=== PATIENT | female | born 1965 | race Caucasian/White ===

== ENCOUNTER 2022-05-16 11:20 | Inpatient (IN) ==
--- NOTE | 2022-05-16 11:52 | Emergency Department Note ---
Impression & Plan Acute hypoxemic respiratory failure, Elevated troponin, KARLA (acute kidney injury), Anemia, Elevated lactic acid level, Thrombocytopenia, Acute exacerbation of chronic obstructive pulmonary disease ED Provider Note NAME: CYNTHIA SIMON AGE: 56 SEX: F : 1965 ARRIVES VIA: Ambulance INFORMANT: Patient, ED PROVIDER(S): Alf Reagan MD Chief Complaint: Lethargy, possible withdrawal HPI: Patient presents via EMS on 4 L nasal cannula due to concern for some lethargy and associated possible withdrawal as the patient did not dosed her methadone. Patient denies any chest pains or shortness of breath. Patient does admit to drinking alcohol last evening as well as taking extra Xanax. Patient states that she was taking it because she felt depressed. The patient did not take it with the intent to try to harm her self. Patient denies any leg swelling or calf pain. Patient does have a history of COPD. The patient is a smoker. Patient denies any falls or trauma. Patient does admit some vomiting last evening. ROS: See HPI for pertinent positives and negatives. A total of 10 systems were reviewed and otherwise negative. Past medical history: See below Surgical history: See below Social history: See below Physical Exam: GENERAL: Fatigued in appearance, EYE EXAM: Normal conjunctiva. PERRL, no anisocoria and EOM's grossly intact w/o pain. Oropharynx: Poor dentition. NECK: Supple, no nuchal rigidity, no adenopathy, non-tender. No signs of meningismus. FROM of the neck with good chin to chest and neck extension. No stridor. LUNGS: Coarse sounds and wheezes noted normal chest wall mechanics. HEART: NSR, no MRG. ABDOMEN: Abdomen soft, non-tender, normo-active bowel sounds, no masses, no r ebound or guarding. BACK: No CVA TTP. SKIN: No rashes and no bruising. UPPER EXTREMITIES: Upper extremities are grossly normal. LOWER EXTREMITIES: Grossly normal, no edema. NEURO EXAM: Easily arousable, follows commands, cranial nerves II-XII grossly intact, normal speech, moves all 4 extremities. Differential diagnoses: Reactive airway disease, pneumonia, pneumothorax, COPD, CHF, infections, cardiac ischemia, pulmonary embolism, musculoskeletal, gastrointestinal, as well as other pathologies. Course: Patient was seen and evaluated the bedside. Full history physical exam was performed. EKG interpreted by me Normal sinus rhythm, rate of 83, normal intervals, normal axis, no obvious ST elevations. Nonspecific ST abnormality noted. No prior EKGs for comparison Imaging Studies: See Below Cardiac monitoring: An order was placed for continuous cardiac monitoring. The monitor shows a rate of 85 with sinus rhythm. MDM: Patient presents due to concern for possible withdrawal and lethargy. Patient on room air was 75%. Patient also had vomited last evening in the setting of alcohol and benzodiazepine use. Possibility of aspiration. Patient does have a history of COPD and is a smoker with some wheezes. The patient was ordered blood work VBG troponin empiric antibiotics blood cultures and a lactate. The patient did have difficulty with IV stick. Patient was placed on BiPAP. She was also given a dose of Narcan. Narcan did make the patient more restless and caused an episode of vomiting. No aspiration as patient was able to take the mask off. Patient was given several rounds of Ativan for her restlessness. Patient further tolerated the BiPAP thereafter. Patient easily arousable. Patient did become more restless with the Narcan. Patient was given additional Ativan. Patient blood work was difficult to obtain but another IV was established. The patient has a white count of 6 with a hemoglobin of 7.9. Platelet count is low. Patient's ABG shows a pH of 7 3 with a PCO2 of 64. The patient does have mild kidney dysfunction with a creat of 1.8. Patient's initial lactate E. Patient was ordered additional IV fluids. The patient's calcium and magnesium were low and were ordered for replacement. Patient's initial troponin of 611. The patient has no abdominal pain and denies any shortness of breath or chest pains. Patient did have a rectal exam with roving weight gauger nurse Nereida which was negative. Patient has shown clinical improvement on the BiPAP. Patient did receive the empiric antibiotics. I did speak with the on-call hospitalist PAYAL Fitzgerald and the patient was admitted by Dr. Mercado. Critical Care: I have personally spent 122 minutes of critical care time in direct management of this patient. This includes bedside care, interpretation of diagnostic studies, and testing, discussion with consultants, patient, and family members, and other require inpatient management activities. This 122 minutes is in excess of all separately billable procedures. Past Med/Surg History Medical History COPD (chronic obstructive pulmonary disease) GERD (gastroesophageal reflux disease) Hepatitis C test positive HTN (hypertension) Lactic acidosis Methadone maintenance therapy patient Recurrent major depressive disorder Tobacco abuse Surgical History Status post total hip replacement, right Family History Other Family history non-contributory Social History Smoking Status: Current some day smoker Tobacco Type: Cigarettes Hx Alcohol Use: Yes Hx Substance Use: Yes Feels Safe at Home: Yes Allergies Allergies Allergy/AdvReac Type Severity Reaction Status Date / Time No Known Allergies Allergy Verified 05/16/22 16:53 Home Meds Home Medications Medication Instructions Recorded Confirmed amlodipine 10 mg tablet 10 mg PO DAILY 05/16/22 05/16/22 duloxetine 30 mg capsule,delayed 30 mg PO DAILY 05/16/22 05/16/22 release hydroxyzine HCl 25 mg tablet 25 - 50 mg PO HS PRN Insomnia 05/16/22 05/16/22 methadone 40 mg soluble tablet 106 mg PO DAILY 05/16/22 05/16/22 metoprolol succinate 25 mg 25 mg PO BID 05/16/22 05/16/22 tablet,extended release 24 hr omeprazole 20 mg capsule,delayed 20 mg PO DAILY 05/16/22 05/16/22 release Results & Data (ED) Vital Signs Vital Signs - 24 hr 05/16/22 11:30 05/16/22 11:30 05/16/22 12:22 Temperature 36.7 C Temperature Source Oral Pulse Rate 82 79 Pulse Rate [Right Finger] Pulse Rate from SpO2 Sensor Pulse Rhythm Regular Pulse Rhythm [Right Finger] Pulse Strength Normal Pulse Strength [Right Finger] Respiratory Rate 20 22 Respiratory Effort / Characteristics Non-Labored Spontaneous Respiratory Depth Normal Normal Respiratory Pattern Regular Regular Blood Pressure 95/61 L Blood Pressure [Right Arm] Blood Pressure Mean 72 Blood Pressure Mean [Right Arm] Blood Pressure Position Lying Blood Pressure Position [Right Arm] Pulse Oximetry 98 75 L 98 Oxygen Delivery Method Nasal Cannula Nasal Cannula Oxygen Flow Rate 5 0 Fraction of Inspired Oxygen 35 SaO2/FiO2 Ratio Sepsis Recent Fever Within 48 Hours No Sepsis New/Unexplained Change in Mental Status No Sepsis Action Taken by Nursing No Action Required Oxygen Flow Rate - Titration 5 Pulse Oximetry Post Tiitration 98 05/16/22 12:25 05/16/22 14:00 05/16/22 14:56 Temperature Temperature Source Pulse Rate 86 Pulse Rate [Right Finger] 80 82 Pulse Rate from SpO2 Sensor Pulse Rhythm Pulse Rhythm [Right Finger] Regular Pulse Strength Pulse Strength [Right Finger] Normal Respiratory Rate 22 18 Respiratory Effort / Characteristics Non-Labored Spontaneous Non-Labored Respiratory Depth Normal Respiratory Pattern Regular Blood Pressure Blood Pressure [Right Arm] 115/58 L Blood Pressure Mean Blood Pressure Mean [Right Arm] 77 Blood Pressure Position Blood Pressure Position [Right Arm] Lying Pulse Oximetry 98 95 96 Oxygen Delivery Method BiPAP BiPAP BiPAP Oxygen Flow Rate Fraction of Inspired Oxygen 35 37 37 SaO2/FiO2 Ratio 256 259 Sepsis Recent Fever Within 48 Hours Sepsis New/Unexplained Change in Mental Status Sepsis Action Taken by Nursing Oxygen Flow Rate - Titration Pulse Oximetry Post Tiitration 05/16/22 12:30 05/16/22 12:40 05/16/22 12:50 Temperature Temperature Source Pulse Rate 76 85 87 Pulse Rate [Right Finger] Pulse Rate from SpO2 Sensor 84 Pulse Rhythm Pulse Rhythm [Right Finger] Pulse Strength Pulse Strength [Right Finger] Respiratory Rate 21 35 H 16 Respiratory Effort / Characteristics Respiratory Depth Respiratory Pattern Blood Pressure Blood Pressure [Right Arm] Blood Pressure Mean Blood Pressure Mean [Right Arm] Blood Pressure Position Blood Pressure Position [Right Arm] Pulse Oximetry 95 Oxygen Delivery Method Oxygen Flow Rate Fraction of Inspired Oxygen SaO2/FiO2 Ratio Sepsis Recent Fever Within 48 Hours Sepsis New/Unexplained Change in Mental Status Sepsis Action Taken by Nursing Oxygen Flow Rate - Titration Pulse Oximetry Post Tiitration 05/16/22 13:00 05/16/22 13:10 05/16/22 14:00 Temperature Temperature Source Pulse Rate 87 89 89 Pulse Rate [Right Finger] Pulse Rate from SpO2 Sensor Pulse Rhythm Pulse Rhythm [Right Finger] Pulse Strength Pulse Strength [Right Finger] Respiratory Rate 21 27 H 27 H Respiratory Effort / Characteristics Respiratory Depth Respiratory Pattern Blood Pressure 115/58 L Blood Pressure [Right Arm] Blood Pressure Mean 77 Blood Pressure Mean [Right Arm] Blood Pressure Position Blood Pressure Position [Right Arm] Pulse Oximetry 100 Oxygen Delivery Method Oxygen Flow Rate Fraction of Inspired Oxygen SaO2/FiO2 Ratio Sepsis Recent Fever Within 48 Hours Sepsis New/Unexplained Change in Mental Status Sepsis Action Taken by Nursing Oxygen Flow Rate - Titration Pulse Oximetry Post Tiitration 05/16/22 15:00 Temperature Temperature Source Pulse Rate 81 Pulse Rate [Right Finger] Pulse Rate from SpO2 Sensor Pulse Rhythm Pulse Rhythm [Right Finger] Pulse Strength Pulse Strength [Right Finger] Respiratory Rate 23 Respiratory Effort / Characteristics Respiratory Depth Respiratory Pattern Blood Pressure 107/62 Blood Pressure [Right Arm] Blood Pressure Mean 77 Blood Pressure Mean [Right Arm] Blood Pressure Position Blood Pressure Position [Right Arm] Pulse Oximetry 93 Oxygen Delivery Method Oxygen Flow Rate Fraction of Inspired Oxygen SaO2/FiO2 Ratio Sepsis Recent Fever Within 48 Hours Sepsis New/Unexplained Change in Mental Status Sepsis Action Taken by Nursing Oxygen Flow Rate - Titration Pulse Oximetry Post Tiitration Home Medications Current Medication List: was personally reviewed by me Laboratory Data Attestation: I reviewed the patient's lab results. Result diagrams: 05/16/22 13:09 05/16/22 13:09 Lab Results 05/16/22 05/16/22 05/16/22 Range/Units 12:26 12:36 13:09 WBC 6.88 (4.8-10.8) K/ul RBC 2.66 L (3.93-5.22) M/uL Hgb 7.9 L (12.0-16.0) g/dl Hct 27.6 L (34.1-44.9) % MCV 103.8 H (80.0-100.0) fL MCH 29.7 (25.0-34.0) pg MCHC 28.6 L (32.0-36.0) g/dL RDW Std Deviation 70.0 H (36.4-46.3) fL RDW Coeff of Cee 18.5 H (11.5-14.5) % Plt Count 45 L (130-400) K/uL MPV 10.1 (9.4-12.3) fL Immature Gran % (Auto) 1.5 % Neut % (Auto) 80.1 % Lymph % (Auto) 9.9 % [place] % (Auto) 8.4 % Eos % (Auto) 0.0 % Baso % (Auto) 0.1 % Neut # (Auto) 5.51 (1.4-6.5) K/uL Lymph # (Auto) 0.68 L (1.2-3.4) K/uL [place] # (Auto) 0.58 (0.24-0.82) K/uL Eos # (Auto) 0.00 (0-0.50) K/uL Baso # (Auto) 0.01 (0-0.2) K/uL Immature Gran # (Auto) 0.10 H (0.00-0.02) K/uL Absolute Nucleated RBC 0.06 H (0-0) K/uL Nucleated RBC % (auto) 0.9 % Echinocytes 1+ Peripher Smr Path Cons ABG pH ABG pCO2 ABG pO2 ABG HCO3 ABG O2 Saturation ABG Base Excess Shawn Test Barometric Pressure Oxygen Given Sodium (136-145) mmol/L Potassium (3.5-5.1) mmol/L Chloride (98-107) mmol/L Carbon Dioxide (21-32) mmol/L Anion Gap (3-11) BUN (6-23) mg/dl Creatinine (0.6-1.2) mg/dl Est Cr Clr Drug Dosing ml/min Est GFR ( Amer) ml/min Est GFR (Non-Af Amer) ml/min BUN/Creatinine Ratio (10-20) Glucose (70-99(Fasting)) mg/dl Lactate (0.4-2.0) mmol/L Calcium (8.5-10.1) mg/dl Magnesium (1.7-2.4) mg/dl Iron 23 L (35-150) mcg/dl Transferrin 365 H (200-360) mg/dl Ferritin 55.5 (8-388) ng/ml Total Bilirubin (0.2-1.0) mg/dl AST (13-39) U/L ALT (7-52) U/L Alkaline Phosphatase (34-104) U/L Troponin I High Sens (0-14) pg/ml Total Protein (6.0-8.3) gm/dl Albumin (3.4-5.0) gm/dl Globulin (2.5-4.0) gm/dl Albumin/Globulin Ratio (0.9-2) Procalcitonin (0-0.5) ng/ml Salicylates (3.0-30) mg/dl Acetaminophen (10-30) ug/ml Ethyl Alcohol mg/dL (<10.0) mg/dl Anaplasma Smear See Comment SARS-CoV-2 (PCR) NEGATIVE (Negative) Influenza Type A (PCR) Negative (Neg) Influenza Type B (PCR) Negative (Neg) RSV (RT-PCR) Negative (Neg) 05/16/22 05/16/22 05/16/22 Range/Units 13:09 13:09 13:43 WBC (4.8-10.8) K/ul RBC (3.93-5.22) M/uL Hgb (12.0-16.0) g/dl Hct (34.1-44.9) % MCV (80.0-100.0) fL MCH (25.0-34.0) pg MCHC (32.0-36.0) g/dL RDW Std Deviation (36.4-46.3) fL RDW Coeff of Cee (11.5-14.5) % Plt Count (130-400) K/uL MPV (9.4-12.3) fL Immature Gran % (Auto) % Neut % (Auto) % Lymph % (Auto) % [place] % (Auto) % Eos % (Auto) % Baso % (Auto) % Neut # (Auto) (1.4-6.5) K/uL Lymph # (Auto) (1.2-3.4) K/uL [place] # (Auto) (0.24-0.82) K/uL Eos # (Auto) (0-0.50) K/uL Baso # (Auto) (0-0.2) K/uL Immature Gran # (Auto) (0.00-0.02) K/uL Absolute Nucleated RBC (0-0) K/uL Nucleated RBC % (auto) % Echinocytes Peripher Smr Path Cons ABG pH ABG pCO2 ABG pO2 ABG HCO3 ABG O2 Saturation ABG Base Excess Shawn Test Barometric Pressure Oxygen Given Sodium 142 (136-145) mmol/L Potassium 3.9 (3.5-5.1) mmol/L Chloride 96 L (98-107) mmol/L Carbon Dioxide 23 (21-32) mmol/L Anion Gap 23 H (3-11) BUN 21 (6-23) mg/dl Creatinine 1.80 H (0.6-1.2) mg/dl Est Cr Clr Drug Dosing 44.8 ml/min Est GFR ( Amer) 36.3 ml/min Est GFR (Non-Af Amer) 31.4 ml/min BUN/Creatinine Ratio 11.7 (10-20) Glucose 123 H (70-99(Fasting)) mg/dl Lactate 5.3 H* (0.4-2.0) mmol/L Calcium 8.2 L (8.5-10.1) mg/dl Magnesium 1.5 L (1.7-2.4) mg/dl Iron (35-150) mcg/dl Transferrin (200-360) mg/dl Ferritin (8-388) ng/ml Total Bilirubin 0.9 (0.2-1.0) mg/dl AST 62 H (13-39) U/L ALT 27 (7-52) U/L Alkaline Phosphatase 120 H (34-104) U/L Troponin I High Sens 611.5 H* (0-14) pg/ml Total Protein 6.4 (6.0-8.3) gm/dl Albumin 3.1 L (3.4-5.0) gm/dl Globulin 3.3 (2.5-4.0) gm/dl Albumin/Globulin Ratio 0.9 (0.9-2) Procalcitonin (0-0.5) ng/ml Salicylates (3.0-30) mg/dl Acetaminophen (10-30) ug/ml Ethyl Alcohol mg/dL (<10.0) mg/dl Anaplasma Smear Cancelled SARS-CoV-2 (PCR) (Negative) Influenza Type A (PCR) (Neg) Influenza Type B (PCR) (Neg) RSV (RT-PCR) (Neg) 05/16/22 05/16/22 05/16/22 Range/Units 13:43 14:32 14:32 WBC (4.8-10.8) K/ul RBC (3.93-5.22) M/uL Hgb (12.0-16.0) g/dl Hct (34.1-44.9) % MCV (80.0-100.0) fL MCH (25.0-34.0) pg MCHC (32.0-36.0) g/dL RDW Std Deviation (36.4-46.3) fL RDW Coeff of Cee (11.5-14.5) % Plt Count (130-400) K/uL MPV (9.4-12.3) fL Immature Gran % (Auto) % Neut % (Auto) % Lymph % (Auto) % [place] % (Auto) % Eos % (Auto) % Baso % (Auto) % Neut # (Auto) (1.4-6.5) K/uL Lymph # (Auto) (1.2-3.4) K/uL [place] # (Auto) (0.24-0.82) K/uL Eos # (Auto) (0-0.50) K/uL Baso # (Auto) (0-0.2) K/uL Immature Gran # (Auto) (0.00-0.02) K/uL Absolute Nucleated RBC (0-0) K/uL Nucleated RBC % (auto) % Echinocytes Peripher Smr Path Cons Cancelled ABG pH ABG pCO2 ABG pO2 ABG HCO3 ABG O2 Saturation ABG Base Excess Shawn Test Barometric Pressure Oxygen Given Sodium (136-145) mmol/L Potassium (3.5-5.1) mmol/L Chloride (98-107) mmol/L Carbon Dioxide (21-32) mmol/L Anion Gap (3-11) BUN (6-23) mg/dl Creatinine (0.6-1.2) mg/dl Est Cr Clr Drug Dosing ml/min Est GFR ( Amer) ml/min Est GFR (Non-Af Amer) ml/min BUN/Creatinine Ratio (10-20) Glucose (70-99(Fasting)) mg/dl Lactate (0.4-2.0) mmol/L Calcium (8.5-10.1) mg/dl Magnesium (1.7-2.4) mg/dl Iron (35-150) mcg/dl Transferrin (200-360) mg/dl Ferritin (8-388) ng/ml Total Bilirubin (0.2-1.0) mg/dl AST (13-39) U/L ALT (7-52) U/L Alkaline Phosphatase (34-104) U/L Troponin I High Sens (0-14) pg/ml Total Protein (6.0-8.3) gm/dl Albumin (3.4-5.0) gm/dl Globulin (2.5-4.0) gm/dl Albumin/Globulin Ratio (0.9-2) Procalcitonin (0-0.5) ng/ml Salicylates < 3.0 L (3.0-30) mg/dl Acetaminophen < 3 L (10-30) ug/ml Ethyl Alcohol mg/dL < 10.0 (<10.0) mg/dl Anaplasma Smear SARS-CoV-2 (PCR) (Negative) Influenza Type A (PCR) (Neg) Influenza Type B (PCR) (Neg) RSV (RT-PCR) (Neg) 05/16/22 05/16/22 05/16/22 Range/Units 14:32 14:33 15:15 WBC (4.8-10.8) K/ul RBC (3.93-5.22) M/uL Hgb (12.0-16.0) g/dl Hct (34.1-44.9) % MCV (80.0-100.0) fL MCH (25.0-34.0) pg MCHC (32.0-36.0) g/dL RDW Std Deviation (36.4-46.3) fL RDW Coeff of Cee (11.5-14.5) % Plt Count (130-400) K/uL MPV (9.4-12.3) fL Immature Gran % (Auto) % Neut % (Auto) % Lymph % (Auto) % [place] % (Auto) % Eos % (Auto) % Baso % (Auto) % Neut # (Auto) (1.4-6.5) K/uL Lymph # (Auto) (1.2-3.4) K/uL [place] # (Auto) (0.24-0.82) K/uL Eos # (Auto) (0-0.50) K/uL Baso # (Auto) (0-0.2) K/uL Immature Gran # (Auto) (0.00-0.02) K/uL Absolute Nucleated RBC (0-0) K/uL Nucleated RBC % (auto) % Echinocytes Peripher Smr Path Cons ABG pH Cancelled ABG pCO2 Cancelled ABG pO2 Cancelled ABG HCO3 Cancelled ABG O2 Saturation Cancelled ABG Base Excess Cancelled Shawn Test Cancelled Barometric Pressure Cancelled Oxygen Given Cancelled Sodium (136-145) mmol/L Potassium (3.5-5.1) mmol/L Chloride (98-107) mmol/L Carbon Dioxide (21-32) mmol/L Anion Gap (3-11) BUN (6-23) mg/dl Creatinine (0.6-1.2) mg/dl Est Cr Clr Drug Dosing ml/min Est GFR ( Amer) ml/min Est GFR (Non-Af Amer) ml/min BUN/Creatinine Ratio (10-20) Glucose (70-99(Fasting)) mg/dl Lactate 7.7 H* (0.4-2.0) mmol/L Calcium (8.5-10.1) mg/dl Magnesium (1.7-2.4) mg/dl Iron (35-150) mcg/dl Transferrin (200-360) mg/dl Ferritin (8-388) ng/ml Total Bilirubin (0.2-1.0) mg/dl AST (13-39) U/L ALT (7-52) U/L Alkaline Phosphatase (34-104) U/L Troponin I High Sens (0-14) pg/ml Total Protein (6.0-8.3) gm/dl Albumin (3.4-5.0) gm/dl Globulin (2.5-4.0) gm/dl Albumin/Globulin Ratio (0.9-2) Procalcitonin 0.29 (0-0.5) ng/ml Salicylates (3.0-30) mg/dl Acetaminophen (10-30) ug/ml Ethyl Alcohol mg/dL (<10.0) mg/dl Anaplasma Smear SARS-CoV-2 (PCR) (Negative) Influenza Type A (PCR) (Neg) Influenza Type B (PCR) (Neg) RSV (RT-PCR) (Neg) 05/16/22 Range/Units 15:15 WBC (4.8-10.8) K/ul RBC (3.93-5.22) M/uL Hgb (12.0-16.0) g/dl Hct (34.1-44.9) % MCV (80.0-100.0) fL MCH (25.0-34.0) pg MCHC (32.0-36.0) g/dL RDW Std Deviation (36.4-46.3) fL RDW Coeff of Cee (11.5-14.5) % Plt Count (130-400) K/uL MPV (9.4-12.3) fL Immature Gran % (Auto) % Neut % (Auto) % Lymph % (Auto) % [place] % (Auto) % Eos % (Auto) % Baso % (Auto) % Neut # (Auto) (1.4-6.5) K/uL Lymph # (Auto) (1.2-3.4) K/uL [place] # (Auto) (0.24-0.82) K/uL Eos # (Auto) (0-0.50) K/uL Baso # (Auto) (0-0.2) K/uL Immature Gran # (Auto) (0.00-0.02) K/uL Absolute Nucleated RBC (0-0) K/uL Nucleated RBC % (auto) % Echinocytes Peripher Smr Path Cons ABG pH Cancelled ABG pCO2 Cancelled ABG pO2 Cancelled ABG HCO3 Cancelled ABG O2 Saturation Cancelled ABG Base Excess Cancelled Shawn Test Cancelled Barometric Pressure Cancelled Oxygen Given Cancelled Sodium (136-145) mmol/L Potassium (3.5-5.1) mmol/L Chloride (98-107) mmol/L Carbon Dioxide (21-32) mmol/L Anion Gap (3-11) BUN (6-23) mg/dl Creatinine (0.6-1.2) mg/dl Est Cr Clr Drug Dosing ml/min Est GFR ( Amer) ml/min Est GFR (Non-Af Amer) ml/min BUN/Creatinine Ratio (10-20) Glucose (70-99(Fasting)) mg/dl Lactate (0.4-2.0) mmol/L Calcium (8.5-10.1) mg/dl Magnesium (1.7-2.4) mg/dl Iron (35-150) mcg/dl Transferrin (200-360) mg/dl Ferritin (8-388) ng/ml Total Bilirubin (0.2-1.0) mg/dl AST (13-39) U/L ALT (7-52) U/L Alkaline Phosphatase (34-104) U/L Troponin I High Sens (0-14) pg/ml Total Protein (6.0-8.3) gm/dl Albumin (3.4-5.0) gm/dl Globulin (2.5-4.0) gm/dl Albumin/Globulin Ratio (0.9-2) Procalcitonin (0-0.5) ng/ml Salicylates (3.0-30) mg/dl Acetaminophen (10-30) ug/ml Ethyl Alcohol mg/dL (<10.0) mg/dl Anaplasma Smear SARS-CoV-2 (PCR) (Negative) Influenza Type A (PCR) (Neg) Influenza Type B (PCR) (Neg) RSV (RT-PCR) (Neg) Administered Medications Doxycycline Hyclate 100 mg/ (Dextrose) 110 mls @ 50 mls/hr IV Q12H DAVID Stop: 05/30/22 16:59 Last Admin: 05/16/22 17:48 Dose: 50 mls/hr Documented By: HENRI Lactated Ringer's (Lr) 1,000 mls @ 125 mls/hr IV .Q8H DAVID Stop: 06/15/22 16:59 Last Admin: 05/16/22 17:47 Dose: 125 mls/hr Documented By: HENRI Discontinued Medications Albuterol (Albut/Ipratrop 3mg/0.5mg Neb 3 Ml Vial) 12 ml INH ONE STA Stop: 05/16/22 12:00 Last Admin: 05/16/22 12:29 Dose: 12 ml Documented By: KYLAH Sodium Chloride (Nss 1000ml) 1,000 mls @ 999 mls/hr IV .Q1H1M DAVID Stop: 05/16/22 13:00 Last Infusion: 05/16/22 14:53 Dose: 0 mls/hr Documented By: Admin: 05/16/22 12:34 Dose: 999 mls/hr Documented By: JOHNY Magnesium Sulfate/Dextrose (Magnesium Sulfate / D5w) 1 gm in 100 mls @ 100 mls/ hr IV NOW STA Stop: 05/16/22 12:59 Last Infusion: 05/16/22 14:52 Dose: 0 mls/hr Documented By: Admin: 05/16/22 12:33 Dose: 100 mls/hr Documented By: JOHNY Piperacillin Sod/Tazobactam Sod (Zosyn) 4.5 gm in 120 mls @ 240 mls/hr IV NOW ONE Stop: 05/16/22 12:32 Last Infusion: 05/16/22 16:28 Dose: 0 mls/hr Documented By: Admin: 05/16/22 14:00 Dose: 240 mls/hr Documented By: SAL Sodium Chloride (Nss 1000ml) 500 mls @ 999 mls/hr IV .Q31M ONE Stop: 05/16/22 14:46 Last Infusion: 05/16/22 16:00 Dose: 0 mls/hr Documented By: Admin: 05/16/22 15:29 Dose: 999 mls/hr Documented By: HENRI Calcium Gluconate () 1,000 mg in 60 mls @ 240 mls/hr IV NOW STA Stop: 05/16/22 14:31 Last Infusion: 05/16/22 15:44 Dose: 0 mls/hr Documented By: Admin: 05/16/22 15:29 Dose: 240 mls/hr Documented By: HENRI Sodium Chloride (Nss 1000ml) 1,000 mls @ 999 mls/hr IV .Q1H1M ONE Stop: 05/16/22 15:38 Last Infusion: 05/16/22 16:30 Dose: 0 mls/hr Documented By: Admin: 05/16/22 15:29 Dose: 999 mls/hr Documented By: HENRI Magnesium Sulfate/Dextrose (Magnesium Sulfate / D5w) 1 gm in 100 mls @ 100 mls/hr IV NOW STA Stop: 05/16/22 16:28 Last Infusion: 05/16/22 17:12 Dose: 0 mls/hr Documented By: Admin: 05/16/22 16:12 Dose: 100 mls/hr Documented By: HENRI Lactated Ringer's (Lr) 500 mls @ 999 mls/hr IV .Q31M ONE Stop: 05/16/22 17:09 Last Infusion: 05/16/22 18:52 Dose: 0 mls/hr Documented By: Admin: 05/16/22 17:47 Dose: 999 mls/hr Documented By: HENRI Lorazepam (Lorazepam 2 Mg/2 Ml Syr) 1 mg IV NOW STA; Protocol Stop: 05/16/22 12:52 Last Admin: 05/16/22 12:55 Dose: 1 mg Documented By: SAL Lorazepam (Lorazepam 2 Mg/2 Ml Syr) Confirm Administered Dose 2 mg .ROUTE .STK- MED ONE Stop: 05/16/22 12:53 Last Admin: 05/16/22 13:19 Dose: Not Given Documented By: AP Lorazepam (Lorazepam 2 Mg/2 Ml Syr) 1 mg IV NOW STA; Protocol Stop: 05/16/22 13:04 Last Admin: 05/16/22 13:10 Dose: 1 mg Documented By: AP Methylprednisolone (Methylprednisolone 125 Mg/2 Ml Vial) 125 mg IV NOW STA Stop: 05/16/22 12:00 Last Admin: 05/16/22 12:33 Dose: 125 mg Documented By: TW Naloxone HCl (Naloxone Hcl 0.4 Mg/1 Ml Vial/Carp) 0.4 mg IV NOW STA Stop: 05/16/22 12:06 Last Admin: 05/16/22 12:32 Dose: 0.4 mg Documented By: TW Naloxone HCl (Naloxone Hcl 0.4 Mg/1 Ml Vial/Carp) 0.4 mg IM NOW STA Stop: 05/16/22 12:20 Last Admin: 05/16/22 12:34 Dose: Not Given Documented By: TW Ondansetron HCl (Ondansetron Inj 2 Mg/Ml 2 Ml Vial) 4 mg IV NOW STA Stop: 05/16/22 12:48 Last Admin: 05/16/22 13:00 Dose: 4 mg Documented By: AP Imaging Data Radiologist's Impression: Chest X-Ray 05/16/22 00:00 XR chest 1V portable HISTORY: 56 years-old Female Dyspnea acute shortness of breath COMPARISON: None TECHNIQUE: Portable AP view of the chest FINDINGS: Cardiac silhouette is mildly enlarged. Pulmonary vascular congestion. Atherosclerosis of the thoracic aorta. There is no pneumothorax or large pleural effusion. Mild blunting of the lateral left costophrenic angle. Degenerative changes of the shoulders and spine. IMPRESSION: 1. Cardiomegaly with pulmonary vascular congestion. 2. Blunting of the lateral left costophrenic angle, likely secondary to atelectasis versus scarring. ACT 112: Negative or not required by law. The above report was generated using voice recognition software. It may contain grammatical, syntax or spelling errors. Electronically signed by: Raman Le M.D. 05/16/2022 1:55 PM Abdomen/Pelvis CT 05/16/22 15:[address] WITHOUT CONTRAST CT DOSE: 2334.85 mGy.cm HISTORY: sepsis, right upper quadrant abdominal pain TECHNIQUE: Multiaxial CT images of the abdomen and pelvis were performed without contrast. A dose lowering technique was utilized adhering to the principles of ALARA. COMPARISON STUDY: None. FINDINGS: Patchy bibasilar densities are better appreciated on the same day bee st CT. There is a right total hip arthroplasty. No fractures within the visualized osseous structures. Focal area of intraluminal gas within the left common femoral vein. This is indeterminate but could be due to prior intravenous line insertion. Mild body wall edema is noted. Small amount of sludge/stones noted within the gallbladder. No gallbladder wall thickening. Hepatic steatosis. The unenhanced pancreas and adrenal glands are unremarkable. There are few splenic calcified granulomas. Mild calcified plaque within the normal caliber abdominal aorta. No retroperitoneal or pelvic lymphadenopathy. A 2.2 cm hypodense lesion within the left kidney. This is incompletely characterized on this noncontrast study. No renal or ureteral stones. No hydronephrosis. The bladder is decompressed by a Ernandez catheter. The uterus and bilateral adnexa are within normal limits. Suboptimal evaluation for bowel pathology due to the lack of intravenous and oral contrast. However, there is no definite bowel wall thickening or obstruction. Normal appendix. There is a 2.1 cm hypodense lesion within the right lower quadrant adjacent to the iliac vessels on image 339. This is indeterminate but favors a benign lesion. IMPRESSION: 1. Patchy bibasilar densities are better appreciated on the same day chest CT. 2. No definite bowel wall thickening or obstruction. 3. Normal appendix. 4. No hydronephrosis. 5. Hepatic steatosis. 6. Small amount of sludge/stones within the gallbladder. No definite gallbladder wall thickening. 7. A 2.2 cm hypodense lesion within the right kidney. This is incompletely characterized on this noncontrast study but statistically represents a cyst. Follow-up nonemergent renal ultrasound recommended for confirmation. 8. An indeterminate 2.1 cm hypodense lesion within the right lower quadrant adjacent to the leg vessels. This is likely benign. 6 month abdomen and pelvis CT follow-up recommended to ensure stability. 9. Intraluminal gas within the left common femoral vein. This may be related to prior intravenous line insertion. ACT 112: Positive. There are findings on this exam that require communication between the performing entity and the patient following Patient Test Result Inf ormation Act ([place] Act 112) guidelines. Electronically signed by: John Bowers M.D. 05/16/2022 5:[address] 05/16/22 15:15 CT chest diagnostic wo con CT DOSE: HISTORY: sepsis, resp failure TECHNIQUE: Multiaxial CT images of the chest were performed without contrast. A dose lowering technique was utilized adhering to the principles of ALARA. COMPARISON: None. FINDINGS: Partial opacification of the bilateral lower lobe distal bronchi with patchy bibasilar densities within the base of the lower lobes. This is concerning for a pneumonia and could be due to aspiration. No pneumothorax. No pleural effusions. There is a calcified granuloma within the right lower lobe. There is a 5 mm nodular density within the right lung apex on image 65. There are few focal nodular airspace opacities within the right middle lobe. There are patchy groundglass densities within the upper lobes posteriorly. This could represent a combination of dependent change and pneumonia. No suspicious lytic or blastic osseous lesions. There is normal, healed left anterior second rib fracture. Hepatic steatosis. Small amount of fluid within the nondistended esoph lin. No mediastinal or hilar lymphadenopathy. The heart is mildly enlarged. Mild calcified plaque within the normal caliber thoracic aorta. No pericardial effusion. The main pulmonary measures up to 3.6 and recent diameter consistent with pulmonary arterial hypertension. There is mild interlobular septal thickening seen within the lungs. This could represent mild congestive change. IMPRESSION: 1. Partial opacification of the distal bilateral lobe bronchi with patchy bibasilar densities. This favors a pneumonitis and could be due to aspiration. 2. Mild cardiomegaly with mild interlobular septal thickening suggestive of mild congestive change. 3. Mild pulmonary arterial hypertension. 4. A 5 mm nodule within the right lung apex which could be due to the inflammatory/infectious change. [address] follow-up recommended to ensure resolution. 5. Additional patchy densities within the upper lobes posteriorly which may represent a combination of the pneumonitis and dependent change. 6. Hepatic steatosis. ACT 112: Negative or not required by law. Electronically signed by: John Bowers M.D. 05/16/2022 5:28 PM Discharge Plan Visit Data Chief Complaint: Lethargic Stated Complaint: LETHARGIC, POSSIBLE WITHDRAWL ED Provider: Alf Reagan Discharge Problem: Acute hypoxemic respiratory failure, Elevated troponin, KARLA (acute kidney injury), Anemia, Elevated lactic acid level, Thrombocytopenia, Acute exacerbation of chronic obstructive pulmonary disease Patient Disposition: Admitted As Inpatient Discharge Instructions Interventions: ED Discharge Assessment Last Done: 05/16/22 18:20 : Anemia Qualifiers: Anemia type: unspecified type Qualified Code(s): D64.9 - Anemia, unspecified
[2022-05-16] MEDS ORDERED: methylPREDNISolone 125 MG/2 ML VIAL IV STA (11:59)
[2022-05-16] MEDS ORDERED: ALBUT/IPRATROP 3MG/0.5MG NEB 3 ML VIAL INH STA (11:59)
[2022-05-16] MEDS ORDERED: SODIUM CHLORIDE 0.9% 1000ML 1,000 ML IV SCH (12:00)
[2022-05-16] MEDS ORDERED: MAGNESIUM SULFATE / D5W 1 GM/100 ML BAG IV STA ×2 (12:00→15:29)
[2022-05-16] MEDS ORDERED: PIPERACILLIN/TAZOBACTAM 4.5 GM/120 ML BAG IV ONE (12:03)
[2022-05-16] MEDS ORDERED: NALOXONE HCL 0.4 MG/1 ML VIAL/CARP IV STA (12:05)
[2022-05-16] MEDS ORDERED: NALOXONE HCL 0.4 MG/1 ML VIAL/CARP IM STA (12:19)
[2022-05-16] MEDS ORDERED: ONDANSETRON INJ 2 MG/ML 2 ML VIAL IV STA (12:47)
[2022-05-16] MEDS ORDERED: LORazepam 2 MG/2 ML SYR IV STA ×2 (12:51→13:03)
[2022-05-16] MEDS ORDERED: LORazepam 2 MG/2 ML SYR ONE (12:52)
--- NOTE | 2022-05-16 13:45 | Electrocardiogram Report ---
Test Reason : Blood Pressure : / mmHG Vent. Rate : 083 BPM Atrial Rate : 083 BPM P-R Int : 130 ms QRS Dur : 078 ms QT Int : 388 ms P-R-T Axes : 072 077 088 degrees QTc Int : 455 ms Poor data quality, interpretation may be adversely affected Normal sinus rhythm Diffuse Minor Nonspecific ST abnormality Abnormal ECG No previous ECGs available Confirmed by James Monroe ([id number]) on 05/16/2022 1:44:53 PM Referred By: Confirmed By:James Monroe
[2022-05-16 13:52] LABS: Albumin Globulin Ratio 0.9 (0.9-2); Albumin Level 3.1 gm/dl (3.4-5.0); BUN Creatinine Ratio 11.7 (10-20); Bilirubin,Total 0.9 mg/dl (0.2-1.0); Calcium 8.2 mg/dl (8.5-10.1); Creatinine Clr Calc Pharmacy 44.8 ml/min; Est GFR (African American) 36.3 ml/min; Est GFR (Non-African American) 31.4 ml/min; Globulin 3.3 gm/dl (2.5-4.0); Magnesium 1.5 mg/dl (1.7-2.4); Potassium 3.9 mmol/L (3.5-5.1); Total Protein 6.4 gm/dl (6.0-8.3)
--- NOTE | 2022-05-16 13:56 | XRay Report ---
XR chest 1V portable HISTORY: 56 years-old Female Dyspnea acute shortness of breath COMPARISON: None TECHNIQUE: Portable AP view of the chest FINDINGS: Cardiac silhouette is mildly enlarged. Pulmonary vascular congestion. Atherosclerosis of the thoracic aorta. There is no pneumothorax or large pleural effusion. Mild blunting of the lateral left costoph renic angle. Degenerative changes of the shoulders and spine. IMPRESSION: 1. Cardiomegaly with pulmonary vascular congestion. 2. Blunting of the lateral left costophrenic angle, likely secondary to atelectasis versus scarring. ACT 112: Negative or not required by law. The above report was generated using voice recognition software. It may contain grammatical, syntax o r spelling errors. Electronically signed by: Raman Le M.D. 05/16/2022 1:55 PM
[2022-05-16 14:03] LABS: Troponin I High Sensitivity 611.5 pg/ml (0-14)
[2022-05-16 14:04] LABS: Influenza A virus by PCR Negative (Neg); Influenza B virus by PCR Negative (Neg); RSV by PCR Negative (Neg); SARS CoV2 RNA(COVID-19) InHosp NEGATIVE (Negative)
[2022-05-16] MEDS ORDERED: SODIUM CHLORIDE 0.9% 1000ML 500 ML IV ONE (14:16)
[2022-05-16] MEDS ORDERED: CALCIUM GLUCONATE 1,000 MG/60 ML BAG IV STA (14:17)
[2022-05-16] MEDS ORDERED: SODIUM CHLORIDE 0.9% 1000ML 1,000 ML IV ONE (14:38)
[2022-05-16 15:02] LABS: Acetaminophen < 3 ug/ml (10-30); Salicylate < 3.0 mg/dl (3.0-30)
[2022-05-16 16:08] LABS: Pregnancy Test, Urine Negative (Negative)
[2022-05-16 16:09] LABS: Appearance Urine Cloudy (Clear); Bacteria Urine Automated Negative (Negative); Blood Urine Negative (Negative); Color Urine Dark Yellow; Epithelial Cell Urine Auto >30 /lpf (0-5); Glucose Urine UA Negative (Negative); Ketones Urine Trace (Negative); Leukocyte Esterase Urine Negative (Negative); Nitrite Urine Negative (Negative); Protein Urine 1+ (Negative); Specific Gravity Urine 1.018 (1.000-1.030); Urobilinogen Urine Negative (Negative)
[2022-05-16 16:10] LABS: Bilirubin Urine 1+ (Negative)
--- NOTE | 2022-05-16 16:11 | History & Physical Report ---
Date of Service May 16, 2022 Assessment & Plan (1) Acute respiratory failure with hypoxia: (2) Elevated lactic acid level: Plan: Admit to ICU Patient presenting from home with reported lethargy by friend. Patient reports feeling nauseous and having 1 episode of vomiting this morning. In the ED, patient was hypoxic on room air at 75%, currently requiring BiPAP therapy. ABG pH 7.34, PCO2 64, PO2 81, HCO3 35; anion gap 23 Lactic acidosis likely contributing to elevated anion gap. Hx of COPD with wheezing on exam. Noted elevated CO2 on ABG with near normal pH, likely has chronic CO2 retention. S/p [id number] mg IV in ED, continue with Solu-Medrol 40 mg IV q8h. CXR without clear sign of infiltrate Initial lactate 5.3 --> 7.7 CT chest/ABD/pelvis No clear source for sepsis at this time, patient is afebrile without leukocytosis, normal procalcitonin. However given respiratory failure and significantly elevated lactate, will cover empirically with IV Zosyn. Check MRSA nasal swab. Due to new onset anemia and thrombocytopenia, will cover empirically for Lyme and Anaplasma. Lyme and Anaplasma testing pending. Continue IVF resuscitation and trend lactate (3) Elevated troponin: Plan: HS trop [address] changes, no reports of chest pain Likely due to demand ischemic Trend trop, resting echo (4) KARLA (acute kidney injury): Plan: Creat 1.8, baseline ~ 0.9 Ernandez in with adequate urine output IVF, follow renal functions (5) Thrombocytopenia: (6) Anemia: Plan: Hgb 7.9, previously 12.5 11/2020 Platelets 45K, previously 152K 11/2020 Stool Heme-negative in ED Iron deficiency noted Consider GI consult (7) Hepatitis C test positive: Plan: Hepatitis C antibody + 01/2021, has not been evaluated by GI (8) HTN (hypertension): Plan: Hold home amlodipine and metoprolol (9) GERD (gastroesophageal reflux disease): Plan: IV PPI (10) Methadone maintenance therapy patient: Plan: On methadone 106 mg daily, confirmed with [facility], last dose 05/15 (11) Recurrent major depressive disorder: Plan: Hold home duloxetine (12) DVT prophylaxis: Plan: SCDs due to anemia/thrombocytopenia History of Present Illness Chief Complaint: Altered mental status Primary Care Provider: Dr. Lockwood 56-year-old female with PMH COPD, HTN, GERD, methadone maintenance, osteoarthritis, depression, and other problems listed below who presents to the ED for evaluation of altered mental status. History is somewhat limited from the patient. She reports that she went to bed feeling well last evening. States that her friend was concerned about her this morning because she could not open her eyes. EMS was called and patient was brought to the ED for further evaluation. Patient admits to taking 1 Xanax tablet (dose unknown) last evening however she is not prescribed Xanax. This morning, patient reports she had nausea and 1 episode of vomiting. Denies hematemesis and coffee-ground emesis. Denies any recent bright red bleeding per rectum or dark tarry stools. No abdominal pain. In the ED, patient was hypoxic on room air at 75%. She is currently requiring BiPAP. Labs show Hgb 7.9, platelets 45K, lactate 5.3. Patient was given IVF, IV Zosyn, Narcan, IV Solu-Medrol, magnesium replacement, IV lorazepam, calcium replacement, nebulizer treatment. Allergies Allergy/AdvReac Type Severity Reaction Status Date / Time No Known Allergies Allergy Verified 05/16/22 16:53 Home Medications Medication Instructions Recorded Confirmed Type amlodipine 10 mg tablet 10 mg PO DAILY 05/16/22 05/16/22 History duloxetine 30 mg capsule,delayed 30 mg PO DAILY 05/16/22 05/16/22 History release hydroxyzine HCl 25 mg tablet 25 - 50 mg PO HS PRN Insomnia 05/16/22 05/16/22 History methadone 40 mg soluble tablet 106 mg PO DAILY 05/16/22 05/16/22 History metoprolol succinate 25 mg 25 mg PO BID 05/16/22 05/16/22 History tablet,extended release 24 hr omeprazole 20 mg capsule,delayed 20 mg PO DAILY 05/16/22 05/16/22 History release Past Med/Surg History Medical History COPD (chronic obstructive pulmonary disease) GERD (gastroesophageal reflux disease) Hepatitis C test positive HTN (hypertension) Lactic acidosis Methadone maintenance therapy patient Recurrent major depressive disorder Tobacco abuse Surgical History Status post total hip replacement, right Family History Other Family history non-contributory Social History Smoking Status: Current some day smoker Tobacco Type: Cigarettes Hx Alcohol Use: Yes Hx Substance Use: Yes Feels Safe at Home: Yes Review of Systems Review of Systems: ROS completed with patient however limited due to AMS Physical Exam Constitutional: WD/WN, vitals as above + ill appearing; no acute distress Eyes: PERRL, conjunctivae normal, anicteric sclerae ENMT: external ear and nose normal, oropharynx normal Mouth: + poor dentition Respiratory: normal respiratory effort; no respiratory distress Auscultation: + diminished lung sounds and + wheezes (Bilateral, expiratory) On BiPAP Cardiovascular: Rate/Rhythm: regular rate and regular rhythm Vessels: normal peripheral pulses Extremities: no edema Gastrointestinal (Abdomen): Inspection/Auscultation: normal bowel sounds Percussion/Palpation: + abdomen tender (Mild epigastric and RUQ) and abdomen soft; no hepatosplenomegaly Musculoskeletal: no cyanosis or clubbing, extremities motor strength 5/5 Skin: no rashes, warm and dry Neurologic: PERRL, EOMI, accommodation nl, no face palsy, no dysarthria Psychiatric: Orientation: alert, oriented to person and oriented to place; + not oriented to time Results & Data Results & Data ([facility]) Vital Signs (Past 12 Hours) Vital Signs Temp Pulse Pulse Resp BP BP Pulse Ox 05/16/22 14:56 86 96 05/16/22 14:00 82 18 115/58 L 95 05/16/22 12:25 80 22 98 05/16/22 12:22 79 22 98 05/16/22 11:30 75 L 05/16/22 11:30 36.7 C 82 20 95/61 L 98 O2 Del Method O2 Flow Rate FiO2 05/16/22 14:56 BiPAP 37 05/16/22 14:00 BiPAP 37 05/16/22 12:25 BiPAP 35 05/16/22 12:22 35 05/16/22 11:30 Nasal Cannula 0 05/16/22 11:30 Nasal Cannula 5 Laboratory Results Short CBC 05/16/22 Range/Units 13:09 WBC 6.88 (4.8-10.8) K/ul Hgb 7.9 L (12.0-16.0) g/dl Hct 27.6 L (34.1-44.9) % Plt Count 45 L (130-400) K/uL BMP 05/16/22 13:09 Sodium 142 Potassium 3.9 Chloride 96 L Carbon Dioxide 23 BUN 21 Creatinine 1.80 H Glucose 123 H Calcium 8.2 L Liver Function 05/16/22 Range/Units 13:09 Total Bilirubin 0.9 (0.2-1.0) mg/dl AST 62 H (13-39) U/L ALT 27 (7-52) U/L Alkaline Phosphatase 120 H (34-104) U/L Albumin 3.1 L (3.4-5.0) gm/dl Urine 05/16/22 Range/Units 15:45 Urine Color Dark Yellow Urine Appearance Cloudy A (Clear) Urine pH 5.0 (4.5-7.5) Ur Specific Neville 1.018 (1.000-1.030) Urine Protein 1+ H (Negative) Urine Glucose (UA) Negative (Negative) Diagnostic Findings Chest X-Ray 05/16/22 00:00 XR chest 1V portable HISTORY: 56 years-old Female Dyspnea acute shortness of breath COMPARISON: None TECHNIQUE: Portable AP view of the chest FINDINGS: Cardiac silhouette is mildly enlarged. Pulmonary vascular congestion. Atherosclerosis of the thoracic aorta. There is no pneumothorax or large pleural effusion. Mild blunting of the lateral left costophrenic angle. Degenerative changes of the shoulders and spine. IMPRESSION: 1. Cardiomegaly with pulmonary vascular congestion. 2. Blunting of the lateral left costophrenic angle, likely secondary to atelectasis versus scarring. ACT 112: Negative or not required by law. The above report was generated using voice recognition software. It may contain grammatical, syntax or spelling errors. Electronically signed by: Raman Le M.D. 05/16/2022 1:55 PM Code Status & VTE Plan Code Status Patient is a full code as per my discussion with her. VTE Prophylaxis Plan VTE Prophylaxis will be ordered: Yes Supervising Physician Co-Signing Physician Notes I have seen and examined the patient and have discussed the case with the provider above. I agree with the assessment and plan as stated. 56-year-old female who is a chronic methadone user, presents with acute respiratory failure with hypoxia and an elevated lactic acid level with a high anion gap metabolic acidosis. She also has acute kidney injury, hypertroponemia without chest pain, and acute thrombocytopenia and anemia. She denies fever. She is a chronic methadone user and the history is that she took a Xanax last night woke up this morning groggy and having to vomit. She reported vomiting that eased some periumbilical abdominal pain. She denies any fevers or chills and does not appear acutely infected. She has diffuse wheezing throughout all her lung phillips. She has facial swelling that is diffuse and has been present for at least one month. ABG is concerning for additional respiratory acidosis with a CO2 higher than expected. She does not appear to be tiring out and is able to give a good history however, she is not oriented to the date. After fluid resuscitation lactate is rising to 7 but later trended down to 2.5. White blood cell count is 6.9, anemia now present with a hemoglobin 7.9, hematocrit 28 and a MCV of 104. Platelets are now 40 5K with all cell lines normal in November 2020. INR is normal with a fibrinogen of 375. Iron deficiency is present. Troponin is 719. CK is 126. AST mildly elevated at 62. Urine test is negative. Chemistry panel reveals elevated creatinine to 1.9. FeNa is 0.4% suggesting prerenal etiology to acute kidney injury. ABG reveals presence of respiratory and metabolic acidosis with metabolic alkalosis. Calculated osmolarity is 291 and measured serum osmolarity is 301. This gives an osmolar gap of 10, likely explained by lactic acidosis. If this increases consider ingested alcohol. Chest CT was performed without contrast in the setting of acute renal failure and this revealed patchy bibasilar densities favoring a pneumonitis which could be due to aspiration. A diagnosis of pneumonitis fits her history of vomiting although she does not remember many details from last night and does not remember choking. This doesn't explain the new anemia and thrombocytopenia. There is a 5 mm nodule in the right lung apex which could be due to inflammatory/infectious change but a 6-month CT chest was recommended to ensure resolution. A CT of her abdomen and pelvis revealed some sludge and stones w ithin the gallbladder with no definite gallbladder wall thickening. She was empirically started on antibiotics and rickettsial panel was also ordered. She was admitted to the ICU with multiple systems affected and a very broad differential diagnosis which includes aspiration pneumonia, sepsis, TTP or ITP given acute thrombocytopenia and anemia. Cont solumedrol, Zosyn and doxy pending clinical improvement. Cont IVF and BIPAP. DO Rogelio
[2022-05-16 16:17] LABS: Base Excess ABG 6.5 mEq/L (-9-1.8); HCO3 ABG 35 mmol/L (19-24); Oxygen Saturation ABG 93.2 % (90-95); PCO2 ABG 64 mmHg (35-46); PO2 ABG 81 mmHg (80-95); pH ABG 7.34 (7.35-7.45)
[2022-05-16 16:19] LABS: Allen Test POS (Pos)
[2022-05-16 16:33] LABS: Creatinine Urine Random 156.6 mg/dl; Protein Creatinine Ratio Urine 0.6 (0-0.2); Total Protein Urine Random 94.7 mg/dl (0-11.9)
[2022-05-16] MEDS ORDERED: LACTATED RINGER'S 500 ML IV ONE (16:39)
[2022-05-16 16:43] LABS: Amphetamines+Metham, Urine Neg (Neg); Barbiturates, Urine Neg (Neg); Benzodiazepine, Urine Pos (Neg); Cocaine, Urine Neg (Neg); MDMA (Ecstacy), Urine Neg (Neg); Methadone, Urine Pos (Neg); Opiate, Urine Neg (Neg); Phencyclidine, Urine Neg (Neg)
[2022-05-16 16:58] LABS: Ferritin 55.5 ng/ml (8-388)
--- NOTE | 2022-05-16 17:21 | Critical Care Consultation ---
Date of Consultation May 16, 2022 Assessment & Plan (1) Acute respiratory failure with hypoxia: (2) Elevated lactic acid level: (3) KARLA (acute kidney injury): (4) Lactic acidosis: (5) Thrombocytopenia: (6) Anemia: Plan 56-year-old female with a history of opiate dependence, methadone use, obesity, tobacco abuse, GERD, hypertension and likely COPD presenting to the hospital due to altered mental status. She is found to be in KARLA with a lactic acidosis. Neurologic: Mental status is improving. CT head without contrast ordered. Likely component of hypercapnic respiratory failure from oversedation given that the patient was taking benzodiazepines and methadone at home. She also received Ativan in the emergency department. She is status post Narcan x1. Monitor closely in the ICU and avoid over sedating medications. Monitor for signs of withdrawal. Consider the use of Precedex if withdrawal symptoms worsen. We will initiate high-dose thiamine. Pulmonary: Acute hypercapnic respiratory failure likely secondary to sedation and component of obstructive lung disease. We will start the patient on Solu-Medrol 40 mg three times daily. Likely component of aspiration pneumonitis. Wean off BiPAP when able. CT chest personally reviewed with signs of aspiration. Cardiovascular: Hemodynamically stable at the present time. Maintain maps above 65 mmHg. Troponin mildly elevated likely related to demand ischemia. Continue to trend. Gastrointestinal: NPO. AST mildly elevated. Alkaline phosphatase also mildly elevated. CT abdomen without acute pathology. Renal: KARLA likely secondary to hypovolemia. Continue with crystalloid infusion. Lactic acidosis without clear etiology, but likely component of respiratory failure and dehydration. Continue to trend. Ingestion may also be playing a role. CK unremarkable. Infectious disease: Continue empiric antibiotics. Follow blood cultures. Procalcitonin 0.29. Hematologic: Anemia with thrombocytopenia. Anaplasmosis and babesiosis labs pending. Continue with doxycycline. Peripheral smear pending. We will check fibrinogen level. Check INR. Differential broad including sepsis induced coagulopathy, TTP, ITP, atypical HUS and other. Transfuse if hemoglobin less than 7. Endocrine: TSH unremarkable VTE prophylaxis: Holding due to anemia and thrombocytopenia. CODE STATUS: Full code Family at bedside: Friend updated at bedside Disposition: ICU I have personally spent 39 minutes of critical care time in the direct management of this patient. This is a life/limb threatening event. This includes time spent evaluating patient, direct bedside care, chart review, placing orders, interpretation of diagnostic studies, discussion with consultants, patient, and family members, as well as other required patient management activities. This time is exclusive of all separately billable procedures, and teaching time and separate from and in addition to any other critical care service time. Thank you for allowing us to participate in the care of this patient. History of Present Illness Reason for Consultation: Lactic acidosis and hypoxemic respiratory failure History of Present Illness 56-year-old female with a history of methadone use, COPD, hypertension and GERD who presented to the hospital due to altered mental status. History is obtained from discussion with hospitalist, patient and reviewing chart. Patient apparently had nausea and vomiting this morning. She also admitted to taking 1 tablet of Xanax from her friend. Labs reviewed which indicate acute anemia, thrombocytopenia and acute hypercapnic respiratory failure. Patient also with increasing lactic acidosis despite 2 L of crystalloid. I discussed the situation with the patient's friend at bedside extensively. He notes that there are many different [id number] supplements and multivitamins in the home including ashwaghanda, FRANCHESCA nucleic acid and several other multivitamins. Patient is arousable to voice. She denies any complaint presently. She is a bit lethargic. She is on BiPAP and tolerating this well. Hemodynamically stable. CT chest personally reviewed which revealed bibasilar nodular opacities consistent with aspiration. CT abdomen pelvis without evidence of hydronephrosis. 2.2 cm hypodense lesion in the right kidney. Intraluminal gas of the left common femoral vein. Salicylate level, Tylenol level and ethylene alcohol level is negative. Patient is currently on doxycycline and received Zosyn in the ER. Allergies Allergy/AdvReac Type Severity Reaction Status Date / Time No Known Allergies Allergy Verified 05/16/22 16:53 Home Medications Medication Instructions Recorded Confirmed Type amlodipine 10 mg tablet 10 mg PO DAILY 05/16/22 05/16/22 History duloxetine 30 mg capsule,delayed 30 mg PO DAILY 05/16/22 05/16/22 History release hydroxyzine HCl 25 mg tablet 25 - 50 mg PO HS PRN Insomnia 05/16/22 05/16/22 History methadone 40 mg soluble tablet 106 mg PO DAILY 05/16/22 05/16/22 History metoprolol succinate 25 mg 25 mg PO BID 05/16/22 05/16/22 History tablet,extended release 24 hr omeprazole 20 mg capsule,delayed 20 mg PO DAILY 05/16/22 05/16/22 History release Patient History Medical History (Updated 05/16/22 @ 17:42 by Daron Saldivar MD) COPD (chronic obstructive pulmonary disease) GERD (gastroesophageal reflux disease) Hepatitis C test positive HTN (hypertension) Lactic acidosis Methadone maintenance therapy patient Recurrent major depressive disorder Tobacco abuse Surgical History Status post total hip replacement, right Family History Other Family history non-contributory Social History Smoking Status: Current some day smoker Tobacco Type: Cigarettes Hx Alcohol Use: Yes Hx Substance Use: Yes Feels Safe at Home: Yes Review of Systems Review of Systems: All systems reviewed & are unremarkable except as noted in HPI & below Physical Exam Physical Exam: Constitutional: Lethargic appearing, but in no apparent distress. Eyes: Pupils are equal round and reactive to light. Conjunctivae are normal. Anicteric sclera. Ears nose, mouth and throat: BiPAP mask in place. Neck: Trachea is midline. Visual inspection is normal. Respiratory: Prolonged phase of exhalation. Wheezes. Mild tachypnea. Cardiovascular: Regular rate and rhythm. No murmurs. No edema. Gastrointestinal: Normal bowel sounds, soft, nontender and nondistended. No hepatosplenomegaly noted. Musculoskeletal: No cyanosis. Patient is able to move all extremities. Skin: No rashes, warm dry and intact. Neurologic: No obvious focal neurological deficits seen. Psychiatric: Alert and oriented x3 with a euthymic affect. Results & Data Results & Data ([facility]) Vital Signs (Past 12 Hours) Vital Signs Temp Pulse Pulse Resp BP BP Pulse Ox 05/16/22 14:56 86 96 05/16/22 14:00 82 18 115/58 L 95 05/16/22 12:25 80 22 98 05/16/22 12:22 79 22 98 05/16/22 11:30 75 L 05/16/22 11:30 36.7 C 82 20 95/61 L 98 O2 Del Method O2 Flow Rate FiO2 05/16/22 14:56 BiPAP 37 05/16/22 14:00 BiPAP 37 05/16/22 12:25 BiPAP 35 05/16/22 12:22 35 05/16/22 11:30 Nasal Cannula 0 05/16/22 11:30 Nasal Cannula 5 Coding Level of Care Code Critical Care 1st 30-74 mins Diagnoses Acute respiratory failure with hypoxia J96.01 Elevated lactic acid level R79.89 KARLA (acute kidney injury) N17.9 Lactic acidosis E87.20 Thrombocytopenia D69.6 Anemia D64.9
--- NOTE | 2022-05-16 17:23 | CT Scan Report ---
ABDOMEN AND PELVIS CT WITHOUT CONTRAST CT DOSE: 2334.85 mGy.cm HISTORY: sepsis, right upper quadrant abdominal pain TECHNIQUE: Multiaxial CT images of the abdomen and pelvis were performed without contrast. A dose lo wering technique was utilized adhering to the principles of ALARA. COMPARISON STUDY: None. FINDINGS: Patchy bibasilar densities are better appreciated on the same day chest CT. There is a righ t total hip arthroplasty. No fractures within the visualized osseous structures. Focal area of intral uminal gas within the left common femoral vein. This is indeterminate but could be due to prior intra venous line insertion. Mild body wall edema is noted. Small amount of sludge/stones noted within the gallbladder. No gallbladder wall thickening. Hepatic steatosis. The unenhanced pancreas and adrenal g lands are unremarkable. There are few splenic calcified granulomas. Mild calcified plaque within the normal caliber abdominal aorta. No retroperitoneal or pelvic lymphadenopathy. A 2.2 cm hypodense lesi on within the left kidney. This is incompletely characterized on this noncontrast study. No renal or ureteral stones. No hydronephrosis. The bladder is decompressed by a Ernandez catheter. The uterus and b ilateral adnexa are within normal limits. Suboptimal evaluation for bowel pathology due to the lack o f intravenous and oral contrast. However, there is no definite bowel wall thickening or obstruction. Normal appendix. There is a 2.1 cm hypodense lesion within the right lower quadrant adjacent to the i liac vessels on image 339. This is indeterminate but favors a benign lesion. IMPRESSION: 1. Patchy bibasilar densities are better appreciated on the same day chest CT. 2. No definite bowel wall thickening or obstruction. 3. Normal appendix. 4. No hydronephrosis. 5. Hepatic steatosis. 6. Small amount of sludge/stones within the gallbladder. No definite gallbladder wall thickening. 7. A 2.2 cm hypodense lesion within the right kidney. This is incompletely characterized on this nonc ontrast study but statistically represents a cyst. Follow-up nonemergent renal ultrasound recommended for confirmation. 8. An indeterminate 2.1 cm hypodense lesion within the right lower quadrant adjacent to the leg vesse ls. This is likely benign. 6 month abdomen and pelvis CT follow-up recommended to ensure stability. 9. Intraluminal gas within the left common femoral vein. This may be related to prior intravenous britt e insertion. ACT 112: Positive. There are findings on this exam that require communication between the performing entity and the patient following Patient Test Result Information Act ([place] Act 112) guidelines. Electronically signed by: John Bowers M.D. 05/16/2022 5:20 PM
--- NOTE | 2022-05-16 17:30 | CT Scan Report ---
CT chest diagnostic wo con CT DOSE: HISTORY: sepsis, resp failure TECHNIQUE: Multiaxial CT images of the chest were performed without contrast. A dose lowering techni que was utilized adhering to the principles of ALARA. COMPARISON: None. FINDINGS: Partial opacification of the bilateral lower lobe distal bronchi with patchy bibasilar dens ities within the base of the lower lobes. This is concerning for a pneumonia and could be due to aspi ration. No pneumothorax. No pleural effusions. There is a calcified granuloma within the right lower lobe. There is a 5 mm nodular density within the right lung apex on image 65. There are few focal nod ular airspace opacities within the right middle lobe. There are patchy groundglass densities within t he upper lobes posteriorly. This could represent a combination of dependent change and pneumonia. No suspicious lytic or blastic osseous lesions. There is normal, healed left anterior second rib fractur e. Hepatic steatosis. Small amount of fluid within the nondistended esophagus. No mediastinal or triny r lymphadenopathy. The heart is mildly enlarged. Mild calcified plaque within the normal caliber thor acic aorta. No pericardial effusion. The main pulmonary measures up to 3.6 and recent diameter consis tent with pulmonary arterial hypertension. There is mild interlobular septal thickening seen within t he lungs. This could represent mild congestive change. IMPRESSION: 1. Partial opacification of the distal bilateral lobe bronchi with patchy bibasilar densities. This f avors a pneumonitis and could be due to aspiration. 2. Mild cardiomegaly with mild interlobular septal thickening suggestive of mild congestive change. 3. Mild pulmonary arterial hypertension. 4. A 5 mm nodule within the right lung apex which could be due to the inflammatory/infectious change. [address] follow-up recommended to ensure resolution. 5. Additional patchy densities within the upper lobes posteriorly which may represent a combination o f the pneumonitis and dependent change. 6. Hepatic steatosis. ACT 112: Negative or not required by law. Electronically signed by: John Bowers M.D. 05/16/2022 5:28 PM
[2022-05-16] MEDS: LACTATED RINGER'S 1,000 ML IV SCH ×2 (17:47→23:32)
[2022-05-16] MEDS: DOXYCYCLINE HYCLATE 100 MG in DEXTROSE 5% 100 ML IV SCH (17:48)
[2022-05-16] MEDS ORDERED: ACETAMINOPHEN 325 MG TAB PO PRN (18:54)
[2022-05-16] MEDS ORDERED: PIPERACILLIN/TAZOBACTAM 3.375 GM in DEXTROSE 5% 100 ML IV SCH (18:54)
[2022-05-16 18:59] LABS: Lyme Ab IgG w/WB Rflx Negative (Negative); Lyme Ab IgM w/WB Rflx Negative (Negative)
[2022-05-16 19:01] LABS: Creatinine Urine Random 154.6 mg/dl
[2022-05-16] MEDS ORDERED: THIAMINE HCL 300 MG in SODIUM CHLORIDE 0.9% 50 ML IV STA (19:30)
[2022-05-16] MEDS: PANTOprazole 40 MG in SYRINGE 0 ML IV SCH (20:24)
[2022-05-16] MEDS: cefTRIAXone SODIUM 2,000 MG in DEXTROSE 5% 50 ML IV SCH (20:27)
[2022-05-16] MEDS: THIAMINE HCL 500 MG in SODIUM CHLORIDE 0.9% 50 ML IV SCH (20:27)
[2022-05-16] MEDS: ALBUTEROL 0.5% NEB SOLN 2.5 MG/0.5 ML VIAL NEB SCH (20:35)
[2022-05-16 20:49] LABS: Base Excess ABG 8.4 mEq/L (-9-1.8); HCO3 ABG 36 mmol/L (19-24); Oxygen Saturation ABG 95.7 % (90-95); PCO2 ABG 64 mmHg (35-46); PO2 ABG 78 mmHg (80-95); pH ABG 7.36 (7.35-7.45)
[2022-05-16 20:50] LABS: Allen Test POS (Pos)
[2022-05-16 21:06] LABS: Fibrinogen 375 mg/dl (184-400); INR 1.2 (0.9-1.1); Prothrombin Time 12.8 Seconds (9.0-12.0)
[2022-05-16 21:20] LABS: Magnesium 2.1 mg/dl (1.7-2.4)
[2022-05-16 21:24] LABS: Troponin I High Sensitivity 718.8 pg/ml (0-14)
[2022-05-16 21:40] LABS: Folate (Folic Acid) 5.54 ng/ml (>5.38)
[2022-05-17] MEDS: ALBUTEROL 0.5% NEB SOLN 2.5 MG/0.5 ML VIAL NEB SCH ×4 (01:30→19:59)
[2022-05-17] MEDS: DOXYCYCLINE HYCLATE 100 MG in DEXTROSE 5% 100 ML IV SCH ×2 (04:01→17:03)
[2022-05-17] MEDS: THIAMINE HCL 500 MG in SODIUM CHLORIDE 0.9% 50 ML IV SCH ×3 (04:01→20:27)
[2022-05-17 06:28] LABS: BUN Creatinine Ratio 18.6 (10-20); Calcium 8.7 mg/dl (8.5-10.1); Creatinine Clr Calc Pharmacy 46.6 ml/min; Est GFR (African American) 38.4 ml/min; Est GFR (Non-African American) 33.1 ml/min; Magnesium 2.1 mg/dl (1.7-2.4); Potassium 3.6 mmol/L (3.5-5.1)
--- NOTE | 2022-05-17 07:12 | CT Scan Report ---
HEAD CT NONCONTRAST CT DOSE: 3070.74 mGy.cm HISTORY: encephalopathy with thrombocytopenia TECHNIQUE: Multiaxial CT images of the head were performed without the use of intravenous contrast. A utomated exposure control was utilized for this study. A dose lowering technique was utilized adheri ng to the principles of ALARA. Comparison: None. Findings: The paranasal sinuses and mastoid air cells are clear. The calvarium and skull base are int act. There is no mass, hematoma, midline shift, acute infarct. White matter hypodensity is nonspecifi c but suggestive of microvascular ischemic change. The ventricles and sulci demonstrate mild age-rela bennett involutional changes. Impression: No acute intracranial abnormality. ACT 112: Negative or not required by law. Electronically signed by: John Bowers M.D. 05/17/2022 7:10 AM
[2022-05-17] MEDS: LACTATED RINGER'S 1,000 ML IV SCH ×3 (07:41→23:38)
[2022-05-17 08:13] LABS: Hematocrit (blood only) 44.9 % (34.1-44.9); Hemoglobin 13.8 g/dl (12.0-16.0); Mean Corpuscular Hemoglobin 29.3 pg (25.0-34.0); Mean Corpuscular Hgb Conc 30.7 g/dL (32.0-36.0); Mean Corpuscular Volume 95.3 fL (80.0-100.0); Nucleated RBC # (auto) 0.09 K/uL (0-0); Nucleated RBC % (auto) 0.6 %; Platelet Count 90 K/uL (130-400); RDW Coefficient of Variation 18.5 % (11.5-14.5); RDW Standard Deviation 62.7 fL (36.4-46.3); Red Blood Count 4.71 M/uL (3.93-5.22); White Blood Count 15.88 K/ul (4.8-10.8)
[2022-05-17 08:15] LABS: Hematocrit (blood only) 42.7 % (34.1-44.9); Hemoglobin 13.2 g/dl (12.0-16.0); Mean Corpuscular Hemoglobin 29.8 pg (25.0-34.0); Mean Corpuscular Hgb Conc 30.9 g/dL (32.0-36.0); Mean Corpuscular Volume 96.4 fL (80.0-100.0); Mean Platelet Volume 11.8 fL (9.4-12.3); Nucleated RBC # (auto) 0.05 K/uL (0-0); Nucleated RBC % (auto) 0.4 %; Platelet Count 80 K/uL (130-400); RDW Coefficient of Variation 18.2 % (11.5-14.5); RDW Standard Deviation 63.7 fL (36.4-46.3); Red Blood Count 4.43 M/uL (3.93-5.22); White Blood Count 11.15 K/ul (4.8-10.8)
[2022-05-17 08:34] LABS: Basophils # (auto) 0.02 K/uL (0-0.2); Basophils % (auto) 0.2 %; Immature Granulocytes # (auto) 0.13 K/uL (0.00-0.02); Immature Granulocytes % (auto) 1.2 %; Lymphocytes # (auto) 0.54 K/uL (1.2-3.4); Lymphocytes % (auto) 4.8 %; Monocytes # (auto) 0.67 K/uL (0.24-0.82); Neutrophils # (auto) 9.79 K/uL (1.4-6.5); Neutrophils % (auto) 87.8 %
[2022-05-17] MEDS ORDERED: THIAMINE HCL 300 MG in SODIUM CHLORIDE 0.9% 50 ML IV SCH (09:00)
[2022-05-17] MEDS ORDERED: METHADONE HCL 10 MG TAB PO ONE (11:00)
--- NOTE | 2022-05-17 11:04 | Critical Care Progress Note ---
Date of Service May 17, 2022 Assessment & Plan (1) Acute respiratory failure with hypoxia: (2) Elevated lactic acid level: (3) KARLA (acute kidney injury): (4) Lactic acidosis: (5) Thrombocytopenia: (6) Anemia: Plan 56-year-old female with a history of opiate dependence, methadone use, obesity, tobacco abuse, GERD, hypertension and likely COPD presenting to the hospital due to altered mental status. She is found to be in KARLA with a lactic acidosis. Neurologic: Mental status is improving. CT head without contrast ordered. Likely component of hypercapnic respiratory failure from oversedation given that the patient was taking benzodiazepines and methadone at home. She also received Ativan in the emergency department. She is status post Narcan x1. Monitor for signs of withdrawal. Consider the use of Precedex if withdrawal symptoms worsen. Continue thiamine. We will give a dose of methadone today to prevent withdrawals. Pulmonary: Acute hypercapnic respiratory failure likely secondary to sedation and component of obstructive lung disease. Continue systemic corticosteroids and as needed BiPAP. Continue nebs. Cardiovascular: Hemodynamically stable at the present time. Maintain maps above 65 mmHg. Troponin mildly elevated likely related to demand ischemia. Continue to trend. Gastrointestinal: NPO. AST mildly elevated. Alkaline phosphatase also mildly elevated. CT abdomen without acute pathology. Renal: KARLA likely secondary to hypovolemia. Continue with crystalloid infusion. Lactic acidosis without clear etiology, but likely component of respiratory failure and dehydration. Lactic acidosis resolved. Creatinine stable. Infectious disease: Continue empiric antibiotics. Follow blood cultures. Procalcitonin 0.29. Hematologic: There was a problem with the lab and the hemoglobin is now normal. She does have mild thrombocytopenia which is improving. Endocrine: TSH unremarkable VTE prophylaxis: Subcu Lovenox CODE STATUS: Full code Family at bedside: Friend updated at bedside Disposition: Downgrade to PCU status. Admission and Anticipated Discharge Date Admission Date: May 16, 2022 Subjective No acute events overnight. Patient lethargic at times. Review of Systems Review of Systems: All systems reviewed & are unremarkable except as noted in HPI & below Physical Exam Physical Exam: Constitutional: Lethargic appearing, but in no apparent distress. Eyes: Pupils are equal round and reactive to light. Conjunctivae are normal. Anicteric sclera. Ears nose, mouth and throat: BiPAP mask in place. Neck: Trachea is midline. Visual inspection is normal. Respiratory: Prolonged phase of exhalation. Wheezes. Mild tachypnea. Cardiovascular: Regular rate and rhythm. No murmurs. No edema. Gastrointestinal: Normal bowel sounds, soft, nontender and nondistended. No hepatosplenomegaly noted. Musculoskeletal: No cyanosis. Patient is able to move all extremities. Skin: No rashes, warm dry and intact. Neurologic: No obvious focal neurological deficits seen. Psychiatric: Alert and oriented x3 with a euthymic affect. Results & Data Results & Data ([facility]) Vital Signs (Past 12 Hours) Vital Signs Temp Pulse Pulse Resp BP BP Pulse Ox 05/17/22 09:00 81 16 92 05/17/22 08:00 83 16 90 05/17/22 08:00 138/86 05/17/22 08:00 05/17/22 08:00 76 05/17/22 07:30 84 17 95 05/17/22 07:15 85 16 95 05/17/22 07:00 76 14 93 05/17/22 07:00 134/87 05/17/22 06:45 78 15 94 05/17/22 06:30 77 15 95 05/17/22 06:15 79 16 94 05/17/22 06:00 133/82 05/17/22 07:00 36.6 C 05/17/22 07:12 85 18 95 05/17/22 06:00 78 16 133/82 95 05/17/22 05:00 80 14 140/90 93 05/17/22 04:00 82 15 146/92 H 93 05/16/22 23:30 37.1 C 83 21 118/69 94 05/17/22 03:00 82 16 137/80 89 L 05/17/22 03:32 87 15 93 05/17/22 02:00 80 16 131/78 92 05/17/22 01:00 76 16 132/86 91 05/17/22 01:34 79 18 98 05/17/22 00:00 74 15 122/72 90 O2 Del Method O2 Flow Rate FiO2 05/17/22 09:00 05/17/22 08:00 05/17/22 08:00 05/17/22 08:00 Oxymask 5 05/17/22 08:00 05/17/22 07:30 05/17/22 07:15 05/17/22 07:00 05/17/22 07:00 05/17/22 06:45 05/17/22 06:30 05/17/22 06:15 05/17/22 06:00 05/17/22 07:00 05/17/22 07:12 Nebulizer 7 05/17/22 06:00 05/17/22 05:00 05/17/22 04:00 05/16/22 23:30 BiPAP 05/17/22 03:00 05/17/22 03:32 40 05/17/22 02:00 05/17/22 01:00 05/17/22 01:34 BiPAP 40 05/17/22 00:00 Coding Level of Care Code 78204 Subseq Hosp Care Lvl 3 Diagnoses Acute respiratory failure with hypoxia J96.01 Elevated lactic acid level R79.89 KARLA (acute kidney injury) N17.9 Lactic acidosis E87.20 Thrombocytopenia D69.6 Anemia D64.9 Anemia type: unspecified type (1) Anemia Anemia type: unspecified type Qualified Code(s): D64.9 - Anemia, unspecified
[2022-05-17] MEDS: ENOXAPARIN INJ 40 MG/0.4 ML SYR SQ SCH (11:12)
[2022-05-17] MEDS: FOLIC ACID 1 MG in SYRINGE 9.8 ML IV SCH (11:13)
[2022-05-17] MEDS: PANTOprazole 40 MG in SYRINGE 0 ML IV SCH (11:14)
[2022-05-17] MEDS: methylPREDNISolone 40 MG in SYRINGE 0 ML IV SCH ×2 (11:24→20:26)
--- NOTE | 2022-05-17 16:57 | Hospitalist Progress Note ---
Date of Service May 17, 2022 Assessment & Plan (1) Acute respiratory failure with hypoxia: (2) Elevated lactic acid level: Plan: Present on admission with worsening sob and lethargy In the ED, patient was hypoxic on room air at 75%, currently requiring BiPAP th erapy. CT head showed partial opacification of the distal bilateral lobe bronchi with patchy bibasilar densities. Additional patchy densities within the upper lobes posteriorly which may represent a combination of the pneumonitis and dependent change. ABG pH 7.34, PCO2 64, PO2 81, HCO3 35; anion gap 23 on admission Continue Ceftriaxone and doxycycline Continue systemic corticosteroids Continue neb treatment continue monitor closely (3) Elevated troponin: Plan: Likely due to demand ischemic from hypoxia troponin on admission 611 then peak to 718, now trending down EKG without acute ST changes Echo showed no wall motion abnormality with EF 55-60% denies any chest pain (4) KARLA (acute kidney injury): Plan: Creat 1.8, baseline ~ 0.9 Ernandez in with adequate urine output Continue IVF Creatinine 1.7 today Continue avoid nephrotoxic agents (5) Thrombocytopenia: Plan: Platelet level 90 today Continue monitor CBC (6) Anemia: Plan: Hgb 7.9 on admission seem to be lab error No blood tranfusion given Hgb 13.8 today Continue monitor CBC (7) Hepatitis C test positive: Plan: Hepatitis C antibody + 01/2021 Will need outpatient management (8) HTN (hypertension): Plan: Will resume amlodipine and metoprolol in am (9) GERD (gastroesophageal reflux disease): Plan: Continue PPI, will transition to PO am (10) Methadone maintenance therapy patient: Plan: On methadone 106 mg daily, confirmed with [facility], last dose 05/15 Dur to Lethargy Methadone 50mg was given today (11) Recurrent major depressive disorder: Plan: Hold home duloxetine Lung Nodule CT showed 5 mm nodule within the right lung apex which could be due to the inflammatory/infectious change. Follow up with CT in 6 months (12) DVT prophylaxis: Plan: SCDs due to anemia/thrombocytopenia Admission and Anticipated Discharge Date Admission Date: May 16, 2022 Subjective Pt was seen and examined for follow up of SOB Lying in bed with no acute distress Pt continues to be drowsy and requiring oxygen supplement Denies any chest pain, palpitation, dizziness and SOB Review of Systems Review of Systems: All systems reviewed & are unremarkable except as noted in Subjective Physical Exam Physical Exam: General- No acute distress Head- atraumatic Eyes- PERRL, EOMI, ENT- oropharynx clear Neck- supple, no JVD Lungs- diminished breath sound Heart- regular rhythm; no murmur Abdomen- normal bowel sounds, soft, nontender Extremities- no calf tenderness Neuro- alert, oriented x 3; PERRL, EOMI; no facial palsy; no dysarthria Skin- warm & dry Results & Data Results & Data ([facility]) Vital Signs (Past 12 Hours) Vital Signs Temp Pulse Pulse Resp BP Pulse Ox O2 Del Method 05/17/22 16:00 68 05/17/22 16:26 36.6 C 05/17/22 15:00 62 12 91 05/17/22 15:00 104/66 05/17/22 14:00 66 14 91 05/17/22 14:00 112/75 05/17/22 13:00 71 14 93 05/17/22 13:00 107/72 05/17/22 12:00 69 21 93 05/17/22 12:00 109/65 05/17/22 11:00 74 18 90 05/17/22 11:00 117/72 05/17/22 10:02 125/76 05/17/22 10:02 76 20 90 05/17/22 10:00 77 16 90 05/17/22 13:12 78 16 93 Oxymask 05/17/22 09:00 81 16 92 05/17/22 08:00 83 16 90 05/17/22 08:00 138/86 05/17/22 08:00 Oxymask 05/17/22 08:00 76 05/17/22 07:30 84 17 95 05/17/22 07:15 85 16 95 05/17/22 07:00 76 14 93 05/17/22 07:00 134/87 05/17/22 06:45 78 15 94 05/17/22 06:30 77 15 95 05/17/22 06:15 79 16 94 05/17/22 06:00 133/82 05/17/22 07:00 36.6 C 05/17/22 07:12 85 18 95 Nebulizer 05/17/22 06:00 78 16 133/82 95 05/17/22 05:00 80 14 140/90 93 O2 Flow Rate 05/17/22 16:00 05/17/22 16:26 05/17/22 15:00 05/17/22 15:00 05/17/22 14:00 05/17/22 14:00 05/17/22 13:00 05/17/22 13:00 05/17/22 12:00 05/17/22 12:00 05/17/22 11:00 05/17/22 11:00 05/17/22 10:02 05/17/22 10:02 05/17/22 10:00 05/17/22 13:12 7 05/17/22 09:00 05/17/22 08:00 05/17/22 08:00 05/17/22 08:00 5 05/17/22 08:00 05/17/22 07:30 05/17/22 07:15 05/17/22 07:00 05/17/22 07:00 05/17/22 06:45 05/17/22 06:30 05/17/22 06:15 05/17/22 06:00 05/17/22 07:00 05/17/22 07:12 7 05/17/22 06:00 05/17/22 05:00 (1) Anemia Anemia type: unspecified type Qualified Code(s): D64.9 - Anemia, unspecified
[2022-05-17] MEDS: cefTRIAXone SODIUM 2,000 MG in DEXTROSE 5% 50 ML IV SCH (20:26)
[2022-05-18] MEDS: methylPREDNISolone 40 MG in SYRINGE 0 ML IV SCH ×3 (04:04→20:21)
[2022-05-18] MEDS: THIAMINE HCL 500 MG in SODIUM CHLORIDE 0.9% 50 ML IV SCH ×3 (04:04→20:21)
[2022-05-18] MEDS: DOXYCYCLINE HYCLATE 100 MG in DEXTROSE 5% 100 ML IV SCH ×2 (04:52→16:27)
[2022-05-18 06:51] LABS: Hematocrit (blood only) 41.7 % (34.1-44.9); Hemoglobin 13.2 g/dl (12.0-16.0); Mean Corpuscular Hemoglobin 29.5 pg (25.0-34.0); Mean Corpuscular Hgb Conc 31.7 g/dL (32.0-36.0); Mean Corpuscular Volume 93.3 fL (80.0-100.0); Mean Platelet Volume 12.1 fL (9.4-12.3); Nucleated RBC # (auto) 0.03 K/uL (0-0); Nucleated RBC % (auto) 0.3 %; Platelet Count 89 K/uL (130-400); RDW Coefficient of Variation 18.5 % (11.5-14.5); RDW Standard Deviation 61.8 fL (36.4-46.3); Red Blood Count 4.47 M/uL (3.93-5.22); White Blood Count 11.69 K/ul (4.8-10.8)
[2022-05-18 06:54] LABS: INR 1.1 (0.9-1.1); Prothrombin Time 11.4 Seconds (9.0-12.0)
[2022-05-18 07:06] LABS: BUN Creatinine Ratio 23.9 (10-20); Calcium 8.7 mg/dl (8.5-10.1); Creatinine Clr Calc Pharmacy 49.8 ml/min; Est GFR (Non-African American) 35.4 ml/min; Potassium 4.1 mmol/L (3.5-5.1)
[2022-05-18] MEDS: ALBUTEROL 0.5% NEB SOLN 2.5 MG/0.5 ML VIAL NEB SCH ×4 (07:15→20:32)
[2022-05-18] MEDS: ENOXAPARIN INJ 40 MG/0.4 ML SYR SQ SCH (09:26)
[2022-05-18] MEDS: FOLIC ACID 1 MG in SYRINGE 9.8 ML IV SCH (09:27)
[2022-05-18] MEDS: LACTATED RINGER'S 1,000 ML IV SCH (09:28)
[2022-05-18] MEDS: PANTOprazole 40 MG in SYRINGE 0 ML IV SCH (12:25)
[2022-05-18] MEDS ORDERED: METHADONE HCL 10 MG TAB PO ONE (15:15)
--- NOTE | 2022-05-18 20:18 | Hospitalist Progress Note ---
Date of Service May 18, 2022 Assessment & Plan (1) Acute respiratory failure with hypoxia: (2) Elevated lactic acid level: Plan: Present on admission with worsening sob and lethargy In the ED, patient was hypoxic on room air at 75%, currently requiring BiPAP th erapy. CT head showed partial opacification of the distal bilateral lobe bronchi with patchy bibasilar densities. Additional patchy densities within the upper lobes posteriorly which may represent a combination of the pneumonitis and dependent change. ABG pH 7.34, PCO2 64, PO2 81, HCO3 35; anion gap 23 on admission Continue Ceftriaxone and doxycycline Blood cx no growth Currently on systemic corticosteroids, will transition to PO in am Continue neb treatment continue monitor closely (3) Elevated troponin: Plan: Likely due to demand ischemic from hypoxia troponin on admission 611 then peak to 718, now trending down EKG without acute ST changes Echo showed no wall motion abnormality with EF 55-60% denies any chest pain (4) KARLA (acute kidney injury): Plan: Creat 1.8, baseline ~ 0.9 Ernandez in with adequate urine output Continue IVF Creatinine 1.6 today Continue avoid nephrotoxic agents (5) Thrombocytopenia: Plan: Platelet level 89 today Continue monitor CBC (6) Anemia: Plan: Hgb 7.9 on admission seem to be lab error No blood tranfusion given Hgb 13.2 today Continue monitor CBC (7) Hepatitis C test positive: Plan: Hepatitis C antibody + 01/2021 Will need outpatient management (8) HTN (hypertension): Plan: Will resume amlodipine and metoprolol in am (9) GERD (gastroesophageal reflux disease): Plan: Continue PPI, will transition to PO am (10) Methadone maintenance therapy patient: Plan: On methadone 106 mg daily, confirmed with [facility], last dose 05/15 I tried to call the Methadone clinic but it was closed Methadone 50mg was given yesterday, will give methadone 80mg today Will resume her home dose Methadone if fully awake (11) Recurrent major depressive disorder: Plan: Hold home duloxetine Lung Nodule CT chest showed 5 mm nodule within the right lung apex which could be due to the inflammatory/infectious change. Follow up with CT in 6 months (12) DVT prophylaxis: Plan: SCDs due to anemia/thrombocytopenia Admission and Anticipated Discharge Date Admission Date: May 16, 2022 Subjective Pt was seen and examined for follow up SOB Lying in bed with no acute distress Pt said that she feels much better She is more awake today denies any chest pain, palpitation, dizziness and sob Review of Systems Review of Systems: All systems reviewed & are unremarkable except as noted in Subjective Physical Exam Physical Exam: General- No acute distress Head- atraumatic Eyes- PERRL, EOMI, ENT- oropharynx clear Neck- supple, no JVD Lungs- diminished breath sound Heart- regular rhythm; no murmur Abdomen- normal bowel sounds, soft, nontender Extremities- no calf tenderness Neuro- alert, oriented x 3; PERRL, EOMI; no facial palsy; no dysarthria Skin- warm & dry Results & Data Results & Data ([facility]) Vital Signs (Past 12 Hours) Vital Signs Temp Pulse Pulse Resp BP BP Pulse Ox 05/18/22 19:30 84 17 90 05/18/22 19:30 160/85 H 05/18/22 19:00 68 92 05/18/22 20:00 05/18/22 19:59 36.7 C 05/18/22 19:00 05/18/22 17:15 72 05/18/22 16:00 05/18/22 16:31 36.6 C 71 20 140/94 93 05/18/22 15:00 70 90 05/18/22 14:00 73 19 05/18/22 13:04 153/96 H 05/18/22 13:04 75 18 92 05/18/22 13:00 64 19 90 05/18/22 12:00 65 17 153/96 H 93 05/18/22 11:00 64 18 92 05/18/22 10:00 61 16 90 05/18/22 09:00 59 L 14 92 05/18/22 13:00 36.6 C 05/18/22 09:00 Pulse Ox O2 Del Method O2 Del Method O2 Flow Rate O2 Flow Rate 05/18/22 19:30 Nasal Cannula 2 05/18/22 19:30 05/18/22 19:00 05/18/22 20:00 Nasal Cannula 2 05/18/22 19:59 05/18/22 19:00 93 Nasal Cannula 3 05/18/22 17:15 05/18/22 16:00 Nasal Cannula 2 05/18/22 16:31 Nasal Cannula 2 05/18/22 15:00 05/18/22 14:00 10/21/22 13:04 05/18/22 13:04 05/18/22 13:00 05/18/22 12:00 05/18/22 11:00 05/18/22 10:00 05/18/22 09:00 05/18/22 13:00 05/18/22 09:00 Nasal Cannula 3 (1) Anemia Anemia type: unspecified type Qualified Code(s): D64.9 - Anemia, unspecified
[2022-05-18] MEDS: cefTRIAXone SODIUM 2,000 MG in DEXTROSE 5% 50 ML IV SCH (20:20)
[2022-05-19] MEDS: DOXYCYCLINE HYCLATE 100 MG in DEXTROSE 5% 100 ML IV SCH ×2 (05:19→17:10)
[2022-05-19 06:36] LABS: 7-Aminoclonaz, Confirm NEGATIVE ng/mL (<25); Hydro-Alp Ur, GC/MS NEGATIVE ng/mL (<25); Hydroxyethylflurazepam, Conf NEGATIVE ng/mL (<50); Hydroxymidazolam Ur, GC/MS NEGATIVE ng/mL (<50); Hydroxytriazolam NEGATIVE ng/mL (<50); Lorazepam, Ur GC/MS NEGATIVE ng/mL (<50); Methadone, Ur Metabolite >10000 ng/mL (<100); Nordiazepam, Confirm NEGATIVE ng/mL (<50); Oxazepam Ur, GC/MS NEGATIVE ng/mL (<50); Temazepam, Confirm NEGATIVE ng/mL (<50)
[2022-05-19] MEDS: ALBUTEROL 0.5% NEB SOLN 2.5 MG/0.5 ML VIAL NEB SCH ×2 (07:06→10:30)
[2022-05-19] MEDS: THIAMINE HCL 100 MG TAB PO SCH (08:37)
[2022-05-19] MEDS: PANTOprazole 40 MG TAB PO SCH (08:37)
[2022-05-19] MEDS: predniSONE 20 MG TAB PO SCH (08:37)
[2022-05-19 08:39] LABS: Anion Gap 6 (3-11); BUN Creatinine Ratio 24.1 (10-20); Blood Urea Nitrogen 42 mg/dl (6-23); Calcium 9.1 mg/dl (8.5-10.1); Carbon Dioxide 32 mmol/L (21-32); Chloride 98 mmol/L (98-107); Creatinine Clr Calc Pharmacy 47.2 ml/min; Est GFR (African American) 37.9 ml/min; Est GFR (Non-African American) 32.7 ml/min; Glucose 111 mg/dl (70-99(Fasting)); Sodium 136 mmol/L (136-145)
[2022-05-19] MEDS ORDERED: FOLIC ACID 1 MG in SYRINGE 9.8 ML IV SCH (09:00)
[2022-05-19] MEDS: ENOXAPARIN INJ 40 MG/0.4 ML SYR SQ SCH (09:28)
[2022-05-19] MEDS: METHADONE HCL 10 MG TAB PO SCH (09:29)
[2022-05-19] MEDS ORDERED: ALBUTEROL 0.5% NEB SOLN 2.5 MG/0.5 ML VIAL NEB PRN (10:35)
[2022-05-19] MEDS: METOPROLOL SUCC 25MG EXT REL TAB PO SCH (11:24)
[2022-05-19] MEDS: amLODIPine BESYLATE 5 MG TAB PO SCH (11:24)
--- NOTE | 2022-05-19 15:59 | Hospitalist Progress Note ---
Date of Service May 19, 2022 Assessment & Plan (1) Acute respiratory failure with hypoxia: (2) Elevated lactic acid level: Plan: Present on admission with worsening sob and lethargy In the ED, patient was hypoxic on room air at 75%, currently requiring BiPAP th erapy. CT head showed partial opacification of the distal bilateral lobe bronchi with patchy bibasilar densities. Additional patchy densities within the upper lobes posteriorly which may represent a combination of the pneumonitis and dependent change. ABG pH 7.34, PCO2 64, PO2 81, HCO3 35; anion gap 23 on admission On Ceftriaxone and doxycycline Blood cx no growth Systemic corticosteroids discontinued Continue PO steroid Continue neb treatment Will transition to PO abx on discharge Currently saturated well on RA (3) Elevated troponin: Plan: Likely due to demand ischemic from hypoxia troponin on admission 611 then peak to 718, now trending down EKG without acute ST changes Echo showed no wall motion abnormality with EF 55-60% denies any chest pain (4) KARLA (acute kidney injury): Plan: Creat 1.8, Creatinine 0.7 back in 11/2020 Ernandez in with adequate urine output Continue IVF Creatinine 1.7 today Continue avoid nephrotoxic agents (5) Thrombocytopenia: Plan: Platelet level 89 today Continue monitor CBC (6) Anemia: Plan: Hgb 7.9 on admission seem to be lab error No blood tranfusion given Hgb 13.2 today Continue monitor CBC (7) Hepatitis C test positive: Plan: Hepatitis C antibody + 01/2021 Will need outpatient management (8) HTN (hypertension): Plan: Will resume amlodipine and metoprolol in am (9) GERD (gastroesophageal reflux disease): Plan: Continue PPI, will transition to PO am (10) Methadone maintenance therapy patient: Plan: On methadone 106 mg daily, confirmed with [facility], last dose 05/15 I tried to call the Methadone clinic but it was closed Methadone 50mg was given yesterday, will give methadone 80mg today I called the methadone facility about today dose for the methadone since pt was drowsy in the last 2 days and now mental status improves They will schedule pt on Saturday to see a physician. No guidance was given for today dose or tomorrow Spoke to our pharmacy that agreed to give 80mg methadone today (11) Recurrent major depressive disorder: Plan: Hold home duloxetine Lung Nodule CT chest showed 5 mm nodule within the right lung apex which could be due to the inflammatory/infectious change. Follow up with CT in 6 months (12) DVT prophylaxis: Plan: SCDs due to anemia/thrombocytopenia Admission and Anticipated Discharge Date Admission Date: May 16, 2022 Subjective Pt was seen and examined for follow up SOB Lying in bed with no acute distress Pt said that she feels much better she is saturated well on RA I called the methadone facility about today dose for the methadone since pt was drowsy in the last 2 days and now mental status improves They will schedule pt on Saturday to see the physician. No guidance was given for today dose Spoke to our pharmacy that agreed to give 80mg methadone today Denies any chest pain, palpitation, dizziness and sob Review of Systems Review of Systems: All systems reviewed & are unremarkable except as noted in Subjective Physical Exam Physical Exam: General- No acute distress Head- atraumatic Eyes- PERRL, EOMI, ENT- oropharynx clear Neck- supple, no JVD Lungs- diminished breath sound Heart- regular rhythm; no murmur Abdomen- normal bowel sounds, soft, nontender Extremities- no calf tenderness Neuro- alert, oriented x 3; PERRL, EOMI; no facial palsy; no dysarthria Skin- warm & dry Results & Data Results & Data ([facility]) Vital Signs (Past 12 Hours) Vital Signs Temp Pulse Pulse Resp BP Pulse Ox O2 Del Method 05/19/22 11:23 36.9 C 81 18 118/66 90 Room Air 05/19/22 08:00 Room Air 05/19/22 10:33 78 18 87 L Room Air 05/19/22 07:00 75 05/19/22 07:38 74 18 95 Nasal Cannula 05/19/22 07:28 36.7 C 84 16 151/77 H 92 Room Air 05/19/22 04:59 74 05/19/22 04:55 36.9 C 77 18 148/76 H 94 Nasal Cannula 05/19/22 04:49 Nasal Cannula O2 Flow Rate 05/19/22 11:23 05/19/22 08:00 05/19/22 10:33 05/19/22 07:00 05/19/22 07:38 1 05/19/22 07:28 05/19/22 04:59 05/19/22 04:55 1 05/19/22 04:49 1 (1) Anemia Anemia type: unspecified type Qualified Code(s): D64.9 - Anemia, unspecified
[2022-05-19] MEDS ORDERED: CALCIUM CARBONATE 500 MG CHEWABLE TAB PO PRN (17:31)
[2022-05-19] MEDS: bisacodyL 5 MG TABEC PO PRN (18:04)
[2022-05-19] MEDS: cefTRIAXone SODIUM 2,000 MG in DEXTROSE 5% 50 ML IV SCH (20:03)
[2022-05-20] MEDS: DOXYCYCLINE HYCLATE 100 MG in DEXTROSE 5% 100 ML IV SCH ×2 (05:34→17:48)
[2022-05-20 07:48] LABS: Calcium 9.6 mg/dl (8.5-10.1); Creatinine Clr Calc Pharmacy 51.7 ml/min; Est GFR (African American) 42.2 ml/min; Est GFR (Non-African American) 36.4 ml/min; Potassium 3.5 mmol/L (3.5-5.1)
[2022-05-20] MEDS: bisacodyL 5 MG TABEC PO PRN (08:02)
[2022-05-20] MEDS: amLODIPine BESYLATE 5 MG TAB PO SCH (08:02)
[2022-05-20] MEDS: THIAMINE HCL 100 MG TAB PO SCH (08:02)
[2022-05-20] MEDS: METHADONE HCL 10 MG TAB PO SCH (08:02)
[2022-05-20] MEDS: PANTOprazole 40 MG TAB PO SCH (08:02)
[2022-05-20] MEDS: METOPROLOL SUCC 25MG EXT REL TAB PO SCH (08:02)
[2022-05-20] MEDS: predniSONE 20 MG TAB PO SCH (08:02)
[2022-05-20] MEDS: FOLIC ACID 1 MG TAB PO SCH (10:15)
[2022-05-20] MEDS: ENOXAPARIN INJ 40 MG/0.4 ML SYR SQ SCH (10:16)
[2022-05-20] MEDS ORDERED: METHADONE HCL 10 MG TAB PO STA (10:24)
[2022-05-20] MEDS: NICOTINE 14 MG/24 HR PATCH TD SCH (13:11)
[2022-05-20] MEDS: cefTRIAXone SODIUM 2,000 MG in DEXTROSE 5% 50 ML IV SCH (21:10)
--- NOTE | 2022-05-20 23:04 | Hospitalist Progress Note ---
Date of Service May 20, 2022 Assessment & Plan (1) Acute respiratory failure with hypoxia: (2) Elevated lactic acid level: Plan: Present on admission with worsening sob and lethargy In the ED, patient was hypoxic on room air at 75%, currently requiring BiPAP th erapy. CT head showed partial opacification of the distal bilateral lobe bronchi with patchy bibasilar densities. Additional patchy densities within the upper lobes posteriorly which may represent a combination of the pneumonitis and dependent change. ABG pH 7.34, PCO2 64, PO2 81, HCO3 35; anion gap 23 on admission On Ceftriaxone and doxycycline Blood cx no growth Systemic corticosteroids discontinued Continue PO steroid Continue neb treatment Currently on IV ceftriaxone and doxycycline, will transition to oral on discharge 2 step exercise done today and pt require 2 L NC oxygen with ambulation (3) Elevated troponin: Plan: Likely due to demand ischemic from hypoxia troponin on admission 611 then peak to 718, now trending down EKG without acute ST changes Echo showed no wall motion abnormality with EF 55-60% denies any chest pain (4) KARLA (acute kidney injury): Plan: Creat 1.8, Creatinine 0.7 back in 11/2020 Ernandez in with adequate urine output Continue IVF Creatinine 1.5 today Continue avoid nephrotoxic agents (5) Thrombocytopenia: Plan: Platelet level 89 today Continue monitor CBC (6) Anemia: Plan: Hgb 7.9 on admission seem to be lab error No blood tranfusion given Hgb 13.2 Continue monitor CBC (7) Hepatitis C test positive: Plan: Hepatitis C antibody + 01/2021 Will need outpatient management (8) HTN (hypertension): Plan: Continue amlodipine and metoprolol Continue monitor BP (9) GERD (gastroesophageal reflux disease): Plan: Continue PPI, will transition to PO am (10) Methadone maintenance therapy patient: Plan: On methadone 106 mg daily, confirmed with [facility], last dose 05/15 I tried to call the Methadone clinic but it was closed Methadone 50mg was given yesterday, will give methadone 80mg today I called the methadone facility about today dose for the methadone since pt was drowsy in the last 2 days and now mental status improves They will schedule pt on Saturday to see a physician. No guidance was given for today dose or tomorrow Methadone 100mg given today (11) Recurrent major depressive disorder: Plan: Hold home duloxetine Lung Nodule CT chest showed 5 mm nodule within the right lung apex which could be due to the inflammatory/infectious change. Follow up with CT in 6 months (12) DVT prophylaxis: Plan: SCDs due to anemia/thrombocytopenia Admission and Anticipated Discharge Date Admission Date: May 16, 2022 Subjective Pt was seen and examined for follow up SOB Lying in bed with no acute distress. She felt anxious and weird that she could describe the feeling She had 2 step done today that required 2L nasal canula with ambulation Denies any chest pain, palpitation, dizziness and sob Review of Systems Review of Systems: All systems reviewed & are unremarkable except as noted in Subjective Physical Exam Physical Exam: General- No acute distress Head- atraumatic Eyes- PERRL, EOMI, ENT- oropharynx clear Neck- supple, no JVD Lungs- diminished breath sound Heart- regular rhythm; no murmur Abdomen- normal bowel sounds, soft, nontender Extremities- no calf tenderness Neuro- alert, oriented x 3; PERRL, EOMI; no facial palsy; no dysarthria Skin- warm & dry Results & Data Results & [facility] ([facility]) Vital Signs (Past 12 Hours) Vital Signs Temp Pulse Pulse Pulse Pulse Pulse Pulse 05/20/22 19:00 05/20/22 19:16 37.0 C 66 05/20/22 16:00 64 05/20/22 15:59 87 78 93 H 73 05/20/22 15:38 36.9 C 65 05/20/22 11:31 36.8 C 67 Resp Resp Resp Resp Resp BP Pulse Ox 05/20/22 19:00 05/20/22 19:16 18 172/89 H 92 05/20/22 16:00 05/20/22 15:59 20 20 20 18 05/20/22 15:38 19 165/87 H 90 05/20/22 11:31 19 158/85 H 90 Pulse Ox Pulse Ox Pulse Ox Pulse Ox Pulse Ox O2 Del Method O2 Del Method 05/20/22 19:00 92 Room Air 05/20/22 19:16 Room Air 05/20/22 16:00 05/20/22 15:59 90 81 L 92 92 05/20/22 15:38 Room Air 05/20/22 11:31 Room Air O2 Flow Rate 05/20/22 19:00 05/20/22 19:16 05/20/22 16:00 05/20/22 15:59 2 05/20/22 15:38 05/20/22 11:31 (1) Anemia Anemia type: unspecified type Qualified Code(s): D64.9 - Anemia, unspecified
[2022-05-21] MEDS: DOXYCYCLINE HYCLATE 100 MG in DEXTROSE 5% 100 ML IV SCH (05:54)
[2022-05-21 07:39] LABS: BUN Creatinine Ratio 20.9 (10-20); Calcium 9.8 mg/dl (8.5-10.1); Creatinine Clr Calc Pharmacy 58.9 ml/min; Est GFR (African American) 49.7 ml/min; Est GFR (Non-African American) 42.9 ml/min; Potassium 3.7 mmol/L (3.5-5.1)
[2022-05-21] MEDS: FOLIC ACID 1 MG TAB PO SCH (08:13)
[2022-05-21] MEDS: NICOTINE 14 MG/24 HR PATCH TD SCH (08:13)
[2022-05-21] MEDS: amLODIPine BESYLATE 5 MG TAB PO SCH (08:14)
[2022-05-21] MEDS: THIAMINE HCL 100 MG TAB PO SCH (08:14)
[2022-05-21] MEDS: predniSONE 20 MG TAB PO SCH (08:14)
[2022-05-21] MEDS: METOPROLOL SUCC 25MG EXT REL TAB PO SCH (08:14)
[2022-05-21] MEDS: PANTOprazole 40 MG TAB PO SCH (08:14)
[2022-05-21] MEDS: ENOXAPARIN INJ 40 MG/0.4 ML SYR SQ SCH (08:15)
[2022-05-21] MEDS ORDERED: METHADONE HCL 10 MG TAB PO SCH (09:00)
[2022-05-21] MEDS: bisacodyL 5 MG TABEC PO PRN (11:19)
--- NOTE | 2022-05-21 12:40 | Discharge Summary ---
Date of Service May 21, 2022 Admission HPI Per Admitting Provider 56-year-old female with PMH COPD, HTN, GERD, methadone maintenance, osteoarthritis, depression, and other problems listed below who presents to the ED for evaluation of altered mental status. History is somewhat limited from the patient. She reports that she went to bed feeling well last evening. States that her friend was concerned about her this morning because she could not open her eyes. EMS was called and patient was brought to the ED for further evaluation. Patient admits to taking 1 Xanax tablet (dose unknown) last evening however she is not prescribed Xanax. This morning, patient reports she had nausea and 1 episode of vomiting. Denies hematemesis and coffee-ground emesis. Denies any recent bright red bleeding per rectum or dark tarry stools. No abdominal pain. In the ED, patient was hypoxic on room air at 75%. She is currently requiring BiPAP. Labs show Hgb 7.9, platelets 45K, lactate 5.3. Patient was given IVF, IV Zosyn, Narcan, IV Solu-Medrol, magnesium replacement, IV lorazepam, calcium replacement, nebulizer treatment. Admission Exam Per Admitting Provider Constitutional: WD/WN, vitals as above + ill appearing; no acute distress Eyes: PERRL, conjunctivae normal, anicteric sclerae ENMT: external ear and nose normal, oropharynx normal Mouth: + poor dentition Respiratory: normal respiratory effort; no respiratory distress Auscultation: + diminished lung sounds and + wheezes (Bilateral, expiratory) On BiPAP Cardiovascular: Rate/Rhythm: regular rate and regular rhythm Vessels: normal peripheral pulses Extremities: no edema Gastrointestinal (Abdomen): Inspection/Auscultation: normal bowel sounds Percussion/Palpation: + abdomen tender (Mild epigastric and RUQ) and abdomen soft; no hepatosplenomegaly Musculoskeletal: no cyanosis or clubbing, extremities motor strength 5/5 Skin: no rashes, warm and dry Neurologic: PERRL, EOMI, accommodation nl, no face palsy, no dysarthria Psychiatric: Orientation: alert, oriented to person and oriented to place; + not oriented to time Principal Diagnosis Acute respiratory failure with hypoxia: Elevated lactic acid level: Elevated troponin: KARLA (acute kidney injury): Thrombocytopenia: Anemia: Hepatitis C test positive: HTN (hypertension): GERD (gastroesophageal reflux disease): Methadone maintenance therapy patient: Discharge Exam General- No acute distress Head- atraumatic Eyes- PERRL, EOMI, ENT- oropharynx clear Neck- supple, no JVD Lungs- diminished breath sound Heart- regular rhythm; no murmur Abdomen- normal bowel sounds, soft, nontender Extremities- no calf tenderness Neuro- alert, oriented x 3; PERRL, EOMI; no facial palsy; no dysarthria Skin- warm & dry Discharge Data Allergies Allergy/AdvReac Type Severity Reaction Status Date / Time No Known Allergies Allergy Verified 05/16/22 16:53 Consultations 05/16/22 14:39 ED Decision to Admit Stat 05/16/22 17:08 Consult Skiver Sock Linings Routine Ordered Studies 05/16/22 15:15 CT abd pelvis wo con Urgent CT chest diagnostic wo con Urgent 05/16/22 18:47 CT head/brain wo con Urgent Laboratory Results WBC 11.69 K/ul (4.8-10.8) H 05/18/22 06:03 RBC 4.47 M/uL (3.93-5.22) 05/18/22 06:03 Hgb 13.2 g/dl (12.0-16.0) 05/18/22 06:03 Hct 41.7 % (34.1-44.9) 05/18/22 06:03 MCV 93.3 fL (80.0-100.0) 05/18/22 06:03 MCH 29.5 pg (25.0-34.0) 05/18/22 06:03 MCHC 31.7 g/dL (32.0-36.0) L 05/18/22 06:03 RDW Std Deviation 61.8 fL (36.4-46.3) H 05/18/22 06:03 RDW Coeff of Cee 18.5 % (11.5-14.5) H 05/18/22 06:03 Plt Count 89 K/uL (130-400) L 05/18/22 06:03 MPV 12.1 fL (9.4-12.3) 05/18/22 06:03 Immature Gran % (Auto) 1.2 % 05/16/22 20:43 Neut % (Auto) 87.8 % 05/16/22 20:43 Lymph % (Auto) 4.8 % 05/16/22 20:43 Anderson % (Auto) 6.0 % 05/16/22 20:43 Eos % (Auto) 0.0 % 05/16/22 20:43 Baso % (Auto) 0.2 % 05/16/22 20:43 Neut # (Auto) 9.79 K/uL (1.4-6.5) H 05/16/22 20:43 Lymph # (Auto) 0.54 K/uL (1.2-3.4) L 05/16/22 20:43 Anderson # (Auto) 0.67 K/uL (0.24-0.82) 05/16/22 20:43 Eos # (Auto) 0.00 K/uL (0-0.50) 05/16/22 20:43 Baso # (Auto) 0.02 K/uL (0-0.2) 05/16/22 20:43 Immature Gran # (Auto) 0.13 K/uL (0.00-0.02) H 05/16/22 20:43 Absolute Nucleated RBC 0.03 K/uL (0-0) H 05/18/22 06:03 Nucleated RBC % (auto) 0.3 % 05/18/22 06:03 Echinocytes 05/16/22 13:09 Peripher Smr Path Cons 05/16/22 20:43 PT 11.4 Seconds (9.0-12.0) 05/18/22 06:03 INR 1.1 (0.9-1.1) 05/18/22 06:03 Fibrinogen 375 mg/dl (184-400) 05/16/22 20:41 ABG pH 7.36 (7.35-7.45) 05/16/22 20:42 ABG pCO2 64 mmHg (35-46) H 05/16/22 20:42 ABG pO2 78 mmHg (80-95) L 05/16/22 20:42 ABG HCO3 36 mmol/L (19-24) H 05/16/22 20:42 ABG O2 Saturation 95.7 % (90-95) H 05/16/22 20:42 ABG Base Excess 8.4 mEq/L (-9-1.8) H 05/16/22 20:42 Shawn Test POS (Pos) 05/16/22 20:42 Barometric Pressure Cancelled 05/16/22 15:15 Oxygen Given 40% FiO2 05/16/22 20:42 Sodium 140 mmol/L (136-145) 05/21/22 05:37 Potassium 3.7 mmol/L (3.5-5.1) 05/21/22 05:37 Chloride 99 mmol/L (98-107) 05/21/22 05:37 Carbon Dioxide 33 mmol/L (21-32) H 05/21/22 05:37 Anion Gap 8 (3-11) 05/21/22 05:37 BUN 29 mg/dl (6-23) H 05/21/22 05:37 Creatinine 1.39 mg/dl (0.6-1.2) H 05/21/22 05:37 Est Cr Clr Drug Dosing 58.9 ml/min 05/21/22 05:37 Est GFR ( Amer) 49.7 ml/min 05/21/22 05:37 Est GFR (Non-Af Amer) 42.9 ml/min 05/21/22 05:37 BUN/Creatinine Ratio 20.9 (10-20) H 05/21/22 05:37 Glucose 59 mg/dl (70-99(Fasting)) L 05/21/22 05:37 POC Glucose 102 mg/dl (70-99) H 05/17/22 23:40 Osmolality 301 mOsm/kg (280-300) H 05/16/22 14:32 Lactate 1.0 mmol/L (0.4-2.0) 05/17/22 01:31 Calcium 9.8 mg/dl (8.5-10.1) 05/21/22 05:37 Magnesium 2.1 mg/dl (1.7-2.4) 05/17/22 05:29 Iron 23 mcg/dl (35-150) L 05/16/22 12:26 Transferrin 365 mg/dl (200-360) H 05/16/22 12:26 Ferritin 55.5 ng/ml (8-388) 05/16/22 12:26 Total Bilirubin 0.9 mg/dl (0.2-1.0) 05/16/22 13:09 AST 62 U/L (13-39) H 05/16/22 13:09 ALT 27 U/L (7-52) 05/16/22 13:09 Alkaline Phosphatase 120 U/L (34-104) H 05/16/22 13:09 Total Creatine Kinase 126 U/L (26-192) 05/16/22 16:08 Troponin I High Sens 627.7 pg/ml (0-14) H* 05/17/22 01:30 Total Protein 6.4 gm/dl (6.0-8.3) 05/16/22 13:09 Albumin 3.1 gm/dl (3.4-5.0) L 05/16/22 13:09 Globulin 3.3 gm/dl (2.5-4.0) 05/16/22 13:09 Albumin/Globulin Ratio 0.9 (0.9-2) 05/16/22 13:09 Vitamin B12 559 pg/ml (180-914) 05/16/22 20:41 Folate 5.54 ng/ml (>5.38) 05/16/22 20:41 Procalcitonin 0.29 ng/ml (0-0.5) 05/16/22 14:32 TSH 0.380 uIu/ml (0.300-4.500) 05/16/22 16:08 Urine Color Dark Yellow 05/16/22 15:45 Urine Appearance Cloudy (Clear) A 05/16/22 15:45 Urine pH 5.0 (4.5-7.5) 05/16/22 15:45 Ur Specific [place] 1.018 (1.000-1.030) 05/16/22 15:45 Urine Protein 1+ (Negative) H 05/16/22 15:45 Urine Glucose (UA) Negative (Negative) 05/16/22 15:45 Urine Ketones Trace (Negative) H 05/16/22 15:45 Urine Blood Negative (Negative) 05/16/22 15:45 Urine Nitrite Negative (Negative) 05/16/22 15:45 Urine Bilirubin 1+ (Negative) H 05/16/22 15:45 Urine Urobilinogen Negative (Negative) 05/16/22 15:45 Ur Leukocyte Esterase Negative (Negative) 05/16/22 15:45 Urine WBC (Auto) 1-5 /hpf (0-5) 05/16/22 15:45 Urine RBC (Auto) 5-10 /hpf (0-4) H 05/16/22 15:45 U Hyaline Cast (Auto) 5-10 /lpf (0-5) H 05/16/22 15:45 U Epithel Cells (Auto) >30 /lpf (0-5) H 05/16/22 15:45 Urine Bacteria (Auto) Negative (Negative) 05/16/22 15:45 Urine Osmolality 428 mOsm/kg (500-800) L 05/16/22 15:45 Ur Random Creatinine 154.6 mg/dl 05/16/22 15:45 Ur Random Creatinine 156.6 mg/dl 05/16/22 15:45 U Random Total Protein 94.7 mg/dl (0-11.9) H 05/16/22 15:45 Ur Random Sodium 46 mmol/L 05/16/22 15:45 Protein/Creatinin Ratio 0.6 (0-0.2) H 05/16/22 15:45 Urine Test Negative (Negative) 05/16/22 15:40 Nasal Screen MRSA (PCR) Negative (Negative) 05/16/22 16:06 POC Stool Occult Blood Negative (Negative) 05/16/22 17:00 Salicylates < 3.0 mg/dl (3.0-30) L 05/16/22 14:32 Urine Opiates Screen Neg (Neg) 05/16/22 15:45 Ur Methadone, Qual Pos (Neg) H 05/16/22 15:45 U Methadone Metabolites >17697 ng/mL (<100) H 05/16/22 15:45 Ur Methadone Confirm >69022 ng/mL (<100) H 05/16/22 15:45 Acetaminophen < 3 ug/ml (10-30) L 05/16/22 14:32 Urine Barbiturates Neg (Neg) 05/16/22 15:45 Ur Phencyclidine (PCP) Neg (Neg) 05/16/22 15:45 U Amphetamin/Meth Scrn Neg (Neg) 05/16/22 15:45 MDMA (Ecstasy) Screen Neg (Neg) 05/16/22 15:45 U OH-Alprazolam Confrm NEGATIVE ng/mL (<25) 05/16/22 15:45 U Benzodiazepines Scrn Pos (Neg) H 05/16/22 15:45 7-Amino Clonazepam NEGATIVE ng/mL (<25) 05/16/22 15:45 Ur Nordiazepam Confirm NEGATIVE ng/mL (<50) 05/16/22 15:45 U OH-ethylflurazepam NEGATIVE ng/mL (<50) 05/16/22 15:45 U Lorazepam Cnf GC/MS NEGATIVE ng/mL (<50) 05/16/22 15:45 U Oxazepam Confm GC/MS NEGATIVE ng/mL (<50) 05/16/22 15:45 Ur Temazepam Confirm NEGATIVE ng/mL (<50) 05/16/22 15:45 U OH-Triazolam Confirm NEGATIVE ng/mL (<50) 05/16/22 15:45 U OH-Midazolam Confirm NEGATIVE ng/mL (<50) 05/16/22 15:45 Ur Cocaine Metabolite Neg (Neg) 05/16/22 15:45 U Marijuana (THC) Screen Neg (Neg) 05/16/22 15:45 Drug Screen Comment SEE NOTE 05/16/22 15:45 Ethyl Alcohol mg/dL < 10.0 mg/dl (<10.0) 05/16/22 14:32 Complement C3 119 mg/dL (83-193) 05/17/22 05:29 Complement C4 33 mg/dL (15-57) 05/17/22 05:29 Tot Complement (CH50) >60 U/mL (31-60) H 05/17/22 05:29 Anaplasma Smear See Comment 05/16/22 20:43 Babesia Smear See Comment 05/16/22 20:43 Lyme Disease IgG Ab Negative (Negative) 05/16/22 16:53 Lyme Disease IgM Ab Negative (Negative) 05/16/22 16:53 SARS-CoV-2 (PCR) NEGATIVE (Negative) 05/16/22 12:36 Influenza Type A (PCR) Negative (Neg) 05/16/22 12:36 Influenza Type B (PCR) Negative (Neg) 05/16/22 12:36 RSV (RT-PCR) Negative (Neg) 05/16/22 12:36 Impressions Chest X-Ray 05/16/22 00:00 XR chest 1V portable HISTORY: 56 years-old Female Dyspnea acute shortness of breath COMPARISON: None TECHNIQUE: Portable AP view of the chest FINDINGS: Cardiac silhouette is mildly enlarged. Pulmonary vascular congestion. Atherosclerosis of the thoracic aorta. There is no pneumothorax or large pleural effusion. Mild blunting of the lateral left costophrenic angle. Degenerative changes of the shoulders and spine. IMPRESSION: 1. Cardiomegaly with pulmonary vascular congestion. 2. Blunting of the lateral left costophrenic angle, likely secondary to atelectasis versus scarring. ACT 112: Negative or not required by law. The above report was generated using voice recognition software. It may contain grammatical, syntax or spelling errors. Electronically signed by: Raman Le M.D. 05/16/2022 1:55 PM Abdomen/Pelvis CT 05/16/22 15:[address] WITHOUT CONTRAST CT DOSE: 2334.85 mGy.cm HISTORY: sepsis, right upper quadrant abdominal pain TECHNIQUE: Multiaxial CT images of the abdomen and pelvis were performed without contrast. A dose lowering technique was utilized adhering to the principles of ALARA. COMPARISON STUDY: None. FINDINGS: Patchy bibasilar densities are better appreciated on the same day chest CT. There is a right total hip arthroplasty. No fractures within the visualized osseous structures. Focal area of intraluminal gas within the left common femoral vein. This is indeterminate but could be due to prior intravenous line insertion. Mild body wall edema is noted. Small amount of sludge/stones noted within the gallbladder. No gallbladder wall thickening. Hepatic steatosis. The unenhanced pancreas and adrenal glands are unremarkable. There are few splenic calcified granulomas. Mild calcified plaque within the normal caliber abdominal aorta. No retroperitoneal or pelvic lymphadenopathy. A 2.2 cm hypodense lesion within the left kidney. This is incompletely characterized on this noncontrast study. No renal or ureteral stones. No hydronephrosis. The bladder is decompressed by a Ernandez catheter. The uterus and bilateral adnexa are within normal limits. Suboptimal evaluation for bowel pathology due to the lack of intravenous and oral contrast. However, there is no definite bowel wall thickening or obstruction. Normal appendix. There is a 2.1 cm hypodense lesion within the right lower quadrant adjacent to the iliac vessels on image 339. This is indeterminate but favors a benign lesion. IMPRESSION: 1. Patchy bibasilar densities are better appreciated on the same day chest CT. 2. No definite bowel wall thickening or obstruction. 3. Normal appendix. 4. No hydronephrosis. 5. Hepatic steatosis. 6. Small amount of sludge/stones within the gallbladder. No definite gallbladder wall thickening. 7. A 2.2 cm hypodense lesion within the right kidney. This is incompletely characterized on this noncontrast study but statistically represents a cyst. Follow-up nonemergent renal ultrasound recommended for confirmation. 8. An indeterminate 2.1 cm hypodense lesion within the right lower quadrant adjacent to the leg vessels. This is likely benign. 6 month abdomen and pelvis CT follow-up recommended to ensure stability. 9. Intraluminal gas within the left common femoral vein. This may be related to prior intravenous line insertion. ACT 112: Positive. There are findings on this exam that require communication between the performing entity and the patient following Patient Test Result Information Act ([place] Act 112) guidelines. Electronically signed by: John Bowers M.D. 05/16/2022 5:[address] 05/16/22 15:15 CT chest diagnostic wo con CT DOSE: HISTORY: sepsis, resp failure TECHNIQUE: Multiaxial CT images of the chest were performed without contrast. A dose lowering technique was utilized adhering to the principles of ALARA. COMPARISON: None. FINDINGS: Partial opacification of the bilateral lower lobe distal bronchi with patchy bibasilar densities within the base of the lower lobes. This is concerning for a pneumonia and could be due to aspiration. No pneumothorax. No pleural effusions. There is a calcified granuloma within the right lower lobe. There is a 5 mm nodular density within the right lung apex on image 65. There are few focal nodular airspace opacities within the right middle lobe. There are patchy groundglass densities within the upper lobes posteriorly. This could represent a combination of dependent change and pneumonia. No suspicious lytic or blastic osseous lesions. There is normal, healed left anterior second rib fracture. Hepatic steatosis. Small amount of fluid within the nondistended esophagus. No mediastinal or hilar lymphadenopathy. The heart is mildly enlarged. Mild calcified plaque within the normal caliber thoracic aorta. No pericardial effusion. The main pulmonary measures up to 3.6 and recent diameter consistent with pulmonary arterial hypertension. There is mild interlobular sep cecelia thickening seen within the lungs. This could represent mild congestive change. IMPRESSION: 1. Partial opacification of the distal bilateral lobe bronchi with patchy bibasilar densities. This favors a pneumonitis and could be due to aspiration. 2. Mild cardiomegaly with mild interlobular septal thickening suggestive of mild congestive change. 3. Mild pulmonary arterial hypertension. 4. A 5 mm nodule within the right lung apex which could be due to the inflammatory/infectious change. [address] follow-up recommended to ensure resolution. 5. Additional patchy densities within the upper lobes posteriorly which may represent a combination of the pneumonitis and dependent change. 6. Hepatic steatosis. ACT 112: Negative or not required by law. Electronically signed by: John Bowers M.D. 05/16/2022 5:[address] 05/16/22 18:[address] DOSE: 3070.74 mGy.cm HISTORY: encephalopathy with thrombocytopenia TECHNIQUE: Multiaxial CT images of the head were performed without the use of intravenous contrast. Automated exposure control was utilized for this study. A dose lowering technique was utilized adhering to the principles of ALARA. Comparison: None. Findings: The paranasal sinuses and mastoid air cells are clear. The calvarium and skull base are intact. There is no mass, hematoma, midline shift, acute infarct. White matter hypodensity is nonspecific but suggestive of microvascular ischemic change. The ventricles and sulci demonstrate mild age-related involutional changes. Impression: No acute intracranial abnormality. ACT 112: Negative or not required by law. Electronically signed by: John Bowers M.D. 05/17/2022 7:10 AM Hospital Course (1) Acute respiratory failure with hypoxia: (2) Elevated lactic acid level: Present on admission with worsening sob and lethargy In the ED, patient was hypoxic on room air at 75%, currently requiring BiPAP therapy. CT head showed partial opacification of the distal bilateral lobe bronchi with patchy bibasilar densities. Additional patchy densities within the upper lobes posteriorly which may represent a combination of the pneumonitis and dependent change. ABG pH 7.34, PCO2 64, PO2 81, HCO3 35; anion gap 23 on admission On Ceftriaxone and doxycycline Blood cx no growth Systemic corticosteroids discontinued Continue PO steroid Continue neb treatment Currently on IV ceftriaxone and doxycycline, will transition to oral on discharge 2 step exercise done today and pt require 2 L NC oxygen with ambulation (3) Elevated troponin: Likely due to demand ischemic from hypoxia troponin on admission 611 then peak to 718, now trending down EKG without acute ST changes Echo showed no wall motion abnormality with EF 55-60% denies any chest pain (4) KARLA (acute kidney injury): Creat 1.8, Creatinine 0.7 back in 11/2020 Ernandez in with adequate urine output Continue IVF Creatinine 1.5 today Continue avoid nephrotoxic agents (5) Thrombocytopenia: Platelet level 89 today Continue monitor CBC (6) Anemia: Hgb 7.9 on admission seem to be lab error No blood tranfusion given Hgb 13.2 Continue monitor CBC (7) Hepatitis C test positive: Hepatitis C antibody + 01/2021 Will need outpatient management (8) HTN (hypertension): Continue amlodipine and metoprolol Continue monitor BP (9) GERD (gastroesophageal reflux disease): Continue PPI, will transition to PO am (10) Methadone maintenance therapy patient: On methadone 106 mg daily, confirmed with [facility], last dose 05/15 I tried to call the Methadone clinic but it was closed Methadone 50mg was given yesterday, will give methadone 80mg today I called the methadone facility about today dose for the methadone since pt was drowsy in the last 2 days and now mental status improves They will schedule pt on Saturday to see a physician. No guidance was given for today dose or tomorrow Methadone 100mg given today (11) Recurrent major depressive disorder: Hold home duloxetine Lung Nodule CT chest showed 5 mm nodule within the right lung apex which could be due to the inflammatory/infectious change. Follow up with CT in 6 months (12) DVT prophylaxis: SCDs due to anemia/thrombocytopenia Total Time Total Time Spent Total Time Spent (In Minutes): 35 minutes Discharge Plan Discharge Items Patient Disposition: Home - Self-Care Reason For Visit: RESP FAILURE Discharge Diagnosis: Acute respiratory failure with hypoxia: Elevated lactic acid level: Elevated troponin: KARLA (acute kidney injury): Thrombocytopenia: Anemia: Hepatitis C test positive: HTN (hypertension): GERD (gastroesophageal reflux disease): Methadone maintenance therapy patient: Activity: Resume your previous activity Non-emergency contact: Primary Care Provider Call non-emergency contact if: you have any medication questions and your symptoms worsen Follow-up/Referrals: Joe Lockwood DO [Primary Care Provider] - 05/25/22 11:20 am (Date & Time 05/25/2022 11:20 AM Provider Joe Lockwood DO Department Family [facility] ) Diet: Heart Healthy Addtl Attending Provider Instructions: Follow up with your primary care provider on 05/25/2022 @ 11:20 AGUSTINA Lockwood DO Department [facility] Follow up with your Methadone clinic tomorrow Continue oxygen supplement with 2 Liter Nasal [place] with ambulation You will need a repeat CT chest in 6 months for the right lung nodule seen ( Your provider will arrange it) Counseling on tobacco cessation Do not take any Benzodiazepine such as Xanax, Ativan, Diazepam while on Methadone due to risk of drowsiness and respiratory distress Check BMP in 1 week to monitor renal function Check CBC in 1 week to monitor your platelet count Avoid any NSAID such as Motrin, Aleve, Naproxen, Ibuprofen, Advil,... due to risk of bleeding Pending Studies at Discharge: Yes Studies:: Follow up complement factor Stand-Alone Forms: My [facility] [employer], Smoking Cessation Medications and DC Order Prescriptions: New bisacodyl [Gentle Laxative (bisacodyl)] 5 mg Tablet,Delayed Release (Dr/Ec) 5 mg PO DAILY PRN (Reason: constipation) Qty: 30 0RF folic acid 1 mg Tablet 1 mg PO QAM Qty: 30 0RF thiamine HCl (vitamin B1) 100 mg Tablet 100 mg PO QAM Qty: 30 0RF prednisone 20 mg Tablet 20 mg PO DAILY Qty: 3 0RF doxycycline hyclate 100 mg tablet 100 mg PO BID 3 Days Qty: 6 0RF Continued amlodipine 10 mg tablet 10 mg PO DAILY omeprazole 20 mg capsule,delayed release(DR/EC) 20 mg PO DAILY hydroxyzine HCl 25 mg tablet 25 - 50 mg PO HS PRN (Reason: Insomnia) metoprolol succinate 25 mg tablet extended release 24 hr 25 mg PO BID duloxetine 30 mg capsule,delayed release(DR/EC) 30 mg PO DAILY methadone 40 mg Tablet,Soluble 106 mg PO DAILY Discharge Orders: Discharge Order (Routine); Ordered 05/21/22 Ordered By: Mikey Camacho Admission Data Admit Date/Time: 05/16/22 15:19 Attending Provider: Mikey Camacho Admit Provider: Luz Marina Mercado Primary Care Provider: Joe Lockwood Other Providers: Luz Marina Mercado ; Daron Saldivar Other Interventions: Discharge Summary Assessment (RN) Last Done: 05/21/22 13:07
[2022-05-21 15:36] LABS: Complement C3 119 mg/dL (83-193); Complement Total(CH50) >60 U/mL (31-60)
== END 2022-05-21 14:13 | disposition home or self-care (01) | DRG 189 ==
LOC: EDSEX → ED 11:20 → 1E 15:19 → SUATTDRO 15:19 → 1E 18:20 → 2S 05-19 03:55

== ENCOUNTER 2022-09-12 23:30 | Inpatient (IN) ==
[2022-09-12] MEDS ORDERED: SODIUM CHLORIDE 0.9% 1000ML 1,000 ML IV SCH (23:45)
[2022-09-13] MEDS ORDERED: CALCIUM GLUCONATE 1,000 MG/60 ML BAG IV STA (00:01)
[2022-09-13] MEDS ORDERED: CALCIUM CHLORIDE 10% 10 ML SYR IV ONE (00:02)
[2022-09-13] MEDS ORDERED: MAGNESIUM SULFATE 1GM / D5W BAG IV ONE (00:02)
[2022-09-13] MEDS: MAGNESIUM SULFATE / D5W 1 GM/100 ML BAG IV SCH ×2 (00:08→00:48)
[2022-09-13] MEDS ORDERED: POTASSIUM CHLORIDE CRTAB 20 MEQ TABCR PO STA ×2 (00:09→14:18)
[2022-09-13 00:15] LABS: Basophils # (auto) 0.03 K/uL (0-0.2); Basophils % (auto) 0.3 %; Eosinophils # (auto) 0.02 K/uL (0-0.50); Eosinophils % (auto) 0.2 %; Hematocrit (blood only) 36.8 % (37.0-47.0); Hemoglobin 12.7 g/dl (12.0-16.0); Immature Granulocytes # (auto) 0.06 K/uL (0.01-0.20); Immature Granulocytes % (auto) 0.7 %; Lymphocytes # (auto) 0.93 K/uL (1.2-3.4); Lymphocytes % (auto) 10.3 %; Mean Corpuscular Hemoglobin 32.6 pg (25.0-34.0); Mean Corpuscular Hgb Conc 34.5 g/dL (32.0-36.0); Mean Corpuscular Volume 94.6 fL (80.0-100.0); Mean Platelet Volume 10.2 fL (9.4-12.4); Monocytes # (auto) 0.62 K/uL (0.11-0.59); Monocytes % (auto) 6.9 %; Neutrophils # (auto) 7.36 K/uL (1.40-6.50); Neutrophils % (auto) 81.6 %; Nucleated RBC # (auto) 0.02 K/uL (0-0.12); Nucleated RBC % (auto) 0.2 %; Platelet Count 109 K/uL (130-400); RDW Coefficient of Variation 13.8 % (11.5-14.5); RDW Standard Deviation 47.6 fL (36.4-46.3); Red Blood Count 3.89 M/uL (4.20-5.40); White Blood Count 9.02 K/ul (4.8-10.8)
[2022-09-13] MEDS: POTASSIUM CHLORIDE / WTR 10 MEQ/100 ML PLCT IV SCH ×4 (00:17→09:48)
[2022-09-13 00:31] LABS: INR 1.1 (0.9-1.1); Partial Thromboplastin Time 27.1 Seconds (21.0-31.0); Prothrombin Time 11.4 Seconds (9.0-12.0)
[2022-09-13 00:34] LABS: Alanine Aminotransferase 33 U/L (7-52); Albumin Globulin Ratio 1.3 (0.9-2); Alkaline Phosphatase 234 U/L (34-104); Anion Gap 11 (3-11); Aspartate Aminotransferase 62 U/L (13-39); BUN Creatinine Ratio 9.3 (10-20); Bilirubin,Total 0.7 mg/dl (0.2-1.0); Blood Urea Nitrogen 9 mg/dl (6-23); Calcium 9.4 mg/dl (8.5-10.1); Carbon Dioxide 36 mmol/L (21-32); Chloride 90 mmol/L (98-107); Est GFR (African American) 76.2 ml/min; Est GFR (Non-African American) 65.8 ml/min; Globulin 3.2 gm/dl (2.5-4.0); Glucose 105 mg/dl (70-99(Fasting)); Magnesium 1.5 mg/dl (1.7-2.4); Phosphorus 2.2 mg/dl (2.5-4.9); Potassium 2.7 mmol/L (3.5-5.1); Sodium 137 mmol/L (136-145); Total Protein 7.2 gm/dl (6.0-8.3)
[2022-09-13] MEDS ORDERED: ONDANSETRON INJ 2 MG/ML 2 ML VIAL ONE (00:38)
[2022-09-13] MEDS ORDERED: LORazepam 2 MG/1 ML VIAL ONE (00:40)
[2022-09-13] MEDS ORDERED: FAMOTIDINE 20MG/5ML IV PUSH IV ONE (00:48)
[2022-09-13 01:05] LABS: Influenza A virus by PCR Negative (Neg); Influenza B virus by PCR Negative (Neg); RSV by PCR Negative (Neg); SARS CoV2 RNA(COVID-19) Ceph NEGATIVE (Negative)
[2022-09-13 01:17] LABS: Appearance Urine Clear (Clear); Bilirubin Urine Negative (Negative); Blood Urine Negative (Negative); Color Urine Yellow; Glucose Urine UA Negative (Negative); Ketones Urine Negative (Negative); Leukocyte Esterase Urine Negative (Negative); Nitrite Urine Negative (Negative); Protein Urine Negative (Negative); Specific Gravity Urine 1.003 (1.000-1.030); Urobilinogen Urine Negative (Negative); pH Urine 8.5 (4.5-7.5)
[2022-09-13 01:17] LABS: iSTAT Creatinine 0.8 mg/dl (0.6-1.3); iSTAT Hemoglobin 13.6 g/dl (12.0-16.0); iSTAT Ionized Calcium 0.98 mmol/l (1.12-1.32); iSTAT Potassium 2.5 mmol/L (3.3-5.0)
[2022-09-13] MEDS ORDERED: POTASSIUM PHOS 3 MMOL/1 ML INFUSION IV STA (01:18)
[2022-09-13] MEDS ORDERED: POTASSIUM PHOSPHATE 18 MMOL in SODIUM CHLORIDE 0.9% 500 ML IV ONE (01:30)
[2022-09-13] MEDS ORDERED: ALUMINUM/MAGNESIUM SUSP 30 ML UDC PO STA (02:04)
[2022-09-13 02:11] LABS: Amphetamines+Metham, Urine Neg (Neg); Barbiturates, Urine Neg (Neg); Benzodiazepine, Urine Neg (Neg); Cocaine, Urine Neg (Neg); MDMA (Ecstacy), Urine Neg (Neg); Methadone, Urine Pos (Neg); Opiate, Urine Neg (Neg); Phencyclidine, Urine Neg (Neg)
--- NOTE | 2022-09-13 04:52 | Emergency Department Note ---
Impression & Plan Frequent PVCs, PAC (premature atrial contraction), Muscle cramp ED Provider Note CHIEF COMPLAINT: Dizziness, syncopal episodes HISTORY OF PRESENT ILLNESS: This 57-year-old female with a history of alcohol abuse, hepatitis C, endocarditis, on chronic methadone therapy patient presents to the emergency department with complaints of dizziness, arm cramping and syncope. The patient states she is an alcoholic and is trying to stop drinking. She also began vaping recently in an effort to stop smoking cigarettes. Patient has been wearing a nicotine patch. She states she took it off of it earlier. Patient states her abdomen has been bloated and she feels like she has to urinate but cannot. Read at the bedside states that he has been trying to help her wean from alcohol. He felt her symptoms today could be related to alcohol withdrawal so he gave her a shot of vodka and 2 of her premixed drinks, when she would normally have 5 or more daily. Patient denies any recent illnesses, cough, vomiting, diarrhea. REVIEW OF SYSTEMS: A review of systems was performed with positives and pertinent negatives listed in the history of present illness. 10 systems were reviewed and are otherwise negative. ALLERGIES: see below MEDICATIONS: see below PMH: see below SOCIAL HISTORY: see below DDx: Vasovagal event, dehydration, infection, hypoglycemia, electrolyte abnormalities, cardiac sources, intracerebral event, pulmonary embolism, seizure, toxicologic, neurologic, as well as other pathologies. PHYSICAL EXAM: Vital signs reviewed. General: Chronically ill appearing 57-year-old female, in some discomfort. HEENT: No scleral icterus, PERRLA, neck supple. Atraumatic. Cardiovascular: Irregular but rate controlled. No extra sounds Pulmonary: Clear to auscultation bilaterally, normal work of breathing. Abdomen: Soft, obese, nontender, distended, positive bowel sounds. Musculoskeletal: Atraumatic, no peripheral edema. Neurologic: Patient awake alert and oriented x 3 Skin: Warm, dry, no rash EMERGENCY DEPARTMENT COURSE/MDM: This patient was evaluated and appeared to be in some discomfort. IV access was obtained and laboratory work was drawn. External medical records were reviewed. The patient was placed on the hand mold maker was noted to be in a likely sinus bradycardia with frequent ectopy. The patient's laboratory work reveals a potassium of 2.5 on i-STAT. She was given 40 mill equivalents of p.o. potassium and 210 mill equivalent K riders were ordered. Patient was also given 2 g of IV magnesium and 1 amp of calcium gluconate. Patient's phosphorus is noted to be 2.2 on laboratory work. After consultation with clinical pharmacist, K-Phos 18 mmol was ordered. Patient's rhythm strip seem to stabilize quite a bit after several hours in the emergency department. She did receive 1 mg of IV Ativan for her anxiety. It is difficult to know how much of the patient's presentation is substance related versus electrolyte depletion however she will be evaluated by the hospitalist service for admission and further management. MONITORING: An order for cardiac monitoring was placed and the patient is noted to be in a sinus rhythm with frequent PVC, PAC at 67 beats per minute. RADIOLOGY: Chest x-ray to my interpretation reveals no evidence of focal infiltrate or failure. Otherwise defer to radiology's overread. EKG: To my interpretation reveals likely an accelerated junctional rhythm at 108 bpm. There are frequent and consecutive PVCs, PACs. Marked ST segment changes. DISPOSITION: Admission I have personally spent greater than 60 minutes of critical care time in the direct management of this patient. This includes bedside care, interpretation of diagnostic studies, and testing, discussion with consultants, patient, and family members, and other required patient management activities. This 60 minutes is in excess of all separately billable procedures. Past Med/Surg History Medical History Acute exacerbation of chronic obstructive pulmonary disease Acute hypoxemic respiratory failure Acute respiratory failure with hypoxia KARLA (acute kidney injury) Anemia COPD (chronic obstructive pulmonary disease) Elevated lactic acid level Elevated troponin GERD (gastroesophageal reflux disease) Hepatitis C test positive HTN (hypertension) Lactic acidosis Methadone maintenance therapy patient Recurrent major depressive disorder Thrombocytopenia Tobacco abuse Surgical History Status post total hip replacement, right Family History Other Family history non-contributory Social History Smoking Status: Current every day smoker Tobacco Type: Cigarettes Hx Alcohol Use: Yes Alcohol type: beer Hx Substance Use: Yes Preferred Language: German Communication Ability: Unable 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 Required: No Beliefs That Will Affect Care: None Current Living Situation: Alone Feels Safe at Home: Yes Assistive Devices: Cane, Stair Lift and Walker Allergies Allergies Allergy/AdvReac Type Severity Reaction Status Date / Time No Known Allergies Allergy Verified 09/12/22 23:56 Home Meds Home Medications Medication Instructions Recorded Confirmed amlodipine 10 mg tablet 10 mg PO DAILY 05/16/22 09/13/22 duloxetine 30 mg capsule,delayed 30 mg PO DAILY 05/16/22 09/13/22 release hydroxyzine HCl 25 mg tablet 25 - 50 mg PO HS PRN Insomnia 05/16/22 09/13/22 methadone 40 mg soluble tablet 100 mg PO DAILY 05/16/22 09/13/22 omeprazole 20 mg capsule,delayed 20 mg PO DAILY 05/16/22 09/13/22 release albuterol sulfate 90 mcg/actuation 2 puff inhalation Q6H PRN Cough 09/12/22 09/13/22 aerosol inhaler nicotine 14 mg/24 hr daily 14 mg transdermal DAILY 09/12/22 09/13/22 transdermal patch bisacodyl 5 mg tablet 5 mg PO HS PRN Constipation 09/13/22 09/13/22 diphenhydramine HCl 25 mg capsule 50 mg PO HS PRN SLEEP/ITCHING 09/13/22 09/13/22 (Benadryl) metoprolol succinate 25 mg 25 mg PO BID 09/13/22 09/13/22 tablet,extended release 24 hr turmeric root extract 500 mg 500 mg PO DAILY 09/13/22 09/13/22 capsule Results & Data (ED) Vital Signs Vital Signs - 24 hr 09/12/22 23:35 09/13/22 00:21 09/13/22 00:20 Temperature 36.4 C L Temperature Source Temporal Artery Scan Pulse Rate 50 L 87 83 Respiratory Rate 30 H 22 Blood Pressure 141/101 H 156/109 H Blood Pressure Mean 114 124 Pulse Oximetry 92 93 Oxygen Delivery Method Nasal Cannula Nasal Cannula Oxygen Flow Rate 2 2 Sepsis Recent Fever Within 48 Hours No Sepsis New/Unexplained Change in Mental Status No Sepsis Action Taken by Nursing No Action Required 09/13/22 00:25 09/13/22 00:30 09/13/22 00:35 Temperature Temperature Source Pulse Rate 91 H 85 94 H Respiratory Rate 24 30 H 26 H Blood Pressure Blood Pressure Mean Pulse Oximetry 92 92 93 Oxygen Delivery Method Nasal Cannula Nasal Cannula Oxygen Flow Rate 4 4 Sepsis Recent Fever Within 48 Hours Sepsis New/Unexplained Change in Mental Status Sepsis Action Taken by Nursing 09/13/22 00:40 09/13/22 00:45 09/13/22 00:50 Temperature Temperature Source Pulse Rate 96 H 86 95 H Respiratory Rate 25 H 15 29 H Blood Pressure Blood Pressure Mean Pulse Oximetry 93 94 92 Oxygen Delivery Method Oxygen Flow Rate Sepsis Recent Fever Within 48 Hours Sepsis New/Unexplained Change in Mental Status Sepsis Action Taken by Nursing 09/13/22 00:55 09/13/22 01:15 09/13/22 01:00 Temperature Temperature Source Pulse Rate 61 82 Respiratory Rate 27 H 24 Blood Pressure 147/96 H Blood Pressure Mean 113 Pulse Oximetry 92 93 91 Oxygen Delivery Method Nasal Cannula Nasal Cannula Oxygen Flow Rate 4 Sepsis Recent Fever Within 48 Hours Sepsis New/Unexplained Change in Mental Status Sepsis Action Taken by Nursing 09/13/22 01:05 09/13/22 01:10 09/13/22 01:11 Temperature Temperature Source Pulse Rate 66 73 65 Respiratory Rate 22 29 H 23 Blood Pressure 142/82 H Blood Pressure Mean 102 Pulse Oximetry 93 90 94 Oxygen Delivery Method Nasal Cannula Nasal Cannula Nasal Cannula Oxygen Flow Rate 4 4 4 Sepsis Recent Fever Within 48 Hours Sepsis New/Unexplained Change in Mental Status Sepsis Action Taken by Nursing 09/13/22 01:15 09/13/22 01:16 09/13/22 01:20 Temperature Temperature Source Pulse Rate 65 65 64 Respiratory Rate 25 H 21 29 H Blood Pressure 139/84 Blood Pressure Mean 102 Pulse Oximetry 93 92 94 Oxygen Delivery Method Nasal Cannula Nasal Cannula Nasal Cannula Oxygen Flow Rate 4 4 4 Sepsis Recent Fever Within 48 Hours Sepsis New/Unexplained Change in Mental Status Sepsis Action Taken by Nursing 09/13/22 01:21 09/13/22 01:25 09/13/22 01:26 Temperature Temperature Source Pulse Rate 64 65 69 Respiratory Rate 21 17 20 Blood Pressure 143/95 H 107/70 Blood Pressure Mean 111 82 Pulse Oximetry 93 92 93 Oxygen Delivery Method Nasal Cannula Nasal Cannula Nasal Cannula Oxygen Flow Rate 4 4 4 Sepsis Recent Fever Within 48 Hours Sepsis New/Unexplained Change in Mental Status Sepsis Action Taken by Nursing 09/13/22 01:30 09/13/22 01:35 09/13/22 01:36 Temperature Temperature Source Pulse Rate 64 79 65 Respiratory Rate 19 17 20 Blood Pressure 127/71 Blood Pressure Mean 89 Pulse Oximetry 94 94 92 Oxygen Delivery Method Nasal Cannula Nasal Cannula Nasal Cannula Oxygen Flow Rate 4 4 4 Sepsis Recent Fever Within 48 Hours Sepsis New/Unexplained Change in Mental Status Sepsis Action Taken by Nursing 09/13/22 01:40 09/13/22 01:45 09/13/22 01:46 Temperature Temperature Source Pulse Rate 64 64 66 Respiratory Rate 21 23 27 H Blood Pressure 169/102 H Blood Pressure Mean 124 Pulse Oximetry 90 91 92 Oxygen Delivery Method Nasal Cannula Nasal Cannula Nasal Cannula Oxygen Flow Rate 4 4 4 Sepsis Recent Fever Within 48 Hours Sepsis New/Unexplained Change in Mental Status Sepsis Action Taken by Nursing 09/13/22 01:50 09/13/22 01:55 09/13/22 02:00 Temperature Temperature Source Pulse Rate 65 68 66 Respiratory Rate 23 19 26 H Blood Pressure 159/88 H Blood Pressure Mean 111 Pulse Oximetry 90 91 96 Oxygen Delivery Method Nasal Cannula Nasal Cannula Nasal Cannula Oxygen Flow Rate 4 4 4 Sepsis Recent Fever Within 48 Hours Sepsis New/Unexplained Change in Mental Status Sepsis Action Taken by Nursing 09/13/22 02:05 09/13/22 02:06 09/13/22 02:10 Temperature Temperature Source Pulse Rate 65 65 64 Respiratory Rate 23 18 19 Blood Pressure 153/103 H Blood Pressure Mean 119 Pulse Oximetry 93 91 94 Oxygen Delivery Method Nasal Cannula Nasal Cannula Nasal Cannula Oxygen Flow Rate 4 4 4 Sepsis Recent Fever Within 48 Hours Sepsis New/Unexplained Change in Mental Status Sepsis Action Taken by Nursing 09/13/22 02:11 09/13/22 02:15 09/13/22 02:20 Temperature Temperature Source Pulse Rate 66 67 66 Respiratory Rate 19 18 19 Blood Pressure 128/83 Blood Pressure Mean 98 Pulse Oximetry 92 91 96 Oxygen Delivery Method Nasal Cannula Nasal Cannula Nasal Cannula Oxygen Flow Rate 4 4 4 Sepsis Recent Fever Within 48 Hours Sepsis New/Unexplained Change in Mental Status Sepsis Action Taken by Nursing 09/13/22 02:21 09/13/22 02:25 09/13/22 02:30 Temperature Temperature Source Pulse Rate 65 64 63 Respiratory Rate 22 17 18 Blood Pressure 123/79 Blood Pressure Mean 93 Pulse Oximetry 95 93 96 Oxygen Delivery Method Nasal Cannula Nasal Cannula Nasal Cannula Oxygen Flow Rate 4 4 4 Sepsis Recent Fever Within 48 Hours Sepsis New/Unexplained Change in Mental Status Sepsis Action Taken by Nursing 09/13/22 02:31 09/13/22 02:41 09/13/22 02:45 Temperature Temperature Source Pulse Rate 63 62 63 Respiratory Rate 22 20 19 Blood Pressure 138/108 H 132/75 Blood Pressure Mean 118 94 Pulse Oximetry 96 95 96 Oxygen Delivery Method Nasal Cannula Nasal Cannula Nasal Cannula Oxygen Flow Rate 4 4 4 Sepsis Recent Fever Within 48 Hours Sepsis New/Unexplained Change in Mental Status Sepsis Action Taken by Nursing 09/13/22 02:46 09/13/22 02:50 09/13/22 02:56 Temperature Temperature Source Pulse Rate 65 65 65 Respiratory Rate 21 21 19 Blood Pressure 141/77 H 131/83 109/81 Blood Pressure Mean 98 99 90 Pulse Oximetry 96 94 93 Oxygen Delivery Method Nasal Cannula Nasal Cannula Nasal Cannula Oxygen Flow Rate 4 4 4 Sepsis Recent Fever Within 48 Hours Sepsis New/Unexplained Change in Mental Status Sepsis Action Taken by Nursing 09/13/22 03:00 09/13/22 03:01 09/13/22 03:05 Temperature Temperature Source Pulse Rate 66 66 64 Respiratory Rate 19 22 17 Blood Pressure 121/81 109/78 Blood Pressure Mean 94 88 Pulse Oximetry 95 94 94 Oxygen Delivery Method Nasal Cannula Nasal Cannula Nasal Cannula Oxygen Flow Rate 4 4 4 Sepsis Recent Fever Within 48 Hours Sepsis New/Unexplained Change in Mental Status Sepsis Action Taken by Nursing 09/13/22 03:10 09/13/22 03:15 09/13/22 04:01 Temperature Temperature Source Pulse Rate 59 L 58 L 57 L Respiratory Rate 17 19 Blood Pressure 114/66 110/67 Blood Pressure Mean 82 81 Pulse Oximetry 95 96 Oxygen Delivery Method Nasal Cannula Nasal Cannula Oxygen Flow Rate 4 4 Sepsis Recent Fever Within 48 Hours Sepsis New/Unexplained Change in Mental Status Sepsis Action Taken by Nursing Laboratory Data 09/12/22 23:55 09/12/22 23:55 Lab Results 09/12/22 09/12/22 09/12/22 Range/Units 23:55 23:55 23:55 WBC 9.02 (4.8-10.8) K/ul RBC 3.89 L (4.20-5.40) M/uL Hgb 12.7 (12.0-16.0) g/dl POC Hgb (12.0-16.0) g/dl Hct 36.8 L (37.0-47.0) % POC Hct (37-47) % MCV 94.6 (80.0-100.0) fL MCH 32.6 (25.0-34.0) pg MCHC 34.5 (32.0-36.0) g/dL RDW Std Deviation 47.6 H (36.4-46.3) fL RDW Coeff of Cee 13.8 (11.5-14.5) % Plt Count 109 L (130-400) K/uL MPV 10.2 (9.4-12.4) fL Immature Gran % (Auto) 0.7 % Neut % (Auto) 81.6 % Lymph % (Auto) 10.3 % Winn % (Auto) 6.9 % Eos % (Auto) 0.2 % Baso % (Auto) 0.3 % Neut # (Auto) 7.36 H (1.40-6.50) K/uL Lymph # (Auto) 0.93 L (1.2-3.4) K/uL Winn # (Auto) 0.62 H (0.11-0.59) K/uL Eos # (Auto) 0.02 (0-0.50) K/uL Baso # (Auto) 0.03 (0-0.2) K/uL Immature Gran # (Auto) 0.06 (0.01-0.20) K/uL Absolute Nucleated RBC 0.02 (0-0.12) K/uL Nucleated RBC % (auto) 0.2 % PT 11.4 (9.0-12.0) Seconds INR 1.1 (0.9-1.1) APTT 27.1 (21.0-31.0) Seconds PTT Ratio 1.0 POC Sodium (135-144) mmol/L Sodium 137 (136-145) mmol/L POC Potassium (3.3-5.0) mmol/L Potassium 2.7 L (3.5-5.1) mmol/L POC Chloride (101-112) mmol/L Chloride 90 L (98-107) mmol/L Carbon Dioxide 36 H (21-32) mmol/L POC Total CO2 (24-31) mmol/L Anion Gap 11 (3-11) POC Anion Gap (16-25) mmol/L POC BUN (7-18) mg/dl BUN 9 (6-23) mg/dl Creatinine 0.97 (0.6-1.2) mg/dl POC Creatinine (0.6-1.3) mg/dl Est Cr Clr Drug Dosing Not Reportable Est GFR ( Amer) 76.2 ml/min Est GFR (Non-Af Amer) 65.8 ml/min BUN/Creatinine Ratio 9.3 L (10-20) Glucose 105 H (70-99(Fasting)) mg/dl POC Glucose (other) (70-99) mg/dl Calcium 9.4 (8.5-10.1) mg/dl POC Ioniz Calcium Chelle (1.12-1.32) mmol/l Phosphorus 2.2 L (2.5-4.9) mg/dl Magnesium 1.5 L (1.7-2.4) mg/dl Total Bilirubin 0.7 (0.2-1.0) mg/dl AST 62 H (13-39) U/L ALT 33 (7-52) U/L Alkaline Phosphatase 234 H (34-104) U/L Total Protein 7.2 (6.0-8.3) gm/dl Albumin 4.0 (3.4-5.0) gm/dl Globulin 3.2 (2.5-4.0) gm/dl Albumin/Globulin Ratio 1.3 (0.9-2) Urine Color Urine Appearance (Clear) Urine pH (4.5-7.5) Ur Specific [place] (1.000-1.030) Urine Protein (Negative) Urine Glucose (UA) (Negative) Urine Ketones (Negative) Urine Blood (Negative) Urine Nitrite (Negative) Urine Bilirubin (Negative) Urine Urobilinogen (Negative) Ur Leukocyte Esterase (Negative) Urine Opiates Screen (Neg) Ur Methadone, Qual (Neg) Urine Barbiturates (Neg) Ur Phencyclidine (PCP) (Neg) U Amphetamin/Meth Scrn (Neg) MDMA (Ecstasy) Screen (Neg) U Benzodiazepines Scrn (Neg) Ur Cocaine Metabolite (Neg) U Marijuana (THC) Screen (Neg) Ethyl Alcohol mg/dL (<10.0) mg/dl SARS-CoV-2 (PCR) (Negative) Influenza Type A (PCR) (Neg) Influenza Type B (PCR) (Neg) RSV (RT-PCR) (Neg) 09/12/22 09/13/22 09/13/22 Range/Units 23:59 00:07 00:15 WBC (4.8-10.8) K/ul RBC (4.20-5.40) M/uL Hgb (12.0-16.0) g/dl POC Hgb 13.6 (12.0-16.0) g/dl Hct (37.0-47.0) % POC Hct 40 (37-47) % MCV (80.0-100.0) fL MCH (25.0-34.0) pg MCHC (32.0-36.0) g/dL RDW Std Deviation (36.4-46.3) fL RDW Coeff of Cee (11.5-14.5) % Plt Count (130-400) K/uL MPV (9.4-12.4) fL Immature Gran % (Auto) % Neut % (Auto) % Lymph % (Auto) % Winn % (Auto) % Eos % (Auto) % Baso % (Auto) % Neut # (Auto) (1.40-6.50) K/uL Lymph # (Auto) (1.2-3.4) K/uL Winn # (Auto) (0.11-0.59) K/uL Eos # (Auto) (0-0.50) K/uL Baso # (Auto) (0-0.2) K/uL Immature Gran # (Auto) (0.01-0.20) K/uL Absolute Nucleated RBC (0-0.12) K/uL Nucleated RBC % (auto) % PT (9.0-12.0) Seconds INR (0.9-1.1) APTT (21.0-31.0) Seconds PTT Ratio POC Sodium 137 (135-144) mmol/L Sodium (136-145) mmol/L POC Potassium 2.5 L* (3.3-5.0) mmol/L Potassium (3.5-5.1) mmol/L POC Chloride 88 L (101-112) mmol/L Chloride (98-107) mmol/L Carbon Dioxide (21-32) mmol/L POC Total CO2 37 H (24-31) mmol/L Anion Gap (3-11) POC Anion Gap 15.0 L (16-25) mmol/L POC BUN 7 (7-18) mg/dl BUN (6-23) mg/dl Creatinine (0.6-1.2) mg/dl POC Creatinine 0.8 (0.6-1.3) mg/dl Est Cr Clr Drug Dosing Est GFR ( Amer) ml/min Est GFR (Non-Af Amer) ml/min BUN/Creatinine Ratio (10-20) Glucose (70-99(Fasting)) mg/dl POC Glucose (other) 110 H (70-99) mg/dl Calcium (8.5-10.1) mg/dl POC Ioniz Calcium Chelle 0.98 L (1.12-1.32) mmol/l Phosphorus (2.5-4.9) mg/dl Magnesium (1.7-2.4) mg/dl Total Bilirubin (0.2-1.0) mg/dl AST (13-39) U/L ALT (7-52) U/L Alkaline Phosphatase (34-104) U/L Total Protein (6.0-8.3) gm/dl Albumin (3.4-5.0) gm/dl Globulin (2.5-4.0) gm/dl Albumin/Globulin Ratio (0.9-2) Urine Color Urine Appearance (Clear) Urine pH (4.5-7.5) Ur Specific [place] (1.000-1.030) Urine Protein (Negative) Urine Glucose (UA) (Negative) Urine Ketones (Negative) Urine Blood (Negative) Urine Nitrite (Negative) Urine Bilirubin (Negative) Urine Urobilinogen (Negative) Ur Leukocyte Esterase (Negative) Urine Opiates Screen (Neg) Ur Methadone, Qual (Neg) Urine Barbiturates (Neg) Ur Phencyclidine (PCP) (Neg) U Amphetamin/Meth Scrn (Neg) MDMA (Ecstasy) Screen (Neg) U Benzodiazepines Scrn (Neg) Ur Cocaine Metabolite (Neg) U Marijuana (THC) Screen (Neg) Ethyl Alcohol mg/dL < 10.0 (<10.0) mg/dl SARS-CoV-2 (PCR) NEGATIVE (Negative) Influenza Type A (PCR) Negative (Neg) Influenza Type B (PCR) Negative (Neg) RSV (RT-PCR) Negative (Neg) 09/13/22 09/13/22 Range/Units 01:05 01:05 WBC (4.8-10.8) K/ul RBC (4.20-5.40) M/uL Hgb (12.0-16.0) g/dl POC Hgb (12.0-16.0) g/dl Hct (37.0-47.0) % POC Hct (37-47) % MCV (80.0-100.0) fL MCH (25.0-34.0) pg MCHC (32.0-36.0) g/dL RDW Std Deviation (36.4-46.3) fL RDW Coeff of Cee (11.5-14.5) % Plt Count (130-400) K/uL MPV (9.4-12.4) fL Immature Gran % (Auto) % Neut % (Auto) % Lymph % (Auto) % Winn % (Auto) % Eos % (Auto) % Baso % (Auto) % Neut # (Auto) (1.40-6.50) K/uL Lymph # (Auto) (1.2-3.4) K/uL Winn # (Auto) (0.11-0.59) K/uL Eos # (Auto) (0-0.50) K/uL Baso # (Auto) (0-0.2) K/uL Immature Gran # (Auto) (0.01-0.20) K/uL Absolute Nucleated RBC (0-0.12) K/uL Nucleated RBC % (auto) % PT (9.0-12.0) Seconds INR (0.9-1.1) APTT (21.0-31.0) Seconds PTT Ratio POC Sodium (135-144) mmol/L Sodium (136-145) mmol/L POC Potassium (3.3-5.0) mmol/L Potassium (3.5-5.1) mmol/L POC Chloride (101-112) mmol/L Chloride (98-107) mmol/L Carbon Dioxide (21-32) mmol/L POC Total CO2 (24-31) mmol/L Anion Gap (3-11) POC Anion Gap (16-25) mmol/L POC BUN (7-18) mg/dl BUN (6-23) mg/dl Creatinine (0.6-1.2) mg/dl POC Creatinine (0.6-1.3) mg/dl Est Cr Clr Drug Dosing Est GFR ( Amer) ml/min Est GFR (Non-Af Amer) ml/min BUN/Creatinine Ratio (10-20) Glucose (70-99(Fasting)) mg/dl POC Glucose (other) (70-99) mg/dl Calcium (8.5-10.1) mg/dl POC Ioniz Calcium Chelle (1.12-1.32) mmol/l Phosphorus (2.5-4.9) mg/dl Magnesium (1.7-2.4) mg/dl Total Bilirubin (0.2-1.0) mg/dl AST (13-39) U/L ALT (7-52) U/L Alkaline Phosphatase (34-104) U/L Total Protein (6.0-8.3) gm/dl Albumin (3.4-5.0) gm/dl Globulin (2.5-4.0) gm/dl Albumin/Globulin Ratio (0.9-2) Urine Color Yellow Urine Appearance Clear (Clear) Urine pH 8.5 H (4.5-7.5) Ur Specific [place] 1.003 (1.000-1.030) Urine Protein Negative (Negative) Urine Glucose (UA) Negative (Negative) Urine Ketones Negative (Negative) Urine Blood Negative (Negative) Urine Nitrite Negative (Negative) Urine Bilirubin Negative (Negative) Urine Urobilinogen Negative (Negative) Ur Leukocyte Esterase Negative (Negative) Urine Opiates Screen Neg (Neg) Ur Methadone, Qual Pos H (Neg) Urine Barbiturates Neg (Neg) Ur Phencyclidine (PCP) Neg (Neg) U Amphetamin/Meth Scrn Neg (Neg) MDMA (Ecstasy) Screen Neg (Neg) U Benzodiazepines Scrn Neg (Neg) Ur Cocaine Metabolite Neg (Neg) U Marijuana (THC) Screen Neg (Neg) Ethyl Alcohol mg/dL (<10.0) mg/dl SARS-CoV-2 (PCR) (Negative) Influenza Type A (PCR) (Neg) Influenza Type B (PCR) (Neg) RSV (RT-PCR) (Neg) Administered Medications Discontinued Medications Al Hydrox/Mg Hydrox/Simethicone (Aluminum/Magnesium Susp 30 Ml Udc) 30 ml PO NOW STA Stop: 09/13/22 02:05 Last Admin: 09/13/22 02:12 Dose: 30 ml Documented By: GITA Calcium Chloride (Calcium Chloride 10% 10 Ml Syr) Confirm Administered Dose 1,000 mg IV .STK-MED ONE Stop: 09/13/22 00:03 Last Admin: 09/13/22 00:16 Dose: Not Given Documented By: HEATHER Famotidine (Famotidine 20mg/5ml Iv Push) Confirm Administered Dose 20 mg IV .STK-MED ONE Stop: 09/13/22 00:49 Last Admin: 09/13/22 01:00 Dose: 20 mg Documented By: QUINN Sodium Chloride (Nss 1000ml) 1,000 mls @ 999 mls/hr IV .Q1H1M DAVID Stop: 09/13/22 00:45 Last Infusion: 09/13/22 03:21 Dose: 0 mls/hr Documented By: Infusion: 09/13/22 00:18 Dose: 999 mls/hr Documented By: Infusion: 09/13/22 00:13 Dose: 0 mls/hr Documented By: Admin: 09/13/22 00:08 Dose: 999 mls/hr Documented By: HEATHER Magnesium Sulfate/Dextrose (Magnesium Sulfate / D5w) 1 gm in 100 mls @ 200 mls/hr IV Q30M DAVID Stop: 09/13/22 01:01 Last Infusion: 09/13/22 01:30 Dose: 0 mls/hr Documented By: Admin: 09/13/22 00:48 Dose: 200 mls/hr Documented By: Infusion: 09/13/22 00:38 Dose: 200 mls/hr Documented By: Admin: 09/13/22 00:08 Dose: 200 mls/hr Documented By: HEATHER Calcium Gluconate () 1,000 mg in 60 mls @ 240 mls/hr IV NOW STA Stop: 09/13/22 00:15 Last Infusion: 09/13/22 00:30 Dose: 0 mls/hr Documented By: Admin: 09/13/22 00:08 Dose: 240 mls/hr Documented By: HEATHER Potassium Chloride (K Stewart / Wtr) 10 meq in 100 mls @ 100 mls/hr IV Q1H DAVID; Protocol Stop: 09/13/22 02:14 Last Infusion: 09/13/22 03:21 Dose: 0 mls/hr Documented By: Admin: 09/13/22 01:33 Dose: 100 mls/hr Documented By: Infusion: 09/13/22 01:32 Dose: 0 mls/hr Documented By: Admin: 09/13/22 00:17 Dose: 100 mls/hr Documented By: HEATHER Potassium Phosphate 18 mmol/ (Sodium Chloride) 506 mls @ 165 mls/hr IV ONE ONE Stop: 09/13/22 04:33 Last Admin: 09/13/22 01:34 Dose: 165 mls/hr Documented By: GITA Lorazepam (Lorazepam 2 Mg/1 Ml Vial) Confirm Administered Dose 2 mg .ROUTE .STK- MED ONE Stop: 09/13/22 00:41 Last Admin: 09/13/22 01:00 Dose: 1 mg Documented By: QUINN Magnesium Sulfate/Dextrose (Magnesium Sulfate 1gm / D5w Bag) Confirm Administered Dose 1 gm IV .STK-MED ONE Stop: 09/13/22 00:03 Last Admin: 09/13/22 00:16 Dose: Not Given Documented By: HEATHER Ondansetron HCl (Ondansetron Inj 2 Mg/Ml 2 Ml Vial) Confirm Administered Dose 4 mg .ROUTE .STEmbedStore-MED ONE Stop: 09/13/22 00:39 Last Admin: 09/13/22 01:00 Dose: 4 mg Documented By: QUINN Potassium Chloride (Potassium Chloride Crtab 20 Meq Tabcr) 40 meq PO NOW STA Stop: 09/13/22 00:10 Last Admin: 09/13/22 00:17 Dose: 40 meq Documented By: HEATHER Potassium Phosphate (Potassium Phos 3 Mmol/1 Ml Infusion) 18 mmol IV NOW STA Stop: 09/13/22 01:19 Last Admin: 09/13/22 02:13 Dose: Not Given Documented By: GITA Discharge Plan Visit Data Chief Complaint: Syncope (Near Syncope) Stated Complaint: UNCONSIOUSNESS,HEART ISSUES,PULSE ED Provider: Carlita Santos Discharge Problem: Frequent PVCs, PAC (premature atrial contraction), Muscle cramp Patient Disposition: Admitted As Inpatient Forms Stand Alone Forms: [facility] Prescriptions Prescriptions: No Action amlodipine 10 mg tablet 10 mg PO DAILY omeprazole 20 mg capsule,delayed release(DR/EC) 20 mg PO DAILY hydroxyzine HCl 25 mg tablet 25 - 50 mg PO HS PRN (Reason: Insomnia) duloxetine 30 mg capsule,delayed release(DR/EC) 30 mg PO DAILY methadone 40 mg Tablet,Soluble 100 mg PO DAILY nicotine 14 mg/24 hr patch 24 hour 14 mg transdermal DAILY albuterol sulfate 90 mcg/actuation HFA aerosol inhaler 2 puff INHALATION Q6H PRN (Reason: Cough) diphenhydramine HCl [Benadryl] 25 mg Capsule 50 mg PO HS PRN (Reason: SLEEP/ITCHING) metoprolol succinate 25 mg tablet extended release 24 hr 25 mg PO BID Rx Instructions: LAST FILLED 03/21/22 FOR 90 DAYS/180 TABS. bisacodyl 5 mg Tablet 5 mg PO HS PRN (Reason: Constipation) turmeric root extract 500 mg Capsule 500 mg PO DAILY Referrals Referrals: Joe Lockwood DO [Primary Care Provider] -
[2022-09-13] MEDS ORDERED: SODIUM CHLORIDE 0.9% 1000ML 1,000 ML IV SCH (05:09)
[2022-09-13] MEDS ORDERED: LORazepam 2 MG/1 ML VIAL IV PRN (05:09)
[2022-09-13] MEDS ORDERED: GABAPENTIN 1200MG ALCOHOL WITHDRAWAL LOAD PO STA (05:09)
[2022-09-13] MEDS ORDERED: POLYETHYLENE (MIRALAX) 17 GM PACK PO PRN (05:09)
[2022-09-13] MEDS ORDERED: hydrOXYzine HCl 25 MG TAB PO PRN (05:09)
[2022-09-13] MEDS ORDERED: ACETAMINOPHEN 325 MG TAB PO PRN (05:09)
[2022-09-13] MEDS ORDERED: ALBUTEROL HFA 8 GM INHALER INH PRN (05:09)
[2022-09-13] MEDS ORDERED: GABAPENTIN 600 MG TAB PO ONE (05:09)
[2022-09-13] MEDS ORDERED: NITROGLYCERIN SL 0.4 MG/TAB TAB SL PRN (05:09)
[2022-09-13] MEDS ORDERED: Ativan IV Alcohol Withdrawal--Active Protocol IV PRN (05:09)
[2022-09-13] MEDS ORDERED: bisacodyL 5 MG TABEC PO PRN (05:09)
--- NOTE | 2022-09-13 05:27 | History and Physical Report ---
DATE OF ADMISSION: 09/13/2022. CHIEF COMPLAINT: Syncope. HISTORY OF PRESENT ILLNESS: A 57-year-old female with past medical history significant for COPD; history of right lung nodule; hypertension; GERD; history of KARLA; osteoarthritis; history of methadone maintenance therapy the patient says since last 17 years; history of substance abuse, in remission; ongoing tobacco abuse, on nicotine patch; depression, presents with syncope. The patient says she was sitting on a chair when she suddenly lost consciousness for about a second and her friend was there and she woke her up and she came back and was confused for a short period of time, then back to normal. Because of that, she came to the hospital. She was found to have electrolyte abnormalities with a potassium of 2.7, magnesium of 1.5, phosphorus 2.2, got it replaced in the ER. She says she drinks alcohol, four bottles of Smirnoff, 8% alcohol, large bottles, daily. She smokes a few cigarettes, currently on nicotine patch. Denies any headache. She is having on and off blurred visions for the last 2 weeks. No earache, no runny nose, no sore throat. No cough. She says she is getting on and off chest pains for the last 2 months, sometimes walking makes it worse. No shortness of breath, no nausea, eating and drinking okay. No abdominal pain. Normal bowel and bladder movements. She is somewhat constipated with methadone. She moves her bowels every 3-4 days. No swelling in the legs. ALLERGIES: No known drug allergies. PAST MEDICAL HISTORY: As mentioned above. PAST SURGICAL HISTORY: Right total hip replacement. MEDICATIONS: The patient is on albuterol 2 puffs inhalation q. 6 hours p.r.n., amlodipine 10 mg p.o. daily, bisacodyl 5 mg p.o. at bedtime p.r.n., Benadryl 50 mg p.o. at bedtime p.r.n., duloxetine 30 mg p.o. daily, hydroxyzine 25-50 mg p.o. at bedtime p.r.n., methadone 100 mg p.o. daily, metoprolol succinate 25 mg p.o. b.i.d., nicotine 14 mg transdermal daily, omeprazole 20 mg p.o. daily. FAMILY HISTORY: Significant for no family history on file. SOCIAL HISTORY: . Currently smoking few cigarettes daily, trying to quit with a nicotine patch. She is drinking four big bottles of Smirnoffs daily. Used to do heroin in the past, currently on methadone. REVIEW OF SYSTEMS: As per HPI. Rest of the review of systems is negative. PHYSICAL EXAMINATION: GENERAL: The patient is of moderate built, not in acute distress. VITAL SIGNS: Temperature 36.4, pulse 63, respiratory rate 18, blood pressure 123/79, oxygen 96% on 4 liters. HEENT: Pupils equal, round and reactive to light. Oral mucosa moist. NECK: No JVD. No neck masses. CARDIOVASCULAR: S1 and S2 heard. Regular rate and rhythm. No murmur, no gallop. RESPIRATORY SYSTEM: Normal AP diameter. No accessory muscle use. No wheezing, no crackles. ABDOMEN: Soft, bowel sounds present, nontender, no distention. CENTRAL NERVOUS SYSTEM: Cranial nerves II through XII are grossly intact, nonfocal. EXTREMITIES: No edema, no erythema. LABORATORY DATA: WBC 9.09, hemoglobin 12.7, hematocrit 36.8, platelets 109. PT 11.4, INR 1.1, APTT 27.1. Sodium 137, potassium 2.7, chloride 90, CO2 of 36, BUN 9, creatinine 0.9, serum glucose 105, calcium 9.4,ionized calcium 0.98, phosphorus 2.2, magnesium 1.5, total bilirubin 0.7, AST 62, ALT 33, alkaline phosphatase 234. Urinalysis negative. Drug screen positive for methadone. Ethyl alcohol less than 10. SARS-CoV-2 PCR negative. Influenza A and B PCR negative. RSV PCR negative. IMAGING DATA: Chest x-ray, no acute findings. EKG: Accelerated junctional rhythm with frequent PVCs and fusion complex at the rate of 108. ASSESSMENT AND PLAN: This is a 57-year-old female who presents with syncope. 1. Syncope: On and off chest pains, abnormal EKG, electrolyte abnormalities, ongoing alcoholism. Will monitor in the tele floor, keep her n.p.o. Follow serial cardiac enzymes, echocardiogram. Consult cardiology in the a.m. for further recommendation. 2. Alcoholism: She states she drinks four big bottles of Smirnoff daily. Will place on gabapentin and Ativan p.r.n. protocol, banana bag, IV thiamine, IV folic acid. Monitor closely for withdrawals. 3. Hypokalemia, hypomagnesemia, hypophosphatemia: Will replace. Will follow the repeat labs. 4. History of hepatitis C: Ongoing alcoholism. Mild elevation in liver function tests. Counselling about alcohol cessation. Follow up with GI for hepatitis C 5. History of chronic obstructive pulmonary disease: Continue home inhalers, currently stable. 6. Hypertension: Continue amlodipine and metoprolol. Will monitor the blood pressure. 7. Gastroesophageal reflux disease: Continue PPI. 8. Thrombocytopenia Platelets 109. will monitor. 9. Deep venous thrombosis prophylaxis: Placed on Lovenox. Monitor the platelets. DISPOSITION: Closely monitor in the tele floor. Level 1 full code. Job ID: [id number] MTDD
[2022-09-13] MEDS ORDERED: MULTI-VITAMIN INFUSION 10 ML, THIAMINE HCL 100 MG, FOLIC ACID 1 MG in SODIUM CHLORIDE 0... IV ONE (05:30)
[2022-09-13] MEDS ORDERED: Patient's HEIGHT &/or WEIGHT Needed SCH (05:30)
[2022-09-13 06:12] LABS: Basophils # (auto) 0.02 K/uL (0-0.2); Basophils % (auto) 0.2 %; Eosinophils # (auto) 0.01 K/uL (0-0.50); Eosinophils % (auto) 0.1 %; Hemoglobin 11.9 g/dl (12.0-16.0); Immature Granulocytes # (auto) 0.06 K/uL (0.01-0.20); Immature Granulocytes % (auto) 0.7 %; Lymphocytes # (auto) 0.89 K/uL (1.2-3.4); Lymphocytes % (auto) 10.8 %; Mean Corpuscular Hemoglobin 32.9 pg (25.0-34.0); Mean Corpuscular Volume 96.7 fL (80.0-100.0); Mean Platelet Volume 10.4 fL (9.4-12.4); Monocytes # (auto) 0.53 K/uL (0.11-0.59); Monocytes % (auto) 6.4 %; Neutrophils # (auto) 6.76 K/uL (1.40-6.50); Neutrophils % (auto) 81.8 %; Nucleated RBC # (auto) 0.02 K/uL (0-0.12); Nucleated RBC % (auto) 0.2 %; Platelet Count 100 K/uL (130-400); RDW Coefficient of Variation 13.8 % (11.5-14.5); RDW Standard Deviation 49.1 fL (36.4-46.3); Red Blood Count 3.62 M/uL (4.20-5.40); White Blood Count 8.27 K/ul (4.8-10.8)
--- NOTE | 2022-09-13 06:29 | XRay Report ---
XR chest 1V portable CLINICAL HISTORY: Shortness of breath. COMPARISON STUDY: Chest radiograph and chest CT May 16, 2022. FINDINGS: Lung volumes are normal. Lungs are clear. Minimal left basilar opacity favors atelectasis. There is no pneumothorax or pleural effusion. Cardiomegaly is unchanged. Mediastinal contours are nor mal. There is no evidence for pulmonary edema. Old, healed anterior left second rib fracture. IMPRESSION: No acute cardiopulmonary findings. ACT 112: Negative or not required by law. Electronically signed by: Geoff Cote M.D. 09/13/2022 6:28 AM
[2022-09-13 06:43] LABS: Anion Gap 6 (3-11); BUN Creatinine Ratio 8.4 (10-20); Blood Urea Nitrogen 8 mg/dl (6-23); Calcium 8.6 mg/dl (8.5-10.1); Carbon Dioxide 38 mmol/L (21-32); Chloride 97 mmol/L (98-107); Est GFR (African American) 78.2 ml/min; Est GFR (Non-African American) 67.4 ml/min; Glucose 107 mg/dl (70-99(Fasting)); Potassium 3.6 mmol/L (3.5-5.1); Sodium 141 mmol/L (136-145); Troponin I High Sensitivity 15.3 pg/ml (0-14)
[2022-09-13] MEDS ORDERED: PANTOprazole 40 MG TAB PO SCH (09:00)
[2022-09-13] MEDS ORDERED: ENOXAPARIN INJ 40 MG/0.4 ML SYR SQ SCH (09:00)
[2022-09-13] MEDS: METOPROLOL SUCC 25MG EXT REL TAB PO SCH ×2 (09:48→20:35)
[2022-09-13] MEDS: amLODIPine BESYLATE 5 MG TAB PO SCH (09:48)
[2022-09-13] MEDS: DULoxetine HCL 30 MG CAP PO SCH (09:48)
[2022-09-13] MEDS: NICOTINE 14 MG/24 HR PATCH TD SCH (09:49)
--- NOTE | 2022-09-13 10:05 | Electrocardiogram Report ---
Test Reason : Blood Pressure : / mmHG Vent. Rate : 108 BPM Atrial Rate : 055 BPM P-R Int : 000 ms QRS Dur : 106 ms QT Int : 372 ms P-R-T Axes : 000 091 179 degrees QTc Int : 498 ms Poor data quality, interpretation may be adversely affected Accelerated Junctional rhythm with frequent , and consecutive Premature ventricular complexes and Fus ion complexes and non-sustained VT Rightward axis Marked ST abnormality, possible inferior subendocardial injury Abnormal ECG When compared with ECG of 16-MAY-2022 11:35, Junctional rhythm has replaced Sinus rhythm Confirmed by Fabian Wayne ([id number]) on 09/13/2022 10:05:34 AM Referred By: REFERRED SELF Confirmed By:Sawyer Wayne
[2022-09-13] MEDS: METHADONE HCL 10 MG TAB PO SCH (10:17)
--- NOTE | 2022-09-13 11:45 | Cardiology Consultation ---
Date of Consultation September 13, 2022 Assessment & Plan (1) Acute hypoxemic respiratory failure: (2) Frequent PVCs: Plan Patient is an acutely ill 57-year-old female who suffered a transient syncopal event then presented to the emergency room Significant EKG findings present with aberrant conduction frequent ventricular ectopy and accelerated junctional rhythm. Patient with hypoxia and hypokalemia Persistent hypoxia with O2 demands Echocardiogram demonstrates preserved LV systolic function, indirect evidence of pulmonary hypertension Chest x-ray with minimal increase in interstitial markings without pulmonary edema Impression and plan: 57-year-old female with acute hemodynamic decline, syncope uncertain etiology with associated hypoxia EKG demonstrated on presentation marked aberrancy possibly associated with electrolyte abnormalities. Initial findings without acute ischemia on repeat EKG and by echocardiogram. Laboratory studies pending Chest x-ray with mild vascular congestion but no pulmonary edema Prior hospitalization in April 2022 with hypoxic respiratory failure, acidosis with elevated troponin without evolution or acute ischemia We will follow along with patient as respiratory issues are better sorted Agree with chest CTA Ischemic heart disease not completely excluded History of Present Illness Reason for Consultation: Abnormal EKG, arrhythmia, hypoxia Requesting Physician: Dr. Meraz Attending Physician: Vivian Meraz MD History of Present Illness Patient is a 57-year-old female without prior history of cardiac disease per p atient though with past echocardiograms demonstrating elevated pulmonary pressures by indirect measurement Underlying issues include 1. Chronic obstructive lung disease with chronic tobacco use 2. Hypertension 3. 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 Chronic alcohol use 5. Prior hospitalization April 2022 with hypoxic respiratory failure, acidosis Patient now hospitalized with witnessed syncopal event. Noted friend observed transient loss of consciousness was able to be aroused though with mild confusion after. Presented to the emergency room where marked metabolic derangements noted as well as significant EKG findings with frequent ventricular ectopy with accelerated junctional rhythm, aberrant conduction Rhythm issues improved with potassium replaced Still requiring significant amount of oxygen supplementation Initial chest x-ray without pulmonary edema Currently denies chest pains dizziness or lightheadedness does feel breathless and tight in the chest with ambulation at times She recently began vaping and attempts to wean from tobacco smoking Notes no worsening edema weight gain orthopnea No long travel or trips No bleeding issues Allergies Allergy/AdvReac Type Severity Reaction Status Date / Time No Known Allergies Allergy Verified 09/12/22 23:56 Home Medications Medication Instructions Recorded Confirmed Type amlodipine 10 mg tablet 10 mg PO DAILY 05/16/22 09/13/22 History duloxetine 30 mg capsule,delayed 30 mg PO DAILY 05/16/22 09/13/22 History release hydroxyzine HCl 25 mg tablet 25 - 50 mg PO HS PRN Insomnia 05/16/22 09/13/22 History methadone 40 mg soluble tablet 100 mg PO DAILY 05/16/22 09/13/22 History omeprazole 20 mg capsule,delayed 20 mg PO DAILY 05/16/22 09/13/22 History release albuterol sulfate 90 mcg/actuation 2 puff inhalation Q6H PRN Cough 09/12/22 09/13/22 History aerosol inhaler nicotine 14 mg/24 hr daily 14 mg transdermal DAILY 09/12/22 09/13/22 History transdermal patch bisacodyl 5 mg tablet 5 mg PO HS PRN Constipation 09/13/22 09/13/22 History diphenhydramine HCl 25 mg capsule 50 mg PO HS PRN SLEEP/ITCHING 09/13/22 09/13/22 History (Benadryl) metoprolol succinate 25 mg 25 mg PO BID 09/13/22 09/13/22 History tablet,extended release 24 hr turmeric root extract 500 mg 500 mg PO DAILY 09/13/22 09/13/22 History capsule Patient History Medical History Acute exacerbation of chronic obstructive pulmonary disease Acute hypoxemic respiratory failure Acute respiratory failure with hypoxia KARLA (acute kidney injury) Anemia COPD (chronic obstructive pulmonary disease) Elevated lactic acid level Elevated troponin GERD (gastroesophageal reflux disease) Hepatitis C test positive HTN (hypertension) Lactic acidosis Methadone maintenance therapy patient Recurrent major depressive disorder Thrombocytopenia Tobacco abuse Surgical History Status post total hip replacement, right Family History Other Family history non-contributory Social History Smoking Status: Current every day smoker Tobacco Type: Cigarettes Cigarettes Per Day: 1 pack every 2-3 days; Second Hand Exposure: Yes; Do You Dip or Chew Tobacco: No; Tobacco Cessation Education Requested by Patient: No Hx Alcohol Use: Yes Alcohol type: other Hx Substance Use: No (denied) Preferred Language: Uzbek Communication Ability: Effective Oxygen Equipment Aide Required: No Beliefs That Will Affect Care: Spiritual Current Living Situation: Alone Feels Safe at Home: Yes Assistive Devices: Cane and Oxygen - Continuous Review of Systems Review of Systems: All systems reviewed & are unremarkable except as noted in HPI & below Physical Exam Constitutional: + obese Mild breathlessness. Answering questions appropriate Eyes: PERRL, conjunctivae normal, anicteric sclerae ENMT: external ear and nose normal, oropharynx normal Neck: trachea midline, no thyromegaly Respiratory: + audible wheezes (With forced cough) Auscultation: + crackles Cardiovascular: Rate/Rhythm: regular rate and regular rhythm Heart Sounds: no murmur Vessels: no JVD Extremities: + edema (Trace) Occasional ventricular ectopic beats audible Musculoskeletal: no cyanosis or clubbing, extremities motor strength 5/5 Skin: no rashes, warm and dry Neurologic: PERRL, EOMI, accommodation nl, no face palsy, no dysarthria Results & Data ([facility]) Vital Signs (Past 12 Hours) Vital Signs Temp Pulse Pulse Resp BP BP Pulse Ox 09/13/22 11:37 89 L 09/13/22 09:35 58 L 16 125/82 93 09/13/22 10:45 53 L 09/13/22 09:30 09/13/22 09:30 36.4 C L 09/13/22 08:03 52 L 09/13/22 07:40 09/13/22 07:40 36.5 C 56 L 24 132/78 92 09/13/22 07:43 88 L 09/13/22 07:29 09/13/22 07:29 36.5 C 56 L 24 132/78 92 09/13/22 07:29 09/13/22 06:45 61 21 93 09/13/22 06:30 55 L 18 117/68 91 09/13/22 06:15 54 L 19 107/74 90 09/13/22 06:00 58 L 17 137/87 87 L 09/13/22 05:45 63 17 91 09/13/22 05:30 59 L 19 140/82 90 09/13/22 05:16 60 18 134/69 93 09/13/22 05:15 60 17 93 09/13/22 05:05 54 L 16 129/92 93 09/13/22 05:00 59 L 15 143/76 H 92 09/13/22 04:55 57 L 17 111/79 92 09/13/22 04:50 57 L 17 119/64 92 09/13/22 04:45 54 L 15 122/77 92 09/13/22 04:40 58 L 20 117/78 93 09/13/22 04:35 57 L 18 125/73 93 09/13/22 04:30 57 L 20 129/77 93 09/13/22 04:26 61 20 156/88 H 90 09/13/22 04:20 59 L 16 128/84 93 09/13/22 04:15 52 L 16 108/71 93 09/13/22 04:10 55 L 16 108/74 93 09/13/22 04:05 56 L 17 119/66 92 09/13/22 04:00 57 L 18 123/71 94 09/13/22 03:55 58 L 18 116/77 94 09/13/22 03:50 58 L 20 122/66 95 09/13/22 03:45 60 17 120/76 95 09/13/22 03:40 66 22 125/80 93 09/13/22 03:35 62 20 136/79 90 09/13/22 03:30 62 18 115/71 94 09/13/22 03:25 57 L 15 105/72 95 09/13/22 03:20 60 18 117/65 95 09/13/22 04:01 57 L 09/13/22 03:15 58 L 19 110/67 96 09/13/22 03:10 59 L 17 114/66 95 09/13/22 03:05 64 17 109/78 94 09/13/22 03:01 66 22 121/81 94 09/13/22 03:00 66 19 95 09/13/22 02:56 65 19 109/81 93 09/13/22 02:50 65 21 131/83 94 09/13/22 02:46 65 21 141/77 H 96 09/13/22 02:45 63 19 96 09/13/22 02:41 62 20 132/75 95 09/13/22 02:31 63 22 138/108 H 96 09/13/22 02:30 63 18 96 09/13/22 02:25 64 17 93 09/13/22 02:21 65 22 123/79 95 09/13/22 02:20 66 19 96 09/13/22 02:15 67 18 91 09/13/22 02:11 66 19 128/83 92 09/13/22 02:10 64 19 94 09/13/22 02:06 65 18 153/103 H 91 09/13/22 02:05 65 23 93 09/13/22 02:00 66 26 H 96 09/13/22 01:55 68 19 159/88 H 91 09/13/22 01:50 65 23 90 09/13/22 01:46 66 27 H 169/102 H 92 09/13/22 01:45 64 23 91 09/13/22 01:40 64 21 90 09/13/22 01:36 65 20 127/71 92 09/13/22 01:35 79 17 94 09/13/22 01:30 64 19 94 09/13/22 01:26 69 20 107/70 93 09/13/22 01:25 65 17 92 09/13/22 01:21 64 21 143/95 H 93 09/13/22 01:20 64 29 H 94 09/13/22 01:16 65 21 139/84 92 09/13/22 01:15 65 25 H 93 09/13/22 01:11 65 23 142/82 H 94 09/13/22 01:10 73 29 H 90 09/13/22 01:05 66 22 93 09/13/22 01:00 82 24 147/96 H 91 09/13/22 01:15 93 09/13/22 00:55 61 27 H 92 09/13/22 00:50 95 H 29 H 92 09/13/22 00:45 86 15 94 09/13/22 00:40 96 H 25 H 93 09/13/22 00:35 94 H 26 H 93 09/13/22 00:30 85 30 H 92 09/13/22 00:25 91 H 24 92 09/13/22 00:20 83 22 156/109 H 93 09/13/22 00:21 87 Pulse Ox O2 Del Method O2 Del Method O2 Flow Rate O2 Flow Rate 09/13/22 11:37 Oxymask 8 09/13/22 09:35 Oxymask 11 09/13/22 10:45 09/13/22 09:30 Oxymask 11 09/13/22 09:30 09/13/22 08:03 09/13/22 07:40 Oxymask 10 09/13/22 07:40 Oxymask 10 09/13/22 07:43 Oxymask 10 09/13/22 07:29 Oxymask 10 09/13/22 07:29 Oxymask 10 09/13/22 07:29 92 Oxymask 10 09/13/22 06:45 Oxymask 10 09/13/22 06:30 Oxymask 10 09/13/22 06:15 Nasal Cannula 6 09/13/22 06:00 Nasal Cannula 4 09/13/22 05:45 Nasal Cannula 4 09/13/22 05:30 Nasal Cannula 4 09/13/22 05:16 Nasal Cannula 4 09/13/22 05:15 Nasal Cannula 4 09/13/22 05:05 Nasal Cannula 4 09/13/22 05:00 Nasal Cannula 4 09/13/22 04:55 Nasal Cannula 4 09/13/22 04:50 Nasal Cannula 4 09/13/22 04:45 Nasal Cannula 4 09/13/22 04:40 Nasal Cannula 4 09/13/22 04:35 Nasal Cannula 4 09/13/22 04:30 Nasal Cannula 4 09/13/22 04:26 Nasal Cannula 4 09/13/22 04:20 Nasal Cannula 4 09/13/22 04:15 Nasal Cannula 4 09/13/22 04:10 Nasal Cannula 4 09/13/22 04:05 Nasal Cannula 4 09/13/22 04:00 Nasal Cannula 4 09/13/22 03:55 Nasal Cannula 4 09/13/22 03:50 Nasal Cannula 4 09/13/22 03:45 Nasal Cannula 4 09/13/22 03:40 Nasal Cannula 4 09/13/22 03:35 Nasal Cannula 4 09/13/22 03:30 Nasal Cannula 4 09/13/22 03:25 Nasal Cannula 4 09/13/22 03:20 Nasal Cannula 4 09/13/22 04:01 09/13/22 03:15 Nasal Cannula 4 09/13/22 03:10 Nasal Cannula 4 09/13/22 03:05 Nasal Cannula 4 09/13/22 03:01 Nasal Cannula 4 09/13/22 03:00 Nasal Cannula 4 09/13/22 02:56 Nasal Cannula 4 09/13/22 02:50 Nasal Cannula 4 09/13/22 02:46 Nasal Cannula 4 09/13/22 02:45 Nasal Cannula 4 09/13/22 02:41 Nasal Cannula 4 09/13/22 02:31 Nasal Cannula 4 09/13/22 02:30 Nasal Cannula 4 09/13/22 02:25 Nasal Cannula 4 09/13/22 02:21 Nasal Cannula 4 09/13/22 02:20 Nasal Cannula 4 09/13/22 02:15 Nasal Cannula 4 09/13/22 02:11 Nasal Cannula 4 09/13/22 02:10 Nasal Cannula 4 09/13/22 02:06 Nasal Cannula 4 09/13/22 02:05 Nasal Cannula 4 09/13/22 02:00 Nasal Cannula 4 09/13/22 01:55 Nasal Cannula 4 09/13/22 01:50 Nasal Cannula 4 09/13/22 01:46 Nasal Cannula 4 09/13/22 01:45 Nasal Cannula 4 09/13/22 01:40 Nasal Cannula 4 09/13/22 01:36 Nasal Cannula 4 09/13/22 01:35 Nasal Cannula 4 09/13/22 01:30 Nasal Cannula 4 09/13/22 01:26 Nasal Cannula 4 09/13/22 01:25 Nasal Cannula 4 09/13/22 01:21 Nasal Cannula 4 09/13/22 01:20 Nasal Cannula 4 09/13/22 01:16 Nasal Cannula 4 09/13/22 01:15 Nasal Cannula 4 09/13/22 01:11 Nasal Cannula 4 09/13/22 01:10 Nasal Cannula 4 09/13/22 01:05 Nasal Cannula 4 09/13/22 01:00 Nasal Cannula 4 09/13/22 01:15 Nasal Cannula 09/13/22 00:55 09/13/22 00:50 09/13/22 00:45 09/13/22 00:40 09/13/22 00:35 09/13/22 00:30 Nasal Cannula 4 09/13/22 00:25 Nasal Cannula 4 09/13/22 00:20 Nasal Cannula 2 09/13/22 00:21 Laboratory Results Laboratory Results - last 24 hr 09/12/22 09/12/22 09/12/22 23:55 23:55 23:55 WBC 9.02 RBC 3.89 L Hgb 12.7 POC Hgb Hct 36.8 L POC Hct MCV 94.6 MCH 32.6 MCHC 34.5 RDW Std Deviation 47.6 H RDW Coeff of Cee 13.8 Plt Count 109 L MPV 10.2 Immature Gran % (Auto) 0.7 Neut % (Auto) 81.6 Lymph % (Auto) 10.3 [place] % (Auto) 6.9 Eos % (Auto) 0.2 Baso % (Auto) 0.3 Neut # (Auto) 7.36 H Lymph # (Auto) 0.93 L [place] # (Auto) 0.62 H Eos # (Auto) 0.02 Baso # (Auto) 0.03 Immature Gran # (Auto) 0.06 Absolute Nucleated RBC 0.02 Nucleated RBC % (auto) 0.2 PT 11.4 INR 1.1 APTT 27.1 PTT Ratio 1.0 Sample Site POC pH POC pCO2 POC pO2 POC HCO3 POC Base Excess ABG pH (Temp Correct) ABG pCO2 (Temp Corrct POC ABG pO2 at Pt Temp POC ABG O2 Sat Shawn Test O2 Delivery Device POC Sodium Sodium 137 POC Potassium Potassium 2.7 L POC Chloride Chloride 90 L Carbon Dioxide 36 H POC Total CO2 Anion Gap 11 POC Anion Gap POC BUN BUN 9 Creatinine 0.97 POC Creatinine Est Cr Clr Drug Dosing Not Reportable Est GFR ( Amer) 76.2 Est GFR (Non-Af Amer) 65.8 BUN/Creatinine Ratio 9.3 L Glucose 105 H POC Glucose (other) Lactate Calcium 9.4 POC Ioniz Calcium Chelle Phosphorus 2.2 L Magnesium 1.5 L Total Bilirubin 0.7 AST 62 H ALT 33 Alkaline Phosphatase 234 H Troponin I High Sens B-Natriuretic Peptide Total Protein 7.2 Albumin 4.0 Globulin 3.2 Albumin/Globulin Ratio 1.3 Procalcitonin Urine Color Urine Appearance Urine pH Ur Specific [place] Urine Protein Urine Glucose (UA) Urine Ketones Urine Blood Urine Nitrite Urine Bilirubin Urine Urobilinogen Ur Leukocyte Esterase Urine Opiates Screen Ur Methadone, Qual U Methadone Metabolites Ur Methadone Confirm Urine Barbiturates Ur Phencyclidine (PCP) U Amphetamin/Meth Scrn MDMA (Ecstasy) Screen U Benzodiazepines Scrn Ur Cocaine Metabolite U Marijuana (THC) Screen Drug Screen Comment Ethyl Alcohol mg/dL Adenovirus (PCR) B. pertussis DNA (PCR) B.parapertussis DNA PCR C. pneumoniae DNA (PCR) Coronavirus OC43 (PCR) Coronavirus HKU1 (PCR) Coronavirus 229E (PCR) SARS-CoV-2 (PCR) Coronavirus NL63 (PCR) Human Metapneumovir PCR Influenza Type A (PCR) Influenza Type B (PCR) M. pneumoniae (PCR) Parainfluenza 1 (PCR) Parainfluenza 2 (PCR) Parainfluenza 3 (PCR) Parainfluenza 4 (PCR) RSV (RT-PCR) RSV (PCR) Entero/Rhino (PCR) 09/12/22 09/13/22 09/13/22 23:59 00:07 00:15 WBC RBC Hgb POC Hgb 13.6 Hct POC Hct 40 MCV MCH MCHC RDW Std Deviation RDW Coeff of Cee Plt Count MPV Immature Gran % (Auto) Neut % (Auto) Lymph % (Auto) [place] % (Auto) Eos % (Auto) Baso % (Auto) Neut # (Auto) Lymph # (Auto) [place] # (Auto) Eos # (Auto) Baso # (Auto) Immature Gran # (Auto) Absolute Nucleated RBC Nucleated RBC % (auto) PT INR APTT PTT Ratio Sample Site POC pH POC pCO2 POC pO2 POC HCO3 POC Base Excess ABG pH (Temp Correct) ABG pCO2 (Temp Corrct POC ABG pO2 at Pt Temp POC ABG O2 Sat Shawn Test O2 Delivery Device POC Sodium 137 Sodium POC Potassium 2.5 L* Potassium POC Chloride 88 L Chloride Carbon Dioxide POC Total CO2 37 H Anion Gap POC Anion Gap 15.0 L POC BUN 7 BUN Creatinine POC Creatinine 0.8 Est Cr Clr Drug Dosing Est GFR ( Amer) Est GFR (Non-Af Amer) BUN/Creatinine Ratio Glucose POC Glucose (other) 110 H Lactate Calcium POC Ioniz Calcium [place] 0.98 L Phosphorus Magnesium Total Bilirubin AST ALT Alkaline Phosphatase Troponin I High Sens B-Natriuretic Peptide Total Protein Albumin Globulin Albumin/Globulin Ratio Procalcitonin Urine Color Urine Appearance Urine pH Ur Specific [place] Urine Protein Urine Glucose (UA) Urine Ketones Urine Blood Urine Nitrite Urine Bilirubin Urine Urobilinogen Ur Leukocyte Esterase Urine Opiates Screen Ur Methadone, Qual U Methadone Metabolites Ur Methadone Confirm Urine Barbiturates Ur Phencyclidine (PCP) U Amphetamin/Meth Scrn MDMA (Ecstasy) Screen U Benzodiazepines Scrn Ur Cocaine Metabolite U Marijuana (THC) Screen Drug Screen Comment Ethyl Alcohol mg/dL < 10.0 Adenovirus (PCR) B. pertussis DNA (PCR) B.parapertussis DNA PCR C. pneumoniae DNA (PCR) Coronavirus OC43 (PCR) Coronavirus HKU1 (PCR) Coronavirus 229E (PCR) SARS-CoV-2 (PCR) NEGATIVE Coronavirus NL63 (PCR) Human Metapneumovir PCR Influenza Type A (PCR) Negative Influenza Type B (PCR) Negative M. pneumoniae (PCR) Parainfluenza 1 (PCR) Parainfluenza 2 (PCR) Parainfluenza 3 (PCR) Parainfluenza 4 (PCR) RSV (RT-PCR) Negative RSV (PCR) Entero/Rhino (PCR) 09/13/22 09/13/22 09/13/22 01:05 01:05 01:05 WBC RBC Hgb POC Hgb Hct POC Hct MCV MCH MCHC RDW Std Deviation RDW Coeff of Cee Plt Count MPV Immature Gran % (Auto) Neut % (Auto) Lymph % (Auto) [place] % (Auto) Eos % (Auto) Baso % (Auto) Neut # (Auto) Lymph # (Auto) [place] # (Auto) Eos # (Auto) Baso # (Auto) Immature Gran # (Auto) Absolute Nucleated RBC Nucleated RBC % (auto) PT INR APTT PTT Ratio Sample Site POC pH POC pCO2 POC pO2 POC HCO3 POC Base Excess ABG pH (Temp Correct) ABG pCO2 (Temp Corrct POC ABG pO2 at Pt Temp POC ABG O2 Sat Shawn Test O2 Delivery Device POC Sodium Sodium POC Potassium Potassium POC Chloride Chloride Carbon Dioxide POC Total CO2 Anion Gap POC Anion Gap POC BUN BUN Creatinine POC Creatinine Est Cr Clr Drug Dosing Est GFR ( Amer) Est GFR (Non-Af Amer) BUN/Creatinine Ratio Glucose POC Glucose (other) Lactate Calcium POC Ioniz Calcium [place] Phosphorus Magnesium Total Bilirubin AST ALT Alkaline Phosphatase Troponin I High Sens B-Natriuretic Peptide Total Protein Albumin Globulin Albumin/Globulin Ratio Procalcitonin Urine Color Yellow Urine Appearance Clear Urine pH 8.5 H Ur Specific [place] 1.003 Urine Protein Negative Urine Glucose (UA) Negative Urine Ketones Negative Urine Blood Negative Urine Nitrite Negative Urine Bilirubin Negative Urine Urobilinogen Negative Ur Leukocyte Esterase Negative Urine Opiates Screen Neg Ur Methadone, Qual Pos H U Methadone Metabolites Pending Ur Methadone Confirm Pending Urine Barbiturates Neg Ur Phencyclidine (PCP) Neg U Amphetamin/Meth Scrn Neg MDMA (Ecstasy) Screen Neg U Benzodiazepines Scrn Neg Ur Cocaine Metabolite Neg U Marijuana (THC) Screen Neg Drug Screen Comment Pending Ethyl Alcohol mg/dL Adenovirus (PCR) B. pertussis DNA (PCR) B.parapertussis DNA PCR C. pneumoniae DNA (PCR) Coronavirus OC43 (PCR) Coronavirus HKU1 (PCR) Coronavirus 229E (PCR) SARS-CoV-2 (PCR) Coronavirus NL63 (PCR) Human Metapneumovir PCR Influenza Type A (PCR) Influenza Type B (PCR) M. pneumoniae (PCR) Parainfluenza 1 (PCR) Parainfluenza 2 (PCR) Parainfluenza 3 (PCR) Parainfluenza 4 (PCR) RSV (RT-PCR) RSV (PCR) Entero/Rhino (PCR) 09/13/22 09/13/22 09/13/22 05:27 05:27 11:52 WBC 8.27 RBC 3.62 L Hgb 11.9 L POC Hgb Hct 35.0 L POC Hct MCV 96.7 MCH 32.9 MCHC 34.0 RDW Std Deviation 49.1 H RDW Coeff of Cee 13.8 Plt Count 100 L MPV 10.4 Immature Gran % (Auto) 0.7 Neut % (Auto) 81.8 Lymph % (Auto) 10.8 [place] % (Auto) 6.4 Eos % (Auto) 0.1 Baso % (Auto) 0.2 Neut # (Auto) 6.76 H Lymph # (Auto) 0.89 L [place] # (Auto) 0.53 Eos # (Auto) 0.01 Baso # (Auto) 0.02 Immature Gran # (Auto) 0.06 Absolute Nucleated RBC 0.02 Nucleated RBC % (auto) 0.2 PT INR APTT PTT Ratio Sample Site POC pH POC pCO2 POC pO2 POC HCO3 POC Base Excess ABG pH (Temp Correct) ABG pCO2 (Temp Corrct POC ABG pO2 at Pt Temp POC ABG O2 Sat Shawn Test O2 Delivery Device POC Sodium Sodium 141 POC Potassium Potassium 3.6 D POC Chloride Chloride 97 L Carbon Dioxide 38 H POC Total CO2 Anion Gap 6 POC Anion Gap POC BUN BUN 8 Creatinine 0.95 POC Creatinine Est Cr Clr Drug Dosing Not Reportable Est GFR ( Amer) 78.2 Est GFR (Non-Af Amer) 67.4 BUN/Creatinine Ratio 8.4 L Glucose 107 H POC Glucose (other) Lactate Calcium 8.6 POC Ioniz Calcium [place] Phosphorus Magnesium 2.0 Total Bilirubin AST ALT Alkaline Phosphatase Troponin I High Sens 15.3 H 13.3 B-Natriuretic Peptide Total Protein Albumin Globulin Albumin/Globulin Ratio Procalcitonin Urine Color Urine Appearance Urine pH Ur Specific [place] Urine Protein Urine Glucose (UA) Urine Ketones Urine Blood Urine Nitrite Urine Bilirubin Urine Urobilinogen Ur Leukocyte Esterase Urine Opiates Screen Ur Methadone, Qual U Methadone Metabolites Ur Methadone Confirm Urine Barbiturates Ur Phencyclidine (PCP) U Amphetamin/Meth Scrn MDMA (Ecstasy) Screen U Benzodiazepines Scrn Ur Cocaine Metabolite U Marijuana (THC) Screen Drug Screen Comment Ethyl Alcohol mg/dL Adenovirus (PCR) B. pertussis DNA (PCR) B.parapertussis DNA PCR C. pneumoniae DNA (PCR) Coronavirus OC43 (PCR) Coronavirus HKU1 (PCR) Coronavirus 229E (PCR) SARS-CoV-2 (PCR) Coronavirus NL63 (PCR) Human Metapneumovir PCR Influenza Type A (PCR) Influenza Type B (PCR) M. pneumoniae (PCR) Parainfluenza 1 (PCR) Parainfluenza 2 (PCR) Parainfluenza 3 (PCR) Parainfluenza 4 (PCR) RSV (RT-PCR) RSV (PCR) Entero/Rhino (PCR) 09/13/22 09/13/22 09/13/22 11:52 11:52 11:52 WBC RBC Hgb POC Hgb Hct POC Hct MCV MCH MCHC RDW Std Deviation RDW Coeff of Cee Plt Count MPV Immature Gran % (Auto) Neut % (Auto) Lymph % (Auto) [place] % (Auto) Eos % (Auto) Baso % (Auto) Neut # (Auto) Lymph # (Auto) [place] # (Auto) Eos # (Auto) Baso # (Auto) Immature Gran # (Auto) Absolute Nucleated RBC Nucleated RBC % (auto) PT INR APTT PTT Ratio Sample Site POC pH POC pCO2 POC pO2 POC HCO3 POC Base Excess ABG pH (Temp Correct) ABG pCO2 (Temp Corrct POC ABG pO2 at Pt Temp POC ABG O2 Sat Shawn Test O2 Delivery Device POC Sodium Sodium POC Potassium Potassium POC Chloride Chloride Carbon Dioxide POC Total CO2 Anion Gap POC Anion Gap POC BUN BUN Creatinine POC Creatinine Est Cr Clr Drug Dosing Est GFR ( Amer) Est GFR (Non-Af Amer) BUN/Creatinine Ratio Glucose POC Glucose (other) Lactate 1.1 Calcium POC Ioniz Calcium [place] Phosphorus Magnesium Total Bilirubin AST ALT Alkaline Phosphatase Troponin I High Sens B-Natriuretic Peptide 1200 H Total Protein Albumin Globulin Albumin/Globulin Ratio Procalcitonin 0.07 Urine Color Urine Appearance Urine pH Ur Specific [place] Urine Protein Urine Glucose (UA) Urine Ketones Urine Blood Urine Nitrite Urine Bilirubin Urine Urobilinogen Ur Leukocyte Esterase Urine Opiates Screen Ur Methadone, Qual U Methadone Metabolites Ur Methadone Confirm Urine Barbiturates Ur Phencyclidine (PCP) U Amphetamin/Meth Scrn MDMA (Ecstasy) Screen U Benzodiazepines Scrn Ur Cocaine Metabolite U Marijuana (THC) Screen Drug Screen Comment Ethyl Alcohol mg/dL Adenovirus (PCR) B. pertussis DNA (PCR) B.parapertussis DNA PCR C. pneumoniae DNA (PCR) Coronavirus OC43 (PCR) Coronavirus HKU1 (PCR) Coronavirus 229E (PCR) SARS-CoV-2 (PCR) Coronavirus NL63 (PCR) Human Metapneumovir PCR Influenza Type A (PCR) Influenza Type B (PCR) M. pneumoniae (PCR) Parainfluenza 1 (PCR) Parainfluenza 2 (PCR) Parainfluenza 3 (PCR) Parainfluenza 4 (PCR) RSV (RT-PCR) RSV (PCR) Entero/Rhino (PCR) 09/13/22 09/13/22 11:55 12:21 WBC RBC Hgb POC Hgb 11.9 L Hct POC Hct 35 L MCV MCH MCHC RDW Std Deviation RDW Coeff of Cee Plt Count MPV Immature Gran % (Auto) Neut % (Auto) Lymph % (Auto) [place] % (Auto) Eos % (Auto) Baso % (Auto) Neut # (Auto) Lymph # (Auto) [place] # (Auto) Eos # (Auto) Baso # (Auto) Immature Gran # (Auto) Absolute Nucleated RBC Nucleated RBC % (auto) PT INR APTT PTT Ratio Sample Site R Radial POC pH 7.38 POC pCO2 63 H POC pO2 64 L POC HCO3 38 H POC Base Excess 12.0 H ABG pH (Temp Correct) 7.391 ABG pCO2 (Temp Corrct 61 H POC ABG pO2 at Pt Temp 61 POC ABG O2 Sat 91.0 Shawn Test Pass O2 Delivery Device SimpleMask POC Sodium 140 Sodium POC Potassium 3.2 L Potassium POC Chloride Chloride Carbon Dioxide POC Total CO2 39 H Anion Gap POC Anion Gap POC BUN BUN Creatinine POC Creatinine Est Cr Clr Drug Dosing Est GFR ( Amer) Est GFR (Non-Af Amer) BUN/Creatinine Ratio Glucose POC Glucose (other) Lactate Calcium POC Ioniz Calcium [place] Phosphorus Magnesium Total Bilirubin AST ALT Alkaline Phosphatase Troponin I High Sens B-Natriuretic Peptide Total Protein Albumin Globulin Albumin/Globulin Ratio Procalcitonin Urine Color Urine Appearance Urine pH Ur Specific [place] Urine Protein Urine Glucose (UA) Urine Ketones Urine Blood Urine Nitrite Urine Bilirubin Urine Urobilinogen Ur Leukocyte Esterase Urine Opiates Screen Ur Methadone, Qual U Methadone Metabolites Ur Methadone Confirm Urine Barbiturates Ur Phencyclidine (PCP) U Amphetamin/Meth Scrn MDMA (Ecstasy) Screen U Benzodiazepines Scrn Ur Cocaine Metabolite U Marijuana (THC) Screen Drug Screen Comment Ethyl Alcohol mg/dL Adenovirus (PCR) Pending B. pertussis DNA (PCR) Pending B.parapertussis DNA PCR Pending C. pneumoniae DNA (PCR) Pending Coronavirus OC43 (PCR) Pending Coronavirus HKU1 (PCR) Pending Coronavirus 229E (PCR) Pending SARS-CoV-2 (PCR) Pending Coronavirus NL63 (PCR) Pending Human Metapneumovir PCR Pending Influenza Type A (PCR) Influenza Type B (PCR) Pending M. pneumoniae (PCR) Pending Parainfluenza 1 (PCR) Pending Parainfluenza 2 (PCR) Pending Parainfluenza 3 (PCR) Pending Parainfluenza 4 (PCR) Pending RSV (RT-PCR) RSV (PCR) Pending Entero/Rhino (PCR) Pending
[2022-09-13] MEDS: POLYETHYLENE (MIRALAX) 17 GM PACK PO SCH (12:08)
[2022-09-13 12:35] LABS: iSTAT Allen Test Pass; iSTAT Art Bld Gas pCO2 Correct 61 mmHg (35-46); iSTAT Art Bld Gas pH Corrected 7.391 (7.35-7.45); iSTAT Arterial Blood Gas HCO3 38 meg/L (19-24); iSTAT Arterial Blood Gas pCO2 63 mmHg (35-46); iSTAT Arterial Blood Gas pH 7.38 (7.35-7.45); iSTAT Arterial Blood Gas pO2 64 mmHg (80-95); iSTAT Arterial Blood Gas pO2 C 61; iSTAT Carbon Dioxide 39 mmol/L (24-31); iSTAT Hematocrit 35 % (37-47); iSTAT Hemoglobin 11.9 g/dl (12.0-16.0); iSTAT Potassium 3.2 mmol/L (3.3-5.0); iSTAT Site R Radial; iSTAT Sodium 140 mmol/L (135-144)
[2022-09-13] MEDS: GABAPENTIN 600 MG TAB PO SCH ×2 (12:52→17:56)
--- NOTE | 2022-09-13 13:08 | Pulmonary Consultation ---
Date of Consultation September 13, 2022 Assessment & Plan (1) Hypercapnic respiratory failure: (2) Acute hypoxemic respiratory failure: (3) Pulmonary hypertension: (4) COPD (chronic obstructive pulmonary disease): Plan Impression: 57-year-old female presenting to the hospital with syncopal episode found to have elevated pulmonary arterial pressures on echocardiogram and hypoxemic respiratory failure. Her blood gas demonstrates chronic hypercarbic respiratory failure of unclear etiology. Recommendations: 1. Hypoxemic respiratory failure: Suspect multifactorial etiologies. Her elevated CO2 is contributing. She may also have shunt physiology and an echocardiogram with bubble study has been ordered to evaluate for intracardiac or intrapulmonary shunts. She is at risk for hepatopulmonary syndrome given her chronic alcohol abuse. She also may have some degree of underlying obstructive lung disease although PFTs are not available. Continue oxygen titrated to keep saturations at or around 85-90% given her hypercarbia. 2. Hypercarbic respiratory failure: Unclear etiology. May have a component of overlap syndrome/sleep disordered breathing. Obesity hypoventilation would also be in the differential. She does not appear to manifest any neuromuscular weakness. As she is well compensated, do not think we need to institute noninvasive positive pressure ventilation currently. Outpatient polysomnography is recommended. 3. Pulmonary hypertension: The patient could have several potential contributing processes. With prior history of substance abuse, Group 1 pulmonary hypertension is possible. Given her alcohol use, portal pulmonary hypertension would be in the differential if she has underlying cirrhosis. Her last echocardiogram demonstrated diastolic dysfunction so there may be a component of group 2 pulmonary hypertension. With COPD and hypercarbia, group 3 pulmonary hypertension would also be possible. She is undergoing evaluation for pulmonary embolism with a CT angiogram. She may require a VQ scan in the outpatient setting for evaluation of potential contributions from type IV. Ultimately, the patient will require referral to a tertiary pulmonary hypertension center of excellence for consideration of right and left heart catheterization. They will need to assess her left ventricular end-diastolic pressure as well as evaluate PA pressures and response to vasodilators. Would not institute pulmonary vasodilator medications at this point in time without that additional data. Diuretics are recommended to optimize volume status. Hold IV fluids and actually will pursue trials of diuresis. Recommend HIV testing 4. With the patient's extensive history of alcohol abuse, she may have a component of cirrhosis although that was not evident on the CT scan performed back in April. Her synthetic function is preserved. May consider additional GI evaluation and did make recommendation for abstinence of alcohol. 5. Smoking cessation recommended to the patient. Outpatient pulmonary function test recommended. We will place the patient on Anoro and DuoNebs as needed. Patient reports a history of vaping. We will await the CT angiogram to better assess the pulmonary parenchyma. If she has evidence of vaping induced lung injury, supportive care is recommended. 6. The patient should have outpatient overnight attended polysomnography performed. She is not appropriate for home sleep testing. Above recommendations and plan were discussed with the patient as well as with the bedside nurse. Questions were answered to the best my ability. She expressed understanding and is in agreement with plan as outlined History of Present Illness Attending Physician: Vivian Meraz MD History of Present Illness Asked by hospitalist to assist in evaluation and management of hypoxemia in this patient. History is obtained from discussion with the patient and reviewed electronic medical record. The patient is a 57-year-old female who currently smokes 5 to 6 cigarettes a day but has an over [id number] history is admitted to the hospital after syncopal event. Patient had an abnormal EKG which led to an echocardiogram. She was found to have pulmonary hypertension and was found to be hypoxemic which prompted pulmonary consultation. Patient reports that about 2 weeks ago she started using an e-cigarette. She is on oxygen chronically at 2 L/min at home but after that noticed that her oxygen requirement increased. She has a known history of obstructive lung disease and states that she has had PFTs performed through the [employer] system although those results were not available to review and have not been entered into her medical record. She has an albuterol inhaler that she uses at home. She is unclear if she is ever been offered other inhalers. She does report some lower extremity edema. The patient does have a history of substance abuse. She used cocaine and heroin about 15 years ago. More recently, about 6 months ago the patient was using black market Xanax. This resulted in altered mental status resulting in hospitalization back in April. She has an extensive alcohol history and continues to drink alcohol on a daily basis. She does not report snoring or witnessed apnea but has never had polysomnography performed. She does endorse daytime sleepiness. She does not report a family history of structural lung disease. She has never been assessed for HIV. No prior history of DVT or PE. Allergies Allergy/AdvReac Type Severity Reaction Status Date / Time No Known Allergies Allergy Verified 09/12/22 23:56 Home Medications Medication Instructions Recorded Confirmed Type amlodipine 10 mg tablet 10 mg PO DAILY 05/16/22 09/13/22 History duloxetine 30 mg capsule,delayed 30 mg PO DAILY 05/16/22 09/13/22 History release hydroxyzine HCl 25 mg tablet 25 - 50 mg PO HS PRN Insomnia 05/16/22 09/13/22 History methadone 40 mg soluble tablet 100 mg PO DAILY 05/16/22 09/13/22 History omeprazole 20 mg capsule,delayed 20 mg PO DAILY 05/16/22 09/13/22 History release albuterol sulfate 90 mcg/actuation 2 puff inhalation Q6H PRN Cough 09/12/22 09/13/22 History aerosol inhaler nicotine 14 mg/24 hr daily 14 mg transdermal DAILY 09/12/22 09/13/22 History transdermal patch bisacodyl 5 mg tablet 5 mg PO HS PRN Constipation 09/13/22 09/13/22 History diphenhydramine HCl 25 mg capsule 50 mg PO HS PRN SLEEP/ITCHING 09/13/22 09/13/22 History (Benadryl) metoprolol succinate 25 mg 25 mg PO BID 09/13/22 09/13/22 History tablet,extended release 24 hr turmeric root extract 500 mg 500 mg PO DAILY 09/13/22 09/13/22 History capsule Patient History Medical History (Updated 09/13/22 @ 13:01 by Ulisses Carrasquillo MD) Acute exacerbation of chronic obstructive pulmonary disease Acute hypoxemic respiratory failure Acute respiratory failure with hypoxia KARLA (acute kidney injury) Anemia COPD (chronic obstructive pulmonary disease) Elevated lactic acid level Elevated troponin GERD (gastroesophageal reflux disease) Hepatitis C test positive HTN (hypertension) Lactic acidosis Methadone maintenance therapy patient Recurrent major depressive disorder Thrombocytopenia Tobacco abuse Surgical History Status post total hip replacement, right Family History Other Family history non-contributory Social History Smoking Status: Current every day smoker Tobacco Type: Cigarettes Cigarettes Per Day: 1 pack every 2-3 days; Second Hand Exposure: Yes; Do You Dip or Chew Tobacco: No; Tobacco Cessation Education Requested by Patient: No Hx Alcohol Use: Yes Alcohol type: other Hx Substance Use: No (denied) Preferred Language: [place]ambian Communication Ability: Effective Pick [employer] Required: No Beliefs That Will Affect Care: Spiritual Current Living Situation: Alone Feels Safe at Home: Yes Assistive Devices: Cane and Oxygen - Continuous Review of Systems Review of Systems: Complete review of systems completed with the patient and negative except as noted in HPI. Physical Exam Constitutional: WD/WN, vitals as above Neck: trachea midline, no thyromegaly Respiratory: normal respiratory effort, lungs clear to auscultation Cardiovascular: RRR, no murmur, no edema Gastrointestinal (Abdomen): normal bowel sounds, soft, nontender, no hepatosplenomegaly Musculoskeletal: Extremities: extremities normal to inspection Skin: no rashes, warm and dry Neurologic: Nonfocal exam Lymphatic: no cervical lymphadenopathy Results & Data Results & Data ([facility]) Vital Signs (Past 12 Hours) Vital Signs Temp Pulse Pulse Resp BP BP Pulse Ox 09/13/22 11:37 89 L 09/13/22 09:35 58 L 16 125/82 93 09/13/22 10:45 53 L 09/13/22 09:30 09/13/22 09:30 36.4 C L 09/13/22 08:03 52 L 09/13/22 07:40 09/13/22 07:40 36.5 C 56 L 24 132/78 92 09/13/22 07:43 88 L 09/13/22 07:29 09/13/22 07:29 36.5 C 56 L 24 132/78 92 09/13/22 07:29 09/13/22 06:45 61 21 93 09/13/22 06:30 55 L 18 117/68 91 09/13/22 06:15 54 L 19 107/74 90 09/13/22 06:00 58 L 17 137/87 87 L 09/13/22 05:45 63 17 91 09/13/22 05:30 59 L 19 140/82 90 09/13/22 05:16 60 18 134/69 93 09/13/22 05:15 60 17 93 09/13/22 05:05 54 L 16 129/92 93 09/13/22 05:00 59 L 15 143/76 H 92 09/13/22 04:55 57 L 17 111/79 92 09/13/22 04:50 57 L 17 119/64 92 09/13/22 04:45 54 L 15 122/77 92 09/13/22 04:40 58 L 20 117/78 93 09/13/22 04:35 57 L 18 125/73 93 09/13/22 04:30 57 L 20 129/77 93 09/13/22 04:26 61 20 156/88 H 90 09/13/22 04:20 59 L 16 128/84 93 09/13/22 04:15 52 L 16 108/71 93 09/13/22 04:10 55 L 16 108/74 93 09/13/22 04:05 56 L 17 119/66 92 09/13/22 04:00 57 L 18 123/71 94 09/13/22 03:55 58 L 18 116/77 94 09/13/22 03:50 58 L 20 122/66 95 09/13/22 03:45 60 17 120/76 95 09/13/22 03:40 66 22 125/80 93 09/13/22 03:35 62 20 136/79 90 09/13/22 03:30 62 18 115/71 94 09/13/22 03:25 57 L 15 105/72 95 09/13/22 03:20 60 18 117/65 95 09/13/22 04:01 57 L 09/13/22 03:15 58 L 19 110/67 96 09/13/22 03:10 59 L 17 114/66 95 09/13/22 03:05 64 17 109/78 94 09/13/22 03:01 66 22 121/81 94 09/13/22 03:00 66 19 95 09/13/22 02:56 65 19 109/81 93 09/13/22 02:50 65 21 131/83 94 09/13/22 02:46 65 21 141/77 H 96 09/13/22 02:45 63 19 96 09/13/22 02:41 62 20 132/75 95 09/13/22 02:31 63 22 138/108 H 96 09/13/22 02:30 63 18 96 09/13/22 02:25 64 17 93 09/13/22 02:21 65 22 123/79 95 09/13/22 02:20 66 19 96 02/16/23 02:15 67 18 91 09/13/22 02:11 66 19 128/83 92 09/13/22 02:10 64 19 94 09/13/22 02:06 65 18 153/103 H 91 09/13/22 02:05 65 23 93 09/13/22 02:00 66 26 H 96 09/13/22 01:55 68 19 159/88 H 91 09/13/22 01:50 65 23 90 09/13/22 01:46 66 27 H 169/102 H 92 09/13/22 01:45 64 23 91 09/13/22 01:40 64 21 90 09/13/22 01:36 65 20 127/71 92 09/13/22 01:35 79 17 94 09/13/22 01:30 64 19 94 09/13/22 01:26 69 20 107/70 93 09/13/22 01:25 65 17 92 09/13/22 01:21 64 21 143/95 H 93 09/13/22 01:20 64 29 H 94 09/13/22 01:16 65 21 139/84 92 09/13/22 01:15 65 25 H 93 09/13/22 01:11 65 23 142/82 H 94 09/13/22 01:10 73 29 H 90 09/13/22 01:05 66 22 93 09/13/22 01:00 82 24 147/96 H 91 09/13/22 01:15 93 Pulse Ox O2 Del Method O2 Del Method O2 Flow Rate O2 Flow Rate 09/13/22 11:37 Oxymask 8 09/13/22 09:35 Oxymask 11 09/13/22 10:45 09/13/22 09:30 Oxymask 11 09/13/22 09:30 09/13/22 08:03 09/13/22 07:40 Oxymask 10 09/13/22 07:40 Oxymask 10 09/13/22 07:43 Oxymask 10 09/13/22 07:29 Oxymask 10 09/13/22 07:29 Oxymask 10 09/13/22 07:29 92 Oxymask 10 09/13/22 06:45 Oxymask 10 09/13/22 06:30 Oxymask 10 09/13/22 06:15 Nasal Cannula 6 09/13/22 06:00 Nasal Cannula 4 09/13/22 05:45 Nasal Cannula 4 09/13/22 05:30 Nasal Cannula 4 09/13/22 05:16 Nasal Cannula 4 09/13/22 05:15 Nasal Cannula 4 09/13/22 05:05 Nasal Cannula 4 09/13/22 05:00 Nasal Cannula 4 09/13/22 04:55 Nasal Cannula 4 09/13/22 04:50 Nasal Cannula 4 09/13/22 04:45 Nasal Cannula 4 09/13/22 04:40 Nasal Cannula 4 09/13/22 04:35 Nasal Cannula 4 09/13/22 04:30 Nasal Cannula 4 09/13/22 04:26 Nasal Cannula 4 09/13/22 04:20 Nasal Cannula 4 09/13/22 04:15 Nasal Cannula 4 09/13/22 04:10 Nasal Cannula 4 09/13/22 04:05 Nasal Cannula 4 09/13/22 04:00 Nasal Cannula 4 09/13/22 03:55 Nasal Cannula 4 09/13/22 03:50 Nasal Cannula 4 09/13/22 03:45 Nasal Cannula 4 09/13/22 03:40 Nasal Cannula 4 09/13/22 03:35 Nasal Cannula 4 09/13/22 03:30 Nasal Cannula 4 09/13/22 03:25 Nasal Cannula 4 09/13/22 03:20 Nasal Cannula 4 09/13/22 04:01 09/13/22 03:15 Nasal Cannula 4 09/13/22 03:10 Nasal Cannula 4 09/13/22 03:05 Nasal Cannula 4 09/13/22 03:01 Nasal Cannula 4 09/13/22 03:00 Nasal Cannula 4 09/13/22 02:56 Nasal Cannula 4 09/13/22 02:50 Nasal Cannula 4 09/13/22 02:46 Nasal Cannula 4 09/13/22 02:45 Nasal Cannula 4 09/13/22 02:41 Nasal Cannula 4 09/13/22 02:31 Nasal Cannula 4 09/13/22 02:30 Nasal Cannula 4 09/13/22 02:25 Nasal Cannula 4 09/13/22 02:21 Nasal Cannula 4 09/13/22 02:20 Nasal Cannula 4 09/13/22 02:15 Nasal Cannula 4 09/13/22 02:11 Nasal Cannula 4 09/13/22 02:10 Nasal Cannula 4 09/13/22 02:06 Nasal Cannula 4 09/13/22 02:05 Nasal Cannula 4 09/13/22 02:00 Nasal Cannula 4 09/13/22 01:55 Nasal Cannula 4 09/13/22 01:50 Nasal Cannula 4 09/13/22 01:46 Nasal Cannula 4 09/13/22 01:45 Nasal Cannula 4 09/13/22 01:40 Nasal Cannula 4 09/13/22 01:36 Nasal Cannula 4 09/13/22 01:35 Nasal Cannula 4 09/13/22 01:30 Nasal Cannula 4 09/13/22 01:26 Nasal Cannula 4 09/13/22 01:25 Nasal Cannula 4 09/13/22 01:21 Nasal Cannula 4 09/13/22 01:20 Nasal Cannula 4 09/13/22 01:16 Nasal Cannula 4 09/13/22 01:15 Nasal Cannula 4 09/13/22 01:11 Nasal Cannula 4 09/13/22 01:10 Nasal Cannula 4 09/13/22 01:05 Nasal Cannula 4 09/13/22 01:00 Nasal Cannula 4 09/13/22 01:15 Nasal Cannula Critical Care Results & Data Vital Signs (Past 12 Hours) Vital Signs Temp Pulse Pulse Resp BP BP Pulse Ox 09/13/22 11:37 89 L 09/13/22 09:35 58 L 16 125/82 93 09/13/22 10:45 53 L 09/13/22 09:30 09/13/22 09:30 36.4 C L 09/13/22 08:03 52 L 09/13/22 07:40 09/13/22 07:40 36.5 C 56 L 24 132/78 92 09/13/22 07:43 88 L 09/13/22 07:29 09/13/22 07:29 36.5 C 56 L 24 132/78 92 09/13/22 07:29 09/13/22 06:45 61 21 93 09/13/22 06:30 55 L 18 117/68 91 09/13/22 06:15 54 L 19 107/74 90 09/13/22 06:00 58 L 17 137/87 87 L 09/13/22 05:45 63 17 91 09/13/22 05:30 59 L 19 140/82 90 09/13/22 05:16 60 18 134/69 93 09/13/22 05:15 60 17 93 09/13/22 05:05 54 L 16 129/92 93 09/13/22 05:00 59 L 15 143/76 H 92 09/13/22 04:55 57 L 17 111/79 92 09/13/22 04:50 57 L 17 119/64 92 09/13/22 04:45 54 L 15 122/77 92 09/13/22 04:40 58 L 20 117/78 93 09/13/22 04:35 57 L 18 125/73 93 09/13/22 04:30 57 L 20 129/77 93 09/13/22 04:26 61 20 156/88 H 90 09/13/22 04:20 59 L 16 128/84 93 09/13/22 04:15 52 L 16 108/71 93 09/13/22 04:10 55 L 16 108/74 93 09/13/22 04:05 56 L 17 119/66 92 09/13/22 04:00 57 L 18 123/71 94 09/13/22 03:55 58 L 18 116/77 94 09/13/22 03:50 58 L 20 122/66 95 09/13/22 03:45 60 17 120/76 95 09/13/22 03:40 66 22 125/80 93 09/13/22 03:35 62 20 136/79 90 09/13/22 03:30 62 18 115/71 94 09/13/22 03:25 57 L 15 105/72 95 09/13/22 03:20 60 18 117/65 95 09/13/22 04:01 57 L 09/13/22 03:15 58 L 19 110/67 96 09/13/22 03:10 59 L 17 114/66 95 09/13/22 03:05 64 17 109/78 94 09/13/22 03:01 66 22 121/81 94 09/13/22 03:00 66 19 95 09/13/22 02:56 65 19 109/81 93 09/13/22 02:50 65 21 131/83 94 09/13/22 02:46 65 21 141/77 H 96 09/13/22 02:45 63 19 96 09/13/22 02:41 62 20 132/75 95 09/13/22 02:31 63 22 138/108 H 96 09/13/22 02:30 63 18 96 09/13/22 02:25 64 17 93 09/13/22 02:21 65 22 123/79 95 09/13/22 02:20 66 19 96 09/13/22 02:15 67 18 91 09/13/22 02:11 66 19 128/83 92 09/13/22 02:10 64 19 94 09/13/22 02:06 65 18 153/103 H 91 09/13/22 02:05 65 23 93 09/13/22 02:00 66 26 H 96 09/13/22 01:55 68 19 159/88 H 91 09/13/22 01:50 65 23 90 09/13/22 01:46 66 27 H 169/102 H 92 09/13/22 01:45 64 23 91 09/13/22 01:40 64 21 90 09/13/22 01:36 65 20 127/71 92 09/13/22 01:35 79 17 94 09/13/22 01:30 64 19 94 09/13/22 01:26 69 20 107/70 93 09/13/22 01:25 65 17 92 09/13/22 01:21 64 21 143/95 H 93 09/13/22 01:20 64 29 H 94 09/13/22 01:16 65 21 139/84 92 09/13/22 01:15 65 25 H 93 09/13/22 01:11 65 23 142/82 H 94 09/13/22 01:10 73 29 H 90 09/13/22 01:05 66 22 93 09/13/22 01:00 82 24 147/96 H 91 09/13/22 01:15 93 Pulse Ox O2 Del Method O2 Del Method O2 Flow Rate O2 Flow Rate 09/13/22 11:37 Oxymask 8 09/13/22 09:35 Oxymask 11 09/13/22 10:45 09/13/22 09:30 Oxymask 11 09/13/22 09:30 09/13/22 08:03 09/13/22 07:40 Oxymask 10 09/13/22 07:40 Oxymask 10 09/13/22 07:43 Oxymask 10 09/13/22 07:29 Oxymask 10 09/13/22 07:29 Oxymask 10 09/13/22 07:29 92 Oxymask 10 09/13/22 06:45 Oxymask 10 09/13/22 06:30 Oxymask 10 09/13/22 06:15 Nasal Cannula 6 09/13/22 06:00 Nasal Cannula 4 09/13/22 05:45 Nasal Cannula 4 09/13/22 05:30 Nasal Cannula 4 09/13/22 05:16 Nasal Cannula 4 09/13/22 05:15 Nasal Cannula 4 09/13/22 05:05 Nasal Cannula 4 09/13/22 05:00 Nasal Cannula 4 09/13/22 04:55 Nasal Cannula 4 09/13/22 04:50 Nasal Cannula 4 09/13/22 04:45 Nasal Cannula 4 09/13/22 04:40 Nasal Cannula 4 09/13/22 04:35 Nasal Cannula 4 09/13/22 04:30 Nasal Cannula 4 09/13/22 04:26 Nasal Cannula 4 09/13/22 04:20 Nasal Cannula 4 09/13/22 04:15 Nasal Cannula 4 09/13/22 04:10 Nasal Cannula 4 09/13/22 04:05 Nasal Cannula 4 09/13/22 04:00 Nasal Cannula 4 09/13/22 03:55 Nasal Cannula 4 09/13/22 03:50 Nasal Cannula 4 09/13/22 03:45 Nasal Cannula 4 09/13/22 03:40 Nasal Cannula 4 09/13/22 03:35 Nasal Cannula 4 09/13/22 03:30 Nasal Cannula 4 09/13/22 03:25 Nasal Cannula 4 09/13/22 03:20 Nasal Cannula 4 09/13/22 04:01 09/13/22 03:15 Nasal Cannula 4 09/13/22 03:10 Nasal Cannula 4 09/13/22 03:05 Nasal Cannula 4 09/13/22 03:01 Nasal Cannula 4 09/13/22 03:00 Nasal Cannula 4 09/13/22 02:56 Nasal Cannula 4 09/13/22 02:50 Nasal Cannula 4 09/13/22 02:46 Nasal Cannula 4 09/13/22 02:45 Nasal Cannula 4 09/13/22 02:41 Nasal Cannula 4 09/13/22 02:31 Nasal Cannula 4 09/13/22 02:30 Nasal Cannula 4 09/13/22 02:25 Nasal Cannula 4 09/13/22 02:21 Nasal Cannula 4 09/13/22 02:20 Nasal Cannula 4 09/13/22 02:15 Nasal Cannula 4 09/13/22 02:11 Nasal Cannula 4 09/13/22 02:10 Nasal Cannula 4 09/13/22 02:06 Nasal Cannula 4 09/13/22 02:05 Nasal Cannula 4 09/13/22 02:00 Nasal Cannula 4 09/13/22 01:55 Nasal Cannula 4 09/13/22 01:50 Nasal Cannula 4 09/13/22 01:46 Nasal Cannula 4 09/13/22 01:45 Nasal Cannula 4 09/13/22 01:40 Nasal Cannula 4 09/13/22 01:36 Nasal Cannula 4 09/13/22 01:35 Nasal Cannula 4 09/13/22 01:30 Nasal Cannula 4 09/13/22 01:26 Nasal Cannula 4 09/13/22 01:25 Nasal Cannula 4 09/13/22 01:21 Nasal Cannula 4 09/13/22 01:20 Nasal Cannula 4 09/13/22 01:16 Nasal Cannula 4 09/13/22 01:15 Nasal Cannula 4 09/13/22 01:11 Nasal Cannula 4 09/13/22 01:10 Nasal Cannula 4 09/13/22 01:05 Nasal Cannula 4 09/13/22 01:00 Nasal Cannula 4 09/13/22 01:15 Nasal Cannula Lab & Micro Results (Past 24 Hours) RBC 3.62 M/uL (4.20-5.40) L 09/13/22 WBC 8.27 K/ul (4.8-10.8) 09/13/22 Hgb 11.9 g/dl (12.0-16.0) L 09/13/22 Hct 35.0 % (37.0-47.0) L 09/13/22 MCV 96.7 fL (80.0-100.0) 09/13/22 MCH 32.9 pg (25.0-34.0) 09/13/22 MCHC 34.0 g/dL (32.0-36.0) 09/13/22 RDW Standard Deviation 49.1 fL (36.4-46.3) H 09/13/22 RDW Coefficient of Variation 13.8 % (11.5-14.5) 09/13/22 Plt Count 100 K/uL (130-400) L 09/13/22 MPV 10.4 fL (9.4-12.4) 09/13/22 Nucleated Red Blood Cells % (auto) 0.2 % 09/13 Nucleated RBC Absolute Count (auto) 0.02 K/uL (0-0.12) 08/29 01/18 Neutrophils (%) (Auto) 81.8 % 09/13/22 Lymphocytes (%) (Auto) 10.8 % 09/13/22 Monocytes # (Auto) 0.53 K/uL (0.11-0.59) 09/13/22 Eosinophils # (Auto) 0.01 K/uL (0-0.50) 09/13/22 Immature Granulocyte % (Auto) 0.7 % 09/13/22 Neutrophils # (Auto) 6.76 K/uL (1.40-6.50) H 09/13/22 Lymphocytes # (Auto) 0.89 K/uL (1.2-3.4) L 09/13/22 Monocytes # (Auto) 0.53 K/uL (0.11-0.59) 09/13/22 Eosinophils # (Auto) 0.01 K/uL (0-0.50) 09/13/22 Basophils # (Auto) 0.02 K/uL (0-0.2) 09/13/22 Immature Granulocyte # (Auto) 0.06 K/uL (0.01-0.20) 3 Na 141 mmol/L (136-145) 09/13/22 K 3.6 mmol/L (3.5-5.1) 09/13/22 Cl 97 mmol/L (98-107) L 09/13/22 CO2 38 mmol/L (21-32) H 09/13/22 Anion Gap 6 (3-11) 09/13/22 BUN 8 mg/dl (6-23) 09/13/22 Creatinine 0.95 mg/dl (0.6-1.2) 09/13/22 Estimated GFR ( Amer) 78.2 ml/min 09/13/22 Estimated GFR (Non-Af Amer) 67.4 ml/min 09/13/22 BUN/Creatinine Ratio 8.4 (10-20) L 09/13/22 Glu 107 mg/dl (70-99(Fasting)) H 09/13/22 Ca 8.6 mg/dl (8.5-10.1) 09/13/22 Phosphorus Level 2.2 mg/dl (2.5-4.9) L 09/12/22 Total Bilirubin 0.7 mg/dl (0.2-1.0) 09/12/22 AST 62 U/L (13-39) H 09/12/22 ALT 33 U/L (7-52) 09/12/22 Alkaline Phosphatase 234 U/L (34-104) H 09/12/22 TP 7.2 gm/dl (6.0-8.3) 09/12/22 Albumin 4.0 gm/dl (3.4-5.0) 09/12/22 Globulin 3.2 gm/dl (2.5-4.0) 09/12/22 Albumin/Globulin Ratio 1.3 (0.9-2) 09/12/22 Mg 2.0 mg/dl (1.7-2.4) 09/13/22 05:27 Calcium Level 8.6 mg/dl (8.5-10.1) 09/13/22 05:27 Prothromb Time International Ratio 1.1 (0.9-1.1) 09/12/22 23:5 5 Shawn Test Pass 09/13/22 12:21 Diagnostic Findings (Past 24 Hours) Chest X-Ray 09/13/22 00:06 XR chest 1V portable CLINICAL HISTORY: Shortness of breath. COMPARISON STUDY: Chest radiograph and chest CT May 16, 2022. FINDINGS: Lung volumes are normal. Lungs are clear. Minimal left basilar opacity favors atelectasis. There is no pneumothorax or pleural effusion. Cardiomegaly is unchanged. Mediastinal contours are normal. There is no evidence for pulmonary edema. Old, healed anterior left second rib fracture. IMPRESSION: No acute cardiopulmonary findings. ACT 112: Negative or not required by law. Electronically signed by: Geoff Cote M.D. 09/13/2022 6:28 AM Patient had undergone CT of the chest back in April. This demonstrated some patchy basilar opacities with dilatation of the pulmonary arterial tree. CT of the abdomen performed at that time also revealed hepatic steatosis without evidence for overt cirrhosis at that time. No PFTs available. No polysomnography available. I & O Totals 24 Hours 09/12/22 09/13/22 09/14/22 06:59 06:59 06:59 Intake Total 1966.00 / 1966.00 1211.2 / 1211.2 Output Total 850 / 850 350 / 350 Balance 1116.00 / 1116.00 861.2 / 861.2 Cumulative 09/12/22 23:30 thru 09/13/22 10:48 Intake Total 3177.20 Output Total 1200 Balance 1977.20 RT Ventilator Mngmt (Last Documented) Ventilator Ordered Settings Respiratory Rate 16 09/13/22 09:35 Ventilator - PT Measurements Respiratory Rate 16 PG Care Time/CCT Total # of Minutes Spent Total Time Spent with Patient: Total time spent is greater than 50% in coordination of care (as documented) at patient's floor/unit and/or counseling patient: Coding Level of Care Code INP/OBS CONSULT LVL 5, 80 MIN Diagnoses Hypercapnic respiratory failure J96.92 Acute hypoxemic respiratory failure J96.01 Pulmonary hypertension I27.20 COPD (chronic obstructive pulmonary disease) J44.9
[2022-09-13 13:16] LABS: Adenovirus PCR Not Detected (NotDetected); Bordetella parapertussis PCR Not Detected (NotDetected); Bordetella pertussis PCR Not Detected (NotDetected); Chlamydia pneumoniae PCR Not Detected (NotDetected); Coronavirus 229E PCR Not Detected (NotDetected); Coronavirus CoV-2 (COVID19)PCR Not Detected (NotDetected); Coronavirus HKU1 PCR Not Detected (NotDetected); Coronavirus NL63 PCR Not Detected (NotDetected); Coronavirus OC43PCR Not Detected (NotDetected); Human Metapneumovirus PCR Not Detected (NotDetected); Influenza A PCR Not Detected (NotDetected); Influenza B PCR Not Detected (NotDetected); Mycoplasma pneumoniae PCR Not Detected (NotDetected); Parainfluenza Virus 1 PCR Not Detected (NotDetected); Parainfluenza Virus 2 PCR Not Detected (NotDetected); Parainfluenza Virus 3 PCR Not Detected (NotDetected); Parainfluenza Virus 4 PCR Not Detected (NotDetected); Respiratory Syncytial VirusPCR Not Detected (NotDetected); Rhinovirus/Enterovirus PCR Not Detected (NotDetected)
[2022-09-13] MEDS ORDERED: FUROSEMIDE INJ 20 MG/2 ML VIAL IV ONE (13:18)
[2022-09-13 14:03] LABS: BUN Creatinine Ratio 8.8 (10-20); Calcium 8.2 mg/dl (8.5-10.1); Creatinine Clr Calc Pharmacy 88.4 ml/min; Est GFR (African American) 82.3 ml/min; Potassium 3.4 mmol/L (3.5-5.1)
--- NOTE | 2022-09-13 14:38 | Electrocardiogram Report ---
Test Reason : Blood Pressure : / mmHG Vent. Rate : 059 BPM Atrial Rate : 059 BPM P-R Int : 122 ms QRS Dur : 078 ms QT Int : 596 ms P-R-T Axes : 060 080 117 degrees QTc Int : 590 ms Sinus bradycardia with frequent Premature ventricular complexes Abnormal ECG When compared with ECG of 12-SEP-2022 23:52, Vent. rate has decreased BY 49 BPM Criteria for Anteroseptal infarct are no longer Present Confirmed by Fabian Wayne ([id number]) on 09/13/2022 2:38:19 PM Referred By: REFERRED SELF Confirmed By:Sawyer Wayne
[2022-09-13] MEDS: UMECLIDINIUM/VILANTEROL 62.5/25MCG 7 PUFFS/INHALER INH SCH (14:51)
[2022-09-13] MEDS: LORazepam 2 MG/1 ML VIAL IV PRN ×2 (15:21→20:34)
[2022-09-13] MEDS ORDERED: OPTIRAY 320 500ml IV ONE (16:24)
--- NOTE | 2022-09-13 16:49 | CT Scan Report ---
CT angio chest PE protocol CT DOSE: 776.83 mGy.cm HISTORY: 57 years-old Female with PE. Acute shortness of breath TECHNIQUE: Multiple CTA images of the chest were obtained after the intravenous administration of 109 ml Optiray. Coronal and sagittal MIPS were obtained from the axial data set and were submitted for review. All measurements were obtained according to NASCET criteria. A dose lowering technique was u tilized adhering to the principles of ALARA. COMPARISON: Chest CT 05/16/2022 FINDINGS: CTA: Mild cardiomegaly with mild to moderate coronary artery calcifications. Atherosclerosis of the thorac ic aorta without aneurysm or dissection. Segmental and subsegmental pulmonary emboli within the right lower lobe and lingula. Possible additional subsegmental pulmonary bullae within the left lower lobe . No central pulmonary emboli or evidence of right heart strain. CT CHEST: Unremarkable thyroid. 10 mm subcarinal lymph node on image 197 is stable and favored to be benign. Tr karen pleural effusions. No pneumothorax. Stable 5 mm solid nodule of the right lung apex on image 293. Mild bronchial wall thickening with atelectasis and air trapping. Mild intralobular septal thickenin g with mild subsegmental dependent bibasilar consolidation. 5 mm subpleural nodule within the left up per lobe on image 224 stable from prior. No acute process of the imaged upper abdomen. Hepatic steatosis. Mild generalized body wall edema. No acute fracture. IMPRESSION: 1. There are a few segmental and subsegmental bilateral pulmonary emboli noted. No central pulmonary emboli or evidence of right heart strain. 2. Trace pleural effusions with questioned mild pulmonary edema. 3. Mild bibasilar densities favoring atelectasis. Pneumonitis considered less likely. ACT 112: Negative or not required by law. The above report was generated using voice recognition software. It may contain grammatical, syntax o r spelling errors. Electronically signed by: Raman Le M.D. 09/13/2022 4:47 PM
[2022-09-13] MEDS ORDERED: Heparin IV Adult Wt-Based Standard *NO* Bolus Protocol IV SCH (17:07)
--- NOTE | 2022-09-13 17:20 | Hospitalist Progress Note ---
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 Per patient, she was sitting on a chair when she suddenly lost consciousness for about a second [witnessed, patient's friend was there] and her friend woke her up; and reports being aware of the surrounding and her friend immediately after waking up from LOC. Denies any fall or abnormal body movements. She is being managed for the following: Syncope: Electrolyte abnormality: Admitting potassium 2.7, magnesium 1.5, phosphorus 2.2. Alcohol abuse: Drinks 4 bottle of Smirnoff (8% alc) every day, reports drinking heavily since last 3 months. Patient came in with brief loss of consciousness, no fall or trauma, no abnormal limb activity, no confusion after recovery per patient. Syncope multifactorial, PE vs electrolytes abn vs cardiac arrhythmia vs hypoxia vs others Abnormal EKG at presentation, troponin minimally elevated at presentation is already downtrending and WNL. Echo with EF of 60 to 65%, borderline concentric LVH, flattened septum consistent with RV pressure overload, RVSP moderate to severe elevation at 50 to 60 mmHg, small patent reina ovale noted. Monitor replete electrolytes. AWSS protocol. Pt counselled against alcohol use. Cardiology on board, appreciate recommendation. C/w tele. Acute on chronic hypoxemic respiratory failure: likely 2/2 PE vs Pul HTN vs both vs other etiologies. Hypercarbic resp failure: Admitting ABG w/ elevated CO2. Pulm evaled, OP PSG indicated. Pulmonary embolism: per CTA chest Pul HTN: per echo. Patient was discharged in April last year on 2 L nasal cannula oxygen which patient reports has been using it and needed to crank up to 4 L in the last 2 days [employer]. Admitting CXR with no acute finding, admitting CTA chest with few segmental and subsegmental bilateral PE. No evidence of right heart strain. Trace pleural effusion and mild pulmonary edema. ECHO as above. Admitting ABG with PaO2 of 64. Admitting procal negative. WBC wnl. Currently on 8 to 10 L by oxygen mask. Pulmonology consulted, appreciate recommendation, OP PFT. PE detected in CTA chest, will initiate heparin drip. Chest pain: Patient reports getting on and off chest pain for the last 2 months, occasionally worsened by activity but no actual correlation with rest or activity per patient. Denies any abdominal pain. Could be cardiac origin vs GERD. Tele monitoring. Cardio on board. Will use PPI BID given her alcohol abuse history. Tobacco abuse: Patient stated smoking since age 15, currently smokes 4 cigarettes a day, has been cutting down since 3 months and has been on nicotine patch. Counselled on smoking cessation. Vaping: Patient reports that she has been vaping since last month. Counselled regarding vaping cessation. Constipation: Patient reports moving bowels every 3 to 4 days, likely secondary to methadone. Bowel regimen scheduled and as needed. Other chronic medical conditions: Hepatitis C, ongoing alcoholism: Mild elevation in liver function test. Counseled about alcohol cessation. Follow-up with GI for hepatitis C. COPD: Continue with home inhalers, no wheezing on exam. HTN, GERD, thrombocytopenia--- resume home meds as able DVT prophylaxis: Patient on heparin drip due to PE. Follow platelets closely. Full code Admission and Anticipated Discharge Date Admission Date: September 13, 2022 Subjective Patient seen and examined at bedside as a follow-up of syncope and hypoxemic respiratory failure. Patient was lying in bed, on 10 L oxygen via mask, NAD, reports no new acute event overnight. Patient reports occasional cough with clear to campos-colored sputum, reports occasional chest pain and heartburn, denies any fever, reports moving bowels every 3 to 4 days and reports being constipated, denies any pain or burning while passing urine, denies any pain anywhere in the body at bedside exam. Physical Exam Physical Exam: GENERAL: Alert and oriented x3. NAD, on 10 L via OM. HEENT: No pallor, no icterus. Pupils equal, round and reactive to light. Oral mucosa moist. NECK: No JVD, no neck masses. HEART: S1 and S2 heard. Regular rate and rhythm. No murmur, no gallop. RESPIRATORY SYSTEM: Normal AP diameter. No accessory muscle use. No wheezing, b/l crackles. ABDOMEN: Soft, bowel sounds present, epigastrium - mild tenderness, no distention. CENTRAL NERVOUS SYSTEM: No facial droop. Speech is clear. Obeys simple commands. Moves extremities. EXTREMITIES: No edema, no erythema seen. Results & Data Results & Data ([facility]) Vital Signs (Past 12 Hours) Vital Signs Temp Pulse Pulse Resp BP BP Pulse Ox 09/13/22 16:10 59 L 09/13/22 15:40 36.8 C 09/13/22 11:37 89 L 09/13/22 09:35 58 L 16 125/82 93 09/13/22 10:45 53 L 09/13/22 09:30 09/13/22 09:30 36.4 C L 09/13/22 08:03 52 L 09/13/22 07:40 09/13/22 07:40 36.5 C 56 L 24 132/78 92 09/13/22 07:43 88 L 09/13/22 07:29 09/13/22 07:29 36.5 C 56 L 24 132/78 92 09/13/22 07:29 09/13/22 06:45 61 21 93 09/13/22 06:30 55 L 18 117/68 91 09/13/22 06:15 54 L 19 107/74 90 09/13/22 06:00 58 L 17 137/87 87 L 09/13/22 05:45 63 17 91 09/13/22 05:30 59 L 19 140/82 90 09/13/22 05:16 60 18 134/69 93 09/13/22 05:15 60 17 93 09/13/22 05:05 54 L 16 129/92 93 09/13/22 05:00 59 L 15 143/76 H 92 09/13/22 04:55 57 L 17 111/79 92 09/13/22 04:50 57 L 17 119/64 92 09/13/22 04:45 54 L 15 122/77 92 09/13/22 04:40 58 L 20 117/78 93 Pulse Ox O2 Del Method O2 Del Method O2 Flow Rate O2 Flow Rate 09/13/22 16:10 09/13/22 15:40 09/13/22 11:37 Oxymask 8 09/13/22 09:35 Oxymask 11 09/13/22 10:45 09/13/22 09:30 Oxymask 11 09/13/22 09:30 09/13/22 08:03 09/13/22 07:40 Oxymask 10 09/13/22 07:40 Oxymask 10 09/13/22 07:43 Oxymask 10 09/13/22 07:29 Oxymask 10 09/13/22 07:29 Oxymask 10 09/13/22 07:29 92 Oxymask 10 09/13/22 06:45 Oxymask 10 09/13/22 06:30 Oxymask 10 09/13/22 06:15 Nasal Cannula 6 09/13/22 06:00 Nasal Cannula 4 09/13/22 05:45 Nasal Cannula 4 09/13/22 05:30 Nasal Cannula 4 09/13/22 05:16 Nasal Cannula 4 09/13/22 05:15 Nasal Cannula 4 09/13/22 05:05 Nasal Cannula 4 09/13/22 05:00 Nasal Cannula 4 09/13/22 04:55 Nasal Cannula 4 09/13/22 04:50 Nasal Cannula 4 09/13/22 04:45 Nasal Cannula 4 09/13/22 04:40 Nasal Cannula 4
[2022-09-13] MEDS: HEPARIN SODIUM/DEXTROSE 25,000 UNITS/500 ML BAG IV SCH (17:55)
[2022-09-13] MEDS: MAGNESIUM OXIDE 400 MG TAB PO SCH (20:34)
[2022-09-13] MEDS: DOCUSATE SODIUM 100 MG CAP PO SCH (20:35)
[2022-09-13] MEDS: PANTOprazole 40 MG TAB PO SCH (20:35)
[2022-09-14] MEDS: LORazepam 2 MG/1 ML VIAL IV PRN ×4 (00:31→18:15)
[2022-09-14 01:25] LABS: Hematocrit (blood only) 31.4 % (37.0-47.0); Hemoglobin 10.4 g/dl (12.0-16.0); Mean Corpuscular Hemoglobin 32.9 pg (25.0-34.0); Mean Corpuscular Hgb Conc 33.1 g/dL (32.0-36.0); Mean Corpuscular Volume 99.4 fL (80.0-100.0); Mean Platelet Volume 10.4 fL (9.4-12.4); Nucleated RBC # (auto) 0.03 K/uL (0-0.12); Nucleated RBC % (auto) 0.5 %; Platelet Count 98 K/uL (130-400); RDW Coefficient of Variation 14.6 % (11.5-14.5); RDW Standard Deviation 53.1 fL (36.4-46.3); Red Blood Count 3.16 M/uL (4.20-5.40); White Blood Count 6.19 K/ul (4.8-10.8)
[2022-09-14 01:41] LABS: Partial Thromboplastin Ratio 1.6; Partial Thromboplastin Time 44.6 Seconds (21.0-31.0)
[2022-09-14] MEDS: GABAPENTIN 600 MG TAB PO SCH ×3 (06:13→20:14)
--- NOTE | 2022-09-14 06:23 | Ultrasound Report ---
BILATERAL LOWER EXTREMITY VENOUS DOPPLER CLINICAL HISTORY: Lower extremity pain. Evaluate for deep venous thrombus. COMPARISON STUDY: No previous studies for comparison. TECHNIQUE: Sonography of the deep venous system of the bilateral lower extremities was performed. Co mpression and augmentation were evaluated. FINDINGS: The bilateral common femoral, superficial femoral and popliteal veins were compressible. A ugmentation was normal. Flow was shown within the deep calf vessels. IMPRESSION: No evidence of deep venous thrombus within the bilateral lower extremities. ACT 112: Negative or not required by law. Electronically signed by: Geoff Cote M.D. 09/14/2022 6:20 AM
[2022-09-14] MEDS: DOCUSATE SODIUM 100 MG CAP PO SCH ×2 (07:45→20:10)
[2022-09-14] MEDS: DULoxetine HCL 30 MG CAP PO SCH (07:46)
[2022-09-14] MEDS: PANTOprazole 40 MG TAB PO SCH ×2 (07:46→20:11)
[2022-09-14] MEDS: NICOTINE 14 MG/24 HR PATCH TD SCH (07:47)
[2022-09-14] MEDS: METOPROLOL SUCC 25MG EXT REL TAB PO SCH ×2 (07:47→20:10)
[2022-09-14] MEDS: amLODIPine BESYLATE 5 MG TAB PO SCH (07:47)
[2022-09-14] MEDS: POLYETHYLENE (MIRALAX) 17 GM PACK PO SCH (07:47)
[2022-09-14] MEDS: MAGNESIUM OXIDE 400 MG TAB PO SCH ×3 (07:47→18:16)
[2022-09-14] MEDS: UMECLIDINIUM/VILANTEROL 62.5/25MCG 7 PUFFS/INHALER INH SCH (07:48)
--- NOTE | 2022-09-14 07:50 | Pulmonology Progress Note ---
Date of Service September 14, 2022 Assessment & Plan (1) Hypercapnic respiratory failure: (2) Acute hypoxemic respiratory failure: (3) Pulmonary hypertension: (4) COPD (chronic obstructive pulmonary disease): (5) Pulmonary embolism: Plan Impression: 57-year-old female presenting to the hospital with syncopal episode found to have elevated pulmonary arterial pressures on echocardiogram and hypoxemic respiratory failure. Her blood gas demonstrates chronic hypercarbic respiratory failure of unclear etiology. CT angiogram yesterday demonstrated small filling defects consistent with thromboembolic disease. The patient's been initiated on a heparin infusion Recommendations: 1. 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 Continue attempts to wean oxygen to maintain saturations at or around of 88%. Given her shunt physiology, it may be difficult to achieve oxygen saturations higher than this. 2. Hypercarbic respiratory failure: Unclear etiology. May have a component of overlap syndrome/sleep disordered breathing. Obesity hypoventilation would also be in the differential. She does not appear to manifest any neuromuscular we akness. As she is well compensated, do not think we need to institute noninvasive positive pressure ventilation currently. Outpatient polysomnography is recommended. 3. Pulmonary hypertension: The patient could have several potential contributing processes. With prior history of substance abuse, Group 1 pulmonary hypertension is possible. Given her alcohol use, portal pulmonary hypertension would be in the differential if she has underlying cirrhosis. Her last echocardiogram demonstrated diastolic dysfunction so there may be a component of group 2 pulmonary hypertension. With COPD and hypercarbia, group 3 pulmonary hypertension would also be possible. She has evidence of acute PE. She is at risk for development of group 4 pulmonary hypertension and she may require a VQ scan in the outpatient setting for evaluation of chronic thromboembolic pulmonary hypertension. Ultimately, the patient will require referral to a tertiary pulmonary hypertension center of excellence for consi deration of right and left heart catheterization. They will need to assess her left ventricular end-diastolic pressure as well as evaluate PA pressures and response to vasodilators. Would not institute pulmonary vasodilator medications at this point in time without that additional data. Diuretics are recommended to optimize volume status. Continue diuretics until BUN/creatinine bump 4. With the patient's extensive history of alcohol abuse, she may have a component of cirrhosis although that was not evident on the CT scan performed back in April. Her synthetic function is preserved. May consider additional GI evaluation and did make recommendation for abstinence of alcohol. She appears to be withdrawing. She is been initiated on Ativan and gabapentin. Per primary service 5. Smoking cessation recommended to the patient. Outpatient pulmonary function test recommended. He appears to have more wheezing and shortness of breath today consistent with acute exacerbation of chronic obstructive pulmonary disease. Continue Anoro and as needed DuoNebs. Will place on doxycycline and prednisone 40 mg a day for acute exacerbation of COPD 6. The patient should have outpatient overnight attended polysomnography performed. She is not appropriate for home sleep testing. 7. Acute PE: Continue anticoagulation. Can likely transition to oral DOAC. Given her PFO and shunt physiology, can make a case for lifelong anticoagulation. No indication for thrombophilia work-up We will continue to follow with you. Above recommendations and plan were discussed with the patient as well as with the bedside nurse. Questions were answered to the best my ability. She expressed understanding and is in agreement with plan as outlined Admission and Anticipated Discharge Date Admission Date: September 13, 2022 Subjective Patient seen and examined. MAR reviewed. Discussed with the bedside nursing. The patient is experiencing increasing tremors. She was started on gabapentin and Ativan last night. She feels she may be withdrawing from alcohol. She denies any auditory visual or tactile hallucinations. She is not demonstrated any hemodynamic instability. The patient reports her breathing is better. She is wheezing more. She is coughing but not expectorating any phlegm. No chest pain. She denies fevers chills night sweats. She is tolerating diet. She denies any chest pain. Review of Systems Review of Systems: All systems reviewed & are unremarkable except as noted in Subjective Physical Exam Constitutional: WD/WN, vitals as above Neck: trachea midline, no thyromegaly Respiratory: no respiratory distress, no labored breathing, no cough and not tachypneic Auscultation: + wheezes; no crackles Cardiovascular: Rate/Rhythm: not tachycardic Heart Sounds: normal S1 and normal S2; no murmur Palpation: no heave Extremities: no edema No S3 or RV tap Gastrointestinal (Abdomen): normal bowel sounds, soft, nontender, no hepatosplenomegaly Musculoskeletal: Extremities: extremities normal to inspection Skin: no rashes, warm and dry Lymphatic: no cervical lymphadenopathy Results & Data Results & Data ([facility]) Vital Signs (Past 12 Hours) Vital Signs Temp Pulse Pulse Resp BP BP Pulse Ox 09/14/22 07:20 37.2 C 70 24 146/65 H 94 09/14/22 00:00 56 L 15 95 09/14/22 00:00 117/68 09/13/22 23:30 56 L 14 98 09/13/22 23:43 54 L 09/14/22 00:00 37.1 C 09/13/22 22:35 37.1 C 56 L 14 103/59 L 90 09/13/22 20:00 09/13/22 20:24 37.1 C 09/13/22 20:17 73 18 93 09/13/22 20:17 111/72 09/13/22 20:15 73 14 93 09/13/22 20:00 78 24 94 O2 Del Method O2 Flow Rate 09/14/22 07:20 Oxymask 8 09/14/22 00:00 Oxymask 7 09/14/22 00:00 09/13/22 23:30 09/13/22 23:43 09/14/22 00:00 09/13/22 22:35 Oxymask 7 09/13/22 20:00 Oxymask 7 09/13/22 20:24 09/13/22 20:17 09/13/22 20:17 09/13/22 20:15 Oxymask 7 09/13/22 20:00 Critical Care Results & Data Vital Signs (Past 12 Hours) Vital Signs Temp Pulse Pulse Resp BP BP Pulse Ox 09/14/22 07:20 37.2 C 70 24 146/65 H 94 09/14/22 00:00 56 L 15 95 09/14/22 00:00 117/68 09/13/22 23:30 56 L 14 98 09/13/22 23:43 54 L 09/14/22 00:00 37.1 C 09/13/22 22:35 37.1 C 56 L 14 103/59 L 90 09/13/22 20:00 09/13/22 20:24 37.1 C 09/13/22 20:17 73 18 93 09/13/22 20:17 111/72 09/13/22 20:15 73 14 93 09/13/22 20:00 78 24 94 O2 Del Method O2 Flow Rate 09/14/22 07:20 Oxymask 8 09/14/22 00:00 Oxymask 7 09/14/22 00:00 09/13/22 23:30 09/13/22 23:43 09/14/22 00:00 09/13/22 22:35 Oxymask 7 09/13/22 20:00 Oxymask 7 09/13/22 20:24 09/13/22 20:17 09/13/22 20:17 09/13/22 20:15 Oxymask 7 09/13/22 20:00 Lab & Micro Results (Past 24 Hours) RBC 3.16 M/uL (4.20-5.40) L 09/14/22 WBC 6.19 K/ul (4.8-10.8) 09/14/22 Hgb 10.4 g/dl (12.0-16.0) L 09/14/22 Hct 31.4 % (37.0-47.0) L 09/14/22 MCV 99.4 fL (80.0-100.0) 09/14/22 MCH 32.9 pg (25.0-34.0) 09/14/22 MCHC 33.1 g/dL (32.0-36.0) 09/14/22 RDW Standard Deviation 53.1 fL (36.4-46.3) H 09/14/22 RDW Coefficient of Variation 14.6 % (11.5-14.5) H 09/14/22 Plt Count 98 K/uL (130-400) L 09/14/22 MPV 10.4 fL (9.4-12.4) 09/14/22 Nucleated Red Blood Cells % (auto) 0.5 % 09/14 Nucleated RBC Absolute Count (auto) 0.03 K/uL (0-0.12) 08/29 02/17 Na 141 mmol/L (136-145) 09/13/22 K 3.4 mmol/L (3.5-5.1) L 09/13/22 Cl 99 mmol/L (98-107) 09/13/22 CO2 35 mmol/L (21-32) H 09/13/22 Anion Gap 7 (3-11) 09/13/22 BUN 8 mg/dl (6-23) 09/13/22 Creatinine 0.91 mg/dl (0.6-1.2) 09/13/22 Estimated GFR ( Amer) 82.3 ml/min 09/13/22 Estimated GFR (Non-Af Amer) 71.0 ml/min 09/13/22 BUN/Creatinine Ratio 8.8 (10-20) L 09/13/22 Glu 93 mg/dl (70-99(Fasting)) 09/13/22 Ca 8.2 mg/dl (8.5-10.1) L 09/13/22 Mg 2.0 mg/dl (1.7-2.4) 09/13/22 13:00 Calcium Level 8.2 mg/dl (8.5-10.1) L 09/13/22 13:00 Shawn Test Pass 09/13/22 12:21 Diagnostic Findings (Past 24 Hours) Chest CTA 09/13/22 16:16 CT angio chest PE protocol CT DOSE: 776.83 mGy.cm HISTORY: 57 years-old Female with PE. Acute shortness of breath TECHNIQUE: Multiple CTA images of the chest were obtained after the intravenous administration of 109 ml Optiray. Coronal and sagittal MIPS were obtained from the axial data set and were submitted for review. All measurements were obtained according to NASCET criteria. A dose lowering technique was utilized adhering to the principles of ALARA. COMPARISON: Chest CT 05/16/2022 FINDINGS: CTA: Mild cardiomegaly with mild to moderate coronary artery calcifications. Atherosclerosis of the thoracic aorta without aneurysm or dissection. Segmental and subsegmental pulmonary emboli within the right lower lobe and lingula. Possible additional subsegmental pulmonary bullae within the left lower lobe. No central pulmonary emboli or evidence of right heart strain. CT CHEST: Unremarkable thyroid. 10 mm subcarinal lymph node on image 197 is stable and favored to be benign. Trace pleural effusions. No pneumothorax. Stable 5 mm solid nodule of the right lung apex on image 293. Mild bronchial wall thickening with atelectasis and air trapping. Mild intralobular septal thickening with mild subsegmental dependent bibasilar consolidation. 5 mm subpleural nodule within the left upper lobe on image 224 stable from prior. No acute process of the imaged upper abdomen. Hepatic steatosis. Mild generalized body wall edema. No acute fracture. IMPRESSION: 1. There are a few segmental and subsegmental bilateral pulmonary emboli noted. No central pulmonary emboli or evidence of right heart strain. 2. Trace pleural effusions with questioned mild pulmonary edema. 3. Mild bibasilar densities favoring atelectasis. Pneumonitis considered less likely. ACT 112: Negative or not required by law. The above report was generated using voice recognition software. It may contain grammatical, syntax or spelling errors. Electronically signed by: Raman Le M.D. 09/13/2022 4:47 PM Venous Doppler Study 09/13/22 18:44 BILATERAL LOWER EXTREMITY VENOUS DOPPLER CLINICAL HISTORY: Lower extremity pain. Evaluate for deep venous thrombus. COMPARISON STUDY: No previous studies for comparison. TECHNIQUE: Sonography of the deep venous system of the bilateral lower extremities was performed. Compression and augmentation were evaluated. FINDINGS: The bilateral common femoral, superficial femoral and popliteal veins were compressible. Augmentation was normal. Flow was shown within the deep calf vessels. IMPRESSION: No evidence of deep venous thrombus within the bilateral lower extremities. ACT 112: Negative or not required by law. Electronically signed by: Geoff Cote M.D. 09/14/2022 6:20 AM I & O Totals 24 Hours 09/13/22 09/14/22 09/15/22 06:59 06:59 06:59 Intake Total 1966.00 / 1966.00 2046.467 / 2046.467 163.783 / 163.783 Output Total 850 / 850 1725 / 1725 Balance 1116.00 / 1116.00 321.467 / 321.467 163.783 / 163.783 Cumulative 09/12/22 23:30 thru 09/14/22 07:11 Intake Total 4176.250 Output Total 2575 Balance 1601.250 RT Ventilator Mngmt (Last Documented) Ventilator Ordered Settings Respiratory Rate 24 09/14/22 07:20 Ventilator - PT Measurements Respiratory Rate 24 PG Care Time/CCT Total # of Minutes Spent Total Time Spent with Patient: Total time spent is greater than 50% in coordination of care (as documented) at patient's floor/unit and/or counseling patient: Coding Level of Care Code 08810 SUB INP/OBS CARE 3/50MIN Diagnoses Hypercapnic respiratory failure J96.92 Acute hypoxemic respiratory failure J96.01 Pulmonary hypertension I27.20 COPD (chronic obstructive pulmonary disease) J44.9 Pulmonary embolism I26.99
[2022-09-14] MEDS: THIAMINE HCL 100 MG in SYRINGE 9 ML IV SCH (07:51)
[2022-09-14] MEDS: FOLIC ACID 1 MG in SYRINGE 9.8 ML IV SCH (07:51)
[2022-09-14] MEDS: DOXYCYCLINE HYCLATE 100 MG CAP PO SCH ×2 (08:14→20:09)
[2022-09-14] MEDS: FUROSEMIDE 20 MG TAB PO SCH (08:15)
[2022-09-14] MEDS: predniSONE 20 MG TAB PO SCH ×2 (08:15→20:12)
[2022-09-14] MEDS: POTASSIUM CHLORIDE CRTAB 20 MEQ TABCR PO SCH ×3 (08:15→20:11)
[2022-09-14] MEDS: METHADONE HCL 10 MG TAB PO SCH (08:15)
[2022-09-14] MEDS: clonazePAM 0.5 MG TAB PO SCH ×2 (08:16→20:13)
[2022-09-14 08:51] LABS: Albumin Level 3.6 gm/dl (3.4-5.0); BUN Creatinine Ratio 8.5 (10-20); Bilirubin Direct 0.1 mg/dl (0-0.2); Bilirubin,Total 0.4 mg/dl (0.2-1.0); Calcium 8.7 mg/dl (8.5-10.1); Creatinine Clr Calc Pharmacy 75.9 ml/min; Est GFR (African American) 68.5 ml/min; Est GFR (Non-African American) 59.1 ml/min; Magnesium 1.9 mg/dl (1.7-2.4); Phosphorus 4.4 mg/dl (2.5-4.9); Potassium 3.7 mmol/L (3.5-5.1); Total Protein 6.5 gm/dl (6.0-8.3)
[2022-09-14 09:05] LABS: Partial Thromboplastin Ratio 1.8
[2022-09-14 09:27] LABS: Partial Thromboplastin Time 48.2 Seconds (21.0-31.0)
[2022-09-14] MEDS ORDERED: POTASSIUM CHLORIDE CRTAB 20 MEQ TABCR PO STA (09:34)
[2022-09-14 09:44] LABS: Vitamin B12 322 pg/ml (180-914)
[2022-09-14] MEDS: HEPARIN SODIUM/DEXTROSE 25,000 UNITS/500 ML BAG IV SCH (09:54)
[2022-09-14 12:32] LABS: Ferritin 67.7 ng/ml (8-388)
--- NOTE | 2022-09-14 13:23 | Cardiology Progress Note ---
Date of Service September 14, 2022 Assessment & Plan (1) Acute hypoxemic respiratory failure: (2) Frequent PVCs: Plan Patient is an acutely ill 57-year-old female who suffered a transient syncopal event then presented to the emergency room Significant EKG findings present with aberrant conduction frequent ventricular ectopy and accelerated junctional rhythm. Patient with hypoxia and hypokalemia Persistent hypoxia with O2 demands Echocardiogram demonstrates preserved LV systolic function, indirect evidence of pulmonary hypertension Chest x-ray with minimal increase in interstitial markings without pulmonary edema Impression and plan: 57-year-old female with acute hemodynamic decline, syncope uncertain etiology with associated hypoxia EKG demonstrated on presentation marked aberrancy possibly associated with electrolyte abnormalities. Initial findings without acute ischemia on repeat EKG and by echocardiogram. Laboratory studies pending Chest x-ray with mild vascular congestion but no pulmonary edema Prior hospitalization in April 2022 with hypoxic respiratory failure, acidosis with elevated troponin without evolution or acute ischemia We will follow along with patient as respiratory issues are better sorted Agree with chest CTA Ischemic heart disease not completely excluded 09/14/2022 Appreciate pulmonology input Multifactorial respiratory hypoxic failure including pulmonary embolus EKG and telemetry abnormalities appear to improve since oxygenation and hypokalemia improving Plan continue as already ordered Metoprolol succinate 25 mg twice per day. May ultimately need to reduce p.m. dosing slightly given nocturnal bradycardia Blood pressure appears controlled on dosing of amlodipine 10 mg/day Agree with furosemide and potassium Follow I's and O's closely Patient appropriately anticoagulated with heparin with long-term indications for anticoagulant therapy Admission and Anticipated Discharge Date Admission Date: September 13, 2022 Subjective Patient was seen and examined, chart, medications telemetry reviewed Patient drowsy but arousable. Still requiring significant oxygen supplementation. Feels restless and achy all over no specific cardiac complaints Telemetry reviewed with occasional ventricular ectopy no pauses or tacky or bradycardia arrhythmias of significance CTA chest consistent with bilateral subsegmental pulmonary emboli yesterday currently on anticoagulation. Review of Systems Review of Systems: All systems reviewed & are unremarkable except as noted in Subjective Physical Exam Constitutional: + obese Eyes: PERRL, conjunctivae normal, anicteric sclerae ENMT: external ear and nose normal, oropharynx normal Neck: trachea midline, no thyromegaly Respiratory: + audible wheezes (With forced cough) Auscultation: + crackles Cardiovascular: Rate/Rhythm: regular rate and regular rhythm Heart Sounds: no murmur Vessels: no JVD Extremities: + edema (Trace) Musculoskeletal: no cyanosis or clubbing, extremities motor strength 5/5 Skin: no rashes, warm and dry Neurologic: PERRL, EOMI, accommodation nl, no face palsy, no dysarthria Results & Data ([facility]) Vital Signs (Past 12 Hours) Vital Signs Temp Pulse Pulse Resp BP BP Pulse Ox 09/14/22 12:00 78 18 86 L 09/14/22 12:00 127/78 09/14/22 11:14 62 16 92 09/14/22 11:14 127/71 09/14/22 11:00 56 L 16 91 09/14/22 11:00 110/68 09/14/22 10:02 128/67 09/14/22 10:02 59 L 15 91 09/14/22 10:00 62 21 91 09/14/22 09:00 57 L 16 93 09/14/22 09:00 105/72 09/14/22 08:01 118/66 09/14/22 08:01 83 25 H 85 L 09/14/22 08:00 74 25 H 90 09/14/22 07:04 146/65 H 09/14/22 07:04 70 20 94 09/14/22 07:00 75 25 H 90 09/14/22 06:00 62 13 91 09/14/22 06:00 104/46 L 09/14/22 05:00 59 L 15 90 09/14/22 05:00 125/69 09/14/22 04:00 59 L 17 92 09/14/22 04:00 125/70 09/14/22 03:00 60 16 90 09/14/22 03:00 111/68 09/14/22 02:00 64 22 95 09/14/22 02:00 128/68 09/14/22 11:58 37.2 C 82 23 121/77 88 L 09/14/22 11:27 36.7 C 75 18 127/71 92 09/14/22 11:12 90 09/14/22 11:11 36.8 C 61 16 110/68 90 09/14/22 08:00 56 L 09/14/22 08:00 09/14/22 09:00 36.9 C 55 L 16 105/72 92 09/14/22 09:07 94 09/14/22 07:00 94 09/14/22 07:00 09/14/22 08:22 37.0 C 82 22 118/66 86 L 09/14/22 07:20 37.2 C 70 24 146/65 H 94 Pulse Ox O2 Del Method O2 Del Method O2 Flow Rate O2 Flow Rate 09/14/22 12:00 09/14/22 12:00 09/14/22 11:14 09/14/22 11:14 09/14/22 11:00 09/14/22 11:00 09/14/22 10:02 09/14/22 10:02 09/14/22 10:00 09/14/22 09:00 09/14/22 09:00 09/14/22 08:01 09/14/22 08:01 09/14/22 08:00 09/14/22 07:04 09/14/22 07:04 09/14/22 07:00 09/14/22 06:00 09/14/22 06:00 09/14/22 05:00 09/14/22 05:00 09/14/22 04:00 09/14/22 04:00 09/14/22 03:00 09/14/22 03:00 09/14/22 02:00 09/14/22 02:00 09/14/22 11:58 Nasal Cannula 4 09/14/22 11:27 Nasal Cannula 4 09/14/22 11:12 Oxymask 5 09/14/22 11:11 Oxymask 4 09/14/22 08:00 09/14/22 08:00 Oxymask 6 09/14/22 09:00 Oxymask 5 09/14/22 09:07 Oxymask 6 09/14/22 07:00 Oxymask 8 09/14/22 07:00 92 Oxymask 10 09/14/22 08:22 Oxymask 09/14/22 07:20 Oxymask 8 Laboratory Results Laboratory Results - last 24 hr 09/13/22 09/14/22 09/14/22 13:00 01:05 01:05 WBC 6.19 RBC 3.16 L Hgb 10.4 L Hct 31.4 L MCV 99.4 MCH 32.9 MCHC 33.1 RDW Std Deviation 53.1 H RDW Coeff of Cee 14.6 H Plt Count 98 L MPV 10.4 Absolute Nucleated RBC 0.03 Nucleated RBC % (auto) 0.5 APTT 44.6 H PTT Ratio 1.6 Sodium 141 Potassium 3.4 L Chloride 99 Carbon Dioxide 35 H Anion Gap 7 BUN 8 Creatinine 0.91 Est Cr Clr Drug Dosing 88.4 Est GFR ( Amer) 82.3 Est GFR (Non-Af Amer) 71.0 BUN/Creatinine Ratio 8.8 L Glucose 93 Calcium 8.2 L Phosphorus Magnesium 2.0 Iron TIBC Unsaturated IBC Transferrin % Sat Ferritin Total Bilirubin Direct Bilirubin AST ALT Alkaline Phosphatase Total Protein Albumin Vitamin B12 Folate 09/14/22 09/14/22 09/14/22 07:50 07:50 07:50 WBC RBC Hgb Hct MCV MCH MCHC RDW Std Deviation RDW Coeff of Cee Plt Count MPV Absolute Nucleated RBC Nucleated RBC % (auto) APTT 48.2 H* PTT Ratio 1.8 Sodium 140 Potassium 3.7 Chloride 99 Carbon Dioxide 37 H Anion Gap 4 BUN 9 Creatinine 1.06 Est Cr Clr Drug Dosing 75.9 Est GFR ( Amer) 68.5 Est GFR (Non-Af Amer) 59.1 BUN/Creatinine Ratio 8.5 L Glucose 113 H Calcium 8.7 Phosphorus 4.4 D Magnesium 1.9 Iron 47 TIBC 357 Unsaturated IBC 310 Transferrin % Sat 13 L Ferritin 67.7 Total Bilirubin 0.4 Direct Bilirubin 0.1 AST 27 ALT 25 Alkaline Phosphatase 208 H Total Protein 6.5 Albumin 3.6 Vitamin B12 322 Folate > 22.30 09/14/22 08:58 WBC RBC Hgb Hct MCV MCH MCHC RDW Std Deviation RDW Coeff of Cee Plt Count MPV Absolute Nucleated RBC Nucleated RBC % (auto) APTT PTT Ratio Sodium Potassium Chloride Carbon Dioxide Anion Gap BUN Creatinine Est Cr Clr Drug Dosing Est GFR ( Amer) Est GFR (Non-Af Amer) BUN/Creatinine Ratio Glucose Calcium Phosphorus Magnesium Iron Cancelled TIBC Cancelled Unsaturated IBC Cancelled Transferrin % Sat Cancelled Ferritin Cancelled Total Bilirubin Direct Bilirubin AST ALT Alkaline Phosphatase Total Protein Albumin Vitamin B12 Folate ECG Additional Comments: EKG 09/14/2022 normal sinus rhythm with nonspecific ST ST flattening V3 through V6
--- NOTE | 2022-09-14 15:53 | Hospitalist Progress Note ---
Date of Service September 14, 2022 Assessment & Plan (1) Hypercapnic respiratory failure: (2) Acute hypoxemic respiratory failure: Plan 57-year-old lady with PMH of substance abuse, COPD, history of right lung nodule, HTN, GERD, methadone maintenance (x 17 years per pt), osteoarthritis, depression presented to the ED 09/13 with complaint of syncope. Per patient, she was sitting on a chair when she suddenly lost consciousness for about a second [witnessed, patient's friend was there] and her friend woke her up; and reports being aware of the surrounding and her friend immediately after waking up from LOC. Denies any fall or abnormal body movements. She is being managed for the following: Syncope: Electrolyte abnormality: Admitting potassium 2.7, magnesium 1.5, phosphorus 2.2. Alcohol abuse: Drinks 4 bottle of Smirnoff (8% alc) every day, reports drinking heavily since last 3 months. Patient came in with brief loss of consciousness, no fall or trauma, no abnormal limb activity, no confusion after recovery per patient. Syncope multifactorial, PE vs electrolytes abn vs cardiac arrhythmia vs hypoxia vs others Abnormal EKG at presentation, troponin minimally elevated at presentation is already downtrending and WNL. Echo with EF of 60 to 65%, borderline concentric LVH, flattened septum consistent with RV pressure overload, RVSP moderate to severe elevation at 50 to 60 mmHg, small patent reina ovale noted. Monitor replete electrolytes. AWSS protocol. Pt counselled against alcohol use. Cardiology on board, appreciate recommendation. C/w tele. Acute on chronic hypoxemic respiratory failure: likely 2/2 PE vs Pul HTN vs both vs other etiologies. Hypercarbic resp failure: Admitting ABG w/ elevated CO2. Pulm evaled, OP PSG indicated. Pulmonary embolism: per CTA chest Pul HTN: per echo. Patient was discharged in April last year on 2 L nasal cannula oxygen which patient reports has been using it and needed to crank up to 4 L in the last 2 days [employer]. Admitting CXR with no acute finding, admitting CTA chest with few segmental and subsegmental bilateral PE. No evidence of right heart strain. Trace pleural effusion and mild pulmonary edema. ECHO as above. Admitting ABG with PaO2 of 64. Admitting procal negative. WBC wnl. Currently on 5 L by oxygen mask. Pulmonology consulted, appreciate recommendation, OP PFT. PE detected in CTA chest, c/w heparin drip, eliquis cost will be 3 dollars per month. Chest pain: Patient reports getting on and off chest pain for the last 2 months, occasionally worsened by activity but no actual correlation with rest or activ ity per patient. Denies any abdominal pain. Could be cardiac origin vs GERD. Tele monitoring. Cardio on board. c/w PPI BID given her alcohol abuse history. Tobacco abuse: Patient stated smoking since age 15, currently smokes 4 cigarettes a day, has been cutting down since 3 months and has been on nicotine patch. Counselled on smoking cessation. Vaping: Patient reports that she has been vaping since last month. Counselled regarding vaping cessation. Constipation: Patient reports moving bowels every 3 to 4 days, likely secondary to methadone. Bowel regimen scheduled and as needed. Iron profile w/ low transferrin saturation and low normal b12 level, initiate iron and b12 supplement . Other chronic medical conditions: Hepatitis C, ongoing alcoholism: Mild elevation in liver function test. Counseled about alcohol cessation. Follow-up with GI for hepatitis C. COPD: Continue with home inhalers, no wheezing on exam. HTN, GERD, thrombocytopenia--- resume home meds as able DVT prophylaxis: Patient on heparin drip due to PE. Follow platelets closely. Full code Admission and Anticipated Discharge Date Admission Date: September 13, 2022 Subjective Patient seen and examined at bedside as a follow-up of syncope and hypoxemic respiratory failure. Patient was lying in bed, on 5 L oxygen via mask, NAD, needed ativan dose overnight for high CIWA score. Pt eating ok and had BM yesterday per RN. Patient reports occasional cough with clear to campos-colored sputum, reports improving chest pain and heartburn, denies any fever, denies any pain or burning while passing urine, reports chronic low back pain. Physical Exam Physical Exam: GENERAL: drowsy and oriented x3. NAD, on 5 L via OM. HEENT: No pallor, no icterus. Pupils equal, round and reactive to light. Oral mucosa moist. NECK: No JVD, no neck masses. HEART: S1 and S2 heard. Regular rate and rhythm. No murmur, no gallop. RESPIRATORY SYSTEM: Normal AP diameter. No accessory muscle use. No wheezing, b/b crackles. ABDOMEN: Soft, bowel sounds present, epigastrium - mild tenderness, no distention. CENTRAL NERVOUS SYSTEM: No facial droop. Speech is clear. Obeys simple commands. Moves extremities. EXTREMITIES: No edema, no erythema seen. Results & Data Results & Data ([facility]) Vital Signs (Past 12 Hours) Vital Signs Temp Pulse Pulse Resp BP BP Pulse Ox 09/14/22 15:32 36.7 C 58 L 13 118/74 92 09/14/22 15:02 65 19 93 09/14/22 15:02 133/53 L 09/14/22 15:00 73 16 87 L 09/14/22 14:00 54 L 13 94 09/14/22 14:00 120/68 09/14/22 13:00 56 L 13 92 09/14/22 13:00 106/66 09/14/22 12:26 106/60 09/14/22 12:26 60 14 91 09/14/22 13:00 36.9 C 55 L 14 120/68 94 09/14/22 12:00 78 18 86 L 09/14/22 12:00 127/78 09/14/22 11:14 62 16 92 09/14/22 11:14 127/71 09/14/22 11:00 56 L 16 91 09/14/22 11:00 110/68 09/14/22 10:02 128/67 09/14/22 10:02 59 L 15 91 09/14/22 10:00 62 21 91 09/14/22 09:00 57 L 16 93 09/14/22 09:00 105/72 09/14/22 08:01 118/66 09/14/22 08:01 83 25 H 85 L 09/14/22 08:00 74 25 H 90 09/14/22 07:04 146/65 H 09/14/22 07:04 70 20 94 09/14/22 07:00 75 25 H 90 09/14/22 06:00 62 13 91 09/14/22 06:00 104/46 L 09/14/22 05:00 59 L 15 90 09/14/22 05:00 125/69 09/14/22 04:00 59 L 17 92 09/14/22 04:00 125/70 09/14/22 11:58 37.2 C 82 23 121/77 88 L 09/14/22 11:27 36.7 C 75 18 127/71 92 09/14/22 11:12 90 09/14/22 11:11 36.8 C 61 16 110/68 90 09/14/22 08:00 56 L 09/14/22 08:00 09/14/22 09:00 36.9 C 55 L 16 105/72 92 09/14/22 09:07 94 09/14/22 07:00 94 09/14/22 07:00 09/14/22 08:22 37.0 C 82 22 118/66 86 L 09/14/22 07:20 37.2 C 70 24 146/65 H 94 Pulse Ox O2 Del Method O2 Del Method O2 Flow Rate O2 Flow Rate 09/14/22 15:32 Oxymask 4 09/14/22 15:02 09/14/22 15:02 09/14/22 15:00 09/14/22 14:00 09/14/22 14:00 09/14/22 13:00 09/14/22 13:00 09/14/22 12:26 09/14/22 12:26 09/14/22 13:00 Oxymask 4 09/14/22 12:00 09/14/22 12:00 09/14/22 11:14 09/14/22 11:14 09/14/22 11:00 09/14/22 11:00 09/14/22 10:02 09/14/22 10:02 09/14/22 10:00 09/14/22 09:00 09/14/22 09:00 09/14/22 08:01 09/14/22 08:01 09/14/22 08:00 09/14/22 07:04 09/14/22 07:04 09/14/22 07:00 09/14/22 06:00 09/14/22 06:00 09/14/22 05:00 09/14/22 05:00 09/14/22 04:00 09/14/22 04:00 09/14/22 11:58 Nasal Cannula 4 09/14/22 11:27 Nasal Cannula 4 09/14/22 11:12 Oxymask 5 09/14/22 11:11 Oxymask 4 09/14/22 08:00 09/14/22 08:00 Oxymask 6 09/14/22 09:00 Oxymask 5 09/14/22 09:07 Oxymask 6 09/14/22 07:00 Oxymask 8 09/14/22 07:00 92 Oxymask 10 09/14/22 08:22 Oxymask 09/14/22 07:20 Oxymask 8
--- NOTE | 2022-09-14 22:52 | Electrocardiogram Report ---
Test Reason : Blood Pressure : / mmHG Vent. Rate : 067 BPM Atrial Rate : 067 BPM P-R Int : 120 ms QRS Dur : 086 ms QT Int : 396 ms P-R-T Axes : 054 080 110 degrees QTc Int : 418 ms Normal sinus rhythm Nonspecific ST and T wave abnormality Abnormal ECG When compared with ECG of 13-SEP-2022 09:24, Premature ventricular complexes are no longer Present Confirmed by Fabian Meng ([id number]) on 09/14/2022 10:51:35 PM Referred By: REFERRED SELF Confirmed By:Sawyer Meng
[2022-09-15] MEDS: LORazepam 2 MG/1 ML VIAL IV PRN ×3 (01:40→12:42)
[2022-09-15] MEDS: ALBUT/IPRATROP 3MG/0.5MG NEB 3 ML VIAL NEB PRN ×2 (01:46→22:27)
[2022-09-15] MEDS: HEPARIN SODIUM/DEXTROSE 25,000 UNITS/500 ML BAG IV SCH ×2 (02:24→16:31)
[2022-09-15 05:45] LABS: Hematocrit (blood only) 34.4 % (37.0-47.0); Hemoglobin 11.3 g/dl (12.0-16.0); Mean Corpuscular Hemoglobin 32.9 pg (25.0-34.0); Mean Corpuscular Hgb Conc 32.8 g/dL (32.0-36.0); Mean Corpuscular Volume 100.3 fL (80.0-100.0); Mean Platelet Volume 10.3 fL (9.4-12.4); Platelet Count 118 K/uL (130-400); RDW Standard Deviation 51.8 fL (36.4-46.3); Red Blood Count 3.43 M/uL (4.20-5.40)
[2022-09-15 05:56] LABS: Calcium 8.9 mg/dl (8.5-10.1); Potassium 4.3 mmol/L (3.5-5.1)
[2022-09-15 06:02] LABS: BUN Creatinine Ratio 9.2 (10-20); Est GFR (African American) 58.9 ml/min; Est GFR (Non-African American) 50.8 ml/min
[2022-09-15 06:11] LABS: Partial Thromboplastin Ratio 1.8
[2022-09-15 07:08] LABS: Partial Thromboplastin Time 49.3 Seconds (21.0-31.0)
[2022-09-15] MEDS: UMECLIDINIUM/VILANTEROL 62.5/25MCG 7 PUFFS/INHALER INH SCH (08:24)
[2022-09-15] MEDS: POTASSIUM CHLORIDE CRTAB 20 MEQ TABCR PO SCH ×3 (08:25→20:33)
[2022-09-15] MEDS: PANTOprazole 40 MG TAB PO SCH ×2 (08:25→20:32)
[2022-09-15] MEDS: NICOTINE 14 MG/24 HR PATCH TD SCH (08:25)
[2022-09-15] MEDS: METOPROLOL SUCC 25MG EXT REL TAB PO SCH ×3 (08:25→20:41)
[2022-09-15] MEDS: DOCUSATE SODIUM 100 MG CAP PO SCH ×2 (08:25→20:31)
[2022-09-15] MEDS: CYANOCOBALAMIN (B-12) 100 MCG TABLET PO SCH (08:25)
[2022-09-15] MEDS: DOXYCYCLINE HYCLATE 100 MG CAP PO SCH ×2 (08:25→20:31)
[2022-09-15] MEDS: amLODIPine BESYLATE 5 MG TAB PO SCH (08:26)
[2022-09-15] MEDS: FERROUS GLUCONATE 324 MG TAB PO SCH (08:26)
[2022-09-15] MEDS: MAGNESIUM OXIDE 400 MG TAB PO SCH ×2 (08:26→20:30)
[2022-09-15] MEDS: DULoxetine HCL 30 MG CAP PO SCH (08:26)
[2022-09-15] MEDS: predniSONE 20 MG TAB PO SCH ×2 (08:27→20:33)
[2022-09-15] MEDS: FUROSEMIDE 20 MG TAB PO SCH (08:27)
--- NOTE | 2022-09-15 08:28 | XRay Report ---
XR chest 1V portable HISTORY: 57 years-old Female increasing O2 req acute hypoxia COMPARISON: Chest radiograph and CTA chest studies 09/13/2022 TECHNIQUE: AP view of the chest FINDINGS: Cardiomediastinal and hilar silhouettes are within normal limits. No pneumothorax, large pleural effu christin or overt pulmonary edema. Probable trace pleural effusions. Mild ill-defined left basilar airspa ce opacities. IMPRESSION: Asymmetric mild ill-defined left lung base opacities are suspicious for pneumonia. ACT 112: Negative or not required by law. The above report was generated using voice recognition software. It may contain grammatical, syntax o r spelling errors. Electronically signed by: Raman Le M.D. 09/15/2022 8:27 AM
[2022-09-15] MEDS: clonazePAM 0.5 MG TAB PO SCH ×2 (08:30→20:30)
[2022-09-15] MEDS: POLYETHYLENE (MIRALAX) 17 GM PACK PO SCH (08:30)
[2022-09-15] MEDS: METHADONE HCL 10 MG TAB PO SCH (08:31)
[2022-09-15] MEDS: FOLIC ACID 1 MG in SYRINGE 9.8 ML IV SCH (08:31)
[2022-09-15] MEDS: THIAMINE HCL 100 MG in SYRINGE 9 ML IV SCH (08:31)
--- NOTE | 2022-09-15 08:40 | Pulmonology Progress Note ---
Date of Service September 15, 2022 Assessment & Plan (1) Hypercapnic respiratory failure: (2) Acute hypoxemic respiratory failure: (3) Pulmonary hypertension: (4) COPD (chronic obstructive pulmonary disease): (5) Pulmonary embolism: Plan Impression: 57-year-old female presenting to the hospital with syncopal episode found to have elevated pulmonary arterial pressures on echocardiogram and hypoxemic respiratory failure. Her blood gas demonstrates chronic hypercarbic respiratory failure of unclear etiology. CT angiogram yesterday demonstrated small filling defects consistent with thromboembolic disease. The patient's been initiated on a heparin infusion Recommendations: 1. 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 Continue attempts to wean oxygen to maintain saturations at or around of 88%. Given her shunt physiology, it may be difficult to achieve oxygen saturations higher than this. 2. Hypercarbic respiratory failure: Unclear etiology. May have a component of overlap syndrome/sleep disordered breathing. Obesity hypoventilation would also be in the differential. She does not appear to manifest any neuromuscular we akness. As she is well compensated, do not think we need to institute noninvasive positive pressure ventilation currently during the day however will pursue trial of CPAP at night to see if we can improve her oxygenation. 3. Pulmonary hypertension: The patient could have several potential contrib uting processes. With prior history of substance abuse, Group 1 pulmonary hypertension is possible. Given her alcohol use, portal pulmonary hypertension would be in the differential if she has underlying cirrhosis. Her last echocardiogram demonstrated diastolic dysfunction so there may be a component of group 2 pulmonary hypertension. With COPD and hypercarbia, group 3 pulmonary hypertension would also be possible. She has evidence of acute PE. She is at risk for development of group 4 pulmonary hypertension and she may require a VQ scan in the outpatient setting for evaluation of chronic thromboembolic pulmonary hypertension. Ultimately, the patient will require referral to a tertiary pulmonary hypertension center of excellence for consideration of right and left heart catheterization. They will need to assess her left ventricular end-diastolic pressure as well as evaluate PA pressures and response to vasodilators. Would not institute pulmonary vasodilator medications at this point in time without that additional data. Diuretics are recommended to optimize volume status. Continue diuretics until BUN/creatinine bump 4. With the patient's extensive history of alcohol abuse, she may have a component of cirrhosis although that was not evident on the CT scan performed ba in April. Her synthetic function is preserved. May consider additional GI evaluation and did make recommendation for abstinence of alcohol. She appears to be withdrawing. She is been initiated on Ativan and gabapentin. Per primary service 5. Acute exacerbation of COPD: Smoking cessation recommended to the patient. Outpatient pulmonary function test recommended. Continue Anoro, DuoNebs, and doxycycline and prednisone 40 mg a day for acute exacerbation of COPD 6. The patient should have outpatient overnight attended polysomnography performed. She is not appropriate for home sleep testing. 7. Acute PE: Continue anticoagulation. Can likely transition to oral DOAC. Given her PFO and shunt physiology, can make a case for lifelong anticoagulation. No indication for thrombophilia work-up We will continue to follow with you. Above recommendations and plan were discussed with the patient as well as with the bedside nurse. Questions were answered to the best my ability. She expressed understanding and is in agreement with plan as outlined Admission and Anticipated Discharge Date Admission Date: September 13, 2022 Subjective Patient seen and examined. EMR reviewed. Discussed with nurse at bedside. The patient is stable to slightly improved from a respiratory standpoint. She did require escalation of oxygen overnight. This morning she thinks her breathing is about the same. She is coughing but not really expectorating any phlegm. She denies chest pain or palpitations. She continues to have tremors associated with alcohol withdrawal but these appear better compared to yesterday. Review of Systems Review of Systems: All systems reviewed & are unremarkable except as noted in Subjective Physical Exam Constitutional: WD/WN, vitals as above Neck: trachea midline, no thyromegaly Respiratory: normal respiratory effort, lungs clear to auscultation no respiratory distress, no labored breathing, no cough and not tachypneic Auscultation: + wheezes; no crackles Cardiovascular: RRR, no murmur, no edema Rate/Rhythm: not tachycardic Heart Sounds: normal S1 and normal S2; no murmur Palpation: no heave Extremities: no edema Gastrointestinal (Abdomen): normal bowel sounds, soft, nontender, no hepatosplenomegaly Musculoskeletal: Extremities: extremities normal to inspection Skin: no rashes, warm and dry Lymphatic: no cervical lymphadenopathy Results & Data Results & Data ([facility]) Vital Signs (Past 12 Hours) Vital Signs Temp Pulse Pulse Resp BP BP Pulse Ox 09/15/22 07:39 116/62 09/15/22 07:30 55 L 17 90 09/15/22 07:46 09/15/22 07:46 36.6 C 09/15/22 03:32 36.6 C 54 L 14 114/66 92 09/15/22 01:46 68 26 H 87 L 09/15/22 00:15 90 09/15/22 00:00 56 L 19 85 L 09/15/22 00:00 120/73 09/14/22 22:01 116/64 09/14/22 22:00 60 14 88 L 09/14/22 21:00 124/65 09/14/22 21:00 58 L 16 88 L 09/15/22 00:00 36.9 C 09/14/22 22:53 52 L O2 Del Method O2 Flow Rate 09/15/22 07:39 09/15/22 07:30 Oxymask 10 09/15/22 07:46 Oxymask 10 09/15/22 07:46 09/15/22 03:32 Oxymask 10 09/15/22 01:46 Oxymask 12 09/15/22 00:15 Oxymask 12 09/15/22 00:00 Oxymask 8 09/15/22 00:00 09/14/22 22:01 09/14/22 22:00 09/14/22 21:00 09/14/22 21:00 09/15/22 00:00 09/14/22 22:53 Laboratory Results 09/15/22 05:36 09/15/22 05:36 Diagnostic Findings No new imaging PG Care Time/CCT Total # of Minutes Spent Total Time Spent with Patient: Total time spent is greater than 50% in coordination of care (as documented) at patient's floor/unit and/or counseling patient: Coding Level of Care Code 79737 SUB INP/OBS CARE 2/35MIN Diagnoses Hypercapnic respiratory failure J96.92 Acute hypoxemic respiratory failure J96.01 Pulmonary hypertension I27.20 COPD (chronic obstructive pulmonary disease) J44.9 Pulmonary embolism I26.99
[2022-09-15] MEDS ORDERED: cefTRIAXone SODIUM 2,000 MG in DEXTROSE 5% 50 ML IV SCH (09:30)
[2022-09-15] MEDS: FUROSEMIDE 40 MG TAB PO SCH (10:00)
[2022-09-15] MEDS: AMPICILLIN/SULBACTAM SOD 3,000 MG in 0.9 % SODIUM CHLORIDE 100 ML IV SCH ×3 (10:01→20:31)
[2022-09-15] MEDS: GABAPENTIN 600 MG TAB PO SCH ×2 (10:01→20:35)
--- NOTE | 2022-09-15 11:28 | Electrocardiogram Report ---
Test Reason : Blood Pressure : / mmHG Vent. Rate : 076 BPM Atrial Rate : 075 BPM P-R Int : 120 ms QRS Dur : 080 ms QT Int : 440 ms P-R-T Axes : 074 085 114 degrees QTc Int : 495 ms Poor data quality, interpretation may be adversely affected Normal sinus rhythm Nonspecific ST and T wave abnormality Abnormal ECG When compared with ECG of 14-SEP-2022 06:25, No significant change was found Confirmed by Kieran Altman ([id number]) on 09/15/2022 11:28:15 AM Referred By: REFERRED SELF Confirmed By:Kieran Altman
[2022-09-15 12:38] LABS: Methadone, Ur Metabolite 3250 ng/mL (<100)
--- NOTE | 2022-09-15 16:01 | Hospitalist Progress Note ---
Date of Service September 15, 2022 Assessment & Plan (1) Hypercapnic respiratory failure: (2) Acute hypoxemic respiratory failure: Plan 57-year-old lady with PMH of substance abuse, COPD, history of right lung nodule, HTN, GERD, methadone maintenance (x 17 years per pt), osteoarthritis, depression presented to the ED 09/13 with complaint of syncope. Per patient, she was sitting on a chair when she suddenly lost consciousness for about a second [witnessed, patient's friend was there] and her friend woke her up; and reports being aware of the surrounding and her friend immediately after waking up from LOC. Denies any fall or abnormal body movements. She is being managed for the following: Syncope: Electrolyte abnormality: Admitting potassium 2.7, magnesium 1.5, phosphorus 2.2. Alcohol abuse: Drinks 4 bottle of Smirnoff (8% alc) every day, reports drinking heavily since last 3 months. Patient came in with brief loss of consciousness, no fall or trauma, no abnormal limb activity, no confusion after recovery per patient. Syncope multifactorial, PE vs electrolytes abn vs cardiac arrhythmia vs hypoxia vs others Abnormal EKG at presentation, troponin minimally elevated at presentation is already downtrending and WNL. Echo with EF of 60 to 65%, borderline concentric LVH, flattened septum consistent with RV pressure overload, RVSP moderate to severe elevation at 50 to 60 mmHg, small patent reina ovale noted. Monitor replete electrolytes. AWSS protocol. Pt counselled against alcohol use. Cardiology on board, appreciate recommendation. C/w tele. Acute on chronic hypoxemic respiratory failure: likely 2/2 PE vs Pul HTN vs both vs other etiologies. Hypercarbic resp failure: Admitting ABG w/ elevated CO2. Pulm evaled, OP PSG indicated. Pulmonary embolism: per CTA chest Pul HTN: per echo. Possible Pneumonia: on unasyn 09/15 and on doxy. 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 Admitting CXR with no acute finding, admitting CTA chest with few segmental and subsegmental bilateral PE. No evidence of right heart strain. Trace pleural effusion and mild pulmonary edema. ECHO as above. Admitting ABG with PaO2 of 64. Admitting procal negative. WBC wnl. Currently on 7 L by oxygen mask. Pulmonology consulted, appreciate recommendation, OP PFT. PE detected in CTA chest, c/w heparin drip, eliquis cost will be 3 dollars per month. Pt agreeable. Chest pain: Patient reports getting on and off chest pain for the last 2 months, occasionally worsened by activity but no actual correlation with rest or activity per patient. Denies any abdominal pain. Could be cardiac origin vs GERD. Tele monitoring. Cardio on board. c/w PPI BID given her alcohol abuse history. Tobacco abuse: Patient stated smoking since age 15, currently smokes 4 cigarettes a day, has been cutting down since 3 months and has been on nicotine patch. Counselled on smoking cessation. Vaping: Patient reports that she has been vaping since last month. Counselled regarding vaping cessation. Constipation: Patient reports moving bowels every 3 to 4 days, likely secondary to methadone. Bowel regimen scheduled and as needed. Iron profile w/ low transferrin saturation and low normal b12 level, initiate iron and b12 supplement . Other chronic medical conditions: Hepatitis C, ongoing alcoholism: Mild elevation in liver function test. Counseled about alcohol cessation. Follow-up with GI for hepatitis C. COPD: Continue with home inhalers, no wheezing on exam. HTN, GERD, thrombocytopenia--- resume home meds as able DVT prophylaxis: Patient on heparin drip due to PE. Follow platelets closely. Full code Admission and Anticipated Discharge Date Admission Date: September 13, 2022 Subjective Patient seen and examined at bedside as a follow-up of syncope and hypoxemic respiratory failure. Patient was lying in bed, on 7 L oxygen via mask, NAD, needed ativan dose overnight for high CIWA score. Pt eating ok and had BM 2 d ago. Patient reports occasional cough with clear to campos-colored sputum, denies chest pain and heartburn, denies any fever, denies any pain or burning while passing urine, reports chronic low back pain. Overnight, patient desaturated while asleep, need 10L O2 which could be weaned down to 6-7L in AM when awake, bnp downtrending, procal negative. likely could be sleep apnea component, will need CPAP and OP sleed study. Physical Exam Physical Exam: GENERAL: drowsy and oriented x3. NAD, on 7 L via OM. HEENT: No pallor, no icterus. Pupils equal, round and reactive to light. Oral mucosa moist. NECK: No JVD, no neck masses. HEART: S1 and S2 heard. Regular rate and rhythm. No murmur, no gallop. RESPIRATORY SYSTEM: Normal AP diameter. No accessory muscle use. No wheezing, b/b crackles L>R. ABDOMEN: Soft, bowel sounds present, epigastrium - mild tenderness, no distention. CENTRAL NERVOUS SYSTEM: No facial droop. Speech is clear. Obeys simple commands. Moves extremities. EXTREMITIES: No edema, no erythema seen. Results & Data Results & Data ([facility]) Vital Signs (Past 12 Hours) Vital Signs Temp Pulse Resp BP Pulse Ox Pulse Ox O2 Del Method 09/15/22 10:01 55 L 15 91 Oxymask 09/15/22 10:01 137/64 09/15/22 10:00 56 L 15 90 09/15/22 09:02 78 21 88 L 09/15/22 09:02 119/82 09/15/22 09:00 73 19 09/15/22 08:34 110/71 09/15/22 08:34 60 13 91 09/15/22 08:00 22 92 09/15/22 08:00 97/61 L 09/15/22 07:00 62 09/15/22 07:00 92 09/15/22 07:39 116/62 09/15/22 07:30 55 L 17 90 Oxymask 09/15/22 07:46 Oxymask 09/15/22 07:46 36.6 C O2 Del Method O2 Flow Rate O2 Flow Rate 09/15/22 10:01 7 09/15/22 10:01 09/15/22 10:00 09/15/22 09:02 09/15/22 09:02 09/15/22 09:00 09/15/22 08:34 09/15/22 08:34 09/15/22 08:00 09/15/22 08:00 09/15/22 07:00 09/15/22 07:00 Oxymask 10 09/15/22 07:39 09/15/22 07:30 10 09/15/22 07:46 10 09/15/22 07:46
[2022-09-16] MEDS: LORazepam 2 MG/1 ML VIAL IV PRN ×6 (00:53→21:50)
[2022-09-16] MEDS: AMPICILLIN/SULBACTAM SOD 3,000 MG in 0.9 % SODIUM CHLORIDE 100 ML IV SCH ×4 (03:43→21:40)
[2022-09-16 07:50] LABS: Hematocrit (blood only) 32.6 % (37.0-47.0); Hemoglobin 10.6 g/dl (12.0-16.0); Mean Corpuscular Hemoglobin 32.5 pg (25.0-34.0); Mean Corpuscular Hgb Conc 32.5 g/dL (32.0-36.0); Mean Platelet Volume 10.4 fL (9.4-12.4); Platelet Count 133 K/uL (130-400); RDW Coefficient of Variation 13.9 % (11.5-14.5); RDW Standard Deviation 51.7 fL (36.4-46.3); Red Blood Count 3.26 M/uL (4.20-5.40)
[2022-09-16 07:58] LABS: BUN Creatinine Ratio 12.3 (10-20); Calcium 8.9 mg/dl (8.5-10.1); Creatinine Clr Calc Pharmacy 77.3 ml/min; Est GFR (African American) 68.5 ml/min; Est GFR (Non-African American) 59.1 ml/min; Magnesium 2.1 mg/dl (1.7-2.4); Phosphorus 4.5 mg/dl (2.5-4.9); Potassium 4.7 mmol/L (3.5-5.1)
[2022-09-16] MEDS: THIAMINE HCL 100 MG in SYRINGE 9 ML IV SCH (08:04)
[2022-09-16] MEDS: FOLIC ACID 1 MG in SYRINGE 9.8 ML IV SCH (08:04)
[2022-09-16] MEDS: MAGNESIUM OXIDE 400 MG TAB PO SCH ×2 (08:06→19:16)
[2022-09-16] MEDS: METOPROLOL SUCC 25MG EXT REL TAB PO SCH ×2 (08:13→21:34)
[2022-09-16 08:21] LABS: Partial Thromboplastin Ratio 1.9
[2022-09-16 08:36] LABS: Partial Thromboplastin Time 51.8 Seconds (21.0-31.0)
[2022-09-16] MEDS: NICOTINE 14 MG/24 HR PATCH TD SCH (08:55)
[2022-09-16] MEDS: predniSONE 20 MG TAB PO SCH ×2 (08:57→21:33)
[2022-09-16] MEDS: PANTOprazole 40 MG TAB PO SCH ×2 (08:57→21:34)
[2022-09-16] MEDS: POTASSIUM CHLORIDE CRTAB 20 MEQ TABCR PO SCH ×3 (08:57→21:40)
[2022-09-16] MEDS: DULoxetine HCL 30 MG CAP PO SCH (08:57)
[2022-09-16] MEDS: FERROUS GLUCONATE 324 MG TAB PO SCH ×2 (08:58→10:42)
[2022-09-16] MEDS: DOCUSATE SODIUM 100 MG CAP PO SCH ×2 (08:58→21:40)
[2022-09-16] MEDS: FUROSEMIDE 40 MG TAB PO SCH (08:58)
[2022-09-16] MEDS: CYANOCOBALAMIN (B-12) 100 MCG TABLET PO SCH (08:58)
[2022-09-16] MEDS: UMECLIDINIUM/VILANTEROL 62.5/25MCG 7 PUFFS/INHALER INH SCH (08:59)
[2022-09-16] MEDS: clonazePAM 0.5 MG TAB PO SCH ×2 (09:17→21:33)
[2022-09-16] MEDS: METHADONE HCL 10 MG TAB PO SCH (09:25)
--- NOTE | 2022-09-16 09:30 | Pulmonology Progress Note ---
Date of Service September 16, 2022 Assessment & Plan (1) Hypercapnic respiratory failure: (2) Acute hypoxemic respiratory failure: (3) Pulmonary hypertension: (4) COPD (chronic obstructive pulmonary disease): (5) Pulmonary embolism: Plan Impression: 57-year-old female presenting to the hospital with syncopal episode found to have elevated pulmonary arterial pressures on echocardiogram and hypoxemic respiratory failure. Her blood gas demonstrates chronic hypercarbic respiratory failure of unclear etiology. CT angiogram demonstrated small filling defects consistent with thromboembolic disease. Patient is being treated for an acute exacerbation of COPD Recommendations: 1. 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 Continue attempts to wean oxygen to maintain saturations at or around of 88%. Given her shunt physiology, it may be difficult to achieve oxygen saturations higher than this. 2. Hypercarbic respiratory failure: Unclear etiology. May have a component of overlap syndrome/sleep disordered breathing. Obesity hypoventilation would also be in the differential. She does not appear to manifest any neuromuscular weak ness. As she is well compensated, do not think we need to institute noninvasive positive pressure ventilation currently during the day however will pursue trial of CPAP at night to see if we can improve her oxygenation. Outpatient polysomnography recommended 3. Pulmonary hypertension: The patient could have several potential contributing processes. With prior history of substance abuse, Group 1 pulmonary hypertension is possible. Given her alcohol use, portal pulmonary hypertension would be in the differential if she has underlying cirrhosis. Her last echocardiogram demonstrated diastolic dysfunction so there may be a component of group 2 pulmonary hypertension. With COPD and hypercarbia, group 3 pulmonary hypertension would also be possible. She has evidence of acute PE. She is at risk for development of group 4 pulmonary hypertension and she may require a VQ scan in the outpatient setting for evaluation of chronic thromboembolic pulmonary hypertension. Ultimately, the patient will require referral to a tertiary pulmonary hypertension center of excellence for consideration of right and left heart catheterization. They will need to assess her left ventricular end-diastolic pressure as well as evaluate PA pressures and response to vasodilators. Would not institute pulmonary vasodilator medications at this point in time without that additional data. Diuretics are recommended to optimize volume status. Continue diuretics until BUN/creatinine bump 4. With the patient's extensive history of alcohol abuse, she may have a component of cirrhosis although that was not evident on the CT scan performed back in April. Her synthetic function is preserved. May consider additional GI evaluation and did make recommendation for abstinence of alcohol. Acute alcohol withdrawal per primary service 5. Acute exacerbation of COPD: Smoking cessation recommended to the patient. Outpatient pulmonary function test recommended. Continue Anoro, DuoNebs, and doxycycline and prednisone 40 mg a day for acute exacerbation of COPD. She appears to be improving 6. The patient should have outpatient overnight attended polysomnography performed. She is not appropriate for home sleep testing. 7. Acute PE: Continue anticoagulation. Can likely transition to oral DOAC. Given her PFO and shunt physiology, can make a case for lifelong anticoagulation. No indication for thrombophilia work-up Patient appears to be making clinical progress. When she stable from her alcohol withdrawal she will require increased mobilization including out of bed to chair and ambulation. We will need to assess her oxygen requirements again prior to going home Above recommendations and plan were discussed with the patient as well as with the bedside nurse. Questions were answered to the best my ability. She expressed understanding and is in agreement with plan as outlined Admission and Anticipated Discharge Date Admission Date: September 13, 2022 Subjective Patient seen and examined. EMR reviewed. The patient reports that her breathing is stable. She continues to have some shakes but these are also improved. She is not coughing or expectorating phlegm. Her oxygen requirement has been weaned down. Review of Systems Review of Systems: All systems reviewed & are unremarkable except as noted in Subjective Physical Exam Constitutional: WD/WN, vitals as above Neck: trachea midline, no thyromegaly Respiratory: normal respiratory effort, lungs clear to auscultation no respiratory distress, no labored breathing, no cough and not tachypneic Auscultation: + wheezes; no crackles Cardiovascular: RRR, no murmur, no edema Rate/Rhythm: not tachycardic Heart Sounds: normal S1 and normal S2; no murmur Palpation: no heave Extremities: no edema Gastrointestinal (Abdomen): normal bowel sounds, soft, nontender, no hepatosplenomegaly Musculoskeletal: Extremities: extremities normal to inspection Skin: no rashes, warm and dry Lymphatic: no cervical lymphadenopathy Results & Data Results & Data ([facility]) Vital Signs (Past 12 Hours) Vital Signs Temp Pulse Pulse Resp BP Pulse Ox O2 Del Method 09/16/22 07:46 36.9 C 62 19 96/59 L 94 Nasal Cannula 09/16/22 04:19 36.7 C 64 18 131/71 90 Nasal Cannula 09/16/22 02:00 36.7 C 52 L 18 118/71 90 Nasal Cannula 09/15/22 22:01 53 L 09/15/22 22:53 36.8 C 54 L 18 109/70 95 Nasal Cannula 09/15/22 21:24 55 L 09/15/22 22:28 22 89 L Nasal Cannula 09/15/22 22:10 O2 Flow Rate 09/16/22 07:46 6.0 09/16/22 04:19 6 09/16/22 02:00 6 09/15/22 22:01 09/15/22 22:53 6 09/15/22 21:24 09/15/22 22:28 6 09/15/22 22:10 6 Laboratory Results 09/16/22 07:14 09/16/22 07:14 Diagnostic Findings No new imaging PG Care Time/CCT Total # of Minutes Spent Total Time Spent with Patient: Total time spent is greater than 50% in coordination of care (as documented) at patient's floor/unit and/or counseling patient: Coding Level of Care Code 60701 SUB INP/OBS CARE 2/35MIN Diagnoses Hypercapnic respiratory failure J96.92 Acute hypoxemic respiratory failure J96.01 Pulmonary hypertension I27.20 COPD (chronic obstructive pulmonary disease) J44.9 Pulmonary embolism I26.99
[2022-09-16] MEDS: amLODIPine BESYLATE 5 MG TAB PO SCH (09:32)
[2022-09-16] MEDS: POLYETHYLENE (MIRALAX) 17 GM PACK PO SCH (09:37)
[2022-09-16] MEDS: APIXABAN 5 MG TABLET PO SCH ×2 (10:42→21:37)
[2022-09-16] MEDS: DOXYCYCLINE HYCLATE 100 MG CAP PO SCH ×2 (10:42→21:34)
--- NOTE | 2022-09-16 16:39 | Hospitalist Progress Note ---
Date of Service September 16, 2022 Assessment & Plan (1) Hypercapnic respiratory failure: (2) Acute hypoxemic respiratory failure: Plan 57-year-old lady with PMH of substance abuse, COPD, history of right lung nodule, HTN, GERD, methadone maintenance (x 17 years per pt), osteoarthritis, depression presented to the ED 09/13 with complaint of syncope. Per patient, she was sitting on a chair when she suddenly lost consciousness for about a second [witnessed, patient's friend was there] and her friend woke her up; and reports being aware of the surrounding and her friend immediately after waking up from LOC. Denies any fall or abnormal body movements. She is being managed for the following: Syncope: Electrolyte abnormality: Admitting potassium 2.7, magnesium 1.5, phosphorus 2.2. Alcohol abuse: Drinks 4 bottle of Smirnoff (8% alc) every day, reports drinking heavily since last 3 months. Patient came in with brief loss of consciousness, no fall or trauma, no abnormal limb activity, no confusion after recovery per patient. Syncope multifactorial, PE vs electrolytes abn vs cardiac arrhythmia vs hypoxia vs others Abnormal EKG at presentation, troponin minimally elevated at presentation is already downtrending and WNL. Echo with EF of 60 to 65%, borderline concentric LVH, flattened septum consistent with RV pressure overload, RVSP moderate to severe elevation at 50 to 60 mmHg, small patent reina ovale noted. Monitor replete electrolytes. AWSS protocol. Pt counselled against alcohol use. Cardiology on board, appreciate recommendation. C/w tele. Acute on chronic hypoxemic respiratory failure: likely 2/2 PE vs Pul HTN vs both vs other etiologies. Hypercarbic resp failure: Admitting ABG w/ elevated CO2. Pulm evaled, OP PSG indicated. Pulmonary embolism: per CTA chest Pul HTN: per echo. V/Q scan as OP for CTEPH eval. F/u Pul HTN center for Rt & Lt heart cath for Pul HTN eval. c/w diuresis. related KCL supplement. Possible Pneumonia: on unasyn 09/15 and on doxy. AE COPD: doxy, nebs, prednisone. 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 Admitting CXR with no acute finding, admitting CTA chest with few segmental and subsegmental bilateral PE. No evidence of right heart strain. Trace pleural effusion and mild pulmonary edema. ECHO as above. Admitting ABG with PaO2 of 64. Admitting procal negative. WBC wnl. Currently on 5L by HI Pulmonology consulted, appreciate recommendation, OP PFT. 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 Denies any abdominal pain. Could be cardiac origin vs GERD. Tele monitoring. Cardio on board. c/w PPI BID given her alcohol abuse history. Tobacco abuse: Patient stated smoking since age 15, currently smokes 4 cigarettes a day, has been cutting down since 3 months and has been on nicotine patch. Counselled on smoking cessation. Vaping: Patient reports that she has been vaping since last month. Counselled regarding vaping cessation. Constipation: Patient reports moving bowels every 3 to 4 days, likely secondary to methadone. Bowel regimen scheduled and as needed. Iron profile w/ low transferrin saturation and low normal b12 level, initiated iron and b12 supplement . Other chronic medical conditions: Hepatitis C, ongoing alcoholism: Mild elevation in liver function test. Counseled about alcohol cessation. Follow-up with GI for hepatitis C. COPD: Continue with home inhalers, no wheezing on exam. HTN, GERD, thrombocytopenia--- resume home meds as able DVT prophylaxis: eliquis Full code Admission and Anticipated Discharge Date Admission Date: September 13, 2022 Subjective Patient seen and examined at bedside as a follow-up of syncope and hypoxemic respiratory failure. Patient was lying in bed, on 5 L oxygen via mask, NAD, needed ativan doses overnight for high CIWA score. Pt eating ok per RN. Pt drowsy, answered orientation questions but couldn't get further ROS, does not appear to be in pain or distress. Physical Exam Physical Exam: GENERAL: drowsy and oriented x3. NAD, on 5 L via NC HEENT: No pallor, no icterus. Pupils equal, round and reactive to light. Oral mucosa moist. NECK: No JVD, no neck masses. HEART: S1 and S2 heard. Regular rate and rhythm. No murmur, no gallop. RESPIRATORY SYSTEM: Normal AP diameter. No accessory muscle use. occ wheezing, b/b crackles L>R. ABDOMEN: Soft, bowel sounds present, epigastrium - mild tenderness, no distention. CENTRAL NERVOUS SYSTEM: No facial droop. Speech is clear. Obeys simple commands. Moves extremities. EXTREMITIES: No edema, no erythema seen. Results & Data Results & Data ([facility]) Vital Signs (Past 12 Hours) Vital Signs Temp Pulse Resp BP Pulse Ox O2 Del Method O2 Flow Rate 09/16/22 15:00 56 L 19 128/68 93 Nasal Cannula 6.0 09/16/22 13:00 36.4 C L 52 L 16 130/73 93 Nasal Cannula 6 09/16/22 08:00 Nasal Cannula 6 09/16/22 10:51 36.7 C 53 L 16 143/75 H 92 Nasal Cannula 6 09/16/22 09:00 36.9 C 55 L 18 110/68 91 Nasal Cannula 6 09/16/22 07:46 36.9 C 62 19 96/59 L 94 Nasal Cannula 6.0
[2022-09-16] MEDS ORDERED: GABAPENTIN 600 MG TAB PO SCH (22:00)
[2022-09-17] MEDS: LORazepam 2 MG/1 ML VIAL IV PRN (02:10)
[2022-09-17] MEDS: AMPICILLIN/SULBACTAM SOD 3,000 MG in 0.9 % SODIUM CHLORIDE 100 ML IV SCH ×4 (04:20→21:01)
[2022-09-17] MEDS: MAGNESIUM OXIDE 400 MG TAB PO SCH (08:25)
[2022-09-17] MEDS: CYANOCOBALAMIN (B-12) 100 MCG TABLET PO SCH (08:25)
[2022-09-17] MEDS: DULoxetine HCL 30 MG CAP PO SCH (08:25)
[2022-09-17] MEDS: FERROUS GLUCONATE 324 MG TAB PO SCH (08:26)
[2022-09-17] MEDS: METOPROLOL SUCC 25MG EXT REL TAB PO SCH ×2 (08:26→20:58)
[2022-09-17] MEDS: UMECLIDINIUM/VILANTEROL 62.5/25MCG 7 PUFFS/INHALER INH SCH (08:27)
[2022-09-17] MEDS: FUROSEMIDE 40 MG TAB PO SCH (08:27)
[2022-09-17] MEDS: amLODIPine BESYLATE 5 MG TAB PO SCH (08:27)
[2022-09-17] MEDS: APIXABAN 5 MG TABLET PO SCH ×2 (08:27→20:58)
[2022-09-17] MEDS: NICOTINE 14 MG/24 HR PATCH TD SCH (08:28)
[2022-09-17] MEDS: PANTOprazole 40 MG TAB PO SCH ×2 (08:28→20:58)
[2022-09-17] MEDS: predniSONE 20 MG TAB PO SCH ×2 (08:28→20:58)
[2022-09-17] MEDS: FOLIC ACID 1 MG in SYRINGE 9.8 ML IV SCH (08:29)
[2022-09-17] MEDS: THIAMINE HCL 100 MG in SYRINGE 9 ML IV SCH (08:29)
[2022-09-17 08:38] LABS: Hematocrit (blood only) 34.4 % (37.0-47.0); Hemoglobin 11.1 g/dl (12.0-16.0); Mean Corpuscular Hemoglobin 32.7 pg (25.0-34.0); Mean Corpuscular Hgb Conc 32.3 g/dL (32.0-36.0); Mean Corpuscular Volume 101.5 fL (80.0-100.0); Mean Platelet Volume 10.1 fL (9.4-12.4); Platelet Count 179 K/uL (130-400); RDW Coefficient of Variation 14.5 % (11.5-14.5); RDW Standard Deviation 54.4 fL (36.4-46.3); Red Blood Count 3.39 M/uL (4.20-5.40); White Blood Count 8.62 K/ul (4.8-10.8)
[2022-09-17] MEDS: DOCUSATE SODIUM 100 MG CAP PO SCH ×2 (08:40→20:57)
[2022-09-17] MEDS: POLYETHYLENE (MIRALAX) 17 GM PACK PO SCH (08:40)
[2022-09-17] MEDS: POTASSIUM CHLORIDE CRTAB 20 MEQ TABCR PO SCH (08:40)
[2022-09-17] MEDS: clonazePAM 0.5 MG TAB PO SCH ×2 (08:40→20:57)
[2022-09-17] MEDS: METHADONE HCL 10 MG TAB PO SCH (08:41)
[2022-09-17 08:54] LABS: BUN Creatinine Ratio 15.4 (10-20); Calcium 9.2 mg/dl (8.5-10.1); Creatinine Clr Calc Pharmacy 70.1 ml/min; Est GFR (African American) 60.8 ml/min; Est GFR (Non-African American) 52.4 ml/min; Magnesium 2.1 mg/dl (1.7-2.4); Potassium 5.3 mmol/L (3.5-5.1)
[2022-09-17] MEDS: ALBUT/IPRATROP 3MG/0.5MG NEB 3 ML VIAL NEB PRN (08:58)
[2022-09-17] MEDS: DOXYCYCLINE HYCLATE 100 MG CAP PO SCH ×2 (10:39→20:57)
--- NOTE | 2022-09-17 10:39 | Pulmonology Progress Note ---
Date of Service September 17, 2022 Assessment & Plan (1) Hypercapnic respiratory failure: (2) Acute hypoxemic respiratory failure: (3) Pulmonary hypertension: (4) COPD (chronic obstructive pulmonary disease): (5) Pulmonary embolism: Plan Impression: 57-year-old female presenting to the hospital with syncopal episode found to have elevated pulmonary arterial pressures on echocardiogram and hypoxemic respiratory failure. Her blood gas demonstrates chronic hypercarbic respiratory failure of unclear etiology. CT angiogram demonstrated small filling defects consistent with thromboembolic disease. Patient is being treated for an acute exacerbation of COPD Recommendations: 1. Hypoxemic respiratory failure: Multifactorial due to PE, hypercarbia, shunt physiology due to PFO as well as components of intrapulmonary shunt. Continue attempts to wean oxygen to maintain saturations at or around of 88%. Given her shunt physiology, it may be difficult to achieve oxygen saturations higher than this. * Currently saturating 95% on 4 L NC. Discussed goal with RN at bedside. 2. Hypercarbic respiratory failure: Unclear etiology. May have a component of overlap syndrome/sleep disordered breathing. Obesity hypoventilation would also be in the differential. She does not appear to manifest any neuromuscular weakness. As she is well compensated. Outpatient polysomnography recommended 3. Pulmonary hypertension: The patient could have several potential contributing processes. With prior history of substance abuse, Group 1 pulmonary hypertension is possible. Given her alcohol use, portal pulmonary hypertension would be in the differential if she has underlying cirrhosis. Her last echocardiogram demonstrated diastolic dysfunction so there may be a component of group 2 pulmonary hypertension. With COPD and hypercarbia, group 3 pulmonary hypertension would also be possible. She has evidence of acute PE. She is at risk for development of group 4 pulmonary hypertension and she may require a VQ scan in the outpatient setting for evaluation of chronic thromboem bolic pulmonary hypertension. Ultimately, the patient will require referral to a tertiary pulmonary hypertension center of excellence for consideration of right and left heart catheterization. They will need to assess her left ventricular end-diastolic pressure as well as evaluate PA pressures and response to vasodilators. Would not institute pulmonary vasodilator medications at this point in time without that additional data. * Continue Lasix dosing. 4. With the patient's extensive history of alcohol abuse, she may have a component of cirrhosis although that was not evident on the CT scan performed back in April. Her synthetic function is preserved. Acute alcohol withdrawal per primary service 5. Acute exacerbation of COPD: Smoking cessation recommended to the patient. Outpatient pulmonary function test recommended. Continue Anoro, DuoNebs, and doxycycline and prednisone 40 mg a day for acute exacerbation of COPD. She appears to be improving. * Continues with wheezing, but reported to be improved. 6. The patient should have outpatient overnight attended polysomnography performed. She is not appropriate for home sleep testing. 7. Acute PE: Started on Eliquis. Given her PFO and shunt physiology, can make a case for lifelong anticoagulation. 8. Bilateral Upper Extremity Edema: This is reported to be new per RN. ??IV infiltration on the RIGHT, but there is edema of the LUE as well from the elbow to the hand. * Patient w/ known pulmonary HTN and volume issues already. * Will obtain US of the bilateral upper extremities for the sake of completion. She is already anticoagulated on Eliquis. Thank you for allowing us to participate in the care of this patient. Admission and Anticipated Discharge Date Admission Date: September 13, 2022 Subjective Patient was seen and evaluated at bedside this morning. She is drowsy, but awake, alert, and oriented. She reports ongoing difficulty in her breathing, however she has been titrated down to 4 L nasal cannula and saturating at 95%. Her complaint is her shakiness. She reports feeling better after receiving Ativan. Review of Systems Review of Systems: A complete 6 point review of systems was reviewed with the patient with pertinent positives and negatives as per history of present illness. All else were negative. Physical Exam Physical Exam: VITAL SIGNS - Vital signs and nursing notes were reviewed. GENERAL - 57-year-old female appearing her stated age who is in no acute distress. Drowsy, but answers questions appropriately. NECK - Neck with FROM. LUNGS - No tachypnea. Wheezes noted throughout. No rales or rhonchi noted. CARDIAC - RRR with S1/S2. No murmur, rubs, or gallops appreciated. No reproducible tenderness to palpation appreciated over the anterior chest wall. ABDOMEN - Abdominal contour obese without pulsations or visible masses. BS normoactive all four quadrants. No tenderness, palpable masses, hepatosplenomegaly, or ascites noted. EXTREMITIES - No clubbing or peripheral cyanosis. No pretibial edema present. Moderate edema noted to the bilateral upper extremities. +3/5 radial and dorsalis pedis pulses palpated throughout. +5/5 strength noted in UE/LE bilaterally. NEUROLOGIC - Cranial nerves II through XII grossly intact. Sensory intact to light touch throughout. PSYCH - A&Ox3 and cooperates fully with examiner. Pt is very pleasant and interacts well with examiner. Results & Data Results & Data ([facility]) Vital Signs (Past 12 Hours) Vital Signs Temp Pulse Resp BP Pulse Ox O2 Del Method O2 Flow Rate 09/17/22 08:59 54 L 20 98 Nasal Cannula 6 09/17/22 07:23 36.9 C 51 L 20 154/68 H 95 Nasal Cannula 6.0 09/17/22 02:00 36.8 C 54 L 18 120/70 95 Nasal Cannula 09/16/22 22:41 37 C 55 L 18 119/76 94 Nasal Cannula PG Care Time/CCT Total # of Minutes Spent Total Time Spent with Patient: Total time spent is greater than 50% in coordination of care (as documented) at patient's floor/unit and/or counseling patient: Coding Level of Care Code 08540 SUB INP/OBS CARE 3/50MIN Diagnoses Hypercapnic respiratory failure J96.92 Acute hypoxemic respiratory failure J96.01 Pulmonary hypertension I27.20 COPD (chronic obstructive pulmonary disease) J44.9 Pulmonary embolism I26.99
[2022-09-17 12:34] LABS: Calcium 9.2 mg/dl (8.5-10.1); Carbon Dioxide 28 mmol/L (21-32); Chloride 103 mmol/L (98-107)
[2022-09-17 12:38] LABS: BUN Creatinine Ratio 17.9 (10-20); Blood Urea Nitrogen 20 mg/dl (6-23); Creatinine Clr Calc Pharmacy 73.2 ml/min; Est GFR (Non-African American) 55.3 ml/min; Glucose 141 mg/dl (70-99(Fasting))
[2022-09-17 13:45] LABS: Potassium 5.7 mmol/L (3.5-5.1)
[2022-09-17] MEDS ORDERED: FUROSEMIDE INJ 20 MG/2 ML VIAL IV ONE (14:20)
--- NOTE | 2022-09-17 14:53 | Hospitalist Progress Note ---
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 Per patient, she was sitting on a chair when she suddenly lost consciousness for about a second [witnessed, patient's friend was there] and her friend woke her up; and reports being aware of the surrounding and her friend immediately after waking up from LOC. Denies any fall or abnormal body movements. She is being managed for the following: Syncope: Electrolyte abnormality: Admitting potassium 2.7, magnesium 1.5, phosphorus 2.2. Alcohol abuse: Drinks 4 bottle of Smirnoff (8% alc) every day, reports drinking heavily since last 3 months. Patient came in with brief loss of consciousness, no fall or trauma, no abnormal limb activity, no confusion after recovery per patient. Syncope multifactorial, PE vs electrolytes abn vs cardiac arrhythmia vs hypoxia vs others Abnormal EKG at presentation, troponin minimally elevated at presentation is already downtrending and WNL. Echo with EF of 60 to 65%, borderline concentric LVH, flattened septum consistent with RV pressure overload, RVSP moderate to severe elevation at 50 to 60 mmHg, small patent reina ovale noted. Monitor replete electrolytes. AWSS protocol. Pt counselled against alcohol use. Cardiology on board, appreciate recommendation. C/w tele. Acute on chronic hypoxemic respiratory failure: likely 2/2 PE vs Pul HTN vs both vs other etiologies. Hypercarbic resp failure: Admitting ABG w/ elevated CO2. Pulm evaled, OP PSG indicated. Pulmonary embolism: per CTA chest Pul HTN: per echo. V/Q scan as OP for CTEPH eval. F/u Pul HTN center for Rt & Lt heart cath for Pul HTN eval. c/w diuresis. related KCL supplement. Possible Pneumonia: on unasyn 09/15 and on doxy. AE COPD: doxy, nebs, prednisone. OP PFT Patient was discharged in April last year on 2 L nasal cannula oxygen which patient reports has been using it and needed to crank up to 4 L in the last 2 days [employer]. Admitting CXR with no acute finding, admitting CTA chest with few segmental and subsegmental bilateral PE. No evidence of right heart strain. Trace pleural effusion and mild pulmonary edema. ECHO as above. Admitting ABG with PaO2 of 64. Admitting procal negative. WBC wnl. Currently on 2L by [place] Pulmonology consulted, appreciate recommendation, OP PFT. PE detected in CTA chest, on eliquis (pt's cost would be 3 dollars/month) Chest pain: Patient reports getting on and off chest pain for the last 2 months [employer], occasionally worsened by activity but no actual correlation with rest or activity per patient. Could be cardiac origin vs GERD. Tele monitoring. Cardio on board. c/w PPI BID given her alcohol abuse history. Tobacco abuse: Patient stated smoking since age 15, currently smokes 4 cigarettes a day, has been cutting down since 3 months and has been on nicotine patch. Counselled on smoking cessation. Vaping: Patient reports that she has been vaping since last month. Counselled regarding vaping cessation. Constipation: Patient reports moving bowels every 3 to 4 days, likely secondary to methadone. Bowel regimen scheduled and as needed. Iron profile w/ low transferrin saturation and low normal b12 level, initiated iron and b12 supplement . Other chronic medical conditions: Hepatitis C, ongoing alcoholism: Mild elevation in liver function test. Counseled about alcohol cessation. Follow-up with GI for hepatitis C. COPD: Continue with home inhalers. HTN, GERD, thrombocytopenia--- resume home meds as able DVT prophylaxis: eliquis Full code Admission and Anticipated Discharge Date Admission Date: September 13, 2022 Subjective Patient seen and examined at bedside as a follow-up of syncope and hypoxemic respiratory failure. Patient was lying in bed, on 2 L oxygen via [place], NAD, needed ativan doses overnight for high CIWA score. Pt eating ok per RN/double breakfast today. Pt drowsy, reports minimal belly pain (did eat 2 breakfast prior to my exam), answered orientation questions but couldn't get further ROS, does not appear to be in pain or distress. Since RN not aware of last BM, will get KUB XR. Had elevated K in am, low k diet ordered, but seen eating banana/also got AM KCL tab as labs was out after the dose was given,repeat K 5.7, will give additional dose of lasix in iv form, repeat labs at 430pm, ekg w/ no hyperkalemic changes, pt w/ no chest s/s. Physical Exam Physical Exam: GENERAL: drowsy and oriented x3. NAD, on 2 L via NC HEENT: No pallor, no icterus. Pupils equal, round and reactive to light. Oral mucosa moist. NECK: No JVD, no neck masses. HEART: S1 and S2 heard. Regular rate and rhythm. No murmur, no gallop. RESPIRATORY SYSTEM: Normal AP diameter. No accessory muscle use. + wheezing, b/b crackles L>R. ABDOMEN: Soft, bowel sounds present, epigastrium - mild tenderness, no distention. CENTRAL NERVOUS SYSTEM: No facial droop. Speech is clear. Obeys simple commands. Moves extremities. L. EXTREMITIES: No edema, no erythema seen. Results & Data Results & Data ([facility]) Vital Signs (Past 12 Hours) Vital Signs Temp Pulse Pulse Resp BP Pulse Ox Pulse Ox 09/17/22 12:39 53 L 09/17/22 12:10 54 L 19 126/63 98 09/17/22 07:00 92 09/17/22 10:44 09/17/22 08:59 54 L 20 98 09/17/22 07:23 36.9 C 51 L 20 154/68 H 95 O2 Del Method O2 Del Method O2 Flow Rate O2 Flow Rate 09/17/22 12:39 09/17/22 12:10 Nasal Cannula 3.0 09/17/22 07:00 Nasal Cannula 1 09/17/22 10:44 Nasal Cannula 2 09/17/22 08:59 Nasal Cannula 6 09/17/22 07:23 Nasal Cannula 6.0
[2022-09-17 16:52] LABS: Creatinine Clr Calc Pharmacy 73.9 ml/min; Est GFR (African American) 64.7 ml/min; Est GFR (Non-African American) 55.9 ml/min; Potassium 5.6 mmol/L (3.5-5.1)
--- NOTE | 2022-09-17 17:18 | Electrocardiogram Report ---
Test Reason : Blood Pressure : / mmHG Vent. Rate : 057 BPM Atrial Rate : 057 BPM P-R Int : 138 ms QRS Dur : 076 ms QT Int : 450 ms P-R-T Axes : 041 070 074 degrees QTc Int : 438 ms Sinus bradycardia with Premature atrial complexes Otherwise normal ECG When compared with ECG of 15-SEP-2022 05:45, Premature atrial complexes are now Present Non-specific change in ST segment in Inferior leads Nonspecific T wave abnormality no longer evident in Inferior leads Nonspecific T wave abnormality no longer evident in Lateral leads QT has shortened Confirmed by Fabian Wayne ([id number]) on 09/17/2022 5:18:22 PM Referred By: REFERRED SELF Confirmed By:Sawyer Wayne
--- NOTE | 2022-09-17 20:53 | Ultrasound Report ---
Bilateral UPPER EXTREMITY VENOUS DOPPLER HISTORY: Bilateral upper extremity swelling COMPARISON STUDY: None. FINDINGS: The bilateral internal jugular veins are patent. There is normal flow within the bilateral subclavian veins. There is normal flow and compressibility within the bilateral axillary, basilic, br achial, radial, ulnar, and visualized cephalic veins. Of note, the distal bilateral upper arm cephali c veins are not visualized. Incidental note is made of a catheter within the right basilic vein. IMPRESSION: No DVT within the bilateral upper extremities. ACT 112: Negative or not required by law. Electronically signed by: John Bowers M.D. 09/17/2022 8:51 PM
--- NOTE | 2022-09-17 20:56 | XRay Report ---
KUB HISTORY: no bowel movement/good diet/pt drowsy/some belly pain COMPARISON: Abdomen and pelvis CT 05/16/2022. FINDINGS: The bowel gas pattern is unremarkable. There are no dilated loops of small bowel to suggest an obstruction. No renal calculi. No ureteral calculi. Calcifications in the deep pelvis likely rep resent phleboliths. Moderate to large amount of well-formed stool seen throughout the majority of the colon. No pneumoperitoneum or pneumatosis. There is a right hip arthroplasty. Body wall edema is not ed. IMPRESSION: 1. No evidence for a bowel obstruction. 2. Moderate to large amount of well-formed stool seen throughout the majority of the colon. ACT 112: Negative or not required by law. Electronically signed by: John Bowers M.D. 09/17/2022 8:54 PM
[2022-09-18] MEDS: AMPICILLIN/SULBACTAM SOD 3,000 MG in 0.9 % SODIUM CHLORIDE 100 ML IV SCH ×4 (03:08→22:34)
--- NOTE | 2022-09-18 07:34 | Pulmonology Progress Note ---
Date of Service September 18, 2022 Assessment & Plan (1) Hypercapnic respiratory failure: (2) Acute hypoxemic respiratory failure: (3) Pulmonary hypertension: (4) COPD (chronic obstructive pulmonary disease): (5) Pulmonary embolism: Plan Impression: 57-year-old female presenting to the hospital with syncopal episode found to have elevated pulmonary arterial pressures on echocardiogram and hypoxemic respiratory failure. Her blood gas demonstrates chronic hypercarbic respiratory failure of unclear etiology. CT angiogram demonstrated small filling defects consistent with thromboembolic disease. Patient is being treated for an acute exacerbation of COPD Recommendations: 1. Hypoxemic respiratory failure: Multifactorial due to PE, hypercarbia, shunt physiology due to PFO as well as components of intrapulmonary shunt. Continue attempts to wean oxygen to maintain saturations at or around of 88%. Given her shunt physiology, it may be difficult to achieve oxygen saturations higher than this. * Saturating in the mid 90s on 2 L nasal cannula which is her baseline oxygen requirement at home. This could even be attempted to be weaned further as she is continue to be maximized from a pulmonary/cardiac/volume status. 2. Hypercarbic respiratory failure: Unclear etiology. May have a component of overlap syndrome/sleep disordered breathing. Obesity hypoventilation would also be in the differential. She does not appear to manifest any neuromuscular weakness. As she is well compensated. Outpatient polysomnography recommended. * Patient will need an outpatient sleep study performed which can be coordinated with her primary care service. 3. Pulmonary hypertension: The patient could have several potential contributing processes. With prior history of substance abuse, Group 1 pulmonary hypertension is possible. Given her alcohol use, portal pulmonary hypertension would be in the differential if she has underlying cirrhosis. Her last echocardiogram demonstrated diastolic dysfunction so there may be a component of group 2 pulmonary hypertension. With COPD and hypercarbia, group 3 pulmonary hypertension would also be possible. She has evidence of acute PE. She is at risk for development of group 4 pulmonary hypertension and she may require a VQ scan in the outpatient setting for evaluation of chronic thromboembolic pulmonary hypertension. Ultimately, the patient will require referral to a tertiary pulmonary hypertension center of excellence for consideration of right and left heart catheterization. They will need to assess her left ventricular end-diastolic pressure as well as evaluate PA pressures and response to vasodilators. Would not institute pulmonary vasodilator medications at this point in time without that additional data. * Continue Lasix dosing. 4. With the patient's extensive history of alcohol abuse, she may have a com ponent of cirrhosis although that was not evident on the CT scan performed back in April. Her synthetic function is preserved. Acute alcohol withdrawal per primary service. 5. Acute exacerbation of COPD: Smoking cessation recommended to the patient. Outpatient pulmonary function test recommended. Continue Anoro, DuoNebs, and doxycycline and prednisone 40 mg a day for acute exacerbation of COPD. She appears to be improving. * Wheezing continues to improve. Continue with current inhalers moving forward. 6. The patient should have outpatient overnight attended polysomnography performed. She is not appropriate for home sleep testing. 7. Acute PE: Started on Eliquis. Given her PFO and shunt physiology, can make a case for lifelong anticoagulation. 8. Bilateral Upper Extremity Edema: This is reported to be new per RN. ??IV infiltration on the RIGHT, but there is edema of the LUE as well from the elbow to the hand. * Patient w/ known pulmonary HTN and volume issues already. * Ultrasound of the bilateral upper extremities without findings of DVT. Thank you for allowing us to participate in the care of this patient. Moving forward, the patient will need the above-mentioned outpatient evaluations including sleep study and RIGHT-sided heart cath which can be performed a pulmonary hypertension center for excellence. This can be coordinated by her primary care service in the outpatient setting. At this point, the patient has continued to show great improvement and is back to her baseline. Pulmonary services will sign off at this time. Please feel free to reach out to us with any questions or concerns. Admission and Anticipated Discharge Date Admission Date: September 13, 2022 Subjective Patient was seen and evaluated by myself at bedside. She has been on 2 L for approximately 24 hours at this point. This is her baseline oxygen requirement at home. She reports feeling better today. She states that her symptoms have improved since her initial presentation date. She has some mild persistent wheezing, but states that overall, this is improved as well. She did try using the nasal pillows for CPAP which she reports did not work as well as the mask. Otherwise, she offers no other complaints at this time Review of Systems Review of Systems: A complete 6 point review of systems was reviewed with the patient with pertinent positives and negatives as per history of present illness. All else were negative. Physical Exam Physical Exam: VITAL SIGNS - Vital signs and nursing notes were reviewed. GENERAL - 57-year-old female appearing her stated age who is in no acute distress. Drowsy, but answers questions appropriately. NECK - Neck with FROM. LUNGS - No tachypnea. Scant wheezes, greatly improved. No rales or rhonchi noted. CARDIAC - RRR with S1/S2. No murmur, rubs, or gallops appreciated. No reproducible tenderness to palpation appreciated over the anterior chest wall. ABDOMEN - Abdominal contour obese without pulsations or visible masses. BS normoactive all four quadrants. No tenderness, palpable masses, hepatosplenomegaly, or ascites noted. EXTREMITIES - No clubbing or peripheral cyanosis. No pretibial edema present. Moderate edema noted to the bilateral upper extremities. +3/5 radial and dorsalis pedis pulses palpated throughout. +5/5 strength noted in UE/LE bilaterally. PSYCH - A&Ox3 and cooperates fully with examiner. Pt is very pleasant and interacts well with examiner. Results & Data Results & Data ([facility]) Vital Signs (Past 12 Hours) Vital Signs Temp Pulse Pulse Resp BP Pulse Ox O2 Del Method 09/18/22 03:05 36.7 C 60 18 146/75 H 92 Nasal Cannula 09/17/22 21:57 64 09/17/22 23:00 36.5 C 56 L 18 139/78 91 Nasal Cannula 09/17/22 19:42 36.6 C 53 L 18 138/75 97 Room Air O2 Flow Rate 09/18/22 03:05 2 09/17/22 21:57 09/17/22 23:00 2 09/17/22 19:42 PG Care Time/CCT Total # of Minutes Spent Total Time Spent with Patient: Total time spent is greater than 50% in coordination of care (as documented) at patient's floor/unit and/or counseling patient: Coding Level of Care Code 93099 SUB INP/OBS CARE 2/35MIN Diagnoses Hypercapnic respiratory failure J96.92 Acute hypoxemic respiratory failure J96.01 Pulmonary hypertension I27.20 COPD (chronic obstructive pulmonary disease) J44.9 Pulmonary embolism I26.99
[2022-09-18 07:52] LABS: Hemoglobin 11.6 g/dl (12.0-16.0); Mean Corpuscular Hemoglobin 32.4 pg (25.0-34.0); Mean Corpuscular Hgb Conc 32.2 g/dL (32.0-36.0); Mean Corpuscular Volume 100.6 fL (80.0-100.0); Mean Platelet Volume 9.8 fL (9.4-12.4); Platelet Count 230 K/uL (130-400); RDW Standard Deviation 51.9 fL (36.4-46.3); Red Blood Count 3.58 M/uL (4.20-5.40); White Blood Count 10.07 K/ul (4.8-10.8)
[2022-09-18] MEDS: FOLIC ACID 1 MG in SYRINGE 9.8 ML IV SCH (07:58)
[2022-09-18] MEDS: METOPROLOL SUCC 25MG EXT REL TAB PO SCH ×2 (07:58→19:45)
[2022-09-18] MEDS: METHADONE HCL 10 MG TAB PO SCH (07:58)
[2022-09-18] MEDS: predniSONE 20 MG TAB PO SCH ×2 (07:58→19:46)
[2022-09-18] MEDS: THIAMINE HCL 100 MG in SYRINGE 9 ML IV SCH (07:58)
[2022-09-18] MEDS: PANTOprazole 40 MG TAB PO SCH ×2 (07:58→19:44)
[2022-09-18] MEDS: amLODIPine BESYLATE 5 MG TAB PO SCH (07:59)
[2022-09-18] MEDS: FERROUS GLUCONATE 324 MG TAB PO SCH (07:59)
[2022-09-18] MEDS: FUROSEMIDE 40 MG TAB PO SCH (07:59)
[2022-09-18] MEDS: CYANOCOBALAMIN (B-12) 100 MCG TABLET PO SCH (08:00)
[2022-09-18] MEDS: DULoxetine HCL 30 MG CAP PO SCH (08:00)
[2022-09-18] MEDS: NICOTINE 14 MG/24 HR PATCH TD SCH (08:00)
[2022-09-18] MEDS: UMECLIDINIUM/VILANTEROL 62.5/25MCG 7 PUFFS/INHALER INH SCH (08:01)
[2022-09-18] MEDS: DOXYCYCLINE HYCLATE 100 MG CAP PO SCH ×2 (08:01→19:44)
[2022-09-18 08:09] LABS: BUN Creatinine Ratio 20.2 (10-20); Calcium 9.4 mg/dl (8.5-10.1); Est GFR (African American) 66.2 ml/min; Est GFR (Non-African American) 57.1 ml/min; Magnesium 1.9 mg/dl (1.7-2.4); Phosphorus 4.6 mg/dl (2.5-4.9)
[2022-09-18] MEDS: POLYETHYLENE (MIRALAX) 17 GM PACK PO SCH (08:09)
[2022-09-18] MEDS: clonazePAM 0.5 MG TAB PO SCH ×2 (08:09→19:49)
[2022-09-18] MEDS: DOCUSATE SODIUM 100 MG CAP PO SCH ×2 (08:09→19:51)
[2022-09-18] MEDS: APIXABAN 5 MG TABLET PO SCH ×2 (09:13→19:45)
[2022-09-18] MEDS ORDERED: LACTULOSE SYRUP 20 GM/30 ML UDC PO ONE (11:25)
--- NOTE | 2022-09-18 18:10 | Hospitalist Progress Note ---
Date of Service September 18, 2022 Assessment & Plan (1) Hypercapnic respiratory failure: (2) Acute hypoxemic respiratory failure: Plan 57-year-old lady with PMH of substance abuse, COPD, history of right lung nodule, HTN, GERD, methadone maintenance (x 17 years per pt), osteoarthritis, depression presented to the ED 09/13 with complaint of syncope. Per patient, she was sitting on a chair when she suddenly lost consciousness for about a second [witnessed, patient's friend was there] and her friend woke her up; and reports being aware of the surrounding and her friend immediately after waking up from LOC. Denies any fall or abnormal body movements. She is being managed for the following: Syncope: Electrolyte abnormality: Admitting potassium 2.7, magnesium 1.5, phosphorus 2.2. Alcohol abuse: Drinks 4 bottle of Smirnoff (8% alc) every day, reports drinking heavily since last 3 months. Patient came in with brief loss of consciousness, no fall or trauma, no abnormal limb activity, no confusion after recovery per patient. Syncope multifactorial, PE vs electrolytes abn vs cardiac arrhythmia vs hypoxia vs others Abnormal EKG at presentation, troponin minimally elevated at presentation is already downtrending and WNL. Echo with EF of 60 to 65%, borderline concentric LVH, flattened septum consistent with RV pressure overload, RVSP moderate to severe elevation at 50 to 60 mmHg, small patent reina ovale noted. Monitor replete electrolytes. AWSS protocol. Pt counselled against alcohol use. Cardiology on board, appreciate recommendation. C/w tele. Becoming more alert. Will get PT/OT eval. Report feeling weak and tired. Acute on chronic hypoxemic respiratory failure: likely 2/2 PE vs Pul HTN vs both vs other etiologies. Hypercarbic resp failure: Admitting ABG w/ elevated CO2. Pulm evaled, OP PSG indicated. Pulmonary embolism: per CTA chest Pul HTN: per echo. V/Q scan as OP for CTEPH eval. F/u Pul HTN center for Rt & Lt heart cath for Pul HTN eval. c/w diuresis. related KCL supplement. Possible Pneumonia: on unasyn 09/15 and on doxy. AE COPD: doxy, nebs, prednisone. OP PFT. taper steroid in AM. 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 Admitting CXR with no acute finding, admitting CTA chest with few segmental and subsegmental bilateral PE. No evidence of right heart strain. Trace pleural effusion and mild pulmonary edema. ECHO as above. Admitting ABG with PaO2 of 64. Admitting procal negative. WBC wnl. Currently on 2L by [place] Pulmonology consulted, appreciate recommendation, OP PFT. PE detected in CTA chest, on eliquis (pt's cost would be 3 dollars/month) Wheezing and crackles improving on exam. 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 Could be cardiac origin vs GERD. Tele monitoring. Cardio on board. c/w PPI BID given her alcohol abuse history. Tobacco abuse: Patient stated smoking since age 15, currently smokes 4 cigarettes a day, has been cutting down since 3 months and has been on nicotine patch. Counselled on smoking cessation. Vaping: Patient reports that she has been vaping since last month. Counselled regarding vaping cessation. Constipation: Patient reports moving bowels every 3 to 4 days, likely secondary to methadone. Bowel regimen scheduled and as needed. We will use a dose of lactulose today. Iron profile w/ low transferrin saturation and low normal b12 level, initiated iron and b12 supplement . Other chronic medical conditions: Hepatitis C, ongoing alcoholism: Mild elevation in liver function test. Counseled about alcohol cessation. Follow-up with GI for hepatitis C. COPD: Continue with home inhalers. HTN, GERD, thrombocytopenia--- resume home meds as able DVT prophylaxis: eliquis Full code Admission and Anticipated Discharge Date Admission Date: September 13, 2022 Subjective Patient seen and examined at bedside as a follow-up of syncope and hypoxemic respiratory failure. Patient was lying in bed, on 2 L oxygen via [place], NAD, decreasing need for prn ativan doses overnight for high CIWA score. Pt eating ok per RN. Pt more alert/feels better today, denies chest pain/trouble breathing/belly pain/review of symptoms. Patient reports not being able to move bowel, but is moving gas and no belly pain. Patient also reports being weak and tired. X-ray KUB with large amount of stool in the colon, no evidence of obstruction. Will use laxatives and stool softener liberally. Physical Exam Physical Exam: GENERAL: Alert and oriented x3. NAD, on 2 L via [place] HEENT: No pallor, no icterus. Pupils equal, round and reactive to light. Oral mucosa moist. NECK: No JVD, no neck masses. HEART: S1 and S2 heard. Regular rate and rhythm. No murmur, no gallop. RESPIRATORY SYSTEM: Normal AP diameter. No accessory muscle use. + wheezing, b/b crackles L>R. Improving wheezing and crackles. ABDOMEN: Soft, bowel sounds present, nontender, no distention. CENTRAL NERVOUS SYSTEM: No facial droop. Speech is clear. Obeys simple commands. Moves extremities. L. EXTREMITIES: No edema, no erythema seen. Results & Data Results & Data ([facility]) Vital Signs (Past 12 Hours) Vital Signs Temp Pulse Pulse Resp BP Pulse Ox O2 Del Method 09/18/22 15:49 36.7 C 54 L 19 147/87 H 94 Nasal Cannula 09/18/22 15:44 50 L 09/18/22 12:05 37.0 C 54 L 19 148/80 H 91 Nasal Cannula 09/18/22 09:00 53 L 09/18/22 09:00 Nasal Cannula 09/18/22 07:46 37.0 C 60 18 150/87 H 94 Room Air O2 Flow Rate 09/18/22 15:49 3.0 09/18/22 15:44 09/18/22 12:05 2.0 09/18/22 09:00 09/18/22 09:00 2 09/18/22 07:46
[2022-09-18] MEDS: diphenhydrAMINE Capsule 25 MG CAP PO PRN (22:39)
[2022-09-18] MEDS ORDERED: LORazepam 2 MG/1 ML VIAL IV STA (23:34)
[2022-09-19] MEDS: LORazepam 2 MG/1 ML VIAL IV PRN (01:54)
[2022-09-19] MEDS: AMPICILLIN/SULBACTAM SOD 3,000 MG in 0.9 % SODIUM CHLORIDE 100 ML IV SCH (03:51)
[2022-09-19 07:58] LABS: Hematocrit (blood only) 36.5 % (37.0-47.0); Hemoglobin 11.9 g/dl (12.0-16.0); Mean Corpuscular Hemoglobin 32.3 pg (25.0-34.0); Mean Corpuscular Hgb Conc 32.6 g/dL (32.0-36.0); Mean Corpuscular Volume 99.2 fL (80.0-100.0); Mean Platelet Volume 9.6 fL (9.4-12.4); Platelet Count 274 K/uL (130-400); RDW Coefficient of Variation 13.6 % (11.5-14.5); RDW Standard Deviation 49.8 fL (36.4-46.3); Red Blood Count 3.68 M/uL (4.20-5.40); White Blood Count 10.22 K/ul (4.8-10.8)
[2022-09-19 08:11] LABS: BUN Creatinine Ratio 26.2 (10-20); Calcium 9.7 mg/dl (8.5-10.1); Creatinine Clr Calc Pharmacy 80.5 ml/min; Est GFR (African American) 70.9 ml/min; Est GFR (Non-African American) 61.1 ml/min; Magnesium 2.1 mg/dl (1.7-2.4); Phosphorus 5.7 mg/dl (2.5-4.9); Potassium 4.9 mmol/L (3.5-5.1)
[2022-09-19 08:38] LABS: Troponin I High Sensitivity 8.1 pg/ml (0-14)
[2022-09-19] MEDS: FOLIC ACID 1 MG in SYRINGE 9.8 ML IV SCH (08:41)
[2022-09-19] MEDS: POLYETHYLENE (MIRALAX) 17 GM PACK PO SCH (08:41)
[2022-09-19] MEDS: DOCUSATE SODIUM 100 MG CAP PO SCH ×2 (08:41→19:34)
[2022-09-19] MEDS: THIAMINE HCL 100 MG in SYRINGE 9 ML IV SCH (08:41)
[2022-09-19] MEDS: clonazePAM 0.5 MG TAB PO SCH (08:41)
[2022-09-19] MEDS: APIXABAN 5 MG TABLET PO SCH ×2 (08:42→19:28)
[2022-09-19] MEDS: amLODIPine BESYLATE 5 MG TAB PO SCH (08:42)
[2022-09-19] MEDS: METOPROLOL SUCC 25MG EXT REL TAB PO SCH ×2 (08:42→19:29)
[2022-09-19] MEDS: predniSONE 20 MG TAB PO SCH (08:42)
[2022-09-19] MEDS: DULoxetine HCL 30 MG CAP PO SCH (08:42)
[2022-09-19] MEDS: FUROSEMIDE 40 MG TAB PO SCH (08:42)
[2022-09-19] MEDS: DOXYCYCLINE HYCLATE 100 MG CAP PO SCH ×2 (08:42→19:27)
[2022-09-19] MEDS: FERROUS GLUCONATE 324 MG TAB PO SCH (08:43)
[2022-09-19] MEDS: UMECLIDINIUM/VILANTEROL 62.5/25MCG 7 PUFFS/INHALER INH SCH (08:43)
[2022-09-19] MEDS: PANTOprazole 40 MG TAB PO SCH ×2 (08:43→19:31)
[2022-09-19] MEDS: CYANOCOBALAMIN (B-12) 100 MCG TABLET PO SCH (08:43)
[2022-09-19] MEDS: METHADONE HCL 10 MG TAB PO SCH (09:04)
[2022-09-19] MEDS: NICOTINE 14 MG/24 HR PATCH TD SCH (09:11)
--- NOTE | 2022-09-19 10:19 | Electrocardiogram Report ---
Test Reason : Blood Pressure : / mmHG Vent. Rate : 051 BPM Atrial Rate : 051 BPM P-R Int : 130 ms QRS Dur : 090 ms QT Int : 496 ms P-R-T Axes : 049 071 075 degrees QTc Int : 457 ms Sinus bradycardia Otherwise normal ECG When compared with ECG of 17-SEP-2022 14:29, Premature atrial complexes are no longer Present Confirmed by Fabian Wayne ([id number]) on 09/19/2022 10:18:51 AM Referred By: REFERRED SELF Confirmed By:Sawyer Wayne
[2022-09-19] MEDS: AMOXICILLIN/CLAVULANATE 875 MG TAB PO SCH ×2 (10:36→19:27)
--- NOTE | 2022-09-19 11:52 | XRay Report ---
XR chest 1V portable HISTORY: Atypical chest pain COMPARISON: Chest 09/15/2022. FINDINGS: No pneumothorax. No pleural effusions. Overlying cardiac monitoring leads are noted. The ca rdiac silhouette remains mildly enlarged. Mild interstitial thickening persists. Patchy left base air space opacities are again noted. No new focal lung consolidations. IMPRESSION: No change in the patchy left base airspace opacities. This may represent atelectasis or a pneumonia. ACT 112: Negative or not required by law. Electronically signed by: John Bowers M.D. 09/19/2022 11:51 AM
[2022-09-19] MEDS ORDERED: CALCIUM CARBONATE 500 MG CHEWABLE TAB PO PRN (15:01)
--- NOTE | 2022-09-19 15:08 | Hospitalist Progress Note ---
Date of Service September 19, 2022 Assessment & Plan (1) Hypercapnic respiratory failure: (2) Acute hypoxemic respiratory failure: Plan 57-year-old lady with PMH of substance abuse, COPD, history of right lung nodule, HTN, GERD, methadone maintenance (x 17 years per pt), osteoarthritis, depression presented to the ED 09/13 with complaint of syncope. Per patient, she was sitting on a chair when she suddenly lost consciousness for about a second [witnessed, patient's friend was there] and her friend woke her up; and reports being aware of the surrounding and her friend immediately after waking up from LOC. Denies any fall or abnormal body movements. She is being managed for the following: Syncope: Electrolyte abnormality: Admitting potassium 2.7, magnesium 1.5, phosphorus 2.2. Alcohol abuse: Drinks 4 bottle of Smirnoff (8% alc) every day, reports drinking heavily since last 3 months. Patient came in with brief loss of consciousness, no fall or trauma, no abnormal limb activity, no confusion after recovery per patient. Syncope multifactorial, PE vs electrolytes abn vs cardiac arrhythmia vs hypoxia vs others Abnormal EKG at presentation, troponin minimally elevated at presentation is already downtrending and WNL. Echo with EF of 60 to 65%, borderline concentric LVH, flattened septum consistent with RV pressure overload, RVSP moderate to severe elevation at 50 to 60 mmHg, small patent reina ovale noted. Monitor replete electrolytes. AWSS protocol. Pt counselled against alcohol use. Decreasing as needed from CIWA protocol. Ativan use Cardiology evaluated, appreciate recommendation. C/w tele. Becoming more alert. Will get PT/OT eval. We will decrease metoprolol dose. Encourage PT/OT. Report feeling weak and tired. Encourage out of bed. Acute on chronic hypoxemic respiratory failure: likely 2/2 PE vs Pul HTN vs both vs other etiologies. Hypercarbic resp failure: Admitting ABG w/ elevated CO2. Pulm evaled, OP PSG indicated. Pulmonary embolism: per CTA chest Pul HTN: per echo. V/Q scan as OP for CTEPH eval. F/u Pul HTN center for Rt & Lt heart cath for Pul HTN eval. c/w diuresis. related KCL supplement. Possible Pneumonia: on unasyn 09/15 --> Feb 27 and doxy 09/14. Will need f/u CXR to document resolution. AE COPD: doxy, nebs, prednisone. OP PFT. 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 Admitting CXR with no acute finding, admitting CTA chest with few segmental and subsegmental bilateral PE. No evidence of right heart strain. Trace pleural effusion and mild pulmonary edema. ECHO as above. Admitting ABG with PaO2 of 64. Admitting procal negative. WBC wnl. Currently on 2L by [place] Pulmonology evaluated, appreciate recommendation, OP PFT. PE detected in CTA chest, on eliquis (pt's cost would be 3 dollars/month) Wheezing and crackles improving on exam. 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 Could be cardiac origin vs GERD. c/w PPI BID given her alcohol abuse history. Tobacco abuse: Patient stated smoking since age 15, currently smokes 4 cigarettes a day, has been cutting down since 3 months and has been on nicotine patch. Counselled on smoking cessation. Vaping: Patient reports that she has been vaping since last month. Counselled regarding vaping cessation. Constipation: Patient reports moving bowels every 3 to 4 days, likely secondary to methadone. Bowel regimen scheduled and as needed. Iron profile w/ low transferrin saturation and low normal b12 level, initiated iron and b12 supplement . Other chronic medical conditions: Hepatitis C, ongoing alcoholism: Mild elevation in liver function test. Counseled about alcohol cessation. Follow-up with GI for hepatitis C. COPD: Continue with home inhalers. HTN, GERD, thrombocytopenia--- resume home meds as able DVT prophylaxis: eliquis Full code Disposition: PT/OT, CM to assist with DC planning. Patient will likely need SNF pending PT/OT evaluation/patient consult/patient seems agreeable. Admission and Anticipated Discharge Date Admission Date: September 13, 2022 Subjective Patient seen and examined at bedside as a follow-up of syncope and hypoxemic respiratory failure. Patient was lying in bed, sleeping/awoken easily on calling name, on 2 L oxygen via [place], NAD, decreasing need for prn ativan doses. Pt eating ok and moving bowels ok per RN. Pt complains of being weak and tired; also complains of heartburn. Pt denies chest pain/trouble breathing/belly pain/other review of symptoms. Continue to use laxatives as pt on maintenance methadone. Will decrease bid klonipin to prn bid; metoprolol to 12.5 bid from 25 mg bid. Unasyn to Augmentin. Prednisone 20 mg bid to 20 mg daily. C/t use protonix bid, if heartburn doesn't improve w/ decreasing steroid dose, will add famotidine. Will add tums for now. Physical Exam Physical Exam: GENERAL: Alert and oriented x3. NAD, on 2 L via [place] HEENT: No pallor, no icterus. Pupils equal, round and reactive to light. Oral mucosa moist. NECK: No JVD, no neck masses. HEART: S1 and S2 heard. Regular rate and rhythm. No murmur, no gallop. RESPIRATORY SYSTEM: Normal AP diameter. No accessory muscle use. + wheezing, b/b crackles L>R. Improving wheezing and crackles. ABDOMEN: Soft, bowel sounds present, nontender, no distention. CENTRAL NERVOUS SYSTEM: No facial droop. Speech is clear. Obeys simple commands. Moves extremities. L. EXTREMITIES: No edema, no erythema seen. Results & Data Results & Data ([facility]) Vital Signs (Past 12 Hours) Vital Signs Temp Pulse Pulse Resp BP Pulse Ox O2 Del Method 09/19/22 13:37 154/79 H 09/19/22 12:16 36.6 C 55 L 20 172/87 H 92 Nasal Cannula 09/19/22 09:12 49 L 09/19/22 09:12 Room Air 09/19/22 08:45 62 09/19/22 07:46 36.6 C 52 L 20 155/87 H 94 Nasal Cannula O2 Flow Rate 09/19/22 13:37 09/19/22 12:16 2.0 09/19/22 09:12 09/19/22 09:12 09/19/22 08:45 09/19/22 07:46 2.0
[2022-09-19] MEDS: clonazePAM 0.5 MG TAB PO PRN (19:34)
[2022-09-19] MEDS: diphenhydrAMINE Capsule 25 MG CAP PO PRN (20:33)
[2022-09-19] MEDS ORDERED: LORazepam 2 MG/1 ML VIAL IV STA (21:02)
[2022-09-20 06:11] LABS: Hematocrit (blood only) 39.5 % (37.0-47.0); Hemoglobin 12.9 g/dl (12.0-16.0); Mean Corpuscular Hemoglobin 32.3 pg (25.0-34.0); Mean Corpuscular Hgb Conc 32.7 g/dL (32.0-36.0); Mean Corpuscular Volume 98.8 fL (80.0-100.0); Mean Platelet Volume 9.4 fL (9.4-12.4); Platelet Count 307 K/uL (130-400); RDW Coefficient of Variation 13.6 % (11.5-14.5); RDW Standard Deviation 49.3 fL (36.4-46.3); White Blood Count 11.79 K/ul (4.8-10.8)
[2022-09-20 06:28] LABS: Creatinine Clr Calc Pharmacy 69.9 ml/min; Est GFR (African American) 61.4 ml/min
[2022-09-20] MEDS: METHADONE HCL 10 MG TAB PO SCH (08:22)
[2022-09-20] MEDS: clonazePAM 0.5 MG TAB PO PRN ×2 (08:22→13:09)
[2022-09-20] MEDS: PANTOprazole 40 MG TAB PO SCH ×2 (08:24→20:20)
[2022-09-20] MEDS: DULoxetine HCL 30 MG CAP PO SCH (08:24)
[2022-09-20] MEDS: FOLIC ACID 1 MG in SYRINGE 9.8 ML IV SCH (08:24)
[2022-09-20] MEDS: predniSONE 20 MG TAB PO SCH (08:25)
[2022-09-20] MEDS: CYANOCOBALAMIN (B-12) 100 MCG TABLET PO SCH (08:25)
[2022-09-20] MEDS: POLYETHYLENE (MIRALAX) 17 GM PACK PO SCH (08:25)
[2022-09-20] MEDS: APIXABAN 5 MG TABLET PO SCH ×2 (08:25→20:20)
[2022-09-20] MEDS: amLODIPine BESYLATE 5 MG TAB PO SCH (08:26)
[2022-09-20] MEDS: FERROUS GLUCONATE 324 MG TAB PO SCH (08:26)
[2022-09-20] MEDS: METOPROLOL SUCC 25MG EXT REL TAB PO SCH ×2 (08:26→20:22)
[2022-09-20] MEDS: DOXYCYCLINE HYCLATE 100 MG CAP PO SCH ×2 (08:26→20:20)
[2022-09-20] MEDS: NICOTINE 14 MG/24 HR PATCH TD SCH (08:27)
[2022-09-20] MEDS: AMOXICILLIN/CLAVULANATE 875 MG TAB PO SCH ×2 (08:27→20:20)
[2022-09-20] MEDS: UMECLIDINIUM/VILANTEROL 62.5/25MCG 7 PUFFS/INHALER INH SCH (08:27)
[2022-09-20] MEDS: FUROSEMIDE 40 MG TAB PO SCH (08:27)
[2022-09-20] MEDS: DOCUSATE SODIUM 100 MG CAP PO SCH ×2 (08:35→20:23)
[2022-09-20] MEDS: THIAMINE HCL 100 MG in SYRINGE 9 ML IV SCH (08:39)
--- NOTE | 2022-09-20 15:36 | Hospitalist Progress Note ---
Date of Service September 20, 2022 Assessment & Plan (1) Hypercapnic respiratory failure: (2) Acute hypoxemic respiratory failure: Plan 57-year-old lady with PMH of substance abuse, COPD, history of right lung nodule, HTN, GERD, methadone maintenance (x 17 years per pt), osteoarthritis, depression presented to the ED 09/13 with complaint of syncope. Per patient, she was sitting on a chair when she suddenly lost consciousness for about a second [witnessed, patient's friend was there] and her friend woke her up; and reports being aware of the surrounding and her friend immediately after waking up from LOC. Denies any fall or abnormal body movements. She is being managed for the following: Syncope: Electrolyte abnormality: Admitting potassium 2.7, magnesium 1.5, phosphorus 2.2. Alcohol abuse: Drinks 4 bottle of Smirnoff (8% alc) every day, reports drinking heavily since last 3 months. Patient came in with brief loss of consciousness, no fall or trauma, no abnormal limb activity, no confusion after recovery per patient. Syncope multifactorial, PE vs electrolytes abn vs cardiac arrhythmia vs hypoxia vs others Abnormal EKG at presentation, troponin minimally elevated at presentation is already downtrending and WNL. Echo with EF of 60 to 65%, borderline concentric LVH, flattened septum consistent with RV pressure overload, RVSP moderate to severe elevation at 50 to 60 mmHg, small patent reina ovale noted. Monitor replete electrolytes. AWSS protocol. Pt counselled against alcohol use. Decreasing as needed ativan use from CIWA protocol. Cardiology evaluated, appreciate recommendation. C/w tele. Becoming more alert. closer to baseline, pt/ot re-eval -- home w/ HH c/w decreased metoprolol dose. Encourage PT/OT. Acute on chronic hypoxemic respiratory failure: likely 2/2 PE vs Pul HTN vs both vs other etiologies. Hypercarbic resp failure: Admitting ABG w/ elevated CO2. Pulm evaled, OP PSG indicated. Pulmonary embolism: per CTA chest Pul HTN: per echo. V/Q scan as OP for CTEPH eval. F/u Pul HTN center for Rt & L t heart cath for Pul HTN eval. c/w diuresis. related KCL supplement. Possible Pneumonia: on unasyn 09/15 --> Feb 27 and doxy 09/14. Will need f/u CXR to document resolution. AE COPD: doxy, nebs, prednisone. OP PFT. 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 No evidence of right heart strain. Trace pleural effusion and mild pulmonary edema. ECHO as above. Admitting ABG with PaO2 of 64. Admitting procal negative. WBC wnl. Currently on 2L by [place] Pulmonology evaluated, appreciate recommendation, OP PFT. PE detected in CTA chest, on eliquis (pt's cost would be 3 dollars/month) Wheezing and crackles improving on exam. 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 Could be cardiac origin vs GERD. c/w PPI BID given her alcohol abuse history. Pt reports improvement in her heartburn. Tobacco abuse: Patient stated smoking since age 15, currently smokes 4 cigarettes a day, has been cutting down since 3 months and has been on nicotine patch. Counselled on smoking cessation. Vaping: Patient reports that she has been vaping since last month. Counselled regarding vaping cessation. Constipation: Patient reports moving bowels every 3 to 4 days, likely secondary to methadone. Bowel regimen scheduled and as needed. Iron profile w/ low transferrin saturation and low normal b12 level, initiated iron and b12 supplement . Other chronic medical conditions: Hepatitis C, ongoing alcoholism: Mild elevation in liver function test. Counseled about alcohol cessation. Follow-up with GI for hepatitis C. COPD: Continue with home inhalers. HTN, GERD, thrombocytopenia--- resume home meds as able DVT prophylaxis: eliquis Full code Disposition: PT/OT, CM to assist with DC planning. Likely dc to home w/ hh likely [facility]. Admission and Anticipated Discharge Date Admission Date: September 13, 2022 Subjective Patient seen and examined at bedside as a follow-up of syncope and hypoxemic respiratory failure. Patient was lying in bed, sleeping/awoken easily on calling name, on 2 L oxygen via [place], NAD, decreasing need for prn ativan doses. Pt eating ok and moving bowels ok. Pt feels a lot better and closer to baseline, but not yet ready to go home, wants to go home tomorrow. Asked pt/ot to re-eval as they recommended snf initially, but now she has improved and likely will go home w/ HH PT. Pt complains of being weak and tired; reports improving heartburn. Pt denies chest pain/trouble breathing/belly pain/other review of symptoms. Continue to use laxatives as pt on maintenance methadone. Physical Exam Physical Exam: GENERAL: Alert and oriented x3. NAD, on 2 L via [place] HEENT: No pallor, no icterus. Pupils equal, round and reactive to light. Oral mucosa moist. NECK: No JVD, no neck masses. HEART: S1 and S2 heard. Regular rate and rhythm. No murmur, no gallop. RESPIRATORY SYSTEM: Normal AP diameter. No accessory muscle use. no wheezing, b/b crackles L>R -- improving. ABDOMEN: Soft, bowel sounds present, nontender, no distention. CENTRAL NERVOUS SYSTEM: No facial droop. Speech is clear. Obeys simple commands. Moves extremities. L. EXTREMITIES: No edema, no erythema seen. Results & Data Results & Data ([facility]) Vital Signs (Past 12 Hours) Vital Signs Temp Pulse Pulse Resp BP Pulse Ox O2 Del Method 09/20/22 15:19 36.6 C 54 L 18 142/77 H 96 Oxymask 09/20/22 10:55 36.8 C 52 L 18 143/75 H 91 Oxymask 09/20/22 07:40 Nasal Cannula 09/20/22 07:20 36.7 C 55 L 20 153/89 H 94 Nasal Cannula O2 Flow Rate 09/20/22 15:19 3 09/20/22 10:55 3 09/20/22 07:40 2 09/20/22 07:20 2
[2022-09-20] MEDS: diphenhydrAMINE Capsule 25 MG CAP PO PRN (17:54)
[2022-09-20] MEDS ORDERED: MELATONIN 3 MG TAB PO PRN (21:58)
[2022-09-21] MEDS: LORazepam 2 MG/1 ML VIAL IV PRN (01:06)
[2022-09-21 08:02] LABS: Hematocrit (blood only) 40.4 % (37.0-47.0); Hemoglobin 13.2 g/dl (12.0-16.0); Mean Corpuscular Hemoglobin 32.2 pg (25.0-34.0); Mean Corpuscular Hgb Conc 32.7 g/dL (32.0-36.0); Mean Corpuscular Volume 98.5 fL (80.0-100.0); Mean Platelet Volume 9.5 fL (9.4-12.4); Platelet Count 311 K/uL (130-400); RDW Coefficient of Variation 13.7 % (11.5-14.5); RDW Standard Deviation 50.4 fL (36.4-46.3); White Blood Count 11.83 K/ul (4.8-10.8)
[2022-09-21 08:12] LABS: BUN Creatinine Ratio 26.4 (10-20); Calcium 9.4 mg/dl (8.5-10.1); Creatinine Clr Calc Pharmacy 66.1 ml/min; Est GFR (African American) 58.3 ml/min; Est GFR (Non-African American) 50.3 ml/min
[2022-09-21] MEDS: amLODIPine BESYLATE 5 MG TAB PO SCH (08:15)
[2022-09-21] MEDS: FOLIC ACID 1 MG in SYRINGE 9.8 ML IV SCH (08:15)
[2022-09-21] MEDS: THIAMINE HCL 100 MG in SYRINGE 9 ML IV SCH (08:15)
[2022-09-21] MEDS: METHADONE HCL 10 MG TAB PO SCH (08:15)
[2022-09-21] MEDS: FERROUS GLUCONATE 324 MG TAB PO SCH (08:16)
[2022-09-21] MEDS: DULoxetine HCL 30 MG CAP PO SCH (08:16)
[2022-09-21] MEDS: METOPROLOL SUCC 25MG EXT REL TAB PO SCH (08:16)
[2022-09-21] MEDS: CYANOCOBALAMIN (B-12) 100 MCG TABLET PO SCH (08:17)
[2022-09-21] MEDS: FUROSEMIDE 40 MG TAB PO SCH (08:17)
[2022-09-21] MEDS: predniSONE 20 MG TAB PO SCH (08:17)
[2022-09-21] MEDS: NICOTINE 14 MG/24 HR PATCH TD SCH (08:18)
[2022-09-21] MEDS: APIXABAN 5 MG TABLET PO SCH (08:19)
[2022-09-21] MEDS: PANTOprazole 40 MG TAB PO SCH (08:19)
[2022-09-21] MEDS: AMOXICILLIN/CLAVULANATE 875 MG TAB PO SCH (08:19)
[2022-09-21] MEDS: UMECLIDINIUM/VILANTEROL 62.5/25MCG 7 PUFFS/INHALER INH SCH (08:20)
[2022-09-21] MEDS: POLYETHYLENE (MIRALAX) 17 GM PACK PO SCH (08:20)
[2022-09-21] MEDS: DOCUSATE SODIUM 100 MG CAP PO SCH (08:21)
[2022-09-21] MEDS: clonazePAM 0.5 MG TAB PO PRN (08:23)
--- NOTE | 2022-09-21 12:00 | Discharge Summary ---
Date of Service September 21, 2022 Admission HPI Per Admitting Provider DATE OF ADMISSION: 09/13/2022. CHIEF COMPLAINT: Syncope. HISTORY OF PRESENT ILLNESS: A 57-year-old female with past medical history significant for COPD; history of right lung nodule; hypertension; GERD; history of KARLA; osteoarthritis; history of methadone maintenance therapy the patient says since last 17 years; history of substance abuse, in remission; ongoing tobacco abuse, on nicotine patch; depression, presents with syncope. The patient says she was sitting on a chair when she suddenly lost consciousness for about a second and her friend was there and she woke her up and she came back and was confused for a short period of time, then back to normal. Because of that, she came to the hospital. She was found to have electrolyte abnormalities with a potassium of 2.7, magnesium of 1.5, phosphorus 2.2, got it replaced in the ER. She says she drinks alcohol, four bottles of Smirnoff, 8% alcohol, large bottles, daily. She smokes a few cigarettes, currently on nicotine patch. Denies any headache. She is having on and off blurred visions for the last 2 weeks. No earache, no runny nose, no sore throat. No cough. She says she is getting on and off chest pains for the last 2 months, sometimes walking makes it worse. No shortness of breath, no nausea, eating and drinking okay. No abdominal pain. Normal bowel and bladder movements. She is somewhat constipated with methadone. She moves her bowels every 3-4 days. No swelling in the legs. ALLERGIES: No known drug allergies. PAST MEDICAL HISTORY: As mentioned above. PAST SURGICAL HISTORY: Right total hip replacement. MEDICATIONS: The patient is on albuterol 2 puffs inhalation q. 6 hours p.r.n., amlodipine 10 mg p.o. daily, bisacodyl 5 mg p.o. at bedtime p.r.n., Benadryl 50 mg p.o. at bedtime p.r.n., duloxetine 30 mg p.o. daily, hydroxyzine 25-50 mg p.o. at bedtime p.r.n., methadone 100 mg p.o. daily, metoprolol succinate 25 mg p.o. b.i.d., nicotine 14 mg transdermal daily, omeprazole 20 mg p.o. daily. FAMILY HISTORY: Significant for no family history on file. SOCIAL HISTORY: . Currently smoking few cigarettes daily, trying to quit with a nicotine patch. She is drinking four big bottles of Smirnoffs daily. Used to do heroin in the past, currently on methadone. REVIEW OF SYSTEMS: As per HPI. Rest of the review of systems is negative. Admission Exam Per Admitting Provider GENERAL: The patient is of moderate built, not in acute distress. VITAL SIGNS: Temperature 36.4, pulse 63, respiratory rate 18, blood pressure 123/79, oxygen 96% on 4 liters. HEENT: Pupils equal, round and reactive to light. Oral mucosa moist. NECK: No JVD. No neck masses. CARDIOVASCULAR: S1 and S2 heard. Regular rate and rhythm. No murmur, no gallop. RESPIRATORY SYSTEM: Normal AP diameter. No accessory muscle use. No wheezing, no crackles. ABDOMEN: Soft, bowel sounds present, nontender, no distention. CENTRAL NERVOUS SYSTEM: Cranial nerves II through XII are grossly intact, nonfocal. EXTREMITIES: No edema, no erythema. Principal Diagnosis Syncope likely secondary to PE Electrolyte abnormality Alcohol abuse Acute on chronic hypoxemic respiratory failure Hypercapnic respiratory failure Pulmonary hypertension Pneumonia Acute exacerbation of COPD Tobacco abuse Vaping Constipation secondary to being on methadone Discharge Exam GENERAL: Alert and oriented x3. NAD, on 2 L via NC HEENT: No pallor, no icterus. Pupils equal, round and reactive to light. Oral mucosa moist. NECK: No JVD, no neck masses. HEART: S1 and S2 heard. Regular rate and rhythm. No murmur, no gallop. RESPIRATORY SYSTEM: Normal AP diameter. No accessory muscle use. no wheezing, b/b crackles L>R -- improving. ABDOMEN: Soft, bowel sounds present, nontender, no distention. CENTRAL NERVOUS SYSTEM: No facial droop. Speech is clear. Obeys simple commands. Moves extremities. L. EXTREMITIES: No edema, no erythema seen. Discharge Data Allergies Allergy/AdvReac Type Severity Reaction Status Date / Time No Known Allergies Allergy Verified 09/12/22 23:56 Consultations 09/13/22 02:12 ED Decision to Admit Stat 09/13/22 08:00 Consult Cardiology Routine 09/13/22 10:55 Consult Pulmonology Routine Ordered Studies 02/16/23 16:16 CT angio chest PE protocol Stat 09/13/22 18:44 US venous doppler LE BI Routine 09/17/22 11:00 US venous doppler UE BI Urgent Hospital Course (1) Hypercapnic respiratory failure: (2) Acute hypoxemic respiratory failure: Plan 57-year-old lady with PMH of substance abuse, COPD, history of right lung nodule, HTN, GERD, methadone maintenance (x 17 years per pt), osteoarthritis, depression presented to the ED 09/13 with complaint of syncope. Per patient, she was sitting on a chair when she suddenly lost consciousness for about a second [witnessed, patient's friend was there] and her friend woke her up; and reports being aware of the surrounding and her friend immediately after waking up from LOC. Denies any fall or abnormal body movements. She was managed for the following: Syncope: Electrolyte abnormality: Admitting potassium 2.7, magnesium 1.5, phosphorus 2.2. Alcohol abuse: Drinks 4 bottle of Smirnoff (8% alc) every day, reports drinking heavily since last 3 months. Patient came in with brief loss of consciousness, no fall or trauma, no abnormal limb activity, no confusion after recovery per patient. Syncope multifactorial, PE vs electrolytes abn vs cardiac arrhythmia vs hypoxia vs others Abnormal EKG at presentation, troponin minimally elevated at presentation is already downtrending and WNL. Echo with EF of 60 to 65%, borderline concentric LVH, flattened septum consistent with RV pressure overload, RVSP moderate to severe elevation at 50 to 60 mmHg, small patent reina ovale noted. Tapered off of IWONA S protocol. Patient counseled against alcohol use/tobacco use/vaping. Patient back to baseline and out of withdrawal window. PT/OT evaluated. Recommend discharge home with home health. Cardiology evaluated, appreciate recommendation. Due to bradycardia while in hospital, metoprolol dose reduced to 12.5 Mg twice a day. Acute on chronic hypoxemic respiratory failure: likely 2/2 PE vs Pul HTN vs both vs other etiologies. Hypercarbic resp failure: Admitting ABG w/ elevated CO2. Pulm evaled, OP PSG indicated. Pulmonary embolism: per CTA chest Pul HTN: per echo. V/Q scan as OP for CTEPH eval. F/u Pul HTN center for Rt & Lt heart cath for Pul HTN eval. c/w diuresis. related KCL supplement. Possible Pneumonia: on unasyn 09/15 --> Feb 27 and doxy 09/14. Will need f/u CXR to document resolution. AE COPD: doxy, nebs, prednisone. OP PFT. taper steroid to 20 mg daily for 3 days starting 09/19 Patient was discharged in April last year on 2 L nasal cannula oxygen which patient reports has been using it and needed to crank up to 4 L in the last 2 days [employer] SUR[employer]YING [employer] WORK[employer]. Admitting CXR with no acute finding, admitting CTA chest with few segmental and subsegmental bilateral PE. No evidence of right heart strain. Trace pleural effusion and mild pulmonary edema. ECHO as above. Admitting ABG with PaO2 of 64. Admitting procal negative. WBC wnl. Currently on 2L by NC which is around her baseline Pulmonology evaluated, appreciate recommendation, OP PFT. PE detected in CTA chest, on eliquis (pt's cost would be 3 dollars/month). Patient to take 10 Mg twice a day for 3 more doses after discharge and then 5 Mg twice a day thereafter. Wheezing and crackles improving on exam. Patient to follow-up with PCP/pulmonology/get referral for pulmonary hypertension clinic from them and various other tests to be followed as outlined above and in the instruction section. 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 Could be cardiac origin vs GERD. c/w PPI BID given her a lcohol abuse history. Pt reports improvement in her heartburn. Patient to follow-up with PCP for ongoing management. Will need GI evaluation if worsening/no improvement. Tobacco abuse: Patient stated smoking since age 15, currently smokes 4 cigarettes a day, has been cutting down since 3 months and has been on nicotine patch. Counselled on smoking cessation. Vaping: Patient reports that she has been vaping since last month. Counselled regarding vaping cessation. Constipation: Patient reports moving bowels every 3 to 4 days, likely secondary to methadone. Bowel regimen scheduled and as needed. Iron profile w/ low transferrin saturation and low normal b12 level, initiated iron and b12 supplement . Other chronic medical conditions: Hepatitis C, ongoing alcoholism: Mild elevation in liver function test. Counseled about alcohol cessation. Follow-up with GI for hepatitis C. COPD: Continue with home inhalers. HTN, GERD, thrombocytopenia--- resume home meds as able DVT prophylaxis: eliquis Full code Patient being discharged to home with home health with following instruction at the point of discharge: Follow-up with your primary care physician within a week time and likely you will need labs CBC/CMP/magnesium/phosphorus. For your heartburn/GERD, avoid alcohol and tobacco products. Take a smaller volume meals at the time. If it continues to worsen you may need evaluation by a GI doctor, coordinate with your primary care office for referral to GI doctor. You will be discharged on protonix twice a day, follow w/ PCP office for ongoing evaluation and in future they can make it once a day if you continue to have symptom improvement. Recommend quitting drinking and tobacco use. Closely follow-up with your methadone clinic for possible tapering down of your methadone need. Recommend strongly against any kind of vaping. For your blood clots in the lung, you are being discharged on Eliquis. Take Eliquis as follows: 10 mg tablet twice a day for 3 more doses starting today (09/21/22) evening. Then take 5 mg tablet twice a day thereafter. Follow-up with your lung doctor as an outpatient, likely you will need lung function test in 6-week upon discharge. For your pulmonary hypertension, you will need evaluation with your lung doctor and also referral for pulmonary hypertension center. You will likely need VQ scan for CTEPH evaluation, and also need right and left heart cath for pulmonary hypertension evaluation. Continue with your diuretic dose that has been prescribed for Pulmonary hypertension. Also coordinate with your PCP office for outpatient sleep study as you will benefit from sleep evaluation due to hypercarbic respiratory failure noted in hospital/obesity/Pulmonary hypertension. Follow-up with GI doctor for your history of hepatitis C if not done prior. Medication changes while in hospital: You have been started on blood thinner named Eliquis due to diagnosis of blood clot in your lungs. Your metoprolol dose has been reduced to 12.5 Mg twice a day as your heart rate were on the lower side throughout the hospital stay. For your pneumonia, complete the course of antibiotic that is being prescribed. You will need repeat CXR in 6 weeks to document resolution, coordinate w/ either PCP or Lung doctor's office. For your pulmonary hypertension, you have been started on diuretics. Continue to follow-up with your lung doctor for ongoing management. Take small dose potassium supplement when taking lasix. Your iron level and Vitamin B12 level were low, you have been started on iron and Vitamin B12 supplement. For you anxiety, you have been started on buspar twice daily, follow up with PCP office for ongoing management. Take your medications as prescribed. Please make sure that you are able to get your medications today by calling your pharmacy before you leave the hospital so that your treatment continuity is not broken. Home Health Attestation I certify that this patient is under my care and that I, or a physicians assistant refinery operator working with me, had a face to-face encounter that meets the home health [id number] encounter requirements with this patient. The encounter with the patient was in whole, or in part, for the following medical condition, which is the primary reason for home health care (list medical condition): I certify that, based on my findings, the following services are medically necessary home health services: My clinical findings support the need for the above services because: Further, I certify that my clinical findings support that this patient is homebound (i.e. absences from home require considerable and taxing effort and are for medical reasons or advent services or infrequently or of short duration when for other reasons) because: Certification for Home Health Services: Based on the above findings, I certify that this patient is confined to the home and needs intermittent senior care care, physical therapy and/or speech therapy or continues to need occupational therapy. The patient is under my care, and I have initiated the establishment of the plan of care. This patient will be followed by a physician who will periodically review the plan of care. Total Time Total Time Spent Total Time Spent (In Minutes): 92 Discharge Plan Discharge Items Patient Disposition: Home - Home Health Services Reason For Visit: SYNCOPE Discharge Diagnosis: Syncope likely secondary to PE Electrolyte abnormality Alcohol abuse Acute on chronic hypoxemic respiratory failure Hypercapnic respiratory failure Pulmonary hypertension Pneumonia Acute exacerbation of COPD Tobacco abuse Vaping Constipation secondary to being on methadone Activity: Resume your previous activity Non-emergency contact: Primary Care Provider Call non-emergency contact if: you have any medication questions, your symptoms worsen and your temperature is above 101 Follow-up/Referrals: Joe Lockwood DO [Primary Care Provider] - Diet: Heart Healthy and Low Sodium (2gm) Addtl Attending Provider Instructions: Follow-up with your primary care physician within a week time and likely you will need labs CBC/CMP/magnesium/phosphorus. For your heartburn/GERD, avoid alcohol and tobacco products. Take a smaller volume meals at the time. If it continues to worsen you may need evaluation by a GI doctor, coordinate with your primary care office for referral to GI doctor. You will be discharged on protonix twice a day, follow w/ PCP office for ongoing evaluation and in future they can make it once a day if you continue to have symptom improvement. Recommend quitting drinking and tobacco use. Closely follow-up with your methadone clinic for possible tapering down of your methadone need. Recommend strongly against any kind of vaping. For your blood clots in the lung, you are being discharged on Eliquis. Take Eliquis as follows: 10 mg tablet twice a day for 3 more doses starting today (09/21/22) evening. Then take 5 mg tablet twice a day thereafter. Follow-up with your lung doctor as an outpatient, likely you will need lung function test in 6-week upon discharge. For your pulmonary hypertension, you will need evaluation with your lung doctor and also referral for pulmonary hypertension center. You will likely need VQ scan for CTEPH evaluation, and also need right and left heart cath for pulmonary hypertension evaluation. Continue with your diuretic dose that has been prescribed for Pulmonary hypertension. Also coordinate with your PCP office for outpatient sleep study as you will benefit from sleep evaluation due to hypercarbic respiratory failure noted in hospital/obesity/Pulmonary hypertension. Follow-up with GI doctor for your history of hepatitis C if not done prior. Medication changes while in hospital: You have been started on blood thinner named Eliquis due to diagnosis of blood clot in your lungs. Your metoprolol dose has been reduced to 12.5 Mg twice a day as your heart rate were on the lower side throughout the hospital stay. For your pneumonia, complete the course of antibiotic that is being prescribed. You will need repeat CXR in 6 weeks to document resolution, coordinate w/ either PCP or Lung doctor's office. For your pulmonary hypertension, you have been started on diuretics. Continue to follow-up with your lung doctor for ongoing management. Take small dose potassium supplement when taking lasix. Your iron level and Vitamin B12 level were low, you have been started on iron and Vitamin B12 supplement. For you anxiety, you have been started on buspar twice daily, follow up with PCP office for ongoing management. Take your medications as prescribed. Please make sure that you are able to get your medications today by calling your pharmacy before you leave the hospital so that your treatment continuity is not broken. Pending Studies at Discharge: No Stand-Alone Forms: My [facility], Smoking Cessation Medications and DC Order Prescriptions: New amoxicillin-pot clavulanate 875-125 mg Tablet 1 tab PO BID 3 Days Qty: 6 0RF ferrous gluconate 324 mg (38 mg iron) Tablet 324 mg PO QAM Qty: 30 0RF furosemide 40 mg Tablet 40 mg PO QAM Qty: 30 0RF potassium chloride [K-Tab] 10 mEq tablet extended release 10 meq PO DAILY Qty: 30 0RF Rx Instructions: take one tablet daily with lasix. pantoprazole 40 mg Tablet,Delayed Release (Dr/Ec) 40 mg PO BID Qty: 60 0RF polyethylene glycol 3350 [Miralax] 17 gram Powder In Packet 17 g PO DAILY PRN (Reason: laxative effect) Qty: 30 0RF melatonin 3 mg Tablet 3 mg PO HS PRN (Reason: sleep) Qty: 30 0RF cyanocobalamin (vitamin B-12) [Vitamin B-12] 100 mcg Tablet 100 mcg PO QAM Qty: 30 0RF clonazepam 0.5 mg tablet 0.5 mg PO BID PRN (Reason: anxiety) 3 Days Qty: 6 0RF Eliquis 5 mg tablet 5 mg PO BID Qty: 63 0RF Rx Instructions: take 2 tabs twice a day for 3 more doses starting evening of 09/21/22. then take 1 tab twice a day. buspirone 7.5 mg tablet 7.5 mg PO BID Qty: 60 0RF Continued amlodipine 10 mg tablet 10 mg PO DAILY hydroxyzine HCl 25 mg tablet 25 - 50 mg PO HS PRN (Reason: Insomnia) duloxetine 30 mg capsule,delayed release(DR/EC) 30 mg PO DAILY methadone 40 mg Tablet,Soluble 100 mg PO DAILY albuterol sulfate 90 mcg/actuation HFA aerosol inhaler 2 puff INHALATION Q6H PRN (Reason: Cough) diphenhydramine HCl [Benadryl] 25 mg Capsule 50 mg PO HS PRN (Reason: SLEEP/ITCHING) nicotine 14 mg/24 hr patch 24 hour 14 mg transdermal DAILY Qty: 14 0RF bisacodyl 5 mg Tablet 5 mg PO HS PRN (Reason: Constipation) Qty: 30 0RF Changed metoprolol succinate 25 mg tablet extended release 24 hr 12.5 mg PO BID Qty: 15 0RF Rx Instructions: LAST FILLED 03/21/22 FOR 90 DAYS/180 TABS. Discontinued omeprazole 20 mg capsule,delayed release(DR/EC) 20 mg PO DAILY turmeric root extract 500 mg Capsule 500 mg PO DAILY Discharge Orders: Discharge Order (Routine); Ordered 09/21/22 Ordered By: Vivian Meraz Admission Data Admit Date/Time: 09/13/22 02:51 Attending Provider: Vivian Meraz Admit Provider: Alo Jason Primary Care Provider: Joe Lockwood Other Providers: Alo Jason ; Pravin Mcgill ; Oleg Mark ; Italo Díaz ; Julio Jimenez ; Rodolfo Hou ; Rodriguez Willingham ; Quita iKng ; Crystal Graham ; Urvashi Godwin ; Anil Alfonso ; Ulisses Carrasquillo
[2022-09-23] MEDS ORDERED: APIXABAN 5 MG TABLET PO SCH (09:00)
== END 2022-09-21 14:29 | disposition home health service (06) | DRG 175 ==
LOC: ED 23:30 → EDINP 09-13 02:51 → 1E 09-13 05:10 → 2S 09-15 20:47

== ENCOUNTER 2023-08-23 08:31 | Inpatient (IN) ==
[2023-08-23] MEDS ORDERED: ALBUT/IPRATROP 3MG/0.5MG NEB 3 ML VIAL NEB ONE (09:05)
[2023-08-23] MEDS ORDERED: dexAMETHasone**PF** 10 MG/ML VIAL PO ONE (09:05)
--- OUTSIDE RECORDS SUMMARY | 2023-08-23 09:07 | External Medical Summary | Summary of Care ---
Author Name Unknown Organization [facility] Address [address] [place] [address] Phone [phone] Care Team Providers Care Toll Relief Operator Name Role Phone Moi Plummer MD Primary Care Provider Reason for Visit * Reason Onset Date Comments Medication Refill 07/31/2023 Encounter Details Date Type Department Care Team ([facility] st Contact Info) Description 07/31/2023 Refill Family Practice [facility] [address] [employer] [address] [place] [address] Moi Plummer MD [address] [place] [address] Allergies Active Allergy Reactions Criticality Noted Date Comments Buspirone Rash 11/01/2022 documented as of this encounter (statuses as of 07/31/2023) Medications Medication Sig Dispensed Refills Start Date End Date Status methADONE 10 MG Tablet Take 1 Tablet by mouth once. 100mg daily 0 Active Umeclidinium-Lauren nterol 62.5-25 MCG/ACT Inhalation Aerosol Powder Breath Activated (ANORO ellipta)Indicatio ns:COPD, mild (HCC) Inhale 1 Puff by mouth in the morning. 60 Blister Dosing Unit 11 10/11/2022 Active Albuterol Sulfate HFA 108 (90 Base) MCG/ACT Inhalation Aerosol SolutionIndicatio ns:Cough INHALE 2 PUFFS BY MOUTH EVERY 6 HOURS NEEDED FOR COUGH 18 g 5 11/18/2022 Active DULoxetine HCl 30 MG Oral Capsule Delayed Release Particles (Cymbalta)Indicat ions:Mood disorder (HCC) take 1 capsule by mouth every morning 90 Capsule 3 01/01/2023 Active Tolnaftate 1 % External CreamIndications: Rash and nonspecific skin eruption Apply topically to affected area 2 times a day. Apply to thighs and lower back/gluteal cleft. 113 g 1 03/07/2023 Active Bisacodyl 5 MG Oral Tablet Delayed Release (Dulcolax) Take 1 Tablet by mouth daily as needed for Constipation. 30 Tablet 0 03/08/2023 Active Clobetasol Propionate 0.05 % External Cream (Temovate)Indicat ions:Psoriasis vulgaris Apply to rash on buttocks and thighs twice daily for 2 weeks 60 g 5 05/02/2023 Active amLODIPine Besylate 10 MG Oral Tablet (Norvasc)Indicati ons:HTN, goal below 130/80 take 1 tablet by mouth every morning 90 Tablet 1 05/03/2023 Active Potassium Chloride Mayda ER 10 MEQ Oral Tablet Extended Release Take 1 Tablet by mouth in the morning. 30 Tablet 5 05/15/2023 Active Furosemide 40 MG Oral Tablet (Lasix) Take 1 Tablet by mouth in the morning. 30 Tablet 5 05/15/2023 Active Apixaban 5 MG Oral Tablet (Eliquis) Take 1 Tablet by mouth in the morning and 1 Tablet before bedtime. 60 Tablet 5 05/15/2023 Active Pantoprazole Sodium 40 MG Oral Tablet Delayed Release (Protonix) Take 1 Tablet by mouth in the morning. 30 Tablet 5 05/15/2023 Active Naftifine HCl 2 % External CreamIndications: Rash and nonspecific skin eruption Apply topically to affected area daily. Apply to rash on thighs, buttocks, hands. 45 g 1 05/15/2023 Active Metoprolol Succinate ER 25 MG Oral Tablet Extended Release 24 Hour (toPROL XL)Indications:HT N, goal below 130/80 take 1 tablet by mouth twice a day 180 Tablet 2 06/10/2023 Active diazePAM 5 MG Oral Tablet (Valium)Indicatio ns:Situational anxiety Take 1 tab by mouth 45-[address] scan. Do not mix with alcohol. Do not drive. 4 Tablet 0 06/10/2023 Active Nicotine 7 MG/24HR Transdermal Patch 24 Hour (Nicoderm CQ)Indications:To bacco use disorder APPLY 1 PATCH TOPICALLY DAILY 14 Patch 0 07/16/2023 Active Ferrous Gluconate 324 (38 Fe) MG Oral Tablet Take 1 Tablet by mouth daily with breakfast. 30 Tablet 2 07/31/2023 Active Ferrous Gluconate 324 (38 Fe) MG Oral Tablet Take 1 Tablet by mouth daily with breakfast. 30 Tablet 5 05/15/2023 4 Discontinue d(Refill) Hospital, Clinic, or Other Facility Administered Medication Ordered Dose Route Frequency Start Date End Date Status Albuterol Sulfate (Proventil) (2.5 MG/3ML) 0.083% inhalation solution 2.5 mgIndications:COPD, mild (HCC) 2.5 mg NEBULIZER PRN 10/11/2022 Active documented as of this encounter (statuses as of 07/31/2023) Active Problems Problem Noted Date Diagnosed Date Dependence on supplemental oxygen 03/01/2023 Pulmonary emboli 02/09/2023 KARLA (acute kidney injury) 05/25/2022 Anemia 05/25/2022 Thrombocytopenia 05/25/2022 Nodule of right lung 05/25/2022 Overview: Multiple small lung nodules. 05/2023, stable. Recommend repeat 6-12 months. Referred to [facility] program. Medical home patient encounter 05/23/2022 Food insecurity 05/07/2022 Overview: Per [facility] Protocol COPD, group C, by GOLD 2017 classification 10/09 Overview: Per COPD GOLD Classification Methadone maintenance therapy patient 09/20/2021 Recurrent major depressive disorder 09/20/2021 Chronic obstructive pulmonar y disease with (acute) exacerbation 09/20/2021 Status post right hip replacement 12/05/2020 Primary osteoarthritis of right hip 11/22/2020 Obesity, Class I, BMI 30.0-34.9 (see actual BMI) 11/22/2020 Gastroesophageal reflux disease without esophagi tis 11/22/2020 Tobacco use disorder 11/22/2020 HTN, goal below 130/80 05/04/2020 Lumbar degenerative disc disease 05/04/2020 Primary osteoarthritis of both hips 05/04/2020 Substance abuse in remission 05/04/2020 documented as of this encounter (statuses as of 07/31/2023) Resolved Problems Problem Noted Date Diagnosed Date Resolved Date Chronic kidney disease, stage 3a 10/08/2022 03/01/2023 Overview: Per CKD protocol Substance abuse 05/25/2022 03/01/2023 Food insecurity 03/06/2021 01/11/2022 Overview: Per [facility] Protocol documented as of this encounter (statuses as of 07/31/2023) Immunizations Name Administration Dates Next Due Pneumococcal Polysaccharide PPV23 (Pneumovax) Seasonal Influenza Virus Vac cine, Unspecified Formulation 04/28/2020 Seasonal Influenza, PF, 6 M & above, IM , (FluLaval or Fluzone) 04/28/2020 TDAP (age 10 and older)(Boostrix) 04/28/2020 documented as of this encounter Social History Tobacco Use Types Packs/Day Years Used Date Smoking Tobacco: Every Day Cigarettes 2 41 Started: 1981 Vaporizer Started: 07/17 22 Smokeless Tobacco: Never Comments:10/11/22 2 cig/day K [facility] Alcohol Use Standard Drinks/Week Comments Not Currently 0 (1 standard drink = 0.6 oz pur e alcohol) PHQ-2 Answer Date Recorded PHQ Adult Total Score 8 05/25/2022 Hunger Vital Sign Answer Date Recorded Within the past 12 months, y ou worried that your food would run out before you got the money to buy more. Sometimes true Within the past 12 months, t he food you bought just didn't last and you didn't have money to get more. Sometimes true 08/2022 Sex and Gender Information Value Date Recorded Sex Assigned at Female 10/25/2022 12:12 AM EDT Gender Identity Female 10/25/2022 12:12 AM EDT Sexual Orientation Choose not to disclose 2022 12:12 AM EDT Job Start Date Occupation Industry Not on file Not on file Not on file documented as of this encounter Functional Status Functional Status Response Date of Assess ment Are you deaf or do you have serious difficulty h earing? No 12/05/2020 Are you blind or do you have serious difficulty seeing, even when wearing glasses? No 12/05/2020 Do you have serious difficul ty walking or climbing stairs? (5 years old or older) No 12/06/2020 Do you have difficulty dress ing or bathing? (5 years old or older) No 12/05/2020 Because of a physical, menta l, or emotional condition, do you have difficulty doing errands alone such as visiting a doctor s office or shopping? (15 years old or older) No 12/06/19 21 Cognitive Status Response Date of Assessm ent Because of a physical, menta l, or emotional condition, do you have serious difficulty concentrating, remembering, or making decisions? (5 years old or older) No 12/05/2020 documented as of this encounter Miscellaneous Notes * Telephone Encounter - Susan Hernandez RP - 07/31/2023 2:46 PM ESTSigned Prescriptions: Disp Refills Ferrous Gluconate 324 (38 Fe) MG Oral Tabl*30 Tab*2 Sig: Take 1 Tablet by mouth daily with breakfast.Authorizing Provider: MOI PLUMMER User: SUSAN HERNANDEZ * Telephone Encounter - Susan Hernandez RP - 07/31/2023 2:46 PM EST Resent to pharmacy as requested with remaining refills. Thank you, Susan Hernandez, Joselo Clinical Pharmacist [facility] [phone] 07/31/2023, 2:46 PM * Telephone Encounter - Richie Evans PHARM Tech - 07/31/2023 2:16 PM EST Pharmacy needs new script. Did you pend patient's preferred pharmacy and medication before forwarding?yes Pharmacy: [id number] [facility] Pending Prescriptions: Disp Refills Ferrous Gluconate 324 (38 Fe) MG Oral Tab*30 Tab*5 Sig: Take 1 Tablet by mouth daily with breakfast. Last Visit: 03/01/2023 (in office), Visit date not found (telemedicine) Next Visit: Visit date not found If no future appointments scheduled, and last appointment is greater than a year ago, please schedule patient for a follow-up appointment Last date the medication was ordered: 05/15/2023 Is this request for a controlled substance?No Urine Drug Screen:No results found for this or any previous visit. Patient Phone Numbers Labs: Lab Results Component Value Date/Time CREAT 0.9 11/14/2022 11:34 AM CREAT 0.92 10/09/2022 12:00 AM CREAT 0.8 02/29/2020 12:27 PM POTASSIUM 3.3 (A) 10/09/2022 12:00 AM POTASSIUM 3.9 02/29/2020 12:27 PM TSH 2.82 05/25/2022 12:46 PM TSH 2.11 02/29/2020 12:27 PM LDLCALC 196 (H) 11/25/2020 12:32 PM LDLCALC 205 (H) 02/29/2020 12:27 PM LDLDIRECT NOT APPLICABLE 02/29/2020 12:27 PM ALT 28 05/25/2022 12:46 PM ALT 21 02/29/2020 12:27 PM HGBA1C 5.6 11/25/2020 12:32 PM documented in this encounter Plan of Treatment Upcoming Encounters Date Type Department Care Team (Late st Contact Info) Description 08/20/2023 1:00 PM EST Office Visit Pulmonary Medicine, [facility] [address] [facility] [place] [address] Huan Branham MD [address] [place] [phone] Health Maintenance Due Date Last Done Comments DISCUSS TOBACCO CESSATION (REFER TO SMARTSET #6200) 1965 Hepatitis B (1 of 3 - 3-dose series) 1965 COVID-19 Vaccine (#1) 02/09/1968 Alpha-1 Antitrypsin 1985 Pap Smear 1988 Cervical Cancer Screening 1997 HPV/Co-Test 1997 Cologuard 2012 Colonoscopy 2012 Sigmoidoscopy 2012 Zoster Vaccines (1 of 2) 2017 Mammogram 02/28/2021 02/29/2020 Pneumococcal Vaccine: Pediatrics (0 to 5 Years) and At-Risk Patients (6 to 64 Years) (2 - PCV) 04/28/2021 04/28/2020 *ADVANCE DIRECTIVE NOT ON FILE 10/14/2021 Influenza Vaccine (FLU shot) (#1) 2023 04/28/2020, 04/28/2020 Depression Screening 05/25/2023 05/25/2022 GFR 11/15/2023 11/14/2022, 09/26, 09/28/2022, Additional history exists O2 ASSESSMENT COMPLETED IN PAST YEAR FOR COPD 03/01/2024 03/01/2023 Colorectal Cancer Screening 04/25/2024 Fecal Occult Blood Test 04/25/2024 04/25/2023 Albumin/Creatinine Ratio 04/26/2025 04/26/2022 Diabetes Screening 10/09/2025 10/09/2022, 0 09/28/2022, 05/25/2022, Additional history exists Lipid Panel 11/25/2025 11/25/2020, 02/29/2020 DTaP,Tdap,and Td Vaccines (2 - Td or Tdap) 04/28/2030 04/28/2020 GARDASIL-HPV IMMUNIZATION SERIES Aged Out No longer eligible based on patient's age to complete this topic MENINGOCOCCAL (MENACTRA/MENVEO) Aged Out No longer eligible based on patient's age to complete this topic documented as of this encounter Medical Devices Implanted Type Area Coach Device Identifier Shelf Expiration Date Model / Serial / Lot Accolade Ii 127 Deg Sz 4 - [id number] Implanted:Qty: 1 on 12/05/2020 by Rodolfo Park, at OR [facility] Right: Hip KANDICE : ORTHOPAEDICS 11/07/2025 [id number] / / [id number] documented as of this encounter Advance Directives Latest Code Status on File Code Status Date Activated Date Inactivated Comments Full Code 12/05/2020 1:45 PM 12/06/2020 4:22 PM This order reflects the patients wishes and were consensually agreed upon. Question Answer Comments Discussion of Advance Directives occurred with: Patient Does the patient have a Living Will? Yes, not currently available Does the patient have Health Care Power of Associate Medical Director? Yes, not currently available Care Teams Toll Relief Operator Relationship Specialty Start Date End Date Moi Plummer MD [address] [place] [phone] PCP - General Internal Medicine 11/05/22 documented as of this encounter
--- OUTSIDE RECORDS SUMMARY | 2023-08-23 09:07 | External Medical Summary | Summary of Care ---
Author Name Unknown Organization [facility] Address [address] [place] [address] Phone [phone] Care Team Providers Care Electronic Equipment Repairer Name Role Phone Roseann Plummer MD Primary Care Provider Reason for Visit * Reason Onset Date Comments Medication Refill 07/29/2023 Encounter Details Date Type Department Care Team ([facility] st Contact Info) Description 07/29/2023 Refill Family Practice [facility] [address] [employer] [address] [place] [address] Roseann Pulmmer MD [address] [place] [phone] Allergies Active Allergy Reactions Criticality Noted Date Comments Buspirone Rash 11/01/2022 documented as of this encounter (statuses as of 07/30/2023) Medications Medication Sig Dispensed Refills Start Date End Date Status methADONE 10 MG Tablet Take 1 Tablet by mouth once. 100mg daily 0 Active Umeclidinium-Vilan terol 62.5-25 MCG/ACT Inhalation Aerosol Powder Breath Activated (ANORO ellipta)Indication s:COPD, mild (HCC) Inhale 1 Puff by mouth in the morning. 60 Blister Dosing Unit 11 10/11/2022 Active Albuterol Sulfate HFA 108 (90 Base) MCG/ACT Inhalation Aerosol SolutionIndication s:Cough INHALE 2 PUFFS BY MOUTH EVERY 6 HOURS NEEDED FOR COUGH 18 g 5 11/18/2022 Active DULoxetine HCl 30 MG Oral Capsule Delayed Release Particles (Cymbalta)Indicati ons:Mood disorder (HCC) take 1 capsule by mouth every morning 90 Capsule 3 01/01/2023 Active Tolnaftate 1 % External CreamIndications:R ayaz and nonspecific skin eruption Apply topically to affected area 2 times a day. Apply to thighs and lower back/gluteal cleft. 113 g 1 03/07/2023 Active Bisacodyl 5 MG Oral Tablet Delayed Release (Dulcolax) Take 1 Tablet by mouth daily as needed for Constipation. 30 Tablet 0 03/08/2023 Active Clobetasol Propionate 0.05 % External Cream (Temovate)Indicati ons:Psoriasis vulgaris Apply to rash on buttocks and thighs twice daily for 2 weeks 60 g 5 05/02/2023 Active amLODIPine Besylate 10 MG Oral Tablet (Norvasc)Indicatio ns:HTN, goal below 130/80 take 1 tablet by mouth every morning 90 Tablet 1 05/03/2023 Active Potassium Chloride Mayad ER 10 MEQ Oral Tablet Extended Release Take 1 Tablet by mouth in the morning. 30 Tablet 5 05/15/2023 Active Furosemide 40 MG Oral Tablet (Lasix) Take 1 Tablet by mouth in the morning. 30 Tablet 5 05/15/2023 Active Apixaban 5 MG Oral Tablet (Eliquis) Take 1 Tablet by mouth in the morning and 1 Tablet before bedtime. 60 Tablet 5 05/15/2023 Active Ferrous Gluconate 324 (38 Fe) MG Oral Tablet Take 1 Tablet by mouth daily with breakfast. 30 Tablet 5 05/15/2023 Active Pantoprazole Sodium 40 MG Oral Tablet Delayed Release (Protonix) Take 1 Tablet by mouth in the morning. 30 Tablet 5 05/15/2023 Active Naftifine HCl 2 % External CreamIndications:R ayaz and nonspecific skin eruption Apply topically to affected area daily. Apply to rash on thighs, buttocks, hands. 45 g 1 05/15/2023 Active Metoprolol Succinate ER 25 MG Oral Tablet Extended Release 24 Hour (toPROL XL)Indications:HTN , goal below 130/80 take 1 tablet by mouth twice a day 180 Tablet 2 06/10/2023 Active diazePAM 5 MG Oral Tablet (Valium)Indication s:Situational anxiety Take 1 tab by mouth 45-[address] scan. Do not mix with alcohol. Do not drive. 4 Tablet 0 06/10/2023 Active Nicotine 7 MG/24HR Transdermal Patch 24 Hour (Nicoderm CQ)Indications:Tob acco use disorder APPLY 1 PATCH TOPICALLY DAILY 14 Patch 0 07/16/2023 Active Hospital, Clinic, or Other Facility Administered Medication Ordered Dose Route Frequency Start Date End Date Status Albuterol Sulfate (Proventil) (2.5 MG/3ML) 0.083% inhalation solution 2.5 mgIndications:COPD, mild (HCC) 2.5 mg NEBULIZER PRN 10/11/2022 Active documented as of this encounter (statuses as of 07/30/2023) Active Problems Problem Noted Date Diagnosed Date [...] as of this encounter (statuses as of 07/30/2023) Resolved Problems Problem Noted Date Diagnosed Date Resolved Date Chronic kidney disease, stage 3a 10/08/2022 03/01/2023 Overview: Per CKD protocol Substance abuse 05/25/2022 03/01/2023 Food insecurity 03/06/2021 01/11/2022 Overview: Per [facility] Protocol documented as of this encounter (statuses as of 07/30/2023) Immunizations Name Administration Dates Next Due Pneumococcal [...] encounter Miscellaneous Notes * Telephone Encounter - Rajesh Viramontes [facility] - 07/30/2023 4:19 PM EST Refused Prescriptions: Disp Refills Ferrous Gluconate 324 (38 Fe) MG Oral Tabl*30 Tab*5 Sig: Take 1Tablet by mouth daily with breakfast.Refused By: RAJESH VIRAMONTESReason for Refusal: Other (comment below)Reason for Refusal Comment: Sent MyG documented in this encounter Plan of Treatment Upcoming Encounters Date Type Department Care Team (Late st Contact Info) Description 07/31/2023 7:15 AM EST Imaging Radiology [address] [facility] [place] [phone] 08/20/2023 1:00 PM EST Office Visit Pulmonary Medicine, [facility] [address] [facility] [place] [address] Huan Branham MD [address] [place] [phone] Health Maintenance Due Date Last Done Comments DISCUSS TOBACCO CESSATION (REFER TO SMARTSET #9500) 1965 Hepatitis B (1 of 3 - [...] this encounter Medical Devices Implanted Type Area Helicopter Engineer Device Identifier Shelf Expiration Date Model / Serial / Lot Accolade Ii 127 Deg Sz 4 - [id number] Implanted:Qty: 1 on 12/05/2020 by Rodolfo Park DO at OR [facility] Right: Hip KANDICE : ORTHOPAEDICS 11/07/2025 [id number] / / [id number] documented as of this encounter Advance Directives [...] the patient have Health Care Power of Rug Designer? Yes, not currently available Care Teams Electronic Equipment Repairer Relationship Specialty Start Date End Date Roseann Plummer MD [address] [place] [phone] PCP - General Internal Medicine 11/05/22 documented as of this encounter
--- OUTSIDE RECORDS SUMMARY | 2023-08-23 09:07 | External Medical Summary | Summary of Care ---
Author Name Unknown Organization [facility] Address [address] [place] [address] Phone [phone] Care Team Providers Care Hearing Officer Name Role Phone Moi Plummer MD Primary Care Provider Reason for Visit * Reason Onset Date Comments Medication Refill 07/14/2023 Encounter Details Date Type Department Care Team (Late st Contact Info) Description 07/14/2023 Refill Family Practice [facility] [address] [place] [address] Moi Plummer MD [address] [place] [address] Tobacco use disorder Allergies Active Allergy Reactions Criticality Noted Date Comments Buspirone Rash 11/01/2022 documented as of this encounter (statuses as of 07/16/2023) Medications Medication Sig Dispensed Refills Start Date [...] TOPICALLY DAILY 14 Patch 0 07/16/2023 Active Nicotine 7 MG/24HR Transdermal Patch 24 Hour (Nicoderm CQ)Indications:To bacco use disorder APPLY 1 PATCH TOPICALLY DAILY 14 Patch 0 06/26/2023 Discontinue d(Refill) Hospital, Clinic, or Other Facility Administered Medication Ordered Dose Route Frequency Start Date End Date Status Albuterol Sulfate (Proventil) (2.5 MG/3ML) 0.083% inhalation solution 2.5 mgIndications:COPD, mild (HCC) 2.5 mg NEBULIZER PRN 10/11/2022 Active documented as of this encounter (statuses as of 07/16/2023) Active Problems Problem Noted Date Diagnosed Date [...] as of this encounter (statuses as of 07/16/2023) Resolved Problems Problem Noted Date Diagnosed Date Resolved Date Chronic kidney disease, stage 3a 10/08/2022 03/01/2023 Overview: Per CKD protocol Substance abuse 05/25/2022 03/01/2023 Food insecurity 03/06/2021 01/11/2022 Overview: Per [facility] Protocol documented as of this encounter (statuses as of 07/16/2023) Immunizations Name Administration Dates Next Due Pneumococcal [...] encounter Miscellaneous Notes * Telephone Encounter - Haley Payton [facility] - 07/16/2023 9:09 AM EST Signed Prescriptions: Disp Refills Nicotine 7 MG/24HR Transdermal Patch 24 Ho*14 Pat*0 Sig: APPLY 1PATCH TOPICALLY DAILYAuthorizing Provider: MOI PLUMMER User: HALEY PAYTON Prescriptions: Disp Refills Potassium Chloride Mayda ER 10 MEQ Oral Tab*30 Tab*5 Sig: Take 1 Tablet by mouth in the morning.Refused By: HALEY PAYTON for Refusal: Duplicate Request Furosemide 40 MG Oral Tablet (Lasix) 30 Tab*5 Sig: Take 1 Tablet by mouth in the morning.Refused By: HALEY PAYTON for Refusal: Duplicate Request Apixaban 5 MG Oral Tablet (Eliquis) 60 Tab*5 Sig: Take 1 Tablet by mouth in the morning and 1 Tablet before bedtime.Refused By: HALEY PAYTON for Refusal: Duplicate Request Ferrous Gluconate 324 (38 Fe)MG Oral Tabl*30 Tab*5 Sig: Take 1 Tablet by mouth daily with breakfast.Refused By: HALEY PAYTON for Refusal: Duplicate Request Pantoprazole Sodium 40 MG Oral Tablet Gaby*30 Tab*5 Sig:Take 1 Tablet by mouth in the morning.Refused By: HALEY PAYTON for Refusal: Duplicate Request documented in this encounter Plan of Treatment Upcoming Encounters Date Type Department Care Team (Late st Contact Info) Description 07/18/2023 11:45 AM EST Imaging Radiology [facility] [address] [place] [address] 07/26/2023 9:00 AM EST Procedure Only Endoscopy, [place] [address] [place] [address] Urvashi Wilson DO [address] [place] [address] 08/20/2023 9:00 AM EST Office Visit Pulmonary Medicine, [facility] [address] [place] [address] Huan Branham MD [address] [place] [address] Health Maintenance Due Date Last Done Comments DISCUSS TOBACCO CESSATION (REFER TO SMARTSET #7076) 1965 Hepatitis B (1 of 3 - [...] this encounter Medical Devices Implanted Type Area Motor Vehicle License Clerk Device Identifier Shelf Expiration Date Model / Serial / Lot Accolade Ii 127 Deg Sz 4 - [id number] Implanted:Qty: 1 on 12/05/2020 by Rodolfo Park DO at OR [facility] Right: Hip KANDICE : ORTHOPAEDICS 11/07/2025 [id number] / / [id number] documented as of this encounter Visit Diagnoses Diagnosis Tobacco use disorder documented in this encounter Advance Directives Latest Code Status [...] the patient have Health Care Power of Squad Sergeant? Yes, not currently available Care Teams Hearing Officer Relationship Specialty Start Date End Date Moi Plummer MD [address] [place] [address] PCP - General Internal Medicine 11/05/22 documented as of this encounter
--- OUTSIDE RECORDS SUMMARY | 2023-08-23 09:07 | External Medical Summary | Summary of Care ---
Author Name Unknown Organization [facility] Address [address] [place] [address] Phone [phone] Care Team Providers Care Nail Kegger Name Role Phone Roseann Plummer MD Primary Care Provider Reason for Visit * Reason Onset Date Comments Medication Refill 08/05/2023 Encounter Details Date Type Department Care Team (Late st Contact Info) Description 08/05/2023 Refill Family Practice [facility] [address] [employer] [address] [place] [address] Roseann Plummer MD [address] [place] [address] Tobacco use disorder Allergies Active Allergy Reactions Criticality Noted Date Comments Buspirone Rash 11/01/2022 documented as of this encounter (statuses as of 08/06/2023) Medications Medication Sig Dispensed Refills Start Date [...] not drive. 4 Tablet 0 06/10/2023 Active Ferrous Gluconate 324 (38 Fe) MG Oral Tablet Take 1 Tablet by mouth daily with breakfast. 30 Tablet 2 07/31/2023 Active Nicotine 7 MG/24HR Transdermal Patch 24 Hour (Nicoderm CQ)Indications:Tob acco use disorder apply 1 patch topically daily 14 Patch 0 08/02/2023 Active Hospital, Clinic, or Other Facility Administered Medication Ordered Dose Route Frequency Start Date End Date Status Albuterol Sulfate (Proventil) (2.5 MG/3ML) 0.083% inhalation solution 2.5 mgIndications:COPD, mild (HCC) 2.5 mg NEBULIZER PRN 10/11/2022 Active documented as of this encounter (statuses as of 08/06/2023) Active Problems Problem Noted Date Diagnosed Date [...] as of this encounter (statuses as of 08/06/2023) Resolved Problems Problem Noted Date Diagnosed Date Resolved Date Chronic kidney disease, stage 3a 10/08/2022 03/01/2023 Overview: Per CKD protocol Substance abuse 05/25/2022 03/01/2023 Food insecurity 03/06/2021 01/11/2022 Overview: Per [facility] Protocol documented as of this encounter (statuses as of 08/06/2023) Immunizations Name Administration Dates Next Due Pneumococcal [...] Notes * Telephone Encounter - Susan Hernandez [facility] - 08/06/2023 11:24 AM ESTRefused Prescriptions: Disp Refills Nicotine 7 MG/24HR Transdermal Patch 24 Ho*14 Pat*0 Sig: APPLY 1 PATCH TOPICALLY DAILYRefused By: SUSAN HERNANDEZ for Refusal: Too soon documented in this encounter Plan of Treatment Upcoming Encounters Date Type Department Care Team (Late st Contact Info) Description 08/08/2023 11:45 AM EST Imaging Radiology [facility] 1st [facility] 132 [facility] [place] [address] 08/20/2023 1:00 PM EST Office Visit Pulmonary Medicine, [address] [place] [address] Huan Branham MD [address] [facility] [address] Health Maintenance Due Date Last Done Comments DISCUSS TOBACCO CESSATION (REFER TO SMARTSET #2194) 1965 Hepatitis B (1 of 3 - [...] this encounter Medical Devices Implanted Type Area Stamp Mounter Device Identifier Shelf Expiration Date Model / Serial / Lot Accolade Ii 127 Deg Sz 4 - [id number] Implanted:Qty: 1 on 12/05/2020 by Rodolfo Park[facility]: Hip KANDICE : ORTHOPAEDICS 11/07/2025 [id number] / / [id number] documented as of this encounter Visit Diagnoses [...] the patient have Health Care Power of Box Brander? Yes, not currently available Care Teams Nail Kegger Relationship Specialty Start Date End Date Roseann Plummer MD [address] [place] [address] PCP - General Internal Medicine 11/05/22 documented as of this encounter
--- OUTSIDE RECORDS SUMMARY | 2023-08-23 09:07 | External Medical Summary | Summary of Care ---
Author Name Unknown Organization [facility] Address [address] [place] [address] Phone [phone] Care Team Providers Care Proposal Consultant Name Role Phone Roseann Plummer MD Primary Care Provider Reason for Visit * Reason Comments eRx-Medication Refill Encounter Details Date Type Department Care Team (Late st Contact Info) Description 08/01/2023 Refill Family Practice [facility] [address] [facility] [place] [address] Roseann Plummer MD [address] [facility] [place] [address] Tobacco use disorder Allergies Active Allergy Reactions Criticality Noted Date Comments Buspirone Rash 11/01/2022 documented as of this encounter (statuses as of 08/02/2023) Medications Medication Sig Dispensed Refills Start Date [...] 24 Hour (Nicoderm CQ)Indications:To bacco use disorder apply 1 patch topically daily 14 Patch 0 08/02/2023 Active Nicotine 7 MG/24HR Transdermal Patch 24 Hour (Nicoderm CQ)Indications:To bacco use disorder APPLY 1 PATCH TOPICALLY DAILY 14 Patch 0 07/16/2023 4 Discontinued Hospital, Clinic, or Other Facility Administered Medication Ordered Dose Route Frequency Start Date End Date Status Albuterol Sulfate (Proventil) (2.5 MG/3ML) 0.083% inhalation solution 2.5 mgIndications:COPD, mild (HCC) 2.5 mg NEBULIZER PRN 10/11/2022 Active documented as of this encounter (statuses as of 08/02/2023) Active Problems Problem Noted Date Diagnosed Date [...] as of this encounter (statuses as of 08/02/2023) Resolved Problems Problem Noted Date Diagnosed Date Resolved Date Chronic kidney disease, stage 3a 10/08/2022 03/01/2023 Overview: Per CKD protocol Substance abuse 05/25/2022 03/01/2023 Food insecurity 03/06/2021 01/11/2022 Overview: Per [facility] Protocol documented as of this encounter (statuses as of 08/02/2023) Immunizations Name Administration Dates Next Due Pneumococcal [...] Notes * Telephone Encounter - Rajesh Viramontes [facility] - 08/02/2023 3:36 PM ESTSigned Prescriptions: Disp Refills Nicotine 7 MG/24HR Transdermal Patch 24 Ho*14 Pat*0 Sig: apply 1patch topically dailyAuthorizing Provider: ROSEANN PLUMMER User: RAJESH VIRAMONTES documented in this encounter Plan of Treatment Upcoming Encounters Date Type Department Care Team (Late st Contact Info) Description 08/20/2023 1:00 PM EST Office Visit Pulmonary Medicine, [facility] 132 [facility] [place] [address] Huan Branham MD [address] [place] [address] Health Maintenance Due Date Last Done Comments DISCUSS TOBACCO CESSATION (REFER TO SMARTSET #2408) 1965 Hepatitis B (1 of 3 - [...] this encounter Medical Devices Implanted Type Area Document Improvement Specialist Device Identifier Shelf Expiration Date Model / Serial / Lot Accolade Ii 127 Deg Sz 4 - [id number] Implanted:Qty: 1 on 12/05/2020 by Rodolfo Park DO at OR [facility] Right: Hip KANDICE : ORTHOPAEDICS 11/07/2025 [id number] / / [id number] documented as of this encounter Visit Diagnoses [...] the patient have Health Care Power of Fitness Instructor? Yes, not currently available Care Teams Proposal Consultant Relationship Specialty Start Date End Date Roseann Plummer MD [address] [place] [address] PCP - General Internal Medicine 11/05/22 documented as of this encounter
--- OUTSIDE RECORDS SUMMARY | 2023-08-23 09:07 | External Medical Summary | Summary of Care ---
Author Name Unknown Organization [facility] Address [address] [place] [address] Phone [phone] Care Team Providers Care Bottle Feeder Name Role Phone Moi Plummer MD Primary Care Provider Reason for Visit * Reason Onset Date Comments Medication Refill 07/14/2023 Encounter Details Date Type Department Care Team (Late st Contact Info) Description 07/14/2023 Refill Family Practice [facility] [address] [place] [address] Moi Plummer MD [address] [place] [address] Tobacco use disorder Allergies Active Allergy Reactions [...] Notes * Telephone Encounter - Haley Pay[facility] - 07/16/2023 9:09 AM EST Signed Prescriptions: [...] Description 07/18/2023 11:45 AM EST Imaging Radiology [facility] 1st [facility] [address] [place] [address] 07/26/2023 9:00 AM EST Procedure Only Endoscopy, [facility] [address] [place] [address] Urvashi Wilson DO [address] [place] [address] 08/20/2023 9:00 AM EST Office Visit Pulmonary Medicine, [facility] [address] [place] [address] Huan Branham MD [address] [place] [address] Health Maintenance Due Date Last Done Comments DISCUSS TOBACCO CESSATION (REFER TO SMARTSET #2945) 1965 Hepatitis B (1 of 3 - [...] this encounter Medical Devices Implanted Type Area Veneer Drier Device Identifier Shelf Expiration Date Model / Serial / Lot Accolade Ii 127 Deg Sz 4 - [id number] Implanted:Qty: 1 on 12/05/2020 by Rodolfo Park DO at OR [facility] Right: Hip KANDICE : ORTHOPAEDICS 11/07/2025 [id number] / / [id number] documented as of this encounter Visit Diagnoses [...] the patient have Health Care Power of Impregnator Carbon Products? Yes, not currently available Care Teams Bottle Feeder Relationship Specialty Start Date End Date Moi Plummer MD [address] [place] [address] PCP - General Internal Medicine 11/05/22 documented as of this encounter
--- OUTSIDE RECORDS SUMMARY | 2023-08-23 09:07 | External Medical Summary | Summary of Care ---
Author Name Unknown Organization [facility] Address [address] [place] [address] Phone [phone] Care Team Providers Care Hospice Director Name Role Phone Roseann Plummer MD Primary Care Provider Reason for Visit * Reason Onset Date Comments Health Maintenance 08/13/2023 Encounter Details Date Type Department Care Team ([facility] st Contact Info) Description 08/13/2023 Telephone Family Practice [facility] [address] [facility] [place] [address] Roseann Plummer MD [address] [facility] [place], [place] [id number] Health Maintenance Allergies Active Allergy Reactions Criticality Noted Date Comments Buspirone Rash 11/01/2022 documented as of this encounter (statuses as of 08/13/2023) Medications Medication Sig Dispensed Refills Start Date [...] as of this encounter (statuses as of 08/13/2023) Active Problems Problem Noted Date Diagnosed Date [...] as of this encounter (statuses as of 08/13/2023) Resolved Problems Problem Noted Date Diagnosed Date Resolved Date Chronic kidney disease, stage 3a 10/08/2022 03/01/2023 Overview: Per CKD protocol Substance abuse 05/25/2022 03/01/2023 Food insecurity 03/06/2021 01/11/2022 Overview: Per [facility] Protocol documented as of this encounter (statuses as of 08/13/2023) Immunizations Name Administration Dates Next Due Pneumococcal [...] encounter Miscellaneous Notes * Telephone Encounter - Mechelle Garcia LPN - 08/13/2023 1:11 PM EST Care Gaps Comprehensive Care Outreach Last Office/Telemedicine Visit: 03/01/2023 (in office), Visit date not found (telemedicine) Next Office Visit: Visit date not found Hemoglobin AIC Results: Lab Results Component Value Date/Time HEMOGLOBIN A1C - VARSHAER 5.6 11/25/2020 12:32 PM Reviewed Health Maintenance below: Health Maintenance Topic Date Due Hepatitis B (1 of 3 - 3-dose series) Never done DISCUSS TOBACCO CESSATION (REFER TO SMARTSET #3291) Never done COVID-19 Vaccine (1) Never done Alpha-1 Antitrypsin Never done Cervical Cancer Screening Never done Zoster Vaccines (1 of 2) Never done Mammogram 02/28/2021 Ov Pap Mamm already scheduled Care Gap Outreach Action Taken: Left message documented in this encounter Plan of Treatment Upcoming Encounters Date Type Department Care Team (Late st Contact Info) Description 08/16/2023 9:45 AM EST Imaging Radiology [facility] 132 [facility] [place] [address] 08/20/2023 1:00 PM EST Office Visit Pulmonary Medicine, [address] [place] [address] Huan Branham MD [address] [place] [address] Health Maintenance Due Date Last Done Comments DISCUSS TOBACCO CESSATION (REFER TO SMARTSET #3291) 1965 Hepatitis B (1 of 3 - [...] this encounter Medical Devices Implanted Type Area Aquatic Habitat Biologist Device Identifier Shelf Expiration Date Model / Serial / Lot Accolade Ii 127 Deg Sz 4 - [id number] Implanted:Qty: 1 on 12/05/2020 by Rodolfo Park, at OR [facility] Right: Hip KANDICE : ORTHOPAEDICS 11/07/2025 [id number] / / [id number] documented as of this encounter Advance Directives [...] the patient have Health Care Power of Corporate Legal Secretary? Yes, not currently available Care Teams Hospice Director Relationship Specialty Start Date End Date Roseann Plummer MD [address] [place] [address] PCP - General Internal Medicine 11/05/22 documented as of this encounter
--- OUTSIDE RECORDS SUMMARY | 2023-08-23 09:08 | External Medical Summary | Summary of Care ---
Author Name Unknown Organization [facility] Address [address] [place] [address] Phone [phone] Care Team Providers Care Lactation Consultant Name Role Phone Joe Lockwood DO Primary Care Provider [phone] Encounter Details Date Type Department Care Team (Latest Contact Info) Description 09/13/2022 12:30 AM EST - 09/13/2022 4:19 PM EST Hospital Encounter Radiology Film File [address] [place] [address] Discharge Disposition: Home - Self Care Allergies Active Allergy Reactions Criticality Noted Date Comments Buspirone Rash 11/01/2022 documented as of this encounter (statuses as of 06/19/2023) Medications Medication Sig Dispensed Refills Start Date End Date Status methADONE 10 MG Tablet Take 1 Tablet by mouth once. 100mg daily 0 Active documented as of this encounter (statuses as of 06/19/2023) Active Problems Problem Noted Date Diagnosed Date [...] as of this encounter (statuses as of 06/19/2023) Resolved Problems Problem Noted Date Diagnosed Date Resolved Date Chronic kidney disease, stage 3a 10/08/2022 03/01/2023 Overview: Per CKD protocol Substance abuse 05/25/2022 03/01/2023 Food insecurity 03/06/2021 01/11/2022 Overview: Per [facility] Protocol documented as of this encounter (statuses as of 06/19/2023) Immunizations Name Administration Dates Next Due Pneumococcal Polysaccharide PPV23 (Pneumovax) SEASONAL INFLUENZA, PF, 6 M & Above, IM , (FLULAVAL or FLUZONE) 04/28/2020 Seasonal Influenza Virus Vac cine, Unspecified Formulation 04/28/2020 TDAP (age 10 and older)(Boostrix) 04/28/2020 documented as of this encounter Social History Tobacco Use Types Packs/Day Years Used Date Smoking Tobacco: Former Cigarettes 1 40 Q uit: 05/16/2022 Smokeless Tobacco: Never Alcohol Use Standard Drinks/Week Comments Not Currently [...] (15 years old or older) No 12/06/19 Cognitive Status Response Date of Assessm ent Because of a physical, menta l, or emotional condition, do you have serious difficulty concentrating, remembering, or making decisions? (5 years old or older) No 12/05/2020 documented as of this encounter Plan of Treatment Upcoming Encounters Date Type Department Care Team (Late st Contact Info) Description 06/27/2023 9:30 AM EST Procedure Only Endoscopy, [facility] [address] [place] [address] Tobin Silva MD [address] [place] [address] 07/18/2023 11:45 AM EST Imaging Radiology [facility] 1st [facility] [address] [place] [address] Health Maintenance Due Date Last Done Comments DISCUSS TOBACCO CESSATION (REFER TO SMARTSET #3351) 1965 Hepatitis B (1 of 3 - [...] this encounter Medical Devices Implanted Type Area Resin Painter Device Identifier Shelf Expiration Date Model / Serial / Lot Accolade Ii 127 Deg Sz 4 - [id number] Implanted:Qty: 1 on 12/05/2020 by Rodolfo Park, at OR [facility] Right: Hip KANDICE : ORTHOPAEDICS 11/07/2025 [id number] / / [id number] documented as of this encounter Procedures Procedure Name Priority Date/Time Associated Diagnosis Comments RADIOLOGY EXAM - GENERAL RAD (IMAGES ONLY,NO REPORT) Routine 09/13/2022 12:30 AM EST documented in this encounter Results * RADIOLOGY EXAM - GENERAL RAD (IMAGES ONLY,NO REPORT) (09/13/2022 12:30 AM EST) 09/13/2022 12:2 9 AM EST Narrative Scheduling, Silent - 06/18/2023 1:35 PM EST This is an imaging study not interpreted or resulted by a [facility] or [facility] contracted radiologist. Roseann Plummer MD RADIOLOGY (RAD GENERAL) documented in this encounter Advance Directives Latest [...] the patient have Health Care Power of Cost Reduction Engineer? Yes, not currently available Care Teams Lactation Consultant Relationship Specialty Start Date End Date Joe Lockwood DO PCP - General Family Medicine 02/25/20 11/04/22 documented as of this encounter
--- OUTSIDE RECORDS SUMMARY | 2023-08-23 09:08 | External Medical Summary | Summary of Care ---
Author Name Unknown Organization [facility] Address [address] [place] [address] Phone [phone] Care Team Providers Care Ui Architect Name Role Phone Joe Lockwood DO Primary Care Provider [phone] Encounter Details Date Type Department Care Team (Latest Contact Info) Description 05/16/2022 5:05 PM EDT - 05/16/2022 5:09 PM EDT Hospital Encounter Radiology Film File [address] [place] [address] Discharge Disposition: Home - Self [...] Used Date Smoking Tobacco: Every Day Cigarettes 1 40 Smokeless Tobacco: Never Comments:currently 6 -7 a da y Alcohol Use Standard Drinks/Week Comments Not Currently [...] 06/27/2023 9:30 AM EST Procedure Only Endoscopy, [facility] [address] [place] [address] Tobin Silva MD [address] [place] [address] 07/18/2023 11:45 AM EST Imaging Radiology [facility] 1st [facility] [address] [place] [address] Health Maintenance Due Date Last Done Comments DISCUSS TOBACCO CESSATION (REFER TO SMARTSET #4013) 1965 Hepatitis B (1 of 3 - [...] this encounter Medical Devices Implanted Type Area Media Relations Director Device Identifier Shelf Expiration Date Model / Serial / Lot Accolade Ii 127 Deg Sz 4 - [id number] Implanted:Qty: 1 on 12/05/2020 by Rodolfo Park, DO at OR [facility] Right: Hip KANDICE : ORTHOPAEDICS 11/07/2025 [id number] / / [id number] documented as of this encounter Procedures Procedure Name Priority Date/Time Associated Diagnosis Comments RADIOLOGY EXAM - CT (IMAGES ONLY, NO REPORT) Routine 05/16/2022 5:05 PM EDT documented in this encounter Results * RADIOLOGY EXAM - CT (IMAGES ONLY, NO REPORT) (05/16/2022 5:05 PM EDT) 05/16/2022 5:01 PM EDT Narrative Scheduling, Silent - 06/18/2023 11:43 AM EST This is an imaging study not interpreted or resulted by a [facility] or [employer] contracted radiologist. Roseann Plummer MD RAD CT documented in this encounter Advance Directives Latest [...] the patient have Health Care Power of Mosaic Tiler? Yes, not currently available Care Teams Ui Architect Relationship Specialty Start Date End Date Joe Lockwood DO PCP - General Family Medicine 02/25/20 11/04/22 documented as of this encounter
--- OUTSIDE RECORDS SUMMARY | 2023-08-23 09:08 | External Medical Summary | Summary of Care ---
Author Name Unknown Organization [facility] Address [address] [place] [address] Phone [phone] Care Team Providers Care Clerk General Name Role Phone Joe Lockwood DO Primary Care Provider [phone] Encounter Details Date Type Department Care Team (Latest Contact Info) Description 09/19/2022 8:50 AM EST - 09/19/2022 11:59 PM EST Hospital Encounter Radiology Film File [address] [place] [address] Discharge Disposition: Home - Self [...] 06/27/2023 9:30 AM EST Procedure Only Endoscopy, [facility] [address] [place] [address] Tobin Silva MD [address] [place] [address] 07/18/2023 11:45 AM EST Imaging Radiology [facility] 1st [facility] [address] [place] [address] Health Maintenance Due Date Last Done Comments DISCUSS TOBACCO CESSATION (REFER TO SMARTSET #3341) 1965 Hepatitis B (1 of 3 - [...] this encounter Medical Devices Implanted Type Area Parts Clerk Plant Maintenance Device Identifier Shelf Expiration Date Model / Serial / Lot Accolade Ii 127 Deg Sz 4 - [id number] Implanted:Qty: 1 on 12/05/2020 by Rodolfo Park, at OR [facility] Right: Hip KANDICE : ORTHOPAEDICS 11/07/2025 [id number] / / [id number] documented as of this encounter Procedures Procedure Name Priority Date/Time Associated Diagnosis Comments RADIOLOGY EXAM - GENERAL RAD (IMAGES ONLY,NO REPORT) Routine 09/19/2022 8:50 AM EST documented in this encounter Results * RADIOLOGY EXAM - GENERAL RAD (IMAGES ONLY,NO REPORT) (09/19/2022 8:50 AM EST) 09/19/2022 8:48 AM EST Narrative Scheduling, Silent - 06/18/2023 1:43 PM EST This is an imaging study not interpreted or resulted by a [facility] or [employer] contracted radiologist. Roseann Plummer MD RADIOLOGY (RAD [...] the patient have Health Care Power of Foreign Service Teacher? Yes, not currently available Care Teams Clerk General Relationship Specialty Start Date End Date Joe Lockwood DO PCP - General Family Medicine 02/25/20 11/04/22 documented as of this encounter
--- OUTSIDE RECORDS SUMMARY | 2023-08-23 09:08 | External Medical Summary | Summary of Care ---
Author Name Unknown Organization [facility] Address [address] [place] [address] Phone [phone] Care Team Providers Care Cardiologist Name Role Phone Joe Lockwood DO Primary Care Provider [phone] Encounter Details Date Type Department Care Team (Latest Contact Info) Description 05/16/2022 5:10 PM EDT - 05/16/2022 11:59 PM EDT Hospital Encounter Radiology Film File [address] [place] [address] Discharge Disposition: Home - Self [...] 06/27/2023 9:30 AM EST Procedure Only Endoscopy, [facility] [address] [place] [address] Tobin Silva MD [address] [address] 07/18/2023 11:45 AM EST Imaging Radiology [facility] 1st [facility] [address] [place] [address] Health Maintenance Due Date Last Done Comments DISCUSS TOBACCO CESSATION (REFER TO SMARTSET #7662) 1965 Hepatitis B (1 of 3 - [...] this encounter Medical Devices Implanted Type Area Marble Worker Device Identifier Shelf Expiration Date Model / Serial / Lot Accolade Ii 127 Deg Sz 4 - [id number] Implanted:Qty: 1 on 12/05/2020 by Rodolfo Park, DO at OR [facility] Right: Hip KANDICE : ORTHOPAEDICS 11/07/2025 [id number] / / [id number] documented as of this encounter Procedures Procedure Name Priority Date/Time Associated Diagnosis Comments RADIOLOGY EXAM - CT (IMAGES ONLY, NO REPORT) Routine 05/16/2022 5:10 PM EDT documented in this encounter Results * RADIOLOGY EXAM - CT (IMAGES ONLY, NO REPORT) (05/16/2022 5:10 PM EDT) 05/16/2022 5:01 PM EDT Narrative Scheduling, Silent - 06/18/2023 1:33 PM EST This is an imaging study not interpreted or resulted by a [facility] or [facility] contracted radiologist. Roseann Plummer MD RAD CT [...] the patient have Health Care Power of Echo Technician? Yes, not currently available Care Teams Cardiologist Relationship Specialty Start Date End Date Joe Lockwood DO PCP - General Family Medicine 02/25/20 11/04/22 documented as of this encounter
--- OUTSIDE RECORDS SUMMARY | 2023-08-23 09:08 | External Medical Summary | Summary of Care ---
Author Name Unknown Organization [facility] Address [address] [place] [address] Phone [phone] Care Team Providers Care Solicitor Patent Name Role Phone Joe Lockwood DO Primary Care Provider [phone] Encounter Details Date Type Department Care Team (Latest Contact Info) Description 09/17/2022 8:05 PM EST - 09/17/2022 11:59 PM EST Hospital Encounter Radiology Film File [address] [place] [address] Discharge Disposition: Home - Self [...] 06/27/2023 9:30 AM EST Procedure Only Endoscopy, [facility] [address] [address] Tobin Silva MD [address] [address] 07/18/2023 11:45 AM EST Imaging Radiology [facility] 1st [facility] [address] [address] Health Maintenance Due Date Last Done Comments DISCUSS TOBACCO CESSATION (REFER TO SMARTSET #4960) 1965 Hepatitis B (1 of 3 - [...] this encounter Medical Devices Implanted Type Area Material Expeditor Device Identifier Shelf Expiration Date Model / Serial / Lot Accolade Ii 127 Deg Sz 4 - [id number] Implanted:Qty: 1 on 12/05/2020 by Rodolfo Park, at OR [facility] Right: Hip KANDICE : ORTHOPAEDICS 11/07/2025 [id number] / / [id number] documented as of this encounter Procedures Procedure Name Priority Date/Time Associated Diagnosis Comments RADIOLOGY EXAM - US (IMAGES ONLY, NO REPORT) Routine 09/17/2022 8:05 PM EST documented in this encounter Results * RADIOLOGY EXAM - US (IMAGES ONLY, NO REPORT) (09/17/2022 8:05 PM EST) 09/17/2022 8:05 PM EST Narrative Scheduling, Silent - 06/18/2023 11:49 AM EST This is an imaging study not interpreted or resulted by a [facility] or [facility] contracted radiologist. Roseann Plummer MD RAD ULTRASOUND documented in this encounter Advance Directives Latest [...] the patient have Health Care Power of Application Support Consultant? Yes, not currently available Care Teams Solicitor Patent Relationship Specialty Start Date End Date Joe Lockwood DO PCP - General Family Medicine 02/25/20 11/04/22 documented as of this encounter
--- OUTSIDE RECORDS SUMMARY | 2023-08-23 09:08 | External Medical Summary | Summary of Care ---
Author Name Unknown Organization [facility] Address [address] [facility] [place] [address] Phone [phone] Care Team Providers Care Hand Silvering Supervisor Name Role Phone Roseann Plummer MD Primary Care Provider Encounter Details Date Type Department Care Team ([facility] st Contact Info) Description 07/08/2023 Orders Only STAIR LUNG NODULE [address], [place] [id number] Lanny Barnes CRNP [address] [place] [address] Lung nodules*; Tobacco use Allergies Active Allergy Reactions Criticality Noted Date Comments Buspirone Rash 11/01/2022 documented as of this encounter (statuses as of 07/08/2023) Medications Medication Sig Dispensed Refills Start Date [...] PATCH TOPICALLY DAILY 14 Patch 0 06/26/2023 Active Hospital, Clinic, or Other Facility Administered Medication Ordered Dose Route Frequency Start Date End Date Status Albuterol Sulfate (Proventil) (2.5 MG/3ML) 0.083% inhalation solution 2.5 mgIndications:COPD, mild (HCC) 2.5 mg NEBULIZER PRN 10/11/2022 Active documented as of this encounter (statuses as of 07/08/2023) Active Problems Problem Noted Date Diagnosed Date [...] as of this encounter (statuses as of 07/08/2023) Resolved Problems Problem Noted Date Diagnosed Date Resolved Date Chronic kidney disease, stage 3a 10/08/2022 03/01/2023 Overview: Per CKD protocol Substance abuse 05/25/2022 03/01/2023 Food insecurity 03/06/2021 01/11/2022 Overview: Per [facility] Protocol documented as of this encounter (statuses as of 07/08/2023) Immunizations Name Administration Dates Next Due Pneumococcal [...] Description 07/18/2023 11:45 AM EST Imaging Radiology [facility] 1st [facility] [address] [place] [address] 08/20/2023 9:00 AM EST Office Visit Pulmonary Medicine, [facility] [address] [address] Huan Branham MD [address] [place] [address] 10/30/2023 9:00 AM EDT Procedure Only Endoscopy, [facility] [address] [place] [address] [address] Louis Tuttle MD [address] [place] [address] Health Maintenance Due Date Last Done Comments DISCUSS TOBACCO CESSATION (REFER TO SMARTSET #4831) 1965 Hepatitis B (1 of 3 - [...] this encounter Medical Devices Implanted Type Area Bell Hole Digger Device Identifier Shelf Expiration Date Model / Serial / Lot Accolade Ii 127 Deg Sz 4 - [id number] Implanted:Qty: 1 on 12/05/2020 by Rodolfo Park, at OR [facility] Right: Hip KANDICE : ORTHOPAEDICS 11/07/2025 [id number] / / [id number] documented as of this encounter Visit Diagnoses Diagnosis Lung nodules- Primary Other nonspecific abnormal finding of lung field Tobacco use Tobacco use disorder documented in this encounter [...] the patient have Health Care Power of Log Chain Worker? Yes, not currently available Care Teams Hand Silvering Supervisor Relationship Specialty Start Date End Date Roseann Plummer MD [address] [facility] [place] [address] PCP - General Internal Medicine 11/05/22 documented as of this encounter
--- OUTSIDE RECORDS SUMMARY | 2023-08-23 09:08 | External Medical Summary | Summary of Care ---
Author Name Unknown Organization [facility] Address [address] [place] [address] Phone [phone] Care Team Providers Care Sales Superintendent Name Role Phone Joe Lockwood DO Primary Care Provider [phone] Encounter Details Date Type Department Care Team (Latest Contact Info) Description 09/13/2022 4:20 PM EST - 09/13/2022 11:59 PM EST Hospital Encounter Radiology Film File [address] [place] [address] Discharge Disposition: Home - Self [...] 9:30 AM EST Procedure Only Endoscopy, [facility] [address] [address] Tobin Silva MD [address] [address] 07/18/2023 11:45 AM EST Imaging Radiology [facility] 1st [facility] [address] [address] Health Maintenance Due Date Last Done Comments DISCUSS TOBACCO CESSATION (REFER TO SMARTSET #9597) 1965 Hepatitis B (1 of 3 - [...] this encounter Medical Devices Implanted Type Area Roll Bucker Device Identifier Shelf Expiration Date Model / Serial / Lot Accolade Ii 127 Deg Sz 4 - [id number] Implanted:Qty: 1 on 12/05/2020 by Rodolfo Park, at OR [facility] Right: Hip KANDICE : ORTHOPAEDICS 11/07/2025 [id number] / / [id number] documented as of this encounter Procedures Procedure Name Priority Date/Time Associated Diagnosis Comments RADIOLOGY EXAM - CT (IMAGES ONLY, NO REPORT) Routine 09/13/2022 4:20 PM EST documented in this encounter Results * RADIOLOGY EXAM - CT (IMAGES ONLY, NO REPORT) (09/13/2022 4:20 PM EST) 09/13/2022 4:20 PM EST Narrative Scheduling, Silent - 06/18/2023 1:39 PM EST This is an imaging study not interpreted or resulted by a [facility] or [facility] contracted radiologist. Roseann Plummer MD RAD CT [...] the patient have Health Care Power of Scrap Handler? Yes, not currently available Care Teams Sales Superintendent Relationship Specialty Start Date End Date Joe Lockwood DO PCP - General Family Medicine 02/25/20 11/04/22 documented as of this encounter
--- OUTSIDE RECORDS SUMMARY | 2023-08-23 09:08 | External Medical Summary | Summary of Care ---
Author Name Unknown Organization [facility] Address [address] [place] [address] Phone [phone] Care Team Providers Care Back Shoe Cutter Name Role Phone Roseann Plummer MD Primary Care Provider Reason for Visit * Reason Comments eRx-Medication Refill Encounter Details Date Type Department Care Team (Late st Contact Info) Description 06/25/2023 Refill Family Practice [facility] [address] [facility] [place] [address] Roseann Plummer MD [address] [facility] [place] [place] [place] [address] Tobacco use disorder Allergies Active Allergy Reactions Criticality Noted Date Comments Buspirone Rash 11/01/2022 documented as of this encounter (statuses as of 06/26/2023) Medications Medication Sig Dispensed Refills Start Date [...] TOPICALLY DAILY 14 Patch 0 06/26/2023 Active Nicotine 7 MG/24HR Transdermal Patch 24 Hour (Nicoderm CQ)Indications:To bacco use disorder Place 1 Patch topically on the skin daily. 14 Patch 0 06/14/2023 Discontinued Hospital, Clinic, or Other Facility Administered Medication Ordered Dose Route Frequency Start Date End Date Status Albuterol Sulfate (Proventil) (2.5 MG/3ML) 0.083% inhalation solution 2.5 mgIndications:COPD, mild (HCC) 2.5 mg NEBULIZER PRN 10/11/2022 Active documented as of this encounter (statuses as of 06/26/2023) Active Problems Problem Noted Date Diagnosed Date [...] as of this encounter (statuses as of 06/26/2023) Resolved Problems Problem Noted Date Diagnosed Date Resolved Date Chronic kidney disease, stage 3a 10/08/2022 03/01/2023 Overview: Per CKD protocol Substance abuse 05/25/2022 03/01/2023 Food insecurity 03/06/2021 01/11/2022 Overview: Per [facility] Protocol documented as of this encounter (statuses as of 06/26/2023) Immunizations Name Administration Dates Next Due Pneumococcal [...] encounter Miscellaneous Notes * Telephone Encounter - Alejandra Garibay RP - 06/26/2023 5:37 AM ESTSigned Prescriptions: Disp Refills Nicotine 7 MG/24HR Transdermal Patch 24 Ho*14 Pat*0 Sig: APPLY 1PATCH TOPICALLY DAILYAuthorizing Provider: ROSEANN PLUMMER User: ALEJANDRA GARIBAY---- documented in this encounter Plan of Treatment Upcoming Encounters Date Type Department Care Team (Late st Contact Info) Description 06/27/2023 9:30 AM EST Procedure Only Endoscopy, [facility] [address] [address] Tobin Silva MD [address] [place] [address] 07/18/2023 11:45 AM EST Imaging Radiology [address] [place] [address] [address] Health Maintenance Due Date Last Done Comments DISCUSS TOBACCO CESSATION (REFER TO SMARTSET #2750) 1965 Hepatitis B (1 of 3 - [...] this encounter Medical Devices Implanted Type Area Psych Assistant Device Identifier Shelf Expiration Date Model / Serial / Lot Accolade Ii 127 Deg Sz 4 - [id number] Implanted:Qty: 1 on 12/05/2020 by Rodolfo Park, at OR [facility] Right: Hip KANDICE : ORTHOPAEDICS 11/07/2025 [id number] / / [id number] documented as of this encounter Visit Diagnoses [...] the patient have Health Care Power of Panel Machine Setter? Yes, not currently available Care Teams Back Shoe Cutter Relationship Specialty Start Date End Date Roseann Plummer MD [address] [place] [address] PCP - General Internal Medicine 11/05/22 documented as of this encounter
--- OUTSIDE RECORDS SUMMARY | 2023-08-23 09:08 | External Medical Summary | Summary of Care ---
Author Name Unknown Organization [facility] Address [address] [place] [address] Phone [phone] Care Team Providers Care Sales Effectiveness Manager Name Role Phone Roseann Plummer MD Primary Care Provider Reason for Visit * Reason Onset Date Comments Medication Refill 07/11/2023 Encounter Details Date Type Department Care Team (Late st Contact Info) Description 07/11/2023 Refill Family Practice [facility] [address] [facility] [place] [address] Joe Lockwood, DO [address] [place] [address] Mood disorder (HCC) Allergies Active Allergy Reactions Criticality Noted Date Comments Buspirone Rash 11/01/2022 documented as of this encounter (statuses as of 07/11/2023) Medications Medication Sig Dispensed Refills Start Date [...] as of this encounter (statuses as of 07/11/2023) Active Problems Problem Noted Date Diagnosed Date [...] as of this encounter (statuses as of 07/11/2023) Resolved Problems Problem Noted Date Diagnosed Date Resolved Date Chronic kidney disease, stage 3a 10/08/2022 03/01/2023 Overview: Per CKD protocol Substance abuse 05/25/2022 03/01/2023 Food insecurity 03/06/2021 01/11/2022 Overview: Per [facility] Protocol documented as of this encounter (statuses as of 07/11/2023) Immunizations Name Administration Dates Next Due Pneumococcal [...] Description 07/18/2023 11:45 AM EST Imaging Radiology [facility] 1st [facility] [address] [place] [address] 07/26/2023 9:00 AM EST Procedure Only Endoscopy, [facility] [address] [place] [address] Urvashi Wilson DO [address] [place] [address] 08/20/2023 9:00 AM EST Office Visit Pulmonary Medicine, [facility] [address] [place] [address] Huan Branham MD [address] [place] [address] Health Maintenance Due Date Last Done Comments DISCUSS TOBACCO CESSATION (REFER TO SMARTSET #6256) 1965 Hepatitis B (1 of 3 - [...] this encounter Medical Devices Implanted Type Area Social Work Nurse Device Identifier Shelf Expiration Date Model / Serial / Lot Accolade Ii 127 Deg Sz 4 - [id number] Implanted:Qty: 1 on 12/05/2020 by Rodolfo Park, at OR [facility] Right: Hip KANDICE : ORTHOPAEDICS 11/07/2025 [id number] / / [id number] documented as of this encounter Visit Diagnoses Diagnosis Mood disorder (HCC) Unspecified episodic mood disorder documented in this encounter Advance Directives [...] the patient have Health Care Power of Planishing Hammer Operator? Yes, not currently available Care Teams Sales Effectiveness Manager Relationship Specialty Start Date End Date Roseann Plummer MD [address] [address] PCP - General Internal Medicine 11/05/22 documented as of this encounter
--- OUTSIDE RECORDS SUMMARY | 2023-08-23 09:08 | External Medical Summary | Summary of Care ---
Author Name Unknown Organization [facility] Address [address] [place] [address] Phone [phone] Care Team Providers Care Junior Account Manager Name Role Phone Joe Lockwood DO Primary Care Provider [phone] Encounter Details Date Type Department Care Team (Latest Contact Info) Description 09/15/2022 7:45 AM EST - 09/15/2022 11:59 PM EST Hospital Encounter Radiology Film File [address] [place] [address] Discharge Disposition: Home - Self [...] 06/27/2023 9:30 AM EST Procedure Only Endoscopy, [facility] [address] [address] Tobin Silva MD [address] [address] 07/18/2023 11:45 AM EST Imaging Radiology [facility] 1st [facility] [address] [address] Health Maintenance Due Date Last Done Comments DISCUSS TOBACCO CESSATION (REFER TO SMARTSET #5202) 1965 Hepatitis B (1 of 3 - [...] this encounter Medical Devices Implanted Type Area Java Analyst Device Identifier Shelf Expiration Date Model / Serial / Lot Accolade Ii 127 Deg Sz 4 - [id number] Implanted:Qty: 1 on 12/05/2020 by Rodolfo Park, at OR [facility] Right: Hip KANDICE : ORTHOPAEDICS 11/07/2025 [id number] / / [id number] documented as of this encounter Procedures Procedure Name Priority Date/Time Associated Diagnosis Comments RADIOLOGY EXAM - GENERAL RAD (IMAGES ONLY,NO REPORT) Routine 09/15/2022 7:45 AM EST documented in this encounter Results * RADIOLOGY EXAM - GENERAL RAD (IMAGES ONLY,NO REPORT) (09/15/2022 7:45 AM EST) 09/15/2022 7:45 AM EST Narrative Scheduling, Silent - 06/18/2023 1:28 PM EST This is an imaging study not interpreted or resulted by a [facility] or [facility] contracted radiologist. Roseann Plummer MD RADIOLOGY (RAD [...] the patient have Health Care Power of Onyx Chip Terrazzo Worker? Yes, not currently available Care Teams Junior Account Manager Relationship Specialty Start Date End Date Joe Lockwood DO PCP - General Family Medicine 02/25/20 11/04/22 documented as of this encounter
--- OUTSIDE RECORDS SUMMARY | 2023-08-23 09:08 | External Medical Summary | Summary of Care ---
Author Name Unknown Organization [facility] Address [address] [place] [address] Phone [phone] Care Team Providers Care Salvage Engineering Technician Name Role Phone Joe Lockwood DO Primary Care Provider [phone] Encounter Details Date Type Department Care Team (Latest Contact Info) Description 10/09/2022 4:20 PM EDT - 10/09/2022 11:59 PM EDT Hospital Encounter Radiology Film File [address] [place] [address] Discharge Disposition: Home - Self [...] Used Date Smoking Tobacco: Every Day Cigarettes 0.3 40 Last attempted to quit: 05/16/2022 Smokeless Tobacco: Never Comments:2 a day Alcohol Use Standard Drinks/Week Comments Not Currently [...] 06/27/2023 9:30 AM EST Procedure Only Endoscopy, [facility] [address] [address] Tobin Silva MD [address] [address] 07/18/2023 11:45 AM EST Imaging Radiology [address] [address] Health Maintenance Due Date Last Done Comments DISCUSS TOBACCO CESSATION (REFER TO SMARTSET #2559) 1965 Hepatitis B (1 of 3 - [...] this encounter Medical Devices Implanted Type Area Clinical Administrative Coordinator Device Identifier Shelf Expiration Date Model / Serial / Lot Accolade Ii 127 Deg Sz 4 - [id number] Implanted:Qty: 1 on 12/05/2020 by Rodolfo Park, DO at OR [facility] Right: Hip KANDICE : ORTHOPAEDICS 11/07/2025 [id number] / / [id number] documented as of this encounter Procedures Procedure Name Priority Date/Time Associated Diagnosis Comments RADIOLOGY EXAM - GENERAL RAD (IMAGES ONLY,NO REPORT) Routine 10/09/2022 4:20 PM EDT documented in this encounter Results * RADIOLOGY EXAM - GENERAL RAD (IMAGES ONLY,NO REPORT) (10/09/2022 4:20 PM EDT) 10/09/2022 4:16 PM EDT Narrative Scheduling, Silent - 06/18/2023 1:47 PM EST This is an imaging study not interpreted or resulted by a [facility] or [employer] contracted radiologist. Roseann Plummer MD RADIOLOGY (RAD [...] the patient have Health Care Power of Job Foreman? Yes, not currently available Care Teams Salvage Engineering Technician Relationship Specialty Start Date End Date Joe Lockwood DO PCP - General Family Medicine 02/25/20 11/04/22 documented as of this encounter
--- NOTE | 2023-08-23 09:09 | Emergency Department Note ---
Impression & Plan Pneumonia, COPD (chronic obstructive pulmonary disease), Acute hypoxemic respiratory failure, Parainfluenza infection ED Provider Note NAME: CYNTHIA SIMON AGE: 58 SEX: F : 1965 ARRIVES VIA: Walk-In INFORMANT: Patient, ED PROVIDER(S): Jamar Sutherland DO CHIEF COMPLAINT: Shortness of breath HPI: The patient is a 58-year-old female who presented to the emergency department for an evaluation of difficulty breathing. The patient states that she has had fever and difficulty breathing over the course the last few days. She has noticed a cough. The patient has a history of COPD. She also has chronic pain and she went for her methadone today. When she went for the methadone they were noticed that her vital signs were abnormal and she had low oxygen saturation. She was sent to the emergency department for further evaluation. The patient also has a history of pulmonary hypertension as well as pulmonary embolism. She does take Eliquis. She states that she has been compliant with her outpatient medications. She is also been using her albuterol with only minimal relief of her symptoms. ROS: See above HPI for pertinent positives & negatives. A total of 10 systems reviewed and were otherwise negative. PAST MEDICAL HISTORY: See Below PAST SURGICAL HISTORY: See Below FAMILY HISTORY: See Below SOCIAL HISTORY: See Below HOME MEDICATIONS: See Below ALLERGIES: See Below VITALS: See Below PHYSICAL EXAMINATION: GENERAL: The patient is awake and alert. She is somewhat anxious. She was evaluated in the triage area. EYES: The conjunctivae are clear. The pupils are round and reactive. EARS, NOSE, MOUTH AND THROAT: The nose is without any evidence of any deformity. NECK: The neck is nontender and supple. RESPIRATORY: Diminished breath sounds are noted throughout. There is expiratory wheezing both upper lung phillips. There was conversational dyspnea noted. CARDIOVASCULAR: Regular rate and rhythm noted there no murmurs rubs or gallops normal S1 normal S2. GASTROINTESTINAL: The abdomen is soft. Abdomen is nontender. MUSCULOSKELETAL/EXTREMITIES: There is no evidence of gross deformity full range of motion is noted in the hips and shoulders. SKIN: There is no obvious evidence of any rash. There are no petechiae, pallor or cyanosis noted. NEUROLOGIC: Patient is awake alert and oriented x3 MEDICAL DECISION MAKING: The patient is a 58-year-old female who presented to the emergency department for an evaluation of difficulty breathing. The patient does have a history of chronic pain and went to her methadone visit this morning and was found to have oxygen saturation in the 70s. She was sent to the emergency department for further evaluation. The patient was treated with IV fluids and IV antibiotics in the emergency department. She did complain of a fever as well as cough. I do feel chest x-ray was consistent more with pneumonia. The patient was found to have an elevation in white blood cell count. She also found to have elevation in her inflammatory markers. She was treated with bronchodilator therapy as well as IV steroids. I discussed patient's laboratory and radiographic studies with her. She was given her morning dose of Eliquis as she missed that dose this morning. She was still hypoxic and requiring significant oxygen supplementation. This reason I [facility] have agreed to evaluate the patient in the emergency department for further management and disposition. The patient was given a small fluid bolus rather than a sepsis fluid bolus because of the questionable pulmonary edema and noted by the radiologist as well as the patient's history of pulmonary hypertension. Triage Nursing notes reviewed. Prior medical records reviewed Vital Signs: reviewed and remarkable for hypoxia and tachycardia. Differential diagnosis: Reactive airway disease, pneumonia, pneumothorax, COPD, CHF, infections, cardiac ischemia, pulmonary embolism, musculoskeletal, gastrointestinal, as well as other pathologies. ER treatment provided: See below Diagnostics interpreted by me: ECG: EKG was obtained in the emergency department. My interpretation is normal sinus rhythm at [address] segment depressions were noted in the inferior and low lateral leads. This was compared to a tracing from October 09, 2022. The ST depressions in the inferior leads appears increased compared to previous otherwise no changes were noted. Cardiac Monitoring: An order was placed for continuous cardiac monitoring. The monitor shows a rate of 110 bpm with sinus tachycardia. Laboratory studies: As stated above and show below. Imaging studies: See below. Radiographic imaging was reviewed by myself Consultation(s): I discussed this case with the ED who [facility] ED COURSE: Procedures: none Critical Care: I have personally spent greater than 45 minutes of critical care time in the direct management of this patient. This includes bedside care, interpretation of diagnostic studies, and testing, discussion with consultants, patient, and family members, and other required patient management activities. This 45 minutes is in excess of all separately billable procedures. Past Med/Surg History Medical History (Updated 08/23/23 @ 11:52 by Jamar Sutherland DO) Methadone maintenance therapy patient GERD (gastroesophageal reflux disease) HTN (hypertension) History of endocarditis --- r/t IV drug use. S/P transesophageal echocardiogram ([facility]) Lung nodule Constipation Anxiety Aspiration pneumonia 08/2022 from vomitting -- reports she "passed out and vomitted while she was incoherent" On home oxygen therapy 2 - 2.5 lpm via n/c daily Pulmonary embolism dx 08/2022 - unknown the cause. treated with anticoagulants. Thrombocytopenia Hepatitis C test positive pt denies. Anemia Recurrent major depressive disorder COPD (chronic obstructive pulmonary disease) Surgical History Status post total hip replacement, right Family History Other Family history non-contributory No family history of adverse response to anesthesia Social History Smoking Status: Never smoker Tobacco Type: Cigarettes Cigarettes Per Day: 6 cigs daily; Second Hand Exposure: Yes; Do You Dip or Chew Tobacco: No; Hx Alcohol Use: Yes Alcohol type: beer Hx Substance Use: Yes Last Used Substance Other:: IV drug use - currently on methadone Preferred Language: Samoan Communication Ability: Effective Warehouse Assistant Required: No Beliefs That Will Affect Care: None Current Living Situation: Alone Feels Safe at Home: Yes Assistive Devices: Denture - Upper, Denture - Lower, Glasses and Oxygen - Continuous Allergies Allergies Allergy/AdvReac Type Severity Reaction Status Date / Time olive oil AdvReac Unknown reacts Verified 06/25/23 12:11 with methadone Home Meds Home Medications Medication Instructions Recorded Confirmed amlodipine 10 mg tablet 10 mg PO QAM 05/16/22 08/23/23 duloxetine 30 mg capsule,delayed 30 mg PO QAM 05/16/22 08/23/23 release albuterol sulfate 90 mcg/actuation 2 puff inhalation Q6H PRN Cough 09/12/22 08/23/23 aerosol inhaler diphenhydramine HCl 25 mg capsule 0 mg PO HS PRN SLEEP/ITCHING 09/13/22 08/23/23 (Benadryl) Beet Root 0 tab PO TID 06/25/23 08/23/23 Om Mushroom 0 cap PO BID 06/25/23 08/23/23 cyanocobalamin (vitamin B-12) 100 0 mcg PO 3XWK 06/25/23 08/23/23 mcg tablet (Vitamin B-12) methadone 10 mg/5 mL oral solution 100 mg PO QAM 06/25/23 08/23/23 nicotine 7 mg/24 hr daily 0 patch transdermal DAILY 06/25/23 08/23/23 transdermal patch pantoprazole 40 mg tablet,delayed 40 mg PO QAM 06/25/23 08/23/23 release potassium chloride 10 mEq 10 meq PO QAM 06/25/23 08/23/23 tablet,extended release (K-Tab) bisacodyl 5 mg tablet 0 mg PO HS PRN Constipation 08/23/23 08/23/23 melatonin 3 mg tablet 0 mg PO HS PRN sleep 08/23/23 08/23/23 metoprolol succinate 25 mg 25 mg PO BID 08/23/23 08/23/23 tablet,extended release 24 hr polyethylene glycol 3350 17 gram 0 g PO DAILY PRN laxative effect 08/23/23 08/23/23 oral powder packet (Miralax) Previous Rx's Medication Instructions Recorded apixaban 5 mg tablet (Eliquis) 5 mg PO BID #63 tabs 09/21/22 ferrous gluconate 324 mg (38 mg 324 mg PO QAM #30 tabs 09/21/22 iron) tablet furosemide 40 mg tablet 40 mg PO QAM #30 tabs 09/21/22 Results & Data (ED) Vital Signs Vital Signs - 24 hr 08/23/23 08:53 08/23/23 09:05 08/23/23 09:13 Temperature 37.0 C Temperature Source Oral Pulse Rate 90 90 Pulse Rate [Apical] Pulse Rate from SpO2 Sensor 90 Respiratory Rate 26 H 23 Blood Pressure 121/73 Blood Pressure [Right Arm] Blood Pressure Mean 89 Blood Pressure Mean [Right Arm] Blood Pressure Position Sitting Pulse Oximetry 70 L 80 L 88 L Oxygen Delivery Method Nasal Cannula Nasal Cannula Oxymask Oxygen Flow Rate 2 6 Sepsis Recent Fever Within 48 Hours No Sepsis New/Unexplained Change in Mental Status No Sepsis Action Taken by Nursing No Action Required Oxygen Flow Rate - Titration 10 Pulse Oximetry Post Tiitration 88 L 08/23/23 09:14 08/23/23 09:14 08/23/23 09:14 Temperature Temperature Source Pulse Rate 90 88 Pulse Rate [Apical] Pulse Rate from SpO2 Sensor 88 Respiratory Rate 25 H Blood Pressure 137/80 Blood Pressure [Right Arm] Blood Pressure Mean 108 Blood Pressure Mean [Right Arm] Blood Pressure Position Pulse Oximetry 88 L Oxygen Delivery Method Oxygen Flow Rate Sepsis Recent Fever Within 48 Hours Sepsis New/Unexplained Change in Mental Status Sepsis Action Taken by Nursing Oxygen Flow Rate - Titration Pulse Oximetry Post Tiitration 08/23/23 09:30 08/23/23 09:30 08/23/23 09:35 Temperature Temperature Source Pulse Rate 97 H Pulse Rate [Apical] 97 H Pulse Rate from SpO2 Sensor 98 H Respiratory Rate 19 26 H Blood Pressure 108/84 Blood Pressure [Right Arm] 108/84 Blood Pressure Mean 98 Blood Pressure Mean [Right Arm] 92 Blood Pressure Position Pulse Oximetry 88 L 88 L Oxygen Delivery Method Nebulizer Oxygen Flow Rate 10 Sepsis Recent Fever Within 48 Hours Sepsis New/Unexplained Change in Mental Status Sepsis Action Taken by Nursing Oxygen Flow Rate - Titration Pulse Oximetry Post Tiitration 08/23/23 09:36 08/23/23 10:08 08/23/23 10:09 Temperature Temperature Source Pulse Rate Pulse Rate [Apical] Pulse Rate from SpO2 Sensor Respiratory Rate Blood Pressure Blood Pressure [Right Arm] Blood Pressure Mean Blood Pressure Mean [Right Arm] Blood Pressure Position Pulse Oximetry 88 L 87 L 84 L Oxygen Delivery Method Nebulizer Oxymask Nebulizer Oxymask Oxygen Flow Rate 10 10 10 Sepsis Recent Fever Within 48 Hours Sepsis New/Unexplained Change in Mental Status Sepsis Action Taken by Nursing Oxygen Flow Rate - Titration 10 13 Pulse Oximetry Post Tiitration 85 L 87 L 08/23/23 10:12 08/23/23 10:35 08/23/23 10:45 Temperature Temperature Source Pulse Rate 119 H 105 H Pulse Rate [Apical] 113 H Pulse Rate from SpO2 Sensor 118 H 105 H Respiratory Rate 23 28 H 26 H Blood Pressure Blood Pressure [Right Arm] 119/85 Blood Pressure Mean Blood Pressure Mean [Right Arm] 96 Blood Pressure Position Pulse Oximetry 91 89 L 90 Oxygen Delivery Method Oxymask Oxygen Flow Rate 13 Sepsis Recent Fever Within 48 Hours Sepsis New/Unexplained Change in Mental Status Sepsis Action Taken by Nursing Oxygen Flow Rate - Titration Pulse Oximetry Post Tiitration 08/23/23 11:00 08/23/23 11:00 08/23/23 11:26 Temperature Temperature Source Pulse Rate 93 H Pulse Rate [Apical] Pulse Rate from SpO2 Sensor 93 H Respiratory Rate 23 Blood Pressure 116/60 Blood Pressure [Right Arm] Blood Pressure Mean 73 Blood Pressure Mean [Right Arm] Blood Pressure Position Pulse Oximetry 89 L 91 Oxygen Delivery Method Oxymask Oxymask Oxygen Flow Rate 13 13 Sepsis Recent Fever Within 48 Hours Sepsis New/Unexplained Change in Mental Status Sepsis Action Taken by Nursing Oxygen Flow Rate - Titration Pulse Oximetry Post Tiitration Home Medications Current Medication List: was personally reviewed by me Laboratory Data Attestation: I reviewed the patient's lab results. 08/23/23 09:30 08/23/23 09:30 Lab Results 08/23/23 08/23/23 08/23/23 Range/Units 09:30 10:20 Unknown WBC 14.82 H (4.8-10.8) K/ul RBC 4.03 L (4.20-5.40) M/uL Hgb 13.3 (12.0-16.0) g/dl Hct 40.0 (37.0-47.0) % MCV 99.3 (80.0-100.0) fL MCH 33.0 (25.0-34.0) pg MCHC 33.3 (32.0-36.0) g/dL RDW Std Deviation 46.3 (36.4-46.3) fL RDW Coeff of Cee 12.8 (11.5-14.5) % Plt Count 84 L (130-400) K/uL MPV 11.0 (9.4-12.4) fL Immature Gran % (Auto) 0.7 % Neut % (Auto) 89.4 % Lymph % (Auto) 3.2 % [place] % (Auto) 6.4 % Eos % (Auto) 0.1 % Baso % (Auto) 0.2 % Neut # (Auto) 13.26 H (1.40-6.50) K/uL Lymph # (Auto) 0.47 L (1.20-3.40) K/uL [place] # (Auto) 0.95 H (0.11-0.59) K/uL Eos # (Auto) 0.01 (0.00-0.50) K/uL Baso # (Auto) 0.03 (0.00-0.20) K/uL Immature Gran # (Auto) 0.10 (0.01-0.20) K/uL Platelet Estimate Decreased L (Normal) PT 11.5 (9.0-12.0) Seconds INR 1.1 (0.9-1.1) APTT 38 H (21-31) Seconds PTT Ratio 1.3 VBG pH 7.37 (7.36-7.41) VBG pCO2 60 H (38-50) mmHg VBG pO2 57 mmHg VBG HCO3 35 mmol/L VBG O2 Saturation 88.3 % VBG Base Excess 7.8 mEq/L Sodium 130 L (136-145) mmol/L Potassium 3.4 L (3.5-5.1) mmol/L Chloride 91 L (98-107) mmol/L Carbon Dioxide 31 (21-32) mmol/L Anion Gap 8 (3-11) BUN 10 (6-23) mg/dl Creatinine 0.68 (0.6-1.2) mg/dl Est Cr Clr Drug Dosing 108.8 ml/min Est GFR ( Amer) 113.3 ml/min Est GFR (Non-Af Amer) 97.8 ml/min BUN/Creatinine Ratio 14.7 (10-20) Glucose 120 H (70-99(Fasting)) mg/dl Lactate 1.2 (0.4-2.0) mmol/L Calcium 9.4 (8.6-10.3) mg/dl Phosphorus 2.2 L (2.5-4.9) mg/dl Magnesium 1.8 (1.7-2.4) mg/dl Total Bilirubin 0.4 (0.2-1.0) mg/dl AST 25 (13-39) U/L ALT 21 (7-52) U/L Alkaline Phosphatase 156 H (34-104) U/L Troponin I High Sens 15.9 H (0-14) pg/ml C-Reactive Protein 32.98 H (0-0.5) mg/dl B-Natriuretic Peptide 133 H (0-100) pg/ml Total Protein 7.9 (6.0-8.3) gm/dl Albumin 3.7 (3.4-5.0) gm/dl Globulin 4.2 H (2.5-4.0) gm/dl Albumin/Globulin Ratio 0.9 (0.9-2) Procalcitonin 0.33 (0-0.5) ng/ml Adenovirus (PCR) Not Detected (NotDetected) B. pertussis DNA (PCR) Not Detected (NotDetected) B.parapertussis DNA PCR Not Detected (NotDetected) C. pneumoniae DNA (PCR) Not Detected (NotDetected) Coronavirus OC43 (PCR) Not Detected (NotDetected) Coronavirus HKU1 (PCR) Not Detected (NotDetected) Coronavirus 229E (PCR) Not Detected (NotDetected) SARS-CoV-2 (PCR) NEGATIVE (Negative) Coronavirus NL63 (PCR) (NotDetected) Human Metapneumovir PCR (NotDetected) Influenza Type A (PCR) (Neg) Influenza Type B (PCR) (Neg) M. pneumoniae (PCR) (NotDetected) Parainfluenza 1 (PCR) (NotDetected) Parainfluenza 2 (PCR) (NotDetected) Parainfluenza 3 (PCR) (NotDetected) Parainfluenza 4 (PCR) (NotDetected) RSV (RT-PCR) (Neg) RSV (PCR) (NotDetected) Entero/Rhino (PCR) (NotDetected) 08/23/23 08/23/23 08/23/23 Range/Units Unknown Unknown Unknown WBC (4.8-10.8) K/ul RBC (4.20-5.40) M/uL Hgb (12.0-16.0) g/dl Hct (37.0-47.0) % MCV (80.0-100.0) fL MCH (25.0-34.0) pg MCHC (32.0-36.0) g/dL RDW Std Deviation (36.4-46.3) fL RDW Coeff of Cee (11.5-14.5) % Plt Count (130-400) K/uL MPV (9.4-12.4) fL Immature Gran % (Auto) % Neut % (Auto) % Lymph % (Auto) % [place] % (Auto) % Eos % (Auto) % Baso % (Auto) % Neut # (Auto) (1.40-6.50) K/uL Lymph # (Auto) (1.20-3.40) K/uL [place] # (Auto) (0.11-0.59) K/uL Eos # (Auto) (0.00-0.50) K/uL Baso # (Auto) (0.00-0.20) K/uL Immature Gran # (Auto) (0.01-0.20) K/uL Platelet Estimate (Normal) PT (9.0-12.0) Seconds INR (0.9-1.1) APTT (21-31) Seconds PTT Ratio VBG pH (7.36-7.41) VBG pCO2 (38-50) mmHg VBG pO2 mmHg VBG HCO3 mmol/L VBG O2 Saturation % VBG Base Excess mEq/L Sodium (136-145) mmol/L Potassium (3.5-5.1) mmol/L Chloride (98-107) mmol/L Carbon Dioxide (21-32) mmol/L Anion Gap (3-11) BUN (6-23) mg/dl Creatinine (0.6-1.2) mg/dl Est Cr Clr Drug Dosing ml/min Est GFR ( Amer) ml/min Est GFR (Non-Af Amer) ml/min BUN/Creatinine Ratio (10-20) Glucose (70-99(Fasting)) mg/dl Lactate (0.4-2.0) mmol/L Calcium (8.6-10.3) mg/dl Phosphorus (2.5-4.9) mg/dl Magnesium (1.7-2.4) mg/dl Total Bilirubin (0.2-1.0) mg/dl AST (13-39) U/L ALT (7-52) U/L Alkaline Phosphatase (34-104) U/L Troponin I High Sens (0-14) pg/ml C-Reactive Protein (0-0.5) mg/dl B-Natriuretic Peptide (0-100) pg/ml Total Protein (6.0-8.3) gm/dl Albumin (3.4-5.0) gm/dl Globulin (2.5-4.0) gm/dl Albumin/Globulin Ratio (0.9-2) Procalcitonin (0-0.5) ng/ml Adenovirus (PCR) (NotDetected) B. pertussis DNA (PCR) (NotDetected) B.parapertussis DNA PCR (NotDetected) C. pneumoniae DNA (PCR) (NotDetected) Coronavirus OC43 (PCR) (NotDetected) Coronavirus HKU1 (PCR) (NotDetected) Coronavirus 229E (PCR) (NotDetected) SARS-CoV-2 (PCR) Not Detected (Negative) Coronavirus NL63 (PCR) Not Detected (NotDetected) Human Metapneumovir PCR Not Detected (NotDetected) Influenza Type A (PCR) Negative Not Detected (Neg) Influenza Type B (PCR) Negative Not Detected (Neg) M. pneumoniae (PCR) Not Detected (NotDetected) Parainfluenza 1 (PCR) Not Detected (NotDetected) Parainfluenza 2 (PCR) Not Detected (NotDetected) Parainfluenza 3 (PCR) Not Detected (NotDetected) Parainfluenza 4 (PCR) DETECTED A* (NotDetected) RSV (RT-PCR) Negative (Neg) RSV (PCR) Not Detected (NotDetected) Entero/Rhino (PCR) Not Detected (NotDetected) Administered Medications Discontinued Medications Albuterol (Albut/Ipratrop 3mg/0.5mg Neb 3 Ml Vial) 12 ml NEB ONE ONE; Protocol Stop: 08/23/23 09:06 Last Admin: 08/23/23 09:15 Dose: 12 ml Documented By: NRB Apixaban (Apixaban 5 Mg Tablet) 5 mg PO NOW STA Stop: 08/23/23 10:32 Last Admin: 08/23/23 11:06 Dose: 5 mg Documented By: HS Dexamethasone Sodium Phosphate (DexamethasonePf 10 Mg/Ml Vial) 10 mg PO NOW ONE Stop: 08/23/23 09:06 Last Admin: 08/23/23 09:27 Dose: 10 mg Documented By: NRB Cefepime HCl (Maxipime) 2,000 mg in 20 mls @ 5 mls/min IV NOW STA; Protocol Stop: 08/23/23 09:37 Last Admin: 08/23/23 09:59 Dose: 5 mls/min Documented By: NRB Sodium Chloride (Nss) 1,000 mls @ 999 mls/hr IV .Q1H1M ONE Stop: 08/23/23 10:34 Last Admin: 08/23/23 11:07 Dose: 999 mls/hr Documented By: HS Nicotine (Nicotine 14 Mg/24 Hr Patch) 14 mg TD QAM STA Stop: 08/23/23 10:06 Last Admin: 08/23/23 10:35 Dose: 14 mg Documented By: NRB Potassium Chloride (Potassium Chloride Crtab 20 Meq Tabcr) 40 meq PO NOW ONE Stop: 08/23/23 10:55 Last Admin: 08/23/23 11:06 Dose: 40 meq Documented By: HS Imaging Data Attestation: I personally reviewed and interpreted this imaging study as follows: My Impression: 1 view chest x-ray was obtained in the emergency department. My interpretation is bilateral lower infiltrates noted, there is no free air, small effusion was noted in the left base. Final report below. Radiologist's Impression: Chest X-Ray 08/23/23 08:55 XR chest 1V portable CLINICAL HISTORY: Chest pain, nonspecific COMPARISON STUDY: Chest CT September 13, 2022. Chest radiograph October 12, 2022. FINDINGS: There is no pneumothorax. Small left pleural effusion. Cardiomediastinal silhouette is stable. Bilateral lower lung airspace opacities are present. In addition, there is interstitial thickening. IMPRESSION: 1. Interstitial thickening suggestive of mild pulmonary edema. 2. Bilateral lower lung opacities which favor superimposed pneumonia. Alveolar pulmonary edema could appear similar. Radiographic follow-up to ensure resolution is recommended. 3. Small left pleural effusion. ACT 112: Negative or not required by law. Electronically signed by: Geoff Cote M.D. 08/23/2023 9:42 AM Discharge Plan Visit Data Chief Complaint: Referred by Doctor Stated Complaint: LOW OXYGEN, MUCUS IN LUNGS ED Provider: Jamar Sutherland Discharge Problem: Pneumonia, COPD (chronic obstructive pulmonary disease), Acute hypoxemic respiratory failure, Parainfluenza infection Patient Disposition: Being Evaluated by Hospitalist Discharge Instructions Interventions: ED Discharge Assessment Last Done: 08/23/23 11:45 Forms Stand Alone Forms: My [facility] [employer] Prescriptions Prescriptions: No Action amlodipine 10 mg tablet 10 mg PO QAM duloxetine 30 mg capsule,delayed release(DR/EC) 30 mg PO QAM albuterol sulfate 90 mcg/actuation HFA aerosol inhaler 2 puff INHALATION Q6H PRN (Reason: Cough) diphenhydramine HCl [Benadryl] 25 mg Capsule 0 mg PO HS PRN (Reason: SLEEP/ITCHING) Rx Instructions: Unable to verify OTC medications with patient/family at this date/time. ferrous gluconate 324 mg (38 mg iron) Tablet 324 mg PO QAM Qty: 30 0RF furosemide 40 mg Tablet 40 mg PO QAM Qty: 30 0RF Eliquis 5 mg tablet 5 mg PO BID Qty: 63 0RF methadone 10 mg/5 mL Solution 100 mg PO QAM Rx Instructions: Verified lis/ Marc @ [facility] @ [phone]. Pt was in clinic on 08/23/23 but clinic did NOT give pt their morning dose. nicotine 7 mg/24 hr Patch 24 Hour 0 patch TRANSDERMAL DAILY Rx Instructions: Unable to verify OTC medications with patient/family at this date/time. cyanocobalamin (vitamin B-12) [Vitamin B-12] 100 mcg tablet 0 mcg PO 3XWK Rx Instructions: Unable to verify OTC medications with patient/family at this date/time. potassium chloride [K-Tab] 10 mEq tablet extended release 10 meq PO QAM Rx Instructions: take one tablet daily with lasix. pantoprazole 40 mg tablet,delayed release (DR/EC) 40 mg PO QAM Beet Root 0 tab PO TID Rx Instructions: Unable to verify OTC medications with patient/family at this date/time. Om Mushroom 0 cap PO BID Rx Instructions: Unable to verify OTC medications with patient/family at this date/time. polyethylene glycol 3350 [Miralax] 17 gram powder in packet 0 g PO DAILY PRN (Reason: laxative effect) Rx Instructions: Unable to verify OTC medications with patient/family at this date/time. melatonin 3 mg tablet 0 mg PO HS PRN (Reason: sleep) Rx Instructions: Unable to verify OTC medications with patient/family at this date/time. metoprolol succinate 25 mg tablet extended release 24 hr 25 mg PO BID bisacodyl 5 mg tablet 0 mg PO HS PRN (Reason: Constipation) Rx Instructions: Unable to verify OTC medications with patient/family at this date/time. Referrals Referrals: Joe Lockwood DO [Primary Care Provider] - Discharge Problem: Pneumonia Qualifiers: Pneumonia type: due to unspecified organism Laterality: bilateral Lung location: lower lobe of lung Qualified Code(s): J18.9 - Pneumonia, unspecified organism COPD (chronic obstructive pulmonary disease) Qualifiers: COPD type: unspecified COPD Qualified Code(s): J44.9 - Chronic obstructive pulmonary disease, unspecified
--- OUTSIDE RECORDS SUMMARY | 2023-08-23 09:09 | External Medical Summary | Summary of Care ---
Author Name Unknown Organization [facility] Address [address] [place] [address] Phone [phone] Care Team Providers Care Emergency Department Technician Name Role Phone Roseann Plummer MD Primary Care Provider Reason for Visit * Reason Onset Date Comments case management 05/13/2023 Encounter Details Date Type Department Care Team Description 05/13/2023 Prototype Technician Telephone Care Coordination [address] [place] [address] Urvashi Tuttle LSW [address] [place], [place] [id number] case management Allergies Active Allergy Reactions Severity Noted Date Comments Buspirone Rash 11/01/2022 documented as of this encounter (statuses as of 05/13/2023) Medications Medication Sig Dispensed Refills Start Date End Date Status methADONE 10 MG Tablet Take 1 Tablet by mouth once. 100mg daily 0 Active Metoprolol Succinate ER 25 MG Oral Tablet Extended Release 24 Hour (toPROL XL)Indications:HTN , goal below 130/80 take 1 tablet by mouth twice a day 180 Tablet 3 03/21/2022 Active Additional Information Patient taking differently: 12.5 mg BID (.AM/PM), take 1 tablet by mouth twice a day, Reported on 09/28/2022 Umeclidinium-Vilan terol 62.5-25 MCG/ACT Inhalation Aerosol Powder Breath Activated (ANORO ellipta)Indication s:COPD, mild (HCC) Inhale 1 Puff by mouth in the morning. 60 Blister Dosing Unit 11 10/11/2022 Active Albuterol Sulfate HFA 108 (90 Base) MCG/ACT Inhalation Aerosol SolutionIndication s:Cough INHALE 2 PUFFS BY MOUTH EVERY 6 HOURS NEEDED FOR COUGH 18 g 5 11/18/2022 Active clonazePAM 0.5 MG Oral Tablet (KlonoPIN)Indicati ons:Situational anxiety Take 1 tablet by mouth 45-60 minutes before medical procedure or test. Do not drive or mix with alcohol. 2 Tablet 0 12/04/2022 Active DULoxetine HCl 30 MG Oral Capsule Delayed Release Particles (Cymbalta)Indicati ons:Mood disorder (HCC) take 1 capsule by mouth every morning 90 Capsule 3 01/01/2023 Active Potassium Chloride Mayda ER 10 MEQ Oral Tablet Extended Release Take 1 Tablet by mouth in the morning. 30 Tablet 5 01/20/2023 Active Furosemide 40 MG Oral Tablet (Lasix) Take 1 Tablet by mouth in the morning. 30 Tablet 5 01/20/2023 Active Apixaban 5 MG Oral Tablet (Eliquis) Take 1 Tablet by mouth in the morning and 1 Tablet before bedtime. 60 Tablet 5 01/20/2023 Active Ferrous Gluconate 324 (38 Fe) MG Oral Tablet Take 1 Tablet by mouth daily with breakfast. 30 Tablet 5 01/20/2023 Active Pantoprazole Sodium 40 MG Oral Tablet Delayed Release (Protonix) Take 1 Tablet by mouth in the morning. 30 Tablet 5 01/20/2023 Active Naftifine HCl 2 % External CreamIndications:R ayaz and nonspecific skin eruption Apply topically to affected area daily. Apply to rash on thighs, buttocks, hands. 45 g 1 03/01/2023 Active Tolnaftate 1 % External CreamIndications:R ayaz and nonspecific skin eruption Apply topically to affected area 2 times a day. Apply to thighs and lower back/gluteal cleft. 113 g 1 03/07/2023 Active Bisacodyl 5 MG Oral Tablet Delayed Release (Dulcolax) Take 1 Tablet by mouth daily as needed for Constipation. 30 Tablet 0 03/08/2023 Active Nicotine 7 MG/24HR Transdermal Patch 24 Hour (Nicoderm CQ)Indications:Tob acco use disorder Place 1 Patch topically on the skin daily. 14 Patch 0 05/02/2023 Active Clobetasol Propionate 0.05 % External Cream (Temovate)Indicati ons:Psoriasis vulgaris Apply to rash on buttocks and thighs twice daily for 2 weeks 60 g 5 05/02/2023 Active amLODIPine Besylate 10 MG Oral Tablet (Norvasc)Indicatio ns:HTN, goal below 130/80 take 1 tablet by mouth every morning 90 Tablet 1 05/03/2023 Active Hospital, Clinic, or Other Facility Administered Medication Ordered Dose Route Frequency Start Date End Date Status Albuterol Sulfate (Proventil) (2.5 MG/3ML) 0.083% inhalation solution 2.5 mgIndications:COPD, mild (HCC) 2.5 mg NEBULIZER PRN 10/11/2022 Active documented as of this encounter (statuses as of 05/13/2023) Active Problems Problem Noted Date Dependence on supplemental oxygen 2022 Pulmonary emboli 02/09/2023 KARLA (acute kidney injury) 05/25/2022 Anemia 05/25/2022 Thrombocytopenia 05/25/2022 Nodule of right lung 05/25/2022 Medical home patient encounter Food insecurity 05/07/2022 Overview: Per [facility] Protocol COPD, group C, by GOLD 2017 classificati on 10/09/2021 Overview: Per COPD GOLD Classification Methadone maintenance therapy patient Recurrent major depressive disorder 08/30 Chronic obstructive pulmonary disease wi th (acute) exacerbation 09/20/2021 Status post right hip replacement 2020 Primary osteoarthritis of right hip 10/28 Obesity, Class I, BMI 30.0-34.9 (see act ual BMI) 11/22/2020 Gastroesophageal reflux disease without esophagitis 11/22/2020 Tobacco use disorder 11/22/2020 HTN, goal below 130/80 05/04/2020 Lumbar degenerative disc disease 020 Primary osteoarthritis of both hips 01/2020 Substance abuse in remission 05/04/2020 documented as of this encounter (statuses as of 05/13/2023) Resolved Problems Problem Noted Date Resolved Date Chronic kidney disease, stage 3a 10/08/2022 03/01/2023 Overview: Per CKD protocol Substance abuse 05/25/2022 03/01/2023 Food insecurity 03/06/2021 01/11/2022 Overview: Per [facility] Protocol documented as of this encounter (statuses as of 05/13/2023) Immunizations Name Administration Dates Next Due Pneumococcal Polysaccharide PPV23 (Pneumovax) SEASONAL INFLUENZA, PF, 6 M & Above, IM , (FLULAVAL or FLUZONE) 04/28/2020 Seasonal Influenza Virus Vac cine, Unspecified Formulation 04/28/2020 TDAP (age 10 and older)(Boostrix) 04/28/2020 documented as of this encounter Social History Tobacco Use Types Packs/Day Years Used Date Smoking Tobacco: Every Day Cigarettes 0.3 40 Started: 1981 Vaporizer Started: 07/17 22 Smokeless Tobacco: Never Comments:10/11/22 2 cig/day [facility] Alcohol Use Standard Drinks/Week Comments Not Currently 0 (1 standard drink = 0.6 oz pur e alcohol) Food Insecurity Answer Date Recorded Within the past 12 months, y ou worried that your food would run out before you got money to buy more. Sometimes true 2022 Within the past 12 months, t he food you bought just didn't last and you didn't have money to get more. Sometimes true 08/2022 Sex Assigned at Date Recorded Female 10/25/2022 12:12 AM EDT Job Start Date Occupation [...] or making decisions? (5 years old or older No 12/05/2020 documented as of this encounter Miscellaneous Notes * Telephone Encounter - ASTRID Perez - 05/13/2023 2:44 PM EDT [facility] Follow-up Routine Attempted Phone Call Third Attempt Call Outcome Left Voicemail/Message Plan To attempt another outreach Urvashi Tuttle KENNEL AIDE, PRODUCTION QUALITY MANAGER Behavioral Health Prototype Technician (Pronouns: she, her, hers) Care Coordination Integration home furnishings sales representative documented in this encounter Plan of Treatment Upcoming Encounters Date Type Specialty Care Team Description 05/24/2023 Imaging Radiology 06/11/2023 Imaging Radiology 06/17/2023 Office Visit Dermatology Tristin Alexander MD [address] [place] [facility] [place] [address] 06/27/2023 Procedure Only Endoscopy Tobin Silva [place] [address] [place] [id number] 07/03/2023 Office Visit Pulmonary Huan Branham MD [address] [id number] Health Maintenance Due Date Last Done [...] this encounter Medical Devices Implanted Type Area Cnc Applications Engineer Device Identifier Shelf Expiration Date Model / Serial / Lot Accolade Ii 127 Deg Sz 4 - [id number] Implanted:Qty: 1 on 12/05/2020 by Rodolfo Park, at OR [facility] Right: Hip KANDICE : ORTHOPAEDICS 11/07/2025 [id number] / / [id number] documented as of this encounter Advance Directives [...] the patient have Health Care Power of Process Stripper? Yes, not currently available Care Teams Emergency Department Technician Relationship Specialty Start Date End Date Roesann Plummer MD [address] [facility] [place] [id number] PCP - General Internal Medicine 11/05/22 documented as of this encounter
--- OUTSIDE RECORDS SUMMARY | 2023-08-23 09:09 | External Medical Summary | Summary of Care ---
Author Name Unknown Organization [facility] Address [address] [place] [address] Phone [phone] Care Team Providers Care Web Assistant Name Role Phone Moi Plummer MD Primary Care Provider Reason for Visit * Reason Comments eRx-Medication Refill Encounter Details Date Type Department Care Team (Late st Contact Info) Description 06/09/2023 Refill Family Practice [facility] [address] [place] [address] Joe Lockwood, DO [address] [place] [address] HTN, goal below 130/80 Allergies Active Allergy Reactions Criticality Noted Date Comments Buspirone Rash 11/01/2022 documented as of this encounter (statuses as of 06/10/2023) Medications Medication Sig Dispensed Refills Start Date [...] 11/18/2022 Active clonazePAM 0.5 MG Oral Tablet (KlonoPIN)Indicat ions:Situational anxiety Take 1 tablet by mouth 45-60 [...] buttocks, hands. 45 g 1 05/15/2023 Active Nicotine 7 MG/24HR Transdermal Patch 24 Hour (Nicoderm CQ)Indications:To bacco use disorder Place 1 Patch topically on the skin daily. 14 Patch 0 05/15/2023 Active Metoprolol Succinate ER 25 MG Oral Tablet Extended Release 24 Hour (toPROL XL)Indications:HT N, goal below 130/80 take 1 tablet by mouth twice a day 180 Tablet 2 06/10/2023 Active Metoprolol Succinate ER 25 MG Oral Tablet Extended Release 24 Hour (toPROL XL)Indications:HT N, goal below 130/80 take 1 tablet by mouth twice a day 180 Tablet 3 03/21/2022 Discontinued Hospital, Clinic, or Other Facility Administered Medication Ordered Dose Route Frequency Start Date End Date Status Albuterol Sulfate (Proventil) (2.5 MG/3ML) 0.083% inhalation solution 2.5 mgIndications:COPD, mild (HCC) 2.5 mg NEBULIZER PRN 10/11/2022 Active documented as of this encounter (statuses as of 06/10/2023) Active Problems Problem Noted Date Diagnosed Date Dependence on supplemental oxygen 03/01/2023 Pulmonary emboli 02/09/2023 KARLA (acute kidney injury) 05/25/2022 Anemia 05/25/2022 Thrombocytopenia 05/25/2022 Nodule of right lung 05/25/2022 Medical home patient encounter 05/23/2022 Food insecurity [...] as of this encounter (statuses as of 06/10/2023) Resolved Problems Problem Noted Date Diagnosed Date Resolved Date Chronic kidney disease, stage 3a 10/08/2022 03/01/2023 Overview: Per CKD protocol Substance abuse 05/25/2022 03/01/2023 Food insecurity 03/06/2021 01/11/2022 Overview: Per [facility] Protocol documented as of this encounter (statuses as of 06/10/2023) Immunizations Name Administration Dates Next Due Pneumococcal [...] encounter Miscellaneous Notes * Telephone Encounter - Kalpesh Nava RP - 06/10/2023 12:16 PM EST Signed Prescriptions: Disp Refills Metoprolol Succinate ER 25 MG Oral Tablet *180 Ta*2 Sig: take 1 tablet by mouth twice a dayAuthorizing Provider: MOI PLUMMER User: KALPESH NAVA documented in this encounter Plan of Treatment Upcoming Encounters Date Type Department Care Team (Late st Contact Info) Description 06/11/2023 10:15 AM EST Imaging Radiology [address] 132 [facility] [place] [address] 06/17/2023 1:30 PM EST Office Visit Dermatology [facility] [address] [place] [address] Tristin Alexander MD [address] [place] [address] 06/18/2023 9:15 AM EST Imaging Radiology [address] 132 [place] [address] 06/27/2023 9:30 AM EST Procedure Only Endoscopy, [facility] [address] [place] [address] Tobin Silva MD [address] [address] [address] Health Maintenance Due Date Last Done Comments DISCUSS TOBACCO CESSATION (REFER TO SMARTSET #2060) 1965 Hepatitis B (1 of 3 - [...] this encounter Medical Devices Implanted Type Area Government Sales Manager Device Identifier Shelf Expiration Date Model / Serial / Lot Accolade Ii 127 Deg Sz 4 - [id number] Implanted:Qty: 1 on 12/05/2020 by Rodolfo Park, at OR [facility] Right: Hip KANDICE : ORTHOPAEDICS 11/07/2025 [id number] / / [id number] documented as of this encounter Visit Diagnoses Diagnosis HTN, goal below 130/80 Unspecified essential hypertension documented in this encounter Advance Directives Latest [...] the patient have Health Care Power of Physicist Acoustics? Yes, not currently available Care Teams Web Assistant Relationship Specialty Start Date End Date Moi Plummer MD 132 [facility] [place] [address] PCP - General Internal Medicine 11/05/22 documented as of this encounter
--- OUTSIDE RECORDS SUMMARY | 2023-08-23 09:09 | External Medical Summary | Summary of Care ---
Author Name Unknown Organization [facility] Address [address] [place] [address] Phone [phone] Care Team Providers Care Apron Trimmer Name Role Phone Roseann Plummer MD Primary Care Provider Reason for Visit * Reason Onset Date Comments Medication Refill 05/26/2023 Encounter Details Date Type Department Care Team (Late st Contact Info) Description 05/26/2023 Refill Family Practice [facility] [address] [place] [address] Roseann Plummer MD [address] [place] [address] Allergies Active Allergy Reactions Criticality Noted Date Comments Buspirone Rash 11/01/2022 documented as of this encounter (statuses as of 05/27/2023) Medications Medication Sig Dispensed Refills Start Date [...] skin daily. 14 Patch 0 05/15/2023 Active Hospital, Clinic, or Other Facility Administered Medication Ordered Dose Route Frequency Start Date End Date Status Albuterol Sulfate (Proventil) (2.5 MG/3ML) 0.083% inhalation solution 2.5 mgIndications:COPD, mild (HCC) 2.5 mg NEBULIZER PRN 10/11/2022 Active documented as of this encounter (statuses as of 05/27/2023) Active Problems Problem Noted Date Diagnosed Date [...] as of this encounter (statuses as of 05/27/2023) Resolved Problems Problem Noted Date Diagnosed Date Resolved Date Chronic kidney disease, stage 3a 10/08/2022 03/01/2023 Overview: Per CKD protocol Substance abuse 05/25/2022 03/01/2023 Food insecurity 03/06/2021 01/11/2022 Overview: Per [facility] Protocol documented as of this encounter (statuses as of 05/27/2023) Immunizations Name Administration Dates Next Due Pneumococcal [...] encounter Miscellaneous Notes * Telephone Encounter - Thierry Wilson [facility] - 05/27/2023 11:58 AM EDTRefused Prescriptions: Disp Refills Ferrous Gluconate 324 (38 Fe) MG Oral Tabl*30 Tab*5 Sig: Take 1Tablet by mouth daily with breakfast.Refused By: THIERRY WILSON for Refusal: Duplicate Req uest documented in this encounter Plan of Treatment Upcoming Encounters Date Type Department Care Team (Late st Contact Info) Description 06/11/2023 10:30 AM EST Imaging Radiology [address] [place] [address] 06/17/2023 1:30 PM EST Office Visit Dermatology [facility] [address] [place] [address] Tristin Alexander MD [address] [place] [address] 06/18/2023 9:15 AM EST Imaging Radiology [address] 132 [facility] [place] [address] 06/27/2023 9:30 AM EST Procedure Only Endoscopy, [facility] 132 [facility] [place] [address] Tobin Silva MD [address] [place] [address] 07/03/2023 1:00 PM EST Office Visit Pulmonary Medicine, [facility] [address] [place] [address] Huan Branham MD [address] [facility] [place] [address] Health Maintenance Due Date Last Done Comments DISCUSS TOBACCO CESSATION (REFER TO SMARTSET #3294) 1965 Hepatitis B (1 of 3 - [...] this encounter Medical Devices Implanted Type Area Recycling Center Operator Device Identifier Shelf Expiration Date Model / Serial / Lot Accolade Ii 127 Deg 4 - [id number] Implanted:Qty: 1 on 12/05/2020 by Rodolfo Park, DO at OR [facility] Right: Hip KANDICE : ORTHOPAEDICS 11/07/2025 [id number] / / [id number] documented as of this encounter Advance Directives [...] the patient have Health Care Power of Mmd Unit Teacher? Yes, not currently available Care Teams Apron Trimmer Relationship Specialty Start Date End Date Roseann Plummer MD [address] [place] [address] PCP - General Internal Medicine 11/05/22 documented as of this encounter
--- OUTSIDE RECORDS SUMMARY | 2023-08-23 09:09 | External Medical Summary | Summary of Care ---
Author Name Unknown Organization [facility] Address [address] [place] [address] Phone [phone] Care Team Providers Care Ecotherapist Name Role Phone Roseann Plummer MD Primary Care Provider Encounter Details Date Type Department Care Team (Late st Contact Info) Description 06/12/2023 Orders Only Gastroenterology, [facility] [address] [place] [address] Tobin Silva MD [address] [place] [address] Special screening for malignant neoplasms, colon* Allergies Active Allergy Reactions Criticality Noted Date Comments Buspirone Rash 11/01/2022 documented as of this encounter (statuses as of 06/12/2023) Medications Medication Sig Dispensed Refills Start Date [...] not drive. 4 Tablet 0 06/10/2023 Active Hospital, Clinic, or Other Facility Administered Medication Ordered Dose Route Frequency Start Date End Date Status Albuterol Sulfate (Proventil) (2.5 MG/3ML) 0.083% inhalation solution 2.5 mgIndications:COPD, mild (HCC) 2.5 mg NEBULIZER PRN 10/11/2022 Active documented as of this encounter (statuses as of 06/12/2023) Active Problems Problem Noted Date Diagnosed Date [...] as of this encounter (statuses as of 06/12/2023) Resolved Problems Problem Noted Date Diagnosed Date Resolved Date Chronic kidney disease, stage 3a 10/08/2022 03/01/2023 Overview: Per CKD protocol Substance abuse 05/25/2022 03/01/2023 Food insecurity 03/06/2021 01/11/2022 Overview: Per [facility] Protocol documented as of this encounter (statuses as of 06/12/2023) Immunizations Name Administration Dates Next Due Pneumococcal [...] Care Team (Late st Contact Info) Description 06/17/2023 1:30 PM EST Office [facility] [address] [facility] [place] [address] Tristin Alexander MD 200 [facility] [place] [address] 06/18/2023 9:15 AM EST Imaging Radiology [address], [place] [address] [place] [address] 06/27/2023 9:30 AM EST Procedure Only Endoscopy, [facility] [address] [place] [address] Tobin Silva MD [address] [place] [address] Scheduled Orders Name Type Priority Associated Diagnoses Orde r Schedule COLONOSCOPY, DIAGNOSTIC (RECTUM) Procedures Routine Special screening for malignant neoplasms, colon Ordered: 06/12/2023 Health Maintenance Due Date Last Done Comments DISCUSS TOBACCO CESSATION (REFER TO SMARTSET #6831) 1965 Hepatitis B (1 of 3 - [...] encounter Medical Devices Implanted Type Area Clinical Unit Coordinator Device Identifier Shelf Expiration Date Model / Serial / Lot Accolade Ii 127 Deg Sz 4 - [id number] Implanted:Qty: 1 on 12/05/2020 by Rodolfo Park DO at OR [facility] Right: Hip KANDICE : ORTHOPAEDICS 11/07/2025 [id number] / / [id number] documented as of this encounter Visit Diagnoses Diagnosis Special screening for malignant neoplasms, colon- Primary documented in this encounter Advance Directives Latest [...] the patient have Health Care Power of Insurance Billing Specialist? Yes, not currently available Care Teams Ecotherapist Relationship Specialty Start Date End Date Roseann Plummer MD [address] [place] [address] PCP - General Internal Medicine 11/05/22 documented as of this encounter
--- OUTSIDE RECORDS SUMMARY | 2023-08-23 09:09 | External Medical Summary | Summary of Care ---
Author Name Unknown Organization [facility] Address [address] [place] [address] Phone [phone] Care Team Providers Care Screwhead Polisher Name Role Phone Roseann Plummer MD Primary Care Provider Reason for Visit * Reason Onset Date Comments Medication Refill 06/14/2023 Encounter Details Date Type Department Care Team (Late st Contact Info) Description 06/14/2023 Refill Family Practice [facility] [address] [place] [address] Roseann Plummer MD [address] [place] [address] Tobacco use disorder Allergies Active Allergy Reactions Criticality Noted Date Comments Buspirone Rash 11/01/2022 documented as of this encounter (statuses as of 06/14/2023) Medications Medication Sig Dispensed Refills Start Date [...] the skin daily. 14 Patch 0 06/14/2023 Active Nicotine 7 MG/24HR Transdermal Patch 24 Hour (Nicoderm CQ)Indications:To bacco use disorder Place 1 Patch topically on the skin daily. 14 Patch 0 05/15/2023 Discontinue d(Refill) Hospital, Clinic, or Other Facility Administered Medication Ordered Dose Route Frequency Start Date End Date Status Albuterol Sulfate (Proventil) (2.5 MG/3ML) 0.083% inhalation solution 2.5 mgIndications:COPD, mild (HCC) 2.5 mg NEBULIZER PRN 10/11/2022 Active documented as of this encounter (statuses as of 06/14/2023) Active Problems Problem Noted Date Diagnosed Date [...] as of this encounter (statuses as of 06/14/2023) Resolved Problems Problem Noted Date Diagnosed Date Resolved Date Chronic kidney disease, stage 3a 10/08/2022 03/01/2023 Overview: Per CKD protocol Substance abuse 05/25/2022 03/01/2023 Food insecurity 03/06/2021 01/11/2022 Overview: Per [facility] Protocol documented as of this encounter (statuses as of 06/14/2023) Immunizations Name Administration Dates Next Due Pneumococcal [...] Notes * Telephone Encounter - Rajesh Viramontes [facility] - 06/14/2023 4:57 PM ESTSigned Prescriptions: Disp Refills Nicotine 7 MG/24HR Transdermal Patch 24 Ho*14 Pat*0 Sig: Place 1Patch topically on the skin daily.Authorizing Provider: ROSEANN PLUMMER User: RAJESH VIRAMONTES * Telephone Encounter - Rajesh Viramontes [facility] - 06/14/2023 4:51 PM EST Called and spoke to patient about her smoking cessation progress. She has decreased use to a couplecigarettes a day and has plans to quit by giving. Refill approved at this time. Thank you, Rajesh Viramontes, PharmD Clinical Pharmacist [facility] (Former[facility]) [phone] 06/14/2023, 4:57 PM documented in this encounter Plan of Treatment Upcoming Encounters Date Type Department Care Team (Late st Contact Info) Description 06/17/2023 1:30 PM EST Office [facility] [address] [place] [address] Tristin Alexander MD 200 [facility] [place], [place] [address] 06/18/2023 9:15 AM EST Imaging Radiology [facility] [address] [facility] [place] [address] [place] [address] 06/27/2023 9:30 AM EST Procedure Only Endoscopy, [facility] [address] [place] [address] Tobin Silva MD [address] [place] [address] Health Maintenance Due Date Last Done Comments DISCUSS TOBACCO CESSATION (REFER TO SMARTSET #3202) 1965 Hepatitis B (1 of 3 - [...] this encounter Medical Devices Implanted Type Area Blood Coordinator Device Identifier Shelf Expiration Date Model / Serial / Lot Accolade Ii 127 Deg Sz 4 - [id number] Implanted:Qty: 1 on 12/05/2020 by Rodolfo Park, DO at OR [facility] Right: Hip KANDICE : ORTHOPAEDICS 11/07/2025 [id number] / / [id number] documented as of this encounter Visit Diagnoses [...] the patient have Health Care Power of Flipping Machine Operator? Yes, not currently available Care Teams Screwhead Polisher Relationship Specialty Start Date End Date Roseann Plummer MD 132 [facility] [place] [address] PCP - General Internal Medicine 11/05/22 documented as of this encounter
--- OUTSIDE RECORDS SUMMARY | 2023-08-23 09:09 | External Medical Summary | Summary of Care ---
Author Name Unknown Organization [facility] Address [address] [place] [address] Phone [phone] Care Team Providers Care Machine Bender Name Role Phone Roseann Plummer MD Primary Care Provider Reason for Visit * Reason Onset Date Comments STAIR Lung Nodule 06/14/2023 Encounter Details Date Type Department Care Team (Late st Contact Info) Description 06/14/2023 Telephone STAIR LUNG NODULE [address], [place] [id number] Program, Stair [address] [place] [address] STAIR Lung Nodule Allergies Active Allergy Reactions Criticality Noted Date [...] encounter Miscellaneous Notes * Telephone Encounter - Alaina Riley LPN - 06/14/2023 12:09 PM EST Patient managed in STAIR Program for Pulmonary Nodule - added Requested imaging from [facility] documented in this encounter Plan of Treatment Upcoming Encounters Date Type Department Care Team (Late st Contact Info) Description 06/17/2023 1:30 PM EST Office Visit Dermatology [facility] 200 [facility] [place] [address] Tristin Alexander MD 200 [facility] [place] [address] 06/18/2023 9:15 AM EST Imaging Radiology [address] [place] [address] 06/27/2023 9:30 AM EST Procedure Only Endoscopy, [facility] [address] [place] [address] Tobin Silva MD [address] [place] [address] Health Maintenance Due Date Last Done Comments DISCUSS TOBACCO CESSATION (REFER TO SMARTSET #6529) 1965 Hepatitis B (1 of 3 - [...] this encounter Medical Devices Implanted Type Area [place]ombstone Polisher Device Identifier Shelf Expiration Date Model / Serial / Lot Accolade Ii 127 Deg Sz 4 - [id number] Implanted:Qty: 1 on 12/05/2020 by Rodolfo Park, DO at OR [facility] Right: Hip KANDICE : ORTHOPAEDICS 11/07/2025 [id number] / / [id number] documented as of this encounter Advance Directives [...] the patient have Health Care Power of News Production Assistant? Yes, not currently available Care Teams Machine Bender Relationship Specialty Start Date End Date Roseann Plummer MD [address] [place] [address] PCP - General Internal Medicine 11/05/22 documented as of this encounter
--- OUTSIDE RECORDS SUMMARY | 2023-08-23 09:09 | External Medical Summary | Summary of Care ---
Author Name Unknown Organization [facility] Address [address] [place] [address] Phone [phone] Care Team Providers Care Line Operator Name Role Phone Moi Plummer MD Primary Care Provider Reason for Visit * Reason Onset Date Comments Medication Refill 05/14/2023 Encounter Details Date Type Department Care Team Description 05/14/2023 Refill Family Practice [facility] [address] [place] [address] Moi Plummer MD [address] [place] [address] Rash and nonspecific skin eruption Allergies Active Allergy Reactions Severity Noted Date Comments Buspirone Rash 11/01/2022 documented as of this encounter (statuses as of 05/15/2023) Medications Medication Sig Dispensed Refills Start Date [...] mouth twice a day, Reported on 09/28/2022 Umeclidinium-Lauren nterol 62.5-25 MCG/ACT Inhalation Aerosol Powder [...] skin daily. 14 Patch 0 05/15/2023 Active Potassium Chloride Mayda ER 10 MEQ Oral Tablet Extended Release Take 1 Tablet by mouth in the morning. 30 Tablet 5 01/20/2023 3 Discontinue d(Refill) Furosemide 40 MG Oral Tablet (Lasix) Take 1 Tablet by mouth in the morning. 30 Tablet 5 01/20/2023 3 Discontinue d(Refill) Apixaban 5 MG Oral Tablet (Eliquis) Take 1 Tablet by mouth in the morning and 1 Tablet before bedtime. 60 Tablet 5 01/20/2023 3 Discontinue d(Refill) Ferrous Gluconate 324 (38 Fe) MG Oral Tablet Take 1 Tablet by mouth daily with breakfast. 30 Tablet 5 01/20/2023 3 Discontinue d(Refill) Pantoprazole Sodium 40 MG Oral Tablet Delayed Release (Protonix) Take 1 Tablet by mouth in the morning. 30 Tablet 5 01/20/2023 3 Discontinue d(Refill) Naftifine HCl 2 % External CreamIndications: Rash and nonspecific skin eruption Apply topically to affected area daily. Apply to rash on thighs, buttocks, hands. 45 g 1 03/01/2023 3 Discontinue d(Refill) Hospital, Clinic, or Other Facility Administered Medication Ordered Dose Route Frequency Start Date End Date Status Albuterol Sulfate (Proventil) (2.5 MG/3ML) 0.083% inhalation solution 2.5 mgIndications:COPD, mild (HCC) 2.5 mg NEBULIZER PRN 10/11/2022 Active documented as of this encounter (statuses as of 05/15/2023) Active Problems Problem Noted Date Dependence on [...] as of this encounter (statuses as of 05/15/2023) Resolved Problems Problem Noted Date Resolved Date Chronic kidney disease, stage 3a 10/08/2022 03/01/2023 Overview: Per CKD protocol Substance abuse 05/25/2022 03/01/2023 Food insecurity 03/06/2021 01/11/2022 Overview: Per [facility] Protocol documented as of this encounter (statuses as of 05/15/2023) Immunizations Name Administration Dates Next Due Pneumococcal [...] encounter Miscellaneous Notes * Telephone Encounter - Moi Plummer MD - 05/15/2023 4:23 PM EDT Signed Prescriptions: Disp Refills Potassium Chloride Mayda ER 10 MEQ Oral Tab*30 Tab*5 Sig: Take 1 Tablet by mouth in the morning. Authorizing Provider: MOI PLUMMER Ordering User: SHAHID THOMAS Furosemide 40 MG Oral Tablet (Lasix) 30 Tab*5 Sig: Take 1 Tablet by mouth in the morning. Authorizing Provider: MOI PLUMMER Ordering User: SHAHID DENT Apixaban 5 MG Oral Tablet (Eliquis) 60 Tab*5 Sig: Take 1 Tablet by mouth in the morning and 1 Tablet before bedtime. Authorizing Provider: MOI PLUMMER Ordering User: SHAHID THOMAS Ferrous Gluconate 324 (38 Fe) MG Oral Tabl*30 Tab*5 Sig: Take 1 Tablet by mouth daily with breakfast. Authorizing Provider: MOI PLUMMER Ordering User: SHAHID CROW Pantoprazole Sodium 40 MG Oral Tablet Gaby*30 Tab*5 Sig: Take 1 Tablet by mouth in the morning. Authorizing Provider: MOI PLUMMER Ordering User: SHAHID THOMAS Naftifine HCl 2 % External Cream 45 g 1 Sig: Apply topically to affected area daily. Apply to rash on thighs, buttocks, hands. Authorizing Provider: MOI PLUMMER --- * Telephone Encounter - Shahid Parekh William, [facility] - 05/15/2023 11:39 AM EDT Pending Prescriptions: Disp Refills Naftifine HCl 2 % External Cream 45 g 1 Sig: Apply topically to affected area daily. Apply to rash on thighs, buttocks, hands. Signed Prescriptions: Disp Refills Potassium Chloride Mayda ER 10 MEQ Oral Tab*30 Tab*5 Sig: Take 1 Tablet by mouth in the morning. Authorizing Provider: JAME PLUMMER Ordering User: SHAHID THOMAS Furosemide 40 MG Oral Tablet (Lasix) 30 Tab*5 Sig: Take 1 Tablet by mouth in the morning. Authorizing Provider: MOI PLUMMER Ordering User: SHAHID THOMAS Apixaban 5 MG Oral Tablet (Eliquis) 60 Tab*5 Sig: Take 1 Tablet by mouth in the morning and 1 Tablet before bedtime. Authorizing Provider: MOI PLUMMER CH Ordering User: WILLIAMTURNER RAMIREZDenise PAREKH Ferrous Gluconate 324 (38 Fe) MG Oral Tabl*30 Tab*5 Sig: Take 1 Tablet by mouth daily with breakfast. Authorizing Provider: MOI PLUMMER Ordering User: SHAHID THOMAS Pantoprazole Sodium 40 MG Oral Tablet Gaby*30 Tab*5 Sig: Take 1 Tablet by mouth in the morning. Authorizing Provider: MOI PLUMMER User: KARINE THOMAS EA * Telephone Encounter - Shahid Thomas RPh - 05/15/2023 11:36 AM EDT [facility] is currently not authorized to approve refills for the pended medication(s) per refill protocol. Please approve if appropriate. Thank You, Shahid Thomas, Pharm-D Clinical Pharmacist [facility] [phone] 05/15/2023, 11:38 AM Did you pend patient's preferred pharmacy and medication before forwarding?yes Pharmacy: [id number] Pending Prescriptions: Disp Refills Naftifine HCl 2 % External Cream 45 g 1 Sig: Apply topically to affected area daily. Apply to rash on thighs, buttocks, hands. Signed Prescriptions: Disp Refills Potassium Chloride Mayda ER 10 MEQ Oral Tab*30 Tab*5 Sig: Take 1 Tablet by mouth in the morning. Authorizing Provider: MOI PLUMMER User: SHAHID THOMAS Furosemide 40 MG Oral Tablet (Lasix) 30 Tab*5 Sig: Take 1 Tablet by mouth in the morning. Authorizing Provider: MOI PLUMMER Ordering User: SHAHID THOMAS Apixaban 5 MG Oral Tablet (Eliquis) 60 Tab*5 Sig: Take 1 Tablet by mouth in the morning and 1 Tablet before bedtime. Authorizing Provider: MOI PLUMMER User: SHAHID THOMAS Ferrous Gluconate 324 (38 Fe) MG Oral Tabl*30 Tab*5 Sig: Take 1 Tablet by mouth daily with breakfast. Authorizing Provider: MOI PLUMMER Ordering User: SHAHID THOMAS Pantoprazole Sodium 40 MG Oral Tablet Gaby*30 Tab*5 Sig: Take 1 Tablet by mouth in the morning. Authorizing Provider: MOI PLUMMER Ordering User: SHAHID THOMAS Last Visit: 03/01/2023 (in office), Visit date not found (telemedicine) Next Visit: Visit date not found If no future appointments scheduled, and last appointment is greater than a year ago, please schedule patient for a follow-up appointment Last date the medication was ordered: 03/01/2023 Is this request for a controlled substance?No [...] 06/17/2023 Office Visit Dermatology Tristin Alexander MD [address] [place] [address], [place] [address] 06/27/2023 Procedure Only Endoscopy Tobin Silva MD [address] [place] [address] 07/03/2023 Office Visit Pulmonary Huan Branham MD [address] [place] [phone] Health Maintenance Due Date Last Done Comments [...] this encounter Medical Devices Implanted Type Area Area Plant Manager Device Identifier Shelf Expiration Date Model / Serial / Lot Accolade Ii 127 Deg Sz 4 - [id number] Implanted:Qty: 1 on 12/05/2020 by Rodolfo Park, DO at OR [facility] Right: Hip KANDICE : ORTHOPAEDICS 11/07/2025 [id number] / / [id number] documented as of this encounter Visit Diagnoses Diagnosis Rash and nonspecific skin eruption Rash and other nonspecific skin eruption documented in this encounter Advance Directives Latest [...] the patient have Health Care Power of Arcade Games Mechanic? Yes, not currently available Care Teams Line Operator Relationship Specialty Start Date End Date Moi Plummer MD [address] [place] [address] PCP - General Internal Medicine 11/05/22 documented as of this encounter
--- OUTSIDE RECORDS SUMMARY | 2023-08-23 09:09 | External Medical Summary | Summary of Care ---
Author Name Unknown Organization [facility] Address [address] [place] [address] Phone [phone] Care Team Providers Care Automatic Riveting Machine Operator Name Role Phone Roseann Plummer MD Primary Care Provider Reason for Visit * Reason Onset Date Comments Advice 05/17/2023 Encounter Details Date Type Department Care Team Description 05/17/2023 Telephone Orthopaedics [facility] [address] [facility] [place] [address] Rodolfo Park, [address] [facility] [place] [address] Advice Allergies Active Allergy Reactions Severity Noted Date Comments Buspirone Rash 11/01/2022 documented as of this encounter (statuses as of 05/17/2023) Medications Medication Sig Dispensed Refills Start Date [...] as of this encounter (statuses as of 05/17/2023) Active Problems Problem Noted Date Dependence on [...] as of this encounter (statuses as of 05/17/2023) Resolved Problems Problem Noted Date Resolved Date Chronic kidney disease, stage 3a 10/08/2022 03/01/2023 Overview: Per CKD protocol Substance abuse 05/25/2022 03/01/2023 Food insecurity 03/06/2021 01/11/2022 Overview: Per [facility] Protocol documented as of this encounter (statuses as of 05/17/2023) Immunizations Name Administration Dates Next Due Pneumococcal [...] encounter Miscellaneous Notes * Telephone Encounter - Rodolfo Park DO - 05/17/2023 3:11 PM EDT Contacted patient as we received a message that she stepped awkwardly and was having some degree ofright hip pain. This happened about a week ago. She reports focusing on rest and ice and states herpain is markedly improved. She does not report any further issues today. She will contact the office in the future should she require our services. All questions answered. documented in this encounter Plan of Treatment Upcoming Encounters Date Type Specialty Care Team Description 05/24/2023 Imaging Radiology 06/11/2023 Imaging Radiology 06/17/2023 Office Visit Dermatology Tristin Alexander MD [address] [facility] [place] [address] 06/27/2023 Procedure Only Endoscopy Tobin Silva MD [address] [place] [address] 07/03/2023 Office Visit [facility]monary [facility] [address] [facility] [phone] Health Maintenance Due Date Last Done Comments [...] this encounter Medical Devices Implanted Type Area Physical Geographer Device Identifier Shelf Expiration Date Model / Serial / Lot Accolade Ii 127 Deg Sz 4 - [id number] Implanted:Qty: 1 on 12/05/2020 by Rodolfo Park, at OR [facility] Right: Hip KANDICE : ORTHOPAEDICS 11/07/2025 [id number] / / [id number] documented as of this encounter Advance Directives [...] the patient have Health Care Power of Civil Celebrant? Yes, not currently available Care Teams Automatic Riveting Machine Operator Relationship Specialty Start Date End Date Roseann Plummer MD [address] [place] [address] PCP - General Internal Medicine 11/05/22 documented as of this encounter
--- OUTSIDE RECORDS SUMMARY | 2023-08-23 09:09 | External Medical Summary | Summary of Care ---
Author Name Unknown Organization [facility] Address [address] [place] [address] Phone [phone] Care Team Providers Care Printed Circuit Boards Solder Leveler Name Role Phone Moi Plummer MD Primary Care Provider Reason for Visit * Reason Onset Date Comments Medication Refill 05/14/2023 Encounter Details Date Type Department Care Team Description 05/14/2023 Refill Family Practice [facility] [address] [place] [address] Moi Plummer MD [address] [facility] [place] [address] Tobacco use disorder Allergies Active Allergy Reactions Severity Noted Date [...] by mouth in the morning. 30 Tablet 01/20/2023 Active Furosemide 40 MG Oral Tablet [...] 01/20/2023 Active Naftifine HCl 2 % External CreamIndications: Rash and nonspecific skin eruption Apply topically to affected area daily. Apply to rash on thighs, buttocks, hands. 45 g 03/01/2023 Active Tolnaftate 1 % External CreamIndications: Rash and nonspecific skin eruption Apply topically to affected area 2 times a day. Apply to thighs and lower back/gluteal cleft. 113 g 03/07/2023 Active Bisacodyl 5 MG Oral Tablet [...] every morning 90 Tablet 1 05/03/2023 Active Nicotine 7 MG/24HR Transdermal Patch 24 Hour (Nicoderm CQ)Indications:To bacco use disorder Place 1 Patch topically on the skin daily. 14 Patch 0 05/15/2023 Active Nicotine 7 MG/24HR Transdermal Patch 24 Hour (Nicoderm CQ)Indications:To bacco use disorder Place 1 Patch topically on the skin daily. 14 Patch 0 05/02/2023 3 Discontinue d(Refill) Hospital, Clinic, or Other [...] right lung 05/25/2022 Medical home patient encounter 2 Food insecurity 05/07/2022 Overview: [facility] [...] encounter Miscellaneous Notes * Telephone Encounter - Lali Sanchez vera - 05/15/2023 8:57 AM EDTSigned Prescriptions: Disp Refills Nicotine 7 MG/24HR Transdermal Patch 24 Ho*14 Pat*0 Sig: Place 1Patch topically on the skin daily.Authorizing Provider: MOI PLUMMER User: LALI SANCHEZ documented in this encounter Plan of Treatment Upcoming Encounters Date Type Specialty Care Team Description 05/24/2023 Imaging Radiology 06/11/2023 Imaging Radiology 06/17/2023 Office Visit Dermatology Tristin Alexander MD [address] [facility], [place] [phone] 06/27/2023 Procedure Only Endoscopy Tobin Silva MD [address] [place] [address] 07/03/2023 Office Visit Pulmonary Huan Branham MD [address] [place] [phone] Health Maintenance Due Date Last Done Comments DISCUSS TOBACCO CESSATION (REFER TO SMARTSET #3290) 1965 Hepatitis B (1 of 3 - [...] this encounter Medical Devices Implanted Type Area Latin Teacher Device Identifier Shelf Expiration Date Model / Serial / Lot Accolade Ii 127 Deg Sz 4 - [id number] Implanted:Qty: 1 on 12/05/2020 by Rodolfo Park, DO at OR [facility] Right: Hip KANDICE : ORTHOPAEDICS 11/07/2025 [id number] / / [id number] documented as of this encounter Visit Diagnoses [...] the patient have Health Care Power of Successfactors Consultant? Yes, not currently available Care Teams Printed Circuit Boards Solder Leveler Relationship Specialty Start Date End Date Moi Plummer MD [address] [place] [address] PCP - General Internal Medicine 11/05/22 documented as of this encounter
--- OUTSIDE RECORDS SUMMARY | 2023-08-23 09:09 | External Medical Summary | Summary of Care ---
Author Name Unknown Organization [facility] Address [address] [place] [address] Phone [phone] Care Team Providers Care Egg Trayer Name Role Phone Joe Lockwood DO Primary Care Provider [phone] Encounter Details Date Type Department Care Team (Latest Contact Info) Description 05/16/2022 1:45 PM EDT - 05/16/2022 5:04 PM EDT Hospital Encounter Radiology Film File [address] [place] [address] Discharge Disposition: Home - Self [...] 9:30 AM EST Procedure Only Endoscopy, [facility] [address] [place] [address] Tobin Silva MD [address] [place] [address] 07/18/2023 11:45 AM EST Imaging Radiology [facility] [address] [place] [address] Health Maintenance Due Date Last Done Comments DISCUSS TOBACCO CESSATION (REFER TO SMARTSET #4171) 1965 Hepatitis B (1 of 3 - [...] this encounter Medical Devices Implanted Type Area Dumpcart Driver Device Identifier Shelf Expiration Date Model / Serial / Lot Accolade Ii 127 Deg Sz 4 - [id number] Implanted:Qty: 1 on 12/05/2020 by Rodolfo Park, DO at OR [facility] Right: Hip KANDICE : ORTHOPAEDICS 11/07/2025 [id number] / / [id number] documented as of this encounter Procedures Procedure Name Priority Date/Time Associated Diagnosis Comments RADIOLOGY EXAM - GENERAL RAD (IMAGES ONLY,NO REPORT) Routine 05/16/2022 1:45 PM EDT documented in this encounter Results * RADIOLOGY EXAM - GENERAL RAD (IMAGES ONLY,NO REPORT) (05/16/2022 1:45 PM EDT) 05/16/2022 1:45 PM EDT Narrative Scheduling, Silent - 06/18/2023 11:47 AM EST This is an imaging study not interpreted or resulted by a [facility] or prollie contracted radiologist. Roseann Plummer MD RADIOLOGY (RAD [...] the patient have Health Care Power of Major Account Representative? Yes, not currently available Care Teams Egg Trayer Relationship Specialty Start Date End Date Joe Lockwood DO PCP - General Family Medicine 02/25/20 11/04/22 documented as of this encounter
--- OUTSIDE RECORDS SUMMARY | 2023-08-23 09:09 | External Medical Summary | Summary of Care ---
Author Name Unknown Organization [facility] Address [address] [place] [address] Phone [phone] Care Team Providers Care Reel Man Name Role Phone Roseann Plummer MD Primary Care Provider Reason for Referral * Evaluate & Treat - Unlimited Visits (Within 10 days (routine)) - Authorized Specialty Diagnoses / Procedures Referred By Contmaribell t Referred To Contact Pulmonary Diseases / Pulmonary Diagnoses Multiple lung nodules Joe Lockwood DO [address] [place] [address] Referral ID Status Reason Start Date Expiration Date Visits Requested Visits Authorized [id number] Authorized Specialty Services Required 3 [phone] Question Answer Referral Priority Within 10 Days (Routine) Primary Reason for Referral? Lung Nodule/Mass Reason for Visit * Reason Onset Date Comments Test Results 06/12/2023 Encounter Details Date Type Department Care Team ([facility] st Contact Info) Description 06/12/2023 Telephone Family Practice [address] [facility] [place] [address] [place] [address] Joe Lockwood DO [address] [place] [address] Test Results Allergies Active Allergy Reactions Criticality Noted Date [...] encounter Miscellaneous Notes * Telephone Encounter - Joe Lockwood DO - 06/12/2023 4:45 PM EST Patient referred to [facility] lung nodule program for follow-up of multiple lung nodules. documented in this encounter Plan of Treatment Upcoming Encounters Date Type Department Care Team (Late st Contact Info) Description 06/17/2023 1:30 PM EST Office Visit Dermatology [facility] [address] [facility] [place] [address] Tristin Alexander MD [address] [facility] [place] [address] 06/18/2023 9:15 AM EST Imaging Radiology [address] [place] [address] 06/27/2023 9:30 AM EST Procedure Only Endoscopy, [facility] [address] [place] [address] Tobin Silva MD [address] [place] [address] Scheduled Referrals Name Type Priority Associated Diagnoses Order Schedule STAIR LUNG NODULE REFERRAL OP (SYSTEM FOR TRACKING ABNORMALITIES OF IMPORTANCE RELIABLY) Referral Within 10 days (routine) Multiple lung nodules Ordered: 06/12/2023 Health Maintenance Due Date Last Done Comments DISCUSS TOBACCO CESSATION (REFER TO SMARTSET #0350) 1965 Hepatitis B (1 of 3 - [...] this encounter Medical Devices Implanted Type Area Print Shop Stenographer Device Identifier Shelf Expiration Date Model / Serial / Lot Accolade Ii 127 Deg 4 - [id number] Implanted:Qty: 1 on 12/05/2020 by Rodolfo Park, at OR [facility] Right: Hip KANDICE : ORTHOPAEDICS 11/07/2025 [id number] / / [id number] documented as of this encounter Visit Diagnoses Diagnosis Multiple lung nodules- Primary Other nonspecific abnormal finding of lung field documented in this encounter Advance Directives Latest [...] the patient have Health Care Power of Outside Sales Account Manager? Yes, not currently available Care Teams Reel Man Relationship Specialty Start Date End Date Roseann Plummer MD [address] [place] [address] PCP - General Internal Medicine 11/05/22 documented as of this encounter
--- OUTSIDE RECORDS SUMMARY | 2023-08-23 09:10 | External Medical Summary | Summary of Care ---
Author Name Unknown Organization [facility] Address [address] [place] [address] Phone [phone] Care Team Providers Care Baker Paint Name Role Phone Roseann Plummer MD Primary Care Provider Reason for Visit * Reason Onset Date Comments Medication Refill 05/10/2023 Encounter Created in Error 05/10/2023 Encounter Details Date Type Department Care Team Description 05/10/2023 Refill Family [facility] [address] [place] [address] Roseann Plummer MD [address] [place] [address] Allergies Active Allergy Reactions Severity Noted Date Comments Buspirone Rash 11/01/2022 documented as of this encounter (statuses as of 05/10/2023) Medications Medication Sig Dispensed Refills Start Date [...] g 03/01/2023 Active Tolnaftate 1 % External CreamIndications:R [...] as of this encounter (statuses as of 05/10/2023) Active Problems Problem Noted Date Dependence on [...] as of this encounter (statuses as of 05/10/2023) Resolved Problems Problem Noted Date Resolved Date Chronic kidney disease, stage 3a 10/08/2022 03/01/2023 Overview: Per CKD protocol Substance abuse 05/25/2022 03/01/2023 Food insecurity 03/06/2021 01/11/2022 Overview: Per [facility] Protocol documented as of this encounter (statuses as of 05/10/2023) Immunizations Name Administration Dates Next Due Pneumococcal [...] encounter Miscellaneous Notes * Telephone Encounter - JAMAL Hairston - 05/10/2023 12:25 PM EDT error documented in this encounter Plan of Treatment Upcoming Encounters Date Type Specialty Care Team Description 05/14/2023 Imaging Radiology 06/11/2023 Imaging Radiology 06/17/2023 Office Visit Dermatology Tristin Alexander MD [address] [facility] [place] [address] 06/27/2023 Procedure Only Endoscopy Tobin Silva MD [address] [place], [place] [phone] 07/03/2023 Office Visit Pulmonary Huan Branham MD [address] [facility] [place] [address] Health Maintenance Due Date Last Done Comments DISCUSS TOBACCO CESSATION (REFER TO SMARTSET #9381) 1965 Hepatitis B (1 of 3 - [...] this encounter Medical Devices Implanted Type Area Automatic Lathe Operator Device Identifier Shelf Expiration Date Model / Serial / Lot Accolade Ii 127 Deg Sz 4 - [id number] Implanted:Qty: 1 on 12/05/2020 by Rodolfo Park, at OR [facility] Right: Hip KANDICE : ORTHOPAEDICS 11/07/2025 [id number] / / [id number] documented as of this encounter Advance Directives [...] the patient have Health Care Power of Claim Clinician? Yes, not currently available Care Teams Baker Paint Relationship Specialty Start Date End Date Roseann Plummer MD [address] [place] [address] PCP - General Internal Medicine 11/05/22 documented as of this encounter
--- OUTSIDE RECORDS SUMMARY | 2023-08-23 09:10 | External Medical Summary | Summary of Care ---
Author Name Unknown Organization [facility] Address [address] [place] [address] Phone [phone] Care Team Providers Care Landing Worker Name Role Phone Roseann Plummer MD Primary Care Provider Encounter Details Date Type Department Care Team Description 03/01/2023 Telephone Family Practice [facility] [address] [facility] [address] Roseann Plummer MD [address] [address] Allergies Active Allergy Reactions Severity Noted Date Comments Buspirone Rash 11/01/2022 documented as of this encounter (statuses as of 05/09/2023) Medications Medication Sig Dispensed Refills Start Date End Date Status methADONE 10 MG Tablet Take 1 Tablet by mouth once. 100mg daily 0 Active Metoprolol Succinate ER 25 MG Oral Tablet Extended Release 24 Hour (toPROL XL)Indications:H TN, goal below 130/80 take 1 tablet by mouth twice a day 180 Tablet 3 2 Active Additional Information Patient taking differently: 12.5 mg BID (.AM/PM), take 1 tablet by mouth twice a day, Reported on 09/28/2022 Umeclidinium-Colette anterol 62.5-25 MCG/ACT Inhalation Aerosol Powder Breath Activated (ANORO ellipta)Indicati ons:COPD, mild (HCC) Inhale 1 Puff by mouth in the morning. 60 Blister Dosing Unit 11 3 Active Albuterol Sulfate HFA 108 (90 Base) MCG/ACT Inhalation Aerosol SolutionIndicati ons:Cough INHALE 2 PUFFS BY MOUTH EVERY 6 HOURS NEEDED FOR COUGH 18 g 5 3 Active clonazePAM 0.5 MG Oral Tablet (KlonoPIN)Indica tions:Situationa l anxiety Take 1 tablet by mouth 45-60 minutes before medical procedure or test. Do not drive or mix with alcohol. 2 Tablet 0 3 Active DULoxetine HCl 30 MG Oral Capsule Delayed Release Particles (Cymbalta)Indica tions:Mood disorder (HCC) take 1 capsule by mouth every morning 90 Capsule 3 3 Active Potassium Chloride Mayda ER 10 MEQ Oral Tablet Extended Release Take 1 Tablet by mouth in the morning. 30 Tablet 5 3 Active Furosemide 40 MG Oral Tablet (Lasix) Take 1 Tablet by mouth in the morning. 30 Tablet 5 3 Active Apixaban 5 MG Oral Tablet (Eliquis) Take 1 Tablet by mouth in the morning and 1 Tablet before bedtime. 60 Tablet 5 3 Active Ferrous Gluconate 324 (38 Fe) MG Oral Tablet Take 1 Tablet by mouth daily with breakfast. 30 Tablet 5 3 Active Pantoprazole Sodium 40 MG Oral Tablet Delayed Release (Protonix) Take 1 Tablet by mouth in the morning. 30 Tablet 5 3 Active Naftifine HCl 2 % External CreamIndications :Rash and nonspecific skin eruption Apply topically to affected area daily. Apply to rash on thighs, buttocks, hands. 45 g 1 3 Active amLODIPine Besylate 10 MG Oral Tablet (Norvasc)Indicat ions:HTN, goal below 130/80 Take by mouth 1 Tablet in the morning. 90 Tablet 3 2 05/03/20 23 Discontinued Bisacodyl 5 MG Oral Tablet Delayed Release (Dulcolax) Take 1 Tablet by mouth daily as needed for Constipation. 0 03/07/20 23 Discontinued(Ref ill) Nicotine 21 MG/24HR Transdermal Patch 24 Hour (Nicotine Step 1)Indications:To bacco use disorder Place 1 Patch topically on the skin daily. On upper body/upper arm, change once a day for 6 weeks. 42 Patch 0 3 04/15/20 23 Discontinued(Med ication List Clean Up) Nicotine 14 MG/24HR Transdermal Patch 24 Hour (Nicoderm CQ)Indications:T obacco use disorder Place 1 Patch topically on the skin daily. 28 Patch 0 3 05/02/20 23 Discontinued(Med ication/Dose Changed) Nicotine 7 MG/24HR Transdermal Patch 24 Hour (Nicoderm CQ)Indications:T obacco use disorder Place 1 Patch topically on the skin daily. 28 Patch 3 3 03/18/20 23 Discontinued(Ref ill) Clotrimazole 10 MG Mouth/Throat Bernardino (Mycelex Bernardino)Indicatio ns:Thrush Take 1 Lozenge by mouth 5 times a day for 14 days. Allow tablet to slowly dissolve in your mouth 70 Bernardino 0 3 03/15/20 23 Hospital, Clinic, or Other Facility Administered Medication Ordered Dose Route Frequency Start Date End Date Status Albuterol Sulfate (Proventil) (2.5 MG/3ML) 0.083% inhalation solution 2.5 mgIndications:COPD, mild (HCC) 2.5 mg NEBULIZER PRN 10/11/2022 Active documented as of this encounter (statuses as of 05/09/2023) Active Problems Problem Noted Date Dependence on [...] as of this encounter (statuses as of 05/09/2023) Resolved Problems Problem Noted Date Resolved Date Chronic kidney disease, stage 3a 10/08/2022 03/01/2023 Overview: Per CKD protocol Substance abuse 05/25/2022 03/01/2023 Food insecurity 03/06/2021 01/11/2022 Overview: Per [facility] Protocol documented as of this encounter (statuses as of 05/09/2023) Immunizations Name Administration Dates Next Due Pneumococcal [...] encounter Miscellaneous Notes * Telephone Encounter - Angela Gardner RRT-NPS - 03/04/2023 3:31 PM EDT [facility] reports they have tried to contact pt concerning the portable oxygen concentrator ordered. Left pt a voice message and my chart message, to call [facility] and speak to the POC department. * Telephone Encounter - Angela Gardner RRT-NPS - 03/04/2023 7:33 AM EDT Order for a portable oxygen concentrator was submitted to [facility] on 12/04/22. The order was then forwarded by [facility] to current DME Co [facility]. I have sent a message to [facility]/ [facility] to check on the status of the POC. * Telephone Encounter - Roseann Plummer MD - 03/01/2023 1:40 PM ED[address] Patient of Dr Vasques. Would like an [employer] oxygen machine sent to [facility] Needs follow-up visit scheduled, has transportation challenges documented in this encounter Plan of Treatment Upcoming Encounters Date Type Specialty Care Team Description 05/14/2023 Imaging Radiology 06/11/2023 Imaging Radiology 06/17/2023 Office Visit Dermatology Tristin Alexander MD [address] [place] [address] 06/27/2023 Procedure Only Endoscopy Tobin Silva MD [address] [place] [address] 07/03/2023 Office Visit Pulmonary [facility] [address] [facility] [address] Health Maintenance Due Date Last Done [...] this encounter Medical Devices Implanted Type Area Laboratory Animal Caretaker Device Identifier Shelf Expiration Date Model / Serial / Lot Accolade Ii 127 Deg Sz 4 - [id number] Implanted:Qty: 1 on 12/05/2020 by Rodolfo Park, DO at OR [facility] Right: Hip KANDICE : ORTHOPAEDICS 11/07/2025 [id number] / / [id number] documented as of this encounter Advance Directives [...] the patient have Health Care Power of Certified Medical Assistant? Yes, not currently available Care Teams Landing Worker Relationship Specialty Start Date End Date Roseann Plummer MD [address] [place] [address] PCP - General Internal Medicine 11/05/22 documented as of this encounter
--- OUTSIDE RECORDS SUMMARY | 2023-08-23 09:10 | External Medical Summary | Summary of Care ---
Author Name Unknown Organization [facility] Address [address] [place] [address] Phone [phone] Care Team Providers Care Potato Peeling Machine Operator Name Role Phone Roseann Plummer MD Primary Care Provider Reason for Visit * Reason Onset Date Comments Appointment 04/23/2023 Encounter Details Date Type Department Care Team Description 04/23/2023 Telephone [facility] [address] [facility] [address] [facility] C Middleton D[facility] [address] [facility] [address] Appointment Allergies Active Allergy Reactions Severity Noted Date Comments Buspirone Rash 11/01/2022 documented as of this encounter (statuses as of 05/08/2023) Medications Medication Sig Dispensed Refills Start Date [...] 6 HOURS NEEDED FOR COUGH 18 g 3 Active clonazePAM 0.5 MG Oral Tablet [...] rash on thighs, buttocks, hands. 45 g 3 Active Tolnaftate 1 % External CreamIndications :Rash and nonspecific skin eruption Apply topically to affected area 2 times a day. Apply to thighs and lower back/gluteal cleft. 113 g 3 Active Bisacodyl 5 MG Oral Tablet Delayed Release (Dulcolax) Take 1 Tablet by mouth daily as needed for Constipation. 30 Tablet 0 3 Active amLODIPine Besylate 10 MG Oral Tablet (Norvasc)Indicat ions:HTN, goal below 130/80 Take by mouth 1 Tablet in the morning. 90 Tablet 3 2 05/03/20 23 Discontinued Nicotine 14 MG/24HR Transdermal Patch 24 Hour (Nicoderm CQ)Indications:T obacco use disorder Place 1 Patch topically on the skin daily. 28 Patch 0 3 05/02/20 23 Discontinued(Med ication/Dose Changed) Clobetasol Propionate 0.05 % External Cream (Temovate)Indica tions:Psoriasis vulgaris Apply to rash on buttocks and thighs twice daily for 2 weeks 60 g 5 3 05/01/20 23 Discontinued(Ref ill) Nicotine 7 MG/24HR Transdermal Patch 24 Hour (Nicoderm CQ)Indications:T obacco use disorder Place 1 Patch topically on the skin daily. 14 Patch 0 3 05/01/20 23 Discontinued(Ref ill) Hospital, Clinic, or Other Facility Administered Medication Ordered Dose Route Frequency Start Date End Date Status Albuterol Sulfate (Proventil) (2.5 MG/3ML) 0.083% inhalation solution 2.5 mgIndications:COPD, mild (HCC) 2.5 mg NEBULIZER PRN 10/11/2022 Active documented as of this encounter (statuses as of 05/08/2023) Active Problems Problem Noted Date Dependence on [...] as of this encounter (statuses as of 05/08/2023) Resolved Problems Problem Noted Date Resolved Date Chronic kidney disease, stage 3a 10/08/2022 03/01/2023 Overview: Per CKD protocol Substance abuse 05/25/2022 03/01/2023 Food insecurity 03/06/2021 01/11/2022 Overview: Per [facility] Protocol documented as of this encounter (statuses as of 05/08/2023) Immunizations Name Administration Dates Next Due Pneumococcal [...] encounter Miscellaneous Notes * Telephone Encounter - Lisa Cee - 05/08/2023 8:26 AM EDT LM for pt to call back to let us know which local panel machine tender outside the system she'd like us to fax the order to. Our panel machine tender do not see pts for routine foot care Locally there is [facility] and [facility] podiatry * Telephone Encounter - Bashir Funez - 05/06/2023 8:49 AM EDT LM for pt to call back to let us know which local panel machine tender outside the system she'd like us to fax the order to. * Telephone Encounter - Misty Kaplan - 04/24/2023 3:03 PM EDT Appt was cx * Telephone Encounter - Maria C Middleton DPM - 04/23/2023 7:55 AM EDT Can you please call pt to cancel appointment. Referral for routine foot care. Please give list of local providers. documented in this encounter Plan of Treatment Upcoming Encounters Date Type Specialty Care Team Description 05/09/2023 Office Visit Dermatology Dinah Walker MD [address] [place] [address] 05/14/2023 Imaging Radiology 06/11/2023 Imaging Radiology 06/17/2023 Office Visit Dermatology Tristin Alexander MD [address] [place] [address] 06/27/2023 Procedure Only Endoscopy Tobin Silva MD [address] [place] [address] 07/03/2023 Office Visit Pulmonary Huan Branham MD [address] [facility] [place] [address] Health Maintenance Due Date Last Done Comments [...] this encounter Medical Devices Implanted Type Area Emergency Room Orderly Device Identifier Shelf Expiration Date Model / Serial / Lot Accolade Ii 127 Deg Sz 4 - [id number] Implanted:Qty: 1 on 12/05/2020 by Rodolfo Park, DO at OR [facility] Right: Hip KANDICE : ORTHOPAEDICS 11/07/2025 [id number] / / [id number] documented as of this encounter Advance Directives [...] the patient have Health Care Power of Teacher Public Health? Yes, not currently available Care Teams Potato Peeling Machine Operator Relationship Specialty Start Date End Date Roseann Plummer MD [address] [place] [address] PCP - General Internal Medicine 11/05/22 documented as of this encounter
--- OUTSIDE RECORDS SUMMARY | 2023-08-23 09:10 | External Medical Summary | Summary of Care ---
Author Name Unknown Organization [facility] Address [address] [place] [address] Phone [phone] Care Team Providers Care Tube Laser Operator Name Role Phone Roseann Plummer MD Primary Care Provider Reason for Visit * Reason Onset Date Comments Appointment 04/23/2023 Encounter Details Date Type Department Care Team Description 04/23/2023 Telephone Podiatry [facility] [address] [facility] [address] Maria C Middleton DPM [address] [facility] [place] [address] Appointment Allergies Active Allergy Reactions Severity Noted [...] * Telephone Encounter - Lisa Cee - 05/10/2023 6:59 AM EDT Letter sent * Telephone Encounter - Lisa Cee - 05/08/2023 8:26 AM EDT LM for pt to call back to let us know which local retail banking manager outside the system she'd like us to fax the order to. Our retail banking manager do not see pts for routine foot care Locally there is [facility] foot[facility]ankle and [facility] podiatry * Telephone Encounter - Bashir Funez - 05/06/2023 8:49 AM EDT LM for pt to call back to let us know which local retail banking manager outside the system she'd like us to [...] Visit Dermatology Tristin Alexander MD [address] [place] [facility] [address] 06/27/2023 Procedure Only Endoscopy Tobin Silva MD [address] [place] [address] 07/03/2023 Office Visit Pulmonary Huan Branham MD [address] [place] [phone] Health Maintenance Due Date Last Done Comments [...] this encounter Medical Devices Implanted Type Area Batch Mixing Truck Driver Device Identifier Shelf Expiration Date Model / Serial / Lot Accolade Ii 127 Deg Sz 4 - [id number] Implanted:Qty: 1 on 12/05/2020 by Rodolfo Park, DO at OR [facility] Right: Hip KANDICE : ORTHOPAEDICS 11/07/2025 [id number] / / [id number] documented as of this encounter Advance Directives [...] the patient have Health Care Power of Bobbin Cleaner Hand? Yes, not currently available Care Teams Tube Laser Operator Relationship Specialty Start Date End Date Roseann Plummer MD [address] [place] [address] PCP - General Internal Medicine 11/05/22 documented as of this encounter
--- OUTSIDE RECORDS SUMMARY | 2023-08-23 09:10 | External Medical Summary | Summary of Care ---
Author Name Unknown Organization [facility] Address [address] [place] [address] Phone [phone] Care Team Providers Care Frame Sample And Pattern Supervisor Name Role Phone Roseann Plummer MD Primary Care Provider Reason for Visit * Reason Onset Date Comments Medication Refill 05/10/2023 Encounter Details Date Type Department Care Team Description 05/10/2023 Telephone Family Practice [facility] [address] [facility] [address] [facility]ann [facility] MD [address] [facility] [address] Medication Refill Allergies Active Allergy Reactions Severity Noted Date [...] and 1 Tablet before bedtime. 60 Tablet 01/20/2023 Active Ferrous Gluconate 324 (38 Fe) [...] Telephone Encounter - JAMAL Hairston - 05/10/2023 12:22 PM EDT [facility] [employer] called stating they faxed a form for a re-evaluation for oxygen. Please fill out form for continuing oxygen for the Pt. Thank you, Soledad Sainz, [facility] Dispatcher Automobile Rental II [facility])(Formerly Telepharmacy) 05/10/2023,12:23 PM documented in this encounter Plan of Treatment Upcoming Encounters Date Type Specialty Care Team Description 05/14/2023 Imaging Radiology 06/11/2023 Imaging Radiology 06/17/2023 Office Visit Dermatology Tristin Alexander MD [address] [place] [address] 06/27/2023 Procedure Only Endoscopy Tobin Silva MD [address] [place] [address] 07/03/2023 Office Visit Pulmonary [facility] Branham [facility] [address] [facility] [phone] Health Maintenance Due Date Last Done Comments [...] Accolade Ii 127 Deg Sz 4 - [id number] Implanted:Qty: 1 on 12/05/2020 by Rodolfo Park, at OR [facility] Right: Hip KANDICE : ORTHOPAEDICS 11/07/2025 [id number] / / [id number] documented as of this encounter Advance Directives [...] the patient have Health Care Power of Manager Behavior? Yes, not currently available Care Teams Frame Sample And Pattern Supervisor Relationship Specialty Start Date End Date Roseann Plummer MD [address] [place] [address] PCP - General Internal Medicine 11/05/22 documented as of this encounter
--- OUTSIDE RECORDS SUMMARY | 2023-08-23 09:10 | External Medical Summary | Summary of Care ---
Author Name Unknown Organization [facility] Address [address] [place] [address] Phone [phone] Care Team Providers Care Foreign Food Specialty Cook Name Role Phone Roseann Plummer MD Primary Care Provider Reason for Visit * Reason Onset Date Comments Medication Refill 05/10/2023 Encounter Details Date Type Department Care Team Description 05/10/2023 Telephone Family Practice [facility] [address] [facility] [address] Roseann Plummer MD [address] [facility] [address] Medication Refill Allergies Active Allergy Reactions Severity [...] encounter Miscellaneous Notes * Telephone Encounter - Manjula Harper LPN - 05/10/2023 3:46 PM EDT Did you get any form from [employer]? Maybe this goes to Pulm? Has seen them in September and appt inDec. * Telephone Encounter - JAMAL Hairston - 05/10/2023 12:22 PM EDT [employer] called stating they faxed a form for a re-evaluation for oxygen. Please fill out form for continuing oxygen for the Pt. Thank you, Soledad Sainz [facility] Station Repairer II [facility])(Formerly Telepharmacy) 05/10/2023,12:23 PM documented in this encounter Plan of Treatment Upcoming Encounters Date Type Specialty Care Team Description 05/14/2023 Imaging Radiology 06/11/2023 Imaging Radiology 06/17/2023 Office Visit Dermatology Tristin Alexander MD [address] [facility] [address] 06/27/2023 Procedure Only Endoscopy Tobin Silva MD [address] [place] [address] 07/03/2023 Office Visit Pulmonary Huan Branham MD [address] [place] [phone] Health Maintenance Due Date Last Done Comments DISCUSS TOBACCO CESSATION (REFER TO SMARTSET #7691) 1965 Hepatitis B (1 of 3 - [...] this encounter Medical Devices Implanted Type Area Onsite Case Manager Device Identifier Shelf Expiration Date Model / Serial / Lot Accolade Ii 127 Deg Sz 4 - [id number] Implanted:Qty: 1 on 12/05/2020 by Rodolfo Park, DO at OR [facility] Right: Hip KANDICE : ORTHOPAEDICS 11/07/2025 [id number] / / [id number] documented as of this encounter Advance Directives [...] the patient have Health Care Power of Engine Oiler? Yes, not currently available Care Teams Foreign Food Specialty Cook Relationship Specialty Start Date End Date Roseann Plummer MD [address] [place] [address] PCP - General Internal Medicine 11/05/22 documented as of this encounter
--- OUTSIDE RECORDS SUMMARY | 2023-08-23 09:10 | External Medical Summary | Summary of Care ---
Author Name Unknown Organization [facility] Address [address] [place] [address] Phone [phone] Care Team Providers Care Urban Renewal Manager Name Role Phone Roseann Plummer MD Primary Care Provider Reason for Visit * Reason Onset Date Comments Medication Refill 05/10/2023 Encounter Details Date Type Department Care Team Description 05/10/2023 Telephone Family Practice [facility] [address] [facility] [address] Roseann [facility]ummer MD [address] [facility] [address] Medication Refill Allergies Active Allergy Reactions Severity [...] JAMAL Hairston - 05/10/2023 12:22 PM EDT [facility] called stating they faxed a form for a re-evaluation for oxygen. Please fill out form for continuing oxygen for the Pt. Thank you, Soledad Sainz, [facility] Tree Trimming Supervisor II [facility])(Formerly Telepharmacy) 05/10/2023,12:23 PM documented in this encounter Plan of Treatment Upcoming Encounters Date Type Specialty Care Team Description 05/14/2023 Imaging Radiology 06/11/2023 Imaging Radiology 06/17/2023 Office Visit Dermatology Trisitn Alexander MD [address] [place] [address] 06/27/2023 Procedure Only Endoscopy Tobin Silva MD [address] [place] [address] 07/03/2023 Office Visit Pulmonary Huan Branham MD [address] [facility] [phone] Health Maintenance Due Date Last Done Comments [...] this encounter Medical Devices Implanted Type Area Lathe Sander Device Identifier Shelf Expiration Date Model / Serial / Lot Accolade Ii 127 Deg Sz 4 - [id number] Implanted:Qty: 1 on 12/05/2020 by Rodolfo Park, at OR [facility] Right: Hip KANDICE : ORTHOPAEDICS 11/07/2025 [id number] / / [id number] documented as of this encounter Advance Directives [...] the patient have Health Care Power of Burr Machine Operator? Yes, not currently available Care Teams Urban Renewal Manager Relationship Specialty Start Date End Date Roseann Plmumer MD [address] [place] [address] PCP - General Internal Medicine 11/05/22 documented as of this encounter
--- OUTSIDE RECORDS SUMMARY | 2023-08-23 09:10 | External Medical Summary | Summary of Care ---
Author Name Unknown Organization [facility] Address [address] [place] [address] Phone [phone] Care Team Providers Care Ornamental Plasterer Helper Name Role Phone Roseann Plummer MD Primary Care Provider Reason for Visit * Reason Onset Date Comments Medication Refill 05/10/2023 Encounter Details Date Type Department Care Team Description 05/10/2023 Telephone Family Practice [facility] [address] [facility] [address] Roseann Plummer MD [address] [facility] [address] Medication Refill Allergies Active Allergy Reactions Severity [...] encounter Miscellaneous Notes * Telephone Encounter - Roseann Plummer MD - 05/10/2023 5:39 PM EDT Form competed and given to [employer] to fax. * Telephone Encounter - Manjula Harper LPN - 05/10/2023 3:46 PM EDT Did you get any form from [employer]? Maybe this goes to Pulm? Has seen them in September and appt inDec. * Telephone Encounter - JAMAL Hairston - 05/10/2023 12:22 PM EDT [employer] called stating they faxed a form for a re-evaluation for oxygen. Please fill out form for continuing oxygen for the Pt. Thank you, Soledad Sainz, [facility] Stitch Bonding Machine Tender II [facility])(Formerly Telepharmacy) 05/10/2023,12:23 PM documented in this encounter Plan of Treatment Upcoming Encounters Date Type Specialty Care Team Description 05/14/2023 Imaging Radiology 06/11/2023 Imaging Radiology 06/17/2023 Office Visit Dermatology Tristin Alexander MD [address] [place] [facility] [place] [address] 06/27/2023 Procedure Only Endoscopy Tobin Silva MD [address] [place] [address] 07/03/2023 Office Visit Pulmonary Huan Branham MD [address] [place] [address] Health Maintenance Due Date Last Done Comments DISCUSS TOBACCO CESSATION (REFER TO SMARTSET #2709) 1965 Hepatitis B (1 of 3 - [...] this encounter Medical Devices Implanted Type Area High School Band Director Device Identifier Shelf Expiration Date Model / Serial / Lot Accolade Ii 127 Deg Sz 4 - [id number] Implanted:Qty: 1 on 12/05/2020 by Rodolfo Park, at OR [facility] Right: Hip KANDICE : ORTHOPAEDICS 11/07/2025 [id number] / / [id number] documented as of this encounter Advance Directives [...] the patient have Health Care Power of Casino Host? Yes, not currently available Care Teams Ornamental Plasterer Helper Relationship Specialty Start Date End Date Roseann Plummer MD [address] [place] [address] PCP - General Internal Medicine 11/05/22 documented as of this encounter
--- OUTSIDE RECORDS SUMMARY | 2023-08-23 09:10 | External Medical Summary | Summary of Care ---
Author Name Unknown Organization [facility] Address [address] [place] [address] Phone [phone] Care Team Providers Care Pressurised Container Filler Name Role Phone Roseann Plummer MD Primary Care Provider Reason for Visit * Reason Onset Date Comments Advice 05/10/2023 Encounter Details Date Type Department Care Team Description 05/10/2023 Telephone Orthopaedics [facility] [address] [facility] [place] [address] [place], [address] [facility] [place] [address] Advice Allergies Active Allergy Reactions Severity Noted [...] 03/01/2023 Food insecurity 03/06/2021 01/11/2022 Overview: Per [email or web address] Protocol documented as of this [...] encounter Miscellaneous Notes * Telephone Encounter - CHARLENE Robledo - 05/10/2023 12:58 PM EDT Patient called in and stated she stepped down weird today and is now having a lot of right hip pain. Patient is concerned and would like a return call. Thank you. documented in this encounter Plan of Treatment Upcoming Encounters Date Type Specialty Care Team Description 05/14/2023 Imaging Radiology 06/11/2023 Imaging Radiology 06/17/2023 Office Visit [facility]ermatology [facility]in [place] [facility] [address] [facility] [address] 06/27/2023 Procedure Only Endoscopy Tobin Silva MD [address] [place] [phone] 07/03/2023 Office Visit Pulmonary Huan Branham MD [address] [place] [address] Health Maintenance Due Date Last Done Comments DISCUSS TOBACCO CESSATION (REFER TO SMARTSET #0284) 1965 Hepatitis B (1 of 3 - [...] this encounter Medical Devices Implanted Type Area Well Service Pump Equipment Operator Device Identifier Shelf Expiration Date Model / Serial / Lot Accolade Ii 127 Deg Sz 4 - [id number] Implanted:Qty: 1 on 12/05/2020 by Rodolfo Park, DO at OR [facility] Right: Hip KANDICE : ORTHOPAEDICS 11/07/2025 [id number] / / [id number] documented as of this encounter Advance Directives [...] the patient have Health Care Power of Procedure Analyst? Yes, not currently available Care Teams Pressurised Container Filler Relationship Specialty Start Date End Date Roseann Plummer MD [address] [place] [address] PCP - General Internal Medicine 11/05/22 documented as of this encounter
--- OUTSIDE RECORDS SUMMARY | 2023-08-23 09:10 | External Medical Summary | Summary of Care ---
Author Name Unknown Organization [facility] Address [address] [place] [address] Phone [phone] Care Team Providers Care Bike Designer Name Role Phone Roseann Plummer MD Primary Care Provider Reason for Visit * Reason Onset Date Comments Advice 05/10/2023 Encounter Details Date Type Department Care Team Description 05/10/2023 Telephone Orthopaedics [facility] [address] [facility] [place] [address] [place], [address] [facility] [place] [address] Advice Allergies Active Allergy Reactions Severity Noted [...] 03/01/2023 Food insecurity 03/06/2021 01/11/2022 Overview: Per [facility] Protocol documented as of this [...] Visit Dermatology Tristin [place] MD [address] [facility] [address] 06/27/2023 Procedure Only Endoscopy Tobin Silva MD [address] [place] [phone] 07/03/2023 Office Visit Pulmonary Huan Branham MD [address] [place] [address] Health Maintenance Due Date Last Done Comments DISCUSS TOBACCO CESSATION (REFER TO SMARTSET #1780) 1965 Hepatitis B (1 of 3 - [...] this encounter Medical Devices Implanted Type Area Mining Technician Device Identifier Shelf Expiration Date Model / Serial / Lot Accolade Ii 127 Deg Sz 4 - [id number] Implanted:Qty: 1 on 12/05/2020 by Rodolfo Park, DO at OR [facility] Right: Hip KANDICE : ORTHOPAEDICS 11/07/2025 [id number] / / [id number] documented as of this encounter Advance Directives [...] the patient have Health Care Power of Inside Sales Territory Manager? Yes, not currently available Care Teams Bike Designer Relationship Specialty Start Date End Date Roseann Plummer MD [address] [place] [address] PCP - General Internal Medicine 11/05/22 documented as of this encounter
--- OUTSIDE RECORDS SUMMARY | 2023-08-23 09:11 | External Medical Summary | Summary of Care ---
Author Name Unknown Organization [facility] Address [address] [place] [address] Phone [phone] Care Team Providers Care Section Crews Activities Clerk Name Role Phone Roseann Plummer MD Primary Care Provider Reason for Visit * Reason Onset Date Comments Appointment 04/23/2023 Encounter Details Date Type Department Care Team Description 04/23/2023 Telephone Podiatry [facility] [address] [facility] [address] Maria C Middleton DPM [address] [facility] [address] Appointment Allergies Active Allergy Reactions Severity Noted Date Comments Buspirone Rash 11/01/2022 documented as of this encounter (statuses as of 05/06/2023) Medications Medication Sig Dispensed Refills Start Date [...] as of this encounter (statuses as of 05/06/2023) Active Problems Problem Noted Date Dependence on [...] as of this encounter (statuses as of 05/06/2023) Resolved Problems Problem Noted Date Resolved Date Chronic kidney disease, stage 3a 10/08/2022 03/01/2023 Overview: Per CKD protocol Substance abuse 05/25/2022 03/01/2023 Food insecurity 03/06/2021 01/11/2022 Overview: Per [facility] Protocol documented as of this encounter (statuses as of 05/06/2023) Immunizations Name Administration Dates Next Due Pneumococcal [...] encounter Miscellaneous Notes * Telephone Encounter - Bashir Funez - 05/06/2023 8:49 AM EDT LM for pt to call back to let us know which local natural resource economist outside the system she'd like us to [...] Office Visit Dermatology Dinah Walker MD [address] [place], [place] [address] 05/14/2023 Imaging Radiology 06/11/2023 Imaging Radiology 06/17/2023 Office Visit Dermatology Tristin [place] MD [address] [place] [address] 06/27/2023 Procedure Only Endoscopy Tobin Silva MD [address] [place] [address] 07/03/2023 Office Visit Pulmonary Huan Branham MD [address] [place] [phone] Health Maintenance Due Date Last Done Comments [...] encounter Medical Devices Implanted Type Area Roll Filler Device Identifier Shelf Expiration Date Model / Serial / Lot Accolade Ii 127 Deg Sz 4 - [id number] Implanted:Qty: 1 on 12/05/2020 by Rodolfo Park, DO at OR [facility] Right: Hip KANDICE : ORTHOPAEDICS 11/07/2025 [id number] / / [id number] documented as of this encounter Advance Directives [...] the patient have Health Care Power of Help Desk Operator? Yes, not currently available Care Teams Section Crews Activities Clerk Relationship Specialty Start Date End Date Roseann Plummer MD [address] [place] [address] PCP - General Internal Medicine 11/05/22 documented as of this encounter
--- OUTSIDE RECORDS SUMMARY | 2023-08-23 09:11 | External Medical Summary | Summary of Care ---
Author Name Unknown Organization [facility] Address [address] [place] [address] Phone [phone] Care Team Providers Care Air Brush Artist Name Role Phone Moi Plummer MD Primary Care Provider Reason for Visit * Reason Comments eRx-Medication Refill Encounter Details Date Type Department Care Team Description 05/02/2023 Refill Family Practice [facility] [address] [facility] [place] [address] Joe Lockwood, DO [address] [place] [phone] HTN, goal below 130/80 Allergies Active Allergy Reactions Severity Noted Date Comments Buspirone Rash 11/01/2022 documented as of this encounter (statuses as of 05/03/2023) Medications Medication Sig Dispensed Refills Start Date [...] 11/18/2022 Active clonazePAM 0.5 MG Oral Tablet (KlonoPIN)Indica [...] 01/20/2023 Active Naftifine HCl 2 % External CreamIndications :Rash and nonspecific skin eruption Apply topically to affected area daily. Apply to rash on thighs, buttocks, hands. 45 g 1 03/01/2023 Active Tolnaftate 1 % External CreamIndications :Rash [...] Active Clobetasol Propionate 0.05 % External Cream (Temovate)Indica tions:Psoriasis vulgaris Apply to rash on buttocks and thighs twice daily for 2 weeks 60 g 5 05/02/2023 Active amLODIPine Besylate 10 MG Oral Tablet (Norvasc)Indicat ions:HTN, goal below 130/80 take 1 tablet by mouth every morning 90 Tablet 1 05/03/2023 Active amLODIPine Besylate 10 MG Oral Tablet (Norvasc)Indicat ions:HTN, goal below 130/80 Take by mouth 1 Tablet in the morning. 90 Tablet 3 03/21/2022 05/03/20 23 Discontinued Hospital, Clinic, or Other Facility Administered Medication Ordered Dose Route Frequency Start Date End Date Status Albuterol Sulfate (Proventil) (2.5 MG/3ML) 0.083% inhalation solution 2.5 mgIndications:COPD, mild (HCC) 2.5 mg NEBULIZER PRN 10/11/2022 Active documented as of this encounter (statuses as of 05/03/2023) Active Problems Problem Noted Date Dependence on [...] as of this encounter (statuses as of 05/03/2023) Resolved Problems Problem Noted Date Resolved Date Chronic kidney disease, stage 3a 10/08/2022 03/01/2023 Overview: Per CKD protocol Substance abuse 05/25/2022 03/01/2023 Food insecurity 03/06/2021 01/11/2022 Overview: Per [facility] Protocol documented as of this encounter (statuses as of 05/03/2023) Immunizations Name Administration Dates Next Due Pneumococcal [...] Notes * Telephone Encounter - Kalpesh Nava RPh - 05/03/2023 8:12 AM EDT Signed Prescriptions: Disp Refills amLODIPine Besylate 10 MG Oral Tablet (Nor*90 Tab*1 Sig: take 1 tablet by mouth every morningAuthorizing Provider: MOI PLUMMER User: KALPESH NAVA documented in this encounter Plan of Treatment Upcoming Encounters Date Type Specialty Care Team Description 05/09/2023 Office Visit Dermatology Dinah Walker MD [address] [place] [address] 05/14/2023 Imaging Radiology 06/11/2023 Imaging Radiology 06/17/2023 Office Visit Dermatology Tristin [place] MD [address] [place] [address] 06/27/2023 Procedure Only Endoscopy Tobin Silva MD [address] [place] [address] 07/03/2023 Office Visit Pulmonary [facility]uan Branham [facility] [address] [facility] [place] [phone] Health Maintenance Due Date Last Done Comments DISCUSS TOBACCO CESSATION (REFER TO SMARTSET #1408) 1965 Hepatitis B (1 of 3 - [...] this encounter Medical Devices Implanted Type Area Manager Group Home Device Identifier Shelf Expiration Date Model / Serial / Lot Accolade Ii 127 Deg Sz 4 - [id number] Implanted:Qty: 1 on 12/05/2020 by Rodolfo Park, DO at OR [facility] Right: Hip KANDICE : ORTHOPAEDICS 11/07/2025 [id number] / / [id number] documented as of this encounter Visit Diagnoses [...] the patient have Health Care Power of Watch Assembly Inspector? Yes, not currently available Care Teams Air Brush Artist Relationship Specialty Start Date End Date Moi Plummer MD [address] [place] [address] PCP - General Internal Medicine 11/05/22 documented as of this encounter
--- OUTSIDE RECORDS SUMMARY | 2023-08-23 09:11 | External Medical Summary | Summary of Care ---
Author Name Unknown Organization [facility] Address [address] [place] [address] Phone [phone] Care Team Providers Care Commissioner Of Internal Revenue Name Role Phone Roseann Plummer MD Primary Care Provider Reason for Visit * Reason Onset Date Comments Appointment 04/23/2023 Encounter Details Date Type Department Care Team Description 04/23/2023 Telephone Podiatry [facility] [address] [facility] [place] [address] Maria C Middleton DPM [address] [facility] [place] [address] Appointment Allergies Active Allergy Reactions Severity Noted Date Comments Buspirone Rash 11/01/2022 documented as of this encounter (statuses as of 04/24/2023) Medications Medication Sig Dispensed Refills Start Date End Date Status methADONE 10 MG Tablet Take 1 Tablet by mouth once. 100mg daily 0 Active amLODIPine Besylate 10 MG Oral Tablet (Norvasc)Indicatio ns:HTN, goal below 130/80 Take by mouth 1 Tablet in the morning. 90 Tablet 3 03/21/2022 Active Metoprolol Succinate ER 25 MG Oral [...] with alcohol. 2 Tablet 0 12/04/2022 Active Nicotine 14 MG/24HR Transdermal Patch 24 Hour (Nicoderm CQ)Indications:Tob acco use disorder Place 1 Patch topically on the skin daily. 28 Patch 0 12/05/2022 Active DULoxetine HCl 30 MG Oral Capsule [...] in the morning. 30 Tablet 01/20/2023 Active Apixaban 5 MG Oral Tablet (Eliquis) Take 1 Tablet by mouth in the morning and 1 Tablet before bedtime. 60 Tablet 01/20/2023 Active Ferrous Gluconate 324 (38 Fe) MG Oral Tablet Take 1 Tablet by mouth daily with breakfast. 30 Tablet 01/20/2023 Active Pantoprazole Sodium 40 MG Oral Tablet Delayed Release (Protonix) Take 1 Tablet by mouth in the morning. 30 Tablet 01/20/2023 Active Naftifine HCl 2 % External [...] daily for 2 weeks 60 g 5 03/18/2023 Active Nicotine 7 MG/24HR Transdermal Patch 24 Hour (Nicoderm CQ)Indications:Tob acco use disorder Place 1 Patch topically on the skin daily. 14 Patch 0 04/15/2023 Active Hospital, Clinic, or Other Facility Administered Medication Ordered Dose Route Frequency Start Date End Date Status Albuterol Sulfate (Proventil) (2.5 MG/3ML) 0.083% inhalation solution 2.5 mgIndications:COPD, mild (HCC) 2.5 mg NEBULIZER PRN 10/11/2022 Active documented as of this encounter (statuses as of 04/24/2023) Active Problems Problem Noted Date Dependence on [...] as of this encounter (statuses as of 04/24/2023) Resolved Problems Problem Noted Date Resolved Date Chronic kidney disease, stage 3a 10/08/2022 03/01/2023 Overview: Per CKD protocol Substance abuse 05/25/2022 03/01/2023 Food insecurity 03/06/2021 01/11/2022 Overview: Per [facility] Protocol documented as of this encounter (statuses as of 04/24/2023) Immunizations Name Administration Dates Next Due Pneumococcal Polysaccharide PPV23 (Pneumovax) Seasonal Influenza Virus Vac cine, Unspecified Formulation 04/28/2020 Seasonal Influenza, PF, 6 mons & Above, IM , (Fl ulaval) 04/28/2020 TDAP (age 10 and older)(Boostrix) 04/28/2020 [...] encounter Miscellaneous Notes * Telephone Encounter - Misty Kaplan - 04/24/2023 3:03 PM EDT Appt was cx * Telephone Encounter - Maria C Middleton DPM - 04/23/2023 7:55 AM EDT Can you please call pt to cancel appointment. Referral for routine foot care. Please give list of local providers. documented in this encounter Plan of Treatment Upcoming Encounters Date Type Specialty Care Team Description 04/29/2023 Imaging Radiology 06/11/2023 Imaging Radiology 06/17/2023 Office Visit Dermatology Tristin [place] MD [address] [place] [facility] [place] [address] 06/27/2023 Procedure Only Endoscopy Tobin [place] MD [address] [place] [phone] 07/03/2023 Office Visit Pulmonary Huan Branham MD [address] [place] [phone] Health Maintenance Due Date Last Done Comments DISCUSS TOBACCO CESSATION (REFER TO SMARTSET #6112) 1965 Hepatitis B (1 of 3 - 3-dose series) 1965 COVID-19 Vaccine (#1) 02/09/1968 Alpha-1 Antitrypsin 1985 Pap Smear 1988 Cervical Cancer Screening 1997 HPV/Co-Test 1997 Cologuard 2012 Colonoscopy 2012 Colorectal Cancer Screening 2012 Fecal Occult Blood Test 2012 Sigmoidoscopy 2012 Zoster Vaccines (1 of [...] IN PAST YEAR FOR COPD 03/01/2024 03/01/2023 Albumin/Creatinine Ratio 04/26/2025 04/26/2022 Diabetes Screening 10/09/2025 [...] this encounter Medical Devices Implanted Type Area Head Waiter/Waitress Device Identifier Shelf Expiration Date Model / Serial / Lot Accolade Ii 127 Deg Sz 4 - [id number] Implanted:Qty: 1 on 12/05/2020 by Rodolfo Park, at OR [facility] Right: Hip KANDICE : ORTHOPAEDICS 11/07/2025 [id number] / / [id number] documented as of this encounter Advance Directives [...] the patient have Health Care Power of Hardware Designer? Yes, not currently available Care Teams Commissioner Of Internal Revenue Relationship Specialty Start Date End Date Roseann Plummer MD [address] [place] [address] PCP - General Internal Medicine 11/05/22 documented as of this encounter
--- OUTSIDE RECORDS SUMMARY | 2023-08-23 09:11 | External Medical Summary | Summary of Care ---
Author Name Unknown Organization [facility] Address [address] [place] [address] Phone [phone] Care Team Providers Care Family Practice Medical Doctor Name Role Phone Roseann Plummer MD Primary Care Provider Reason for Visit * Reason Onset Date Comments Appointment 04/23/2023 Encounter Details Date Type Department Care Team Description 04/23/2023 Telephone Podiatry [facility] [address] [facility] [place] [address] Maria C Middleton DPM [address] [facility] [address] Appointment Allergies Active Allergy Reactions Severity Noted Date Comments Buspirone Rash 11/01/2022 documented as of this encounter (statuses as of 04/23/2023) Medications Medication Sig Dispensed Refills Start Date [...] as of this encounter (statuses as of 04/23/2023) Active Problems Problem Noted Date Dependence on [...] as of this encounter (statuses as of 04/23/2023) Resolved Problems Problem Noted Date Resolved Date Chronic kidney disease, stage 3a 10/08/2022 03/01/2023 Overview: Per CKD protocol Substance abuse 05/25/2022 03/01/2023 Food insecurity 03/06/2021 01/11/2022 Overview: Per [facility] Protocol documented as of this encounter (statuses as of 04/23/2023) Immunizations Name Administration Dates Next Due Pneumococcal [...] encounter Miscellaneous Notes * Telephone Encounter - Maria C Middleton DPM - 04/23/2023 7:55 AM EDT Can you please call pt to cancel appointment. Referral for routine foot care. Please give list of local providers. documented in this encounter Plan of Treatment Upcoming Encounters Date Type Specialty Care Team Description 04/23/2023 Office Visit Podiatry Maria C Middleton DPM [address] [place] [address] 04/23/2023 Imaging Radiology 06/11/2023 Imaging Radiology 06/17/2023 Office Visit Dermatology Tristin [place] MD [address] [facility] [place] [address] 06/27/2023 Procedure Only Endoscopy Tobin Silva MD [address] [place] [address] 07/03/2023 Office Visit Pulmonary Huan Branham MD [address] [place] [address] Health Maintenance Due Date Last Done Comments DISCUSS TOBACCO CESSATION (REFER TO SMARTSET #2370) 1965 Hepatitis B (1 of 3 - [...] (2 - Td or Tdap) 04/28/2030 04/28/2020 Hepatitis C Screening Completed 02/23/2021 , 02/23/2021, 02/23/2021, Additional history exists GARDASIL-HPV IMMUNIZATION SERIES Aged Out No longer eligible based on patient's age to complete this topic MENINGOCOCCAL (MENACTRA/MENVEO) Aged Out No longer eligible based on patient's age to complete this topic documented as of this encounter Medical Devices Implanted Type Area Kiln Pusher Device Identifier Shelf Expiration Date Model / Serial / Lot Accolade Ii 127 Deg Sz 4 - [id number] Implanted:Qty: 1 on 12/05/2020 by Rodolfo Park, at OR [facility] Right: Hip KANDICE : ORTHOPAEDICS 11/07/2025 [id number] / / [id number] documented as of this encounter Advance Directives [...] patient have Health Care Power of Log Haul Operator? Yes, not currently available Care Teams Family Practice Medical Doctor Relationship Specialty Start Date End Date Roseann Plummer MD [address] [place] [address] PCP - General Internal Medicine 11/05/22 documented as of this encounter
--- OUTSIDE RECORDS SUMMARY | 2023-08-23 09:11 | External Medical Summary | Summary of Care ---
Author Name Unknown Organization [facility] Address [address] [place] [address] Phone [phone] Care Team Providers Care Correctional Officer Chief Name Role Phone Moi Plummer MD Primary Care Provider Reason for Visit * Reason Onset Date Comments Medication Refill 05/01/2023 Encounter Details Date Type Department Care Team Description 05/01/2023 Refill Family [facility] [address] [facility] [address] Moi [facility] [address] [facility] [address] Tobacco use disorder Allergies Active Allergy Reactions Severity Noted Date Comments Buspirone Rash 11/01/2022 documented as of this encounter (statuses as of 05/02/2023) Medications Medication Sig Dispensed Refills Start Date End Date Status methADONE 10 MG Tablet Take 1 Tablet by mouth once. 100mg daily 0 Active amLODIPine Besylate 10 MG Oral Tablet (Norvasc)Indicati ons:HTN, goal below 130/80 Take by mouth 1 [...] 1 03/01/2023 Active Tolnaftate 1 % External CreamIndications: [...] 2 weeks 60 g 5 05/02/2023 Active Nicotine 14 MG/24HR Transdermal Patch 24 Hour (Nicoderm CQ)Indications:To bacco use disorder Place 1 Patch topically on the skin daily. 28 Patch 0 12/05/2022 3 Discontinue d(Medicatio n/Dose Changed) Nicotine 7 MG/24HR Transdermal Patch 24 Hour (Nicoderm CQ)Indications:To bacco use disorder Place 1 Patch topically on the skin daily. 14 Patch 0 04/15/2023 3 Discontinue d(Refill) Hospital, Clinic, or Other Facility Administered Medication Ordered Dose Route Frequency Start Date End Date Status Albuterol Sulfate (Proventil) (2.5 MG/3ML) 0.083% inhalation solution 2.5 mgIndications:COPD, mild (HCC) 2.5 mg NEBULIZER PRN 10/11/2022 Active documented as of this encounter (statuses as of 05/02/2023) Active Problems Problem Noted Date Dependence on [...] as of this encounter (statuses as of 05/02/2023) Resolved Problems Problem Noted Date Resolved Date Chronic kidney disease, stage 3a 10/08/2022 03/01/2023 Overview: Per CKD protocol Substance abuse 05/25/2022 03/01/2023 Food insecurity 03/06/2021 01/11/2022 Overview: Per [facility] Protocol documented as of this encounter (statuses as of 05/02/2023) Immunizations Name Administration Dates Next Due Pneumococcal [...] Notes * Telephone Encounter - Susan Hernandez RPh - 05/02/2023 2:49 PM EDTSigned Prescriptions: Disp Refills Nicotine 7 MG/24HR Transdermal Patch 24 Ho*14 Pat*0 Sig: Place 1Patch topically on the skin daily.Authorizing Provider: MOI PLUMMER User: SUSAN HERNANDEZ * Telephone Encounter - Susan Hernandez RPh - 05/02/2023 2:40 PM EDT PC to patient to assess how she is doing with smoking cessation. Patient would like to try two moreweeks of the 7mg nicotine patch and she will call back if still needed. Thank you, Susan Hernandez, PharmD Clinical Pharmacist [facility] (formerly [employer]) [phone] 05/02/2023, 2:47 PM documented in this encounter Plan of Treatment Upcoming Encounters Date Type Specialty Care Team Description 05/09/2023 Office Visit Dermatology Dinah Walker MD [address] [place] [address] 05/14/2023 Imaging Radiology 06/11/2023 Imaging Radiology 06/17/2023 Office Visit Dermatology Tristin [place] MD [address] [place] [address] 06/27/2023 Procedure Only Endoscopy Tobin Silva MD [address] [place] [address] 07/03/2023 Office Visit Pulmonary Huan Branham MD [address] [place] [phone] Health Maintenance Due Date Last Done Comments DISCUSS TOBACCO CESSATION (REFER TO SMARTSET #3299) 1965 Hepatitis B (1 of 3 - [...] this encounter Medical Devices Implanted Type Area Clay Processing Factory Worker Device Identifier Shelf Expiration Date Model / Serial / Lot Accolade Ii 127 Deg Sz 4 - [id number] Implanted:Qty: 1 on 12/05/2020 by Rodolfo Park, at OR [facility] Right: Hip KANDICE : ORTHOPAEDICS 11/07/2025 [id number] / / [id number] documented as of this encounter Visit Diagnoses [...] the patient have Health Care Power of Over Short And Damage Clerk? Yes, not currently available Care Teams Correctional Officer Chief Relationship Specialty Start Date End Date Moi Plummer MD [address] [place] [address] PCP - General Internal Medicine 11/05/22 documented as of this encounter
--- OUTSIDE RECORDS SUMMARY | 2023-08-23 09:11 | External Medical Summary | Summary of Care ---
Author Name Unknown Organization [facility] Address [address] [place] [address] Phone [phone] Care Team Providers Care Office Automation Technician Name Role Phone Roseann Plummer MD Primary Care Provider Reason for Visit * Reason Onset Date Comments Medication Refill 05/01/2023 Encounter Details Date Type Department Care Team Description 05/01/2023 Refill Dermatology [facility] [place] [address] [facility] [place] [address] Tristin Alexander MD [address] [facility] [address] Psoriasis vulgaris* Allergies Active Allergy Reactions Severity Noted Date [...] skin daily. 14 Patch 0 04/15/2023 Active Clobetasol Propionate 0.05 % External Cream (Temovate)Indicat ions:Psoriasis vulgaris Apply to rash on buttocks and thighs twice daily for 2 weeks 60 g 5 05/02/2023 Active Clobetasol Propionate 0.05 % External Cream (Temovate)Indicat ions:Psoriasis vulgaris Apply to rash on buttocks and thighs twice daily for 2 weeks 60 g 5 03/18/2023 3 Discontinue d(Refill) Hospital, Clinic, or Other [...] encounter Miscellaneous Notes * Telephone Encounter - Tristin Alexander MD - 05/02/2023 8:37 AM EDT Signed Prescriptions: Disp Refills Clobetasol Propionate 0.05 % External Crea*60 g 5 Sig: Apply to rash on buttocks and thighs twice daily for 2 weeks Authorizing Provider: TRISTIN ALEXANDER * Telephone Encounter - Lisa aL LPN - 05/02/2023 7:57 AM EDTPending Prescriptions: Disp Refills Clobetasol Propionate 0.05 % External Crea*60 g 5 Sig: Apply torash on buttocks and thighs twice daily for 2 weeks documented in this encounter Plan of Treatment Upcoming Encounters Date Type Specialty Care Team Description 05/09/2023 Office Visit Dermatology Dinah [place] MD [address] [place] [address], [place] [address] 05/14/2023 Imaging Radiology 06/11/2023 Imaging Radiology 06/17/2023 Office Visit Dermatology Tristin Alexander MD [address] [facility], [place] [address] 06/27/2023 Procedure Only Endoscopy Tobin Silva MD [address] [place] [address] 07/03/2023 Office Visit [facility] [address] [phone] Health Maintenance Due Date Last Done Comments DISCUSS TOBACCO CESSATION (REFER TO SMARTSET #329) 1965 Hepatitis B (1 of 3 - [...] this encounter Medical Devices Implanted Type Area Warehouse Receiving Clerk Device Identifier Shelf Expiration Date Model / Serial / Lot Accolade Ii 127 Deg Sz 4 - [id number] Implanted:Qty: 1 on 12/05/2020 by Rodolfo Park, DO at OR [facility] Right: Hip KANDICE : ORTHOPAEDICS 11/07/2025 [id number] / / [id number] documented as of this encounter Visit Diagnoses Diagnosis Psoriasis vulgaris- Primary Other psoriasis documented in this encounter Advance Directives Latest [...] the patient have Health Care Power of Motor Vehicle Assembly Supervisor? Yes, not currently available Care Teams Office Automation Technician Relationship Specialty Start Date End Date Roseann Plummer MD [address] [place] [address] PCP - General Internal Medicine 11/05/22 documented as of this encounter
--- OUTSIDE RECORDS SUMMARY | 2023-08-23 09:11 | External Medical Summary | Summary of Care ---
Author Name Unknown Organization [facility] Address [address] [place] [address] Phone [phone] Care Team Providers Care Clerk Travel Reservations Name Role Phone Roseann Plummer MD Primary Care Provider Encounter Details Date Type Department Care Team Description 04/20/2023 Patient Reported Data Patient Survey Ortho OBERD Allergies Active Allergy Reactions Severity Noted Date Comments Buspirone Rash 11/01/2022 documented as of this encounter (statuses as of 04/20/2023) Medications Medication Sig Dispensed Refills Start Date [...] twice daily for 2 weeks 60 g 03/18/2023 Active Nicotine 7 MG/24HR Transdermal Patch [...] as of this encounter (statuses as of 04/20/2023) Active Problems Problem Noted Date Dependence on [...] as of this encounter (statuses as of 04/20/2023) Resolved Problems Problem Noted Date Resolved Date Chronic kidney disease, stage 3a 10/08/2022 03/01/2023 Overview: Per CKD protocol Substance abuse 05/25/2022 03/01/2023 Food insecurity 03/06/2021 01/11/2022 Overview: Per [facility] Protocol documented as of this encounter (statuses as of 04/20/2023) Immunizations Name Administration Dates Next Due Pneumococcal [...] Maria C Middleton DPM [address] [place] [address] 04/23/2023 Imaging Radiology 06/11/2023 Imaging Radiology 06/17/2023 Office Visit Dermatology Tristin Alexander MD [address] [place] [address] 06/27/2023 Procedure Only Endoscopy Tobin Silva MD [address] [place] [address] 07/03/2023 Office Visit Pulmonary Huan Branham MD [address] [place] [facility] [place] [place] [address] Health Maintenance Due Date Last Done Comments [...] this encounter Medical Devices Implanted Type Area Restaurant Management Internship Device Identifier Shelf Expiration Date Model / Serial / Lot Accolade Ii 127 Deg 4 - [id number] Implanted:Qty: 1 on 12/05/2020 by Rodolfo Park, DO at OR [facility] Right: Hip KANDICE : ORTHOPAEDICS 11/07/2025 [id number] / / [id number] documented as of this encounter Advance Directives [...] the patient have Health Care Power of Optics Test Technician? Yes, not currently available Care Teams Clerk Travel Reservations Relationship Specialty Start Date End Date Roseann Plummer MD [address] [place] [address] PCP - General Internal Medicine 11/05/22 documented as of this encounter
--- OUTSIDE RECORDS SUMMARY | 2023-08-23 09:11 | External Medical Summary | Summary of Care ---
Author Name Unknown Organization [facility] Address [address] [place] [address] Phone [phone] Care Team Providers Care Wine Merchant Name Role Phone Roseann Plummer MD Primary Care Provider Reason for Visit * Reason Onset Date Comments case management 05/03/2023 Encounter Details Date Type Department Care Team Description 05/03/2023 Tree Chipper Telephone Care Coordination [address] [place] [address] Agata Peck LCSW case management Allergies Active Allergy Reactions Severity [...] encounter Miscellaneous Notes * Telephone Encounter - Agata Peck LCSW - 05/03/2023 1:41 PM EDT Goal Review UTx2 Called [phone] Follow-up Routine Attempted Phone Call Second Attempt Call Outcome Left Voicemail/Message Plan To attempt another outreach Agata Peck LCSW Behavioral Health Tree Chipper - [facility] [phone] [email or web address] documented in this encounter Plan of Treatment Upcoming Encounters Date Type Specialty Care Team Description 05/09/2023 Office Visit Dermatology Dinah [place] MD [address] [facility] [place] [address] 05/14/2023 Imaging Radiology 06/11/2023 Imaging Radiology 06/17/2023 Office Visit Dermatology Tristin Alexander MD [address] [facility] [place] [address] 06/27/2023 Procedure Only Endoscopy Tobin Silva MD [address] [place] [address] 07/03/2023 Office Visit Pulmonary [facility] [address] [phone] Health Maintenance Due Date Last Done Comments DISCUSS TOBACCO CESSATION (REFER TO SMARTSET #5189) 1965 Hepatitis B (1 of 3 - [...] this encounter Medical Devices Implanted Type Area Underwriting Operations Manager Device Identifier Shelf Expiration Date Model / Serial / Lot Accolade Ii 127 Deg Sz 4 - [id number] Implanted:Qty: 1 on 12/05/2020 by Rodolof Park, at OR [facility] Right: Hip KANDICE : ORTHOPAEDICS 11/07/2025 [id number] / / [id number] documented as of this encounter Advance Directives [...] the patient have Health Care Power of Ore Miner? Yes, not currently available Care Teams Wine Merchant Relationship Specialty Start Date End Date Roseann Plummer MD [address] [place] [address] PCP - General Internal Medicine 11/05/22 documented as of this encounter
--- OUTSIDE RECORDS SUMMARY | 2023-08-23 09:11 | External Medical Summary | Summary of Care ---
Author Name Unknown Organization [facility] Address [address] [place] [address] Phone [phone] Care Team Providers Care Heel Cover Splitter Name Role Phone Roseann Plummer MD Primary Care Provider Encounter Details Date Type Department Care Team Description 04/22/2023 Patient Reported Data Patient Survey Ortho OBERD Allergies Active Allergy Reactions Severity Noted Date Comments Buspirone Rash 11/01/2022 documented as of this encounter (statuses as of 04/22/2023) Medications Medication Sig Dispensed Refills Start Date [...] as of this encounter (statuses as of 04/22/2023) Active Problems Problem Noted Date Dependence on [...] as of this encounter (statuses as of 04/22/2023) Resolved Problems Problem Noted Date Resolved Date Chronic kidney disease, stage 3a 10/08/2022 03/01/2023 Overview: Per CKD protocol Substance abuse 05/25/2022 03/01/2023 Food insecurity 03/06/2021 01/11/2022 Overview: Per [facility] Protocol documented as of this encounter (statuses as of 04/22/2023) Immunizations Name Administration Dates Next Due Pneumococcal [...] DPM [address] [place] [address] 04/23/2023 Imaging Radiology 06/11/2023 Imaging Radiology 06/17/2023 Office Visit Dermatology Tristin Alexander MD [address] [place] [address] 06/27/2023 Procedure Only Endoscopy Tobin Silva MD [address] [place] [address] 07/03/2023 Office Visit Pulmonary Huan Branham MD [address] [place] [facility] [place] [address] Health Maintenance Due Date Last Done Comments [...] this encounter Medical Devices Implanted Type Area Cash Management Associate Device Identifier Shelf Expiration Date Model / Serial / Lot Accolade Ii 127 Deg 4 - [id number] Implanted:Qty: 1 on 12/05/2020 by Rodolfo Park, DO at OR [facility] Right: Hip KANDICE : ORTHOPAEDICS 11/07/2025 [id number] / / [id number] documented as of this encounter Advance Directives [...] the patient have Health Care Power of Doctor Of Podiatry? Yes, not currently available Care Teams Heel Cover Splitter Relationship Specialty Start Date End Date Roseann Plummer MD [address] [place] [address] PCP - General Internal Medicine 11/05/22 documented as of this encounter
--- OUTSIDE RECORDS SUMMARY | 2023-08-23 09:11 | External Medical Summary | Summary of Care ---
Author Name Unknown Organization [facility] Address [address] [place] [address] Phone [phone] Care Team Providers Care Scale Assembly Set Up Worker Name Role Phone Roseann Plummer MD Primary Care Provider Reason for Visit * Reason Onset Date Comments Medication Refill 04/24/2023 Encounter Details Date Type Department Care Team Description 04/24/2023 Refill Family [facility] [address] [facility] [address] Roseann Plummer MD [address] [place] [address] Allergies Active Allergy Reactions Severity Noted Date [...] encounter Miscellaneous Notes * Telephone Encounter - Mandy Minor [facility] - 04/24/2023 3:05 PM EDTRefused Prescriptions: Disp Refills Ferrous Gluconate 324 (38 Fe) MG Oral Tabl*30 Tab*5 Sig: Take 1Tablet by mouth daily with breakfast.Refused By: MANDY MINOR for Refusal: Too soon------ documented in this encounter Plan of Treatment Upcoming Encounters Date Type Specialty Care Team Description 04/29/2023 Imaging Radiology 06/11/2023 Imaging Radiology 06/17/2023 Office Visit Dermatology Tristin Alexander MD [address] [facility] [place] [address] 06/27/2023 Procedure Only Endoscopy Tobin Silva MD [address] [place] [address] 07/03/2023 Office Visit Pulmonary Huan Branham MD [address] [place] [address] Health Maintenance Due Date Last Done Comments DISCUSS TOBACCO CESSATION (REFER TO SMARTSET #3350) 1965 Hepatitis B (1 of 3 - [...] this encounter Medical Devices Implanted Type Area Commercial Loan Assistant Device Identifier Shelf Expiration Date Model / Serial / Lot Accolade Ii 127 Deg Sz 4 - [id number] Implanted:Qty: 1 on 12/05/2020 by Rodolfo Park, at OR [facility] Right: Hip KANDICE : ORTHOPAEDICS 11/07/2025 [id number] / / [id number] documented as of this encounter Advance Directives [...] the patient have Health Care Power of Chef Instructor? Yes, not currently available Care Teams Scale Assembly Set Up Worker Relationship Specialty Start Date End Date Roseann Plummer MD [address] [place] [address] PCP - General Internal Medicine 11/05/22 documented as of this encounter
--- OUTSIDE RECORDS SUMMARY | 2023-08-23 09:11 | External Medical Summary ---
Author Name Unknown Address Unknown Organization [facility] - [address] [facility] [address] Laboratory Report Ordering Provider Test Date Status TIFFANI DAVIS 04/25/2023 14:25:00 Final Observation Date Value Abnormality Reference (Units ) Status Occult Blood (EIA) 04/25/2023 14:25:00 Negative N egative Final This testing was performed a s part of a [facility] Care[employer] fulfillment initiative Performing Location [facility] - [address] [facility] [address]
--- OUTSIDE RECORDS SUMMARY | 2023-08-23 09:12 | External Medical Summary | Summary of Care ---
Author Name Unknown Organization [facility] Address [address] [place] [address] Phone [phone] Care Team Providers Care Glass Worker Name Role Phone Roseann Plummer MD Primary Care Provider Reason for Visit * Reason Onset Date Comments Appointment 04/16/2023 Encounter Details Date Type Department Care Team Description 04/16/2023 Telephone Pulmonary Medicine, [place] [address] [place] [address] Caitlin Vasques, [address] [place] [address] Appointment Allergies Active Allergy Reactions Severity Noted Date Comments Buspirone Rash 11/01/2022 documented as of this encounter (statuses as of 04/16/2023) Medications Medication Sig Dispensed Refills Start Date [...] as of this encounter (statuses as of 04/16/2023) Active Problems Problem Noted Date Dependence on [...] as of this encounter (statuses as of 04/16/2023) Resolved Problems Problem Noted Date Resolved Date Chronic kidney disease, stage 3a 10/08/2022 03/01/2023 Overview: Per CKD protocol Substance abuse 05/25/2022 03/01/2023 Food insecurity 03/06/2021 01/11/2022 Overview: Per [facility] Protocol documented as of this encounter (statuses as of 04/16/2023) Immunizations Name Administration Dates Next Due Pneumococcal [...] Miscellaneous Notes * Telephone Encounter - CHARLENE uV - 04/16/2023 1:38 PM EDT Spoke to pt, she is being see in [facility] and would like to be removed from Dr. Vasques's call list. Will call or message if she needs us documented in this encounter Plan of Treatment Upcoming Encounters Date Type Specialty Care Team Description 04/23/2023 Office Visit Podiatry Maria C Middleton DPM [address] [place] [address] 04/23/2023 Imaging Radiology 06/11/2023 Imaging Radiology 06/17/2023 Office Visit Dermatology Tristin Alexander MD [address] [place] [address] 06/27/2023 Procedure Only Endoscopy Tobin Silva MD [address] [place] [address] 07/03/2023 Office Visit Pulmonary [facility]uan [facility] [address] [phone] Health Maintenance Due Date Last Done Comments DISCUSS TOBACCO CESSATION (REFER TO SMARTSET #2921) 1965 Hepatitis B (1 of 3 - [...] this encounter Medical Devices Implanted Type Area Perfusionist Device Identifier Shelf Expiration Date Model / Serial / Lot Accolade Ii 127 Deg Sz 4 - [id number] Implanted:Qty: 1 on 12/05/2020 by Rodolfo Park DO at OR [facility] Right: Hip KANDICE : ORTHOPAEDICS 11/07/2025 [id number] / / [id number] documented as of this encounter Advance Directives [...] the patient have Health Care Power of Superintendent Drilling? Yes, not currently available Care Teams Glass Worker Relationship Specialty Start Date End Date Roseann Plummer MD [address] [place] [address] PCP - General Internal Medicine 11/05/22 documented as of this encounter
--- OUTSIDE RECORDS SUMMARY | 2023-08-23 09:12 | External Medical Summary | Summary of Care ---
Author Name Unknown Organization [facility] Address [address] [place] [address] Phone [phone] Care Team Providers Care Transplant Registered Nurse Name Role Phone Roseann Plummer MD Primary Care Provider Encounter Details Date Type Department Care Team Description 04/19/2023 Patient Reported Data Patient Survey Ortho OBERD Allergies Active Allergy Reactions Severity Noted Date Comments Buspirone Rash 11/01/2022 documented as of this encounter (statuses as of 04/19/2023) Medications Medication Sig Dispensed Refills Start Date [...] as of this encounter (statuses as of 04/19/2023) Active Problems Problem Noted Date Dependence on [...] as of this encounter (statuses as of 04/19/2023) Resolved Problems Problem Noted Date Resolved Date Chronic kidney disease, stage 3a 10/08/2022 03/01/2023 Overview: Per CKD protocol Substance abuse 05/25/2022 03/01/2023 Food insecurity 03/06/2021 01/11/2022 Overview: Per [facility] Protocol documented as of this encounter (statuses as of 04/19/2023) Immunizations Name Administration Dates Next Due Pneumococcal [...] DPM [address] [place] [address] 04/23/2023 Imaging Radiology 06/11/2023 Imaging Radiology 06/17/2023 Office Visit Dermatology Tristin Alexander MD [address] [place] [address] 06/27/2023 Procedure Only Endoscopy Tobin Silva MD [address] [place] [address] 07/03/2023 Office Visit Pulmonary Huan Branham MD [address] [place] [facility] [place] [address] Health Maintenance Due Date Last Done Comments [...] this encounter Medical Devices Implanted Type Area Waiter/Waitress First Class Device Identifier Shelf Expiration Date Model / Serial / Lot Accolade Ii 127 Deg 4 - [id number] Implanted:Qty: 1 on 12/05/2020 by Rodolfo Park, DO at OR [facility] Right: Hip KANDICE : ORTHOPAEDICS 11/07/2025 [id number] / / [id number] documented as of this encounter Advance Directives [...] the patient have Health Care Power of Nut Roaster Helper? Yes, not currently available Care Teams Transplant Registered Nurse Relationship Specialty Start Date End Date Roseann Plummer MD [address] [place] [address] PCP - General Internal Medicine 11/05/22 documented as of this encounter
--- OUTSIDE RECORDS SUMMARY | 2023-08-23 09:12 | External Medical Summary | Summary of Care ---
Author Name Unknown Organization [facility] Address [address] [place] [address] Phone [phone] Care Team Providers Care Leather Shaver Name Role Phone Roseann Plummer MD Primary [...] DPM [address] [place] [address] 04/23/2023 Imaging Radiology 06/11/2023 Imaging Radiology 06/17/2023 Office Visit Dermatology Tristin Alexander MD [address] [place] [address] 06/27/2023 Procedure Only Endoscopy Tobin Silva MD [address] [place] [address] 07/03/2023 Office Visit Pulmonary Huan Branham MD [address] [place] [facility] [place] [address] Health Maintenance Due Date Last Done Comments [...] this encounter Medical Devices Implanted Type Area Clearance Center Manager Device Identifier Shelf Expiration Date Model / Serial / Lot Accolade Ii 127 Deg 4 - [id number] Implanted:Qty: 1 on 12/05/2020 by Rodolfo Park, DO at OR [facility] Right: Hip KANDICE : ORTHOPAEDICS 11/07/2025 [id number] / / [id number] documented as of this encounter Advance Directives [...] the patient have Health Care Power of Veterinary Surgeon? Yes, not currently available Care Teams Leather Shaver Relationship Specialty Start Date End Date Roseann Plummer MD [address] [place] [address] PCP - General Internal Medicine 11/05/22 documented as of this encounter
--- OUTSIDE RECORDS SUMMARY | 2023-08-23 09:12 | External Medical Summary | Summary of Care ---
Author Name Unknown Organization [facility] Address [address] [place] [address] Phone [phone] Care Team Providers Care Utility System Repairer Name Role Phone Roseann Plummer MD Primary Care Provider Reason for Visit * Reason Onset Date Comments Follow Up 04/15/2023 Encounter Details Date Type Department Care Team Description 04/15/2023 Telephone Pulmonary Medicine, [place] [address] [place] [address] Caitlin Vasques, [address] [place] [address] Follow Up Allergies Active Allergy Reactions Severity Noted Date Comments Buspirone Rash 11/01/2022 documented as of this encounter (statuses as of 04/15/2023) Medications Medication Sig Dispensed Refills Start Date [...] as of this encounter (statuses as of 04/15/2023) Active Problems Problem Noted Date Dependence on [...] as of this encounter (statuses as of 04/15/2023) Resolved Problems Problem Noted Date Resolved Date Chronic kidney disease, stage 3a 10/08/2022 03/01/2023 Overview: Per CKD protocol Substance abuse 05/25/2022 03/01/2023 Food insecurity 03/06/2021 01/11/2022 Overview: Per [facility] Protocol documented as of this encounter (statuses as of 04/15/2023) Immunizations Name Administration Dates Next Due Pneumococcal [...] encounter Miscellaneous Notes * Telephone Encounter - Katelyn Molina MED ASSIST - 04/15/2023 3:16 PM EDT Pt replied to Pogoplug message: "I'm feeling better." * Telephone Encounter - Larissa Adames RN - 04/15/2023 12:36 PM EDT My G Message sent to Bhumika requesting her to contact the Pulmonary clinic for follow up regardingrespiratory status. documented in this encounter Plan of Treatment Upcoming Encounters Date Type Specialty Care Team Description 04/23/2023 Office Visit Podiatry Maria C Middleton DPM [address] [place] [address] 04/23/2023 Imaging Radiology 06/11/2023 Imaging Radiology 06/17/2023 Office Visit Dermatology Tristin Alexander MD [address] [place] [address] 06/27/2023 Procedure Only Endoscopy Tobin Silva MD [address] [place] [address] 07/03/2023 Office Visit Pulmonary Huan Branham MD [address] [place] [address] Health Maintenance Due Date Last Done Comments [...] this encounter Medical Devices Implanted Type Area Landscape And Yardwork Laborer Device Identifier Shelf Expiration Date Model / Serial / Lot Accolade Ii 127 Deg Sz 4 - [id number] Implanted:Qty: 1 on 12/05/2020 by Rodolfo Park, DO at OR [facility] Right: Hip KANDICE : ORTHOPAEDICS 11/07/2025 [id number] / / [id number] documented as of this encounter Advance Directives [...] the patient have Health Care Power of Freight Broker? Yes, not currently available Care Teams Utility System Repairer Relationship Specialty Start Date End Date Roseann Plummer MD [address] [place] [address] PCP - General Internal Medicine 11/05/22 documented as of this encounter
--- OUTSIDE RECORDS SUMMARY | 2023-08-23 09:12 | External Medical Summary | Summary of Care ---
Author Name Unknown Organization [facility] Address [address] [place] [address] Phone [phone] Care Team Providers Care Dental Ceramist Helper Name Role Phone Roseann Plummer MD Primary Care Provider Reason for Visit * Reason Onset Date Comments Medication Refill 04/08/2023 Encounter Details Date Type Department Care Team Description 04/08/2023 Refill [facility] [address] [facility] [address] [facility]ummer MD [address] [facility] [address] Tobacco use disorder Allergies Active Allergy Reactions [...] skin daily. 14 Patch 0 04/15/2023 Active Nicotine 21 MG/24HR Transdermal Patch 24 Hour (Nicotine Step 1)Indications:Tob acco use disorder Place 1 Patch topically on the skin daily. On upper body/upper arm, change once a day for 6 weeks. 42 Patch 0 12/05/2022 3 Discontinue d(Medicatio n List Clean Up) Nicotine 7 MG/24HR Transdermal Patch 24 Hour (Nicoderm CQ)Indications:To bacco use disorder Place 1 Patch topically on the skin daily. 28 Patch 3 03/19/2023 3 Discontinue d(Refill) Hospital, Clinic, or Other [...] encounter Miscellaneous Notes * Telephone Encounter - Raman Camejo [facility] - 04/15/2023 9:34 AM EDT MyG read, but no response as of yet. Unable to reach patient at this time. Left message on the answering machine requesting callback regarding which strength nicotine patches she currently needs and to f/u on current status of cessationin general. Advised patient to please call [phone]. Please transfer her back to myself. If I'mnot available, transfer to next available [facility]. To avoid pt going without NRT 1 refill authorized for now of the 7 mg patches given her most recentfill hx. Thanks, Raman Camejo Pharm.D. Clinical Pharmacist [facility] ([facility]) [phone] 04/15/2023, 9:35 AM * Telephone Encounter - Raman Camejo [facility] - 04/11/2023 8:48 AM EDT Incoming request for both 14 and 7 mg patches (separate encounter from 14 mg patches). Per adherence review it looks as though the pt has been on the 7 mg patches for several months now. MyG msg sentto pt to confirm which patch is current, as well as to gauge current cessation status to determine if dosing and continued use is still necessary. Postponed until response comes back from pt. Thanks, Raman Camejo Pharm.D. Clinical Pharmacist [facility] ([facility]) [phone] 04/11/2023, 8:53 AM documented in this encounter Plan of Treatment Upcoming Encounters Date Type Specialty Care Team Description 04/23/2023 Office Visit Podiatry Maria C Middleton DPM [address] [place] [address] 04/23/2023 Imaging Radiology 06/11/2023 Imaging Radiology 06/17/2023 Office Visit Dermatology Tristin Alexander MD [address] [place] [address] 06/27/2023 Procedure Only Endoscopy Tobin Silva MD [address] [place] [address] 07/03/2023 Office Visit Pulmonary Huan Branham MD [address] [facility] [place] [address] Health Maintenance Due Date Last Done [...] this encounter Medical Devices Implanted Type Area Hot Metal Crane Operator Device Identifier Shelf Expiration Date Model / Serial / Lot Accolade Ii 127 Deg 4 - [id number] Implanted:Qty: 1 on 12/05/2020 by Rodolfo Park, DO at OR [facility] Right: Hip KANDICE : ORTHOPAEDICS 11/07/2025 [id number] / / [id number] documented as of this encounter Visit Diagnoses [...] the patient have Health Care Power of Weapons Specialist? Yes, not currently available Care Teams Dental Ceramist Helper Relationship Specialty Start Date End Date Roseann Plummer MD [address] [place] [address] PCP - General Internal Medicine 11/05/22 documented as of this encounter
--- OUTSIDE RECORDS SUMMARY | 2023-08-23 09:12 | External Medical Summary | Summary of Care ---
Author Name Unknown Organization [facility] Address [address] [place] [address] Phone [phone] Care Team Providers Care Plastics Engineer Name Role Phone Roseann Plummer MD Primary [...] DPM [address] [place] [address] 04/23/2023 Imaging Radiology 06/11/2023 Imaging Radiology 06/17/2023 Office Visit Dermatology Tristin Alexander MD [address] [place] [address] 06/27/2023 Procedure Only Endoscopy Tobin Silva MD [address] [place] [address] 07/03/2023 Office Visit Pulmonary Huan Branham MD [address] [place] [facility] [place] [address] Health Maintenance Due Date Last Done Comments [...] this encounter Medical Devices Implanted Type Area Flight Operations Coordinator Device Identifier Shelf Expiration Date Model / Serial / Lot Accolade Ii 127 Deg 4 - [id number] Implanted:Qty: 1 on 12/05/2020 by Rodolfo Park, DO at OR [facility] Right: Hip KANDICE : ORTHOPAEDICS 11/07/2025 [id number] / / [id number] documented as of this encounter Advance Directives [...] patient have Health Care Power of Insurance Sales Manager? Yes, not currently available Care Teams Plastics Engineer Relationship Specialty Start Date End Date Roseann Plummer MD [address] [place] [address] PCP - General Internal Medicine 11/05/22 documented as of this encounter
--- OUTSIDE RECORDS SUMMARY | 2023-08-23 09:12 | External Medical Summary | Summary of Care ---
Author Name Unknown Organization [facility] Address [address] [place] [address] Phone [phone] Care Team Providers Care Tutoring Clinician Name Role Phone Roseann Plummer MD Primary Care Provider Reason for Visit * Reason Onset Date Comments case management 04/08/2023 Encounter Details Date Type Department Care Team Description 04/08/2023 Student Assistant Telephone Care Coordination [address] [place] [address] Urvashi Tuttle LSW [address] [place], [place] [id number] case management Allergies Active Allergy Reactions Severity Noted Date Comments Buspirone Rash 11/01/2022 documented as of this encounter (statuses as of 04/08/2023) Medications Medication Sig Dispensed Refills Start Date [...] alcohol. 2 Tablet 0 12/04/2022 Active Nicotine 21 MG/24HR Transdermal Patch 24 Hour (Nicotine Step 1)Indications:Toba payroll accounting specialist use disorder Place 1 Patch topically on the skin daily. On upper body/upper arm, change once a day for 6 weeks. 42 Patch 0 12/05/2022 Active Nicotine 14 MG/24HR Transdermal Patch 24 [...] the skin daily. 28 Patch 3 03/19/2023 Active Clobetasol Propionate 0.05 % External Cream (Temovate)Indicati ons:Psoriasis vulgaris Apply to rash on buttocks and thighs twice daily for 2 weeks 60 g 5 03/18/2023 Active Hospital, Clinic, or Other Facility Administered Medication Ordered Dose Route Frequency Start Date End Date Status Albuterol Sulfate (Proventil) (2.5 MG/3ML) 0.083% inhalation solution 2.5 mgIndications:COPD, mild (HCC) 2.5 mg NEBULIZER PRN 10/11/2022 Active documented as of this encounter (statuses as of 04/08/2023) Active Problems Problem Noted Date Dependence on [...] as of this encounter (statuses as of 04/08/2023) Resolved Problems Problem Noted Date Resolved Date Chronic kidney disease, stage 3a 10/08/2022 03/01/2023 Overview: Per CKD protocol Substance abuse 05/25/2022 03/01/2023 Food insecurity 03/06/2021 01/11/2022 Overview: Per [facility] Protocol documented as of this encounter (statuses as of 04/08/2023) Immunizations Name Administration Dates Next Due Pneumococcal [...] * Telephone Encounter - ASTRID Perez - 04/08/2023 1:13 PM EDT Images from the original note were not included. [facility] received VM from pt asking her pulmonary appointment. [facility] attempted to call back. No answer; [facility] left VM with pulmonary appointment details Follow-up Routine Attempted Phone Call Fourth attempt Call Outcome Left Voicemail/Message Plan Pt to call [facility] back with any further questions Urvashi Tuttle SEMICONDUCTOR PACKAGES LEAK TESTER, SOCIAL ORGANIZATION PROFESSOR Behavioral Health Student Assistant (Pronouns: she, her, hers) Care Coordination Integration director of operations home health documented in this encounter Plan of Treatment Upcoming Encounters Date Type Specialty Care Team Description 04/09/2023 Imaging Radiology 06/11/2023 Imaging Radiology 06/17/2023 Office Visit Dermatology Tristin Alexander MD [address] [place] [facility] [place] [address] 06/27/2023 Procedure Only Endoscopy Tobin Silva MD [address] [place] [address] 07/03/2023 Office Visit Pulmonary Huan Branham MD [address] [place] [phone] Health Maintenance Due Date Last Done Comments DISCUSS TOBACCO CESSATION (REFER TO SMARTSET #4209) 1965 Hepatitis B (1 of 3 - [...] this encounter Medical Devices Implanted Type Area Director Of Food And Nutrition Device Identifier Shelf Expiration Date Model / Serial / Lot Accolade Ii 127 Deg Sz 4 - [id number] Implanted:Qty: 1 on 12/05/2020 by Rodolfo Park, at OR [facility] Right: Hip KANDICE : ORTHOPAEDICS 11/07/2025 [id number] / / [id number] documented as of this encounter Advance Directives [...] the patient have Health Care Power of Director Of Financial Planning? Yes, not currently available Care Teams Tutoring Clinician Relationship Specialty Start Date End Date Roseann Plummer MD [address] [place] [address] PCP - General Internal Medicine 11/05/22 documented as of this encounter
--- OUTSIDE RECORDS SUMMARY | 2023-08-23 09:12 | External Medical Summary | Summary of Care ---
Author Name Unknown Organization [facility] Address [address] [place] [address] Phone [phone] Care Team Providers Care Water Registrar Name Role Phone Roseann Plummer MD Primary Care Provider Reason for Visit * Reason Onset Date Comments Follow Up 04/15/2023 Encounter Details Date Type Department Care Team Description 04/15/2023 Telephone Pulmonary Medicine, [place] [address] [place] [address] Caitlin Vasques, [address] [place] [address] Follow Up Allergies Active Allergy Reactions Severity [...] encounter Miscellaneous Notes * Telephone Encounter - Larissa Adames RN - 04/15/2023 12:36 PM EDT My G Message sent to Bhumika requesting her to contact the Pulmonary clinic for follow up regardingrespiratory status. documented in this encounter Plan of Treatment Upcoming Encounters Date Type Specialty Care Team Description 04/23/2023 Office Visit Podiatry Maria C Middleton DPM [address] [place] [address] 04/23/2023 Imaging Radiology 06/11/2023 Imaging Radiology 06/17/2023 Office Visit Dermatology Tristin Alexander MD [address] [place] [facility] [place] [address] 06/27/2023 Procedure Only Endoscopy Tobin Silva MD [address] [place] [address] 07/03/2023 Office Visit Pulmonary Huan Branham MD [address] [place] [address] Health Maintenance Due Date Last Done Comments DISCUSS TOBACCO CESSATION (REFER TO SMARTSET #3297) 1965 Hepatitis B (1 of 3 - [...] this encounter Medical Devices Implanted Type Area Automotive Technician Device Identifier Shelf Expiration Date Model / Serial / Lot Accolade Ii 127 Deg Sz 4 - [id number] Implanted:Qty: 1 on 12/05/2020 by Rodolfo Park, at OR [facility] Right: Hip KANDICE : ORTHOPAEDICS 11/07/2025 [id number] / / [id number] documented as of this encounter Advance Directives [...] the patient have Health Care Power of Ladle Cleaner? Yes, not currently available Care Teams Water Registrar Relationship Specialty Start Date End Date Roseann Plummer MD [address] [place] [address] PCP - General Internal Medicine 11/05/22 documented as of this encounter
--- OUTSIDE RECORDS SUMMARY | 2023-08-23 09:12 | External Medical Summary | Summary of Care ---
Author Name Unknown Organization [facility] Address [address] [place] [address] Phone [phone] Care Team Providers Care Parcel Post Carrier Name Role Phone Moi Plummer MD Primary Care Provider Reason for Visit * Reason Onset Date Comments Medication Refill 03/18/2023 Encounter Details Date Type Department Care Team Description 03/18/2023 Refill Family Practice [facility] [address] [facility] [place] [address] Moi Plummer MD [address] [facility] [place] [place] [address] Tobacco use disorder; Rash and nonspecific skin eruption Allergies Active Allergy Reactions Severity Noted Date Comments Buspirone Rash 11/01/2022 documented as of this encounter (statuses as of 03/19/2023) Medications Medication Sig Dispensed Refills Start Date [...] Additional Information Patient taking differently: 12.5 mg BID(AM/PM), take 1 tablet by mouth twice a [...] on the skin daily. 28 Patch 3 12/05/2022 3 Discontinue d(Refill) Hospital, Clinic, or Other Facility Administered Medication Ordered Dose Route Frequency Start Date End Date Status Albuterol Sulfate (Proventil) (2.5 MG/3ML) 0.083% inhalation solution 2.5 mgIndications:COPD, mild (HCC) 2.5 mg NEBULIZER PRN 10/11/2022 Active documented as of this encounter (statuses as of 03/19/2023) Active Problems Problem Noted Date Dependence on [...] as of this encounter (statuses as of 03/19/2023) Resolved Problems Problem Noted Date Resolved Date Chronic kidney disease, stage 3a 10/08/2022 03/01/2023 Overview: Per CKD protocol Substance abuse 05/25/2022 03/01/2023 Food insecurity 03/06/2021 01/11/2022 Overview: Per [facility] Protocol documented as of this encounter (statuses as of 03/19/2023) Immunizations Name Administration Dates Next Due Pneumococcal [...] encounter Miscellaneous Notes * Telephone Encounter - Randi Tori [facility] - 03/19/2023 8:37 AM EDTSigned Prescriptions: Disp Refills Nicotine 7 MG/24HR Transdermal Patch 24 Ho*28 Pat*3 Sig: Place 1Patch topically on the skin daily.Authorizing Provider: MOI PLUMMER User: JS DOMINGUEZefused Prescriptions: Disp Refills Potassium Chloride Mayda ER 10 MEQ Oral Tab*30 Tab*5 Sig: Take 1 Tablet by mouth in the morning.Refused By: JS DOMINGUEZeason for Refusal: Too soon Furosemide 40 MG Oral Tablet (Lasix) 30 Tab*5 Sig: Take 1 Tablet by mouth in the morning.Refused By: JS DOMINGUEZeason for Refusal: Too soon Apixaban 5 MG Oral Tablet (Eliquis) 60 Tab*5 Sig: Take 1 Tablet by mouth in the morning and 1 Tablet before bedtime.Refused By: HAL DOMINGUEZHAReason for Refusal: Too soon Ferrous Gluconate 324 (38 Fe) MG Oral Tabl*30 Tab*5 Sig: Take 1 Tablet by scar jaramillo with breakfast.Refused By: HAL DOMINGUEZHAReason for Refusal: Too soon Pantoprazole Sodium 40 MGOral Tablet Gaby*30 Tab*5 Sig: Take 1 Tablet by mouth in the morning.Refused By: JS DOMINGUEZeasonfor Refusal: Too soon Tolnaftate 1 % External Cream 113 g 1 Sig: Apply topically to affected area 2times a day. Apply to thighs and lower back/gluteal cleft.Refused By: Gustabo DOMINGUEZ for Refusal: Too soon documented in this encounter Plan of Treatment Upcoming Encounters Date Type Specialty Care Team Description 04/09/2023 Imaging Radiology 06/11/2023 Imaging Radiology 06/17/2023 Office Visit Dermatology Tristin Alexander MD [address] [facility], [place] [phone] 06/27/2023 Procedure Only Endoscopy Tobin Silva MD [address] [place] [address] 07/03/2023 Office Visit Pulmonary Huan Branham MD [address] [place] [address] Health Maintenance Due Date Last Done Comments DISCUSS TOBACCO CESSATION (REFER TO SMARTSET #1307) 1965 Hepatitis B (1 of 3 - [...] (FLU shot) (#1) 2023 04/28/2020, 04/28/2020 Depression Screening, Annual for Pts 12 and Over 05/25/2023 05/25/2022 GFR 11/15/2023 11/14/2022, 09/26, 09/28/2022, [...] this encounter Medical Devices Implanted Type Area Flash Drier Operator Device Identifier Shelf Expiration Date Model / Serial / Lot Accolade Ii 127 Deg Sz 4 - [id number] Implanted:Qty: 1 on 12/05/2020 by Rodolfo Park, at OR [facility] Right: Hip KANDICE : ORTHOPAEDICS 11/07/2025 [id number] / / [id number] documented as of this encounter Visit Diagnoses Diagnosis Tobacco use disorder Rash and nonspecific skin eruption Rash and [...] the patient have Health Care Power of Fluorescent Solution Mixer? Yes, not currently available Care Teams Parcel Post Carrier Relationship Specialty Start Date End Date Moi Plummer MD [address] [place] [address] PCP - General Internal Medicine 11/05/22 documented as of this encounter
--- OUTSIDE RECORDS SUMMARY | 2023-08-23 09:12 | External Medical Summary | Summary of Care ---
Author Name Unknown Organization [facility] Address [address] [place] [address] Phone [phone] Care Team Providers Care Loader Helper Sorting Yard Name Role Phone Roseann Plummer MD Primary [...] DPM [address] [place] [address] 04/23/2023 Imaging Radiology 06/11/2023 Imaging Radiology 06/17/2023 Office Visit Dermatology Tristin Alexander MD [address] [place] [address] 06/27/2023 Procedure Only Endoscopy Tobin Silva MD [address] [place] [address] 07/03/2023 Office Visit Pulmonary Huan Branham MD [address] [place] [facility] [place] [address] Health Maintenance Due Date Last Done Comments [...] this encounter Medical Devices Implanted Type Area Engineering Team Supervisor Device Identifier Shelf Expiration Date Model / Serial / Lot Accolade Ii 127 Deg 4 - [id number] Implanted:Qty: 1 on 12/05/2020 by Rodolfo Park, DO at OR [facility] Right: Hip KANDICE : ORTHOPAEDICS 11/07/2025 [id number] / / [id number] documented as of this encounter Advance Directives [...] the patient have Health Care Power of Barrel Lathe Operator Outside? Yes, not currently available Care Teams Loader Helper Sorting Yard Relationship Specialty Start Date End Date Roseann Plummer MD [address] [place] [address] PCP - General Internal Medicine 11/05/22 documented as of this encounter
--- OUTSIDE RECORDS SUMMARY | 2023-08-23 09:12 | External Medical Summary | Summary of Care ---
Author Name Unknown Organization [facility] Address [address] [place] [address] Phone [phone] Care Team Providers Care Instrumentation Specialist Name Role Phone Roseann Plummer MD Primary Care Provider Reason for Visit * Reason Onset Date Comments Medication Refill 03/21/2023 Encounter Details Date Type Department Care Team Description 03/21/2023 Refill [facility] [address] [facility] [address] Roseann Plum[facility] MD [address] [facility] [place] [address] Allergies Active Allergy Reactions Severity Noted Date Comments Buspirone Rash 11/01/2022 documented as of this encounter (statuses as of 03/24/2023) Medications Medication Sig Dispensed Refills Start Date [...] Transdermal Patch 24 Hour (Nicotine Step 1)Indications:Toba accounting auditor use disorder Place 1 Patch topically on [...] as of this encounter (statuses as of 03/24/2023) Active Problems Problem Noted Date Dependence on [...] as of this encounter (statuses as of 03/24/2023) Resolved Problems Problem Noted Date Resolved Date Chronic kidney disease, stage 3a 10/08/2022 03/01/2023 Overview: Per CKD protocol Substance abuse 05/25/2022 03/01/2023 Food insecurity 03/06/2021 01/11/2022 Overview: Per [facility] Protocol documented as of this encounter (statuses as of 03/24/2023) Immunizations Name Administration Dates Next Due Pneumococcal [...] Notes * Telephone Encounter - Alejandra Garibay [facility] - 03/24/2023 7:34 AM EDTRefused Prescriptions: Disp Refills Ferrous Gluconate 324 (38 Fe) MG Oral Tabl*30 Tab*5 Sig: Take 1Tablet by mouth daily with breakfast.Refused By: ALEJANDRA GARIBAY LReason for Refusal: Too soon-------- documented in this encounter Plan of Treatment Upcoming Encounters Date Type Specialty Care Team Description 04/09/2023 Imaging Radiology 06/11/2023 Imaging Radiology 06/17/2023 Office Visit Dermatology Tristin Alexander MD [address] [facility], [place] [address] 06/27/2023 Procedure Only Endoscopy Tobin Silva MD [address] [place] [address] 07/03/2023 Office Visit Pulmonary Huan Branham MD [address] [place] [address] Health Maintenance Due Date Last Done Comments DISCUSS TOBACCO CESSATION (REFER TO SMARTSET #9991) 1965 Hepatitis B (1 of 3 - [...] this encounter Medical Devices Implanted Type Area Stage Builder Device Identifier Shelf Expiration Date Model / Serial / Lot Accolade Ii 127 Deg Sz 4 - [id number] Implanted:Qty: 1 on 12/05/2020 by Rodolfo Park, at OR [facility] Right: Hip KANDICE : ORTHOPAEDICS 11/07/2025 [id number] / / [id number] documented as of this encounter Advance Directives [...] the patient have Health Care Power of Machine Packer? Yes, not currently available Care Teams Instrumentation Specialist Relationship Specialty Start Date End Date Roseann Plummer MD [address] [place] [address] PCP - General Internal Medicine 11/05/22 documented as of this encounter
--- OUTSIDE RECORDS SUMMARY | 2023-08-23 09:12 | External Medical Summary | Summary of Care ---
Author Name Unknown Organization [facility] Address [address] [place] [address] Phone [phone] Care Team Providers Care Arts And Sciences Dean Name Role Phone Roseann Plummer MD Primary Care Provider Reason for Visit * Reason Onset Date Comments Medication Refill 04/11/2023 Encounter Details Date Type Department Care Team Description 04/11/2023 Refill Family Practice [facility] [address] [facility] [address] Roseann Plummer MD [address] [place] [address] Tobacco use disorder Allergies Active Allergy Reactions Severity Noted Date Comments Buspirone Rash 11/01/2022 documented as of this encounter (statuses as of 04/11/2023) Medications Medication Sig Dispensed Refills Start Date [...] Transdermal Patch 24 Hour (Nicotine Step 1)Indications:Toba sec accountant use disorder Place 1 Patch topically on [...] as of this encounter (statuses as of 04/11/2023) Active Problems Problem Noted Date Dependence on [...] as of this encounter (statuses as of 04/11/2023) Resolved Problems Problem Noted Date Resolved Date Chronic kidney disease, stage 3a 10/08/2022 03/01/2023 Overview: Per CKD protocol Substance abuse 05/25/2022 03/01/2023 Food insecurity 03/06/2021 01/11/2022 Overview: Per [facility] Protocol documented as of this encounter (statuses as of 04/11/2023) Immunizations Name Administration Dates Next Due Pneumococcal [...] Date Type Specialty Care Team Description 04/23/2023 Imaging Radiology 06/11/2023 Imaging Radiology 06/17/2023 Office Visit Dermatology Tristin Alexander MD [address] [place] [facility] [place] [address] 06/27/2023 Procedure Only Endoscopy Tobin Silva MD [address] [place] [address] 07/03/2023 Office Visit Pulmonary Huan Branham MD [address] [place] [address] Health Maintenance Due Date Last Done Comments DISCUSS TOBACCO CESSATION (REFER TO SMARTSET #4973) 1965 Hepatitis B (1 of 3 - [...] this encounter Medical Devices Implanted Type Area Account Receivable Associate Device Identifier Shelf Expiration Date Model / Serial / Lot Accolade Ii 127 Deg Sz 4 - [id number] Implanted:Qty: 1 on 12/05/2020 by Rodolfo Park, at OR [facility] Right: Hip KANDICE : ORTHOPAEDICS 11/07/2025 [id number] / / [id number] documented as of this encounter Visit Diagnoses [...] the patient have Health Care Power of Ap Processor? Yes, not currently available Care Teams Arts And Sciences Dean Relationship Specialty Start Date End Date Roseann Plummer MD [address] [place] [address] PCP - General Internal Medicine 11/05/22 documented as of this encounter
--- OUTSIDE RECORDS SUMMARY | 2023-08-23 09:13 | External Medical Summary | Summary of Care ---
Author Name Unknown Organization [facility] Address [address] [place] [address] Phone [phone] Care Team Providers Care Landing Gear Mechanic Name Role Phone Roseann Plummer MD Primary Care Provider Reason for Visit * Reason Onset Date Comments Medication Pre-auth 03/06/2023 Encounter Details Date Type Department Care Team Description 03/06/2023 Telephone Family Practice [facility] [address] [id number] [address] [facility] [address] Medication Pre-auth Allergies Active Allergy Reactions Severity Noted Date Comments Buspirone Rash 11/01/2022 documented as of this encounter (statuses as of 03/07/2023) Medications Medication Sig Dispensed Refills Start Date [...] mouth twice a day, Reported on 09/28/2022 Bisacodyl 5 MG Oral Tablet Delayed Release (Dulcolax) Take 1 Tablet by mouth daily as needed for Constipation. 0 Active Umeclidinium-Lauren nterol 62.5-25 MCG/ACT Inhalation [...] skin daily. 28 Patch 0 12/05/2022 Active Nicotine 7 MG/24HR Transdermal Patch 24 Hour (Nicoderm CQ)Indications:To bacco use disorder Place 1 Patch topically on the skin daily. 28 Patch 3 12/05/2022 Active DULoxetine HCl 30 MG Oral [...] the morning. 30 Tablet 5 01/20/2023 Active Clotrimazole 10 MG Mouth/Throat Bernardino (Mycelex Bernardino)Indication s:Thrush Take 1 Lozenge by mouth 5 times a day for 14 days. Allow tablet to slowly dissolve in your mouth 70 Bernardino 0 03/01/2023 03/15/2023 Active Naftifine HCl 2 % External CreamIndications: Rash and nonspecific skin eruption Apply topically to affected area daily. Apply to rash on thighs, buttocks, hands. 45 g 1 03/01/2023 Active Tolnaftate 1 % External CreamIndications: Rash and nonspecific skin eruption Apply topically to affected area 2 times a day. Apply to thighs and lower back/gluteal cleft. 113 g 1 03/07/2023 Active Hospital, Clinic, or Other Facility Administered Medication Ordered Dose Route Frequency Start Date End Date Status Albuterol Sulfate (Proventil) (2.5 MG/3ML) 0.083% inhalation solution 2.5 mgIndications:COPD, mild (HCC) 2.5 mg NEBULIZER PRN 10/11/2022 Active documented as of this encounter (statuses as of 03/07/2023) Active Problems Problem Noted Date Dependence on [...] as of this encounter (statuses as of 03/07/2023) Resolved Problems Problem Noted Date Resolved Date Chronic kidney disease, stage 3a 10/08/2022 03/01/2023 Overview: Per CKD protocol Substance abuse 05/25/2022 03/01/2023 Food insecurity 03/06/2021 01/11/2022 Overview: Per [facility] Protocol documented as of this encounter (statuses as of 03/07/2023) Immunizations Name Administration Dates Next Due Pneumococcal Polysaccharide PPV23 (Pneumovax) Seasonal Influenza Virus Vac cine, Unspecified Formulation 04/28/2020 Seasonal Influenza, Quadriva lent, No Preserve, 6 Mons & Above, IM 04/28/2020 TDAP (age 10 and older)(Boostrix) 04/28/2020 [...] Telephone Encounter - Roseann Plummer MD - 03/07/2023 8:14 AM EDT Fine to try one of those options. Rx for tolnaftate cream sent. * Telephone Encounter - Demetria Robertson CPhT - 03/06/2023 11:53 AM EDT Patients insurance would like to inform the office that PA for Naftifine Cream is denied because pthas not tried 3 other formulary alternatives: Alevazol (clotrimazole) Ointment (OTC), Butenafine Cream, Ciclopirox Cream, Ciclopirox 8% Solution, Clotrimazole Cream (OTC or RX), Clotrimazole-Betamethasone Cream, Econazole Cream, Ketoconazole Cream, Ketoconazole Shampoo, Miconazole Aerosol Powder, Miconazole Cream, Miconazole Powder, Nyamyc Powder, Nystatin Cream, Nystatin Ointment, Nystatin Powder, Nystatin-Triamcinolone Cream, Nystatin- Triamcinolone Ointment, Nystop Powder, Remedy Phytoplex Antifungal External Ointment 2 %, Terbinafine Cream, TM-Tolnaftate External Solution 1 %, Tolnaftate Aerosol Powder, Tolnaftate Cream, Tolnaftate Powder, Tolnaftate [place], Triple Paste AF External Ointment 2 %. They will fax this info to the office, please review and resubmit if appropriate. Thank you, Demetria Robertson, Tech 1 Clinical Research Technician [facility] ([facility]) (formerly Telepharmacy) 03/06/2023, 11:53 AM * Telephone Encounter - TOÑO Bello - 03/06/2023 8:38 AM EDT Prior auth for Naftifine cream submitted on Pooja GARCIA. Prior Auth (EOC) ID: [id number]. Will await response. documented in this encounter Plan of Treatment Upcoming Encounters Date Type Specialty Care Team Description 04/09/2023 Imaging Radiology 06/11/2023 Imaging Radiology 06/27/2023 Procedure Only Endoscopy Tobin Silva MD [address] [place] [address] 08/29/2023 Office Visit Dermatology Tristin Alexander MD [address] [place] [address] Health Maintenance Due Date Last Done Comments DISCUSS TOBACCO CESSATION (REFER TO SMARTSET #3174) 1965 Hepatitis B (1 of 3 - [...] this encounter Medical Devices Implanted Type Area Supervisor Acoustical Tile Carpenters Device Identifier Shelf Expiration Date Model / Serial / Lot Accolade Ii 127 Deg Sz 4 - [id number] Implanted:Qty: 1 on 12/05/2020 by Rodolfo Park, at OR [facility] Right: Hip KANDICE : ORTHOPAEDICS 11/07/2025 [id number] / / [id number] documented as of this encounter Visit Diagnoses Diagnosis Rash and nonspecific skin eruption- Primary Rash and other nonspecific skin eruption documented [...] the patient have Health Care Power of Automotive Parts Manager? Yes, not currently available Care Teams Landing Gear Mechanic Relationship Specialty Start Date End Date Roseann Plummer MD [address] [place] [address] PCP - General Internal Medicine 11/05/22 documented as of this encounter
--- OUTSIDE RECORDS SUMMARY | 2023-08-23 09:13 | External Medical Summary | Summary of Care ---
Author Name Unknown Organization [facility] Address [address] [place] [address] Phone [phone] Care Team Providers Care Pit Shoveler Name Role Phone Roseann Plummer MD Primary Care Provider Reason for Visit * Reason Onset Date Comments Medication Refill 03/08/2023 Encounter Details Date Type Department Care Team Description 03/08/2023 Refill Family Practice [facility] [address] [facility] [place] [address] Roseann Plummer MD [address] [place] [address] Tobacco use disorder Allergies Active Allergy Reactions Severity Noted Date Comments Buspirone Rash 11/01/2022 documented as of this encounter (statuses as of 03/08/2023) Medications Medication Sig Dispensed Refills Start Date [...] as of this encounter (statuses as of 03/08/2023) Active Problems Problem Noted Date Dependence on [...] as of this encounter (statuses as of 03/08/2023) Resolved Problems Problem Noted Date Resolved Date Chronic kidney disease, stage 3a 10/08/2022 03/01/2023 Overview: Per CKD protocol Substance abuse 05/25/2022 03/01/2023 Food insecurity 03/06/2021 01/11/2022 Overview: Per [facility] Protocol documented as of this encounter (statuses as of 03/08/2023) Immunizations Name Administration Dates Next Due Pneumococcal [...] Endoscopy Tobin Silva MD [address] [place] [address] 08/29/2023 Office Visit Dermatology Tristin Alexander MD [address] [place] [address] Health Maintenance Due Date Last Done Comments [...] this encounter Medical Devices Implanted Type Area Leader Writer Device Identifier Shelf Expiration Date Model / Serial / Lot Accolade Ii 127 Deg Sz 4 - [id number] Implanted:Qty: 1 on 12/05/2020 by Rodolfo Park, at OR [facility] Right: Hip KANDICE : ORTHOPAEDICS 11/07/2025 [id number] / / [id number] documented as of this encounter Visit Diagnoses [...] the patient have Health Care Power of Site Manager? Yes, not currently available Care Teams Pit Shoveler Relationship Specialty Start Date End Date Roseann Plummer MD [address] [place] [address] PCP - General Internal Medicine 4/10/23 documented as of this encounter
--- OUTSIDE RECORDS SUMMARY | 2023-08-23 09:13 | External Medical Summary | Summary of Care ---
Author Name Unknown Organization [facility] Address [address] [place] [address] Phone [phone] Care Team Providers Care Neurodiagnostic Tech Name Role Phone Roseann Plummer MD Primary Care Provider Reason for Visit * Reason Comments Follow Up Rash x 1-2 months on lower arms, backs of hands, lower back and buttocks and starting towards genitalia that perry. She states she has a fungal infection on her toe nails and suspects it is a fungal rash. Would like an Inogen oxygen machine sent to [facility] Encounter Details Date Type Department Care Team Description 03/01/2023 [address] [facility] [address] [facility] [place] [address] Roseann Plummer MD [address] [facility] [place] [address] Rash and nonspecific skin eruption*; Thrush; Dependence on supplemental oxygen; Recurrent major depressive disorder, remission status unspecified (HCC); Lumbar degenerative disc disease; Encounter for screening mammogram for breast cancer Allergies Active Allergy Reactions Severity Noted Date Comments Buspirone Rash 11/01/2022 documented as of this encounter (statuses as of 03/01/2023) Medications Medication Sig Dispensed Refills Start Date [...] in your mouth 70 Bernardino 0 03/01/2023 3 Active Naftifine HCl 2 % External CreamIndications: Rash and nonspecific skin eruption Apply topically to affected area daily. Apply to rash on thighs, buttocks, hands. 45 g 1 03/01/2023 Active Cyanocobalamin 100 MCG Oral Tablet (RA Vitamin B-12) Take 1 Tablet by mouth in the morning. In the morning.. 30 Tablet 5 01/18/2023 3 Discontinue d(Medicatio n List Clean Up) Hospital, Clinic, or Other Facility Administered Medication Ordered Dose Route Frequency Start Date End Date Status Albuterol Sulfate (Proventil) (2.5 MG/3ML) 0.083% inhalation solution 2.5 mgIndications:COPD, mild (HCC) 2.5 mg NEBULIZER PRN 10/11/2022 Active documented as of this encounter (statuses as of 03/01/2023) Active Problems Problem Noted Date Dependence on supplemental oxygen 2022 Pulmonary emboli 02/09/2023 KARLA (acute kidney injury) 05/25/2022 Anemia 05/25/2022 Thrombocytopenia 05/25/2022 Nodule of right lung 05/25/2022 Medical home patient encounter 2 Food insecurity 05/07/2022 Overview: Per [facility] Protocol COPD, group C, by GOLD 2017 classificati on 10/09/2021 Overview: Per COPD GOLD Classification Methadone maintenance therapy patient 02 / Recurrent major depressive disorder 08/30 Chronic obstructive [...] as of this encounter (statuses as of 03/01/2023) Resolved Problems Problem Noted Date Resolved Date Chronic kidney disease, stage 3a 10/08/2022 03/01/2023 Overview: Per CKD protocol Substance abuse 05/25/2022 03/01/2023 Food insecurity 03/06/2021 01/11/2022 Overview: Per [facility] Protocol documented as of this encounter (statuses as of 03/01/2023) Immunizations Name Administration Dates Next Due Pneumococcal [...] on file documented as of this encounter Last Filed Vital Signs Vital Sign Reading Time Taken Comments Blood Pressure 128/80 03/01/2023 9:26 AM EDT Pulse 79 03/01/2023 9:26 AM EDT Temperature 36.7 C (98.1 F) 03/01/2023 9:26 AM ED T Respiratory Rate 22 03/01/2023 9:26 AM EDT Oxygen Saturation 97% 03/01/2023 9:26 AM EDT on 2L oxygen Inhaled Oxygen Concentration - - Weight 99.3 kg (219 lb) 03/01/2023 9:26 AM EDT Height - - Body Mass Index 33.07 11/01/2022 1:24 PM EDT documented in this encounter Functional Status Functional Status Response [...] No 12/05/2020 documented as of this encounter Patient Instructions * Patient Instructions* Roseann Plummer MD - 03/01/2023 10:02 AM EDT Rash: -- we are going to [facility] for [facility] -- in the meantime, you can take Zyrtec/Claritin during day for itch, and benadryl at night. -- we may need to do a punch biopsy Constipation: -- dulcolax (bisacodyl) is a stimulant. If needing more than once/wk let me know -- Miralax and colace are not stimulants, fine to use chronically Thrush: -- clotrimazole troches. -- extra care with washing dentures and mouth -- restart inhaler after a week Make f/u appt with Pulmonary. We will send them note about annmarie oxygen. Call to reschedule sleep study. documented in this encounter Progress Notes * Roseann Plummer MD - 03/01/2023 9:43 AM EDT rash * Roseann Plummer MD - 03/01/2023 9:36 AM EDT Images from the original note were not included. History of Present Illness Bhumika Flores is a 57 year old female that presents for Follow Up (Rash x 1-2 months on lower arms, backs of hands, lower back and buttocks and starting towards genitalia that perry. She states she has a fungal infection on her toe nails and suspects it is a fungal rash. Would like an Inogen oxygen machine sent to [employer]) I saw her for rash in September, ?d/t buspar. That resolved. But now has rash for past 1-2 months. Extremely itchy. Not sure how quickly it evolved. Never had anything like this before. Starting to spread down gluteal cleft. Getting new lesions on back of hands in past few days. Pulm HTN, pulmonary emboli. Oxygen needs managed by Pulmonary. Needs f/u scheduled. In-lab sleep study due to oxygen dependence - cancelled due to illness, never rescheduled. Thinks has thrush from inhaler, so stopped inhaler. Has to wear dentures in sleep so oxygen cannulafits properly. Medical marijuana: edibles only. Nicotine: cigarettes down to 1-2/day. Alcohol: 1 mixed drink can/night. Smash. Methadone: 100mg currently medication and allergy list reviewed Past medical history and problem list reviewed Physical Exam Vitals: 03/01/23 0926 Temp: 36.7 C (98.1 F) Pulse: 79 Resp: 22 SpO2: 97% BP: 128/80 Physical Exam Vitals and nursing note reviewed. Constitutional: Appearance: Normal appearance. She is not ill-appearing. HENT: Mouth/Throat: Comments: General erythema with scattered petechiae on soft palate Skin: Comments: See photographs Neurological: Mental Status: She is alert. I have reviewed the following results: CMP, Hemoglobin A1C, TSH and CBC Assessment and Plan Rash and nonspecific skin eruption If not improving will send Derm ask a doc - Naftifine HCl 2 % External Cream; Apply topically to affected area daily. Apply to rash on thighs, buttocks, hands. Thrush - Clotrimazole 10 MG Mouth/Throat Bernardino (Mycelex Bernardino); Take 1 Lozenge by mouth 5 times a day for 14 days. Allow tablet to slowly dissolve in your mouth Dependence on supplemental oxygen Will send note to pulmonary about oxygen request Recurrent major depressive disorder, remission status unspecified (HCC) Continue Cymbalta Lumbar degenerative disc disease Encounter for screening mammogram for breast cancer - MAMMOGRAM SCREENING FRANCIS BILATERAL; Future Encouraged scheduling overnight sleep study. Wrap-Up Time: I spent a total of 40-54 minutes (exact time 44 mins) on the date of service in preparation, delivery, and documentation of the care provided to Bhumika Flores excluding any time spent in the performance of separately billed services. documented in this encounter Plan of Treatment Upcoming Encounters Date Type Specialty Care Team Description 04/09/2023 Imaging Radiology 06/11/2023 Imaging Radiology 06/27/2023 Procedure Only Endoscopy Tobin Silva MD [address] [place] [address] 08/29/2023 Office Visit [facility]at[facility] [address] [facility] [address] Scheduled Orders Name Type Priority Associated Diagnoses Orde r Schedule MAMMOGRAM SCREENING FRANCIS BILATERAL Medical Imaging Routine Encounter for screening mammogram for breast cancer Expected: 04/01/2023 (Approximate), Expires: 04/01/2024 Health Maintenance Due Date Last Done Comments [...] this encounter Medical Devices Implanted Type Area Audio Engineer Device Identifier Shelf Expiration Date Model / Serial / Lot Accolade Ii 127 Deg 4 - [id number] Implanted:Qty: 1 on 12/05/2020 by Rodolfo Park DO at OR [facility] Right: Hip KANDICE : ORTHOPAEDICS 11/07/2025 [id number] / / [id number] documented as of this encounter Visit Diagnoses Diagnosis Rash and nonspecific skin eruption- Primary Rash and other nonspecific skin eruption Thrush Candidiasis of mouth Dependence on supplemental oxygen Recurrent major depressive disorder, remission status unspecified (HCC) Lumbar degenerative disc disease Degeneration of lumbar or lumbosacral intervertebral disc Encounter for screening mammogram for breast cancer documented in this encounter Advance Directives Latest [...] the patient have Health Care Power of Binder Coverstitch? Yes, not currently available Care Teams Neurodiagnostic Tech Relationship Specialty Start Date End Date Roseann Plummer MD [address] [place] [address] PCP - General Internal Medicine 11/05/22 documented as of this encounter
--- OUTSIDE RECORDS SUMMARY | 2023-08-23 09:13 | External Medical Summary | Summary of Care ---
Author Name Unknown Organization [facility] Address [address] [place] [address] Phone [phone] Care Team Providers Care Housekeeper/Laundry Assistant Name Role Phone Roseann Plummer MD Primary Care Provider Reason for Visit * Reason Onset Date Comments Medication Refill 03/12/2023 Encounter Details Date Type Department Care Team Description 03/12/2023 Refill Family Practice [facility] [address] [facility] [place] [address] Roseann Plummer MD [address] [facility] [place] [place] [address] Tobacco use disorder Allergies Active Allergy Reactions Severity Noted Date Comments Buspirone Rash 11/01/2022 documented as of this encounter (statuses as of 03/12/2023) Medications Medication Sig Dispensed Refills Start Date [...] in the morning. 30 Tablet 01/20/2023 Active Clotrimazole 10 MG Mouth/Throat Bernardino [...] for Constipation. 30 Tablet 0 03/08/2023 Active Hospital, Clinic, or Other Facility Administered Medication Ordered Dose Route Frequency Start Date End Date Status Albuterol Sulfate (Proventil) (2.5 MG/3ML) 0.083% inhalation solution 2.5 mgIndications:COPD, mild (HCC) 2.5 mg NEBULIZER PRN 10/11/2022 Active documented as of this encounter (statuses as of 03/12/2023) Active Problems Problem Noted Date Dependence on [...] as of this encounter (statuses as of 03/12/2023) Resolved Problems Problem Noted Date Resolved Date Chronic kidney disease, stage 3a 10/08/2022 03/01/2023 Overview: Per CKD protocol Substance abuse 05/25/2022 03/01/2023 Food insecurity 03/06/2021 01/11/2022 Overview: Per [facility] Protocol documented as of this encounter (statuses as of 03/12/2023) Immunizations Name Administration Dates Next Due Pneumococcal [...] Notes * Telephone Encounter - Mandy Minor RPh - 03/12/2023 11:24 AM EDTRefused Prescriptions: Disp Refills Nicotine 7 MG/24HR Transdermal Patch 24 Ho*28 Pat*3 Sig: Place 1 Patch topically on the skin daily.Refused By: MANDY MINOR for Refusal: Too soon-------- documented in this encounter Plan of Treatment Upcoming Encounters Date Type Specialty Care Team Description 03/18/2023 Office Visit Dermatology Tristin Alexander MD [address] [facility] [place] [address] 04/09/2023 Imaging Radiology 06/11/2023 Imaging Radiology 06/27/2023 Procedure Only Endoscopy Tobin Silva MD [address] [place] [address] Health Maintenance Due Date Last Done Comments DISCUSS TOBACCO CESSATION (REFER TO SMARTSET #4736) 1965 Hepatitis B (1 of 3 - [...] this encounter Medical Devices Implanted Type Area Greenskeeper Device Identifier Shelf Expiration Date Model / Serial / Lot Accolade Ii 127 Deg Sz 4 - [id number] Implanted:Qty: 1 on 12/05/2020 by Rodolfo Park, at OR [facility] Right: Hip KANDICE : ORTHOPAEDICS 11/07/2025 [id number] / / [id number] documented as of this encounter Visit Diagnoses [...] patient have Health Care Power of Binder Operator? Yes, not currently available Care Teams Housekeeper/Laundry Assistant Relationship Specialty Start Date End Date Roseann Plummer MD [address] [place] [address] PCP - General Internal Medicine 11/05/22 documented as of this encounter
--- OUTSIDE RECORDS SUMMARY | 2023-08-23 09:13 | External Medical Summary | Summary of Care ---
Author Name Unknown Organization [facility] Address [address] [place] [address] Phone [phone] Care Team Providers Care Manager Mba Name Role Phone Moi Plummer MD Primary Care Provider Reason for Visit * Reason Comments Rash Patient is here for rash all over her buttocks spreading into her groin area and backs of legs bilateral arms, torso and tops of feet. She has bad athletes foot and it's under her toe nails. Patient stated when she puts anything on it that it perry and it is very itchy. Her dr prescribed naftifine cream and she's been using that. * Evaluate & Treat - Unlimited Visits (Within 30 days (routine)) - Authorized Specialty Diagnoses / Procedures Referred By Nasir serrano Referred To Contact Dermatology Diagnoses Moi Cunningham MD [address] [place] [address] Referral ID Status Reason Start Date Expiration Date Visits Requested Visits Authorized [id number] Authorized Specialty Services Required 01/09/2023 999 [id number] Encounter Details Date Type Department Care Team Description 03/18/2023 Office Visit Dermatology State Aishwarya Hernandez [address] [place] [address] Tristin Alexander MD [address] [place] [address] Psoriasis vulgaris*; Dermatitis; Nail dystrophy Allergies Active Allergy Reactions Severity Noted Date Comments Buspirone Rash 11/01/2022 documented as of this encounter (statuses as of 03/18/2023) Medications Medication Sig Dispensed Refills Start Date [...] Transdermal Patch 24 Hour (Nicotine Step 1)Indications: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 Place 1 Patch topically on [...] as of this encounter (statuses as of 03/18/2023) Active Problems Problem Noted Date Dependence on [...] as of this encounter (statuses as of 03/18/2023) Resolved Problems Problem Noted Date Resolved Date Chronic kidney disease, stage 3a 10/08/2022 03/01/2023 Overview: Per CKD protocol Substance abuse 05/25/2022 03/01/2023 Food insecurity 03/06/2021 01/11/2022 Overview: Per [facility] Protocol documented as of this encounter (statuses as of 03/18/2023) Immunizations Name Administration Dates Next Due Pneumococcal [...] No 12/05/2020 documented as of this encounter Progress Notes * Tristin Alexander MD - 03/18/2023 1:49 PM EDT SUBJECTIVE: Chief Complaint: Chief Complaint Patient presents with Rash Patient is here for rash all over her buttocks spreading into her groin area and backs of legs bilateral arms, torso and tops of feet. She has bad athletes foot and it's under her toe nails. Patient stated when she puts anything on it that it perry and it is very itchy. Her dr prescribed naftifine cream and she's been using that. HPI: Bhumika Flores is a 57 year old female seen for rash. All over buttocks and groin. Was told itwas ringworm. Present 2 months. Perry. Given naftifine but didn't help No recent colds No history of psoriasis, no family history of psoriasis either History of arthritis in her back DERMATOLOGIC HISTORY: No prior history of any skin issues OBJECTIVE: GEN: Patient on supplemental oxygen, but alert, no distress, appears oriented, pleasant, and cooperative SKIN: Detailed exam of hair, face, trunk, arms, and legs Back, gluteal cleft onto buttocks, thighs with several large annular thick plaques with micaceous scale. Feet with thickened yellow toenails with subungual debris ASSESSMENT/PLAN: Psoriasiform rash and nail dystrophy - Favor psoriasis vulgaris - History obtained as above - Recommend biopsy to confirm diagnosis - Unclear if nail dystrophy is due to psoriasis of onychomycosis, will clip nail today - Will wait on further treatment until pathology report is reviewed - D/c topical antifungals - while awaiting pathology will start topical clobetasol. Discussed SE including atrophy, striae, telangiectasias - if biopsy confirms psoriasis, then consider systemic treatment considering involvement of buttocks/gluteal cleft but options may be limited due to her comorbidities. Kiarala? Indication:Back, gluteal cleft onto buttocks, thighs with several large annular thick plaques with micaceous scale. Several plaques oriented along prior scars Feet with thickened yellow toenails with subungual debris Favor psoriasis, doubt EAC Nail appears more likely onychomycosis Location: A: right thigh B. Left great toenail Procedure - Tangential biopsy of skin Biopsy by shave was recommended for the rash noted above to establish and confirm diagnosis. The procedure, risks, benefits, alternatives and expected outcomes were discussed with the patient and consent was obtained. Time out called. Patient identified, procedure verified, site(s) identified and verified. Patient and staff present in agreement. Area prepped with alcohol and anesthetized using 0.5% lidocaine with epinephrine at 1:200,000 concentration. Biopsy of lesion(s) performed. 20% AlCl and bandaging applied. Specimen(s) sent to pathology. Patient instructed in routine post-op care. Tristin Alexander MD Ref: MOI PLUMMER[[id number]] [address] [place] [address] (office) [phone] (fax) PCP: MOI PLUMMER [address] [place] [address] [phone] documented in this encounter Nursing Notes * Lisa La LPN - 03/18/2023 1:40 PM EDT Patient identified by name and date of . Do you have any concerns about pain management for today's visit? No Living Will or Advance Directive for Health Care as noted on problem list. [employer] is a way you can talk to your provider online through e-mail. Would you like to sign up? I can activate it for you? ALREADY ACTIVE Chief Complaint Patient presents with Rash Patient is here for rash all over her buttocks spreading into her groin area and backs of legs bilateral arms, torso and tops of feet. She has bad athletes foot and it's under her toe nails. Patient stated when she puts anything on it that it perry and it is very itchy. Her dr prescribed naftifine cream and she's been using that. documented in this encounter Plan of Treatment Upcoming Encounters Date Type Specialty Care Team Description 04/09/2023 Imaging Radiology 06/11/2023 Imaging Radiology 06/17/2023 Office Visit Dermatology Tristin Alexander MD [address] [facility] [place] [address] 06/27/2023 Procedure Only Endoscopy Tobin Silva MD [address] [place] [address] 07/03/2023 Office Visit Pulmonary Huan Branham MD [address] [phone] Pending Results Name Type Priority Associated Diagnoses Date /Time SURGICAL PATHOLOGY Pathology Routine Dermatitis Nail dystrophy 03/18/2023 2:00 PM EDT Health Maintenance Due Date Last Done Comments [...] encounter Medical Devices Implanted Type Area Head Waiter Device Identifier Shelf Expiration Date Model / Serial / Lot Accolade Ii 127 Deg Sz 4 - [id number] Implanted:Qty: 1 on 12/05/2020 by Rodolfo Park, DO at OR [facility] Right: Hip KANDICE : ORTHOPAEDICS 11/07/2025 [id number] / / [id number] documented as of this encounter Visit Diagnoses Diagnosis Psoriasis vulgaris- Primary Other psoriasis Dermatitis Contact dermatitis and other eczema, due to unspecified cause Nail dystrophy Other specified disease of nail documented in this encounter Advance Directives Latest [...] the patient have Health Care Power of Tool Die Maker? Yes, not currently available Care Teams Manager Mba Relationship Specialty Start Date End Date Moi lPummer MD [address] [place] [address] PCP - General Internal Medicine 11/05/22 documented as of this encounter
--- OUTSIDE RECORDS SUMMARY | 2023-08-23 09:13 | External Medical Summary | Summary of Care ---
Author Name Unknown Organization [facility] Address [address] [place] [address] Phone [phone] Care Team Providers Care Shop Worker Name Role Phone Roseann Plummer MD Primary Care Provider Reason for Visit * Reason Onset Date Comments Medication Refill 03/12/2023 Encounter Details Date Type Department Care Team Description 03/12/2023 Refill Family Practice [facility] [address] [facility] [place] [address] Roseann Plummer MD [address] [facility] [place] [address] Tobacco use disorder Allergies Active Allergy Reactions [...] on supplemental oxygen 2022 Pulmonary emboli 02/09/2023 KRALA (acute kidney injury) 05/25/2022 Anemia 05/25/2022 Thrombocytopenia [...] Office Visit Dermatology Tristin Alexander MD [address] [facility] [place] [address] 04/09/2023 Imaging Radiology 06/11/2023 Imaging Radiology 06/27/2023 Procedure Only Endoscopy Tobin Silva MD [address] [place] [address] Health Maintenance Due Date Last Done Comments DISCUSS TOBACCO CESSATION (REFER TO SMARTSET #2113) 1965 Hepatitis B (1 of 3 - [...] this encounter Medical Devices Implanted Type Area Tube Sorter Device Identifier Shelf Expiration Date Model / Serial / Lot Accolade Ii 127 Deg Sz 4 - [id number] Implanted:Qty: 1 on 12/05/2020 by Rodolfo Park, at OR [facility] Right: Hip K[employer]ICE : ORTHOPAEDICS 11/07/2025 [id number] / / [id number] documented as of this encounter Visit Diagnoses [...] the patient have Health Care Power of Finished Goods Inspector? Yes, not currently available Care Teams Shop Worker Relationship Specialty Start Date End Date Roseann Plummer MD [address] [place] [address] PCP - General Internal Medicine 11/05/22 documented as of this encounter
[2023-08-23] MEDS ORDERED: CEFEPIME 2,000 MG/20 ML VIAL IV STA (09:34)
[2023-08-23] MEDS ORDERED: SODIUM CHLORIDE 0.9% 1,000 ML IV ONE (09:34)
--- NOTE | 2023-08-23 09:43 | XRay Report ---
XR chest 1V portable CLINICAL HISTORY: Chest pain, nonspecific COMPARISON STUDY: Chest CT September 13, 2022. Chest radiograph October 12, 2022. FINDINGS: There is no pneumothorax. Small left pleural effusion. Cardiomediastinal silhouette is stab le. Bilateral lower lung airspace opacities are present. In addition, there is interstitial thickenin g. IMPRESSION: 1. Interstitial thickening suggestive of mild pulmonary edema. 2. Bilateral lower lung opacities which favor superimposed pneumonia. Alveolar pulmonary edema could appear similar. Radiographic follow-up to ensure resolution is recommended. 3. Small left pleural effusion. ACT 112: Negative or not required by law. Electronically signed by: Geoff Cote M.D. 08/23/2023 9:42 AM
[2023-08-23 09:45] LABS: Base Excess VBG 7.8 mEq/L; HCO3 VBG 35 mmol/L; Oxygen Saturation VBG 88.3 %; PCO2 VBG 60 mmHg (38-50); PO2 VBG 57 mmHg; pH VBG 7.37 (7.36-7.41)
[2023-08-23] MEDS ORDERED: NICOTINE 14 MG/24 HR PATCH TD STA (10:05)
[2023-08-23 10:16] LABS: Albumin Globulin Ratio 0.9 (0.9-2); Albumin Level 3.7 gm/dl (3.4-5.0); BUN Creatinine Ratio 14.7 (10-20); Bilirubin,Total 0.4 mg/dl (0.2-1.0); Calcium 9.4 mg/dl (8.6-10.3); Creatinine Clr Calc Pharmacy 108.8 ml/min; Est GFR (African American) 113.3 ml/min; Est GFR (Non-African American) 97.8 ml/min; Globulin 4.2 gm/dl (2.5-4.0); Potassium 3.4 mmol/L (3.5-5.1); Total Protein 7.9 gm/dl (6.0-8.3)
[2023-08-23 10:20] LABS: INR 1.1 (0.9-1.1); Partial Thromboplastin Ratio 1.3; Partial Thromboplastin Time 38 Seconds (21-31); Prothrombin Time 11.5 Seconds (9.0-12.0)
[2023-08-23 10:23] LABS: Troponin I High Sensitivity 15.9 pg/ml (0-14)
[2023-08-23] MEDS ORDERED: APIXABAN 5 MG TABLET PO STA (10:31)
[2023-08-23 10:33] LABS: C Reactive Protein 32.98 mg/dl (0-0.5)
[2023-08-23 10:37] LABS: Basophils # (auto) 0.03 K/uL (0.00-0.20); Basophils % (auto) 0.2 %; Eosinophils # (auto) 0.01 K/uL (0.00-0.50); Eosinophils % (auto) 0.1 %; Hemoglobin 13.3 g/dl (12.0-16.0); Immature Granulocytes % (auto) 0.7 %; Lymphocytes # (auto) 0.47 K/uL (1.20-3.40); Lymphocytes % (auto) 3.2 %; Mean Corpuscular Hgb Conc 33.3 g/dL (32.0-36.0); Mean Corpuscular Volume 99.3 fL (80.0-100.0); Monocytes # (auto) 0.95 K/uL (0.11-0.59); Monocytes % (auto) 6.4 %; Neutrophils # (auto) 13.26 K/uL (1.40-6.50); Neutrophils % (auto) 89.4 %; Platelet Count 84 K/uL (130-400); Platelet Estimate Decreased (Normal); RDW Coefficient of Variation 12.8 % (11.5-14.5); RDW Standard Deviation 46.3 fL (36.4-46.3); Red Blood Count 4.03 M/uL (4.20-5.40); White Blood Count 14.82 K/ul (4.8-10.8)
[2023-08-23] MEDS ORDERED: POLYETHYLENE (MIRALAX) 17 GM PACK PO PRN (10:39)
[2023-08-23] MEDS ORDERED: MAGNESIUM HYDROXIDE SUSP 30 ML UDC PO PRN (10:39)
[2023-08-23] MEDS ORDERED: ALUMINUM/MAGNESIUM SUSP 30 ML UDC PO PRN (10:39)
[2023-08-23 10:41] LABS: Influenza A virus by PCR Negative (Neg); Influenza B virus by PCR Negative (Neg); RSV by PCR Negative (Neg); SARS CoV2 RNA(COVID-19) Ceph NEGATIVE (Negative)
--- NOTE | 2023-08-23 10:52 | History & Physical Report ---
Date of Service August 23, 2023 Assessment & Plan (1) Acute hypoxemic respiratory failure: (2) COPD (chronic obstructive pulmonary disease): (3) Pulmonary embolism: (4) On home oxygen therapy: (5) HTN (hypertension): (6) Methadone maintenance therapy patient: (7) GERD (gastroesophageal reflux disease): (8) Sepsis due to pneumonia: (9) Parainfluenza infection: (10) Tobacco use: (11) History of alcohol abuse: Plan Ms. Flores is a 58-year-old female that presented to the ED from the methadone clinic where she was found to be hypoxic in the low 80s. Patient reports having a fever that started 2 days ago 100.3, reports productive cough with green/yellow sputum, decreased appetite and shortness of breath with exercise and going up stairs. No orthopnea reported but does indicate that she sleeps with numerous pillows elevating her back. Chest x-ray reveals mild pulmonary edema with lower lung opacities favoring a superimposed pneumonia with small left pleural effusion. Past medical history includes COPD, HTN, substance abuse on methadone maintenance, pulmonary hypertension, PFO status post shunt, depression, generalized OA pain, and GERD also do note patient has a history of PE (diagnosed August 2022; appears to be spontaneous and unprovoked; takes Eliquis chronically.). Patient does historically follow with pulmonary team for management of hypoxemic respiratory failure and pulmonary hypertension. There was consideration of her requiring a VQ scan in the outpatient setting for evaluation of chronic thromboembolic PE pulmonary hypertension. She is currently taking Lasix as in a patient and reports being compliant with such. VBG indicates a compensated mixed respiratory acidosis. Lactate 1.2, troponin 15.9, BNP 133, procalcitonin 0.33, CRP 32.98, hyponatremia 130, mild hypokalemia 3.4. Biofire was sent and returned positive for Parainfluenza Type4. Patient hypoxic in the low 80s upon arrival and placed on 13 L oximask; with improvement to the mid 90s. She is able to communicate in full complete sentences. Lungs sounded coarse with expiratory wheezes both anterior and posteriorly. Abdomen soft nontender nondistended. Euvolemic to dry on exam. No lower extremity swelling or calf tenderness. Due to patient being on Eliquis clot burden risk low. Patient recent PFTs 09/2022 FEV1 actually 1.92 in review of outpatient notes patient is on 2 L oxygen at home which is managed by pulmonary. She was to have a sleep study done as an outpatient but did not follow through with this. Patient denies dizziness, visual or auditory changes, chest pain, palpitations, abdominal pain or tenderness, urinary changes, bowel changes, recent falls or trauma. Suspect patient has signs of early sepsis with acute hypoxemia respiratory failure in the setting of a suspected pneumonia. Given the history of this individual being multifactorial from a pulmonary perspective with a history of PE, shunt physiology due to PFO and COPD; will re-involve pulmonary for their expertise and guidance with regards to further maintenance steroids and treatment plan. 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 Patient positive for para flu type IV and will continue supportive treatment. Will continue cefepime for now pending sputum and blood cultures; with suspicion of pneumonia. Replace potassium p.o. patient receptive to HFNC or BiPAP if necessary. Confirmed patient is full code. Early Sepsis in the setting on PNA: Acute hypoxemic respiratory failure: Parainfluenza Type4: Acute Bed request in PCU Meeting sepsis criteria with leukocytosis 14.82, hypoxia 82% on arrival and low grade fever 100.5 Lactate 1.2, BNP 133 Procalcitonin 0.33 Blood and sputum cultures ordered and pending Given 1 LNSB in ED; due to early sepsis and no elevated lactate and + Flu; 30 cc/kg fluid resuscitation not completed Will continue NS @ 100ml/hour x2 bags; reassess progress and supportive Flu treatment Cefepime ordered in ED; will continue for now and adjust based on blood and sputum cultures. Consider adding Vanco based on MRSA screen result May benefit from high flow nasal cannula; will await pulmonary recommendations Aspiration precautions Incentive spirometry and flutter valve ordered Mucinex ordered Received 1 hour neb in the ER with relief; continue DuoNebs QID and Q2h PRN Given the history of this individual being multifactorial from a pulmonary perspective with a history of PE, shunt physiology due to PFO and COPD; will re- involve pulmonary for their expertise and guidance with regards to further maintenance steroids and treatment plan. Hypokalemia: Acute Mild; K+ 3.4; replaced with 40 p.o. Recheck with BMP in a.m. Pulmonary hypertension: History of PFO: Chronic Possibly numerous contributing factors History of substance abuse placing at higher risk Takes Lasix; continue Given the history of this individual being multifactorial from a pulmonary perspective with a history of PE, shunt physiology due to PFO and COPD; will re- involve pulmonary for their expertise and guidance with regards to further maintenance steroids and treatment plan. ECHO ordered COPD: Tobacco use: Supplemental O2 at home: Chronic Wears 2 L nasal cannula supplemental oxygen at home 18/02 Has seen Pulmonary as inpatient Prescribed AnoraEllipta; Pt reports she is not taking this Takes albuterol for breakthrough; Has used approximately three times per day over past 48 hours Was to have outpatient sleep study performed which has not occurred yet Given the history of this individual being multifactorial from a pulmonary perspective with a history of PE, shunt physiology due to PFO and COPD; will re- involve pulmonary for their expertise and guidance with regards to further maintenance steroids and treatment plan. History of pulmonary embolism: Chronic diagnosed August 2022; appears to be spontaneous and unprovoked; takes Eliquis Patient did not take Eliquis this morning; was administered in ED Continue Eliquis BID Due to patient being on Eliquis clot burden risk low HTN: Chronic Takes metoprolol 12.5 mg p.o. 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 Unable to find ECHO in outpatient records; due to history and presenting symptoms will order an ECHO UDS ordered Reports using edible Gummies with THC nightly for insomnia; discussed medical marijuana policy for hospital History of alcohol abuse: Chronic Reports drinking 2 beers every few days Will place on a scale for Ativan 1 mg as needed use once Depression: Chronic Takes duloxetine; continue GERD: Chronic Takes Protonix; continue Disposition: PCP: Dr. Plummer CODE STATUS: Full code VTE prophylaxis: On Eliquis I spent a total of 87 minutes coordinating, documenting, and providing care for this patient excluding time spent in the performance of separately billed services. All of the aforementioned completed while collaborating with the assigned attending physician for a full treatment plan. Please see their addendum for further details. History of Present Illness Chief Complaint: shortness of breath Primary Care Provider: Joe Lockwood DO Ms. Flores is a 58-year-old female that presented to the ED from the methadone clinic where she was found to be hypoxic in the low 80s. Patient reports having a fever that started 2 days ago 100.3, reports productive cough with green/yellow sputum, decreased appetite and shortness of breath with ambulation. Reports shortness of breath with exercise including stairs. No orthopnea. Chest x-ray reveals mild pulmonary edema with lower lung opacities favoring a superimposed pneumonia with small left pleural effusion. Past medical history includes COPD, HTN, substance abuse on methadone maintenance, pulmonary hypertension, PFO status post shunt, depression, generalized OA pain, and GERD also do note patient has a history of PE (diagnosed August 2022; appears to be spontaneous and unprovoked; takes Eliquis). Patient does historically follow with pulmonary team for management of hypoxemic respiratory failure and pulmonary hypertension. There was consideration of her requiring a VQ scan in the outpatient setting for evaluation of chronic thromboembolic PE pulmonary hypertension. She is currently taking Lasix as in a patient and reports being compliant with such. VBG indicates a compensated mixed respiratory acidosis. Lactate 1.2, troponin 1 5.9, BNP 133, procalcitonin 0.33, CRP 32.98, hyponatremia 130, mild hypokalemia 3.4. Biofire was sent and returned positive for Parainfluenza Type4. Patient hypoxic in the low 80s upon arrival and placed on oximask Patient recent PFTs 09/2022 FEV1 actually 1.92 in review of outpatient notes patient is on 2 L oxygen at home which is managed by pulmonary. She was to have a sleep study done as an outpatient but did not follow through with this. Patient denies dizziness, visual or auditory changes, chest pain, palpitations, abdominal pain or tenderness, urinary changes, bowel changes, recent falls or trauma. Suspect patient has signs of early sepsis with acute hypoxemia respiratory failure in the setting of a suspected pneumonia. Given the history of this individual being multifactorial from a pulmonary perspective with a history of PE, shunt physiology due to PFO and COPD; will re-involve pulmonary for their expertise and guidance with regards to further maintenance steroids and rey atment plan. 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 Patient positive for para flu type IV and will continue supportive treatment. Will continue cefepime for now pending sputum and blood cultures; with suspicion of pneumonia. Replace potassium p.o. patient receptive to BiPAP if necessary. Confirmed patient is full code. Patient will be admitted for further evaluation and management. Please see A/P for further details. Allergies Allergy/AdvReac Type Severity Reaction Status Date / Time olive oil AdvReac Unknown reacts Verified 06/25/23 12:11 with methadone Home Medications Medication Instructions Recorded Confirmed Type amlodipine 10 mg tablet 10 mg PO QAM 05/16/22 08/23/23 History duloxetine 30 mg capsule,delayed 30 mg PO QAM 05/16/22 08/23/23 History release albuterol sulfate 90 mcg/actuation 2 puff inhalation Q6H PRN Cough 09/12/22 08/23/23 History aerosol inhaler apixaban 5 mg tablet (Eliquis) 5 mg PO BID #63 tabs 09/21/22 08/23/23 Rx ferrous gluconate 324 mg (38 mg 324 mg PO QAM #30 tabs 09/21/22 08/23/23 Rx iron) tablet furosemide 40 mg tablet 40 mg PO QAM #30 tabs 09/21/22 08/23/23 Rx cyanocobalamin (vitamin B-12) 100 0 mcg PO 3XWK 06/25/23 08/23/23 History mcg tablet (Vitamin B-12) methadone 10 mg/5 mL oral solution 100 mg PO QAM 06/25/23 08/23/23 History nicotine 7 mg/24 hr daily 0 patch transdermal DAILY 06/25/23 08/23/23 History transdermal patch pantoprazole 40 mg tablet,delayed 40 mg PO QAM 06/25/23 08/23/23 History release potassium chloride 10 mEq 10 meq PO QAM 06/25/23 08/23/23 History tablet,extended release (K-Tab) bisacodyl 5 mg tablet 0 mg PO HS PRN Constipation 08/23/23 08/23/23 History melatonin 3 mg tablet 0 mg PO HS PRN sleep 08/23/23 08/23/23 History metoprolol succinate 25 mg 12.5 mg PO BID 08/23/23 08/23/23 History tablet,extended release 24 hr polyethylene glycol 3350 17 gram 0 g PO DAILY PRN laxative effect 08/23/23 08/23/23 History oral powder packet (Miralax) Past Med/Surg History Medical History (Updated 08/23/23 @ 12:45 by PAYAL Welch) History of alcohol abuse Tobacco use Sepsis due to pneumonia Methadone maintenance therapy patient GERD (gastroesophageal reflux disease) HTN (hypertension) History of endocarditis --- r/t IV drug use. S/P transesophageal echocardiogram (RENATA) Lung nodule Constipation Anxiety Aspiration pneumonia 08/2022 from vomitting -- reports she "passed out and vomitted while she was incoherent" On home oxygen therapy 2 - 2.5 lpm via n/c daily Pulmonary embolism dx 08/2022 - unknown the cause. treated with anticoagulants. Thrombocytopenia Hepatitis C test positive pt denies. Anemia Recurrent major depressive disorder COPD (chronic obstructive pulmonary disease) Surgical History Status post total hip replacement, right Family History Other Family history non-contributory No family history of adverse response to anesthesia Social History Smoking Status: Current every day smoker Tobacco Type: Cigarettes Cigarettes Per Day: 6 cigs daily; Second Hand Exposure: Yes; Do You Dip or Chew Tobacco: No; Hx Alcohol Use: Yes Alcohol type: beer Preferred Language: Romansh Communication Ability: Effective Receiving Supervisor Required: No Beliefs That Will Affect Care: None Current Living Situation: Alone Feels Safe at Home: Yes Assistive Devices: Denture - Upper, Denture - Lower, Glasses and Oxygen - Continuous Review of Systems Review of Systems: Neuro: (-) Falls, trauma, slurred speech HEENT: (-) OWENS, dizziness, dysphagia, visual or auditory changes CV: (-) CP, palpitations, swelling Resp: (-) SOB GI: (-) appetite changes, N/V/D, bowel changes : (-) urinary changes Skin: (-) rashes Psych: (-) anxiety, depression Physical Exam Physical Exam: Neuro: AAOx4, PERRLA, no aphagia, memory changes, CNII-XII grossly intact HEENT: head normocephalic, moist mucus membranes CV: S1/S2, (-) M/G/R, (-) edema, cap refill < 3 seconds Resp: Lungs CTA in all phillips. On RA GI: Abdomen S/NT/ND, Ax4 bowel sounds, (-) CVA tenderness Musculoskeletal: 5/5 B/L UE strength, 5/5 B/L LE strength. No gait disturbance Skin: (-) rashes , (-) erythema. Psych: euthymic mood Results & Data Results & Data Vital Signs (Past 12 Hours) Vital Signs Temp Pulse Pulse Resp BP BP Pulse Ox 08/23/23 10:09 84 L 08/23/23 10:08 87 L 08/23/23 09:36 88 L 08/23/23 09:35 97 H 26 H 108/84 88 L 08/23/23 09:14 90 08/23/23 09:05 80 L 08/23/23 08:53 37.0 C 90 26 H 121/73 70 L O2 Del Method O2 Flow Rate 08/23/23 10:09 Oxymask 08/23/23 10:08 Oxymask, Nebulizer 10 08/23/23 09:36 Nebulizer 10 08/23/23 09:35 Nebulizer 10 08/23/23 09:14 08/23/23 09:05 Nasal Cannula, Oxymask 6 08/23/23 08:53 Nasal Cannula 2 Laboratory Results Short CBC 08/23/23 Range/Units 09:30 WBC 14.82 H (4.8-10.8) K/ul Hgb 13.3 (12.0-16.0) g/dl Hct 40.0 (37.0-47.0) % Plt Count 84 L (130-400) K/uL BMP 08/23/23 09:30 Sodium 130 L Potassium 3.4 L Chloride 91 L Carbon Dioxide 31 BUN 10 Creatinine 0.68 Glucose 120 H Calcium 9.4 Liver Function 08/23/23 Range/Units 09:30 Total Bilirubin 0.4 (0.2-1.0) mg/dl AST 25 (13-39) U/L ALT 21 (7-52) U/L Alkaline Phosphatase 156 H (34-104) U/L Albumin 3.7 (3.4-5.0) gm/dl Diagnostic Findings Short CBC 08/23/23 Range/Units 09:30 WBC 14.82 H (4.8-10.8) K/ul Hgb 13.3 (12.0-16.0) g/dl Hct 40.0 (37.0-47.0) % Plt Count 84 L (130-400) K/uL BMP 08/23/23 09:30 Sodium 130 L Potassium 3.4 L Chloride 91 L Carbon Dioxide 31 BUN 10 Creatinine 0.68 Glucose 120 H Calcium 9.4 Liver Function 08/23/23 Range/Units 09:30 Total Bilirubin 0.4 (0.2-1.0) mg/dl AST 25 (13-39) U/L ALT 21 (7-52) U/L Alkaline Phosphatase 156 H (34-104) U/L Albumin 3.7 (3.4-5.0) gm/dl Chest X-Ray 08/23/23 08:55 XR chest 1V portable CLINICAL HISTORY: Chest pain, nonspecific COMPARISON STUDY: Chest CT September 13, 2022. Chest radiograph October 12, 2022. FINDINGS: There is no pneumothorax. Small left pleural effusion. Cardiomediastinal silhouette is stable. Bilateral lower lung airspace opacities are present. In addition, there is interstitial thickening. IMPRESSION: 1. Interstitial thickening suggestive of mild pulmonary edema. 2. Bilateral lower lung opacities which favor superimposed pneumonia. Alveolar pulmonary edema could appear similar. Radiographic follow-up to ensure resolution is recommended. 3. Small left pleural effusion. ACT 112: Negative or not required by law. Electronically signed by: Geoff Cote M.D. 08/23/2023 9:42 AM Code Status & VTE Plan Code Status Full code in the event of cardiac respiratory arrest VTE Prophylaxis Plan VTE Prophylaxis will be ordered: Yes Supervising Physician Co-Signing Physician Notes I have seen and examined the patient and have discussed the case with the provider above. I agree with the assessment and plan as stated. 58-year-old female smoker presents with acute respiratory failure secondary to parainfluenza pneumonia. She reports worsening of her shortness of breath since last evening. She reports feeling better with initial treatment in the ER including IV fluids, broad-spectrum antibiotics, dexamethasone 10 mg p.o. She is oxygenating 91% on 13 L/min via oxime mask. Clinical picture is consistent with a possible evolving sepsis case. On exam she is well-nourished well-developed and in no acute distress on oxygen supplementation. She is mentating clearly. Poor dentition. Skin is warm and dry with evidence of recent diaphoresis on her back. She has rales bilaterally at the lung bases heard best at expiration and is not exhibiting increased work of breathing. Cardiac exam reveals S1-S2 heard with no evidence of murmurs gallops or rubs and she has a regular rate and rhythm. No peripheral edema is present and she appears euvolemic to dry. Workup including CBC with leukocytosis of 14.8 with a left shift and thrombocytopenia likely secondary to consumption from worsening acute illness. She is on apixaban and has been compliant with therapy. Will trend CBC in a.m. and if platelets drop any lower may consider holding Eliquis. She has a chronic hypercarbia secondary to history of COPD. She also has a history of pulmonary hypertension and shunt physiology from a known PFO and continues to smoke cigarettes. She has a history of pulmonary embolism. CHEM panel reveals sodium of 130, potassium 3.4, chloride 91, BUN 10, creatinine 0.68. She reports a poor appetite over the last couple of days. At bedtime troponin is 15.9 followed by 16.8 a couple hours later indicating this is likely demand ischemia from sepsis as opposed to ACS especially because she is lacking chest pain or EKG changes that would be consistent with ACS. Chest x-ray with bilateral lower lung opacities consistent with pneumonia. Agree with plan above to continue with supplemental oxygen and will see if Vapotherm may be more effective. Appreciate pulmonary recommendations on how best to support her needs. Continue broad-spectrum antibiotics for the time being with her sepsis picture, however, if she is clinically improved with negative cultures would consider rapid de-escalation as this is likely all from a viral pneumonia. Continue to promote smoking cessation efforts. Monitor for any withdrawal from alcohol or marijuana. Continue chronic methadone for maintenance while admitted. DO Rogelio
[2023-08-23] MEDS ORDERED: POTASSIUM CHLORIDE CRTAB 20 MEQ TABCR PO ONE (10:54)
[2023-08-23 11:25] LABS: Adenovirus PCR Not Detected (NotDetected); Bordetella parapertussis PCR Not Detected (NotDetected); Bordetella pertussis PCR Not Detected (NotDetected); Chlamydia pneumoniae PCR Not Detected (NotDetected); Coronavirus 229E PCR Not Detected (NotDetected); Coronavirus CoV-2 (COVID19)PCR Not Detected (NotDetected); Coronavirus HKU1 PCR Not Detected (NotDetected); Coronavirus NL63 PCR Not Detected (NotDetected); Coronavirus OC43PCR Not Detected (NotDetected); Human Metapneumovirus PCR Not Detected (NotDetected); Influenza A PCR Not Detected (NotDetected); Influenza B PCR Not Detected (NotDetected); Mycoplasma pneumoniae PCR Not Detected (NotDetected); Parainfluenza Virus 1 PCR Not Detected (NotDetected); Parainfluenza Virus 2 PCR Not Detected (NotDetected); Parainfluenza Virus 3 PCR Not Detected (NotDetected); Respiratory Syncytial VirusPCR Not Detected (NotDetected); Rhinovirus/Enterovirus PCR Not Detected (NotDetected)
[2023-08-23 11:41] LABS: Magnesium 1.8 mg/dl (1.7-2.4); Phosphorus 2.2 mg/dl (2.5-4.9)
[2023-08-23 11:48] LABS: Parainfluenza Virus 4 PCR DETECTED (NotDetected)
[2023-08-23] MEDS ORDERED: bisacodyL 5 MG TABEC PO PRN (12:10)
[2023-08-23 12:28] LABS: Amphetamines+Metham, Urine Neg (Neg); Barbiturates, Urine Neg (Neg); Benzodiazepine, Urine Neg (Neg); Cocaine, Urine Neg (Neg); MDMA (Ecstacy), Urine Neg (Neg); Marijuana, Urine Pos (Neg); Methadone, Urine Pos (Neg); Opiate, Urine Neg (Neg); Phencyclidine, Urine Neg (Neg)
[2023-08-23] MEDS ORDERED: LORazepam 1 MG in SYRINGE 0.5 ML IV PRN (12:50)
--- NOTE | 2023-08-23 14:11 | Pulmonary Consultation ---
Date of Consultation August 23, 2023 Assessment & Plan (1) Tobacco use: (2) Parainfluenza infection: (3) Pulmonary hypertension: (4) COPD (chronic obstructive pulmonary disease): COPD type: unspecified COPD Qualified Code(s): J44.9 - Chronic obstructive pulmonary disease, unspecified (5) Pulmonary embolism: (6) Acute on chronic respiratory failure with hypoxia and hypercapnia: Plan Chest x-ray 08/23/2023 personally reviewed: Portable film, good respiratory effort, hyperinflated with flattened diaphragm, left costophrenic angle is blunted, patchy opacities bilateral lower lobes 2D echo 09/13/2022: Small patent foramen ovale, EF 60-65%, flattened septum, RV normal in size and function, RVSP 50-[address] chest 09/13/2022 personally reviewed: Centrilobular emphysema appreciated bilaterally Small less than 4 mm pulmonary nodules appreciated bilaterally Small subsegmental pulmonary emboli bilaterally Cardiomegaly Dependent atelectasis bilateral lower lobes with interlobular thickening No significant mediastinal lymphadenopathy -- Acute on chronic hypoxic hypercapnic respiratory failure On 2 L oxygen at home Likely secondary to parainfluenza Procalcitonin 0.33, nasal MRSA negative Respiratory bio fire negative for parainfluenza BNP 173 Follow sputum culture --COPD > [id number] smoking history Would recommend discharging the patient on Stiolto on discharge --Pulmonary hypertension Likely a combination of type II and type III Patient also has a small PFO --Probable CHARLENE Continue with BiPAP nightly and as needed shortness of breath --History of pulmonary emboli On apixaban -- Methadone dependence Has been free of any IV drugs for 17 years Plan: Add doxycycline for atypical coverage Continue with diuretics to keep the patient euvolemic to negative balance Keep O2 saturation between 90-92% given the pulmonary hypertension Will give budesonide nebulized BiPAP nightly and as needed shortness of breath Please note the above document was generated using voice recognition software. It may contain grammatical, syntax or spelling errors.Any formal questions or concerns about the content, text or information contained within the body of this dictation should be directly addressed to the provider for clarification. History of Present Illness Attending Physician: Luz Marina Mercado DO History of Present Illness 57-year-old female presents to the hospital for shortness of breath Past medical history: Pulmonary hypertension, hypertension, anxiety/depression Pulmonary positive for hypoxia and COPD At the time of examination patient was sleeping. She was saturating 96% on 15 L oxygen RASS When I woke her up her saturation went up to 99%. While interrogating and examining the patient I was able to go down on the saturation to 5 L and she was still saturating 93-94% She was not in respiratory distress. Patient says she has been having issues with breathing for going on for approximately 4-5 days progressively getting worse Subjective fever and chills. Has been complaining of cough bringing up phlegm which is copious amount. No hemoptysis Did complain of some chest pain on taking deep breaths which has since resolved. No night sweats, no unintentional weight loss No headache or blurry vision. No nausea vomiting No dysuria, no diarrhea Social history: 60-pqag-dumb smoking history, currently smoking 3-4 cigarettes on a daily basis. Currently drinking 4 beers on a weekly basis. Used to be heavy drinker before Used to do heroin as well as cocaine IV. Quit 17 years ago, at the age of 41. Has a dog at home No personal or family history of asthma No history of lung cancer in the family Allergies Allergy/AdvReac Type Severity Reaction Status Date / Time olive oil AdvReac Unknown reacts Verified 06/25/23 12:11 with methadone Home Medications Medication Instructions Recorded Confirmed Type amlodipine 10 mg tablet 10 mg PO QAM 05/16/22 08/23/23 History duloxetine 30 mg capsule,delayed 30 mg PO QAM 05/16/22 08/23/23 History release albuterol sulfate 90 mcg/actuation 2 puff inhalation Q6H PRN Cough 09/12/22 08/23/23 History aerosol inhaler apixaban 5 mg tablet (Eliquis) 5 mg PO BID #63 tabs 09/21/22 08/23/23 Rx ferrous gluconate 324 mg (38 mg 324 mg PO QAM #30 tabs 09/21/22 08/23/23 Rx iron) tablet furosemide 40 mg tablet 40 mg PO QAM #30 tabs 09/21/22 08/23/23 Rx cyanocobalamin (vitamin B-12) 100 0 mcg PO 3XWK 06/25/23 08/23/23 History mcg tablet (Vitamin B-12) methadone 10 mg/5 mL oral solution 100 mg PO QAM 06/25/23 08/23/23 History nicotine 7 mg/24 hr daily 0 patch transdermal DAILY 06/25/23 08/23/23 History transdermal patch pantoprazole 40 mg tablet,delayed 40 mg PO QAM 06/25/23 08/23/23 History release potassium chloride 10 mEq 10 meq PO QAM 06/25/23 08/23/23 History tablet,extended release (K-Tab) bisacodyl 5 mg tablet 0 mg PO HS PRN Constipation 08/23/23 08/23/23 History melatonin 3 mg tablet 0 mg PO HS PRN sleep 08/23/23 08/23/23 History metoprolol succinate 25 mg 12.5 mg PO BID 08/23/23 08/23/23 History tablet,extended release 24 hr polyethylene glycol 3350 17 gram 0 g PO DAILY PRN laxative effect 08/23/23 08/23/23 History oral powder packet (Miralax) Patient History Medical History (Updated 08/23/23 @ 17:29 by Xena Carey MD, [facility]) History of alcohol abuse Tobacco use Sepsis due to pneumonia Methadone maintenance therapy patient GERD (gastroesophageal reflux disease) HTN (hypertension) History of endocarditis --- r/t IV drug use. S/P transesophageal echocardiogram (RENATA) Lung nodule Constipation Anxiety Aspiration pneumonia 08/2022 from vomitting -- reports she "passed out and vomitted while she was incoherent" On home oxygen therapy 2 - 2.5 lpm via n/c daily Pulmonary embolism dx 08/2022 - unknown the cause. treated with anticoagulants. Thrombocytopenia Hepatitis C test positive pt denies. Anemia Recurrent major depressive disorder COPD (chronic obstructive pulmonary disease) Surgical History Status post total hip replacement, right Family History Other Family history non-contributory No family history of adverse response to anesthesia Social History Smoking Status: Current every day smoker Tobacco Type: Cigarettes Cigarettes Per Day: 6 cigs daily; Second Hand Exposure: Yes; Do You Dip or Chew Tobacco: No; Hx Alcohol Use: Yes Alcohol type: beer Preferred Language: Albanian Communication Ability: Effective School Bus Technician Required: No Beliefs That Will Affect Care: None Current Living Situation: Alone Feels Safe at Home: Yes Assistive Devices: Denture - Upper, Denture - Lower, Glasses and Oxygen - Continuous Review of Systems 2 Review of Systems: All systems reviewed & are unremarkable except as noted in HPI & below Physical Exam 2 Physical Exam: Constitutional: No acute distress HEENT: EOMI, PERRLA Respiratory system: Decreased air entry bilaterally, diffuse expiratory wheeze, no rhonchi, positive crackles bilaterally CVS: S1-S2 positive, no murmurs or gallops Abdomen: Soft, nontender, nondistended, positive bowel sounds x4, obese Extremities: +2 pulses bilaterally radialis/ dorsalis pedis, no cyanosis, no edema Neuro: Awake alert oriented x3 Psych: Normal mood and affect G/U: No Ernandez Skin: no rashes, warm and dry Lymphatic: no cervical or axillary lymphadenopathy Results & Data Results & Data Vital Signs (Past 12 Hours) Vital Signs Temp Pulse Pulse Resp BP BP Pulse Ox 08/23/23 12:38 08/23/23 12:30 103 H 26 H 130/67 89 L 08/23/23 11:26 91 08/23/23 11:00 93 H 23 89 L 08/23/23 11:00 116/60 08/23/23 10:45 113 H 26 H 119/85 90 08/23/23 10:35 105 H 28 H 89 L 08/23/23 10:12 119 H 23 91 08/23/23 10:09 84 L 08/23/23 10:08 87 L 08/23/23 09:36 88 L 08/23/23 09:35 97 H 26 H 108/84 88 L 08/23/23 09:30 97 H 19 88 L 08/23/23 09:30 108/84 08/23/23 09:14 88 25 H 88 L 08/23/23 09:14 137/80 08/23/23 09:14 90 08/23/23 09:13 90 23 88 L 08/23/23 09:05 80 L 08/23/23 08:53 37.0 C 90 26 H 121/73 70 L O2 Del Method O2 Flow Rate 08/23/23 12:38 Oxymask 13 08/23/23 12:30 Oxymask 13 08/23/23 11:26 Oxymask 13 08/23/23 11:00 Oxymask 13 08/23/23 11:00 08/23/23 10:45 Oxymask 13 08/23/23 10:35 08/23/23 10:12 08/23/23 10:09 Oxymask 10 08/23/23 10:08 Oxymask, Nebulizer 10 08/23/23 09:36 Nebulizer 10 08/23/23 09:35 Nebulizer 10 08/23/23 09:30 08/23/23 09:30 08/23/23 09:14 08/23/23 09:14 08/23/23 09:14 08/23/23 09:13 08/23/23 09:05 Nasal Cannula, Oxymask 6 08/23/23 08:53 Nasal Cannula 2 Laboratory Results 08/23/23 09:30 08/23/23 09:30 PG Care Time/CCT Total # of Minutes Spent Total Time Spent with Patient: Total time spent is greater than 50% in coordination of care (as documented) at patient's floor/unit and/or counseling patient: Coding Level of Care Code 53611 INT INP/OBS CARE 3/75MIN Diagnoses Tobacco use Z72.0 Parainfluenza infection B34.8 Pulmonary hypertension I27.20 COPD (chronic obstructive pulmonary disease) J44.9 COPD type: unspecified COPD Pulmonary embolism I26.99 Acute on chronic respiratory failure with hypoxia and hypercapnia J96.21; J96.22
[2023-08-23] MEDS: SODIUM CHLORIDE 0.9% 1,000 ML IV SCH (15:18)
[2023-08-23] MEDS: guaiFENesin 600 MG TABCR PO SCH ×2 (15:18→20:27)
--- NOTE | 2023-08-23 17:32 | Electrocardiogram Report ---
Test Reason : Blood Pressure : / mmHG Vent. Rate : 092 BPM Atrial Rate : 092 BPM P-R Int : 126 ms QRS Dur : 070 ms QT Int : 344 ms P-R-T Axes : 074 063 052 degrees QTc Int : 425 ms Normal sinus rhythm Nonspecific ST and T wave abnormality Abnormal ECG When compared with ECG of 09-OCT-2022 16:31, ST now depressed in Inferior leads ST no longer depressed in Lateral leads Nonspecific T wave abnormality, worse in Anterior leads T wave inversion no longer evident in Lateral leads Confirmed by Fabian Wayne ([id number]) on 08/23/2023 5:32:24 PM Referred By: REFERRED SELF Confirmed By:Sawyer Wayne
[2023-08-23] MEDS: CEFEPIME 2,000 MG in SYRINGE 0 ML IV SCH (18:03)
[2023-08-23] MEDS: ALBUT/IPRATROP 3MG/0.5MG NEB 3 ML VIAL NEB SCH (18:19)
[2023-08-23] MEDS: BUDESONIDE 0.5 MG/2 ML VIAL (PULMICORT) NEB SCH (19:41)
[2023-08-23] MEDS: FORMOTEROL 20 MCG/2 ML VIAL NEB SCH (19:41)
[2023-08-23] MEDS: MELATONIN 3 MG TAB PO PRN (20:23)
[2023-08-23] MEDS: METOPROLOL SUCC 25MG EXT REL TAB PO SCH (20:23)
[2023-08-23] MEDS: DOXYCYCLINE HYCLATE 100 MG CAP PO SCH (20:26)
[2023-08-23] MEDS: APIXABAN 5 MG TABLET PO SCH (20:26)
[2023-08-24] MEDS: SODIUM CHLORIDE 0.9% 1,000 ML IV SCH (01:10)
[2023-08-24] MEDS: CEFEPIME 2,000 MG in SYRINGE 0 ML IV SCH ×3 (01:12→17:54)
[2023-08-24 05:46] LABS: Hematocrit (blood only) 36.2 % (37.0-47.0); Hemoglobin 11.6 g/dl (12.0-16.0); Mean Corpuscular Hemoglobin 32.2 pg (25.0-34.0); Mean Corpuscular Volume 100.6 fL (80.0-100.0); Mean Platelet Volume 11.2 fL (9.4-12.4); Platelet Count 92 K/uL (130-400); RDW Coefficient of Variation 12.8 % (11.5-14.5); RDW Standard Deviation 47.5 fL (36.4-46.3); White Blood Count 8.88 K/ul (4.8-10.8)
[2023-08-24 05:59] LABS: Albumin Globulin Ratio 0.9 (0.9-2); Albumin Level 3.2 gm/dl (3.4-5.0); BUN Creatinine Ratio 21.4 (10-20); Bilirubin,Total 0.3 mg/dl (0.2-1.0); Calcium 9.1 mg/dl (8.6-10.3); Chol HDL Ratio 9.2 (0-5); Creatinine Clr Calc Pharmacy 105.7 ml/min; Est GFR (African American) 112.3 ml/min; Est GFR (Non-African American) 96.9 ml/min; Globulin 3.7 gm/dl (2.5-4.0); Potassium 3.7 mmol/L (3.5-5.1); Total Protein 6.9 gm/dl (6.0-8.3)
[2023-08-24] MEDS: FORMOTEROL 20 MCG/2 ML VIAL NEB SCH ×2 (07:11→20:08)
[2023-08-24] MEDS: BUDESONIDE 0.5 MG/2 ML VIAL (PULMICORT) NEB SCH ×2 (07:11→20:08)
[2023-08-24] MEDS: ALBUT/IPRATROP 3MG/0.5MG NEB 3 ML VIAL NEB SCH ×4 (07:11→20:08)
[2023-08-24] MEDS: DOXYCYCLINE HYCLATE 100 MG CAP PO SCH ×2 (08:09→20:25)
[2023-08-24] MEDS: DULoxetine HCL 30 MG CAP PO SCH (08:09)
[2023-08-24] MEDS: METOPROLOL SUCC 25MG EXT REL TAB PO SCH ×2 (08:09→20:25)
[2023-08-24] MEDS: METHADONE ORAL SOLN 2 MG/ML PO SCH (08:12)
[2023-08-24] MEDS ORDERED: UMECLIDINIUM/VILANTEROL 62.5/25MCG 7 PUFFS/INHALER INH SCH (09:00)
[2023-08-24] MEDS: guaiFENesin 600 MG TABCR PO SCH ×2 (09:46→20:25)
[2023-08-24] MEDS: PANTOprazole 40 MG TAB PO SCH (09:46)
[2023-08-24] MEDS: amLODIPine BESYLATE 5 MG TAB PO SCH (09:46)
[2023-08-24] MEDS: APIXABAN 5 MG TABLET PO SCH ×2 (09:46→20:24)
[2023-08-24] MEDS: FUROSEMIDE 40 MG TAB PO SCH (09:46)
[2023-08-24] MEDS: NICOTINE 14 MG/24 HR PATCH TD SCH (09:47)
[2023-08-24] MEDS: PATIENT'S OWN CONTROLLED MED 1: Methadone PO SCH (10:25)
--- NOTE | 2023-08-24 11:28 | Pulmonology Progress Note ---
Date of Service August 24, 2023 Assessment & Plan (1) Tobacco use: (2) Parainfluenza infection: (3) Pulmonary hypertension: (4) COPD (chronic obstructive pulmonary disease): COPD type: unspecified COPD Qualified Code(s): J44.9 - Chronic obstructive pulmonary disease, unspecified (5) Pulmonary embolism: (6) Acute on chronic respiratory failure with hypoxia and hypercapnia: Plan Chest x-ray 08/23/2023 personally reviewed: Portable film, good respiratory effort, hyperinflated with flattened diaphragm, left costophrenic angle is blunted, patchy opacities bilateral lower lobes 2D echo 09/13/2022: Small patent foramen ovale, EF 60-65%, flattened septum, RV normal in size and function, RVSP 50-[address] chest 09/13/2022 personally reviewed: Centrilobular emphysema appreciated bilaterally Small less than 4 mm pulmonary nodules appreciated bilaterally Small subsegmental pulmonary emboli bilaterally Cardiomegaly Dependent atelectasis bilateral lower lobes with interlobular thickening No significant mediastinal lymphadenopathy -- Acute on chronic hypoxic hypercapnic respiratory failure On 2 L oxygen at home Likely secondary to parainfluenza Procalcitonin 0.33, nasal MRSA negative Respiratory bio fire negative for parainfluenza BNP 173 Follow sputum culture --COPD > [id number] smoking history Would recommend discharging the patient on Stiolto on discharge --Pulmonary hypertension Likely a combination of type II and type III Patient also has a small PFO --Probable CHARLENE Continue with BiPAP nightly and as needed shortness of breath --History of pulmonary emboli On apixaban -- Methadone dependence Has been free of any IV drugs for 17 years Plan: Complete the course of doxycycline doxycycline for atypical coverage Continue with diuretics to keep the patient euvolemic to negative balance Keep O2 saturation between 90-92% given the pulmonary hypertension Continue with nebulized bronchodilators Given the persistent wheezing, will add Solu-Medrol 40 mg on a daily basis BiPAP nightly and as needed shortness of breath Please note the above document was generated using voice recognition software. It may contain grammatical, syntax or spelling errors.Any formal questions or concerns about the content, text or information contained within the body of this dictation should be directly addressed to the provider for clarification. Admission and Anticipated Discharge Date Admission Date: August 23, 2023 Subjective Patient seen and examined at bedside. No acute distress, notable since overnight She tried to use the BiPAP overnight. She did state that it was too much pressure for her, But still she used it Has been bringing up phlegm. Denies any hemoptysis Breathing is better compared to when she came to the hospital She was saturating 90-91% on 6 L nasal cannula at rest. No nausea vomiting, fair appetite Review of Systems 2 Review of Systems: All systems reviewed & are unremarkable except as noted in Subjective Physical Exam 2 Physical Exam: Constitutional: No acute distress HEENT: EOMI, PERRLA Respiratory system: Decreased air entry bilaterally, diffuse expiratory wheeze, no rhonchi, positive crackles bilaterally CVS: S1-S2 positive, no murmurs or gallops Abdomen: Soft, nontender, nondistended, positive bowel sounds x4, obese Extremities: +2 pulses bilaterally radialis/ dorsalis pedis, no cyanosis, no edema Neuro: Awake alert oriented x3 Psych: Normal mood and affect G/U: No Ernandez Skin: no rashes, warm and dry Lymphatic: no cervical or axillary lymphadenopathy Results & Data Results & Data Vital Signs (Past 12 Hours) Vital Signs Temp Pulse Resp BP Pulse Ox O2 Del Method O2 Flow Rate 08/24/23 11:21 88 22 91 Oxymask 6 08/24/23 07:32 55 L 20 97 Oxymask 5 08/24/23 07:31 36.4 C L 68 20 152/74 H 92 Oxymask 4 08/24/23 04:00 36.5 C 59 L 18 130/71 95 Oxymask 7 Laboratory Results 08/24/23 04:43 08/24/23 04:43 PG Care Time/CCT Total # of Minutes Spent Total Time Spent with Patient: Total time spent is greater than 50% in coordination of care (as documented) at patient's floor/unit and/or counseling patient: Coding Level of Care Code 86946 SUB INP/OBS CARE 3/50MIN Diagnoses Tobacco use Z72.0 Parainfluenza infection B34.8 Pulmonary hypertension I27.20 COPD (chronic obstructive pulmonary disease) J44.9 COPD type: unspecified COPD Pulmonary embolism I26.99 Acute on chronic respiratory failure with hypoxia and hypercapnia J96.21; J96.22
--- NOTE | 2023-08-24 12:17 | Hospitalist Progress Note ---
Date of Service August 24, 2023 Assessment & Plan (1) Acute hypoxemic respiratory failure: (2) COPD (chronic obstructive pulmonary disease): (3) Pulmonary embolism: (4) On home oxygen therapy: (5) HTN (hypertension): (6) Methadone maintenance therapy patient: (7) GERD (gastroesophageal reflux disease): (8) Sepsis due to pneumonia: (9) Parainfluenza infection: (10) Tobacco use: (11) History of alcohol abuse: Plan 58-year-old female that presented to the ED from the methadone clinic where she was found to be hypoxic in the low 80s. Patient reports having a fever that started 2 days ago 100.3, reports productive cough with green/yellow sputum, decreased appetite and shortness of breath with exercise and going up stairs. Past medical history includes COPD, HTN, substance abuse on methadone maintenance, pulmonary hypertension, PFO status post shunt, depression, generalized OA pain, and GERD also do note patient has a history of PE (diagnosed August 2022; appears to be spontaneous and unprovoked; takes Eliquis chronically.). Patient does historically follow with pulmonary team for management of hypoxemic respiratory failure and pulmonary hypertension. There was consideration of her requiring a VQ scan in the outpatient setting for evaluation of chronic thromboembolic PE pulmonary hypertension. She is being managed for the following: Parainfluenza type IV Superimposed bacterial pneumonia Sepsis POA: Likely secondary to above, heart rate/respiratory rate/WBC elevated at presentation. Lactate WNL. Acute hypoxemic respiratory failure Patient presents with febrile illness/cough/greenish sputum. Admitting CXR with bilateral lower lung opacities suggestive of pneumonia. Patient started on cefepime and doxycycline 08/23, continue. Follow admitting blood and sputum culture. Currently requiring 6 L oxygen via oxygen mask. Wean down as tolerated. Continue with incentive swimmers and flutter valve. Other supportive treatment. Continue nebs. Pulmonology on board, appreciate recommendation. WBC trending down. Patient afebrile. Hyponatremia: Likely secondary to poor appetite, improving. Hypokalemia: Likely secondary to poor appetite, improving. Pulmonary hypertension and history of PFO: Chronic, takes Lasix at home. Continue. Continue to follow-up with pulmonology as outpatient. Echo reviewed. COPD and tobacco use history: Chronic, uses 2 L nasal cannula oxygen. Continue nebs.DuoNebs, Pulmicort, Perforomist. History of PE: Chronic, stable. Continue home Eliquis. 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 On methadone 100 mg daily. Patient denies any drug use. Urinary tox screen positive for marijuana, follow final. History of alcohol abuse: Chronic, reports drinking 2 beers every few days. IWONA S protocol. Depression: Chronic, continue home duloxetine. GERD: Chronic, continue home Protonix CODE STATUS: Full code VTE prophylaxis: Patient on Eliquis Admission and Anticipated Discharge Date Admission Date: August 23, 2023 Subjective Patient was seen and examined at bedside. Patient was lying in bed, on 6 L oxygen via oxygen mask. Resting comfortably. Patient reports cough getting slightly better, sputum is now light green compared to dark green at the time of her arrival. Patient reports feeling better. Reports lack of hunger. Reports chronic constipation. Denies chest pain. Physical Exam Physical Exam: GENERAL: Alert and oriented x3. NAD, on 6L O2 via NC. HEENT: No pallor, no icterus. Pupils equal, round and reactive to light. Oral mucosa moist. NECK: No JVD, no neck masses. HEART: S1 and S2 heard. Regular rate and rhythm. No murmur, no gallop. RESPIRATORY SYSTEM: Normal AP diameter. No accessory muscle use. b/l crackles and wheeze ABDOMEN: Soft, bowel sounds present, nontender, no distention. CENTRAL NERVOUS SYSTEM: No facial droop. Speech is clear. Obeys simple commands. Moves extremities. EXTREMITIES: No edema, no erythema seen. Results & Data Results & Data Vital Signs (Past 12 Hours) Vital Signs Temp Pulse Pulse Resp BP Pulse Ox O2 Del Method 08/24/23 11:21 88 22 91 Oxymask 08/24/23 08:09 92 Oxymask 08/24/23 08:00 83 L Oxymask 08/24/23 08:00 52 L 08/24/23 07:32 55 L 20 97 Oxymask 08/24/23 07:31 36.4 C L 68 20 152/74 H 92 Oxymask 08/24/23 04:00 36.5 C 59 L 18 130/71 95 Oxymask O2 Flow Rate 08/24/23 11:21 6 08/24/23 08:09 6 08/24/23 08:00 4 08/24/23 08:00 08/24/23 07:32 5 08/24/23 07:31 4 08/24/23 04:00 7 (2) COPD (chronic obstructive pulmonary disease) COPD type: unspecified COPD Qualified Code(s): J44.9 - Chronic obstructive pulmonary disease, unspecified
[2023-08-24] MEDS: methylPREDNISolone 40 MG in SYRINGE 0 ML IV SCH (15:36)
[2023-08-24] MEDS: MELATONIN 3 MG TAB PO PRN (20:24)
[2023-08-24] MEDS ORDERED: BENZONATATE 100 MG CAPSULE PO PRN (23:15)
[2023-08-25] MEDS: CEFEPIME 2,000 MG in SYRINGE 0 ML IV SCH ×2 (01:31→08:47)
[2023-08-25 05:56] LABS: Hematocrit (blood only) 37.5 % (37.0-47.0); Hemoglobin 11.9 g/dl (12.0-16.0); Mean Corpuscular Hemoglobin 32.3 pg (25.0-34.0); Mean Corpuscular Hgb Conc 31.7 g/dL (32.0-36.0); Mean Corpuscular Volume 101.9 fL (80.0-100.0); Mean Platelet Volume 10.7 fL (9.4-12.4); Platelet Count 148 K/uL (130-400); RDW Coefficient of Variation 13.2 % (11.5-14.5); RDW Standard Deviation 50.1 fL (36.4-46.3); Red Blood Count 3.68 M/uL (4.20-5.40); White Blood Count 8.55 K/ul (4.8-10.8)
[2023-08-25 06:11] LABS: BUN Creatinine Ratio 23.3 (10-20); Calcium 9.5 mg/dl (8.6-10.3); Creatinine Clr Calc Pharmacy 101.7 ml/min; Est GFR (African American) 106.7 ml/min; Est GFR (Non-African American) 92.1 ml/min; Magnesium 1.9 mg/dl (1.7-2.4); Potassium 3.5 mmol/L (3.5-5.1)
[2023-08-25] MEDS: FORMOTEROL 20 MCG/2 ML VIAL NEB SCH ×2 (06:54→20:09)
[2023-08-25] MEDS: ALBUT/IPRATROP 3MG/0.5MG NEB 3 ML VIAL NEB SCH ×4 (06:54→19:29)
[2023-08-25] MEDS: BUDESONIDE 0.5 MG/2 ML VIAL (PULMICORT) NEB SCH ×2 (06:54→19:28)
[2023-08-25] MEDS: methylPREDNISolone 40 MG in SYRINGE 0 ML IV SCH (07:33)
[2023-08-25] MEDS: guaiFENesin 600 MG TABCR PO SCH ×2 (07:37→20:46)
[2023-08-25] MEDS: FUROSEMIDE 40 MG TAB PO SCH (07:38)
[2023-08-25] MEDS: APIXABAN 5 MG TABLET PO SCH ×2 (07:38→20:46)
[2023-08-25] MEDS: DULoxetine HCL 30 MG CAP PO SCH (07:38)
[2023-08-25] MEDS: METOPROLOL SUCC 25MG EXT REL TAB PO SCH ×2 (07:39→20:45)
[2023-08-25] MEDS: DOXYCYCLINE HYCLATE 100 MG CAP PO SCH (07:40)
[2023-08-25] MEDS: PANTOprazole 40 MG TAB PO SCH (07:41)
[2023-08-25] MEDS: amLODIPine BESYLATE 5 MG TAB PO SCH (07:41)
[2023-08-25] MEDS: NICOTINE 14 MG/24 HR PATCH TD SCH (07:41)
[2023-08-25] MEDS: METHADONE ORAL SOLN 2 MG/ML PO SCH (07:42)
[2023-08-25] MEDS: PATIENT'S OWN CONTROLLED MED 1: Methadone PO SCH (07:47)
[2023-08-25] MEDS: ONDANSETRON INJ 2 MG/ML 2 ML VIAL IV PRN (08:46)
--- NOTE | 2023-08-25 16:46 | Pulmonology Progress Note ---
Date of Service August 25, 2023 Assessment & Plan (1) Tobacco use: (2) Parainfluenza infection: (3) Pulmonary hypertension: (4) COPD (chronic obstructive pulmonary disease): COPD type: unspecified COPD Qualified Code(s): J44.9 - Chronic obstructive pulmonary disease, unspecified (5) Pulmonary embolism: (6) Acute on chronic respiratory failure with hypoxia and hypercapnia: Plan Chest x-ray 08/23/2023 personally reviewed: Portable film, good respiratory effort, hyperinflated with flattened diaphragm, left costophrenic angle is blunted, patchy opacities bilateral lower lobes 2D echo 09/13/2022: Small patent foramen ovale, EF 60-65%, flattened septum, RV normal in size and function, RVSP 50-[address] chest 09/13/2022 personally reviewed: Centrilobular emphysema appreciated bilaterally Small less than 4 mm pulmonary nodules appreciated bilaterally Small subsegmental pulmonary emboli bilaterally Cardiomegaly Dependent atelectasis bilateral lower lobes with interlobular thickening No significant mediastinal lymphadenopathy -- Acute on chronic hypoxic hypercapnic respiratory failure On 2 L oxygen at home Likely secondary to parainfluenza Procalcitonin 0.33, nasal MRSA negative Respiratory bio fire negative for parainfluenza BNP 173 Follow sputum culture --COPD > [id number] smoking history Would recommend discharging the patient on Stiolto on discharge --Pulmonary hypertension Likely a combination of type II and type III Patient also has a small PFO --Probable CHARLENE Continue with BiPAP nightly and as needed for shortness of breath --History of pulmonary emboli On apixaban -- Methadone dependence Has been free of any IV drugs for 17 years Plan: Patient with viral respiratory bronchiolitis and superimposed bacterial infection with Haemophilus influenzae. De-escalate from cefepime to Augmentin. Treat for a total of 7 days with antibiotics. Transition to p.o. prednisone starting tomorrow. Recommend an additional 5-day course of prednisone. Continue Perforomist and budesonide while inpatient. Discharge patient home on high-dose ICS/LABA/LAMA inhaler such as Trelegy or similar combination inhaler. Can lik teresa be discharged in the next 1 to 2 days. Patient would benefit from outpatient low-dose CT chest lung cancer screening and PFTs. No further recommendations at this time. Thank you for the consult. Please note the above document was generated using voice recognition software. It may contain grammatical, syntax or spelling errors.Any formal questions or concerns about the content, text or information contained within the body of this dictation should be directly addressed to the provider for clarification. Admission and Anticipated Discharge Date Admission Date: August 23, 2023 Subjective Patient continues with cough and shortness of breath. Notes significant wheezing. Feels little better compared to yesterday. Review of Systems Review of Systems: All systems reviewed & are unremarkable except as noted in Subjective Physical Exam Physical Exam: Constitutional: No acute distress HEENT: EOMI, PERRLA Respiratory system: Decreased air entry bilaterally, diffuse expiratory wheeze, no rhonchi, positive crackles bilaterally CVS: S1-S2 positive, no murmurs or gallops Abdomen: Soft, nontender, nondistended, positive bowel sounds x4, obese Extremities: +2 pulses bilaterally radialis/ dorsalis pedis, no cyanosis, no edema Neuro: Awake alert oriented x3 Psych: Normal mood and affect G/U: No Ernandez Skin: no rashes, warm and dry Lymphatic: no cervical or axillary lymphadenopathy Results & Data Results & Data Vital Signs (Past 12 Hours) Vital Signs Temp Pulse Pulse Resp BP Pulse Ox O2 Del Method 08/25/23 16:22 62 08/25/23 16:07 36.3 C L 98 H 20 144/77 H 92 Oxymask 08/25/23 12:01 36.4 C L 57 L 19 114/71 92 Oxymask 08/25/23 08:45 52 L 08/25/23 08:45 Oxymask 08/25/23 07:50 82 20 124/67 90 Oxymask 08/25/23 07:21 78 20 90 Oxymask O2 Flow Rate 08/25/23 16:22 08/25/23 16:07 5 08/25/23 12:01 9 08/25/23 08:45 08/25/23 08:45 9 08/25/23 07:50 08/25/23 07:21 7 PG Care Time/CCT Total # of Minutes Spent Total Time Spent with Patient: Total time spent is greater than 50% in coordination of care (as documented) at patient's floor/unit and/or counseling patient: Coding Level of Care Code 88660 SUB INP/OBS CARE 2/35MIN Diagnoses Tobacco use Z72.0 Parainfluenza infection B34.8 Pulmonary hypertension I27.20 COPD (chronic obstructive pulmonary disease) J44.9 COPD type: unspecified COPD Pulmonary embolism I26.99 Acute on chronic respiratory failure with hypoxia and hypercapnia J96.21; J96.22
[2023-08-25] MEDS: AMOXICILLIN/CLAVULANATE 875 MG TAB PO SCH (17:41)
--- NOTE | 2023-08-25 18:16 | Hospitalist Progress Note ---
Date of Service August 25, 2023 Assessment & Plan (1) Acute hypoxemic respiratory failure: (2) COPD (chronic obstructive pulmonary disease): (3) Pulmonary embolism: (4) On home oxygen therapy: (5) HTN (hypertension): (6) Methadone maintenance therapy patient: (7) GERD (gastroesophageal reflux disease): (8) Sepsis due to pneumonia: (9) Parainfluenza infection: (10) Tobacco use: (11) History of alcohol abuse: Plan 58-year-old female that presented to the ED from the methadone clinic where she was found to be hypoxic in the low 80s. Patient reports having a fever that started 2 days ago 100.3, reports productive cough with green/yellow sputum, decreased appetite and shortness of breath with exercise and going up stairs. Past medical history includes COPD, HTN, substance abuse on methadone maintenance, pulmonary hypertension, PFO status post shunt, depression, generalized OA pain, and GERD also do note patient has a history of PE (diagnosed August 2022; appears to be spontaneous and unprovoked; takes Eliquis chronically.). Patient does historically follow with pulmonary team for management of hypoxemic respiratory failure and pulmonary hypertension. There was consideration of her requiring a VQ scan in the outpatient setting for evaluation of chronic thromboembolic PE pulmonary hypertension. She is being managed for the following: Parainfluenza type IV Superimposed bacterial pneumonia Sepsis POA: Likely secondary to above, heart rate/respiratory rate/WBC elevated at presentation. Lactate WNL. Acute hypoxemic respiratory failure Patient presents with febrile illness/cough/greenish sputum. Admitting CXR with bilateral lower lung opacities suggestive of pneumonia. Patient started on cefepime and doxycycline 08/23, continue. Follow admitting blood and sputum culture. Currently requiring 6 L oxygen via oxygen mask. Wean down as tolerated. Continue with incentive swimmers and flutter valve. Other supportive treatment. Continue nebs. Pulmonology on board, appreciate recommendation. On Augmentin and prednisone now. DC on Trelegy. WBC trending down. Patient afebrile. Hyponatremia: Likely secondary to poor appetite, improving. Hypokalemia: Likely secondary to poor appetite, improving. Pulmonary hypertension and history of PFO: Chronic, takes Lasix at home. Continue. Continue to follow-up with pulmonology as outpatient. Echo reviewed. COPD and tobacco use history: Chronic, uses 2 L nasal cannula oxygen. Continue nebs.DuoNedinesh, Pulmicort, Perforomist. History of PE: Chronic, stable. Continue home Eliquis. 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 On methadone 100 mg daily. Patient denies any drug use. Urinary tox screen positive for marijuana, follow final. History of alcohol abuse: Chronic, reports drinking 2 beers every few days. IWONA S protocol. Depression: Chronic, continue home duloxetine. GERD: Chronic, continue home Protonix CODE STATUS: Full code VTE prophylaxis: Patient on Eliquis Admission and Anticipated Discharge Date Admission Date: August 23, 2023 Subjective Patient was seen and examined at bedside. Patient was lying in bed, on 9 L oxygen via oxygen mask. Resting comfortably. Had an episode of vomiting after coughing fits in the morning. Patient reports sputum color getting parachute folder now. Patient reports feeling better overall. Reports chronic constipation. Denies chest pain. Physical Exam Physical Exam: GENERAL: Alert and oriented x3. NAD, on 9L O2 via NC. HEENT: No pallor, no icterus. Pupils equal, round and reactive to light. Oral mucosa moist. NECK: No JVD, no neck masses. HEART: S1 and S2 heard. Regular rate and rhythm. No murmur, no gallop. RESPIRATORY SYSTEM: Normal AP diameter. No accessory muscle use. b/l crackles and wheeze ABDOMEN: Soft, bowel sounds present, nontender, no distention. CENTRAL NERVOUS SYSTEM: No facial droop. Speech is clear. Obeys simple commands. Moves extremities. EXTREMITIES: No edema, no erythema seen. Results & Data Results & Data Vital Signs (Past 12 Hours) Vital Signs Temp Pulse Pulse Resp BP Pulse Ox O2 Del Method 08/25/23 16:22 62 08/25/23 16:07 36.3 C L 98 H 20 144/77 H 92 Oxymask 08/25/23 12:01 36.4 C L 57 L 19 114/71 92 Oxymask 08/25/23 08:45 52 L 08/25/23 08:45 Oxymask 08/25/23 07:50 82 20 124/67 90 Oxymask 08/25/23 07:21 78 20 90 Oxymask O2 Flow Rate 08/25/23 16:22 08/25/23 16:07 5 08/25/23 12:01 9 08/25/23 08:45 08/25/23 08:45 9 08/25/23 07:50 08/25/23 07:21 7 (2) COPD (chronic obstructive pulmonary disease) COPD type: unspecified COPD Qualified Code(s): J44.9 - Chronic obstructive pulmonary disease, unspecified
[2023-08-25] MEDS ORDERED: FORMOTEROL 20 MCG/2 ML VIAL ONE (19:18)
[2023-08-25] MEDS ORDERED: SODIUM CHLOR 7% 4 ML NEB ONE (19:20)
[2023-08-25] MEDS: MELATONIN 3 MG TAB PO PRN (20:46)
[2023-08-26 06:01] LABS: Hematocrit (blood only) 36.9 % (37.0-47.0); Hemoglobin 12.2 g/dl (12.0-16.0); Mean Corpuscular Hemoglobin 32.5 pg (25.0-34.0); Mean Corpuscular Hgb Conc 33.1 g/dL (32.0-36.0); Mean Corpuscular Volume 98.4 fL (80.0-100.0); Mean Platelet Volume 10.5 fL (9.4-12.4); Platelet Count 175 K/uL (130-400); RDW Standard Deviation 46.6 fL (36.4-46.3); Red Blood Count 3.75 M/uL (4.20-5.40); White Blood Count 7.41 K/ul (4.8-10.8)
[2023-08-26 06:20] LABS: Calcium 9.5 mg/dl (8.6-10.3); Est GFR (African American) 121.5 ml/min; Est GFR (Non-African American) 104.9 ml/min; Magnesium 1.7 mg/dl (1.7-2.4); Phosphorus 3.6 mg/dl (2.5-4.9); Potassium 3.4 mmol/L (3.5-5.1)
[2023-08-26] MEDS ORDERED: FORMOTEROL 20 MCG/2 ML VIAL ONE (07:04)
[2023-08-26] MEDS ORDERED: SODIUM CHLOR 7% 4 ML NEB ONE (07:04)
[2023-08-26] MEDS: ALBUT/IPRATROP 3MG/0.5MG NEB 3 ML VIAL NEB SCH ×3 (07:32→15:45)
[2023-08-26] MEDS: BUDESONIDE 0.5 MG/2 ML VIAL (PULMICORT) NEB SCH ×2 (07:33→19:58)
[2023-08-26] MEDS: FORMOTEROL 20 MCG/2 ML VIAL NEB SCH ×2 (07:33→19:58)
[2023-08-26] MEDS: APIXABAN 5 MG TABLET PO SCH ×2 (08:21→20:08)
[2023-08-26] MEDS: amLODIPine BESYLATE 5 MG TAB PO SCH (08:21)
[2023-08-26] MEDS: METOPROLOL SUCC 25MG EXT REL TAB PO SCH ×2 (08:21→20:08)
[2023-08-26] MEDS: DULoxetine HCL 30 MG CAP PO SCH (08:22)
[2023-08-26] MEDS: FUROSEMIDE 40 MG TAB PO SCH (08:22)
[2023-08-26] MEDS: NICOTINE 14 MG/24 HR PATCH TD SCH (08:22)
[2023-08-26] MEDS: PANTOprazole 40 MG TAB PO SCH (08:23)
[2023-08-26] MEDS: predniSONE 20 MG TAB PO SCH ×2 (08:24→12:22)
[2023-08-26] MEDS: AMOXICILLIN/CLAVULANATE 875 MG TAB PO SCH ×2 (08:24→17:04)
[2023-08-26] MEDS: guaiFENesin 600 MG TABCR PO SCH ×3 (08:25→20:08)
[2023-08-26] MEDS: METHADONE ORAL SOLN 2 MG/ML PO SCH (08:36)
[2023-08-26] MEDS: PATIENT'S OWN CONTROLLED MED 1: Methadone PO SCH (09:12)
[2023-08-26] MEDS ORDERED: POTASSIUM CHLORIDE CRTAB 20 MEQ TABCR PO STA (09:22)
[2023-08-26] MEDS: ACETAMINOPHEN 325 MG TAB PO PRN ×2 (14:47→23:30)
[2023-08-26] MEDS ORDERED: ALBUT/IPRATROP 3MG/0.5MG NEB 3 ML VIAL NEB PRN (15:48)
--- NOTE | 2023-08-26 16:06 | Hospitalist Progress Note ---
Date of Service August 26, 2023 Assessment & Plan (1) Acute hypoxemic respiratory failure: (2) COPD (chronic obstructive pulmonary disease): (3) Pulmonary embolism: (4) On home oxygen therapy: (5) HTN (hypertension): (6) Methadone maintenance therapy patient: (7) GERD (gastroesophageal reflux disease): (8) Sepsis due to pneumonia: (9) Parainfluenza infection: (10) Tobacco use: (11) History of alcohol abuse: Plan 58-year-old female that presented to the ED from the methadone clinic where she was found to be hypoxic in the low 80s. Patient reports having a fever that started 2 days ago 100.3, reports productive cough with green/yellow sputum, decreased appetite and shortness of breath with exercise and going up stairs. Past medical history includes COPD, HTN, substance abuse on methadone maintenance, pulmonary hypertension, PFO status post shunt, depression, generalized OA pain, and GERD also do note patient has a history of PE (diagnosed August 2022; appears to be spontaneous and unprovoked; takes Eliquis chronically.). Patient does historically follow with pulmonary team for management of hypoxemic respiratory failure and pulmonary hypertension. There was consideration of her requiring a VQ scan in the outpatient setting for evaluation of chronic thromboembolic PE pulmonary hypertension. She is being managed for the following: Parainfluenza type IV Superimposed bacterial pneumonia Sepsis POA: Likely secondary to above, heart rate/respiratory rate/WBC elevated at presentation. Lactate WNL. Acute hypoxemic respiratory failure Patient presents with febrile illness/cough/greenish sputum. Admitting CXR with bilateral lower lung opacities suggestive of pneumonia. Patient started on cefepime and doxycycline 08/23, continue. Follow admitting blood and sputum culture. Currently requiring 5 L oxygen via oxygen mask. Wean down as tolerated. Continue with incentive spirometry and flutter valve. Other supportive treatment. Continue nebs. Pulmonology evaluated, appreciate recommendation. On Augmentin and prednisone now. DC on Trelegy. WBC trending down. Patient afebrile. Patient counseled to utilize respiratory nebulizer meds. Patient has been declining her meds. Hyponatremia: Likely secondary to poor appetite, improving. Hypokalemia: Likely secondary to poor appetite, improving. Pulmonary hypertension and history of PFO: Chronic, takes Lasix at home. Continue. Continue to follow-up with pulmonology as outpatient. Echo reviewed. COPD and tobacco use history: Chronic, uses 2 L nasal cannula oxygen. Continue nebs.Esha Alaniz, Perforomist. History of PE: Chronic, stable. Continue home Eliquis. 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 On methadone 100 mg daily. Patient denies any drug use. Urinary tox screen positive for marijuana, follow final. History of alcohol abuse: Chronic, reports drinking 2 beers every few days. IWONA S protocol. Depression: Chronic, continue home duloxetine. GERD: Chronic, continue home Protonix CODE STATUS: Full code VTE prophylaxis: Patient on Eliquis Admission and Anticipated Discharge Date Admission Date: August 23, 2023 Subjective Patient was seen and examined at bedside. Patient was lying in bed, on 5 L oxygen via oxygen mask. Resting comfortably. Reports feeling better today. Patient reports sputum color getting enrollment representative now. Reports chronic constipation. Denies chest pain. Patient has been declining respiratory medication, patient is still requiring 5 L oxygen, will try to wean down today and see if we can stabilize her on room air or possibly get two-step test tomorrow for discharge planning. Patient does not feel comfortable going home today due to her needing 5 L oxygen. Patient explained and educated in detail the need for respiratory medication, she has declined prednisone/Mucinex/nebulization/inhalations. Patient agreed to take all those medications at bedside discussion. Same has been communicated to RN. Physical Exam Physical Exam: GENERAL: Alert and oriented x3. NAD, on 5L O2 via NC. HEENT: No pallor, no icterus. Pupils equal, round and reactive to light. Oral mucosa moist. NECK: No JVD, no neck masses. HEART: S1 and S2 heard. Regular rate and rhythm. No murmur, no gallop. RESPIRATORY SYSTEM: Normal AP diameter. No accessory muscle use. b/l crackles and wheeze - improving ABDOMEN: Soft, bowel sounds present, nontender, no distention. CENTRAL NERVOUS SYSTEM: No facial droop. Speech is clear. Obeys simple commands. Moves extremities. EXTREMITIES: No edema, no erythema seen. Results & Data Results & Data Vital Signs (Past 12 Hours) Vital Signs Temp Pulse Pulse Resp BP BP Pulse Ox 08/26/23 15:44 36.6 C 70 18 128/78 90 08/26/23 15:36 64 08/26/23 11:35 36.5 C 66 18 131/74 91 08/26/23 10:00 08/26/23 08:25 08/26/23 07:55 36.7 C 71 18 138/79 95 08/26/23 07:20 64 08/26/23 04:55 94 08/26/23 04:06 36.8 C 68 18 124/72 95 Pulse Ox O2 Del Method O2 Del Method O2 Flow Rate O2 Flow Rate 08/26/23 15:44 Oxymask 5 08/26/23 15:36 08/26/23 11:35 Oxymask 5 08/26/23 10:00 95 Oxymask 5 08/26/23 08:25 Oxymask 5 08/26/23 07:55 Oxymask 5 08/26/23 07:20 08/26/23 04:55 Oxymask 5 08/26/23 04:06 Oxymask 6 (2) COPD (chronic obstructive pulmonary disease) COPD type: unspecified COPD Qualified Code(s): J44.9 - Chronic obstructive pulmonary disease, unspecified
[2023-08-26] MEDS: MELATONIN 3 MG TAB PO PRN (20:43)
[2023-08-26] MEDS ORDERED: MELATONIN 3 MG TAB PO PRN (23:13)
[2023-08-26] MEDS ORDERED: MELATONIN 3 MG TAB PO STA (23:14)
[2023-08-27 06:30] LABS: BUN Creatinine Ratio 22.6 (10-20); Calcium 9.7 mg/dl (8.6-10.3); Est GFR (Non-African American) 106.1 ml/min; Magnesium 1.7 mg/dl (1.7-2.4); Potassium 3.5 mmol/L (3.5-5.1)
[2023-08-27] MEDS: BUDESONIDE 0.5 MG/2 ML VIAL (PULMICORT) NEB SCH (08:00)
[2023-08-27] MEDS: FORMOTEROL 20 MCG/2 ML VIAL NEB SCH (08:00)
[2023-08-27] MEDS: METHADONE ORAL SOLN 2 MG/ML PO SCH (08:05)
[2023-08-27] MEDS: guaiFENesin 600 MG TABCR PO SCH (08:06)
[2023-08-27] MEDS: METOPROLOL SUCC 25MG EXT REL TAB PO SCH (08:06)
[2023-08-27] MEDS: APIXABAN 5 MG TABLET PO SCH (08:07)
[2023-08-27] MEDS: amLODIPine BESYLATE 5 MG TAB PO SCH (08:07)
[2023-08-27] MEDS: DULoxetine HCL 30 MG CAP PO SCH (08:07)
[2023-08-27] MEDS: predniSONE 20 MG TAB PO SCH (08:07)
[2023-08-27] MEDS: FUROSEMIDE 40 MG TAB PO SCH (08:08)
[2023-08-27] MEDS: PANTOprazole 40 MG TAB PO SCH (08:09)
[2023-08-27] MEDS: NICOTINE 14 MG/24 HR PATCH TD SCH (08:10)
[2023-08-27] MEDS: AMOXICILLIN/CLAVULANATE 875 MG TAB PO SCH (08:10)
[2023-08-27] MEDS: ONDANSETRON INJ 2 MG/ML 2 ML VIAL IV PRN (08:55)
[2023-08-27] MEDS: PATIENT'S OWN CONTROLLED MED 1: Methadone PO SCH (08:56)
--- NOTE | 2023-08-27 11:50 | Discharge Summary ---
Date of Service August 27, 2023 Admission HPI Per Admitting Provider Ms. Flores is a 58-year-old female that presented to the ED from the methadone clinic where she was found to be hypoxic in the low 80s. Patient reports having a fever that started 2 days ago 100.3, reports productive cough with green/yellow sputum, decreased appetite and shortness of breath with ambulation. Reports shortness of breath with exercise including stairs. No orthopnea. Chest x-ray reveals mild pulmonary edema with lower lung opacities favoring a superimposed pneumonia with small left pleural effusion. Past medical history includes COPD, HTN, substance abuse on methadone maintenance, pulmonary hypertension, PFO status post shunt, depression, generalized OA pain, and GERD also do note patient has a history of PE (diagnosed August 2022; appears to be spontaneous and unprovoked; takes Eliquis). Patient does historically follow with pulmonary team for management of hypoxemic respiratory failure and pulmonary hypertension. There was consideration of her requiring a VQ scan in the outpatient setting for evaluation of chronic thromboembolic PE pulmonary hypertension. She is currently taking Lasix as in a patient and reports being compliant with such. VBG indicates a compensated mixed respiratory acidosis. Lactate 1.2, troponin 15.9, BNP 133, procalcitonin 0.33, CRP 32.98, hyponatremia 130, mild hypokalemia 3.4. Biofire was sent and returned positive for Parainfluenza Type4. Patient hypoxic in the low 80s upon arrival and placed on oximask Patient recent PFTs 09/2022 FEV1 actually 1.92 in review of outpatient notes patient is on 2 L oxygen at home which is managed by pulmonary. She was to have a sleep study done as an outpatient but did not follow through with this. Patient denies dizziness, visual or auditory changes, chest pain, palpitations, abdominal pain or tenderness, urinary changes, bowel changes, recent falls or trauma. Suspect patient has signs of early sepsis with acute hypoxemia respiratory failure in the setting of a suspected pneumonia. Given the history of this individual being multifactorial from a pulmonary perspective with a history of PE, shunt physiology due to PFO and COPD; will re-involve pulmonary for their expertise and guidance with regards to further maintenance steroids and treatment plan. 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 Patient positive for para flu type IV and will continue supportive treatment. Will continue cefepime for now pending sputum and blood cultures; with suspicion of pneumonia. Replace potassium p.o. patient receptive to BiPAP if necessary. Confirmed patient is full code. Patient will be admitted for further evaluation and management. Please see A/P for further details. Admission Exam Per Admitting Provider Neuro: AAOx4, PERRLA, no aphagia, memory changes, CNII-XII grossly intact HEENT: head normocephalic, moist mucus membranes CV: S1/S2, (-) M/G/R, (-) edema, cap refill < 3 seconds Resp: Lungs CTA in all phillips. On RA GI: Abdomen S/NT/ND, Ax4 bowel sounds, (-) CVA tenderness Musculoskeletal: 5/5 B/L UE strength, 5/5 B/L LE strength. No gait disturbance Skin: (-) rashes , (-) erythema. Psych: euthymic mood Principal Diagnosis Parainfluenza type IV Likely superimposed bacterial pneumonia Acute hypoxemic respiratory failure Sepsis POA Discharge Exam GENERAL: Alert and oriented x3. NAD, on 3.5L O2 via NC. HEENT: No pallor, no icterus. Pupils equal, round and reactive to light. Oral mucosa moist. NECK: No JVD, no neck masses. HEART: S1 and S2 heard. Regular rate and rhythm. No murmur, no gallop. RESPIRATORY SYSTEM: Normal AP diameter. No accessory muscle use. b/l crackles - improving, wheeze very occasional ABDOMEN: Soft, bowel sounds present, nontender, no distention. CENTRAL NERVOUS SYSTEM: No facial droop. Speech is clear. Obeys simple commands. Moves extremities. EXTREMITIES: No edema, no erythema seen. Discharge Data Allergies Allergy/AdvReac Type Severity Reaction Status Date / Time olive oil AdvReac Unknown reacts Verified 06/25/23 12:11 with methadone Consultations 08/23/23 10:27 ED Decision to Admit Stat 08/23/23 11:42 Consult Pulmonology Routine Hospital Course (1) Acute hypoxemic respiratory failure: (2) COPD (chronic obstructive pulmonary disease): (3) Pulmonary embolism: (4) On home oxygen therapy: (5) HTN (hypertension): (6) Methadone maintenance therapy patient: (7) GERD (gastroesophageal reflux disease): (8) Sepsis due to pneumonia: (9) Parainfluenza infection: (10) Tobacco use: (11) History of alcohol abuse: Plan 58-year-old female that presented to the ED from the methadone clinic where she was found to be hypoxic in the low 80s. Patient reports having a fever that started 2 days ago 100.3, reports productive cough with green/yellow sputum, decreased appetite and shortness of breath with exercise and going up stairs. Past medical history includes COPD, HTN, substance abuse on methadone maintenance, pulmonary hypertension, PFO status post shunt, depression, gen eralized OA pain, and GERD also do note patient has a history of PE (diagnosed August 2022; appears to be spontaneous and unprovoked; takes Eliquis chronically.). Patient does historically follow with pulmonary team for management of hypoxemic respiratory failure and pulmonary hypertension. There was consideration of her requiring a VQ scan in the outpatient setting for evaluation of chronic thromboembolic PE pulmonary hypertension. She was managed for the following: Parainfluenza type IV Superimposed bacterial pneumonia Sepsis POA: Likely secondary to above, heart rate/respiratory rate/WBC elevated at presentation. Lactate WNL. Acute hypoxemic respiratory failure Patient presents with febrile illness/cough/greenish sputum. Admitting CXR with bilateral lower lung opacities suggestive of pneumonia. Patient started on cefepime and doxycycline 08/23, continue. Follow admitting blood and sputum culture. No pathologic growth so far. Patient has been maintained on budesonide and Perforomist nebs. Patient has initially declined but then agreed to take her respiratory med ication. Patient reports improvement in her cough significantly, reports feeling better. Patient is hemodynamically stable and would like to go home. Patient will continue on the steroid and antibiotic to complete the course. Patient has been made aware that she will be discharged on Trelegy inhaler which she is encouraged to maintain compliance with. Patient is made aware that she will benefit from low-dose CT chest cancer screening and pulmonary function test as an outpatient, patient to coordinate with her PCP office upon discharge. Hyponatremia: Likely secondary to poor appetite, improving. Hypokalemia: Likely secondary to poor appetite, improving. Pulmonary hypertension and history of PFO: Chronic, takes Lasix at home. Continue. Continue to follow-up with pulmonology as outpatient. Echo reviewed. COPD and tobacco use history: Chronic, uses 2 L nasal cannula oxygen. Continue nebs.DuoNedinesh, Pulmicort, Perforomist. History of PE: Chronic, stable. Continue home Eliquis. 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 On methadone 100 mg daily. Patient denies any drug use. Urinary tox screen positive for marijuana, follow final. History of alcohol abuse: Chronic, reports drinking 2 beers every few days. IWONA S protocol. Depression: Chronic, continue home duloxetine. GERD: Chronic, continue home Protonix CODE STATUS: Full code VTE prophylaxis: Patient on Eliquis Patient is being discharged home with following instruction at the point of discharge: Follow-up with your primary care physician within a week time and likely you will need labs CBC/CMP/magnesium/phosphorus. You will be discharged on antibiotics and prednisone to complete the course of treatment for your respiratory illness. Please complete the course as prescribed. You will be started on a new inhaler Trelegy, maintain compliance with the medication. You will benefit from getting low-dose CT chest lung cancer screening and pulmonary function test. Coordinate with your PCP office to set up the test. You will benefit by establishing with pulmonology as an outpatient, coordinate with your PCP to set up the referral. Take your medications as prescribed. Please make sure that you are able to get your medications today by calling your pharmacy before you leave the hospital so that your treatment continuity is not broken. Home Health Attestation I certify that this patient is under my care and that I, or a physicians entry level administrative assistant working with me, had a face to-face encounter that meets the home health [id number] encounter requirements with this patient. The encounter with the patient was in whole, or in part, for the following medical condition, which is the primary reason for home health care (list medical condition): I certify that, based on my findings, the following services are medically necessary home health services: My clinical findings support the need for the above services because: Further, I certify that my clinical findings support that this patient is homebound (i.e. absences from home require considerable and taxing effort and are for medical reasons or rastafarian services or infrequently or of short duration when for other reasons) because: Certification for Home Health Services: Based on the above findings, I certify that this patient is confined to the home and needs intermittent mcc care, physical therapy and/or speech therapy or continues to need occupational therapy. The patient is under my care, and I have initiated the establishment of the plan of care. This patient will be followed by a physician who will periodically review the plan of care. Total Time Total Time Spent Total Time Spent (In Minutes): 45 Discharge Plan Discharge Items Patient Disposition: Home - Self-Care Reason For Visit: SOB/HYPOXIA Discharge Diagnosis: Parainfluenza type IV Likely superimposed bacterial pneumonia Acute hypoxemic respiratory failure Sepsis POA Activity: Resume your previous activity Non-emergency contact: Primary Care Provider Call non-emergency contact if: you have any medication questions, your symptoms worsen and your temperature is above 101.5 Follow-up/Referrals: Joe Lockwood DO [Primary Care Provider] - Diet: Regular Addtl Attending Provider Instructions: Follow-up with your primary care physician within a week time and likely you will need labs CBC/CMP/magnesium/phosphorus. You will be discharged on antibiotics and prednisone to complete the course of t reatment for your respiratory illness. Please complete the course as prescribed. You will be started on a new inhaler Trelegy, maintain compliance with the medication. You will benefit from getting low-dose CT chest lung cancer screening and pulmonary function test. Coordinate with your PCP office to set up the test. You will benefit by establishing with pulmonology as an outpatient, coordinate with your PCP to set up the referral. Take your medications as prescribed. Please make sure that you are able to get your medications today by calling your pharmacy before you leave the hospital so that your treatment continuity is not broken. Pending Studies at Discharge: Yes Stand-Alone Forms: My [facility] [employer], Smoking Cessation Medications and DC Order Prescriptions: New amoxicillin-pot clavulanate 875-125 mg Tablet 1 tab PO BIDM 5 Days Qty: 10 0RF Probiotic 3 billion cell capsule 3,000 mmu cells PO DAILY 14 Days Qty: 14 0RF Rx Instructions: administer with a meal prednisone 20 mg Tablet 40 mg PO UD Qty: 9 0RF Rx Instructions: 2 tabs daily for 3 days, then 1 tab daily for 3 days, then stop. benzonatate 100 mg Capsule 100 mg PO TID PRN (Reason: cough) 5 Days Qty: 15 0RF guaifenesin [Mucinex] 600 mg Tablet Extended Release 12hr 1,200 mg PO Q12 5 Days Qty: 20 0RF Trelegy Ellipta 100-62.5-25 mcg blister with device 1 inh inhalation DAILY Qty: 28 0RF Continued amlodipine 10 mg tablet 10 mg PO QAM duloxetine 30 mg capsule,delayed release(DR/EC) 30 mg PO QAM albuterol sulfate 90 mcg/actuation HFA aerosol inhaler 2 puff INHALATION Q6H PRN (Reason: Cough) ferrous gluconate 324 mg (38 mg iron) Tablet 324 mg PO QAM Qty: 30 0RF furosemide 40 mg Tablet 40 mg PO QAM Qty: 30 0RF Eliquis 5 mg tablet 5 mg PO BID Qty: 63 0RF methadone 10 mg/5 mL Solution 100 mg PO QAM Rx Instructions: Verified lis/ Marc @ [facility] @ [phone]. Pt was in clinic on 08/23/23 but clinic did NOT give pt their morning dose. nicotine 7 mg/24 hr Patch 24 Hour 0 patch TRANSDERMAL DAILY Rx Instructions: Unable to verify OTC medications with patient/family at this date/time. cyanocobalamin (vitamin B-12) [Vitamin B-12] 100 mcg tablet 0 mcg PO 3XWK Rx Instructions: Unable to verify OTC medications with patient/family at this date/time. potassium chloride [K-Tab] 10 mEq tablet extended release 10 meq PO QAM Rx Instructions: take one tablet daily with lasix. pantoprazole 40 mg tablet,delayed release (DR/EC) 40 mg PO QAM polyethylene glycol 3350 [Miralax] 17 gram powder in packet 0 g PO DAILY PRN (Reason: laxative effect) Rx Instructions: Unable to verify OTC medications with patient/family at this date/time. melatonin 3 mg tablet 0 mg PO HS PRN (Reason: sleep) Rx Instructions: Unable to verify OTC medications with patient/family at this date/time. metoprolol succinate 25 mg tablet extended release 24 hr 12.5 mg PO BID Rx Instructions: She takes 12.5 tablet PO BID bisacodyl 5 mg tablet 0 mg PO HS PRN (Reason: Constipation) Rx Instructions: Unable to verify OTC medications with patient/family at this date/time. Discharge Orders: Discharge Order (Routine); Ordered 08/27/23 Ordered By: Vivian Meraz Admission Data Admit Date/Time: 08/23/23 10:39 Attending Provider: Vivian Meraz Admit Provider: Luz Marina Mercado Primary Care Provider: Joe Lockwood Other Providers: Luz Marina Mercado; Xena Carey
[2023-08-28 00:18] LABS: Marijuana Quant, GCMS Urine 446 ng/mL (<5); Methadone, Ur Metabolite >10000 ng/mL (<100); Methadone, Ur Verification >10000 ng/mL (<100)
== END 2023-08-27 14:56 | disposition home or self-care (01) | DRG 871 ==
LOC: ED 08:31 → EDINP 10:39 → SUATTDRO 10:39 → 2W 11:45
DX: Z99.81 Dependence on supplemental oxygen; I27.82 Chronic pulmonary embolism; J96.21 Acute and chronic respiratory failure with hypoxia; Z79.01 Long term (current) use of anticoagulants; E87.29 Other acidosis; E87.6 Hypokalemia; F32.A Depression, unspecified; I10 Essential (primary) hypertension; G89.29 Other chronic pain; J21.8 Acute bronchiolitis due to other specified organisms; G47.33 Obstructive sleep apnea (adult) (pediatric); K21.9 Gastro-esophageal reflux disease without esophagitis; J15.9 Unspecified bacterial pneumonia; F11.20 Opioid dependence, uncomplicated; J96.22 Acute and chronic respiratory failure with hypercapnia; J98.11 Atelectasis; I24.89 Other forms of acute ischemic heart disease; A41.89 Other specified sepsis; E87.1 Hypo-osmolality and hyponatremia; F19.10 Other psychoactive substance abuse, uncomplicated; I27.20 Pulmonary hypertension, unspecified; F10.20 Alcohol dependence, uncomplicated; Z96.641 Presence of right artificial hip joint; J44.0 Chronic obstructive pulmonary disease with (acute) lower respiratory infection

== ENCOUNTER 2023-11-20 10:15 | Inpatient (IN) ==
[2023-11-20 11:18] LABS: Appearance Urine Clear (Clear); Bilirubin Urine Negative (Negative); Blood Urine Negative (Negative); Color Urine Yellow; Glucose Urine UA Negative (Negative); Ketones Urine Negative (Negative); Leukocyte Esterase Urine Negative (Negative); Nitrite Urine Negative (Negative); Protein Urine Negative (Negative); Specific Gravity Urine 1.004 (1.000-1.030); Urobilinogen Urine Negative (Negative); pH Urine 7.5 (4.5-7.5)
--- NOTE | 2023-11-20 11:48 | Emergency Department Note ---
Impression & Plan Bradycardia, Frequent PVCs, Hypokalemia, Hypomagnesemia, Edema, peripheral ED Provider Note NAME: CYNTHIA SIMON AGE: 58 SEX: F : 1965 ARRIVES VIA: Walk-In INFORMANT: Patient, ED PROVIDER(S): Jamar Sutherland DO CHIEF COMPLAINT: Chest pain HPI: The patient is a 58-year-old female who presented to the emergency department with multiple complaints. The patient started noticing chest discomfort and chest heaviness yesterday. She also started noticing some shortness of breath. She denies having any productive cough or hemoptysis. She has noticed some swelling in her lower extremities. The patient has a history of venous thromboembolic disease and was unsure if she had a clot in her legs. The patient was not seen by her family doctor for the symptoms. The patient denies having any recent trauma. She did drink some alcohol last evening. ROS: See above HPI for pertinent positives & negatives. A total of 10 systems reviewed and were otherwise negative. PAST MEDICAL HISTORY: See Below PAST SURGICAL HISTORY: See Below FAMILY HISTORY: See Below SOCIAL HISTORY: See Below HOME MEDICATIONS: See Below ALLERGIES: See Below VITALS: See Below PHYSICAL EXAMINATION: GENERAL: Patient is awake alert in no acute distress patient is resting comfortably and showing no signs of anxiety EYES: The conjunctivae are clear. The pupils are round and reactive. EARS, NOSE, MOUTH AND THROAT: The nose is without any evidence of any deformity. NECK: The neck is nontender and supple. RESPIRATORY: Diminished breath sounds with scattered rhonchi were noted throughout. CARDIOVASCULAR: Regular rate and rhythm noted there no murmurs rubs or gallops normal S1 normal S2. GASTROINTESTINAL: The abdomen is soft. Abdomen is nontender. MUSCULOSKELETAL/EXTREMITIES: There is no evidence of gross deformity full range of motion is noted in the hips and shoulders. SKIN: There is no obvious evidence of any rash. There are no petechiae, pallor or cyanosis noted. NEUROLOGIC: Patient is awake alert and oriented x3 MEDICAL DECISION MAKING: The patient is a 58-year-old female who presented to the emergency department for weakness chest pain and lower extremity edema. The patient does have a history of alcohol use. I discussed patient's laboratory and radiographic studies with her. She was treated with IV fluids in the emergency department. She was also treated with IV magnesium and potassium replacement as well as oral potassium replacement. The patient appeared to have episodes of bradycardia with frequent PVCs. I do feel this may explain the patient's current symptoms. I discussed her condition with the on-call [facility] hospitalist. They have agreed to evaluate the patient in the emergency department for further management and disposition. Triage Nursing notes reviewed. Prior medical records reviewed Vital Signs: reviewed and remarkable for bradycardia Differential diagnosis: Reactive airway disease, pneumonia, pneumothorax, COPD, CHF, infections, cardiac ischemia, pulmonary embolism, musculoskeletal, gastrointestinal, as well as other pathologies. ER treatment provided: See below Diagnostics interpreted by me: ECG: EKG was obtained in the emergency department. My interpretation is sinus rhythm at 74 bpm. There was a short OK noted. There was nonspecific ST segment depressions noted. Frequent PVCs were also noted. This was compared to a tracing from August 23, 2023. Bradycardic underlying rhythm was new otherwise no specific changes were noted. Cardiac Monitoring: An order was placed for continuous cardiac monitoring. The monitor shows a rate of 58 bpm with sinus bradycardia and frequent PVCs. Laboratory studies: As stated above and show below. Imaging studies: See below. Radiographic imaging was reviewed by myself Consultation(s): I discussed this case with Dr. Vargas who is on-call for the [facility]. Past Med/Surg History Medical History History of alcohol abuse Tobacco use Sepsis due to pneumonia Methadone maintenance therapy patient GERD (gastroesophageal reflux disease) HTN (hypertension) History of endocarditis --- r/t IV drug use. S/P transesophageal echocardiogram ([facility]) Lung nodule Constipation Anxiety Aspiration pneumonia 08/2022 from vomitting -- reports she "passed out and vomitted while she was incoherent" On home oxygen therapy 2 - 2.5 lpm via n/c daily Pulmonary embolism dx 08/2022 - unknown the cause. treated with anticoagulants. Thrombocytopenia Hepatitis C test positive pt denies. 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 Beliefs That Will Affect Care: None Current Living Situation: Alone Feels Safe at Home: Yes Assistive Devices: Oxygen - Continuous and Stair Lift Allergies Allergies Allergy/AdvReac Type Severity Reaction Status Date / Time fluticasone furoate AdvReac Intermediate INTENSE Verified 11/20/23 16:22 [From Trelegy Ellipta] HEADACHES umeclidinium AdvReac Intermediate INTENSE Verified 11/20/23 16:22 [From Trelegy Ellipta] HEADACHES vilanterol AdvReac Intermediate INTENSE Verified 11/20/23 16:22 [From Trelegy Ellipta] HEADACHES olive oil AdvReac Unknown reacts Verified 11/20/23 16:22 with methadone Home Meds Home Medications Medication Instructions Recorded Confirmed amlodipine 10 mg tablet 10 mg PO QAM 05/16/22 11/20/23 duloxetine 30 mg capsule,delayed 30 mg PO QAM 05/16/22 11/20/23 release albuterol sulfate 90 mcg/actuation 2 puff inhalation Q6H PRN Cough 09/12/22 11/20/23 aerosol inhaler methadone 10 mg/5 mL oral solution 100 mg PO QAM 06/25/23 11/20/23 nicotine 7 mg/24 hr daily 1 patch transdermal DAILY 06/25/23 11/20/23 transdermal patch pantoprazole 40 mg tablet,delayed 40 mg PO QAM 06/25/23 11/20/23 release bisacodyl 5 mg tablet 5 - 10 mg PO HS PRN Constipation 08/23/23 11/20/23 melatonin 3 mg tablet 3 - 6 mg PO HS PRN sleep 08/23/23 11/20/23 metoprolol succinate 25 mg 12.5 mg PO BID 08/23/23 11/20/23 tablet,extended release 24 hr polyethylene glycol 3350 17 gram 17 g PO DAILY PRN Constipation 08/23/23 11/20/23 oral powder packet (Miralax) cyanocobalamin (vitamin B-12) 1,000 mcg PO 3XWK 11/20/23 11/20/23 1,000 mcg tablet (Vitamin B-12) Previous Rx's Medication Instructions Recorded apixaban 5 mg tablet (Eliquis) 5 mg PO BID #63 tabs 09/21/22 ferrous gluconate 324 mg (38 mg 324 mg PO QAM #30 tabs 09/21/22 iron) tablet furosemide 40 mg tablet 40 mg PO QAM #30 tabs 09/21/22 Results & Data (ED) Vital Signs Vital Signs - 24 hr 11/20/23 10:41 11/20/23 11:28 11/20/23 11:30 Temperature 36.3 C L Temperature Source Temporal Artery Scan Pulse Rate 66 62 Pulse Rate from SpO2 Sensor Respiratory Rate 19 20 Blood Pressure 159/71 H Blood Pressure Mean 100 Pulse Oximetry 91 85 L Oxygen Delivery Method Nasal Cannula Room Air Oxygen Flow Rate 3 Sepsis Recent Fever Within 48 Hours No Sepsis New/Unexplained Change in Mental Status N/A Sepsis Action Taken by Nursing No Action Required Oxygen Flow Rate - Titration 4 Pulse Oximetry Post Tiitration 95 11/20/23 11:30 11/20/23 11:36 11/20/23 11:44 Temperature Temperature Source Pulse Rate 64 62 63 Pulse Rate from SpO2 Sensor 64 Respiratory Rate 15 16 Blood Pressure Blood Pressure Mean Pulse Oximetry 94 Oxygen Delivery Method Oxygen Flow Rate Sepsis Recent Fever Within 48 Hours Sepsis New/Unexplained Change in Mental Status Sepsis Action Taken by Nursing Oxygen Flow Rate - Titration Pulse Oximetry Post Tiitration 11/20/23 11:44 11/20/23 12:00 11/20/23 12:30 Temperature Temperature Source Pulse Rate 65 60 Pulse Rate from SpO2 Sensor Respiratory Rate 18 16 Blood Pressure 135/81 Blood Pressure Mean 111 Pulse Oximetry Oxygen Delivery Method Oxygen Flow Rate Sepsis Recent Fever Within 48 Hours Sepsis New/Unexplained Change in Mental Status Sepsis Action Taken by Nursing Oxygen Flow Rate - Titration Pulse Oximetry Post Tiitration 11/20/23 12:43 11/20/23 12:43 11/20/23 12:56 Temperature Temperature Source Pulse Rate 61 Pulse Rate from SpO2 Sensor 66 Respiratory Rate 15 Blood Pressure 140/74 133/70 Blood Pressure Mean 88 101 Pulse Oximetry 95 Oxygen Delivery Method Oxygen Flow Rate Sepsis Recent Fever Within 48 Hours Sepsis New/Unexplained Change in Mental Status Sepsis Action Taken by Nursing Oxygen Flow Rate - Titration Pulse Oximetry Post Tiitration 11/20/23 12:56 11/20/23 13:00 11/20/23 13:00 Temperature Temperature Source Pulse Rate 68 58 L Pulse Rate from SpO2 Sensor 43 L 58 L Respiratory Rate 22 18 Blood Pressure 122/57 L Blood Pressure Mean 74 Pulse Oximetry 95 95 Oxygen Delivery Method Oxygen Flow Rate Sepsis Recent Fever Within 48 Hours Sepsis New/Unexplained Change in Mental Status Sepsis Action Taken by Nursing Oxygen Flow Rate - Titration Pulse Oximetry Post Tiitration 11/20/23 13:10 11/20/23 13:10 11/20/23 13:20 Temperature Temperature Source Pulse Rate 60 58 L Pulse Rate from SpO2 Sensor 61 58 L Respiratory Rate 16 22 Blood Pressure 140/68 Blood Pressure Mean 97 Pulse Oximetry 96 95 Oxygen Delivery Method Oxygen Flow Rate Sepsis Recent Fever Within 48 Hours Sepsis New/Unexplained Change in Mental Status Sepsis Action Taken by Nursing Oxygen Flow Rate - Titration Pulse Oximetry Post Tiitration 11/20/23 13:20 11/20/23 15:45 11/20/23 16:00 Temperature Temperature Source Pulse Rate 62 59 L Pulse Rate from SpO2 Sensor 59 L Respiratory Rate 14 20 Blood Pressure 116/72 109/75 113/77 Blood Pressure Mean 96 86 89 Pulse Oximetry 93 92 Oxygen Delivery Method Room Air Oxygen Flow Rate Sepsis Recent Fever Within 48 Hours Sepsis New/Unexplained Change in Mental Status Sepsis Action Taken by Nursing Oxygen Flow Rate - Titration Pulse Oximetry Post Tiitration 11/20/23 16:30 Temperature Temperature Source Pulse Rate 58 L Pulse Rate from SpO2 Sensor 57 L Respiratory Rate 15 Blood Pressure 117/73 Blood Pressure Mean 87 Pulse Oximetry 94 Oxygen Delivery Method Oxygen Flow Rate Sepsis Recent Fever Within 48 Hours Sepsis New/Unexplained Change in Mental Status Sepsis Action Taken by Nursing Oxygen Flow Rate - Titration Pulse Oximetry Post Tiitration Home Medications Current Medication List: was personally reviewed by az Laboratory Data Attestation: I reviewed the patient's lab results. 11/20/23 12:30 11/20/23 12:30 Lab Results 11/20/23 11/20/23 11/20/23 Range/Units 11:42 12:30 Unknown WBC 11.38 H (4.8-10.8) K/ul RBC 4.25 (4.20-5.40) M/uL Hgb 13.3 (12.0-16.0) g/dl Hct 40.2 (37.0-47.0) % MCV 94.6 (80.0-100.0) fL MCH 31.3 (25.0-34.0) pg MCHC 33.1 (32.0-36.0) g/dL RDW Std Deviation 42.7 (36.4-46.3) fL RDW Coeff of Cee 12.4 (11.5-14.5) % Plt Count 131 (130-400) K/uL MPV 10.5 (9.4-12.4) fL Immature Gran % (Auto) 0.8 % Neut % (Auto) 82.5 % Lymph % (Auto) 11.3 % [place] % (Auto) 4.7 % Eos % (Auto) 0.4 % Baso % (Auto) 0.3 % Neut # (Auto) 9.38 H (1.40-6.50) K/uL Lymph # (Auto) 1.29 (1.20-3.40) K/uL [place] # (Auto) 0.54 (0.11-0.59) K/uL Eos # (Auto) 0.05 (0.00-0.50) K/uL Baso # (Auto) 0.03 (0.00-0.20) K/uL Immature Gran # (Auto) 0.09 (0.01-0.20) K/uL PT 11.2 (9.0-12.0) Seconds INR 1.0 (0.9-1.1) APTT 31 (21-31) Seconds PTT Ratio 1.1 Sodium 139 (136-145) mmol/L Potassium 2.9 L (3.5-5.1) mmol/L Chloride 95 L (98-107) mmol/L Carbon Dioxide 36 H (21-32) mmol/L Anion Gap 8 (3-11) BUN 8 (6-23) mg/dl Creatinine 0.88 (0.6-1.2) mg/dl Est Cr Clr Drug Dosing 89.0 ml/min Est GFR ( Amer) 85.1 ml/min Est GFR (Non-Af Amer) 73.4 ml/min BUN/Creatinine Ratio 9.1 L (10-20) Glucose 110 H (70-99(Fasting)) mg/dl Calcium 9.2 (8.6-10.3) mg/dl Magnesium 1.5 L (1.7-2.4) mg/dl Total Bilirubin 0.4 (0.2-1.0) mg/dl AST 43 H (13-39) U/L ALT 58 H (7-52) U/L Alkaline Phosphatase 127 H (34-104) U/L Troponin I High Sens 6.8 (0-14) pg/ml Total Protein 7.5 (6.0-8.3) gm/dl Albumin 4.0 (3.4-5.0) gm/dl Globulin 3.5 (2.5-4.0) gm/dl Albumin/Globulin Ratio 1.1 (0.9-2) Urine Color Yellow Urine Appearance Clear (Clear) Urine pH 7.5 (4.5-7.5) Ur Specific [place] 1.004 (1.000-1.030) Urine Protein Negative (Negative) Urine Glucose (UA) Negative (Negative) Urine Ketones Negative (Negative) Urine Blood Negative (Negative) Urine Nitrite Negative (Negative) Urine Bilirubin Negative (Negative) Urine Urobilinogen Negative (Negative) Ur Leukocyte Esterase Negative (Negative) Ethyl Alcohol mg/dL < 10.0 (<10.0) mg/dl Adenovirus (PCR) Not Detected (NotDetected) B. pertussis DNA (PCR) Not Detected (NotDetected) B.parapertussis DNA PCR Not Detected (NotDetected) C. pneumoniae DNA (PCR) Not Detected (NotDetected) Coronavirus OC43 (PCR) Not Detected (NotDetected) Coronavirus HKU1 (PCR) Not Detected (NotDetected) Coronavirus 229E (PCR) Not Detected (NotDetected) SARS-CoV-2 (PCR) Not Detected (NotDetected) Coronavirus NL63 (PCR) Not Detected (NotDetected) Human Metapneumovir PCR Not Detected (NotDetected) Influenza Type A (PCR) Not Detected (NotDetected) Influenza Type B (PCR) Not Detected (NotDetected) M. pneumoniae (PCR) Not Detected (NotDetected) Parainfluenza 1 (PCR) Not Detected (NotDetected) Parainfluenza 2 (PCR) Not Detected (NotDetected) Parainfluenza 3 (PCR) Not Detected (NotDetected) Parainfluenza 4 (PCR) Not Detected (NotDetected) RSV (PCR) Not Detected (NotDetected) Entero/Rhino (PCR) Not Detected (NotDetected) Administered Medications Magnesium Sulfate/Dextrose (Magnesium Sulfate / D5w) 1 gm in 100 mls @ 100 mls/hr IV Q1H DAVID Stop: 11/20/23 19:28 Last Admin: 11/20/23 17:33 Dose: 100 mls/hr Documented By: MAG Discontinued Medications Aspirin (Aspirin Chew 324 Mg) 324 mg PO NOW STA Stop: 11/20/23 11:47 Last Admin: 11/20/23 11:49 Dose: 324 mg Documented By: HS Potassium Chloride (K Stewart / Wtr) 10 meq in 100 mls @ 100 mls/hr IV Q1H DAVID Stop: 11/20/23 16:44 Last Admin: 11/20/23 16:52 Dose: 100 mls/hr Documented By: Infusion: 11/20/23 15:51 Dose: Infused Documented By: [facility] Admin: 11/20/23 14:51 Dose: 100 mls/hr Documented By: HS Lorazepam (Lorazepam 1 Mg/1 Ml Syr Ed Inj Use) 1 mg IV ONE STA Stop: 11/20/23 14:44 Last Admin: 11/20/23 14:52 Dose: 1 mg Documented By: HS Potassium Chloride (Potassium Chloride 20 Meq/15 Ml Udc) 20 meq PO NOW STA Stop: 11/20/23 14:37 Last Admin: 11/20/23 14:51 Dose: 20 meq Documented By: HS Imaging Data Attestation: I personally reviewed and interpreted this imaging study as follows: My Impression: 1 view chest x-ray was obtained in the emergency department. My interpretation is no free air or definite infiltrate, final report below. Radiologist's Impression: Chest X-Ray 11/20/23 10:46 XR chest 1V portable HISTORY: Chest pain, nonspecific COMPARISON: Chest 08/23/2023. FINDINGS: No pneumothorax. No pleural effusions. The cardiac silhouette is normal in size. There are calcifications within the aortic knob. Diffuse interstitial thickening has improved/resolved compared to the prior study. Left basilar linear scarlike densities and left basilar pleural thickening/scarring remains unchanged. No new focal lung consolidations to suggest a pneumonia. No evidence for pulmonary edema. No acute fractures. IMPRESSION: 1. No acute process within the chest. 2. Stable left basilar scarring. ACT 112: Negative or not required by law. Electronically signed by: John Bowers M.D. 11/20/2023 1:47 PM Venous Doppler Study 11/20/23 11:45 BILATERAL LOWER EXTREMITY VENOUS DOPPLER HISTORY: Acute pain and swelling of the lower legs swelling COMPARISON STUDY: 09/13/2022 FINDINGS: There is normal compressibility, flow, and augmentation within the bilateral lower extremity deep venous systems. IMPRESSION: No DVT within the right or left lower extremity. ACT 112: Negative or not required by law. Electronically signed by: Raman Le M.D. 11/20/2023 3:48 PM Discharge Plan Visit Data Chief Complaint: Respiratory Problems Stated Complaint: LOW PULSE,LEG PAIN,CHEST PAIN,TROUBLE BREATHING ED Provider: Jamar Sutherland Discharge Problem: Bradycardia, Frequent PVCs, Hypokalemia, Hypomagnesemia, Edema, peripheral Patient Disposition: Being Evaluated by Hospitalist Forms Stand Alone Forms: [facility] Prescriptions Prescriptions: No Action amlodipine 10 mg tablet 10 mg PO QAM duloxetine 30 mg capsule,delayed release(DR/EC) 30 mg PO QAM albuterol sulfate 90 mcg/actuation HFA aerosol inhaler 2 puff INHALATION Q6H PRN (Reason: Cough) ferrous gluconate 324 mg (38 mg iron) Tablet 324 mg PO QAM Qty: 30 0RF furosemide 40 mg Tablet 40 mg PO QAM Qty: 30 0RF Eliquis 5 mg tablet 5 mg PO BID Qty: 63 0RF methadone 10 mg/5 mL Solution 100 mg PO QAM Rx Instructions: IF NEED TO VERIFY--Marc @ [facility] @ [phone]. nicotine 7 mg/24 hr Patch 24 Hour 1 patch TRANSDERMAL DAILY pantoprazole 40 mg tablet,delayed release (DR/EC) 40 mg PO QAM polyethylene glycol 3350 [Miralax] 17 gram powder in packet 17 g PO DAILY PRN (Reason: Constipation) melatonin 3 mg tablet 3 - 6 mg PO HS PRN (Reason: sleep) metoprolol succinate 25 mg tablet extended release 24 hr 12.5 mg PO BID bisacodyl 5 mg tablet 5 - 10 mg PO HS PRN (Reason: Constipation) cyanocobalamin (vitamin B-12) [Vitamin B-12] 1,000 mcg Tablet 1,000 mcg PO 3XWK Rx Instructions: MON, WED, FRI Referrals Referrals: Joe Lockwood DO [Outside Practitioners] -
[2023-11-20] MEDS: ASPIRIN CHEW 324 MG PO STA (11:49)
[2023-11-20 12:48] LABS: Basophils # (auto) 0.03 K/uL (0.00-0.20); Basophils % (auto) 0.3 %; Eosinophils # (auto) 0.05 K/uL (0.00-0.50); Eosinophils % (auto) 0.4 %; Hematocrit (blood only) 40.2 % (37.0-47.0); Hemoglobin 13.3 g/dl (12.0-16.0); Immature Granulocytes # (auto) 0.09 K/uL (0.01-0.20); Immature Granulocytes % (auto) 0.8 %; Lymphocytes # (auto) 1.29 K/uL (1.20-3.40); Lymphocytes % (auto) 11.3 %; Mean Corpuscular Hemoglobin 31.3 pg (25.0-34.0); Mean Corpuscular Hgb Conc 33.1 g/dL (32.0-36.0); Mean Corpuscular Volume 94.6 fL (80.0-100.0); Mean Platelet Volume 10.5 fL (9.4-12.4); Monocytes # (auto) 0.54 K/uL (0.11-0.59); Monocytes % (auto) 4.7 %; Neutrophils # (auto) 9.38 K/uL (1.40-6.50); Neutrophils % (auto) 82.5 %; Platelet Count 131 K/uL (130-400); RDW Coefficient of Variation 12.4 % (11.5-14.5); RDW Standard Deviation 42.7 fL (36.4-46.3); Red Blood Count 4.25 M/uL (4.20-5.40); White Blood Count 11.38 K/ul (4.8-10.8)
[2023-11-20 12:51] LABS: Adenovirus PCR Not Detected (NotDetected); Bordetella parapertussis PCR Not Detected (NotDetected); Bordetella pertussis PCR Not Detected (NotDetected); Chlamydia pneumoniae PCR Not Detected (NotDetected); Coronavirus 229E PCR Not Detected (NotDetected); Coronavirus CoV-2 (COVID19)PCR Not Detected (NotDetected); Coronavirus HKU1 PCR Not Detected (NotDetected); Coronavirus NL63 PCR Not Detected (NotDetected); Coronavirus OC43PCR Not Detected (NotDetected); Human Metapneumovirus PCR Not Detected (NotDetected); Influenza A PCR Not Detected (NotDetected); Influenza B PCR Not Detected (NotDetected); Mycoplasma pneumoniae PCR Not Detected (NotDetected); Parainfluenza Virus 1 PCR Not Detected (NotDetected); Parainfluenza Virus 2 PCR Not Detected (NotDetected); Parainfluenza Virus 3 PCR Not Detected (NotDetected); Parainfluenza Virus 4 PCR Not Detected (NotDetected); Respiratory Syncytial VirusPCR Not Detected (NotDetected); Rhinovirus/Enterovirus PCR Not Detected (NotDetected)
[2023-11-20 13:11] LABS: Partial Thromboplastin Ratio 1.1; Partial Thromboplastin Time 31 Seconds (21-31); Prothrombin Time 11.2 Seconds (9.0-12.0)
[2023-11-20 13:30] LABS: Bilirubin,Total 0.4 mg/dl (0.2-1.0); Calcium 9.2 mg/dl (8.6-10.3); Potassium 2.9 mmol/L (3.5-5.1)
[2023-11-20 13:36] LABS: Albumin Globulin Ratio 1.1 (0.9-2); BUN Creatinine Ratio 9.1 (10-20); Est GFR (African American) 85.1 ml/min; Est GFR (Non-African American) 73.4 ml/min; Globulin 3.5 gm/dl (2.5-4.0); Total Protein 7.5 gm/dl (6.0-8.3)
[2023-11-20 13:38] LABS: Troponin I High Sensitivity 6.8 pg/ml (0-14)
--- NOTE | 2023-11-20 13:48 | XRay Report ---
XR chest 1V portable HISTORY: Chest pain, nonspecific COMPARISON: Chest 08/23/2023. FINDINGS: No pneumothorax. No pleural effusions. The cardiac silhouette is normal in size. There are calcifications within the aortic knob. Diffuse interstitial thickening has improved/resolved compared to the prior study. Left basilar linear scarlike densities and left basilar pleural thickening/scarr ing remains unchanged. No new focal lung consolidations to suggest a pneumonia. No evidence for pulmo nary edema. No acute fractures. IMPRESSION: 1. No acute process within the chest. 2. Stable left basilar scarring. ACT 112: Negative or not required by law. Electronically signed by: John Bowers M.D. 11/20/2023 1:47 PM
[2023-11-20] MEDS: POTASSIUM CHLORIDE / WTR 10 MEQ/100 ML PLCT IV SCH (14:51)
[2023-11-20] MEDS: POTASSIUM CHLORIDE 20 MEQ/15 ML UDC PO STA (14:51)
[2023-11-20] MEDS: LORazepam 1 MG/1 ML SYR ED Inj Use IV STA (14:52)
[2023-11-20 14:54] LABS: Magnesium 1.5 mg/dl (1.7-2.4)
--- NOTE | 2023-11-20 15:49 | Ultrasound Report ---
BILATERAL LOWER EXTREMITY VENOUS DOPPLER HISTORY: Acute pain and swelling of the lower legs swelling COMPARISON STUDY: 09/13/2022 FINDINGS: There is normal compressibility, flow, and augmentation within the bilateral lower extremit y deep venous systems. IMPRESSION: No DVT within the right or left lower extremity. ACT 112: Negative or not required by law. Electronically signed by: Raman Le M.D. 11/20/2023 3:48 PM
--- NOTE | 2023-11-20 16:29 | Electrocardiogram Report ---
Test Reason : Blood Pressure : / mmHG Vent. Rate : 074 BPM Atrial Rate : 060 BPM P-R Int : 124 ms QRS Dur : 078 ms QT Int : 320 ms P-R-T Axes : 081 071 044 degrees QTc Int : 355 ms Sinus rhythm with frequent Premature ventricular complexes Nonspecific ST and T wave abnormality Abnormal ECG When compared with ECG of 23-AUG-2023 09:02, Premature ventricular complexes are now Present ST no longer depressed in Inferior leads Nonspecific T wave abnormality now evident in Inferior leads T wave inversion now evident in Lateral leads QT has shortened Confirmed by Jamar Dumont ([id number]) on 11/20/2023 4:28:28 PM Referred By: REFERRED SELF Confirmed By:Jamar Dumont
[2023-11-20] MEDS: MAGNESIUM SULFATE / D5W 1 GM/100 ML BAG IV SCH (17:33)
--- NOTE | 2023-11-20 18:26 | History & Physical Report ---
Date of Service November 20, 2023 Assessment & Plan (1) Hypomagnesemia: (2) Hypokalemia: (3) Bradycardia: Plan Pt is a 58yoF with past medical history significant for pulmonary hypertension, history of PFO, history of IVDA in remission, Hx of endocarditis, history of methadone maintenance therapy, COPD; history of right lung nodule; hypertension; GERD; history of KARLA; osteoarthritis, ongoing tobacco abuse, on nicotine patch; depression, Hx of PE on Eliquis admitted with electrolyte abnormalities and persistent bradycardia on telemetry. Bradycardia HR noted to be from 30s-50s on telemetry in the ED EKG on arrival sinus with PVCs Echo Jul 2023 noting EF 60-65%, LVH, elevated RA pressures. Consider repeat In the ED potassium noted to be 2.9, mag of 1.5 Pt also on methadone EPIC chart review notes on Toprol 25mg BID for HTN, will hold at this time. Adjust dose as needed Cardiology consulted- appreciate recs Continue to monitor on telemetry Atropine prn for symptomatic bradycardia Hypokalemia Potassium of 2.9 on arrival Replete as needed Hypomagnesemia Magnesium of 1.5 on arrival Replete as needed Elevated Liver enzymes Liver enzymes elevated Trend with AM labs hx of chronic alcohol use Liver US ordered Chronic alcohol use AWSS protocol Continue other home meds as ordered Diet: HH DVT prophylaxis: On eliquis Dispo: PCU/tele History of Present Illness Primary Care Provider: Roseann Plummer MD Pt is a 58yoF with past medical history significant for pulmonary hypertension, history of PFO, history of IVDA in remission, Hx of endocarditis, history of methadone maintenance therapy, COPD; history of right lung nodule; hypertension; GERD; history of KARLA; osteoarthritis, ongoing tobacco abuse, on nicotine patch; depression, Hx of PE on Eliquis admitted with electrolyte abnormalities and persistent bradycardia on telemetry. Pt stated that she was here due to a low heart rate that she noticed on her pulse ox at home. Does take metoprolol at home. Was also concerned about her lower extremities and that she might have a blood clot. Pt is on chronic Eliquis at home. States this has been happening for the past few days. Also associated with g eneralized malaise and N/V. States she feels tired. In the ED was noted to be hypokalemic and hypomagnesemic. HR was noted to be in the 30s to 50s. Pt was admitted for further telemetry monitoring in this setting. Allergies Allergy/AdvReac Type Severity Reaction Status Date / Time fluticasone furoate AdvReac Intermediate INTENSE Verified 11/20/23 16:22 [From Trelegy Ellipta] HEADACHES umeclidinium AdvReac Intermediate INTENSE Verified 11/20/23 16:22 [From Trelegy Ellipta] HEADACHES vilanterol AdvReac Intermediate INTENSE Verified 11/20/23 16:22 [From Trelegy Ellipta] HEADACHES olive oil AdvReac Unknown reacts Verified 11/20/23 16:22 with methadone Home Medications Medication Instructions Recorded Confirmed Type amlodipine 10 mg tablet 10 mg PO QAM 05/16/22 11/20/23 History duloxetine 30 mg capsule,delayed 30 mg PO QAM 05/16/22 11/20/23 History release albuterol sulfate 90 mcg/actuation 2 puff inhalation Q6H PRN Cough 09/12/22 11/20/23 History aerosol inhaler apixaban 5 mg tablet (Eliquis) 5 mg PO BID #63 tabs 09/21/22 11/20/23 Rx ferrous gluconate 324 mg (38 mg 324 mg PO QAM #30 tabs 09/21/22 11/20/23 Rx iron) tablet furosemide 40 mg tablet 40 mg PO QAM #30 tabs 09/21/22 11/20/23 Rx methadone 10 mg/5 mL oral solution 100 mg PO QAM 06/25/23 11/20/23 History nicotine 7 mg/24 hr daily 1 patch transdermal DAILY 06/25/23 11/20/23 History transdermal patch pantoprazole 40 mg tablet,delayed 40 mg PO QAM 06/25/23 11/20/23 History release bisacodyl 5 mg tablet 5 - 10 mg PO HS PRN Constipation 08/23/23 11/20/23 History melatonin 3 mg tablet 3 - 6 mg PO HS PRN sleep 08/23/23 11/20/23 History metoprolol succinate 25 mg 25 mg PO BID 08/23/23 11/20/23 History tablet,extended release 24 hr polyethylene glycol 3350 17 gram 17 g PO DAILY PRN Constipation 08/23/23 11/20/23 History oral powder packet (Miralax) cyanocobalamin (vitamin B-12) 1,000 mcg PO 3XWK 11/20/23 11/20/23 History 1,000 mcg tablet (Vitamin B-12) potassium chloride 10 mEq 10 meq PO QAM 11/20/23 11/20/23 History tablet,extended release(part/cryst) Past Med/Surg History Medical History History of alcohol abuse Tobacco use Sepsis due to pneumonia Methadone maintenance therapy patient GERD (gastroesophageal reflux disease) HTN (hypertension) History of endocarditis --- r/t IV drug use. S/P transesophageal echocardiogram (RENATA) Lung nodule Constipation Anxiety Aspiration pneumonia 08/2022 from vomitting -- reports she "passed out and vomitted while she was incoherent" On home oxygen therapy 2 - 2.5 lpm via n/c daily Pulmonary embolism dx 08/2022 - unknown the cause. treated with anticoagulants. Thrombocytopenia Hepatitis C test positive pt denies. Anemia Recurrent major depressive disorder COPD (chronic obstructive pulmonary disease) Surgical History Status post total hip replacement, right Family History Other Family history non-contributory No family history of adverse response to anesthesia Social History Smoking Status: Current every day smoker Tobacco Type: Cigarettes Cigarettes Per Day: 6 cigs daily; Second Hand Exposure: Yes; Do You Dip or Chew Tobacco: No; Hx Alcohol Use: Yes Alcohol type: beer Preferred Language: Comoran Communication Ability: Effective Stubber Required: No Beliefs That Will Affect Care: None Current Living Situation: Alone Feels Safe at Home: Yes Assistive Devices: Oxygen - Continuous and Stair Lift Review of Systems Review of Systems: All systems reviewed & are unremarkable except as noted in Subjective Physical Exam Physical Exam: General: Alert, oriented. No acute distress Psych: Appropriate mood and affect Neuro: No gross deficits HEENT: NC/AT CV: RRR Resp: Breath sounds clear bilaterally, no increased effort of breathing. Abdomen: Soft, nontender, nondistended Extremities: No edema in lower extremities bilaterally. Results & Data Results & Data Vital Signs (Past 12 Hours) Vital Signs Temp Pulse Resp BP Pulse Ox O2 Del Method O2 Flow Rate 11/20/23 17:30 55 L 17 112/72 95 Nasal Cannula 11/20/23 17:01 66 18 130/71 95 Nasal Cannula 11/20/23 16:30 58 L 15 117/73 94 11/20/23 16:00 59 L 20 113/77 92 11/20/23 15:45 62 14 109/75 93 Room Air 11/20/23 13:20 116/72 11/20/23 13:20 58 L 22 95 11/20/23 13:10 60 16 96 11/20/23 13:10 140/68 11/20/23 13:00 122/57 L 11/20/23 13:00 58 L 18 95 11/20/23 12:56 68 22 95 11/20/23 12:56 133/70 11/20/23 12:43 140/74 11/20/23 12:43 61 15 95 11/20/23 12:30 60 16 11/20/23 12:00 65 18 11/20/23 11:44 135/81 11/20/23 11:44 63 16 94 11/20/23 11:36 62 11/20/23 11:30 64 15 11/20/23 11:30 85 L Room Air 11/20/23 11:28 62 20 11/20/23 10:41 36.3 C L 66 19 159/71 H 91 Nasal Cannula 3 Diagnostic Findings Chest X-Ray 11/20/23 10:46 XR chest 1V portable HISTORY: Chest pain, nonspecific COMPARISON: Chest 08/23/2023. FINDINGS: No pneumothorax. No pleural effusions. The cardiac silhouette is normal in size. There are calcifications within the aortic knob. Diffuse interstitial thickening has improved/resolved compared to the prior study. Left basilar linear scarlike densities and left basilar pleural thickening/scarring remains unchanged. No new focal lung consolidations to suggest a pneumonia. No evidence for pulmonary edema. No acute fractures. IMPRESSION: 1. No acute process within the chest. 2. Stable left basilar scarring. ACT 112: Negative or not required by law. Electronically signed by: John Bowers M.D. 11/20/2023 1:47 PM Venous Doppler Study 11/20/23 11:45 BILATERAL LOWER EXTREMITY VENOUS DOPPLER HISTORY: Acute pain and swelling of the lower legs swelling COMPARISON STUDY: 09/13/2022 FINDINGS: There is normal compressibility, flow, and augmentation within the bilateral lower extremity deep venous systems. IMPRESSION: No DVT within the right or left lower extremity. ACT 112: Negative or not required by law. Electronically signed by: Raman Le M.D. 11/20/2023 3:48 PM Code Status & VTE Plan VTE Prophylaxis Plan VTE Prophylaxis will be ordered: Yes
[2023-11-20] MEDS: LORazepam 1 MG in SYRINGE 0.5 ML IV PRN (21:33)
[2023-11-20] MEDS ORDERED: LORazepam 3 MG in SYRINGE 1.5 ML IV PRN (21:46)
[2023-11-20] MEDS ORDERED: Ativan IV Alcohol Withdrawal--Active Protocol IV PRN (21:46)
[2023-11-20] MEDS: APIXABAN 5 MG TABLET PO SCH (23:13)
[2023-11-20 23:42] LABS: Magnesium 2.2 mg/dl (1.7-2.4)
--- OUTSIDE RECORDS SUMMARY | 2023-11-20 23:44 | External Medical Summary | Summary of Care ---
Author Name Unknown Organization [facility] Address [address] [place] [address] Phone [phone] Care Team Providers Care Staff Development Coordinator Rn Name Role Phone Roseann Plummer MD Primary Care Provider Reason for Visit * Reason Comments eRx-Medication Refill Encounter Details Date Type Department Care Team (Late st Contact Info) Description 10/19/2023 Refill Family Practice [facility] [address] [place] [id number] Roseann Plummer MD [address] [place] [id number] HTN, goal below 130/80 Allergies Active Allergy Reactions Criticality Noted Date Comments Buspirone Rash 11/01/2022 documented as of this encounter (statuses as of 10/20/2023) Medications Medication Sig Dispensed Refills Start Date End Date Status methADONE 10 MG Tablet Take 1 Tablet by mouth once. 100mg daily 0 Active Albuterol Sulfate HFA 108 (90 Base) MCG/ACT Inhalation Aerosol SolutionIndicatio ns:Cough INHALE 2 PUFFS BY MOUTH EVERY 6 HOURS NEEDED FOR COUGH 18 g 5 11/18/2022 Active DULoxetine HCl 30 MG Oral Capsule Delayed Release Particles (Cymbalta)Indicat ions:Mood disorder (HCC) take 1 capsule by mouth every morning 90 Capsule 3 01/01/2023 Active Bisacodyl 5 MG Oral Tablet Delayed Release (Dulcolax) Take 1 Tablet by mouth daily as needed for Constipation. 30 Tablet 0 03/08/2023 Active Clobetasol Propionate 0.05 % External Cream (Temovate)Indicat ions:Psoriasis vulgaris Apply to rash on buttocks and thighs twice daily for 2 weeks 60 g 5 05/02/2023 Active Potassium Chloride Mayda ER 10 MEQ [...] the morning. 30 Tablet 5 05/15/2023 Active Metoprolol Succinate ER 25 MG Oral Tablet Extended Release 24 Hour (toPROL XL)Indications:HT N, goal below 130/80 take 1 tablet by mouth twice a day 180 Tablet 2 06/10/2023 Active Ferrous Gluconate 324 (38 Fe) MG Oral Tablet Take 1 Tablet by mouth daily with breakfast. 30 Tablet 2 07/31/2023 Active Nicotine 7 MG/24HR Transdermal Patch 24 Hour (Nicoderm CQ)Indications:To bacco use disorder APPLY 1 PATCH TOPICALLY DAILY 28 Patch 5 08/30/2023 Active diazePAM 5 MG Oral Tablet (Valium)Indicatio ns:Situational anxiety Take 1 tab by mouth 45-[address] scan. Do not mix with alcohol. Do not drive. 2 Tablet 0 09/04/2023 Active oxygen IN GAS Use 3 L/min(Oxygen) as directed continuous. 0 Active Full Kit Nebulizer Set Use with Nebulizer Medication three times daily as directed 1 Each 3 09/03/2023 Active Trelegy Ellipta 100-62.5-25 MCG/ACT Aerosol Powder Breath Activated Inhale 1 Puff by mouth in the morning. 0 08/29/2023 Active Benzonatate 100 MG Oral Capsule (Tessalon Perles) Take 1 Capsule by mouth 3 times a day as needed for Cough. 0 08/27/2023 Active Nicotine 14 MG/24HR Transdermal Patch 24 Hour (Nicoderm CQ)Indications:To bacco use disorder Place 1 Patch over 24 hours topically on the skin daily. 28 Patch 5 09/06/2023 Active Nicotine Polacrilex 2 MG Mouth/Throat Lozenge (Nicorette)Indica tions:Tobacco use disorder Administer 1 Lozenge to inside of cheek every 2 hours as needed for Other (nicotine craving). 24 Lozenge 11 09/06/2023 Active Albuterol Sulfate 0.63 MG/3ML Inhalation Nebulization Solution (Accuneb) Inhale 1 Vial via nebulizer every 6 hours as needed for Wheezing or Shortness of Breath. 360 mL 0 10/07/2023 Active amLODIPine Besylate 10 MG Oral Tablet (Norvasc)Indicati ons:HTN, goal below 130/80 take 1 tablet by mouth every morning 90 Tablet 3 10/20/2023 Active amLODIPine Besylate 10 MG Oral Tablet (Norvasc)Indicati ons:HTN, goal below 130/80 take 1 tablet by mouth every morning 90 Tablet 1 05/03/2023 4 Discontinued Hospital, Clinic, or Other Facility Administered Medication Ordered Dose Route Frequency Start Date End Date Status Albuterol Sulfate (Proventil) (2.5 MG/3ML) 0.083% inhalation solution 2.5 mgIndications:COPD, mild (HCC) 2.5 mg NEBULIZER PRN 10/11/2022 Active documented as of this encounter (statuses as of 10/20/2023) Active Problems Problem Noted Date Diagnosed Date Opioid dependence, uncomplicated 09/06/2023 Alcohol dependence, uncomplicated 09/06/2023 Dependence on supplemental oxygen 03/01/2023 Pulmonary emboli 02/09/2023 KARLA (acute kidney injury) 05/25/2022 Anemia 05/25/2022 Nodule of right lung 05/25/2022 Overview: [...] as of this encounter (statuses as of 10/20/2023) Resolved Problems Problem Noted Date Diagnosed Date Resolved Date Chronic kidney disease, stage 3a 10/08/2022 03/01/2023 Overview: Per CKD protocol Substance abuse 05/25/2022 03/01/2023 Thrombocytopenia 05/25/2022 09/06/2023 Food insecurity 03/06/2021 01/11/2022 Overview: Per [facility] Protocol documented as of this encounter (statuses as of 10/20/2023) Immunizations Name Administration Dates Next Due Pneumococcal Polysaccharide PPV23 (Pneumovax) Seasonal Influenza Virus Vac cine, Unspecified Formulation 04/28/2020 Seasonal Influenza, PF, 6 M & above, IM , (FluLaval or Fluzone) 04/28/2020 TDAP (age 10 and older)(Boostrix) 04/28/2020 documented as of this encounter Social History Tobacco Use Types Packs/Day Years Used Date Smoking Tobacco: Former Cigarettes 2 42.1 1 982 - 08/23/2023 Vaporizer Smokeless Tobacco: Never Alcohol Use Standard Drinks/Week Comments Not Currently 0 (1 standard drink = 0.6 oz pur e alcohol) PHQ-2 Answer Date Recorded PHQ Adult Total Score 8 05/25/2022 Hunger Vital Sign Answer Date Recorded Within the past 12 months, y ou worried that your food would run out before you got the money to buy more. Never true Within the past 12 months, t he food you bought just didn't last and you didn't have money to get more. Sometimes true 08/2023 Sex and Gender Information Value Date Recorded [...] encounter Miscellaneous Notes * Telephone Encounter - Soledad Hanson RPh - 10/20/2023 2:16 PM EDTSigned Prescriptions: Disp Refills amLODIPine Besylate 10 MG Oral Tablet (Nor*90 Tab*3 Sig: take 1 tablet by mouth every morningAuthorizing Provider: ROSEANN PLUMMER User: SOLEDAD HANSON documented in this encounter Plan of Treatment Upcoming Encounters Date Type Department Care Team (Late st Contact Info) Description 11/04/2023 9:00 AM EDT Imaging Radiology [place] [id number] Health Maintenance Due Date Last Done Comments Alpha-1 Antitrypsin 1985 Hepatitis B (1 of 3 - 19+ 3-dose series) 1986 Pap Smear 1988 Cervical Cancer Screening 1997 HPV/Co-Test 1997 Cologuard 2012 Colonoscopy 2012 Sigmoidoscopy 2012 Zoster Vaccines (1 of 2) 2017 Mammogram 02/28/2021 02/29/2020 Pneumococcal Vaccine: Pediatrics (0 to 5 Years) and At-Risk Patients (6 to 64 Years) (2 of 2 - PCV) 04/28/2021 04/28/2020 *ADVANCE DIRECTIVE NOT ON FILE 10/14/2021 COVID-19 Vaccine ( - 2022- season) 2023 Influenza Vaccine (FLU shot) (#1) 2023 04/28/2020, 04/28/2020 Depression Screening 05/25/2023 05/25/2022 Colorectal Cancer Screening 04/25/2024 Fecal Occult Blood Test 04/25/2024 04/25/2023, 04/25 GFR 09/06/2024 09/06/2023, 04/03/2023, 10/09/2022, Additional history exists O2 ASSESSMENT COMPLETED IN PAST YEAR FOR COPD 09/06/2024 09/06/2023 Albumin/Creatinine Ratio 04/26/2025 04/26/2022 Lipid Panel 11/25/2025 11/25/2020, 02/29/2020 Diabetes Screening 09/06/2026 09/06/2023, 0 10/09/2022, 09/28/2022, Additional history exists DTaP,Tdap,and Td Vaccines (2 - Td or Tdap) 04/28/2030 04/28/2020 GARDASIL-HPV IMMUNIZATION SERIES Aged Out No longer eligible based on patient's age to complete this topic MENINGOCOCCAL (MENACTRA/MENVEO) Aged Out No longer eligible based on patient's age to complete this topic documented as of this encounter Medical Devices Implanted Type Area Patient Services Clerk Device Identifier Shelf Expiration Date Model / Serial / Lot Shell Acet Trident Ii 50mm - [id number] Implanted:Qty: 1 on 12/05/2020 by Rodolfo Park, DO at OR [facility] Right: Hip K[employer]ICE : [employer] 09/04/2024 702-04-50D / / [id number] Trident Acetabular X3 0 36 D - [id number] Implanted:Qty: 1 on 12/05/2020 by Rodolfo Park DO at OR [facility] Right: Hip [employer]ICE : ORTH[employer] 09/14/2025 723-00-36D / / [id number] Hip Hd Nk Alumina D 36/ 25 - [id number] Implanted:Qty: 1 on 12/05/2020 by Rodolfo Park DO at OR [facility] Right: Hip K[employer]ICE : ORTH[employer] 10/03/2025 6570-0-436 / / [id number] Accolade Ii 127 Deg Sz 4 - [id number] Implanted:Qty: 1 on 12/05/2020 by Rodolfo Park DO at OR [facility] Right: Hip K[employer]ICE : ORTH[employer] 11/07/2025 [id number] / / [id number] documented as of this encounter Visit Diagnoses [...] the patient have Health Care Power of Commercial Kitchen Service Technician? Yes, not currently available Care Teams Staff Development Coordinator Rn Relationship Specialty Start Date End Date Roseann Plummer MD [address] [place] [id number] PCP - General Internal Medicine 11/05/22 documented as of this encounter
--- OUTSIDE RECORDS SUMMARY | 2023-11-20 23:44 | External Medical Summary | Summary of Care ---
Author Name Unknown Organization [facility] Address [address] [place] [address] Phone [phone] Care Team Providers Care University Manager Name Role Phone Roseann Plummer MD Primary Care Provider Reason for Visit * Reason Comments eRx-Medication Refill Encounter Details Date Type Department Care Team (Late st Contact Info) Description 11/18/2023 Refill Family Practice [facility] [address] [facility] [place] [address] Roseann Plummer MD [address] [place] [address] Allergies Active Allergy Reactions Criticality Noted Date Comments Buspirone Rash 11/01/2022 documented as of this encounter (statuses as of 11/19/2023) Medications Medication Sig Dispensed Refills Start Date [...] 2 weeks 60 g 5 05/02/2023 Active Metoprolol Succinate ER 25 MG Oral Tablet Extended Release 24 Hour (toPROL XL)Indications:HT N, goal below 130/80 take 1 tablet by mouth twice a day 180 Tablet 2 06/10/2023 Active Nicotine 7 MG/24HR Transdermal Patch 24 Hour (Nicoderm CQ)Indications:To bacco use disorder APPLY 1 PATCH TOPICALLY DAILY 28 Patch 5 08/30/2023 Active oxygen IN GAS Use 3 L/min(Oxygen) [...] every morning 90 Tablet 3 10/20/2023 Active Potassium Chloride Mayda ER 10 MEQ Oral Tablet Extended Release take 1 tablet by mouth every morning 90 Tablet 1 11/04/2023 Active Furosemide 40 MG Oral Tablet (Lasix) take 1 tablet by mouth every morning 90 Tablet 1 11/04/2023 Active Pantoprazole Sodium 40 MG Oral Tablet Delayed Release (Protonix) take 1 tablet by mouth every morning 90 Tablet 1 11/04/2023 Active Ferrous Gluconate 324 (38 Fe) MG Oral Tablet Take 1 Tablet by mouth daily with breakfast. 30 Tablet 2 11/13/2023 Active diazePAM 5 MG Oral Tablet (Valium)Indicatio ns:Situational anxiety Take 1 tab by mouth 45-[address] scan. Do not mix with alcohol. Do not drive. 2 Tablet 0 11/13/2023 Active Eliquis 5 MG Oral Tablet (Apixaban) take 1 tablet by mouth every morning and BEFORE BEDTIME 180 Tablet 1 11/19/2023 Active Apixaban 5 MG Oral Tablet (Eliquis) Take 1 Tablet by mouth in the morning and 1 Tablet before bedtime. 60 Tablet 5 05/15/2023 Discontinued Hospital, Clinic, or Other Facility Administered Medication Ordered Dose Route Frequency Start Date End Date Status Albuterol Sulfate (Proventil) (2.5 MG/3ML) 0.083% inhalation solution 2.5 mgIndications:COPD, mild (HCC) 2.5 mg NEBULIZER PRN 10/11/2022 Active documented as of this encounter (statuses as of 11/19/2023) Active Problems Problem Noted Date Diagnosed Date [...] as of this encounter (statuses as of 11/19/2023) Resolved Problems Problem Noted Date Diagnosed Date Resolved Date Chronic kidney disease, stage 3a 10/08/2022 03/01/2023 Overview: Per CKD protocol Substance abuse 05/25/2022 03/01/2023 Thrombocytopenia 05/25/2022 09/06/2023 Food insecurity 03/06/2021 01/11/2022 Overview: Per [facility] Protocol documented as of this encounter (statuses as of 11/19/2023) Immunizations Name Administration Dates Next Due Pneumococcal [...] encounter Miscellaneous Notes * Telephone Encounter - Zo Jaime RPh - 11/19/2023 12:57 PM EDTSigned Prescriptions: Disp Refills Eliquis 5 MG Oral Tablet (Apixaban) 180 Ta*1 Sig: take 1 tablet by mouth every morning and BEFORE BEDTIMEAuthorizing Provider: ROSEANN PLUMMER User:ZO JAIME documented in this encounter Plan of Treatment Upcoming Encounters Date Type Department Care Team (Late st Contact Info) Description 11/21/2023 11:00 AM EDT Imaging Radiology [address] [place] [address] Health Maintenance Due Date Last Done Comments [...] NOT ON FILE 10/14/2021 COVID-19 Vaccine ( season) 2023 Influenza Vaccine (FLU shot) (Season Ended) 2024 04/28/2020, 04/28/2020 Colorectal Cancer Screening 04/25/2024 Fecal Occult Blood Test 04/25/2024 04/25/2023, 04/25 GFR 09/06/2024 09/06/2023, 10/27, 10/09/2022, Additional history exists O2 ASSESSMENT COMPLETED [...] this encounter Medical Devices Implanted Type Area Lacrosse Coach Device Identifier Shelf Expiration Date Model / Serial / Lot Shell Acet Trident Ii 50mm - [id number] Implanted:Qty: 1 on 12/05/2020 by Rodolfo Park, at OR [facility] Right: Hip K[employer]ICE : ORTHOPA[employer] 09/04/2024 702-04-50D / / [id number] Trident Acetabular X3 0 36 D - [id number] Implanted:Qty: 1 on 12/05/2020 by Rodolfo Park, DO at OR [facility] Right: Hip K[employer]ICE : ORTHOPAED[employer] 09/14/2025 723-00-36D / / [id number] Hip Hd Perry Hummel 36/ - [id number] Implanted:Qty: 1 on 12/05/2020 by Rodolfo Park, DO at [facility] Right: Hip KANDICE : ORTHOPAEDICS 10/03/2025 [id number] / / [id number] Accolade Ii 127 Deg Sz 4 - [id number] Implanted:Qty: 1 on 12/05/2020 by Rodolfo Park, DO at [facility] Right: Hip K[employer]ICE : ORTHOPAEDICS 11/07/2025 [id number] / / [id number] documented as of this encounter Advance Directives [...] the patient have Health Care Power of Financial Wellness Coach? Yes, not currently available Care Teams University Manager Relationship Specialty Start Date End Date Roseann Plummer MD [address] [place] [address] [place] [id number] PCP - General Internal Medicine 11/05/22 documented as of this encounter
--- OUTSIDE RECORDS SUMMARY | 2023-11-20 23:44 | External Medical Summary | Summary of Care ---
Author Name Unknown Organization [facility] Address [address] [place] [address] Phone [phone] Care Team Providers Care Braille Operator Name Role Phone Roseann Plummer MD Primary Care Provider Encounter Details Date Type Department Care Team (Late st Contact Info) Description 11/11/2023 Orders Only Outcomes Research Department [address] [place] [address] Jeanna Holliday CHRA [employer] Research Other*[id number] Allergies Active Allergy Reactions Criticality Noted Date Comments Buspirone Rash 11/01/2022 documented as of this encounter (statuses as of 11/11/2023) Medications Medication Sig Dispensed Refills Start Date End Date Status methADONE 10 MG Tablet Take 1 Tablet by mouth once. 100mg daily 0 Active Albuterol Sulfate HFA 108 (90 Base) MCG/ACT Inhalation Aerosol SolutionIndications: Cough INHALE 2 PUFFS BY MOUTH EVERY 6 HOURS NEEDED FOR COUGH 18 g 5 11/18/2022 Active DULoxetine HCl 30 MG Oral Capsule Delayed Release Particles (Cymbalta)Indication s:Mood disorder (HCC) take 1 capsule by mouth every morning 90 Capsule 3 01/01/2023 Active Bisacodyl 5 MG Oral Tablet Delayed Release (Dulcolax) Take 1 Tablet by mouth daily as needed for Constipation. 30 Tablet 0 03/08/2023 Active Clobetasol Propionate 0.05 % External Cream (Temovate)Indication s:Psoriasis vulgaris Apply to rash on buttocks and thighs twice daily for 2 weeks 60 g 5 05/02/2023 Active Apixaban 5 MG Oral Tablet (Eliquis) Take 1 Tablet by mouth in the morning and 1 Tablet before bedtime. 60 Tablet 5 05/15/2023 Active Metoprolol Succinate ER 25 MG Oral Tablet Extended Release 24 Hour (toPROL XL)Indications:HTN, goal below 130/80 take 1 tablet by mouth twice a day 180 Tablet 2 06/10/2023 Active Ferrous Gluconate 324 (38 Fe) MG Oral Tablet Take 1 Tablet by mouth daily with breakfast. 30 Tablet 2 07/31/2023 Active Nicotine 7 MG/24HR Transdermal Patch 24 Hour (Nicoderm CQ)Indications:Tobac co use disorder APPLY 1 PATCH TOPICALLY DAILY 28 Patch 5 08/30/2023 Active diazePAM 5 MG Oral Tablet (Valium)Indications: Situational anxiety Take 1 tab by mouth 45-60 [...] 14 MG/24HR Transdermal Patch 24 Hour (Nicoderm CQ)Indications:Tobac co use disorder Place 1 Patch over 24 hours topically on the skin daily. 28 Patch 5 09/06/2023 Active Nicotine Polacrilex 2 MG Mouth/Throat Lozenge (Nicorette)Indicatio ns:Tobacco use disorder Administer 1 Lozenge to inside of cheek every 2 hours as needed for Other (nicotine craving). 24 Lozenge 11 09/06/2023 Active Albuterol Sulfate 0.63 MG/3ML Inhalation Nebulization Solution (Accuneb) Inhale 1 Vial via nebulizer every 6 hours as needed for Wheezing or Shortness of Breath. 360 mL 0 10/07/2023 Active amLODIPine Besylate 10 MG Oral Tablet (Norvasc)Indications :HTN, goal below 130/80 take 1 tablet by [...] every morning 90 Tablet 1 11/04/2023 Active Hospital, Clinic, or Other Facility Administered Medication Ordered Dose Route Frequency Start Date End Date Status Albuterol Sulfate (Proventil) (2.5 MG/3ML) 0.083% inhalation solution 2.5 mgIndications:COPD, mild (HCC) 2.5 mg NEBULIZER PRN 10/11/2022 Active documented as of this encounter (statuses as of 11/11/2023) Active Problems Problem Noted Date Diagnosed Date [...] as of this encounter (statuses as of 11/11/2023) Resolved Problems Problem Noted Date Diagnosed Date Resolved Date Chronic kidney disease, stage 3a 10/08/2022 03/01/2023 Overview: Per CKD protocol Substance abuse 05/25/2022 03/01/2023 Thrombocytopenia 05/25/2022 09/06/2023 Food insecurity 03/06/2021 01/11/2022 Overview: Per [facility] Protocol documented as of this encounter (statuses as of 11/11/2023) Immunizations Name Administration Dates Next Due Pneumococcal [...] Care Team (Late st Contact Info) Description 11/12/2023 9:45 AM EDT Imaging Radiology [address] [address] Scheduled Orders Name Type Priority Associated Diagnoses Orde r Schedule MYCODE INITIAL ADULT Lab Routine MyCode Research Other*[id number] Expected: 11/11/2023 (Approximate), Expires: 11/30/2024 Health Maintenance Due Date Last Done Comments [...] ON FILE 10/14/2021 COVID-19 Vaccine ( - season) 2023 Influenza Vaccine (FLU shot) (Season Ended) 2024 04/28/2020, 04/28/2020 Colorectal Cancer Screening 04/25/2024 Fecal Occult Blood Test 04/25/2024 04/25/2023, 04/25 GFR 09/06/2024 09/06/2023, 0403/2023, 10/09/2022, Additional history exists O2 ASSESSMENT COMPLETED [...] this encounter Medical Devices Implanted Type Area Saxophone Player Device Identifier Shelf Expiration Date Model / Serial / Lot Shell Acet Trident Ii 50mm - [id number] Implanted:Qty: 1 on 12/05/2020 by Rodolfo Park DO at OR [facility] Right: Hip KANDICE : ORTHOPAEDICS 09/04/2024 702-04-50D / / [id number] Trident Acetabular X3 0 36 D - [id number] Implanted:Qty: 1 on 12/05/2020 by Rodolfo Park DO at OR [facility] Right: Hip KANDICE : ORTHOPAEDICS 09/14/2025 723-00-36D / / [id number] Hip Hd Nk Alumina Md Hummel 36/ 25 - [id number] Implanted:Qty: 1 on 12/05/2020 by Rodolfo Park DO at OR [facility] Right: Hip KANDICE : ORTHOPAEDICS 10/03/2025 6570-0-436 / / [id number] Accolade Ii 127 Deg Sz 4 - [id number] Implanted:Qty: 1 on 12/05/2020 by Rodolfo Park DO at OR [facility] Right: Hip KANDICE : ORTHOPAEDICS 11/07/2025 [id number] / / [id number] documented as of this encounter Visit Diagnoses Diagnosis MyCode Research Other*[id number] documented in this encounter Advance Directives Latest [...] the patient have Health Care Power of Assistant Store Director? Yes, not currently available Care Teams Braille Operator Relationship Specialty Start Date End Date Roseann Plummer MD [address] [place] [address] PCP - General Internal Medicine 11/05/22 documented as of this encounter
--- OUTSIDE RECORDS SUMMARY | 2023-11-20 23:44 | External Medical Summary | Summary of Care ---
Author Name Unknown Organization [facility] Address [address] [place] [address] Phone [phone] Care Team Providers Care Zinc Etcher Name Role Phone Roseann Plummer MD Primary Care Provider Reason for Visit * Reason Onset Date Comments Medication Refill 11/12/2023 Encounter Details Date Type Department Care Team (Late st Contact Info) Description 11/12/2023 Refill Family Practice [facility] [address] [place] [address] Roseann Plummer MD [address] [place] [address] Situational anxiety Allergies Active Allergy Reactions Criticality Noted Date Comments Buspirone Rash 11/01/2022 documented as of this encounter (statuses as of 11/13/2023) Medications Medication Sig Dispensed Refills Start Date [...] as of this encounter (statuses as of 11/13/2023) Active Problems Problem Noted Date Diagnosed Date [...] as of this encounter (statuses as of 11/13/2023) Resolved Problems Problem Noted Date Diagnosed Date Resolved Date Chronic kidney disease, stage 3a 10/08/2022 03/01/2023 Overview: Per CKD protocol Substance abuse 05/25/2022 03/01/2023 Thrombocytopenia 05/25/2022 09/06/2023 Food insecurity 03/06/2021 01/11/2022 Overview: Per [facility] Protocol documented as of this encounter (statuses as of 11/13/2023) Immunizations Name Administration Dates Next Due Pneumococcal [...] encounter Miscellaneous Notes * Telephone Encounter - Alicja Agudelo RPh - 11/13/2023 4:51 PM EDT Refused Prescriptions: Disp Refills Ferrous Gluconate 324 (38 Fe) MG Oral Tabl*30 Tab*2 Sig: Take 1 Tablet by mouth daily with breakfast.Refused By: ALICJA AGUDELO for Refusal: Duplicate Request diazePAM 5 MG Oral Tablet (Valium) 2 Tabl*0 Sig: Take 1 tab by mouth 45-[address] scan. Do not mix with alcohol. Do not drive.Refused By: ALICJA AGUDELO for Refusal: Duplicate Request documented in this encounter Plan of Treatment Upcoming Encounters Date Type Department Care Team (Late st Contact Info) Description 11/15/2023 7:15 AM EDT Imaging Radiology [address] [place] [address] Health Maintenance Due [...] encounter Medical Devices Implanted Type Area Automotive Instructor Device Identifier Shelf Expiration Date Model / Serial / Lot Shell Acet Trident Ii 50mm - [id number] Implanted:Qty: 1 on 12/05/2020 by Rodolfo Park, DO at OR [facility] Right: Hip KANDICE : ORTHOPAEDICS 09/04/2024 702-04-50D / / [id number] Trident Acetabular X3 0 36 D - [id number] Implanted:Qty: 1 on 12/05/2020 by Rodolfo Park DO at OR [facility] Right: Hip KANDICE : ORTHOPAEDICS 09/14/2025 723-00-36D / / [id number] Hip Hd Perry Hummel 36/ 25 - [id number] Implanted:Qty: 1 on 12/05/2020 by Rodolfo Park DO at OR [facility] Right: Hip KANDICE : ORTHOPAEDICS 10/03/2025 6570-0-436 / / [id number] Accolade Ii 127 Deg Sz 4 - [id number] Implanted:Qty: 1 on 12/05/2020 by Rodolfo Park DO at OR [facility] Right: Hip KANDICE : ORTHOPAEDICS 11/07/2025 0565-1086 / / [id number] documented as of this encounter Visit Diagnoses Diagnosis Situational anxiety Other anxiety states documented in this encounter Advance Directives Latest [...] the patient have Health Care Power of Supervisor Extrusion? Yes, not currently available Care Teams Zinc Etcher Relationship Specialty Start Date End Date Roseann Plummer MD [address] [facility] [place] [address] PCP - General Internal Medicine 11/05/22 documented as of this encounter
--- OUTSIDE RECORDS SUMMARY | 2023-11-20 23:44 | External Medical Summary | Summary of Care ---
Author Name Unknown Organization [facility] Address [address] [place] [address] Phone [phone] Care Team Providers Care Gospel Singer Name Role Phone Roseann Plummer MD Primary Care Provider Reason for Visit * Reason Comments eRx-Medication Refill Encounter Details Date Type Department Care Team (Late st Contact Info) Description 11/10/2023 Refill Family Practice [facility] [address] [facility] [place] [address] Roseann Plummer MD [address] [facility] [place] [address] Allergies Active Allergy Reactions Criticality Noted Date Comments Buspirone Rash 11/01/2022 documented as of this encounter (statuses as of 11/12/2023) Medications Medication Sig Dispensed Refills Start Date [...] as of this encounter (statuses as of 11/12/2023) Active Problems Problem Noted Date Diagnosed Date [...] as of this encounter (statuses as of 11/12/2023) Resolved Problems Problem Noted Date Diagnosed Date Resolved Date Chronic kidney disease, stage 3a 10/08/2022 03/01/2023 Overview: Per CKD protocol Substance abuse 05/25/2022 03/01/2023 Thrombocytopenia 05/25/2022 09/06/2023 Food insecurity 03/06/2021 01/11/2022 Overview: Per [facility] Protocol documented as of this encounter (statuses as of 11/12/2023) Immunizations Name Administration Dates Next Due Pneumococcal [...] Description 11/15/2023 7:15 AM EDT Imaging Radiology [address] [address] Health Maintenance Due Date Last Done Comments [...] this encounter Medical Devices Implanted Type Area Bridge Contractor Device Identifier Shelf Expiration Date Model / Serial / Lot Shell Acet Trident Ii 50mm - [id number] Implanted:Qty: 1 on 12/05/2020 by Rodolfo Park DO at OR [facility] Right: Hip KANDICE : ORTHOPAEDICS 09/04/2024 702-04-50D / / [id number] Trident Acetabular X3 0 36 D - [id number] Implanted:Qty: 1 on 12/05/2020 by Rodolfo Park DO at OR [facility] Right: Hip KANDICE : ORTHOPAEDICS 09/14/2025 723-00-36D / / [id number] Hip Hd Nk Gavin Hummel 36/ 25 - [id number] Implanted:Qty: 1 on 12/05/2020 by Rodolfo Park DO at OR [facility] Right: Hip KANDICE : ORTHOPAEDICS 10/03/2025 6570-0-436 / / [id number] Accolade Ii 127 Deg Sz 4 - [id number] Implanted:Qty: 1 on 12/05/2020 by Rodolfo Park DO at OR [facility] Right: Hip KANDICE : ORTHOPAEDICS 11/07/2025 [id number] / / [id number] documented as of this encounter Advance Directives [...] the patient have Health Care Power of Special Agent In Charge? Yes, not currently available Care Teams Gospel Singer Relationship Specialty Start Date End Date Roseann Plummer MD [address] [place] [address] PCP - General Internal Medicine 11/05/22 documented as of this encounter
--- OUTSIDE RECORDS SUMMARY | 2023-11-20 23:44 | External Medical Summary | Summary of Care ---
Author Name Unknown Organization [facility] Address [address] [place] [address] Phone [phone] Care Team Providers Care Cancer Researcher Name Role Phone Roseann Plummer MD Primary Care Provider Reason for Visit * Reason Comments eRx-Medication Refill Encounter Details Date Type Department Care Team (Late st Contact Info) Description 11/03/2023 Refill Family Practice [facility] [address] [facility] [place] [address] Roseann Plummer MD [address] [place] [address] Allergies Active Allergy Reactions Criticality Noted Date Comments Buspirone Rash 11/01/2022 documented as of this encounter (statuses as of 11/04/2023) Medications Medication Sig Dispensed Refills Start Date [...] every morning 90 Tablet 1 11/04/2023 Active Potassium Chloride Mayda ER 10 MEQ Oral Tablet Extended Release Take 1 Tablet by mouth in the morning. 30 Tablet 5 05/15/2023 4 Discontinued Furosemide 40 MG Oral Tablet (Lasix) Take 1 Tablet by mouth in the morning. 30 Tablet 5 05/15/2023 4 Discontinued Pantoprazole Sodium 40 MG Oral Tablet Delayed Release (Protonix) Take 1 Tablet by mouth in the morning. 30 Tablet 5 05/15/2023 4 Discontinued Hospital, Clinic, or Other Facility Administered Medication Ordered Dose Route Frequency Start Date End Date Status Albuterol Sulfate (Proventil) (2.5 MG/3ML) 0.083% inhalation solution 2.5 mgIndications:COPD, mild (HCC) 2.5 mg NEBULIZER PRN 10/11/2022 Active documented as of this encounter (statuses as of 11/04/2023) Active Problems Problem Noted Date Diagnosed Date [...] as of this encounter (statuses as of 11/04/2023) Resolved Problems Problem Noted Date Diagnosed Date Resolved Date Chronic kidney disease, stage 3a 10/08/2022 03/01/2023 Overview: Per CKD protocol Substance abuse 05/25/2022 03/01/2023 Thrombocytopenia 05/25/2022 09/06/2023 Food insecurity 03/06/2021 01/11/2022 Overview: Per [facility] Protocol documented as of this encounter (statuses as of 11/04/2023) Immunizations Name Administration Dates Next Due Pneumococcal [...] Miscellaneous Notes * Telephone Encounter - Randi Dominguez [facility] - 11/04/2023 3:11 PM EDTSigned Prescriptions: Disp Refills Potassium Chloride Mayda ER 10 MEQ Oral Tab*90 Tab*1 Sig: take 1 tablet by mouth every morningAuthorizing Provider: ROSEANN PLUMMER User: RANDI DOMINGUEZ Furosemide 40 MG Oral Tablet (Lasix) 90 Tab*1 Sig: take 1 tablet by mouth every morningAuthorizingProvider: ROSEANN PLUMMER User: RANDI DOMINGUEZ Pantoprazole Sodium 40 MG Oral Tablet Gaby*90 Tab*1 Sig: take 1 tablet by mouth every morningAuthorizing Provider: ROSEANN PLUMMER User: RANDI DOMINGUEZ documented in this encounter Plan of Treatment Upcoming Encounters Date Type Department Care Team (Late st Contact Info) Description 11/12/2023 9:45 AM EDT Imaging Radiology [address], [address] [place] [address] Health Maintenance Due Date Last Done [...] this encounter Medical Devices Implanted Type Area Medical Staff Manager Device Identifier Shelf Expiration Date Model / Serial / Lot Shell Acet Trident Ii 50mm - [id number] Implanted:Qty: 1 on 12/05/2020 by Rodolfo Park DO at OR [facility] Right: Hip KANDICE : ORTHOPAEDICS 09/04/2024 702-04-50D / / [id number] Trident Acetabular X3 0 36 D - [id number] Implanted:Qty: 1 on 12/05/2020 by Rodolfo Park DO at OR [facility] Right: Hip KANDICE : ORTHOPAEDICS 09/14/2025 723-00-36D / / [id number] Hip Hd Perry Hummel 36/ 25 - [id number] Implanted:Qty: 1 on 12/05/2020 by Rodolfo Park DO at OR [facility] Right: Hip KANDICE : ORTHOPAEDICS 10/03/2025 6570-0-436 / / [id number] Accolade Ii 127 Deg Sz 4 - [id number] Implanted:Qty: 1 on 12/05/2020 by Rodolfo Park DO at OR [facility] Right: Hip KANDICE : ORTHOPAEDICS 11/07/2025 7992-1331 / / [id number] documented as of this encounter Advance Directives [...] the patient have Health Care Power of Public Opinion Survey Taker? Yes, not currently available Care Teams Cancer Researcher Relationship Specialty Start Date End Date Roseann Plummer MD [address] [place] [address] PCP - General Internal Medicine 11/05/22 documented as of this encounter
--- OUTSIDE RECORDS SUMMARY | 2023-11-20 23:44 | External Medical Summary | Summary of Care ---
Author Name Unknown Organization [facility] Address [address] [place] [address] Phone [phone] Care Team Providers Care Lithograph Press Operator Name Role Phone Roseann Plummer MD Primary Care Provider Encounter Details Date Type Department Care Team ([facility] st Contact Info) Description 09/06/2023 Patient Reported Data Patient Survey Ortho [facility]CE Allergies Active Allergy Reactions Criticality Noted Date Comments Buspirone Rash 11/01/2022 documented as of this encounter (statuses as of 10/10/2023) Medications Medication Sig Dispensed Refills Start Date End Date Status methADONE 10 MG Tablet Take 1 Tablet by mouth once. 100mg daily 0 Active Albuterol Sulfate HFA 108 (90 Base) MCG/ACT Inhalation Aerosol SolutionIndications :Cough INHALE 2 PUFFS BY MOUTH EVERY 6 HOURS NEEDED FOR COUGH 18 g 5 11/18/2022 Active DULoxetine HCl 30 MG Oral Capsule Delayed Release Particles (Cymbalta)Indicatio ns:Mood disorder (HCC) take 1 capsule by mouth every morning 90 Capsule 3 01/01/2023 Active Bisacodyl 5 MG Oral Tablet Delayed Release (Dulcolax) Take 1 Tablet by mouth daily as needed for Constipation. 30 Tablet 0 03/08/2023 Active Clobetasol Propionate 0.05 % External Cream (Temovate)Indicatio ns:Psoriasis vulgaris Apply to rash on buttocks and thighs twice daily for 2 weeks 60 g 5 05/02/2023 Active amLODIPine Besylate 10 MG Oral Tablet (Norvasc)Indication s:HTN, goal below 130/80 take 1 tablet by [...] 7 MG/24HR Transdermal Patch 24 Hour (Nicoderm CQ)Indications:Toba new accounts clerk use disorder APPLY 1 PATCH TOPICALLY DAILY 28 Patch 5 08/30/2023 Active diazePAM 5 MG Oral Tablet (Valium)Indications :Situational anxiety Take 1 tab by mouth 45-60 [...] 14 MG/24HR Transdermal Patch 24 Hour (Nicoderm CQ)Indications:Toba new accounts clerk use disorder Place 1 Patch over 24 hours topically on the skin daily. 28 Patch 5 09/06/2023 Active Nicotine Polacrilex 2 MG Mouth/Throat Lozenge (Nicorette)Indicati ons:Tobacco use disorder Administer 1 Lozenge to inside of cheek every 2 hours as needed for Other (nicotine craving). 24 Lozenge 11 09/06/2023 Active Hospital, Clinic, or Other Facility Administered Medication Ordered Dose Route Frequency Start Date End Date Status Albuterol Sulfate (Proventil) (2.5 MG/3ML) 0.083% inhalation solution 2.5 mgIndications:COPD, mild (HCC) 2.5 mg NEBULIZER PRN 10/11/2022 Active documented as of this encounter (statuses as of 10/10/2023) Active Problems Problem Noted Date Diagnosed Date [...] as of this encounter (statuses as of 10/10/2023) Resolved Problems Problem Noted Date Diagnosed Date Resolved Date Chronic kidney disease, stage 3a 10/08/2022 03/01/2023 Overview: Per CKD protocol Substance abuse 05/25/2022 03/01/2023 Thrombocytopenia 05/25/2022 09/06/2023 Food insecurity 03/06/2021 01/11/2022 Overview: Per [facility] Protocol documented as of this encounter (statuses as of 10/10/2023) Immunizations Name Administration Dates Next Due Pneumococcal [...] Care Team (Late st Contact Info) Description 10/14/2023 9:30 AM EDT Imaging Radiology [address] [facility] [place] [address] 11/04/2023 9:00 AM EDT Imaging Radiology [address] 132 [facility] [place] [address] Health Maintenance Due Date Last Done Comments [...] ( season) 2023 Influenza Vaccine (FLU shot) (#1) [...] this encounter Medical Devices Implanted Type Area Fire Truck Driver Device Identifier Shelf Expiration Date Model / Serial / Lot Shell Acet Trident Ii 50mm - [id number] Implanted:Qty: 1 on 12/05/2020 by Rodolfo Park DO at OR [facility] Right: Hip KANDICE : ORTHOPAEDICS 09/04/2024 702-04-50D / / [id number] Trident Acetabular X3 0 36 D - [id number] Implanted:Qty: 1 on 12/05/2020 by Rodolfo Park DO at OR [facility] Right: Hip KANDICE : ORTHOPAEDICS 09/14/2025 723-00-36D / / [id number] Hip Hd Nk Alumina Md Hummel 36/ 25 - [id number] Implanted:Qty: 1 on 12/05/2020 by Rodolfo Park DO at OR [facility] Right: Hip KANDICE : ORTHOPAEDICS 10/03/2025 6570-0-436 / / [id number] Accolade Ii 127 Deg Sz 4 - [id number] Implanted:Qty: 1 on 12/05/2020 by Rodolfo Park DO at OR [facility] Right: Hip KANDICE : ORTHOPAEDICS 11/07/2025 5638-1335 / / [id number] documented as of this encounter Advance Directives [...] the patient have Health Care Power of T Rail Turner? Yes, not currently available Care Teams Lithograph Press Operator Relationship Specialty Start Date End Date Roseann Plummer MD [address] [place] [address] PCP - General Internal Medicine 11/05/22 documented as of this encounter
--- OUTSIDE RECORDS SUMMARY | 2023-11-20 23:44 | External Medical Summary | Summary of Care ---
Author Name Unknown Organization [facility] Address [address] [place] [address] Phone [phone] Care Team Providers Care Show Jumping Instructor Name Role Phone Roseann Plummer MD Primary Care Provider Reason for Visit * Reason Onset Date Comments Medication Refill 11/10/2023 Encounter Details Date Type Department Care Team (Late st Contact Info) Description 11/10/2023 Refill Family Practice [facility] [address] [place] [address] Roseann Plummer MD [address] [place] [address] Situational anxiety Allergies Active Allergy Reactions Criticality [...] CQ)Indications:Tob acco use disorder Place 1 Patch over 24 hours topically on the skin daily. 28 Patch 5 09/06/2023 Active Nicotine Polacrilex 2 MG Mouth/Throat Lozenge (Nicorette)Indicat ions:Tobacco use disorder Administer 1 Lozenge to inside [...] 11/13/2023 Active diazePAM 5 MG Oral Tablet (Valium)Indication s:Situational anxiety Take 1 tab by mouth 45-[address] scan. Do not mix with alcohol. Do not drive. 2 Tablet 0 11/13/2023 Active Ferrous Gluconate 324 (38 Fe) MG Oral Tablet Take 1 Tablet by mouth daily with breakfast. 30 Tablet 2 07/31/2023 4 Discontinue d(Refill) diazePAM 5 MG Oral Tablet (Valium)Indication s:Situational anxiety Take 1 tab by mouth 45-[address] scan. Do not mix with alcohol. Do not drive. 2 Tablet 0 09/04/2023 4 Discontinue d(Refill) Hospital, Clinic, or Other [...] Telephone Encounter - Roseann Plummer MD - 11/13/2023 9:02 PM EDT Signed Prescriptions: Disp Refills Ferrous Gluconate 324 (38 Fe) MG Oral Tabl*30 Tab*2 Sig: Take 1 Tablet by mouth daily with breakfast.Authorizing Provider: ROSEANN PLUMMER diazePAM 5 MG Oral Tablet (Valium) 2 Tabl*0 Sig: Take 1 tab by mouth 45-[address] scan[address] Do not mix with a lcohol. Do not drive.Authorizing Provider: ROSEANN PLUMMER * Telephone Encounter - Vicky Zamora [facility] - 11/12/2023 9:45 AM EDTPending Prescriptions: Disp Refills Ferrous Gluconate 324 (38 Fe) MG Oral Tabl*30 Tab*2 Sig: Take 1 Tablet by mouth daily with breakfast. diazePAM 5 MG Oral Tablet (Valium) 2 Tabl*0 Sig: Take 1 tab by mouth 45-[address] scan[address] Do not mix with alcohol. Do not drive. * Telephone Encounter - Vicky Zamora [facility] - 11/12/2023 9:44 AM EDT FERRITIN Date Value Ref Range Status 09/06/2023 344 (H) 13 - 150 ng/mL Final Comment: Postmenopausal women have higher ferritin levels than pre-menopausal women. The above reference interval is based on pre-menopausal women. Last ferritin was elevated and all other labs were within normal limits. Please approve if appropriate Thank You, Vicky Zamora [facility] Clinical Pharmacist Centralized Clinical Pharmacy Services (CCPS) (formerly Telepharmacy) [phone] 11/12/2023, 9:45 AM * Telephone Encounter - Vicky Zamora [facility] - 11/12/2023 9:44 AM EDT I have reviewed the patients controlled substance dispensing history in the Prescription Drug Monitoring Program in compliance with the [facility] regulations before prescribing a controlled substance. PDMP checked on 11/12/2023. Pending Prescriptions: Disp Refills Ferrous Gluconate 324 (38 Fe) MG Oral Tab*30 Tab*2 Sig: Take 1 Tablet by mouth daily with breakfast. diazePAM 5 MG Oral Tablet (Valium) 2 Tabl*0 Sig: Take 1 tab by mouth 45-[address] scan[address] Do not mix with alcohol. Do not drive. Last Visit: 09/06/2023 (in office), Visit date not found (telemedicine) Next Visit: Visit date not found Date medication was last filled: 09/04/23 Date medication is due for refill: 09/06/23 [facility]acy: [id number] Is this request for a controlled substance? Yes and Urine Drug Screen Not completed Toxicology results: No results found for this or any previous visit. Please approve if appropriate. Thank You, Vicky Zamora [facility] Clinical Pharmacist Centralized Clinical Pharmacy Services (CCPS) (formerly Telepharmacy) [phone] 11/12/2023, 9:44 AM documented in this encounter Plan of Treatment Upcoming Encounters Date Type Department Care Team (Late st Contact Info) Description 11/15/2023 7:15 AM EDT Imaging Radiology [address] [place] [address] Health Maintenance Due Date Last Done [...] this encounter Medical Devices Implanted Type Area Consulting It Architect Device Identifier Shelf Expiration Date Model / Serial / Lot Shell Acet Trident Ii 50mm - [id number] Implanted:Qty: 1 on 12/05/2020 by Rodolfo Park DO at OR [facility] Right: Hip KANDICE : ORTHOPAEDICS 09/04/2024 702-04-50D / / [id number] Trident Acetabular X3 0 36 D - [id number] Implanted:Qty: 1 on 12/05/2020 by Rodolfo Park DO at OR [facility] Right: Hip KANDICE : ORTHOPAEDICS 09/14/2025 723-00-36D / / [id number] Hip Hd Nk Alumina Md D 36/ 25 - [id number] Implanted:Qty: 1 on 12/05/2020 by Rodolfo Park DO at OR [facility] Right: Hip KANDICE : ORTHOPAEDICS 10/03/2025 6570-0-436 / / [id number] Accolade Ii 127 Deg Sz 4 - [id number] Implanted:Qty: 1 on 12/05/2020 by Rodolfo Park DO at OR [facility] Right: Hip KANDICE : ORTHOPAEDICS 11/07/2025 [id number] / / [id number] documented as of this encounter Visit Diagnoses [...] patient have Health Care Power of Corporate Security Officer? Yes, not currently available Care Teams Show Jumping Instructor Relationship Specialty Start Date End Date Roseann Plummer MD [address] [place] [address] PCP - General Internal Medicine 11/05/22 documented as of this encounter
--- OUTSIDE RECORDS SUMMARY | 2023-11-20 23:44 | External Medical Summary | Summary of Care ---
Author Name Unknown Organization [facility] Address [address] [place] [address] Phone [phone] Care Team Providers Care Continuous Pillowcase Cutter Name Role Phone Roseann Plummer MD Primary Care Provider Reason for Visit * Reason Onset Date Comments Medication Refill 10/09/2023 Encounter Details Date Type Department Care Team (Late st Contact Info) Description 10/09/2023 Refill Family Practice [facility] [address] [place] [address] Roseann Plummer MD [address] [place] [address] Tobacco use disorder Allergies Active Allergy Reactions [...] of Breath. 360 mL 0 10/07/2023 Active Hospital, Clinic, or Other Facility Administered [...] encounter Miscellaneous Notes * Telephone Encounter - Magda Yañez RPh - 10/10/2023 10:53 AM EDT Refused Prescriptions: Disp Refills Nicotine 7 MG/24HR Transdermal Patch 24 Ho*28 Pat*5 Sig: APPLY 1 PATCH TOPICALLY DAILYRefused By: MAGDA YAÑEZ for Refusal: Too soon documented in this encounter Plan of Treatment Upcoming Encounters Date Type Department Care Team (Late st Contact Info) Description 10/14/2023 9:30 AM EDT [address]iology [address] [address] 11/04/2023 9:00 AM EDT Imaging Radiology [place] [address] [address] [place] [address] Health Maintenance Due Date Last Done Comments [...] this encounter Medical Devices Implanted Type Area Keeper Head Device Identifier Shelf Expiration Date Model / Serial / Lot Shell Acet Trident Ii 50mm - [id number] Implanted:Qty: 1 on 12/05/2020 by Rodolfo Park DO at OR [facility] Right: Hip KANDICE : ORTHOPAEDICS 09/04/2024 702-04-50D / / [id number] Trident Acetabular X3 0 36 D - [id number] Implanted:Qty: 1 on 12/05/2020 by Rodolfo Park DO at OR [facility] Right: Hip KANDICE : ORTHOPAEDICS 09/14/2025 723-00-36D / / [id number] Hip Hd Perry Hummel 36/ 25 - [id number] Implanted:Qty: 1 on 12/05/2020 by Rodolfo Park DO at OR [facility] Right: Hip KANDICE : ORTHOPAEDICS 10/03/2025 6570-0-436 / / [id number] Accolade Ii 127 Deg Sz 4 - [id number] Implanted:Qty: 1 on 12/05/2020 by Rodolfo Park DO at OR [facility] Right: Hip KANDICE : ORTHOPAEDICS 11/07/2025 [id number] / / [id number] documented as of this encounter Visit Diagnoses [...] patient have Health Care Power of Manager Loss Prevention? Yes, not currently available Care Teams Continuous Pillowcase Cutter Relationship Specialty Start Date End Date Roseann Plummer MD [address] [place] [address] PCP - General Internal Medicine 11/05/22 documented as of this encounter
--- OUTSIDE RECORDS SUMMARY | 2023-11-20 23:45 | External Medical Summary | Summary of Care ---
Author Name Unknown Organization [facility] Address [address] [place] [address] Phone [phone] Care Team Providers Care Light Truck Driver Name Role Phone Roseann Plummer MD Primary Care Provider Reason for Visit * Reason Onset Date Comments Medication Refill 09/18/2023 Encounter Details Date Type Department Care Team (Late st Contact Info) Description 09/18/2023 Refill Family Practice [facility] [address] [place] [address] Roseann Plummer MD [address] [place] [address] Rash and nonspecific skin eruption Allergies Active Allergy Reactions Criticality Noted Date Comments Buspirone Rash 11/01/2022 documented as of this encounter (statuses as of 09/18/2023) Medications Medication Sig Dispensed Refills Start Date [...] 3 L/min(Oxygen) as directed continuous. 0 Active Albuterol Sulfate 0.63 MG/3ML Inhalation Nebulization Solution (Accuneb) Inhale 1 Vial via nebulizer every 6 hours as needed for Wheezing or Shortness of Breath. 360 mL 0 09/03/2023 Active Full Kit Nebulizer Set Use with [...] (nicotine craving). 24 Lozenge 11 09/06/2023 Active Tolnaftate 1 % External CreamIndications: Rash and nonspecific skin eruption Apply topically to affected area 2 times a day. Apply to thighs and lower back/gluteal cleft. 113 g 1 03/07/2023 Discontinued Hospital, Clinic, or Other Facility Administered Medication Ordered Dose Route Frequency Start Date End Date Status Albuterol Sulfate (Proventil) (2.5 MG/3ML) 0.083% inhalation solution 2.5 mgIndications:COPD, mild (HCC) 2.5 mg NEBULIZER PRN 10/11/2022 Active documented as of this encounter (statuses as of 09/18/2023) Active Problems Problem Noted Date Diagnosed Date [...] as of this encounter (statuses as of 09/18/2023) Resolved Problems Problem Noted Date Diagnosed Date Resolved Date Chronic kidney disease, stage 3a 10/08/2022 03/01/2023 Overview: Per CKD protocol Substance abuse 05/25/2022 03/01/2023 Thrombocytopenia 05/25/2022 09/06/2023 Food insecurity 03/06/2021 01/11/2022 Overview: Per [facility] Protocol documented as of this encounter (statuses as of 09/18/2023) Immunizations Name Administration Dates Next Due Pneumococcal [...] Telephone Encounter - Roseann Plummer MD - 09/18/2023 10:02 PM EST Derm says antifungal is not needed. See other encounter. Med removed from list. * Telephone Encounter - Vernon Mily - 09/18/2023 4:53 PM ESTPending Prescriptions: Disp Refills Tolnaftate 1 % External Cream 113 g 1 Sig: Apply topically to affected area 2 times a day. Apply to thighs and lower back/gluteal cleft. documented in this encounter Plan of Treatment Upcoming Encounters Date Type Department Care Team (Late st Contact Info) Description 09/19/2023 10:15 AM EST Imaging Radiology [address] [place] [address] 11/04/2023 9:00 AM EDT Imaging Radiology [address] [place] [address] Health Maintenance Due Date Last Done Comments [...] - season) 2023 Influenza Vaccine (FLU shot) (#1) [...] this encounter Medical Devices Implanted Type Area Floral Specialist Device Identifier Shelf Expiration Date Model / Serial / Lot Shell Acet Trident Ii 50mm - [id number] Implanted:Qty: 1 on 12/05/2020 by Rodolfo Park DO at OR [facility] Right: Hip KANDICE : ORTHOPAEDICS 09/04/2024 702-04-50D / / [id number] Trident Acetabular X3 0 36 D - [id number] Implanted:Qty: 1 on 12/05/2020 by Rodolfo Park DO at OR [facility] Right: Hip KANDICE : ORTHOPAEDICS 09/14/2025 723-00-36D / / [id number] Hip Hd Nk Alumina Md D 36/ 25 - [id number] Implanted:Qty: 1 on 12/05/2020 by Rodolfo Park DO at OR [facility] Right: Hip KANDICE : ORTHOPAEDICS 10/03/2025 6570-0-436 / / [id number] Accolade Ii 127 Deg Sz 4 - [id number] Implanted:Qty: 1 on 12/05/2020 by Rodolfo Park DO at OR [facility] Right: Hip KANDICE : ORTHOPAEDICS 11/07/2025 [id number] / / [id number] documented as of this encounter Visit Diagnoses [...] patient have Health Care Power of Special Technical Operations Officer? Yes, not currently available Care Teams Light Truck Driver Relationship Specialty Start Date End Date Roseann Plummer MD [address] [place] [address] PCP - General Internal Medicine 11/05/22 documented as of this encounter
--- OUTSIDE RECORDS SUMMARY | 2023-11-20 23:45 | External Medical Summary | Summary of Care ---
Author Name Unknown Organization [facility] Address [address] [place] [address] Phone [phone] Care Team Providers Care Supervisor Heading Name Role Phone Roseann Plummer MD Primary Care Provider Reason for Visit * Reason Onset Date Comments Medication Refill 09/11/2023 Encounter Details Date Type Department Care Team (Late st Contact Info) Description 09/11/2023 Refill Family Practice [facility] [address] [place] [address] Roseann Plummer MD [address] [place] [address] Rash and nonspecific skin eruption Allergies Active Allergy Reactions Criticality Noted Date Comments Buspirone Rash 11/01/2022 documented as of this encounter (statuses as of 09/12/2023) Medications Medication Sig Dispensed Refills Start Date [...] 08/30/2023 Active diazePAM 5 MG Oral Tablet (Valium)Indication [...] Shortness of Breath. 360 mL 0 09/03/2023 03/07/202 4 Active Full Kit Nebulizer Set Use with [...] (nicotine craving). 24 Lozenge 11 09/06/2023 Active Naftifine HCl 2 % External CreamIndications:R ayaz and nonspecific skin eruption Apply topically to affected area daily. Apply to rash on thighs, buttocks, hands. 45 g 1 09/12/2023 Active Naftifine HCl 2 % External CreamIndications:R ayaz and nonspecific skin eruption Apply topically to affected area daily. Apply to rash on thighs, buttocks, hands. 45 g 1 05/15/2023 4 Discontinue d(Refill) Hospital, Clinic, or Other Facility Administered Medication Ordered Dose Route Frequency Start Date End Date Status Albuterol Sulfate (Proventil) (2.5 MG/3ML) 0.083% inhalation solution 2.5 mgIndications:COPD, mild (HCC) 2.5 mg NEBULIZER PRN 10/11/2022 Active documented as of this encounter (statuses as of 09/12/2023) Active Problems Problem Noted Date Diagnosed Date [...] as of this encounter (statuses as of 09/12/2023) Resolved Problems Problem Noted Date Diagnosed Date Resolved Date Chronic kidney disease, stage 3a 10/08/2022 03/01/2023 Overview: Per CKD protocol Substance abuse 05/25/2022 03/01/2023 Thrombocytopenia 05/25/2022 09/06/2023 Food insecurity 03/06/2021 01/11/2022 Overview: Per [facility] Protocol documented as of this encounter (statuses as of 09/12/2023) Immunizations Name Administration Dates Next Due Pneumococcal Polysaccharide PPV23 (Pneumovax) Seasonal Influenza Virus Vac cine, Unspecified Formulation 04/28/2020 Seasonal Influenza, PF, 6 M & above, IM , (FluLaval or Fluzone) 04/28/2020 TDAP (age 10 and older)(Boostrix) 04/28/2020 documented as of this encounter Social History Tobacco Use Types Packs/Day Years Used Date Smoking Tobacco: Former Cigarettes 2 41 1 982 - 08/23/2023 Vaporizer Started: 07/17 22 Smokeless Tobacco: Never Alcohol Use Standard Drinks/Week [...] Telephone Encounter - Roseann Plummer MD - 09/12/2023 12:41 PM EST Signed Prescriptions: Disp Refills Naftifine HCl 2 % External Cream 45 g 1 Sig: Apply topically to affected area daily. Apply to rash on thighs, buttocks, hands. Authorizing Provider: ROSEANN PLUMMER * Telephone Encounter - Randi Valle RPh - 09/12/2023 12:13 PM ESTPending Prescriptions: Disp Refills Naftifine HCl 2 % External Cream 45 g 1 Sig: Apply topically to affected area daily. Apply to rash on thighs, buttocks, hands. * Telephone Encounter - Randi Valle RPh - 09/12/2023 12:13 PM EST [facility] is currently not authorized to approve refills for the pended medication(s) per refill protocol. Please approve if appropriate. Thanks, Randi Valle PharmD Clinical Pharmacist Centralized Clinical Pharmacy Services ([facility]) [phone] 09/12/2023, 12:13 PM * Telephone Encounter - Randi Valle RPh - 09/12/2023 12:13 PM EST Pending Prescriptions: Disp Refills Naftifine HCl 2 % External Cream 45 g 1 Sig: Apply topically to affected area daily. Apply to rash on thighs, buttocks, hands. Last Visit: 09/06/2023 (in office), Visit date not found (telemedicine) Next Visit: Visit date not found If no future appointments scheduled, and last appointment is greater than a year ago, please schedule patient for a follow-up appointment Last date the medication was ordered: 05/15/23 [facility]acy: [facility] #[id number] Is this request for a controlled substance? No Urine Drug Screen:No results found for this or any previous visit. Patient Phone Numbers Labs: Lab Results Component Value Date/Time CREAT 0.7 09/06/2023 12:10 PM CREAT 0.92 10/09/2022 12:00 AM CREAT 0.8 02/29/2020 12:27 PM POTASSIUM 4.4 09/06/2023 12:10 PM POTASSIUM 3.3 (A) 10/09/2022 12:00 AM POTASSIUM 3.9 02/29/2020 12:27 PM TSH 2.82 05/25/2022 12:46 PM TSH 2.11 02/29/2020 12:27 PM LDLCALC 196 (H) 11/25/2020 12:32 PM LDLCALC 205 (H) 02/29/2020 12:27 PM LDLDIRECT NOT APPLICABLE 02/29/2020 12:27 PM ALT 25 09/06/2023 12:10 PM ALT 21 02/29/2020 12:27 PM HGBA1C 5.6 11/25/2020 12:32 PM documented in this encounter Plan of Treatment Upcoming Encounters Date Type Department Care Team (Late st Contact Info) Description 09/19/2023 10:15 AM EST Imaging Radiology [address] [place] [address] 11/04/2023 9:00 AM EDT Imaging Radiology [address] [place] [address] Health Maintenance Due Date Last Done Comments Hepatitis B (1 of 3 - 3-dose [...] this encounter Medical Devices Implanted Type Area Sprinkler Fitter Apprentice Device Identifier Shelf Expiration Date Model / Serial / Lot Accolade Ii 127 Deg Sz 4 - [id number] Implanted:Qty: 1 on 12/05/2020 by Rodolfo Park, at OR [facility] Right: Hip KANDICE : ORTHOPAEDICS 11/07/2025 [id number] / / [id number] documented as of this encounter Visit Diagnoses [...] the patient have Health Care Power of Oncology Nurse Navigator? Yes, not currently available Care Teams Supervisor Heading Relationship Specialty Start Date End Date Roseann Plummer MD [address] [place] [address] PCP - General Internal Medicine 11/05/22 documented as of this encounter
--- OUTSIDE RECORDS SUMMARY | 2023-11-20 23:45 | External Medical Summary | Summary of Care ---
Author Name Unknown Organization [facility] Address [address] [place] [address] Phone [phone] Care Team Providers Care Spanish Interpreter/Translator Name Role Phone Roseann Plummer MD Primary Care Provider Reason for Visit * Reason Onset Date Comments Test Results 09/09/2023 Encounter Details Date Type Department Care Team ([facility] st Contact Info) Description 09/09/2023 Telephone Family Practice [facility] [address] [facility] [address] Roseann Plum[facility] MD [address] [facility] [place] [id number] Test Results Allergies Active Allergy Reactions Criticality Noted Date Comments Buspirone Rash 11/01/2022 documented as of this encounter (statuses as of 09/09/2023) Medications Medication Sig Dispensed Refills Start Date [...] 3 01/01/2023 Active Tolnaftate 1 % External CreamIndications:Ra sh and nonspecific skin eruption Apply topically to [...] 05/15/2023 Active Naftifine HCl 2 % External CreamIndications:Ra sh and nonspecific skin eruption Apply topically to [...] MG/24HR Transdermal Patch 24 Hour (Nicoderm CQ)Indications:Toba operations accountant use disorder APPLY 1 PATCH TOPICALLY DAILY [...] Shortness of Breath. 360 mL 0 09/03/2023 10/03/2023 Active Full Kit Nebulizer Set Use with [...] MG/24HR Transdermal Patch 24 Hour (Nicoderm CQ)Indications:Toba operations accountant use disorder Place 1 Patch over 24 [...] as of this encounter (statuses as of 09/09/2023) Active Problems Problem Noted Date Diagnosed Date [...] as of this encounter (statuses as of 09/09/2023) Resolved Problems Problem Noted Date Diagnosed Date Resolved Date Chronic kidney disease, stage 3a 10/08/2022 03/01/2023 Overview: Per CKD protocol Substance abuse 05/25/2022 03/01/2023 Thrombocytopenia 05/25/2022 09/06/2023 Food insecurity 03/06/2021 01/11/2022 Overview: Per [facility] Protocol documented as of this encounter (statuses as of 09/09/2023) Immunizations Name Administration Dates Next Due Pneumococcal [...] Miscellaneous Notes * Telephone Encounter - Lisa Seymour, [facility] - 09/09/2023 6:31 AM EST Results for orders placed or performed in visit on 09/06/23 IRON SCREEN, INCLUDING TIBC Result Value Ref Range Iron 54 33 - 151 ug/dL Iron Binding Capacity 291 250 - 425 ug/dL Transferrin Saturation Percent 19 15 - 55 % Results for orders placed or performed in visit on 09/06/23 FERRITIN Result Value Ref Range Ferritin 344 (H) 13 - 150 ng/mL Iron screening and HGB and HCT are WNR and ferritin is elevated. Forwarding to provider to review and advise if pt should continue on Ferrous Sulfate daily or discontinue and reassess labs in 6 months. Thank you, Lisa Seymour, PharmD Clinical Pharmacist Centralized Clinical Pharmacy Services ([facility]) (formerly Telepharmacy) [phone] 09/09/2023, 6:32 AM documented in this encounter Plan of Treatment Upcoming Encounters Date Type Department Care Team (Late st Contact Info) Description 11/04/2023 9:00 AM EDT Imaging Radiology [address] [place] [address] Health Maintenance Due Date Last Done Comments [...] this encounter Medical Devices Implanted Type Area Gas Dispenser Device Identifier Shelf Expiration Date Model / Serial / Lot Accolade Ii 127 Deg Sz 4 - [id number] Implanted:Qty: 1 on 12/05/2020 by Rodolfo Park, DO at OR [facility] Right: Hip KANDICE : ORTHOPAEDICS 11/07/2025 [id number] / / [id number] documented as of this encounter Advance Directives [...] the patient have Health Care Power of Transportation Clerk? Yes, not currently available Care Teams Spanish Interpreter/Translator Relationship Specialty Start Date End Date Roseann Plummer MD [address] [place] [address] PCP - General Internal Medicine 11/05/22 documented as of this encounter
--- OUTSIDE RECORDS SUMMARY | 2023-11-20 23:45 | External Medical Summary | Summary of Care ---
Author Name Unknown Organization [facility] Address [address] [place] [address] Phone [phone] Care Team Providers Care Body And Fender Mechanic Name Role Phone Roseann Plummer MD Primary Care Provider Reason for Visit * Reason Onset Date Comments Medication Pre-auth 09/16/2023 Naftifine cr eam Encounter Details Date Type Department Care Team ([facility] st Contact Info) Description 09/16/2023 Telephone Family Practice [facility] [address] [place] [address] Roseann Plummer MD [address] [place] [address] Medication Pre-auth (Naftifine cream/) Allergies Active Allergy Reactions Criticality Noted Date [...] lower back/gluteal cleft. 113 g 1 03/07/2023 4 Discontinued Naftifine HCl 2 % External CreamIndications: Rash and nonspecific skin eruption Apply topically to affected area daily. Apply to rash on thighs, buttocks, hands. 45 g 1 09/12/2023 4 Discontinued Hospital, Clinic, or Other Facility [...] encounter Miscellaneous Notes * Telephone Encounter - Claudia Siu MED ASSIST - 09/18/2023 9:56 AM EST message left for patient to call back. MyG also sent. * Telephone Encounter - Roseann Plummer MD - 09/17/2023 9:38 AM EST Please let patient know that Dr Alexander says she does not need the naftitine cream as her biopsy did not show yeast. Med list updated. * Telephone Encounter - Roseann Plummer MD - 09/16/2023 9:[address] Alexander - patient saw you for this rash in February. Does she need to continue the naftitine cream? * Telephone Encounter - Leilani Helms CPhT - 09/16/2023 10:38 AM EST Patients insurance would like to inform the office that Naftifine HCl 2 % External Cream is denied because 3 other preferred that need to be tried first, nystatin, miconazole . They will fax this info to the office, please review and resubmit if appropriate. Thank you, Sharon Helms Retail Service Lead Merchandiser [facility]) 09/16/2023,10:38 AM * Telephone Encounter - Claudia Siu MED ASSIST - 09/16/2023 8:01 AM EST Prior auth for Naftifine submitted on Pooja GARCIA. Will await response. Prior Auth (EOC) ID: [id number] documented in this encounter Plan of Treatment Upcoming Encounters Date Type Department Care Team (Late st Contact Info) Description 09/19/2023 10:15 AM EST Imaging Radiology [address] 132 [facility] [place] [address] 11/04/2023 9:00 AM EDT Imaging Radiology [address] 132 [facility] [place] [address] Health Maintenance Due Date Last Done Comments [...] ON FILE 10/14/2021 COVID-19 Vaccine ( - 2022-24 season) 2023 Influenza Vaccine (FLU shot) (#1) [...] this encounter Medical Devices Implanted Type Area Time Study Observer Device Identifier Shelf Expiration Date Model / Serial / Lot Shell Acet Trident Ii 50mm - [id number] Implanted:Qty: 1 on 12/05/2020 by Rodolfo Park, DO at OR [facility] Right: Hip KANDICE : ORTHOPAEDICS 09/04/2024 [id number] / / [id number] Trident Acetabular X3 0 36 D - [id number] Implanted:Qty: 1 on 12/05/2020 by Rodolfo Park DO at OR [facility] Right: Hip KANDICE : ORTHOPAEDICS 09/14/2025 [id number] / / [id number] Hip Hd Perry Hummel / - [id number] Implanted:Qty: 1 on 12/05/2020 by Rodolfo Park DO at OR [facility] Right: Hip KANDICE : ORTHOPAEDICS 10/03/2025 [id number] / / [id number] Accolade Ii 127 Deg Sz 4 - [id number] Implanted:Qty: 1 on 12/05/2020 by Rodolfo Park DO at OR [facility] Right: Hip KANDICE : ORTHOPAEDICS 11/07/2025 [id number] / / [id number] documented as of this encounter Advance Directives [...] the patient have Health Care Power of Full Decator Operator? Yes, not currently available Care Teams Body And Fender Mechanic Relationship Specialty Start Date End Date Roseann Plummer MD 132 [facility] [place] [address] PCP - General Internal Medicine 11/05/22 documented as of this encounter
--- OUTSIDE RECORDS SUMMARY | 2023-11-20 23:45 | External Medical Summary | Summary of Care ---
Author Name Unknown Organization [facility] Address [address] [place] [address] Phone [phone] Care Team Providers Care Washer Hand Name Role Phone Roseann Plummer MD Primary Care Provider Reason for Visit * Reason Onset Date Comments Hospital Follow-Up Pt here for a hospital f/u from 08/27 for Acute hypoxemic respiratory failure Hospital Follow-Up 09/06/2023 Encounter Details Date Type Department Care Team (Latest Contact Info) Description 09/06/2023 11:00 AM EST [facility] [address] [facility] [address] [facility] discharge follow-up*; Hyponatremia; Hypokalemia; Elevated hemoglobin (HCC); KARLA (acute kidney injury) (HCC); Tobacco use disorder; Vaginal candidiasis; Opioid dependence, uncomplicated (HCC); Alcohol dependence, uncomplicated (HCC); Dependence on supplemental oxygen Allergies Active Allergy Reactions Criticality Noted Date Comments Buspirone Rash 11/01/2022 documented as of this encounter (statuses as of 09/06/2023) Medications Medication Sig Dispensed Refills Start Date [...] Shortness of Breath. 360 mL 0 09/03/2023 10/03/19 24 Active Full Kit Nebulizer Set Use with [...] (nicotine craving). 24 Lozenge 11 09/06/2023 Active Fluconazole 150 MG Oral Tablet (Diflucan)Indicat ions:Vaginal candidiasis Take 1 Tablet by mouth once for 1 dose. Repeat in 3-4 days if still having symptoms. 2 Tablet 0 09/06/2023 09/06/19 24 Active Umeclidinium-Lauren nterol 62.5-25 MCG/ACT Inhalation Aerosol Powder Breath Activated (ANORO ellipta)Indicatio ns:COPD, mild (HCC) Inhale 1 Puff by mouth in the morning. 60 Blister Dosing Unit 11 10/11/2022 09/06/19 24 Discontinued Hospital, Clinic, or Other Facility Administered Medication Ordered Dose Route Frequency Start Date End Date Status Albuterol Sulfate (Proventil) (2.5 MG/3ML) 0.083% inhalation solution 2.5 mgIndications:COPD, mild (HCC) 2.5 mg NEBULIZER PRN 10/11/2022 Active documented as of this encounter (statuses as of 09/06/2023) Active Problems Problem Noted Date Diagnosed Date [...] as of this encounter (statuses as of 09/06/2023) Resolved Problems Problem Noted Date Diagnosed Date Resolved Date Chronic kidney disease, stage 3a 10/08/2022 03/01/2023 Overview: Per CKD protocol Substance abuse 05/25/2022 03/01/2023 Thrombocytopenia 05/25/2022 09/06/2023 Food insecurity 03/06/2021 01/11/2022 Overview: Per [facility] Protocol documented as of this encounter (statuses as of 09/06/2023) Immunizations Name Administration Dates Next Due Pneumococcal [...] Vaporizer Started: 07/17 22 Smokeless Tobacco: Never Tobacco Cessation:Counseling Given: Not Answered Alcohol Use Standard Drinks/Week Comments Not Currently [...] Sign Reading Time Taken Comments Blood Pressure 122/68 09/06/2023 11:22 AM EST Pulse 76 09/06/2023 11:22 AM EST Temperature 36.4 C (97.5 F) 09/06/2023 11:[address] Respiratory Rate 16 09/06/2023 11:22 AM EST Oxygen Saturation 92% 09/06/2023 11:22 AM EST Inhaled Oxygen Concentration - - Weight 89.6 kg (197 lb 9.6 oz) 09/06/2023 11:22 AM EST Height 172.7 cm (5' 8") 09/06/2023 11:22 AM EST Body Mass Index 30.04 09/06/2023 11:22 AM EST documented in this encounter Functional Status Functional [...] as of this encounter Progress Notes * Roseann Plummer MD - 09/06/2023 11:37 AM EST SUBJECTIVE: Bhumika Flores is a 58 year old female. Chief Complaint Patient presents with Hospital Follow-Up Pt here for a hospital f/u from 08/27 for Acute hypoxemic respiratory failure Hospital Follow-Up Recent Admission: Patient was recently admitted to [facility] 08/23/13. The date of discharge was 08/27/23. Discharge report received and reviewed. HPI: Found to be hypoxic at methadone clinic in the low 80s. Sick with febrile illness for a few days. Chest x-ray showed pulmonary edema with superimposed pneumonia. Admitted with early signs of sepsis. Pulmonary consulted. Treated with cefepime and doxycycline. Discharged with Trelegy inhaler. Recommended low-dose CT chest cancer screening in outpatient pulmonary function test. Hyponatremia and hypokalemia secondary to poor appetite. Saw Pulmonary 3 days ago. Quit smoking. Follow-up CT in 2 months ordered. Added albuterol therapy. 12 days without cigarette! Boyfriend still smoking. Had big craving this AM, took a drag off his cigarette. Immediately started coughing and hated the taste. Wearing 7mg patch, things needs higher dose. Can't use nicotine gum - sticks to her dentures. Open to trying lozenge. Quit drinking EtOH two weeks ago. Has fine rest tremor in both hands. Yeast infections from abx. Also in mouth from ill fitting dentures. 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 Recurrent major depressive disorder ([facility]) F33.9 Chronic obstructive pulmonary disease with (acute) exacerbation ([facility]) J44.1 COPD, group C, by GOLD 2017 classification ([facility]) J44.9 Food insecurity Z59.41 Medical home patient encounter Z00.8 KARLA (acute kidney injury) ([facility]) N17.9 Anemia D64.9 Nodule of right lung R91.1 Pulmonary emboli ([facility]) I26.99 Dependence on supplemental oxygen Z99.81 Opioid dependence, uncomplicated ([facility]) F11.20 Alcohol dependence, uncomplicated ([facility]) F10.20 Current Outpatient Medications Medication Sig Dispense Refill methADONE 10 MG Tablet Take 1 Tablet by mouth once. 100mg daily Albuterol Sulfate HFA 108 (90 Base) MCG/ACT Inhalation Aerosol Solution INHALE 2 PUFFS BY MOUTH EVERY 6 HOURS NEEDED FOR COUGH 18 g 5 DULoxetine HCl 30 MG Oral Capsule Delayed Release Particles (Cymbalta) take 1 capsule by mouth every morning 90 Capsule 3 Bisacodyl 5 MG Oral Tablet Delayed Release (Dulcolax) Take 1 Tablet by mouth daily as needed for Constipation. 30 Tablet 0 Clobetasol Propionate 0.05 % External Cream (Temovate) Apply to rash on buttocks and thighs twice daily for 2 weeks 60 g 5 amLODIPine Besylate 10 MG Oral Tablet (Norvasc) take 1 tablet by mouth every morning 90 Tablet 1 Potassium Chloride Mayda ER 10 MEQ Oral Tablet Extended Release Take 1 Tablet by mouth in the morning. 30 Tablet 5 Furosemide 40 MG Oral Tablet (Lasix) Take 1 Tablet by mouth in the morning. 30 Tablet 5 Apixaban 5 MG Oral Tablet (Eliquis) Take 1 Tablet by mouth in the morning and 1 Tablet before bedtime. 60 Tablet 5 Pantoprazole Sodium 40 MG Oral Tablet Delayed Release (Protonix) Take 1 Tablet by mouth in the morning. 30 Tablet 5 Metoprolol Succinate ER 25 MG Oral Tablet Extended Release 24 Hour (toPROL XL) take 1 tablet by mouth twice a day 180 Tablet 2 Ferrous Gluconate 324 (38 Fe) MG Oral Tablet Take 1 Tablet by mouth daily with breakfast. 30 Tablet2 Nicotine 7 MG/24HR Transdermal Patch 24 Hour (Nicoderm CQ) APPLY 1 PATCH TOPICALLY DAILY 28 Patch 5 diazePAM 5 MG Oral Tablet (Valium) Take 1 tab by mouth 45-[address] scan. Do not mix with alcohol. Do not drive. 2 Tablet 0 oxygen IN GAS Use 3 L/min(Oxygen) as directed continuous. Albuterol Sulfate 0.63 MG/3ML Inhalation Nebulization Solution (Accuneb) Inhale 1 Vial via nebulizer every 6 hours as needed for Wheezing or Shortness of Breath. 360 mL 0 Full Kit Nebulizer Set Use with Nebulizer Medication three times daily as directed 1 Each 3 Trelegy Ellipta 100-62.5-25 MCG/ACT Aerosol Powder Breath Activated Inhale 1 Puff by mouth in the morning. Benzonatate 100 MG Oral Capsule (Tessalon Perles) Take 1 Capsule by mouth 3 times a day as needed for Cough. Nicotine 14 MG/24HR Transdermal Patch 24 Hour (Nicoderm CQ) Place 1 Patch over 24 hours topically on the skin daily. 28 Patch 5 Nicotine Polacrilex 2 MG Mouth/Throat Lozenge (Nicorette) Administer 1 Lozenge to inside of cheek every 2 hours as needed for Other (nicotine craving). 24 Lozenge 11 Fluconazole 150 MG Oral Tablet (Diflucan) Take 1 Tablet by mouth once for 1 dose. Repeat in 3-4 days if still having symptoms. 2 Tablet 0 Tolnaftate 1 % External Cream Apply topically to affected area 2 times a day. Apply to thighs and lower back/gluteal cleft. 113 g 1 Naftifine HCl 2 % External Cream Apply topically to affected area daily. Apply to rash on thighs, buttocks, hands. 45 g 1 Current Facility-Administered Medications Medication Dose Route Frequency Provider Last Rate Last Admin Albuterol Sulfate (Proventil) (2.5 MG/3ML) 0.083% inhalation solution 2.5 mg 2.5 mg Nebulizer PRN Caitlin Vasques, DO 2.5 mg at 10/18/22 1450 Current and discharge medications have been reconciled. Review of patient's allergies indicates: Allergen Reactions Buspar [Buspirone] Rash OBJECTIVE: BP 122/68 (BP Site: Left Arm, BP Position: Sitting, BP Cuff Size: Regular) | Pulse 76 | Temp 36.4 C (97.5 F) (Tympanic) | Resp 16 | Ht 1.727 m (5' 8") | Wt 89.6 kg (197 lb 9.6 oz) | SpO2 92% | BMI 30.04 kg/m | BSA 2.07 m REVIEW OF SYSTEMS: Review of Systems Constitutional: Negative for fever and unexpected weight change. HENT: Positive for dental problem. Negative for sore throat and trouble swallowing. Eyes: Negative for visual disturbance. Respiratory: Positive for cough and shortness of breath. Negative for chest tightness. Portable O2 working well Cardiovascular: Negative for chest pain and leg swelling. Gastrointestinal: Negative for constipation and diarrhea. Genitourinary: Negative for dysuria and hematuria. Musculoskeletal: Negative for joint swelling. Skin: Negative for rash and wound. Neurological: Negative for light-headedness. Psychiatric/Behavioral: Positive for sleep disturbance. PHYSICAL EXAM: BP 122/68 (BP Site: Left Arm, BP Position: Sitting, BP Cuff Size: Regular) | Pulse 76 | Temp 36.4 C (97.5 F) (Tympanic) | Resp 16 | Ht 1.727 m (5' 8") | Wt 89.6 kg (197 lb 9.6 oz) | SpO2 92% | BMI 30.04 kg/m | BSA 2.07 m Physical Exam Vitals and nursing note reviewed. Constitutional: General: She is not in acute distress. Appearance: Normal appearance. She is not ill-appearing. HENT: Head: Normocephalic and atraumatic. Mouth/Throat: Mouth: Mucous membranes are moist. Pharynx: Oropharynx is clear. Comments: Tongue is red Eyes: Pupils: Pupils are equal, round, and reactive to light. Neck: Thyroid: No thyroid mass, thyromegaly or thyroid tenderness. Cardiovascular: Rate and Rhythm: Normal rate and regular rhythm. Heart sounds: No murmur heard. Pulmonary: Effort: Pulmonary effort is normal. Breath sounds: Normal breath sounds. Abdominal: General: There is no distension. Palpations: Abdomen is soft. Tenderness: There is no abdominal tenderness. There is no guarding. Musculoskeletal: Right lower leg: No edema. Left lower leg: No edema. Lymphadenopathy: Cervical: No cervical adenopathy. Skin: General: Skin is warm and dry. Neurological: Mental Status: She is alert. Psychiatric: Mood and Affect: Mood normal. Behavior: Behavior normal. ASSESSMENT: Hospital discharge follow-up (Primary) - DISCH MED RECON CUR MED LIS Hyponatremia - MAGNESIUM; Future; Expected date: 09/06/2023 - PHOSPHORUS; Future; Expected date: 09/06/2023 Hypokalemia - MAGNESIUM; Future; Expected date: 09/06/2023 - PHOSPHORUS; Future; Expected date: 09/06/2023 Elevated hemoglobin (HCC) - CBC; Future; Expected date: 09/06/2023 KARLA (acute kidney injury) (HCC) - COMPREHENSIVE METABOLIC PANEL; Future; Expected date: 09/06/2023 Tobacco use disorder - Nicotine 14 MG/24HR Transdermal Patch 24 Hour (Nicoderm CQ); Place 1 Patch over 24 hours topically on the skin daily. - Nicotine Polacrilex 2 MG Mouth/Throat Lozenge (Nicorette); Administer 1 Lozenge to inside of cheek every 2 hours as needed for Other (nicotine craving). Vaginal candidiasis - Fluconazole 150 MG Oral Tablet (Diflucan); Take 1 Tablet by mouth once for 1 dose. Repeat in 3-4 days if still having symptoms. Opioid dependence, uncomplicated (HCC) Alcohol dependence, uncomplicated (HCC) Dependence on supplemental oxygen Follow Up: Return in about 6 months (around 03/06/2024) for Return with Luis Plummer Today. | For: Return with [facility] Today I have advised the patient to call our office in case of any worsening or new symptoms. The above was discussed and understanding was expressed. I spent a total of 27 minutes on the date of service in preparation, delivery and documentation of the care provided to Bhumika Flores excluding any time spent in the performance of any procedure or separately billable services. Roseann Plummer MD [facility] documented in this encounter Plan of Treatment Upcoming Encounters Date Type Department Care Team (Late st Contact Info) Description 11/04/2023 9:00 AM EDT Imaging Radiology [address], [address] [place] [address] Pending Results Name Type Priority Associated Diagnoses Date /Time MAGNESIUM Lab Routine Hyponatremia Hypokalemia 09/06/2023 12:10 PM EST Scheduled Orders Name Type Priority Associated Diagnoses Orde r Schedule MAGNESIUM Lab Routine Hyponatremia Hypokalemia Expected: 09/06/2023, Expires: 09/06/2024 Health Maintenance Due Date Last Done Comments [...] this encounter Medical Devices Implanted Type Area Education Director Device Identifier Shelf Expiration Date Model / Serial / Lot Accolade Ii 127 Deg Sz 4 - [id number] Implanted:Qty: 1 on 12/05/2020 by Rodolfo Park, DO at OR [facility] Right: Hip KANDICE : ORTHOPAEDICS 11/07/2025 [id number] / / [id number] documented as of this encounter Results * (ABNORMAL) COMPREHENSIVE METABOLIC PANEL (09/06/2023 12:10 PM EST) BUN 13 6 - 20 mg/dL 09/06/2023 1:21 PM EST [facility] Creatinine 0.7 0.5 - 1.0 mg/dL 09/06/2023 1:21 PM EST [facility] Estimated Glomerular Filtration Rate >90 >=60 mL/min 09/06/2023 1:21 PM EST [facility] Comment:eGFR is calculated b ased on the CKD-EPI 2020 equation Sodium 136 135 - 146 mmol/L 09/06/2023 1:21 PM EST [facility] Potassium 4.4 3.5 - 5.1 mmol/L 09/06/2023 1:21 PM EST [facility] Chloride 95(L) 98 - 107 mmol/L 09/06/2023 1:21 PM EST [facility] CO2 28 22 - 32 mmol/L 09/06/2023 1:21 PM EST [facility] Anion Gap 13 7 - 15 mmol/L 09/06/2023 1:21 PM EST [facility] Glucose 109 70 - 120 mg/dL 09/06/2023 1:21 PM EST [facility] Albumin 3.9 3.8 - 5.0 g/dL 09/06/2023 1:21 PM EST [facility] AST 23 10 - 35 U/L 09/06/2023 1:21 PM EST [facility] Comment:Result may be falsel y elevated due to hemolysis. Alkaline Phosphatase 127 35 - 130 U/L 09/06/2023 1:21 PM EST [facility] Bilirubin, Total 0.6 <=1.2 mg/dL 09/06/2023 1:21 PM EST [facility] Calcium 9.3 8.4 - 10.2 mg/dL 09/06/2023 1:21 PM EST [facility] Protein 6.8 6.0 - 8.3 g/dL 09/06/2023 1:21 PM EST [facility] ALT 25 10 - 35 U/L 09/06/2023 1:21 PM EST [facility] Blood Venous blood specimen / Unknown Venipuncture / Unknown 09/06/2023 12:10 PM EST 09/06/2023 12:11 PM EST Roseann Plummer MD LAB BLOOD [facility] Organization Address City/State/ZIP Co de Phone Number [facility] [address] [place] [address] * (ABNORMAL) CBC (09/06/2023 12:10 PM EST) WBC 15.66(H) 4.00 - 10.80 K/uL 09/06/2023 12:18 PM EST [facility] RBC 3.70 3.85 - 5.15 M/uL 09/06/2023 12:18 PM EST [facility] HGB 12.3 12.0 - 15.3 g/dL 09/06/2023 12:18 PM EST [facility] HCT 38.1 36.0 - 45.2 % 09/06/2023 12:18 PM EST [facility] MCV 103.0 81.5 - 97.5 fL 09/06/2023 12:18 PM EST [facility] MCH 33.2 27.0 - 34.0 pg 09/06/2023 12:18 PM EST [facility] MCHC 32.3 32.0 - 36.0 g/dL 09/06/2023 12:18 PM EST [facility] RDW 12.5 11.5 - 15.5 % 09/06/2023 12:18 PM EST [facility] PLT 197 140 - 400 K/uL 09/06/2023 12:18 PM EST [facility] MPV 10.2 6.6 - 11.1 fL 09/06/2023 12:18 PM EST [facility] Blood Venous blood specimen / Unknown Venipuncture / Unknown 09/06/2023 12:10 PM EST 09/06/2023 12:11 PM EST Roseann Plummer MD LAB BLOOD [facility] Organization Address City/State/ZIP Co de Phone Number [facility] [phone] [place] [address] documented in this encounter Visit Diagnoses Diagnosis Hospital discharge follow-up- Primary Other follow-up examination Hyponatremia Hyposmolality and/or hyponatremia Hypokalemia Hypopotassemia Elevated hemoglobin (HCC) Other hemoglobinopathies KARLA (acute kidney injury) (HCC) Acute kidney failure, unspecified Tobacco use disorder Vaginal candidiasis Candidiasis of vulva and vagina Opioid dependence, uncomplicated (HCC) Alcohol dependence, uncomplicated (HCC) Dependence on supplemental oxygen documented in this encounter Advance Directives Latest [...] the patient have Health Care Power of Digital Account Director? Yes, not currently available Care Teams Washer Hand Relationship Specialty Start Date End Date Roseann Plummer MD [address] [place] [address] PCP - General Internal Medicine 11/05/22 documented as of this encounter
--- OUTSIDE RECORDS SUMMARY | 2023-11-20 23:45 | External Medical Summary | Summary of Care ---
Author Name Unknown Organization [facility] Address [address] [place] [address] Phone [phone] Care Team Providers Care Transformation Manager Name Role Phone Roseann Plummer MD Primary Care Provider Encounter Details Date Type Department Care Team (Late st Contact Info) Description 08/23/2023 Orders Only Family Practice [facility] [address] [facility] [address] Roseann Plummer MD [address] [place] [address] Allergies Active Allergy Reactions Criticality Noted Date Comments Buspirone Rash 11/01/2022 documented as of this encounter (statuses as of 09/11/2023) Medications Medication Sig Dispensed Refills Start Date [...] 3 01/01/2023 Active Tolnaftate 1 % External CreamIndications:Rm h and nonspecific skin eruption Apply topically to [...] 05/15/2023 Active Naftifine HCl 2 % External CreamIndications:Rm h and nonspecific skin eruption Apply topically to [...] with breakfast. 30 Tablet 2 07/31/2023 Active Hospital, Clinic, or Other Facility Administered Medication Ordered Dose Route Frequency Start Date End Date Status Albuterol Sulfate (Proventil) (2.5 MG/3ML) 0.083% inhalation solution 2.5 mgIndications:COPD, mild (HCC) 2.5 mg NEBULIZER PRN 10/11/2022 Active documented as of this encounter (statuses as of 09/11/2023) Active Problems Problem Noted Date Diagnosed Date [...] as of this encounter (statuses as of 09/11/2023) Resolved Problems Problem Noted Date Diagnosed Date Resolved Date Chronic kidney disease, stage 3a 10/08/2022 03/01/2023 Overview: Per CKD protocol Substance abuse 05/25/2022 03/01/2023 Thrombocytopenia 05/25/2022 09/06/2023 Food insecurity 03/06/2021 01/11/2022 Overview: Per [facility] Protocol documented as of this encounter (statuses as of 09/11/2023) Immunizations Name Administration Dates Next Due Pneumococcal [...] Description 09/19/2023 10:15 AM EST Imaging Radiology [facility] [address] [place] [address] 11/04/2023 9:00 AM EDT Imaging Radiology [address], [place] 132 [facility] [place] [address] Health Maintenance Due Date Last Done Comments [...] this encounter Medical Devices Implanted Type Area Table Games Dealer Device Identifier Shelf Expiration Date Model / Serial / Lot Accolade Ii 127 Deg 4 - [id number] Implanted:Qty: 1 on 12/05/2020 by Rodolfo Park DO at OR [facility] Right: Hip KANDICE : ORTHOPAEDICS 11/07/2025 [id number] / / [id number] documented as of this encounter Procedures Procedure Name Priority Date/Time Associated Diagnosis Comments RADIOLOGY EXAM - GENERAL RAD (IMAGES ONLY,NO REPORT) Routine 08/23/2023 9:30 AM EST documented in this encounter Results * RADIOLOGY EXAM - GENERAL RAD (IMAGES ONLY,NO REPORT) (08/23/2023 9:30 AM EST) 08/23/2023 9:26 AM EST Narrative Scheduling, Silent - 09/11/2023 5:47 PM EST This is an imaging study not interpreted or resulted by a [employer] Experienceer or [employer] contracted radiologist. Roseann Plummer MD RADIOLOGY (RAD [...] the patient have Health Care Power of Pilates Coordinator? Yes, not currently available Care Teams Transformation Manager Relationship Specialty Start Date End Date Roseann Plummer MD [address] [facility] [place] [address] PCP - General Internal Medicine 11/05/22 documented as of this encounter
--- OUTSIDE RECORDS SUMMARY | 2023-11-20 23:45 | External Medical Summary | Summary of Care ---
Author Name Unknown Organization [facility] Address [address] [place] [address] Phone [phone] Care Team Providers Care Leather Coater Name Role Phone Roseann Plummer MD Primary Care Provider Reason for Visit * Reason Onset Date Comments Test Results 09/09/2023 Encounter Details Date Type Department Care Team ([facility] st Contact Info) Description 09/09/2023 Telephone Family Practice [facility] [address] [facility] [address] Roseann Plummer MD [address] [facility], [place] [id number] Test Results Allergies Active Allergy Reactions Criticality [...] MG/24HR Transdermal Patch 24 Hour (Nicoderm CQ)Indications:Toba global account director use disorder APPLY 1 PATCH TOPICALLY DAILY [...] MG/24HR Transdermal Patch 24 Hour (Nicoderm CQ)Indications:Toba global account director use disorder Place 1 Patch over 24 [...] Telephone Encounter - Roseann Plummer MD - 09/09/2023 9:12 AM EST Ferritin elevation likely due to recent infection. Serum iron and transferrin satuation still on low side, and lower than one year ago. Would not discontinue iron at this point. * Telephone Encounter - Lisa Seymour [facility] - 09/09/2023 6:31 AM EST Results for [...] [facility]acy Services ([facility]) (formerly Telepharmacy) [phone] 09/09/2023, 6:32 AM documented in this encounter Plan of Treatment Upcoming Encounters Date Type Department Care Team (Late st Contact Info) Description 11/04/2023 9:00 AM EDT Imaging Radiology [address] [place] [address] Health Maintenance Due [...] Test 04/25/2024 04/25/2023, 04/25 GFR 09/06/2024 09/06/2023, 04/1 03/2023, 10/09/2022, Additional history exists O2 ASSESSMENT COMPLETED [...] this encounter Medical Devices Implanted Type Area Premix Concrete Batcher Device Identifier Shelf Expiration Date Model / Serial / Lot Accolade Ii 127 Deg Sz 4 - [id number] Implanted:Qty: 1 on 12/05/2020 by Rodolfo Park, at OR [facility] Right: Hip KANDICE : ORTHOPAEDICS 11/07/2025 [id number] / / [id number] documented as of this encounter Advance Directives [...] the patient have Health Care Power of Electrostatic Painter? Yes, not currently available Care Teams Leather Coater Relationship Specialty Start Date End Date Roseann Plummer MD [address] [place] [address] PCP - General Internal Medicine 11/05/22 documented as of this encounter
--- OUTSIDE RECORDS SUMMARY | 2023-11-20 23:45 | External Medical Summary | Summary of Care ---
Author Name Unknown Organization [facility] Address [address] [place] [address] Phone [phone] Care Team Providers Care Supervisor Beehive Kiln Name Role Phone Roseann Plummer MD Primary Care Provider Reason for Visit * Reason Onset Date Comments Medication Pre-auth 09/11/2023 Nicorette lo zenge Encounter Details Date Type Department Care Team ([facility] st Contact Info) Description 09/11/2023 Telephone Family Practice [facility] [address] [place] [address] Roseann Plummer MD [address] [place] [address] Medication Pre-auth (Nicorette lozenge/) Allergies Active Allergy Reactions Criticality Noted Date [...] MG/24HR Transdermal Patch 24 Hour (Nicoderm CQ)Indications:Toba group account director use disorder APPLY 1 PATCH [...] MG/24HR Transdermal Patch 24 Hour (Nicoderm CQ)Indications:Toba group account director use disorder Place 1 Patch [...] encounter Miscellaneous Notes * Telephone Encounter - Leilani Helms CPhT - 09/11/2023 8:27 AM EST Patients insurance would like to inform the office that Nicotine Polacrilex 2 MG Mouth/Throat Lozenge (Nicorette) is not requiring review because they have an NDC that is covered by insurance. Thank you, Sharon Helms Electric Locomotive Firer/Fireman I Centralized Clinical Pharmacy Services (Formerly Telepharmacy) 09/11/2023,8:28 AM * Telephone Encounter - Claudia Siu MED ASSIST - 09/11/2023 8:15 AM EST Prior auth for rosangela bell submitted on [employer]. Will await response. Prior Auth (EOC) ID: [id number] documented in this encounter Plan of Treatment Upcoming Encounters Date Type Department Care Team (Late st Contact Info) Description 11/04/2023 9:00 AM EDT Imaging Radiology [address], [address] [place] [address] Health Maintenance Due Date Last Done Comments [...] this encounter Medical Devices Implanted Type Area Center Receptionist Device Identifier Shelf Expiration Date Model / Serial / Lot Accolade Ii 127 Deg Sz 4 - [id number] Implanted:Qty: 1 on 12/05/2020 by Rodolfo Park, DO at OR [facility] Right: Hip KANDICE : ORTHOPAEDICS 11/07/2025 [id number] / / [id number] documented as of this encounter Advance Directives [...] have Health Care Power of Director Of Extension Work? Yes, not currently available Care Teams Supervisor Beehive Kiln Relationship Specialty Start Date End Date Roseann Plummer MD 132 [facility] [place] [address] PCP - General Internal Medicine 11/05/22 documented as of this encounter
--- OUTSIDE RECORDS SUMMARY | 2023-11-20 23:45 | External Medical Summary | Summary of Care ---
Author Name Unknown Organization [facility] Address [address] [place] [address] Phone [phone] Care Team Providers Care Gardening Manager Name Role Phone Roseann Plummer MD Primary Care Provider Reason for Visit * Reason Onset Date Comments Medication Refill 10/07/2023 Albuterol sul 0.63 mg/3ml tamiko Encounter Details Date Type Department Care Team (Late st Contact Info) Description 10/07/2023 Refill Pulmonary Medicine Brunilda Gutiérrez [address] [place] [phone] Huan Sanz MD [address] [place] [phone] Allergies Active Allergy Reactions Criticality Noted Date Comments Buspirone Rash 11/01/2022 documented as of this encounter (statuses as of 10/07/2023) Medications Medication Sig Dispensed Refills Start Date [...] of Breath. 360 mL 0 10/07/2023 Active Albuterol Sulfate 0.63 MG/3ML Inhalation Nebulization Solution (Accuneb) Inhale 1 Vial via nebulizer every 6 hours as needed for Wheezing or Shortness of Breath. 360 mL 0 09/03/2023 Discontinue d(Refill) Hospital, Clinic, or Other Facility Administered Medication Ordered Dose Route Frequency Start Date End Date Status Albuterol Sulfate (Proventil) (2.5 MG/3ML) 0.083% inhalation solution 2.5 mgIndications:COPD, mild (HCC) 2.5 mg NEBULIZER PRN 10/11/2022 Active documented as of this encounter (statuses as of 10/07/2023) Active Problems Problem Noted Date Diagnosed Date [...] as of this encounter (statuses as of 10/07/2023) Resolved Problems Problem Noted Date Diagnosed Date Resolved Date Chronic kidney disease, stage 3a 10/08/2022 03/01/2023 Overview: Per CKD protocol Substance abuse 05/25/2022 03/01/2023 Thrombocytopenia 05/25/2022 09/06/2023 Food insecurity 03/06/2021 01/11/2022 Overview: Per [facility] Protocol documented as of this encounter (statuses as of 10/07/2023) Immunizations Name Administration Dates Next Due Pneumococcal [...] encounter Miscellaneous Notes * Telephone Encounter - Huan Sanz MD - 10/07/2023 4:22 PM EDT Signed Prescriptions: Disp Refills Albuterol Sulfate 0.63 MG/3ML Inhalation N*360 mL 0 Sig: Inhale 1 Vial via nebulizer every 6 hours as needed for Wheezing or Shortness of Breath.Authorizing Provider: HUAN SANZ documented in this encounter Plan of Treatment Upcoming Encounters Date Type Department Care Team (Late st Contact Info) Description 11/04/2023 9:00 AM EDT Imaging Radiology [address], [place] [address] [place] [address] Health Maintenance Due Date Last Done Comments [...] encounter Medical Devices Implanted Type Area Physical Trainer Device Identifier Shelf Expiration Date Model / Serial / Lot Shell Acet Trident Ii 50mm - [id number] Implanted:Qty: 1 on 12/05/2020 by Rodolfo Park DO at OR [facility] Right: Hip KANDICE : ORTHOPAEDICS 09/04/2024 702-04-50D / / [id number] Trident Acetabular X3 0 36 D - [id number] Implanted:Qty: 1 on 12/05/2020 by Rodolfo Park DO at OR [facility] Right: Hip KANDICE : ORTHOPAEDICS 09/14/2025 723-00-36D / / [id number] Hip Hd Perry Hummel 36/ 25 - [id number] Implanted:Qty: 1 on 12/05/2020 by Rodolfo Park DO at OR [facility] Right: Hip KANDICE : ORTHOPAEDICS 10/03/2025 [id number] / / [id number] Accolade Ii 127 Deg Sz 4 - [id number] Implanted:Qty: 1 on 12/05/2020 by Rodolfo Park DO at OR [facility] Right: Hip KANDICE : ORTHOPAEDICS 11/07/2025 [id number] / / [id number] documented as of this encounter Advance Directives [...] the patient have Health Care Power of Active Directory Specialist? Yes, not currently available Care Teams Gardening Manager Relationship Specialty Start Date End Date Roseann Plummer MD [address] [place] [address] PCP - General Internal Medicine 11/05/22 documented as of this encounter
--- OUTSIDE RECORDS SUMMARY | 2023-11-20 23:45 | External Medical Summary | Summary of Care ---
Author Name Unknown Organization [facility] Address [address] [place] [address] Phone [phone] Care Team Providers Care Marketing Area Manager Name Role Phone Moi Plummer MD Primary Care Provider Reason for Visit * Reason Onset Date Comments Medication Refill 12/20/2022 Encounter Details Date Type Department Care Team (Late st Contact Info) Description 12/20/[address] [facility] [address] [place] [address] Bessy Culp DO [address] [place] [address] Iron deficiency anemia, unspecified iron deficiency anemia type* Allergies Active Allergy Reactions Criticality Noted Date Comments Buspirone Rash 11/01/2022 documented as of this encounter (statuses as of 09/07/2023) Medications Medication Sig Dispensed Refills Start Date End Date Status methADONE 10 MG Tablet Take 1 Tablet by mouth once. 100mg daily 0 Active Albuterol Sulfate HFA 108 (90 Base) MCG/ACT Inhalation Aerosol SolutionIndicati ons:Cough INHALE 2 PUFFS BY MOUTH EVERY 6 HOURS NEEDED FOR COUGH 18 g 5 3 Active amLODIPine Besylate 10 MG Oral Tablet (Norvasc)Indicat ions:HTN, goal below 130/80 Take by mouth 1 Tablet in the morning. 90 Tablet 3 2 05/03/20 23 Discontinued Metoprolol Succinate ER 25 MG Oral Tablet Extended Release 24 Hour (toPROL XL)Indications:H TN, goal below 130/80 take 1 tablet by mouth twice a day 180 Tablet 3 2 06/10/20 23 Discontinued Bisacodyl 5 MG Oral Tablet Delayed Release (Dulcolax) Take 1 Tablet by mouth daily as needed for Constipation. 0 03/07/20 23 Discontinued(Ref ill) DULoxetine HCl 30 MG Oral Capsule Delayed Release Particles (Cymbalta)Indica tions:Mood disorder (HCC) take 1 capsule by mouth every morning 30 Capsule 5 2 01/02/20 23 Discontinued Umeclidinium-Colette anterol 62.5-25 MCG/ACT Inhalation Aerosol Powder Breath Activated (ANORO ellipta)Indicati ons:COPD, mild (HCC) Inhale 1 Puff by mouth in the morning. 60 Blister Dosing Unit 11 3 09/06/19 24 Discontinued Furosemide 40 MG Oral Tablet (Lasix) Take 1 Tablet by mouth in the morning. 30 Tablet 0 3 12/21/19 23 Discontinued(Ref ill) Ferrous Gluconate 324 (38 Fe) MG Oral Tablet Take 1 Tablet by mouth daily with breakfast. 30 Tablet 0 3 12/21/19 23 Discontinued(Ref ill) Pantoprazole Sodium 40 MG Oral Tablet Delayed Release (Protonix) Take 1 Tablet by mouth in the morning. 30 Tablet 0 3 12/21/19 23 Discontinued(Ref ill) Potassium Chloride Mayda ER 10 MEQ Oral Tablet Extended Release Take 1 Tablet by mouth in the morning. 30 Tablet 0 3 12/21/19 23 Discontinued(Ref ill) Apixaban 5 MG Oral Tablet (Eliquis) Take 1 Tablet by mouth in the morning and 1 Tablet before bedtime. 60 Tablet 0 3 12/21/19 23 Discontinued(Ref ill) RA Vitamin B-12 100 MCG Oral Tablet (Cyanocobalamin) TAKE 1 TABLET BY MOUTH EVERY MORNING 30 Tablet 5 3 01/19/20 23 Discontinued(Ref ill) clonazePAM 0.5 MG Oral Tablet (KlonoPIN)Indica tions:Situationa l anxiety Take 1 tablet by mouth 45-60 minutes before medical procedure or test. Do not drive or mix with alcohol. 2 Tablet 0 3 06/10/20 23 Discontinued Nicotine 21 MG/24HR Transdermal Patch 24 Hour [...] Patch 3 3 03/18/20 23 Discontinued(Ref ill) Furosemide 40 MG Oral Tablet (Lasix) Take 1 Tablet by mouth in the morning. 30 Tablet 0 3 01/19/20 23 Discontinued(Ref ill) Ferrous Gluconate 324 (38 Fe) MG Oral Tablet Take 1 Tablet by mouth daily with breakfast. 30 Tablet 0 3 01/19/20 23 Discontinued(Ref ill) Pantoprazole Sodium 40 MG Oral Tablet Delayed Release (Protonix) Take 1 Tablet by mouth in the morning. 30 Tablet 0 3 01/19/20 23 Discontinued(Ref ill) Potassium Chloride Mayda ER 10 MEQ Oral Tablet Extended Release Take 1 Tablet by mouth in the morning. 30 Tablet 0 3 01/19/20 23 Discontinued(Ref ill) Apixaban 5 MG Oral Tablet (Eliquis) Take 1 Tablet by mouth in the morning and 1 Tablet before bedtime. 60 Tablet 0 3 01/19/20 Discontinued(Ref ill) Hospital, Clinic, or Other Facility Administered Medication Ordered Dose Route Frequency Start Date End Date Status Albuterol Sulfate (Proventil) (2.5 MG/3ML) 0.083% inhalation solution 2.5 mgIndications:COPD, mild (HCC) 2.5 mg NEBULIZER PRN 10/11/2022 Active documented as of this encounter (statuses as of 09/07/2023) Active Problems Problem Noted Date Diagnosed Date [...] as of this encounter (statuses as of 09/07/2023) Resolved Problems Problem Noted Date Diagnosed Date Resolved Date Chronic kidney disease, stage 3a 10/08/2022 03/01/2023 Overview: Per CKD protocol Substance abuse 05/25/2022 03/01/2023 Thrombocytopenia 05/25/2022 09/06/2023 Food insecurity 03/06/2021 01/11/2022 Overview: Per [facility] Protocol documented as of this encounter (statuses as of 09/07/2023) Immunizations Name Administration Dates Next Due Pneumococcal [...] as of this encounter Miscellaneous Notes * Addendum Note - Susan Hernandez, [facility] - 09/07/2023 8:20 PM ESTAddended by: SUSAN HERNANDEZ on: 09/07/2023 08:20 PM Modules accepted: Orders * Telephone Encounter - Moi Plummer MD - 12/21/2022 9:54 AM EDT Signed Prescriptions: Disp Refills Furosemide 40 MG Oral Tablet (Lasix) 30 Tab*0 Sig: Take 1 Tablet by mouth in the morning. Authorizing Provider: MOI PLUMMER Ferrous Gluconate 324 (38 Fe) MG Oral Tabl*30 Tab*0 Sig: Take 1 Tablet by mouth daily with breakfast. Authorizing Provider: MOI PLUMMER Pantoprazole Sodium 40 MG Oral Tablet Gaby*30 Tab*0 Sig: Take 1 Tablet by mouth in the morning. Authorizing Provider: MOI PLUMMER Ordering User: SUSAN HERNANDEZ Potassium Chloride Mayda ER 10 MEQ Oral Tab*30 Tab*0 Sig: Take 1 Tablet by mouth in the morning. Authorizing Provider: MOI PLUMMER Ordering User: SUSAN HERNANDEZ Apixaban 5 MG Oral Tablet (Eliquis) 60 Tab*0 Sig: Take 1 Tablet by mouth in the mor melecio and 1 Tablet before bedtime. Authorizing Provider: MOI PLUMMER Ordering User: SUSAN HERNANDEZ * Telephone Encounter - Susan Hernandez [facility] - 12/21/2022 7:24 AM EDTPending Prescriptions: Disp Refills Furosemide 40 MG Oral Tablet (Lasix) 30 Tab*0 Sig: Take 1 Tablet by mouth in the morning. Ferrous Gluconate 324 (38 Fe) MG Oral Tabl*30 Tab*0 Sig: Take 1 Tablet by mouth daily with breakfast. Signed Prescriptions: Disp Refills Pantoprazole Sodium 40 MG Oral Tablet Gaby*30 Tab*0 Sig: Take 1 Tablet by mouth in the morning. Authorizing Provider: MOI PLUMMER Ordering User: SUSAN HERNANDEZ Potassium Chloride Mayda ER 10 MEQ Oral Tab*30 Tab*0 Sig: Take 1 Tablet by mouth in the morning. Authorizing Provider: MOI PLUMMER Ordering User: SUSAN HERNANDEZ Apixaban 5 MG Oral Tablet (Eliquis) 60 Tab*0 Sig: Take 1 Tablet by mouth in the morning and 1 Tablet b efore bedtime. Authorizing Provider: MOI PLUMMER Ordering User: SUSAN HERNANDEZ * Telephone Encounter - Susan Hernandez RPh - 12/21/2022 7:17 AM EDT Potassium Results: Lab Results Component Value Date/Time POTASSIUM-OUTSIDE LAB 3.3 (A) 10/09/2022 12:00 AM Unable to authorize medication refills for pended medication(s) at this time. Part of the protocol criteria used for refill authorization was not satisfied. Furosemide: Patient's potassium is below protocol parameters. Please approve if appropriate. Ferrous Gluconate: Patient's HGB and HCT are elevated, iron studies are WNR and Ferritin is not on file. Ferritin ordered. Please approve if continuation of supplement is appropriate. Providing 30 day supply with 0 refills on Potassium, Eliquis and Pantoprazole until upcoming OV on 01/01/2023. Thank you, Susan Hernandez, PharmD Clinical Pharmacist [facility] [phone] 12/21/2022, 7:19 AM documented in this encounter Plan of Treatment Upcoming Encounters Date Type Department Care Team (Late st Contact Info) Description 11/04/2023 9:00 AM EDT Imaging Radiology [address] [place] [address] Scheduled Orders Name Type Priority Associated Diagnoses Orde r Schedule IRON SCREEN, INCLUDING TIBC Lab Routine Iron deficiency anemia, unspecified iron deficiency anemia type Expected: 09/07/2023 (Approximate), Expires: 09/07/2024 Health Maintenance Due Date Last Done Comments [...] this encounter Medical Devices Implanted Type Area Storage Battery Inspector And Tester Device Identifier Shelf Expiration Date Model / Serial / Lot Accolade Ii 127 Deg 4 - [id number] Implanted:Qty: 1 on 12/05/2020 by Rodolfo Park, DO at OR [facility] Right: Hip KANDICE : ORTHOPAEDICS 11/07/2025 [id number] / / [id number] documented as of this encounter Results * (ABNORMAL) FERRITIN (09/06/2023 12:10 PM EST) Ferritin 344(H) 13 - 150 ng/mL 09/06/2023 7:23 PM EST LAB[facility]ATORY [facility] Comment:Postmenopausal women have higher ferritin levels than pre-menopausal women. The above reference interval is based on pre-menopausal women. Blood Venous blood specimen / Unknown Venipuncture / Unknown 09/06/2023 12:10 PM EST 09/06/2023 12:11 PM EST Susan Hernandez [facility] LAB BLOOD ORDERABL ES LABORATORY [facility] [address] [facility] [place] [address] documented in this encounter Visit Diagnoses Diagnosis Iron deficiency anemia, unspecified iron deficiency anemia type- Primary documented in this encounter Advance Directives [...] the patient have Health Care Power of Microsoft Office Instructor? Yes, not currently available Care Teams Marketing Area Manager Relationship Specialty Start Date End Date Moi Plummer MD [address] [place] [address] PCP - General Internal Medicine 11/05/22 documented as of this encounter
--- OUTSIDE RECORDS SUMMARY | 2023-11-20 23:45 | External Medical Summary | Summary of Care ---
Author Name Unknown Organization [facility] Address [address] [place] [address] Phone [phone] Care Team Providers Care Supervisor Maple Products Name Role Phone Roseann Plummer MD Primary Care Provider Reason for Visit * Reason Onset Date Comments Medication Refill 09/18/2023 Encounter Details Date Type Department Care Team (Late st Contact Info) Description 09/18/2023 Refill Family Practice [facility] [address] [place] [address] Roseann Plummer MD [address] [place] [address] Rash and nonspecific skin eruption Allergies Active [...] Description 09/19/2023 10:15 AM EST Imaging Radiology [address] [place] [address] 11/04/2023 9:00 AM EDT Imaging Radiology [address] [place] [address] Health Maintenance Due Date Last Done Comments [...] encounter Medical Devices Implanted Type Area Supervisor Advice Device Identifier Shelf Expiration Date Model / Serial / Lot Shell Acet Trident Ii 50mm - [id number] Implanted:Qty: 1 on 12/05/2020 by Rodolfo Park DO at OR [facility] Right: Hip KANDICE : ORTHOPAEDICS 09/04/2024 702-04-50D / / [id number] Trident Acetabular X3 0 36 D - [id number] Implanted:Qty: 1 on 12/05/2020 by Rodolfo Park DO at OR [facility] Right: Hip KANDICE : ORTHOPAEDICS 09/14/2025 723-00-36D / / [id number] Hip Hd Nk Alumina Md D 36/ 25 - [id number] Implanted:Qty: 1 on 12/05/2020 by Rodolfo Park DO at OR [facility] Right: Hip KANDICE : ORTHOPAEDICS 10/03/2025 6570-0-436 / / [id number] Accolade Ii 127 Deg Sz 4 - [id number] Implanted:Qty: 1 on 12/05/2020 by Rodolfo Park DO at OR [facility] Right: Hip KANDICE : ORTHOPAEDICS 11/07/2025 [id number] / / [id number] documented as of this encounter Visit Diagnoses [...] the patient have Health Care Power of Pouncer? Yes, not currently available Care Teams Supervisor [employer] Products Relationship Specialty Start Date End Date Roseann Plummer MD [address] [place] [address] PCP - General Internal Medicine 11/05/22 documented as of this encounter
--- OUTSIDE RECORDS SUMMARY | 2023-11-20 23:45 | External Medical Summary | Summary of Care ---
Author Name Unknown Organization [facility] Address [address] [place] [address] Phone [phone] Care Team Providers Care General Superintendent Name Role Phone Roseann Plummer MD Primary Care Provider Encounter Details Date Type Department Care Team (Latest Contact Info) Description 08/23/2023 9:30 AM EST - 08/23/2023 11:59 PM EST Hospital Encounter Radiology Film File [address] [place] [address] Discharge Disposition: Home - Self [...] with breakfast. 30 Tablet 2 07/31/2023 Active Naftifine HCl 2 % External CreamIndications: Rash and nonspecific skin eruption Apply topically to affected area daily. Apply to rash on thighs, buttocks, hands. 45 g 1 05/15/2023 09/11/2023 Discontinue d(Refill) Hospital, Clinic, or Other Facility [...] Description 09/19/2023 10:15 AM EST Imaging Radiology [address] [place] [address] 11/04/2023 9:00 AM EDT Imaging Radiology [facility] [address] [place] [address] Health Maintenance Due [...] this encounter Medical Devices Implanted Type Area Telecommunications Clerk Device Identifier Shelf Expiration Date Model / Serial / Lot Accolade Ii 127 Deg Sz 4 - [id number] Implanted:Qty: 1 on 12/05/2020 by Rodolfo Park, at OR [facility] Right: Hip KANDICE : ORTHOPAEDICS 11/07/2025 [id number] / / [id number] documented as of this encounter Procedures Procedure [...] interpreted or resulted by a [facility] or [facility] contracted radiologist. Roseann Plummer MD RADIOLOGY (RAD [...] the patient have Health Care Power of Hospice Admitting Clerk? Yes, not currently available Care Teams General Superintendent Relationship Specialty Start Date End Date Roseann Plummer MD [address] [place] [address] [place] [id number] PCP - General Internal Medicine 11/05/22 documented as of this encounter
--- OUTSIDE RECORDS SUMMARY | 2023-11-20 23:46 | External Medical Summary | Summary of Care ---
Author Name Unknown Organization [facility] Address [address] [place] [address] Phone [phone] Care Team Providers Care Us Administrative Law Judge Name Role Phone Roseann Plummer MD Primary Care Provider Reason for Visit * Reason Comments Outpatient Testing Encounter Details Date Type Department Care Team (Late st Contact Info) Description 09/06/2023 12:20 PM EST Laboratory Laboratory, [facility] [address] [place] [address] [facility] [address] [place] [address] Iron deficiency anemia, unspecified iron deficiency anemia type; Chronic kidney disease, stage 3a ([facility]); Elevated hemoglobin ([facility]); KARLA (acute kidney injury) ([facility]); Hyponatremia; Hypokalemia Allergies Active Allergy Reactions Criticality Noted Date [...] MG/24HR Transdermal Patch 24 Hour (Nicoderm CQ)Indications:Toba digital account supervisor use disorder APPLY 1 PATCH TOPICALLY DAILY [...] MG/24HR Transdermal Patch 24 Hour (Nicoderm CQ)Indications:Toba digital account supervisor use disorder Place 1 Patch over 24 hours topically on the skin daily. 28 Patch 5 09/06/2023 Active Nicotine Polacrilex 2 MG Mouth/Throat Lozenge (Nicorette)Indicati ons:Tobacco use disorder Administer 1 Lozenge to inside of cheek every 2 hours as needed for Other (nicotine craving). 24 Lozenge 11 09/06/2023 Active Fluconazole 150 MG Oral Tablet (Diflucan)Indicatio ns:Vaginal candidiasis Take 1 Tablet by mouth once for 1 dose. Repeat in 3-4 days if still having symptoms. 2 Tablet 0 09/06/2023 09/06/2023 Active Hospital, Clinic, or Other Facility [...] Description 11/04/2023 9:00 AM EDT Imaging Radiology [address] [place] [address] Pending Results Name Type Priority Associated Diagnoses Date /Time FERRITIN Lab Routine Iron deficiency anemia, unspecified iron deficiency anemia type 09/06/2023 12:10 PM EST PHOSPHORUS Lab Routine Chronic kidney disease, stage 3a (HCC) 09/06/2023 12:10 PM EST COMPREHENSIVE METABOLIC PANEL Lab Routine KARLA (acute kidney injury) (HCC) 09/06/2023 12:10 PM EST MAGNESIUM Lab Routine Hyponatremia Hypokalemia 09/06/2023 12:10 PM EST Health Maintenance Due Date Last Done Comments [...] 11/15/2023 11/14/2022, 09/26, 09/28/2022, Additional history exists Colorectal Cancer Screening 04/25/2024 Fecal Occult Blood Test 04/25/2024 04/25/2023, 04/25 O2 ASSESSMENT COMPLETED IN PAST YEAR FOR COPD 09/06/2024 09/06/2023 Albumin/Creatinine Ratio 04/26/2025 04/26/2022 Diabetes Screening 10/09/2025 [...] this encounter Medical Devices Implanted Type Area Investigator Operator Device Identifier Shelf Expiration Date Model / Serial / Lot Feliberto Day 127 Deg 4 - [id number] Implanted:Qty: 1 on 12/05/2020 by Rodolfo Park DO at OR [facility] Right: Hip KANDICE : ORTHOPAEDICS 11/07/2025 [id number] / / [id number] documented as of this encounter Procedures Procedure Name Priority Date/Time Associated Diagnosis Comments CBC Routine 09/06/2023 12:10 PM EST Elevated hemoglobin (HCC) documented in this encounter Results * (ABNORMAL) CBC (09/06/2023 12:10 PM EST) WBC 15.66(H) 4.00 - 10.80 K/uL 09/06/2023 12:18 PM EST [facility] RBC 3.70 3.85 - 5.15 M/uL 09/06/2023 12:18 PM EST [facility] HGB 12.3 12.0 - 15.3 g/dL 09/06/2023 12:18 PM EST [facility] HCT 38.1 36.0 - 45.2 % 09/06/2023 12:18 PM EST [facility] MCV 103.0 81.5 - 97.5 fL [...] PM EST Roseann Plummer MD LAB BLOOD [facility] Organization Address City/State/ZIP Co de Phone Number [facility] [place] [phone] [place] [address] documented in this encounter Visit Diagnoses Diagnosis Iron deficiency anemia, unspecified iron deficiency anemia type Chronic kidney disease, stage 3a (HCC) Elevated hemoglobin (HCC) Other hemoglobinopathies KARLA (acute kidney injury) (HCC) Acute kidney failure, unspecified Hyponatremia Hyposmolality and/or hyponatremia Hypokalemia Hypopotassemia documented in this encounter Advance Directives Latest [...] the patient have Health Care Power of Administrative Project Coordinator? Yes, not currently available Care Teams Us Administrative Law Judge Relationship Specialty Start Date End Date Roseann Plummer MD [address] [place] [address] PCP - General Internal Medicine 11/05/22 documented as of this encounter
--- OUTSIDE RECORDS SUMMARY | 2023-11-20 23:46 | External Medical Summary | Summary of Care ---
Author Name Unknown Organization [facility] Address [address] [place] [address] Phone [phone] Care Team Providers Care Marking Clerk Name Role Phone Roseann Plummer MD Primary Care Provider Reason for Visit * Reason Onset Date Comments Order Request 09/05/2023 Encounter Details Date Type Department Care Team ([facility] st Contact Info) Description 09/05/2023 Telephone Access Center, [place] [address] [facility] *DO NOT REMOVE THIS DEPARTMENT* [place] [address] Services, Scheduling [address] [place] [address] Order Request Allergies Active Allergy Reactions Criticality Noted Date Comments Buspirone Rash 11/01/2022 documented as of this encounter (statuses as of 09/05/2023) Medications Medication Sig Dispensed Refills Start Date [...] as directed 1 Each 3 09/03/2023 Active Hospital, Clinic, or Other Facility Administered Medication Ordered Dose Route Frequency Start Date End Date Status Albuterol Sulfate (Proventil) (2.5 MG/3ML) 0.083% inhalation solution 2.5 mgIndications:COPD, mild (HCC) 2.5 mg NEBULIZER PRN 10/11/2022 Active documented as of this encounter (statuses as of 09/05/2023) Active Problems Problem Noted Date Diagnosed Date [...] as of this encounter (statuses as of 09/05/2023) Resolved Problems Problem Noted Date Diagnosed Date Resolved Date Chronic kidney disease, stage 3a 10/08/2022 03/01/2023 Overview: Per CKD protocol Substance abuse 05/25/2022 03/01/2023 Food insecurity 03/06/2021 01/11/2022 Overview: Per [facility] Protocol documented as of this encounter (statuses as of 09/05/2023) Immunizations Name Administration Dates Next Due Pneumococcal [...] encounter Miscellaneous Notes * Telephone Encounter - Rowan Randall OSA - 09/05/2023 8:50 AM EST Pt called in stating that during previous appt with Dr. Branham a nebulizer was prescribed. Pt states that she was provided with a copy of the script to take to [facility] to merchandise pickup/receiving associate a starter kit. Perpt [facility] only has the solution for the nebulizer available not the entire starter kit. Pt states she would like the order for the Nebulizer to be sent to [facility]. If office has any questions please reach out to patient directly. She is requesting a call once theorders have been sent. Thank you! documented in this encounter Plan of Treatment Upcoming Encounters Date Type Department Care Team (Late st Contact Info) Description 09/06/2023 11:00 AM EST Office Visit Family Practice [facility] [address] [place] [address] Roseann Plummer MD [address] [place] [address] 09/06/2023 1:45 PM EST Imaging Radiology [address], [place] [address] [place] [address] 11/04/2023 9:00 AM EDT Imaging Radiology [address] [place] [address] Health Maintenance Due [...] ASSESSMENT COMPLETED IN PAST YEAR FOR COPD 09/03/2024 09/03/2023 Albumin/Creatinine Ratio 04/26/2025 04/26/2022 Diabetes Screening 10/09/2025 [...] this encounter Medical Devices Implanted Type Area Incubator Operator Device Identifier Shelf Expiration Date Model / Serial / Lot Accolade Ii 127 Deg Sz 4 - [id number] Implanted:Qty: 1 on 12/05/2020 by Rodolfo Park, at OR [facility] Right: Hip KANDICE : ORTHOPAEDICS 11/07/2025 [id number] / / [id number] documented as of this encounter Advance Directives [...] the patient have Health Care Power of Drift Miner? Yes, not currently available Care Teams Marking Clerk Relationship Specialty Start Date End Date Roseann Plummer MD [address] [place] [address] PCP - General Internal Medicine 11/05/22 documented as of this encounter
--- OUTSIDE RECORDS SUMMARY | 2023-11-20 23:46 | External Medical Summary | Summary of Care ---
Author Name Unknown Organization [facility] Address [address] [place] [address] Phone [phone] Care Team Providers Care Poiser Balance Name Role Phone Roseann Plummer MD Primary Care Provider Reason for Visit * Reason Onset Date Comments Medication Refill 09/03/2023 Encounter Details Date Type Department Care Team (Late st Contact Info) Description 09/03/2023 Refill Family Practice [facility] [address] [employer] [place] [address] Roseann Plummer MD [address] [place] [address] Situational anxiety Allergies Active Allergy Reactions Criticality Noted Date Comments Buspirone Rash 11/01/2022 documented as of this encounter (statuses as of 09/04/2023) Medications Medication Sig Dispensed Refills Start Date [...] Shortness of Breath. 360 mL 0 09/03/2023 4 Active Full Kit Nebulizer Set Use with Nebulizer Medication three times daily as directed 1 Each 3 09/03/2023 Active diazePAM 5 MG Oral Tablet (Valium)Indication s:Situational anxiety Take 1 tab by mouth 45-[address] scan. Do not mix with alcohol. Do not drive. 4 Tablet 0 06/10/2023 Discontinue d(Refill) Hospital, Clinic, or Other Facility Administered Medication Ordered Dose Route Frequency Start Date End Date Status Albuterol Sulfate (Proventil) (2.5 MG/3ML) 0.083% inhalation solution 2.5 mgIndications:COPD, mild (HCC) 2.5 mg NEBULIZER PRN 10/11/2022 Active documented as of this encounter (statuses as of 09/04/2023) Active Problems Problem Noted Date Diagnosed Date [...] as of this encounter (statuses as of 09/04/2023) Resolved Problems Problem Noted Date Diagnosed Date Resolved Date Chronic kidney disease, stage 3a 10/08/2022 03/01/2023 Overview: Per CKD protocol Substance abuse 05/25/2022 03/01/2023 Food insecurity 03/06/2021 01/11/2022 Overview: Per [facility] Protocol documented as of this encounter (statuses as of 09/04/2023) Immunizations Name Administration Dates Next Due Pneumococcal [...] Telephone Encounter - Roseann Plummer MD - 09/04/2023 6:06 PM EST Signed Prescriptions: Disp Refills diazePAM 5 MG Oral Tablet (Valium) 2 Tabl*0 Sig: Take 1 tab by mouth 45-[address] scan. Do not mix with alcohol. Do not drive.Authorizing Provider: ROSEANN PLUMMER * Telephone Encounter - Roseann Plummer MD - 09/04/2023 6:06 PM EST Update noted, Rx sent, will discuss on Saturday. * Telephone Encounter - Claudia Siu MED ASSIST - 09/04/2023 1:00 PM EST Pending Prescriptions: Disp Refills diazePAM 5 MG Oral Tablet (Valium) 4 Tabl*0 Sig: Take 1 tab by mouth 45-[address] scan. Do not mix with alcohol. Do not drive. * Telephone Encounter - Claudia Siu MED ASSIST - 09/04/2023 12:54 PM EST Pt stopped heavy drinking 2 months ago. She was drinking 3-4 cans of mixed drinks per day. She is drinking 1-2 per week now. No chest pain., no hallucinations. Intermittent racing of her heart but she just got off Prednisone. She states she was requesting the Diazepam to take before upcoming CT scan. She is on her day without a cigarette. Also states she can discuss all of this with you on Saturday. * Telephone Encounter - Roseann Plummer MD - 09/04/2023 12:41 PM EST Pending Prescriptions: Disp Refills diazePAM 5 MG Oral Tablet (Valium) 4 Tabl*0 Sig: Take 1 tab by mouth 45-[address]. Do not mix with alcohol. Do not drive. * Telephone Encounter - Roseann Plummer MD - 09/04/2023 12:40 PM EST Please get more information from patient. When did she stopped drinking alcohol? How much was she drinking previously? Any hallucinations? Chest pain? Racing heart? * Telephone Encounter - Magda Yañez [facility] - 09/04/2023 5:57 AM EST Pending Prescriptions: Disp Refills diazePAM 5 MG Oral Tablet (Valium) 4 Tabl*0 Sig: Take 1 tab by mouth 45-[address] Do not mix with alcohol. Do not drive. * Telephone Encounter - Magda Yañze [facility] - 09/04/2023 5:56 AM EST I have reviewed the patients controlled substance dispensing history in the Prescription Drug Monitoring Program in compliance with the [facility] regulations before prescribing a controlled substance. PDMP checked on 09/04/2023. Pending Prescriptions: Disp Refills diazePAM 5 MG Oral Tablet (Valium) 4 Tabl*0 Sig: Take 1 tab by mouth 45-[address] Do not mix with alcohol. Do not drive. Last Visit: 03/01/2023 (in office), Visit date not found (telemedicine) Next Visit: 09/06/2023 Date medication was last filled: 06/10 Date medication is due for refill: 06/14 Pharmacy: [facility] #[id number] Is this request for a controlled substance? Yes and Urine Drug Screen Not completed Toxicology results: No results found for this or any previous visit. Please approve if appropriate. Thank you, Magda Yañez, PharmD. Clinical Pharmacist [facility] ([facility]) (formerly Telepharmacy) 09/04/2023, 5:56 AM documented in this encounter Plan of Treatment Upcoming Encounters Date Type Department Care Team (Late st Contact Info) Description 09/06/2023 11:00 AM EST Office Visit Family Practice [facility] [address] [facility] [place] [address] Roseann Plummer MD [address] [facility] [place] [address] 09/06/2023 1:45 PM EST Imaging Radiology [address] [place] [address] 11/04/2023 9:00 AM EDT Imaging Radiology [address] [place] [address] Health Maintenance Due Date Last Done Comments [...] this encounter Medical Devices Implanted Type Area Fiberglass Roller Device Identifier Shelf Expiration Date Model / Serial / Lot Accolade Ii 127 Deg Sz 4 - [id number] Implanted:Qty: 1 on 12/05/2020 by Rodolfo Park, DO at OR [facility] Right: Hip KANDICE : ORTHOPAEDICS 11/07/2025 [id number] / / [id number] documented as of this encounter Visit Diagnoses [...] the patient have Health Care Power of Animal Breeder? Yes, not currently available Care Teams Poiser Balance Relationship Specialty Start Date End Date Roseann Plummer MD [address] [place] [address] PCP - General Internal Medicine 11/05/22 documented as of this encounter
--- OUTSIDE RECORDS SUMMARY | 2023-11-20 23:46 | External Medical Summary ---
Author Name Unknown Address Unknown Organization [id number]:[facility] [place] [address] Laboratory Report Ordering Provider Test Date Status TOMMY RPATER 09/06/2023 12:10:35 Final Observation Date Value Abnormality Reference (Units ) Status WBC, Total 09/06/2023 12:10:35 15.66 Above high normal 4 .00-10.80 (K/uL) Final RBC 09/06/2023 12:10:35 3.70 3.85-5.15 (M/uL) Final Hemoglobin 09/06/2023 12:10:35 12.3 12.0-15.3 (g/dL) Final HCT 09/06/2023 12:10:35 38.1 36.0-45.2 (%) Final MCV 09/06/2023 12:10:35 103.0 81.5-97.5 (fL) Final MCH 09/06/2023 12:10:35 33.2 27.0-34.0 (pg) Final MCHC 09/06/2023 12:10:35 32.3 32.0-36.0 (g/dL) Final RDW 09/06/2023 12:10:35 12.5 11.5-15.5 (%) Final Platelets 09/06/2023 12:10:35 197 140-400 (K /uL) Final MPV 09/06/2023 12:10:35 10.2 6.6-11.1 ( fL) Final Performing Location [facility] [place] [address]
--- OUTSIDE RECORDS SUMMARY | 2023-11-20 23:46 | External Medical Summary ---
Author Name Unknown Address Unknown Organization K01:[facility] [address] [place] [address] Laboratory Report Ordering Provider Test Date Status TOMMY PRATER 09/06/2023 12:10:35 Final Observation Date Value Abnormality Reference (Units ) Status Magnesium 09/06/2023 12:10:35 2.3 1.5-2.6 (m g/dL) Final Performing Location [facility] - [address] [place] [address]
--- OUTSIDE RECORDS SUMMARY | 2023-11-20 23:46 | External Medical Summary | Summary of Care ---
Author Name Unknown Organization [facility] Address [address] [place] [address] Phone [phone] Care Team Providers Care Pan Pusher Name Role Phone Roseann Plummer MD Primary Care Provider Reason for Referral * Precert (Within 10 days (routine)) - Pending Review Specialty Diagnoses / Procedures Referred By Nasir serrano Referred To Contact Radiology Diagnoses Pulmonary nodules Procedures CT CHEST WO CONTRAST Huan Branham MD [address] [address] Referral ID Status Reason Start Date Expiration Date V isits Requested Visits Authorized [id number] Pending Review 10/02/2023 999 999 Reason for Visit * Reason Comments NEW PATIENT Encounter Details Date Type Department Care Team (Late st Contact Info) Description 09/03/2023 1:00 PM EST Office Visit Pulmonary Medicine, [address] [place] [address] Huan Branham MD [address] [address] Pulmonary nodules* Allergies Active Allergy Reactions Criticality Noted Date Comments Buspirone Rash 11/01/2022 documented as of this encounter (statuses as of 09/03/2023) Medications Medication Sig Dispensed Refills Start Date [...] as directed 1 Each 3 09/03/2023 Active Full Kit Nebulizer Set Use with Nebulizer Medication three times daily as directed 1 Each 3 09/03/2023 4 Discontinue d(Refill) Hospital, Clinic, or Other Facility Administered Medication Ordered Dose Route Frequency Start Date End Date Status Albuterol Sulfate (Proventil) (2.5 MG/3ML) 0.083% inhalation solution 2.5 mgIndications:COPD, mild (HCC) 2.5 mg NEBULIZER PRN 10/11/2022 Active documented as of this encounter (statuses as of 09/03/2023) Active Problems Problem Noted Date Diagnosed Date [...] as of this encounter (statuses as of 09/03/2023) Resolved Problems Problem Noted Date Diagnosed Date Resolved Date Chronic kidney disease, stage 3a 10/08/2022 03/01/2023 Overview: Per CKD protocol Substance abuse 05/25/2022 03/01/2023 Food insecurity 03/06/2021 01/11/2022 Overview: Per [facility] Protocol documented as of this encounter (statuses as of 09/03/2023) Immunizations Name Administration Dates Next Due Pneumococcal [...] Sign Reading Time Taken Comments Blood Pressure 120/72 09/03/2023 12:44 PM EST Pulse 80 09/03/2023 12:44 PM EST Temperature 36.2 C (97.1 F) 09/03/2023 1 2:44 PM EST Respiratory Rate 22 09/03/2023 12:4 4 PM EST Oxygen Saturation 91% 09/03/2023 12: 45 PM EST O2 3LPM on demand, amb Inhaled Oxygen Concentration - - Weight 91.5 kg (201 lb 12.8 oz) 09/03/2023 12:44 PM EST Height 172.7 cm (5' 8") 09/03/2023 12:4 4 PM EST Body Mass Index 30.68 09/03/2023 12:44 PM EST documented in this encounter Functional Status [...] as of this encounter Progress Notes * Huan Branham MD - 09/03/2023 12:32 PM EST 09/03/2023 Pulmonary Medicine, [facility] [address] 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 Patient used to follow[facility]up at [facility]Dr Rubi in the past. Recently quit smoking, compliant with continuous 3 L nasal cannula oxygen. Completed prednisone taper and antibiotic therapy on discharge. Describes improving respiratory symptoms, compliant with home oxygen therapy and current bronchodilator regimen including Trelegy and rescue albuterol. Denies lower extremity edema. Physical examination significant for class 3 throat, scattered expiratory wheezing, minimal rhonchi, no dullness, regular cardiac rhythm and no evidence of volume overload along with nonlateralizing Neuro examination. Importance of maintaining nonsmoking status was discussed. Importance of avoiding secondhand smoke exposure was also discussed. We will proceed with follow-up CT scan chest within next 2 months to reassess post pneumonic resolution/improvement of lung parenchyma. Low-dose CT scan chest protocol will be continued. Albuterol nebulizer therapy was added for periodic use while at home. Importance of maintaining physical activity status was discussed. Pulmonary clinic follow-up in 8 weeks with follow-up CT scan chest. Patient was advised to contact the office with any change in respiratory symptoms status. CT Chest Without Contrast; 06/11/2023 Clinical indication: Solitary pulmonary nodule; COMPARISON: CT CAP WITH(Adult) 12/05/2022 4:27 PM FINDINGS: Lungs: Mild stable changes of emphysema. Again seen are scattered micro nodules less than6 mm in size, grossly stable. 6 mm nodule left upper lobe stable, series 10, image 50.Previously visualized pinpoint pulmonary micro nodules are stable compared to previous. Mild scarring and atelectasis at the lung bases. Evidence of previous granulomatous disease. Pleural spaces: Unremarkable. No pneumothorax. No pleural effusion. IMPRESSION: Stable small subcentimeter micro nodules. No active disease identified. Consider routine surveillance in 6-12 months to establish long-term stability. PFT 09/2022: Interpretation:Spirometry revealed moderate obstruction by ATS criteria. The moderate airflow obstruction would confirm a clinical impression of COPD. There was no significant bronchodilator response in FVC or FEV1. The TLC (total lung capacity) was normal. The RV and RV/TLC ratio were increased, which may reflect air trapping versus neuromuscular weakness versus suboptimal effort. Clinical correlation is recommended.The single breath carbon monoxide diffusion capacity corrected for hemoglobin was normal. Compared to the prior study on 04/27/2021, the FEV1 and FVC have not changed significantly.This interpretation has been electronically signed: RONDA BATES DO. 10/22/2022 01:33:00 PM Assessment Recent influenza viral illness COPD exacerbation Chronic hypoxic respiratory status Eighty-two pack-year smoker quit 2 weeks ago Hypertension GERD DJD Follow Up: Return in about 2 months (around 11/02/2023) for Clinic Visit. | For: Clinic Visit | Check-out note: COPD Recent Flu, [facility] admit 07/2023 x 5 days 3 L NC Oxygen [facility] Pulmonary f/u last year Hx of Pulmonary Nodules HTN GERD Current Rx: Trelegy + Rescue Albuterol LDCT protocol Plan: Repeat CT Chest 2 months Add Albuterol neb Q 4 PRN C/w Trelegy C/w LDCT Pulm clinic f/u 2 months Huan Branham MD Subjective CC: Chief Complaint Patient presents with NEW PATIENT HPI: Nursing Notes: Jesenia October Jerome, SWEETIE 09/03/23 1252 Addendum New pt referred for evaluation of recent hospitalization--parainfluenza, bacterial pneumonia, and sepsis. Interm History/Respiratory Symptoms Cough: occasional, cream-colored phlegm Hemoptysis: no Sinus Symptoms: congestion Hospitalizations: [facility] 08/23-08/27/23 ED Trips: 08/23/23 Triggers: exertion, dust, hot/humid weather, bitter cold weather Nocturnal: occasional cough, sleeps with head elevated CPAP/BiPAP/O2: O2 3LPM continuous Flu Vaccine: no Pneumovax: 2020 Prevnar: no COVID 19: no Mmrc Cat Question 08/30/2023 11:02 AM EST - Filed by Patient When do you become breathless? (1) I get short of breath when hurrying on level ground How frequently do you cough? (3) Do you have phlegm in your chest? (2) Is your chest tight? (3) How breathless do you become when walking up a hill or steps? (3) How limited are you doing activities at home? (3) How confident are you leaving home with your lung condition? (4) How soundly do you sleep? (4) How much energy do you have? (3) Total MMRC Score (range: 0 - 4) 1 Total CAT Score (range: 0 - 40) 25 Objective Filed Vitals: 09/03/23 1244 09/03/23 1245 BP: 120/72 Pulse: 80 Resp: 22 Temp: 36.2 C (97.1 F) TempSrc: Tympanic SpO2: 92% 91% Weight: 91.5 kg (201 lb 12.8 oz) Height: 1.727 m (5' 8") Exam: Const: No signs of acute distress present. Head/Face: Normal on inspection. Eyes: Conjunctivae clear. Pupils equal round and reactive to light. ENMT: Oropharynx: No erythema, exudate or masses. Posterior pharynx is normal. Neck: Supple and symmetric. Resp: Respiratory examination as outlined above CV: Rate is regular. Rhythm is regular. No heart murmur appreciated. Extremities: No edema of the lower limbs bilaterally. Abdomen: Positive bowel sounds. Palpation of the abdomen reveals softness, but no distension or tenderness. No palpable hepatosplenomegaly. Musculo: Walks with a normal gait. Skin: Skin is warm and dry. Neuro: Coordination normal. No involuntary movement. Psych: Patient's attitude is cooperative. Mood is normal. Affect is normal. Tests reviewed with the patient: CT CHEST WO CONTRAST Result Date: 06/12/2023 IMPRESSION: Stable small subcentimeter micro nodules. No active disease identified. Consider routine surveillance in 6-12 months to establish long-term stability. COMMENTS: In the absence of a history or active diagnosis of lung cancer, it is recommended that this patient with emphysema be evaluated for enrollment in a low dose CT lung cancer screening program. THIS DOCUMENT HAS BEEN ELECTRONICALLY SIGNED BY GENO GREGORY MD Available Radiologic data was reviewed by me in PACS. The images were shown to the patient and findings were discussed with the patient. HOME MEDICATIONS: Albuterol Sulfate 0.63 MG/3ML Inhalation Nebulization Solution (Accuneb) Full Kit Nebulizer Set oxygen IN GAS Nicotine 7 MG/24HR Transdermal Patch 24 Hour (Nicoderm CQ) Ferrous Gluconate 324 (38 Fe) MG Oral Tablet Metoprolol Succinate ER 25 MG Oral Tablet Extended Release 24 Hour (toPROL XL) Apixaban 5 MG Oral Tablet (Eliquis) Furosemide 40 MG Oral Tablet (Lasix) Naftifine HCl 2 % External Cream Pantoprazole Sodium 40 MG Oral Tablet Delayed Release (Protonix) Potassium Chloride Mayda ER 10 MEQ Oral Tablet Extended Release amLODIPine Besylate 10 MG Oral Tablet (Norvasc) Clobetasol Propionate 0.05 % External Cream (Temovate) Bisacodyl 5 MG Oral Tablet Delayed Release (Dulcolax) Tolnaftate 1 % External Cream DULoxetine HCl 30 MG Oral Capsule Delayed Release Particles (Cymbalta) Albuterol Sulfate HFA 108 (90 Base) MCG/ACT Inhalation Aerosol Solution Umeclidinium-Vilanterol 62.5-25 MCG/ACT Inhalation Aerosol Powder Breath Activated (ANORO ellipta) methADONE 10 MG Tablet diazePAM 5 MG Oral Tablet (Valium) Albuterol Sulfate (Proventil) (2.5 MG/3ML) 0.083% inhalation solution 2.5 mg ROS: No reported history of Hemoptysis, Hematemesis, Melena No reported history of Dysuria, Hematuria, Flank Pain No reported history of chronic headache, seizures No reported history of Fall or trauma . No reported history of recent change in weight or appetite. Past Medical History: Diagnosis Date CKD (chronic kidney disease) COPD (chronic obstructive pulmonary disease) (HCC) COPD, group C, by GOLD 2017 classification ([facility]) 10/09/2021 Per COPD GOLD Classification HTN, goal below 130/80 05/04/2020 Methadone use Nodule of right lung 05/25/2022 Obesity Pneumonia Pulmonary emboli (HCC) Recurrent major depressive disorder (HCC) 09/20/2021 Substance abuse (HCC) Thrombocytopenia (HCC) 05/25/2022 Tobacco use disorder 11/22/2020 Past Surgical History: Procedure Laterality Date TOTAL HIP REPLACEMENT & PROSTHESIS Right 12/05/2020 ROBOTIC ARTHROPLASTY TOTAL HIP performed by Rodolfo Park DO at OR [facility] Social History Socioeconomic History Marital status: Tobacco Use Smoking status: Former Packs/day: 2.00 Years: 41.00 Additional pack years: 0.00 Total pack years: 82.00 Types: Cigarettes, Vaporizer Start date: 1981 Quit date: 08/23/2023 Years since quittin.0 Smokeless tobacco: Never Vaping Use Vaping Use: Former Substance and Sexual Activity Alcohol use: Not Currently Drug use: Not Currently Types: Heroin Comment: currently on methadone Social History Narrative 1 dog in her home. No mold. Social Determinants of Health Food Insecurity: Food Insecurity Present (08/30/2023) Hunger Vital Sign Worried About Running Out of Food in the Last Year: Never true Ran Out of Food in the Last Year: Sometimes true Family History Problem Relation Age of Onset Other (Adenocarcinoma) Mother Unknown origin, in her 70s Brain tumor Mother Benign Other (Unknown to pt) Father Hypertension Sister Hypertension Sister (Half) Heart disease Sister (Half) Hypertension Brother (Half) Review of patient's allergies indicates: Allergen Reactions Buspar [Buspirone] Rash documented in this encounter Nursing Notes * Brandy Ba LPN - 09/03/2023 12:39 PM EST New pt referred for evaluation of recent hospitalization--parainfluenza, bacterial pneumonia, and sepsis. Interm History/Respiratory Symptoms Cough: occasional, cream-colored phlegm Hemoptysis: no Sinus Symptoms: congestion Hospitalizations: [facility] 08/23-08/27/23 ED Trips: 08/23/23 Triggers: exertion, dust, hot/humid weather, bitter cold weather Nocturnal: occasional cough, sleeps with head elevated CPAP/BiPAP/O2: O2 3LPM continuous Flu Vaccine: no Pneumovax: 2019 Prevnar: no COVID 19: no Mmrc Cat Question 08/30/2023 11:02 AM EST - Filed by Patient When do you become breathless? (1) I get short of breath when hurrying on level ground How frequently do you cough? (3) Do you have phlegm in your chest? (2) Is your chest tight? (3) How breathless do you become when walking up a hill or steps? (3) How limited are you doing activities at home? (3) How confident are you leaving home with your lung condition? (4) How soundly do you sleep? (4) How much energy do you have? (3) Total MMRC Score (range: 0 - 4) 1 Total CAT Score (range: 0 - 40) 25 documented in this encounter Plan of Treatment Upcoming Encounters Date Type Department Care Team (Late st Contact Info) Description 09/04/2023 11:45 AM EST Imaging Radiology [address] [facility] [place] [address] 09/06/2023 11:00 AM EST Office Visit Family Practice [facility] [address] [facility] [place] [address] Roseann Plummer MD 132 [facility] [place] [address] 11/04/2023 9:00 AM EDT Imaging Radiology [address] [place] [address] Scheduled Orders Name Type Priority Associated Diagnoses Orde r Schedule CT CHEST WO CONTRAST Medical Imaging Routine Pulmonary nodules Expected: 10/02/2023, Expires: 10/01/2024 Health Maintenance Due Date Last Done Comments [...] Fecal Occult Blood Test 04/25/2024 04/25/2023, 04/25 Albumin/Creatinine Ratio 04/26/2025 04/26/2022 Diabetes Screening 10/09/2025 [...] this encounter Medical Devices Implanted Type Area Cutter Operator Tile Device Identifier Shelf Expiration Date Model / Serial / Lot Accolade Ii 127 Deg Sz 4 - [id number] Implanted:Qty: 1 on 12/05/2020 by Rodolfo Park, DO at OR [facility] Right: Hip KANDICE : ORTHOPAEDICS 11/07/2025 [id number] / / [id number] documented as of this encounter Visit Diagnoses Diagnosis Pulmonary nodules- Primary Other nonspecific abnormal finding of [...] the patient have Health Care Power of Nursing Associate? Yes, not currently available Care Teams Pan Pusher Relationship Specialty Start Date End Date Roseann Plummer MD [address] [place] [address] PCP - General Internal Medicine 11/05/22 documented as of this encounter
--- OUTSIDE RECORDS SUMMARY | 2023-11-20 23:46 | External Medical Summary | Summary of Care ---
Author Name Unknown Organization [facility] Address [address] [place] [address] Phone [phone] Care Team Providers Care Scudding Inspector Name Role Phone Roseann Plummer MD Primary Care Provider Reason for Visit * Reason Onset Date Comments Order Request 09/05/2023 Encounter Details Date Type Department Care Team ([facility] st Contact Info) Description 09/05/2023 Telephone Access Center, [place] [address] [facility] *DO NOT REMOVE THIS DEPARTMENT* [place] [address] Services, Scheduling [address] [place] [address] Order Request Allergies Active Allergy Reactions Criticality [...] encounter Miscellaneous Notes * Telephone Encounter - Raven Koenig LPN - 09/05/2023 9:40 AM EST Order has been sent to . Pt aware * Telephone Encounter - Rowan Randall OSA - 09/05/2023 8:50 AM EST Pt called in stating that during previous appt with Dr. Branham a nebulizer was prescribed. Pt states that she was provided with a copy of the script to take to [facility] to black pickler a starter kit. Perpt [facility] only has the solution for the nebulizer available not the entire starter kit. Pt states she would like the order for the Nebulizer to be sent to [facility]. If office has any questions please reach out to patient directly. She is requesting a call once theorders have been sent. Thank you! documented in this encounter Plan of Treatment Upcoming Encounters Date Type Department Care Team (Late st Contact Info) Description 09/06/2023 11:00 AM EST Office Visit Family [facility] [address] [place] [address] Roseann Plummer MD [address] [place] [address] 09/06/2023 1:45 PM EST Imaging Radiology [address] [facility] [place] [address] 11/04/2023 9:00 AM EDT Imaging Radiology [address] [facility] [place] [address] Health Maintenance Due Date Last Done Comments [...] this encounter Medical Devices Implanted Type Area Poultry Farmer Device Identifier Shelf Expiration Date Model / Serial / Lot Accolade Ii 127 Deg Sz 4 - [id number] Implanted:Qty: 1 on 12/05/2020 by Rodolfo Park, DO at OR [facility] Right: Hip KANDICE : ORTHOPAEDICS 11/07/2025 [id number] / / [id number] documented as of this encounter Advance Directives [...] the patient have Health Care Power of Route Relief Driver? Yes, not currently available Care Teams Scudding Inspector Relationship Specialty Start Date End Date Roseann Plummer MD [address] [facility] [place] [address] PCP - General Internal Medicine 11/05/22 documented as of this encounter
--- OUTSIDE RECORDS SUMMARY | 2023-11-20 23:46 | External Medical Summary ---
Author Name Unknown Address Unknown Organization [id number]:[facility] [place] [address] [place] [address] Laboratory Report Ordering Provider Test Date Status MARY DAVIS 09/06/2023 12:10:35 Final Observation Date Value Abnormality Reference (Units ) Status Ferritin 09/06/2023 12:10:35 344 Above high normal 13 -150 (ng/mL) Final Postmenopausal women have hi gher ferritin levels than pre-menopausal women. The above reference interval is based on pre-menopausal women. Performing Location [facility] [place] - [address] [place] [address]
--- OUTSIDE RECORDS SUMMARY | 2023-11-20 23:46 | External Medical Summary ---
Author Name Unknown Address Unknown Organization [id number]:[facility] [place] [facility] - [address] [place] [address] Laboratory Report Ordering Provider Test Date Status TOMMY PRATER 09/06/2023 12:10:35 Final Observation Date Value Abnormality Reference (Units ) Status BUN 09/06/2023 12:10:35 13 6-20 (mg/dL) Final Creatinine 09/06/2023 12:10:35 0.7 0.5-1.0 (mg/dL) Final Glomerular filtration rate/1.73 sq M.predicted [Volume Rate/Area] in Serum, Plasma or Blood by Creatinine-based formula (CKD-EPI) 09/06/2023 12:10:35 >90 >=60 (mL/min) Final eGFR is calculated based on the CKD-EPI 2020 equation SODIUM 09/06/2023 12:10:35 136 135-146 (m mol/L) Final Potassium 09/06/2023 12:10:35 4.4 3.5-5.1 (m mol/L) Final Cl 09/06/2023 12:10:35 95 Below low normal 98- 107 (mmol/L) Final CO2 09/06/2023 12:10:35 28 22-32 (mmo l/L) Final Anion gap 09/06/2023 12:10:35 13 7-15 (mmol /L) Final Glucose 09/06/2023 12:10:35 109 70-120 (mg /dL) Final Albumin 09/06/2023 12:10:35 3.9 3.8-5.0 (g /dL) Final AST (Aspartate aminotransferase) 09/06/2023 12:10:35 23 10-35 (U/L) Fin al Result may be falsely elevat ed due to hemolysis. Alk Phos 09/06/2023 12:10:35 127 35-130 (U/ L) Final Bilirubin, Total 09/06/2023 12:10:35 0.6 <=1 .2 (mg/dL) Final Calcium 09/06/2023 12:10:35 9.3 8.4-10.2 ( mg/dL) Final Protein 09/06/2023 12:10:35 6.8 6.0-8.3 (g /dL) Final ALT (Alanine aminotransferase) 09/06/2023 12:10:35 25 10-35 (U/L) Final Performing Location LAB[facility]AT[facility] [place] [facility] - [address] [facility] [address]
--- OUTSIDE RECORDS SUMMARY | 2023-11-20 23:46 | External Medical Summary | Summary of Care ---
Author Name Unknown Organization [facility] Address [address] [place] [address] Phone [phone] Care Team Providers Care Cloth Examiner Machine Name Role Phone Roseann Plummer MD Primary Care Provider Reason for Visit * Reason Onset Date Comments Medication Refill 08/29/2023 Encounter Details Date Type Department Care Team (Late st Contact Info) Description 08/29/2023 Refill Family Practice [facility] [address] [facility] [place] [address] Roseann Plummer MD [address] [place] [address] Tobacco use disorder Allergies Active Allergy Reactions Criticality Noted Date Comments Buspirone Rash 11/01/2022 documented as of this encounter (statuses as of 08/30/2023) Medications Medication Sig Dispensed Refills Start Date [...] TOPICALLY DAILY 28 Patch 5 08/30/2023 Active Nicotine 7 MG/24HR Transdermal Patch 24 Hour (Nicoderm CQ)Indications:To bacco use disorder APPLY 1 PATCH TOPICALLY DAILY 28 Patch 0 08/29/2023 Discontinue d(Refill) Hospital, Clinic, or Other Facility Administered Medication Ordered Dose Route Frequency Start Date End Date Status Albuterol Sulfate (Proventil) (2.5 MG/3ML) 0.083% inhalation solution 2.5 mgIndications:COPD, mild (HCC) 2.5 mg NEBULIZER PRN 10/11/2022 Active documented as of this encounter (statuses as of 08/30/2023) Active Problems Problem Noted Date Diagnosed Date [...] as of this encounter (statuses as of 08/30/2023) Resolved Problems Problem Noted Date Diagnosed Date Resolved Date Chronic kidney disease, stage 3a 10/08/2022 03/01/2023 Overview: Per CKD protocol Substance abuse 05/25/2022 03/01/2023 Food insecurity 03/06/2021 01/11/2022 Overview: Per [facility] Protocol documented as of this encounter (statuses as of 08/30/2023) Immunizations Name Administration Dates Next Due Pneumococcal [...] Care Team (Late st Contact Info) Description 09/02/2023 2:40 PM EST Office Visit Family Practice [facility] [address] [place] [address] Roseann Plummer MD 132 [facility] [place] [address] 09/03/2023 1:00 PM EST Office Visit Pulmonary Medicine, [facility] [address] [place] [address] Huan Branham MD [address] [facility] [place] [address] 09/04/2023 11:45 AM EST Imaging Radiology [facility] [address] [place] [address] Health Maintenance Due Date Last Done Comments DISCUSS TOBACCO CESSATION (REFER TO [employer]ART[employer] #[id number]) 1965 Hepatitis B (1 of 3 - [...] this encounter Medical Devices Implanted Type Area Insurance Sales Producer Device Identifier Shelf Expiration Date Model / Serial / Lot Accolade Ii 127 Deg Sz 4 - [id number] Implanted:Qty: 1 on 12/05/2020 by Rodolfo Park, at OR [facility] Right: Hip KANDICE : ORTHOPAEDICS 11/07/2025 [id number] / / [id number] documented as of this encounter Visit Diagnoses [...] the patient have Health Care Power of Business Analysis Consultant? Yes, not currently available Care Teams Cloth Examiner Machine Relationship Specialty Start Date End Date Roseann Plummer MD [address] [place] [address] PCP - General Internal Medicine 11/05/22 documented as of this encounter
--- OUTSIDE RECORDS SUMMARY | 2023-11-20 23:46 | External Medical Summary ---
Author Name Unknown Address Unknown Organization [id number]:[facility] [place] [address] [place] [address] Laboratory Report Ordering Provider Test Date Status GRICEL DAVISSai 09/06/2023 12:10:35 Final Observation Date Value Abnormality Reference (Units ) Status Iron 09/06/2023 12:10:35 54 33-151 (ug /dL) Final Iron-binding capacity 09/06/2023 12:10:35 291 250-425 (ug/dL) Final Transferrin Sat % 09/06/2023 12:10:35 19 15 -55 (%) Final Performing Location [facility] [place] [facility] [address] [facility] [address]
[2023-11-21 06:51] LABS: Basophils # (auto) 0.03 K/uL (0.00-0.20); Basophils % (auto) 0.3 %; Eosinophils % (auto) 1.1 %; Hemoglobin 13.2 g/dl (12.0-16.0); Immature Granulocytes # (auto) 0.08 K/uL (0.01-0.20); Immature Granulocytes % (auto) 0.9 %; Lymphocytes # (auto) 1.19 K/uL (1.20-3.40); Lymphocytes % (auto) 12.8 %; Mean Corpuscular Hemoglobin 32.5 pg (25.0-34.0); Mean Corpuscular Hgb Conc 33.8 g/dL (32.0-36.0); Mean Corpuscular Volume 96.1 fL (80.0-100.0); Mean Platelet Volume 10.5 fL (9.4-12.4); Monocytes # (auto) 0.62 K/uL (0.11-0.59); Monocytes % (auto) 6.6 %; Neutrophils # (auto) 7.31 K/uL (1.40-6.50); Neutrophils % (auto) 78.3 %; Platelet Count 119 K/uL (130-400); RDW Coefficient of Variation 12.5 % (11.5-14.5); RDW Standard Deviation 44.2 fL (36.4-46.3); Red Blood Count 4.06 M/uL (4.20-5.40); White Blood Count 9.33 K/ul (4.8-10.8)
[2023-11-21 07:16] LABS: Albumin Globulin Ratio 1.2 (0.9-2); Albumin Level 3.6 gm/dl (3.4-5.0); BUN Creatinine Ratio 10.7 (10-20); Bilirubin,Total 0.3 mg/dl (0.2-1.0); Calcium 9.1 mg/dl (8.6-10.3); Creatinine Clr Calc Pharmacy 93.2 ml/min; Est GFR (Non-African American) 77.7 ml/min; Globulin 3.1 gm/dl (2.5-4.0); Magnesium 2.2 mg/dl (1.7-2.4); Phosphorus 4.1 mg/dl (2.5-4.9); Potassium 3.5 mmol/L (3.5-5.1); Total Protein 6.7 gm/dl (6.0-8.3)
[2023-11-21 07:25] LABS: Estimated Average Glucose 114 mg/dl; Hemoglobin A1C 5.6 % (4.5-5.6)
[2023-11-21] MEDS: LORazepam 1 MG in SYRINGE 0.5 ML IV PRN (07:33)
--- NOTE | 2023-11-21 08:34 | Hospitalist Progress Note ---
Date of Service November 21, 2023 Assessment & Plan (1) Hypomagnesemia: (2) Hypokalemia: (3) Bradycardia: Plan Pt is a 58yoF with past medical history significant for pulmonary hypertension, history of PFO, history of IVDA in remission, Hx of endocarditis, history of methadone maintenance therapy, COPD; history of right lung nodule; hypertension; GERD; history of KARLA; osteoarthritis, ongoing tobacco abuse, on nicotine patch; depression, Hx of PE on Eliquis admitted with electrolyte abnormalities and persistent bradycardia on telemetry. Bradycardia HR noted to be from 30s-50s on telemetry in the ED EKG on arrival sinus with PVCs Echo Jul 2023 noting EF 60-65%, LVH, elevated RA pressures. Consider repeat In the ED potassium noted to be 2.9, mag of 1.5 Pt also on methadone EPIC chart review notes on Toprol 25mg BID for HTN, will hold at this time. Adjust dose as needed Cardiology consulted- appreciate recs Continue to monitor on telemetry Atropine prn for symptomatic bradycardia HR now improved, and electrolytes were replaced and now level normal Will discuss w/ cardiology any poss. medication changes Hypokalemia Potassium of 2.9 on arrival Replete as needed Hypomagnesemia Magnesium of 1.5 on arrival Replete as needed Elevated Liver enzymes Liver enzymes elevated Currently no abd. pain Trending down hx of chronic alcohol use Liver US ordered - 1. The gallbladder is completely filled with stones and sludge. No gallbladder wall thickening. 2. Hepatic steatosis. 3. A 2.7 x 2.0 x 2.4 cm exophytic lesion within the right kidney. This favors a cyst. Recommend follow up Chronic alcohol use AWSS protocol Continue other home meds as ordered Diet: HH DVT prophylaxis: On eliquis Dispo: PCU/tele Admission and Anticipated Discharge Date Admission Date: November 20, 2023 Subjective Pt seen in follow up of bradycardia, electrolyte abnormalities, LE edema (hx of methadone use) Cardiology consulted on admission Currently pt is sitting up in bed, eating, in NAD She is on 3L of suppl. O2 - says this is her baseline O2 that she uses at home as well Denies any shortness of breath or cough, says her breathing is quite good right now No chest pain or palpitations. Also says her LE edema has resolved Overall she currently feels well. Also denies any abd. pain, or nausea Review of Systems Review of Systems: All systems reviewed & are unremarkable except as noted in Subjective Physical Exam Physical Exam: General: Alert, oriented. No acute distress Psych: Appropriate mood and affect Neuro: No gross deficits HEENT: NC/AT CV: RRR Resp: Breath sounds clear bilaterally, no increased effort of breathing. Abdomen: Soft, nontender, nondistended Extremities: No edema in lower extremities bilaterally. Results & Data Results & Data Vital Signs (Past 12 Hours) Vital Signs Temp Pulse Pulse Resp BP BP Pulse Ox 11/21/23 07:38 66 11/21/23 07:21 66 20 127/71 93 11/21/23 06:47 37.0 C 70 20 145/67 H 94 11/21/23 06:04 118/66 11/21/23 06:04 65 15 93 11/21/23 06:00 62 13 89 L 11/21/23 05:30 64 23 91 11/21/23 05:00 60 15 90 11/21/23 04:30 62 17 91 11/21/23 04:00 65 17 91 11/21/23 03:30 65 16 92 11/21/23 03:00 66 16 91 11/21/23 01:00 67 18 156/94 H 92 11/20/23 23:03 61 11/20/23 21:56 O2 Del Method O2 Flow Rate 11/21/23 07:38 11/21/23 07:21 Nasal Cannula 4 11/21/23 06:47 Nasal Cannula 11/21/23 06:04 11/21/23 06:04 11/21/23 06:00 11/21/23 05:30 11/21/23 05:00 11/21/23 04:30 11/21/23 04:00 11/21/23 03:30 11/21/23 03:00 11/21/23 01:00 Nasal Cannula 3 11/20/23 23:03 11/20/23 21:56 Nasal Cannula 3 Laboratory Results 11/21/23 11/20/23 11/20/23 Range/Units 06:14 Unknown 23:58 WBC 9.33 (4.8-10.8) K/ul RBC 4.06 L (4.20-5.40) M/uL Hgb 13.2 (12.0-16.0) g/dl Hct 39.0 (37.0-47.0) % MCV 96.1 (80.0-100.0) fL MCH 32.5 (25.0-34.0) pg MCHC 33.8 (32.0-36.0) g/dL RDW Std Deviation 44.2 (36.4-46.3) fL RDW Coeff of Cee 12.5 (11.5-14.5) % Plt Count 119 L (130-400) K/uL MPV 10.5 (9.4-12.4) fL Immature Gran % (Auto) 0.9 % Neut % (Auto) 78.3 % Lymph % (Auto) 12.8 % Barton % (Auto) 6.6 % Eos % (Auto) 1.1 % Baso % (Auto) 0.3 % Neut # (Auto) 7.31 H (1.40-6.50) K/uL Lymph # (Auto) 1.19 L (1.20-3.40) K/uL Barton # (Auto) 0.62 H (0.11-0.59) K/uL Eos # (Auto) 0.10 (0.00-0.50) K/uL Baso # (Auto) 0.03 (0.00-0.20) K/uL Immature Gran # (Auto) 0.08 (0.01-0.20) K/uL PT (9.0-12.0) Seconds INR (0.9-1.1) APTT (21-31) Seconds PTT Ratio Sodium 140 (136-145) mmol/L Potassium 3.5 3.0 L (3.5-5.1) mmol/L Chloride 99 (98-107) mmol/L Carbon Dioxide 36 H (21-32) mmol/L Anion Gap 5 (3-11) BUN 9 (6-23) mg/dl Creatinine 0.84 (0.6-1.2) mg/dl Est Cr Clr Drug Dosing 93.2 ml/min Est GFR ( Amer) 90.0 ml/min Est GFR (Non-Af Amer) 77.7 ml/min BUN/Creatinine Ratio 10.7 (10-20) Glucose 103 H (70-99(Fasting)) mg/dl Estimat Average Glucose mg/dl Hemoglobin A1c (4.5-5.6) % Calcium 9.1 (8.6-10.3) mg/dl Phosphorus 4.1 (2.5-4.9) mg/dl Magnesium 2.2 (1.7-2.4) mg/dl Total Bilirubin 0.3 (0.2-1.0) mg/dl AST 38 (13-39) U/L ALT 50 (7-52) U/L Alkaline Phosphatase 112 H (34-104) U/L Troponin I High Sens (0-14) pg/ml Total Protein 6.7 (6.0-8.3) gm/dl Albumin 3.6 (3.4-5.0) gm/dl Globulin 3.1 (2.5-4.0) gm/dl Albumin/Globulin Ratio 1.2 (0.9-2) Urine Color Yellow Urine Appearance Clear (Clear) Urine pH 7.5 (4.5-7.5) Ur Specific [place] 1.004 (1.000-1.030) Urine Protein Negative (Negative) Urine Glucose (UA) Negative (Negative) Urine Ketones Negative (Negative) Urine Blood Negative (Negative) Urine Nitrite Negative (Negative) Urine Bilirubin Negative (Negative) Urine Urobilinogen Negative (Negative) Ur Leukocyte Esterase Negative (Negative) Ethyl Alcohol mg/dL (<10.0) mg/dl Adenovirus (PCR) (NotDetected) B. pertussis DNA (PCR) (NotDetected) B.parapertussis DNA PCR (NotDetected) C. pneumoniae DNA (PCR) (NotDetected) Coronavirus OC43 (PCR) (NotDetected) Coronavirus HKU1 (PCR) (NotDetected) Coronavirus 229E (PCR) (NotDetected) SARS-CoV-2 (PCR) (NotDetected) Coronavirus NL63 (PCR) (NotDetected) Human Metapneumovir PCR (NotDetected) Influenza Type A (PCR) (NotDetected) Influenza Type B (PCR) (NotDetected) M. pneumoniae (PCR) (NotDetected) Parainfluenza 1 (PCR) (NotDetected) Parainfluenza 2 (PCR) (NotDetected) Parainfluenza 3 (PCR) (NotDetected) Parainfluenza 4 (PCR) (NotDetected) RSV (PCR) (NotDetected) Entero/Rhino (PCR) (NotDetected) 11/20/23 11/20/23 11/20/23 Range/Units 23:03 12:30 11:42 WBC 11.38 H (4.8-10.8) K/ul RBC 4.25 (4.20-5.40) M/uL Hgb 13.3 (12.0-16.0) g/dl Hct 40.2 (37.0-47.0) % MCV 94.6 (80.0-100.0) fL MCH 31.3 (25.0-34.0) pg MCHC 33.1 (32.0-36.0) g/dL RDW Std Deviation 42.7 (36.4-46.3) fL RDW Coeff of Cee 12.4 (11.5-14.5) % Plt Count 131 (130-400) K/uL MPV 10.5 (9.4-12.4) fL Immature Gran % (Auto) 0.8 % Neut % (Auto) 82.5 % Lymph % (Auto) 11.3 % Barton % (Auto) 4.7 % Eos % (Auto) 0.4 % Baso % (Auto) 0.3 % Neut # (Auto) 9.38 H (1.40-6.50) K/uL Lymph # (Auto) 1.29 (1.20-3.40) K/uL Barton # (Auto) 0.54 (0.11-0.59) K/uL Eos # (Auto) 0.05 (0.00-0.50) K/uL Baso # (Auto) 0.03 (0.00-0.20) K/uL Immature Gran # (Auto) 0.09 (0.01-0.20) K/uL PT 11.2 (9.0-12.0) Seconds INR 1.0 (0.9-1.1) APTT 31 (21-31) Seconds PTT Ratio 1.1 Sodium 139 (136-145) mmol/L Potassium TNP 2.9 L (3.5-5.1) mmol/L Chloride 95 L (98-107) mmol/L Carbon Dioxide 36 H (21-32) mmol/L Anion Gap 8 (3-11) BUN 8 (6-23) mg/dl Creatinine 0.88 (0.6-1.2) mg/dl Est Cr Clr Drug Dosing 89.0 ml/min Est GFR ( Amer) 85.1 ml/min Est GFR (Non-Af Amer) 73.4 ml/min BUN/Creatinine Ratio 9.1 L (10-20) Glucose 110 H (70-99(Fasting)) mg/dl Estimat Average Glucose 114 mg/dl Hemoglobin A1c 5.6 (4.5-5.6) % Calcium 9.2 (8.6-10.3) mg/dl Phosphorus (2.5-4.9) mg/dl Magnesium 2.2 1.5 L (1.7-2.4) mg/dl Total Bilirubin 0.4 (0.2-1.0) mg/dl AST 43 H (13-39) U/L ALT 58 H (7-52) U/L Alkaline Phosphatase 127 H (34-104) U/L Troponin I High Sens 6.8 (0-14) pg/ml Total Protein 7.5 (6.0-8.3) gm/dl Albumin 4.0 (3.4-5.0) gm/dl Globulin 3.5 (2.5-4.0) gm/dl Albumin/Globulin Ratio 1.1 (0.9-2) Urine Color Urine Appearance (Clear) Urine pH (4.5-7.5) Ur Specific [place] (1.000-1.030) Urine Protein (Negative) Urine Glucose (UA) (Negative) Urine Ketones (Negative) Urine Blood (Negative) Urine Nitrite (Negative) Urine Bilirubin (Negative) Urine Urobilinogen (Negative) Ur Leukocyte Esterase (Negative) Ethyl Alcohol mg/dL < 10.0 (<10.0) mg/dl Adenovirus (PCR) Not Detected (NotDetected) B. pertussis DNA (PCR) Not Detected (NotDetected) B.parapertussis DNA PCR Not Detected (NotDetected) C. pneumoniae DNA (PCR) Not Detected (NotDetected) Coronavirus OC43 (PCR) Not Detected (NotDetected) Coronavirus HKU1 (PCR) Not Detected (NotDetected) Coronavirus 229E (PCR) Not Detected (NotDetected) SARS-CoV-2 (PCR) Not Detected (NotDetected) Coronavirus NL63 (PCR) Not Detected (NotDetected) Human Metapneumovir PCR Not Detected (NotDetected) Influenza Type A (PCR) Not Detected (NotDetected) Influenza Type B (PCR) Not Detected (NotDetected) M. pneumoniae (PCR) Not Detected (NotDetected) Parainfluenza 1 (PCR) Not Detected (NotDetected) Parainfluenza 2 (PCR) Not Detected (NotDetected) Parainfluenza 3 (PCR) Not Detected (NotDetected) Parainfluenza 4 (PCR) Not Detected (NotDetected) RSV (PCR) Not Detected (NotDetected) Entero/Rhino (PCR) Not Detected (NotDetected) Medications Administered Current Inpatient Medications Amlodipine Besylate (A[facility]ip[facility] Besylate 5 Mg Tab) [facility]: 12/21/23 08:59 Apixaban (Apixaban 5 Mg Tablet) 5 mg PO BID [facility] Stop: 12/20/23 21:44 Last Admin: 11/20/23 23:13 Dose: 5 mg Cyanocobalamin (Cyanocobalamin (B-12) 500 Mcg Tablet) 1,000 mcg PO MoWeFr@0900 [facility] Stop: 12/22/23 08:59 Duloxetine HCl (Duloxetine Hcl 30 Mg Cap) 30 mg PO QAM [facility] Stop: 12/21/23 08:59 Ferrous Gluconate (Ferrous Gluconate 324 Mg Tab) 324 [facility]: 12/21/23 08:59 Furosemide (Furosemide 40 Mg Tab) [facility] Stop: 12/21/23 08:59 Lorazepam 1 mg/ Syringe 1 mls @ 2 mls/min IV UD PRN; Protocol PRN Reason: EtOH Withdrawal AWSS Score 6,7 Stop: 12/20/23 21:45 Last Admin: 11/21/23 07:33 Dose: 2 mls/min Lorazepam 2 mg/ Syringe 2 mls @ 2 mls/min IV UD PRN; Protocol PRN Reason: EtOH Withdrawal AWSS Score 8,9 Stop: 12/20/23 21:45 Lorazepam 3 mg/ Syringe 3 mls @ 2 mls/min IV ONCE PRN; Protocol PRN Reason: EtOH Withdrawal AWSS Score 10+ Melatonin (Melatonin 3 Mg Tab) 6 mg PO HS PRN PRN Reason: sleep Stop: 12/20/23 21:39 Methadone HCl (Methadone Oral Soln 2 Mg/Ml) 100 mg PO QAM [facility] Stop: 12/05/23 08:59 Miscellaneous (Remove Nicoderm Patch) 1 each N/A DAILY@0859 [facility] Stop: 12/21/23 08:58 Nicotine (Nicotine 14 Mg/24 Hr Patch) 1 patch TD DAILY DAVID Stop: 12/21/23 08:59 Pantoprazole Sodium (Pantoprazole 40 Mg Tab) 40 mg PO QAM [facility] Stop: 12/21/23 08:59 Potassium Chloride (Potassium Chloride 10 Meq Tabcr) 10 meq PO QAM [facility] Stop: 12/21/23 08:59
--- NOTE | 2023-11-21 09:13 | Cardiology Consultation ---
Date of Consultation November 21, 2023 Assessment & Plan (1) Bradycardia: (2) Frequent PVCs: (3) Hypokalemia: (4) Hypomagnesemia: (5) HTN (hypertension): Plan Assessment: 58 year-old female with complex PMHx presents for concerns of bradycardia, malaise and paraesthesias. Plan: 1. Bradycardia 2. Frequent PVC's 3. Hypokalemia 4. Hypomagnesemia -Resolved at time of examination. -Admission EKG demonstrated SR with frequent PVC in the setting of profound hypokalemia and hypomagnesemia. Resolved with supplementation. -Review of telemetry overnight shows SR with rare short episode of bigeminy in which patient was asymptomatic. -While the PVC's were explained by the markedly abnormal serum electrolytes. the cause of the electrolyte imbalance remains unclear. -Continue to monitor closely on telemetry. -Monitor labs with goal serum K>4.0 and serum magnesium >2.0. -Continue oral potassium supplementation -Euvolemic on exam -Obtain echocardiogram to assess overall structure and function. 5. HTN: -At target. -Continue Furosemide 40mg PO QAM in conjunction with potassium supplementation -Should resume home dose of Amlodipine 10mg PO daily. -Metoprolol on hold s/t initial bradycardia. Previously on Toprol xl 25mg BID, would recommend restarting. Case has been discussed with Dr. Mark. Further recommendations regarding plan of care as per his assessment. I spent a total of 40 minutes on the date of service in preparation, delivery, documentation of the care provided to the patient excluding any time spent in the performance of separately billed services. PAYAL [facility] Cardiology [facility] Supervising Physician Co-Signing Physician Notes Attending attestation: Case reviewed with the advanced practitioner. I have personally performed a history and physical examination on the patient. I have reviewed the advanced practitioner's documentation on the date of service referenced in note, and I agree with, and take responsibility for the plan of care. Patient seen in the emergency department. Significant other, Kiko at the bedside. Patient describes a subjective sensation of feeling her heart rate going up and down. She had checked her heart rate with her home pulse oximeter and had received variable readings. I believe that the finding of bradycardia is likely a false reading due to the presence of sinus rhythm with frequent premature ventricular contractions. After correction of electrolytes, telemetry has revealed sinus rhythm in the 70s to 80s. She does have a history of past PVCs and noted that is the indication for which she is treated with metoprolol. Will resume prior to hospital treatment with metoprolol succinate 25 mg twice daily, first dose tonight at 2100. No clear indication why she suffered significant electrolyte abnormalities. It will be interesting to see the response of her lab work on her prescribed dose of furosemide while hospitalized. Most recent echocardiogram was performed 3 months ago with stable findings. Will repeat for the purpose of completeness. I spent a total of 20 minutes coordinating, documenting, and providing care for this patient excluding time spent in the performance of separately billed services or time spent by another provider. Oleg Mark DO History of Present Illness Reason for Consultation: Bradycardia Requesting Physician: Pooja ott Attending Physician: Shahid Aceves MD History of Present Illness HPI: patient is a 58 year-old female that presented to the ED with feelings of profound weakness, nausea, poor appetite, paraesthesias of all extremities and a low heart rate noted on her home SP02 monitor. Patient denies any recent changes to medications, no acute URI or acute GI illness. No fevers. She states that over the last 3-4 days she has just felt "off", poor appetite, drinking what she thought was a good amount of water, fatigue/malaise along with burning/tinging/cramping sensations in all of her extremities. She noted a low heart rate on her spo2 monitor prompting her to present to the ED. Denies any chest pain, pressure or palpitations at time of exam. Denies any shortness of breath, pre-syncope or syncope. She does endorse prior to coming in she would feel like she needed to take a deep breath or that something was "catching her breath". PMHx includes: History of PFO Hx of Endocarditis Pulmonary HTN History of IVDA in remission, on methadone maintenance therapy Hep C positive testing COPD Hx of PE on Eliquis Right lung nodule HTN GERD Tobacco use, on Nicotine patch Chronic ETOH use Depression EKG on admission SR with frequent PVC, non-specific ST-T wave abnormalities inferior and lateral leads. Rate 74 bpm Serum K 3.0, repeat post supplementation 3.5 today Serum Mag 1.5, repeat post supplementation 2.2 Serum Na 139/140 Review of telemetry demonstrates NSR over night, rate low 60's. 0330 brief run of bigeminy noted. patient denies any symptoms. Allergies Allergy/AdvReac Type Severity Reaction Status Date / Time fluticasone furoate AdvReac Intermediate INTENSE Verified 11/20/23 16:22 [From Trelegy Ellipta] HEADACHES umeclidinium AdvReac Intermediate INTENSE Verified 11/20/23 16:22 [From Trelegy Ellipta] HEADACHES vilanterol AdvReac Intermediate INTENSE Verified 11/20/23 16:22 [From Trelegy Ellipta] HEADACHES olive oil AdvReac Unknown reacts Verified 11/20/23 16:22 with methadone Home Medications Medication Instructions Recorded Confirmed Type amlodipine 10 mg tablet 10 mg PO QAM 05/16/22 11/20/23 History duloxetine 30 mg capsule,delayed 30 mg PO QAM 05/16/22 11/20/23 History release albuterol sulfate 90 mcg/actuation 2 puff inhalation Q6H PRN Cough 09/12/22 11/20/23 History aerosol inhaler apixaban 5 mg tablet (Eliquis) 5 mg PO BID #63 tabs 09/21/22 11/20/23 Rx ferrous gluconate 324 mg (38 mg 324 mg PO QAM #30 tabs 09/21/22 11/20/23 Rx iron) tablet furosemide 40 mg tablet 40 mg PO QAM #30 tabs 09/21/22 11/20/23 Rx methadone 10 mg/5 mL oral solution 100 mg PO QAM 06/25/23 11/20/23 History nicotine 7 mg/24 hr daily 1 patch transdermal DAILY 06/25/23 11/20/23 History transdermal patch pantoprazole 40 mg tablet,delayed 40 mg PO QAM 06/25/23 11/20/23 History release bisacodyl 5 mg tablet 5 - 10 mg PO HS PRN Constipation 08/23/23 11/20/23 History melatonin 3 mg tablet 3 - 6 mg PO HS PRN sleep 08/23/23 11/20/23 History metoprolol succinate 25 mg 25 mg PO BID 08/23/23 11/20/23 History tablet,extended release 24 hr polyethylene glycol 3350 17 gram 17 g PO DAILY PRN Constipation 08/23/23 11/20/23 History oral powder packet (Miralax) cyanocobalamin (vitamin B-12) 1,000 mcg PO 3XWK 11/20/23 11/20/23 History 1,000 mcg tablet (Vitamin B-12) potassium chloride 10 mEq 10 meq PO QAM 11/20/23 11/20/23 History tablet,extended release(part/cryst) Patient History Medical History History of alcohol abuse Tobacco use Sepsis due to pneumonia Methadone maintenance therapy patient GERD (gastroesophageal reflux disease) HTN (hypertension) History of endocarditis --- r/t IV drug use. S/P transesophageal echocardiogram (RENATA) Lung nodule Constipation Anxiety Aspiration pneumonia 08/2022 from vomitting -- reports she "passed out and vomitted while she was incoherent" On home oxygen therapy 2 - 2.5 lpm via n/c daily Pulmonary embolism dx 08/2022 - unknown the cause. treated with anticoagulants. Thrombocytopenia Hepatitis C test positive pt denies. Anemia Recurrent major depressive disorder COPD (chronic obstructive pulmonary disease) Surgical History Status post total hip replacement, right Family History Other Family history non-contributory No family history of adverse response to anesthesia Social History Smoking Status: Current every day smoker Tobacco Type: Cigarettes Cigarettes Per Day: 4; Second Hand Exposure: Yes; Do You Dip or Chew Tobacco: No; Hx Alcohol Use: Yes Alcohol type: beer Hx Substance Use: Yes Last Used Substance: Days (ago) Last Used Substance Other:: medical marijuana gummies Preferred Language: Yakut Communication Ability: Effective Horse Racer Required: No Beliefs That Will Affect Care: None Current Living Situation: Alone Feels Safe at Home: Yes Assistive Devices: Oxygen - Continuous Review of Systems Review of Systems: All systems reviewed & are unremarkable except as noted in HPI & below Physical Exam Constitutional: well developed and well nourished; no acute distress Neck: normal visual inspection and trachea midline Respiratory: normal respiratory effort, lungs clear to auscultation Cardiovascular: Rate/Rhythm: regular rate and regular rhythm Heart Sounds: normal S1 and normal S2; no murmur Vessels: dorsalis pedis pulses present; no JVD Extremities: no edema Skin: no rashes, warm and dry Psychiatric: A+Ox3, euthymic affect Results & Data Vital Signs (Past 12 Hours) Vital Signs Temp Pulse Pulse Resp BP BP Pulse Ox 11/21/23 07:38 66 11/21/23 07:21 66 20 127/71 93 11/21/23 06:47 37.0 C 70 20 145/67 H 94 11/21/23 06:04 118/66 11/21/23 06:04 65 15 93 11/21/23 06:00 62 13 89 L 11/21/23 05:30 64 23 91 11/21/23 05:00 60 15 90 11/21/23 04:30 62 17 91 11/21/23 04:00 65 17 91 11/21/23 03:30 65 16 92 11/21/23 03:00 66 16 91 11/21/23 01:00 67 18 156/94 H 92 11/20/23 23:03 61 11/20/23 21:56 O2 Del Method O2 Flow Rate 11/21/23 07:38 11/21/23 07:21 Nasal Cannula 4 11/21/23 06:47 Nasal Cannula 11/21/23 06:04 11/21/23 06:04 11/21/23 06:00 11/21/23 05:30 11/21/23 05:00 11/21/23 04:30 11/21/23 04:00 11/21/23 03:30 11/21/23 03:00 11/21/23 01:00 Nasal Cannula 3 11/20/23 23:03 11/20/23 21:56 Nasal Cannula 3 Laboratory Results Cardiac Enzymes 11/21/23 Range/Units 06:14 AST 38 (13-39) U/L CBC 11/21/23 Range/Units 06:14 WBC 9.33 (4.8-10.8) K/ul RBC 4.06 L (4.20-5.40) M/uL Hgb 13.2 (12.0-16.0) g/dl Hct 39.0 (37.0-47.0) % Plt Count 119 L (130-400) K/uL Neut # (Auto) 7.31 H (1.40-6.50) K/uL Lymph # (Auto) 1.19 L (1.20-3.40) K/uL [place] # (Auto) 0.62 H (0.11-0.59) K/uL Eos # (Auto) 0.10 (0.00-0.50) K/uL Baso # (Auto) 0.03 (0.00-0.20) K/uL Comprehensive Metabolic Panel 11/20/23 11/20/23 11/21/23 Range/Units 23:03 23:58 06:14 Sodium 140 (136-145) mmol/L Potassium TNP 3.0 L 3.5 Chloride 99 (98-107) mmol/L Carbon Dioxide 36 H (21-32) mmol/L BUN 9 (6-23) mg/dl Creatinine 0.84 (0.6-1.2) mg/dl Glucose 103 H (70-99(Fasting)) mg/dl Calcium 9.1 (8.6-10.3) mg/dl AST 38 (13-39) U/L ALT 50 (7-52) U/L Alkaline Phosphatase 112 H (34-104) U/L Total Protein 6.7 (6.0-8.3) gm/dl Albumin 3.6 (3.4-5.0) gm/dl
--- NOTE | 2023-11-21 09:20 | Ultrasound Report ---
ABDOMINAL ULTRASOUND, RIGHT UPPER QUADRANT HISTORY: elevated LFTs. COMPARISON: Abdomen and pelvis CT 05/16/2022. FINDINGS: Pancreas: The visualized pancreas demonstrates a normal echotexture. Liver: The liver is echogenic consistent with fatty change. The main portal vein is patent. The liver measures 18 cm in length. Gallbladder: The gallbladder appears to be completely filled with stones and sludge. No gallbladder w all thickening. Negative sonographic Spring sign. CBD: 5 mm. Right kidney: No hydronephrosis. There is a 2.7 x 2.0 2.4 cm hypoechoic/anechoic exophytic lesion wit hin the right kidney. This favors a cyst. IMPRESSION: 1. The gallbladder is completely filled with stones and sludge. No gallbladder wall thickening. 2. Hepatic steatosis. 3. A 2.7 x 2.0 x 2.4 cm exophytic lesion within the right kidney. This favors a cyst. ACT 112: Negative or not required by law. Electronically signed by: John Bowers M.D. 11/21/2023 9:18 AM
[2023-11-21] MEDS: NICOTINE 14 MG/24 HR PATCH TD SCH (09:22)
[2023-11-21] MEDS: amLODIPine BESYLATE 5 MG TAB PO SCH (09:23)
[2023-11-21] MEDS: FERROUS GLUCONATE 324 MG TAB PO SCH (09:23)
[2023-11-21] MEDS: POTASSIUM CHLORIDE 10 MEQ TABCR PO SCH (09:23)
[2023-11-21] MEDS: DULoxetine HCL 30 MG CAP PO SCH (09:23)
[2023-11-21] MEDS: PANTOprazole 40 MG TAB PO SCH (09:23)
[2023-11-21] MEDS: METHADONE ORAL SOLN 2 MG/ML PO SCH (09:23)
[2023-11-21] MEDS: FUROSEMIDE 40 MG TAB PO SCH (09:23)
[2023-11-21] MEDS: LORazepam 1 MG/1 ML SYR ED Inj Use ONE (12:26)
--- NOTE | 2023-11-21 15:56 | Electrocardiogram Report ---
Test Reason : Blood Pressure : / mmHG Vent. Rate : 063 BPM Atrial Rate : 063 BPM P-R Int : 122 ms QRS Dur : 080 ms QT Int : 418 ms P-R-T Axes : 047 059 061 degrees QTc Int : 427 ms Normal sinus rhythm Nonspecific T wave abnormality Abnormal ECG When compared with ECG of 20-NOV-2023 11:23, Premature ventricular complexes are no longer Present Nonspecific T wave abnormality no longer evident in Inferior leads QT has lengthened Confirmed by Jamar Dumont ([id number]) on 11/21/2023 3:55:40 PM Referred By: REFERRED SELF Confirmed By:Jamar Dumont
[2023-11-21] MEDS: POTASSIUM CHLORIDE CRTAB 20 MEQ TABCR PO STA (18:38)
--- OUTSIDE RECORDS SUMMARY | 2023-11-21 19:05 | External Medical Summary | Summary of Care ---
Author Name Unknown Organization [facility] Address [address] [place] [address] Phone [phone] Care Team Providers Care Plastic Printer Name Role Phone Roseann Plummer MD Primary Care Provider Encounter Details Date Type Department Care Team ([facility] st Contact Info) Description 11/15/2023 Telephone Family Practice [facility] [address] [facility] [place] [id number] Roseann Plummer MD [address] [place] [address] Allergies Active Allergy Reactions Criticality Noted Date Comments Buspirone Rash 11/01/2022 documented as of this encounter (statuses as of 11/20/2023) Medications Medication Sig Dispensed Refills Start Date [...] 11/13/2023 Active diazePAM 5 MG Oral Tablet (Valium)Indications: Situational anxiety Take 1 tab by mouth 45-[address] scan. Do not mix with alcohol. Do not drive. 2 Tablet 0 11/13/2023 Active Hospital, Clinic, or Other Facility Administered Medication Ordered Dose Route Frequency Start Date End Date Status Albuterol Sulfate (Proventil) (2.5 MG/3ML) 0.083% inhalation solution 2.5 mgIndications:COPD, mild (HCC) 2.5 mg NEBULIZER PRN 10/11/2022 Active documented as of this encounter (statuses as of 11/20/2023) Active Problems Problem Noted Date Diagnosed Date [...] as of this encounter (statuses as of 11/20/2023) Resolved Problems Problem Noted Date Diagnosed Date Resolved Date Chronic kidney disease, stage 3a 10/08/2022 03/01/2023 Overview: Per CKD protocol Substance abuse 05/25/2022 03/01/2023 Thrombocytopenia 05/25/2022 09/06/2023 Food insecurity 03/06/2021 01/11/2022 Overview: Per [facility] Protocol documented as of this encounter (statuses as of 11/20/2023) Immunizations Name Administration Dates Next Due Pneumococcal [...] encounter Miscellaneous Notes * Telephone Encounter - Junie Santoro OSA - 11/15/2023 1:38 PM EDT [facility] is requesting the records of [facility] for the purpose of coordination of care. Forwarded to [facility]. documented in this encounter Plan of Treatment Upcoming Encounters Date Type Department Care Team (Late st Contact Info) Description 11/21/2023 11:00 AM EDT Imaging Radiology [address] [place] [id number] Health Maintenance Due [...] DIRECTIVE NOT ON FILE 10/14/2021 COVID-19 Vaccine (2022-24 season) 2023 Influenza Vaccine (FLU shot) (Season [...] encounter Medical Devices Implanted Type Area Roll Table Operator Device Identifier Shelf Expiration Date Model / Serial / Lot Shell Acet Trident Ii 50mm - [id number] Implanted:Qty: 1 on 12/05/2020 by Rodolfo Park DO at OR [facility] Right: Hip KANDICE : [employer] 09/04/2024 702-04-50D / / [id number] Trident Acetabular X3 0 36 D - [id number] Implanted:Qty: 1 on 12/05/2020 by Rodolfo Park DO at OR [facility] Right: Hip KANDICE : [employer] 09/14/2025 [id number] / / [id number] Hip Hd Perry Hummel 36/ 25 - [id number] Implanted:Qty: 1 on 12/05/2020 by Rodolfo Park DO at OR [facility] Right: Hip KANDICE : [employer] 10/03/2025 [id number] / / [id number] Accolade Ii 127 Deg Sz 4 - [id number] Implanted:Qty: 1 on 12/05/2020 by Rodolfo Park, DO at OR [facility] Right: Hip KANDICE : [employer] 11/07/2025 [id number] / / [id number] documented as of this encounter Advance Directives [...] the patient have Health Care Power of Payroll Coordinator? Yes, not currently available Care Teams Plastic Printer Relationship Specialty Start Date End Date Roseann Plummer MD [address] [place] [id number] PCP - General Internal Medicine 11/05/22 documented as of this encounter
[2023-11-21] MEDS: METOPROLOL SUCC 25MG EXT REL TAB PO SCH (20:24)
[2023-11-21] MEDS: ACETAMINOPHEN 500 MG TAB PO STA (23:30)
[2023-11-22 06:54] LABS: Hematocrit (blood only) 39.5 % (37.0-47.0); Hemoglobin 12.9 g/dl (12.0-16.0); Mean Corpuscular Hemoglobin 31.9 pg (25.0-34.0); Mean Corpuscular Hgb Conc 32.7 g/dL (32.0-36.0); Mean Corpuscular Volume 97.5 fL (80.0-100.0); Platelet Count 110 K/uL (130-400); RDW Coefficient of Variation 12.7 % (11.5-14.5); RDW Standard Deviation 45.3 fL (36.4-46.3); Red Blood Count 4.05 M/uL (4.20-5.40); White Blood Count 8.76 K/ul (4.8-10.8)
[2023-11-22 07:06] LABS: Albumin Level 3.6 gm/dl (3.4-5.0); Bilirubin,Total 0.3 mg/dl (0.2-1.0); Calcium 8.8 mg/dl (8.6-10.3); Potassium 3.7 mmol/L (3.5-5.1)
[2023-11-22 07:12] LABS: Albumin Globulin Ratio 1.1 (0.9-2); BUN Creatinine Ratio 14.6 (10-20); Creatinine Clr Calc Pharmacy 87.7 ml/min; Est GFR (Non-African American) 72.5 ml/min; Globulin 3.2 gm/dl (2.5-4.0); Phosphorus 4.2 mg/dl (2.5-4.9); Total Protein 6.8 gm/dl (6.0-8.3)
[2023-11-22] MEDS: LORazepam 2 MG in SYRINGE 1 ML IV PRN (08:22)
[2023-11-22] MEDS: CYANOCOBALAMIN (B-12) 500 MCG TABLET PO SCH (08:56)
[2023-11-22] MEDS: PATIENT'S OWN CONTROLLED MED 1 PO SCH (08:58)
--- NOTE | 2023-11-22 09:00 | Cardiology Progress Note ---
Date of Service November 22, 2023 Assessment & Plan (1) Frequent PVCs: (2) Hypokalemia: (3) Hypomagnesemia: (4) HTN (hypertension): Plan Assessment: 58 year-old female with complex PMHx presents for concerns of bradycardia, malaise and paraesthesias. Plan: 1. Falsely low heart rate measurement due to frequent PVCs. 2. Frequent PVC's 3. Hypokalemia 4. Hypomagnesemia -Resolved at time of examination. -Admission EKG demonstrated SR with frequent PVC in the setting of profound hypokalemia and hypomagnesemia. Resolved with supplementation. -Review of telemetry overnight shows SR with rare PVCs -While the PVC's were explained by the markedly abnormal serum electrolytes. the cause of the electrolyte imbalance remains unclear. -Continue to monitor closely on telemetry. -Monitor labs with goal serum K>4.0 and serum magnesium >2.0. Discussion with patient reveals that she is been consuming large quantities of ETOH, in particular the last few days which may explain more of her profound electrolyte imbalance. Continued management by Primary team with DT protocol. Spoke with nurse, who will be going to administer ativan -Continue oral potassium supplementation -Euvolemic on exam -Echocardiogram today. 5. HTN: -At target. -Continue Furosemide 40mg PO QAM in conjunction with potassium supplementation -Should resume home dose of Amlodipine 10mg PO daily. -Toprol xl was restarted. tolerating well. Case has been discussed with Dr. Mark. Further recommendations regarding plan of care as per his assessment. I spent a total of 30 minutes on the date of service in preparation, delivery, documentation of the care provided to the patient excluding any time spent in the performance of separately billed services. PAYAL [facility] Cardiology [facility] Admission and Anticipated Discharge Date Admission Date: November 20, 2023 Supervising Physician Co-Signing Physician Notes Attending attestation: Case reviewed with the advanced practitioner. I have personally performed a history and physical examination on the patient. I have reviewed the advanced practitioner's documentation on the date of service referenced in note, and I agree with, and take responsibility for the plan of care. Echo with stable findings , normal biventricular systolic function. Valve structures were not well visualized, however, no significant stenosis or regurgitation noted, unchanged compared to 07/2023. PVCs improved on telemetry. SR in the 60s noted. Continue CLOTH BOOKER metoprolol therapy. No additional cardiac testing or treatment felt to be indicated at this time. Differ management of other issues to the hospitalist service. I spent a total of 20 minutes coordinating, documenting, and providing care for this patient excluding time spent in the performance of separately billed services or time spent by another provider. Oleg Mark, Subjective 11/22/23: Patient seen and examined in follow up. She is not feeling well with notable tremors and reports a significant headache. Further discussion reveals that patient has been consuming a large volume of ETOH daily 6-7 (16 oz cans) daily, but 9-10 (16oz cans) daily over the past 3-4 days preceding admission. She admits to being in active DT's. Denies chest pain, pressure, palpitations, No shortness of breath, edema, no pre-syncopal symptoms. Review of telemetry demonstrates SR with occasional PVC's. No significant arrhythmia, no bigeminy or trigeminy as noted on the date of admission. Review of Systems Review of Systems: All systems reviewed & are unremarkable except as noted in HPI & below Physical Exam Constitutional: well developed, well nourished and + ill appearing; no acute distress Neck: normal visual inspection and trachea midline Respiratory: normal respiratory effort, lungs clear to auscultation Cardiovascular: Rate/Rhythm: regular rate and regular rhythm Heart Sounds: normal S1 and normal S2; no murmur Vessels: dorsalis pedis pulses present; no JVD Extremities: no edema Skin: no rashes, warm and dry Neurologic: Motor/Sensory: + tremor (notable hand tremors) Psychiatric: A+Ox3, euthymic affect Results & Data Vital Signs (Past 12 Hours) Vital Signs Temp Pulse Pulse Resp BP Pulse Ox O2 Del Method 11/22/23 08:11 36.5 C 62 20 119/73 92 Nasal Cannula 11/22/23 03:22 36.5 C 64 20 132/71 92 Room Air 11/21/23 23:06 36.5 C 91 H 20 113/76 92 Nasal Cannula 11/21/23 22:52 73 O2 Flow Rate 11/22/23 08:11 3 11/22/23 03:22 11/21/23 23:06 3 11/21/23 22:52 Laboratory Results Cardiac Enzymes 11/22/23 Range/Units 06:41 AST 32 (13-39) U/L CBC 11/22/23 Range/Units 06:41 WBC 8.76 (4.8-10.8) K/ul RBC 4.05 L (4.20-5.40) M/uL Hgb 12.9 (12.0-16.0) g/dl Hct 39.5 (37.0-47.0) % Plt Count 110 L (130-400) K/uL Comprehensive Metabolic Panel 11/22/23 Range/Units 06:41 Sodium 139 (136-145) mmol/L Potassium 3.7 (3.5-5.1) mmol/L Chloride 99 (98-107) mmol/L Carbon Dioxide 37 H (21-32) mmol/L BUN 13 (6-23) mg/dl Creatinine 0.89 (0.6-1.2) mg/dl Glucose 108 H (70-99(Fasting)) mg/dl Calcium 8.8 (8.6-10.3) mg/dl AST 32 (13-39) U/L ALT 47 (7-52) U/L Alkaline Phosphatase 106 H (34-104) U/L Total Protein 6.8 (6.0-8.3) gm/dl Albumin 3.6 (3.4-5.0) gm/dl Intake and Output 11/21/23 11/22/23 11/22/23 22:59 06:59 14:59 Intake Total 140 / 440 300 / 440 Balance 140 / 440 300 / 440 Intake: Oral 140 / 440 300 / 440 Other: # Unmeasured Voids 1 1 1 Weight 97.4 kg Weight Measurement Method Built in [facility]
[2023-11-22] MEDS ORDERED: GABAPENTIN 600MG ALCOHOL WITHDRAWAL LOAD PO SCH (15:00)
--- NOTE | 2023-11-22 15:20 | Hospitalist Progress Note ---
Date of Service November 22, 2023 Assessment & Plan (1) Hypomagnesemia: (2) Hypokalemia: (3) Bradycardia: Plan Pt is a 58yoF with past medical history significant for pulmonary hypertension, history of PFO, history of IVDA in remission, Hx of endocarditis, history of methadone maintenance therapy, COPD; history of right lung nodule; hypertension; GERD; history of KARLA; osteoarthritis, ongoing tobacco abuse, on nicotine patch; depression, Hx of PE on Eliquis admitted with electrolyte abnormalities and persistent bradycardia on telemetry. Bradycardia HR noted to be from 30s-50s on telemetry in the ED EKG on arrival sinus with PVCs Echo Jul 2023 noting EF 60-65%, LVH, elevated RA pressures. Consider repeat In the ED potassium noted to be 2.9, mag of 1.5 Pt also on methadone EPIC chart review notes on Toprol 25mg BID for HTN, will hold at this time. Adjust dose as needed Cardiology consulted- appreciate recs Continue to monitor on telemetry Atropine prn for symptomatic bradycardia HR now improved, and electrolytes were replaced and now level normal Discussed w/ cardiology - metoprolol resumed Hypokalemia Potassium of 2.9 on arrival Replete as needed Hypomagnesemia Magnesium of 1.5 on arrival Replete as needed Elevated Liver enzymes Liver enzymes elevated Currently no abd. pain Trending down hx of chronic alcohol use Liver US ordered - 1. The gallbladder is completely filled with stones and sludge. No gallbladder wall thickening. 2. Hepatic steatosis. 3. A 2.7 x 2.0 x 2.4 cm exophytic lesion within the right kidney. This favors a cyst. Recommend follow up Alcohol withdrawal/ hx of chronic etoh use Pt developed tremors overnight - required ativan Will start gabapentin withdrawal protocol AWSS protocol, ativan prn Continue other home meds as ordered Diet: HH DVT prophylaxis: On eliquis Dispo: PCU/tele Admission and Anticipated Discharge Date Admission Date: November 20, 2023 Subjective Pt seen in follow up of bradycardia, electrolyte abnormalities, LE edema (hx of methadone use) Cardiology consulted on admission Currently pt is sitting up in bed, in NAD She is on 3L of suppl. O2 - says this is her baseline O2 that she uses at home as well Denies any shortness of breath or cough No chest pain or palpitations. Also says her LE edema has resolved Requiring ativan overnight and today. Pt reports significant alcohol use, + tremors overnight but now calm and w/o any tremors. She is answering to me appropriately, and is very cooperative. Review of Systems Review of Systems: All systems reviewed & are unremarkable except as noted in Subjective Physical Exam Physical Exam: General: Alert, oriented. No acute distress Psych: Appropriate mood and affect Neuro: No gross deficits HEENT: NC/AT CV: RRR Resp: Breath sounds clear bilaterally, no increased effort of breathing. Abdomen: Soft, nontender, nondistended Extremities: No edema in lower extremities bilaterally. Results & Data Results & Data Vital Signs (Past 12 Hours) Vital Signs Temp Pulse Pulse Resp BP Pulse Ox O2 Del Method 11/22/23 10:29 58 L 11/22/23 10:29 Room Air 11/22/23 10:28 36.5 C 65 21 120/78 93 Nasal Cannula 11/22/23 08:11 36.5 C 62 20 119/73 92 Nasal Cannula 11/22/23 03:22 36.5 C 64 20 132/71 92 Room Air O2 Flow Rate 11/22/23 10:29 11/22/23 10:29 11/22/23 10:28 3 11/22/23 08:11 3 11/22/23 03:22 Laboratory Results 11/22/23 Range/Units 06:41 WBC 8.76 (4.8-10.8) K/ul RBC 4.05 L (4.20-5.40) M/uL Hgb 12.9 (12.0-16.0) g/dl Hct 39.5 (37.0-47.0) % MCV 97.5 (80.0-100.0) fL MCH 31.9 (25.0-34.0) pg MCHC 32.7 (32.0-36.0) g/dL RDW Std Deviation 45.3 (36.4-46.3) fL RDW Coeff of Cee 12.7 (11.5-14.5) % Plt Count 110 L (130-400) K/uL MPV 10.0 (9.4-12.4) fL Sodium 139 (136-145) mmol/L Potassium 3.7 (3.5-5.1) mmol/L Chloride 99 (98-107) mmol/L Carbon Dioxide 37 H (21-32) mmol/L Anion Gap 3 (3-11) BUN 13 (6-23) mg/dl Creatinine 0.89 (0.6-1.2) mg/dl Est Cr Clr Drug Dosing 87.7 ml/min Est GFR ( Amer) 84.0 ml/min Est GFR (Non-Af Amer) 72.5 ml/min BUN/Creatinine Ratio 14.6 (10-20) Glucose 108 H (70-99(Fasting)) mg/dl Calcium 8.8 (8.6-10.3) mg/dl Phosphorus 4.2 (2.5-4.9) mg/dl Magnesium 2.0 (1.7-2.4) mg/dl Total Bilirubin 0.3 (0.2-1.0) mg/dl AST 32 (13-39) U/L ALT 47 (7-52) U/L Alkaline Phosphatase 106 H (34-104) U/L Total Protein 6.8 (6.0-8.3) gm/dl Albumin 3.6 (3.4-5.0) gm/dl Globulin 3.2 (2.5-4.0) gm/dl Albumin/Globulin Ratio 1.1 (0.9-2) Medications Administered Current Inpatient Medications Amlodipine Besylate (Amlodipine Besylate 5 Mg Tab) 10 mg PO [facility] Stop: 12/21/23 08:59 Last Admin: 11/22/23 08:58 Dose: 10 mg Apixaban (Apixaban 5 Mg Tablet) 5 mg PO BID [facility] Stop: 12/20/23 21:44 Last Admin: 11/22/23 08:57 Dose: 5 mg Cyanocobalamin (Cyanocobalamin (B-12) 500 Mcg Tablet) 1,000 mcg PO [id number] [facility] Stop: 12/22/23 08:59 Last Admin: 11/22/23 08:56 Dose: 1,000 mcg Duloxetine HCl (Duloxetine Hcl 30 Mg Cap) 30 mg PO [facility] Stop: 12/21/23 08:59 Last Admin: 11/22/23 08:57 Dose: 30 mg Ferrous Gluconate (Ferrous Gluconate 324 Mg Tab) 324 mg PO [facility] Stop: 12/21/23 08:59 Last Admin: 11/22/23 08:57 Dose: 324 mg Furosemide (Furosemide 40 Mg Tab) 40 mg PO [facility] Stop: 12/21/23 08:59 Last Admin: 11/22/23 08:57 Dose: 40 mg Gabapentin (Gabapentin 100 Mg Cap) 100 mg PO Q6H [facility] Stop: 11/23/23 04:01 Gabapentin (Gabapentin 600 Mg Tab) 600 mg PO Q24H [facility] Stop: 11/24/23 06:01 Gabapentin (Gabapentin 400 Mg Cap) 400 mg PO Q24H [facility] Stop: 11/25/23 06:01 Gabapentin (Gabapentin 100 Mg Cap) 200 mg PO Q24H [facility] Stop: 11/26/23 06:01 Lorazepam 1 mg/ Syringe 1 mls @ 2 mls/min IV UD PRN; Protocol PRN Reason: EtOH Withdrawal AWSS Score 6,7 Stop: 12/20/23 21:45 Last Admin: 11/22/23 03:50 Dose: 2 mls/min Lorazepam 2 mg/ Syringe 2 mls @ 2 mls/min IV UD PRN; Protocol PRN Reason: EtOH Withdrawal AWSS Score 8,9 Stop: 12/20/23 21:45 Last Admin: 11/22/23 13:59 Dose: 2 mls/min Lorazepam 3 mg/ Syringe 3 mls @ 2 mls/min IV ONCE PRN; Protocol PRN Reason: EtOH Withdrawal AWSS Score 10+ Thiamine HCl 100 mg/ Syringe 10 mls @ 2 mls/min IV QAM [facility] Stop: 12/22/23 15:29 Folic Acid 1 mg/ Syringe 10 mls @ 5 mls/min IV QAM [facility] Stop: 12/22/23 15:29 Melatonin (Melatonin 3 Mg Tab) 6 mg PO HS PRN PRN Reason: sleep Stop: 12/20/23 21:39 Methadone HCl (Methadone Oral Soln 2 Mg/Ml) 100 mg PO QAM [facility] Stop: 12/05/23 08:59 Last Admin: 11/22/23 08:53 Dose: 100 mg Metoprolol Succinate (Metoprolol Succ 25mg Ext Rel Tab) 25 mg PO BID [facility] Stop: 12/21/23 20:59 Last Admin: 11/22/23 08:56 Dose: 25 mg Miscellaneous (Remove Nicoderm Patch) 1 each N/A DAILY@0859 [facility] Stop: 12/21/23 08:58 Last Admin: 11/22/23 08:58 Dose: 1 each Nicotine (Nicotine 14 Mg/24 Hr Patch) 1 patch TD DAILY [facility] Stop: 12/21/23 08:59 Last Admin: 11/22/23 08:56 Dose: 1 patch Non-Formulary Medication (Patient's Own Controlled Med 1) 1 each PO DAILY [facility] Stop: 12/06/23 08:59 Last Admin: 11/22/23 08:58 Dose: 50 mg Pantoprazole Sodium (Pantoprazole 40 Mg Tab) 40 mg PO QAM [facility] Stop: 12/21/23 08:59 Last Admin: 11/22/23 08:57 Dose: 40 mg Potassium Chloride (Potassium Chloride 10 Meq Tabcr) 10 meq PO QAM [facility] Stop: 12/21/23 08:59 Last Admin: 11/22/23 10:40 Dose: 10 meq
[2023-11-22] MEDS: GABAPENTIN 600 MG TAB PO ONE (16:17)
[2023-11-22] MEDS: FOLIC ACID 1 MG in SYRINGE 9.8 ML IV SCH (16:17)
[2023-11-22] MEDS: THIAMINE HCL 100 MG in SYRINGE 9 ML IV SCH (16:17)
[2023-11-22] MEDS: GABAPENTIN 100 MG CAP PO SCH (21:03)
[2023-11-22] MEDS: ACETAMINOPHEN 325 MG TAB PO STA (21:06)
[2023-11-23 07:22] LABS: Hematocrit (blood only) 40.7 % (37.0-47.0); Hemoglobin 12.7 g/dl (12.0-16.0); Mean Corpuscular Hemoglobin 31.4 pg (25.0-34.0); Mean Corpuscular Hgb Conc 31.2 g/dL (32.0-36.0); Mean Corpuscular Volume 100.7 fL (80.0-100.0); Mean Platelet Volume 10.3 fL (9.4-12.4); Platelet Count 116 K/uL (130-400); RDW Coefficient of Variation 12.5 % (11.5-14.5); RDW Standard Deviation 46.3 fL (36.4-46.3); Red Blood Count 4.04 M/uL (4.20-5.40); White Blood Count 9.19 K/ul (4.8-10.8)
[2023-11-23 07:24] LABS: BUN Creatinine Ratio 15.1 (10-20); Calcium 8.7 mg/dl (8.6-10.3); Est GFR (African American) 87.5 ml/min; Est GFR (Non-African American) 75.5 ml/min; Magnesium 1.8 mg/dl (1.7-2.4); Phosphorus 3.8 mg/dl (2.5-4.9); Potassium 3.8 mmol/L (3.5-5.1)
[2023-11-23] MEDS: MAGNESIUM SULFATE / D5W 1 GM/100 ML BAG IV ONE (08:26)
--- NOTE | 2023-11-23 09:40 | Hospitalist Progress Note ---
Date of Service November 23, 2023 Assessment & Plan (1) Hypomagnesemia: (2) Hypokalemia: (3) Bradycardia: Plan Pt is a 58yoF with past medical history significant for pulmonary hypertension, history of PFO, history of IVDA in remission, Hx of endocarditis, history of methadone maintenance therapy, COPD; history of right lung nodule; hypertension; GERD; history of KARLA; osteoarthritis, ongoing tobacco abuse, on nicotine patch; depression, Hx of PE on Eliquis admitted with electrolyte abnormalities and persistent bradycardia on telemetry. Bradycardia HR noted to be from 30s-50s on telemetry in the ED EKG on arrival sinus with PVCs Echo Jul 2023 noting EF 60-65%, LVH, elevated RA pressures. Consider repeat In the ED potassium noted to be 2.9, mag of 1.5 Pt also on methadone EPIC chart review notes on Toprol 25mg BID for HTN, will hold at this time. Adjust dose as needed Cardiology consulted- appreciate recs Continue to monitor on telemetry Atropine prn for symptomatic bradycardia HR now improved, and electrolytes were replaced and now level normal Discussed w/ cardiology - metoprolol resumed Hypokalemia Potassium of 2.9 on arrival Replete as needed Hypomagnesemia Magnesium of 1.5 on arrival Replete as needed Elevated Liver enzymes Liver enzymes elevated Currently no abd. pain Trending down hx of chronic alcohol use Liver US ordered - 1. The gallbladder is completely filled with stones and sludge. No gallbladder wall thickening. 2. Hepatic steatosis. 3. A 2.7 x 2.0 x 2.4 cm exophytic lesion within the right kidney. This favors a cyst. Recommend follow up Alcohol withdrawal/ hx of chronic etoh use Pt developed tremors overnight - required ativan Will start gabapentin withdrawal protocol AWSS protocol, ativan prn Continue other home meds as ordered Diet: HH DVT prophylaxis: On eliquis Dispo: PCU/tele Admission and Anticipated Discharge Date Admission Date: November 20, 2023 Subjective Pt seen in follow up of bradycardia, electrolyte abnormalities, LE edema (hx of methadone use). Also now in alcohol withdrawal. Currently laying in bed, in NAD. says she is not feeling well but reports feeling better after taking gabapentin Denies any shortness of breath or cough No chest pain or palpitations. Discussed w/ RN at the bedside Review of Systems Review of Systems: All systems reviewed & are unremarkable except as noted in Subjective Physical Exam Physical Exam: General: Alert, oriented. No acute distress Psych: Appropriate mood and affect Neuro: No gross deficits HEENT: NC/AT CV: RRR Resp: Breath sounds clear bilaterally, no increased effort of breathing. Abdomen: Soft, nontender, nondistended Extremities: No edema in lower extremities bilaterally. Results & Data Results & Data Vital Signs (Past 12 Hours) Vital Signs Temp Pulse Pulse Resp BP Pulse Ox O2 Del Method 11/23/23 07:50 36.5 C 64 18 124/83 93 Nasal Cannula 11/23/23 07:12 84 11/23/23 06:03 36.6 C 98 H 16 137/77 93 Nasal Cannula 11/23/23 02:37 36.7 C 67 20 172/79 H 90 Nasal Cannula 11/23/23 00:09 36.6 C 62 18 124/79 92 Nasal Cannula 11/22/23 23:45 64 O2 Flow Rate 11/23/23 07:50 3 11/23/23 07:12 11/23/23 06:03 3 11/23/23 02:37 3 11/23/23 00:09 3 11/22/23 23:45 Laboratory Results 11/23/23 Range/Units 06:27 WBC 9.19 (4.8-10.8) K/ul RBC 4.04 L (4.20-5.40) M/uL Hgb 12.7 (12.0-16.0) g/dl Hct 40.7 (37.0-47.0) % MCV 100.7 H (80.0-100.0) fL MCH 31.4 (25.0-34.0) pg MCHC 31.2 L (32.0-36.0) g/dL RDW Std Deviation 46.3 (36.4-46.3) fL RDW Coeff of Cee 12.5 (11.5-14.5) % Plt Count 116 L (130-400) K/uL MPV 10.3 (9.4-12.4) fL Sodium 141 (136-145) mmol/L Potassium 3.8 (3.5-5.1) mmol/L Chloride 100 (98-107) mmol/L Carbon Dioxide 39 H (21-32) mmol/L Anion Gap 2 L (3-11) BUN 13 (6-23) mg/dl Creatinine 0.86 (0.6-1.2) mg/dl Est Cr Clr Drug Dosing 90.0 ml/min Est GFR ( Amer) 87.5 ml/min Est GFR (Non-Af Amer) 75.5 ml/min BUN/Creatinine Ratio 15.1 (10-20) Glucose 103 H (70-99(Fasting)) mg/dl Calcium 8.7 (8.6-10.3) mg/dl Phosphorus 3.8 (2.5-4.9) mg/dl Magnesium 1.8 (1.7-2.4) mg/dl Medications Administered Current Inpatient Medications Amlodipine Besylate ([facility]ipine Besylate 5 Mg Tab) [facility] Stop: 12/21/23 08:59 Last Admin: 11/23/23 08:26 Dose: 10 mg Apixaban (Apixaban 5 Mg Tablet) 5 mg PO BID [facility] Stop: 12/20/23 21:44 Last Admin: 11/23/23 08:26 Dose: 5 mg Cyanocobalamin (Cyanocobalamin (B-12) 500 Mcg Tablet) 1,000 mcg PO MoWeFr@0900 [facility] Stop: 12/22/23 08:59 Last Admin: 11/22/23 08:56 Dose: 1,000 mcg Duloxetine HCl (Duloxetine Hcl 30 Mg Cap) 30 mg PO QAM [facility] Stop: 12/21/23 08:59 Last Admin: 11/23/23 08:27 Dose: 30 mg Ferrous Gluconate (Ferrous Gluconate 324 Mg Tab) 324 mg PO QAM [facility] Stop: 12/21/23 08:59 Last Admin: 11/23/23 08:26 Dose: 324 mg Furosemide (Furosemide 40 Mg Tab) 40 mg PO QAM [facility] Stop: 12/21/23 08:59 Last Admin: 11/23/23 08:27 Dose: 40 mg Gabapentin (Gabapentin 600 Mg Tab) 600 mg PO Q24H [facility] Stop: 11/24/23 06:01 Gabapentin (Gabapentin 400 Mg Cap) 400 mg PO Q24H [facility] Stop: 11/25/23 06:01 Gabapentin (Gabapentin 100 Mg Cap) 200 mg PO Q24H [facility] Stop: 11/26/23 06:01 Lorazepam 1 mg/ Syringe 1 mls @ 2 mls/min IV UD PRN; Protocol PRN Reason: EtOH Withdrawal AWSS Score 6,7 Stop: 12/20/23 21:45 Last Admin: 11/23/23 02:55 Dose: 2 mls/min Lorazepam 2 mg/ Syringe 2 mls @ 2 mls/min IV UD PRN; Protocol PRN Reason: EtOH Withdrawal AWSS Score 8,9 Stop: 12/20/23 21:45 Last Admin: 11/23/23 06:08 Dose: 2 mls/min Lorazepam 3 mg/ Syringe 3 mls @ 2 mls/min IV ONCE PRN; Protocol PRN Reason: EtOH Withdrawal AWSS Score 10+ Thiamine HCl 100 mg/ Syringe 10 mls @ 2 mls/min IV QAM [facility] Stop: 12/22/23 15:29 Last Admin: 11/23/23 08:28 Dose: 2 mls/min Folic Acid 1 mg/ Syringe 10 mls @ 5 mls/min IV QAM [facility] Stop: 12/22/23 15:29 Last Admin: 11/23/23 08:27 Dose: 5 mls/min Magnesium Sulfate/Dextrose (Magnesium Sulfate / D5w) 1 gm in 100 mls @ 50 mls/hr IV ONE ONE Stop: 11/23/23 09:55 Last Admin: 11/23/23 08:26 Dose: 50 mls/hr Melatonin (Melatonin 3 Mg Tab) 6 mg PO HS PRN PRN Reason: sleep Stop: 12/20/23 21:39 Methadone HCl (Methadone Oral Soln 2 Mg/Ml) [facility] Stop: 12/05/23 08:59 Last Admin: 11/23/23 08:26 Dose: 100 mg Metoprolol Succinate (Metoprolol Succ 25mg Ext Rel Tab) 25 mg PO BID [facility] Stop: 12/21/23 20:59 Last Admin: 11/23/23 08:26 Dose: 25 mg Miscellaneous (Remove Nicoderm Patch) 1 each N/A DAILY@0859 [facility] Stop: 12/21/23 08:58 Last Admin: 11/23/23 08:28 Dose: 1 each Nicotine (Nicotine 14 Mg/24 Hr Patch) 1 patch TD DAILY [facility] Stop: 12/21/23 08:59 Last Admin: 11/23/23 08:27 Dose: 1 patch Non-Formulary Medication (Patient's Own Controlled Med 1) 1 each PO DAILY [facility] Stop: 12/06/23 08:59 Last Admin: 11/23/23 08:28 Dose: 50 mg Pantoprazole Sodium (Pantoprazole 40 Mg Tab) 40 mg PO [facility] Stop: 12/21/23 08:59 Last Admin: 11/23/23 08:27 Dose: 40 mg Potassium Chloride (Potassium Chloride 10 Meq Tabcr) 10 meq PO [facility] Stop: 12/21/23 08:59 Last Admin: 11/23/23 08:45 Dose: 10 meq
[2023-11-23] MEDS: LORazepam 1 MG in SYRINGE 0.5 ML IV STA (11:25)
[2023-11-23] MEDS: GABAPENTIN 400 MG CAP PO ONE (11:28)
[2023-11-23] MEDS: LORazepam 1 MG TAB PO STA (19:32)
[2023-11-23] MEDS: LORazepam 0.5 MG in SYRINGE 0.25 ML IV STA (23:30)
[2023-11-24] MEDS: GABAPENTIN 600 MG TAB PO SCH (05:56)
[2023-11-24 07:12] LABS: Hematocrit (blood only) 38.9 % (37.0-47.0); Hemoglobin 12.3 g/dl (12.0-16.0); Mean Corpuscular Hemoglobin 31.6 pg (25.0-34.0); Mean Corpuscular Hgb Conc 31.6 g/dL (32.0-36.0); Mean Platelet Volume 10.5 fL (9.4-12.4); Platelet Count 112 K/uL (130-400); RDW Coefficient of Variation 12.4 % (11.5-14.5); RDW Standard Deviation 45.4 fL (36.4-46.3); Red Blood Count 3.89 M/uL (4.20-5.40); White Blood Count 9.49 K/ul (4.8-10.8)
[2023-11-24 07:20] LABS: BUN Creatinine Ratio 15.6 (10-20); Calcium 8.4 mg/dl (8.6-10.3); Creatinine Clr Calc Pharmacy 101.2 ml/min; Est GFR (Non-African American) 86.3 ml/min; Magnesium 1.9 mg/dl (1.7-2.4); Phosphorus 3.8 mg/dl (2.5-4.9); Potassium 3.9 mmol/L (3.5-5.1)
--- NOTE | 2023-11-24 07:46 | Hospitalist Progress Note ---
Date of Service November 24, 2023 Assessment & Plan (1) Hypomagnesemia: (2) Hypokalemia: (3) Bradycardia: Plan Pt is a 58yoF with past medical history significant for pulmonary hypertension, history of PFO, history of IVDA in remission, Hx of endocarditis, history of methadone maintenance therapy, COPD; history of right lung nodule; hypertension; GERD; history of KARLA; osteoarthritis, ongoing tobacco abuse, on nicotine patch; depression, Hx of PE on Eliquis admitted with electrolyte abnormalities and persistent bradycardia on telemetry. Bradycardia HR noted to be from 30s-50s on telemetry in the ED EKG on arrival sinus with PVCs Echo Jul 2023 noting EF 60-65%, LVH, elevated RA pressures. Consider repeat In the ED potassium noted to be 2.9, mag of 1.5 Pt also on methadone EPIC chart review notes on Toprol 25mg BID for HTN, will hold at this time. Adjust dose as needed Cardiology consulted- appreciate recs Continue to monitor on telemetry Atropine prn for symptomatic bradycardia HR now improved, and electrolytes were replaced and now level normal Discussed w/ cardiology - metoprolol resumed Hypokalemia Potassium of 2.9 on arrival Replete as needed Hypomagnesemia Magnesium of 1.5 on arrival Replete as needed Elevated Liver enzymes Liver enzymes elevated Currently no abd. pain Trending down hx of chronic alcohol use Liver US ordered - 1. The gallbladder is completely filled with stones and sludge. No gallbladder wall thickening. 2. Hepatic steatosis. 3. A 2.7 x 2.0 x 2.4 cm exophytic lesion within the right kidney. This favors a cyst. Recommend follow up Alcohol withdrawal/ hx of chronic etoh use Pt developed tremors overnight - required ativan Continue gabapentin withdrawal protocol AWSS protocol, ativan prn Continue other home meds as ordered Diet: HH DVT prophylaxis: On eliquis Dispo: PCU/tele Admission and Anticipated Discharge Date Admission Date: November 20, 2023 Subjective Pt seen in follow up of bradycardia, electrolyte abnormalities, LE edema (hx of methadone use). Also now in alcohol withdrawal. Currently laying in bed, in NAD. somewhat drowsy Denies any chest pain, shortness of breath or cough. No tremors. Discussed w/ RN at the bedside Review of Systems Review of Systems: All systems reviewed & are unremarkable except as noted in Subjective Physical Exam Physical Exam: General: WD/WN F in NAD HEENT: NC/AT, poor dentition CV: RRR Resp: Breath sounds clear bilaterally, no increased effort of breathing. Abdomen: Soft, nontender, nondistended Extremities: No edema in lower extremities bilaterally. Neuro: drowsy but arousable, no facial asymmetry, speech fluent, moves extremities Results & Data Results & Data Vital Signs (Past 12 Hours) Vital Signs Temp Pulse Pulse Resp BP Pulse Ox O2 Del Method 11/24/23 07:44 36.7 C 61 18 126/77 94 Nasal Cannula 11/24/23 03:19 36.7 C 64 18 131/77 91 Nasal Cannula 11/23/23 22:47 36.6 C 67 18 154/76 H 95 Nasal Cannula 11/23/23 22:13 73 11/23/23 21:55 68 111/71 O2 Flow Rate 11/24/23 07:44 3 11/24/23 03:19 3 11/23/23 22:47 3 11/23/23 22:13 11/23/23 21:55 Laboratory Results 11/24/23 Range/Units 06:12 WBC 9.49 (4.8-10.8) K/ul RBC 3.89 L (4.20-5.40) M/uL Hgb 12.3 (12.0-16.0) g/dl Hct 38.9 (37.0-47.0) % MCV 100.0 (80.0-100.0) fL MCH 31.6 (25.0-34.0) pg MCHC 31.6 L (32.0-36.0) g/dL RDW Std Deviation 45.4 (36.4-46.3) fL RDW Coeff of Cee 12.4 (11.5-14.5) % Plt Count 112 L (130-400) K/uL MPV 10.5 (9.4-12.4) fL Sodium 140 (136-145) mmol/L Potassium 3.9 (3.5-5.1) mmol/L Chloride 100 (98-107) mmol/L Carbon Dioxide 38 H (21-32) mmol/L Anion Gap 2 L (3-11) BUN 12 (6-23) mg/dl Creatinine 0.77 (0.6-1.2) mg/dl Est Cr Clr Drug Dosing 101.2 ml/min Est GFR ( Amer) 100.0 ml/min Est GFR (Non-Af Amer) 86.3 ml/min BUN/Creatinine Ratio 15.6 (10-20) Glucose 99 (70-99(Fasting)) mg/dl Calcium 8.4 L (8.6-10.3) mg/dl Phosphorus 3.8 (2.5-4.9) mg/dl Magnesium 1.9 (1.7-2.4) mg/dl Medications Administered Current Inpatient Medications Amlodipine Besylate (Amlodipine Besylate 5 Mg Tab) 10 mg PO QAM [facility] Stop: 12/21/23 08:59 Last Admin: 11/23/23 08:26 Dose: 10 mg Apixaban (Apixaban 5 Mg Tablet) 5 mg PO BID [facility] Stop: 12/20/23 21:44 Last Admin: 11/23/23 21:57 Dose: 5 mg Cyanocobalamin (Cyanocobalamin (B-12) 500 Mcg Tablet) 1,000 mcg PO MoWeFr@0900 [facility] Stop: 12/22/23 08:59 Last Admin: 11/22/23 08:56 Dose: 1,000 mcg Duloxetine HCl (Duloxetine Hcl 30 Mg Cap) [facility] [place]: 12/21/23 08:59 Last Admin: 11/23/23 08:27 Dose: 30 mg Ferrous Gluconate (Ferrous Gluconate 324 Mg Tab) 324 mg PO QAM [facility] Stop: 12/21/23 08:59 Last Admin: 11/23/23 08:26 Dose: 324 mg Furosemide (Furosemide 40 Mg Tab) 40 mg PO QAM [facility] Stop: 12/21/23 08:59 Last Admin: 11/23/23 08:27 Dose: 40 mg Gabapentin (Gabapentin 400 Mg Cap) 400 mg PO Q24H [facility] Stop: 11/25/23 06:01 Gabapentin (Gabapentin 100 Mg Cap) 200 mg PO Q24H [facility] Stop: 11/26/23 06:01 Lorazepam 1 mg/ Syringe 1 mls @ 2 mls/min IV UD PRN; Protocol PRN Reason: EtOH Withdrawal AWSS Score 6,7 Stop: 12/20/23 21:45 Last Admin: 11/24/23 04:07 Dose: 2 mls/min Lorazepam 2 mg/ Syringe 2 mls @ 2 mls/min IV UD PRN; Protocol PRN Reason: EtOH Withdrawal AWSS Score 8,9 Stop: 12/20/23 21:45 Last Admin: 11/23/23 17:23 Dose: 2 mls/min Lorazepam 3 mg/ Syringe 3 mls @ 2 mls/min IV ONCE PRN; Protocol PRN Reason: EtOH Withdrawal AWSS Score 10+ Thiamine HCl 100 mg/ Syringe 10 mls @ 2 mls/min IV QAM [facility] Stop: 12/22/23 15:29 Last Admin: 11/23/23 08:28 Dose: 2 mls/min Folic Acid 1 mg/ Syringe 10 mls @ 5 mls/min IV QAM [facility] Stop: 12/22/23 15:29 Last Admin: 11/23/23 08:27 Dose: 5 mls/min Melatonin (Melatonin 3 Mg Tab) 6 mg PO HS PRN PRN Reason: sleep Stop: 12/20/23 21:39 Methadone HCl (Methadone Oral Soln 2 Mg/Ml) 100 mg PO QAM [facility] Stop: 12/05/23 08:59 Last Admin: 11/23/23 08:26 Dose: 100 mg Metoprolol Succinate (Metoprolol Succ 25mg Ext Rel Tab) 25 mg PO BID [facility] Stop: 12/21/23 20:59 Last Admin: 11/23/23 21:57 Dose: 25 mg Miscellaneous (Remove Nicoderm Patch) 1 each N/A DAILY@0859 [facility] Stop: 12/21/23 08:58 Last Admin: 11/23/23 08:28 Dose: 1 each Nicotine (Nicotine 14 Mg/24 Hr Patch) 1 patch TD DAILY [facility] Stop: 12/21/23 08:59 Last Admin: 11/23/23 08:27 Dose: 1 patch Non-Formulary Medication (Patient's Own Controlled Med 1) 1 each PO DAILY [facility] Stop: 12/06/23 08:59 Last Admin: 11/23/23 08:28 Dose: 50 mg Pantoprazole Sodium (Pantoprazole 40 Mg Tab) 40 mg PO QAM [facility] Stop: 12/21/23 08:59 Last Admin: 11/23/23 08:27 Dose: 40 mg Potassium Chloride (Potassium Chloride 10 Meq Tabcr) 10 meq PO QAM [facility] Stop: 12/21/23 08:59 Last Admin: 11/23/23 08:45 Dose: 10 meq
[2023-11-24] MEDS: GABAPENTIN 400 MG CAP PO ONE (11:32)
[2023-11-24] MEDS: LORazepam 0.5 MG TAB PO STA (16:41)
[2023-11-25] MEDS: GABAPENTIN 400 MG CAP PO SCH (01:49)
[2023-11-25 07:23] LABS: Hematocrit (blood only) 39.5 % (37.0-47.0); Hemoglobin 12.6 g/dl (12.0-16.0); Mean Corpuscular Hgb Conc 31.9 g/dL (32.0-36.0); Mean Corpuscular Volume 100.3 fL (80.0-100.0); Mean Platelet Volume 10.3 fL (9.4-12.4); Platelet Count 112 K/uL (130-400); RDW Coefficient of Variation 12.1 % (11.5-14.5); RDW Standard Deviation 45.1 fL (36.4-46.3); Red Blood Count 3.94 M/uL (4.20-5.40); White Blood Count 9.68 K/ul (4.8-10.8)
[2023-11-25 08:13] LABS: Calcium 8.7 mg/dl (8.6-10.3); Magnesium 1.8 mg/dl (1.7-2.4)
[2023-11-25 08:19] LABS: BUN Creatinine Ratio 12.5 (10-20); Creatinine Clr Calc Pharmacy 109.2 ml/min; Est GFR (African American) 108.5 ml/min; Est GFR (Non-African American) 93.6 ml/min
--- NOTE | 2023-11-25 09:05 | Hospitalist Progress Note ---
Date of Service November 25, 2023 Assessment & Plan (1) Hypomagnesemia: (2) Hypokalemia: (3) Bradycardia: Plan Pt is a 58yoF with past medical history significant for pulmonary hypertension, history of PFO, history of IVDA in remission, Hx of endocarditis, history of methadone maintenance therapy, COPD; history of right lung nodule; hypertension; GERD; history of KARLA; osteoarthritis, ongoing tobacco abuse, on nicotine patch; depression, Hx of PE on Eliquis admitted with electrolyte abnormalities and persistent bradycardia on telemetry. Bradycardia HR noted to be from 30s-50s on telemetry in the ED EKG on arrival sinus with PVCs Echo Jul 2023 noting EF 60-65%, LVH, elevated RA pressures. Consider repeat In the ED potassium noted to be 2.9, mag of 1.5 Pt also on methadone EPIC chart review notes on Toprol 25mg BID for HTN, will hold at this time. Adjust dose as needed Cardiology consulted- appreciate recs Continue to monitor on telemetry Atropine prn for symptomatic bradycardia HR now improved, and electrolytes were replaced and now level normal Discussed w/ cardiology - metoprolol resumed Hypokalemia Potassium of 2.9 on arrival Replete as needed Hypomagnesemia Magnesium of 1.5 on arrival Replete as needed Elevated Liver enzymes Liver enzymes elevated Currently no abd. pain Trending down hx of chronic alcohol use Liver US ordered - 1. The gallbladder is completely filled with stones and sludge. No gallbladder wall thickening. 2. Hepatic steatosis. 3. A 2.7 x 2.0 x 2.4 cm exophytic lesion within the right kidney. This favors a cyst. Recommend follow up Alcohol withdrawal/ hx of chronic etoh use Pt developed tremors overnight - required ativan Continue gabapentin withdrawal protocol AWSS protocol, ativan prn Continue other home meds as ordered Diet: HH DVT prophylaxis: On eliquis Dispo: PCU/tele Admission and Anticipated Discharge Date Admission Date: November 20, 2023 Subjective Pt seen in follow up of bradycardia, electrolyte abnormalities, LE edema (hx of methadone use). Also now in alcohol withdrawal. Currently laying in bed, in NAD. Boyfriend present at the bedside. Denies any chest pain, shortness of breath or cough. Discussed w/ RN in person. Review of Systems Review of Systems: All systems reviewed & are unremarkable except as noted in Subjective Physical Exam Physical Exam: General: WD/WN F in NAD HEENT: NC/AT, poor dentition CV: RRR Resp: Breath sounds clear bilaterally, no increased effort of breathing. Abdomen: Soft, nontender, nondistended Extremities: No edema in lower extremities bilaterally. Neuro: awake, answers appropriately, no facial asymmetry, speech fluent, moves extremities Results & Data Results & Data Vital Signs (Past 12 Hours) Vital Signs Temp Pulse Resp BP Pulse Ox O2 Del Method O2 Flow Rate 11/25/23 08:16 36.7 C 69 18 132/76 95 Nasal Cannula 3.0 11/25/23 03:04 37.0 C 70 18 128/72 91 Nasal Cannula 3 11/24/23 22:32 36.5 C 64 18 127/74 90 Nasal Cannula 3 Laboratory Results 11/25/23 Range/Units 06:53 WBC 9.68 (4.8-10.8) K/ul RBC 3.94 L (4.20-5.40) M/uL Hgb 12.6 (12.0-16.0) g/dl Hct 39.5 (37.0-47.0) % MCV 100.3 H (80.0-100.0) fL MCH 32.0 (25.0-34.0) pg MCHC 31.9 L (32.0-36.0) g/dL RDW Std Deviation 45.1 (36.4-46.3) fL RDW Coeff of Cee 12.1 (11.5-14.5) % Plt Count 112 L (130-400) K/uL MPV 10.3 (9.4-12.4) fL Sodium 138 (136-145) mmol/L Potassium 4.0 (3.5-5.1) mmol/L Chloride 99 (98-107) mmol/L Carbon Dioxide 36 H (21-32) mmol/L Anion Gap 3 (3-11) BUN 9 (6-23) mg/dl Creatinine 0.72 (0.6-1.2) mg/dl Est Cr Clr Drug Dosing 109.2 ml/min Est GFR ( Amer) 108.5 ml/min Est GFR (Non-Af Amer) 93.6 ml/min BUN/Creatinine Ratio 12.5 (10-20) Glucose 107 H (70-99(Fasting)) mg/dl Calcium 8.7 (8.6-10.3) mg/dl Phosphorus 3.0 (2.5-4.9) mg/dl Magnesium 1.8 (1.7-2.4) mg/dl Medications Administered Current Inpatient Medications Amlodipine Besylate (Amlodipine Besylate 5 Mg Tab) 10 mg PO QAM [facility] Stop: 12/21/23 08:59 Last Admin: 11/25/23 08:19 Dose: 10 mg Apixaban (Apixaban 5 Mg Tablet) 5 mg PO BID [facility] Stop: 12/20/23 21:44 Last Admin: 11/25/23 08:19 Dose: 5 mg Cyanocobalamin (Cyanocobalamin (B-12) 500 Mcg Tablet) 1,000 mcg PO MoWeFr@0900 [facility] Stop: 12/22/23 08:59 Last Admin: 11/25/23 08:19 Dose: 1,000 mcg Duloxetine HCl (Duloxetine Hcl 30 Mg Cap) 30 mg PO [facility] Stop: 12/21/23 08:59 Last Admin: 11/25/23 08:19 Dose: 30 mg Ferrous Gluconate (Ferrous Gluconate 324 Mg Tab) [facility] Stop: 12/21/23 08:59 Last Admin: 11/25/23 08:18 Dose: 324 mg Furosemide (Furosemide 40 Mg Tab) 40 [facility] Stop: 12/21/23 08:59 Last Admin: 11/25/23 08:18 Dose: 40 mg Gabapentin (Gabapentin 100 Mg Cap) 200 mg PO Q24H [facility] Stop: 11/26/23 06:01 Lorazepam 1 mg/ Syringe 1 mls @ 2 mls/min IV UD PRN; Protocol PRN Reason: EtOH Withdrawal AWSS Score 6,7 Stop: 12/20/23 21:45 Last Admin: 11/25/23 01:50 Dose: 2 mls/min Lorazepam 2 mg/ Syringe 2 mls @ 2 mls/min IV UD PRN; Protocol PRN Reason: EtOH Withdrawal AWSS Score 8,9 Stop: 12/20/23 21:45 Last Admin: 11/24/23 08:07 Dose: 2 mls/min Lorazepam 3 mg/ Syringe 3 mls @ 2 mls/min IV ONCE PRN; Protocol PRN Reason: EtOH Withdrawal AWSS Score 10+ Thiamine HCl 100 mg/ Syringe 10 mls @ 2 mls/min IV QAM [facility] Stop: 12/22/23 15:29 Last Admin: 11/25/23 08:19 Dose: 2 mls/min Folic Acid 1 mg/ Syringe 10 mls @ 5 mls/min IV QAM [facility] Stop: 12/22/23 15:29 Last Admin: 11/25/23 08:19 Dose: 5 mls/min Melatonin (Melatonin 3 Mg Tab) 6 mg PO HS PRN PRN Reason: sleep Stop: 12/20/23 21:39 Methadone HCl (Methadone Oral Soln 2 Mg/Ml) 100 mg PO QAM [facility] Stop: 12/05/23 08:59 Last Admin: 11/25/23 08:20 Dose: 100 mg Metoprolol Succinate (Metoprolol Succ 25mg Ext Rel Tab) 25 mg PO BID [facility] Stop: 12/21/23 20:59 Last Admin: 11/25/23 08:20 Dose: 25 mg Miscellaneous (Remove Nicoderm Patch) 1 each N/A DAILY@0859 [facility] Stop: 12/21/23 08:58 Last Admin: 11/25/23 08:18 Dose: 1 each Nicotine (Nicotine 14 Mg/24 Hr Patch) 1 patch TD DAILY [facility] Stop: 12/21/23 08:59 Last Admin: 11/25/23 08:18 Dose: 1 patch Non-Formulary Medication (Patient's Own Controlled Med 1) 1 each PO DAILY [facility] Stop: 12/06/23 08:59 Last Admin: 11/24/23 11:33 Dose: 50 mg Pantoprazole Sodium (Pantoprazole 40 Mg Tab) 40 mg PO QAM [facility] Stop: 12/21/23 08:59 Last Admin: 11/25/23 08:18 Dose: 40 mg Potassium Chloride (Potassium Chloride 10 Meq Tabcr) 10 meq PO QAM [facility] Stop: 12/21/23 08:59 Last Admin: 11/25/23 08:18 Dose: 10 meq
[2023-11-25] MEDS: MAGNESIUM SULFATE / D5W 1 GM/100 ML BAG IV ONE (10:09)
[2023-11-25] MEDS: ALUMINUM/MAGNESIUM/SIMETH (MAALOX MAX) 30 ML UDC PO STA (23:00)
[2023-11-25] MEDS: LORazepam 0.5 MG TAB PO PRN (23:02)
[2023-11-25] MEDS: MELATONIN 3 MG TAB PO PRN (23:40)
[2023-11-26] MEDS: LORazepam 0.5 MG in SYRINGE 0.25 ML IV ONE (00:21)
[2023-11-26] MEDS: GABAPENTIN 100 MG CAP PO SCH (05:01)
[2023-11-26] MEDS: LORazepam 0.25 MG in SYRINGE 0.125 ML IV ONE (06:24)
[2023-11-26 07:32] LABS: Hematocrit (blood only) 37.1 % (37.0-47.0); Hemoglobin 11.8 g/dl (12.0-16.0); Mean Corpuscular Hgb Conc 31.8 g/dL (32.0-36.0); Mean Corpuscular Volume 100.5 fL (80.0-100.0); Platelet Count 98 K/uL (130-400); RDW Coefficient of Variation 12.3 % (11.5-14.5); RDW Standard Deviation 45.8 fL (36.4-46.3); Red Blood Count 3.69 M/uL (4.20-5.40); White Blood Count 8.33 K/ul (4.8-10.8)
[2023-11-26 07:54] LABS: BUN Creatinine Ratio 14.5 (10-20); Calcium 8.4 mg/dl (8.6-10.3); Creatinine Clr Calc Pharmacy 126.2 ml/min; Est GFR (African American) 116.8 ml/min; Est GFR (Non-African American) 100.8 ml/min; Magnesium 1.9 mg/dl (1.7-2.4); Phosphorus 3.2 mg/dl (2.5-4.9); Potassium 3.7 mmol/L (3.5-5.1)
--- NOTE | 2023-11-26 10:13 | Discharge Summary ---
Date of Service November 26, 2023 Admission HPI Per Admitting Provider Pt is a 58yoF with past medical history significant for pulmonary hypertension, history of PFO, history of IVDA in remission, Hx of endocarditis, history of methadone maintenance therapy, COPD; history of right lung nodule; hypertension; GERD; history of KARLA; osteoarthritis, ongoing tobacco abuse, on nicotine patch; depression, Hx of PE on Eliquis admitted with electrolyte abnormalities and persistent bradycardia on telemetry. Pt stated that she was here due to a low heart rate that she noticed on her pulse ox at home. Does take metoprolol at home. Was also concerned about her lower extremities and that she might have a blood clot. Pt is on chronic Eliquis at home. States this has been happening for the past few days. Also associated with generalized malaise and N/V. States she feels tired. In the ED was noted to be hypokalemic and hypomagnesemic. HR was noted to be in the 30s to 50s. Pt was admitted for further telemetry monitoring in this setting. Admission Exam Per Admitting Provider General: Alert, oriented. No acute distress Psych: Appropriate mood and affect Neuro: No gross deficits HEENT: NC/AT CV: RRR Resp: Breath sounds clear bilaterally, no increased effort of breathing. Abdomen: Soft, nontender, nondistended Extremities: No edema in lower extremities bilaterally. Principal Diagnosis Bradycardia Electrolyte abnormalities Alcohol withdrawal Discharge Exam General: WD/WN F in NAD HEENT: NC/AT, poor dentition CV: RRR Resp: Breath sounds clear bilaterally, no increased effort of breathing. Abdomen: Soft, nontender, nondistended Extremities: No edema in lower extremities bilaterally. Neuro: awake, alert, answers appropriately, no facial asymmetry, speech fluent, moves extremities Discharge Data Allergies Allergy/AdvReac Type Severity Reaction Status Date / Time fluticasone furoate AdvReac Intermediate INTENSE Verified 11/20/23 16:22 [From Trelegy Ellipta] HEADACHES umeclidinium AdvReac Intermediate INTENSE Verified 11/20/23 16:22 [From Trelegy Ellipta] HEADACHES vilanterol AdvReac Intermediate INTENSE Verified 11/20/23 16:22 [From Trelegy Ellipta] HEADACHES olive oil AdvReac Unknown reacts Verified 11/20/23 16:22 with methadone Consultations 11/20/23 18:03 ED Decision to Admit Stat 11/20/23 21:23 Consult Cardiology Routine Ordered Studies 11/20/23 11:45 US venous doppler LE BI Stat FINDINGS: There is normal compressibility, flow, and augmentation within the bilateral lower extremity deep venous systems. IMPRESSION: No DVT within the right or left lower extremity. 11/21/23 US liver Routine FINDINGS: Pancreas: The visualized pancreas demonstrates a normal echotexture. Liver: The liver is echogenic consistent with fatty change. The main portal vein is patent. The liver measures 18 cm in length. Gallbladder: The gallbladder appears to be completely filled with stones and sludge. No gallbladder wall thickening. Negative sonographic Spring sign. CBD: 5 mm. Right kidney: No hydronephrosis. There is a 2.7 x 2.0 2.4 cm hypoechoic/anechoic exophytic lesion within the right kidney. This favors a cyst. IMPRESSION: 1. The gallbladder is completely filled with stones and sludge. No gallbladder wall thickening. 2. Hepatic steatosis. 3. A 2.7 x 2.0 x 2.4 cm exophytic lesion within the right kidney. This favors a cyst. Hospital Course (1) Hypomagnesemia: (2) Hypokalemia: (3) Bradycardia: Plan Pt is a 58yoF with past medical history significant for pulmonary hypertension, history of PFO, history of IVDA in remission, Hx of endocarditis, history of methadone maintenance therapy, COPD; history of right lung nodule; hypertension; GERD; history of KARLA; osteoarthritis, ongoing tobacco abuse, on nicotine patch; depression, Hx of PE on Eliquis admitted with electrolyte abnormalities and persistent bradycardia on telemetry. Bradycardia HR noted to be from 30s-50s on telemetry in the ED EKG on arrival sinus with PVCs Echo Jul 2023 noting EF 60-65%, LVH, elevated RA pressures. Consider repeat In the ED potassium noted to be 2.9, mag of 1.5 Pt also on methadone EPIC chart review notes on Toprol 25mg BID for HTN, held initially on admission, now resumed Cardiology consulted- appreciate recs HR now improved, and electrolytes were replaced and now level normal Discussed w/ cardiology - metoprolol resumed Hypokalemia Potassium of 2.9 on arrival Replete and monitor Hypomagnesemia Magnesium of 1.5 on arrival Replete and monitor Elevated Liver enzymes Liver enzymes elevated Currently no abd. pain Trending down hx of chronic alcohol use Liver US ordered - 1. The gallbladder is completely filled with stones and sludge. No gallbladder wall thickening. 2. Hepatic steatosis. 3. A 2.7 x 2.0 x 2.4 cm exophytic lesion within the right kidney. This favors a cyst. Recommend follow up Alcohol withdrawal/ hx of chronic etoh use Pt developed tremors overnight - required ativan Continued gabapentin withdrawal protocol AWSS protocol, ativan prn Alcohol cessation recommended Continue other home meds as ordered Total Time Total Time Spent Total Time Spent (In Minutes): 40 Discharge Plan Discharge Items Patient Disposition: Home - Self-Care Reason For Visit: BRADYCARDIA, ELECTROLYTE ABN Discharge Diagnosis: Bradycardia Electrolyte abnormalities Alcohol withdrawal Activity: Per Instructions section Non-emergency contact: Primary Care Provider Call non-emergency contact if: you have any medication questions and your symptoms worsen Follow-up/Referrals: Roseann Plummer MD [Primary Care Provider] - (Date & Time 11/29/2023 3:00 PM Provider Roseann Plummer MD Department Family [facility] ) Diet: Heart Healthy Add Attending Provider Instructions: Follow up with your primary care doctor within 1 week. The appointment was scheduled for your for 11/29/2023. Take thiamine and folic acid. Take gabapentin 100 mg twice a day for next 3 days. It is crucial that you quit drinking alcohol. Pending Studies at Discharge: No Stand-Alone Forms: [facility], Smoking Cessation Medications and DC Order Prescriptions: New thiamine HCl (vitamin B1) 100 mg tablet 100 mg PO DAILY Qty: 30 0RF folic acid 1 mg tablet 1 mg PO DAILY Qty: 30 0RF gabapentin 100 mg capsule 100 mg PO BID Qty: 7 0RF Continued amlodipine 10 mg tablet 10 mg PO QAM duloxetine 30 mg capsule,delayed release(DR/EC) 30 mg PO QAM albuterol sulfate 90 mcg/actuation HFA aerosol inhaler 2 puff INHALATION Q6H PRN (Reason: Cough) ferrous gluconate 324 mg (38 mg iron) Tablet 324 mg PO QAM Qty: 30 0RF furosemide 40 mg Tablet 40 mg PO QAM Qty: 30 0RF Eliquis 5 mg tablet 5 mg PO BID Qty: 63 0RF methadone 10 mg/5 mL Solution 100 mg PO QAM Rx Instructions: IF NEED TO VERIFY--Annie and Marcela @ [facility] @ [phone]. nicotine 7 mg/24 hr Patch 24 Hour 1 patch TRANSDERMAL DAILY pantoprazole 40 mg tablet,delayed release (DR/EC) 40 mg PO QAM polyethylene glycol 3350 [Miralax] 17 gram powder in packet 17 g PO DAILY PRN (Reason: Constipation) melatonin 3 mg tablet 3 - 6 mg PO HS PRN (Reason: sleep) metoprolol succinate 25 mg tablet extended release 24 hr 25 mg PO BID bisacodyl 5 mg tablet 5 - 10 mg PO HS PRN (Reason: Constipation) cyanocobalamin (vitamin B-12) [Vitamin B-12] 1,000 mcg Tablet 1,000 mcg PO 3XWK Rx Instructions: MON, WED, FRI potassium chloride 10 mEq tablet,ER particles/crystals 10 meq PO QAM Discharge Orders: Discharge Order (Routine); Ordered 11/26/23 Ordered By: Shahid Aceves Admission Data Admit Date/Time: 11/20/23 18:24 Attending Provider: Shahid Aceves Admit Provider: Amy Vargas Primary Care Provider: Roseann Plummer Other Providers: Amy Vargas
== END 2023-11-26 13:05 | disposition home or self-care (01) | DRG 641 ==
LOC: ED 10:15 → SUATTDRO 18:24 → EDINP 18:24 → 2S 20:11

== ENCOUNTER 2024-05-09 10:11 | Inpatient (IN) ==
--- OUTSIDE RECORDS SUMMARY | 2024-05-09 10:23 | External Medical Summary | Summary of Care ---
Author Name Unknown Organization [facility] Address [address] [place] [address] Phone [phone] Care Team Providers Care Signing Agent Name Role Phone Roseann Plummer MD Primary Care Provider Reason for Visit * Reason Comments Outpatient Testing Encounter Details Date Type Department Care Team (Late st Contact Info) Description 04/10/2024 11:00 AM EDT Laboratory Laboratory [facility] [address] [place] [address] [facility] [address] [place] [address] [employer] Other*[id number]; Single subsegmental pulmonary embolism without acute cor pulmonale (HCC) Allergies Active Allergy Reactions Criticality Noted Date Comments Buspirone Rash 11/01/2022 documented as of this encounter (statuses as of 04/10/2024) Medications Medication Sig Dispensed Refills Start Date End Date Status methADONE 10 MG Tablet Take 1 Tablet by mouth once. 100mg daily Active Albuterol Sulfate HFA 108 (90 Base) MCG/ACT Inhalation Aerosol SolutionIndications: Cough INHALE 2 PUFFS BY MOUTH EVERY 6 HOURS NEEDED FOR COUGH 18 g 5 11/18/2022 Active Bisacodyl 5 MG Oral Tablet Delayed Release (Dulcolax) Take 1 Tablet by mouth daily as needed for Constipation. 30 Tablet 03/08/2023 Active oxygen IN GAS Use 3 L/min(Oxygen) as directed continuous. Active Albuterol Sulfate 0.63 MG/3ML Inhalation Nebulization Solution (Accuneb) Inhale 1 Vial via nebulizer every 6 hours as needed for Wheezing or Shortness of Breath. 360 mL 10/07/2023 Active Ferrous Gluconate 324 (38 Fe) MG Oral Tablet Take 1 Tablet by mouth daily with breakfast. 30 Tablet 2 11/13/2023 Active Eliquis 5 MG Oral Tablet (Apixaban) take 1 tablet by mouth every morning and BEFORE BEDTIME 180 Tablet 1 11/19/2023 Active Beet Root 500 MG Oral Capsule Take by mouth. Active Multivitamins Oral Capsule Take 1 Capsule by mouth in the morning. Active Nicotine 7 MG/24HR Transdermal Patch 24 Hour (Nicoderm CQ)Indications:Tobac co use disorder APPLY 1 PATCH TOPICALLY DAILY 28 Patch 5 12/16/2023 Active Nicotine 14 MG/24HR Transdermal Patch 24 Hour (Nicoderm CQ)Indications:Tobac co use disorder Place 1 Patch over 24 hours topically on the skin daily. 28 Patch 12/16/2023 Active Potassium Chloride ER 20 MEQ Oral Tablet Extended ReleaseIndications:H ypokalemia Take 1 Tablet by mouth 2 times a day. 60 Tablet 12/16/2023 Active DULoxetine HCl 30 MG Oral Capsule Delayed Release Particles (Cymbalta)Indication s:Mood disorder (HCC) Take 1 Capsule by mouth in the morning. Every morning.. 90 Capsule 3 01/01/2024 Active Metoprolol Succinate ER 25 MG Oral Tablet Extended Release 24 Hour (toPROL XL)Indications:HTN, goal below 130/80 take 1 tablet by mouth twice a day 180 Tablet 2 01/01/2024 Active amLODIPine Besylate 10 MG Oral Tablet (Norvasc)Indications :HTN, goal below 130/80 Take 1 Tablet by mouth in the morning. In the morning.. 90 Tablet 3 02/13/2024 Active Furosemide 40 MG Oral Tablet (Lasix) Take 1 Tablet by mouth in the morning. In the morning.. 90 Tablet 1 02/13/2024 Active Pantoprazole Sodium 40 MG Oral Tablet Delayed Release (Protonix) Take 1 Tablet by mouth in the morning. In the morning.. 90 Tablet 1 02/13/2024 Active Folic Acid 1 MG Oral Tablet Take 1 Tablet by mouth in the morning. 30 Tablet 11 02/19/2024 Active Clobetasol Propionate 0.05 % External Cream (Temovate)Indication s:Psoriasis vulgaris Apply to rash on buttocks and thighs twice daily for 2 weeks 60 g 5 02/26/2024 Active Magnesium Oxide 400 MG Oral TabletIndications:Hy pomagnesemia Take 2 Tablets by mouth at bedtime. 60 Tablet 11 02/28/2024 Active oxyCODONE-Acetaminop hen 5-325 MG Oral Tablet (Percocet) Take 1 Tablet by mouth every 4 hours as needed for Pain, Moderate. 15 Tablet 03/12/2024 Active oxyCODONE-Acetaminop hen 5-325 MG Oral Tablet (Percocet) Take 1 Tablet by mouth every 4 hours as needed for Pain, Moderate. 15 Tablet 03/16/2024 Active diazePAM 5 MG Oral Tablet (Valium)Indications: Situational anxiety Take 1 tab by mouth 45-[address] scan. Do not mix with alcohol. Do not drive. 2 Tablet 04/09/2024 Active Hospital, Clinic, or Other Facility Administered Medication Ordered Dose Route Frequency Start Date End Date Status Albuterol Sulfate (Proventil) (2.5 MG/3ML) 0.083% inhalation solution 2.5 mgIndications:COPD, mild (HCC) 2.5 mg NEBULIZER PRN 10/11/2022 Active documented as of this encounter (statuses as of 04/10/2024) Active Problems Problem Noted Date Diagnosed Date Cyst of kidney, acquired 12/16/2023 Restless legs syndrome (RLS) 12/16/2023 Opioid dependence, uncomplicated 09/06/2023 Alcohol dependence, uncomplicated [...] as of this encounter (statuses as of 04/10/2024) Resolved Problems Problem Noted Date Diagnosed Date Resolved Date Chronic kidney disease, stage 3a 10/08/2022 03/01/2023 Overview: Per CKD protocol Substance abuse 05/25/2022 03/01/2023 Thrombocytopenia 05/25/2022 09/06/2023 Food insecurity 03/06/2021 01/11/2022 Overview: Per [facility] Protocol documented as of this encounter (statuses as of 04/10/2024) Immunizations Name Administration Dates Next Due Pneumococcal Polysaccharide PPV23 (Pneumovax) Seasonal Influenza Virus Vac cine, Unspecified Formulation 04/28/2020 Seasonal Influenza, PF, 6 M & above, IM , (FluLaval or Fluzone) 04/28/2020 TDAP (age 10 and older)(Boostrix) 04/28/2020 documented as of this encounter Social History Tobacco Use Types Packs/Day Years Used Date Smoking Tobacco: Former Cigarettes 2 42.1 1 982 - 08/23/2023 Vaporizer Started: 07/17 [...] money to get more. Sometimes true 08/2023 Childcare Answer Date Recorded Do you feel overwhelmed with taking care of a child, family member or friend? No 08/30/2023 Does your family need help f inding childcare? (Household - for ages 0-17 years) Not on file 08/30/2023 Clothing Answer Date Recorded Have you been unable to get clothing when it was really needed? Yes 08/30/2023 Is your family able to get c lothes or diapers when needed? (Household - for ages 0-17 years) Not on file 08/30/2023 Personal Safety Answer Date Recorded Do you feel unsafe or have concerns for your saf ety? No 08/30/2023 Do you have concerns for you r family's safety? (Household - for ages 0-17 years) Not on file 08/30/2023 Utilities Answer Date Recorded Do you have trouble paying y our heating, water, or electric bill? No 08/30/2023 Is your family able to pay t he heat, water, or electric bill? (Household - for ages 0-17 years) Not on file 08/30/2023 Does your family have access to good internet? (Household - for ages 0-17 years) Not on file 08/30/2023 Employment Status Answer Date Recorded Are you unemployed or without regular income? No 08/30/2023 Does the household have a [facility] source of income? (Household - for ages 0-17 years) Not on file 08/30/2023 Social Connections Answer Date Recorded How often do you feel lonely or isolated from th ose around you? Never 08/30/2023 Financial Resource Strain Answer Date R ecorded Do you have any trouble payi ng for your medications, or do you think you might in the future? Yes 08/30/2023 Does your family have troubl e paying for medicine? (Household - for ages 0-17 years) Not on file 08/30/2023 Transportation Needs Answer Date Record ed READ ONLY Do you have troubl e getting a ride to medical visits or work? Sometimes True 08/30/2023 Does your family have a hard time getting a ride to doctors visits? (Household - for ages 0-17 years) Not on file 08/30/2023 Has lack of transportation k ept you from medical appointments, meetings, work, or from getting things needed for daily living? Check all that apply. (Adult - for ages 18 years and over) Not on file 08/30/2023 Do you (or your family) have trouble finding or paying for a ride (transportation)? (Household - for ages 0-17 years) Not on file 08/30/2023 Housing Stability Answer Date Recorded Do you currently live in a s helter or have no steady place to sleep at night? No 08/30/2023 READ ONLY Do you think you a re at risk of becoming homeless? No 08/30/2023 Does your family worry about paying for your home or becoming homeless? (Household - for ages 0-17 years) Not on file 0 08/30/2023 Are you homeless or worried that you might be in the future? (Adult - for ages 18 years and over) Not on file Are you (or your family) irina eless or worried that you might be in the future? (Household - for ages 0-17 years) Not on file Food Insecurity Answer Date Recorded Do you need food for this week? No 08/30/2023 Are you able to get enough f ood for your family? (Household - for ages 0-17 years) Not on file 08/30/2023 Does your family need food t his week? (Household - for ages 0-17 years) Not on file 08/30/2023 Do you always have enough fo od for your family? (Household - for ages 0-17 years) Not on file 08/30/2023 Sex and Gender Information Value Date Recorded [...] Care Team (Late st Contact Info) Description 04/14/2024 9:15 AM EDT Imaging Radiology [address] [facility] [place] [id number] 04/14/2024 10:15 AM EDT Imaging Radiology [facility] [address] [facility] [place] [address] 06/15/2024 11:00 AM EST Imaging Radiology [address] [facility] [place] [address] 07/08/2024 11:40 AM EST Office Visit Family Practice [facility] [address] [place] [address] Roseann Plummer MD [address] [place] [address] Pending Results Name Type Priority Associated Diagnoses Date /Time CREATININE Lab Routine Single subsegmental pulmonary embolism without acute cor pulmonale (HCC) 04/10/2024 11:05 AM EDT Scheduled Orders Name Type Priority Associated Diagnoses Orde r Schedule MYCODE INITIAL ADULT-PINK Lab Routine [employer] Other*[id number] Ordered: 04/10/2024 MYCODE SST1 Lab Routine [employer] Other*[id number] Ordered: 04/10/2024 MYCODE SST2 Lab Routine [employer] Other*[id number] Ordered: 04/10/2024 Health Maintenance Due Date Last Done Comments Alpha-1 Antitrypsin 1985 Pap Smear 1988 Cervical Cancer Screening 1997 HPV/Co-Test 1997 Cologuard 2012 Colonoscopy 2012 Sigmoidoscopy 2012 Mammogram 02/28/2021 02/29/2020 *ADVANCE DIRECTIVE NOT ON FILE 10/14/2021 Depression Monitoring 05/25/2023 05/25/2022 Influenza Vaccine (FLU shot) (#1) 2024 04/28/2020, 04/28/2020 Colorectal Cancer Screening 04/25/2024 Fecal Occult Blood Test 04/25/2024 04/25/2023, 04/25 O2 ASSESSMENT COMPLETED IN PAST YEAR FOR COPD 02/20/2025 02/21/2024 GFR 03/04/2025 03/04/2024, /02/2024, 12/16/2023, Additional history exists Albumin/Creatinine Ratio 04/26/2025 04/26/2022 Lipid Panel 11/25/2025 11/25/2020, 02/29/2020 Diabetes Screening 03/04/2027 03/04/2024, 0 12/24/2023, 12/16/2023, Additional history exists DTap/Tdap Vaccines (2 - Td or Tdap) 04/28/2030 04/28/2020 COVID-19 Vaccine Discontinued HPV (Gardasil) Vaccine Aged Out No lo nger eligible based on patient's age to complete this topic MENINGOCOCCAL (MENACTRA/MENVEO) Aged Out No longer eligible based on patient's age to complete this topic documented as of this encounter Medical Devices Implanted Type Area 911 Dispatcher Device Identifier Shelf Expiration Date Model / Serial / Lot Shell Acet Trident Ii 50mm - [id number] Implanted:Qty: 1 on 12/05/2020 by Rodolfo Park DO at [facility] Right: Hip [employer] : [employer] 09/04/2024 [id number] / / [id number] Trident Acetabular X3 0 36 D - [id number] Implanted:Qty: 1 on 12/05/2020 by Rodolfo Park DO at OR [facility] Right: Hip [employer] : [employer] 09/14/2025 [id number] / / [id number] Hip Hd Perry Hummel - [id number] Implanted:Qty: 1 on 12/05/2020 by Rodolfo Park, DO at OR [facility] Right: Hip [employer] : [employer] 10/03/2025 [id number] / / [id number] Accolade Ii 127 Deg Sz 4 - [id number] Implanted:Qty: 1 on 12/05/2020 by Rodolfo Park DO at OR [facility] Right: Hip [employer] : [employer] 11/07/2025 [id number] / / [id number] documented as of this encounter Visit Diagnoses Diagnosis [employer] Other*[id number] Single subsegmental pulmonary embolism without acute cor pulmonale (HCC) documented in this encounter Advance Directives * Full Code (Latest Code Status on File) Date Activated Date Inactivated Comments 12/05/2020 1:45 PM 12/06/2020 4:22 PM This order r eflects the patients wishes and were consensually agreed upon. Question Answer Comments Discussion of Advance Directives occurred with: Patient Does the patient have a Living Will? Yes, not cu rrently available Does the patient have Health Care Power of Long Winder Tender? Yes, not currently available Care Teams Signing Agent Relationship Specialty Start Date End Date Roseann Plummer MD [address] [facility] [place] [id number] PCP - General Internal Medicine 11/05/22 documented as of this encounter
--- OUTSIDE RECORDS SUMMARY | 2024-05-09 10:23 | External Medical Summary | Summary of Care ---
Author Name Unknown Organization [facility] Address [address] [place] [address] Phone [phone] Care Team Providers Care Senior Communications Engineer Name Role Phone Roseann Plummer MD Primary Care Provider Reason for Visit * Reason Onset Date Comments Order Request 04/06/2024 New labs needed - pt has moved appt and now old labs are out of date Encounter Details Date Type Department Care Team (Late st Contact Info) Description 04/06/2024 Telephone [address] [place] [address] Dionne Bardales, RT (R) Order Request (New labs needed - pt has mo... Allergies Active Allergy Reactions Criticality Noted Date Comments Buspirone Rash 11/01/2022 documented as of this encounter (statuses as of 04/06/2024) Medications Medication Sig Dispensed Refills Start Date [...] at bedtime. 60 Tablet 11 02/28/2024 Active diazePAM 5 MG Oral Tablet (Valium)Indications: Situational anxiety Take 1 tab by mouth 45-[address] scan. Do not mix with alcohol. Do not drive. 2 Tablet 03/13/2024 Active oxyCODONE-Acetaminop hen 5-325 MG Oral Tablet (Percocet) Take 1 Tablet by mouth every 4 hours as needed for Pain, Moderate. 15 Tablet 03/12/2024 Active oxyCODONE-Acetaminop hen 5-325 MG Oral Tablet (Percocet) Take 1 Tablet by mouth every 4 hours as needed for Pain, Moderate. 15 Tablet 03/16/2024 Active Hospital, Clinic, or Other Facility Administered Medication Ordered Dose Route Frequency Start Date End Date Status Albuterol Sulfate (Proventil) (2.5 MG/3ML) 0.083% inhalation solution 2.5 mgIndications:COPD, mild (HCC) 2.5 mg NEBULIZER PRN 10/11/2022 Active documented as of this encounter (statuses as of 04/06/2024) Active Problems Problem Noted Date Diagnosed Date [...] as of this encounter (statuses as of 04/06/2024) Resolved Problems Problem Noted Date Diagnosed Date Resolved Date Chronic kidney disease, stage 3a 10/08/2022 03/01/2023 Overview: Per CKD protocol Substance abuse 05/25/2022 03/01/2023 Thrombocytopenia 05/25/2022 09/06/2023 Food insecurity 03/06/2021 01/11/2022 Overview: Per [facility] Protocol documented as of this encounter (statuses as of 04/06/2024) Immunizations Name Administration Dates Next Due Pneumococcal [...] No 08/30/2023 Does the household have a [facility] source of income? (Household - for ages [...] encounter Miscellaneous Notes * Telephone Encounter - Dionne Bardales RT (R) - 04/06/2024 11:28 AM EDT Please order a Creat for pt to have drawn before 04/14. She moved CT appt and labs from 03/04 will be out of date. Your office will need to inform pt these labs must be drawn before 04/14. Dionne Grissom CT GW documented in this encounter Plan of Treatment Upcoming Encounters Date Type Department Care Team (Late st Contact Info) Description 04/14/2024 9:15 AM EDT Imaging Radiology [address] 132 [facility] [place] [address] 04/14/2024 10:15 AM EDT Imaging Radiology [facility] 132 [facility] [place] [address] 06/15/2024 11:00 AM EST Imaging Radiology [address] 132 [facility] [place] [address] 07/08/2024 11:40 AM EST Office Visit Family Practice [facility] 132 [facility] [place] [address] Roseann Plummer MD 132 [facility] [place] [address] Scheduled Orders Name Type Priority Associated Diagnoses Orde r Schedule CREATININE Lab Routine Single subsegmental pulmonary embolism without acute cor pulmonale (HCC) Expected: 04/06/2024, Expires: 04/06/2025 Health Maintenance Due Date Last Done Comments [...] FOR COPD 02/20/2025 02/21/2024 GFR 03/04/2025 03/04/2024, 11/27, 12/16/2023, Additional history exists Albumin/Creatinine Ratio 04/26/2025 [...] this encounter Medical Devices Implanted Type Area Pouncer Machine Device Identifier Shelf Expiration Date Model / Serial / Lot Shell Acet Trident Ii 50mm - [id number] Implanted:Qty: 1 on 12/05/2020 by Rodolfo Park DO at OR [facility] Right: Hip KANDICE : ORTHOPAEDICS 09/04/2024 702-04-50D / / [id number] Trident Acetabular X3 0 36 D - [id number] Implanted:Qty: 1 on 12/05/2020 by Rodolfo Park DO at OR [facility] Right: Hip KANDICE : ORTHOPAEDICS 09/14/2025 723-00-36D / / [id number] Hip Hd Perry Hummel [id number] Implanted:Qty: 1 on 12/05/2020 by Rodolfo Park DO at OR [facility] Right: Hip KANDICE : ORTHOPAEDICS 10/03/2025 6570-0-436 / / [id number] Accolade Ii 127 Deg Sz 4 - [id number] Implanted:Qty: 1 on 12/05/2020 by Rodolfo Park DO at OR [facility] Right: Hip KANDICE : ORTHOPAEDICS 11/07/2025 [id number] / / [id number] documented as of this encounter Visit Diagnoses Diagnosis Single subsegmental pulmonary embolism without acute cor pulmonale (HCC)- Primary documented in this encounter Advance Directives * [...] the patient have Health Care Power of Bottle House Quality Control Technician? Yes, not currently available Care Teams Senior Communications Engineer Relationship Specialty Start Date End Date Roseann Plummer MD [address] [place] [address] PCP - General Internal Medicine 11/05/22 documented as of this encounter
--- OUTSIDE RECORDS SUMMARY | 2024-05-09 10:23 | External Medical Summary | Summary of Care ---
Author Name Unknown Organization [facility] Address [address] [place] [address] Phone [phone] Care Team Providers Care Keying Machine Operator Name Role Phone Roseann Plummer MD Primary Care Provider Reason for Visit * Reason Onset Date Comments Advice 03/17/2024 Re: testing, f/u appt Encounter Details Date Type Department Care Team (Late st Contact Info) Description 03/17/2024 Telephone Pulmonary Medicine, [facility] [address] [place] [address] Services, Scheduling [address] [place] [address] Advice (Re: testing, f/u appt) Allergies Active Allergy Reactions Criticality Noted Date Comments Buspirone Rash 11/01/2022 documented as of this encounter (statuses as of 03/17/2024) Medications Medication Sig Dispensed Refills Start Date [...] as of this encounter (statuses as of 03/17/2024) Active Problems Problem Noted Date Diagnosed Date [...] as of this encounter (statuses as of 03/17/2024) Resolved Problems Problem Noted Date Diagnosed Date Resolved Date Chronic kidney disease, stage 3a 10/08/2022 03/01/2023 Overview: Per CKD protocol Substance abuse 05/25/2022 03/01/2023 Thrombocytopenia 05/25/2022 09/06/2023 Food insecurity 03/06/2021 01/11/2022 Overview: Per [facility] Protocol documented as of this encounter (statuses as of 03/17/2024) Immunizations Name Administration Dates Next Due Pneumococcal [...] No 08/30/2023 Does the household have a re lar source of income? (Household - for ages [...] encounter Miscellaneous Notes * Telephone Encounter - Brandy Ba LPN - 03/17/2024 10:25 AM EDT Pt was scheduled for LE venous u/s and CT PE-but both were cancelled because she had cholcystectomylast week. She is asking how soon she can have the test done? Dr Branham, please advise. When Dr Branham gives his recommendation, the testing will need to be scheduled, and if it's after 03/31, her f/u appt will also need to be r/s after the testing. * Telephone Encounter - Kell Sams OSA - 03/17/2024 9:58 AM EDT Pt called and she just had gallbladder surgery last week and is seeking advise on when she should do her CT scan with contrast. Please reach out to pt. documented in this encounter Plan of Treatment Upcoming Encounters Date Type Department Care Team (Late st Contact Info) Description 03/26/2024 2:15 PM EDT Office Visit General Surgery, [facility] [address] [place] [address] Rodolfo Fitzgerald MD [address] [place] [address] 03/31/2024 12:00 PM EDT Office Visit Pulmonary Medicine, [facility] [address] [place] [address] Huan Branham MD [address] [place] [address] 06/15/2024 11:00 AM EST Imaging Radiology [address] [place] [address] 07/08/2024 11:40 AM EST Office Visit Family Practice [facility] [address] [place] [address] Roseann Plummer MD [address] [place] [address] Health Maintenance Due Date Last Done Comments [...] FOR COPD 02/20/2025 02/21/2024 GFR 03/04/2025 03/04/2024, 05/2 02/2024, 12/16/2023, Additional history exists Albumin/Creatinine Ratio 04/26/2025 04/26/2022 Lipid Panel 11/25/2025 11/25/2020, 02/29/2020 Diabetes Screening 03/04/2027 03/04/2024, 0 12/24/2023, 12/16/2023, Additional history exists DTaP,Tdap,and Td Vaccines (2 - Td or Tdap) 04/28/2030 04/28/2020 COVID-19 Vaccine Discontinued HPV (Gardasil) Vaccine Aged Out No lo nger eligible based on patient's age to complete this topic MENINGOCOCCAL (MENACTRA/MENVEO) Aged Out No longer eligible based on patient's age to complete this topic documented as of this encounter Medical Devices Implanted Type Area Dtp Operator Device Identifier Shelf Expiration Date Model / Serial / Lot Shell Acet Trident Ii 50mm - [id number] Implanted:Qty: 1 on 12/05/2020 by Rodolfo Park DO at OR [facility] Right: Hip KANDICE : ORTHOPAEDICS 09/04/2024 702-04-50D / / [id number] Trident Acetabular X3 0 36 D - [id number] Implanted:Qty: 1 on 12/05/2020 by Rodolfo Park DO at OR [facility] Right: Hip KANDICE : ORTHOPAEDICS 09/14/2025 723-00-36D / / [id number] Hip Hd Perry Hummel 36/ 25 - [id number] Implanted:Qty: 1 on 12/05/2020 by Rodolfo Park DO at OR [facility] Right: Hip KANDICE : ORTHOPAEDICS 10/03/2025 6570-0-436 / / [id number] Accolade Ii 127 Deg Sz 4 - [id number] Implanted:Qty: 1 on 12/05/2020 by Rodolfo Park DO at OR [facility] Right: Hip KANDICE : ORTHOPAEDICS 11/07/2025 [id number] / / [id number] documented as of this encounter Advance Directives * Full Code [...] patient have Health Care Power of Inside Steward/Stewardess? Yes, not currently available Care Teams Keying Machine Operator Relationship Specialty Start Date End Date Roseann Plummer MD 132 [facility] [place] [address] PCP - General Internal Medicine 11/05/22 documented as of this encounter
--- OUTSIDE RECORDS SUMMARY | 2024-05-09 10:23 | External Medical Summary | Summary of Care ---
Author Name Unknown Organization [facility] Address [address] [place] [address] Phone [phone] Care Team Providers Care Nitro Man Name Role Phone Roseann Plummer MD Primary Care Provider Reason for Visit * Reason Onset Date Comments Advice 03/17/2024 Re: testing, f/u appt Encounter Details Date Type Department Care Team (Late st Contact Info) Description 03/17/2024 Telephone Pulmonary Medicine, [facility] [address] [place] [address] Services, Scheduling [address] [place] [address] Advice (Re: testing, f/u appt) Allergies Active [...] Miscellaneous Notes * Telephone Encounter - Huan Branham MD - 03/17/2024 1:[address] PE and lower extremity duplex study should be done 4 weeks after her surgical intervention. Pulmonary clinic follow-up 1 week after testing completed. * Telephone Encounter - Brandy Ba LPN [...] 2:15 PM EDT Office Visit General Surgery, [facility] 132 [facility] [place] [address] Rodolfo Fitzgerald MD [address] [place] [address] 03/31/2024 12:00 PM EDT Office Visit Pulmonary Medicine, [facility] 132 [facility] [place] [address] Huan Branham MD [address] [place] [address] 06/15/2024 11:00 AM EST Imaging Radiology [facility] 1st [facility] 132 [facility] [place] [address] 07/08/2024 11:40 AM EST Office Visit Family Practice [facility] 132 [facility] [place] [address] Roseann Plummer MD 132 [facility] [place] [address] Health Maintenance Due Date Last Done Comments [...] this encounter Medical Devices Implanted Type Area Trouble Clerk Device Identifier Shelf Expiration Date Model / Serial / Lot Shell Acet Trident Ii 50mm - [id number] Implanted:Qty: 1 on 12/05/2020 by Rodolfo Park DO at OR [facility] Right: Hip KANDICE : ORTHOPAEDICS 09/04/2024 702-04-50D / / [id number] Trident Acetabular X3 0 36 D - [id number] Implanted:Qty: 1 on 12/05/2020 by Rodolfo Park DO at OR [facility] Right: Hip KANDICE : ORTHOPAEDICS 09/14/2025 723-00-36D / / [id number] Hip Hd Nk Alumina Md D 36/ 25 - [id number] Implanted:Qty: 1 on 12/05/2020 by Rodolfo Park DO at OR [facility] Right: Hip KANDICE : ORTHOPAEDICS 10/03/2025 6570-0-436 / / [id number] Accolade Ii 127 Deg Sz 4 - [id number] Implanted:Qty: 1 on 12/05/2020 by Rodolfo Park DO at OR [facility] Right: Hip KANDICE : ORTHOPAEDICS 11/07/2025 [id number] / / [id number] documented as of this encounter Advance Directives [...] the patient have Health Care Power of Gum Rolling Machine Tender? Yes, not currently available Care Teams Nitro Man Relationship Specialty Start Date End Date Roseann Plummer MD [address] [place] [address] PCP - General Internal Medicine 11/05/22 documented as of this encounter
--- OUTSIDE RECORDS SUMMARY | 2024-05-09 10:23 | External Medical Summary ---
Author Name Unknown Address Unknown Organization K09:[facility] [place] [address] Laboratory Report Ordering Provider Test Date Status MARIE MENCHACAI 04/10/2024 11:05:29 Final Observation Date Value Abnormality Reference (Units ) Status Creatinine 04/10/2024 11:05:29 0.8 0.5-1.0 (mg/dL) Final Glomerular filtration rate/1.73 sq M.predicted [Volume Rate/Area] in Serum, Plasma or Blood by Creatinine-based formula (CKD-EPI) 04/10/2024 11:05:29 85 >=60 (mL/min) Final eGFR is calculated based on the CKD-EPI 2020 equation. Performing Location [facility] [place] [address]
--- OUTSIDE RECORDS SUMMARY | 2024-05-09 10:23 | External Medical Summary | Summary of Care ---
Author Name Unknown Organization [facility] Address [address] [place] [address] Phone [phone] Care Team Providers Care Analytical Lead Name Role Phone Roseann Plummer MD Primary Care Provider Reason for Visit * Reason Onset Date Comments Advice 03/17/2024 Re: testing, f/u appt Encounter Details Date Type Department Care Team (Late st Contact Info) Description 03/17/2024 Telephone Pulmonary Medicine, [facility] 132 [place] [address] Services, Scheduling [address] [place] [address] Advice (Re: testing, f/u appt) Allergies Active [...] 2:15 PM EDT Office Visit General Surgery, [facility] 132 [facility] [place] [address] Rodolfo Fitzgerald MD [address] [place] [address] 03/31/2024 12:00 PM EDT Office Visit Pulmonary Medicine, [facility] 132 [facility] [place] [address] Huan Branham MD [address] [place] [address] 06/15/2024 11:00 AM EST Imaging Radiology [facility] 132 [facility] [place] [address] 07/08/2024 11:40 AM EST Office Visit Family Practice [facility] 132 [facility] [place] [address] Roseann Plummer MD 132 [facility] [place] [address] Health Maintenance Due Date Last Done Comments [...] this encounter Medical Devices Implanted Type Area Income Tax Adjuster Device Identifier Shelf Expiration Date Model / Serial / Lot Shell Acet Trident Ii 50mm - [id number] Implanted:Qty: 1 on 12/05/2020 by Rodolfo Park DO at OR [facility] Right: Hip KANDICE : ORTHOPAEDICS 09/04/2024 702-04-50D / / [id number] Trident Acetabular X3 0 36 D - [id number] Implanted:Qty: 1 on 12/05/2020 by Rodolfo Park DO at OR [facility] Right: Hip KANDICE : ORTHOPAEDICS 09/14/2025 723-00-36D / / [id number] Hip Hd Nk Alumina Md D 36/ 25 - [id number] Implanted:Qty: 1 on 12/05/2020 by Rodolfo Park DO at OR [facility] Right: Hip KANDICE : ORTHOPAEDICS 10/03/2025 6570-0-436 / / [id number] Accolade Ii 127 Deg Sz 4 - [id number] Implanted:Qty: 1 on 12/05/2020 by Rodolfo Park DO at OR [facility] Right: Hip KANDICE : ORTHOPAEDICS 11/07/2025 [id number] / / [id number] documented as of this encounter Advance Directives [...] have Health Care Power of Director Of Entertainment? Yes, not currently available Care Teams Analytical Lead Relationship Specialty Start Date End Date Roseann Plummer MD [address] [place] [address] PCP - General Internal Medicine 11/05/22 documented as of this encounter
--- OUTSIDE RECORDS SUMMARY | 2024-05-09 10:23 | External Medical Summary | Summary of Care ---
Author Name Unknown Organization [facility] Address [address] [place] [address] Phone [phone] Care Team Providers Care Fish Hatchery Superintendent Name Role Phone Roseann Plummer MD Primary Care Provider Reason for Visit * Reason Onset Date Comments Advice 03/17/2024 Re: testing, f/u appt Encounter Details Date Type Department Care Team (Late st Contact Info) Description 03/17/2024 Telephone Pulmonary Medicine, [facility] 132 [place] [address] Services, Scheduling [address] [place] [address] Advice (Re: testing, f/u appt) Allergies Active [...] Miscellaneous Notes * Telephone Encounter - Brandy Sherwood OSA - 03/17/2024 5:10 PM EDT Spoke with pt. She accepted testing apt on 04/06/24 and a return with Dr Branham on 04/13/24 at 12:40 PM. * Telephone Encounter - Brandy Ba LPN - 03/17/2024 3:36 PM EDT Please reach out to pt to have CT PE and LE DVT r/s to 4 weeks after her surgery (done recently-shewill tell you the date). Her f/u with [facility] should be a week after the testing. Thanks. * Telephone Encounter - Huan Branham MD [...] 2:15 PM EDT Office Visit General Surgery, [facility] 132 [facility] [place] [address] Rodolfo Fitzgerald MD 132 [facility] [place] [address] 04/06/2024 12:00 PM EDT Imaging Radiology [address] 132 [facility] [place] [address] 04/06/2024 1:00 PM EDT Imaging Radiology [facility] 132 [facility] [place] [address] 04/13/2024 12:40 PM EDT Office Visit Pulmonary Medicine, [facility] 132 [facility] [place] [address] Huan Branham MD [address] [place] [address] 06/15/2024 11:00 AM EST Imaging Radiology [address] 132 [facility] [place] [address] 07/08/2024 11:40 AM EST Office Visit Family Practice [facility] [address] [place] [address] Roseann Plummer MD [address] [place] [address] Health Maintenance Due Date Last Done Comments [...] FOR COPD 02/20/2025 02/21/2024 GFR 03/04/2025 03/04/2024, 05/02/2024, 12/16/2023, Additional history exists Albumin/Creatinine Ratio 04/26/2025 [...] this encounter Medical Devices Implanted Type Area Sas Administrator Device Identifier Shelf Expiration Date Model / Serial / Lot Shell Acet Trident Ii 50mm - [id number] Implanted:Qty: 1 on 12/05/2020 by Rodolfo Park, DO at OR [facility] Right: Hip KANDICE : ORTHOPAEDICS 09/04/2024 702-04-50D / / [id number] Trident Acetabular X3 0 36 D - [id number] Implanted:Qty: 1 on 12/05/2020 by Rodolfo Park, DO at OR [facility] Right: Hip KANDICE : ORTHOPAEDICS 09/14/2025 723-00-36D / / [id number] Hip Hd Perry Hummel 36/ 25 - [id number] Implanted:Qty: 1 on 12/05/2020 by Rodolfo Park DO at OR [facility] Right: Hip KANDICE : ORTHOPAEDICS 10/03/2025 6570-0-436 / / [id number] Accolade Ii 127 Deg Sz 4 - [id number] Implanted:Qty: 1 on 12/05/2020 by Rodolfo Park, DO at OR [facility] Right: Hip KANDICE : ORTHOPAEDICS 11/07/2025 3985-8240 / / [id number] documented as of this encounter Advance Directives [...] the patient have Health Care Power of Legal Recovery Specialist? Yes, not currently available Care Teams Fish Hatchery Superintendent Relationship Specialty Start Date End Date Roseann Plummer MD 132 [facility] [place] [address] PCP - General Internal Medicine 11/05/22 documented as of this encounter
--- OUTSIDE RECORDS SUMMARY | 2024-05-09 10:23 | External Medical Summary | Summary of Care ---
Author Name Unknown Organization [facility] Address [address] [place] [address] Phone [phone] Care Team Providers Care Visiting Housekeeper Name Role Phone Roseann Plummer MD Primary Care Provider Reason for Visit * Reason Onset Date Comments Order Request 04/06/2024 New labs needed - pt has moved appt and now old labs are out of date Encounter Details Date Type Department Care Team (Late st Contact Info) Description 04/06/20[address]phone [address] [place] [address] Dionne Bardales, RT (R) Order Request (New labs needed - pt has mo... Allergies Active Allergy Reactions Criticality Noted Date Comments Buspirone Rash 11/01/2022 documented as of this encounter (statuses as of 04/08/2024) Medications Medication Sig Dispensed Refills Start Date [...] as of this encounter (statuses as of 04/08/2024) Active Problems Problem Noted Date Diagnosed Date [...] as of this encounter (statuses as of 04/08/2024) Resolved Problems Problem Noted Date Diagnosed Date Resolved Date Chronic kidney disease, stage 3a 10/08/2022 03/01/2023 Overview: Per CKD protocol Substance abuse 05/25/2022 03/01/2023 Thrombocytopenia 05/25/2022 09/06/2023 Food insecurity 03/06/2021 01/11/2022 Overview: Per [facility] Protocol documented as of this encounter (statuses as of 04/08/2024) Immunizations Name Administration Dates Next Due Pneumococcal [...] No 08/30/2023 Does the household have a [facility] source of income? (Household - for [...] Encounter - Dionne Bardales RT (R) - 04/08/2024 8:31 AM EDT Spoke with pt to get labs before 04/14 * Telephone Encounter - Dionne Bardales RT (R) - 04/06/2024 11:28 AM EDT Please order a Creat for pt to have drawn before 04/14. She moved CT appt and labs from 03/04 will be out of date. Your office will need to inform pt these labs must be drawn before 04/14. Dionne Grissom GW documented in this encounter Plan of Treatment Upcoming Encounters Date Type Department Care Team (Late st Contact Info) Description 04/14/2024 9:15 AM EDT Imaging Radiology [address] [place] [address] 04/14/2024 10:15 AM EDT Imaging Radiology [facility] [place] [address] 06/15/2024 11:00 AM EST Imaging Radiology [address] [place] [address] 07/08/2024 11:40 AM EST Office Visit Family Practice [address] [place] [address] Roseann Plummer MD [address] [place] [address] Scheduled Orders Name Type Priority Associated Diagnoses [...] this encounter Medical Devices Implanted Type Area Switch 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 Device Identifier Shelf Expiration Date Model / Serial / Lot Shell Acet Trident Ii 50mm - [id number] Implanted:Qty: 1 on 12/05/2020 by Rodolfo Park DO at OR [facility] Right: Hip KANDICE : ORTHOPAEDICS 09/04/2024 702-04-50D / / [id number] Trident Acetabular X3 0 36 D - [id number] Implanted:Qty: 1 on 12/05/2020 by Rodolfo Park DO at OR [facility] Right: Hip KANDICE : ORTHOPAEDICS 09/14/2025 723-00-36D / / [id number] Hip Hd Perry Alonso Md D 36/ 25 - [id number] Implanted:Qty: 1 on 12/05/2020 by Rodolfo Park DO at OR [facility] Right: Hip KANDICE : ORTHOPAEDICS 10/03/2025 6570-0-436 / / [id number] Accolade Ii 127 Deg Sz 4 - [id number] Implanted:Qty: 1 on 12/05/2020 by Rodolfo Park DO at OR [facility] Right: Hip KANDICE : ORTHOPAEDICS 11/07/2025 8236-0076 / / [id number] documented as of this encounter Visit Diagnoses [...] the patient have Health Care Power of Industrial Roof Plumber? Yes, not currently available Care Teams Visiting Housekeeper Relationship Specialty Start Date End Date Roseann Plummer MD [address] [place] [address] PCP - General Internal Medicine 11/05/22 documented as of this encounter
--- OUTSIDE RECORDS SUMMARY | 2024-05-09 10:23 | External Medical Summary | Summary of Care ---
Author Name Unknown Organization [facility] Address [address] [place] [address] Phone [phone] Care Team Providers Care Watch Supervisor Name Role Phone Roseann Plummer MD Primary Care Provider Reason for Visit * Reason Comments Post-Op 03/09/2024 anjana harry Encounter Details Date Type Department Care Team (Late st Contact Info) Description 04/01/2024 1:00 PM EDT Office Visit General Surgery, [facility] [address] [place] [address] Rodolfo Fitzgerald MD [address] [place] [address] S/P laparoscopic cholecystectomy* Allergies Active Allergy Reactions Criticality Noted Date Comments Buspirone Rash 11/01/2022 documented as of this encounter (statuses as of 04/01/2024) Medications Medication Sig Dispensed Refills Start Date [...] as of this encounter (statuses as of 04/01/2024) Active Problems Problem Noted Date Diagnosed Date [...] as of this encounter (statuses as of 04/01/2024) Resolved Problems Problem Noted Date Diagnosed Date Resolved Date Chronic kidney disease, stage 3a 10/08/2022 03/01/2023 Overview: Per CKD protocol Substance abuse 05/25/2022 03/01/2023 Thrombocytopenia 05/25/2022 09/06/2023 Food insecurity 03/06/2021 01/11/2022 Overview: Per [facility] Protocol documented as of this encounter (statuses as of 04/01/2024) Immunizations Name Administration Dates Next Due Pneumococcal [...] as of this encounter Progress Notes * Rodolfo Fitzgerald MD - 04/01/2024 1:00 PM EDT Bhumika Flores is s/p a laparascopic cholecystectomy on 03/09/2024. This female is doing well post-op. Pt. is tolerating a regular diet, having bowel movements, and has good pain control. No postoperative concerns. PE: There were no vitals taken for this visit. Gen: looks well, alert Abdomen: soft, nontender, non-distended, incisions clean, dry and intact Path: cholelithiasis Assessment: No issues following laparascopic cholecystectomy. Return to full activity in three weeks following surgery. If diarrhea occurs, discussed benefit of a low fat diet for six weeks. Plan: Followup in the office PRN or if questions arise. Rodolfo Fitzgerald MD 04/01/2024 1:00 PM documented in this encounter Nursing Notes * Margret Tang LPN - 04/01/2024 1:01 PM EDT Chief Complaint Patient presents with Post-Op 03/09/2024 lalp piero Patient does not have pain but does have some hardness at umbilical hernia, she also has a hard time going to the bathroom. documented in this encounter Plan of Treatment Upcoming Encounters Date Type Department Care Team (Late st Contact Info) Description 04/06/2024 12:00 PM EDT Imaging Radiology [address] [place] [address] 04/06/2024 1:00 PM EDT Imaging Radiology [facility] 132 [facility] [place] [address] 04/13/2024 12:40 PM EDT Office Visit Pulmonary Medicine, [facility] 132 [facility] [place] [address] Huan Branham MD [address] [place] [address] 06/15/2024 11:00 AM EST Imaging Radiology [address] 132 [facility] [place] [address] 07/08/2024 11:40 AM EST Office Visit Family Practice [address] [place] [address] Roseann Plummer MD 132 [facility] [place] [address] Health Maintenance Due Date Last Done Comments [...] this encounter Medical Devices Implanted Type Area Chemical Engineering Teacher Device Identifier Shelf Expiration Date Model / Serial / Lot Shell Acet Trident Ii 50mm - [id number] Implanted:Qty: 1 on 12/05/2020 by Rodolfo Park DO at OR [facility] Right: Hip KANDICE : ORTHOPAEDICS 09/04/2024 702-04-50D / / [id number] Trident Acetabular X3 0 36 D - [id number] Implanted:Qty: 1 on 12/05/2020 by Rodolfo Park DO at OR [facility] Right: Hip KANDICE : ORTHOPAEDICS 09/14/2025 723-00-36D / / [id number] Hip Hd Nk Alumina Md D 36/ 25 - [id number] Implanted:Qty: 1 on 12/05/2020 by Rodolfo Park DO at OR [facility] Right: Hip KANDICE : ORTHOPAEDICS 10/03/2025 6570-0-436 / / [id number] Accolade Ii 127 Deg Sz 4 - [id number] Implanted:Qty: 1 on 12/05/2020 by Rodolfo Park DO at OR [facility] Right: Hip KANDICE : ORTHOPAEDICS 11/07/2025 [id number] / / [id number] documented as of this encounter Visit Diagnoses Diagnosis S/P laparoscopic cholecystectomy- Primary Other postprocedural status documented in this encounter Advance Directives * [...] the patient have Health Care Power of Utility Clerk? Yes, not currently available Care Teams Watch Supervisor Relationship Specialty Start Date End Date Roseann Plummer MD [address] [place] [phone] PCP - General Internal Medicine 11/05/22 documented as of this encounter
--- OUTSIDE RECORDS SUMMARY | 2024-05-09 10:23 | External Medical Summary | Summary of Care ---
Author Name Unknown Organization [facility] Address [address] [place] [address] Phone [phone] Care Team Providers Care Dispatcher Service Chief Name Role Phone Roseann Plummer MD Primary Care Provider Reason for Visit * Reason Onset Date Comments Forms Request 04/27/2024 Coordination of Care- [facility] Encounter Details Date Type Department Care Team ([facility] st Contact Info) Description 04/27/2024 Telephone Family Practice [facility] [address] [place] [address] Roseann Plummer MD [address] [place] [address] Forms Request (Coordination [facility] Care- [facility]... Allergies Active Allergy Reactions Criticality Noted Date Comments Buspirone Rash 11/01/2022 documented as of this encounter (statuses as of 04/27/2024) Medications Medication Sig Dispensed Refills Start Date [...] as of this encounter (statuses as of 04/27/2024) Active Problems Problem Noted Date Diagnosed Date [...] as of this encounter (statuses as of 04/27/2024) Resolved Problems Problem Noted Date Diagnosed Date Resolved Date Chronic kidney disease, stage 3a 10/08/2022 03/01/2023 Overview: Per CKD protocol Substance abuse 05/25/2022 03/01/2023 Thrombocytopenia 05/25/2022 09/06/2023 Food insecurity 03/06/2021 01/11/2022 Overview: Per [facility] Protocol documented as of this encounter (statuses as of 04/27/2024) Immunizations Name Administration Dates Next Due Pneumococcal [...] encounter Miscellaneous Notes * Telephone Encounter - Jesse Blanco CMA - 04/27/2024 12:01 PM EDT Faxed to [facility] [phone], confirmation received. * Telephone Encounter - Roseann Plummer MD - 04/27/2024 10:30 AM EDT Request from [facility] to complete coordination form. Please print current medication list and fax along with signed form documented in this encounter Plan of Treatment Upcoming Encounters Date Type Department Care Team (Late st Contact Info) Description 05/01/2024 10:15 AM EDT Imaging Radiology [facility] [address] [place] [address] 05/01/2024 11:15 AM EDT Imaging Radiology [facility] [address] [place] [address] 06/15/2024 11:00 AM EST Imaging Radiology [facility] 1st [facility] [address] [place] [address] 07/08/2024 11:40 AM EST Office Visit Family Practice [facility] [address] [place] [address] Roseann Plummer MD [address] [place] [address] Health Maintenance Due Date Last Done Comments [...] PAST YEAR FOR COPD 02/20/2025 02/21/2024 GFR 04/10/2025 04/10/2024, 08/0 01/2024, 12/24/2023, Additional history exists Albumin/Creatinine Ratio 04/26/2025 04/26/2022 [...] this encounter Medical Devices Implanted Type Area Pipe Cutter Device Identifier Shelf Expiration Date Model / Serial / Lot Shell Acet Trident Ii 50mm - [id number] Implanted:Qty: 1 on 12/05/2020 by Rodolfo Park, DO at OR [facility] Right: Hip KANDICE : ORTHOPAEDICS 09/04/2024 702-04-50D / / [id number] Trident Acetabular X3 0 36 D - [id number] Implanted:Qty: 1 on 12/05/2020 by Rodolfo Park, DO at OR [facility] Right: Hip KANDICE : ORTHOPAEDICS 09/14/2025 723-00-36D / / [id number] Hip Hd Perry Hummel - [id number] Implanted:Qty: 1 on 12/05/2020 by Rodolfo Park DO at OR [facility] Right: Hip KANDICE : ORTHOPAEDICS 10/03/2025 6570-0-436 / / [id number] Accolade Ii 127 Deg Sz 4 - [id number] Implanted:Qty: 1 on 12/05/2020 by Rodolfo Park DO at OR [facility] Right: Hip KANDICE : ORTHOPAEDICS 11/07/2025 [id number] / / [id number] documented as of this encounter Advance Directives [...] have Health Care Power of Director Of Student Financial Aid? Yes, not currently available Care Teams Dispatcher Service Chief Relationship Specialty Start Date End Date Roseann Plummer MD [address] [place] [address] PCP - General Internal Medicine 11/05/22 documented as of this encounter
--- OUTSIDE RECORDS SUMMARY | 2024-05-09 10:23 | External Medical Summary | Summary of Care ---
Author Name Unknown Organization [facility] Address [address] [place] [address] Phone [phone] Care Team Providers Care Food Production Supervisor Name Role Phone Roseann Plummer MD Primary Care Provider Reason for Visit * Reason Onset Date Comments Advice 03/17/2024 Re: testing, f/u appt Encounter Details Date Type Department Care Team (Late st Contact Info) Description 03/17/2024 Telephone Pulmonary Medicine, [facility] [address] [place] [address] Services, Scheduling [address] [place] [address] Advice (Re: testing, f/u appt) Allergies Active [...] 2:15 PM EDT Office Visit General Surgery, [facility] [address] [place] [address] Rodolfo Fitzgerald MD [address] [place] [address] 03/31/2024 12:00 PM EDT Office Visit Pulmonary Medicine, [facility] 132 [facility] [place] [address] [facility] [address] [facility] [address] 06/15/2024 11:00 AM EST Imaging Radiology [facility] 1st [facility] [address] [place] [address] 07/08/2024 11:40 AM EST Office Visit Family Practice [facility] [address] [place] [address] Roseann Plummer MD [address] [place] [address] Health Maintenance Due Date Last Done Comments [...] this encounter Medical Devices Implanted Type Area Pot Tender Device Identifier Shelf Expiration Date Model / Serial / Lot Shell Acet Trident Ii 50mm - [id number] Implanted:Qty: 1 on 12/05/2020 by Rodolfo Park DO at OR [facility] Right: Hip KANDICE : ORTHOPAEDICS 09/04/2024 702-04-50D / / [id number] Trident Acetabular X3 0 36 D - [id number] Implanted:Qty: 1 on 12/05/2020 by Rodolfo Park DO at OR [facility] Right: Hip KANDICE : ORTHOPAEDICS 09/14/2025 723-00-36D / / [id number] Hip Hd Perry Hummel 36/ 25 - [id number] Implanted:Qty: 1 on 12/05/2020 by Rodolfo Park DO at OR [facility] Right: Hip KANDICE : ORTHOPAEDICS 10/03/2025 6570-0-436 / / [id number] Accolade Ii 127 Deg Sz 4 - [id number] Implanted:Qty: 1 on 12/05/2020 by Rodolfo Park, at OR [facility] Right: Hip KANDICE : ORTHOPAEDICS 11/07/2025 [id number] / / [id number] documented as of this encounter Advance Directives [...] the patient have Health Care Power of Proj Engineer? Yes, not currently available Care Teams Food Production Supervisor Relationship Specialty Start Date End Date Roseann Plummer MD [address] [place] [phone] PCP - General Internal Medicine 11/05/22 documented as of this encounter
--- OUTSIDE RECORDS SUMMARY | 2024-05-09 10:23 | External Medical Summary | Summary of Care ---
Author Name Unknown Organization [facility] Address [address] [place] [address] Phone [phone] Care Team Providers Care Inspector Circuitry Negative Name Role Phone Roseann Plummer MD Primary Care Provider Encounter Details Date Type Department Care Team ([facility] st Contact Info) Description 04/09/2024 Orders Only PATIENT PORTAL DO NOT DELETE THIS DEPT USED BY [place]GGY [place] [id number] Allergies Active Allergy Reactions Criticality Noted Date Comments Buspirone Rash 11/01/2022 documented as of this encounter (statuses as of 04/09/2024) Medications Medication Sig Dispensed Refills Start Date [...] APPLY 1 PATCH TOPICALLY DAILY 28 Patch 12/16/2023 Active Nicotine 14 MG/24HR Transdermal Patch [...] twice daily for 2 weeks 60 g 02/26/2024 Active Magnesium Oxide 400 MG Oral TabletIndications:Hy pomagnesemia Take 2 Tablets by mouth at bedtime. 60 Tablet 02/28/2024 Active diazePAM 5 MG Oral Tablet [...] as of this encounter (statuses as of 04/09/2024) Active Problems Problem Noted Date Diagnosed Date [...] as of this encounter (statuses as of 04/09/2024) Resolved Problems Problem Noted Date Diagnosed Date Resolved Date Chronic kidney disease, stage 3a 10/08/2022 03/01/2023 Overview: Per CKD protocol Substance abuse 05/25/2022 03/01/2023 Thrombocytopenia 05/25/2022 09/06/2023 Food insecurity 03/06/2021 01/11/2022 Overview: Per [facility] Protocol documented as of this encounter (statuses as of 04/09/2024) Immunizations Name Administration Dates Next Due Pneumococcal [...] No 08/30/2023 Does the household have a [facility] source of income? (Household - for ages [...] Description 04/14/2024 9:15 AM EDT Imaging Radiology [address] [facility] [place] [address] 04/14/2024 10:15 AM EDT [facility] [place] [address] 06/15/2024 11:00 AM EST Imaging Radiology [address] [place] [address] 07/08/2024 11:40 AM EST Office Visit Family Practice [facility] [address] [place] [address] Roseann Plummer MD [address] [place] [address] Health Maintenance Due Date Last Done Comments [...] this encounter Medical Devices Implanted Type Area Market Intelligence Consultant Device Identifier Shelf Expiration Date Model / Serial / Lot Shell Acet Trident Ii 50mm - [id number] Implanted:Qty: 1 on 12/05/2020 by Rodolfo Park DO at OR [facility] Right: Hip KANDICE : ORTHOPAEDICS 09/04/2024 702-04-50D / / [id number] Trident Acetabular X3 0 36 D - [id number] Implanted:Qty: 1 on 12/05/2020 by Rodolfo Park DO at OR [facility] Right: Hip KANDICE : ORTHOPAEDICS 09/14/2025 723-00-36D / / [id number] Hip Hd Nk Alumina D 36/ 25 - [id number] Implanted:Qty: 1 on 12/05/2020 by Rodolfo Park DO at OR [facility] Right: Hip KANDICE : ORTHOPAEDICS 10/03/2025 6570-0-436 / / [id number] Accolade Ii 127 Deg Sz 4 - [id number] Implanted:Qty: 1 on 12/05/2020 by Rodolfo Park DO at OR [facility] Right: Hip KANDICE : ORTHOPAEDICS 11/07/2025 [id number] / / [id number] documented as of this encounter Advance Directives [...] the patient have Health Care Power of Screen Printing Stencil Preparer? Yes, not currently available Care Teams Inspector Circuitry Negative Relationship Specialty Start Date End Date Roseann Plummer MD [address] [place] [phone] PCP - General Internal Medicine 11/05/22 documented as of this encounter
--- OUTSIDE RECORDS SUMMARY | 2024-05-09 10:23 | External Medical Summary | Summary of Care ---
Author Name Unknown Organization [facility] Address [address] [place] [address] Phone [phone] Care Team Providers Care Custom Tailor Name Role Phone Roseann Plummer MD Primary Care Provider Reason for Visit * Reason Onset Date Comments Medication Refill 05/07/2024 Encounter Details Date Type Department Care Team (Late st Contact Info) Description 05/07/2024 Refill Family Practice [facility] [place] [address] [place] [address] Joe [place], [address] [place] [address] Cough Allergies Active Allergy Reactions Criticality Noted Date Comments Buspirone Rash 11/01/2022 documented as of this encounter (statuses as of 05/08/2024) Medications Medication Sig Dispensed Refills Start Date End Date Status methADONE 10 MG Tablet Take 1 Tablet by mouth once. 100mg daily Active Bisacodyl 5 MG Oral Tablet Delayed [...] Chloride ER 20 MEQ Oral Tablet Extended ReleaseIndications :Hypokalemia Take 1 Tablet by mouth 2 times a day. 60 Tablet 12/16/2023 Active DULoxetine HCl 30 MG Oral Capsule Delayed Release Particles (Cymbalta)Indicati ons:Mood disorder (HCC) Take 1 Capsule by mouth in the morning. Every morning.. 90 Capsule 3 01/01/2024 Active Metoprolol Succinate ER 25 MG Oral Tablet Extended Release 24 Hour (toPROL XL)Indications:HTN , goal below 130/80 take 1 tablet by mouth twice a day 180 Tablet 2 01/01/2024 Active amLODIPine Besylate 10 MG Oral Tablet (Norvasc)Indicatio ns:HTN, goal below 130/80 Take 1 Tablet by [...] by mouth in the morning. 30 Tablet 02/19/2024 Active Clobetasol Propionate 0.05 % External Cream (Temovate)Indicati ons:Psoriasis vulgaris Apply to rash on buttocks and thighs twice daily for 2 weeks 60 g 5 02/26/2024 Active Magnesium Oxide 400 MG Oral TabletIndications: Hypomagnesemia Take 2 Tablets by mouth at bedtime. 60 Tablet 02/28/2024 Active oxyCODONE-Acetamin ophen 5-325 MG Oral Tablet (Percocet) Take 1 Tablet by mouth every 4 hours as needed for Pain, Moderate. 15 Tablet 03/12/2024 Active oxyCODONE-Acetamin ophen 5-325 MG Oral Tablet (Percocet) Take 1 Tablet by mouth every 4 hours as needed for Pain, Moderate. 15 Tablet 03/16/2024 Active diazePAM 5 MG Oral Tablet (Valium)Indication s:Situational anxiety Take 1 tab by mouth 45-[address] scan. Do not mix with alcohol. Do not drive. 2 Tablet 04/09/2024 Active Albuterol Sulfate HFA 108 (90 Base) MCG/ACT Inhalation Aerosol SolutionIndication s:Cough INHALE 2 PUFFS BY MOUTH EVERY 6 HOURS NEEDED FOR COUGH 18 g 5 05/08/2024 Active Albuterol Sulfate HFA 108 (90 Base) MCG/ACT Inhalation Aerosol SolutionIndication s:Cough INHALE 2 PUFFS BY MOUTH EVERY 6 HOURS NEEDED FOR COUGH 18 g 5 11/18/2022 Discontinue d(Refill) Hospital, Clinic, or Other Facility Administered Medication Ordered Dose Route Frequency Start Date End Date Status Albuterol Sulfate (Proventil) (2.5 MG/3ML) 0.083% inhalation solution 2.5 mgIndications:COPD, mild (HCC) 2.5 mg NEBULIZER PRN 10/11/2022 Active documented as of this encounter (statuses as of 05/08/2024) Active Problems Problem Noted Date Diagnosed Date [...] as of this encounter (statuses as of 05/08/2024) Resolved Problems Problem Noted Date Diagnosed Date Resolved Date Chronic kidney disease, stage 3a 10/08/2022 03/01/2023 Overview: Per CKD protocol Substance abuse 05/25/2022 03/01/2023 Thrombocytopenia 05/25/2022 09/06/2023 Food insecurity 03/06/2021 01/11/2022 Overview: Per [facility] Protocol documented as of this encounter (statuses as of 05/08/2024) Immunizations Name Administration Dates Next Due Pneumococcal [...] the money to buy more. Never true 05/07/20 24 Within the past 12 months, t he food you bought just didn't last and you didn't have money to get more. Never true 05/07/2024 Childcare Answer Date Recorded Do you feel overwhelmed with taking care of a child, family member or friend? No 05/07/2024 Does your family need help f inding childcare? (Household - for ages 0-17 years) Not on file 05/07/2024 Clothing Answer Date Recorded Have you been unable to get clothing when it was really needed? No 05/07/2024 Is your family able to get c lothes or diapers when needed? (Household - for ages 0-17 years) Not on file 05/07/2024 Personal Safety Answer Date Recorded Do you feel unsafe or have concerns for your saf ety? No 05/07/2024 Do you have concerns for you r family's safety? (Household - for ages 0-17 years) Not on file 05/07/2024 Utilities Answer Date Recorded Do you have trouble paying y our heating, water, or electric bill? No 05/07/2024 Is your family able to pay t he heat, water, or electric bill? (Household - for ages 0-17 years) Not on file 05/07/2024 Does your family have access to good internet? (Household - for ages 0-17 years) Not on file 05/07/2024 Employment Status Answer Date Recorded Are you unemployed or without regular income? No 05/07/2024 Does the household have a re gular source of income? (Household - for ages 0-17 years) Not on file 05/07/2024 Social Connections Answer Date Recorded How often do you feel lonely or isolated from those around you? Sometimes 05/07/2024 Financial Resource Strain Answer Date R ecorded Do you have any trouble payi ng for your medications, or do you think you might in the future? No 05/07/2024 Does your family have troubl e paying for medicine? (Household - for ages 0-17 years) Not on file 05/07/2024 Transportation Needs Answer Date Record ed READ ONLY Do you have troubl e getting a ride to medical visits or work? Sometimes True 05/07/2024 Does your family have a hard time getting a ride to doctors visits? (Household - for ages 0-17 years) Not on file 05/07/2024 Has lack of transportation k ept you from medical appointments, meetings, work, or from getting things needed for daily living? Check all that apply. Yes, it has kept me from medical appointments 05/07/2024 Do you (or your family) have trouble finding or paying for a ride (transportation)? (Household - for ages 0-17 years) Not on file 05/07/2024 Housing Stability Answer Date Recorded Do you currently live in a s helter or have no steady place to sleep at night? No 05/07/2024 READ ONLY Do you think you a re at risk of becoming homeless? No 05/07/2024 Does your family worry about paying for your home or becoming homeless? (Household - for ages 0-17 years) Not on file 1 Are you homeless or worried that you might be in the future? No 05/07/2024 Are you (or your family) irina eless or worried that you might be in the future? (Household - for ages 0-17 years) Not on file Food Insecurity Answer Date Recorded Do you need food for this week? No 05/07/2024 Are you able to get enough f ood for your family? (Household - for ages 0-17 years) Not on file 05/07/2024 Does your family need food t his week? (Household - for ages 0-17 years) Not on file 05/07/2024 Do you always have enough fo od for your family? (Household - for ages 0-17 years) Not on file 05/07/2024 Sex and Gender Information Value Date Recorded [...] Telephone Encounter - Roseann Plummer MD - 05/08/2024 5:39 PM EDT Signed Prescriptions: Disp Refills Albuterol Sulfate HFA 108 (90 Base) MCG/AC*18 g 5 Sig: INHALE 2 PUFFS BY MOUTH EVERY 6 HOURS NEEDED FOR COUGH Authorizing Provider: ROSEANN PLUMMER * Telephone Encounter - Myrna Salmeron LPN - 05/08/2024 8:29 AM EDTPending Prescriptions: Disp Refills Albuterol Sulfate HFA 108 (90 Base) MCG/AC*18 g 5 Sig: INHALE 2 PUFFS BY MOUTH EVERY 6 HOURS NEEDED FOR COUGH * Telephone Encounter - Myrna Salmeron LPN - 05/08/2024 8:29 AM EDT Did you pend patient's preferred pharmacy and medication before forwarding?yes Pharmacy: [facility] [id number] Pending Prescriptions: Disp Refills Albuterol Sulfate HFA 108 (90 Base) MCG/A*18 g 5 Sig: INHALE 2 PUFFS BY MOUTH EVERY 6 HOURS NEEDED FOR COUGH Last Visit: Visit date not found (in office), Visit date not found (telemedicine) Next Visit: Visit date not found If no future appointments scheduled, and last appointment is greater than a year ago, please schedule patient for a follow-up appointment Last date the medication was ordered: 11/18/22 Is this request for a controlled substance? Urine Drug Screen:No results found for this or any previous visit. Patient Phone Numbers Labs: Lab Results Component Value Date/Time CREAT 0.8 04/10/2024 11:05 AM CREAT 0.92 10/09/2022 12:00 AM CREAT 0.8 02/29/2020 12:27 PM POTASSIUM 4.7 03/04/2024 09:32 AM POTASSIUM 3.3 (A) 10/09/2022 12:00 AM POTASSIUM 3.9 02/29/2020 12:27 PM TSH 2.82 05/25/2022 12:46 PM TSH 2.11 02/29/2020 12:27 PM LDL 196 (H) 11/25/2020 12:32 PM LDL 205 (H) 02/29/2020 12:27 PM LDL NOT APPLICABLE 02/29/2020 12:27 PM ALT 122 (H) 03/04/2024 09:32 AM ALT 21 02/29/2020 12:27 PM HGBA1C 5.6 11/25/2020 12:32 PM * Telephone Encounter - Gris Cheema LPN - 05/07/2024 5:03 PM EDT Pending Prescriptions: Disp Refills Albuterol Sulfate HFA 108 (90 Base) MCG/AC*18 g 5 documented in this encounter Plan of Treatment Upcoming Encounters Date Type Department Care Team (Late st Contact Info) Description 07/08/2024 11:40 AM EST Office Visit [facility] [address] [place] [address] Roseann Plummer MD [address] [place] [address] Health Maintenance Due Date Last Done Comments [...] this encounter Medical Devices Implanted Type Area Oracle Applications Developer Device Identifier Shelf Expiration Date Model / Serial / Lot Shell Acet Trident Ii 50mm - [id number] Implanted:Qty: 1 on 12/05/2020 by Rodolfo Park DO at OR [facility] Right: Hip KANDICE : ORTHOPAED[employer] 09/04/2024 702-04-50D / / [id number] Trident Acetabular X3 0 36 D - [id number] Implanted:Qty: 1 on 12/05/2020 by Rodolfo Park DO at OR [facility] Right: Hip KANDICE : ORTHOPAEDICS 09/14/2025 723-00-36D / / [id number] Hip Hd Perry Hummel 36/ 25 - [id number] Implanted:Qty: 1 on 12/05/2020 by Rodolfo Park DO at OR [facility] Right: Hip KANDICE : ORTHOPAEDICS 10/03/2025 6570-0-436 / / [id number] Accolade Ii 127 Deg Sz 4 - [id number] Implanted:Qty: 1 on 12/05/2020 by Rodolfo Park DO at OR [facility] Right: Hip KANDICE : ORTHOPAEDICS 11/07/2025 9431-8720 / / [id number] documented as of this encounter Visit Diagnoses Diagnosis Cough documented in this encounter Advance Directives * [...] the patient have Health Care Power of Merchandising Intern? Yes, not currently available Care Teams Custom Tailor Relationship Specialty Start Date End Date Roseann Plummer MD [address] [facility] [place] [address] PCP - General Internal Medicine 11/05/22 documented as of this encounter
--- OUTSIDE RECORDS SUMMARY | 2024-05-09 10:23 | External Medical Summary | Summary of Care ---
Author Name Unknown Organization [facility] Address [address] [place] [address] Phone [phone] Care Team Providers Care Facility Worker Name Role Phone Roseann Plummer MD Primary Care Provider Reason for Visit * Reason Onset Date Comments Medication Refill 04/07/2024 Encounter Details Date Type Department Care Team (Late st Contact Info) Description 04/07/2024 Refill Family Practice [facility] [address] [facility] [place] [address] Rajesh Nicole MD [address] [facility] [address] Situational anxiety Allergies Active Allergy Reactions Criticality [...] at bedtime. 60 Tablet 11 02/28/2024 Active oxyCODONE-Acetamin ophen 5-325 MG Oral [...] Do not drive. 2 Tablet 04/09/2024 Active diazePAM 5 MG Oral Tablet (Valium)Indication s:Situational anxiety Take 1 tab by mouth 45-[address] scan. Do not mix with alcohol. Do not drive. 2 Tablet 03/13/2024 Discontinue d(Refill) Hospital, Clinic, or Other Facility [...] Telephone Encounter - Roseann Plummer MD - 04/09/2024 9:27 AM EDT Signed Prescriptions: Disp Refills diazePAM 5 MG Oral Tablet (Valium) 2 Tabl*0 Sig: Take 1 tab by mouth 45-[address] scan. Do not mix with alcohol. Do not drive.Authorizing Provider: ROSEANN PLUMMER * Telephone Encounter - Roseann Plummer MD - 04/09/2024 9:26 AM EDT I have reviewed the patient's controlled substance dispensing history in the Prescription Drug Monitoring Program in compliance with the [facility] regulations before prescribing a controlled substance. * Telephone Encounter - Nory Adams [facility] - 04/09/2024 9:06 AM EDTPending Prescriptions: Disp Refills diazePAM 5 MG Oral Tablet (Valium) 2 Tabl*0 Sig: Take 1 tab by mouth 45-[address] scan[address] Do not mix with alcohol. Do not drive. * Telephone Encounter - Nory Adams [facility] - 04/09/2024 9:06 AM EDT I have reviewed the patients controlled substance dispensing history in the Prescription Drug Monitoring Program in compliance with the [facility] regulations before prescribing a controlled substance. PDMP checked on 04/09/2024. Pending Prescriptions: Disp Refills diazePAM 5 MG Oral Tablet (Valium) 2 Tabl*0 Sig: Take 1 tab by mouth 45-[address] scan[address] Do not mix with alcohol. Do not drive. Last Visit: 02/21/2024 (in office), Visit date not found (telemedicine) Next Visit: 07/08/2024 Date medication was last filled: 03/13/24 Date medication is due for refill: 03/14/24 Pharmacy: [facility] [id number] Is this request for a controlled substance? Yes and Urine Drug Screen Not completed Toxicology results: No results found for this or any previous visit. Please approve if appropriate. Thanks, Nory Adams Clinical Pharmacist [facility] [phone] 04/09/2024, 9:06 AM documented in this encounter Plan of Treatment Upcoming Encounters Date Type Department Care Team (Late st Contact Info) Description 04/14/2024 9:15 AM EDT Imaging Radiology [facility] [address] [address] 04/14/2024 10:15 AM EDT Imaging Radiology [address] [place] [address] 06/15/2024 11:00 AM EST Imaging Radiology [facility] 1st [facility] [place] [address] [place] [address] 07/08/2024 11:40 AM EST Office Visit Family Practice [facility] [address] [place] [address] Roseann Plummer MD [address] [place] [address] Health Maintenance Due Date Last Done Comments [...] this encounter Medical Devices Implanted Type Area Station Captain Device Identifier Shelf Expiration Date Model / Serial / Lot Shell Acet Trident Ii 50mm - [id number] Implanted:Qty: 1 on 12/05/2020 by Rodolfo Park, DO at OR [facility] Right: Hip KANDICE : ORTHOPAEDICS 09/04/2024 702-04-50D / / [id number] Trident Acetabular X3 0 36 D - [id number] Implanted:Qty: 1 on 12/05/2020 by Rodolfo Park DO at OR [facility] Right: Hip KANDICE : ORTHOPAEDICS 09/14/2025 723-00-36D / / [id number] Hip Hd Perry Hummel 36/ 25 - [id number] Implanted:Qty: 1 on 12/05/2020 by Rodolfo Park DO at OR [facility] Right: Hip KANDICE : ORTHOPAEDICS 10/03/2025 6570-0-436 / / [id number] Accolade Ii 127 Deg Sz 4 - [id number] Implanted:Qty: 1 on 12/05/2020 by Rodolfo Park DO at OR [facility] Right: Hip KANDICE : ORTHOPAEDICS 11/07/2025 9972-3864 / / [id number] documented as of this encounter Visit Diagnoses Diagnosis Situational anxiety Other anxiety states documented in this encounter Advance Directives * [...] the patient have Health Care Power of End Lathe Operator? Yes, not currently available Care Teams Facility Worker Relationship Specialty Start Date End Date Roseann Plummer MD [address] [place] [address] PCP - General Internal Medicine 11/05/22 documented as of this encounter
--- OUTSIDE RECORDS SUMMARY | 2024-05-09 10:24 | External Medical Summary | Summary of Care ---
Author Name Unknown Organization [facility] Address [address] [place] [address] Phone [phone] Care Team Providers Care High Worker Name Role Phone Roseann Plummer MD Primary Care Provider Reason for Visit * Reason Onset Date Comments Medication Refill 03/12/2024 Encounter Details Date Type Department Care Team (Late st Contact Info) Description 03/12/2024 Refill Family Practice [facility] [address] [place] [address] Roseann Plummer MD [address] [place] [address] Hypokalemia Allergies Active Allergy Reactions Criticality Noted Date Comments Buspirone Rash 11/01/2022 documented as of this encounter (statuses as of 03/12/2024) Medications Medication Sig Dispensed Refills Start Date [...] a day 180 Tablet 2 01/01/2024 Active diazePAM 5 MG Oral Tablet (Valium)Indications: Situational anxiety Take 1 tab by mouth 45-[address] scan. Do not mix with alcohol. Do not drive. 2 Tablet 01/07/2024 Active amLODIPine Besylate 10 MG Oral Tablet [...] at bedtime. 60 Tablet 11 02/28/2024 Active Hospital, Clinic, or Other Facility Administered Medication Ordered Dose Route Frequency Start Date End Date Status Albuterol Sulfate (Proventil) (2.5 MG/3ML) 0.083% inhalation solution 2.5 mgIndications:COPD, mild (HCC) 2.5 mg NEBULIZER PRN 10/11/2022 Active documented as of this encounter (statuses as of 03/12/2024) Active Problems Problem Noted Date Diagnosed Date [...] as of this encounter (statuses as of 03/12/2024) Resolved Problems Problem Noted Date Diagnosed Date Resolved Date Chronic kidney disease, stage 3a 10/08/2022 03/01/2023 Overview: Per CKD protocol Substance abuse 05/25/2022 03/01/2023 Thrombocytopenia 05/25/2022 09/06/2023 Food insecurity 03/06/2021 01/11/2022 Overview: Per [facility] Protocol documented as of this encounter (statuses as of 03/12/2024) Immunizations Name Administration Dates Next Due Pneumococcal [...] encounter Miscellaneous Notes * Telephone Encounter - Celeste Vines formerly [facility] - 03/12/2024 7:47 AM EDTRefused Prescriptions: Disp Refills Potassium Chloride ER 20 MEQ Oral Tablet E*60 Tab*5 Sig: Take 1Tablet by mouth 2 times a day.Refused By: CELESTE VINES MReason for Refusal: Too soon documented in this encounter Plan of Treatment Upcoming Encounters Date Type Department Care Team (Late st Contact Info) Description 03/26/2024 2:15 PM EDT Office Visit General Surgery, [facility] [address] [address] Rodolfo Fitzgerald MD [address] [place] [address] 03/31/2024 12:00 PM EDT Office Visit Pulmonary Medicine, [facility] [address] [place] [address] Huan Branham MD [address] [place] [address] 06/15/2024 11:00 AM EST Imaging Radiology [facility] 1st [facility] [address] [place] [address] 07/08/2024 11:40 AM EST Office Visit Family Practice [facility] [address] [place] [address] Roseann Plummer MD [address] [place] [address] Health Maintenance Due Date Last Done Comments [...] this encounter Medical Devices Implanted Type Area Licensing Registration Examiner Device Identifier Shelf Expiration Date Model / Serial / Lot Shell Acet Trident Ii 50mm - [id number] Implanted:Qty: 1 on 12/05/2020 by Rodolfo Park, at OR [facility] Right: Hip KANDICE : ORTHOPAEDICS 09/04/2024 702-04-50D / / [id number] Trident Acetabular X3 0 36 D - [id number] Implanted:Qty: 1 on 12/05/2020 by Rodolfo Park, DO at OR [facility] Right: Hip KANDICE : ORTHOPAEDICS 09/14/2025 723-00-36D / / [id number] Hip Elpidio Hummel [id number] Implanted:Qty: 1 on 12/05/2020 by Rodolfo Park, DO at OR [facility] Right: Hip KANDICE : ORTHOPAEDICS 10/03/2025 6570-0-436 / / [id number] Accolade Ii 127 Deg Sz - [id number] Implanted:Qty: 1 on 12/05/2020 by Rodolfo Park, DO at OR [facility] Right: Hip KANDICE : ORTHOPAEDICS 11/07/2025 9945-5238 / / [id number] documented as of this encounter Visit Diagnoses Diagnosis Hypokalemia Hypopotassemia documented in this encounter Advance Directives * [...] the patient have Health Care Power of Classroom Technology Coach? Yes, not currently available Care Teams High Worker Relationship Specialty Start Date End Date Roseann Plummer MD [address] [place] [address] PCP - General Internal Medicine 11/05/22 documented as of this encounter
--- OUTSIDE RECORDS SUMMARY | 2024-05-09 10:24 | External Medical Summary | Summary of Care ---
Author Name Unknown Organization [facility] Address [address] [place] [address] Phone [phone] Care Team Providers Care Paranormal Investigator Name Role Phone Roseann Plummer MD Primary Care Provider Reason for Visit * Reason Onset Date Comments Medication Refill 03/12/2024 Encounter Details Date Type Department Care Team (Late st Contact Info) Description 03/12/[address] [facility] [address] [facility] [place] [address] [facility] Segovia [facility] [address] [facility] [address] Situational anxiety Allergies Active Allergy Reactions Criticality Noted Date Comments Buspirone Rash 11/01/2022 documented as of this encounter (statuses as of 03/13/2024) Medications Medication Sig Dispensed Refills Start Date [...] 02/28/2024 Active diazePAM 5 MG Oral Tablet (Valium)Indication s:Situational anxiety Take 1 tab by mouth 45-[address] scan. Do not mix with alcohol. Do not drive. 2 Tablet 03/13/2024 Active oxyCODONE-Acetamin ophen 5-325 MG Oral Tablet (Percocet) Take 1 Tablet by mouth every 4 hours as needed for Pain, Moderate. 15 Tablet 03/12/2024 Active diazePAM 5 MG Oral Tablet (Valium)Indication s:Situational anxiety Take 1 tab by mouth 45-[address] scan. Do not mix with alcohol. Do not drive. 2 Tablet 01/07/2024 Discontinue d(Refill) Hospital, Clinic, or Other Facility Administered Medication Ordered Dose Route Frequency Start Date End Date Status Albuterol Sulfate (Proventil) (2.5 MG/3ML) 0.083% inhalation solution 2.5 mgIndications:COPD, mild (HCC) 2.5 mg NEBULIZER PRN 10/11/2022 Active documented as of this encounter (statuses as of 03/13/2024) Active Problems Problem Noted Date Diagnosed Date [...] as of this encounter (statuses as of 03/13/2024) Resolved Problems Problem Noted Date Diagnosed Date Resolved Date Chronic kidney disease, stage 3a 10/08/2022 03/01/2023 Overview: Per CKD protocol Substance abuse 05/25/2022 03/01/2023 Thrombocytopenia 05/25/2022 09/06/2023 Food insecurity 03/06/2021 01/11/2022 Overview: Per [facility] Protocol documented as of this encounter (statuses as of 03/13/2024) Immunizations Name Administration Dates Next Due Pneumococcal [...] Miscellaneous Notes * Telephone Encounter - Rajesh Segovia MD - 03/13/2024 1:01 PM EDTSigned Prescriptions: Disp Refills diazePAM 5 MG Oral Tablet (Valium) 2 Tabl*0 Sig: Take 1 tab by mouth 45-[address] scan. Do not mix with alcohol. Do not drive. Authorizing Provider: RAJESH SEGOVIA * Telephone Encounter - Lisa Seymour [facility] - 03/13/2024 10:52 AM EDTPending Prescriptions: Disp Refills diazePAM 5 MG Oral Tablet (Valium) 2 Tabl*0 Sig: Take 1 tab by mouth 45-[address] scan. Do not mix with alcohol. Do not drive. * Telephone Encounter - Lisa Seymour [facility] - 03/13/2024 10:51 AM EDT I have reviewed the patients controlled substance dispensing history in the Prescription Drug Monitoring Program in compliance with the [facility] regulations before prescribing a controlled substance. PDMP checked on 03/13/2024. Pending Prescriptions: Disp Refills diazePAM 5 MG Oral Tablet (Valium) 2 Tabl*0 Sig: Take 1 tab by mouth 45-[address] scan. Do not mix with alcohol. Do not drive. Last Visit: 02/21/2024 (in office), Visit date not found (telemedicine) Next Visit: 07/08/2024 Date medication was last filled: 01/06 Date medication is due for refill: 01/07 Pharmacy: [facility] [id number] Is this request for a controlled substance? Yes and Urine Drug Screen Not completed Toxicology results: No results found for this or any previous visit. Please approve if appropriate. Thank you, Lisa Seymour, PharmD Clinical Pharmacist [facility] ([facility]) [phone] 03/13/2024, 10:52 AM documented in this encounter Plan of Treatment Upcoming Encounters Date Type Department Care Team (Late st Contact Info) Description 03/26/2024 2:15 PM EDT Office Visit General Surgery, [facility] 132 [facility] [place] [address] Rodolfo Fitzgerald MD 132 [facility] [place] [address] 03/31/2024 12:00 PM EDT Office Visit Pulmonary Medicine, [facility] [address] [place] [address] Huan Branham MD [address] [place] [address] 06/15/2024 11:00 AM EST Imaging Radiology [address] [place] [address] 07/08/2024 11:40 AM EST Office Visit Family [facility] [address] [place] [address] Roseann Plummer MD [address] [place] [address] Health Maintenance Due Date Last Done Comments [...] this encounter Medical Devices Implanted Type Area Branch Manager Trainee Device Identifier Shelf Expiration Date Model / Serial / Lot Shell Acet Trident Ii 50mm - [id number] Implanted:Qty: 1 on 12/05/2020 by Rodolfo Park, DO at OR [facility] Right: Hip KANDICE : ORTHOPAEDICS 09/04/2024 702-04-50D / / [id number] Trident Acetabular X3 0 36 D - [id number] Implanted:Qty: 1 on 12/05/2020 by Rodolfo Park DO at OR [facility] Right: Hip KANDICE : ORTHOPAEDICS 09/14/2025 723-00-36D / / [id number] Hip Hd Perry Hummel 36/ 25 - [id number] Implanted:Qty: 1 on 12/05/2020 by Rodolfo Park DO at OR [facility] Right: Hip KANDICE : ORTHOPAEDICS 10/03/2025 6570-0-436 / / [id number] Accolade Ii 127 Deg Sz 4 - [id number] Implanted:Qty: 1 on 12/05/2020 by Rodolfo Park DO at OR [facility] Right: Hip KANDICE : ORTHOPAEDICS 11/07/2025 [id number] / / [id number] documented as of this encounter Visit Diagnoses [...] the patient have Health Care Power of Shopfitter? Yes, not currently available Care Teams Paranormal Investigator Relationship Specialty Start Date End Date Roseann Plummer MD [address] [place] [address] PCP - General Internal Medicine 11/05/22 documented as of this encounter
--- OUTSIDE RECORDS SUMMARY | 2024-05-09 10:24 | External Medical Summary | Summary of Care ---
Author Name Unknown Organization [facility] Address [address] [place] [address] Phone [phone] Care Team Providers Care Field Reviewer Name Role Phone Roseann Plummer MD Primary Care Provider Reason for Visit * Reason Onset Date Comments Advice 03/17/2024 Encounter Details Date Type Department Care Team ([facility] st Contact Info) Description 03/17/2024 Telephone Pulmonary Medicine, [facility] [address] [place] [address] Services, Scheduling [address] [place] [address] Advice Allergies Active Allergy Reactions Criticality Noted Date [...] No 08/30/2023 Does the household have a [facility] source of income? (Household - for [...] encounter Miscellaneous Notes * Telephone Encounter - Kell Sams OSA [...] 2:15 PM EDT Office Visit General Surgery, [facility] [address] [place] [address] Rodolfo Fitzgerald MD [address] [place] [address] 03/31/2024 12:00 PM EDT Office Visit Pulmonary Medicine, [facility] [address] [place] [address] Huan Branham MD [address] [facility] [place] [address] 06/15/2024 11:00 AM EST Imaging Radiology [facility] [address] [place] [address] 07/08/2024 11:40 AM EST Office Visit Family Practice [facility] [address] [place] [address] Roseann Plummer MD 132 [place] [address] Health Maintenance Due Date Last Done Comments [...] this encounter Medical Devices Implanted Type Area Content Manager Device Identifier Shelf Expiration Date Model / Serial / Lot Shell Acet Trident Ii 50mm - [id number] Implanted:Qty: 1 on 12/05/2020 by Rodolfo Park DO at OR [facility] Right: Hip KANDICE : ORTHOPAEDICS 09/04/2024 702-04-50D / / [id number] Trident Acetabular X3 0 36 D - [id number] Implanted:Qty: 1 on 12/05/2020 by Rodolfo Park DO at OR [facility] Right: Hip KANDICE : ORTHOPAEDICS 09/14/2025 723-00-36D / / [id number] Hip Hd Perry Hummel [id number] Implanted:Qty: 1 on 12/05/2020 by Rodolfo Park DO at OR [facility] Right: Hip KANDICE : ORTHOPAEDICS 10/03/2025 6570-0-436 / / [id number] Accolade Ii 127 Deg Sz - [id number] Implanted:Qty: 1 on 12/05/2020 by Rodolfo Park DO at OR [facility] Right: Hip KANDICE : ORTHOPAEDICS 11/07/2025 2764-2052 / / [id number] documented as of this encounter Advance Directives [...] the patient have Health Care Power of Metallurgical Technician? Yes, not currently available Care Teams Field Reviewer Relationship Specialty Start Date End Date Roseann Plummer MD [address] [place] [address] PCP - General Internal Medicine 11/05/22 documented as of this encounter
--- OUTSIDE RECORDS SUMMARY | 2024-05-09 10:24 | External Medical Summary | Summary of Care ---
Author Name Unknown Organization [facility] Address [address] [place] [address] Phone [phone] Care Team Providers Care Nursing Department Chairperson Name Role Phone Roseann Plummer MD Primary Care Provider Reason for Visit * Reason Onset Date Comments Follow Up 03/11/2024 Encounter Details Date Type Department Care Team ([facility] st Contact Info) Description 03/11/2024 9:15 AM EDT Scheduled Telephone General Surgery, [facility] [address] [place] [address] [place], Nurse Gen Surg [facility] [address] [place] [address] Arrived Allergies Active Allergy Reactions Criticality Noted Date Comments Buspirone Rash 11/01/2022 documented as of this encounter (statuses as of 03/11/2024) Medications Medication Sig Dispensed Refills Start Date [...] as of this encounter (statuses as of 03/11/2024) Active Problems Problem Noted Date Diagnosed Date [...] as of this encounter (statuses as of 03/11/2024) Resolved Problems Problem Noted Date Diagnosed Date Resolved Date Chronic kidney disease, stage 3a 10/08/2022 03/01/2023 Overview: Per CKD protocol Substance abuse 05/25/2022 03/01/2023 Thrombocytopenia 05/25/2022 09/06/2023 Food insecurity 03/06/2021 01/11/2022 Overview: Per [facility] Protocol documented as of this encounter (statuses as of 03/11/2024) Immunizations Name Administration Dates Next Due Pneumococcal [...] encounter Miscellaneous Notes * Telephone Encounter - Margret Tang LPN - 03/11/2024 8:41 AM EDT PATIENT IS S/p lap piero on 03/09/[address] Rodolfo Fitzgerald Pain Level- 9 Meds being taken for pain- percocet Are pain meds effective- yes Incision sites- no redness or drainage Does the patient have a drain- no Does the patient have dressings? Are they aware of dressing instructions- yes Appetite- good Nausea/vomiting- no Bowel movement- this morning Activity- walking Complying with activity restrictions- yes Coughing and deep breathing- yes Questions or concerns- no Post operative follow up scheduled for 03/26/2024 documented in this encounter Plan of Treatment Upcoming Encounters Date Type Department Care Team (Late st Contact Info) Description 03/26/2024 2:15 PM EDT Office Visit General Surgery, [facility] 132 [facility] [place] [address] Rodolfo Fitzgerald MD [address] [place] [address] 03/31/2024 12:00 PM EDT Office Visit Pulmonary Medicine, [facility] 132 [facility] [place] [address] Huan Branham MD [address] [place] [address] 06/15/2024 11:00 AM EST [facility] [address] [place] [address] 07/08/2024 11:40 AM EST Office Visit Family Practice [facility] 132 [facility] [place] [address] Roseann Plummer MD [address] [place] [address] Health Maintenance Due Date Last Done Comments [...] FOR COPD 02/20/2025 02/21/2024 GFR 03/04/2025 03/04/2024, 0502/2024, 12/16/2023, Additional history exists Albumin/Creatinine Ratio 04/26/2025 [...] this encounter Medical Devices Implanted Type Area Non Destructive Testing Supervisor Device Identifier Shelf Expiration Date Model / Serial / Lot Shell Acet Trident Ii 50mm - [id number] Implanted:Qty: 1 on 12/05/2020 by Rodolfo Park, DO at OR [facility] Right: Hip KANDICE : ORTHOPAEDICS 09/04/2024 702-04-50D / / [id number] Trident Acetabular X3 0 36 D - [id number] Implanted:Qty: 1 on 12/05/2020 by Rodolfo Park DO at OR [facility] Right: Hip KANDICE : ORTHOPAEDICS 09/14/2025 723-00-36D / / [id number] Hip Hd Perry Hummel 36/ 25 - [id number] Implanted:Qty: 1 on 12/05/2020 by Rodolfo Park DO at OR [facility] Right: Hip KANDICE : ORTHOPAEDICS 10/03/2025 6570-0-436 / / [id number] Accolade Ii 127 Deg Sz 4 - [id number] Implanted:Qty: 1 on 12/05/2020 by Rodolfo Park DO at OR [facility] Right: Hip KANDICE : ORTHOPAEDICS 11/07/2025 [id number] / / [id number] documented as of this encounter Advance Directives [...] the patient have Health Care Power of Ux Developer? Yes, not currently available Care Teams Nursing Department Chairperson Relationship Specialty Start Date End Date Roseann Plummer MD 132 [facility] [place] [address] PCP - General Internal Medicine 11/05/22 documented as of this encounter
--- OUTSIDE RECORDS SUMMARY | 2024-05-09 10:24 | External Medical Summary | Summary of Care ---
Author Name Unknown Organization [facility] Address [address] [place] [address] Phone [phone] Care Team Providers Care Ware Tester Name Role Phone Roseann Plummer MD Primary Care Provider Reason for Visit * Reason Onset Date Comments Advice 03/17/2024 Encounter Details Date Type Department Care Team ([facility] st Contact Info) Description 03/17/2024 Telephone Pulmonary Medicine, [facility] [address] [place] [address] Services, Scheduling [address] [place] [address] Advice Allergies Active Allergy Reactions Criticality Noted [...] No 08/30/2023 Does the household have a [facility] source [facility]? (Household - for [...] 2:15 PM EDT Office Visit General Surgery, [facility] [address] [place] [address] Rodolfo Fitzgerald MD [address] [place] [address] 03/31/2024 12:00 PM EDT Office Visit Pulmonary Medicine, [facility] [address] [place] [address] Huan Branham MD [address] [place] [address] 06/15/2024 11:00 AM EST Imaging Radiology [address] [place] [address] 07/08/2024 11:40 AM EST Office Visit Family Practice [facility] [address] [place] [address] Roseann Plummer MD [address] [place] [address] Health Maintenance Due Date Last Done Comments [...] this encounter Medical Devices Implanted Type Area Feed House Supervisor Device Identifier Shelf Expiration Date Model / Serial / Lot Shell Acet Trident Ii 50mm - [id number] Implanted:Qty: 1 on 12/05/2020 by Rodolfo Park DO at OR [facility] Right: Hip KANDICE : ORTHOPAEDICS 09/04/2024 702-04-50D / / [id number] Trident Acetabular X3 0 36 D - [id number] Implanted:Qty: 1 on 12/05/2020 by Rodolfo Park DO at OR [facility] Right: Hip KANDICE : ORTHOPAEDICS 09/14/2025 723-00-36D / / [id number] Hip Hd Perry Alonso Md D 36/ 25 - [id number] Implanted:Qty: 1 on 12/05/2020 by Rodolfo Park DO at OR [facility] Right: Hip KANDICE : ORTHOPAEDICS 10/03/2025 6570-0-436 / / [id number] Accolade Ii 127 Deg Sz 4 - [id number] Implanted:Qty: 1 on 12/05/2020 by Rodolfo Park DO at OR [facility] Right: Hip KANDICE : ORTHOPAEDICS 11/07/2025 1214-6684 / / [id number] documented as of this encounter Advance Directives [...] the patient have Health Care Power of Lower School Music Teacher? Yes, not currently available Care Teams Ware Tester Relationship Specialty Start Date End Date Roseann Plummer MD [address] [place] [address] PCP - General Internal Medicine 11/05/22 documented as of this encounter
--- NOTE | 2024-05-09 10:37 | Emergency Department Note ---
Impression & Plan Acute exacerbation of chronic obstructive pulmonary disease, Acute hypoxemic respiratory failure, Acute bronchitis ED Provider Note NAME: CYNTHIA SIMON AGE: 58 SEX: F : 1965 ARRIVES VIA: Walk-In INFORMANT: Patient, ED PROVIDER(S): Jamar Sutherland DO CHIEF COMPLAINT: Shortness of breath HPI: The patient is a 58-year-old female who has a history of COPD as well as tobacco use who presented to the emergency department for an evaluation of cough and difficulty breathing. The patient has home oxygen. She has been using 4 L. She has had to increase her oxygen to help with her symptoms. The has had a productive cough for a green-yellow sputum. The patient denies having any fever or hemoptysis. She denies having any leg swelling. The patient has not been seen by her family doctor recently but came to the emergency department today because of ongoing worsening symptoms. She last used a nebulizer treatment yesterday. ROS: See above HPI for pertinent positives & negatives. A total of 10 systems reviewed and were otherwise negative. PAST MEDICAL HISTORY: See Below PAST SURGICAL HISTORY: See Below FAMILY HISTORY: See Below SOCIAL HISTORY: See Below HOME MEDICATIONS: See Below ALLERGIES: See Below VITALS: See Below PHYSICAL EXAMINATION: GENERAL: The patient is awake and alert. The patient is very anxious. EYES: The conjunctivae are clear. The pupils are round and reactive. EARS, NOSE, MOUTH AND THROAT: The nose is without any evidence of any deformity. NECK: The neck is nontender and supple. RESPIRATORY: Diminished breath sounds are noted throughout. Wheezing was noted in both lung phillips. There was conversational dyspnea. CARDIOVASCULAR: Regular rate and rhythm noted there no murmurs rubs or gallops normal S1 normal S2. GASTROINTESTINAL: The abdomen is soft. Abdomen is nontender. MUSCULOSKELETAL/EXTREMITIES: There is no evidence of gross deformity full range of motion is noted in the hips and shoulders. SKIN: Skin is warm and dry. There is no significant pedal edema. NEUROLOGIC: Patient is awake alert and oriented x3 MEDICAL DECISION MAKING: The patient is a 58-year-old female has a history of COPD and tobacco use who presented to the emergency department for shortness of breath. History and physical exam appear to be consistent with COPD exacerbation but she has been having productive sputum. Given her presentation I feel she may have some degree of acute bronchitis. She was treated with bronchodilator therapy. She was also treated with IV steroids and IV antibiotics for presumed infection. I discussed the patient's laboratory and radiographic studies with her. She stated initially that she was not drinking alcohol anymore but admitted to nursing that she did have some alcohol to try to keep from going into withdrawal. She was treated with Ativan. On reevaluation she was significantly improved. I discussed the patient's condition with the on-call [facility]. They will evaluate the patient in the emergency department. The patient does have a history of venous thromboembolic disease. She has been compliant with her outpatient medications including her Eliquis. Triage Nursing notes reviewed. Prior medical records reviewed Vital Signs: reviewed and remarkable for hypoxia. Differential diagnosis: Reactive airway disease, pneumonia, pneumothorax, COPD, CHF, infections, cardiac ischemia, pulmonary embolism, musculoskeletal, gastrointestinal, as well as other pathologies. ER treatment provided: See below Diagnostics interpreted by me: ECG: EKG was obtained in the emergency department. My interpretation is normal sinus rhythm at 82 bpm. There was no ectopy. There is no acute ST segment abnormalities noted. This was compared to a tracing from November 21, 2023. No changes were noted. Cardiac Monitoring: An order was placed for continuous cardiac monitoring. The monitor shows a rate of 94 bpm with sinus rhythm. Laboratory studies: As stated above and show below. Imaging studies: See below. Radiographic imaging was reviewed by myself Consultation(s): I discussed this case with Diana who is on-call for the [facility] group. They have agreed to evaluate the patient in the emergency department for further management and disposition. ED COURSE: Procedures: none Critical Care: I have personally spent greater than 55 minutes of critical care time in the direct management of this patient. This includes bedside care, interpretation of diagnostic studies, and testing, discussion with consultants, patient, and family members, and other required patient management activities. This 55 minutes is in excess of all separately billable procedures. Past Med/Surg History Problem List (Updated 05/09/24 @ 12:44 by Jamar Sutherland DO) Acute bronchitis (Acute) Acute exacerbation of chronic obstructive pulmonary disease (Acute) Symptomatic cholelithiasis Edema, peripheral (Acute) 11/20/23 Hypomagnesemia (Acute) 11/20/23 Hypokalemia (Acute) 11/20/23 Frequent PVCs (Acute) Bradycardia (Acute) Acute on chronic respiratory failure with hypoxia and hypercapnia 08/23/23 History of alcohol abuse Tobacco use Sepsis due to pneumonia 08/23/23 Parainfluenza infection (Acute) 08/23/23 Pneumonia (Acute) 08/23/23 Encounter for pre-operative examination Pulmonary embolism dx 08/2022 - unknown the cause. treated with anticoagulants. Pulmonary hypertension 09/13/22 Hypercapnic respiratory failure 09/13/22 Muscle cramp (Acute) 09/13/22 PAC (premature atrial contraction) (Acute) Frequent PVCs (Acute) Acute hypoxemic respiratory failure (Acute) 09/13/22 Methadone maintenance therapy patient GERD (gastroesophageal reflux disease) HTN (hypertension) COPD (chronic obstructive pulmonary disease) (Acute) Medical History Edema of both lower extremities Difficult intravenous access Pulmonary hypertension Follow with [facility] Hx of pulmonary embolus dx 08/2022 - unknown the cause. treated with anticoagulants. 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 Down to three drinks a week GERD (gastroesophageal reflux disease) History of aspiration pneumonia 08/2022 from vomiting -- reports she "passed out and vomited while she was incoherent" per KRISHNA ALEMAN COPD (chronic obstructive pulmonary disease) well controlled currently, uses 4lpm oxygen via n/c continuously Hx of sinus bradycardia episode when vitamin levels were low. no current issue History of endocarditis --- r/t IV drug use. S/P transesophageal echocardiogram ([facility]ATA) Lung nodule monitoring Constipation Anxiety On home oxygen therapy 4lpm via n/c daily Recurrent major depressive disorder Surgical History S/P right cataract extraction Status post total hip replacement, right Family History Other Family history non-contributory No family history of adverse response to anesthesia Social History Smoking Status: Current every day smoker Tobacco Type: Cigarettes Cigarettes Per Day: "a couple"; Second Hand Exposure: No; Do You Dip or Chew Tobacco: No; Hx Alcohol Use: Yes Alcohol type: beer, wine and hard liquor Hx Substance Use: Yes Last Used Substance: Days (ago) Last Used Substance Other:: remote hx of cocaine and heroin use (2008); med marijuana ~3-4x/week now Preferred Language: Norwegian Communication Ability: Effective Wheel Setter Required: No Beliefs That Will Affect Care: None Current Living Situation: Alone Feels Safe at Home: Yes Assistive Devices: Denture - Upper, Denture - Lower and Oxygen - Continuous Allergies Allergies Allergy/AdvReac Type Severity Reaction Status Date / Time fluticasone furoate AdvReac Intermediate INTENSE Verified 03/09/24 08:50 [From Trelegy Ellipta] HEADACHES umeclidinium AdvReac Intermediate INTENSE Verified 03/09/24 08:50 [From Trelegy Ellipta] HEADACHES vilanterol AdvReac Intermediate INTENSE Verified 03/09/24 08:50 [From Trelegy Ellipta] HEADACHES buspirone [From BuSpar] AdvReac Mild Rash Verified 03/09/24 08:50 olive oil AdvReac Unknown reacts Verified 03/09/24 08:50 with methadone Home Meds Home Medications Medication Instructions Recorded Confirmed amlodipine 10 mg tablet 10 mg PO QAM 05/16/22 03/09/24 duloxetine 30 mg capsule,delayed 30 mg PO QAM 05/16/22 03/09/24 release albuterol sulfate 90 mcg/actuation 2 puff inhalation Q6H PRN Cough 09/12/22 03/09/24 aerosol inhaler methadone 10 mg/5 mL oral solution 100 mg PO QAM 06/25/23 03/09/24 nicotine 7 mg/24 hr daily 1 patch transdermal DAILY 06/25/23 03/09/24 transdermal patch pantoprazole 40 mg tablet,delayed 40 mg PO QAM 06/25/23 03/09/24 release bisacodyl 5 mg tablet 5 - 10 mg PO HS PRN Constipation 08/23/23 03/09/24 melatonin 3 mg tablet 3 - 6 mg PO HS PRN sleep 08/23/23 03/09/24 metoprolol succinate 25 mg 12.5 mg PO BID 08/23/23 03/09/24 tablet,extended release 24 hr polyethylene glycol 3350 17 gram 17 g PO DAILY PRN Constipation 08/23/23 03/09/24 oral powder packet (Miralax) potassium chloride 10 mEq 10 meq PO QAM 11/20/23 03/09/24 tablet,extended release(part/cryst) folic acid 1 mg tablet 1 mg PO QAM 01/21/24 03/09/24 Previous Rx's Medication Instructions Recorded apixaban 5 mg tablet (Eliquis) 5 mg PO BID #63 tabs 09/21/22 furosemide 40 mg tablet 40 mg PO QAM #30 tabs 09/21/22 oxycodone-acetaminophen 5 mg-325 1 tab PO Q6H PRN pain #14 tabs 03/09/24 mg tablet (Percocet) Results & Data (ED) Vital Signs Vital Signs - 24 hr 05/09/24 10:18 05/09/24 10:28 05/09/24 10:28 Temperature 36.6 C Temperature Source Temporal Artery Scan Pulse Rate 90 Pulse Rate [Apical] Pulse Rate from SpO2 Sensor Pulse Rhythm Respiratory Rate 22 Respiratory Effort / Characteristics Non-Labored Spontaneous Labored Respiratory Depth Normal Shallow Respiratory Pattern Tachypnea Blood Pressure 136/71 Blood Pressure Mean 92 Blood Pressure Position Sitting Pulse Oximetry 79 L Oxygen Delivery Method Nasal Cannula Nasal Cannula Oxymask Oxygen Flow Rate 5 10 Fraction of Inspired Oxygen Sepsis Recent Fever Within 48 Hours No Sepsis New/Unexplained Change in Mental Status No Sepsis Action Taken by Nursing No Action Required 05/09/24 10:28 05/09/24 10:30 05/09/24 10:39 Temperature Temperature Source Pulse Rate 78 83 Pulse Rate [Apical] 78 Pulse Rate from SpO2 Sensor Pulse Rhythm Regular Respiratory Rate 28 H 20 Respiratory Effort / Characteristics Spontaneous Short of Breath Respiratory Depth Respiratory Pattern Blood Pressure Blood Pressure Mean Blood Pressure Position Pulse Oximetry 87 L 95 Oxygen Delivery Method Oxymask Oxymask Oxygen Flow Rate 10 10 Fraction of Inspired Oxygen Sepsis Recent Fever Within 48 Hours Sepsis New/Unexplained Change in Mental Status Sepsis Action Taken by Nursing 05/09/24 11:00 05/09/24 11:40 05/09/24 12:21 Temperature Temperature Source Pulse Rate 84 87 Pulse Rate [Apical] 94 H Pulse Rate from SpO2 Sensor 85 88 Pulse Rhythm Respiratory Rate 17 16 20 Respiratory Effort / Characteristics Spontaneous SOB on Exertion Respiratory Depth Respiratory Pattern Blood Pressure 176/106 H 123/62 Blood Pressure Mean 122 79 Blood Pressure Position Pulse Oximetry 94 91 92 Oxygen Delivery Method Aerosol Mask Oxymask High Flow Nasal Cannula Oxygen Flow Rate 8 10 30 Fraction of Inspired Oxygen 65 Sepsis Recent Fever Within 48 Hours Sepsis New/Unexplained Change in Mental Status Sepsis Action Taken by Residential Medications Current Medication List: was personally reviewed by me Laboratory Data Attestation: I reviewed the patient's lab results. 05/09/24 11:32 05/09/24 11:32 Lab Results 05/09/24 05/09/24 05/09/24 Range/Units 10:12 11:05 11:32 WBC 12.25 H (4.8-10.8) K/ul RBC 3.81 L (4.20-5.40) M/uL Hgb 12.4 (12.0-16.0) g/dl Hct 38.6 (37.0-47.0) % MCV 101.3 H (80.0-100.0) fL MCH 32.5 (25.0-34.0) pg MCHC 32.1 (32.0-36.0) g/dL RDW Std Deviation 48.4 H (36.4-46.3) fL RDW Coeff of Cee 13.1 (11.5-14.5) % Plt Count 87 L (130-400) K/uL MPV 10.7 (9.4-12.4) fL Immature Gran % (Auto) 1.4 % Neut % (Auto) 78.7 % Lymph % (Auto) 8.7 % [place] % (Auto) 6.9 % Eos % (Auto) 3.9 % Baso % (Auto) 0.4 % Neut # (Auto) 9.64 H (1.40-6.50) K/uL Lymph # (Auto) 1.07 L (1.20-3.40) K/uL [place] # (Auto) 0.84 H (0.11-0.59) K/uL Eos # (Auto) 0.48 (0.00-0.50) K/uL Baso # (Auto) 0.05 (0.00-0.20) K/uL Immature Gran # (Auto) 0.17 (0.01-0.20) K/uL Absolute Nucleated RBC 0.03 (0.00-0.12) K/uL Nucleated RBC % (auto) 0.2 % PT 11.4 (9.0-12.0) Seconds INR 1.1 (0.9-1.1) APTT 31 (21-31) Seconds PTT Ratio 1.2 VBG pH (7.36-7.41) VBG pCO2 (38-50) mmHg VBG pO2 mmHg VBG HCO3 mmol/L VBG O2 Saturation % VBG Base Excess mEq/L Sodium 135 L (136-145) mmol/L Potassium 4.0 (3.5-5.1) mmol/L Chloride 94 L (98-107) mmol/L Carbon Dioxide 35 H (21-32) mmol/L Anion Gap 6 (3-11) BUN 7 (6-23) mg/dl Creatinine 0.72 (0.6-1.2) mg/dl Est Cr Clr Drug Dosing 109.0 ml/min eGFR 98.07 BUN/Creatinine Ratio 9.7 L (10-20) Glucose 142 H (70-99(Fasting)) mg/dl Calcium 9.0 (8.6-10.3) mg/dl Magnesium 1.7 (1.7-2.4) mg/dl Total Bilirubin 0.6 (0.2-1.0) mg/dl AST 83 H (13-39) U/L ALT 118 H (7-52) U/L Alkaline Phosphatase 192 H (34-104) U/L Troponin I High Sens 5.9 (0-14) pg/ml Total Protein 7.5 (6.0-8.3) gm/dl Albumin 3.8 (3.4-5.0) gm/dl Globulin 3.7 (2.5-4.0) gm/dl Albumin/Globulin Ratio 1.0 (0.9-2) Urine Color Yellow Urine Appearance Clear (Clear) Urine pH 7.0 (4.5-7.5) Ur Specific [place] 1.007 (1.000-1.030) Urine Protein Negative (Negative) Urine Glucose (UA) Negative (Negative) Urine Ketones Negative (Negative) Urine Blood Negative (Negative) Urine Nitrite Negative (Negative) Urine Bilirubin Negative (Negative) Urine Urobilinogen Negative (Negative) Ur Leukocyte Esterase Negative (Negative) Ethyl Alcohol mg/dL < 10.0 (<10.0) mg/dl SARS-CoV-2 (PCR) NEGATIVE (Negative) Influenza Type A (PCR) Negative (Neg) Influenza Type B (PCR) Negative (Neg) RSV (RT-PCR) Negative (Neg) 10/12/24 Range/Units 12:05 WBC (4.8-10.8) K/ul RBC (4.20-5.40) M/uL Hgb (12.0-16.0) g/dl Hct (37.0-47.0) % MCV (80.0-100.0) fL MCH (25.0-34.0) pg MCHC (32.0-36.0) g/dL RDW Std Deviation (36.4-46.3) fL RDW Coeff of Cee (11.5-14.5) % Plt Count (130-400) K/uL MPV (9.4-12.4) fL Immature Gran % (Auto) % Neut % (Auto) % Lymph % (Auto) % [place] % (Auto) % Eos % (Auto) % Baso % (Auto) % Neut # (Auto) (1.40-6.50) K/uL Lymph # (Auto) (1.20-3.40) K/uL [place] # (Auto) (0.11-0.59) K/uL Eos # (Auto) (0.00-0.50) K/uL Baso # (Auto) (0.00-0.20) K/uL Immature Gran # (Auto) (0.01-0.20) K/uL Absolute Nucleated RBC (0.00-0.12) K/uL Nucleated RBC % (auto) % PT (9.0-12.0) Seconds INR (0.9-1.1) APTT (21-31) Seconds PTT Ratio VBG pH 7.39 (7.36-7.41) VBG pCO2 61 H (38-50) mmHg VBG pO2 52 mmHg VBG HCO3 37 mmol/L VBG O2 Saturation 85.6 % VBG Base Excess 9.8 mEq/L Sodium (136-145) mmol/L Potassium (3.5-5.1) mmol/L Chloride (98-107) mmol/L Carbon Dioxide (21-32) mmol/L Anion Gap (3-11) BUN (6-23) mg/dl Creatinine (0.6-1.2) mg/dl Est Cr Clr Drug Dosing ml/min eGFR BUN/Creatinine Ratio (10-20) Glucose (70-99(Fasting)) mg/dl Calcium (8.6-10.3) mg/dl Magnesium (1.7-2.4) mg/dl Total Bilirubin (0.2-1.0) mg/dl AST (13-39) U/L ALT (7-52) U/L Alkaline Phosphatase (34-104) U/L Troponin I High Sens (0-14) pg/ml Total Protein (6.0-8.3) gm/dl Albumin (3.4-5.0) gm/dl Globulin (2.5-4.0) gm/dl Albumin/Globulin Ratio (0.9-2) Urine Color Urine Appearance (Clear) Urine pH (4.5-7.5) Ur Specific [place] (1.000-1.030) Urine Protein (Negative) Urine Glucose (UA) (Negative) Urine Ketones (Negative) Urine Blood (Negative) Urine Nitrite (Negative) Urine Bilirubin (Negative) Urine Urobilinogen (Negative) Ur Leukocyte Esterase (Negative) Ethyl Alcohol mg/dL (<10.0) mg/dl SARS-CoV-2 (PCR) (Negative) Influenza Type A (PCR) (Neg) Influenza Type B (PCR) (Neg) RSV (RT-PCR) (Neg) Administered Medications Discontinued Medications Albuterol (Albut/Ipratrop 3mg/0.5mg Neb 3 Ml Vial) Confirm Administered Dose 3 ml .ROUTE .STK-MED ONE Stop: 05/09/24 10:29 Last Admin: 05/09/24 10:39 Dose: Not Given Documented By: ELAINE Albuterol (Albut/Ipratrop 3mg/0.5mg Neb 3 Ml Vial) 12 ml NEB ONE ONE; Protocol Stop: 05/09/24 10:29 Last Admin: 05/09/24 10:38 Dose: 12 ml Documented By: ELAINE Albuterol (Albut/Ipratrop 3mg/0.5mg Neb 3 Ml Vial) Confirm Administered Dose 6 ml .ROUTE .STK-MED ONE Stop: 05/09/24 10:31 Last Admin: 05/09/24 11:13 Dose: Not Given Documented By: CEF Dexamethasone Sodium Phosphate (DexamethasonePf 10 Mg/Ml Vial) 10 mg IV NOW ONE Stop: 05/09/24 10:29 Last Admin: 10/12/24 11:30 Dose: 10 mg Documented By: CEF Ceftriaxone Sodium (Rocephin) 2,000 mg in 50 mls @ 100 mls/hr IV NOW STA Stop: 05/09/24 12:24 Last Admin: 05/09/24 12:11 Dose: 100 mls/hr Documented By: CEF Lorazepam (Lorazepam 1 Mg/1 Ml Syr Ed Inj Use) 1 mg IV ONE STA Stop: 05/09/24 11:36 Last Admin: 05/09/24 11:46 Dose: 1 mg Documented By: CEF Nicotine (Nicotine 7 Mg/24 Hr Tdsy) 1 patch TD ONE ONE Stop: 05/09/24 10:31 Last Admin: 05/09/24 11:26 Dose: 1 patch Documented By: CEF Imaging Data Attestation: I personally reviewed and interpreted this imaging study as follows: My Impression: 1 view chest x-ray was obtained in the emergency department. My interpretation is no free air or definite infiltrate, final report below. Radiologist's Impression: Chest X-Ray 05/09/24 10:28 XR chest 1V portable HISTORY: 58 years-old Female Dyspnea acute shortness of breath COMPARISON: 11/20/2023 TECHNIQUE: AP view of the chest FINDINGS: Cardiac silhouette is mildly enlarged. Chronic interstitial coarsening with bibasilar atelectasis/scarring again noted. No pneumothorax, large pleural effusion or overt pulmonary edema. Chronic blunting of the left costophrenic angle. The bones appear intact. IMPRESSION: Chronic findings as above without acute process. ACT 112: Negative or not required by law. The above report was generated using voice recognition software. It may contain grammatical, syntax or spelling errors. Electronically signed by: Raman Le M.D. 05/09/2024 11:19 AM Discharge Plan Visit Data Chief Complaint: Shortness of Breath/Dyspnea Stated Complaint: SOB, COUGH ED Provider: Jamar Sutherland Discharge Problem: Acute exacerbation of chronic obstructive pulmonary disease, Acute hypoxemic respiratory failure, Acute bronchitis Patient Disposition: Being Evaluated by Hospitalist Forms Stand Alone Forms: [facility] Prescriptions Prescriptions: No Action amlodipine 10 mg tablet 10 mg PO QAM duloxetine 30 mg capsule,delayed release(DR/EC) 30 mg PO QAM albuterol sulfate 90 mcg/actuation HFA aerosol inhaler 2 puff INHALATION Q6H PRN (Reason: Cough) furosemide 40 mg Tablet 40 mg PO QAM Qty: 30 0RF Eliquis 5 mg tablet 5 mg PO BID Qty: 63 0RF methadone 10 mg/5 mL Solution 100 mg PO QAM Rx Instructions: IF NEED TO VERIFY--Annie remington Marcela @ [facility] @ [phone]. nicotine 7 mg/24 hr Patch 24 Hour 1 patch TRANSDERMAL DAILY pantoprazole 40 mg tablet,delayed release (DR/EC) 40 mg PO QAM polyethylene glycol 3350 [Miralax] 17 gram powder in packet 17 g PO DAILY PRN (Reason: Constipation) melatonin 3 mg tablet 3 - 6 mg PO HS PRN (Reason: sleep) metoprolol succinate 25 mg tablet extended release 24 hr 12.5 mg PO BID Rx Instructions: per pt takes half twice a day bisacodyl 5 mg tablet 5 - 10 mg PO HS PRN (Reason: Constipation) folic acid 1 mg tablet 1 mg PO QAM oxycodone-acetaminophen [Percocet] 5-325 mg tablet 1 tab PO Q6H PRN (Reason: pain) Qty: 14 0RF potassium chloride 10 mEq tablet,ER particles/crystals 10 meq PO QAM Referrals Referrals: Roseann Plummer MD [Primary Care Provider] - Discharge Problem: Acute bronchitis Qualifiers: Bronchitis organism: unspecified organism Qualified Code(s): J20.9 - Acute bronchitis, unspecified
[2024-05-09] MEDS: ALBUT/IPRATROP 3MG/0.5MG NEB 3 ML VIAL NEB ONE (10:38)
[2024-05-09] MEDS: ALBUT/IPRATROP 3MG/0.5MG NEB 3 ML VIAL ONE ×2 (10:39→11:13)
--- NOTE | 2024-05-09 11:21 | XRay Report ---
XR chest 1V portable HISTORY: 58 years-old Female Dyspnea acute shortness of breath COMPARISON: 11/20/2023 TECHNIQUE: AP view of the chest FINDINGS: Cardiac silhouette is mildly enlarged. Chronic interstitial coarsening with bibasilar atelectasis/sca rring again noted. No pneumothorax, large pleural effusion or overt pulmonary edema. Chronic blunting of the left costophrenic angle. The bones appear intact. IMPRESSION: Chronic findings as above without acute process. ACT 112: Negative or not required by law. The above report was generated using voice recognition software. It may contain grammatical, syntax o r spelling errors. Electronically signed by: Raman Le M.D. 05/09/2024 11:19 AM
[2024-05-09 11:26] LABS: Appearance Urine Clear (Clear); Bilirubin Urine Negative (Negative); Blood Urine Negative (Negative); Color Urine Yellow; Glucose Urine UA Negative (Negative); Ketones Urine Negative (Negative); Leukocyte Esterase Urine Negative (Negative); Nitrite Urine Negative (Negative); Protein Urine Negative (Negative); Specific Gravity Urine 1.007 (1.000-1.030); Urobilinogen Urine Negative (Negative)
[2024-05-09] MEDS: NICOTINE 7 MG/24 HR TDSY TD ONE (11:26)
--- NOTE | 2024-05-09 11:29 | Electrocardiogram Report ---
Test Reason : Blood Pressure : */* mmHG Vent. Rate : 82 BPM Atrial Rate : 82 BPM P-R Int : 118 ms QRS Dur : 78 ms QT Int : 382 ms P-R-T Axes : 55 75 76 degrees QTcB Int : 446 ms Normal sinus rhythm Normal ECG When compared with ECG of 21-Nov-2023 10:56, Nonspecific T wave abnormality no longer evident in Anterolateral leads Confirmed by Jamar Dumont ([id number]) on 05/09/2024 11:29:13 AM Referred By: Confirmed By: Jamar Dumont
[2024-05-09] MEDS: dexAMETHasone**PF** 10 MG/ML VIAL IV ONE (11:30)
[2024-05-09 11:36] LABS: Influenza A virus by PCR Negative (Neg); Influenza B virus by PCR Negative (Neg); RSV by PCR Negative (Neg); SARS CoV2 RNA(COVID-19) Ceph NEGATIVE (Negative)
[2024-05-09] MEDS: LORazepam 1 MG/1 ML SYR ED Inj Use IV STA (11:46)
[2024-05-09 11:51] LABS: Basophils # (auto) 0.05 K/uL (0.00-0.20); Basophils % (auto) 0.4 %; Eosinophils # (auto) 0.48 K/uL (0.00-0.50); Eosinophils % (auto) 3.9 %; Hematocrit (blood only) 38.6 % (37.0-47.0); Hemoglobin 12.4 g/dl (12.0-16.0); Immature Granulocytes # (auto) 0.17 K/uL (0.01-0.20); Immature Granulocytes % (auto) 1.4 %; Lymphocytes # (auto) 1.07 K/uL (1.20-3.40); Lymphocytes % (auto) 8.7 %; Mean Corpuscular Hemoglobin 32.5 pg (25.0-34.0); Mean Corpuscular Hgb Conc 32.1 g/dL (32.0-36.0); Mean Corpuscular Volume 101.3 fL (80.0-100.0); Mean Platelet Volume 10.7 fL (9.4-12.4); Monocytes # (auto) 0.84 K/uL (0.11-0.59); Monocytes % (auto) 6.9 %; Neutrophils # (auto) 9.64 K/uL (1.40-6.50); Neutrophils % (auto) 78.7 %; Nucleated RBC # (auto) 0.03 K/uL (0.00-0.12); Nucleated RBC % (auto) 0.2 %; Platelet Count 87 K/uL (130-400); RDW Coefficient of Variation 13.1 % (11.5-14.5); RDW Standard Deviation 48.4 fL (36.4-46.3); Red Blood Count 3.81 M/uL (4.20-5.40); White Blood Count 12.25 K/ul (4.8-10.8)
[2024-05-09 12:06] LABS: Albumin Level 3.8 gm/dl (3.4-5.0); BUN Creatinine Ratio 9.7 (10-20); Bilirubin,Total 0.6 mg/dl (0.2-1.0); Globulin 3.7 gm/dl (2.5-4.0); Magnesium 1.7 mg/dl (1.7-2.4); Total Protein 7.5 gm/dl (6.0-8.3)
[2024-05-09 12:11] LABS: Troponin I High Sensitivity 5.9 pg/ml (0-14)
[2024-05-09 12:11] LABS: Base Excess VBG 9.8 mEq/L; HCO3 VBG 37 mmol/L; Oxygen Saturation VBG 85.6 %; PCO2 VBG 61 mmHg (38-50); PO2 VBG 52 mmHg; pH VBG 7.39 (7.36-7.41)
[2024-05-09] MEDS: cefTRIAXone SODIUM 2,000 MG/50 ML BAG IV STA (12:11)
[2024-05-09 12:15] LABS: INR 1.1 (0.9-1.1); Partial Thromboplastin Ratio 1.2; Partial Thromboplastin Time 31 Seconds (21-31); Prothrombin Time 11.4 Seconds (9.0-12.0)
--- NOTE | 2024-05-09 15:05 | History & Physical Report ---
Date of Service May 09, 2024 Assessment & Plan (1) Acute on chronic respiratory failure with hypoxemia: (2) Acute exacerbation of chronic obstructive pulmonary disease: (3) Acute bronchitis: Plan: 58 year old female with history of COPD, Chronic Respiratory Failure on 4L O2 via nasal cannula, PE on Eliquis, Alcoholism, etc presenting with cough, shortness of breath x few days. ACUTE ON CHRONIC HYPOXIC RESPIRATORY FAILURE COPD EXACERBATION, SECONDARY TO ACUTE BRONCHITIS usually on 4 L NC, now on high flow O2 CXR no pneumonia Negative for Covid, RSV, Flu MRSA swab sputum culture Solumedrol 40mg IV q8h Cefepime + Doxycycline IV Xopenex/Atrovent q6h Pulm consulted ALCOHOLISM drink 2-3 shots of vodka daily last drink 2 days ago Librium protocol, Alcohol withdrawal protocol LFTs slight elevated, monitor daily BILATERAL LOWER EXTREMITY EDEMA mild on Lasix PO, no documented history of CHF per my review of records, taken for "leg swelling" Echo in November 19 showing mild LVH, preserved EF will avoid IV Lasix for now as BP on the lower side continue usual PO Lasix HYPERTENSION BP on the lower side hold Amlodipine continue Metoprolol IV fluids HISTORY OF PE on Eliquis, continue HISTORY OF OPIOID DEPENDENCE on Methadone 100mg po daily, confirmed with patient [facility] prescribes Methadone for the patient please verify Methadone dose with above center on Saturday [phone] other past medical history: history of pulmonary hypertension, PFO, history of IVDA in remission, Hx of endocarditis DVT PROPHYLAXIS on Eliquis Full Code Disposition lives at home anticipate d/c home when medically stable uses 4 L o2 via NC at home (4) Alcoholism /alcohol abuse: History of Present Illness Primary Care Provider: Roseann Plummer MD 58 year old female with history of COPD, Chronic Respiratory Failure on 4L O2 via nasal cannula, PE on Eliquis, Alcoholism, etc presenting with cough, shortness of breath x few days. Patient states that for the past few days, she has been having increased cough- productive of green sputum, shortness of breath. No fever/chills, chest pain. No other symptoms. At the ER, patient was noted wheezing, hypoxic in the 80s, had to be placed on high flow oxygen to maintain O2 sats > 90%. CXR no pneumonia. ABG showing compensated respiratory acidosis. She was given 1 hour long albuterol neb, Decadron 10mg IV, and Ceftriaxone. On exam, patient seen resting in bed, comfortable on high flow O2. States she feels better since arrival. Breathing significantly improved. No active chest pain, headache, dizziness, etc. Patient admits to drinking 2- 3 shots of vodka per day. Last drink was 2 days ago, Allergies Allergy/AdvReac Type Severity Reaction Status Date / Time fluticasone furoate AdvReac Intermediate INTENSE Verified 03/09/24 08:50 [From Trelegy Ellipta] HEADACHES umeclidinium AdvReac Intermediate INTENSE Verified 03/09/24 08:50 [From Trelegy Ellipta] HEADACHES vilanterol AdvReac Intermediate INTENSE Verified 03/09/24 08:50 [From Trelegy Ellipta] HEADACHES buspirone [From BuSpar] AdvReac Mild Rash Verified 03/09/24 08:50 olive oil AdvReac Unknown reacts Verified 03/09/24 08:50 with methadone Home Medications Medication Instructions Recorded Confirmed Type amlodipine 10 mg tablet 10 mg PO QAM 05/16/22 05/09/24 History duloxetine 30 mg capsule,delayed 30 mg PO QAM 05/16/22 05/09/24 History release albuterol sulfate 90 mcg/actuation 2 puff inhalation Q6H PRN Cough 09/12/22 05/09/24 History aerosol inhaler apixaban 5 mg tablet (Eliquis) 5 mg PO BID #63 tabs 09/21/22 05/09/24 Rx furosemide 40 mg tablet 40 mg PO QAM #30 tabs 09/21/22 05/09/24 Rx methadone 10 mg/5 mL oral solution 100 mg PO QAM 06/25/23 05/09/24 History nicotine 7 mg/24 hr daily 1 patch transdermal DAILY 06/25/23 05/09/24 History transdermal patch pantoprazole 40 mg tablet,delayed 40 mg PO QAM 06/25/23 05/09/24 History release metoprolol succinate 25 mg 12.5 mg PO BID 08/23/23 05/09/24 History tablet,extended release 24 hr potassium chloride 10 mEq 20 meq PO BID 11/20/23 05/09/24 History tablet,extended release(part/cryst) folic acid 1 mg tablet 1 mg PO QAM 01/21/24 05/09/24 History magnesium oxide 400 mg (241.3 mg 800 mg PO HS 05/09/24 05/09/24 History magnesium) tablet Past Med/Surg History Problem List (Updated 05/09/24 @ 19:28 by Keshav Millard MD) Alcoholism /alcohol abuse Acute on chronic respiratory failure with hypoxemia Acute bronchitis (Acute) Acute exacerbation of chronic obstructive pulmonary disease (Acute) Symptomatic cholelithiasis Edema, peripheral (Acute) 11/20/23 Hypomagnesemia (Acute) 11/20/23 Hypokalemia (Acute) 11/20/23 Frequent PVCs (Acute) Bradycardia (Acute) Acute on chronic respiratory failure with hypoxia and hypercapnia 08/23/23 History of alcohol abuse Tobacco use Sepsis due to pneumonia 08/23/23 Parainfluenza infection (Acute) 08/23/23 Pneumonia (Acute) 08/23/23 Encounter for pre-operative examination Pulmonary embolism dx 08/2022 - unknown the cause. treated with anticoagulants. Pulmonary hypertension 09/13/22 Hypercapnic respiratory failure 09/13/22 Muscle cramp (Acute) 09/13/22 PAC (premature atrial contraction) (Acute) Frequent PVCs (Acute) Acute hypoxemic respiratory failure (Acute) 09/13/22 Methadone maintenance therapy patient GERD (gastroesophageal reflux disease) HTN (hypertension) COPD (chronic obstructive pulmonary disease) (Acute) Medical History Edema of both lower extremities Difficult intravenous access Pulmonary hypertension Follow with [facility] Hx of pulmonary embolus dx 08/2022 - unknown the cause. treated with anticoagulants. 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 Down to three drinks a week GERD (gastroesophageal reflux disease) History of aspiration pneumonia 08/2022 from vomiting -- reports she "passed out and vomited while she was incoherent" per PAT RN COPD (chronic obstructive pulmonary disease) well controlled currently, uses 4lpm oxygen via n/c continuously Hx of sinus bradycardia episode when vitamin levels were low. no current issue History of endocarditis --- r/t IV drug use. S/P transesophageal echocardiogram (RENATA) Lung nodule monitoring Constipation Anxiety On home oxygen therapy 4lpm via n/c daily Recurrent major depressive disorder Surgical History S/P right cataract extraction Status post total hip replacement, right Family History Other Family history non-contributory No family history of adverse response to anesthesia Social History Smoking Status: Current every day smoker Tobacco Type: Cigarettes Cigarettes Per Day: 3; Second Hand Exposure: No; Do You Dip or Chew Tobacco: No; Hx Alcohol Use: Yes Alcohol type: hard liquor Hx Substance Use: Yes Last Used Substance: Days (ago) Last Used Substance Other:: remote hx of cocaine and heroin use (2008); med marijuana ~3-4x/week now Preferred Language: Liberian Communication Ability: Effective Machine Biller Required: No Beliefs That Will Affect Care: None Current Living Situation: Alone Other Information That Helps Us Care for You: No Feels Safe at Home: Yes Safety Concerns: Feels Safe At This Time Assistive Devices: Oxygen - Continuous Review of Systems Review of Systems: all noted and negative except for above Physical Exam Physical Exam: General- oriented x 3, not in distress, speaks in sentences with no effort or accessory muscle use somewhat weak Head- atraumatic Eyes- PERRL, EOMI, anicteric ENT- oropharynx clear Neck- supple, no JVD, no adenopathy, no thyromegaly; carotids +2/2, no bruits appreciated Lungs-(+) mild BL wheezing, and rhonchi Heart- normal rate, regular rhythm; no murmur, no gallop, no rub appreciated Abdomen- normal bowel sounds, nondistended, soft, nontender, no masses or hepatosplenomegaly Extremities-mild lower extremity edema, no calf tenderness; peripheral pulses intact Neuro- alert, oriented x 3; CN 2-12 grossly intact; motor 5/5 bilaterally;sensation 100% on all extremities; no other gross focal neurologic deficits Skin- warm & dry Results & Data Results & Data Vital Signs (Past 12 Hours) Vital Signs Temp Pulse Pulse Resp BP Pulse Ox O2 Del Method 05/09/24 14:29 79 05/09/24 14:00 83 15 138/75 95 High Flow Nasal Cannula 05/09/24 13:30 82 17 114/63 95 High Flow Nasal Cannula 05/09/24 12:30 93 H 18 133/69 93 High Flow Nasal Cannula 05/09/24 12:21 94 H 20 92 High Flow Nasal Cannula 05/09/24 12:00 94 H 19 123/67 93 High Flow Nasal Cannula 05/09/24 11:40 87 16 123/62 91 Oxymask 05/09/24 11:00 84 17 176/106 H 94 Aerosol Mask 05/09/24 10:39 78 20 95 Oxymask 05/09/24 10:30 83 05/09/24 10:28 78 28 H 87 L Oxymask 05/09/24 10:28 Oxymask 05/09/24 10:28 Nasal Cannula 05/09/24 10:18 36.6 C 90 22 136/71 79 L Nasal Cannula O2 Flow Rate FiO2 05/09/24 14:29 05/09/24 14:00 30 65 05/09/24 13:30 30 65 05/09/24 12:30 30 65 05/09/24 12:21 30 65 05/09/24 12:00 30 65 05/09/24 11:40 10 05/09/24 11:00 8 05/09/24 10:39 10 05/09/24 10:30 05/09/24 10:28 10 05/09/24 10:28 10 05/09/24 10:28 05/09/24 10:18 5 all noted and reviewed including below Code Status & VTE Plan VTE Prophylaxis Plan VTE Prophylaxis will be ordered: Yes (3) Acute bronchitis Bronchitis organism: unspecified organism Qualified Code(s): J20.9 - Acute bronchitis, unspecified
[2024-05-09] MEDS ORDERED: Ativan IV Alcohol Withdrawal--Active Protocol IV PRN (16:41)
[2024-05-09] MEDS ORDERED: methylPREDNISolone 125 MG/2 ML VIAL IV SCH (16:41)
[2024-05-09] MEDS ORDERED: chlordiazePOXIDE ALCOHOL WITHDRAWL 25MG PO SCH (16:41)
[2024-05-09] MEDS ORDERED: LORazepam 2 MG/1 ML VIAL IV PRN (16:41)
[2024-05-09] MEDS: LEVALBUTEROL 1.25 MG/3 ML NEB NEB SCH ×2 (16:58→20:39)
[2024-05-09] MEDS: IPRATROPIUM BROMIDE NEB SOLN 0.02% 0.5MG/2.5ML VIAL NEB SCH (16:58)
[2024-05-09] MEDS: DOXYCYCLINE HYCLATE 100 MG in DEXTROSE 5% MINI-B 100 ML IV SCH (17:20)
[2024-05-09] MEDS: THIAMINE HCL 100 MG in SYRINGE 9 ML IV SCH (17:21)
[2024-05-09] MEDS: chlordiazePOXIDE HCl 25 MG CAP PO SCH ×2 (17:31→22:28)
[2024-05-09] MEDS: FOLIC ACID 1 MG in SYRINGE 9.8 ML IV SCH (17:46)
[2024-05-09] MEDS: methylPREDNISolone 40 MG in SYRINGE 0 ML IV SCH (18:33)
[2024-05-09] MEDS: APIXABAN 5 MG TABLET PO SCH (20:20)
[2024-05-09] MEDS: METOPROLOL SUCC 25MG EXT REL TAB PO SCH (20:20)
[2024-05-09] MEDS: MAGNESIUM OXIDE 400 MG TAB PO SCH (20:21)
[2024-05-09] MEDS: POTASSIUM CHLORIDE CRTAB 20 MEQ TABCR PO SCH (20:33)
[2024-05-09] MEDS: CEFEPIME 2000MG 2,000 MG/20 ML SYR IV SCH (20:35)
[2024-05-09] MEDS: LORazepam 2 MG/1 ML VIAL IV PRN (22:28)
[2024-05-10 06:41] LABS: Hematocrit (blood only) 36.9 % (37.0-47.0); Hemoglobin 11.9 g/dl (12.0-16.0); Mean Corpuscular Hemoglobin 32.5 pg (25.0-34.0); Mean Corpuscular Hgb Conc 32.2 g/dL (32.0-36.0); Mean Corpuscular Volume 100.8 fL (80.0-100.0); Mean Platelet Volume 11.4 fL (9.4-12.4); Nucleated RBC # (auto) 0.02 K/uL (0.00-0.12); Nucleated RBC % (auto) 0.2 %; Platelet Count 101 K/uL (130-400); RDW Coefficient of Variation 12.8 % (11.5-14.5); RDW Standard Deviation 47.3 fL (36.4-46.3); Red Blood Count 3.66 M/uL (4.20-5.40); White Blood Count 12.08 K/ul (4.8-10.8)
[2024-05-10 06:57] LABS: Albumin Level 3.5 gm/dl (3.4-5.0); BUN Creatinine Ratio 17.6 (10-20); Bilirubin Direct 0.1 mg/dl (0-0.2); Bilirubin,Total 0.3 mg/dl (0.2-1.0); Creatinine Clr Calc Pharmacy 86.5 ml/min; Phosphorus 3.2 mg/dl (2.5-4.9); Potassium 4.7 mmol/L (3.5-5.1); Total Protein 7.4 gm/dl (6.0-8.3)
[2024-05-10 07:26] LABS: Basophils # (auto) 0.03 K/uL (0.00-0.20); Basophils % (auto) 0.2 %; Immature Granulocytes # (auto) 0.19 K/uL (0.01-0.20); Immature Granulocytes % (auto) 1.6 %; Lymphocytes # (auto) 0.47 K/uL (1.20-3.40); Lymphocytes % (auto) 3.9 %; Monocytes # (auto) 0.27 K/uL (0.11-0.59); Monocytes % (auto) 2.2 %; Neutrophils # (auto) 11.12 K/uL (1.40-6.50); Neutrophils % (auto) 92.1 %; RBC Morphology Unremarkable
--- NOTE | 2024-05-10 08:05 | Pulmonary Consultation ---
Date of Consultation May 10, 2024 Assessment & Plan (1) Acute on chronic respiratory failure with hypoxemia: (2) Acute exacerbation of chronic obstructive pulmonary disease: (3) Tobacco use: (4) COPD (chronic obstructive pulmonary disease): COPD type: unspecified COPD Qualified Code(s): J44.9 - Chronic obstructive pulmonary disease, unspecified Plan Chest x-ray 05/09/2024 personally reviewed: Portable film, good inspiratory effort, hyperinflated film, right costophrenic and cardiophrenic angles are clean, left costophrenic angle is mildly blunted, minimal increased vascular congestion in the hilar region, no clear lung infiltrate 2D echo 11/22/2023: Small patent foramen ovale, EF 55-60 % CT chest 09/13/2022 personally reviewed: Centrilobular emphysema appreciated bilaterally Small less than 4 mm pulmonary nodules appreciated bilaterally Small subsegmental pulmonary emboli bilaterally Cardiomegaly Dependent atelectasis bilateral lower lobes with interlobular thickening No significant mediastinal lymphadenopathy -- Acute on chronic hypoxic hypercapnic respiratory failure On 4 L oxygen at home Procalcitonin 0.14, nasal MRSA negative COVID-19, influenza A/B and RSV negative 05/09/2024 BNP 52 Follow sputum culture --COPD > [id number] smoking history Absolute eosinophil count 480 on 05/09/2024 Patient gets oral thrush with ICS Can consider budesonide nebulized along with Anoro/Stiolto on discharge --Pulmonary hypertension Likely a combination of type II and type III Patient also has a small PFO No significant pulmonary hypertension appreciated on the 2D echo done 11/22/2023 --Probable CHARLENE Continue with BiPAP nightly and as needed shortness of breath --History of pulmonary emboli On apixaban -- 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 It may contain grammatical, syntax or spelling errors.Any formal questions or concerns about the content, text or information contained within the body of this dictation should be directly addressed to the provider for clarification. History of Present Illness Attending Physician: Jose Luis Hill MD History of Present Illness 58-year-old female presents to the hospital for shortness of breath Past medical history: Pulmonary hypertension, hypertension, anxiety/depression, on 4 L oxygen [id number] Pulmonary consulted for for hypoxia and COPD Patient says that she has been having issues with her breathing for approximately a week or so, Progressively getting worse She was not in any respiratory distress. She was saturating 95 to 96% on 5 L nasal cannula, I went down to 3 L Does complain of chest congestion and difficulty bringing up the phlegm When she does bring up the phlegm denies any hemoptysis No fever or chills No dysuria, diarrhea No hematuria, no hematochezia, no epistaxis Denies any chest pain No headache, no blurry vision Social history: [id number] smoking history, currently smoking 3-4 cigarettes on a daily basis. Currently drinking 4 beers on a weekly basis. Used to be heavy drinker before Used to do heroin as well as cocaine IV. Quit 17 years ago, at the age of 41. Has a dog at home No personal or family history of asthma No history of lung cancer in the family Allergies Allergy/AdvReac Type Severity Reaction Status Date / Time fluticasone furoate AdvReac Intermediate INTENSE Verified 03/09/24 08:50 [From Trelegy Ellipta] HEADACHES umeclidinium AdvReac Intermediate INTENSE Verified 03/09/24 08:50 [From Trelegy Ellipta] HEADACHES vilanterol AdvReac Intermediate INTENSE Verified 03/09/24 08:50 [From Trelegy Ellipta] HEADACHES buspirone [From BuSpar] AdvReac Mild Rash Verified 03/09/24 08:50 olive oil AdvReac Unknown reacts Verified 03/09/24 08:50 with methadone Home Medications Medication Instructions Recorded Confirmed Type amlodipine 10 mg tablet 10 mg PO QAM 05/16/22 05/09/24 History duloxetine 30 mg capsule,delayed 30 mg PO QAM 05/16/22 05/09/24 History release albuterol sulfate 90 mcg/actuation 2 puff inhalation Q6H PRN Cough 09/12/22 05/09/24 History aerosol inhaler apixaban 5 mg tablet (Eliquis) 5 mg PO BID #63 tabs 09/21/22 05/09/24 Rx furosemide 40 mg tablet 40 mg PO QAM #30 tabs 09/21/22 05/09/24 Rx methadone 10 mg/5 mL oral solution 100 mg PO QAM 06/25/23 05/09/24 History nicotine 7 mg/24 hr daily 1 patch transdermal DAILY 06/25/23 05/09/24 History transdermal patch pantoprazole 40 mg tablet,delayed 40 mg PO QAM 06/25/23 05/09/24 History release metoprolol succinate 25 mg 12.5 mg PO BID 08/23/23 05/09/24 History tablet,extended release 24 hr potassium chloride 10 mEq 20 meq PO BID 11/20/23 05/09/24 History tablet,extended release(part/cryst) folic acid 1 mg tablet 1 mg PO QAM 01/21/24 05/09/24 History magnesium oxide 400 mg (241.3 mg 800 mg PO HS 05/09/24 05/09/24 History magnesium) tablet Patient History Medical History Edema of both lower extremities Difficult intravenous access Pulmonary hypertension Follow with S Hx of pulmonary embolus dx 08/2022 - unknown the cause. treated with anticoagulants. 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 Down to three drinks a week GERD (gastroesophageal reflux disease) History of aspiration pneumonia 08/2022 from vomiting -- reports she "passed out and vomited while she was incoherent" per PAT RN COPD (chronic obstructive pulmonary disease) well controlled currently, uses 4lpm oxygen via n/c continuously Hx of sinus bradycardia episode when vitamin levels were low. no current issue History of endocarditis --- r/t IV drug use. S/P transesophageal echocardiogram (RENATA) Lung nodule monitoring Constipation Anxiety On home oxygen therapy 4lpm via n/c daily Recurrent major depressive disorder Surgical History S/P right cataract extraction Status post total hip replacement, right Family History Other Family history non-contributory No family history of adverse response to anesthesia Social History Smoking Status: Current every day smoker Tobacco Type: Cigarettes Cigarettes Per Day: 3; Second Hand Exposure: No; Do You Dip or Chew Tobacco: No; Hx Alcohol Use: Yes Alcohol type: hard liquor Hx Substance Use: Yes Last Used Substance: Days (ago) Last Used Substance Other:: remote hx of cocaine and heroin use (2008); med marijuana ~3-4x/week now Preferred Language: Belarusian Communication Ability: Effective Digester Operator Helper Required: No Beliefs That Will Affect Care: None Current Living Situation: Alone Other Information That Helps Us Care for You: No Feels Safe at Home: Yes Safety Concerns: Feels Safe At This Time Assistive Devices: Oxygen - Continuous Review of Systems 2 Review of Systems: All systems reviewed & are unremarkable except as noted in HPI & below Physical Exam 2 Physical Exam: Constitutional: No acute distress HEENT: EOMI, PERRLA Respiratory system: Decreased air entry bilaterally, diffuse expiratory wheeze, no rhonchi, positive crackles bilaterally CVS: S1-S2 positive, no murmurs or gallops Abdomen: Soft, nontender, nondistended, positive bowel sounds x4, obese Extremities: +2 pulses bilaterally radialis/ dorsalis pedis, no cyanosis, minimal pitting edema bilateral lower extremity Neuro: Awake alert oriented x3 Psych: Normal mood and affect G/U: No Ernandez Skin: no rashes, warm and dry Lymphatic: no cervical or axillary lymphadenopathy Results & Data Results & Data Vital Signs (Past 12 Hours) Vital Signs Temp Pulse Pulse Pulse Resp BP Pulse Ox 05/10/24 07:51 36.5 C 72 18 119/65 95 05/10/24 07:18 71 18 95 05/10/24 03:32 36.5 C 87 18 148/77 H 95 05/09/24 22:37 36.7 C 73 18 129/71 95 05/09/24 21:00 72 05/09/24 21:00 05/09/24 21:00 05/09/24 20:40 87 20 97 Pulse Ox O2 Del Method O2 Del Method O2 Flow Rate O2 Flow Rate FiO2 05/10/24 07:51 Nebulizer 10/13/24 07:18 Nasal Cannula 6 05/10/24 03:32 High Flow Nasal Cannula 05/09/24 22:37 Room Air 05/09/24 21:00 05/09/24 21:00 High Flow Nasal Cannula 30 65 05/09/24 21:00 97 High Flow Nasal Cannula 30 05/09/24 20:40 High Flow Nasal Cannula 30 65 Laboratory Results 05/10/24 05:24 05/10/24 05:24 PG Care Time/CCT Total # of Minutes Spent Total Time Spent with Patient: Total time spent is greater than 50% in coordination of care (as documented) at patient's floor/unit and/or counseling patient: Coding Level of Care Code 93894 INT INP/OBS CARE 3/75MIN Diagnoses Acute on chronic respiratory failure with hypoxemia J96.21 Acute exacerbation of chronic obstructive pulmonary disease J44.1 Tobacco use Z72.0 COPD (chronic obstructive pulmonary disease) J44.9 COPD type: unspecified COPD
[2024-05-10] MEDS: NICOTINE 14 MG/24 HR PATCH TD SCH (08:27)
[2024-05-10] MEDS: FOLIC ACID 1 MG TAB PO SCH (08:28)
[2024-05-10] MEDS: DULoxetine HCL 30 MG CAP PO SCH (08:28)
[2024-05-10] MEDS: FUROSEMIDE 40 MG TAB PO SCH (08:28)
[2024-05-10] MEDS: PANTOprazole 40 MG TAB PO SCH (08:29)
[2024-05-10] MEDS: PATIENT'S OWN CONTROLLED MED 1 SCH (09:45)
[2024-05-10] MEDS: METHADONE ORAL SOLN 2 MG/ML PO SCH (09:45)
[2024-05-10] MEDS ORDERED: cefTRIAXone SODIUM 2,000 MG/50 ML BAG IV SCH (12:00)
--- NOTE | 2024-05-10 13:00 | Hospitalist Progress Note ---
Date of Service May 10, 2024 Assessment & Plan (1) Acute on chronic respiratory failure with hypoxemia: (2) Acute exacerbation of chronic obstructive pulmonary disease: (3) Acute bronchitis: Plan: 58 year old female with history of COPD, Chronic Respiratory Failure on 4L O2 via nasal cannula, PE on Eliquis, Alcoholism, etc presenting with cough, shortness of breath x few days. ACUTE ON CHRONIC HYPOXIC RESPIRATORY FAILURE COPD EXACERBATION, SECONDARY TO ACUTE BRONCHITIS usually on 4 L NC, presented to hospital; required HFNC CXR no pneumonia Negative for Covid, RSV, Flu MRSA swab -ve sputum culture- moderate normal james present Hypertonic saline, mucinex and flutter valve for airway clearence Solumedrol 40mg IV q8h Cefepime + Doxycycline IV Xopenex/Atrovent q6h Pulmonology on board Alcohol use disorder drink 2-3 shots of vodka daily last drink 2 days ago Alcohol withdrawal protocol LFTs slight elevated, monitor BILATERAL LOWER EXTREMITY EDEMA mild on Lasix PO, no documented history of CHF per my review of records, taken for "leg swelling" Echo in November 19 showing mild LVH, preserved EF will avoid IV Lasix for now as BP on the lower side continue usual PO Lasix HYPERTENSION BP on the lower side hold Amlodipine continue Metoprolol HISTORY OF PE on Eliquis, continue HISTORY OF OPIOID DEPENDENCE on Methadone 100mg po daily, confirmed with patient [facility] prescribes Methadone for the patient Plan to verify Methadone dose with above center on tomorrow [phone] other past medical history: history of pulmonary hypertension, PFO, history of IVDA in remission, Hx of endocarditis 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 It may contain grammatical, syntax or spelling errors. Any formal questions or concerns about the content, text or information contained within the body of this dictation should be directly addressed to the provider for clarification Admission and Anticipated Discharge Date Admission Date: May 09, 2024 Subjective Patient seen and examined at bedside She reports that her breathing is slightly better compared to previous day Still has significant wheeze Review of Systems Review of Systems: All systems reviewed & are unremarkable except as noted in Subjective Physical Exam Physical Exam: General- oriented x 3, not in distress, Head- atraumatic Eyes- PERRL, EOMI, anicteric ENT- oropharynx clear Neck- supple, no JVD, no adenopathy, no thyromegaly; carotids +2/2, no bruits appreciated Lungs-Bilateral wheeze present throughout the lungs Heart- normal rate, regular rhythm; no murmur, no gallop, no rub appreciated Abdomen- normal bowel sounds, nondistended, soft, nontender, no masses or hepatosplenomegaly Extremities-mild lower extremity edema, no calf tenderness; peripheral pulses intact Neuro- alert, oriented x 3; CN 2-12 grossly intact; motor 5/5 bilaterally;sensation 100% on all extremities; no other gross focal neurologic deficits Skin- warm & dry Results & Data Results & Data Vital Signs (Past 12 Hours) Vital Signs Temp Pulse Pulse Pulse Resp BP Pulse Ox 05/10/24 12:00 36.6 C 86 18 118/68 92 05/10/24 09:51 67 05/10/24 07:51 36.5 C 72 18 119/65 95 05/10/24 07:18 71 18 95 05/10/24 03:32 36.5 C 87 18 148/77 H 95 O2 Del Method O2 Flow Rate 05/10/24 12:00 Nasal Cannula 3 05/10/24 09:51 05/10/24 07:51 Nebulizer 05/10/24 07:18 Nasal Cannula 6 05/10/24 03:32 High Flow Nasal Cannula (3) Acute bronchitis Bronchitis organism: unspecified organism Qualified Code(s): J20.9 - Acute bronchitis, unspecified
[2024-05-10] MEDS: diazePAM 5 MG TABLET PO SCH (15:46)
[2024-05-10] MEDS: SODIUM CHLOR 7% 4 ML NEB NEB SCH (19:10)
[2024-05-10] MEDS: BUDESONIDE 0.5 MG/2 ML VIAL (PULMICORT) NEB SCH (19:12)
[2024-05-10] MEDS: FORMOTEROL 20 MCG/2 ML VIAL INH SCH (19:12)
[2024-05-10] MEDS: LORazepam 2 MG/1 ML VIAL IV PRN (20:33)
[2024-05-10] MEDS: guaiFENesin 600 MG TABCR PO SCH (20:38)
[2024-05-11] MEDS: diphenhydrAMINE 50 MG/ML VIAL IV STA (06:31)
--- NOTE | 2024-05-11 08:44 | Pulmonology Progress Note ---
Date of Service May 11, 2024 Assessment & Plan (1) Acute exacerbation of chronic obstructive pulmonary disease: (2) Acute on chronic respiratory failure with hypoxia and hypercapnia: Plan Impression: 58-year-old female with and COPD (PFTs not available but notes indicate moderate obstruction with normal diffusion capacity) and chronic hypoxemic respiratory failure on 3 to 4 L of oxygen at baseline admitted with exacerbation. She was hypercarbic initially and is on multiple respiratory suppressant medications in the outpatient setting including duloxetine, methadone. She is responding favorably to therapy currently. Recommendations: 1. Acute exacerbation of COPD: Will discontinue nebulized therapies and change DuoNebs to as needed. Will place her back on her home Incruse as she feels this is more beneficial than the nebulized therapies. Discontinue hypertonic saline. Transition steroids to oral. Transition antibiotics to oral 2. Hypercarbic respiratory failure: The patient has been placed on an alcohol withdrawal protocol. Would be extremely judicious in using respiratory suppressant medications including narcotics or benzodiazepines in the setting as the patient has a high likelihood of worsening hypercarbic respiratory failure. She would benefit from outpatient polysomnography which can be coordinated by her outpatient pulmonary providers. She initially expressed reluctance to consider use of noninvasive positive pressure ventilation on a regular basis however I advised her that this may significantly improve her longevity and she is willing to take it under consideration. Outpatient sleep evaluation with the [facility] sleep medicine may be appropriate. 3. Out of bed to chair and ambulate as tolerated. 4. Hypoxemia: Continue to wean oxygen as tolerated and titrate to defend oxygen saturations around 90%. Given concomitant hypercarbia, avoid hyperoxia Will continue to follow with you. Feel free to contact us with questions or concerns Admission and Anticipated Discharge Date Admission Date: May 09, 2024 Subjective Patient seen and examined. EMR reviewed. Discussed with off going aerospace technician. The patient's mental status has improved significantly. She is now awake and conversant and oriented to person place and time. She states her breathing is improving significantly since arrival to the hospital. She is not interested in pursuing hypertonic saline therapy anymore she does not believe its beneficial and actually makes things worse. She also expresses a desire to avoid noninvasive positive pressure ventilation and is unlikely to use it moving forward. Patient denies chest pain or palpitations. No significant sputum production. She has been tried on inhaled corticosteroids in the outpatient setting but these had to be discontinued due to adverse effects. Review of Systems 2 Review of Systems: All systems reviewed & are unremarkable except as noted in Subjective Physical Exam 2 Constitutional: WD/WN, vitals as above Neck: trachea midline, no thyromegaly Respiratory: no respiratory distress, no labored breathing, no cough and not tachypneic Auscultation: + diminished lung sounds; no crackles and no wheezes Cardiovascular: RRR, no murmur, no edema Gastrointestinal (Abdomen): normal bowel sounds, soft, nontender, no hepatosplenomegaly Musculoskeletal: Extremities: extremities normal to inspection Skin: no rashes, warm and dry Neurologic: Nonfocal exam Lymphatic: no cervical lymphadenopathy Results & Data Results & Data Vital Signs (Past 12 Hours) Vital Signs Temp Pulse Pulse Resp BP BP Pulse Ox 05/11/24 08:21 62 05/11/24 08:09 36.6 C 79 22 145/74 H 92 05/11/24 07:17 79 16 93 05/11/24 04:40 36.4 C L 66 18 121/79 94 05/10/24 22:33 36.8 C 78 18 109/69 92 05/10/24 21:55 75 05/10/24 21:00 Pulse Ox O2 Del Method O2 Del Method O2 Flow Rate O2 Flow Rate 05/11/24 08:21 05/11/24 08:09 Nasal Cannula 4 05/11/24 07:17 Nasal Cannula 4 05/11/24 04:40 Nasal Cannula 3 05/10/24 22:33 Nasal Cannula 3 05/10/24 21:55 05/10/24 21:00 91 Nasal Cannula 2 Laboratory Results 05/10/24 05:24 05/10/24 05:24 Diagnostic Findings No new imaging PG Care Time/CCT Total # of Minutes Spent Total Time Spent with Patient: Total time spent is greater than 50% in coordination of care (as documented) at patient's floor/unit and/or counseling patient: Coding Level of Care Code 45371 SUB INP/OBS CARE 3/50MIN Diagnoses Acute exacerbation of chronic obstructive pulmonary disease J44.1 Acute on chronic respiratory failure with hypoxia and hypercapnia J96.21; J96.22
[2024-05-11] MEDS: predniSONE 20 MG TAB PO SCH (09:37)
[2024-05-11] MEDS: UMECLIDINIUM/VILANTEROL 62.5/25MCG 7 PUFFS/INHALER INH SCH (09:39)
[2024-05-11] MEDS: DOXYCYCLINE HYCLATE 100 MG CAP PO SCH (10:55)
--- NOTE | 2024-05-11 13:15 | Hospitalist Progress Note ---
Date of Service May 11, 2024 Assessment & Plan (1) Acute on chronic respiratory failure with hypoxemia: (2) Acute exacerbation of chronic obstructive pulmonary disease: (3) Acute bronchitis: Plan: 58 year old female with history of COPD, Chronic Respiratory Failure on 4L O2 via nasal cannula, PE on Eliquis, Alcoholism, etc presenting with cough, shortness of breath x few days. ACUTE ON CHRONIC HYPOXIC RESPIRATORY FAILURE COPD EXACERBATION, SECONDARY TO ACUTE BRONCHITIS usually on 4 L NC, presented to hospital; required HFNC CXR no pneumonia Negative for Covid, RSV, Flu MRSA swab -ve sputum culture- Streptococcus pneumoniae Antibiotics changed to Augmentin based on sputum culture results. Continue DuoNeb as needed. Continue Mucinex and prednisolone Wean off oxygen as tolerated Alcohol use disorder Alcohol withdrawal drink 2-3 shots of vodka daily last drink 2 days ago Alcohol withdrawal protocol LFTs slight elevated, monitor BILATERAL LOWER EXTREMITY EDEMA mild on Lasix PO, no documented history of CHF per my review of records, taken for "leg swelling" Echo in November 19 showing mild LVH, preserved EF will avoid IV Lasix for now as BP on the lower side continue usual PO Lasix HYPERTENSION BP on the lower side hold Amlodipine continue Metoprolol HISTORY OF PE on Eliquis, continue HISTORY OF OPIOID DEPENDENCE on Methadone 100mg po daily, confirmed with patient [facility] prescribes Methadone for the patient Verified with Methadone center on 05/10/2024 other past medical history: history of pulmonary hypertension, PFO, history of IVDA in remission, Hx of endocarditis 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 It may contain grammatical, syntax or spelling errors. Any formal questions or concerns about the content, text or information contained within the body of this dictation should be directly addressed to the provider for clarification Admission and Anticipated Discharge Date Admission Date: May 09, 2024 Subjective Patient seen and examined at bedside. Overall, she feels improvement in her symptoms. Her oxygen requirement is around 4 L of oxygen by nasal cannula. Reports bilateral upper extremity tremors; reports that Valium has helped her No significant events overnight Review of Systems Review of Systems: All systems reviewed & are unremarkable except as noted in Subjective Physical Exam Physical Exam: General- oriented x 3, not in distress, Head- atraumatic Eyes- PERRL, EOMI, anicteric ENT- oropharynx clear Neck- supple, no JVD, no adenopathy, no thyromegaly; carotids +2/2, no bruits appreciated Lungs-Occasional wheeze present bilaterally Heart- normal rate, regular rhythm; no murmur, no gallop, no rub appreciated Abdomen- normal bowel sounds, nondistended, soft, nontender, no masses or hepatosplenomegaly Extremities-mild lower extremity edema, no calf tenderness; peripheral pulses intact Neuro- alert, oriented x 3; CN 2-12 grossly intact; motor 5/5 bilaterally;sensation 100% on all extremities; no other gross focal neurologic deficits Skin- warm & dry Results & Data Results & Data Vital Signs (Past 12 Hours) Vital Signs Temp Pulse Pulse Resp BP Pulse Ox O2 Del Method 05/11/24 11:41 36.4 C L 76 20 133/73 89 L Nasal Cannula 05/11/24 08:21 62 05/11/24 08:09 36.6 C 79 22 145/74 H 92 Nasal Cannula 05/11/24 07:17 79 16 93 Nasal Cannula 05/11/24 04:40 36.4 C L 66 18 121/79 94 Nasal Cannula O2 Flow Rate 05/11/24 11:41 4 05/11/24 08:21 05/11/24 08:09 4 05/11/24 07:17 4 05/11/24 04:40 3 (3) Acute bronchitis Bronchitis organism: unspecified organism Qualified Code(s): J20.9 - Acute bronchitis, unspecified
[2024-05-11] MEDS: AMOXICILLIN/CLAVULANATE 875 MG TAB PO SCH (16:08)
[2024-05-12 06:18] LABS: Basophils # (auto) 0.06 K/uL (0.00-0.20); Basophils % (auto) 0.5 %; Eosinophils # (auto) 0.19 K/uL (0.00-0.50); Eosinophils % (auto) 1.5 %; Hematocrit (blood only) 36.2 % (37.0-47.0); Hemoglobin 11.6 g/dl (12.0-16.0); Immature Granulocytes # (auto) 0.61 K/uL (0.01-0.20); Immature Granulocytes % (auto) 4.8 %; Lymphocytes # (auto) 1.33 K/uL (1.20-3.40); Lymphocytes % (auto) 10.5 %; Mean Corpuscular Hemoglobin 32.8 pg (25.0-34.0); Mean Corpuscular Volume 102.3 fL (80.0-100.0); Mean Platelet Volume 10.6 fL (9.4-12.4); Monocytes # (auto) 0.95 K/uL (0.11-0.59); Monocytes % (auto) 7.5 %; Neutrophils # (auto) 9.57 K/uL (1.40-6.50); Neutrophils % (auto) 75.2 %; Platelet Count 174 K/uL (130-400); RDW Coefficient of Variation 13.3 % (11.5-14.5); RDW Standard Deviation 50.8 fL (36.4-46.3); Red Blood Count 3.54 M/uL (4.20-5.40); White Blood Count 12.71 K/ul (4.8-10.8)
[2024-05-12 06:35] LABS: Calcium 8.7 mg/dl (8.6-10.3); Potassium 4.4 mmol/L (3.5-5.1)
[2024-05-12 06:41] LABS: Creatinine Clr Calc Pharmacy 78.2 ml/min
[2024-05-12] MEDS: ALBUT/IPRATROP 3MG/0.5MG NEB 3 ML VIAL NEB PRN (07:33)
--- NOTE | 2024-05-12 09:08 | Pulmonology Progress Note ---
Date of Service May 12, 2024 Assessment & Plan (1) Acute exacerbation of chronic obstructive pulmonary disease: (2) Acute on chronic respiratory failure with hypoxia and hypercapnia: Plan Impression: 58-year-old female with and COPD (PFTs not available but notes indicate moderate obstruction with normal diffusion capacity) and chronic hypoxemic respiratory failure on 3 to 4 L of oxygen at baseline admitted with exacerbation. She was hypercarbic initially and is on multiple respiratory suppressant medications in the outpatient setting including duloxetine, methadone. She is responding favorably to therapy currently. Recommendations: 1. Acute exacerbation of COPD: Continue DuoNebs to as needed. Continue Anoro. Complete 5 days of oral prednisone. Currently on Augmentin, sputum culture positive for pneumococcus pansensitive. Complete 5 days of antimicrobial therapy. 2. Acute on chronic hypercarbic respiratory failure: Multifactorial due to COPD, potentially obesity hypoventilation syndrome, and hypoventilatory issues associated with medications in the outpatient setting. The patient has been placed on an alcohol withdrawal protocol. Would be extremely judicious in using respiratory suppressant medications including narcotics or benzodiazepines in the setting as the patient has a high likelihood of worsening hypercarbic respiratory failure. She would benefit from outpatient polysomnography which can be coordinated by her outpatient pulmonary providers. She initially expressed reluctance to consider use of noninvasive positive pressure ventilation on a regular basis however I advised her that this may significantly improve her longevity and she is willing to take it under consideration. Outpatient sleep evaluation with the [facility] sleep medicine may be appropriate. 3. Out of bed to chair and ambulate as tolerated. 4. Hypoxemia: Continue to wean oxygen as tolerated and titrate to defend oxygen saturations around 90%. Given concomitant hypercarbia, avoid hyperoxia Will continue to follow with you. Feel free to contact us with questions or concerns Admission and Anticipated Discharge Date Admission Date: May 09, 2024 Subjective Patient seen and examined. EMR reviewed. The patient reports her breathing is better. She is concerned that she has not received her medications this morning. She reports that she slept well. She continues to decline any noninvasive positive pressure ventilation at night. She does report some wheezing. Her cough is nonproductive. No chest pain or palpitations. She denies fevers chills night sweats or other constitutional symptoms. Review of Systems 2 Review of Systems: All systems reviewed & are unremarkable except as noted in Subjective Physical Exam 2 Constitutional: WD/WN, vitals as above Neck: trachea midline, no thyromegaly Respiratory: no respiratory distress, no labored breathing, no cough and not tachypneic Auscultation: + diminished lung sounds; no crackles and no wheezes Cardiovascular: RRR, no murmur, no edema Gastrointestinal (Abdomen): normal bowel sounds, soft, nontender, no hepatosplenomegaly Musculoskeletal: Extremities: extremities normal to inspection Skin: no rashes, warm and dry Lymphatic: no cervical lymphadenopathy Results & Data Results & Data Vital Signs (Past 12 Hours) Vital Signs Temp Pulse Pulse Resp BP Pulse Ox O2 Del Method 05/12/24 08:10 36.6 C 74 18 150/74 H 91 Nasal Cannula 05/12/24 07:41 75 05/12/24 07:34 77 18 92 Nasal Cannula 05/12/24 04:57 36.6 C 80 20 160/78 H 91 Nasal Cannula 05/12/24 04:22 36.9 C 80 20 148/74 H 96 Room Air 05/11/24 22:42 77 05/11/24 22:17 36.6 C 76 18 151/76 H 94 Nasal Cannula 05/11/24 21:53 Nasal Cannula O2 Flow Rate 05/12/24 08:10 4 05/12/24 07:41 05/12/24 07:34 3 05/12/24 04:57 4 05/12/24 04:22 05/11/24 22:42 05/11/24 22:17 4 05/11/24 21:53 4 Laboratory Results 05/12/24 05:38 05/12/24 05:38 Sputum culture positive for Streptococcus pneumonia, pansensitive Diagnostic Findings No new imaging PG Care Time/CCT Total # of Minutes Spent Total Time Spent with Patient: Total time spent is greater than 50% in coordination of care (as documented) at patient's floor/unit and/or counseling patient: Coding Level of Care Code 07493 SUB INP/OBS CARE 2/35MIN Diagnoses Acute exacerbation of chronic obstructive pulmonary disease J44.1 Acute on chronic respiratory failure with hypoxia and hypercapnia J96.21; J96.22
--- NOTE | 2024-05-12 12:39 | Hospitalist Progress Note ---
Date of Service May 12, 2024 Assessment & Plan (1) Acute on chronic respiratory failure with hypoxemia: (2) Acute exacerbation of chronic obstructive pulmonary disease: (3) Acute bronchitis: Plan: 58 year old female with history of COPD, Chronic Respiratory Failure on 4L O2 via nasal cannula, PE on Eliquis, Alcoholism, etc presenting with cough, shortness of breath x few days. ACUTE ON CHRONIC HYPOXIC RESPIRATORY FAILURE COPD EXACERBATION, SECONDARY TO ACUTE BRONCHITIS usually on 4 L NC, presented to hospital; required HFNC CXR no pneumonia Negative for Covid, RSV, Flu MRSA swab -ve sputum culture- Streptococcus pneumoniae Antibiotics changed to Augmentin based on sputum culture results. Continue DuoNeb as needed. Continue Mucinex and prednisolone Wean off oxygen as tolerated Pulmonology on board appreciate recommendation Alcohol use disorder Alcohol withdrawal drink 2-3 shots of vodka daily last drink 2 days ago Alcohol withdrawal protocol LFTs slight elevated, monitor Will decrease the frequency of Valium to twice a day. BILATERAL LOWER EXTREMITY EDEMA mild on Lasix PO, no documented history of CHF per my review of records, taken for "leg swelling" Echo in November 19 showing mild LVH, preserved EF continue usual PO Lasix HYPERTENSION BP on the lower side on amlodpine, continue continue Metoprolol HISTORY OF PE on Eliquis, continue HISTORY OF OPIOID DEPENDENCE on Methadone 100mg po daily, confirmed with patient [facility] prescribes Methadone for the patient Verified with Methadone center on 05/10/2024 other past medical history: history of pulmonary hypertension, PFO, history of IVDA in remission, Hx of endocarditis DVT PROPHYLAXIS on Eliquis Full Code Disposition lives at home anticipate d/c home when medically stable uses 4 L o2 via NC at home PT/OT ordered Time spent evaluating patient, direct bedside care, chart review, placing orders, interpretation of diagnostic studies, discussion with consultants, patient, and family members, as well as other required patient management activities is 50 minutes Please note the above document was generated using voice recognition software. It may contain grammatical, syntax or spelling errors. Any formal questions or concerns about the content, text or information contained within the body of this dictation should be directly addressed to the provider for clarification Admission and Anticipated Discharge Date Admission Date: May 09, 2024 Subjective Seen and examined at bedside. She is comfortable; not in distress Reports that her breathing is slightly worse today Audible wheeze at bedside Review of Systems Review of Systems: All systems reviewed & are unremarkable except as noted in Subjective Physical Exam Physical Exam: General- oriented x 3, not in distress, Lungs-Bilateral wheeze present Heart- normal rate, regular rhythm; no murmur, no gallop, no rub appreciated Abdomen- normal bowel sounds, nondistended, soft, nontender, no masses or hepatosplenomegaly Extremities-mild lower extremity edema, no calf tenderness; peripheral pulses intact Neuro- alert, oriented x 3; CN 2-12 grossly intact; motor 5/5 bilaterally;sensation 100% on all extremities; no other gross focal neurologic deficits Skin- warm & dry Results & Data Results & Data Vital Signs (Past 12 Hours) Vital Signs Temp Pulse Pulse Resp BP Pulse Ox O2 Del Method 05/12/24 11:54 36.7 C 94 H 22 158/80 H 88 L Nasal Cannula 05/12/24 08:10 36.6 C 74 18 150/74 H 91 Nasal Cannula 05/12/24 08:00 Nasal Cannula 05/12/24 07:41 75 05/12/24 07:34 77 18 92 Nasal Cannula 05/12/24 04:57 36.6 C 80 20 160/78 H 91 Nasal Cannula 05/12/24 04:22 36.9 C 80 20 148/74 H 96 Room Air O2 Flow Rate 05/12/24 11:54 3 05/12/24 08:10 4 05/12/24 08:00 4 05/12/24 07:41 05/12/24 07:34 3 05/12/24 04:57 4 05/12/24 04:22 (3) Acute bronchitis Bronchitis organism: unspecified organism Qualified Code(s): J20.9 - Acute bronchitis, unspecified
[2024-05-12] MEDS: amLODIPine BESYLATE 5 MG TAB PO SCH (13:25)
[2024-05-12] MEDS: ALBUT/IPRATROP 3MG/0.5MG NEB 3 ML VIAL NEB SCH (13:30)
[2024-05-12] MEDS ORDERED: chlordiazePOXIDE HCl 5 MG CAP PO SCH (20:00)
[2024-05-12] MEDS: diazePAM 5 MG TABLET PO SCH (22:48)
[2024-05-13 07:13] LABS: Hematocrit (blood only) 35.8 % (37.0-47.0); Hemoglobin 11.7 g/dl (12.0-16.0); Mean Corpuscular Hemoglobin 33.2 pg (25.0-34.0); Mean Corpuscular Hgb Conc 32.7 g/dL (32.0-36.0); Mean Corpuscular Volume 101.7 fL (80.0-100.0); Mean Platelet Volume 10.1 fL (9.4-12.4); Platelet Count 183 K/uL (130-400); RDW Coefficient of Variation 13.2 % (11.5-14.5); RDW Standard Deviation 49.7 fL (36.4-46.3); Red Blood Count 3.52 M/uL (4.20-5.40); White Blood Count 10.51 K/ul (4.8-10.8)
[2024-05-13 07:21] LABS: Calcium 8.6 mg/dl (8.6-10.3); Potassium 4.9 mmol/L (3.5-5.1)
[2024-05-13 07:27] LABS: BUN Creatinine Ratio 27.7 (10-20); Creatinine Clr Calc Pharmacy 83.6 ml/min
[2024-05-13 08:03] LABS: Basophils # (auto) 0.08 K/uL (0.00-0.20); Basophils % (auto) 0.8 %; Eosinophils # (auto) 0.26 K/uL (0.00-0.50); Eosinophils % (auto) 2.5 %; Immature Granulocytes # (auto) 0.68 K/uL (0.01-0.20); Immature Granulocytes % (auto) 6.5 %; Lymphocytes # (auto) 1.47 K/uL (1.20-3.40); Monocytes # (auto) 0.83 K/uL (0.11-0.59); Monocytes % (auto) 7.9 %; Neutrophils # (auto) 7.19 K/uL (1.40-6.50); Neutrophils % (auto) 68.3 %; Polychromasia 1+; Toxic Vacuolation 1+
--- NOTE | 2024-05-13 10:25 | XRay Report ---
XR chest 1V portable CLINICAL HISTORY: wheezing, hypoxia TECHNIQUE: Single frontal radiograph of the chest was obtained. Comparison: Comparison is made to chest radiograph 05/09/2024 FINDINGS: No lines and tubes are seen. Calcified aortic knob is seen. The lungs are clear. No evidence of pleur al effusion or pneumothorax. IMPRESSION: No acute abnormalities and in particular no radiographic evidence of pneumonia. ACT 112: Negative or not required by law. Electronically signed by: Eric Ramires M.D. 05/13/2024 10:24 AM
[2024-05-13] MEDS ORDERED: methylPREDNISolone 125 MG/2 ML VIAL IV STA (10:56)
--- NOTE | 2024-05-13 11:01 | Pulmonology Progress Note ---
Date of Service May 13, 2024 Assessment & Plan (1) Acute exacerbation of chronic obstructive pulmonary disease: (2) Acute on chronic respiratory failure with hypoxia and hypercapnia: Plan Impression: 58-year-old female with and COPD (PFTs not available but notes indicate moderate obstruction with normal diffusion capacity) and chronic hypoxemic respiratory failure on 3 to 4 L of oxygen at baseline admitted with exacerbation. She was hypercarbic initially and is on multiple respiratory suppressant medications in the outpatient setting including duloxetine, methadone. She is responding favorably to therapy currently. She has declined noninvasive positive pressure ventilation Recommendations: 1. Acute exacerbation of COPD: Continue DuoNebs as needed. Continue Anoro. Complete 5 days of oral prednisone. Currently on Augmentin, sputum culture positive for pneumococcus pansensitive. Complete 5 days of antimicrobial therapy. 2. Acute on chronic hypercarbic respiratory failure: Multifactorial due to COPD, potentially obesity hypoventilation syndrome, and hypoventilatory issues associated with medications in the outpatient setting. She is currently somewhat somnolent likely secondary to medications. Recommend outpatient [facility] sleep evaluation for consideration of nocturnal noninvasive positive pressure ventilation 3. Out of bed to chair and ambulate as tolerated. 4. Hypoxemia: Continue to wean oxygen as tolerated and titrate to defend oxygen saturations around 90%. Given concomitant hypercarbia, avoid hyperoxia Her pulmonary issues at this point in time appear stable. Pulmonary will sign off. Feel free to contact us with questions or concerns Admission and Anticipated Discharge Date Admission Date: May 09, 2024 Subjective Patient seen and examined. EMR reviewed. The patient reports that she is breathing better. She is intermittently somnolent likely due to medications being administered. She reports minimal amount of cough with some scant sputum production. No hemoptysis. No fevers chills or night sweats. Review of Systems 2 Review of Systems: All systems reviewed & are unremarkable except as noted in Subjective Physical Exam 2 Constitutional: WD/WN, vitals as above Neck: trachea midline, no thyromegaly Respiratory: no respiratory distress, no labored breathing, no cough and not tachypneic Auscultation: + diminished lung sounds; no crackles and no wheezes Cardiovascular: RRR, no murmur, no edema Gastrointestinal (Abdomen): normal bowel sounds, soft, nontender, no hepatosplenomegaly Musculoskeletal: Extremities: extremities normal to inspection Skin: no rashes, warm and dry Lymphatic: no cervical lymphadenopathy Results & Data Results & Data Vital Signs (Past 12 Hours) Vital Signs Temp Pulse Pulse Resp BP BP Pulse Ox 05/13/24 10:24 36.5 C 77 18 127/70 94 05/13/24 08:39 36.6 C 19 121/74 93 05/13/24 07:57 73 05/13/24 07:13 74 17 91 05/13/24 02:57 36.5 C 83 20 160/84 H 92 05/13/24 01:08 76 18 94 O2 Del Method O2 Flow Rate 05/13/24 10:24 Nasal Cannula 05/13/24 08:39 Nasal Cannula 6 05/13/24 07:57 05/13/24 07:13 Nasal Cannula 4.5 05/13/24 02:57 Nasal Cannula 3 05/13/24 01:08 Nasal Cannula 5 Laboratory Results 05/13/24 06:54 05/13/24 06:54 Diagnostic Findings No new imaging PG Care Time/CCT Total # of Minutes Spent Total Time Spent with Patient: Total time spent is greater than 50% in coordination of care (as documented) at patient's floor/unit and/or counseling patient: Coding Level of Care Code 10218 SUB INP/OBS CARE 2/35MIN Diagnoses Acute exacerbation of chronic obstructive pulmonary disease J44.1 Acute on chronic respiratory failure with hypoxia and hypercapnia J96.21; J96.22
[2024-05-13] MEDS: FUROSEMIDE INJ 20 MG/2 ML VIAL IV ONE (11:42)
[2024-05-13] MEDS: methylPREDNISolone 40 MG in SYRINGE 0 ML IV ONE (12:43)
--- NOTE | 2024-05-13 18:11 | Hospitalist Progress Note ---
Date of Service May 13, 2024 delayed entry date of service noted above Assessment & Plan (1) Acute on chronic respiratory failure with hypoxemia: (2) Acute exacerbation of chronic obstructive pulmonary disease: (3) Acute bronchitis: Plan: per previous hospitalist notes with addendum: 58 year old female with history of COPD, Chronic Respiratory Failure on 4L O2 via nasal cannula, PE on Eliquis, Alcoholism, etc presenting with cough, shortness of breath x few days. ACUTE ON CHRONIC HYPOXIC RESPIRATORY FAILURE COPD EXACERBATION, SECONDARY TO ACUTE BRONCHITIS usually on 4 L NC, presented to hospital; required HFNC CXR no pneumonia Negative for Covid, RSV, Flu MRSA swab -ve sputum culture- Streptococcus pneumoniae Antibiotics changed to Augmentin based on sputum culture results. Continue DuoNeb as needed. Continue Mucinex and prednisolone Wean off oxygen as tolerated Pulmonology on board appreciate recommendation 05/13 still wheezing continue prednisone, nebs monitor Alcohol use disorder Alcohol withdrawal drink 2-3 shots of vodka daily last drink 2 days ago Alcohol withdrawal protocol LFTs slight elevated, monitor Will decrease the frequency of Valium to twice a day. 05/13 continue Valium BILATERAL LOWER EXTREMITY EDEMA mild on Lasix PO, no documented history of CHF per my review of records, taken for "leg swelling" Echo in November 19 showing mild LVH, preserved EF continue usual PO Lasix HYPERTENSION BP on the lower side on amlodpine, continue continue Metoprolol HISTORY OF PE on Eliquis, continue HISTORY OF OPIOID DEPENDENCE on Methadone 100mg po daily, confirmed with patient [facility] prescribes Methadone for the patient Verified with Methadone center on 05/10/2024 other past medical history: history of pulmonary hypertension, PFO, history of IVDA in remission, Hx of endocarditis DVT PROPHYLAXIS on Eliquis Full Code Disposition lives at home anticipate d/c home when medically stable uses 4 L o2 via NC at home PT/OT ordered Time spent evaluating patient, direct bedside care, chart review, placing orders, interpretation of diagnostic studies, discussion with consultants, patient, and family members, as well as other required patient management activities is 50 minutes Please note the above document was generated using voice recognition software. It may contain grammatical, syntax or spelling errors. Any formal questions or concerns about the content, text or information contained within the body of this dictation should be directly addressed to the provider for clarification Admission and Anticipated Discharge Date Admission Date: May 09, 2024 Subjective ff up for copd etc seen resting in bed, comfortable still having shortness of breath, cough no chest pain still has some tremors, anxiety no other symptoms Review of Systems Review of Systems: all noted and negative except for above Physical Exam Physical Exam: General- oriented x 3, not in distress, speaks in sentences with no effort or accessory muscle use Eyes- anicteric Neck- no JVD Lungs- (+) mild wheeze BL Heart- normal rate, regular rhythm; no murmurs Abdomen- normal bowel sounds, nondistended, soft, no tenderness Extremities- no pretibial edema, no calf tenderness Neuro- alert, oriented x 3; no gross focal neurologic deficits Skin- warm & dry Results & Data Results & Data Vital Signs (Past 12 Hours) Vital Signs Temp Pulse Pulse Resp BP BP Pulse Ox 05/13/24 15:55 36.7 C 77 21 149/77 H 92 05/13/24 14:39 82 05/13/24 13:15 74 22 94 05/13/24 11:33 36.8 C 78 18 134/74 93 05/13/24 10:24 36.5 C 77 18 127/70 94 05/13/24 08:39 36.6 C 19 121/74 93 05/13/24 08:00 05/13/24 07:57 73 05/13/24 07:13 74 17 91 O2 Del Method O2 Flow Rate 05/13/24 15:55 Nasal Cannula 5 05/13/24 14:39 05/13/24 13:15 Nasal Cannula 5 05/13/24 11:33 Nasal Cannula 5 05/13/24 10:24 Nasal Cannula 05/13/24 08:39 Nasal Cannula 6 05/13/24 08:00 Nasal Cannula 4 05/13/24 07:57 05/13/24 07:13 Nasal Cannula 4.5 all noted and reviewed including below (3) Acute bronchitis Bronchitis organism: unspecified organism Qualified Code(s): J20.9 - Acute bronchitis, unspecified
[2024-05-14] MEDS: ACETAMINOPHEN 325 MG TAB PO PRN (01:38)
[2024-05-14] MEDS: ADVANCED PROBIOTIC 625 MG CAPSULE PO SCH (10:53)
[2024-05-14] MEDS ORDERED: methylPREDNISolone 125 MG/2 ML VIAL IV STA (15:11)
[2024-05-14] MEDS: LORazepam 0.5 MG TAB PO PRN (16:29)
[2024-05-14] MEDS: FUROSEMIDE INJ 20 MG/2 ML VIAL IV ONE (16:30)
--- NOTE | 2024-05-14 16:31 | Hospitalist Progress Note ---
Date of Service May 14, 2024 Assessment & Plan (1) Acute on chronic respiratory failure with hypoxemia: (2) Acute exacerbation of chronic obstructive pulmonary disease: (3) Acute bronchitis: Plan: per previous hospitalist notes with addendum: 58 year old female with history of COPD, Chronic Respiratory Failure on 4L O2 via nasal cannula, PE on Eliquis, Alcoholism, etc presenting with cough, shortness of breath x few days. ACUTE ON CHRONIC HYPOXIC RESPIRATORY FAILURE COPD EXACERBATION, SECONDARY TO ACUTE BRONCHITIS, Strep pneumoniae usually on 4 L NC, presented to hospital; required HFNC CXR no pneumonia Negative for Covid, RSV, Flu MRSA swab -ve sputum culture- Streptococcus pneumoniae Antibiotics changed to Augmentin based on sputum culture results. Continue DuoNeb as needed. Continue Mucinex and prednisolone Wean off oxygen as tolerated Pulmonology on board appreciate recommendation 05/14 repeat CXR: No acute abnormalities and in particular no radiographic evidence of pneumonia. still (+) wheeze Solumedrol 20mg IV ordered in addition to Prednisone 20mg po daily continue Augmentin BID Day 11/02 continue Anoro Ellipta Alcohol use disorder Alcohol withdrawal drink 2-3 shots of vodka daily last drink 2 days ago Alcohol withdrawal protocol LFTs slight elevated, monitor Will decrease the frequency of Valium to twice a day. 05/14 improving decrease Valium to daily BILATERAL LOWER EXTREMITY EDEMA mild on Lasix PO, no documented history of CHF per my review of records, taken for "leg swelling" Echo in November 19 showing mild LVH, preserved EF continue usual PO Lasix 05/14 (+) BL arm edema, possible mild volume overload additional Lasix 20mg IV today HYPERTENSION on amlodpine, continue continue Metoprolol HISTORY OF PE on Eliquis, continue HISTORY OF OPIOID DEPENDENCE on Methadone 100mg po daily, confirmed with patient [facility] prescribes Methadone for the patient Verified with Methadone center on 05/10/2024 other past medical history: history of pulmonary hypertension, PFO, history of IVDA in remission, Hx of endocarditis DVT PROPHYLAXIS on Eliquis Full Code Disposition lives at home anticipate d/c home when medically stable uses 4 L o2 via NC at home PT/OT ordered Admission and Anticipated Discharge Date Admission Date: May 09, 2024 Subjective ff up for acute copd exacerbation, etc seen resting in bed, comfortable on 4 L NC states she is still having wheezing but improved compared to yesterday breathing is ok, but not yet baseline still has occasional dry cough no chest pain, palpitations, dizziness no other symptoms Review of Systems Review of Systems: all noted and negative except for above Physical Exam Physical Exam: General- oriented x 3, not in distress, speaks in sentences with no effort or accessory muscle use Eyes- anicteric Neck- no JVD Lungs-(+) mild scattered wheezing BL mild rales at the bases Heart- normal rate, regular rhythm; no murmurs Abdomen- normal bowel sounds, nondistended, soft, nontender Extremities- mild pretibial edema, no calf tenderness mild BL forearm edema Neuro- alert, oriented x 3; no gross focal neurologic deficits Skin- warm & dry Results & Data Results & Data Vital Signs (Past 12 Hours) Vital Signs Temp Pulse Resp BP BP Pulse Ox O2 Del Method 05/14/24 15:13 36.4 C L 75 22 167/79 H 90 Nasal Cannula 05/14/24 10:25 36.8 C 67 19 121/70 92 Nasal Cannula 05/14/24 08:30 Room Air 05/14/24 08:17 36.4 C L 66 19 133/81 93 Nasal Cannula 05/14/24 06:56 67 17 96 Nasal Cannula 05/14/24 06:14 36.4 C L 65 18 128/78 96 Nasal Cannula O2 Flow Rate 05/14/24 15:13 4 05/14/24 10:25 4 05/14/24 08:30 05/14/24 08:17 4 05/14/24 06:56 5 05/14/24 06:14 4 all noted and reviewed including below (3) Acute bronchitis Bronchitis organism: unspecified organism Qualified Code(s): J20.9 - Acute bronchitis, unspecified
[2024-05-14] MEDS: methylPREDNISolone 20 MG in SYRINGE 0 ML IV ONE (18:07)
[2024-05-15] MEDS: predniSONE 20 MG TAB PO STA (12:34)
[2024-05-15] MEDS: FUROSEMIDE 20 MG TAB PO ONE (12:35)
[2024-05-15] MEDS: ALBUT/IPRATROP 3MG/0.5MG NEB 3 ML VIAL NEB PRN (12:40)
[2024-05-15] MEDS: diazePAM 5 MG TABLET PO SCH (18:08)
--- NOTE | 2024-05-15 19:22 | Hospitalist Progress Note ---
Date of Service May 15, 2024 delayed entry date of service noted above Assessment & Plan (1) Acute on chronic respiratory failure with hypoxemia: (2) Acute exacerbation of chronic obstructive pulmonary disease: (3) Acute bronchitis: Plan: per previous hospitalist notes with addendum: 58 year old female with history of COPD, Chronic Respiratory Failure on 4L O2 via nasal cannula, PE on Eliquis, Alcoholism, etc presenting with cough, shortness of breath x few days. ACUTE ON CHRONIC HYPOXIC RESPIRATORY FAILURE COPD EXACERBATION, SECONDARY TO ACUTE BRONCHITIS, Strep pneumoniae usually on 4 L NC, presented to hospital; required HFNC CXR no pneumonia Negative for Covid, RSV, Flu MRSA swab -ve sputum culture- Streptococcus pneumoniae Antibiotics changed to Augmentin based on sputum culture results. Continue DuoNeb as needed. Continue Mucinex and prednisolone Wean off oxygen as tolerated Pulmonology on board appreciate recommendation 05/14 repeat CXR: No acute abnormalities and in particular no radiographic evidence of pneumonia. still (+) wheeze Solumedrol 20mg IV ordered in addition to Prednisone 20mg po daily continue Augmentin BID Day 11/02 continue Anoro Ellipta 05/15 still has mild wheeze additional Prednisone 20mg po daily Alcohol use disorder Alcohol withdrawal drink 2-3 shots of vodka daily last drink 2 days ago Alcohol withdrawal protocol LFTs slight elevated, monitor Will decrease the frequency of Valium to twice a day. 05/14 improving decrease Valium to daily 05/15 patient still having significant tremors resume Valium 5mg BID BILATERAL LOWER EXTREMITY EDEMA mild on Lasix PO, no documented history of CHF per my review of records, taken for "leg swelling" Echo in November 19 showing mild LVH, preserved EF continue usual PO Lasix 05/14 (+) BL arm edema, possible mild volume overload additional Lasix 20mg IV today 05/15 Lasix 20mg po added HYPERTENSION on amlodpine, continue continue Metoprolol HISTORY OF PE on Eliquis, continue HISTORY OF OPIOID DEPENDENCE on Methadone 100mg po daily, confirmed with patient [facility] prescribes Methadone for the patient Verified with Methadone center on 05/10/2024 other past medical history: history of pulmonary hypertension, PFO, history of IVDA in remission, Hx of endocarditis DVT PROPHYLAXIS on Eliquis Full Code Disposition lives at home anticipate d/c home when medically stable uses 4 L o2 via NC at home PT/OT ordered plan of care discussed with patient and her significant other in detail and at length all questions answered they are understanding, agreeable, comfortable with the plan of care Admission and Anticipated Discharge Date Admission Date: May 09, 2024 Subjective seen resting in bed, comfortable breathing is ok, less cough still having tremors, anxiety no other new symptoms re-evaluated late afternoon, significant other updated per his request lengthy discussion re: medical condition and plan of care they are understanding, agreeable, comfortable with plan of care Review of Systems Review of Systems: all noted and negative except for above Physical Exam 2 Physical Exam: General- oriented x 3, not in distress, speaks in sentences with no effort or accessory muscle use Eyes- anicteric Neck- no JVD Lungs- mild wheeze BL Heart- normal rate, regular rhythm; no murmurs Abdomen- normal bowel sounds, nondistended, soft, no tenderness Extremities- no pretibial edema, no calf tenderness Neuro- alert, oriented x 3; no gross focal neurologic deficits Skin- warm & dry Results & Data Results & Data Vital Signs (Past 12 Hours) Vital Signs Temp Pulse Pulse Resp BP BP Pulse Ox 05/15/24 18:15 36.7 C 72 17 131/77 92 05/15/24 15:54 65 05/15/24 14:38 36.5 C 71 19 136/72 93 05/15/24 12:40 69 18 93 05/15/24 10:50 67 20 119/69 91 05/15/24 08:00 79 05/15/24 08:00 05/15/24 07:53 36.5 C 71 20 166/70 H 92 O2 Del Method O2 Flow Rate 05/15/24 18:15 Nasal Cannula 4 05/15/24 15:54 05/15/24 14:38 Nasal Cannula 4 05/15/24 12:40 Nasal Cannula 4 05/15/24 10:50 Nasal Cannula 4 05/15/24 08:00 05/15/24 08:00 Nasal Cannula 4 05/15/24 07:53 Nasal Cannula 4 all noted and reviewed including below (3) Acute bronchitis Bronchitis organism: unspecified organism Qualified Code(s): J20.9 - Acute bronchitis, unspecified
[2024-05-16] MEDS: DULoxetine HCL 30 MG CAP PO ONE (12:12)
[2024-05-16] MEDS: LORazepam 0.5 MG TAB PO PRN (12:12)
[2024-05-16] MEDS: BUDESONIDE 0.25 MG/2 ML VIAL (PULMICORT) NEB SCH (13:32)
--- NOTE | 2024-05-16 13:54 | Ultrasound Report ---
US abdomen ltd ascites CLINICAL HISTORY: POSSIBLE ASCITES TECHNIQUE: Real-time grayscale sonographic images of the abdomen were obtained. Comparison: Comparison is made to liver ultrasound 11/21/2023 FINDINGS/IMPRESSION: No ascites is seen. ACT 112: Negative or not required by law. Electronically signed by: Eric Ramires M.D. 05/16/2024 1:52 PM
--- NOTE | 2024-05-16 15:33 | Psychiatric Consultation ---
Date of Consultation May 16, 2024 Impression / Recommendations Impression 58 y/o Female h/o COPD, alcohol use disorder who presents with acute on chronic resp failure, bronchitis, and alcohol withdrawal. Psychiatry consulted for depression medication recommendations. Concern for recent rash from Duloxetine formulation. Completing valium taper for alcohol withdrawal. Dx consistent with MDD, Cluster B PD, Alcohol use disorder/severe, Opiate use in remission. In addition to Duloxetine, has only tried one other antidepressant, Fluoxetine, many years ago and was in active drug use then. Presents depression with associated irritability and anxiety. Recommend to d/c Duloxetine and to start Escitalopram 5mg daily to target anxiety symptoms, if tolerated can increase to 10mg in 2-3 days. Rec outpatient psychiatrist f/u. Pt was educated about med timeline, and reassured about potential for improvement with treatments. Overall, I spent a total of 60 minutes with this case including review of chart records, nursing report, review of lab work, direct evaluation of the patient at bedside, counseling the patient, discussion of the patient with the hospitalist provider, discussion with the psychiatric liaison during clinical rounds, and documentation in the electronic health record. (1) MDD (major depressive disorder), recurrent episode, moderate: (2) Alcohol use disorder, moderate, dependence: (3) Cluster B personality disorder: (4) Methadone maintenance therapy patient: (5) Opioid use disorder, severe, in sustained remission: Plan d/c Duloxetine and to start Escitalopram 5mg daily to target anxiety symptoms, if tolerated can increase to 10mg in 2-3 days. Rec outpatient psychiatrist f/u. Psych History Identifying Data 58 y/o Female h/o COPD, alcohol use disorder who presents with acute on chronic resp failure, bronchitis, and alcohol withdrawal. Psychiatry consulted for depression medication recommendations. Concern for recent rash from Duloxetine formulation. Completing valium taper for alcohol withdrawal. Chief Complaint "anxiety, agitation" History of Present Illness Patient reports being on cymbalta 30mg, previously 60mg, for 3 years. Reports was changed to a diff brand recently and c/o rash. Does not want to restart cymbalta. C/o restlessness, difficulty with concentration. C/o high to low emotions since 20s. C/o fear of abandonment. Reports episode depression with worsenning mood, poor sleep, poor appetite, loss of concentration, anhedonia and occurs upto a 1 month at a time with partial improvement in between. Associated irritability and anxiety. Lives alone. Has partner of 18 years. Feels partner is struggling and is controlling of her. Reports parental neglect as a child and raised by absentee father. "Raised her two younger siblings" and never got to be a kid. Mother often wanted to "democrat" and "Was more like a friend than a parent." Reports recent escalating alcohol use to escape sadness. Mother 4 years ago and use escalated. Reports historical heroin use with boyfriend and spiraled into a bigger problem. Reports long-term abstinence from opiates and on methadone. Denies other drug use. Allergies Allergy/AdvReac Type Severity Reaction Status Date / Time fluticasone furoate AdvReac Intermediate INTENSE Verified 03/09/24 08:50 [From Trelegy Ellipta] HEADACHES umeclidinium AdvReac Intermediate INTENSE Verified 03/09/24 08:50 [From Trelegy Ellipta] HEADACHES vilanterol AdvReac Intermediate INTENSE Verified 03/09/24 08:50 [From Trelegy Ellipta] HEADACHES buspirone [From BuSpar] AdvReac Mild Rash Verified 03/09/24 08:50 olive oil AdvReac Unknown reacts Verified 03/09/24 08:50 with methadone Home Medications Medication Instructions Recorded Confirmed Type amlodipine 10 mg tablet 10 mg PO QAM 05/16/22 05/09/24 History duloxetine 30 mg capsule,delayed 30 mg PO QAM 05/16/22 05/09/24 History release albuterol sulfate 90 mcg/actuation 2 puff inhalation Q6H PRN Cough 09/12/22 05/09/24 History aerosol inhaler apixaban 5 mg tablet (Eliquis) 5 mg PO BID #63 tabs 09/21/22 05/09/24 Rx furosemide 40 mg tablet 40 mg PO QAM #30 tabs 09/21/22 05/09/24 Rx methadone 10 mg/5 mL oral solution 100 mg PO QAM 06/25/23 05/09/24 History nicotine 7 mg/24 hr daily 1 patch transdermal DAILY 06/25/23 05/09/24 History transdermal patch pantoprazole 40 mg tablet,delayed 40 mg PO QAM 06/25/23 05/09/24 History release metoprolol succinate 25 mg 12.5 mg PO BID 08/23/23 05/09/24 History tablet,extended release 24 hr potassium chloride 10 mEq 20 meq PO BID 11/20/23 05/09/24 History tablet,extended release(part/cryst) folic acid 1 mg tablet 1 mg PO QAM 01/21/24 05/09/24 History magnesium oxide 400 mg (241.3 mg 800 mg PO HS 05/09/24 05/09/24 History magnesium) tablet Patient History Medical History Edema of both lower extremities Difficult intravenous access Pulmonary hypertension Follow with S Hx of pulmonary embolus dx 08/2022 - unknown the cause. treated with anticoagulants. 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 Down to three drinks a week GERD (gastroesophageal reflux disease) History of aspiration pneumonia 08/2022 from vomiting -- reports she "passed out and vomited while she was incoherent" per KRISHNA RN COPD (chronic obstructive pulmonary disease) well controlled currently, uses 4lpm oxygen via n/c continuously Hx of sinus bradycardia episode when vitamin levels were low. no current issue History of endocarditis --- r/t IV drug use. S/P transesophageal echocardiogram (RENATA) Lung nodule monitoring Constipation Anxiety On home oxygen therapy 4lpm via n/c daily Recurrent major depressive disorder Surgical History S/P right cataract extraction Status post total hip replacement, right Family History Other Family history non-contributory No family history of adverse response to anesthesia Social History Smoking Status: Current every day smoker Tobacco Type: Cigarettes Cigarettes Per Day: 3; Second Hand Exposure: No; Do You Dip or Chew Tobacco: No; Hx Alcohol Use: Yes Alcohol type: hard liquor Hx Substance Use: Yes Last Used Substance: Days (ago) Last Used Substance Other:: remote hx of cocaine and heroin use (2008); med marijuana ~3-4x/week now Preferred Language: Japanese Communication Ability: Effective Head Animal Keeper Required: No Beliefs That Will Affect Care: None Current Living Situation: Alone Other Information That Helps Us Care for You: No Feels Safe at Home: Yes Safety Concerns: Feels Safe At This Time Assistive Devices: Oxygen - Continuous Physical Exam Mental Examination: Appearance: Disheveled (missing front teeth) Eye Contact: Maintains Eye Contact Motor Behavior: Unremarkable Speech: Normal Mood: Anxious, Happy and Sad Affect: Appropriate and Labile (at times) Thought Process: Intact and Linear Thought Content: Intact Hallucinations: None Insight: Fair (to limited) Judgement: Poor (to limited) Vital Signs (Past 24 Hours): Last Vital Signs Temp 36.7 C 05/16/24 14:53 Pulse 77 05/16/24 14:53 Resp 18 05/16/24 14:53 BP 151/79 H 05/16/24 14:53 Pulse Ox 90 05/16/24 14:53 O2 Del Method Nasal Cannula 05/16/24 14:53 O2 Flow Rate 4 05/16/24 13:33 FiO2 65 05/09/24 21:00 Results & Data (PSY) Diagnostic Findings VSS. CBC, BMP stable. Elevated aminotransferases. EKG within expected limits. Medications Administered Acetaminophen (Acetaminophen 325 Mg Tab) 650 mg PO Q4H PRN PRN Reason: Pain or Fever Stop: 06/08/24 16:40 Last Admin: 05/16/24 08:14 Dose: 650 mg Documented By: Admin: 05/14/24 01:38 Dose: 650 mg Documented By: ALICE Albuterol (Albut/Ipratrop 3mg/0.5mg Neb 3 Ml Vial) 3 ml NEB Q6R PRN; Protocol PRN Reason: Wheezing Stop: 06/11/24 12:59 Last Admin: 05/15/24 12:40 Dose: 3 ml Documented By: ТАТЬЯНА Amlodipine Besylate (Amlodipine Besylate 5 Mg Tab) 10 mg PO QAM [facility] Stop: 06/11/24 12:44 Last Admin: 05/16/24 08:12 Dose: 10 mg Documented By: GDDorothy Admin: 05/15/24 08:12 Dose: 10 mg Documented By: Admin: 05/14/24 10:40 Dose: 10 mg Documented By: Admin: 05/13/24 08:58 Dose: 10 mg Documented By: Admin: 05/12/24 13:25 Dose: 10 mg Documented By: JUAN MANUEL Amoxicillin/Clavulanate Potassium (Amoxicillin/Clavulanate 875 Mg Tab) 1 tab PO BIDM [facility] Stop: 05/16/24 16:59 Last Admin: 05/16/24 08:11 Dose: 1 tab Documented By: Admin: 05/15/24 18:09 Dose: 1 tab Documented By: Admin: 05/15/24 08:12 Dose: 1 tab Documented By: Admin: 05/14/24 16:30 Dose: 1 tab Documented By: Admin: 05/14/24 10:41 Dose: 1 tab Documented By: Admin: 05/13/24 16:13 Dose: 1 tab Documented By: Admin: 05/13/24 08:57 Dose: 1 tab Documented By: Admin: 05/12/24 16:42 Dose: 1 tab Documented By: JUAN MANUEL Admin: 05/12/24 09:15 Dose: 1 tab Documented By: JUAN MANUEL Admin: 05/11/24 16:08 Dose: 1 tab Documented By: STEPHANIE Apixaban (Apixaban 5 Mg Tablet) 5 mg PO BID [facility] Stop: 06/08/24 20:59 Last Admin: 05/16/24 08:13 Dose: 5 mg Documented By: Admin: 05/15/24 19:46 Dose: 5 mg Documented By: Admin: 05/15/24 08:14 Dose: 5 mg Documented By: Admin: 05/14/24 21:14 Dose: 5 mg Documented By: Admin: 05/14/24 10:40 Dose: 5 mg Documented By: Admin: 05/13/24 22:01 Dose: 5 mg Documented By: Admin: 05/13/24 08:58 Dose: 5 mg Documented By: Admin: 05/12/24 22:36 Dose: 5 mg Documented By: Admin: 05/12/24 09:13 Dose: 5 mg Documented By: JUAN MANUEL Admin: 05/11/24 20:11 Dose: 5 mg Documented By: Admin: 05/11/24 09:36 Dose: 5 mg Documented By: Admin: 05/10/24 20:37 Dose: 5 mg Documented By: CR(2) Admin: 05/10/24 08:28 Dose: 5 mg Documented By: Admin: 05/09/24 20:20 Dose: 5 mg Documented By: MES Budesonide (Budesonide 0.25 Mg/2 Ml Vial (Pulmicort)) 0.25 mg NEB BIDR [facility] Stop: 06/15/24 11:44 Last Admin: 05/16/24 13:32 Dose: 0.25 mg Documented By: SALLIE Diazepam (Diazepam 5 Mg Tablet) 5 mg PO BID [facility] Stop: 06/14/24 16:59 Last Admin: 05/16/24 08:14 Dose: 5 mg Documented By: Admin: 05/15/24 18:08 Dose: 5 mg Documented By: KARLOS Duloxetine HCl (Duloxetine Hcl 30 Mg Cap) [facility] Stop: 06/09/24 08:59 Last Admin: 05/10/24 08:28 Dose: 30 mg Documented By: BT Folic Acid (Folic Acid 1 Mg Tab) [facility] Stop: 06/09/24 08:59 Last Admin: 05/16/24 08:18 Dose: 1 mg Documented By: Admin: 05/15/24 08:14 Dose: 1 mg Documented By: Admin: 05/14/24 10:41 Dose: 1 mg Documented By: Admin: 05/13/24 08:58 Dose: 1 mg Documented By: Admin: 05/12/24 09:15 Dose: 1 mg Documented By: JUAN MANUEL Admin: 05/11/24 09:36 Dose: 1 mg Documented By: Admin: 05/10/24 08:28 Dose: 1 mg Documented By: STEPHANIE Furosemide (Furosemide 40 Mg Tab) 40 mg PO [facility] Stop: 06/09/24 08:59 Last Admin: 05/16/24 08:18 Dose: 40 mg Documented By: Admin: 05/15/24 08:12 Dose: 40 mg Documented By: Admin: 05/14/24 10:41 Dose: 40 mg Documented By: Admin: 05/13/24 08:58 Dose: 40 mg Documented By: Admin: 05/12/24 09:14 Dose: 40 mg Documented By: JUAN MANUEL Admin: 05/11/24 09:36 Dose: 40 mg Documented By: Admin: 05/10/24 08:28 Dose: 40 mg Documented By: BT Guaifenesin (Guaifenesin 600 Mg Tabcr) 1,200 mg PO Q12 [facility] Stop: 06/09/24 20:59 Last Admin: 05/16/24 08:18 Dose: 1,200 mg Documented By: Admin: 05/15/24 19:46 Dose: Not Given Documented By: Admin: 05/15/24 08:12 Dose: 1,200 mg Documented By: Admin: 05/14/24 21:14 Dose: 1,200 mg Documented By: Admin: 05/14/24 10:38 Dose: 1,200 mg Documented By: Admin: 05/13/24 22:01 Dose: 1,200 mg Documented By: Admin: 05/13/24 08:59 Dose: 1,200 mg Documented By: Admin: 05/12/24 22:34 Dose: 1,200 mg Documented By: Admin: 05/12/24 09:14 Dose: 1,200 mg Documented By: Admin: 05/11/24 20:11 Dose: 1,200 mg Documented By: Admin: 05/11/24 09:36 Dose: 1,200 mg Documented By: Admin: 05/10/24 20:38 Dose: 1,200 mg Documented By: CR(2) Thiamine HCl 100 mg/ Syringe 10 mls @ 2 mls/min IV QAM [facility] Stop: 06/08/24 16:40 Last Admin: 05/16/24 08:23 Dose: 2 mls/min Documented By: Admin: 05/15/24 08:15 Dose: 2 mls/min Documented By: Admin: 05/14/24 10:37 Dose: 2 mls/min Documented By: Admin: 05/13/24 09:00 Dose: 2 mls/min Documented By: Admin: 05/12/24 09:13 Dose: 2 mls/min Documented By: Admin: 05/11/24 09:37 Dose: 2 mls/min Documented By: Admin: 05/10/24 08:29 Dose: 2 mls/min Documented By: Admin: 05/09/24 17:21 Dose: 2 mls/min Documented By: BT Lactobacillus Acidophilus (Advanced Probiotic 625 Mg Capsule) 1,250 mg PO DAILY [facility] Stop: 06/13/24 08:59 Last Admin: 05/16/24 08:16 Dose: 1,250 mg Documented By: Admin: 05/15/24 08:10 Dose: 1,250 mg Documented By: Admin: 05/14/24 10:53 Dose: 1,250 mg Documented By: MTP Lorazepam (Lorazepam 2 Mg/1 Ml Vial) 1 mg IV UD PRN; Protocol PRN Reason: EtOH Withdrawal AWSS Score 6,7 Stop: 06/08/24 16:40 Last Admin: 05/14/24 21:15 Dose: 1 mg Documented By: Admin: 05/14/24 18:07 Dose: 1 mg Documented By: Admin: 05/14/24 13:47 Dose: 1 mg Documented By: Admin: 05/13/24 22:12 Dose: 1 mg Documented By: Admin: 05/13/24 18:36 Dose: 1 mg Documented By: Admin: 05/13/24 16:22 Dose: 1 mg Documented By: Admin: 05/13/24 11:42 Dose: 1 mg Documented By: Admin: 05/13/24 03:02 Dose: 1 mg Documented By: Admin: 05/11/24 22:29 Dose: 1 mg Documented By: Admin: 05/11/24 16:16 Dose: 1 mg Documented By: Admin: 05/11/24 12:13 Dose: 1 mg Documented By: Admin: 05/11/24 04:46 Dose: 1 mg Documented By: CR(2) Admin: 05/10/24 20:33 Dose: 1 mg Documented By: CR(2) Lorazepam (Lorazepam 2 Mg/1 Ml Vial) 2 mg IV UD PRN; Protocol PRN Reason: EtOH Withdrawal AWSS Score 8,9 Stop: 06/08/24 16:40 Last Admin: 05/16/24 03:39 Dose: 2 mg Documented By: Admin: 05/15/24 23:10 Dose: 2 mg Documented By: Admin: 05/15/24 19:43 Dose: 2 mg Documented By: Admin: 05/15/24 15:40 Dose: 2 mg Documented By: Admin: 05/15/24 08:07 Dose: 2 mg Documented By: Admin: 05/15/24 00:16 Dose: 2 mg Documented By: Admin: 05/14/24 01:31 Dose: 2 mg Documented By: Admin: 05/12/24 16:40 Dose: 2 mg Documented By: Admin: 05/12/24 01:21 Dose: 2 mg Documented By: Admin: 05/09/24 22:28 Dose: 2 mg Documented By: MES Lorazepam (Lorazepam 0.5 Mg Tab) 0.5 mg PO Q4H PRN PRN Reason: Anxiety Stop: 06/13/24 15:10 Last Admin: 05/16/24 12:12 Dose: 0.5 mg Documented By: MP Magnesium Oxide (Magnesium Oxide 400 Mg Tab) 800 mg PO HS [facility] Stop: 06/08/24 20:59 Last Admin: 05/15/24 19:47 Dose: 800 mg Documented By: Admin: 05/14/24 21:14 Dose: 800 mg Documented By: Admin: 05/13/24 22:02 Dose: 800 mg Documented By: Admin: 05/12/24 22:36 Dose: 800 mg Documented By: Admin: 05/11/24 20:11 Dose: 800 mg Documented By: Admin: 05/10/24 20:38 Dose: 800 mg Documented By: CR(2) Admin: 05/09/24 20:21 Dose: 800 mg Documented By: MES Methadone HCl (Methadone Oral Soln 2 Mg/Ml) 100 mg PO QAM [facility] Stop: 05/24/24 08:59 Last Admin: 05/16/24 08:15 Dose: 100 mg Documented By: Admin: 05/15/24 09:24 Dose: 100 mg Documented By: Admin: 05/14/24 10:34 Dose: 100 mg Documented By: Admin: 05/13/24 09:05 Dose: 100 mg Documented By: Admin: 05/12/24 09:13 Dose: 100 mg Documented By: JUAN MANUEL Admin: 05/11/24 09:41 Dose: 100 mg Documented By: Admin: 05/10/24 09:45 Dose: 100 mg Documented By: BT Metoprolol Succinate (Metoprolol Succ 25mg Ext Rel Tab) 12.5 mg PO BID [facility] Stop: 06/08/24 20:59 Last Admin: 05/16/24 08:16 Dose: 12.5 mg Documented By: Admin: 05/15/24 19:46 Dose: 12.5 mg Documented By: Admin: 05/15/24 08:13 Dose: 12.5 mg Documented By: Admin: 05/14/24 21:14 Dose: 12.5 mg Documented By: Admin: 05/14/24 10:42 Dose: 12.5 mg Documented By: Admin: 05/13/24 22:02 Dose: 12.5 mg Documented By: Admin: 05/13/24 08:59 Dose: 12.5 mg Documented By: Admin: 05/12/24 22:37 Dose: 12.5 mg Documented By: Admin: 05/12/24 09:14 Dose: 12.5 mg Documented By: JUAN MANUEL Admin: 05/11/24 20:11 Dose: 12.5 mg Documented By: Admin: 05/11/24 09:37 Dose: 12.5 mg Documented By: Admin: 05/10/24 20:37 Dose: 12.5 mg Documented By: ALICE(2) Admin: 05/10/24 08:29 Dose: 12.5 mg Documented By: Admin: 05/09/24 20:20 Dose: 12.5 mg Documented By: MES Miscellaneous (Remove Nicoderm Patch) 1 each N/A DAILY@0859 [facility] Stop: 06/09/24 08:58 Last Admin: 05/16/24 08:12 Dose: 1 each Documented By: Admin: 05/15/24 08:16 Dose: 1 each Documented By: Admin: 05/14/24 10:40 Dose: 1 each Documented By: Admin: 05/13/24 09:01 Dose: 1 each Documented By: Admin: 05/12/24 10:15 Dose: 1 each Documented By: JUAN MANUEL Admin: 05/11/24 09:38 Dose: 1 each Documented By: Admin: 05/10/24 08:29 Dose: Not Given Documented By: BT Nicotine (Nicotine 14 Mg/24 Hr Patch) 1 patch TD DAILY [facility] Stop: 06/09/24 08:59 Last Admin: 05/16/24 08:12 Dose: 1 patch Documented By: Admin: 05/15/24 08:11 Dose: 1 patch Documented By: Admin: 05/14/24 10:39 Dose: 1 patch Documented By: Admin: 05/13/24 08:59 Dose: 1 patch Documented By: Admin: 05/12/24 09:15 Dose: 1 patch Documented By: JUAN MANUEL Admin: 05/11/24 09:37 Dose: 1 patch Documented By: Admin: 05/10/24 08:27 Dose: 1 patch Documented By: STEPHANIE Non-Formulary Medication (Patient's Own Controlled Med 1) 1 each N/A Q24H [facility] Stop: 05/24/24 08:59 Last Admin: 05/16/24 08:20 Dose: 100 mg Documented By: Admin: 05/15/24 08:15 Dose: 1 mg Documented By: Admin: 05/14/24 10:47 Dose: Not Given Documented By: Admin: 05/13/24 09:06 Dose: 100 mg Documented By: Admin: 05/12/24 09:25 Dose: 50 mg Documented By: JUAN MANUEL Admin: 05/11/24 09:41 Dose: 100 mg Documented By: Admin: 05/10/24 09:45 Dose: 100 mg Documented By: STEPHANIE Pantoprazole Sodium (Pantoprazole 40 Mg Tab) 40 mg PO QAM [facility] Stop: 06/09/24 08:59 Last Admin: 05/16/24 08:18 Dose: 40 mg Documented By: Admin: 05/15/24 08:12 Dose: 40 mg Documented By: Admin: 05/14/24 10:38 Dose: 40 mg Documented By: Admin: 05/13/24 08:59 Dose: 40 mg Documented By: Admin: 05/12/24 09:14 Dose: 40 mg Documented By: JUAN MANUEL Admin: 05/11/24 09:37 Dose: 40 mg Documented By: Admin: 05/10/24 08:29 Dose: 40 mg Documented By: STEPHANIE Potassium Chloride (Potassium Chloride Crtab 20 Meq Tabcr) 20 meq PO BID [facility] Stop: 06/08/24 20:59 Last Admin: 05/16/24 08:14 Dose: 20 meq Documented By: Admin: 05/15/24 19:51 Dose: 20 meq Documented By: Admin: 05/15/24 09:24 Dose: 20 meq Documented By: Admin: 05/14/24 21:17 Dose: 20 meq Documented By: Admin: 05/14/24 10:54 Dose: 20 meq Documented By: Admin: 05/13/24 22:11 Dose: 20 meq Documented By: Admin: 05/13/24 09:05 Dose: 20 meq Documented By: Admin: 05/12/24 22:48 Dose: 20 meq Documented By: Admin: 05/12/24 09:25 Dose: 20 meq Documented By: JUAN MANUEL Admin: 05/11/24 20:11 Dose: 20 meq Documented By: Admin: 05/11/24 09:36 Dose: 20 meq Documented By: Admin: 05/10/24 21:02 Dose: 20 meq Documented By: ALICE(2) Admin: 05/10/24 08:34 Dose: 20 meq Documented By: Admin: 05/09/24 20:33 Dose: 20 meq Documented By: CAROLINE Prednisone (Prednisone 20 Mg Tab) 20 mg PO DAILY [facility] Stop: 06/10/24 08:59 Last Admin: 05/16/24 08:23 Dose: 20 mg Documented By: Admin: 05/15/24 08:15 Dose: 20 mg Documented By: Admin: 05/14/24 10:42 Dose: 20 mg Documented By: Admin: 05/13/24 09:00 Dose: 20 mg Documented By: Admin: 05/12/24 09:15 Dose: 20 mg Documented By: JUAN MANUEL Admin: 05/11/24 09:37 Dose: 20 mg Documented By: STEPHANIE Umeclidinium/Vilanterol (Umeclidinium/Vilanterol 62.5/25mcg 7 Puffs/Inhaler) 1 puffs INH DAILY [facility] Stop: 06/10/24 08:59 Last Admin: 05/16/24 08:23 Dose: 1 puffs Documented By: Admin: 05/15/24 08:03 Dose: 1 puffs Documented By: Admin: 05/14/24 10:36 Dose: 1 puffs Documented By: Admin: 05/13/24 09:00 Dose: 1 puffs Documented By: Admin: 05/12/24 09:16 Dose: 1 puffs Documented By: JUAN MANUEL Admin: 05/11/24 09:39 Dose: 1 puffs Documented By: STEPHANIE [place] [address] IN/OBS CONSULT LVL 5,80M Patient Type New History Detailed Exam Detailed Medical Decision Making High Complexity Diagnoses MDD (major depressive disorder), recurrent episode, moderate F33.1 Alcohol use disorder, moderate, dependence F10.20 Cluster B personality disorder F60.89 Methadone maintenance therapy patient F11.20 Opioid use disorder, severe, in sustained remission F11.21
[2024-05-16] MEDS: ESCITALOPRAM OXALATE 10 MG TAB PO SCH (15:48)
--- NOTE | 2024-05-16 16:21 | Hospitalist Progress Note ---
Date of Service May 16, 2024 Assessment & Plan (1) Acute on chronic respiratory failure with hypoxemia: (2) Acute exacerbation of chronic obstructive pulmonary disease: (3) Acute bronchitis: Plan: per previous hospitalist notes with addendum: 58 year old female with history of COPD, Chronic Respiratory Failure on 4L O2 via nasal cannula, PE on Eliquis, Alcoholism, etc presenting with cough, shortness of breath x few days. ACUTE ON CHRONIC HYPOXIC RESPIRATORY FAILURE COPD EXACERBATION, SECONDARY TO ACUTE BRONCHITIS, Strep pneumoniae usually on 4 L NC, presented to hospital; required HFNC CXR no pneumonia Negative for Covid, RSV, Flu MRSA swab -ve sputum culture- Streptococcus pneumoniae Antibiotics changed to Augmentin based on sputum culture results. Continue DuoNeb as needed. Continue Mucinex and prednisolone Wean off oxygen as tolerated Pulmonology on board appreciate recommendation 05/14 repeat CXR: No acute abnormalities and in particular no radiographic evidence of pneumonia. still (+) wheeze Solumedrol 20mg IV ordered in addition to Prednisone 20mg po daily continue Augmentin BID Day 11/02 continue Anoro Ellipta 05/16 wheezing improving trial of Pulmicort to further optimize Alcohol use disorder Alcohol withdrawal drink 2-3 shots of vodka daily last drink 2 days ago Alcohol withdrawal protocol LFTs slight elevated, monitor Will decrease the frequency of Valium to twice a day. 05/14 improving decrease Valium to daily 05/16 (+) anxiety, tremors from Cymbalta withdrawal? Psych consulted recommend Escitalopram 5mg at HS BILATERAL LOWER EXTREMITY EDEMA mild on Lasix PO, no documented history of CHF per my review of records, taken for "leg swelling" Echo in November 19 showing mild LVH, preserved EF continue usual PO Lasix 05/14 (+) BL arm edema, possible mild volume overload additional Lasix 20mg IV today 05/16 continue oral Lasix HYPERTENSION on amlodpine, continue continue Metoprolol HISTORY OF PE on Eliquis, continue HISTORY OF OPIOID DEPENDENCE on Methadone 100mg po daily, confirmed with patient [facility] prescribes Methadone for the patient Verified with Methadone center on 05/10/2024 other past medical history: history of pulmonary hypertension, PFO, history of IVDA in remission, Hx of endocarditis DVT PROPHYLAXIS on Eliquis Full Code Disposition lives at home anticipate d/c home when medically stable uses 4 L o2 via NC at home PT/OT ordered Admission and Anticipated Discharge Date Admission Date: May 09, 2024 Subjective ff up for acute copd exacerbation etc seen standing as drink spilled on her bed feels anxious today, with some tremors breathing improving, less cough no other symptoms Review of Systems Review of Systems: all noted and negative except for above Physical Exam Physical Exam: General- oriented x 3, not in distress, speaks in sentences with no effort or accessory muscle use Eyes- anicteric Neck- no JVD Lungs- faint wheeze BL Heart- normal rate, regular rhythm; no murmurs Abdomen- normal bowel sounds, nondistended, soft, nontender Extremities- mild upper extremity, no pretibial edema, no calf tenderness Neuro- alert, oriented x 3; no gross focal neurologic deficits Skin- warm & dry Results & Data Results & Data Vital Signs (Past 12 Hours) Vital Signs Temp Pulse Resp BP Pulse Ox O2 Del Method O2 Flow Rate 05/16/24 14:53 36.7 C 77 18 151/79 H 90 Nasal Cannula 05/16/24 13:33 20 92 Nasal Cannula 4 05/16/24 10:44 36.6 C 77 18 145/72 H 95 Room Air 05/16/24 08:00 Nasal Cannula 4 05/16/24 06:59 36.6 C 71 20 143/76 H 93 Nasal Cannula 4 all noted and reviewed including below (3) Acute bronchitis Bronchitis organism: unspecified organism Qualified Code(s): J20.9 - Acute bronchitis, unspecified
[2024-05-17] MEDS: LIDOCAINE 5% 1 PATCH TD SCH (12:08)
--- NOTE | 2024-05-17 13:57 | Hospitalist Progress Note ---
Date of Service May 17, 2024 Assessment & Plan (1) Acute on chronic respiratory failure with hypoxemia: (2) Acute exacerbation of chronic obstructive pulmonary disease: (3) Acute bronchitis: Plan: per previous hospitalist notes with addendum: 58 year old female with history of COPD, Chronic Respiratory Failure on 4L O2 via nasal cannula, PE on Eliquis, Alcoholism, etc presenting with cough, shortness of breath x few days. ACUTE ON CHRONIC HYPOXIC RESPIRATORY FAILURE COPD EXACERBATION, SECONDARY TO ACUTE BRONCHITIS, Strep pneumoniae usually on 4 L NC, presented to hospital; required HFNC CXR no pneumonia Negative for Covid, RSV, Flu MRSA swab -ve sputum culture- Streptococcus pneumoniae Antibiotics changed to Augmentin based on sputum culture results. Continue DuoNeb as needed. Continue Mucinex and prednisolone Wean off oxygen as tolerated Pulmonology on board appreciate recommendation 05/14 repeat CXR: No acute abnormalities and in particular no radiographic evidence of pneumonia. still (+) wheeze Solumedrol 20mg IV ordered in addition to Prednisone 20mg po daily continue Augmentin BID Day 11/02 continue Anoro Ellipta 05/15 still has mild wheeze additional Prednisone 20mg po daily 05/17 Wheezing further improved, mostly resolved Continue prednisone 20 mg Alcohol use disorder Alcohol withdrawal drink 2-3 shots of vodka daily last drink 2 days ago Alcohol withdrawal protocol LFTs slight elevated, monitor Will decrease the frequency of Valium to twice a day. 05/14 improving decrease Valium to daily 05/15 patient still having significant tremors resume Valium 5mg BID 05/17 Taper Valium 2.5 mg p.o. twice daily BILATERAL LOWER EXTREMITY EDEMA mild on Lasix PO, no documented history of CHF per my review of records, taken for "leg swelling" Echo in November 19 showing mild LVH, preserved EF continue usual PO Lasix 05/14 (+) BL arm edema, possible mild volume overload additional Lasix 20mg IV today 05/15 Lasix 20mg po added 05/17 Mostly resolved Continue usual Lasix p.o. History of depression Developed rash with Cymbalta, discontinued Psych consulted, replaced with escitalopram 5 mg daily, will increase to 10 mg daily in 2 to 3 days HYPERTENSION on amlodipine, continue continue Metoprolol HISTORY OF PE on Eliquis, continue HISTORY OF OPIOID DEPENDENCE on Methadone 100mg po daily, confirmed with patient [facility] prescribes Methadone for the patient Verified with Methadone center on 05/10/2024 other past medical history: history of pulmonary hypertension, PFO, history of IVDA in remission, Hx of endocarditis DVT PROPHYLAXIS on Eliquis Full Code Disposition lives at home anticipate d/c home tomorrow when medically stable uses 4 L o2 via NC at home PT/OT ordered plan of care discussed with patientin detail and at length all questions answered she is understanding, agreeable, comfortable with the plan of care Admission and Anticipated Discharge Date Admission Date: May 09, 2024 Subjective Following for COPD exacerbation, etc. Resting in bed, comfortable, in good spirits On 4 L of oxygen nasal cannula States she feels better today compared to yesterday Breathing is improving Anxiety, tremors also improving No other new symptom Review of Systems Review of Systems: all noted and negative except for above Physical Exam Physical Exam: General- oriented x 3, not in distress, speaks in sentences with no effort or accessory muscle use Eyes- anicteric Neck- no JVD Lungs- very faint intemittent wheeze BL Heart- normal rate, regular rhythm; no murmurs Abdomen- normal bowel sounds, nondistended, soft, nontender Extremities- no pretibial edema, no calf tenderness minimal arm edema Neuro- alert, oriented x 3; no gross focal neurologic deficits Skin- warm & dry Results & Data Results & Data Vital Signs (Past 12 Hours) Vital Signs Temp Pulse Resp BP BP Pulse Ox O2 Del Method 05/17/24 12:25 Nasal Cannula 05/17/24 11:52 37.3 C 73 18 125/75 93 Room Air 05/17/24 08:31 36.6 C 68 18 146/63 H 98 Room Air 05/17/24 08:14 36.9 C 70 18 147/73 H 91 Room Air 05/17/24 04:30 36.6 C 70 17 144/76 H 95 Nasal Cannula O2 Flow Rate 05/17/24 12:25 4 05/17/24 11:52 05/17/24 08:31 05/17/24 08:14 05/17/24 04:30 5 all noted and reviewed including below (3) Acute bronchitis Bronchitis organism: unspecified organism Qualified Code(s): J20.9 - Acute bronchitis, unspecified
[2024-05-17] MEDS: diazePAM 5 MG TABLET PO SCH (20:27)
[2024-05-17] MEDS: diphenhydrAMINE Capsule 25 MG CAP PO ONE (20:27)
[2024-05-17 22:32] LABS: Adenovirus PCR Not Detected (NotDetected); Bordetella parapertussis PCR Not Detected (NotDetected); Bordetella pertussis PCR Not Detected (NotDetected); Chlamydia pneumoniae PCR Not Detected (NotDetected); Coronavirus 229E PCR Not Detected (NotDetected); Coronavirus CoV-2 (COVID19)PCR Not Detected (NotDetected); Coronavirus HKU1 PCR Not Detected (NotDetected); Coronavirus NL63 PCR Not Detected (NotDetected); Coronavirus OC43PCR Not Detected (NotDetected); Human Metapneumovirus PCR Not Detected (NotDetected); Influenza A PCR Not Detected (NotDetected); Influenza B PCR Not Detected (NotDetected); Mycoplasma pneumoniae PCR Not Detected (NotDetected); Parainfluenza Virus 1 PCR Not Detected (NotDetected); Parainfluenza Virus 2 PCR Not Detected (NotDetected); Parainfluenza Virus 3 PCR Not Detected (NotDetected); Parainfluenza Virus 4 PCR Not Detected (NotDetected); Respiratory Syncytial VirusPCR Not Detected (NotDetected); Rhinovirus/Enterovirus PCR DETECTED (NotDetected)
[2024-05-18] MEDS: THIAMINE HCL 100 MG TAB PO SCH (09:14)
[2024-05-18 09:48] LABS: BUN Creatinine Ratio 22.6 (10-20); Calcium 9.3 mg/dl (8.6-10.3); Creatinine Clr Calc Pharmacy 84.1 ml/min; Magnesium 2.1 mg/dl (1.7-2.4); Potassium 4.4 mmol/L (3.5-5.1)
--- NOTE | 2024-05-18 13:04 | Hospitalist Progress Note ---
Date of Service May 18, 2024 Assessment & Plan (1) Acute on chronic respiratory failure with hypoxemia: (2) Acute exacerbation of chronic obstructive pulmonary disease: (3) Acute bronchitis: Plan: per previous hospitalist notes with addendum: 58 year old female with history of COPD, Chronic Respiratory Failure on 4L O2 via nasal cannula, PE on Eliquis, Alcoholism, etc presenting with cough, shortness of breath x few days. ACUTE ON CHRONIC HYPOXIC RESPIRATORY FAILURE COPD EXACERBATION, SECONDARY TO ACUTE BRONCHITIS, Strep pneumoniae usually on 4 L NC, presented to hospital; required HFNC CXR no pneumonia Negative for Covid, RSV, Flu MRSA swab -ve sputum culture- Streptococcus pneumoniae Antibiotics changed to Augmentin based on sputum culture results. Continue DuoNeb as needed. Continue Mucinex and prednisolone Wean off oxygen as tolerated Pulmonology on board appreciate recommendation 05/14 repeat CXR: No acute abnormalities and in particular no radiographic evidence of pneumonia. still (+) wheeze Solumedrol 20mg IV ordered in addition to Prednisone 20mg po daily continue Augmentin BID Day 11/02 continue Anoro Ellipta 05/15 still has mild wheeze additional Prednisone 20mg po daily 05/17 Wheezing further improved, mostly resolved Continue prednisone 20 mg 05/18 Respiratory status mostly back to baseline Alcohol use disorder Alcohol withdrawal drink 2-3 shots of vodka daily last drink 2 days ago Alcohol withdrawal protocol LFTs slight elevated, monitor Will decrease the frequency of Valium to twice a day. 05/14 improving decrease Valium to daily 05/15 patient still having significant tremors resume Valium 5mg BID 05/17 Taper Valium 2.5 mg p.o. twice daily 05/18 Change Valium to daily starting tomorrow BILATERAL LOWER EXTREMITY EDEMA mild on Lasix PO, no documented history of CHF per my review of records, taken for "leg swelling" Echo in November 19 showing mild LVH, preserved EF continue usual PO Lasix 05/14 (+) BL arm edema, possible mild volume overload additional Lasix 20mg IV today 05/15 Lasix 20mg po added 05/17 Mostly resolved Continue usual Lasix p.o. 05/18 Resolved Continue usual Lasix p.o. History of depression Developed rash with Cymbalta, discontinued Psych consulted, replaced with escitalopram 5 mg daily, will increase to 10 mg daily in 2 to 3 daysIf tolerated HYPERTENSION on amlodipine, continue continue Metoprolol HISTORY OF PE on Eliquis, continue HISTORY OF OPIOID DEPENDENCE on Methadone 100mg po daily, confirmed with patient [facility] prescribes Methadone for the patient Verified with Methadone center on 05/10/2024 other past medical history: history of pulmonary hypertension, PFO, history of IVDA in remission, Hx of endocarditis DVT PROPHYLAXIS on Eliquis Full Code Disposition lives at home anticipate d/c home tomorrow when medically stable uses 4 L o2 via NC at home PT/OT ordered plan of care discussed with patientin detail and at length all questions answered she is understanding, agreeable, comfortable with the plan of care Admission and Anticipated Discharge Date Admission Date: May 09, 2024 Subjective Will follow-up for COPD/the patient, pneumonia, etc. Seen resting in bed, sitting up, on 4 L of O2 Good spirits States she continues to feel improved overall Breathing is better, cough resolved Anxiety and tremors also improving No other new symptoms Review of Systems 2 Review of Systems: all noted and negative except for above Physical Exam Physical Exam: General- oriented x 3, not in distress, speaks in sentences with no effort or accessory muscle use Eyes- anicteric Neck- no JVD Lungs- very faint intermittent wheezing at the bases Heart- normal rate, regular rhythm; no murmurs Abdomen- normal bowel sounds, nondistended, soft, nontender Extremities- no pretibial edema, no calf tenderness No tremors Neuro- alert, oriented x 3; no gross focal neurologic deficits Skin- warm & dry Results & Data Results & Data Vital Signs (Past 12 Hours) Vital Signs Temp Pulse Pulse Resp BP BP Pulse Ox 05/18/24 11:57 05/18/24 11:55 36.7 C 71 18 162/80 H 90 05/18/24 08:00 37.1 C 69 20 135/73 93 05/18/24 04:25 36.8 C 68 18 136/78 95 O2 Del Method O2 Flow Rate 05/18/24 11:57 Nasal Cannula 4 05/18/24 11:55 Nasal Cannula 4 05/18/24 08:00 Nasal Cannula 5 05/18/24 04:25 Nasal Cannula 5.0 all noted and reviewed including below (3) Acute bronchitis Bronchitis organism: unspecified organism Qualified Code(s): J20.9 - Acute bronchitis, unspecified
[2024-05-19 07:12] VITALS: RESP 18
--- NOTE | 2024-05-19 11:37 | Hospitalist Progress Note ---
Date of Service May 19, 2024 Assessment & Plan (1) Acute on chronic respiratory failure with hypoxemia: (2) Acute exacerbation of chronic obstructive pulmonary disease: (3) Acute bronchitis: Plan: (1) Acute on chronic respiratory failure with hypoxemia: (2) Acute exacerbation of chronic obstructive pulmonary disease: (3) Acute bronchitis: Plan: per previous hospitalist notes with addendum: 58 year old female with history of COPD, Chronic Respiratory Failure on 4L O2 via nasal cannula, PE on Eliquis, Alcoholism, etc presenting with cough, shortness of breath x few days. ACUTE ON CHRONIC HYPOXIC RESPIRATORY FAILURE COPD EXACERBATION, SECONDARY TO ACUTE BRONCHITIS, Strep pneumoniae usually on 4 L NC, presented to hospital; required HFNC CXR no pneumonia Negative for Covid, RSV, Flu MRSA swab -ve sputum culture- Streptococcus pneumoniae Antibiotics changed to Augmentin based on sputum culture results. Continue DuoNeb as needed. Continue Mucinex and prednisolone Wean off oxygen as tolerated Pulmonology on board appreciate recommendation 05/14 repeat CXR: No acute abnormalities and in particular no radiographic evidence of pneumonia. still (+) wheeze Solumedrol 20mg IV ordered in addition to Prednisone 20mg po daily continue Augmentin BID Day 11/02 continue Anoro Ellipta 05/15 still has mild wheeze additional Prednisone 20mg po daily 05/17 Wheezing further improved, mostly resolved Continue prednisone 20 mg 05/18 Respiratory status mostly back to baseline 05/19 Back to baseline Strongly smoking cessation Patient verbalized understanding and agreement Alcohol use disorder Alcohol withdrawal drink 2-3 shots of vodka daily last drink 2 days ago Alcohol withdrawal protocol LFTs slight elevated, monitor Will decrease the frequency of Valium to twice a day. 05/14 improving decrease Valium to daily 05/15 patient still having significant tremors resume Valium 5mg BID 05/17 Taper Valium 2.5 mg p.o. twice daily 05/18 Change Valium to daily starting tomorrow 05/19 Resolved Strongly encouraged alcohol cessation Also advised to work with [facility] for alcohol and smoking cessation Patient verbalized understanding and agreement BILATERAL LOWER EXTREMITY EDEMA mild on Lasix PO, no documented history of CHF per my review of records, taken for "leg swelling" Echo in November 19 showing mild LVH, preserved EF continue usual PO Lasix 05/14 (+) BL arm edema, possible mild volume overload additional Lasix 20mg IV today 05/15 Lasix 20mg po added 05/17 Mostly resolved Continue usual Lasix p.o. 05/18 Resolved Continue usual Lasix p.o. 05/19 Continue usual Lasix History of depression Developed rash with Cymbalta, discontinued Psych consulted, replaced with escitalopram 5 mg daily Discharged with escitalopram 5 mg p.o. daily Consider increasing to 10 mg on follow-up with PCP if tolerating at home HYPERTENSION on amlodipine, continue continue Metoprolol HISTORY OF PE on Eliquis, continue HISTORY OF OPIOID DEPENDENCE on Methadone 100mg po daily, confirmed with patient [facility] prescribes Methadone for the patient Verified with Methadone center on 05/10/2024 other past medical history: history of pulmonary hypertension, PFO, history of IVDA in remission, Hx of endocarditis DVT PROPHYLAXIS on Eliquis Full Code Disposition Discharge to home PCP follow-up in 1 week Admission and Anticipated Discharge Date Admission Date: May 09, 2024 Subjective Follow-up for COPD exacerbation, pneumonia, alcohol withdrawal, etc. Seen sitting up in bed, on 4 L of oxygen which is her baseline Not in distress, in good spirits States she continues to improve overall, mostly back to baseline No shortness of breath, cough, fevers or chills, chest pain No other new symptoms She is scared to go home, anxious about the possibility of relapsing to alcohol and smoking, patient reassured Review of Systems Review of Systems: all noted and negative except for above Physical Exam Physical Exam: General- oriented x 3, not in distress, speaks in sentences with no effort or accessory muscle use Eyes- anicteric Neck- no JVD Lungs- clear breath sounds bilaterally, no rales/wheezes Heart- normal rate, regular rhythm; no murmurs Abdomen- normal bowel sounds, nondistended, soft, nontender Extremities- no pretibial edema, no calf tenderness Neuro- alert, oriented x 3; no gross focal neurologic deficits Skin- warm & dry Results & Data Results & Data Vital Signs (Past 12 Hours) Vital Signs Temp Pulse Resp BP Pulse Ox O2 Del Method O2 Flow Rate 05/19/24 09:39 Nasal Cannula 4 05/19/24 07:09 36.7 C 63 18 117/71 97 Room Air all noted and reviewed including below (3) Acute bronchitis Bronchitis organism: unspecified organism Qualified Code(s): J20.9 - Acute bronchitis, unspecified
[2024-05-19 15:55] VITALS: BP 138/82; PULSE 69; TEMP 97.7; O2SAT 92
--- NOTE | 2024-05-19 17:41 | Discharge Summary ---
Discharge Summary Date of Service May 19, 2024 Principal Dx & Hospital Course #1 = Principal Diagnosis (1) Acute on chronic respiratory failure with hypoxemia: (2) Acute exacerbation of chronic obstructive pulmonary disease: (3) Acute bronchitis: 58 year old female with history of COPD, Chronic Respiratory Failure on 4L O2 via nasal cannula, PE on Eliquis, Alcoholism, etc presenting with cough, shortness of breath x few days. ACUTE ON CHRONIC HYPOXIC RESPIRATORY FAILURE COPD EXACERBATION, SECONDARY TO ACUTE BRONCHITIS, Strep pneumoniae usually on 4 L NC, presented to hospital; required HFNC CXR no pneumonia Negative for Covid, RSV, Flu MRSA swab -ve sputum culture- Streptococcus pneumoniae Food Service Team Member consulted given Nebs, IV Solumedrol then Prednisone taper Antibiotics changed to Augmentin based on sputum culture results. continue Anoro Ellipta 05/19 patient improved rather slowly, but wheezing resolved and returned back to baseline Strongly encouraged smoking cessation Patient verbalized understanding and agreement Alcohol use disorder Alcohol withdrawal Prior to admission prior to admission drink 2-3 shots of vodka daily last drink 2 days prior to admission implemented Alcohol withdrawal protocol implemented given Valium taper LFTs slightly elevated, follow-up as an outpatient 05/19 Resolved Strongly encouraged alcohol cessation Also advised to work with [facility] for alcohol and smoking cessation Patient verbalized understanding and agreement BILATERAL LOWER EXTREMITY EDEMA mild on Lasix PO, no documented history of CHF per my review of records, taken for "leg swelling" Echo in November 19 showing mild LVH, preserved EF given IV Lasix as inpatient for increase upper and lower leg edema resolved continue usual PO Lasix History of depression Developed rash with Cymbalta, discontinued Psych consulted, replaced with escitalopram 5 mg daily Discharged with escitalopram 5 mg p.o. daily Consider increasing to 10 mg on follow-up with PCP if tolerating at home HYPERTENSION on amlodipine, continue continue Metoprolol HISTORY OF PE on Eliquis, continue HISTORY OF OPIOID DEPENDENCE on Methadone 100mg po daily, confirmed with patient [facility] prescribes Methadone for the patient Verified with Methadone center on 05/10/2024 other past medical history: history of pulmonary hypertension, PFO, history of IVDA in remission, Hx of endocarditis DVT PROPHYLAXIS on Eliquis Full Code Disposition Discharge to home PCP follow-up in 1 week Notes For Next Care Provider Medication Changes From Visit Escitalopram Admission HPI Per Admitting Provider 58 year old female with history of COPD, Chronic Respiratory Failure on 4L O2 via nasal cannula, PE on Eliquis, Alcoholism, etc presenting with cough, shortness of breath x few days. Patient states that for the past few days, she has been having increased cough- productive of green sputum, shortness of breath. No fever/chills, chest pain. No other symptoms. At the ER, patient was noted wheezing, hypoxic in the 80s, had to be placed on high flow oxygen to maintain O2 sats > 90%. CXR no pneumonia. ABG showing compensated respiratory acidosis. She was given 1 hour long albuterol neb, Decadron 10mg IV, and Ceftriaxone. On exam, patient seen resting in bed, comfortable on high flow O2. States she feels better since arrival. Breathing significantly improved. No active chest pain, headache, dizziness, etc. Patient admits to drinking 2- 3 shots of vodka per day. Last drink was 2 days ago, Admission Exam Per Admitting Provider General- oriented x 3, not in distress, speaks in sentences with no effort or accessory muscle use somewhat weak Head- atraumatic Eyes- PERRL, EOMI, anicteric ENT- oropharynx clear Neck- supple, no JVD, no adenopathy, no thyromegaly; carotids +2/2, no bruits appreciated Lungs-(+) mild BL wheezing, and rhonchi Heart- normal rate, regular rhythm; no murmur, no gallop, no rub appreciated Abdomen- normal bowel sounds, nondistended, soft, nontender, no masses or hepatosplenomegaly Extremities-mild lower extremity edema, no calf tenderness; peripheral pulses intact Neuro- alert, oriented x 3; CN 2-12 grossly intact; motor 5/5 bilaterally;sensation 100% on all extremities; no other gross focal neurologic deficits Skin- warm & dry Discharge Exam General- oriented x 3, not in distress, speaks in sentences with no effort or accessory muscle use Eyes- anicteric Neck- no JVD Lungs- clear breath sounds bilaterally, no rales/wheezes Heart- normal rate, regular rhythm; no murmurs Abdomen- normal bowel sounds, nondistended, soft, nontender Extremities- no pretibial edema, no calf tenderness Neuro- alert, oriented x 3; no gross focal neurologic deficits Skin- warm & dry Updated Medication List Medication Instructions Recorded Confirmed Type amlodipine 10 mg tablet 10 mg PO QAM 05/16/22 05/09/24 History albuterol sulfate 90 mcg/actuation 2 puff inhalation Q6H PRN Cough 09/12/22 05/09/24 History aerosol inhaler apixaban 5 mg tablet (Eliquis) 5 mg PO BID #63 tabs 09/21/22 05/09/24 Rx furosemide 40 mg tablet 40 mg PO QAM #30 tabs 09/21/22 05/09/24 Rx methadone 10 mg/5 mL oral solution 100 mg PO QAM 06/25/23 05/09/24 History nicotine 7 mg/24 hr daily 1 patch transdermal DAILY 06/25/23 05/09/24 History transdermal patch pantoprazole 40 mg tablet,delayed 40 mg PO QAM 06/25/23 05/09/24 History release metoprolol succinate 25 mg 12.5 mg PO BID 08/23/23 05/09/24 History tablet,extended release 24 hr potassium chloride 10 mEq 20 meq PO BID 11/20/23 05/09/24 History tablet,extended release(part/cryst) folic acid 1 mg tablet 1 mg PO QAM 01/21/24 05/09/24 History magnesium oxide 400 mg (241.3 mg 800 mg PO HS 05/09/24 05/09/24 History magnesium) tablet L.acidop,casei,lactis,rham-B.lact,humberto 1 cap PO DAILY 14 days #14 caps 05/19/24 Rx 625 mg (10 billion cell) capsule (Advanced Probiotic) escitalopram oxalate 10 mg tablet 5 mg (1/2 x 10 mg) PO QAM 30 days 05/19/24 Rx #15 tabs Hospital Stay Data Consultations 05/09/24 13:04 ED Decision to Admit Stat 05/09/24 16:41 Consult Pulmonology Routine 05/16/24 11:42 Consult Psychiatry Routine Diagnostic Imagining Performed 05/16/24 11:46 US abdomen ltd ascites Routine Pending Results Patient Have Any Pending Studies at Discharge: No Discharge Instructions Given to Patient (Per Discharging Provider) PLEASE REFER TO YOUR NEW MEDICATION LIST AND FOLLOW INSTRUCTIONS CAREFULLY. YOUR NEW MEDICATIONS INCLUDE: Escitalopram-antidepressant PLEASE CALL YOUR PRIMARY CARE PHYSICIAN OR RETURN TO THE ER IF WITH WORSENING OF SYMPTOMS, INCLUDING Shortness of breath, cough, sputum production, fevers or chills, chest pain, Worsening anxiety, depression, etc. FOLLOW UP WITH PRIMARY CARE PHYSICIAN OUTLINED ABOVE.
== END 2024-05-19 18:01 | disposition home or self-care (01) | DRG 189 ==
LOC: ED 10:11 → SUATTDRO 13:55 → 2S 13:55 → 3E 05-18 17:56

== ENCOUNTER 2024-08-30 22:26 | Inpatient (IN) ==
--- OUTSIDE RECORDS SUMMARY | 2024-08-30 22:32 | External Medical Summary | Summary of Care ---
Author Name Unknown Organization [facility] Address [address] [place] [address] Phone [phone] Care Team Providers Care Training Assistant Name Role Phone Roseann Plummer MD Primary Care Provider Reason for Visit * Reason Onset Date Comments Medication Refill 08/17/2024 Encounter Details Date Type Department Care Team ([facility] st Contact Info) Description 08/17/2024 Refill Family Practice [facility] [address] [place] [id number] Roseann Plummer MD [address] [place] [id number] Situational anxiety Allergies Active Allergy Reactions Criticality Noted Date Comments Buspirone Rash 11/01/2022 documented as of this encounter (statuses as of 08/18/2024) Medications methADONE 10 MG Tablet Take 1 Tablet by mouth once. 100mg daily Active Bisacodyl 5 MG Oral Tablet Delayed Release (Dulcolax) Take 1 Tablet by mouth daily as needed for Constipation. 30 Tablet 3 Active oxygen IN GAS Use 3 L/min(Oxygen) as directed continuous. Active Albuterol Sulfate 0.63 MG/3ML Inhalation Nebulization Solution (Accuneb) Inhale 1 Vial via nebulizer every 6 hours as needed for Wheezing or Shortness of Breath. 360 mL 4 Active Beet Root 500 MG Oral Capsule Take by mouth. Active Multivitamins Oral Capsule Take 1 Capsule by mouth in the morning. Active Nicotine 14 MG/24HR Transdermal Patch 24 Hour (Nicoderm CQ)Indications:T obacco use disorder Place 1 Patch over 24 hours topically on the skin daily. 28 Patch 5 4 Active DULoxetine HCl 30 MG Oral Capsule Delayed Release Particles (Cymbalta)Indica tions:Mood disorder (HCC) Take 1 Capsule by mouth in the morning. Every morning.. 90 Capsule 3 4 Active Metoprolol Succinate ER 25 MG Oral Tablet Extended Release 24 Hour (toPROL XL)Indications:H TN, goal below 130/80 take 1 tablet by mouth twice a day 180 Tablet 2 4 Active amLODIPine Besylate 10 MG Oral Tablet (Norvasc)Indicat ions:HTN, goal below 130/80 Take 1 Tablet by mouth in the morning. In the morning.. 90 Tablet 3 4 Active Furosemide 40 MG Oral Tablet (Lasix) Take 1 Tablet by mouth in the morning. In the morning.. 90 Tablet 1 4 Active Clobetasol Propionate 0.05 % External Cream (Temovate)Indica tions:Psoriasis vulgaris Apply to rash on buttocks and thighs twice daily for 2 weeks 60 g 5 4 Active oxyCODONE-Acetam inophen 5-325 MG Oral Tablet (Percocet) Take 1 Tablet by mouth every 4 hours as needed for Pain, Moderate. 15 Tablet 4 Active oxyCODONE-Acetam inophen 5-325 MG Oral Tablet (Percocet) Take 1 Tablet by mouth every 4 hours as needed for Pain, Moderate. 15 Tablet 03/16/2024 12:51 PM EDT 4 Active Ferrous Gluconate 324 (38 Fe) MG Oral Tablet Take 1 Tablet by mouth daily with breakfast. 90 Tablet 1 4 Active Pantoprazole Sodium 40 MG Oral Tablet Delayed Release (Protonix) Take 1 Tablet by mouth in the morning. 90 Tablet 1 4 Active Albuterol Sulfate HFA 108 (90 Base) MCG/ACT Inhalation Aerosol SolutionIndicati ons:Cough INHALE 2 PUFFS BY MOUTH EVERY 6 HOURS NEEDED FOR COUGH 18 g 5 4 Active Eliquis 5 MG Oral Tablet (Apixaban) TAKE ONE TABLET BY MOUTH EVERY MORNING AND TAKE ONE TABLET BY MOUTH BEFORE BEDTIME 180 Tablet 1 4 Active Escitalopram Oxalate 10 MG Oral Tablet (Lexapro) Take 1 Tablet by mouth in the morning. Active Potassium Chloride ER 20 MEQ Oral Tablet Extended ReleaseIndicatio ns:Hypokalemia Take 1 Tablet by mouth 2 times a day. 180 Tablet 2 4 Active Magnesium Oxide 400 MG Oral TabletIndication s:Hypomagnesemia Take 2 Tablets by mouth at bedtime. 180 Tablet 3 4 Active Nicotine 7 MG/24HR Transdermal Patch 24 Hour (Nicoderm CQ)Indications:T obacco use disorder APPLY 1 PATCH TOPICALLY DAILY 28 Patch 5 4 Active Folic Acid 1 MG Oral Tablet Take 1 Tablet by mouth in the morning. 30 Tablet 5 4 Active diazePAM 5 MG Oral Tablet (Valium)Indicati ons:Situational anxiety Take 1 tab by mouth 45-[address] scan. Do not mix with alcohol. Do not drive. 2 Tablet 5 Active diazePAM 5 MG Oral Tablet (Valium)Indicati ons:Situational anxiety Take 1 tab by mouth 45-[address] scan. Do not mix with alcohol. Do not drive. 2 Tablet 5 08/17/19 25 Discontin ued(Refil l) Hospital, Clinic, or Other Facility Administered Medication Ordered Dose Route Frequency Start Date End Date Status Albuterol Sulfate (Proventil) (2.5 MG/3ML) 0.083% inhalation solution 2.5 mgIndications:COPD, mild (HCC) 2.5 mg NEBULIZER PRN 10/11/2022 Active documented as of this encounter (statuses as of 08/18/2024) Active Problems Problem Noted Date Diagnosed Date Cyst of kidney, acquired 12/16/2023 Restless legs syndrome (RLS) 12/16/2023 Opioid dependence, uncomplicated 09/06/2023 Alcohol dependence, uncomplicated 09/06/2023 Dependence on supplemental oxygen 03/01/2023 Pulmonary emboli 02/09/2023 KARLA (acute kidney injury) 05/25/2022 Anemia 05/25/2022 Nodule of right lung 05/25/2022 Overview (06/13/2023): Multiple small lung nodules. 05/2023, stable. Recommend repeat 6-12 months. Referred to [facility] program. Medical home patient encounter 05/23/2022 COPD, group C, by GOLD 2017 classification [...] as of this encounter (statuses as of 08/18/2024) Resolved Problems Problem Noted Date Diagnosed Date Resolved Date Chronic kidney disease, stage 3a 10/08/2022 03/01/2023 Overview: Per CKD protocol Substance abuse 05/25/2022 03/01/2023 Thrombocytopenia 05/25/2022 09/06/2023 Food insecurity 05/07/2022 05/14/2024 Overview: Per [facility] Protocol Food insecurity 03/06/2021 01/11/2022 Overview: Per [facility] Protocol documented as of this encounter (statuses as of 08/18/2024) Immunizations Name Administration Dates Next Due Pneumococcal [...] Answer Date Recorded PHQ Adult Total Score 0 05/20/2024 Hunger Vital Sign Answer Date Recorded Within the past 12 months, y ou worried that your food would run out before you got the money to buy more. Never true 05/20/20 24 Within the past 12 months, t he food you bought just didn't last and you didn't have money to get more. Never true 05/20/2024 Childcare Answer Date Recorded Do you feel overwhelmed with taking care of a child, family member or friend? No 05/20/2024 Does your family need help f inding childcare? (Household - for ages 0-17 years) Not on file 05/20/2024 Clothing Answer Date Recorded Have you been unable to get clothing when it was really needed? No 05/20/2024 Is your family able to get c lothes or diapers when needed? (Household - for ages 0-17 years) Not on file 05/20/2024 Personal Safety Answer Date Recorded Do you feel unsafe or have concerns for your saf ety? No 05/20/2024 Do you have concerns for you r family's safety? (Household - for ages 0-17 years) Not on file 05/20/2024 Utilities Answer Date Recorded Do you have trouble paying y our heating, water, or electric bill? No 05/20/2024 Is your family able to pay t he heat, water, or electric bill? (Household - for ages 0-17 years) Not on file 05/20/2024 Does your family have access to good internet? (Household - for ages 0-17 years) Not on file 05/20/2024 Employment Status Answer Date Recorded Are you unemployed or without regular income? No 05/20/2024 Does the household have a re gular source of income? (Household - for ages 0-17 years) Not on file 05/20/2024 Social Connections Answer Date Recorded How often do you feel lonely or isolated from th ose around you? Never 05/20/2024 Financial Resource Strain Answer Date R ecorded Do you have any trouble payi ng for your medications, or do you think you might in the future? No 05/20/2024 Does your family have troubl e paying for medicine? (Household - for ages 0-17 years) Not on file 05/20/2024 Transportation Needs Answer Date Record ed READ ONLY Do you have troubl e getting a ride to medical visits or work? Sometimes True 05/20/2024 Does your family have a hard time getting a ride to doctors visits? (Household - for ages 0-17 years) Not on file 05/20/2024 Has lack of transportation k ept you from medical appointments, meetings, work, or from getting things needed for daily living? Check all that apply. No 024 Do you (or your family) have trouble finding or paying for a ride (transportation)? (Household - for ages 0-17 years) Not on file 05/20/2024 Housing Stability Answer Date Recorded Do you currently live in a s helter or have no steady place to sleep at night? No 05/20/2024 READ ONLY Do you think you a re at risk of becoming homeless? No 05/20/2024 Does your family worry about paying for your home or becoming homeless? (Household - for ages 0-17 years) Not on file 1 Are you homeless or worried that you might be in the future? No 05/20/2024 Are you (or your family) irina eless or worried that you might be in the future? (Household - for ages 0-17 years) Not on file Food Insecurity Answer Date Recorded Do you need food for this week? No 05/20/2024 Are you able to get enough f ood for your family? (Household - for ages 0-17 years) Not on file 05/20/2024 Does your family need food t his week? (Household - for ages 0-17 years) Not on file 05/20/2024 Do you always have enough fo od for your family? (Household - for ages 0-17 years) Not on file 05/20/2024 Comments No Sex and Gender Information Value Date Recorded Sex Assigned at Female 10/25/2022 12:12 AM EDT Legal Sex Female 9:26 AM EDT Gender Identity Female 10/25/2022 12:12 AM EDT Sexual Orientation Choose not to disclose 2022 12:12 AM EDT documented as of this encounter Functional Status * Are you deaf or do you have serious difficulty hearing? Answer Date of Assessment Author No 12/05/2020 2:35 PM EDT Marcela Rodriguez RN * Are you blind or do you have serious difficulty seeing, even when wearing glasses? Answer Date of Assessment Author No 12/05/2020 2:35 PM EDT Marcela Rodriguez RN * Do you have serious difficulty walking or climbing stairs? (5 years old or older) Answer Date of Assessment Author No 12/06/2020 9:00 AM EDT Mark Cee RN * Do you have difficulty dressing or bathing? (5 years old or older) Answer Date of Assessment Author No 12/05/2020 2:35 PM EDT Marcela Rodriguez RN * Because of a physical, mental, or emotional condition, do you have difficulty doing errands alone such as visiting a doctors office or shopping? (15 years old or older) Answer Date of Assessment Author No 12/05/2020 2:35 PM EDT Marcela Rodriguez RN documented as of this encounter Mental Status * Because of a physical, mental, or emotional condition, do you have serious difficulty concentrating, remembering, or making decisions? (5 years old or older) Answer Entry Date Author No 12/05/2020 2:35 PM EDT Marcela Rodriguez RN documented in this encounter Miscellaneous Notes * Telephone Encounter - Roseann Plummer MD - 08/18/2024 9:56 AM EST Signed Prescriptions: Disp Refills diazePAM 5 MG Oral Tablet (Valium) 2 Tabl*0 Sig: Take 1 tab by mouth 45-[address] scan[address] Do not mix with alcohol. Do not drive.Authorizing Provider: ROSEANN PLUMMER * Telephone Encounter - Roseann Plummer MD - 08/18/2024 9:56 AM EST I have reviewed the patient's controlled substance dispensing history in the Prescription Drug Monitoring Program in compliance with the [facility] regulations before prescribing a controlled substance. * Telephone Encounter - Haley López [facility] - 08/17/2024 5:29 PM EST Pending Prescriptions: Disp Refills diazePAM 5 MG Oral Tablet (Valium) 2 Tabl*0 Sig: Take 1 tab by mouth 45-[address] Do not mix with alcohol. Do not drive. * Telephone Encounter - Haley López [facility] - 08/17/2024 5:27 PM EST I have reviewed the patients controlled substance dispensing history in the Prescription Drug Monitoring Program in compliance with the [facility] regulations before prescribing a controlled substance. PDMP checked on 08/17/2024. Pending Prescriptions: Disp Refills diazePAM 5 MG Oral Tablet (Valium) 2 Tabl*0 Sig: Take 1 tab by mouth 45-[address] scan[address] Do not mix with alcohol. Do not drive. Last Visit: 02/21/2024 (in office), Visit date not found (telemedicine) Next Visit: 12/04/2024 Date medication was last filled: 08/05 Date medication is due for refill: 08/07 Pharmacy: [facility] [id number] Is this request for a controlled substance? Yes and Urine Drug Screen Not completed Toxicology results: No results found for this or any previous visit. Please approve if appropriate. Thanks, Paran Woloski, PharmD Clinical Pharmacist [facility] ([facility] [phone] 08/17/2024,5:29 PM documented in this encounter Plan of Treatment Upcoming Encounters Date Type Department Care Team (Late st Contact Info) Description 08/28/2024 11:30 AM EST Appointment Radiology, [facility] [address] [place] [address] 12/04/2024 8:00 AM EDT Office Visit Family [facility] [address] [place] [address] Roseann Plummer MD [address] [place] [address] Health Maintenance Due Date Last Done Comments Alpha-1 Antitrypsin 1985 Pap Smear 1988 Cervical Cancer Screening 1997 HPV/Co-Test 1997 Cologuard 2012 Colonoscopy 2012 Sigmoidoscopy 2012 Mammogram 02/28/2021 02/29/2020 *ADVANCE DIRECTIVE NOT ON FILE 10/14/2021 Influenza Vaccine (FLU shot) (#1) 2024 04/28/2020, 04/28/2020 O2 ASSESSMENT COMPLETED IN PAST YEAR FOR COPD 02/20/2025 02/21/2024 Albumin/Creatinine Ratio 04/26/2025 04/26/2022 Depression Monitoring 05/20/2025 05/20/2024 Colorectal Cancer Screening 05/26/2025 Fecal Occult Blood Test 05/26/2025 05/26/20 24, 05/26/2024, 04/25/2023, Additional history exists GFR 07/17/2025 07/17/2024, 05/29, 04/10/2024, Additional history exists Lipid Panel 11/25/2025 11/25/2020, 02/29/2020 Diabetes Screening [...] this encounter Medical Devices Implanted Type Area Aoc Director Combat Operations Officer Device Identifier Shelf Expiration Date Model / Serial / Lot Shell Acet Trident Ii 50mm - [id number] Implanted:Qty: 1 on 12/05/2020 by Rodolfo Park DO at OR [facility] Right: Hip KANDICE : ORTHOPAEDICS 09/04/2024 702-04-50D / / [id number] Trident Acetabular X3 0 36 D - [id number] Implanted:Qty: 1 on 12/05/2020 by Rodolfo Park DO at OR [facility] Right: Hip KANDICE : ORTHOPAEDICS 09/14/2025 723-00-36D / / [id number] Hip Hd Perry Alonso Md D 36/ 25 - [id number] Implanted:Qty: 1 on 12/05/2020 by Rodolfo Park DO at OR [facility] Right: Hip KANDICE : ORTHOPAEDICS 10/03/2025 6570-0-436 / / [id number] Accolade Ii 127 Deg Sz 4 - [id number] Implanted:Qty: 1 on 12/05/2020 by Rodolfo Park DO at OR [facility] Right: Hip KANDICE : ORTHOPAEDICS 11/07/2025 [id number] / / [id number] documented as of this encounter Visit Diagnoses [...] patient have Health Care Power of Supervisor Steel Division? Yes, not currently available Care Teams Training Assistant Relationship Specialty Start Date End Date Roseann Plummer MD [address] [place] [phone] PCP - General Internal Medicine 11/05/22 documented as of this encounter
--- OUTSIDE RECORDS SUMMARY | 2024-08-30 22:32 | External Medical Summary | Summary of Care ---
Author Name Unknown Organization [facility] Address [address] [place] [address] Phone [phone] Care Team Providers Care Vp Security Name Role Phone Roseann Plummer MD Primary Care Provider Encounter Details Date Type Department Care Team (Late st Contact Info) Description 08/17/2024 Population Health External Data Unspecified Department Allergies Active Allergy Reactions Criticality Noted Date Comments Buspirone Rash 11/01/2022 documented as of this encounter (statuses as of 08/17/2024) Medications methADONE 10 MG Tablet Take 1 [...] 500 MG Oral Capsule Take by mouth. Ac tive Multivitamins Oral Capsule Take 1 Capsule by mouth in the morning. Active Nicotine 14 MG/24HR Transdermal Patch 24 Hour (Nicoderm CQ)Indications:To bacco use disorder Place 1 Patch over 24 hours topically on the skin daily. 28 Patch 5 4 Active DULoxetine HCl 30 MG Oral Capsule Delayed Release Particles (Cymbalta)Indicat ions:Mood disorder (HCC) Take 1 Capsule by mouth in the morning. Every morning.. 90 Capsule 3 4 Active Metoprolol Succinate ER 25 MG Oral Tablet Extended Release 24 Hour (toPROL XL)Indications:HT N, goal below 130/80 take 1 tablet by mouth twice a day 180 Tablet 2 4 Active amLODIPine Besylate 10 MG Oral Tablet (Norvasc)Indicati ons:HTN, goal below 130/80 Take 1 Tablet by [...] 2 weeks 60 g 5 4 Active oxyCODONE-Acetami nophen 5-325 MG Oral Tablet (Percocet) Take 1 Tablet by mouth every 4 hours as needed for Pain, Moderate. 15 Tablet 4 Active oxyCODONE-Acetami nophen 5-325 MG Oral Tablet (Percocet) Take 1 [...] Chloride ER 20 MEQ Oral Tablet Extended ReleaseIndication s:Hypokalemia Take 1 Tablet by mouth 2 times a day. 180 Tablet 2 4 Active Magnesium Oxide 400 MG Oral TabletIndications :Hypomagnesemia Take 2 Tablets by mouth at bedtime. 180 Tablet 3 4 Active Nicotine 7 MG/24HR Transdermal Patch 24 Hour (Nicoderm CQ)Indications:To bacco use disorder APPLY 1 PATCH TOPICALLY DAILY 28 Patch 5 4 Active Folic Acid 1 MG Oral Tablet Take 1 Tablet by mouth in the morning. 30 Tablet 5 4 Active diazePAM 5 MG Oral Tablet (Valium)Indicatio ns:Situational anxiety Take 1 tab by mouth 45-[address] scan[address] Do not mix with alcohol. Do not drive. 2 Tablet 5 Active Hospital, Clinic, or Other Facility Administered Medication Ordered Dose Route Frequency Start Date End Date Status Albuterol Sulfate (Proventil) (2.5 MG/3ML) 0.083% inhalation solution 2.5 mgIndications:COPD, mild (HCC) 2.5 mg NEBULIZER PRN 10/11/2022 Active documented as of this encounter (statuses as of 08/17/2024) Active Problems Problem Noted Date Diagnosed Date [...] as of this encounter (statuses as of 08/17/2024) Resolved Problems Problem Noted Date Diagnosed Date Resolved Date Chronic kidney disease, stage 3a 10/08/2022 03/01/2023 Overview: Per CKD protocol Substance abuse 05/25/2022 03/01/2023 Thrombocytopenia 05/25/2022 09/06/2023 Food insecurity 05/07/2022 05/14/2024 Overview: Per [facility] Protocol Food insecurity 03/06/2021 01/11/2022 Overview: Per [facility] Protocol documented as of this encounter (statuses as of 08/17/2024) Immunizations Name Administration Dates Next Due Pneumococcal [...] No 05/20/2024 Does the household have a [facility] source of income? (Household - for ages [...] Marcela Rodriguez RN documented in this encounter Plan of Treatment Upcoming Encounters Date Type Department Care Team (Late st Contact Info) Description 08/28/2024 11:30 AM EST Appointment Radiology, [address] [address] 12/04/2024 8:00 AM EDT Office Visit Family Practice [facility] [address] [address] Roseann Plummer MD [address] [address] Health Maintenance Due Date Last Done Comments [...] encounter Medical Devices Implanted Type Area Bridge Maintenance Worker Device Identifier Shelf Expiration Date Model / Serial / Lot Shell Acet Trident Ii 50mm - [id number] Implanted:Qty: 1 on 12/05/2020 by Rodolfo Park DO at OR [facility] Right: Hip KANDICE : ORTHOPAEDICS 09/04/2024 702-04-50D / / [id number] Trident Acetabular X3 0 36 D - [id number] Implanted:Qty: 1 on 12/05/2020 by Rodolfo Park DO at OR [facility] Right: Hip KANDICE : ORTHOPAEDICS 09/14/2025 723-00-36D / / [id number] Hip Hd Perry Hummel 36/ 25 - [id number] Implanted:Qty: 1 on 12/05/2020 by Rodolfo Park DO at OR [facility] Right: Hip KANDICE : ORTHOPAEDICS 10/03/2025 6570-0-436 / / [id number] Accolade Ii 127 Deg Sz 4 - [id number] Implanted:Qty: 1 on 12/05/2020 by Rodolfo Park DO at OR [facility] Right: Hip KANDICE : ORTHOPAEDICS 11/07/2025 [id number] / / [id number] documented as of this encounter Advance Directives [...] the patient have Health Care Power of Community Arts Worker? Yes, not currently available Care Teams Vp Security Relationship Specialty Start Date End Date Roseann Plummer MD [address] [place] [phone] PCP - General Internal Medicine 11/05/22 documented as of this encounter
--- OUTSIDE RECORDS SUMMARY | 2024-08-30 22:33 | External Medical Summary | Summary of Care ---
Author Name Unknown Organization [facility] Address [address] [place] [address] Phone [phone] Care Team Providers Care Field Care Coordinator Name Role Phone Roseann Plummer MD Primary Care Provider Reason for Visit * Reason Onset Date Comments Medication Problem 07/02/2024 Encounter Details Date Type Department Care Team ([facility] st Contact Info) Description 07/02/2024 Telephone Pulmonary Medicine, [facility] 132 [facility] [place] [address] Huan Branham MD [address] [facility] [address] Medication Problem Allergies Active Allergy Reactions Criticality Noted Date Comments Buspirone Rash 11/01/2022 documented as of this encounter (statuses as of 07/03/2024) Medications methADONE 10 MG Tablet Take 1 [...] TOPICALLY DAILY 28 Patch 5 4 Active Nicotine 14 MG/24HR Transdermal Patch 24 [...] the morning.. 90 Tablet 1 4 Active Folic Acid 1 MG Oral Tablet Take 1 Tablet by mouth in the morning. 30 Tablet 11 4 Active Clobetasol Propionate 0.05 % External [...] at bedtime. 180 Tablet 3 4 Active diazePAM 5 MG Oral Tablet (Valium)Indicatio ns:Situational anxiety Take 1 tab by mouth 45-[address] scan. Do not mix with alcohol. Do not drive. 2 Tablet 4 Active Hospital, Clinic, or Other Facility Administered Medication Ordered Dose Route Frequency Start Date End Date Status Albuterol Sulfate (Proventil) (2.5 MG/3ML) 0.083% inhalation solution 2.5 mgIndications:COPD, mild (HCC) 2.5 mg NEBULIZER PRN 10/11/2022 Active documented as of this encounter (statuses as of 07/03/2024) Active Problems Problem Noted Date Diagnosed Date [...] as of this encounter (statuses as of 07/03/2024) Resolved Problems Problem Noted Date Diagnosed Date Resolved Date Chronic kidney disease, stage 3a 10/08/2022 03/01/2023 Overview: Per CKD protocol Substance abuse 05/25/2022 03/01/2023 Thrombocytopenia 05/25/2022 09/06/2023 Food insecurity 05/07/2022 05/14/2024 Overview: Per [facility] Protocol Food insecurity 03/06/2021 01/11/2022 Overview: Per [facility] Protocol documented as of this encounter (statuses as of 07/03/2024) Immunizations Name Administration Dates Next Due Pneumococcal [...] 05/20/2024 Does the household have a re lar [...] Author No 12/05/2020 2:35 PM EDT Marcela Rodriguez, RN * Are you blind or do [...] Care Team (Late st Contact Info) Description 07/06/2024 12:30 PM EST Imaging Radiology [facility]st [facility] 132 [facility] [place] [address] 07/08/2024 11:40 AM EST Office Visit Family Practice [facility] 132 [facility] [place] [address] Roseann Plummer MD 132 [facility] [place] [address] 07/09/2024 2:00 PM EST Office Visit Pulmonary Medicine, [facility] 132 [facility] [place] [address] Huan Branham MD [address] [place] [address] Health Maintenance Due Date Last Done Comments [...] 24, 05/26/2024, 04/25/2023, Additional history exists GFR 06/15/2025 06/15/2024, 03/29, 03/04/2024, Additional history exists Lipid Panel 11/25/2025 11/25/2020, [...] this encounter Medical Devices Implanted Type Area Minute Clerk Device Identifier Shelf Expiration Date Model / Serial / Lot Shell Acet Trident Ii 50mm - [id number] Implanted:Qty: 1 on 12/05/2020 by Rodolfo Park DO at OR [facility] Right: Hip KANDICE : ORTHOPAEDICS 09/04/2024 702-04-50D / / [id number] Trident Acetabular X3 0 36 D - [id number] Implanted:Qty: 1 on 12/05/2020 by Rodolfo Park DO at OR [facility] Right: Hip KANDICE : ORTHOPAEDICS 09/14/2025 723-00-36D / / [id number] Hip Elpidio Hummel - [id number] Implanted:Qty: 1 on 12/05/2020 by Rodolfo Park, DO at OR [facility] Right: Hip KANDICE : ORTHOPAEDICS 10/03/2025 6570-0-436 / / [id number] Accolade Ii 127 Deg Sz 4 - [id number] Implanted:Qty: 1 on 12/05/2020 by Rodolfo Park, DO at OR [facility] Right: Hip KANDICE : ORTHOPAEDICS 11/07/2025 [id number] / / [id number] documented as of this encounter Advance Directives [...] patient have Health Care Power of Utility Spray Operator? Yes, not currently available Care Teams Field Care Coordinator Relationship Specialty Start Date End Date Roseann Plummer MD [address] [place] [address] PCP - General Internal Medicine 11/05/22 documented as of this encounter
--- OUTSIDE RECORDS SUMMARY | 2024-08-30 22:33 | External Medical Summary | Summary of Care ---
Author Name Unknown Organization [facility] Address [address] [place] [address] Phone [phone] Care Team Providers Care Director Writing Name Role Phone Roseann Plummer MD Primary Care Provider Reason for Visit * Reason Onset Date Comments Information 08/07/[address] PE study again, after 6 tries we were not able to find a usable vein on this pt. Encounter Details Date Type Department Care Team (Late st Contact Info) Description 08/07/2024 Telephone Radiology [address] [address] Dionne Bardales, RT (R) Information (Tried to scan CT PE study aga... Allergies Active Allergy Reactions Criticality Noted Date Comments Buspirone Rash 11/01/2022 documented as of this encounter (statuses as of 08/10/2024) Medications methADONE 10 MG Tablet Take 1 [...] as of this encounter (statuses as of 08/10/2024) Active Problems Problem Noted Date Diagnosed Date [...] as of this encounter (statuses as of 08/10/2024) Resolved Problems Problem Noted Date Diagnosed Date Resolved Date Chronic kidney disease, stage 3a 10/08/2022 03/01/2023 Overview: Per CKD protocol Substance abuse 05/25/2022 03/01/2023 Thrombocytopenia 05/25/2022 09/06/2023 Food insecurity 05/07/2022 05/14/2024 Overview: Per [facility] Protocol Food insecurity 03/06/2021 01/11/2022 Overview: Per [facility] Protocol documented as of this encounter (statuses as of 08/10/2024) Immunizations Name Administration Dates Next Due Pneumococcal [...] Miscellaneous Notes * Telephone Encounter - Raven Kirk LPN - 08/10/2024 9:55 AM EST Per pt is ok to have at either [place] or [facility]. * Telephone Encounter - Huan Branham MD - 08/10/2024 8:31 AM EST We would recommend scheduling the CT PE protocol study at [facility]. Pleasereach out to patient for rescheduling if acceptable. Please provide a heads up to [facility] CT chest regarding IV access. * Telephone Encounter - Raven Kirk LPN - 08/07/2024 3:23 PM EST Per would like to have the pt set up in [place]. Per this study is not urgent Tried calling the pt and had to leave a message * Telephone Encounter - Raven Kirk LPN - 08/07/2024 3:04 PM EST [place] text has been sent to to review. * Telephone Encounter - Dionne Bardales RT (R) - 08/07/2024 1:44 PM EST We were unable to find a vein on this pt. After 6 attempts and 45 mins we called it quits. Pt will need to be scanned somewhere they have a team in place to get find veins on these difficultpt's. WE do not have that here at the [facility] office. Maybe a Nuc VQ scan is a another way to go for this pt? Thanks, Dionne VALIENTE GW documented in this encounter Plan of Treatment Upcoming Encounters Date Type Department Care Team (Late st Contact Info) Description 12/04/2024 8:00 AM EDT Office Visit Family Practice [facility] [address] [address] Roseann Plummer MD [address] [place] [address] Health Maintenance Due Date Last Done Comments [...] this encounter Medical Devices Implanted Type Area Post Manager Device Identifier Shelf Expiration Date Model / Serial / Lot Shell Acet Trident Ii 50mm - [id number] Implanted:Qty: 1 on 12/05/2020 by Rodolfo Park DO at OR [facility] Right: Hip KANDICE : ORTHOPAEDICS 09/04/2024 702-04-50D / / [id number] Trident Acetabular X3 0 36 D - [id number] Implanted:Qty: 1 on 12/05/2020 by Rodolfo Park DO at OR [facility] Right: Hip KANDICE : ORTHOPAEDICS 09/14/2025 723-00-36D / / [id number] Hip Hd Perry Hummel 36/ 25 - [id number] Implanted:Qty: 1 on 12/05/2020 by Rodolfo Park DO at OR [facility] Right: Hip KANDICE : ORTHOPAEDICS 10/03/2025 6570-0-436 / / [id number] Accolade Ii 127 Deg Sz 4 - [id number] Implanted:Qty: 1 on 12/05/2020 by Rodolfo Park, at OR [facility] Right: Hip KANDICE : ORTHOPAEDICS 11/07/2025 [id number] / / [id number] documented as of this encounter Advance Directives [...] the patient have Health Care Power of Art Educator? Yes, not currently available Care Teams Director Writing Relationship Specialty Start Date End Date Roseann Plummer MD [address] [place] [address] PCP - General Internal Medicine 11/05/22 documented as of this encounter
--- OUTSIDE RECORDS SUMMARY | 2024-08-30 22:33 | External Medical Summary | Summary of Care ---
Author Name Unknown Organization [facility] Address [address] [place] [address] Phone [phone] Care Team Providers Care Network Pricing Consultant Name Role Phone Roseann Plummer MD Primary Care Provider Reason for Visit * Reason Onset Date Comments Medication Refill 08/03/2024 Encounter Details Date Type Department Care Team ([facility] st Contact Info) Description 08/03/2024 Refill Family Practice [facility] [address] [employer] [address] [place] [address] Roseann Plummer MD [address] [place] [address] Situational anxiety Allergies Active Allergy Reactions Criticality Noted Date Comments Buspirone Rash 11/01/2022 documented as of this encounter (statuses as of 08/04/2024) Medications methADONE 10 MG Tablet Take 1 [...] alcohol. Do not drive. 2 Tablet 4 08/03/19 25 Discontin ued(Refil l) Hospital, Clinic, or Other Facility Administered Medication Ordered Dose Route Frequency Start Date End Date Status Albuterol Sulfate (Proventil) (2.5 MG/3ML) 0.083% inhalation solution 2.5 mgIndications:COPD, mild (HCC) 2.5 mg NEBULIZER PRN 10/11/2022 Active documented as of this encounter (statuses as of 08/04/2024) Active Problems Problem Noted Date Diagnosed Date [...] as of this encounter (statuses as of 08/04/2024) Resolved Problems Problem Noted Date Diagnosed Date Resolved Date Chronic kidney disease, stage 3a 10/08/2022 03/01/2023 Overview: Per CKD protocol Substance abuse 05/25/2022 03/01/2023 Thrombocytopenia 05/25/2022 09/06/2023 Food insecurity 05/07/2022 05/14/2024 Overview: Per [facility] Protocol Food insecurity 03/06/2021 01/11/2022 Overview: Per [facility] Protocol documented as of this encounter (statuses as of 08/04/2024) Immunizations Name Administration Dates Next Due Pneumococcal [...] Telephone Encounter - Roseann Plummer MD - 08/04/2024 8:34 PM EST Signed Prescriptions: Disp Refills diazePAM 5 MG Oral Tablet (Valium) 2 Tabl*0 Sig: Take 1 tab by mouth 45-[address] scan. Do not mix with alcohol. Do not drive.Authorizing Provider: ROSEANN PLUMMER * Telephone Encounter - Roseann Plummer MD - 08/04/2024 8:30 PM EST I have reviewed the patient's controlled substance dispensing history in the Prescription Drug Monitoring Program in compliance with the [facility] regulations before prescribing a controlled substance. Patient has upcoming CT scan. * Telephone Encounter - Grzegorz Thomas [facility] - 08/04/2024 5:12 PM ESTPending Prescriptions: Disp Refills diazePAM 5 MG Oral Tablet (Valium) 2 Tabl*0 Sig: Take 1 tab by mouth 45-[address] scan. Do not mix with alcohol. Do not drive. * Telephone Encounter - Grzegorz Thomsa [facility] - 08/04/2024 5:11 PM EST I have reviewed the patients controlled substance dispensing history in the Prescription Drug Monitoring Program in compliance with the [place] regulations before prescribing a controlled substance. PDMP checked on 08/04/2024. Pending Prescriptions: Disp Refills diazePAM 5 MG Oral Tablet (Valium) 2 Tabl*0 Sig: Take 1 tab by mouth 45-[address] scan[address] Do not mix with alcohol. Do not drive. Last Visit: 02/21/2024 (in office), Visit date not found (telemedicine) Next Visit: 12/04/2024 Date medication was last filled: 07-04-24 Date medication is due for refill: 07-06-24 Pharmacy: [facility] Is this request for a controlled substance? Yes and Urine Drug Screen Not completed Toxicology results: No results found for this or any previous visit. Please approve if appropriate. Grzegorz Thomas, Cee.Ph. Clinical Pharmacist Centralized Clinical [facility] Services ([facility]) [address] [place] [address], [address] [place] [address] : [phone] 08/04/2024,5:11 PM documented in this encounter Plan of Treatment Upcoming Encounters Date Type Department Care Team (Late st Contact Info) Description 08/07/2024 1:15 PM EST Imaging Radiology [address] [facility] [place] [address] 12/04/2024 8:00 AM EDT Office Visit Family Practice [facility] [place] [address] Roseann Plummer MD [address] [place] [address] Health Maintenance Due Date Last Done Comments [...] Lot Shell Acet Trident Ii 50mm - [id number] Implanted:Qty: 1 on 12/05/2020 by Rodolfo Park DO at OR [facility] Right: Hip KANDICE : ORTHOPAEDICS 09/04/2024 702-04-50D / / [id number] Trident Acetabular X3 0 36 D - [id number] Implanted:Qty: 1 on 12/05/2020 by Rodolfo Park DO at OR [facility] Right: Hip KANDICE : ORTHOPAEDICS 09/14/2025 723-00-36D / / [id number] Hip Hd Nk Alumina D 36/ 25 - [id number] Implanted:Qty: 1 on 12/05/2020 by Rodolfo Park DO at OR [facility] Right: Hip KANDICE : ORTHOPAEDICS 10/03/2025 6570-0-436 / / [id number] Accolade Ii 127 Deg Sz 4 - [id number] Implanted:Qty: 1 on 12/05/2020 by Rodolfo Park DO at OR [facility] Right: Hip KANDICE : ORTHOPAEDICS 11/07/2025 0723-9346 / / [id number] documented as of this encounter Visit Diagnoses [...] the patient have Health Care Power of Gear Tester? Yes, not currently available Care Teams Network Pricing Consultant Relationship Specialty Start Date End Date Roseann Plummer MD [address] [place] [address] PCP - General Internal Medicine 11/05/22 documented as of this encounter
--- OUTSIDE RECORDS SUMMARY | 2024-08-30 22:33 | External Medical Summary | Summary of Care ---
Author Name Unknown Organization [facility] Address [address] [place] [address] Phone [phone] Care Team Providers Care Messaging Architect Name Role Phone Moi Plummer MD Primary Care Provider Reason for Visit * Reason Onset Date Comments Medication Refill 07/02/2024 Encounter Details Date Type Department Care Team ([facility] st Contact Info) Description 07/02/2024 Refill Family Practice [facility] [address] [place] [address] Moi Plummer MD [address] [place] [address] Tobacco use disorder; Situational anxiety Allergies Active Allergy Reactions Criticality Noted Date Comments Buspirone Rash 11/01/2022 documented as of this encounter (statuses as of 07/04/2024) Medications methADONE 10 MG Tablet Take 1 [...] Do not drive. 2 Tablet 4 Active Nicotine 7 MG/24HR Transdermal Patch 24 Hour (Nicoderm CQ)Indications:T obacco use disorder APPLY 1 PATCH TOPICALLY DAILY 28 Patch 5 4 07/02/20 24 Discontin ued(Refil l) Folic Acid 1 MG Oral Tablet Take 1 Tablet by mouth in the morning. 30 Tablet 11 4 07/02/20 24 Discontin ued(Refil l) diazePAM 5 MG Oral Tablet (Valium)Indicati ons:Situational anxiety Take 1 tab by mouth 45-[address] scan[address] Do not mix with alcohol. Do not drive. 2 Tablet 4 07/02/20 24 Discontin ued(Refil l) Hospital, Clinic, or Other Facility Administered Medication Ordered Dose Route Frequency Start Date End Date Status Albuterol Sulfate (Proventil) (2.5 MG/3ML) 0.083% inhalation solution 2.5 mgIndications:COPD, mild (HCC) 2.5 mg NEBULIZER PRN 10/11/2022 Active documented as of this encounter (statuses as of 07/04/2024) Active Problems Problem Noted Date Diagnosed Date [...] as of this encounter (statuses as of 07/04/2024) Resolved Problems Problem Noted Date Diagnosed Date Resolved Date Chronic kidney disease, stage 3a 10/08/2022 03/01/2023 Overview: Per CKD protocol Substance abuse 05/25/2022 03/01/2023 Thrombocytopenia 05/25/2022 09/06/2023 Food insecurity 05/07/2022 05/14/2024 Overview: Per [facility] Protocol Food insecurity 03/06/2021 01/11/2022 Overview: Per [facility] Protocol documented as of this encounter (statuses as of 07/04/2024) Immunizations Name Administration Dates Next Due Pneumococcal [...] Telephone Encounter - Moi Plummer MD - 07/04/2024 10:48 AM EST Signed Prescriptions: Disp Refills Nicotine 7 MG/24HR Transdermal Patch 24 Ho*28 Pat*5 Sig: APPLY 1PATCH TOPICALLY DAILYAuthorizing Provider: MOI PLUMMER User: DURA, GIDEON FolicAcid 1 MG Oral Tablet 30 Tab*5 Sig: Take 1 Tablet by mouth in the morning.Authorizing Provider: MOI PLUMMEROrdering User: GIDEON DOMINGUEZ diazePAM 5 MG Oral Tablet (Valium) 2 Tabl*0 Sig: Take 1 tab by mouth 45-[address] scan. Do not mix with alcohol. Do not drive.Authorizing Provider: MOI PLUMMER * Telephone Encounter - Kalpesh Gonsalves RN - 07/04/2024 10:41 AM ESTPending Prescriptions: Disp Refills diazePAM 5 MG Oral Tablet (Valium) 2 Tabl*0 Sig: Take 1 tab by mouth 45-[address] scan[address] Do not mix with alcohol. Do not drive. Signed Prescriptions: Disp Refills Nicotine 7 MG/24HR Transdermal Patch 24 Ho*28 Pat*5 Sig: APPLY 1 PATCH TOPICALLY DAILY Authorizing Provider: MYRANDA PLUMMER Ordering User: GIDEON DOMINGUEZ Folic Acid 1 MG Oral Tablet 30 Tab*5 Sig: Take 1 Tablet by mouth in the morning. Authorizing Provider: MOI PLUMMER Ordering User: ALBERTO GIDEON * Telephone Encounter - Kalpesh Gonsalves RN - 07/04/2024 10:41 AM EST Please see previous messages and also patient message from yesterday 07/03/2024 and advise. * Telephone Encounter - Fabi Brush PHARM Tech - 07/04/2024 10:01 AM EST Pt is calling again please send as she needs for Saturday Thank you for your assistance Fabi Brush Calibration Checker II [facility] ([facility]) 07/04/2024,10:01 AM * Telephone Encounter - Gideon Dominguez RPh - 07/03/2024 2:24 PM ESTPending Prescriptions: Disp Refills diazePAM 5 MG Oral Tablet (Valium) 2 Tabl*0 Sig: Take 1 tab by mouth 45-[address] scan. Do not mix with alcohol. Do not drive. Signed Prescriptions: Disp Refills Nicotine 7 MG/24HR Transdermal Patch 24 Ho*28 Pat*5 Sig: APPLY 1 PATCH TOPICALLY DAILY Authorizing Provider: MYRANDA PLUMMER Ordering User: GIDEON DOMINGUEZ Folic Acid 1 MG Oral Tablet 30 Tab*5 Sig: Take 1 Tablet by mouth in the morning. Authorizing Provider: MOI PLUMMER Ordering User: GIDEON DOMINGUEZ * Telephone Encounter - Gideon Dominguez RPh - 07/03/2024 2:07 PM EST I have reviewed the patients controlled substance dispensing history in the Prescription Drug Monitoring Program in compliance with the [place] regulations before prescribing a controlled substance. PDMP checked on 07/03/2024. Pending Prescriptions: Disp Refills Nicotine 7 MG/24HR Transdermal Patch 24 H*28 Pat*5 Sig: APPLY 1 PATCH TOPICALLY DAILY Folic Acid 1 MG Oral Tablet 30 Tab*11 Sig: Take 1 Tablet by mouth in the morning. diazePAM 5 MG Oral Tablet (Valium) 2 Tabl*0 Sig: Take 1 tab by mouth 45-[address] scan[address] Do not mix with alcohol. Do not drive. Last Visit: 02/21/2024 (in office), Visit date not found (telemedicine) Next Visit: 07/08/2024 Date medication was last filled: 06/11/24 Date medication is due for refill: 06/13/24 Pharmacy: [facility] [id number] Is this request for a controlled substance? Yes and Urine Drug Screen Not completed Toxicology results: No results found for this or any previous visit. Please approve if appropriate. Thanks, Gideon Dominguez PharmD Clinical Pharmacist [facility] ([facility]) [phone] 07/03/2024, 2:07 PM documented in this encounter Plan of Treatment Upcoming Encounters Date Type Department Care Team (Late st Contact Info) Description 07/06/2024 12:30 PM EST Imaging Radiology [facility] [place] [address] [facility] [place] [address] 07/08/2024 11:40 AM EST Office Visit Family Practice [facility] 132 [facility] [place] [address] Moi Plummer MD 132 [facility] [place] [address] 07/09/2024 2:00 PM EST Office Visit Pulmonary Medicine, [facility] 132 [facility] [place] [address] Huan Branham MD [address] [place] [address] Health Maintenance Due Date Last Done Comments [...] encounter Medical Devices Implanted Type Area Social Welfare Administrator Device Identifier Shelf Expiration Date Model / Serial / Lot Shell Acet Trident Ii 50mm - [id number] Implanted:Qty: 1 on 12/05/2020 by Rodolfo Park DO at OR [facility] Right: Hip KANDICE : ORTHOPAEDICS 09/04/2024 702-04-50D / / [id number] Trident Acetabular X3 0 36 D - [id number] Implanted:Qty: 1 on 12/05/2020 by Rodolfo Park DO at OR [facility] Right: Hip KANDICE : ORTHOPAEDICS 09/14/2025 723-00-36D / / [id number] Hip Hd Perry Hummel 36/ 25 - [id number] Implanted:Qty: 1 on 12/05/2020 by Rodolfo Park, DO at OR [facility] Right: Hip KANDICE : ORTHOPAEDICS 10/03/2025 6570-0-436 / / [id number] Accolade Ii 127 Deg Sz 4 - [id number] Implanted:Qty: 1 on 12/05/2020 by Rodolfo Park, DO at OR [facility] Right: Hip KANDICE : ORTHOPAEDICS 11/07/2025 [id number] / / [id number] documented as of this encounter Visit Diagnoses Diagnosis Tobacco use disorder Situational anxiety Other anxiety states documented in [...] patient have Health Care Power of Art Appraiser? Yes, not currently available Care Teams Messaging Architect Relationship Specialty Start Date End Date Moi Plummer MD [address] [place] [address] PCP - General Internal Medicine 11/05/22 documented as of this encounter
--- OUTSIDE RECORDS SUMMARY | 2024-08-30 22:33 | External Medical Summary | Summary of Care ---
Author Name Unknown Organization [facility] Address [address] [place] [address] Phone [phone] Care Team Providers Care Wool Sorter Name Role Phone Roseann Plummer MD Primary Care Provider Reason for Visit * Reason Onset Date Comments Test Results 07/07/2024 DVT study Encounter Details Date Type Department Care Team ([facility] st Contact Info) Description 07/07/2024 Telephone Pulmonary Medicine, [facility] [address] [facility] [place] [address] Huan Branham MD [address] [facility] [id number] Test Results (DVT study) Allergies Active Allergy Reactions Criticality Noted Date Comments Buspirone Rash 11/01/2022 documented as of this encounter (statuses as of 07/07/2024) Medications methADONE 10 MG Tablet Take 1 [...] as of this encounter (statuses as of 07/07/2024) Active Problems Problem Noted Date Diagnosed Date [...] as of this encounter (statuses as of 07/07/2024) Resolved Problems Problem Noted Date Diagnosed Date Resolved Date Chronic kidney disease, stage 3a 10/08/2022 03/01/2023 Overview: Per CKD protocol Substance abuse 05/25/2022 03/01/2023 Thrombocytopenia 05/25/2022 09/06/2023 Food insecurity 05/07/2022 05/14/2024 Overview: Per [facility] Protocol Food insecurity 03/06/2021 01/11/2022 Overview: Per [facility] Protocol documented as of this encounter (statuses as of 07/07/2024) Immunizations Name Administration Dates Next Due Pneumococcal [...] Author No 12/05/2020 2:35 PM EDT Marcela Rodriugez RN * Because of a physical, mental, [...] Telephone Encounter - Brandy Ba LPN - 07/07/2024 11:50 AM EST MyG sent. * Telephone Encounter - Brandy Ba LPN - 07/07/2024 11:50 AM EST ----- Message from Huan Branham MD sent at 07/07/2024 7:30 AM EST ----- 06/23/2024: Bilateral lower extremity duplex was NEGATIVE for DVT. documented in this encounter Plan of Treatment Upcoming Encounters Date Type Department Care Team (Late st Contact Info) Description 07/08/2024 11:40 AM EST Office Visit [address] [place] [address] Roseann Plummer MD [address] [place] [address] 07/09/2024 2:00 PM EST Office Visit Pulmonary Medicine, [facility] [place] [address] Huan Branham MD [address] [facility] [place] [address] 07/16/2024 1:15 PM EST Imaging Radiology [address] 132 [facility] [place] [address] Health Maintenance Due Date Last Done Comments [...] this encounter Medical Devices Implanted Type Area Payment Collector Device Identifier Shelf Expiration Date Model / Serial / Lot Shell Acet Trident Ii 50mm - [id number] Implanted:Qty: 1 on 12/05/2020 by Rodolfo Park DO at OR [facility] Right: Hip KANDICE : ORTHOPAEDICS 09/04/2024 702-04-50D / / [id number] Trident Acetabular X3 0 36 D - [id number] Implanted:Qty: 1 on 12/05/2020 by Rodolfo Park DO at OR [facility] Right: Hip KANDICE : ORTHOPAEDICS 09/14/2025 723-00-36D / / [id number] Hip Hd Perry Hummel 36/ 25 - [id number] Implanted:Qty: 1 on 12/05/2020 by Rodolfo Park DO at OR [facility] Right: Hip KANDICE : ORTHOPAEDICS 10/03/2025 6570-0-436 / / [id number] Accolade Ii 127 Deg Sz 4 - [id number] Implanted:Qty: 1 on 12/05/2020 by Rodolfo Park DO at OR [facility] Right: Hip KANDICE : ORTHOPAEDICS 11/07/2025 [id number] / / [id number] documented as of this encounter Advance Directives [...] the patient have Health Care Power of Journeyman Pipe Welder? Yes, not currently available Care Teams Wool Sorter Relationship Specialty Start Date End Date Roseann Plummer MD 132 [facility] [place] [address] PCP - General Internal Medicine 11/05/22 documented as of this encounter
--- OUTSIDE RECORDS SUMMARY | 2024-08-30 22:33 | External Medical Summary | Summary of Care ---
Author Name Unknown Organization [facility] Address [address] [place] [address] Phone [phone] Care Team Providers Care First Aid Attendant Name Role Phone Roseann Plummer MD Primary Care Provider Reason for Visit * Reason Onset Date Comments Appointment 05/17/2024 Encounter Details Date Type Department Care Team ([facility] st Contact Info) Description 05/17/2024 Telephone Family Practice [facility] [address] [facility] [place] [address] Roseann Plummer MD [address] [place] [address] Appointment Allergies Active Allergy Reactions Criticality Noted Date Comments Buspirone Rash 11/01/2022 documented as of this encounter (statuses as of 08/16/2024) Medications methADONE 10 MG Tablet Take 1 [...] FOR COUGH 18 g 5 4 Active Hospital, Clinic, or Other Facility Administered Medication Ordered Dose Route Frequency Start Date End Date Status Albuterol Sulfate (Proventil) (2.5 MG/3ML) 0.083% inhalation solution 2.5 mgIndications:COPD, mild (HCC) 2.5 mg NEBULIZER PRN 10/11/2022 Active documented as of this encounter (statuses as of 08/16/2024) Active Problems Problem Noted Date Diagnosed Date [...] as of this encounter (statuses as of 08/16/2024) Resolved Problems Problem Noted Date Diagnosed Date Resolved Date Chronic kidney disease, stage 3a 10/08/2022 03/01/2023 Overview: Per CKD protocol Substance abuse 05/25/2022 03/01/2023 Thrombocytopenia 05/25/2022 09/06/2023 Food insecurity 05/07/2022 05/14/2024 Overview: Per [facility] Protocol Food insecurity 03/06/2021 01/11/2022 Overview: Per [facility] Protocol documented as of this encounter (statuses as of 08/16/2024) Immunizations Name Administration Dates Next Due Pneumococcal [...] No 05/20/2024 Does the household have a [facility] source of income? (Household - for ages [...] Date Author No 12/05/2020 2:35 PM EDT Jennifer, Tas guerra L, RN documented in this encounter Miscellaneous Notes * Telephone Encounter - Mavis George OSA - 05/17/2024 7:21 PM EDT Pt would like to reschedule 05/18 appt due to being in the hospital Mavis CHARLENE George 05/17/2024 7:22 PM documented in this encounter Plan of Treatment Upcoming Encounters Date Type Department Care Team (Late st Contact Info) Description 08/28/2024 11:30 AM EST Appointment Radiology, [facility] [address] [facility] [place] [id number] 12/04/2024 8:00 AM EDT Office Visit [facility] [address] [place] [address] Roseann Plummer MD [address] [place] [address] Health Maintenance Due Date Last Done Comments [...] this encounter Medical Devices Implanted Type Area Android Software Engineer Device Identifier Shelf Expiration Date Model / Serial / Lot Shell Acet Trident Ii 50mm - [id number] Implanted:Qty: 1 on 12/05/2020 by Rodolfo Park DO at OR [facility] Right: Hip KANDICE : ORTHOPAEDICS 09/04/2024 702-04-50D / / [id number] Trident Acetabular X3 0 36 D - [id number] Implanted:Qty: 1 on 12/05/2020 by Rodolfo Park DO at OR [facility] Right: Hip KANDICE : ORTHOPAEDICS 09/14/2025 723-00-36D / / [id number] Hip Hd Nk Alumina D 36/ 25 - [id number] Implanted:Qty: 1 on 12/05/2020 by Rodolfo Park DO at OR [facility] Right: Hip KANDICE : ORTHOPAEDICS 10/03/2025 6570-0-436 / / [id number] Accolade Ii 127 Deg Sz 4 - [id number] Implanted:Qty: 1 on 12/05/2020 by Rodolfo Park DO at OR [facility] Right: Hip KANDICE : ORTHOPAEDICS 11/07/2025 [id number] / / [id number] documented as of this encounter Advance Directives [...] the patient have Health Care Power of Construction Site Crossing Guard? Yes, not currently available Care Teams First Aid Attendant Relationship Specialty Start Date End Date Roseann Plummer MD [address] [place] [address] PCP - General Internal Medicine 11/05/22 documented as of this encounter
--- OUTSIDE RECORDS SUMMARY | 2024-08-30 22:33 | External Medical Summary ---
Author Name Unknown Address Unknown Organization K09:[facility] [place] [address] Laboratory Report Ordering Provider Test Date Status MARIE MENCHACAI 07/17/2024 12:32:06 Final Observation Date Value Abnormality Reference (Units ) Status Creatinine 07/17/2024 12:32:06 0.9 0.5-1.0 (mg/dL) Final Glomerular filtration rate/1.73 sq M.predicted [Volume Rate/Area] in Serum, Plasma or Blood by Creatinine-based formula (CKD-EPI) 07/17/2024 12:32:06 77 >=60 (mL/min) Final eGFR is calculated based on the CKD-EPI 2020 equation. Performing Location [facility] [place] [address]
--- OUTSIDE RECORDS SUMMARY | 2024-08-30 22:33 | External Medical Summary | Summary of Care ---
Author Name Unknown Organization [facility] Address [address] [place] [address] Phone [phone] Care Team Providers Care Optician Name Role Phone Roseann Plummer MD Primary Care Provider Reason for Visit * Reason Onset Date Comments Information 08/07/[address] PE study again, after 6 tries we were not able to find a usable vein on this pt. Encounter Details Date Type Department Care Team (Late st Contact Info) Description 08/07/2024 Telephone Radiology [address] [address] Dionne Bardales, RT (R) Information [...] scheduling the CT PE protocol study at [facility]. Pleasereach out to patient for rescheduling if acceptable. Please provide a heads up to [facility] CT chest regarding IV access. * Telephone Encounter - Raven Kirk LPN - 08/07/2024 3:23 PM EST Per would like to have the pt set up in [place]. Per this study is not urgent Tried calling the pt and had to leave a message * Telephone Encounter - Raven Kirk LPN - 08/07/2024 3:04 PM EST [place] text has been sent to to review. [...] do not have that here at the [facility] office. Maybe a Nuc VQ scan is a another way to go for this pt? Praveena, Dionne VALIENTE GW documented in this encounter Plan of Treatment Upcoming Encounters Date Type Department Care Team (Late st Contact Info) Description 12/04/2024 8:00 AM EDT Office Visit Family Practice [facility] [address] [place] [address] Roseann Plummer MD [address] [address] Health Maintenance Due Date Last Done Comments [...] this encounter Medical Devices Implanted Type Area Learning Support Assistant Device Identifier Shelf Expiration Date Model / Serial / Lot Shell Acet Trident Ii 50mm - [id number] Implanted:Qty: 1 on 12/05/2020 by Rodolfo Park DO at OR [facility] Right: Hip KANDICE : ORTHOPAEDICS 09/04/2024 702-04-50D / / [id number] Trident Acetabular X3 0 36 D - [id number] Implanted:Qty: 1 on 12/05/2020 by Rodolfo Park DO at OR [facility] Right: Hip KANDICE : ORTHOPAEDICS 09/14/2025 723-00-36D / / [id number] Hip Hd Perry Hummel 36/ 25 - [id number] Implanted:Qty: 1 on 12/05/2020 by Rodolfo Park DO at OR [facility] Right: Hip KANDICE : ORTHOPAEDICS 10/03/2025 6570-0-436 / / [id number] Accolade Ii 127 Deg Sz 4 - [id number] Implanted:Qty: 1 on 12/05/2020 by Rodolfo Park DO at OR [facility] Right: Hip KANDICE : ORTHOPAEDICS 11/07/2025 [id number] / / [id number] documented as of this encounter Advance Directives [...] the patient have Health Care Power of Credit Card Specialist? Yes, not currently available Care Teams Optician Relationship Specialty Start Date End Date Roseann Plummer MD [address] [place] [address] PCP - General Internal Medicine 11/05/22 documented as of this encounter
--- OUTSIDE RECORDS SUMMARY | 2024-08-30 22:33 | External Medical Summary | Summary of Care ---
Author Name Unknown Organization [facility] Address [address] [place] [address] Phone [phone] Care Team Providers Care Tiltrotor Crew Chief Name Role Phone Roseann Plummer MD Primary Care Provider Reason for Visit * Reason Onset Date Comments Advice 2024 Encounter Details Date Type Department Care Team ([facility] st Contact Info) Description 2024 Telephone Pulmonary Medicine Brunilda Gutiérrez [address] [place] [phone] Huan Branham MD [address] [place] [address] Advice Allergies Active Allergy Reactions Criticality Noted Date Comments Buspirone Rash 11/01/2022 documented as of this encounter (statuses as of 08/12/2024) Medications methADONE 10 MG Tablet Take 1 [...] as of this encounter (statuses as of 08/12/2024) Active Problems Problem Noted Date Diagnosed Date [...] as of this encounter (statuses as of 08/12/2024) Resolved Problems Problem Noted Date Diagnosed Date Resolved Date Chronic kidney disease, stage 3a 10/08/2022 03/01/2023 Overview: Per CKD protocol Substance abuse 05/25/2022 03/01/2023 Thrombocytopenia 05/25/2022 09/06/2023 Food insecurity 05/07/2022 05/14/2024 Overview: Per [facility] Protocol Food insecurity 03/06/2021 01/11/2022 Overview: Per [facility] Protocol documented as of this encounter (statuses as of 08/12/2024) Immunizations Name Administration Dates Next Due Pneumococcal [...] encounter Miscellaneous Notes * Telephone Encounter - Caitlin Hernandez CPhT - 2024 9:34 AM EST Medical supply informing they will be faxing information for pt medical supply request to provider. Thank you, Caitlin Hernandez CPhT Laundry Pricing Clerk II [facility] 2024,9:34 AM documented in this encounter Plan of Treatment Upcoming Encounters Date Type Department Care Team (Late st Contact Info) Description 08/28/2024 11:30 AM EST Appointment Radiology, [address] [place] [address] 12/04/2024 8:00 AM EDT Office Visit Family [facility] [address] [place] [address] Roseann Plummer MD [address] [place] [address] Health Maintenance Due Date Last Done Comments [...] this encounter Medical Devices Implanted Type Area Assistant Baseball Coach Device Identifier Shelf Expiration Date Model / Serial / Lot Shell Acet Trident Ii 50mm - [id number] Implanted:Qty: 1 on 12/05/2020 by Rodolfo Park, DO at OR [facility] Right: Hip KANDICE : ORTHOPAEDICS 09/04/2024 702-04-50D / / [id number] Trident Acetabular X3 0 36 D - [id number] Implanted:Qty: 1 on 12/05/2020 by Rodolfo Park DO at OR [facility] Right: Hip KANDICE : ORTHOPAEDICS 09/14/2025 723-00-36D / / [id number] Hip Hd Perry Hummel 36/ 25 - [id number] Implanted:Qty: 1 on 12/05/2020 by Rodolfo Park DO at OR [facility] Right: Hip KANDICE : ORTHOPAEDICS 10/03/2025 6570-0-436 / / [id number] Accolade Ii 127 Deg Sz 4 - [id number] Implanted:Qty: 1 on 12/05/2020 by Rodolfo Park DO at OR [facility] Right: Hip KANDICE : ORTHOPAEDICS 11/07/2025 [id number] / / [id number] documented as of this encounter Advance Directives [...] patient have Health Care Power of Barrel Loader? Yes, not currently available Care Teams Tiltrotor Crew Chief Relationship Specialty Start Date End Date Roseann Plummer MD 132 [facility] [place] [address] PCP - General Internal Medicine 11/05/22 documented as of this encounter
--- OUTSIDE RECORDS SUMMARY | 2024-08-30 22:33 | External Medical Summary | Summary of Care ---
Author Name Unknown Organization [facility] Address [address] [place] [address] Phone [phone] Care Team Providers Care Hydraulic Repairer Name Role Phone Roseann Plummer MD Primary Care Provider Reason for Visit * Reason Onset Date Comments Health Maintenance 07/16/2024 Encounter Details Date Type Department Care Team ([facility] st Contact Info) Description 07/16/[address] [facility] [address] [facility] [employer] [facility] [place] [address] Roseann Plummer MD [address] [place] [address] Health Maintenance Allergies Active Allergy Reactions Criticality Noted Date Comments Buspirone Rash 11/01/2022 documented as of this encounter (statuses as of 07/16/2024) Medications methADONE 10 MG Tablet Take 1 [...] as of this encounter (statuses as of 07/16/2024) Active Problems Problem Noted Date Diagnosed Date [...] as of this encounter (statuses as of 07/16/2024) Resolved Problems Problem Noted Date Diagnosed Date Resolved Date Chronic kidney disease, stage 3a 10/08/2022 03/01/2023 Overview: Per CKD protocol Substance abuse 05/25/2022 03/01/2023 Thrombocytopenia 05/25/2022 09/06/2023 Food insecurity 05/07/2022 05/14/2024 Overview: Per [facility] Protocol Food insecurity 03/06/2021 01/11/2022 Overview: Per [facility] Protocol documented as of this encounter (statuses as of 07/16/2024) Immunizations Name Administration Dates Next Due Pneumococcal [...] Telephone Encounter - Mechelle Garcia LPN - 07/16/2024 11:46 AM EST Care Gaps Comprehensive Care Outreach Last Office/Telemedicine Visit: 02/21/2024 (in office), Visit date not found (telemedicine) Next Office Visit: 12/04/2024 Hemoglobin AIC Results: Lab Results Component Value Date/Time HEMOGLOBIN A1C - [facility] 5.6 11/25/2020 12:32 PM BP Readings from Last 1 Encounters: 02/24/24 133/73 Reviewed Health Maintenance below: Health Maintenance Topic Date Due Alpha-1 Antitrypsin Never done Cervical Cancer Screening Never done Mammogram 02/28/2021 *ADVANCE DIRECTIVE NOT ON FILE Never done Influenza Vaccine (FLU shot) (1) 03/29/2024 O2 ASSESSMENT COMPLETED IN PAST YEAR FOR COPD 02/20/2025 Pap mamm Care Gap Outreach Action Taken: Left message and MyChart message sent documented in this encounter Plan of Treatment Upcoming Encounters Date Type Department Care Team (Late st Contact Info) Description 07/20/2024 3:15 PM EST Imaging Radiology [address] [place] [address] 12/04/2024 8:00 AM EDT Office Visit Family Practice [facility] [address] [place] [address] Roseann Plummer MD [address] [place] [address] Health Maintenance Due Date Last Done Comments [...] this encounter Medical Devices Implanted Type Area Patent Litigation Associate Device Identifier Shelf Expiration Date Model / Serial / Lot Shell Acet Trident Ii 50mm - [id number] Implanted:Qty: 1 on 12/05/2020 by Rodolfo Park, DO at OR [facility] Right: Hip KANDICE : ORTHOPAEDICS 09/04/2024 702-04-50D / / [id number] Trident Acetabular X3 0 36 D - [id number] Implanted:Qty: 1 on 12/05/2020 by Rodolfo Park DO at OR [facility] Right: Hip KANDICE : ORTHOPAEDICS 09/14/2025 723-00-36D / / [id number] Hip Hd Perry Hummel 36/ 25 - [id number] Implanted:Qty: 1 on 12/05/2020 by Rodolfo Park DO at OR [facility] Right: Hip KANDICE : ORTHOPAEDICS 10/03/2025 6570-0-436 / / [id number] Accolade Ii 127 Deg Sz 4 - [id number] Implanted:Qty: 1 on 12/05/2020 by Rodolfo Park DO at OR [facility] Right: Hip KANDICE : ORTHOPAEDICS 11/07/2025 [id number] / / [id number] documented as of this encounter Advance Directives [...] the patient have Health Care Power of Audio Installer? Yes, not currently available Care Teams Hydraulic Repairer Relationship Specialty Start Date End Date Roseann Plummer MD 132 [facility] [place] [address] PCP - General Internal Medicine 11/05/22 documented as of this encounter
--- OUTSIDE RECORDS SUMMARY | 2024-08-30 22:33 | External Medical Summary | Summary of Care ---
Author Name Unknown Organization [facility] Address [address] [place] [address] Phone [phone] Care Team Providers Care Master Of Ceremonies Name Role Phone Roseann Plummer MD Primary Care Provider Encounter Details Date Type Department Care Team (Late st Contact Info) Description 2024 Telephone Family Practice [facility] [address] [employer] [facility] [place] [address] Roseann Plummer MD [address] [employer] [place] [address] Allergies Active Allergy Reactions Criticality Noted Date Comments Buspirone Rash 11/01/2022 documented as of this encounter (statuses as of 2024) Medications methADONE 10 MG Tablet Take 1 [...] as of this encounter (statuses as of 2024) Active Problems Problem Noted Date Diagnosed Date [...] as of this encounter (statuses as of 2024) Resolved Problems Problem Noted Date Diagnosed Date Resolved Date Chronic kidney disease, stage 3a 10/08/2022 03/01/2023 Overview: Per CKD protocol Substance abuse 05/25/2022 03/01/2023 Thrombocytopenia 05/25/2022 09/06/2023 Food insecurity 05/07/2022 05/14/2024 Overview: Per [facility] Protocol Food insecurity 03/06/2021 01/11/2022 Overview: Per [facility] Protocol documented as of this encounter (statuses as of 2024) Immunizations Name Administration Dates Next Due Pneumococcal [...] encounter Miscellaneous Notes * Telephone Encounter - Dalila Clement PHARM Tech - 2024 9:23 AM EST Medical supply co was online. Got into chart and call was disconnected before I could get any more information. Thanks, Dalila Clement Director [place] [facility] 2024,9:23 AM documented in this encounter Plan of Treatment Upcoming Encounters Date Type Department Care Team (Late st Contact Info) Description 08/12/2024 7:15 AM EST Hospital Encounter Radiology, [facility] [address] [place] [phone] 12/04/2024 8:00 AM EDT Office Visit Family [facility] [address] [place] [address] Roseann Plummer MD [address] [place] [address] Health Maintenance Due Date Last Done Comments [...] this encounter Medical Devices Implanted Type Area Cleaning Matron Device Identifier Shelf Expiration Date Model / Serial / Lot Shell Acet Trident Ii 50mm - [id number] Implanted:Qty: 1 on 12/05/2020 by Rodolfo Park DO at OR [facility] Right: Hip KANDICE : ORTHOPAEDICS 09/04/2024 702-04-50D / / [id number] Trident Acetabular X3 0 36 D - [id number] Implanted:Qty: 1 on 12/05/2020 by Rodolfo Park, DO at OR [facility] Right: Hip KANDICE : ORTHOPAEDICS 09/14/2025 723-00-36D / / [id number] Hip Hd Perry Hummel [id number] Implanted:Qty: 1 on 12/05/2020 by Rodolfo Park, DO at OR [facility] Right: Hip KANDICE : ORTHOPAEDICS 10/03/2025 6570-0-436 / / [id number] Accolade Ii 127 Deg Sz - [id number] Implanted:Qty: 1 on 12/05/2020 by Rodolfo Park, DO at OR [facility] Right: Hip KANDICE : ORTHOPAEDICS 11/07/2025 9963-4893 / / [id number] documented as of this encounter Advance Directives [...] the patient have Health Care Power of Screw Machine Set Up Operator? Yes, not currently available Care Teams Master Of Ceremonies Relationship Specialty Start Date End Date Roseann Plummer MD 132 [facility] [place] [address] PCP - General Internal Medicine 11/05/22 documented as of this encounter
--- OUTSIDE RECORDS SUMMARY | 2024-08-30 22:33 | External Medical Summary | Summary of Care ---
Author Name Unknown Organization [facility] Address [address] [place] [address] Phone [phone] Care Team Providers Care Emergency Doctor Name Role Phone Roseann Plummer MD Primary Care Provider Reason for Visit * Reason Comments Outpatient Testing Encounter Details Date Type Department Care Team (Late st Contact Info) Description 07/17/2024 12:30 PM EST Laboratory Laboratory [facility] [place] [address] [place] [id number] [facility] [address] [place] [address] Multiple subsegmental pulmonary emboli without acute cor pulmonale (HCC) Allergies Active Allergy Reactions Criticality Noted Date Comments Buspirone Rash 11/01/2022 documented as of this encounter (statuses as of 07/17/2024) Medications methADONE 10 MG Tablet Take 1 [...] as of this encounter (statuses as of 07/17/2024) Active Problems Problem Noted Date Diagnosed Date [...] as of this encounter (statuses as of 07/17/2024) Resolved Problems Problem Noted Date Diagnosed Date Resolved Date Chronic kidney disease, stage 3a 10/08/2022 03/01/2023 Overview: Per CKD protocol Substance abuse 05/25/2022 03/01/2023 Thrombocytopenia 05/25/2022 09/06/2023 Food insecurity 05/07/2022 05/14/2024 Overview: Per [facility] Protocol Food insecurity 03/06/2021 01/11/2022 Overview: Per [facility] Protocol documented as of this encounter (statuses as of 07/17/2024) Immunizations Name Administration Dates Next Due Pneumococcal [...] No 05/20/2024 Does the household have a [facility] source of income? (Household - for [...] Description 07/20/2024 3:15 PM EST Imaging Radiology [address] [place] [address] 12/04/2024 8:00 AM EDT Office Visit Family Practice [facility] [address] [place] [address] Roseann Plummer MD [address] [facility] [place] [address] Pending Results Name Type Priority Associated Diagnoses Date /Time CREATININE Lab Routine Multiple subsegmental pulmonary emboli without acute cor pulmonale (HCC) 07/17/2024 12:32 PM EST Health Maintenance Due Date Last [...] this encounter Medical Devices Implanted Type Area Shellacker Device Identifier Shelf Expiration Date Model / Serial / Lot Shell Acet Trident Ii 50mm - [id number] Implanted:Qty: 1 on 12/05/2020 by Rodolfo Park DO at OR [facility] Right: Hip KANDICE : ORTHOPAEDICS 09/04/2024 702-04-50D / / [id number] Trident Acetabular X3 0 36 D - [id number] Implanted:Qty: 1 on 12/05/2020 by Rodolfo Park DO at OR [facility] Right: Hip KANDICE : ORTHOPAEDICS 09/14/2025 723-00-36D / / [id number] Hip Hd Peryr Hummel 36/ 25 - [id number] Implanted:Qty: 1 on 12/05/2020 by Rodolfo Park, DO at OR [facility] Right: Hip KANDICE : ORTHOPAEDICS 10/03/2025 6570-0-436 / / [id number] Accolade Ii 127 Deg Sz 4 - [id number] Implanted:Qty: 1 on 12/05/2020 by Rodolfo Park, DO at OR [facility] Right: Hip KANDICE : ORTHOPAEDICS 11/07/2025 [id number] / / [id number] documented as of this encounter Visit Diagnoses Diagnosis Multiple subsegmental pulmonary emboli without acute cor pulmonale (HCC) documented in [...] the patient have Health Care Power of Air Conditioning Specialist? Yes, not currently available Care Teams Emergency Doctor Relationship Specialty Start Date End Date Roseann Plummer MD [address] [facility] [place] [address] PCP - General Internal Medicine 11/05/22 documented as of this encounter
--- OUTSIDE RECORDS SUMMARY | 2024-08-30 22:33 | External Medical Summary | Summary of Care ---
Author Name Unknown Organization [facility] Address [address] [place] [address] Phone [phone] Care Team Providers Care Media Director Name Role Phone Roseann Plummer MD Primary Care Provider Reason for Visit * Reason Onset Date Comments Medication Refill 07/04/2024 Encounter Details Date Type Department Care Team ([facility] st Contact Info) Description 07/04/2024 Refill Family Practice [facility] [address] [place] [address] Roseann Plummer MD [address] [place] [address] Situational anxiety Allergies Active Allergy Reactions Criticality Noted Date Comments Buspirone Rash 11/01/2022 documented as of this encounter (statuses as of 07/06/2024) Medications methADONE 10 MG Tablet Take 1 [...] as of this encounter (statuses as of 07/06/2024) Active Problems Problem Noted Date Diagnosed Date [...] as of this encounter (statuses as of 07/06/2024) Resolved Problems Problem Noted Date Diagnosed Date Resolved Date Chronic kidney disease, stage 3a 10/08/2022 03/01/2023 Overview: Per CKD protocol Substance abuse 05/25/2022 03/01/2023 Thrombocytopenia 05/25/2022 09/06/2023 Food insecurity 05/07/2022 05/14/2024 Overview: Per [facility] Protocol Food insecurity 03/06/2021 01/11/2022 Overview: Per [facility] Protocol documented as of this encounter (statuses as of 07/06/2024) Immunizations Name Administration Dates Next Due Pneumococcal [...] encounter Miscellaneous Notes * Telephone Encounter - Valencia Yoder RPh - 07/06/2024 9:24 AM ESTRefused Prescriptions: Disp Refills diazePAM 5 MG Oral Tablet (Valium) 2 Tabl*0 Sig: Take 1 tab by mouth 45-[address] scan. Do not mix with alcohol. Do not drive.Refused By: VALENCIA YODERon for Refusal: Duplicate Request documented in this encounter Plan of Treatment Upcoming Encounters Date Type Department Care Team (Late st Contact Info) Description 07/08/2024 11:40 AM EST Office Visit Family Practice [address] [place] [address] Roseann Plummer MD [address] [place] [address] 07/09/2024 2:00 PM EST Office Visit Pulmonary Medicine, [facility] [address] [place] [address] Huan Branham MD [address] [place] [address] 07/16/2024 1:15 PM EST Imaging Radiology [facility] [address] [place] [address] Health Maintenance Due Date Last Done Comments [...] encounter Medical Devices Implanted Type Area Manager Sign Device Identifier Shelf Expiration Date Model / Serial / Lot Shell Acet Trident Ii 50mm - [id number] Implanted:Qty: 1 on 12/05/2020 by Rodolfo Park DO at OR [facility] Right: Hip KANDICE : ORTHOPAEDICS 09/04/2024 702-04-50D / / [id number] Trident Acetabular X3 0 36 D - [id number] Implanted:Qty: 1 on 12/05/2020 by Rodolfo Park DO at OR [facility] Right: Hip KANDICE : ORTHOPAEDICS 09/14/2025 723-00-36D / / [id number] Hip Hd Perry Hummel 36/ 25 - [id number] Implanted:Qty: 1 on 12/05/2020 by Rodolfo Park DO at OR [facility] Right: Hip KANDICE : ORTHOPAEDICS 10/03/2025 6570-0-436 / / [id number] Accolade Ii 127 Deg Sz 4 - [id number] Implanted:Qty: 1 on 12/05/2020 by Rodolfo Park DO at OR [facility] Right: Hip KANDICE : ORTHOPAEDICS 11/07/2025 0668-7766 / / [id number] documented as of this encounter Visit Diagnoses [...] the patient have Health Care Power of Field Service Poultry Technician? Yes, not currently available Care Teams Media Director Relationship Specialty Start Date End Date Roseann Plummer MD [address] [place] [address] PCP - General Internal Medicine 11/05/22 documented as of this encounter
--- OUTSIDE RECORDS SUMMARY | 2024-08-30 22:34 | External Medical Summary | Summary of Care ---
Author Name Unknown Organization [facility] Address [address] [place] [address] Phone [phone] Care Team Providers Care Inspector Water Pollution Control Name Role Phone Roseann Plummer MD Primary Care Provider Reason for Visit * Reason Onset Date Comments Advice 06/30/2024 Encounter Details Date Type Department Care Team ([facility] st Contact Info) Description 06/30/2024 Telephone Access Center, [address] *DO NOT REMOVE THIS DEPARTMENT* [place] [address] Services, Scheduling [address] [place] [address] Advice Allergies Active Allergy Reactions Criticality Noted Date Comments Buspirone Rash 11/01/2022 documented as of this encounter (statuses as of 06/30/2024) Medications methADONE 10 MG Tablet Take 1 [...] 1 PATCH TOPICALLY DAILY 28 Patch 5 05/20/202 4 Active Nicotine 14 MG/24HR Transdermal Patch [...] as of this encounter (statuses as of 06/30/2024) Active Problems Problem Noted Date Diagnosed Date [...] as of this encounter (statuses as of 06/30/2024) Resolved Problems Problem Noted Date Diagnosed Date Resolved Date Chronic kidney disease, stage 3a 10/08/2022 03/01/2023 Overview: Per CKD protocol Substance abuse 05/25/2022 03/01/2023 Thrombocytopenia 05/25/2022 09/06/2023 Food insecurity 05/07/2022 05/14/2024 Overview: Per [facility] Protocol Food insecurity 03/06/2021 01/11/2022 Overview: Per [facility] Protocol documented as of this encounter (statuses as of 06/30/2024) Immunizations Name Administration Dates Next Due Pneumococcal [...] encounter Miscellaneous Notes * Telephone Encounter - Kay Berkowitz OSA - 06/30/2024 10:09 AM EST Pt is calling and needs new orders and auth for pt to receive CT ango chest scan with contrast. Please send to [facility] [phone] documented in this encounter Plan of Treatment Upcoming Encounters Date Type Department Care Team (Late st Contact Info) Description 07/08/2024 11:40 AM EST Office Visit Family Practice [facility] [address] [facility] [place] [address] Roseann Plummer MD 132 [facility] [place] [address] 07/09/2024 2:00 PM EST Office Visit Pulmonary Medicine, [facility] [address] [facility] [place] [address] Huan Branham MD [address] [facility] [place] [phone] Health Maintenance Due Date Last Done Comments [...] this encounter Medical Devices Implanted Type Area Prop Attendant Device Identifier Shelf Expiration Date Model / Serial / Lot Shell Acet Trident Ii 50mm - [id number] Implanted:Qty: 1 on 12/05/2020 by Rodolfo Park, at OR [facility] Right: Hip KANDICE : ORTHOPAEDICS 09/04/2024 702-04-50D / / [id number] Trident Acetabular X3 0 36 D - [id number] Implanted:Qty: 1 on 12/05/2020 by Rodolfo Park, DO at OR [facility] Right: Hip KANDICE : ORTHOPAEDICS 09/14/2025 723-00-36D / / [id number] Hip Hd Perry Hummel [id number] Implanted:Qty: 1 on 12/05/2020 by Rodolfo Park, DO at OR [facility] Right: Hip KANDICE : ORTHOPAEDICS 10/03/2025 6570-0-436 / / [id number] Accolade Ii 127 Deg Sz - [id number] Implanted:Qty: 1 on 12/05/2020 by Rodolfo Park, DO at OR [facility] Right: Hip KANDICE : ORTHOPAEDICS 11/07/2025 2780-9505 / / [id number] documented as of this encounter Advance Directives [...] the patient have Health Care Power of Research Interviewer? Yes, not currently available Care Teams Inspector Water Pollution Control Relationship Specialty Start Date End Date Roseann Plummer MD [address] [place] [address] PCP - General Internal Medicine 11/05/22 documented as of this encounter
--- OUTSIDE RECORDS SUMMARY | 2024-08-30 22:34 | External Medical Summary | Summary of Care ---
Author Name Unknown Organization [facility] Address [address] [place] [address] Phone [phone] Care Team Providers Care Hvac Lead Name Role Phone Roseann Plummer MD Primary Care Provider Reason for Visit * Reason Onset Date Comments Advice 07/03/2024 Encounter Details Date Type Department Care Team ([facility] st Contact Info) Description 07/03/2024 Telephone Access Center, [address] *DO NOT REMOVE THIS DEPARTMENT* [place] [address] Services, Scheduling [address] [place] [address] Advice Allergies Active Allergy Reactions Criticality Noted [...] Author No 12/05/2020 2:35 PM EDT Marcela Rordiguez RN documented as of this encounter Mental Status * Because of a physical, mental, or emotional condition, do you have serious difficulty concentrating, remembering, or making decisions? (5 years old or older) Answer Entry Date Author No 12/05/2020 2:35 PM EDT Marcela Rodriguez RN documented in this encounter Miscellaneous Notes * Telephone Encounter - Kay Berkowitz OSA - 07/03/2024 8:47 AM EST Pt needs CT scan done but [facility] is calling and stating that they need an auth. Please advise. documented in this encounter Plan of Treatment Upcoming Encounters Date Type Department Care Team (Late st Contact Info) Description 07/08/2024 11:40 AM EST Office Visit Family Practice [facility] 132 [facility] [place] [address] Roseann Plummer MD 132 [facility] [place] [address] 07/09/2024 2:00 PM EST Office Visit Pulmonary Medicine, [facility] 132 [facility] [place] [address] Huan Branham MD [address] [facility] [place] [address] Health Maintenance Due Date Last Done Comments [...] this encounter Medical Devices Implanted Type Area Wrecking Mechanic Device Identifier Shelf Expiration Date Model / Serial / Lot Shell Acet Trident Ii 50mm - [id number] Implanted:Qty: 1 on 12/05/2020 by Rodolfo Park DO at OR [facility] Right: Hip KANDICE : ORTHOPAEDICS 09/04/2024 702-04-50D / / [id number] Trident Acetabular X3 0 36 D - [id number] Implanted:Qty: 1 on 12/05/2020 by Rodolfo Park, DO at OR [facility] Right: Hip KANDICE : ORTHOPAEDICS 09/14/2025 723-00-36D / / [id number] Hip Hd Perry Hummel [id number] Implanted:Qty: 1 on 12/05/2020 by Rodolfo Park, DO at OR [facility] Right: Hip KANDICE : ORTHOPAEDICS 10/03/2025 6570-0-436 / / [id number] Accolade Ii 127 Deg Sz - [id number] Implanted:Qty: 1 on 12/05/2020 by Rodolfo Park, DO at OR [facility] Right: Hip KANDICE : ORTHOPAEDICS 11/07/2025 [id number] / / [id number] documented as of this encounter Advance Directives [...] the patient have Health Care Power of Rod Drawer? Yes, not currently available Care Teams Hvac Lead Relationship Specialty Start Date End Date Roseann Plummer MD 132 [facility] [place] [address] PCP - General Internal Medicine 11/05/22 documented as of this encounter
--- OUTSIDE RECORDS SUMMARY | 2024-08-30 22:34 | External Medical Summary | Summary of Care ---
Author Name Unknown Organization [facility] Address [address] [place] [address] Phone [phone] Care Team Providers Care Coffee Shop Manager Name Role Phone Roseann Plummer MD Primary Care Provider Reason for Visit * Reason Onset Date Comments Order Request 06/30/2024 Re: CT angio bee st with contrast/auth Encounter Details Date Type Department Care Team (Late st Contact Info) Description 06/30/2024 Telephone Access Center, [address] *DO NOT REMOVE THIS DEPARTMENT* [place] [phone] Services, Scheduling [address] [place] [address] Order Request (Re: CT angio chest with con... Allergies Active Allergy Reactions Criticality Noted Date [...] chest scan with contrast. Please send to [facility] [phone] documented in this encounter Plan of Treatment Upcoming Encounters Date Type Department Care Team (Late st Contact Info) Description 07/08/2024 11:40 AM EST Office Visit Family Practice [facility] [address] [place] [address] Roseann Plummer MD [address] [place] [address] 07/09/2024 2:00 PM EST Office Visit Pulmonary Medicine, [facility] [address] [place] [address] Huan Branham MD [address] [place] [address] Health Maintenance Due Date Last Done Comments [...] this encounter Medical Devices Implanted Type Area Butter Production Supervisor Device Identifier Shelf Expiration Date Model / Serial / Lot Shell Acet Trident Ii 50mm - [id number] Implanted:Qty: 1 on 12/05/2020 by Rodolfo Park, at OR [facility] Right: Hip KANDICE : ORTHOPAEDICS 09/04/2024 702-04-50D / / [id number] Trident Acetabular X3 0 36 D - [id number] Implanted:Qty: 1 on 12/05/2020 by Rodolfo Park, DO at OR [facility] Right: Hip KANDICE : ORTHOPAEDICS 09/14/2025 723-00-36D / / [id number] Hip Hd Perry Hummel 36/ 25 - [id number] Implanted:Qty: 1 on 12/05/2020 by Rodolfo Park DO at OR [facility] Right: Hip KANDICE : ORTHOPAEDICS 10/03/2025 6570-0-436 / / [id number] Accolade Ii 127 Deg Sz 4 - [id number] Implanted:Qty: 1 on 12/05/2020 by Rodolfo Park DO at OR [facility] Right: Hip KANDICE : ORTHOPAEDICS 11/07/2025 5911-9536 / / [id number] documented as of this encounter Advance Directives [...] the patient have Health Care Power of Plumber Apprentice? Yes, not currently available Care Teams Coffee Shop Manager Relationship Specialty Start Date End Date Roseann Plummer MD 132 [facility] [place] [address] PCP - General Internal Medicine 11/05/22 documented as of this encounter
--- OUTSIDE RECORDS SUMMARY | 2024-08-30 22:34 | External Medical Summary | Summary of Care ---
Author Name Unknown Organization [facility] Address [address] [place] [address] Phone [phone] Care Team Providers Care Manager Family Name Role Phone Roseann Plummer MD Primary Care Provider Encounter Details Date Type Department Care Team ([facility] st Contact Info) Description 07/03/2024 Orders Only PATIENT PORTAL DO NOT DELETE THIS DEPT USED BY [place] [id number] Allergies Active Allergy Reactions Criticality Noted [...] No 05/20/2024 Does the household have a [facility] source of income? (Household - for [...] Entry Date Author No 12/05/2020 2:35 PM EDMarcela Wiseman RN documented in this encounter Plan of Treatment Upcoming Encounters Date Type Department Care Team (Late st Contact Info) Description 07/08/2024 11:40 AM EST Office Visit Family Practice [facility] [address] [place] [address] Roseann Plummer MD 132 [facility] [place] [address] 07/09/2024 2:00 PM EST Office Visit Pulmonary Medicine, [facility] [address] [place] [address] Huan Branham MD [address] [facility] [address] Health Maintenance Due Date Last Done Comments [...] this encounter Medical Devices Implanted Type Area Furniture Repairer Device Identifier Shelf Expiration Date Model / Serial / Lot Shell Acet Trident Ii 50mm - [id number] Implanted:Qty: 1 on 12/05/2020 by Rodolfo Park DO at OR [facility] Right: Hip KANDICE : ORTHOPAEDICS 09/04/2024 702-04-50D / / [id number] Trident Acetabular X3 0 36 D - [id number] Implanted:Qty: 1 on 12/05/2020 by Rodolfo Park DO at OR [facility] Right: Hip KANDICE : ORTHOPAEDICS 09/14/2025 723-00-36D / / [id number] Hip Hd Perry Hummel 36/ 25 - [id number] Implanted:Qty: 1 on 12/05/2020 by Rodolfo Park DO at OR [facility] Right: Hip KANDICE : ORTHOPAEDICS 10/03/2025 6570-0-436 / / [id number] Accolade Ii 127 Deg Sz 4 - [id number] Implanted:Qty: 1 on 12/05/2020 by Rodolfo Park, at OR [facility] Right: Hip KANDICE : ORTHOPAEDICS 11/07/2025 4315-7517 / / [id number] documented as of this encounter Advance Directives [...] patient have Health Care Power of Air Sampler? Yes, not currently available Care Teams Manager Family Relationship Specialty Start Date End Date Roseann Plummer MD [address] [place] [address] PCP - General Internal Medicine 11/05/22 documented as of this encounter
--- OUTSIDE RECORDS SUMMARY | 2024-08-30 22:34 | External Medical Summary | Summary of Care ---
Author Name Unknown Organization [facility] Address [address] [place] [address] Phone [phone] Care Team Providers Care Machine Specialist Name Role Phone Roseann Plummer MD Primary Care Provider Reason for Referral * Precert (Within 10 days (routine)) - Authorized Specialty Diagnoses / Procedures Referred By Contac t Referred To Contact Radiology Diagnoses Multiple subsegmental pulmonary emboli without acute cor pulmonale (HCC) Procedures CT PULMONARY EMBOLUS W CONTRAST Huan Sanz MD [address] [facility] [place] [address] Phone: tel: fax: Referral ID Status Reason Start Date Expiration Date V isits Requested Visits Authorized [id number] Authorized 07/01/2024 999 999 Reason for Visit * Reason Onset Date Comments Order Request 06/30/2024 Re: CT angio bee st with contrast/auth Encounter Details Date Type Department Care Team (Late st Contact Info) Description 06/30/2024 Telephone Access Center, [address] *DO NOT REMOVE THIS DEPARTMENT* [place] [id number] Services, Scheduling [address] [place] [address] Order Request (Re: CT angio chest with con... Allergies Active Allergy Reactions Criticality Noted Date Comments Buspirone Rash 11/01/2022 documented as of this encounter (statuses as of 07/01/2024) Medications methADONE 10 MG Tablet Take 1 [...] as of this encounter (statuses as of 07/01/2024) Active Problems Problem Noted Date Diagnosed Date [...] as of this encounter (statuses as of 07/01/2024) Resolved Problems Problem Noted Date Diagnosed Date Resolved Date Chronic kidney disease, stage 3a 10/08/2022 03/01/2023 Overview: Per CKD protocol Substance abuse 05/25/2022 03/01/2023 Thrombocytopenia 05/25/2022 09/06/2023 Food insecurity 05/07/2022 05/14/2024 Overview: Per [facility] Protocol Food insecurity 03/06/2021 01/11/2022 Overview: Per [facility] Protocol documented as of this encounter (statuses as of 07/01/2024) Immunizations Name Administration Dates Next Due Pneumococcal [...] Assessment Author No 12/05/2020 2:35 PM EDT Marceal Rodriguez RN * Do you have serious [...] Telephone Encounter - Brandy Ba LPN - 07/01/2024 2:12 PM EST Duplicate encounter. Orders faxed to [facility] this morning. Pt is aware. * Addendum Note - Huan Sanz MD - 06/30/2024 4:20 PM ESTAddended by: HUAN SANZ on: 06/30/2024 04:20 PM Modules accepted: Orders * Telephone Encounter - Huan Sanz MD - 06/30/2024 4:19 PM EST New order for CT PE study and creatinine lab work placed in chart. * Telephone Encounter - Kay Berkowitz OSA - 06/30/2024 10:09 AM EST Pt is calling and needs new orders and auth for pt to receive CT ango chest scan with contrast. Please send to [facility] [phone] documented in this encounter Plan of Treatment Upcoming Encounters Date Type Department Care Team (Late st Contact Info) Description 07/08/2024 11:40 AM EST Office Visit Family Practice [facility] [address] [facility] [place] [id number] Roseann Plummer MD [address] [facility] [place] [phone] 07/09/2024 2:00 PM EST Office Visit Pulmonary Medicine, [facility] [address] [facility] [place] [id number] Huan Sanz MD [address] [place] [id number] Scheduled Orders Name Type Priority Associated Diagnoses Orde r Schedule CT PULMONARY EMBOLUS W CONTRAST Medical Imaging Routine Multiple subsegmental pulmonary emboli without acute cor pulmonale (HCC) Expected: 07/01/2024, Expires: 07/31/2025 CREATININE Lab Routine Multiple subsegmental pulmonary emboli without acute cor pulmonale (HCC) Expected: 06/30/2024, Expires: 06/30/2025 Health Maintenance Due Date Last Done Comments [...] this encounter Medical Devices Implanted Type Area Soap Inspector Device Identifier Shelf Expiration Date Model / Serial / Lot Shell Acet Trident Ii 50mm - [id number] Implanted:Qty: 1 on 12/05/2020 by Rodolfo Park, DO at OR [facility] Right: Hip [employer]ICE : [employer] 09/04/2024 [id number] / / [id number] Trident Acetabular X3 0 36 D - [id number] Implanted:Qty: 1 on 12/05/2020 by Rodolfo Park DO at OR [facility] Right: Hip [employer] : [employer] 09/14/2025 [id number] / / [id number] Hip Hd Perry Hummel 36/ 25 - [id number] Implanted:Qty: 1 on 12/05/2020 by Rodolfo Park DO at OR [facility] Right: Hip [employer] : [employer] 10/03/2025 [id number] / / [id number] Accolade Ii 127 Deg Sz 4 - [id number] Implanted:Qty: 1 on 12/05/2020 by Rodolfo Park DO at OR [facility] Right: Hip [employer] : [employer] 11/07/2025 [id number] / / [id number] documented as of this encounter Visit Diagnoses Diagnosis Multiple subsegmental pulmonary emboli without acute cor pulmonale (HCC)- Primary documented [...] the patient have Health Care Power of Soil Technician? Yes, not currently available Care Teams Machine Specialist Relationship Specialty Start Date End Date Roseann Plummer MD [address] [facility] [place] [id number] PCP - General Internal Medicine 11/05/22 documented as of this encounter
--- OUTSIDE RECORDS SUMMARY | 2024-08-30 22:34 | External Medical Summary | Summary of Care ---
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 [phone] Pulmonary embolism, other, unspecified chronicity, unspecified whether acute cor pulmonale present (HCC)*; Chronic respiratory failure with hypoxia (HCC) Allergies Active Allergy Reactions Criticality Noted Date Comments Buspirone Rash 11/01/2022 documented as of this encounter (statuses as of 07/02/2024) Medications methADONE 10 MG Tablet Take 1 Tablet by mouth once. 100mg daily Active Bisacodyl 5 MG Oral Tablet Delayed Release (Dulcolax) Take 1 Tablet by mouth daily as needed for Constipation . 30 Tablet 03/08/20 23 Active oxygen IN GAS Use 3 L/min(Oxygen ) as directed continuous. Active Albuterol Sulfate 0.63 MG/3ML Inhalation Nebulization Solution (Accuneb) Inhale 1 Vial via nebulizer every 6 hours as needed for Wheezing or Shortness of Breath. 360 mL 10/07/19 24 Active Beet Root 500 MG Oral Capsule Take by mouth. Active Multivitamins Oral Capsule Take 1 Capsule by mouth in the morning. Active Nicotine 7 MG/24HR Transdermal Patch 24 Hour (Nicoderm CQ)Indications: Tobacco use disorder APPLY 1 PATCH TOPICALLY DAILY 28 Patch 5 12/16/19 24 Active Nicotine 14 MG/24HR Transdermal Patch 24 Hour (Nicoderm CQ)Indications: Tobacco use disorder Place 1 Patch over 24 hours topically on the skin daily. 28 Patch 5 12/16/19 24 Active DULoxetine HCl 30 MG Oral Capsule Delayed Release Particles (Cymbalta)Indic ations:Mood disorder (HCC) Take 1 Capsule by mouth in the morning. Every morning.. 90 Capsule 3 01/01/20 24 Active Metoprolol Succinate ER 25 MG Oral Tablet Extended Release 24 Hour (toPROL XL)Indications: HTN, goal below 130/80 take 1 tablet by mouth twice a day 180 Tablet 2 01/01/20 24 Active Albuterol Sulfate HFA 108 (90 Base) MCG/ACT Inhalation Aerosol SolutionIndicat ions:Cough INHALE 2 PUFFS BY MOUTH EVERY 6 HOURS NEEDED FOR COUGH 18 g 5 11/19/19 23 024 Discontinued(Re fill) Clobetasol Propionate 0.05 % External Cream (Temovate)Indic ations:Psoriasi s vulgaris Apply to rash on buttocks and thighs twice daily for 2 weeks 60 g 5 05/02/20 23 024 Discontinued(Re fill) amLODIPine Besylate 10 MG Oral Tablet (Norvasc)Indica tions:HTN, goal below 130/80 take 1 tablet by mouth every morning 90 Tablet 3 10/20/19 24 024 Discontinued(Re fill) Furosemide 40 MG Oral Tablet (Lasix) take 1 tablet by mouth every morning 90 Tablet 1 11/04/19 24 024 Discontinued(Re fill) Pantoprazole Sodium 40 MG Oral Tablet Delayed Release (Protonix) take 1 tablet by mouth every morning 90 Tablet 1 11/04/19 24 024 Discontinued(Re fill) Ferrous Gluconate 324 (38 Fe) MG Oral Tablet Take 1 Tablet by mouth daily with breakfast. 30 Tablet 2 11/13/19 24 024 Discontinued(Re fill) Eliquis 5 MG Oral Tablet (Apixaban) take 1 tablet by mouth every morning and BEFORE BEDTIME 180 Tablet 1 11/19/19 24 024 Discontinued Folic Acid 1 MG Oral Tablet Take 1 Tablet by mouth in the morning. 11/26/19 24 024 Discontinued(Re fill) Potassium Chloride ER 20 MEQ Oral Tablet Extended ReleaseIndicati ons:Hypokalemia Take 1 Tablet by mouth 2 times a day. 60 Tablet 5 12/16/19 24 024 Discontinued(Re fill) Magnesium Oxide 400 MG Oral TabletIndicatio ns:Hypomagnesem ia Take 1 Tablet by mouth at bedtime. 30 Tablet 11 12/18/19 24 024 Discontinued diazePAM 5 MG Oral Tablet (Valium)Indicat ions:Situationa l anxiety Take 1 tab by mouth 45-[address] scan. Do not mix with alcohol. Do not drive. 2 Tablet 01/07/20 24 024 Discontinued(Re fill) Umeclidinium-Vi lanterol 62.5-25 MCG/ACT Inhalation Aerosol Powder Breath Activated (ANORO ellipta) Inhale 1 Puff by mouth in the morning. 60 Blister Dosing Unit 2 01/16/20 24 Hospital, Clinic, or Other Facility Administered Medication Ordered Dose Route Frequency Start Date End Date Status Albuterol Sulfate (Proventil) (2.5 MG/3ML) 0.083% inhalation solution 2.5 mgIndications:COPD, mild (HCC) 2.5 mg NEBULIZER PRN 10/11/2022 Active documented as of this encounter (statuses as of 07/02/2024) Active Problems Problem Noted Date Diagnosed Date [...] as of this encounter (statuses as of 07/02/2024) Resolved Problems Problem Noted Date Diagnosed Date Resolved Date Chronic kidney disease, stage 3a 10/08/2022 03/01/2023 Overview: Per CKD protocol Substance abuse 05/25/2022 03/01/2023 Thrombocytopenia 05/25/2022 09/06/2023 Food insecurity 05/07/2022 05/14/2024 Overview: Per [facility] Protocol Food insecurity 03/06/2021 01/11/2022 Overview: Per [facility] Protocol documented as of this encounter (statuses as of 07/02/2024) Immunizations Name Administration Dates Next Due Pneumococcal [...] AM EDT documented as of this encounter Last Filed Vital Signs Vital Sign Reading Time Taken Comments Blood Pressure 124/78 01/16/2024 11:12 AM EDT Pulse 84 01/16/2024 11:12 AM EDT Temperature 36.8 C (98.2 F) 01/16/2024 11:12 AM E DT Respiratory Rate 18 01/16/2024 11:12 AM EDT Oxygen Saturation 90% 01/16/2024 11:12 AM EDT Inhaled Oxygen Concentration - - Weight 94.8 kg (209 lb) 01/16/2024 11:12 AM EDT Height 172.7 cm (5' 8") 01/16/2024 11:12 AM EDT Body Mass Index 31.78 01/16/2024 11:12 AM EDT documented in this encounter Functional Status * Are you [...] Marcela Rodriguez RN documented in this encounter Progress Notes * Huan Sanz MD - 01/16/2024 11:44 AM EDT 01/16/2024 Pulmonary Medicine, [facility] [address] [place] [id number] Bhumika Flores 1965 female 58 year old Attending Physician Documentation: 58-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 Awaiting clearance for upcoming eye surgery for cataracts. Pt is CLEARED for proposed Ophthalmic intervention with moderate risk for cardiopulmonary complications. Benefit outweighs the risk. Eliquis therapy status was discussed. Patient had been diagnosed with pulmonary embolism in August 2022. Has been maintained on Eliquis therapy since that time. Requesting reassessment for ongoing need regarding maintenance anticoagulation therapy. We would proceed with CT PE reassessment along with D- dimer and lower extremity duplex study. Patient will be re-evaluated in 2 months to assess regarding maintenance versus discontinuation of Eliquis therapy. Recently quit smoking 6 months ago, compliant with continuous 3 L nasal cannula oxygen. Describes improving respiratory symptoms, compliant with home oxygen therapy and current bronchodilator regimenincluding Trelegy and rescue albuterol. Denies lower extremity edema. Physical examination significant for class 3 throat, scattered expiratory wheezing, minimal rhonchi, no dullness, regular cardiac rhythm and no evidence of volume overload along with nonlateralizing Neuro examination. Importance of maintaining nonsmoking status was discussed. Importance of avoiding secondhand smoke exposure was also discussed. Recent non contrast CT Chest showed stable status of pulmonary nodules. No new nodules were noted. We will proceed with follow-up CTPE study to reassess clot burden status. LE duplex will be done aswell as D-Dimer. Results will be followed up at 2 months to assess need for maintenance Eliquis vs DC Eliquis therapy. Importance of maintaining physical activity status was discussed. Pulmonary clinic follow-up in 8 weeks . Patient was advised to contact the office with any change in respiratory symptoms status. CT Chest Without Contrast; Diagnostic Exam date and time: 01/01/2024 10:00 AM Age: 58 years old Clinical indication: Other nonspecific abnormal finding of lung field; FINDINGS: Lungs: Stable appearing 6 mm micronodularity as well as calcified granuloma at right base. Bilateral linear atelectatic changes are noted. No new acute lobar consolidation. Pleural spaces: Unremarkable. No pneumothorax. No pleural effusion. Heart: Unremarkable. No cardiomegaly. No pericardial effusion. Coronary arteries: Mild coronary atherosclerosis. Lymph nodes: Unremarkable. No enlarged lymph nodes. Vasculature: Mild atherosclerotic changes within the thoracic aorta. Liver: Diffuse hepatic steatosis. Bones/joints: Degenerative changes within the thoracic spine. Soft tissues: Unremarkable. IMPRESSION IMPRESSION: 1. Stable appearing calcified as well as noncalcified pulmonary nodules. 2. Interval development of bilateral linear atelectatic changes. 3. No new acute lobar consolidation. CT Chest Without Contrast; 06/11/2023 Clinical indication: [...] of COPD. There was no significant bronchodilator responsein FVC or FEV1. The TLC (total lung capacity) was normal. The RV and RV/TLC ratio were increased, which may reflect air trapping versus neuromuscular weakness versus suboptimal effort. Clinical correlation is recommended.The single breath carbon monoxide diffusion capacity corrected for hemoglobin was normal. Compared to the prior study on 04/27/2021, the FEV1 and FVC have not changed significantly. 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 Follow Up: Return in about 2 months (around 03/17/2024) for Clinic Visit. | For: Clinic Visit | Check-out note: Benefit outweighs the risk. 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 (1) I get short of breath when hurrying on level ground How frequently do you cough? (2) Do you have phlegm in your chest? (3) Is your chest tight? (4) How breathless do you become when walking up a hill or steps? (4) How limited are you doing activities at home? (3) How confident are you leaving home with your lung condition? (2) How soundly do you sleep? (4) How much energy do you have? (3) Total MMRC Score (range: 0 - 4) 1 Total CAT Score (range: 0 - 40) 25 [facility] Visit Accident Related Question Question 01/15/2024 4:02 PM EDT - Filed by Patient Is this visit related to an accident? (i.e work, motor vehicle) No Objective Filed Vitals: 01/16/24 1112 BP: 124/78 Pulse: 84 Resp: 18 Temp: 36.8 C (98.2 F) TempSrc: Tympanic SpO2: 90% Weight: 94.8 kg (209 lb) Height: 1.727 m (5' 8") Exam: Const: [...] No edema of the lower limbs bilaterally. Skin: Skin is warm and dry. Neuro: Coordination normal. No involuntary movement. Psych: Patient's attitude is cooperative. Mood is normal. Affect is normal. Tests reviewed with the patient: CT CHEST WO CONTRAST Result Date: 01/05/2024 IMPRESSION: 1. Stable appearing calcified as well as noncalcified pulmonary nodules. 2. Interval development of bilateral linear atelectatic changes. 3. No new acute lobar consolidation. THIS DOCUMENT HAS BEEN ELECTRONICALLY SIGNED BY MENDEZ BAKER MD Available Radiologic data was reviewed by me in PACS. The images were shown to the patient and findings were discussed with the patient. HOME MEDICATIONS: Umeclidinium-Vilanterol 62.5-25 MCG/ACT Inhalation Aerosol Powder Breath Activated (ANORO ellipta) diazePAM 5 MG Oral Tablet (Valium) DULoxetine HCl 30 MG Oral Capsule Delayed Release Particles (Cymbalta) Metoprolol Succinate ER 25 MG Oral Tablet Extended Release 24 Hour (toPROL XL) Magnesium Oxide 400 MG Oral Tablet Beet Root 500 MG Oral Capsule Multivitamins Oral Capsule Nicotine 14 MG/24HR Transdermal Patch 24 Hour (Nicoderm CQ) Nicotine 7 MG/24HR Transdermal Patch 24 Hour (Nicoderm CQ) Potassium Chloride ER 20 MEQ Oral Tablet Extended Release Eliquis 5 MG Oral Tablet (Apixaban) Ferrous Gluconate 324 (38 Fe) MG Oral Tablet Furosemide 40 MG Oral Tablet (Lasix) amLODIPine Besylate 10 MG Oral Tablet (Norvasc) Albuterol Sulfate 0.63 MG/3ML Inhalation Nebulization Solution (Accuneb) Bisacodyl 5 MG Oral Tablet Delayed Release (Dulcolax) Albuterol Sulfate HFA 108 (90 Base) MCG/ACT Inhalation Aerosol Solution methADONE 10 MG Tablet Folic Acid 1 MG Oral Tablet Pantoprazole Sodium 40 MG Oral Tablet Delayed Release (Protonix) oxygen IN GAS Clobetasol Propionate 0.05 % External Cream (Temovate) Albuterol Sulfate (Proventil) (2.5 MG/3ML) 0.083% inhalation [...] kidney disease) COPD (chronic obstructive pulmonary disease) ([facility]) COPD, group C, by GOLD 2017 classification ([facility]) 10/09/2021 Per COPD GOLD Classification HTN, goal below 130/80 05/04/2020 Methadone use Nodule of right lung 05/25/2022 Obesity Pneumonia Pulmonary emboli ([facility]) Recurrent major depressive disorder ([facility]) 09/20/2021 Substance abuse ([facility]) Thrombocytopenia ([facility]) 05/25/2022 Tobacco use disorder 11/22/2020 Past Surgical History: Procedure Laterality Date TOTAL HIP REPLACEMENT & PROSTHESIS Right 12/05/2020 ROBOTIC ARTHROPLASTY TOTAL HIP performed by Rodolfo Park DO at OR [facility] Social History Socioeconomic History Marital status: Tobacco Use Smoking status: Former Current packs/day: 0.00 Average packs/day: 2.0 packs/day for 42.1 years (84.1 ttl pk-yrs) Types: Cigarettes, Vaporizer Start date: 1979 Quit date: 08/23/2023 Years since quittin.4 Smokeless tobacco: Never Vaping Use Vaping status: Former Substance and Sexual Activity Alcohol use: Not Currently Drug use: Not Currently Types: Heroin Comment: currently on methadone Social History Narrative 1 dog in her home. No mold. Social Determinants of Health Financial Resource Strain: High Risk (08/30/2023) Financial Resource Strain Do you have any trouble paying for your medications, or do you think you might in the future? (Adult - for ages 18 years and over): Yes Food Insecurity: No Food Insecurity (08/30/2023) Food Insecurity Do you need food for this week? (Adult - for ages 18 years and over): No Recent Concern: Food Insecurity - Food Insecurity Present (08/30/2023) Hunger Vital Sign Worried About Running Out of Food in the Last Year: Never true Ran Out of Food in the Last Year: Sometimes true Transportation Needs: Unmet Transportation Needs (08/30/2023) Transportation Needs Do you have trouble getting a ride to medical visits or work? (Adult - for ages 18 years and over):Sometimes True Social Connections: Socially Integrated (08/30/2023) Social Connections How often do you feel lonely or isolated from those around you? (Adult - for ages 18 years and over): Never Housing Stability: Low Risk (08/30/2023) Housing Stability Do you currently live in a custodial or have no steady place to sleep at night? (Adult - for ages 18 years and over): No Do you think you are at risk of becoming homeless? 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 (1) I get short of breath when hurrying on level ground How frequently do you cough? (2) Do you have phlegm in your chest? (3) Is your chest tight? (4) How breathless do you become when walking up a hill or steps? (4) How limited are you doing activities at home? (3) How confident are you leaving home with your lung condition? (2) How soundly do you sleep? (4) How much energy do you have? (3) Total MMRC Score (range: 0 - 4) 1 Total CAT Score (range: 0 - 40) 25 [facility] Visit Accident Related Question Question 01/15/2024 4:02 PM EDT - Filed by Patient Is this visit related to an accident? (i.e work, motor vehicle) No documented in this encounter Miscellaneous Notes * Addendum Note - Huan Sanz MD - 07/02/2024 4:33 PM ESTAddended by: HUAN SANZ on: 07/02/2024 04:33 PM Modules accepted: Orders documented in this encounter Plan of Treatment Upcoming Encounters Date Type Department Care Team (Late st Contact Info) Description 07/08/2024 11:40 AM EST Office Visit Family Practice [address] [place] [phone] Roseann Plummer MD [address] [facility] [place] [phone] 07/09/2024 2:00 PM EST Office Visit Pulmonary Medicine, [facility] [address] [facility] [place] [address] Huan Sanz MD [address] [place] [phone] Health Maintenance Due Date Last Done Comments [...] this encounter Medical Devices Implanted Type Area Billing And Insurance Coordinator Device Identifier Shelf Expiration Date Model / Serial / Lot Shell Acet Trident Ii 50mm - [id number] Implanted:Qty: 1 on 12/05/2020 by Rodolfo Park, DO at OR [facility] Right: Hip [employer] : [employer] 09/04/2024 [id number] / / [id number] Trident Acetabular X3 0 36 D - [id number] Implanted:Qty: 1 on 12/05/2020 by Rodolfo Park DO at OR [facility] Right: Hip [employer] : [employer] 09/14/2025 [id number] / / [id number] Hip Hd Nk Gavin Hummel 36/ 25 - [id number] Implanted:Qty: 1 on 12/05/2020 by Rodolfo Park DO at OR [facility] Right: Hip [employer] : [employer] 10/03/2025 [id number] / / [id number] Accolade Ii 127 Deg Sz 4 - [id number] Implanted:Qty: 1 on 12/05/2020 by Rodolfo Park DO at OR [facility] Right: Hip [employer] : [employer] 11/07/2025 [id number] / / [id number] documented as of this encounter Results * VASC DUPLEX VENOUS LE BILAT (06/23/2024 1:43 PM EST) Anatomical Region Laterality Modality Lower Extremity, Vascular Ultras ound 06/23/2024 2:06 PM EST Impressions 06/23/2024 2:03 PM EST IMPRESSION: No ultrasound evidence of deep venous thrombosis right and left lower extremity as discussed. Narrative 06/23/2024 2:03 PM EST EXAM: VASC DUPLEX VENOUS LE BILAT HISTORY: Pulmonary embolism. Deep venous thrombosis. TECHNIQUE: Real-time scanning, color-flow imaging and Doppler spectral analysis is performed of the deep venous system both right and left lower extremity. Deep venous structures demonstrated include common femoral vein, femoral vein, popliteal vein, proximal aspect peroneal vein and proximal aspect posterior tibial vein bilaterally. Also imaged is proximal most aspect each greater saphenous vein near junction with deep system. COMPARISON: None available FINDINGS: The deep veins studied bilaterally demonstrate evidence of appropriate venous flow with respiratory phasicity. There is no demonstrable internal echogenicity and the deep veins studies demonstrate appropriate response to compression with complete coaptation of damon. There is also appropriate response to augmentation identified within the deep veins demonstrated. Procedure Note Doc Gomez MD - 06/23/2024 EXAM: VASC DUPLEX VENOUS LE BILAT HISTORY: Pulmonary embolism. Deep venous thrombosis. TECHNIQUE: Real-time scanning, color-flow imaging and Doppler spectral analysis isperformed of the deep venous system both right and left lower extremity. Deep venous structures demonstrated include common femoral vein, femoralvein, popliteal vein, proximal aspect peroneal vein and proximal aspectposterior tibial vein bilaterally. Also imaged is proximal most aspect each greater saphenous vein nearjunction with deep system. COMPARISON: None available FINDINGS: The deep veins studied bilaterally demonstrate evidence of appropriatevenous flow with respiratory phasicity. There is no demonstrable internal echogenicity and the deep veins studiesdemonstrate appropriate response to compression with complete coaptationof damon. There is also appropriate response to augmentation identified within thedeep veins demonstrated. IMPRESSION IMPRESSION: No ultrasound evidence of deep venous thrombosis right and left lowerextremity as discussed. Huan Sanz MD RAD VASCULAR Final Result * D-DIMER (01/20/2024 10:03 AM EDT) D-Dimer 0.29 <0.50 ug/mL FEU 01/20/2024 9:42 PM EDT [facility] [place] Venous blood specimen / Unknown Venipuncture / Unknown 01/20/2024 10:03 AM EDT 01/20/2024 10:03 AM EDT Narrative [facility] - 01/20/2024 9:42 PM EDT Rheumatoid factor at a level above 50 IU/mL may lead to an overestimation of the D-dimer level. A normal D-dimer result (<0.50 ug/mL FEU) has a negative predictive value of approximately 95% for the exclusion of acute pulmonary embolism (PE) or deep vein thrombosis when there is low or moderate pretest PE probability. Increased D-dimer values are abnormal but do not indicate a specific disease state and the D-dimer increase does not definitively correlate with clinical severity of disease. us Huan Sanz MD LAB BLOOD ORDERABLES F inal Result [facility] [address] [facility] [place] [id number] documented in this encounter Visit Diagnoses Diagnosis Pulmonary embolism, other, unspecified chronicity, unspecified whether acute cor pulmonale present (HCC)- Primary Chronic respiratory failure with hypoxia (HCC) Chronic respiratory failure Pulmonary embolism, other, unspecified chronicity, unspecified whether acute cor pulmonale present (HCC) documented in this encounter Advance Directives [...] the patient have Health Care Power of Sales Driver? Yes, not currently available Care Teams Support Manager Relationship Specialty Start Date End Date Roseann Plummer MD [address] [facility] [place] [id number] PCP - General Internal Medicine 11/05/22 documented as of this encounter
--- OUTSIDE RECORDS SUMMARY | 2024-08-30 22:34 | External Medical Summary | Summary of Care ---
Author Name Unknown Organization [facility] Address [address] [place] [address] Phone [phone] Care Team Providers Care Ammonia Nitrate Operator Name Role Phone Roseann Plummer MD Primary Care Provider Reason for Visit * Reason Onset Date Comments Advice 06/30/2024 Encounter Details Date Type Department Care Team ([facility] st Contact Info) Description 06/30/2024 Telephone Access Center, [address] *DO NOT REMOVE THIS DEPARTMENT* [place] [address] Services, Scheduling [address] [place] [address] Advice Allergies Active Allergy Reactions Criticality Noted [...] Telephone Encounter - Brandy Ba LPN - 06/30/2024 10:35 AM EST Duplicate message. * Telephone Encounter - Kay Berkowitz OSA - 06/30/2024 9:54 AM EST Pt's ins needs to be sent over to [facility] so she can have a CT scan done. Please fax [phone] documented in this encounter Plan of Treatment Upcoming Encounters Date Type Department Care Team (Late st Contact Info) Description 07/08/2024 11:40 AM EST Office Visit Family Practice [facility] [address] [place] [address] Roseann Plummer MD [address] [place] [address] 07/09/2024 2:00 PM EST Office Visit Pulmonary Medicine, [facility] [address] [place] [address] Huan Branham MD 217 [...] this encounter Medical Devices Implanted Type Area [place] Cutter Device Identifier Shelf Expiration Date Model / Serial / Lot Shell Acet Trident Ii 50mm - [id number] Implanted:Qty: 1 on 12/05/2020 by Rodolfo Park DO at OR [facility] Right: Hip KANDICE : ORTHOPAEDICS 09/04/2024 702-04-50D / / [id number] Trident Acetabular X3 0 36 D - [id number] Implanted:Qty: 1 on 12/05/2020 by Rodolfo Park, DO at OR [facility] Right: Hip KANDICE : ORTHOPAEDICS 09/14/2025 723-00-36D / / [id number] Hip Hd Perry Alonso Md D 36/ 25 - [id number] Implanted:Qty: 1 on 12/05/2020 by Rodolfo Park DO at OR [facility] Right: Hip KANDICE : ORTHOPAEDICS 10/03/2025 6570-0-436 / / [id number] Accolade Ii 127 Deg Sz 4 - [id number] Implanted:Qty: 1 on 12/05/2020 by Rodolfo Park DO at OR [facility] Right: Hip KANDICE : ORTHOPAEDICS 11/07/2025 [id number] / / [id number] documented as of this encounter Advance Directives [...] the patient have Health Care Power of Link Knitting Machine Operator? Yes, not currently available Care Teams Ammonia Nitrate Operator Relationship Specialty Start Date End Date Roseann Plummer MD [address] [address] PCP - General Internal Medicine 11/05/22 documented as of this encounter
--- OUTSIDE RECORDS SUMMARY | 2024-08-30 22:34 | External Medical Summary | Summary of Care ---
Author Name Unknown Organization [facility] Address [address] [place] [address] Phone [phone] Care Team Providers Care Senior Product Development Scientist Name Role Phone Roseann Plummer MD Primary Care Provider Reason for Referral * Precert (Within 10 days (routine)) - Authorized Specialty Diagnoses / Procedures Referred By Contac t Referred To Contact Radiology Diagnoses Multiple subsegmental pulmonary emboli without acute cor pulmonale (HCC) Procedures CT PULMONARY EMBOLUS W CONTRAST Huan Sanz MD [address] [place] [facility] [place] [address] Phone: tel: fax: Referral ID Status Reason Start Date Expiration Date V isits Requested Visits Authorized [id number] Authorized 07/01/2024 999 999 Reason for Visit * Reason Onset Date Comments Order Request 06/30/2024 Re: CT angio bee st with contrast/auth Encounter Details Date Type Department Care Team ([facility] st Contact Info) Description 06/30/2024 Telephone Access Center, [address] *DO NOT REMOVE THIS DEPARTMENT* [place] [address] Services, Scheduling [address] [place] [address] Order Request (Re: CT angio chest with [...] MD - 06/30/2024 4:20 PM ESTAddended by: HUNA SANZ on: 06/30/2024 04:20 PM Modules accepted: [...] chest scan with contrast. Please send to [facility] [phone] documented in this encounter Plan of Treatment Upcoming Encounters Date Type Department Care Team (Late st Contact Info) Description 07/08/2024 11:40 AM EST Office Visit Family Practice [facility] 132 [facility] [place] [address] Roseann Plummer MD 132 [facility] [place] [address] 07/09/2024 2:00 PM EST Office Visit Pulmonary Medicine, [facility] 132 [facility] [place] [address] Huan Sanz MD [address] [facility] [address] Scheduled Orders Name Type Priority Associated Diagnoses [...] this encounter Medical Devices Implanted Type Area Clipman Device Identifier Shelf Expiration Date Model / Serial / Lot Shell Acet Trident Ii 50mm - [id number] Implanted:Qty: 1 on 12/05/2020 by Rodolfo Park DO at OR [facility] Right: Hip KANDICE : ORTHOPAEDICS 09/04/2024 702-04-50D / / [id number] Trident Acetabular X3 0 36 D - [id number] Implanted:Qty: 1 on 12/05/2020 by Rodolfo Park DO at OR [facility] Right: Hip KANDICE : ORTHOPAEDICS 09/14/2025 723-00-36D / / [id number] Hip Hd Perry Hummel 36/ 25 - [id number] Implanted:Qty: 1 on 12/05/2020 by Rodolfo Park DO at OR [facility] Right: Hip KANDICE : ORTHOPAEDICS 10/03/2025 6570-0-436 / / [id number] Accolade Ii 127 Deg Sz 4 - [id number] Implanted:Qty: 1 on 12/05/2020 by Rodolfo Park DO at OR [facility] Right: Hip KANDICE : ORTHOPAEDICS 11/07/2025 [id number] / / [id number] documented as of this encounter Visit Diagnoses [...] the patient have Health Care Power of Appointment Manager? Yes, not currently available Care Teams Senior Product Development Scientist Relationship Specialty Start Date End Date Roseann Plummer MD [address] [address] [address] PCP - General Internal Medicine 11/05/22 documented as of this encounter
--- OUTSIDE RECORDS SUMMARY | 2024-08-30 22:34 | External Medical Summary | Summary of Care ---
Author Name Unknown Organization [facility] Address [address] [place] [address] Phone [phone] Care Team Providers Care Pit Tanner Name Role Phone Roseann Plummer MD Primary Care Provider Reason for Visit * Reason Comments Follow Up COPD Lung Nodule Dependence on O2 Encounter Details Date Type Department Care Team (Late st Contact Info) Description 01/16/2024 11:40 AM EDT Office Visit Pulmonary Medicine, [facility] 132 [facility] [place] [address] Huan Sanz MD [address] [facility] [id number] Pulmonary embolism, other, unspecified chronicity, unspecified whether [...] 01/16/2024 11:44 AM EDT 01/16/2024 Pulmonary Medicine, [facility] [address] [place] [id number] Bhumika Flores 1965 female 58 year old Attending Physician Documentation: 58-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 COPD with Chronic hypoxic respiratory status on 3 L cont home oxygen Hx of PE 08/2022, [facility] Eliquis therapy status since 08/2022 Hx of [...] 93% Abulation: 90% Interm History/Respiratory Symptoms Cough: sro-dbyknsoadz-woiujw Hemoptysis: no Sinus Symptoms: no Hospitalizations: no [...] CAT Score (range: 0 - 40) 25 [facility] [place] Related Question [...] kidney disease) COPD (chronic obstructive pulmonary disease) ([facility]) COPD, group C, by GOLD 2017 classification ([facility]) 10/09/2021 Per COPD GOLD Classification HTN, goal below 130/80 05/04/2020 Methadone use Nodule of right lung 05/25/2022 Obesity Pneumonia Pulmonary emboli ([facility]) Recurrent major depressive disorder ([facility]) 09/20/2021 Substance abuse ([facility]) Thrombocytopenia ([facility]) 05/25/2022 Tobacco use disorder 11/22/2020 Past Surgical History: Procedure Laterality Date TOTAL HIP REPLACEMENT & PROSTHESIS Right 12/05/2020 ROBOTIC ARTHROPLASTY TOTAL HIP performed by Rodolfo Park DO at OR [facility] Social History Socioeconomic History Marital status: [...] Stability Do you currently live in a senior living or have no steady place to sleep [...] 93% Abulation: 90% Interm History/Respiratory Symptoms Cough: yjx-aemlcsljii-grxyet Hemoptysis: no Sinus Symptoms: no Hospitalizations: no [...] 11:40 AM EST Office Visit Family Practice [address] [place] [address] Roseann Plummer MD 132 [facility] [place] [address] 07/09/2024 2:00 PM EST Office Visit Pulmonary Medicine, [facility] 132 [facility] [place] [address] Huan Sanz MD [address] [address] [phone] Health Maintenance Due Date Last Done Comments [...] this encounter Medical Devices Implanted Type Area Surface Water Technician Device Identifier Shelf Expiration Date Model / Serial / Lot Shell Acet Trident Ii 50mm - [id number] Implanted:Qty: 1 on 12/05/2020 by Rodolfo Pakr, DO at OR [facility] Right: Hip KANDICE : ORTHOPAEDICS 09/04/2024 702-04-50D / / [id number] Trident Acetabular X3 0 36 D - [id number] Implanted:Qty: 1 on 12/05/2020 by Rodolfo Park DO at OR [facility] Right: Hip KANDICE : ORTHOPAEDICS 09/14/2025 723-00-36D / / [id number] Hip Hd Nk Gavin Hummel 36/ 25 - [id number] Implanted:Qty: 1 on 12/05/2020 by Rodolfo Park DO at OR [facility] Right: Hip KANDICE : ORTHOPAEDICS 10/03/2025 6570-0-436 / / [id number] Accolade Ii 127 Deg Sz 4 - [id number] Implanted:Qty: 1 on 12/05/2020 by Rodolfo Park DO at OR [facility] Right: Hip KANDICE : ORTHOPAEDICS 11/07/2025 6915-9672 / / [id number] documented as of this encounter Results * [...] ug/mL FEU 01/20/2024 9:[address] [facility] Blood Venous blood specimen / Unknown Venipuncture / Unknown 01/20/2024 10:03 AM EDT 01/20/2024 10:03 AM EDT Narrative [facility] - 01/20/2024 9:42 PM EDT Rheumatoid factor [...] LAB BLOOD ORDERABLES F inal Result [facility] 100 [facility] [place] [address] documented in this encounter Visit Diagnoses Diagnosis [...] patient have Health Care Power of Director Post? Yes, not currently available Care Teams Pit Tanner Relationship Specialty Start Date End Date Roseann Plummer MD 132 [facility] [place] [address] PCP - General Internal Medicine 11/05/22 documented as of this encounter
--- OUTSIDE RECORDS SUMMARY | 2024-08-30 22:34 | External Medical Summary | Summary of Care ---
Author Name Unknown Organization [facility] Address [address] [place] [address] Phone [phone] Care Team Providers Care Exhauster Engineer Name Role Phone Roseann Plummer MD Primary Care Provider Reason for Visit * Reason Onset Date Comments Advice 07/03/2024 Encounter Details Date Type Department Care Team ([facility] st Contact Info) Description 07/03/2024 Telephone Access Center, [address] *DO NOT REMOVE THIS DEPARTMENT* [place] [address] Services, Scheduling [address] [place] [address] Advice Allergies Active Allergy Reactions Criticality Noted [...] Telephone Encounter - Brandy Ba LPN - 07/03/2024 11:07 AM EST Pt sent message to inform us she is now having the ct done at [facility]. No auth is needed. * Telephone Encounter - Kay Berkowitz OSA - 07/03/2024 8:47 AM EST Pt needs CT scan done but [facility] is calling and stating that they need an auth. Please advise. documented in this encounter Plan of Treatment Upcoming Encounters Date Type Department Care Team (Late st Contact Info) Description 07/06/2024 12:30 PM EST Imaging Radiology [facility] [address] [place] [address] 07/08/2024 11:40 AM EST Office Visit [facility] [place] [address] [facility] [place] [address] Roseann Plummer MD [address] [place] [address] 07/09/2024 2:00 PM EST Office Visit Pulmonary Medicine, [facility] [place] [address] Huan Branham MD [address] [facility] [address] Health Maintenance Due Date Last Done Comments [...] encounter Medical Devices Implanted Type Area Manager Credit Device Identifier Shelf Expiration Date Model / Serial / Lot Shell Acet Trident Ii 50mm - [id number] Implanted:Qty: 1 on 12/05/2020 by Rodolfo Park DO at OR [facility] Right: Hip KANDICE : ORTHOPAEDICS 09/04/2024 702-04-50D / / [id number] Trident Acetabular X3 0 36 D - [id number] Implanted:Qty: 1 on 12/05/2020 by Rodolfo Park DO at OR [facility] Right: Hip KANDICE : ORTHOPAEDICS 09/14/2025 723-00-36D / / [id number] Hip Hd Perry Alonso Md D 36/ 25 - [id number] Implanted:Qty: 1 on 12/05/2020 by Rodolfo Park DO at OR [facility] Right: Hip KANDICE : ORTHOPAEDICS 10/03/2025 6570-0-436 / / [id number] Accolade Ii 127 Deg Sz 4 - [id number] Implanted:Qty: 1 on 12/05/2020 by Rodolfo Park DO at OR [facility] Right: Hip KANDICE : ORTHOPAEDICS 11/07/2025 [id number] / / [id number] documented as of this encounter Advance Directives [...] the patient have Health Care Power of Herbarium Curator? Yes, not currently available Care Teams Exhauster Engineer Relationship Specialty Start Date End Date Roseann Plummer MD [address] [place] [address] PCP - General Internal Medicine 11/05/22 documented as of this encounter
--- OUTSIDE RECORDS SUMMARY | 2024-08-30 22:34 | External Medical Summary | Summary of Care ---
Author Name Unknown Organization [facility] Address [address] [place] [address] Phone [phone] Care Team Providers Care Stretching Machine Operator Name Role Phone Roseann Plummer MD Primary Care Provider Reason for Visit * Reason Onset Date Comments Advice 06/30/2024 Encounter Details Date Type Department Care Team ([facility] st Contact Info) Description 06/30/2024 Telephone Access Center, [address] *DO NOT REMOVE THIS DEPARTMENT* [place] [address] Services, Scheduling [address] [place] [address] Advice Allergies Active Allergy Reactions Criticality Noted [...] have a CT scan done. Please fax [phone] documented in this encounter Plan of Treatment Upcoming Encounters Date Type Department Care Team (Late st Contact Info) Description 07/08/2024 11:40 AM EST Office Visit Family Practice [facility] 132 [facility] [place] [address] Roseann Plummer MD 132 [facility] [place] [address] 07/09/2024 2:00 PM EST Office Visit Pulmonary Medicine, [facility] [address] [place] [address] Huan Branham MD [address] [facility] [place] [address] Health Maintenance Due Date Last Done Comments [...] this encounter Medical Devices Implanted Type Area Retort Setter Device Identifier Shelf Expiration Date Model / Serial / Lot Shell Acet Trident Ii 50mm - [id number] Implanted:Qty: 1 on 12/05/2020 by Rodolfo Park, at OR [facility] Right: Hip KANDICE : ORTHOPAEDICS 09/04/2024 702-04-50D / / [id number] Trident Acetabular X3 0 36 D - [id number] Implanted:Qty: 1 on 12/05/2020 by Rodolfo Park, DO at OR [facility] Right: Hip KANDICE : ORTHOPAEDICS 09/14/2025 723-00-36D / / [id number] Hip Hd Perry Hummel - [id number] Implanted:Qty: 1 on 12/05/2020 by Rodolfo Park, DO at OR [facility] Right: Hip KANDICE : ORTHOPAEDICS 10/03/2025 6570-0-436 / / [id number] Accolade Ii 127 Deg Sz - [id number] Implanted:Qty: 1 on 12/05/2020 by Rodolfo Park, DO at OR [facility] Right: Hip KANDICE : ORTHOPAEDICS 11/07/2025 9471-3503 / / [id number] documented as of this encounter Advance Directives [...] the patient have Health Care Power of Virtual Office Assistant? Yes, not currently available Care Teams Stretching Machine Operator Relationship Specialty Start Date End Date Roseann Plummer MD [address] [place] [address] PCP - General Internal Medicine 11/05/22 documented as of this encounter
--- OUTSIDE RECORDS SUMMARY | 2024-08-30 22:35 | External Medical Summary | Summary of Care ---
Author Name Unknown Organization [facility] Address [address] [place] [address] Phone [phone] Care Team Providers Care Sheet Metal Helper Name Role Phone Roseann Plummer MD Primary Care Provider Encounter Details Date Type Department Care Team (Late st Contact Info) Description 03/13/2024 Telephone Family Practice [facility] [address] [place] [address] Roseann Plummer MD [address] [address] Allergies Active Allergy Reactions Criticality Noted Date Comments Buspirone Rash 11/01/2022 documented as of this encounter (statuses as of 06/12/2024) Medications methADONE 10 MG Tablet Take 1 [...] APPLY 1 PATCH TOPICALLY DAILY 28 Patch 12/16/19 24 Active Nicotine 14 MG/24HR Transdermal Patch 24 Hour (Nicoderm CQ)Indications: Tobacco use disorder Place 1 Patch over 24 hours topically on the skin daily. 28 Patch 12/16/19 24 Active DULoxetine HCl 30 MG Oral Capsule Delayed Release Particles (Cymbalta)Indic ations:Mood disorder (HCC) Take 1 Capsule by mouth in the morning. Every morning.. 90 Capsule 3 01/01/20 24 Active Metoprolol Succinate ER 25 MG Oral Tablet Extended Release 24 Hour (toPROL XL)Indications: HTN, goal below 130/80 take 1 tablet by mouth twice a day 180 Tablet 2 01/01/20 24 Active amLODIPine Besylate 10 MG Oral Tablet (Norvasc)Indica tions:HTN, goal below 130/80 Take 1 Tablet by mouth in the morning. In the morning.. 90 Tablet 3 02/13/20 24 Active Furosemide 40 MG Oral Tablet (Lasix) Take 1 Tablet by mouth in the morning. In the morning.. 90 Tablet 1 02/13/20 24 Active Folic Acid 1 MG Oral Tablet Take 1 Tablet by mouth in the morning. 30 Tablet 11 02/19/20 24 Active Clobetasol Propionate 0.05 % External Cream (Temovate)Indic ations:Psoriasi s vulgaris Apply to rash on buttocks and thighs twice daily for 2 weeks 60 g 5 02/26/20 24 Active oxyCODONE-Aceta minophen 5-325 MG Oral Tablet (Percocet) Take 1 Tablet by mouth every 4 hours as needed for Pain, Moderate. 15 Tablet 03/12/20 24 Active Albuterol Sulfate HFA 108 (90 Base) MCG/ACT Inhalation Aerosol SolutionIndicat ions:Cough INHALE 2 PUFFS BY MOUTH EVERY 6 HOURS NEEDED FOR COUGH 18 g 5 11/19/19 23 024 Discontinued(Re fill) Ferrous Gluconate 324 (38 Fe) MG Oral Tablet Take 1 Tablet by mouth daily with breakfast. 30 Tablet 2 11/13/19 24 024 Discontinued(Re fill) Eliquis 5 MG Oral Tablet (Apixaban) take 1 tablet by mouth every morning and BEFORE BEDTIME 180 Tablet 1 11/19/19 24 Discontinued Potassium Chloride ER 20 MEQ Oral Tablet Extended ReleaseIndicati ons:Hypokalemia Take 1 Tablet by mouth 2 times a day. 60 Tablet 5 12/16/19 24 024 Discontinued(Re fill) Pantoprazole Sodium 40 MG Oral Tablet Delayed Release (Protonix) Take 1 Tablet by mouth in the morning. In the morning.. 90 Tablet 1 02/13/20 24 024 Discontinued(Re fill) Magnesium Oxide 400 MG Oral TabletIndicatio ns:Hypomagnesem ia Take 2 Tablets by mouth at bedtime. 60 Tablet 11 02/28/20 24 024 Discontinued(Re fill) Hospital, Clinic, or Other Facility Administered Medication Ordered Dose Route Frequency Start Date End Date Status Albuterol Sulfate (Proventil) (2.5 MG/3ML) 0.083% inhalation solution 2.5 mgIndications:COPD, mild (HCC) 2.5 mg NEBULIZER PRN 10/11/2022 Active documented as of this encounter (statuses as of 06/12/2024) Active Problems Problem Noted Date Diagnosed Date [...] as of this encounter (statuses as of 06/12/2024) Resolved Problems Problem Noted Date Diagnosed Date Resolved Date Chronic kidney disease, stage 3a 10/08/2022 03/01/2023 Overview: Per CKD protocol Substance abuse 05/25/2022 03/01/2023 Thrombocytopenia 05/25/2022 09/06/2023 Food insecurity 05/07/2022 05/14/2024 Overview: Per [facility] Protocol Food insecurity 03/06/2021 01/11/2022 Overview: Per [facility] Protocol documented as of this encounter (statuses as of 06/12/2024) Immunizations Name Administration Dates Next Due Pneumococcal [...] daily living? Check all that apply. No Do you (or your family) have trouble [...] encounter Miscellaneous Notes * Telephone Encounter - Mana Saldana LPN - 03/16/2024 11:56 AM EDT Script sent to [facility], pt paying out of pocket for script. No need to finish prior auth * Telephone Encounter - Lali Kwan PHARM Tech - 03/13/2024 9:31 AM EDT Pharmacy calling to inform doctor that the patient's insurance will not pay for this medication without a completed prior authorization. Did confirm this information with the pharmacy. Pt's current insurance information is as follows: Patient name: Bhumika Flores ID number: [id number] BIN number: [id number] PCN number: [id number] Group number: [id number] Subscriber name: Bhumika Flores Primary or Secondary Insurance:Primary Medication: oxyCODONE-Acetaminophen 5-325 MG Oral Tablet (Percocet) Reason for Request: Needs a Prior Auth Pharmacy and phone number: [facility] [address] [place] [address] Rx plan and phone number: [employer] [phone] Is this a new medication for the patient? Yes What alternative medications does the pharmacy have in stock?: Thank you, Lali Kwan Photo Specialist [facility] 03/13/2024, 9:31 AM documented in this encounter Plan of Treatment Upcoming Encounters Date Type Department Care Team (Late st Contact Info) Description 06/15/2024 9:20 AM EST Laboratory Laboratory Scenery [facility] [address] [place], [place] [address] [place], Lab Scenery [address] [place] [address] 06/18/2024 11:00 AM EST Imaging Radiology [facility]st [facility] [address] [facility] [place] [address] 06/29/2024 8:20 AM EST Office Visit Pulmonary Medicine, [facility] [address] [facility] [place] [address] [facility] [address] [facility] [address] 07/08/2024 11:40 AM EST Office Visit Family Practice [facility] [address] [facility] [place] [address] Roseann Plummer MD [address] [facility] [place] [address] Health Maintenance Due Date Last Done Comments [...] Additional history exists Albumin/Creatinine Ratio 04/26/2025 04/26/2022 Depression Monitoring 05/20/2025 05/20/2024 Colorectal Cancer Screening 05/26/2025 Fecal Occult Blood Test 05/26/2025 05/26/20 24, 05/26/2024, 04/25/2023, Additional history exists Lipid Panel 11/25/2025 11/25/2020, [...] this encounter Medical Devices Implanted Type Area Printed Circuit Board Panels Developer Device Identifier Shelf Expiration Date Model / Serial / Lot Shell Acet Trident Ii 50mm - [id number] Implanted:Qty: 1 on 12/05/2020 by Rodolfo Park DO at OR [facility] Right: Hip KANDICE : ORTHOPAEDICS 09/04/2024 702-04-50D / / [id number] Trident Acetabular X3 0 36 D - [id number] Implanted:Qty: 1 on 12/05/2020 by Rodolfo Park DO at OR [facility] Right: Hip KANDICE : ORTHOPAEDICS 09/14/2025 723-00-36D / / [id number] Hip Hd Perry Hummel 36/ 25 - [id number] Implanted:Qty: 1 on 12/05/2020 by Rodolfo Park DO at OR [facility] Right: Hip KANDICE : ORTHOPAEDICS 10/03/2025 6570-0-436 / / [id number] Accolade Ii 127 Deg Sz 4 - [id number] Implanted:Qty: 1 on 12/05/2020 by Rodolfo Park DO at OR [facility] Right: Hip KANDICE : ORTHOPAEDICS 11/07/2025 [id number] / / [id number] documented as of this encounter Advance Directives [...] the patient have Health Care Power of Brush Holder Assembler? Yes, not currently available Care Teams Sheet Metal Helper Relationship Specialty Start Date End Date Roseann Plummer MD [address] [place] [address] PCP - General Internal Medicine 11/05/22 documented as of this encounter
--- OUTSIDE RECORDS SUMMARY | 2024-08-30 22:35 | External Medical Summary | Summary of Care ---
Author Name Unknown Organization [facility] Address [address] [place] [address] Phone [phone] Care Team Providers Care Ham Trimmer Name Role Phone Moi Plummer MD Primary Care Provider Reason for Visit * Reason Onset Date Comments Medication Refill 06/08/2024 Encounter Details Date Type Department Care Team ([facility] st Contact Info) Description 06/08/2024 Refill Family Practice [facility] [address] [place] [address] Moi Plummer MD [address] [place] [address] Hypokalemia; Hypomagnesemia; Situational anxiety Allergies Active Allergy Reactions Criticality Noted Date Comments Buspirone Rash 11/01/2022 documented as of this encounter (statuses as of 06/10/2024) Medications methADONE 10 MG Tablet Take 1 [...] Do not drive. 2 Tablet 4 Active Potassium Chloride ER 20 MEQ Oral Tablet Extended ReleaseIndicatio ns:Hypokalemia Take 1 Tablet by mouth 2 times a day. 60 Tablet 5 4 06/08/20 24 Discontin ued(Refil l) Magnesium Oxide 400 MG Oral TabletIndication s:Hypomagnesemia Take 2 Tablets by mouth at bedtime. 60 Tablet 11 4 06/08/20 24 Discontin ued(Refil l) diazePAM 5 MG Oral Tablet (Valium)Indicati ons:Situational anxiety Take 1 tab by mouth 45-[address] scan. Do not mix with alcohol. Do not drive. 2 Tablet 4 06/08/20 24 Discontin ued(Refil l) Hospital, Clinic, or Other Facility Administered Medication Ordered Dose Route Frequency Start Date End Date Status Albuterol Sulfate (Proventil) (2.5 MG/3ML) 0.083% inhalation solution 2.5 mgIndications:COPD, mild (HCC) 2.5 mg NEBULIZER PRN 10/11/2022 Active documented as of this encounter (statuses as of 06/10/2024) Active Problems Problem Noted Date Diagnosed Date [...] as of this encounter (statuses as of 06/10/2024) Resolved Problems Problem Noted Date Diagnosed Date Resolved Date Chronic kidney disease, stage 3a 10/08/2022 03/01/2023 Overview: Per CKD protocol Substance abuse 05/25/2022 03/01/2023 Thrombocytopenia 05/25/2022 09/06/2023 Food insecurity 05/07/2022 05/14/2024 Overview: Per [facility] Protocol Food insecurity 03/06/2021 01/11/2022 Overview: Per [facility] Protocol documented as of this encounter (statuses as of 06/10/2024) Immunizations Name Administration Dates Next Due Pneumococcal [...] Telephone Encounter - Moi Plummer MD - 06/10/2024 4:50 PM EST Signed Prescriptions: Disp Refills Potassium Chloride ER 20 MEQ Oral Tablet E*180 Ta*2 Sig: Take 1 Tablet by mouth 2 times a day.Authorizing Provider: MOI PLUMMER User: MANDY VANESSA Magnesium Oxide 400 MG Oral Tablet 180 Ta*3 Sig: Take 2 Tablets by mouth at bedtime.Authorizing Provider: MOI PLUMMER diazePAM 5 MG Oral Tablet (Valium) 2 Tabl*0 Sig: Take 1 tab by mouth 45-[address] scan. Do not mix with alcohol. Do not drive.Authorizing Provider: MOI PLUMMER * Telephone Encounter - Moi Plummer MD - 06/10/2024 4:50 PM EST I have reviewed the patient's controlled substance dispensing history in the Prescription Drug Monitoring Program in compliance with the [facility] regulations before prescribing a controlled substance. * Telephone Encounter - Mandy Vanessa, [facility] - 06/09/2024 1:31 PM ESTPending Prescriptions: Disp Refills Magnesium Oxide 400 MG Oral Tablet 180 Ta*3 Sig: Take 2 Tablets by mouth at bedtime. diazePAM 5 MG Oral Tablet (Valium) 2 Tabl*0 Sig: Take 1 tab by mouth 45-[address] scan. Do not mix with alcohol. Do not drive. Signed Prescriptions: Disp Refills Potassium Chloride ER 20 MEQ Oral Tablet E*180 Ta*2 Sig: Take 1 Tablet by mouth 2 times a day. Authorizing Provider: MOI PLUMMER Ordering User: MANDY VANESSA * Telephone Encounter - Mandy Vanessa RPh - 06/09/2024 1:31 PM EST I have reviewed the patients controlled substance dispensing history in the Prescription Drug Monitoring Program in compliance with the [facility] regulations before prescribing a controlled substance. PDMP checked on 06/09/2024. Pending Prescriptions: Disp Refills Magnesium Oxide 400 MG Oral Tablet 180 Ta*3 Sig: Take 2 Tablets by mouth at bedtime. diazePAM 5 MG Oral Tablet (Valium) 2 Tabl*0 Sig: Take 1 tab by mouth 45-[address] scan. Do not mix with alcohol. Do not drive. Signed Prescriptions: Disp Refills Potassium Chloride ER 20 MEQ Oral Tablet E*180 Ta*2 Sig: Take 1 Tablet by mouth 2 times a day. Authorizing Provider: MOI PLUMMER Ordering User: MANDY VANESSA Last Visit: 02/21/2024 (in office), Visit date not found (telemedicine) Next Visit: 06/10/2024 Date medication was last filled: 04/09/24 Date medication is due for refill: 04/10/24 Pharmacy: [facility] [id number] Is this request for a controlled substance? Yes and Urine Drug Screen Not completed Toxicology results: No results found for this or any previous visit. Please approve if appropriate. Thanks, Mandy Vanessa, PharmD Clinical Pharmacist [facility] [phone] 06/09/2024 1:31 PM documented in this encounter Plan of Treatment Upcoming Encounters Date Type Department Care Team (Late st Contact Info) Description 06/12/2024 11:10 AM EST Laboratory Laboratory Scenery [place] [place] [address] [place] [id number] [address] [place] [address] 06/18/2024 11:00 AM EST Imaging Radiology [address], [place] [address] [facility] [place] [address] 06/29/2024 8:20 AM EST Office Visit Pulmonary Medicine, [facility] [address] [facility] [place] [address] Huan Branham MD [address] [place] [address] 07/08/2024 11:40 AM EST Office Visit Family Practice [facility] [address] [facility] [place] [address] Moi Plummer MD [address] [facility] [place] [address] Health Maintenance Due Date Last Done Comments [...] Fecal Occult Blood Test 05/26/2025 05/26/20 24, 04/25/2023, 04/25/2023 Lipid Panel 11/25/2025 11/25/2020, 02/29/2020 Diabetes Screening [...] this encounter Medical Devices Implanted Type Area Escrow Processor Device Identifier Shelf Expiration Date Model / Serial / Lot Shell Acet Trident Ii 50mm - [id number] Implanted:Qty: 1 on 12/05/2020 by Rodolfo Park, DO at OR [facility] Right: Hip KANDICE : ORTHOPAEDICS 09/04/2024 702-04-50D / / [id number] Trident Acetabular X3 0 36 D - [id number] Implanted:Qty: 1 on 12/05/2020 by Rodolfo Park, DO at OR [facility] Right: Hip KANDICE : ORTHOPAEDICS 09/14/2025 723-00-36D / / [id number] Hip Hd Nk Alumina Md D 36/ 25 - [id number] Implanted:Qty: 1 on 12/05/2020 by Rodolfo Park, DO at OR [facility] Right: Hip KANDICE : ORTHOPAEDICS 10/03/2025 6570-0-436 / / [id number] Accolade Ii 127 Deg Sz 4 - [id number] Implanted:Qty: 1 on 12/05/2020 by Rodolfo Park, DO at OR [facility] Right: Hip KANDICE : ORTHOPAEDICS 11/07/2025 8473-0374 / / [id number] documented as of this encounter Visit Diagnoses Diagnosis Hypokalemia Hypopotassemia Hypomagnesemia Disorders of magnesium metabolism Situational anxiety Other anxiety states documented in [...] the patient have Health Care Power of Plate Painter Apprentice? Yes, not currently available Care Teams Ham Trimmer Relationship Specialty Start Date End Date Moi Plummer MD [address] [place] [address] PCP - General Internal Medicine 11/05/22 documented as of this encounter
--- OUTSIDE RECORDS SUMMARY | 2024-08-30 22:35 | External Medical Summary | Summary of Care ---
Author Name Unknown Organization [facility] Address [address] [place] [address] Phone [phone] Care Team Providers Care Acid Crane Operator Name Role Phone Roseann Plummer MD Primary Care Provider Reason for Visit * Reason Onset Date Comments Advice 06/18/2024 Please call pt- she needs to get CT at either [facility] or [facility] due to lack of decent veins for IV Encounter Details Date Type Department Care Team ([facility] st Contact Info) Description 06/16/2024 Telephone Radiology [address] [place] [address] Dionne Bardales, RT (R) Advice (Please call pt- she needs to get C... Allergies Active Allergy Reactions Criticality Noted Date Comments Buspirone Rash 11/01/2022 documented as of this encounter (statuses as of 06/18/2024) Medications methADONE 10 MG Tablet Take 1 [...] as of this encounter (statuses as of 06/18/2024) Active Problems Problem Noted Date Diagnosed Date [...] as of this encounter (statuses as of 06/18/2024) Resolved Problems Problem Noted Date Diagnosed Date Resolved Date Chronic kidney disease, stage 3a 10/08/2022 03/01/2023 Overview: Per CKD protocol Substance abuse 05/25/2022 03/01/2023 Thrombocytopenia 05/25/2022 09/06/2023 Food insecurity 05/07/2022 05/14/2024 Overview: Per [facility] Protocol Food insecurity 03/06/2021 01/11/2022 Overview: Per [facility] Protocol documented as of this encounter (statuses as of 06/18/2024) Immunizations Name Administration Dates Next Due Pneumococcal [...] Telephone Encounter - Kell Sams OSA - 06/18/2024 8:22 AM EST Pt would like to have CT scan done at [facility] please fax all information :) * Telephone Encounter - Brandy Ba LPN - 06/17/2024 8:24 AM EST Please reschedule CT Chest at [facility] or [facility], and request IV team start the IV, then please contact pt. (Not sure if he has a preference between the two locations.) * Telephone Encounter - Dionne Bardales RT (R) - 06/16/2024 10:44 AM EST PT has very difficult veins and we are not going to be able to do her CT PE study here at [facility]. Please call pt she would like to jennyle at [facility] or [facility] where they have an IV team tget an IV for her study. Thanks, Dionne VALIENTE GW documented in this encounter Plan of Treatment Upcoming Encounters Date Type Department Care Team (Late st Contact Info) Description 06/23/2024 1:00 PM EST Imaging Radiology [facility] [address] [facility] [place] [address] 06/29/2024 8:20 AM EST Office Visit Pulmonary Medicine, [facility] [address] [facility] [place] [address] Huan Branham MD [address] [place] [address] 07/08/2024 11:40 AM EST Office Visit Family Practice [facility] [address] [facility] [place] [address] Roseann Plummer MD [address] [facility] [place] [address] Health Maintenance Due Date Last Done Comments [...] this encounter Medical Devices Implanted Type Area Road Crossing Guard Device Identifier Shelf Expiration Date Model / Serial / Lot Shell Acet Trident Ii 50mm - [id number] Implanted:Qty: 1 on 12/05/2020 by Rodolfo Park DO at OR [facility] Right: Hip KANDICE : ORTHOPAEDICS 09/04/2024 702-04-50D / / [id number] Trident Acetabular X3 0 36 D - [id number] Implanted:Qty: 1 on 12/05/2020 by Rodolfo Park DO at OR [facility] Right: Hip KANDICE : ORTHOPAEDICS 09/14/2025 723-00-36D / / [id number] Hip Hd Perry Hummel 36/ 25 - [id number] Implanted:Qty: 1 on 12/05/2020 by Rodolfo Park DO at OR [facility] Right: Hip KANDICE : ORTHOPAEDICS 10/03/2025 6570-0-436 / / [id number] Accolade Ii 127 Deg Sz 4 - [id number] Implanted:Qty: 1 on 12/05/2020 by Rodolfo Park DO at OR [facility] Right: Hip KANDICE : ORTHOPAEDICS 11/07/2025 [id number] / / [id number] documented as of this encounter Advance Directives [...] the patient have Health Care Power of Logistics Support? Yes, not currently available Care Teams Acid Crane Operator Relationship Specialty Start Date End Date Roseann Plummer MD [address] [place] [address] PCP - General Internal Medicine 11/05/22 documented as of this encounter
--- OUTSIDE RECORDS SUMMARY | 2024-08-30 22:35 | External Medical Summary | Summary of Care ---
Author Name Unknown Organization [facility] Address [address] [place] [address] Phone [phone] Care Team Providers Care Manager Video Games Name Role Phone Roseann Plummer MD Primary Care Provider Encounter Details Date Type Department Care Team ([facility] st Contact Info) Description 06/08/2024 12:15 PM EST Scheduled Telephone Care Coordination and Integration [address] [place] [address] Manjula [facility] Personal Computer Network Analyst [address] [place], [place] [id number] Allergies Active Allergy Reactions Criticality Noted Date Comments Buspirone Rash 11/01/2022 documented as of this encounter (statuses as of 06/08/2024) Medications methADONE 10 MG Tablet Take 1 [...] skin daily. 28 Patch 5 4 Active Potassium Chloride ER 20 MEQ Oral Tablet Extended ReleaseIndication s:Hypokalemia Take 1 Tablet by mouth 2 times a day. 60 Tablet 5 4 Active DULoxetine HCl 30 MG [...] 2 weeks 60 g 5 4 Active Magnesium Oxide 400 MG Oral TabletIndications :Hypomagnesemia Take 2 Tablets by mouth at bedtime. 60 Tablet 11 4 Active oxyCODONE-Acetami nophen 5-325 MG Oral Tablet (Percocet) Take 1 Tablet by mouth every 4 hours as needed for Pain, Moderate. 15 Tablet 4 Active oxyCODONE-Acetami nophen 5-325 MG Oral Tablet (Percocet) Take 1 Tablet by mouth every 4 hours as needed for Pain, Moderate. 15 Tablet 03/16/2024 12:51 PM EDT 4 Active diazePAM 5 MG Oral Tablet (Valium)Indicatio ns:Situational anxiety Take 1 tab by mouth 45-[address] scan. Do not mix with alcohol. Do not drive. 2 Tablet 4 Active Ferrous Gluconate 324 (38 Fe) [...] Tablet by mouth in the morning. Active Hospital, Clinic, or Other Facility Administered Medication Ordered Dose Route Frequency Start Date End Date Status Albuterol Sulfate (Proventil) (2.5 MG/3ML) 0.083% inhalation solution 2.5 mgIndications:COPD, mild (HCC) 2.5 mg NEBULIZER PRN 10/11/2022 Active documented as of this encounter (statuses as of 06/08/2024) Active Problems Problem Noted Date Diagnosed Date [...] as of this encounter (statuses as of 06/08/2024) Resolved Problems Problem Noted Date Diagnosed Date Resolved Date Chronic kidney disease, stage 3a 10/08/2022 03/01/2023 Overview: Per CKD protocol Substance abuse 05/25/2022 03/01/2023 Thrombocytopenia 05/25/2022 09/06/2023 Food insecurity 05/07/2022 05/14/2024 Overview: Per [facility] Protocol Food insecurity 03/06/2021 01/11/2022 Overview: Per [facility] Protocol documented as of this encounter (statuses as of 06/08/2024) Immunizations Name Administration Dates Next Due Pneumococcal [...] Entry Date Author No 12/05/2020 2:35 PM COLET Marcela Rodriguez RN documented in this encounter Plan of Treatment Upcoming Encounters Date Type Department Care Team (Late st Contact Info) Description 06/09/2024 2:30 PM EST Imaging Radiology [facility] 1st [facility] 132 [facility] [place] [address] 06/10/2024 1:40 PM EST Office Visit Family Practice [facility] 132 [facility] [place] [address] Bessy Culp DO 132 [facility] [place] [address] 06/29/2024 8:20 AM EST Office Visit Pulmonary Medicine, [facility] [address] [place] [address] Huan Branham MD [address] [place] [address] 07/08/2024 11:40 AM EST Office Visit Family Practice [facility] 132 [facility] [place] [address] Roseann Plummer MD [address] [place] [address] Health Maintenance Due Date Last Done Comments [...] this encounter Medical Devices Implanted Type Area Inspector Air Carrier Device Identifier Shelf Expiration Date Model / Serial / Lot Shell Acet Trident Ii 50mm - [id number] Implanted:Qty: 1 on 12/05/2020 by Rodolfo Park, DO at OR [facility] Right: Hip KANDICE : ORTHOPAEDICS 09/04/2024 702-04-50D / / [id number] Trident Acetabular X3 0 36 D - [id number] Implanted:Qty: 1 on 12/05/2020 by Rodolfo Park DO at OR [facility] Right: Hip KANDICE : ORTHOPAEDICS 09/14/2025 723-00-36D / / [id number] Hip Hd Perry Hummel 36/ 25 - [id number] Implanted:Qty: 1 on 12/05/2020 by Rodolfo Park DO at OR [facility] Right: Hip KANDICE : ORTHOPAEDICS 10/03/2025 6570-0-436 / / [id number] Accolade Ii 127 Deg Sz 4 - [id number] Implanted:Qty: 1 on 12/05/2020 by Rodolfo Park DO at OR [facility] Right: Hip KANDICE : ORTHOPAEDICS 11/07/2025 [id number] / / [id number] documented as of this encounter Advance Directives [...] the patient have Health Care Power of Welder And Fitter? Yes, not currently available Care Teams Manager Video Games Relationship Specialty Start Date End Date Roseann Plummer MD 132 [facility] [place] [address] PCP - General Internal Medicine 11/05/22 documented as of this encounter
--- OUTSIDE RECORDS SUMMARY | 2024-08-30 22:35 | External Medical Summary | Summary of Care ---
Author Name Unknown Organization [facility] Address [address] [place] [address] Phone [phone] Care Team Providers Care Clock Repairer Name Role Phone Roseann Plummer MD Primary Care Provider Reason for Visit * Reason Onset Date Comments Advice 06/18/2024 Please call pt- she needs to get CT at either [facility] or [facility] due to lack of decent veins for IV Encounter Details Date Type Department Care Team ([facility] st Contact Info) Description 06/16/2024 Telephone Radiology [address] [place] [address] Dionne Bardales, RT (R) Advice [...] like to have CT scan done at [facility] please fax all information :) * Telephone Encounter - Brandy Ba LPN - 06/17/2024 8:24 AM EST Please reschedule CT Chest at [facility] or [facility], and request IV team start the IV, then please contact pt. (Not sure if he has a preference between the two locations.) * Telephone Encounter - Dionne Bardales RT (R) - 06/16/2024 10:44 AM EST PT has very difficult veins and we are not going to be able to do her CT PE study here at [facility]. Please call pt she would like to jennyle at [facility] or [facility] where they have an IV team tget an IV for her study. Thanks, Dionne VALIENTE GW documented in this encounter Plan of Treatment Upcoming Encounters Date Type Department Care Team (Late st Contact Info) Description 06/23/2024 1:00 PM EST Imaging Radiology [facility] 132 [facility] [place] [address] 06/29/2024 8:20 AM EST Office Visit Pulmonary Medicine, [facility] 132 [facility] [place] [address] Huan Branham MD [address] [place] [address] 07/08/2024 11:40 AM EST Office Visit Family Practice [facility] 132 [facility] [place] [address] Roseann Plummer MD 132 [facility] [place] [address] Health Maintenance Due Date Last Done Comments [...] this encounter Medical Devices Implanted Type Area Scrip Clerk Device Identifier Shelf Expiration Date Model / Serial / Lot Shell Acet Trident Ii 50mm - [id number] Implanted:Qty: 1 on 12/05/2020 by Rodolfo Park DO at OR [facility] Right: Hip KANDICE : ORTHOPAEDICS 09/04/2024 702-04-50D / / [id number] Trident Acetabular X3 0 36 D - [id number] Implanted:Qty: 1 on 12/05/2020 by Rodolfo Park DO at OR [facility] Right: Hip KANDICE : ORTHOPAEDICS 09/14/2025 723-00-36D / / [id number] Hip Hd Perry Hummel 36/ 25 - [id number] Implanted:Qty: 1 on 12/05/2020 by Rodolfo Park DO at OR [facility] Right: Hip KANDICE : ORTHOPAEDICS 10/03/2025 6570-0-436 / / [id number] Accolade Ii 127 Deg Sz 4 - [id number] Implanted:Qty: 1 on 12/05/2020 by Rodolfo Park DO at OR [facility] Right: Hip KANDICE : ORTHOPAEDICS 11/07/2025 [id number] / / [id number] documented as of this encounter Advance Directives [...] the patient have Health Care Power of Service Center Assistant? Yes, not currently available Care Teams Clock Repairer Relationship Specialty Start Date End Date Roseann Plummer MD [address] [place] [address] PCP - General Internal Medicine 11/05/22 documented as of this encounter
--- OUTSIDE RECORDS SUMMARY | 2024-08-30 22:35 | External Medical Summary | Summary of Care ---
Author Name Unknown Organization [facility] Address [address] [place] [address] Phone [phone] Care Team Providers Care Rn Clinical Research Name Role Phone Roseann Plummer MD Primary Care Provider Reason for Visit * Reason Comments Outpatient Testing Encounter Details Date Type Department Care Team (Late st Contact Info) Description 06/15/2024 12:30 PM EST Laboratory Laboratory [facility] [address] [place] [address] [facility] [address] [place] [address] HTN, goal below 130/80 Allergies Active Allergy Reactions Criticality Noted Date Comments Buspirone Rash 11/01/2022 documented as of this encounter (statuses as of 06/15/2024) Medications methADONE 10 MG Tablet Take 1 [...] as of this encounter (statuses as of 06/15/2024) Active Problems Problem Noted Date Diagnosed Date [...] as of this encounter (statuses as of 06/15/2024) Resolved Problems Problem Noted Date Diagnosed Date Resolved Date Chronic kidney disease, stage 3a 10/08/2022 03/01/2023 Overview: Per CKD protocol Substance abuse 05/25/2022 03/01/2023 Thrombocytopenia 05/25/2022 09/06/2023 Food insecurity 05/07/2022 05/14/2024 Overview: Per [facility] Protocol Food insecurity 03/06/2021 01/11/2022 Overview: Per [facility] Protocol documented as of this encounter (statuses as of 06/15/2024) Immunizations Name Administration Dates Next Due Pneumococcal [...] of Assessment Author No 12/05/2020 2:35 PM EDMarcela Wiseman RN documented as of this encounter Mental Status * Because of a physical, mental, or emotional condition, do you have serious difficulty concentrating, remembering, or making decisions? (5 years old or older) Answer Entry Date Author No 12/05/2020 2:35 PM EDT Marcela Rodriguez RN documented in this encounter Plan of Treatment Upcoming Encounters Date Type Department Care Team (Late st Contact Info) Description 06/18/2024 11:00 AM EST Imaging Radiology [facility] 1st [facility] 132 [facility] [place] [address] 06/29/2024 8:20 AM EST Office Visit Pulmonary Medicine, [facility] 132 [facility] [place] [address] Huan Branham MD [address] [place] [address] 07/08/2024 11:40 AM EST Office Visit Family Practice [facility] 132 [facility] [place] [address] Roseann Plummer MD 132 [facility] [place] [address] Pending Results Name Type Priority Associated Diagnoses Date /Time CREATININE Lab Routine HTN, goal below 130/80 06/15/2024 12:05 PM EST Health Maintenance Due Date Last [...] this encounter Medical Devices Implanted Type Area Senior Network Administrator Device Identifier Shelf Expiration Date Model / Serial / Lot Shell Acet Trident Ii 50mm - [id number] Implanted:Qty: 1 on 12/05/2020 by Rodolfo Park, at OR [facility] Right: Hip KANDICE : ORTHOPAEDICS 09/04/2024 702-04-50D / / [id number] Trident Acetabular X3 0 36 D - [id number] Implanted:Qty: 1 on 12/05/2020 by Rodolfo Park, DO at OR [facility] Right: Hip KANDICE : ORTHOPAEDICS 09/14/2025 723-00-36D / / [id number] Hip Hd Perry Hummel - [id number] Implanted:Qty: 1 on 12/05/2020 by Rodolfo Park DO at [facility] Right: Hip KANDICE : ORTHOPAEDICS 10/03/2025 6570-0-436 / / [id number] Accolade Ii 127 Deg Sz 4 - [id number] Implanted:Qty: 1 on 12/05/2020 by Rodolfo Park, DO at [facility] Right: Hip KANDICE : ORTHOPAEDICS 11/07/2025 6927-1781 / / [id number] documented as of this encounter Visit Diagnoses Diagnosis HTN, goal below 130/80 Unspecified essential hypertension documented in this encounter Advance Directives * [...] the patient have Health Care Power of Egg Producer? Yes, not currently available Care Teams Rn Clinical Research Relationship Specialty Start Date End Date oRseann Plummer MD 132 [place] [address] PCP - General Internal Medicine 11/05/22 documented as of this encounter
--- OUTSIDE RECORDS SUMMARY | 2024-08-30 22:35 | External Medical Summary | Summary of Care ---
Author Name Unknown Organization [facility] Address [address] [place] [address] Phone [phone] Care Team Providers Care Light Bulb Replacer Name Role Phone Roseann Plummer MD Primary Care Provider Reason for Visit * Reason Onset Date Comments No Show 06/04/2024 [facility] No Show Auto mation Encounter Details Date Type Department Care Team ([facility] st Contact Info) Description 06/04/2024 Telephone Family Practice [facility] [address] [place] [address] Jian Francois MD [address] [place] [address] No Show ([facility] No Show Automation) Allergies Active Allergy Reactions Criticality Noted Date Comments Buspirone Rash 11/01/2022 documented as of this encounter (statuses as of 06/04/2024) Medications Medication Sig Dispensed Refills Start Date [...] Shortness of Breath. 360 mL 10/07/2023 Active Beet Root 500 MG Oral Capsule [...] mouth at bedtime. 60 Tablet 02/28/2024 Active oxyCODONE-Acetaminop hen 5-325 MG Oral [...] Do not drive. 2 Tablet 04/09/2024 Active Ferrous Gluconate 324 (38 Fe) MG Oral Tablet Take 1 Tablet by mouth daily with breakfast. 90 Tablet 1 05/11/2024 Active Pantoprazole Sodium 40 MG Oral Tablet Delayed Release (Protonix) Take 1 Tablet by mouth in the morning. 90 Tablet 1 05/08/2024 Active Albuterol Sulfate HFA 108 (90 Base) MCG/ACT Inhalation Aerosol SolutionIndications: Cough INHALE 2 PUFFS BY MOUTH EVERY 6 HOURS NEEDED FOR COUGH 18 g 5 05/08/2024 Active Eliquis 5 MG Oral Tablet (Apixaban) TAKE ONE TABLET BY MOUTH EVERY MORNING AND TAKE ONE TABLET BY MOUTH BEFORE BEDTIME 180 Tablet 1 05/18/2024 Active Escitalopram Oxalate 10 MG Oral Tablet (Lexapro) Take 1 Tablet by mouth in the morning. Active Hospital, Clinic, or Other Facility Administered Medication Ordered Dose Route Frequency Start Date End Date Status Albuterol Sulfate (Proventil) (2.5 MG/3ML) 0.083% inhalation solution 2.5 mgIndications:COPD, mild (HCC) 2.5 mg NEBULIZER PRN 10/11/2022 Active documented as of this encounter (statuses as of 06/04/2024) Active Problems Problem Noted Date Diagnosed Date [...] as of this encounter (statuses as of 06/04/2024) Resolved Problems Problem Noted Date Diagnosed Date Resolved Date Chronic kidney disease, stage 3a 10/08/2022 03/01/2023 Overview: Per CKD protocol Substance abuse 05/25/2022 03/01/2023 Thrombocytopenia 05/25/2022 09/06/2023 Food insecurity 05/07/2022 05/14/2024 Overview: Per [facility] Protocol Food insecurity 03/06/2021 01/11/2022 Overview: Per [facility] Protocol documented as of this encounter (statuses as of 06/04/2024) Immunizations Name Administration Dates Next Due Pneumococcal [...] ages 0-17 years) Not on file 05/20/2024 Sex and Gender Information Value Date Recorded [...] encounter Miscellaneous Notes * Telephone Encounter - [facility], No Show - 06/04/2024 5:00 AM EST Dear Bhumika Flores, Looks like you missed an appointment with JIAN FRANCOIS on 06/01/2024 at 02:00 PM. If you haven't already rescheduled, you have a couple of options: Reschedule in [employer].Kickit With/Ziippi/scheduling Call us at [phone] Can't make a future appointment? Cancel and let someone else have your spot! It's easy to do via SoftArt or by calling us. Thanks for trusting [facility] with your care. We hope to see you back in our office soon. Sincerely, JIAN FRANCOIS documented in this encounter Plan of Treatment Upcoming Encounters Date Type Department Care Team (Late st Contact Info) Description 06/09/2024 2:30 PM EST Imaging Radiology [address] [place] [address] 06/10/2024 1:40 PM EST Office Visit Family [facility] [address] [place] [address] Bessy Culp, DO 132 [facility] [place] [address] 07/08/2024 11:40 AM EST Office Visit Family Practice [facility] [address] [place] [address] Roseann Plummer MD [address] [place] [address] 07/08/2024 12:40 PM EST Office Visit Pulmonary Medicine, [facility] [address] [place] [address] Huan Branham MD [address] [place] [address] Health Maintenance Due Date Last Done Comments [...] this encounter Medical Devices Implanted Type Area Returned Goods Sorter Device Identifier Shelf Expiration Date Model / Serial / Lot Shell Acet Trident Ii 50mm - [id number] Implanted:Qty: 1 on 12/05/2020 by Rodolfo Park DO at OR [facility] Right: Hip KANDICE : ORTHOPAEDICS 09/04/2024 702-04-50D / / [id number] Trident Acetabular X3 0 36 D - [id number] Implanted:Qty: 1 on 12/05/2020 by Rodolfo Park DO at OR [facility] Right: Hip KANDICE : ORTHOPAEDICS 09/14/2025 723-00-36D / / [id number] Hip Hd Perry Alonso Md D 36/ 25 - [id number] Implanted:Qty: 1 on 12/05/2020 by Rodolfo Park DO at OR [facility] Right: Hip KANDICE : ORTHOPAEDICS 10/03/2025 6570-0-436 / / [id number] Accolade Ii 127 Deg Sz 4 - [id number] Implanted:Qty: 1 on 12/05/2020 by Rodolfo Park DO at OR [facility] Right: Hip KANDICE : ORTHOPAEDICS 11/07/2025 [id number] / / [id number] documented as of this encounter Advance Directives [...] the patient have Health Care Power of Continuous Vulcanizing Machine Operator? Yes, not currently available Care Teams Light Bulb Replacer Relationship Specialty Start Date End Date Roseann Plummer MD [address] [place] [address] PCP - General Internal Medicine 11/05/22 documented as of this encounter
--- OUTSIDE RECORDS SUMMARY | 2024-08-30 22:35 | External Medical Summary | Summary of Care ---
Author Name Unknown Organization [facility] Address [address] [place] [address] Phone [phone] Care Team Providers Care Community Life Director Name Role Phone Roseann Plummer MD Primary Care Provider Encounter Details Date Type Department Care Team ([facility] st Contact Info) Description 06/10/2024 Orders Only PATIENT PORTAL DO NOT DELETE THIS DEPT USED BY [place] [address] Allergies Active Allergy Reactions Criticality Noted [...] a day. 180 Tablet 2 4 Active Hospital, Clinic, or Other Facility [...] No 05/20/2024 Does the household have a [facility] [...] Care Team (Late st Contact Info) Description 06/10/2024 1:40 PM EST Office Visit Family Practice [facility] 132 [facility] [place] [address] Bessy Culp DO 132 [facility] [place] [address] 06/18/2024 11:00 AM EST Imaging Radiology [facility] 1st [facility] [address] [facility] [place] [address] 06/29/2024 8:20 AM EST Office Visit Pulmonary Medicine, [facility] 132 [facility] [place] [address] Huan Branham MD [address] [place] [address] 07/08/2024 11:40 AM EST Office Visit Family Practice [facility] 132 [facility] [place] [address] Roseann Plummer MD [address] [place] [address] Health Maintenance Due Date Last Done Comments [...] this encounter Medical Devices Implanted Type Area Shotblast Operator Device Identifier Shelf Expiration Date Model / Serial / Lot Shell Acet Trident Ii 50mm - [id number] Implanted:Qty: 1 on 12/05/2020 by Rodolfo Park DO at OR [facility] Right: Hip KANDICE : ORTHOPAEDICS 09/04/2024 702-04-50D / / [id number] Trident Acetabular X3 0 36 D - [id number] Implanted:Qty: 1 on 12/05/2020 by Rodolfo Prak DO at OR [facility] Right: Hip KANDICE : ORTHOPAEDICS 09/14/2025 723-00-36D / / [id number] Hip Hd Perry Hummel [id number] Implanted:Qty: 1 on 12/05/2020 by Rodolfo Park DO at [facility] Right: Hip KANDICE : ORTHOPAEDICS 10/03/2025 6570-0-436 / / [id number] Accolade Ii 127 Deg Sz - [id number] Implanted:Qty: 1 on 12/05/2020 by Rodolfo Park, DO at OR [facility] Right: Hip KANDICE : ORTHOPAEDICS 11/07/2025 1576-1166 / / [id number] documented as of this encounter Advance Directives [...] the patient have Health Care Power of Outsole Leveler? Yes, not currently available Care Teams Community Life Director Relationship Specialty Start Date End Date Roseann Plummer MD [address] [place] [address] PCP - General Internal Medicine 11/05/22 documented as of this encounter
--- OUTSIDE RECORDS SUMMARY | 2024-08-30 22:35 | External Medical Summary | Summary of Care ---
Author Name Unknown Organization [facility] Address [address] [place] [address] Phone [phone] Care Team Providers Care Mine Motor Operator Name Role Phone Roseann Plummer MD Primary Care Provider Encounter Details Date Type Department Care Team ([facility] st Contact Info) Description 06/17/2024 2:00 PM EST Scheduled Telephone Care Coordination and Integration [address] [place] [address] Manjula Chambers Community [facility] Rubber Tire Curer [address] [place], [place] [phone] Allergies Active Allergy Reactions Criticality Noted Date Comments Buspirone Rash 11/01/2022 documented as of this encounter (statuses as of 06/17/2024) Medications methADONE 10 MG Tablet Take 1 [...] as of this encounter (statuses as of 06/17/2024) Active Problems Problem Noted Date Diagnosed Date [...] as of this encounter (statuses as of 06/17/2024) Resolved Problems Problem Noted Date Diagnosed Date Resolved Date Chronic kidney disease, stage 3a 10/08/2022 03/01/2023 Overview: Per CKD protocol Substance abuse 05/25/2022 03/01/2023 Thrombocytopenia 05/25/2022 09/06/2023 Food insecurity 05/07/2022 05/14/2024 Overview: Per [facility] Protocol Food insecurity 03/06/2021 01/11/2022 Overview: Per [facility] Protocol documented as of this encounter (statuses as of 06/17/2024) Immunizations Name Administration Dates Next Due Pneumococcal [...] of Assessment Author No 12/05/2020 2:35 PM Marcela Adame RN * Because of a physical, mental, or emotional condition, do you have difficulty doing errands alone such as visiting a doctors office or shopping? (15 years old or older) Answer Date of Assessment Author No 12/05/2020 2:35 PM Marcela Adame RN documented as of this encounter Mental Status * Because of a physical, mental, or emotional condition, do you have serious difficulty concentrating, remembering, or making decisions? (5 years old or older) Answer Entry Date Author No 12/05/2020 2:35 PM Marcela Adame RN documented in this encounter Progress Notes * Manjula Chambers, Community Health Rubber Tire Curer - 06/17/2024 2:26 PM EST Telemedicine visit: No Community [facility] Rubber Tire Curer (CORIE) documentation: This CHW placed PC #3 to patient per CM's request Patient reported that she is having a lot of swelling in her legs and is going to have a CAT scan and ultra sound on them both tomorrow, most likely at [facility]. She does not have a cough and when she does bring up mucus it is clear. Still having SOB but at base line no increase. O2 reading on her pulse ox is usually mid 90's to low 90's. Will dip to lower than 90 like 88-89 but not for long. Her oxygen liters are at 4. No fevers. No pain unless her swelling gets bad and then her ankles and feet hurt. 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 Just hear and there. She is upset with herself for picking it back up again. This CHW reviewed red flags. This CHW encouraged patient to reachout to with any concerns or questions and confirmed 's contact number. Manjula Chambers- Community Health Worker 1 Support Services/[facility] [email or web address] documented in this encounter Plan of Treatment Upcoming Encounters Date Type Department Care Team (Late st Contact Info) Description 06/29/2024 8:20 AM EST Office Visit Pulmonary Medicine, [facility] [address] [place] [address] Huan Branham MD [address] [place] [address] 07/08/2024 11:40 AM EST Office Visit Family Practice [facility] [address] [place] [address] Roseann Plummer MD [address] [place] [address] Health Maintenance Due Date Last Done Comments [...] this encounter Medical Devices Implanted Type Area Onshore Diver Device Identifier Shelf Expiration Date Model / Serial / Lot Shell Acet Trident Ii 50mm - [id number] Implanted:Qty: 1 on 12/05/2020 by Rodolfo Park DO at OR [facility] Right: Hip KANDICE : ORTHOPAEDICS 09/04/2024 702-04-50D / / [id number] Trident Acetabular X3 0 36 D - [id number] Implanted:Qty: 1 on 12/05/2020 by Rodolfo Park DO at OR [facility] Right: Hip KANDICE : ORTHOPAEDICS 09/14/2025 723-00-36D / / [id number] Hip Hd Perry Hummel 36/ 25 - [id number] Implanted:Qty: 1 on 12/05/2020 by Rodolfo Park DO at OR [facility] Right: Hip KANDICE : ORTHOPAEDICS 10/03/2025 6570-0-436 / / [id number] Accolade Ii 127 Deg Sz 4 - [id number] Implanted:Qty: 1 on 12/05/2020 by Rodolfo Park DO at OR [facility] Right: Hip KANDICE : ORTHOPAEDICS 11/07/2025 [id number] / / [id number] documented as of this encounter Advance Directives [...] the patient have Health Care Power of Cement Truck Loader? Yes, not currently available Care Teams Mine Motor Operator Relationship Specialty Start Date End Date Roseann Plummre MD [address] [place] [address] PCP - General Internal Medicine 11/05/22 documented as of this encounter
--- OUTSIDE RECORDS SUMMARY | 2024-08-30 22:35 | External Medical Summary | Summary of Care ---
Author Name Unknown Organization [facility] Address [address] [place] [address] Phone [phone] Care Team Providers Care Oxygen Equipment Preparer Name Role Phone Roseann Plummer MD Primary Care Provider Encounter Details Date Type Department Care Team ([facility] st Contact Info) Description 06/01/2024 2:45 PM EST Scheduled Telephone Care Coordination and Integration [address] [place] [address] Manjula Chambers Community [facility] Dip Dyer [address] [place], [place] [phone] Allergies Active Allergy Reactions Criticality Noted Date Comments Buspirone Rash 11/01/2022 documented as of this encounter (statuses as of 06/01/2024) Medications Medication Sig Dispensed Refills Start Date [...] 2 times a day. 60 Tablet 5 12/16/2023 Active DULoxetine HCl 30 MG Oral [...] as of this encounter (statuses as of 06/01/2024) Active Problems Problem Noted Date Diagnosed Date [...] as of this encounter (statuses as of 06/01/2024) Resolved Problems Problem Noted Date Diagnosed Date Resolved Date Chronic kidney disease, stage 3a 10/08/2022 03/01/2023 Overview: Per CKD protocol Substance abuse 05/25/2022 03/01/2023 Thrombocytopenia 05/25/2022 09/06/2023 Food insecurity 05/07/2022 05/14/2024 Overview: Per [facility] Protocol Food insecurity 03/06/2021 01/11/2022 Overview: Per [facility] Protocol documented as of this encounter (statuses as of 06/01/2024) Immunizations Name Administration Dates Next Due Pneumococcal [...] No 05/20/2024 Does the household have a [facility] source of income? (Household - [...] [facility] [address] [place] [address] Roseann Plummer MD [address] [place] [address] Health Maintenance Due Date Last Done Comments [...] this encounter Medical Devices Implanted Type Area Sandblaster Supervisor Device Identifier Shelf Expiration Date Model / Serial / Lot Shell Acet Trident Ii 50mm - [id number] Implanted:Qty: 1 on 12/05/2020 by Rodolfo Park DO at OR [facility] Right: Hip KANDICE : ORTHOPAEDICS 09/04/2024 702-04-50D / / [id number] Trident Acetabular X3 0 36 D - [id number] Implanted:Qty: 1 on 12/05/2020 by Rodolfo Park DO at OR [facility] Right: Hip KANDICE : ORTHOPAEDICS 09/14/2025 723-00-36D / / [id number] Hip Hd Perry Hummel 36/ 25 - [id number] Implanted:Qty: 1 on 12/05/2020 by Rodolfo Park DO at OR [facility] Right: Hip KANDICE : ORTHOPAEDICS 10/03/2025 6570-0-436 / / [id number] Accolade Ii 127 Deg Sz 4 - [id number] Implanted:Qty: 1 on 12/05/2020 by Rodolfo Park DO at OR [facility] Right: Hip KANDICE : ORTHOPAEDICS 11/07/2025 [id number] / / [id number] documented as of this encounter Advance Directives [...] patient have Health Care Power of Machine Ironer? Yes, not currently available Care Teams Oxygen Equipment Preparer Relationship Specialty Start Date End Date Roseann Plummer MD [address] [place] [address] PCP - General Internal Medicine 11/05/22 documented as of this encounter
--- OUTSIDE RECORDS SUMMARY | 2024-08-30 22:35 | External Medical Summary | Summary of Care ---
Author Name Unknown Organization [facility] Address [address] [place] [address] Phone [phone] Care Team Providers Care Product Design Specialist Name Role Phone Roseann Plummer MD Primary Care Provider Reason for Visit * Reason Onset Date Comments Advice 06/04/2024 Pls order creati nine for CT PE. Encounter Details Date Type Department Care Team ([facility] st Contact Info) Description 06/04/2024 Telephone Rad[address], [place] [address] [place] [address] Laura Uriostegui, RT (R) Advice (Pls order creatinine for CT PE.) Allergies Active Allergy Reactions Criticality Noted Date Comments Buspirone Rash 11/01/2022 documented as of this encounter (statuses as of 06/09/2024) Medications methADONE 10 MG Tablet Take 1 [...] as of this encounter (statuses as of 06/09/2024) Active Problems Problem Noted Date Diagnosed Date [...] as of this encounter (statuses as of 06/09/2024) Resolved Problems Problem Noted Date Diagnosed Date Resolved Date Chronic kidney disease, stage 3a 10/08/2022 03/01/2023 Overview: Per CKD protocol Substance abuse 05/25/2022 03/01/2023 Thrombocytopenia 05/25/2022 09/06/2023 Food insecurity 05/07/2022 05/14/2024 Overview: Per [facility] Protocol Food insecurity 03/06/2021 01/11/2022 Overview: Per [facility] Protocol documented as of this encounter (statuses as of 06/09/2024) Immunizations Name Administration Dates Next Due Pneumococcal [...] Telephone Encounter - Huan Branham MD - 06/08/2024 6:34 PM EST Cr Lab order added. * Telephone Encounter - Laura Uriostegui RT (R) - 06/04/2024 10:53 AM EST Pls order creatinine for CT PE. Pt has been scheduled multiple times but cancels or No shows. Pt scheduled for 06/09/24 Thank you, Laura documented in this encounter Plan of Treatment Upcoming Encounters Date Type Department Care Team (Late st Contact Info) Description 06/10/2024 1:40 PM EST Office Visit Family [facility] [address] [place] [address] Bessy Culp, [address] [place] [address] 06/18/2024 11:00 AM EST Imaging Radiology [facility] 1st [facility] 132 [facility] [place] [address] 06/29/2024 8:20 AM EST Office Visit Pulmonary Medicine, [facility] [address] [facility] [place] [address] Huan Branham MD [address] [place] [address] 07/08/2024 11:40 AM EST Office Visit Family Practice [facility] [address] [facility] [place] [address] Roseann Plummer MD [address] [place] [address] Scheduled Orders Name Type Priority Associated Diagnoses Orde r Schedule CREATININE Lab Routine HTN, goal below 130/80 Expected: 06/08/2024, Expires: 06/08/2025 Health Maintenance Due Date Last Done Comments [...] this encounter Medical Devices Implanted Type Area Presser And Shaper Knitted Goods Device Identifier Shelf Expiration Date Model / Serial / Lot Shell Acet Trident Ii 50mm - [id number] Implanted:Qty: 1 on 12/05/2020 by Rodolfo Park DO at OR [facility] Right: Hip KANDICE : ORTHOPAEDICS 09/04/2024 702-04-50D / / [id number] Trident Acetabular X3 0 36 D - [id number] Implanted:Qty: 1 on 12/05/2020 by Rodolfo Park DO at OR [facility] Right: Hip KANDICE : ORTHOPAEDICS 09/14/2025 723-00-36D / / [id number] Hip Hd Nk Alumina Md D 36/ 25 - [id number] Implanted:Qty: 1 on 12/05/2020 by Rodolfo Park DO at OR [facility] Right: Hip KANDICE : ORTHOPAEDICS 10/03/2025 6570-0-436 / / [id number] Accolade Ii 127 Deg Sz 4 - [id number] Implanted:Qty: 1 on 12/05/2020 by Rodolfo Park DO at OR [facility] Right: Hip KANDICE : ORTHOPAEDICS 11/07/2025 [id number] / / [id number] documented as of this encounter Visit Diagnoses Diagnosis HTN, goal below 130/80- Primary Unspecified essential hypertension documented in this encounter [...] patient have Health Care Power of Construction Supervisor/Carpenter? Yes, not currently available Care Teams Product Design Specialist Relationship Specialty Start Date End Date Roseann Plummer MD [address] [place] [address] PCP - General Internal Medicine 11/05/22 documented as of this encounter
--- OUTSIDE RECORDS SUMMARY | 2024-08-30 22:35 | External Medical Summary ---
Author Name Unknown Address Unknown Organization K09:[facility] [place] [address] Laboratory Report Ordering Provider Test Date Status YVON MENCHACA 06/15/2024 12:05:00 Final Observation Date Value Abnormality Reference (Units ) Status Creatinine 06/15/2024 12:05:00 0.8 0.5-1.0 (mg/dL) Final Glomerular filtration rate/1.73 sq M.predicted [Volume Rate/Area] in Serum, Plasma or Blood by Creatinine-based formula (CKD-EPI) 06/15/2024 12:05:00 82 >=60 (mL/min) Final eGFR is calculated based on the CKD-EPI 2020 equation. Performing Location [facility] [place] [address]
--- OUTSIDE RECORDS SUMMARY | 2024-08-30 22:35 | External Medical Summary | Summary of Care ---
Author Name Unknown Organization [facility] Address [address] [place] [address] Phone [phone] Care Team Providers Care Clinical Studies Specialist Name Role Phone Roseann Plummer MD Primary Care Provider Reason for Visit * Reason Onset Date Comments Advice 06/04/2024 Pls order creati [address] PE. Encounter Details Date Type Department Care Team ([facility] st Contact Info) Description 06/04/2024 Telephone Radiology [address], [place] [address] [place] [address] Laura Uriostegui, RT (R) Advice [...] Description 06/09/2024 2:30 PM EST Imaging Radiology [facility] [address] [place] [address] 06/10/2024 1:40 PM EST Office Visit [address] Practice [address] [place] [address] Bessy Culp DO [address] [place] [address] 06/29/2024 8:20 AM EST Office Visit Pulmonary Medicine, [facility] 132 [facility] [place] [address] Huan Branham MD [address] [place] [address] 07/08/2024 11:40 AM EST Office Visit Family Practice [facility] [place] [address] Roseann Plummer MD [address] [place] [address] Scheduled Orders Name Type Priority Associated Diagnoses [...] this encounter Medical Devices Implanted Type Area Finish Saw Operator Device Identifier Shelf Expiration Date Model / Serial / Lot Shell Acet Trident Ii 50mm - [id number] Implanted:Qty: 1 on 12/05/2020 by Rodolfo Park DO at OR [facility] Right: Hip KANDICE : ORTHOPAEDICS 09/04/2024 702-04-50D / / [id number] Trident Acetabular X3 0 36 D - [id number] Implanted:Qty: 1 on 12/05/2020 by Rodolfo Park DO at OR [facility] Right: Hip KANDICE : ORTHOPAEDICS 09/14/2025 723-00-36D / / [id number] Hip Hd Nk Alumina Md D 36/ 25 - [id number] Implanted:Qty: 1 on 12/05/2020 by Rodolfo Park DO at OR [facility] Right: Hip KANDICE : ORTHOPAEDICS 10/03/2025 6570-0-436 / / [id number] Accolade Ii 127 Deg Sz 4 - [id number] Implanted:Qty: 1 on 12/05/2020 by Rodolfo Park DO at OR [facility] Right: Hip KANDICE : ORTHOPAEDICS 11/07/2025 [id number] / / [id number] documented as of this encounter Visit Diagnoses [...] the patient have Health Care Power of Cleaning Associate? Yes, not currently available Care Teams Clinical Studies Specialist Relationship Specialty Start Date End Date Roseann Plummer MD [address] [place] [address] PCP - General Internal Medicine 11/05/22 documented as of this encounter
--- OUTSIDE RECORDS SUMMARY | 2024-08-30 22:36 | External Medical Summary | Summary of Care ---
Author Name Unknown Organization [facility] Address [address] [place] [address] Phone [phone] Care Team Providers Care Poker Manager Name Role Phone Roseann Plummer MD Primary Care Provider Encounter Details Date Type Department Care Team ([facility] st Contact Info) Description 05/12/2024 Population Health External Data Unspecified Department Allergies Active Allergy Reactions Criticality Noted Date Comments Buspirone Rash 11/01/2022 documented as of this encounter (statuses as of 05/12/2024) Medications Medication Sig Dispensed Refills Start Date [...] Shortness of Breath. 360 mL 10/07/2023 Active Eliquis 5 MG Oral Tablet (Apixaban) [...] on the skin daily. 28 Patch 5 12/16/2023 Active Potassium Chloride ER 20 MEQ [...] FOR COUGH 18 g 5 05/08/2024 Active Hospital, Clinic, or Other Facility Administered Medication Ordered Dose Route Frequency Start Date End Date Status Albuterol Sulfate (Proventil) (2.5 MG/3ML) 0.083% inhalation solution 2.5 mgIndications:COPD, mild (HCC) 2.5 mg NEBULIZER PRN 10/11/2022 Active documented as of this encounter (statuses as of 05/12/2024) Active Problems Problem Noted Date Diagnosed Date [...] as of this encounter (statuses as of 05/12/2024) Resolved Problems Problem Noted Date Diagnosed Date Resolved Date Chronic kidney disease, stage 3a 10/08/2022 03/01/2023 Overview: Per CKD protocol Substance abuse 05/25/2022 03/01/2023 Thrombocytopenia 05/25/2022 09/06/2023 Food insecurity 03/06/2021 01/11/2022 Overview: Per [facility] Protocol documented as of this encounter (statuses as of 05/12/2024) Immunizations Name Administration Dates Next Due Pneumococcal [...] 11:40 AM EST Office Visit Family Practice [facility] [address] [place] [address] Roseann Plummer MD [address] [place] [address] Health Maintenance Due Date Last Done Comments [...] encounter Medical Devices Implanted Type Area Head Machinist Device Identifier Shelf Expiration Date Model / Serial / Lot Shell Acet Trident Ii 50mm - [id number] Implanted:Qty: 1 on 12/05/2020 by Rodolfo Park DO at OR [facility] Right: Hip KANDICE : ORTHOPAEDICS 09/04/2024 702-04-50D / / [id number] Trident Acetabular X3 0 36 D - [id number] Implanted:Qty: 1 on 12/05/2020 by Rodolfo Park DO at OR [facility] Right: Hip KANDICE : ORTHOPAEDICS 09/14/2025 723-00-36D / / [id number] Hip Hd Perry Hummel 36/ 25 - [id number] Implanted:Qty: 1 on 12/05/2020 by Rodolfo Park DO at OR [facility] Right: Hip KANDICE : ORTHOPAEDICS 10/03/2025 6570-0-436 / / [id number] Accolade Ii 127 Deg Sz 4 - [id number] Implanted:Qty: 1 on 12/05/2020 by Rodolfo Park DO at OR [facility] Right: Hip KANDICE : ORTHOPAEDICS 11/07/2025 9888-4080 / / [id number] documented as of this encounter Advance Directives [...] the patient have Health Care Power of Software Support Specialist? Yes, not currently available Care Teams Poker Manager Relationship Specialty Start Date End Date Roseann Plummer MD [address] [place] [address] PCP - General Internal Medicine 11/05/22 documented as of this encounter
--- OUTSIDE RECORDS SUMMARY | 2024-08-30 22:36 | External Medical Summary | Summary of Care ---
Author Name Unknown Organization [facility] Address [address] [place] [address] Phone [phone] Care Team Providers Care Distribution Operation Supervisor Name Role Phone Roseann Plummer MD Primary Care Provider Reason for Visit * Reason Comments eRx-Medication Refill Encounter Details Date Type Department Care Team (Late st Contact Info) Description 05/16/2024 Refill Family Practice [facility] [address] [facility] [address] [facility] [address] [facility] [address] Allergies Active Allergy Reactions Criticality Noted Date Comments Buspirone Rash 11/01/2022 documented as of this encounter (statuses as of 05/18/2024) Medications Medication Sig Dispensed Refills Start Date [...] BEFORE BEDTIME 180 Tablet 1 05/18/2024 Active Eliquis 5 MG Oral Tablet (Apixaban) take 1 tablet by mouth every morning and BEFORE BEDTIME 180 Tablet 1 11/19/2023 Discontinued Hospital, Clinic, or Other Facility Administered Medication Ordered Dose Route Frequency Start Date End Date Status Albuterol Sulfate (Proventil) (2.5 MG/3ML) 0.083% inhalation solution 2.5 mgIndications:COPD, mild (HCC) 2.5 mg NEBULIZER PRN 10/11/2022 Active documented as of this encounter (statuses as of 05/18/2024) Active Problems Problem Noted Date Diagnosed Date [...] as of this encounter (statuses as of 05/18/2024) Resolved Problems Problem Noted Date Diagnosed Date Resolved Date Chronic kidney disease, stage 3a 10/08/2022 03/01/2023 Overview: Per CKD protocol Substance abuse 05/25/2022 03/01/2023 Thrombocytopenia 05/25/2022 09/06/2023 Food insecurity 05/07/2022 05/14/2024 Overview: Per [facility] Protocol Food insecurity 03/06/2021 01/11/2022 Overview: Per [facility] Protocol documented as of this encounter (statuses as of 05/18/2024) Immunizations Name Administration Dates Next Due Pneumococcal [...] Notes * Telephone Encounter - Lali Sanchez RPh - 05/18/2024 2:06 PM EDTSigned Prescriptions: Disp Refills Eliquis 5 MG Oral Tablet (Apixaban) 180 Ta*1 Sig: TAKE ONE TABLET BY MOUTH EVERY MORNING AND TAKE ONE TABLET BY MOUTH BEFORE BEDTIMEAuthorizing Provider: ROSEANN PLUMMER User: LALI SANCHEZ documented in this encounter Plan of Treatment Upcoming Encounters Date Type Department Care Team (Late st Contact Info) Description 07/08/2024 11:40 AM EST Office Visit Family Practice [facility] [address] [place] [address] Roseann Plummer MD [address] [place] [address] Health Maintenance Due Date Last Done Comments [...] this encounter Medical Devices Implanted Type Area Lottery Sales Clerk Device Identifier Shelf Expiration Date Model / Serial / Lot Shell Acet Trident Ii 50mm - [id number] Implanted:Qty: 1 on 12/05/2020 by Rodolfo Park DO at OR [facility] Right: Hip KANDICE : ORTHOPAEDICS 09/04/2024 702-04-50D / / [id number] Trident Acetabular X3 0 36 D - [id number] Implanted:Qty: 1 on 12/05/2020 by Rodolfo Park DO at OR [facility] Right: Hip KANDICE : ORTHOPAEDICS 09/14/2025 723-00-36D / / [id number] Hip Hd Perry Hummel 36/ 25 - [id number] Implanted:Qty: 1 on 12/05/2020 by Rodolfo Park DO at OR [facility] Right: Hip KANDICE : ORTHOPAEDICS 10/03/2025 6570-0-436 / / [id number] Accolade Ii 127 Deg Sz 4 - [id number] Implanted:Qty: 1 on 12/05/2020 by Rodolfo Park, at OR [facility] Right: Hip KANDICE : ORTHOPAEDICS 11/07/2025 [id number] / / [id number] documented as of this encounter Advance Directives [...] the patient have Health Care Power of Flake Cutter Operator? Yes, not currently available Care Teams Distribution Operation Supervisor Relationship Specialty Start Date End Date Roseann Plummer MD [address] [facility] [place] [address] PCP - General Internal Medicine 11/05/22 documented as of this encounter
--- OUTSIDE RECORDS SUMMARY | 2024-08-30 22:36 | External Medical Summary | Summary of Care ---
Author Name Unknown Organization [facility] Address [address] [place] [address] Phone [phone] Care Team Providers Care Garment Fitter Name Role Phone Roseann Plummer MD Primary Care Provider Reason for Visit * Reason Onset Date Comments No Show 05/15/2024 [facility] No Show Auto mation Encounter Details Date Type Department Care Team ([facility] st Contact Info) Description 05/15/2024 Telephone Family Practice [facility] [address] [place] [id number] Roseann Plummer MD [address] [place] [address] No Show ([facility] No Show Automation) Allergies Active Allergy Reactions Criticality Noted Date Comments Buspirone Rash 11/01/2022 documented as of this encounter (statuses as of 05/15/2024) Medications Medication Sig Dispensed Refills Start Date [...] as of this encounter (statuses as of 05/15/2024) Active Problems Problem Noted Date Diagnosed Date [...] as of this encounter (statuses as of 05/15/2024) Resolved Problems Problem Noted Date Diagnosed Date Resolved Date Chronic kidney disease, stage 3a 10/08/2022 03/01/2023 Overview: Per CKD protocol Substance abuse 05/25/2022 03/01/2023 Thrombocytopenia 05/25/2022 09/06/2023 Food insecurity 05/07/2022 05/14/2024 Overview: Per [facility] Protocol Food insecurity 03/06/2021 01/11/2022 Overview: Per [facility] Protocol documented as of this encounter (statuses as of 05/15/2024) Immunizations Name Administration Dates Next Due Pneumococcal [...] encounter Miscellaneous Notes * Telephone Encounter - [place], No Show - 05/15/2024 6:22 AM EDT Dear Bhumika Flores, Looks like you missed an appointment with ROSEANN PLUMMER on 05/08/2024 at 10:40 AM. If you haven't already rescheduled, you have a couple of options: Reschedule in [email or web address] Call us at [phone] Can't make a future appointment? Cancel and let someone else have your spot! It's easy to do via [employer] or by calling us. Thanks for trusting [facility] with your care. We hope to see you back in our office soon. Sincerely, ROSEANN PLUMMER documented in this encounter Plan of Treatment Upcoming Encounters Date Type Department Care Team (Late st Contact Info) Description 05/18/2024 11:20 AM EDT Office Visit [facility] [address] [address] Roseann Plummer MD [address] [phone] 07/08/2024 11:40 AM EST Office Visit [facility] [address] [address] Roseann Plummer MD [address] [address] Health Maintenance Due Date Last Done Comments [...] this encounter Medical Devices Implanted Type Area Street Car Mechanic Device Identifier Shelf Expiration Date Model / Serial / Lot Shell Acet Trident Ii 50mm - [id number] Implanted:Qty: 1 on 12/05/2020 by Rodolfo Park DO at OR [facility] Right: Hip KANDICE : ORTHOPAEDICS 09/04/2024 702-04-50D / / [id number] Trident Acetabular X3 0 36 D - [id number] Implanted:Qty: 1 on 12/05/2020 by Rodolfo Park DO at OR [facility] Right: Hip KANDICE : ORTHOPAEDICS 09/14/2025 723-00-36D / / [id number] Hip Hd Perry Hummel [id number] Implanted:Qty: 1 on 12/05/2020 by Rodolfo Park DO at OR [facility] Right: Hip KANDICE : ORTHOPAEDICS 10/03/2025 6570-0-436 / / [id number] Accolade Ii 127 Deg Sz - [id number] Implanted:Qty: 1 on 12/05/2020 by Rodolfo Park, DO at OR [facility] Right: Hip KANDICE : ORTHOPAEDICS 11/07/2025 [id number] / / [id number] documented as of this encounter Advance Directives [...] the patient have Health Care Power of Flight Crew Time Clerk? Yes, not currently available Care Teams Garment Fitter Relationship Specialty Start Date End Date Roseann Plummer MD [address] [place] [phone] PCP - General Internal Medicine 11/05/22 documented as of this encounter
--- OUTSIDE RECORDS SUMMARY | 2024-08-30 22:36 | External Medical Summary ---
Author Name Unknown Address Unknown Organization K1H:[facility] - [address] [facility] [address] Laboratory Report Ordering Provider Test Date Status TIFFANI DAVIS 05/26/2024 13:41:00 Final Observation Date Value Abnormality Reference (Units ) Status Occult Blood (EIA) 05/26/2024 13:41:00 Negative N egative Final Performing Location [facility] - [address] [facility] [id number]
--- OUTSIDE RECORDS SUMMARY | 2024-08-30 22:36 | External Medical Summary | Summary of Care ---
Author Name Unknown Organization [facility] Address [address] [place] [address] Phone [phone] Care Team Providers Care Vessel Master Name Role Phone Roseann Plummer MD Primary Care Provider Reason for Visit * Reason Onset Date Comments No Show 05/28/2024 [facility] No Show Auto mation Encounter Details Date Type Department Care Team ([facility] st Contact Info) Description 05/28/2024 Telephone Family Practice [facility] [address] [place] [address] Roseann Plummer MD [address] [place] [address] No Show ([facility] No Show Automation) Allergies Active Allergy Reactions Criticality Noted Date Comments Buspirone Rash 11/01/2022 documented as of this encounter (statuses as of 05/28/2024) Medications Medication Sig Dispensed Refills Start Date [...] as of this encounter (statuses as of 05/28/2024) Active Problems Problem Noted Date Diagnosed Date [...] as of this encounter (statuses as of 05/28/2024) Resolved Problems Problem Noted Date Diagnosed Date Resolved Date Chronic kidney disease, stage 3a 10/08/2022 03/01/2023 Overview: Per CKD protocol Substance abuse 05/25/2022 03/01/2023 Thrombocytopenia 05/25/2022 09/06/2023 Food insecurity 05/07/2022 05/14/2024 Overview: Per [facility] Protocol Food insecurity 03/06/2021 01/11/2022 Overview: Per [facility] Protocol documented as of this encounter (statuses as of 05/28/2024) Immunizations Name Administration Dates Next Due Pneumococcal [...] encounter Miscellaneous Notes * Telephone Encounter - [facility], No Show - 05/28/2024 5:05 AM EDT Dear Bhumika Flores, Looks like you missed an appointment with ROSEANN PLUMMER on 05/25/2024 at 04:20 PM. If you haven't already rescheduled, you have a couple of options: Reschedule in [email or web address] Call us at [phone] Can't make a future appointment? Cancel and let someone else have your spot! It's easy to do via [employer] or by calling us. Thanks for trusting [facility] with your care. We hope to see you back in our office soon. Sincerely, ROSEANN PLUMMER documented in this encounter Plan of Treatment Upcoming Encounters Date Type Department Care Team (Late st Contact Info) Description 06/01/2024 10:20 AM EST Office Visit [facility] [address] [place] [address] Emeli Robert PA-C [address] [place] [address] 07/08/2024 11:40 AM EST Office Visit Family [facility] [address] [address] Roseann Plummer MD [address] [address] Health Maintenance Due Date Last Done Comments [...] encounter Medical Devices Implanted Type Area Automotive Painter Helper Device Identifier Shelf Expiration Date Model / Serial / Lot Shell Acet Trident Ii 50mm - [id number] Implanted:Qty: 1 on 12/05/2020 by Rodolfo Park, DO at OR [facility] Right: Hip KANDICE : ORTHOPAEDICS 09/04/2024 702-04-50D / / [id number] Trident Acetabular X3 0 36 D - [id number] Implanted:Qty: 1 on 12/05/2020 by Rodolfo Park, DO at OR [facility] Right: Hip KANDICE : ORTHOPAEDICS 09/14/2025 723-00-36D / / [id number] Hip Hd Perry Hummel - [id number] Implanted:Qty: 1 on 12/05/2020 by Rodolfo Park DO at OR [facility] Right: Hip KANDICE : ORTHOPAEDICS 10/03/2025 6570-0-436 / / [id number] Accolade Ii 127 Deg Sz 4 - [id number] Implanted:Qty: 1 on 12/05/2020 by Rodolfo Park DO at OR [facility] Right: Hip KANDICE : ORTHOPAEDICS 11/07/2025 [id number] / / [id number] documented as of this encounter Advance Directives [...] the patient have Health Care Power of Roving Department End Finder? Yes, not currently available Care Teams Vessel Master Relationship Specialty Start Date End Date Roseann Plumemr MD [address] [place] [address] PCP - General Internal Medicine 11/05/22 documented as of this encounter
--- OUTSIDE RECORDS SUMMARY | 2024-08-30 22:36 | External Medical Summary | Summary of Care ---
Author Name Unknown Organization [facility] Address [address] [place] [address] Phone [phone] Care Team Providers Care Organizational Consultant Name Role Phone Roseann Plummer MD Primary Care Provider Reason for Visit * Reason Onset Date Comments Medication Refill 05/07/2024 Encounter Details Date Type Department Care Team ([facility] st Contact Info) Description 05/07/2024 Refill Family Practice [facility] [address] [place] [address] Roseann Plummer MD [address] [place] [address] Allergies Active Allergy Reactions Criticality Noted Date Comments Buspirone Rash 11/01/2022 documented as of this encounter (statuses as of 05/11/2024) Medications Medication Sig Dispensed Refills Start Date [...] FOR COUGH 18 g 5 05/08/2024 Active Ferrous Gluconate 324 (38 Fe) MG Oral Tablet Take 1 Tablet by mouth daily with breakfast. 30 Tablet 2 11/13/2023 4 Discontinue d(Refill) Pantoprazole Sodium 40 MG Oral Tablet Delayed Release (Protonix) Take 1 Tablet by mouth in the morning. In the morning.. 90 Tablet 1 02/13/2024 4 Discontinue d(Refill) Hospital, Clinic, or Other Facility Administered Medication Ordered Dose Route Frequency Start Date End Date Status Albuterol Sulfate (Proventil) (2.5 MG/3ML) 0.083% inhalation solution 2.5 mgIndications:COPD, mild (HCC) 2.5 mg NEBULIZER PRN 10/11/2022 Active documented as of this encounter (statuses as of 05/11/2024) Active Problems Problem Noted Date Diagnosed Date [...] as of this encounter (statuses as of 05/11/2024) Resolved Problems Problem Noted Date Diagnosed Date Resolved Date Chronic kidney disease, stage 3a 10/08/2022 03/01/2023 Overview: Per CKD protocol Substance abuse 05/25/2022 03/01/2023 Thrombocytopenia 05/25/2022 09/06/2023 Food insecurity 03/06/2021 01/11/2022 Overview: Per [facility] Protocol documented as of this encounter (statuses as of 05/11/2024) Immunizations Name Administration Dates Next Due Pneumococcal [...] Telephone Encounter - Roseann Plummer MD - 05/11/2024 10:47 AM EDT Signed Prescriptions: Disp Refills Ferrous Gluconate 324 (38 Fe) MG Oral Tabl*90 Tab*1 Sig: Take 1 Tablet by mouth daily with breakfast. Authorizing Provider: ROSEANN PLUMMER Pantoprazole Sodium 40 MG Oral Tablet Gaby*90 Tab*1 Sig: Take 1 Tablet by mouth in the morning. Authorizing Provider: ROSEANN PLUMMER Ordering User: RODOLFO ANDREA * Telephone Encounter - Rodolfo Frost, [facility] - 05/08/2024 6:50 PM EDTPending Prescriptions: Disp Refills Ferrous Gluconate 324 (38 Fe) MG Oral Tabl*90 Tab*1 Sig: Take 1 Tablet by mouth daily with breakfast. Signed Prescriptions: Disp Refills Pantoprazole Sodium 40 MG Oral Tablet Gaby*90 Tab*1 Sig: Take 1 Tablet by mouth in the morning. Authorizing Provider: ROSEANN PLUMMER Ordering User: RODOLFO ANDREA * Telephone Encounter - Rodolfo Frost [facility] - 05/08/2024 6:50 PM EDT Pending Prescriptions: Disp Refills Ferrous Gluconate 324 (38 Fe) MG Oral Tabl*90 Tab*1 Sig: Take 1 Tablet by mouth daily with breakfast. Signed Prescriptions: Disp Refills Pantoprazole Sodium 40 MG Oral Tablet Gaby*90 Tab*1 Sig: Take 1 Tablet by mouth in the morning. Authorizing Provider: ROSEANN PLUMMER Ordering User: RODOLFO ANDREA 02/21/2024 (in office), Visit date not found (telemedicine) 05/08/2024 If no future appointments scheduled, and last appointment is greater than a year ago, please schedule patient for a follow-up appointment Last date the medication was ordered: 11/13/23 Pharmacy: [facility] [address] Is this request for a controlled substance?No [...] 11:40 AM EST Office Visit Family Practice [facility] [address] [place] [address] Roseann Plummer MD [address] [place] [address] Health Maintenance Due Date Last Done Comments [...] this encounter Medical Devices Implanted Type Area Range Technician Device Identifier Shelf Expiration Date Model / Serial / Lot Shell Acet Trident Ii 50mm - [id number] Implanted:Qty: 1 on 12/05/2020 by Rodolfo Park DO at OR [facility] Right: Hip KANDICE : ORTHOPAEDICS 09/04/2024 702-04-50D / / [id number] Trident Acetabular X3 0 36 D - [id number] Implanted:Qty: 1 on 12/05/2020 by Rodolfo Park DO at OR [facility] Right: Hip KANDICE : ORTHOPAEDICS 09/14/2025 723-00-36D / / [id number] Hip Hd Perry Hummel 36/ 25 - [id number] Implanted:Qty: 1 on 12/05/2020 by Rodlofo Park DO at OR [facility] Right: Hip KANDICE : ORTHOPAEDICS 10/03/2025 6570-0-436 / / [id number] Accolade Ii 127 Deg Sz 4 - [id number] Implanted:Qty: 1 on 12/05/2020 by Rodolfo Park DO at OR [facility] Right: Hip KANDICE : ORTHOPAEDICS 11/07/2025 [id number] / / [id number] documented as of this encounter Advance Directives [...] the patient have Health Care Power of Form Block Maker? Yes, not currently available Care Teams Organizational Consultant Relationship Specialty Start Date End Date Roseann Plummer MD [address] [place] [phone] PCP - General Internal Medicine 11/05/22 documented as of this encounter
[2024-08-30] MEDS: methylPREDNISolone 125 MG/2 ML VIAL IV STA (23:00)
--- NOTE | 2024-08-30 23:07 | Emergency Department Note ---
History of Present Illness General Chief Complaint: Hypertension Stated Complaint: HIGH BP, CHEST PAIN, TACHACARDIA Time Seen by Provider: 08/30/24 22:42 History of Present Illness Provider Complaint: shortness of breath Onset (ago): day(s) (2) Severity: moderate Consistency/Duration: + progressively worsening Maximum Pain Intensity: 7 Relieved By: + nothing Exacerbated By: + exertion and + coughing Known history of: COPD Associated symptoms: + chest pain, + cough, + wheezing, + sputum production and + chest congestion; no fever, no hemoptysis, no nausea/vomiting or no rash Related Data Home oxygen amount: 4 liters Home Medications Medication Instructions Recorded Confirmed Type amlodipine 10 mg tablet 10 mg PO QAM 05/16/22 05/09/24 History albuterol sulfate 90 mcg/actuation 2 puff inhalation Q6H PRN Cough 09/12/22 05/09/24 History aerosol inhaler apixaban 5 mg tablet (Eliquis) 5 mg PO BID #63 tabs 09/21/22 05/09/24 Rx furosemide 40 mg tablet 40 mg PO QAM #30 tabs 09/21/22 05/09/24 Rx methadone 10 mg/5 mL oral solution 100 mg PO QAM 06/25/23 05/09/24 History nicotine 7 mg/24 hr daily 1 patch transdermal DAILY 06/25/23 05/09/24 History transdermal patch pantoprazole 40 mg tablet,delayed 40 mg PO QAM 06/25/23 05/09/24 History release metoprolol succinate 25 mg 12.5 mg PO BID 08/23/23 05/09/24 History tablet,extended release 24 hr potassium chloride 10 mEq 20 meq PO BID 11/20/23 05/09/24 History tablet,extended release(part/cryst) folic acid 1 mg tablet 1 mg PO QAM 01/21/24 05/09/24 History magnesium oxide 400 mg (241.3 mg 800 mg PO HS 05/09/24 05/09/24 History magnesium) tablet Allergies Allergy/AdvReac Type Severity Reaction Status Date / Time fluticasone furoate AdvReac Intermediate INTENSE Verified 03/09/24 08:50 [From Trelegy Ellipta] HEADACHES umeclidinium AdvReac Intermediate INTENSE Verified 03/09/24 08:50 [From Trelegy Ellipta] HEADACHES vilanterol AdvReac Intermediate INTENSE Verified 03/09/24 08:50 [From Trelegy Ellipta] HEADACHES buspirone [From BuSpar] AdvReac Mild Rash Verified 03/09/24 08:50 olive oil AdvReac Unknown reacts Verified 03/09/24 08:50 with methadone Past Med/Surg History Problem List (Updated 08/31/24 @ 00:12 by Piotr Hoffman MD) Opioid use disorder, severe, in sustained remission Cluster B personality disorder Alcohol use disorder, moderate, dependence MDD (major depressive disorder), recurrent episode, moderate Alcoholism /alcohol abuse Acute on chronic respiratory failure with hypoxemia Acute exacerbation of chronic obstructive pulmonary disease (Acute) Symptomatic cholelithiasis Edema, peripheral (Acute) 11/20/23 Hypomagnesemia (Acute) 11/20/23 Hypokalemia (Acute) 11/20/23 Frequent PVCs (Acute) Bradycardia (Acute) Acute on chronic respiratory failure with hypoxia and hypercapnia 08/23/23 History of alcohol abuse Tobacco use Sepsis due to pneumonia 08/23/23 Parainfluenza infection (Acute) 08/23/23 Pneumonia (Acute) 08/23/23 Encounter for pre-operative examination Pulmonary embolism dx 08/2022 - unknown the cause. treated with anticoagulants. Pulmonary hypertension 09/13/22 Hypercapnic respiratory failure 09/13/22 Muscle cramp (Acute) 09/13/22 PAC (premature atrial contraction) (Acute) Frequent PVCs (Acute) Acute hypoxemic respiratory failure (Acute) 09/13/22 Methadone maintenance therapy patient GERD (gastroesophageal reflux disease) HTN (hypertension) COPD (chronic obstructive pulmonary disease) (Acute) Medical History Edema of both lower extremities Difficult intravenous access Pulmonary hypertension Follow with [facility] Hx of pulmonary embolus dx 08/2022 - unknown the cause. treated with anticoagulants. 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 Down to three drinks a week GERD (gastroesophageal reflux disease) History of aspiration pneumonia 08/2022 from vomiting -- reports she "passed out and vomited while she was incoherent" per PAT RN COPD (chronic obstructive pulmonary disease) well controlled currently, uses 4lpm oxygen via n/c continuously Hx of sinus bradycardia episode when vitamin levels were low. no current issue History of endocarditis --- r/t IV drug use. S/P transesophageal echocardiogram (RENATA) Lung nodule monitoring Constipation Anxiety On home oxygen therapy 4lpm via n/c daily Recurrent major depressive disorder Surgical History S/P right cataract extraction Status post total hip replacement, right Family History Other Family history non-contributory No family history of adverse response to anesthesia Social History Smoking Status: Current every day smoker Tobacco Type: Cigarettes Cigarettes Per Day: 3; Second Hand Exposure: No; Do You Dip or Chew Tobacco: No; Hx Alcohol Use: Yes Alcohol type: hard liquor Hx Substance Use: Yes Last Used Substance: Days (ago) Last Used Substance Other:: remote hx of cocaine and heroin use (2008); med marijuana ~3-4x/week now Preferred Language: [place]al[place] Communication Ability: Effective Window Clerk Required: No Beliefs That Will Affect Care: None Current Living Situation: Alone Feels Safe at Home: Yes Assistive Devices: Oxygen - Continuous Physical Exam 2 Vital Signs: Vital Signs - 24 hr 08/30/24 22:28 08/30/24 22:33 08/30/24 22:39 Temperature 37.3 C Temperature Source Oral Pulse Rate 80 Pulse Rate [Finger ] Pulse Rate from Sp O2 Sensor Respiratory Rate 22 Respiratory Effort / Characteristics Non-Labored Respiratory Depth Normal Normal Blood Pressure 151/63 H 183/79 H Blood Pressure Susy n 92 118 Blood Pressure Pos ition Sitting Pulse Oximetry 90 Oxygen Delivery Me thod Nasal Cannula Oxygen Flow Rate 4 Sepsis Recent Feve r Within 48 Hours No Sepsis New/Unexpla ined Change in Men cecelia Status No Sepsis Action Take n by Nursing No Action Required 08/30/24 22:41 08/30/24 22:42 08/30/24 22:46 Temperature Temperature Source Pulse Rate 86 79 Pulse Rate [Finger ] Pulse Rate from Sp O2 Sensor 80 Respiratory Rate 21 Respiratory Effort / Characteristics Respiratory Depth Blood Pressure Blood Pressure Susy n Blood Pressure Pos ition Pulse Oximetry 96 Oxygen Delivery Me thod Nasal Cannula Oxygen Flow Rate Sepsis Recent Feve r Within 48 Hours Sepsis New/Unexpla ined Change in Men cecelia Status Sepsis Action Take n by Nursing 08/30/24 23:17 Temperature Temperature Source Pulse Rate Pulse Rate [Finger ] 74 Pulse Rate from Sp O2 Sensor Respiratory Rate 26 H Respiratory Effort / Characteristics Non-Labored Sponta neous Respiratory Depth Blood Pressure Blood Pressure Susy n Blood Pressure Pos ition Pulse Oximetry 94 Oxygen Delivery Me thod Nasal Cannula Oxygen Flow Rate 4 Sepsis Recent Feve r Within 48 Hours Sepsis New/Unexpla ined Change in Men cecelia Status Sepsis Action Take n by Nursing Physical Exam: Physical Exam GENERAL: Disheveled. HENT: Exam performed. -Head: Normocephalic and atraumatic. -Right Ear: External ear normal. No mastoid erythema -Left Ear: External ear normal. No mastoid erythema -Mouth/Throat: The oropharynx is clear and moist. No trismus in the jaw. Multiple missing teeth. No oropharyngeal exudate or tonsillar abscesses. EYES: Conjunctivae and EOM are normal. Pupils are equal, round, and reactive to light. Right eye exhibits no discharge. Left eye exhibits no discharge. No scleral icterus. NECK: Normal range of motion. Neck supple. No JVD present. CV: Normal rate, regular rhythm, normal heart sounds and intact distal pulses. There is no peripheral edema. Palpable radial pulses bue. PULM/CHEST: Diffuse expiratory wheezes bilaterally. ABD: The abdomen is soft and obese.There is no tenderness. There is no rebound, no guarding NEURO: She is alert and oriented to person, place, and time. She has normal strength. No cranial nerve deficit or sensory deficit. Coordination and gait normal. GCS eye subscore is 4. GCS verbal subscore is 5. GCS motor subscore is 6. Cerebellar tests wnl. Course Course 224: The patient was evaluated in room A9. A complete history and physical exam was performed Cardiac monitoring: An order was placed for continuous cardiac monitoring. The monitor shows a rate of 80 with sinus rhythm interpreted by me 0010: Vital signs stable on the patient's 4 L nasal cannula. Status post hour- long DuoNeb treatment and Solu-Medrol 125 mg the patient still having wheezing. Labs are unremarkable. Chest x-ray is unremarkable. [facility]. [facility] Medications Discontinued Medications Albuterol (Albut/Ipratrop 3mg/0.5mg Neb 3 Ml Vial) 12 ml NEB ONE ONE; Protocol Stop: 08/30/24 22:47 Last Admin: 08/30/24 23:12 Dose: 12 ml Documented By: YAMILEX Methylprednisolone (Methylprednisolone 125 Mg/2 Ml Vial) 125 mg IV NOW STA Stop: 08/30/24 22:47 Last Admin: 08/30/24 23:00 Dose: 125 mg Documented By: DALLIN Ondansetron HCl (Ondansetron Inj 2 Mg/Ml 2 Ml Vial) 4 mg IV NOW STA Stop: 08/30/24 23:47 Last Admin: 08/30/24 23:50 Dose: 4 mg Documented By: DALLIN Medical Decision Making Laboratory Data Attestation: I reviewed the patient's lab results. 08/30/24 23:03 08/30/24 23:03 Lab Results 08/30/24 08/30/24 Range/Units 23:00 23:03 WBC 10.68 (4.8-10.8) K/ul RBC 4.07 L (4.20-5.40) M/uL Hgb 12.5 (12.0-16.0) g/dl Hct 38.4 (37.0-47.0) % MCV 94.3 (80.0-100.0) fL MCH 30.7 (25.0-34.0) pg MCHC 32.6 (32.0-36.0) g/dL RDW Std Deviation 43.0 (36.4-46.3) fL RDW Coeff of Cee 12.5 (11.5-14.5) % Plt Count 156 (130-400) K/uL MPV 10.2 (9.4-12.4) fL Immature Gran % (Auto) 0.7 % Neut % (Auto) 90.1 % Lymph % (Auto) 4.4 % Caroline % (Auto) 4.3 % Eos % (Auto) 0.2 % Baso % (Auto) 0.3 % Neut # (Auto) 9.62 H (1.40-6.50) K/uL Lymph # (Auto) 0.47 L (1.20-3.40) K/uL Caroline # (Auto) 0.46 (0.11-0.59) K/uL Eos # (Auto) 0.02 (0.00-0.50) K/uL Baso # (Auto) 0.03 (0.00-0.20) K/uL Immature Gran # (Auto) 0.08 (0.01-0.20) K/uL Polychromasia 1+ PT 11.2 (9.0-12.0) Seconds INR 1.0 (0.9-1.1) APTT 31 (21-31) Seconds PTT Ratio 1.2 VBG pH 7.44 H (7.36-7.41) VBG pCO2 51 H (38-50) mmHg VBG pO2 38 mmHg VBG HCO3 35 mmol/L VBG O2 Saturation 69.1 % VBG Base Excess 8.8 mEq/L Sodium 135 L (136-145) mmol/L Potassium 4.0 (3.5-5.1) mmol/L Chloride 96 L (98-107) mmol/L Carbon Dioxide 32 (21-32) mmol/L Anion Gap 7 (3-11) BUN 10 (6-23) mg/dl Creatinine 0.86 (0.6-1.2) mg/dl Est Cr Clr Drug Dosing Not Reportable eGFR 78.75 BUN/Creatinine Ratio 11.6 (10-20) Glucose 120 H (70-99(Fasting)) mg/dl Calcium 9.4 (8.6-10.3) mg/dl Troponin I High Sens 4.4 (0-14) pg/ml Lipase 24 (11-82) U/L SARS-CoV-2 (PCR) NEGATIVE (Negative) Influenza Type A (PCR) Negative (Neg) Influenza Type B (PCR) Negative (Neg) RSV (RT-PCR) Negative (Neg) Imaging Data Attestation: I personally reviewed and interpreted this imaging study as follows: My Impression: Chest x-ray negative. Airway clear. No pneumothorax. No consolidation. No cardiomegaly or cephalization.. No free air under the diaphragm. No fractures of the skeletal structures. ECG Data Attestation: I personally reviewed and interpreted this ECG as follows: Interpretation: EKG at 2244: Sinus rhythm with a rate of 79. OR QRS and QTc intervals within normal limits. No ST elevation or ST depression. [facility] Narrative 2242: The patient was evaluated in room A9. A complete history and physical exam was performed Cardiac monitoring: An order was placed for continuous cardiac monitoring. The monitor shows a rate of 80 with sinus rhythm interpreted by me 0010: Vital signs stable on the patient's 4 L nasal cannula. Status post hour- long DuoNeb treatment and Solu-Medrol 125 mg the patient still having wheezing. Labs are unremarkable. Chest x-ray is unremarkable. Patient will be admitted to [facility] hospitalist team. Impression & Plan COPD (chronic obstructive pulmonary disease) Discharge Plan Visit Data Chief Complaint: Hypertension Stated Complaint: HIGH BP, CHEST PAIN, TACHACARDIA ED Provider: Piotr Hoffman Discharge Problem: COPD (chronic obstructive pulmonary disease) Patient Disposition: Admitted As Inpatient Forms Stand Alone Forms: [facility] [email or web address] Prescriptions Prescriptions: No Action amlodipine 10 mg tablet 10 mg PO QAM albuterol sulfate 90 mcg/actuation HFA aerosol inhaler 2 puff INHALATION Q6H PRN (Reason: Cough) furosemide 40 mg Tablet 40 mg PO QAM Qty: 30 0RF Eliquis 5 mg tablet 5 mg PO BID Qty: 63 0RF methadone 10 mg/5 mL Solution 100 mg PO QAM Rx Instructions: IF NEED TO VERIFY--Marc @ [facility] @ [phone]. nicotine 7 mg/24 hr Patch 24 Hour 1 patch TRANSDERMAL DAILY pantoprazole 40 mg tablet,delayed release (DR/EC) 40 mg PO QAM metoprolol succinate 25 mg tablet extended release 24 hr 12.5 mg PO BID Rx Instructions: per pt takes half twice a day folic acid 1 mg tablet 1 mg PO QAM potassium chloride 10 mEq tablet,ER particles/crystals 20 meq PO BID magnesium oxide 400 mg (241.3 mg magnesium) tablet 800 mg PO HS Referrals Referrals: Roseann Plummer MD [Primary Care Provider] -
[2024-08-30 23:11] LABS: Base Excess VBG 8.8 mEq/L; HCO3 VBG 35 mmol/L; Oxygen Saturation VBG 69.1 %; PCO2 VBG 51 mmHg (38-50); PO2 VBG 38 mmHg; pH VBG 7.44 (7.36-7.41)
[2024-08-30] MEDS: ALBUT/IPRATROP 3MG/0.5MG NEB 3 ML VIAL NEB ONE (23:12)
[2024-08-30 23:25] LABS: Hematocrit (blood only) 38.4 % (37.0-47.0); Hemoglobin 12.5 g/dl (12.0-16.0); Mean Corpuscular Hemoglobin 30.7 pg (25.0-34.0); Mean Corpuscular Hgb Conc 32.6 g/dL (32.0-36.0); Mean Corpuscular Volume 94.3 fL (80.0-100.0); Mean Platelet Volume 10.2 fL (9.4-12.4); Platelet Count 156 K/uL (130-400); RDW Coefficient of Variation 12.5 % (11.5-14.5); Red Blood Count 4.07 M/uL (4.20-5.40); White Blood Count 10.68 K/ul (4.8-10.8)
[2024-08-30 23:35] LABS: Anion Gap 7 (3-11); BUN Creatinine Ratio 11.6 (10-20); Blood Urea Nitrogen 10 mg/dl (6-23); Calcium 9.4 mg/dl (8.6-10.3); Carbon Dioxide 32 mmol/L (21-32); Chloride 96 mmol/L (98-107); Glucose 120 mg/dl (70-99(Fasting)); Lipase 24 U/L (11-82); Sodium 135 mmol/L (136-145)
[2024-08-30 23:42] LABS: Troponin I High Sensitivity 4.4 pg/ml (0-14)
[2024-08-30 23:43] LABS: Basophils # (auto) 0.03 K/uL (0.00-0.20); Basophils % (auto) 0.3 %; Eosinophils # (auto) 0.02 K/uL (0.00-0.50); Eosinophils % (auto) 0.2 %; Immature Granulocytes # (auto) 0.08 K/uL (0.01-0.20); Immature Granulocytes % (auto) 0.7 %; Lymphocytes # (auto) 0.47 K/uL (1.20-3.40); Lymphocytes % (auto) 4.4 %; Monocytes # (auto) 0.46 K/uL (0.11-0.59); Monocytes % (auto) 4.3 %; Neutrophils # (auto) 9.62 K/uL (1.40-6.50); Neutrophils % (auto) 90.1 %; Polychromasia 1+
[2024-08-30] MEDS: ONDANSETRON INJ 2 MG/ML 2 ML VIAL IV STA (23:50)
[2024-08-30 23:51] LABS: Partial Thromboplastin Ratio 1.2; Partial Thromboplastin Time 31 Seconds (21-31); Prothrombin Time 11.2 Seconds (9.0-12.0)
[2024-08-30 23:56] LABS: Influenza A virus by PCR Negative (Neg); Influenza B virus by PCR Negative (Neg); RSV by PCR Negative (Neg); SARS CoV2 RNA(COVID-19) Ceph NEGATIVE (Negative)
[2024-08-31] MEDS: LORazepam 2 MG/1 ML VIAL IV STA (00:16)
--- NOTE | 2024-08-31 01:09 | History & Physical Report ---
Date of Service August 31, 2024 Assessment & Plan (1) Acute exacerbation of chronic obstructive pulmonary disease: Plan: 59-year-old female with past medical history significant for COPD, on home oxygen 4 L, history of pulmonary emboli, hypertension, GERD, history of KARLA, lumbar degenerative disease, osteoarthritis, restless leg syndrome, history of anemia, methadone maintenance therapy, substance abuse in remission, ongoing tobacco abuse, depression, ongoing alcoholism comes in because of shortness of breath and chest pain. Patient says since yesterday evening she is having chest pain in the left lower chest. The pain is more when taking deep breath. She also feeling short of breath. Has cough with greenish phlegm which is chronic. She uses a 4 L oxygen all the time at home. Feeling hot and cold and chills but denies any fevers. Has headache. Vision is okay. No runny nose or sore throat. No nausea. Has some abdominal discomfort. Had couple of episodes of diarrhea today morning. No blood in stools. Micturating okay. Hemodynamics a re okay. Acute exacerbation of COPD History of COPD and on oxygen 4 L at home Ongoing tobacco abuse Will check procalcitonin levels IV Solu-Medrol and nebs [id number] and as needed Close monitor Chest pain In the left lower side The pain is more when taking deep breath Initial troponin negative and EKG okay Will follow serial enzymes and repeat EKG Alcoholism Currently drinking 3 drinks of mixed drinks daily Patient states she could not take gabapentin Will give thiamine and folic acid multivitamin Librium protocol and IV Ativan as needed Close monitor History of pulmonary emboli On Eliquis Hypertension On metoprolol succinate, amlodipine and Lasix Will monitor History of substance abuse in remission On methadone maintenance therapy GERD Protonix DVT prophylaxis On Eliquis Disposition Med/telemetry Full code. History of Present Illness Chief Complaint: Shortness of breath and chest pain Primary Care Provider: Roseann Plummer MD 59-year-old female with past medical history significant for COPD, on home o xygen 4 L, history of pulmonary emboli, hypertension, GERD, history of KARLA, lumbar degenerative disease, osteoarthritis, restless leg syndrome, history of anemia, methadone maintenance therapy, substance abuse in remission, ongoing tobacco abuse, depression, ongoing alcoholism comes in because of shortness of breath and chest pain. Patient says since yesterday evening she is having chest pain in the left lower chest. The pain is more when taking deep breath. She also feeling short of breath. Has cough with greenish phlegm which is chronic. She uses a 4 L oxygen all the time at home. Feeling hot and cold and chills but denies any fevers. Has headache. Vision is okay. No runny nose or sore throat. No nausea. Has some abdominal discomfort. Had couple of episodes of diarrhea today morning. No blood in stools. Micturating okay. Hemodynamics are okay. Past medical history. As mentioned above Past surgical history. Right total hip replacement. Social history. . Used to smoke 2 packs a day for 40 years. Currently smoking half pack a day. Patient says she is drinking 3 shots of mixed drink daily used to drink 6 shots in the past. History of heroin abuse currently on methadone. Family history. Mother had adenocarcinoma brain tumor. Sister had heart disease. Brother has hypertension. Allergies Allergy/AdvReac Type Severity Reaction Status Date / Time fluticasone furoate AdvReac Intermediate INTENSE Verified 03/09/24 08:50 [From Trelegy Ellipta] HEADACHES umeclidinium AdvReac Intermediate INTENSE Verified 03/09/24 08:50 [From Trelegy Ellipta] HEADACHES vilanterol AdvReac Intermediate INTENSE Verified 03/09/24 08:50 [From Trelegy Ellipta] HEADACHES buspirone [From BuSpar] AdvReac Mild Rash Verified 03/09/24 08:50 olive oil AdvReac Unknown reacts Verified 03/09/24 08:50 with methadone Home Medications Medication Instructions Recorded Confirmed Type amlodipine 10 mg tablet 10 mg PO QAM 05/16/22 08/31/24 History albuterol sulfate 90 mcg/actuation 2 puff inhalation Q6H PRN Cough 09/12/22 08/31/24 History aerosol inhaler furosemide 40 mg tablet 40 mg PO QAM #30 tabs 09/21/22 08/31/24 Rx methadone 10 mg/5 mL oral solution 100 mg PO QAM 06/25/23 08/31/24 History nicotine 7 mg/24 hr daily 1 patch transdermal DAILY 06/25/23 08/31/24 History transdermal patch pantoprazole 40 mg tablet,delayed 40 mg PO QAM 06/25/23 08/31/24 History release potassium chloride 10 mEq 20 meq PO AMHS 11/20/23 08/31/24 History tablet,extended release(part/cryst) folic acid 1 mg tablet 1 mg PO QAM 01/21/24 08/31/24 History magnesium oxide 400 mg (241.3 mg 800 mg PO HS 05/09/24 08/31/24 History magnesium) tablet apixaban 5 mg tablet (Eliquis) 5 mg PO AMHS 08/31/24 08/31/24 History metoprolol succinate 25 mg 12.5 mg PO AMHS 08/31/24 08/31/24 History tablet,extended release 24 hr umeclidinium 62.5 mcg-vilanterol 1 inh inhalation QAM PRN per pt 08/31/24 08/31/24 History 25 mcg/actuation powdr for inhalation (Anoro Ellipta) Past Med/Surg History Problem List (Updated 08/31/24 @ 00:12 by Piotr Hoffman MD) Opioid use disorder, severe, in sustained remission Cluster B personality disorder Alcohol use disorder, moderate, dependence MDD (major depressive disorder), recurrent episode, moderate Alcoholism /alcohol abuse Acute on chronic respiratory failure with hypoxemia Acute exacerbation of chronic obstructive pulmonary disease (Acute) Symptomatic cholelithiasis Edema, peripheral (Acute) 11/20/23 Hypomagnesemia (Acute) 11/20/23 Hypokalemia (Acute) 11/20/23 Frequent PVCs (Acute) Bradycardia (Acute) Acute on chronic respiratory failure with hypoxia and hypercapnia 08/23/23 History of alcohol abuse Tobacco use Sepsis due to pneumonia 08/23/23 Parainfluenza infection (Acute) 08/23/23 Pneumonia (Acute) 08/23/23 Encounter for pre-operative examination Pulmonary embolism dx 08/2022 - unknown the cause. treated with anticoagulants. Pulmonary hypertension 09/13/22 Hypercapnic respiratory failure 09/13/22 Muscle cramp (Acute) 09/13/22 PAC (premature atrial contraction) (Acute) Frequent PVCs (Acute) Acute hypoxemic respiratory failure (Acute) 09/13/22 Methadone maintenance therapy patient GERD (gastroesophageal reflux disease) HTN (hypertension) COPD (chronic obstructive pulmonary disease) (Acute) Medical History Edema of both lower extremities Difficult intravenous access Pulmonary hypertension Follow with [facility] Hx of pulmonary embolus dx 08/2022 - unknown the cause. treated with anticoagulants. 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 Down to three drinks a week GERD (gastroesophageal reflux disease) History of aspiration pneumonia 08/2022 from vomiting -- reports she "passed out and vomited while she was incoherent" per PAT RN COPD (chronic obstructive pulmonary disease) well controlled currently, uses 4lpm oxygen via n/c continuously Hx of sinus bradycardia episode when vitamin levels were low. no current issue History of endocarditis --- r/t IV drug use. S/P transesophageal echocardiogram (RENATA) Lung nodule monitoring Constipation Anxiety On home oxygen therapy 4lpm via n/c daily Recurrent major depressive disorder Surgical History S/P right cataract extraction Status post total hip replacement, right Family History Other Family history non-contributory No family history of adverse response to anesthesia Social History Smoking Status: Current every day smoker Tobacco Type: Cigarettes Cigarettes Per Day: 3; Second Hand Exposure: No; Do You Dip or Chew Tobacco: No; Hx Alcohol Use: Yes Alcohol type: hard liquor Hx Substance Use: Yes Last Used Substance: Days (ago) Last Used Substance Other:: remote hx of cocaine and heroin use (2008); med marijuana ~3-4x/week now Preferred Language: Belarusian Communication Ability: Effective Music Rehabilitation Therapist Required: No Beliefs That Will Affect Care: None Current Living Situation: Alone Feels Safe at Home: Yes Assistive Devices: Oxygen - Continuous Review of Systems Review of Systems: All systems reviewed & are unremarkable except as noted in HPI & below Physical Exam Physical Exam: General- Not in distress Head- atraumatic Eyes- PERRL. ENT- oropharynx clear Neck- supple, no JVD. Lungs- clear to auscultation b/l expiratory wheezing present, no crackles heard. Heart- regular rate and rhythm; no murmur, no gallop. Abdomen- normal bowel sounds, soft, nontender, no distension Extremities- trace pretibial edema present , no erythema seen Neuro- alert, oriented PERRL, no facial palsy; no dysarthria; moves extremities Results & Data Results & Data Vital Signs (Past 12 Hours) Vital Signs Temp Pulse Pulse Resp BP Pulse Ox O2 Del Method 08/31/24 00:30 85 13 90 08/31/24 00:27 84 18 90 08/31/24 00:26 Nasal Cannula 08/31/24 00:12 86 22 93 08/31/24 00:03 85 17 93 08/31/24 00:00 139/66 08/31/24 00:00 139/66 08/30/24 23:57 83 18 93 08/30/24 23:54 81 15 94 08/30/24 23:30 77 18 98 08/30/24 23:27 76 23 96 08/30/24 23:17 74 26 H 94 Nasal Cannula 08/30/24 23:15 75 21 95 08/30/24 23:09 76 17 96 08/30/24 23:08 141/75 H 08/30/24 22:48 77 16 94 08/30/24 22:46 Nasal Cannula 08/30/24 22:42 79 21 96 08/30/24 22:41 86 08/30/24 22:39 183/79 H 08/30/24 22:28 37.3 C 80 22 151/63 H 90 Nasal Cannula O2 Flow Rate 08/31/24 00:30 08/31/24 00:27 08/31/24 00:26 08/31/24 00:12 08/31/24 00:03 08/31/24 00:00 08/31/24 00:00 08/30/24 23:57 08/30/24 23:54 08/30/24 23:30 08/30/24 23:27 08/30/24 23:17 4 08/30/24 23:15 08/30/24 23:09 08/30/24 23:08 08/30/24 22:48 08/30/24 22:46 08/30/24 22:42 08/30/24 22:41 08/30/24 22:39 08/30/24 22:28 4 Diagnostic Findings Laboratory Results WBC 10.68 K/ul (4.8-10.8) 08/30/24 23:03 RBC 4.07 M/uL (4.20-5.40) L 08/30/24 23:03 Hgb 12.5 g/dl (12.0-16.0) 08/30/24 23:03 Hct 38.4 % (37.0-47.0) 08/30/24 23:03 MCV 94.3 fL (80.0-100.0) 08/30/24 23:03 MCH 30.7 pg (25.0-34.0) 08/30/24 23:03 MCHC 32.6 g/dL (32.0-36.0) 08/30/24 23:03 RDW Std Deviation 43.0 fL (36.4-46.3) 08/30/24 23: RDW Coeff of Cee 12.5 % (11.5-14.5) 08/30/24 23:03 Plt Count 156 K/uL (130-400) 08/30/24 23:03 MPV 10.2 fL (9.4-12.4) 08/30/24 23:03 Immature Gran % (Auto) 0.7 % 08/30/24 23:03 Neut % (Auto) 90.1 % 08/30/24 23:03 Lymph % (Auto) 4.4 % 08/30/24 23:03 Nye % (Auto) 4.3 % 08/30/24 23:03 Eos % (Auto) 0.2 % 08/30/24 23:03 Baso % (Auto) 0.3 % 08/30/24 23:03 Neut # (Auto) 9.62 K/uL (1.40-6.50) H 08/30/24 23:03 Lymph # (Auto) 0.47 K/uL (1.20-3.40) L 08/30/24 23:03 Nye # (Auto) 0.46 K/uL (0.11-0.59) 08/30/24 23:03 Eos # (Auto) 0.02 K/uL (0.00-0.50) 08/30/24 23:03 Baso # (Auto) 0.03 K/uL (0.00-0.20) 08/30/24 23:03 Immature Gran # (Auto) 0.08 K/uL (0.01-0.20) 08/30/24 23:03 Polychromasia 1+ 08/30/24 23:03 PT 11.2 Seconds (9.0-12.0) 08/30/24 23:03 INR 1.0 (0.9-1.1) 08/30/24 23:03 APTT 31 Seconds (21-31) 08/30/24 23:03 PTT Ratio 1.2 08/30/24 23:03 VBG pH 7.44 (7.36-7.41) H 08/30/24 23:03 VBG pCO2 51 mmHg (38-50) H 08/30/24 23:03 VBG pO2 38 mmHg 08/30/24 23:03 VBG HCO3 35 mmol/L 08/30/24 23:03 VBG O2 Saturation 69.1 % 08/30/24 23:03 VBG Base Excess 8.8 mEq/L 08/30/24 23:03 Sodium 135 mmol/L (136-145) L 08/30/24 23:03 Potassium 4.0 mmol/L (3.5-5.1) 08/30/24 23:03 Chloride 96 mmol/L (98-107) L 08/30/24 23:03 Carbon Dioxide 32 mmol/L (21-32) 08/30/24 23:03 Anion Gap 7 (3-11) 08/30/24 23:03 BUN 10 mg/dl (6-23) 08/30/24 23:03 Creatinine 0.86 mg/dl (0.6-1.2) 08/30/24 23:03 Est Cr Clr Drug Dosing Not Reportable 08/30/24 23:03 eGFR 78.75 08/30/24 23:03 BUN/Creatinine Ratio 11.6 (10-20) 08/30/24 23:03 Glucose 120 mg/dl (70-99(Fasting)) H 08/30/24 23:03 Calcium 9.4 mg/dl (8.6-10.3) 08/30/24 23:03 Troponin I High Sens 4.4 pg/ml (0-14) 08/30/24 23:03 Lipase 24 U/L (11-82) 08/30/24 23:03 SARS-CoV-2 (PCR) NEGATIVE (Negative) 08/30/24 23:00 Influenza Type A (PCR) Negative (Neg) 08/30/24 23:00 Influenza Type B (PCR) Negative (Neg) 08/30/24 23:00 RSV (RT-PCR) Negative (Neg) 08/30/24 23:00 ECG Additional Comments: ECG normal sinus rhythm at rate of 79. No acute ST changes seen. QTc 444 Code Status & VTE Plan VTE Prophylaxis Plan VTE Prophylaxis will be ordered: Yes
--- NOTE | 2024-08-31 01:22 | XRay Report ---
Exam(s): XR CXR 1 VIEW EXAM: XR Chest, 1 View CLINICAL HISTORY: Reason for exam: Chest pain, nonspecific. TECHNIQUE: Frontal view of the chest. COMPARISON: May 13, 2024 FINDINGS: Lungs: There are prominent interstitial markings throughout the mid to lower lungs suggesting underlying emphysema. There is a greater than previous suggesting superimposed edema or infiltrates, greatest in the left costophrenic angle. Pleural space: Unremarkable. No pneumothorax. Heart: Upper normal in size. Mediastinum: Unremarkable. Normal mediastinal contour. Bones/joints: Unremarkable. No acute fracture. Vasculature: The aorta is mildly calcified. Upper abdomen: Unremarkable as visualized. No pneumoperitoneum under the diaphragm. IMPRESSION: There are prominent interstitial markings throughout the mid to lower lungs suggesting underlying emphysema. There is a greater than previous suggesting superimposed edema or infiltrates, greatest in the left costophrenic angle. Electronically signed by: Lamberto Guzmán MD 08/31/24 01:21 AM
[2024-08-31] MEDS ORDERED: Ativan IV Alcohol Withdrawal--Active Protocol IV PRN (02:51)
[2024-08-31] MEDS ORDERED: chlordiazePOXIDE ALCOHOL WITHDRAWL 50MG PO STA (02:51)
[2024-08-31] MEDS ORDERED: cloNIDine HCL 0.1 MG TAB PO PRN (02:51)
[2024-08-31] MEDS ORDERED: NITROGLYCERIN SL 0.4 MG/TAB TAB SL PRN (02:51)
[2024-08-31] MEDS ORDERED: ALBUTEROL HFA 8 GM INHALER INH PRN (02:51)
[2024-08-31] MEDS ORDERED: LORazepam 2 MG/1 ML VIAL IV PRN (02:51)
[2024-08-31] MEDS: LORazepam 2 MG/1 ML VIAL IV PRN (03:49)
[2024-08-31 06:14] LABS: Albumin Level 3.6 gm/dl (3.4-5.0); Anion Gap 7 (3-11); Bilirubin Direct 0.1 mg/dl (0-0.2); Bilirubin,Total 0.3 mg/dl (0.2-1.0); Calcium 9.1 mg/dl (8.6-10.3); Carbon Dioxide 30 mmol/L (21-32); Chloride 96 mmol/L (98-107); Magnesium 1.8 mg/dl (1.7-2.4); Potassium 4.1 mmol/L (3.5-5.1); Sodium 133 mmol/L (136-145)
[2024-08-31 06:20] LABS: Alanine Aminotransferase 42 U/L (7-52); Alkaline Phosphatase 119 U/L (34-104); Aspartate Aminotransferase 39 U/L (13-39); BUN Creatinine Ratio 11.5 (10-20); Blood Urea Nitrogen 14 mg/dl (6-23); Glucose 211 mg/dl (70-99(Fasting)); Total Protein 7.2 gm/dl (6.0-8.3)
[2024-08-31] MEDS: chlordiazePOXIDE HCl 25 MG CAP PO SCH (06:33)
[2024-08-31 06:35] LABS: Troponin I High Sensitivity 4.3 pg/ml (0-14)
[2024-08-31 07:02] LABS: Folate (Folic Acid),Ser orPlas > 22.30 ng/ml (>5.38)
[2024-08-31 07:03] LABS: Vitamin B12 394 pg/ml (180-914)
[2024-08-31] MEDS: ALBUT/IPRATROP 3MG/0.5MG NEB 3 ML VIAL NEB SCH (07:17)
[2024-08-31 07:59] LABS: Anion Gap 7 (3-11); BUN Creatinine Ratio 12.1 (10-20); Blood Urea Nitrogen 15 mg/dl (6-23); Calcium 9.2 mg/dl (8.6-10.3); Carbon Dioxide 31 mmol/L (21-32); Chloride 96 mmol/L (98-107); Glucose 171 mg/dl (70-99(Fasting)); Potassium 4.1 mmol/L (3.5-5.1); Sodium 134 mmol/L (136-145)
[2024-08-31] MEDS ORDERED: Nursing to Pharmacy Communication SCH ×2 (08:15→11:00)
[2024-08-31 08:57] LABS: Phosphorus 2.5 mg/dl (2.5-4.9)
[2024-08-31] MEDS ORDERED: NICOTINE 14 MG/24 HR PATCH TD SCH (09:00)
[2024-08-31] MEDS ORDERED: methylPREDNISolone 125 MG/2 ML VIAL IV SCH (09:00)
--- NOTE | 2024-08-31 09:32 | Electrocardiogram Report ---
Test Reason : Blood Pressure : */* mmHG Vent. Rate : 72 BPM Atrial Rate : 72 BPM P-R Int : 126 ms QRS Dur : 82 ms QT Int : 412 ms P-R-T Axes : 67 81 75 degrees QTcB Int : 451 ms Normal sinus rhythm Normal ECG When compared with ECG of 30-Aug-2024 22:44, No significant change was found Confirmed by James Monroe ([id number]) on 08/31/2024 9:32:14 AM Referred By: REFERRED SELF Confirmed By: James Monroe
--- NOTE | 2024-08-31 09:32 | Electrocardiogram Report ---
Test Reason : Blood Pressure : */* mmHG Vent. Rate : 79 BPM Atrial Rate : 79 BPM P-R Int : 120 ms QRS Dur : 82 ms QT Int : 388 ms P-R-T Axes : 62 68 68 degrees QTcB Int : 444 ms Normal sinus rhythm Normal ECG When compared with ECG of 09-May-2024 10:28, No significant change was found Confirmed by James Monroe ([id number]) on 08/31/2024 9:32:08 AM Referred By: REFERRED SELF Confirmed By: James Monroe
[2024-08-31] MEDS: SODIUM CHLORIDE 0.9% 500 ML IV ONE (09:49)
[2024-08-31] MEDS: THIAMINE HCL 100 MG in SYRINGE 9 ML IV STA (09:50)
[2024-08-31] MEDS: methylPREDNISolone 40 MG in SYRINGE 0 ML IV SCH (09:55)
[2024-08-31] MEDS: NICOTINE 14 MG/24 HR PATCH TD SCH (09:55)
[2024-08-31] MEDS: UMECLIDINIUM/VILANTEROL 62.5/25MCG 7 PUFFS/INHALER INH SCH (09:56)
[2024-08-31] MEDS: MULTIVITAMIN TAB PO SCH (09:57)
[2024-08-31] MEDS: METOPROLOL SUCC 25MG EXT REL TAB PO SCH (09:57)
[2024-08-31] MEDS: amLODIPine BESYLATE 5 MG TAB PO SCH (09:57)
[2024-08-31] MEDS: PANTOprazole 40 MG TAB PO SCH (09:58)
[2024-08-31] MEDS: FOLIC ACID 1 MG TAB PO SCH (09:58)
[2024-08-31] MEDS: FUROSEMIDE 40 MG TAB PO SCH (09:58)
[2024-08-31] MEDS: APIXABAN 5 MG TABLET PO SCH (09:58)
[2024-08-31] MEDS: THIAMINE HCL 100 MG in SYRINGE 9 ML IV SCH (09:59)
[2024-08-31] MEDS: THIAMINE HCL 100 MG TAB PO SCH (10:05)
[2024-08-31] MEDS: POTASSIUM CHLORIDE CRTAB 20 MEQ TABCR PO SCH (10:05)
[2024-08-31] MEDS: METHADONE ORAL SOLN 2 MG/ML PO SCH (10:06)
[2024-08-31] MEDS: METHADONE PO SCH (10:06)
[2024-08-31] MEDS: ACETAMINOPHEN 325 MG TAB PO PRN (14:32)
[2024-08-31] MEDS: MAGNESIUM OXIDE 400 MG TAB PO SCH (20:27)
[2024-09-01] MEDS: guaiFENesin/DEXTROM SYRUP 100MG/10MG 5ML UDC PO PRN (00:23)
[2024-09-01 02:13] LABS: A calco-baum cmplx NotReported Not Detected (NotDetected); Bact fragilis Not Reported Not Detected (NotDetected); Blood Culture Id Panel PCR Panel Negative (NotDetected); C auris Not Reported Not Detected (NotDetected); Calbicans Not Reported Not Detected (NotDetected); Candida glabrata Not Reported Not Detected (NotDetected); Candida krusei Not Reported Not Detected (NotDetected); Cneoformans/gatti Not Reported Not Detected (NotDetected); Cparapsilosis Not Reported Not Detected (NotDetected); E cloacae compx Not Reported Not Detected (NotDetected); Efaecalis Not Reported Not Detected (NotDetected); Efaecium Not Reported Not Detected (NotDetected); Enterobacterales Not Reported Not Detected (NotDetected); Escherichia coli Not Reported Not Detected (NotDetected); H influenzae Not Reported Not Detected (NotDetected); K aerogenes Not Reported Not Detected (NotDetected); Koxytoca Not Reported Not Detected (NotDetected); Kpneumoniae grp Not Reported Not Detected (NotDetected); Lmonocyt Not Reported Not Detected (NotDetected); N meningitidis Not Reported Not Detected (NotDetected); P aeruginosa Not Reported Not Detected (NotDetected); Proteus spp Not Reported Not Detected (NotDetected); Salmonella spp Not Reported Not Detected (NotDetected); Staph lugdunensis Not Reported Not Detected (NotDetected); Staph spp. Not Reported Not Detected (NotDetected); Staphaureus Not Reported Not Detected (NotDetected); Staphepi Not Reported Not Detected (NotDetected); Stenmaltophilia Not Reported Not Detected (NotDetected); Strep agal(GrpB) Not Reported Not Detected (NotDetected); Strep pneum Not Reported Not Detected (NotDetected); Strep pyog (GrpA) Not Reported Not Detected (NotDetected); Strep spp Not Reported Not Detected (NotDetected)
[2024-09-01] MEDS: cefTRIAXone SODIUM 2,000 MG/50 ML BAG IV SCH (03:17)
[2024-09-01 05:07] LABS: Hemoglobin 11.7 g/dl (12.0-16.0); Mean Corpuscular Hemoglobin 31.6 pg (25.0-34.0); Mean Corpuscular Hgb Conc 32.5 g/dL (32.0-36.0); Mean Corpuscular Volume 97.3 fL (80.0-100.0); Mean Platelet Volume 10.5 fL (9.4-12.4); Platelet Count 171 K/uL (130-400); RDW Coefficient of Variation 12.7 % (11.5-14.5); RDW Standard Deviation 45.4 fL (36.4-46.3); White Blood Count 10.03 K/ul (4.8-10.8)
[2024-09-01 05:42] LABS: Calcium 8.6 mg/dl (8.6-10.3); Magnesium 2.2 mg/dl (1.7-2.4); Potassium 5.2 mmol/L (3.5-5.1)
[2024-09-01 05:44] LABS: Basophils # (auto) 0.01 K/uL (0.00-0.20); Basophils % (auto) 0.1 %; Lymphocytes # (auto) 0.35 K/uL (1.20-3.40); Lymphocytes % (auto) 3.5 %; Monocytes # (auto) 0.31 K/uL (0.11-0.59); Monocytes % (auto) 3.1 %; Neutrophils # (auto) 9.26 K/uL (1.40-6.50); Neutrophils % (auto) 92.3 %; Polychromasia 1+
[2024-09-01 05:49] LABS: BUN Creatinine Ratio 20.9 (10-20); Creatinine Clr Calc Pharmacy 59.6 ml/min; Phosphorus 4.1 mg/dl (2.5-4.9)
--- NOTE | 2024-09-01 07:20 | Hospitalist Progress Note ---
Date of Service September 01, 2024 Assessment & Plan (1) Acute exacerbation of chronic obstructive pulmonary disease: Plan: 59-year-old female with past medical history significant for COPD, on home oxygen 4 L, history of pulmonary emboli, hypertension, GERD, history of KARLA, lumbar degenerative disease, osteoarthritis, restless leg syndrome, history of anemia, methadone maintenance therapy, substance abuse in remission, ongoing tobacco abuse, depression, ongoing alcoholism comes in because of shortness of breath and chest pain. Patient says since yesterday evening she is having chest pain in the left lower chest. The pain is more when taking deep breath. She also feeling short of breath. Has cough with greenish phlegm which is chronic. She uses a 4 L oxygen all the time at home. Feeling hot and cold and chills but denies any fevers. Has headache. Vision is okay. No runny nose or sore throat. No nausea. Has some abdominal discomfort. Had couple of episodes of diarrhea today morning. No blood in stools. Micturating okay. Hemodynamics are okay. Acute exacerbation of COPD History of COPD and on oxygen 4 L at home Ongoing tobacco abuse procalcitonin level 0.16 IV Solu-Medrol and nebs [id number] and as needed Closely monitor ? Bacteremia blood culture positive and Rocephin started by vinnie, will continue will follow results and will discuss w/ ID Chest pain In the left lower side The pain is more when taking deep breath Initial troponin negative and EKG okay serial enzymes also negative monitor on telemetry Alcoholism Currently drinking 3 drinks of mixed drinks daily Patient states she could not take gabapentin cont. thiamine and folic acid multivitamin Librium protocol and IV Ativan as needed Close monitor History of pulmonary emboli On Eliquis Hypertension On metoprolol succinate, amlodipine and Lasix Will monitor History of substance abuse in remission On methadone maintenance therapy GERD Protonix DVT prophylaxis On Eliquis Disposition Med/telemetry Full code. Admission and Anticipated Discharge Date Admission Date: August 31, 2024 Subjective Pt seen in follow up of acute on chronic hypoxic resp. fail., COPD exacerb. on 4L at baseline, admitted on 6L Currently laying in bed in NAD Reports feeling not much different since coming to hospital, feels tired no fever, chills, chest pain no abd. pain, n/v overnight blood cultx posit. - started on Rocephin by solar field installation crew member. will follow cultx results and will further discuss w/ ID Review of Systems Review of Systems: All systems reviewed & are unremarkable except as noted in Subjective Physical Exam Physical Exam: General- WD/WN F in NAD Head- atraumatic Eyes- PERRL. Neck- supple, no JVD. Lungs- + b/l expiratory wheezing present, no crackles heard. Heart- regular rate and rhythm; no murmur Abdomen- normal bowel sounds, soft, nontender, no distension Extremities- trace pretibial edema present , no erythema seen Neuro- alert, oriented PERRL, no facial palsy; no dysarthria; moves extremities Results & Data Results & Data Vital Signs (Past 12 Hours) Vital Signs Temp Pulse Pulse Resp BP Pulse Ox O2 Del Method 09/01/24 06:56 80 22 86 L Nasal Cannula 09/01/24 03:20 36.6 C 81 20 131/71 Nasal Cannula 09/01/24 00:00 83 08/31/24 23:22 36.8 C 84 20 118/62 90 Nasal Cannula 08/31/24 20:39 90 22 91 Nasal Cannula 08/31/24 20:00 Nasal Cannula 08/31/24 19:43 36.8 C 79 16 111/62 Nasal Cannula O2 Flow Rate 09/01/24 06:56 5 09/01/24 03:20 6 09/01/24 00:00 08/31/24 23:22 6 08/31/24 20:39 5 08/31/24 20:00 6 08/31/24 19:43 6 Laboratory Results 09/01/24 08/31/24 08/31/24 Range/Units 04:35 17:49 10:50 WBC 10.03 (4.8-10.8) K/ul RBC 3.70 L (4.20-5.40) M/uL Hgb 11.7 L (12.0-16.0) g/dl Hct 36.0 L (37.0-47.0) % MCV 97.3 (80.0-100.0) fL MCH 31.6 (25.0-34.0) pg MCHC 32.5 (32.0-36.0) g/dL RDW Std Deviation 45.4 (36.4-46.3) fL RDW Coeff of Cee 12.7 (11.5-14.5) % Plt Count 171 (130-400) K/uL MPV 10.5 (9.4-12.4) fL Immature Gran % (Auto) 1.0 % Neut % (Auto) 92.3 % Lymph % (Auto) 3.5 % Dewitt % (Auto) 3.1 % Eos % (Auto) 0.0 % Baso % (Auto) 0.1 % Neut # (Auto) 9.26 H (1.40-6.50) K/uL Lymph # (Auto) 0.35 L (1.20-3.40) K/uL Dewitt # (Auto) 0.31 (0.11-0.59) K/uL Eos # (Auto) 0.00 (0.00-0.50) K/uL Baso # (Auto) 0.01 (0.00-0.20) K/uL Immature Gran # (Auto) 0.10 (0.01-0.20) K/uL Polychromasia 1+ Sodium 132 L (136-145) mmol/L Potassium 5.2 H D (3.5-5.1) mmol/L Chloride 96 L (98-107) mmol/L Carbon Dioxide 31 (21-32) mmol/L Anion Gap 5 (3-11) BUN 27 H (6-23) mg/dl Creatinine 1.29 H (0.6-1.2) mg/dl Est Cr Clr Drug Dosing 59.6 eGFR 48.41 BUN/Creatinine Ratio 20.9 H (10-20) Glucose 149 H (70-99(Fasting)) mg/dl Calcium 8.6 (8.6-10.3) mg/dl Phosphorus 4.1 D (2.5-4.9) mg/dl Magnesium 2.2 (1.7-2.4) mg/dl Total Bilirubin (0.2-1.0) mg/dl Direct Bilirubin (0-0.2) mg/dl AST (13-39) U/L ALT (7-52) U/L Alkaline Phosphatase (34-104) U/L Troponin I High Sens 3.8 3.4 (0-14) pg/ml Total Protein (6.0-8.3) gm/dl Albumin (3.4-5.0) gm/dl Procalcitonin (0-0.5) ng/ml Bld Cult ID Panel PCR (NotDetected) 08/31/24 08/31/24 08/31/24 Range/Units 09:21 06:47 05:47 WBC (4.8-10.8) K/ul RBC (4.20-5.40) M/uL Hgb (12.0-16.0) g/dl Hct (37.0-47.0) % MCV (80.0-100.0) fL MCH (25.0-34.0) pg MCHC (32.0-36.0) g/dL RDW Std Deviation (36.4-46.3) fL RDW Coeff of Cee (11.5-14.5) % Plt Count (130-400) K/uL MPV (9.4-12.4) fL Immature Gran % (Auto) % Neut % (Auto) % Lymph % (Auto) % Dewitt % (Auto) % Eos % (Auto) % Baso % (Auto) % Neut # (Auto) (1.40-6.50) K/uL Lymph # (Auto) (1.20-3.40) K/uL Dewitt # (Auto) (0.11-0.59) K/uL Eos # (Auto) (0.00-0.50) K/uL Baso # (Auto) (0.00-0.20) K/uL Immature Gran # (Auto) (0.01-0.20) K/uL Polychromasia Sodium 134 L 133 L (136-145) mmol/L Potassium 4.1 4.1 (3.5-5.1) mmol/L Chloride 96 L 96 L (98-107) mmol/L Carbon Dioxide 31 30 (21-32) mmol/L Anion Gap 7 7 (3-11) BUN 15 14 (6-23) mg/dl Creatinine 1.24 H 1.22 H D (0.6-1.2) mg/dl Est Cr Clr Drug Dosing Not Reportable eGFR 50.76 51.76 BUN/Creatinine Ratio 12.1 11.5 (10-20) Glucose 171 H 211 H (70-99(Fasting)) mg/dl Calcium 9.2 9.1 (8.6-10.3) mg/dl Phosphorus 2.5 (2.5-4.9) mg/dl Magnesium 1.8 (1.7-2.4) mg/dl Total Bilirubin 0.3 (0.2-1.0) mg/dl Direct Bilirubin 0.1 (0-0.2) mg/dl AST 39 (13-39) U/L ALT 42 (7-52) U/L Alkaline Phosphatase 119 H (34-104) U/L Troponin I High Sens 4.3 (0-14) pg/ml Total Protein 7.2 (6.0-8.3) gm/dl Albumin 3.6 (3.4-5.0) gm/dl Procalcitonin 0.16 (0-0.5) ng/ml Bld Cult ID Panel PCR PCR Panel Negative (NotDetected) Medications Administered Current Inpatient Medications Acetaminophen (Acetaminophen 325 Mg Tab) 650 mg PO Q4H PRN PRN Reason: Pain or Fever Stop: 09/30/24 02:50 Last Admin: 08/31/24 14:32 Dose: 650 mg Albuterol (Albuterol Hfa 8 Gm Inhaler) 2 puffs INH Q6H PRN PRN Reason: Cough Stop: 09/30/24 02:50 Albuterol (Albut/Ipratrop 3mg/0.5mg Neb 3 Ml Vial) 3 ml NEB QIDR DAVID; Protocol Stop: 09/30/24 06:59 Last Admin: 09/01/24 06:56 Dose: 3 ml Albuterol (Albut/Ipratrop 3mg/0.5mg Neb 3 Ml Vial) 3 ml NEB Q4H PRN; Protocol PRN Reason: Shortness Of Breath Or Wheezing Stop: 09/30/24 02:50 Amlodipine Besylate (Amlodipine Besylate 5 Mg Tab) 10 mg PO QAM [facility] Stop: 09/30/24 08:59 Last Admin: 08/31/24 09:57 Dose: 10 mg Apixaban (Apixaban 5 Mg Tablet) 5 mg PO BID DAVID Stop: 09/30/24 08:59 Last Admin: 08/31/24 20:27 Dose: 5 mg Chlordiazepoxide HCl (Chlordiazepoxide Hcl 25 Mg Cap) 50 mg PO Q8H DAVID Stop: 09/02/24 00:31 Chlordiazepoxide HCl (Chlordiazepoxide Hcl 25 Mg Cap) 25 mg PO Q8H [facility] Stop: 09/03/24 00:31 Chlordiazepoxide HCl (Chlordiazepoxide Hcl 10 Mg Cap) 10 mg PO Q12H [facility] Stop: 09/04/24 00:31 Clonidine HCl (Clonidine Hcl 0.1 Mg Tab) 0.1 mg PO Q6H PRN PRN Reason: Hypertension Stop: 09/30/24 02:50 Folic Acid (Folic Acid 1 Mg Tab) [facility] [place] Stop: 09/30/24 08:59 Last Admin: 08/31/24 09:58 Dose: 1 mg Furosemide (Furosemide 40 Mg Tab) [facility] [place] Stop: 09/30/24 08:59 Last Admin: 08/31/24 09:58 Dose: 40 mg Guaifenesin/Dextromethorphan (Guaifenesin/Dextrom Syrup 100mg/10mg 5ml Udc) 5 ml PO Q6H PRN PRN Reason: Cough Stop: 09/30/24 23:14 Last Admin: 09/01/24 00:23 Dose: 5 ml Methylprednisolone 40 mg/ (Syringe) 0.64 mls @ 1.5 mls/min IV Q8H [facility] Stop: 09/30/24 08:59 Last Admin: 09/01/24 00:24 Dose: 1.5 mls/min Thiamine HCl 100 mg/ Syringe 10 mls @ 2 mls[facility] [place] Stop: 09/30/24 08:59 Last Admin: 08/31/24 09:59 Dose: 2 mls/min Ceftriaxone Sodium (Rocephin) 2,000 mg in 50 mls @ 100 mls/hr IV Q24H [facility] Stop: 09/15/24 02:59 Last Infusion: 09/01/24 03:57 Dose: Infused Lorazepam (Lorazepam 2 Mg/1 Ml Vial) 1 mg IV UD PRN; Protocol PRN Reason: EtOH Withdrawal AWSS Score 6,7 Stop: 09/30/24 02:50 Last Admin: 09/01/24 03:53 Dose: 1 mg Lorazepam (Lorazepam 2 Mg/1 Ml Vial) 2 mg IV UD PRN; Protocol PRN Reason: EtOH Withdrawal AWSS Score 8,9 Stop: 09/30/24 02:50 Lorazepam (Lorazepam 2 Mg/1 Ml Vial) 3 mg IV ONCE PRN; Protocol PRN Reason: EtOH Withdrawal AWSS Score 10+ Magnesium Oxide (Magnesium Oxide 400 Mg Tab) 800 mg PO HS [facility] Stop: 09/30/24 20:59 Last Admin: 08/31/24 20:27 Dose: 800 mg Methadone HCl (Methadone Oral Soln 2 Mg/Ml) 100 mg PO QAM [facility] Stop: 09/14/24 08:59 Last Admin: 08/31/24 10:06 Dose: 100 mg Metoprolol Succinate (Metoprolol Succ 25mg Ext Rel Tab) 12.5 mg PO BID [facility] Stop: 09/30/24 08:59 Last Admin: 08/31/24 20:27 Dose: 12.5 mg Miscellaneous (Remove Nicoderm Patch) 1 each N/A DAILY@0859 [facility] Stop: 09/30/24 08:58 Last Admin: 08/31/24 09:59 Dose: Not Given Multivitamins (Multivitamin Tab) 1 tab PO QAM [facility] Stop: 09/30/24 08:59 Last Admin: 08/31/24 09:57 Dose: 1 tab Nicotine (Nicotine 14 Mg/24 Hr Patch) 1 patch TD DAILY [facility] Stop: 09/30/24 02:54 Last Admin: 08/31/24 09:55 Dose: 1 patch Nitroglycerin (Nitroglycerin Sl 0.4 Mg/Tab Tab) 0.4 mg SL Q5M PRN PRN Reason: Chest Pain Stop: 09/30/24 02:50 Methadone Solution - Patient's Own Controlled Med 1 1 each PO QAM [facility] Stop: 09/14/24 08:59 Last Admin: 08/31/24 10:06 Dose: 50 ml Pantoprazole Sodium (Pantoprazole 40 Mg Tab) 40 mg PO QAM [facility] Stop: 09/30/24 08:59 Last Admin: 08/31/24 09:58 Dose: 40 mg Polyethylene Glycol (Polyethylene (Miralax) 17 Gm Pack) 17 gm PO DAILY PRN PRN Reason: Constipation Stop: 09/30/24 02:50 Potassium Chloride (Potassium Chloride Crtab 20 Meq Tabcr) 20 meq PO BID [facility] Stop: 09/30/24 08:59 Last Admin: 08/31/24 20:27 Dose: 20 meq Thiamine HCl (Thiamine Hcl 100 Mg Tab) 100 mg PO QAM [facility] Stop: 09/30/24 08:59 Last Admin: 08/31/24 10:05 Dose: Not Given Umeclidinium/Vilanterol (Umeclidinium/Vilanterol 62.5/25mcg 7 Puffs/Inhaler) 1 puffs INH QAM [facility] Stop: 09/30/24 08:59 Last Admin: 08/31/24 09:56 Dose: 1 puffs
[2024-09-01] MEDS: chlordiazePOXIDE HCl 25 MG CAP PO SCH (08:09)
[2024-09-01] MEDS: LORazepam 2 MG/1 ML VIAL IV PRN (10:47)
[2024-09-01] MEDS: CHLORASEPTIC (PHENOL) 1.4% SOLN 180 ML BTL MT PRN (20:12)
[2024-09-02 03:49] LABS: Hematocrit (blood only) 34.8 % (37.0-47.0); Mean Corpuscular Hemoglobin 31.2 pg (25.0-34.0); Mean Corpuscular Hgb Conc 31.6 g/dL (32.0-36.0); Mean Corpuscular Volume 98.6 fL (80.0-100.0); Mean Platelet Volume 10.3 fL (9.4-12.4); Platelet Count 169 K/uL (130-400); RDW Standard Deviation 46.3 fL (36.4-46.3); Red Blood Count 3.53 M/uL (4.20-5.40); White Blood Count 7.82 K/ul (4.8-10.8)
[2024-09-02 03:55] LABS: Calcium 8.8 mg/dl (8.6-10.3); Magnesium 2.4 mg/dl (1.7-2.4); Potassium 5.1 mmol/L (3.5-5.1)
[2024-09-02 04:01] LABS: BUN Creatinine Ratio 25.6 (10-20); Creatinine Clr Calc Pharmacy 66.1 ml/min; Phosphorus 5.1 mg/dl (2.5-4.9)
[2024-09-02] MEDS: chlordiazePOXIDE HCl 25 MG CAP PO SCH (06:24)
[2024-09-02] MEDS: AZITHROMYCIN 250 MG TAB PO SCH (10:21)
--- NOTE | 2024-09-02 10:54 | Pulmonary Consultation ---
Date of Consultation September 02, 2024 Assessment & Plan (1) Acute exacerbation of chronic obstructive pulmonary disease: - (2) Chest pain: (3) Pneumonia due to hemophilus influenzae: Plan 1. Acute exacerbation of Chronic pulmonary disease - Under 4 L of O2. - Will Stop Anoro and Switch to Budesonide -Formoterol (Symbicort) 2 inhalation twice daily. - Triplex test is negative. - Ordered Biofire Respiratory Panel. 2. H/O Pulmonary embolism - She had PE 2 years ago. -Under Eliquis - Given the persistence of symptoms with Symbicort use, may need CT Chest with Contrast. 3. Chest Pain -EKG: Normal; Cardiac enzymes; Normal -Echo(11/19) shows mild left ventricular hypertrophy, normal left ventricular wall motion and Left Ventricular ejection fraction of 55 to 60% - May need Stress Echocardiogram, for further evaluation. - CT Chest w/o contrast performed today shows mild pneumonitis/early pneumonia. No other significant findings. -If symptoms persists, will consider CT chest with Contrast. Supervising Physician Co-Signing Physician Notes Patient seen examined with resident physician. Agree with the note above unless otherwise specified. 59-year-old female with a history of COPD and pulmonary embolism presenting for recurrent shortness of breath and pneumonia. Found to have influenza A today on respiratory bio fire testing. Tamiflu will be initiated. Continue with ceftriaxone and azithromycin for possible superimposed CAP. Sputum cultures grew out haemophilus influenza. Patient with a history of PE and pulmonary hypertension. Possibility of chronic thromboembolic pulmonary hypertension is present. Will need further workup as an outpatient for pulmonary hypertension. Smoking cessation strongly encouraged. Pulmonary will continue to follow. History of Present Illness Reason for Consultation: Chest Pain and Shortness of breath Attending Physician: Amy Vargas MD History of Present Illness Bhumika is a 59 Y O Female with PMH of significant for COPD, on home oxygen 4 L, history of pulmonary emboli, hypertension, GERD, history of KARLA, lumbar degenerative disease, osteoarthritis, restless leg syndrome, history of anemia, methadone maintenance therapy, substance abuse in remission, ongoing tobacco abuse, depression, ongoing alcoholism. She presented to ER on 08/31 with Shortness of breath and Chest Pain started couple of days before she came here. It is associated with cough and production of yellowish green phlegm. She has pain in left lower chest more aggravated on cough. She is under Continuous O2 therapy of 4L at home. And Nebulizer Albuterol and Anoro at home. She is taking Albuterol regularly but she is not compliant with Anoro. She stated she has irritation with Anoro. 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 She started smoking form the age of 15 and used to take 1 Pack per day but now has reduced to 2 or 3 cigarettes per day. She has runny nose sometimes. But denies congestion and Sorethroat. Allergies Allergy/AdvReac Type Severity Reaction Status Date / Time fluticasone furoate AdvReac Intermediate INTENSE Verified 03/09/24 08:50 [From Trelegy Ellipta] HEADACHES umeclidinium AdvReac Intermediate INTENSE Verified 03/09/24 08:50 [From Trelegy Ellipta] HEADACHES vilanterol AdvReac Intermediate INTENSE Verified 03/09/24 08:50 [From Trelegy Ellipta] HEADACHES buspirone [From BuSpar] AdvReac Mild Rash Verified 03/09/24 08:50 olive oil AdvReac Unknown reacts Verified 03/09/24 08:50 with methadone Home Medications Medication Instructions Recorded Confirmed Type amlodipine 10 mg tablet 10 mg PO QAM 05/16/22 08/31/24 History albuterol sulfate 90 mcg/actuation 2 puff inhalation Q6H PRN Cough 09/12/22 08/31/24 History aerosol inhaler furosemide 40 mg tablet 40 mg PO QAM #30 tabs 09/21/22 08/31/24 Rx methadone 10 mg/5 mL oral solution 100 mg PO QAM 06/25/23 08/31/24 History nicotine 7 mg/24 hr daily 1 patch transdermal DAILY 06/25/23 08/31/24 History transdermal patch pantoprazole 40 mg tablet,delayed 40 mg PO QAM 06/25/23 08/31/24 History release potassium chloride 10 mEq 20 meq PO [facility] 11/20/23 08/31/24 History tablet,extended release(part/cryst) folic acid 1 mg tablet 1 mg PO QAM 01/21/24 08/31/24 History magnesium oxide 400 mg (241.3 mg 800 mg PO HS 05/09/24 08/31/24 History magnesium) tablet apixaban 5 mg tablet (Eliquis) 5 mg PO AMHS 08/31/24 08/31/24 History metoprolol succinate 25 mg 12.5 mg PO [facility] 08/31/24 08/31/24 History tablet,extended release 24 hr umeclidinium 62.5 mcg-vilanterol 1 inh inhalation QAM PRN per pt 08/31/24 08/31/24 History 25 mcg/actuation powdr for inhalation (Anoro Ellipta) Patient History Medical History Edema of both lower extremities Difficult intravenous access Pulmonary hypertension Follow with [facility] Hx of pulmonary embolus dx 08/2022 - unknown the cause. treated with anticoagulants. 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 Down to three drinks a week GERD (gastroesophageal reflux disease) History of aspiration pneumonia 08/2022 from vomiting -- reports she "passed out and vomited while she was incoherent" per PAT RN COPD (chronic obstructive pulmonary disease) well controlled currently, uses 4lpm oxygen via n/c continuously Hx of sinus bradycardia episode when vitamin levels were low. no current issue History of endocarditis --- r/t IV drug use. S/P transesophageal echocardiogram (RENATA) Lung nodule monitoring Constipation Anxiety On home oxygen therapy 4lpm via n/c daily Recurrent major depressive disorder Surgical History S/P right cataract extraction Status post total hip replacement, right Family History Other Family history non-contributory No family history of adverse response to anesthesia Social History Smoking Status: Current every day smoker Tobacco Type: Cigarettes Cigarettes Per Day: 3; Second Hand Exposure: No; Do You Dip or Chew Tobacco: No; Tobacco Cessation Education Requested by Patient: No Hx Alcohol Use: Yes Alcohol type: other Hx Substance Use: No Preferred Language: Gibraltarian Communication Ability: Effective Aircraft Lay Out Worker Required: No Beliefs That Will Affect Care: None Current Living Situation: Alone Feels Safe at Home: Yes Safety Concerns: Feels Safe At This Time Assistive Devices: Cane and Walker Assistive Devices Comment: portable O2 with patient Review of Systems Review of Systems: As per HPI Physical Exam Physical Exam: General- WD/WN F in NAD Head- atraumatic Eyes- PERRL. Neck- supple, no JVD. Lungs- + b/l expiratory wheezing present, no crackles heard. Heart- regular rate and rhythm; no murmur Abdomen- normal bowel sounds, soft, nontender, no distension Extremities- trace pretibial edema present , no erythema seen Neuro- alert, oriented PERRL, no facial palsy; no dysarthria; moves extremities Results & Data Results & Data Vital Signs (Past 12 Hours) Vital Signs Temp Pulse Pulse Resp BP BP Pulse Ox 09/02/24 10:50 36.3 C L 69 19 140/76 90 09/02/24 10:43 09/02/24 08:13 36.4 C L 72 19 137/74 91 09/02/24 07:39 87 09/02/24 06:39 68 22 91 09/02/24 02:34 36.7 C 105 H 24 134/69 91 09/02/24 00:00 73 09/01/24 23:06 36.8 C 72 22 123/67 90 O2 Del Method O2 Flow Rate 09/02/24 10:50 Nasal Cannula 4 09/02/24 10:43 High Flow Nasal Cannula 4 09/02/24 08:13 Nasal Cannula 4 09/02/24 07:39 09/02/24 06:39 Nasal Cannula 4 09/02/24 02:34 Nasal Cannula 6 09/02/24 00:00 09/01/24 23:06 High Flow Nasal Cannula 4
--- NOTE | 2024-09-02 11:03 | CT Scan Report ---
CT chest diagnostic wo con CT DOSE: 665.17 mGy.cm CLINICAL HISTORY: hypoxia, SOB, COPD exacerbation. TECHNIQUE: Multiaxial CT images of the chest were performed without contrast. A dose lowering techni que was utilized adhering to the principles of ALARA. COMPARISON STUDY: 09/13/2022 FINDINGS: There are scattered areas of reticular, groundglass, and bandlike opacity most prominent in the lung bases. There is no lobar consolidation or pleural effusion. No pneumothorax. No enlarged ad enopathy. No pericardial effusion. There are mild coronary artery and aortic calcifications. There is fatty liver. No acute osseous findings. IMPRESSION: Mild pneumonitis/early pneumonia. Suggest follow-up chest CT in 3-6 months to make sure t hat these findings resolve without underlying nodule. ACT 112: Negative or not required by law. Electronically signed by: Pravin Parekh M.D. 09/02/2024 11:02 AM
[2024-09-02 11:27] LABS: Base Excess VBG 11.3 mEq/L; HCO3 VBG 40 mmol/L; Oxygen Saturation VBG 88.7 %; PCO2 VBG 72 mmHg (38-50); PO2 VBG 57 mmHg; pH VBG 7.35 (7.36-7.41)
--- NOTE | 2024-09-02 12:55 | Infectious Disease Consult ---
Date of Service September 02, 2024 Telehealth Information I performed this visit using a real-time telehealth connection between my location and the patients location ([facility]). After connecting through interactive tele-video, patient was identified by name and date of and/or wristband check.Patient (or authorized healthcare sales representative leather goods) was informed that this was a telemedicine visit and it was being conducted confidentially over secure lines. My office door was closed and no one else was present in the room with me.Patient (or authorized healthcare sales representative leather goods) provided consent to proceed with the visit, expressed an understanding of privacy and security of the telemedicine visit, and gave permission to have a hospital sales representative leather goods in the room in order to assist with the visit and to conduct portions of the visit, as needed. I informed the patient (or authorized healthcare sales representative leather goods) that I reviewed their record and presented the opportunity for them to ask any questions regarding the visit today. The patient agreed to participate. Assessment & Plan (1) Pneumonia due to hemophilus influenzae: (2) Positive blood culture: (3) Acute exacerbation of chronic obstructive pulmonary disease: (4) Opioid use disorder, severe, in sustained remission: (5) Alcohol use disorder, moderate, dependence: Plan - since we already have a diagnosis on the pneumonia based on the sputum culture which is growing Haemophilus influenzae, I would recommend stopping all current antibiotics and starting on IV Unasyn. When patient is stable for discharge, can step-down IV Unasyn to oral Augmentin 875/125 twice daily to complete a course of 7 days. - The bacillus growing in 1/4 bottles of blood culture sent on admission, is likely a contaminant and does not warrant treatment. - thank you for consulting Infectious Disease. We will sign off for now. History of Present Illness History of Present Illness Ms. Flores is 59-year-old woman with past medical history of COPD and Hx of pulmonary emboli, on home oxygen 4 L, polysubstance use disorder on methadone maintenance therapy who was admitted to [facility] on 08/31/2024 because of shortness of breath and chest pain. She mentioned that the chest pain is mainly over her left lower chest and the illness was associated with shortness of breath without increase in oxygen requirement and chronic cough with minimal greenish sputum. On presentation, she was hypertensive and requiring 4 L of oxygen; otherwise the rest of the vitals were within normal limits. Initial workup was mainly significant for elevated pCO2 in lower 70s on the ABGs, elevated creatinine suggesting KARLA, hyperkalemia, and negative influenza/COVID/RSV PCR. A CT of the chest performed on presentation showed mild pneumonitis/early pneumonia. Soon after presentation 1 of 4 bottles of blood culture came back positive for bacillus. Also respiratory culture came back positive for Haemophilus influenzae. ID team was consulted for further recommendations and to help guide antibiotic treatment. Allergies Allergy/AdvReac Type Severity Reaction Status Date / Time fluticasone furoate AdvReac Intermediate INTENSE Verified 03/09/24 08:50 [From Trelegy Ellipta] HEADACHES umeclidinium AdvReac Intermediate INTENSE Verified 03/09/24 08:50 [From Trelegy Ellipta] HEADACHES vilanterol AdvReac Intermediate INTENSE Verified 03/09/24 08:50 [From Trelegy Ellipta] HEADACHES buspirone [From BuSpar] AdvReac Mild Rash Verified 03/09/24 08:50 olive oil AdvReac Unknown reacts Verified 03/09/24 08:50 with methadone Home Medications Medication Instructions Recorded Confirmed Type amlodipine 10 mg tablet 10 mg PO QA 05/16/22 08/31/24 History albuterol sulfate 90 mcg/actuation 2 puff inhalation Q6H PRN Cough 09/12/22 08/31/24 History aerosol inhaler furosemide 40 mg tablet 40 mg PO QAM #30 tabs 09/21/22 08/31/24 Rx methadone 10 mg/5 mL oral solution 100 mg PO QA 06/25/23 08/31/24 History nicotine 7 mg/24 hr daily 1 patch transdermal DAILY 06/25/23 08/31/24 History transdermal patch pantoprazole 40 mg tablet,delayed 40 mg PO QAM 06/25/23 08/31/24 History release potassium chloride 10 mEq 20 meq PO AMHS 11/20/23 08/31/24 History tablet,extended release(part/cryst) folic acid 1 mg tablet 1 mg PO QAM 01/21/24 08/31/24 History magnesium oxide 400 mg (241.3 mg 800 mg PO HS 05/09/24 08/31/24 History magnesium) tablet apixaban 5 mg tablet (Eliquis) 5 mg PO AMHS 08/31/24 08/31/24 History metoprolol succinate 25 mg 12.5 mg PO PENDING SALE TO [facility] 08/31/24 08/31/24 History tablet,extended release 24 hr umeclidinium 62.5 mcg-vilanterol 1 inh inhalation QAM PRN per pt 08/31/24 08/31/24 History 25 mcg/actuation powdr for inhalation (Anoro Ellipta) Patient History Medical History Edema of both lower extremities Difficult intravenous access Pulmonary hypertension Follow with [facility] Hx of pulmonary embolus dx 08/2022 - unknown the cause. treated with anticoagulants. 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 Down to three drinks a week GERD (gastroesophageal reflux disease) History of aspiration pneumonia 08/2022 from vomiting -- reports she "passed out and vomited while she was incoherent" per PAT RN COPD (chronic obstructive pulmonary disease) well controlled currently, uses 4lpm oxygen via n/c continuously Hx of sinus bradycardia episode when vitamin levels were low. no current issue History of endocarditis --- r/t IV drug use. S/P transesophageal echocardiogram (RENATA) Lung nodule monitoring Constipation Anxiety On home oxygen therapy 4lpm via n/c daily Recurrent major depressive disorder Surgical History S/P right cataract extraction Status post total hip replacement, right Family History Other Family history non-contributory No family history of adverse response to anesthesia Social History Smoking Status: Current every day smoker Tobacco Type: Cigarettes Cigarettes Per Day: 3; Second Hand Exposure: No; Do You Dip or Chew Tobacco: No; Tobacco Cessation Education Requested by Patient: No Hx Alcohol Use: Yes Alcohol type: other Hx Substance Use: No Preferred Language: Welsh Communication Ability: Effective Kiln Puller Required: No Beliefs That Will Affect Care: None Current Living Situation: Alone Feels Safe at Home: Yes Safety Concerns: Feels Safe At This Time Assistive Devices: Cane and Walker Assistive Devices Comment: portable O2 with patient Review of Systems Neg except for what was mentioned in H&P. Physical Exam Couldn't be obtained as the consult was performed via telemed. Results & Data Vital Signs (Past 12 Hours) Vital Signs Temp Pulse Pulse Resp BP BP Pulse Ox 09/02/24 10:57 76 20 89 L 09/02/24 10:50 36.3 C L 69 19 140/76 90 09/02/24 10:43 09/02/24 08:13 36.4 C L 72 19 137/74 91 09/02/24 07:39 87 09/02/24 06:39 68 22 91 09/02/24 02:34 36.7 C 105 H 24 134/69 91 O2 Del Method O2 Flow Rate 09/02/24 10:57 Nasal Cannula 4 09/02/24 10:50 Nasal Cannula 4 09/02/24 10:43 High Flow Nasal Cannula 4 09/02/24 08:13 Nasal Cannula 4 09/02/24 07:39 09/02/24 06:39 Nasal Cannula 4 09/02/24 02:34 Nasal Cannula 6 Laboratory Results Microbiology: 2/3: 1 of 4 bottles of blood culture positive for bacillus 2/3: Sputum culture positive for Haemophilus influenzae beta lactamase negative Diagnostic Findings CT chest done on 09/02: Mild pneumonitis/early pneumonia. Suggest follow-up chest CT in 3-6 months to make sure that these findings resolve without underlying nodule.
--- NOTE | 2024-09-02 13:31 | Hospitalist Progress Note ---
Date of Service September 02, 2024 Assessment & Plan (1) Acute exacerbation of chronic obstructive pulmonary disease: Plan Pt is a 59-year-old female with past medical history significant for COPD, on home oxygen 4 L, history of pulmonary emboli, hypertension, GERD, history of KARLA , lumbar degenerative disease, osteoarthritis, restless leg syndrome, history of anemia, methadone maintenance therapy, substance abuse in remission, ongoing tobacco abuse, depression, ongoing alcoholism who presented with shortness of breath and chest pain. Acute on chronic hypoxic respiratory failure Influenza A infection Acute exacerbation of COPD Current tobacco use Patient with history of COPD Uses 4 L of oxygen at home On admission, flu, COVID and RSV testing was negative On September 02, respiratory bio fire noting patient is positive for influenza A No leukocytosis, procalcitonin negative Chest x-ray noting underlying emphysema and concern for a possible superimposed edema or infiltrates on the left CT chest noting early pneumonia, recommending follow-up chest CT in 3 to 6 months VBG with pH of 7.35, pCO2 of 72 and bicarb of 40 sputum culture growing H. influenzae Blood cultures x 2 sets with contaminant (see below) Continue with Rocephin and azithromycin at this time IV Solu-Medrol 40mg every 8 hours Tamiflu nebs [id number] scheduled inhalers oxygen supplementation as needed Currently requiring BiPAP, patient is a full code in case of need for intubation Very limited use of IV Ativan for alcohol withdrawal (see below) Encourage tobacco cessation, nicotine patch in place pulmonology consulted, appreciate recs Continue to monitor Alcoholism Currently drinks 3 drinks of mixed drinks daily Patient states she cannot take gabapentin cont. thiamine and folic acid multivitamin Librium protocol and limited IV Ativan as needed in setting of acute on chronic respiratory failure Closely monitor Possible Bacteremia Blood cultures growing bacillus megaterium and 1/ bottles Infectious disease was consulted and recommended or stated the following: -notes bacillus megaterium likely a contaminant and does not warrant treatment Anemia Hgb in 11 range, appears at baseline Continue to monitor at this time Hyperkalemia Discontinue potassium supplements Hyperphosphatemia Likely in setting of KARLA (see below) Continue to monitor Acute Kidney Injury Cr of 1.24 on admission IV fluids Hold nephrotoxic meds as able Continue to monitor Hyperglycemia Glucose levels elevated likely in setting of steroid use acutely AM [id number] Chest pain with deep breaths troponin negative EKG unremarkable likely in setting of above monitor on telemetry History of pulmonary emboli On Eliquis Hypertension On metoprolol succinate, amlodipine and Lasix Will monitor History of substance abuse in remission On methadone maintenance therapy GERD Protonix Diet: HH DVT prophylaxis: On Eliquis CODE STATUS: full code Dispo: Home once medically stable Admission and Anticipated Discharge Date Admission Date: August 31, 2024 Subjective patient was seen multiple times during the day Initially in the a.m. was very drowsy but alert and oriented x 3 Per nursing increased oxygen requirement and increased wheezing Later patient sitting up in bed Significant other was contacted via telephone later in the day noted that she appeared to be worsening Asking about having her take beet root pill to help with her breathing States he is concerned about her being on a ventilator as "people on that during COV" Review of Systems Review of Systems: All systems reviewed & are unremarkable except as noted in Subjective Physical Exam Physical Exam: General: drowsy Psych: Appropriate mood and affect Neuro: drowsy HEENT: NC/AT CV: RRR Resp: Breath sounds with wheezing bilaterally Abdomen: Soft, nontender Extremities: No edema in lower extremities bilaterally. Results & Data Results & Data Vital Signs (Past 12 Hours) Vital Signs Temp Pulse Pulse Resp BP BP Pulse Ox 09/02/24 13:11 36.7 C 77 22 134/66 90 09/02/24 10:57 76 20 89 L 09/02/24 10:50 36.3 C L 69 19 140/76 90 09/02/24 10:43 09/02/24 08:13 36.4 C L 72 19 137/74 91 09/02/24 07:39 87 09/02/24 06:39 68 22 91 09/02/24 02:34 36.7 C 105 H 24 134/69 91 O2 Del Method O2 Flow Rate 09/02/24 13:11 High Flow Nasal Cannula 4 09/02/24 10:57 Nasal Cannula 4 09/02/24 10:50 Nasal Cannula 4 09/02/24 10:43 High Flow Nasal Cannula 4 09/02/24 08:13 Nasal Cannula 4 09/02/24 07:39 09/02/24 06:39 Nasal Cannula 4 09/02/24 02:34 Nasal Cannula 6 Diagnostic Findings Chest X-Ray 08/30/24 22:46 Exam(s): XR CXR 1 VIEW EXAM: XR Chest, 1 View CLINICAL HISTORY: Reason for exam: Chest pain, nonspecific. TECHNIQUE: Frontal view of the chest. COMPARISON: May 13, 2024 FINDINGS: Lungs: There are prominent interstitial markings throughout the mid to lower lungs suggesting underlying emphysema. There is a greater than previous suggesting superimposed edema or infiltrates, greatest in the left costophrenic angle. Pleural space: Unremarkable. No pneumothorax. Heart: Upper normal in size. Mediastinum: Unremarkable. Normal mediastinal contour. Bones/joints: Unremarkable. No acute fracture. Vasculature: The aorta is mildly calcified. Upper abdomen: Unremarkable as visualized. No pneumoperitoneum under the diaphragm. IMPRESSION: There are prominent interstitial markings throughout the mid to lower lungs suggesting underlying emphysema. There is a greater than previous suggesting superimposed edema or infiltrates, greatest in the left costophrenic angle. Electronically signed by: Lamberto Guzmán MD 08/31/24 01:[address] 09/02/24 09:23 CT chest diagnostic wo con CT DOSE: 665.17 mGy.cm CLINICAL HISTORY: hypoxia, SOB, COPD exacerbation. TECHNIQUE: Multiaxial CT images of the chest were performed without contrast. A dose lowering technique was utilized adhering to the principles of ALARA. COMPARISON STUDY: 09/13/2022 FINDINGS: There are scattered areas of reticular, groundglass, and bandlike opacity most prominent in the lung bases. There is no lobar consolidation or pleural effusion. No pneumothorax. No enlarged adenopathy. No pericardial effusion. There are mild coronary artery and aortic calcifications. There is fatty liver. No acute osseous findings. IMPRESSION: Mild pneumonitis/early pneumonia. Suggest follow-up chest CT in 3-6 months to make sure that these findings resolve without underlying nodule. ACT 112: Negative or not required by law. Electronically signed by: Pravin Parekh M.D. 09/02/2024 11:02 AM
[2024-09-02 14:25] LABS: Adenovirus PCR Not Detected (NotDetected); Bordetella parapertussis PCR Not Detected (NotDetected); Bordetella pertussis PCR Not Detected (NotDetected); Chlamydia pneumoniae PCR Not Detected (NotDetected); Coronavirus 229E PCR Not Detected (NotDetected); Coronavirus CoV-2 (COVID19)PCR Not Detected (NotDetected); Coronavirus HKU1 PCR Not Detected (NotDetected); Coronavirus NL63 PCR Not Detected (NotDetected); Coronavirus OC43PCR Not Detected (NotDetected); Human Metapneumovirus PCR Not Detected (NotDetected); Influenza A (H3) PCR DETECTED (NotDetected); Influenza B PCR Not Detected (NotDetected); Mycoplasma pneumoniae PCR Not Detected (NotDetected); Parainfluenza Virus 1 PCR Not Detected (NotDetected); Parainfluenza Virus 2 PCR Not Detected (NotDetected); Parainfluenza Virus 3 PCR Not Detected (NotDetected); Parainfluenza Virus 4 PCR Not Detected (NotDetected); Respiratory Syncytial VirusPCR Not Detected (NotDetected); Rhinovirus/Enterovirus PCR Not Detected (NotDetected)
--- NOTE | 2024-09-02 17:41 | Billing Data ---
Date of Service September 02, 2024 Coding Level of Care Code 92462 INT INP/OBS CARE
[2024-09-02] MEDS ORDERED: DEXTROSE 50% 50 ML SYRINGE IV PRN (18:39)
[2024-09-02] MEDS ORDERED: GLUCOSE 10 TAB/TUBE PO PRN (18:39)
[2024-09-02] MEDS ORDERED: GLUCAGON FOR INJ 1 MG VIAL SQ PRN (18:39)
[2024-09-02] MEDS ORDERED: GLUCOSE 40% GEL 15 GM TUBE PO PRN (18:39)
[2024-09-02] MEDS ORDERED: CARBOHYDRATES FOR HYPOGLYCEMIA PO PRN (18:39)
[2024-09-02] MEDS: SODIUM CHLORIDE 0.9% 1,000 ML IV SCH (20:09)
[2024-09-02] MEDS: OSELTAMIVIR PHOSPHATE 75 MG CAP PO SCH (20:18)
[2024-09-02] MEDS: INSULIN ASPART PER UNIT CHARGE SC SCH (21:32)
[2024-09-03] MEDS: FLUTICASONE/VILANTEROL 200/25MCG 14 PUFFS/INHALER INH SCH (08:50)
[2024-09-03 08:58] LABS: Basophils # (auto) 0.01 K/uL (0.00-0.20); Basophils % (auto) 0.2 %; Hematocrit (blood only) 35.9 % (37.0-47.0); Immature Granulocytes % (auto) 1.8 %; Lymphocytes # (auto) 0.36 K/uL (1.20-3.40); Lymphocytes % (auto) 6.5 %; Mean Corpuscular Hemoglobin 30.6 pg (25.0-34.0); Mean Corpuscular Hgb Conc 30.6 g/dL (32.0-36.0); Mean Corpuscular Volume 99.7 fL (80.0-100.0); Mean Platelet Volume 10.1 fL (9.4-12.4); Monocytes # (auto) 0.42 K/uL (0.11-0.59); Monocytes % (auto) 7.5 %; Neutrophils # (auto) 4.69 K/uL (1.40-6.50); Platelet Count 152 K/uL (130-400); RDW Standard Deviation 47.8 fL (36.4-46.3); White Blood Count 5.58 K/ul (4.8-10.8)
[2024-09-03] MEDS: POLYETHYLENE (MIRALAX) 17 GM PACK PO PRN (09:02)
[2024-09-03 09:24] LABS: BUN Creatinine Ratio 29.3 (10-20); Calcium 8.8 mg/dl (8.6-10.3); Creatinine Clr Calc Pharmacy 77.9 ml/min; Magnesium 2.3 mg/dl (1.7-2.4); Phosphorus 3.4 mg/dl (2.5-4.9); Potassium 4.6 mmol/L (3.5-5.1)
[2024-09-03 11:18] LABS: Estimated Average Glucose 123 mg/dl; Hemoglobin A1C 5.9 % (4.5-5.6)
[2024-09-03] MEDS: ALBUT/IPRATROP 3MG/0.5MG NEB 3 ML VIAL NEB PRN (11:53)
--- NOTE | 2024-09-03 12:36 | Hospitalist Progress Note ---
Date of Service September 03, 2024 Assessment & Plan (1) Acute exacerbation of chronic obstructive pulmonary disease: Plan Pt is a 59-year-old female with past medical history significant for COPD, on home oxygen 4 L, history of pulmonary emboli, hypertension, GERD, history of KARLA , lumbar degenerative disease, osteoarthritis, restless leg syndrome, history of anemia, methadone maintenance therapy, substance abuse in remission, ongoing tobacco abuse, depression, ongoing alcoholism who presented with shortness of breath and chest pain. Acute on chronic hypoxic respiratory failure Influenza A infection Acute exacerbation of COPD Current tobacco use Patient with history of COPD Uses 4 L of oxygen at home On admission, flu, COVID and RSV testing was negative On September 02, respiratory bio fire noting patient is positive for influenza A No leukocytosis, procalcitonin negative Chest x-ray noting underlying emphysema and concern for a possible superimposed edema or infiltrates on the left CT chest noting early pneumonia, recommending follow-up chest CT in 3 to 6 months VBG with pH of 7.35, pCO2 of 72 and bicarb of 40 sputum culture growing H. influenzae Blood cultures x 2 sets with contaminant (see below) Continue with Rocephin and azithromycin at this time IV Solu-Medrol 40mg every 8 hours Tamiflu nebs [id number] scheduled inhalers oxygen supplementation as needed Currently requiring BiPAP, patient is a full code in case of need for intubation Very limited use of IV Ativan for alcohol withdrawal (see below) Encourage tobacco cessation, nicotine patch in place pulmonology consulted, appreciate recs Continue to monitor Alcoholism Currently drinks 3 drinks of mixed drinks daily Patient states she cannot take gabapentin cont. thiamine and folic acid multivitamin Librium protocol and limited IV Ativan as needed in setting of acute on chronic respiratory failure Closely monitor Possible Bacteremia Blood cultures growing bacillus megaterium and 1/ bottles Infectious disease was consulted and recommended or stated the following: -notes bacillus megaterium likely a contaminant and does not warrant treatment Anemia Hgb in 11 range, appears at baseline Continue to monitor at this time Hyperkalemia Discontinue potassium supplements Hyperphosphatemia Likely in setting of KARLA (see below) Continue to monitor Acute Kidney Injury Cr of 1.24 on admission IV fluids Hold nephrotoxic meds as able Continue to monitor Hyperglycemia Glucose levels elevated likely in setting of steroid use acutely AM [id number] Chest pain with deep breaths troponin negative EKG unremarkable likely in setting of above monitor on telemetry History of pulmonary emboli On Eliquis Hypertension On metoprolol succinate, amlodipine and Lasix Will monitor History of substance abuse in remission On methadone maintenance therapy GERD Protonix Diet: HH DVT prophylaxis: On Eliquis CODE STATUS: full code Dispo: Home once medically stable Admission and Anticipated Discharge Date Admission Date: August 31, 2024 Subjective pt was seen sitting up in bed Still drowsy but more talkative today Denied acute concerns otherwise Review of Systems Review of Systems: All systems reviewed & are unremarkable except as noted in Subjective Physical Exam Physical Exam: General: drowsy Psych: Appropriate mood and affect Neuro: drowsy HEENT: NC/AT CV: RRR Resp: Breath sounds with wheezing bilaterally Abdomen: Soft, nontender Extremities: No edema in lower extremities bilaterally. Results & Data Results & Data Vital Signs (Past 12 Hours) Vital Signs Temp Pulse Pulse Resp BP BP Pulse Ox 09/03/24 11:53 74 20 97 09/03/24 11:10 36.4 C L 69 20 125/69 92 09/03/24 10:40 112 H 18 94 09/03/24 09:59 09/03/24 07:36 58 L 09/03/24 07:22 36.7 C 70 20 103/62 92 09/03/24 06:17 59 L 18 94 09/03/24 03:39 36.8 C 89 18 139/82 95 O2 Del Method O2 Flow Rate 09/03/24 11:53 Nasal Cannula 8 09/03/24 11:10 Nasal Cannula 5 09/03/24 10:40 Nasal Cannula 5 09/03/24 09:59 High Flow Nasal Cannula 5 09/03/24 07:36 09/03/24 07:22 Nasal Cannula 5 09/03/24 06:17 Nasal Cannula 6 09/03/24 03:39 High Flow Nasal Cannula 6
--- NOTE | 2024-09-03 13:26 | Pulmonology Progress Note ---
Date of Service September 03, 2024 Assessment & Plan (1) Viral pneumonia: (2) Pneumonia due to hemophilus influenzae: (3) Acute hypoxemic respiratory failure: (4) Acute on chronic respiratory failure with hypoxia and hypercapnia: Plan 59-year-old female with history of COPD, alcoholism, methadone use, GERD and hypertension who presented to the hospital with H. influenzae pneumonia and was also found to have viral pneumonia this hospitalization with influenza A. Continue Tamiflu 75 mg twice daily. Continue with IV methylprednisone. Continue ceftriaxone/azithromycin. Obtain nasal MRSA screen. Start Pulmicort and Perforomist twice daily. Start pulmonary toileting with flutter valve 4 times a day and hypertonic saline twice daily. Continue weaning oxygen as able. Continue utilizing BiPAP as needed for hypercapnia. Patient remains very ill and has a high chance of progressive disease requiring ICU hospitalization. Will continue to monitor closely on the pulmonary service for the time being. Admission and Anticipated Discharge Date Admission Date: August 31, 2024 Subjective Patient seen and examined. Patient notes that she is more short of breath today and has significant wheezing. Generally feels unwell. Appetite is poor. Requiring higher amounts of oxygen. Review of Systems Review of Systems: All systems reviewed & are unremarkable except as noted in HPI & below Physical Exam Physical Exam: Constitutional: Patient appears to be of their stated age. Disheveled appearing. Eyes: Pupils are equal round and reactive to light. Conjunctivae are normal. Anicteric sclera. Ears nose, mouth and throat: Mallampati class 2. Normal posterior oropharynx. Uvula is midline. Neck: Trachea is midline. Visual inspection is normal. Respiratory: Diffuse expiratory wheezing with prolonged phase of exhalation. Mild tachypnea. Cardiovascular: Regular rate and rhythm. No murmurs. No edema. Gastrointestinal: Normal bowel sounds, soft, nontender and nondistended. No hepatosplenomegaly noted. Musculoskeletal: No cyanosis. Patient is able to move all extremities. Strength is 5 out of 5 in the upper and lower extremities. Skin: No rashes, warm dry and intact. Neurologic: No obvious focal neurological deficits seen. Psychiatric: Alert and oriented x3 with a euthymic affect. Results & Data Results & Data Vital Signs (Past 12 Hours) Vital Signs Temp Pulse Pulse Resp BP BP Pulse Ox 09/03/24 11:53 74 20 97 09/03/24 11:10 36.4 C L 69 20 125/69 92 09/03/24 10:40 112 H 18 94 09/03/24 09:59 09/03/24 07:36 58 L 09/03/24 07:22 36.7 C 70 20 103/62 92 09/03/24 06:17 59 L 18 94 09/03/24 03:39 36.8 C 89 18 139/82 95 O2 Del Method O2 Flow Rate 09/03/24 11:53 Nasal Cannula 8 09/03/24 11:10 Nasal Cannula 5 09/03/24 10:40 Nasal Cannula 5 09/03/24 09:59 High Flow Nasal Cannula 5 09/03/24 07:36 09/03/24 07:22 Nasal Cannula 5 09/03/24 06:17 Nasal Cannula 6 09/03/24 03:39 High Flow Nasal Cannula 6 PG Care Time/CCT Total # of Minutes Spent Total Time Spent with Patient: Total time spent is greater than 50% in coordination of care (as documented) at patient's floor/unit and/or counseling patient: Coding Level of Care Code 10741 SUB INP/OBS CARE 3/50MIN Diagnoses Viral pneumonia J12.9 Pneumonia due to hemophilus influenzae J14 Acute hypoxemic respiratory failure J96.01 Acute on chronic respiratory failure with hypoxia and hypercapnia J96.21; J96.22
[2024-09-03] MEDS: BUDESONIDE 0.5 MG/2 ML VIAL (PULMICORT) NEB SCH (19:42)
[2024-09-03] MEDS: FORMOTEROL 20 MCG/2 ML VIAL NEB SCH (19:42)
[2024-09-03] MEDS: SODIUM CHLOR 7% 4 ML NEB NEB SCH (19:42)
[2024-09-04 05:58] LABS: Basophils # (auto) 0.01 K/uL (0.00-0.20); Basophils % (auto) 0.2 %; Hematocrit (blood only) 36.2 % (37.0-47.0); Hemoglobin 10.9 g/dl (12.0-16.0); Immature Granulocytes # (auto) 0.14 K/uL (0.01-0.20); Immature Granulocytes % (auto) 2.2 %; Lymphocytes # (auto) 0.43 K/uL (1.20-3.40); Lymphocytes % (auto) 6.7 %; Mean Corpuscular Hemoglobin 30.1 pg (25.0-34.0); Mean Corpuscular Hgb Conc 30.1 g/dL (32.0-36.0); Mean Platelet Volume 9.8 fL (9.4-12.4); Monocytes # (auto) 0.35 K/uL (0.11-0.59); Monocytes % (auto) 5.5 %; Neutrophils # (auto) 5.47 K/uL (1.40-6.50); Neutrophils % (auto) 85.4 %; Platelet Count 151 K/uL (130-400); RDW Coefficient of Variation 12.8 % (11.5-14.5); RDW Standard Deviation 47.1 fL (36.4-46.3); Red Blood Count 3.62 M/uL (4.20-5.40)
[2024-09-04 06:13] LABS: BUN Creatinine Ratio 28.9 (10-20); Calcium 8.9 mg/dl (8.6-10.3); Creatinine Clr Calc Pharmacy 86.8 ml/min; Magnesium 2.1 mg/dl (1.7-2.4); Phosphorus 3.4 mg/dl (2.5-4.9); Potassium 4.8 mmol/L (3.5-5.1)
--- NOTE | 2024-09-04 07:31 | Hospitalist Progress Note ---
Date of Service September 04, 2024 Assessment & Plan (1) Acute exacerbation of chronic obstructive pulmonary disease: Plan Pt is a 59-year-old female with past medical history significant for COPD, on home oxygen 4 L, history of pulmonary emboli, hypertension, GERD, history of KARLA , lumbar degenerative disease, osteoarthritis, restless leg syndrome, history of anemia, methadone maintenance therapy, substance abuse in remission, ongoing tobacco abuse, depression, ongoing alcoholism who presented with shortness of breath and chest pain. Acute on chronic hypoxic respiratory failure Influenza A infection Acute exacerbation of COPD Current tobacco use Patient with history of COPD Uses 4 L of oxygen at home On admission, flu, COVID and RSV testing was negative On September 02, respiratory bio fire noting patient is positive for influenza A No leukocytosis, procalcitonin negative Chest x-ray noting underlying emphysema and concern for a possible superimposed edema or infiltrates on the left CT chest noting early pneumonia, recommending follow-up chest CT in 3 to 6 months VBG with pH of 7.35, pCO2 of 72 and bicarb of 40 sputum culture growing H. influenzae Blood cultures x 2 sets with contaminant (see below) Continue with Rocephin and azithromycin (3 doses) IV Solu-Medrol 40mg scheduled Tamiflu nebs [id number] scheduled inhalers oxygen supplementation as needed Requiring BiPAP at one point, patient is a full code in case of need for intubation Very limited use of IV Ativan for alcohol withdrawal (see below) Encourage tobacco cessation, nicotine patch in place pulmonology consulted, recommended/stated the following: "...Continue Tamiflu 75 mg twice daily. Continue with IV methylprednisone. Decreased IV methylprednisone to twice daily today. Transition to p.o. prednisone starting tomorrow. Continue ceftriaxone/azithromycin. MRSA screen negative. Continue Pulmicort and Perforomist twice daily. Start pulmonary toileting with flutter valve 4 times a day and hypertonic saline twice daily. Continue weaning oxygen as able. Continue utilizing BiPAP as needed for hypercapnia..." improving Alcoholism Currently drinks 3 drinks of mixed drinks daily Patient states she cannot take gabapentin cont. thiamine and folic acid multivitamin Librium protocol and limited IV Ativan as needed in setting of acute on chronic respiratory failure Closely monitor Anxiety prn hydroxyzine as needed Possible Bacteremia Blood cultures growing bacillus megaterium and 1/4 bottles Infectious disease was consulted and recommended or stated the following: -notes bacillus megaterium likely a contaminant and does not warrant treatment Anemia Hgb in 11 range, appears at baseline Continue to monitor at this time Hyperkalemia Discontinue potassium supplements Hyperphosphatemia Likely in setting of KARLA (see below) Continue to monitor Acute Kidney Injury Cr of 1.24 on admission IV fluids Hold nephrotoxic meds as able Continue to monitor Hyperglycemia Glucose levels elevated likely in setting of steroid use acutely AM [id number] Chest pain with deep breaths troponin negative EKG unremarkable likely in setting of above monitor on telemetry History of pulmonary emboli On Eliquis Hypertension On metoprolol succinate, amlodipine and Lasix Will monitor History of substance abuse in remission On methadone maintenance therapy GERD Protonix Diet: HH DVT prophylaxis: On Eliquis CODE STATUS: full code Dispo: Home once medically stable Admission and Anticipated Discharge Date Admission Date: August 31, 2024 Subjective Patient was seen in the a.m. sitting up in bed Alert and oriented x 3, talking Per nursing she is requesting Ativan repeatedly, agreeable to hydroxyzine today States that her breathing has improved Review of Systems Review of Systems: All systems reviewed & are unremarkable except as noted in Subjective Physical Exam Physical Exam: General: drowsy Psych: Appropriate mood and affect Neuro: drowsy HEENT: NC/AT CV: RRR Resp: Breath sounds with wheezing bilaterally Abdomen: Soft, nontender Extremities: No edema in lower extremities bilaterally. Results & Data Results & Data Vital Signs (Past 12 Hours) Vital Signs Temp Pulse Pulse Pulse Resp BP Pulse Ox 09/04/24 07:24 58 L 09/04/24 07:01 60 18 96 09/04/24 04:26 36.4 C L 81 24 133/80 93 09/03/24 23:10 36.6 C 66 24 114/90 93 09/03/24 21:44 65 09/03/24 20:00 09/03/24 19:51 36.7 C 70 22 154/88 H 90 09/03/24 19:43 84 18 94 O2 Del Method O2 Flow Rate 09/04/24 07:24 09/04/24 07:01 Nasal Cannula 6 09/04/24 04:26 Nasal Cannula 6 09/03/24 23:10 Nasal Cannula 6 09/03/24 21:44 09/03/24 20:00 High Flow Nasal Cannula 6 09/03/24 19:51 Nasal Cannula 6 09/03/24 19:43 Nasal Cannula 6
[2024-09-04 10:56] LABS: HCO3 VBG 43 mmol/L; Oxygen Saturation VBG 90.1 %; PCO2 VBG 72 mmHg (38-50); PO2 VBG 58 mmHg; pH VBG 7.38 (7.36-7.41)
[2024-09-04] MEDS: hydrOXYzine HCl 25 MG TAB PO STA ×2 (12:33→22:53)
--- NOTE | 2024-09-04 12:39 | Pulmonology Progress Note ---
Date of Service September 04, 2024 Assessment & Plan (1) Viral pneumonia: (2) Pneumonia due to hemophilus influenzae: (3) Acute hypoxemic respiratory failure: (4) Acute on chronic respiratory failure with hypoxia and hypercapnia: Plan 59-year-old female with history of COPD, alcoholism, methadone use, GERD and hypertension who presented to the hospital with H. influenzae pneumonia and was also found to have viral pneumonia this hospitalization with influenza A. Continue Tamiflu 75 mg twice daily. Continue with IV methylprednisone. Decreased IV methylprednisone to twice daily today. Transition to p.o. prednisone starting tomorrow. Continue ceftriaxone/azithromycin. MRSA screen negative. Continue Pulmicort and Perforomist twice daily. Start pulmonary toileting with flutter valve 4 times a day and hypertonic saline twice daily. Continue weaning oxygen as able. Continue utilizing BiPAP as needed for hypercapnia. No further recommendations at this time. Please call questions. Pulmonary to sign off. Admission and Anticipated Discharge Date Admission Date: August 31, 2024 Subjective Patient endorsing severe anxiety and requesting Ativan. She complains of a headache, cramping in her belly and shortness of breath. She denies any nausea at present. No fever presently. Review of Systems Review of Systems: All systems reviewed & are unremarkable except as noted in HPI & below Physical Exam Physical Exam: Constitutional: Patient appears to be of their stated age. Disheveled appearing. Eyes: Pupils are equal round and reactive to light. Conjunctivae are normal. Anicteric sclera. Ears nose, mouth and throat: Mallampati class 2. Normal posterior oropharynx. Uvula is midline. Neck: Trachea is midline. Visual inspection is normal. Respiratory: Diffuse expiratory wheezing with prolonged phase of exhalation. Mild tachypnea. Cardiovascular: Regular rate and rhythm. No murmurs. No edema. Gastrointestinal: Normal bowel sounds, soft, nontender and nondistended. No hepatosplenomegaly noted. Musculoskeletal: No cyanosis. Patient is able to move all extremities. Strength is 5 out of 5 in the upper and lower extremities. Skin: No rashes, warm dry and intact. Neurologic: No obvious focal neurological deficits seen. Psychiatric: Alert and oriented x3 with an anxious mood. Results & Data Results & Data Vital Signs (Past 12 Hours) Vital Signs Temp Pulse Pulse Pulse Resp BP Pulse Ox 09/04/24 11:24 36.8 C 59 L 20 129/75 92 09/04/24 10:19 09/04/24 10:13 59 L 19 92 09/04/24 07:31 36.6 C 63 20 132/67 93 09/04/24 07:24 58 L 09/04/24 07:01 60 18 96 09/04/24 04:26 36.4 C L 81 24 133/80 93 O2 Del Method O2 Flow Rate 09/04/24 11:24 Nasal Cannula 5.0 09/04/24 10:19 High Flow Nasal Cannula 6 09/04/24 10:13 Nasal Cannula 5 09/04/24 07:31 Nasal Cannula 5.0 09/04/24 07:24 09/04/24 07:01 Nasal Cannula 6 09/04/24 04:26 Nasal Cannula 6 PG Care Time/CCT Total # of Minutes Spent Total Time Spent with Patient: Total time spent is greater than 50% in coordination of care (as documented) at patient's floor/unit and/or counseling patient: Coding Level of Care Code 40137 SUB INP/OBS CARE 08/22MIN Diagnoses Viral pneumonia J12.9 Pneumonia due to hemophilus influenzae J14 Acute hypoxemic respiratory failure J96.01 Acute on chronic respiratory failure with hypoxia and hypercapnia J96.21; J96.22
[2024-09-04] MEDS: hydrOXYzine HCl 25 MG TAB PO PRN (17:04)
[2024-09-04] MEDS: methylPREDNISolone 40 MG in SYRINGE 0 ML IV SCH (20:08)
[2024-09-05] MEDS: predniSONE 20 MG TAB PO SCH (09:34)
[2024-09-05 09:46] LABS: Calcium 8.9 mg/dl (8.6-10.3); Creatinine Clr Calc Pharmacy 84.1 ml/min; Phosphorus 2.7 mg/dl (2.5-4.9); Potassium 4.2 mmol/L (3.5-5.1)
[2024-09-05 10:10] LABS: Hematocrit (blood only) 38.1 % (37.0-47.0); Mean Corpuscular Hemoglobin 31.3 pg (25.0-34.0); Mean Corpuscular Hgb Conc 31.5 g/dL (32.0-36.0); Mean Corpuscular Volume 99.2 fL (80.0-100.0); Mean Platelet Volume 10.6 fL (9.4-12.4); Nucleated RBC # (auto) 0.02 K/uL (0.00-0.12); Nucleated RBC % (auto) 0.2 %; Platelet Count 179 K/uL (130-400); RDW Coefficient of Variation 12.7 % (11.5-14.5); RDW Standard Deviation 46.1 fL (36.4-46.3); Red Blood Count 3.84 M/uL (4.20-5.40); White Blood Count 8.98 K/ul (4.8-10.8)
[2024-09-05 10:30] LABS: Basophils # (auto) 0.04 K/uL (0.00-0.20); Basophils % (auto) 0.4 %; Eosinophils # (auto) 0.01 K/uL (0.00-0.50); Eosinophils % (auto) 0.1 %; Immature Granulocytes # (auto) 0.45 K/uL (0.01-0.20); Lymphocytes # (auto) 1.47 K/uL (1.20-3.40); Lymphocytes % (auto) 16.4 %; Monocytes # (auto) 0.65 K/uL (0.11-0.59); Monocytes % (auto) 7.2 %; Neutrophils # (auto) 6.36 K/uL (1.40-6.50); Neutrophils % (auto) 70.9 %; Tear Drop Cells 1+
--- NOTE | 2024-09-05 11:25 | Hospitalist Progress Note ---
Date of Service September 05, 2024 Assessment & Plan (1) Acute exacerbation of chronic obstructive pulmonary disease: Plan Pt is a 59-year-old female with past medical history significant for COPD, on home oxygen 4 L, history of pulmonary emboli, hypertension, GERD, history of KARLA , lumbar degenerative disease, osteoarthritis, restless leg syndrome, history of anemia, methadone maintenance therapy, substance abuse in remission, ongoing tobacco abuse, depression, ongoing alcoholism who presented with shortness of breath and chest pain. Acute on chronic hypoxic respiratory failure Influenza A infection Acute exacerbation of COPD Current tobacco use Patient with history of COPD Uses 4 L of oxygen at home On admission, flu, COVID and RSV testing was negative On September 02, respiratory bio fire noting patient is positive for influenza A No leukocytosis, procalcitonin negative Chest x-ray noting underlying emphysema and concern for a possible superimposed edema or infiltrates on the left CT chest noting early pneumonia, recommending follow-up chest CT in 3 to 6 months VBG with pH of 7.35, pCO2 of 72 and bicarb of 40 sputum culture growing H. influenzae Blood cultures x 2 sets with contaminant (see below) Continue with Rocephin and azithromycin (3 doses) IV Solu-Medrol 40mg scheduled--transitioned to po prednisone Tamiflu nebs [id number] scheduled inhalers oxygen supplementation as needed Requiring BiPAP at one point, patient is a full code in case of need for intubation Very limited use of IV Ativan for alcohol withdrawal (see below) Encourage tobacco cessation, nicotine patch in place pulmonology consulted, recommended/stated the following: "...Continue Tamiflu 75 mg twice daily. Continue with IV methylprednisone. Decreased IV methylprednisone to twice daily today. Transition to p.o. prednisone starting tomorrow. Continue ceftriaxone/azithromycin. MRSA screen negative. Continue Pulmicort and Perforomist twice daily. Start pulmonary toileting with flutter valve 4 times a day and hypertonic saline twice daily. Continue weaning oxygen as able. Continue utilizing BiPAP as needed for hypercapnia..." improving Alcoholism Currently drinks 3 drinks of mixed drinks daily Patient states she cannot take gabapentin cont. thiamine and folic acid multivitamin Librium protocol and limited IV Ativan as needed in setting of acute on chronic respiratory failure Closely monitor Anxiety prn hydroxyzine as needed Possible Bacteremia Blood cultures growing bacillus megaterium and 1/ bottles Infectious disease was consulted and recommended or stated the following: -notes bacillus megaterium likely a contaminant and does not warrant treatment Anemia Hgb in 11 range, appears at baseline Continue to monitor at this time Hyperkalemia Discontinue potassium supplements Hyperphosphatemia Likely in setting of KARLA (see below) Continue to monitor Acute Kidney Injury Cr of 1.24 on admission IV fluids Hold nephrotoxic meds as able Continue to monitor Hyperglycemia Glucose levels elevated likely in setting of steroid use acutely AM [id number] Chest pain with deep breaths troponin negative EKG unremarkable likely in setting of above monitor on telemetry History of pulmonary emboli On Eliquis Hypertension On metoprolol succinate, amlodipine and Lasix Will monitor History of substance abuse in remission On methadone maintenance therapy GERD Protonix Diet: HH DVT prophylaxis: On Eliquis CODE STATUS: full code Dispo:PT/OT anticipating Home once medically stable Admission and Anticipated Discharge Date Admission Date: August 31, 2024 Subjective Patient was seen in the a.m. laying in bed Alert and oriented x 3, talking states she feels weak today Still noting some difficulty breathing but she does note that it is improved Review of Systems Review of Systems: All systems reviewed & are unremarkable except as noted in Subjective Physical Exam Physical Exam: General: drowsy Psych: Appropriate mood and affect Neuro: drowsy HEENT: NC/AT CV: RRR Resp: Breath sounds with wheezing bilaterally Abdomen: Soft, nontender Extremities: No edema in lower extremities bilaterally. Results & Data Results & Data Vital Signs (Past 12 Hours) Vital Signs Temp Pulse Pulse Pulse Resp BP BP 09/05/24 10:00 68 16 09/05/24 09:48 09/05/24 07:22 36.5 C 63 21 131/65 09/05/24 07:02 76 16 09/05/24 03:01 37.1 C 62 18 136/76 09/05/24 02:00 09/04/24 23:40 64 09/04/24 23:38 36.9 C 66 18 137/70 Pulse Ox O2 Del Method O2 Del Method O2 Flow Rate 09/05/24 10:00 91 Nasal Cannula 4 09/05/24 09:48 Nasal Cannula 4 09/05/24 07:22 93 Nasal Cannula 4 09/05/24 07:02 94 Nasal Cannula 4 09/05/24 03:01 95 High Flow Nasal Cannula 4 09/05/24 02:00 Nasal Cannula 09/04/24 23:40 09/04/24 23:38 93 High Flow Nasal Cannula 4
[2024-09-05] MEDS ORDERED: BUDESONIDE 0.5 MG/2 ML VIAL (PULMICORT) NEB PRN (16:30)
[2024-09-05] MEDS ORDERED: FORMOTEROL 20 MCG/2 ML VIAL NEB PRN (16:30)
[2024-09-05] MEDS: UMECLIDINIUM/VILANTEROL 62.5/25MCG 7 PUFFS/INHALER INH SCH (17:31)
[2024-09-05] MEDS: ALBUT/IPRATROP 3MG/0.5MG NEB 3 ML VIAL NEB SCH (20:32)
[2024-09-06] MEDS: LORazepam 2 MG/1 ML VIAL IV STA (09:34)
[2024-09-06 09:40] LABS: Hematocrit (blood only) 40.3 % (37.0-47.0); Hemoglobin 13.2 g/dl (12.0-16.0); Mean Corpuscular Hemoglobin 31.8 pg (25.0-34.0); Mean Corpuscular Hgb Conc 32.8 g/dL (32.0-36.0); Mean Corpuscular Volume 97.1 fL (80.0-100.0); Mean Platelet Volume 9.8 fL (9.4-12.4); Nucleated RBC # (auto) 0.02 K/uL (0.00-0.12); Nucleated RBC % (auto) 0.2 %; Platelet Count 196 K/uL (130-400); RDW Coefficient of Variation 12.6 % (11.5-14.5); RDW Standard Deviation 45.2 fL (36.4-46.3); Red Blood Count 4.15 M/uL (4.20-5.40); White Blood Count 11.79 K/ul (4.8-10.8)
[2024-09-06 10:00] LABS: Albumin Level 3.7 gm/dl (3.4-5.0); BUN Creatinine Ratio 28.9 (10-20); Bilirubin,Total 0.2 mg/dl (0.2-1.0); Calcium 9.3 mg/dl (8.6-10.3); Creatinine Clr Calc Pharmacy 86.6 ml/min; Globulin 3.8 gm/dl (2.5-4.0); Magnesium 2.1 mg/dl (1.7-2.4); Phosphorus 3.1 mg/dl (2.5-4.9); Total Protein 7.5 gm/dl (6.0-8.3)
[2024-09-06 10:04] LABS: Basophils # (auto) 0.07 K/uL (0.00-0.20); Basophils % (auto) 0.6 %; Eosinophils # (auto) 0.03 K/uL (0.00-0.50); Eosinophils % (auto) 0.3 %; Immature Granulocytes # (auto) 0.76 K/uL (0.01-0.20); Immature Granulocytes % (auto) 6.4 %; Lymphocytes # (auto) 1.19 K/uL (1.20-3.40); Lymphocytes % (auto) 10.1 %; Monocytes # (auto) 0.67 K/uL (0.11-0.59); Monocytes % (auto) 5.7 %; Neutrophils # (auto) 9.07 K/uL (1.40-6.50); Neutrophils % (auto) 76.9 %
--- NOTE | 2024-09-06 13:15 | Hospitalist Progress Note ---
Date of Service September 06, 2024 Assessment & Plan (1) Acute exacerbation of chronic obstructive pulmonary disease: Plan Pt is a 59-year-old female with past medical history significant for COPD, on home oxygen 4 L, history of pulmonary emboli, hypertension, GERD, history of KARLA , lumbar degenerative disease, osteoarthritis, restless leg syndrome, history of anemia, methadone maintenance therapy, substance abuse in remission, ongoing tobacco abuse, depression, ongoing alcoholism who presented with shortness of breath and chest pain. Acute on chronic hypoxic respiratory failure Influenza A infection Acute exacerbation of COPD Current tobacco use Patient with history of COPD Uses 4 L of oxygen at home On admission, flu, COVID and RSV testing was negative On September 02, respiratory bio fire noting patient is positive for influenza A No leukocytosis, procalcitonin negative Chest x-ray noting underlying emphysema and concern for a possible superimposed edema or infiltrates on the left CT chest noting early pneumonia, recommending follow-up chest CT in 3 to 6 months VBG with pH of 7.35, pCO2 of 72 and bicarb of 40 sputum culture growing H. influenzae Blood cultures x 2 sets with contaminant (see below) Continue with Rocephin and azithromycin (3 doses) IV Solu-Medrol 40mg scheduled--transitioned to po prednisone Tamiflu nebs [id number] scheduled inhalers oxygen supplementation as needed Requiring BiPAP at one point, patient is a full code in case of need for intubation Very limited use of IV Ativan for alcohol withdrawal (see below) Encourage tobacco cessation, nicotine patch in place pulmonology consulted, recommended/stated the following: "...Continue Tamiflu 75 mg twice daily. Continue with IV methylprednisone. Decreased IV methylprednisone to twice daily today. Transition to p.o. prednisone starting tomorrow. Continue ceftriaxone/azithromycin. MRSA screen negative. Continue Pulmicort and Perforomist twice daily. Start pulmonary toileting with flutter valve 4 times a day and hypertonic saline twice daily. Continue weaning oxygen as able. Continue utilizing BiPAP as needed for hypercapnia..." improving Alcoholism Currently drinks 3 drinks of mixed drinks daily Patient states she cannot take gabapentin cont. thiamine and folic acid multivitamin Librium protocol and limited IV Ativan as needed in setting of acute on chronic respiratory failure Closely monitor Anxiety prn hydroxyzine as needed- dose increased on 09/06 Patient notes allergy to BuSpar Psych consult placed, appreciate recs -Preliminarily recommending gabapentin 100 mg 3 times daily and can increase dose as needed continue to monitor Sparing use of Ativan given respiratory medical issues discussed above Possible Bacteremia Blood cultures growing bacillus megaterium and 08/01 bottles Infectious disease was consulted and recommended or stated the following: -notes bacillus megaterium likely a contaminant and does not warrant treatment Anemia Hgb in 11 range, appears at baseline Continue to monitor at this time Hyperkalemia Discontinue potassium supplements Hyperphosphatemia Likely in setting of KARLA (see below) Continue to monitor Acute Kidney Injury Cr of 1.24 on admission IV fluids Hold nephrotoxic meds as able Continue to monitor Hyperglycemia Glucose levels elevated likely in setting of steroid use acutely AM [id number] Chest pain with deep breaths troponin negative EKG unremarkable likely in setting of above monitor on telemetry History of pulmonary emboli On Eliquis Hypertension On metoprolol succinate, amlodipine and Lasix Will monitor History of substance abuse in remission On methadone maintenance therapy GERD Protonix Diet: HH DVT prophylaxis: On Eliquis CODE STATUS: full code Dispo:PT/OT anticipating Home once medically stable Admission and Anticipated Discharge Date Admission Date: August 31, 2024 Subjective patient was seen multiple times during the day States that her breathing is better but still needs another day before going home Multiple reports that patient is anxious and requesting Ativan Presented to bedside once more to discuss with patient given her respiratory issues and lower respiratory reserve, sparing use of Ativan would be recommended. Patient stated that she was agreeable to meeting with psychiatry for further evaluation. Case discussed with psychiatrist Dr. Arambula, who recommended that she continue with the gabapentin 100 mg 3 times a day and can increase the dose as needed to help with both her anxiety and alcohol use. Review of Systems Review of Systems: All systems reviewed & are unremarkable except as noted in Subjective Physical Exam Physical Exam: General: shaky, anxious Psych: Appropriate mood and affect Neuro: AAOx3, shaky, anxious HEENT: NC/AT CV: RRR Resp: Breath sounds with wheezing bilaterally Abdomen: Soft, nontender Extremities: No edema in lower extremities bilaterally. Results & Data Results & Data Vital Signs (Past 12 Hours) Vital Signs Temp Pulse Pulse Pulse Resp BP Pulse Ox 09/06/24 12:37 61 09/06/24 12:14 09/06/24 11:14 09/06/24 10:55 36.6 C 72 22 131/70 94 09/06/24 10:55 90 09/06/24 07:30 36.3 C L 63 22 135/74 95 09/06/24 07:08 68 16 93 09/06/24 03:44 36.6 C 59 L 18 128/76 94 Pulse Ox Pulse Ox Pulse Ox O2 Del Method O2 Flow Rate O2 Flow Rate O2 Flow Rate 09/06/24 12:37 09/06/24 12:14 93 90 86 L 4 4 09/06/24 11:14 Nasal Cannula 4 09/06/24 10:55 Nasal Cannula 4 09/06/24 10:55 09/06/24 07:30 Nasal Cannula 4 09/06/24 07:08 Nasal Cannula 4 09/06/24 03:44 Nasal Cannula 4 O2 Flow Rate 09/06/24 12:37 09/06/24 12:14 4 09/06/24 11:14 09/06/24 10:55 09/06/24 10:55 09/06/24 07:30 09/06/24 07:08 09/06/24 03:44
[2024-09-06] MEDS ORDERED: busPIRone 5 MG TAB PO PRN (13:53)
[2024-09-06] MEDS: hydrOXYzine HCl 25 MG TAB PO PRN (14:26)
[2024-09-06] MEDS: hydrOXYzine HCl 25 MG TAB PO STA (14:27)
[2024-09-06] MEDS: GABAPENTIN 100 MG CAP PO SCH (20:45)
[2024-09-06 22:14] VITALS: RESP 20
[2024-09-07 07:51] VITALS: TEMP 97.9; O2SAT 93
[2024-09-07 09:10] LABS: Hematocrit (blood only) 39.2 % (37.0-47.0); Hemoglobin 12.3 g/dl (12.0-16.0); Mean Corpuscular Hemoglobin 30.4 pg (25.0-34.0); Mean Corpuscular Hgb Conc 31.4 g/dL (32.0-36.0); Mean Platelet Volume 9.8 fL (9.4-12.4); Platelet Count 196 K/uL (130-400); RDW Coefficient of Variation 12.8 % (11.5-14.5); RDW Standard Deviation 45.7 fL (36.4-46.3); Red Blood Count 4.04 M/uL (4.20-5.40); White Blood Count 10.46 K/ul (4.8-10.8)
[2024-09-07 09:23] LABS: Albumin Level 3.3 gm/dl (3.4-5.0); Bilirubin,Total 0.2 mg/dl (0.2-1.0); Calcium 9.1 mg/dl (8.6-10.3); Magnesium 2.1 mg/dl (1.7-2.4); Potassium 3.9 mmol/L (3.5-5.1)
[2024-09-07 09:29] LABS: BUN Creatinine Ratio 29.5 (10-20); Globulin 3.4 gm/dl (2.5-4.0); Phosphorus 3.7 mg/dl (2.5-4.9); Total Protein 6.7 gm/dl (6.0-8.3)
[2024-09-07 09:30] LABS: Basophils # (auto) 0.07 K/uL (0.00-0.20); Basophils % (auto) 0.7 %; Eosinophils # (auto) 0.06 K/uL (0.00-0.50); Eosinophils % (auto) 0.6 %; Immature Granulocytes # (auto) 0.69 K/uL (0.01-0.20); Immature Granulocytes % (auto) 6.6 %; Lymphocytes # (auto) 1.78 K/uL (1.20-3.40); Monocytes # (auto) 0.47 K/uL (0.11-0.59); Monocytes % (auto) 4.5 %; Neutrophils # (auto) 7.39 K/uL (1.40-6.50); Neutrophils % (auto) 70.6 %
--- NOTE | 2024-09-07 11:00 | Psychiatric Consultation ---
Date of Consultation September 07, 2024 Impression / Recommendations Impression Generalized Anxiety Disorder r/o Anxiety Disorder due to another General Medical condition (COPD, URI). MDD (major depressive disorder), recurrent episode, moderate. Alcohol use disorder, moderate. Tobacco Use disorder, severe. Opioid use disorder, severe, in sustained remission on opioid agonist therapy. Cluster B personality traits. (1) Acute on chronic respiratory failure with hypoxemia: (2) Acute exacerbation of chronic obstructive pulmonary disease: (3) MDD (major depressive disorder), recurrent episode, moderate: (4) Alcohol use disorder, moderate, dependence: (5) Opioid use disorder, severe, in sustained remission: (6) Cluster B personality disorder: Plan Discussed medication treatment options in detail. Discussed risks, benefits and alternatives. Patient consented to take Hydroxyzine and Sertraline for anxiety and depression. Reviewed side effects including but not limited to cardiac conduction problems from the combination of methadone and hydroxyzine. Pt verified her understanding and chose to proceed. Continue Hydroxyzine 12.5mg q 6 hrs prn anxiety. Track EKG for QT changes. Recommend Sertraline 50mg daily for anxiety, depression. Minimize use of Ativan and other benzodiazepines as team is currently doing. Case management consult to assist with connecting pt to outpatient therapy and psychiatry. Overall I spent a total of [75] minutes for this admission including review of chart records, review of labwork, direct evaluation of the patient, counseling the patient, risk assessment, discussion with the psychiatric liaison RN and documentation in the electronic health record. Psych History Identifying Data 59 y/o Female with a PMH of COPD, alcohol use disorder on home oxygen 4 L, history of pulmonary emboli, hypertension, GERD, history of KARLA, lumbar degenerative disease, osteoarthritis, restless leg syndrome, history of anemia, opioid use disorder on methadone maintenance therapy, tobacco use disorder, depression, alcohol use disorder. She was admitted for shortness of breath and chest pain and is being treated for [id number] respiratory failure, Influenza A infection, acute exacerbation of COPD. On librium taper and limited IV ativan prn for alcohol withdrawal. Chief Complaint "I didn't like the gabapentin; it caused side effects". History of Present Illness Psychiatry was consulted for recommendations regarding medication management of anxiety. Pt did not tolerate a trial of gabapentin (discussed with Dr. Vargas 09/06/24). HPI: Pt reports long standing depression, related to her background history of trauma. She was seen by Dr Wise 05/16/24 and escitalopram 5mg recommended. She stopped taking escitalopram shortly after discharge due to side effects (fatigue). A trial of gabapentin 100mg tid per this writers recommendation was not tolerated. While she does not report significant depression at this time, she endorses anxiety with panic attacks 2-3 times a day. These are attributed to multiple stressors including her declining medical status, recurrent bouts of SOB, being socially isolated, stress from keeping her many medical appointments, and recent difficulties with her respiratory equipment (which has combusted 3 times). She admitted to consuming 4-6 mixed drinks per day, partly to control her anxiety. She has cut back her smoking to 2-3 cigarettes per day. She would like to stop smoking but her boyfriend, who is her only support, both smokes and drinks, impeding her efforts to quit. She denied suicidal ideation, intent or plan at this time. She finds hydroxyzine helpful in controlling her anxiety and would like to continue taking it. She was made aware of the potential drug interaction with methadone with QT prolongation. EKG 08/31/24 was within normal limits. While escitalopram was not tolerated, she is also open to a trial of sertraline, with outpatient psychiatric follow up and therapy for her anxiety. Currently without signs of alcohol withdrawal. Psychiatric History: MDD (major depressive disorder), recurrent episode, moderate: Alcohol use disorder, severe: Cluster B personality disorder: Opioid use disorder, severe, in sustained remission on opioid agonist therapy. She sees a therapist every other week. In the past, she has taken Fluoxetine (was still using drugs at the time) and did not experience much benefit. She has tried gabapentin in the past and has a whole bottle at home. She has not found this helpful. She does not recall a trial of Lyrica in the past. PARMJIT History: As documented. PMH: Allergies to flonase, umeclidinium, vilanterol, Buspar (rash), Cymbalta (rash). Edema of both lower extremities Difficult intravenous access Pulmonary hypertension Follow with [facility] Hx of pulmonary embolus dx 08/2022 - unknown the cause. treated with anticoagulants. 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 Down to three drinks a week GERD (gastroesophageal reflux disease) History of aspiration pneumonia 08/2022 from vomiting -- reports she "passed out and vomited while she was incoherent" per KRISHNA RN COPD (chronic obstructive pulmonary disease) well controlled currently, uses 4lpm oxygen via n/c continuously Hx of sinus bradycardia episode when vitamin levels were low. no current issue History of endocarditis --- r/t IV drug use. S/P transesophageal echocardiogram (RENATA) Lung nodule monitoring Constipation Anxiety On home oxygen therapy 4lpm via n/c daily Recurrent major depressive disorder Surgical History S/P right cataract extraction Status post total hip replacement, right Psychosocial History: She moved up to [place] to care for her mother who 4 years ago and settled here. She has very few social contacts other than her on-off boyfriend of 18 years. Allergies Allergy/AdvReac Type Severity Reaction Status Date / Time fluticasone furoate AdvReac Intermediate INTENSE Verified 03/09/24 08:50 [From Trelegy Ellipta] HEADACHES umeclidinium AdvReac Intermediate INTENSE Verified 03/09/24 08:50 [From Trelegy Ellipta] HEADACHES vilanterol AdvReac Intermediate INTENSE Verified 03/09/24 08:50 [From Trelegy Ellipta] HEADACHES buspirone [From BuSpar] AdvReac Mild Rash Verified 03/09/24 08:50 olive oil AdvReac Unknown reacts Verified 03/09/24 08:50 with methadone Home Medications Medication Instructions Recorded Confirmed Type amlodipine 10 mg tablet 10 mg PO QAM 05/16/22 08/31/24 History albuterol sulfate 90 mcg/actuation 2 puff inhalation Q6H PRN Cough 09/12/22 08/31/24 History aerosol inhaler furosemide 40 mg tablet 40 mg PO QAM #30 tabs 09/21/22 08/31/24 Rx methadone 10 mg/5 mL oral solution 100 mg PO QAM 06/25/23 08/31/24 History nicotine 7 mg/24 hr daily 1 patch transdermal DAILY 06/25/23 08/31/24 History transdermal patch pantoprazole 40 mg tablet,delayed 40 mg PO QAM 06/25/23 08/31/24 History release potassium chloride 10 mEq 20 meq PO [facility]HS 11/20/23 08/31/24 History tablet,extended release(part/cryst) folic acid 1 mg tablet 1 mg PO QAM 01/21/24 08/31/24 History magnesium oxide 400 mg (241.3 mg 800 mg PO HS 05/09/24 08/31/24 History magnesium) tablet apixaban 5 mg tablet (Eliquis) 5 mg PO AMHS 08/31/24 08/31/24 History metoprolol succinate 25 mg 12.5 mg PO AMHS 08/31/24 08/31/24 History tablet,extended release 24 hr umeclidinium 62.5 mcg-vilanterol 1 inh inhalation QAM PRN per pt 08/31/24 08/31/24 History 25 mcg/actuation powdr for inhalation (Anoro Ellipta) cefdinir 300 mg capsule 300 mg PO BID #6 caps 09/07/24 Rx hydroxyzine HCl 25 mg tablet 12.5 mg (1/2 x 25 mg) PO Q6H PRN 09/07/24 Rx anxiety #30 tabs prednisone 5 mg tablet See Rx Instructions PO .COMPLEX 09/07/24 Rx #108 tabs sertraline 50 mg tablet 50 mg PO DAILY #30 tabs 09/07/24 Rx Patient History Medical History Edema of both lower extremities Difficult intravenous access Pulmonary hypertension Follow with S Hx of pulmonary embolus dx 08/2022 - unknown the cause. treated with anticoagulants. 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 Down to three drinks a week GERD (gastroesophageal reflux disease) History of aspiration pneumonia 08/2022 from vomiting -- reports she "passed out and vomited while she was incoherent" per PAT RN COPD (chronic obstructive pulmonary disease) well controlled currently, uses 4lpm oxygen via n/c continuously Hx of sinus bradycardia episode when vitamin levels were low. no current issue History of endocarditis --- r/t IV drug use. S/P transesophageal echocardiogram (RENATA) Lung nodule monitoring Constipation Anxiety On home oxygen therapy 4lpm via n/c daily Recurrent major depressive disorder Surgical History S/P right cataract extraction Status post total hip replacement, right Family History Other Family history non-contributory No family history of adverse response to anesthesia Social History Smoking Status: Current every day smoker Tobacco Type: Cigarettes Cigarettes Per Day: 3; Second Hand Exposure: No; Do You Dip or Chew Tobacco: No; Hx Alcohol Use: Yes Alcohol type: other Hx Substance Use: No Preferred Language: Bahamian Communication Ability: Effective [employer] Specialist Required: No Beliefs That Will Affect Care: None Current Living Situation: Alone Feels Safe at Home: Yes Assistive Devices: Cane and Walker Physical Exam Psychiatric: A+Ox3, euthymic affect Anxious, guarded. Orientation: alert, oriented to person, oriented to place, oriented to time and cooperative Apperance: appropriately dressed, + disheveled and appeared stated age Eye Contact: good eye contact Motor Behavior: no abnormal motor movements Speech: normal rate/rhythm/volume of speech short of breath. Affect: + anxious affect and mood congruent with affect Mood: + anxious mood Thought Process: goal directed thought process, linear/logical thought process and clear/coherent thought process Thought Content: + preoccupation Suicidal Thoughts: denies suicidal thoughts, denies suicidal plan and denies suicidal intent Homicidal Thoughts: denies homicidal thoughts, denies homicidal plan and denies homicidal intent None. Cognition: recent memory grossly intact, attention grossly intact and language grossly intact Estimated Intelligence: average estimated intelligence Insight: good insight Judgment: + limited judgement Vital Signs (Past 24 Hours): Last Vital Signs Temp 36.6 C 09/07/24 07:50 Pulse 62 09/07/24 07:50 Resp 20 09/07/24 07:50 BP 139/73 09/07/24 07:50 Pulse Ox 93 09/07/24 07:50 O2 Del Method Nasal Cannula 09/07/24 08:00 O2 Flow Rate 4 09/07/24 08:00 FiO2 50 09/02/24 15:57 Results & Data (PSY) Medications Administered Acetaminophen (Acetaminophen 325 Mg Tab) 650 mg PO Q4H PRN PRN Reason: Pain or Fever Stop: 09/30/24 02:50 Last Admin: 09/04/24 11:31 Dose: 650 mg Documented By: Admin: 09/04/24 04:40 Dose: 650 mg Documented By: Admin: 09/03/24 20:00 Dose: 650 mg Documented By: Admin: 09/02/24 21:32 Dose: 650 mg Documented By: Admin: 09/01/24 08:08 Dose: 650 mg Documented By: Admin: 08/31/24 14:32 Dose: 650 mg Documented By: AGUSTINA Albuterol (Albut/Ipratrop 3mg/0.5mg Neb 3 Ml Vial) 3 ml NEB Q4H PRN; Protocol PRN Reason: Shortness Of Breath Or Wheezing Stop: 09/30/24 02:50 Last Admin: 09/03/24 11:53 Dose: 3 ml Documented By: ELAINE Albuterol (Albut/Ipratrop 3mg/0.5mg Neb 3 Ml Vial) 3 ml NEB BIDR DAVID; Protocol Stop: 10/05/24 18:59 Last Admin: 09/07/24 07:35 Dose: 3 ml Documented By: Admin: 09/06/24 19:46 Dose: 3 ml Documented By: Admin: 09/06/24 07:08 Dose: 3 ml Documented By: Admin: 09/05/24 20:32 Dose: 3 ml Documented By: CLARENCE Amlodipine Besylate (Amlodipine Besylate 5 Mg Tab) 10 mg PO QAM [facility] Stop: 09/30/24 08:59 Last Admin: 09/07/24 08:32 Dose: 10 mg Documented By: Admin: 09/06/24 07:37 Dose: 10 mg Documented By: Admin: 09/05/24 08:10 Dose: 10 mg Documented By: Admin: 09/04/24 08:27 Dose: 10 mg Documented By: Admin: 09/03/24 08:52 Dose: 10 mg Documented By: Admin: 09/02/24 08:48 Dose: 10 mg Documented By: Admin: 09/01/24 08:12 Dose: 10 mg Documented By: Admin: 08/31/24 09:57 Dose: 10 mg Documented By: AGUSTINA Apixaban (Apixaban 5 Mg Tablet) 5 mg PO BID [facility] Stop: 09/30/24 08:59 Last Admin: 09/07/24 08:32 Dose: 5 mg Documented By: Admin: 09/06/24 20:45 Dose: 5 mg Documented By: Admin: 09/06/24 07:38 Dose: 5 mg Documented By: Admin: 09/05/24 19:57 Dose: 5 mg Documented By: Admin: 09/05/24 08:13 Dose: 5 mg Documented By: Admin: 09/04/24 20:07 Dose: 5 mg Documented By: Admin: 09/04/24 08:27 Dose: 5 mg Documented By: Admin: 09/03/24 20:00 Dose: 5 mg Documented By: Admin: 09/03/24 08:53 Dose: 5 mg Documented By: Admin: 09/02/24 20:17 Dose: 5 mg Documented By: Admin: 09/02/24 08:48 Dose: 5 mg Documented By: Admin: 09/01/24 19:52 Dose: 5 mg Documented By: Admin: 09/01/24 08:12 Dose: 5 mg Documented By: Admin: 08/31/24 20:27 Dose: 5 mg Documented By: Admin: 08/31/24 09:58 Dose: 5 mg Documented By: AM Folic Acid (Folic Acid 1 Mg Tab) 1 mg PO QAM DAVID Stop: 09/30/24 08:59 Last Admin: 09/07/24 08:32 Dose: 1 mg Documented By: Admin: 09/06/24 07:37 Dose: 1 mg Documented By: Admin: 09/05/24 08:12 Dose: 1 mg Documented By: Admin: 09/04/24 08:27 Dose: 1 mg Documented By: Admin: 09/03/24 08:53 Dose: 1 mg Documented By: Admin: 09/02/24 08:48 Dose: 1 mg Documented By: Admin: 09/01/24 08:12 Dose: 1 mg Documented By: Admin: 08/31/24 09:58 Dose: 1 mg Documented By: AM Furosemide (Furosemide 40 Mg Tab) 40 mg PO QAM DAVID Stop: 09/30/24 08:59 Last Admin: 09/07/24 08:32 Dose: 40 mg Documented By: Admin: 09/06/24 07:39 Dose: 40 mg Documented By: Admin: 09/05/24 08:14 Dose: 40 mg Documented By: Admin: 09/04/24 08:28 Dose: 40 mg Documented By: Admin: 09/03/24 08:52 Dose: 40 mg Documented By: Admin: 09/02/24 08:48 Dose: 40 mg Documented By: Admin: 09/01/24 08:12 Dose: 40 mg Documented By: Admin: 08/31/24 09:58 Dose: 40 mg Documented By: AGUSTINA Gabapentin (Gabapentin 100 Mg Cap) 100 mg PO TID DAVID Stop: 10/06/24 20:59 Last Admin: 09/07/24 08:34 Dose: Not Given Documented By: Admin: 09/06/24 20:45 Dose: 100 mg Documented By: ÁNGEL Guaifenesin/Dextromethorphan (Guaifenesin/Dextrom Syrup 100mg/10mg 5ml Udc) 5 ml PO Q6H PRN PRN Reason: Cough Stop: 09/30/24 23:14 Last Admin: 09/04/24 08:27 Dose: 5 ml Documented By: Admin: 09/03/24 09:01 Dose: 5 ml Documented By: Admin: 09/02/24 08:53 Dose: 5 ml Documented By: Admin: 09/01/24 19:50 Dose: 5 ml Documented By: Admin: 09/01/24 08:07 Dose: 5 ml Documented By: Admin: 09/01/24 00:23 Dose: 5 ml Documented By: JULIO Hydroxyzine HCl (Hydroxyzine Hcl 25 Mg Tab) 50 mg PO Q8H PRN PRN Reason: Anxiety Stop: 10/04/24 16:08 Last Admin: 09/07/24 08:33 Dose: 50 mg Documented By: Admin: 09/06/24 22:33 Dose: 50 mg Documented By: Admin: 09/06/24 14:26 Dose: 50 mg Documented By: EVELIA Ceftriaxone Sodium (Rocephin) 2,000 mg in 50 mls @ 100 mls/hr IV Q24H DAVID Stop: 09/15/24 02:59 Last Infusion: 09/07/24 06:32 Dose: Infused Documented By: Admin: 09/07/24 05:59 Dose: 100 mls/hr Documented By: Infusion: 09/06/24 08:35 Dose: Infused Documented By: Admin: 09/06/24 06:40 Dose: 100 mls/hr Documented By: SJShadi Infusion: 09/05/24 05:37 Dose: Infused Documented By: SJShadi Admin: 09/05/24 05:06 Dose: 100 mls/hr Documented By: Infusion: 09/04/24 05:57 Dose: Infused Documented By: Admin: 09/04/24 05:27 Dose: 100 mls/hr Documented By: Infusion: 09/03/24 06:50 Dose: Infused Documented By: Admin: 09/03/24 05:42 Dose: 100 mls/hr Documented By: Infusion: 09/02/24 07:07 Dose: Infused Documented By: Admin: 09/02/24 06:21 Dose: 100 mls/hr Documented By: Infusion: 09/01/24 03:57 Dose: Infused Documented By: Admin: 09/01/24 03:17 Dose: 100 mls/hr Documented By: JULIO Insulin Aspart (Insulin Aspart Per Unit Charge) 0 units SC ACHS DAVID Stop: 10/02/24 20:59 Last Admin: 09/07/24 08:41 Dose: 3 units Documented By: Co-signed By: DIONISIO Admin: 09/06/24 20:46 Dose: 1 units Documented By: ÁNGEL Co-signed By: SHAYY Admin: 09/06/24 17:53 Dose: Not Given Documented By: Admin: 09/06/24 12:03 Dose: 8 units Documented By: EVELIA Co-signed By: DIONISIO Admin: 09/06/24 08:35 Dose: Not Given Documented By: Admin: 09/05/24 20:34 Dose: Not Given Documented By: Admin: 09/05/24 17:29 Dose: 6 units Documented By: EVELIA Co-signed By: JULIANA Admin: 09/05/24 12:42 Dose: 6 units Documented By: EVELIA Co-signed By: PEMA Admin: 09/05/24 08:46 Dose: Not Given Documented By: Admin: 09/04/24 20:08 Dose: Not Given Documented By: Admin: 09/04/24 17:18 Dose: 5 units Documented By: CARLA Co-signed By: Admin: 09/04/24 11:31 Dose: 2 units Documented By: MIGUEL Co-signed By: AM Admin: 09/04/24 08:30 Dose: 4 units Documented By: MIGUEL Co-signed By: JULIANA Admin: 09/03/24 20:11 Dose: 1 units Documented By: EFREN Co-signed By: LORI Admin: 09/03/24 17:03 Dose: 3 units Documented By: MIGUEL Co-signed By: Admin: 09/03/24 11:57 Dose: 7 units Documented By: MIGUEL Co-signed By: MICHELLE Admin: 09/03/24 08:53 Dose: 1 units Documented By: MIGUEL Co-signed By: Admin: 09/02/24 21:32 Dose: 3 units Documented By: EFREN Co-signed By: JOSE Lorazepam (Lorazepam 2 Mg/1 Ml Vial) 1 mg IV UD PRN; Protocol PRN Reason: EtOH Withdrawal AWSS Score 6,7 Stop: 09/30/24 02:50 Last Admin: 09/06/24 01:46 Dose: 1 mg Documented By: Admin: 09/05/24 20:54 Dose: 1 mg Documented By: Admin: 09/05/24 14:10 Dose: 1 mg Documented By: Admin: 09/05/24 08:02 Dose: 1 mg Documented By: Admin: 09/04/24 04:40 Dose: 1 mg Documented By: Admin: 09/03/24 23:28 Dose: 1 mg Documented By: Admin: 09/03/24 15:22 Dose: 1 mg Documented By: Admin: 09/03/24 11:20 Dose: 1 mg Documented By: Admin: 09/02/24 02:30 Dose: 1 mg Documented By: Admin: 09/01/24 20:10 Dose: 1 mg Documented By: Admin: 09/01/24 17:13 Dose: 1 mg Documented By: Admin: 09/01/24 14:43 Dose: 1 mg Documented By: RNFlaquita Admin: 09/01/24 08:27 Dose: 1 mg Documented By: Admin: 09/01/24 03:53 Dose: 1 mg Documented By: Admin: 08/31/24 20:42 Dose: 1 mg Documented By: Admin: 08/31/24 14:33 Dose: 1 mg Documented By: Admin: 08/31/24 06:29 Dose: 1 mg Documented By: Admin: 08/31/24 03:49 Dose: 1 mg Documented By: HDC Lorazepam (Lorazepam 2 Mg/1 Ml Vial) 2 mg IV UD PRN; Protocol PRN Reason: EtOH Withdrawal AWSS Score 8,9 Stop: 09/30/24 02:50 Last Admin: 09/02/24 13:16 Dose: 2 mg Documented By: Admin: 09/01/24 10:47 Dose: 2 mg Documented By: MIGUEL Magnesium Oxide (Magnesium Oxide 400 Mg Tab) 800 mg PO HS [facility] Stop: 09/30/24 20:59 Last Admin: 09/06/24 20:45 Dose: 800 mg [place] [facility] [place]: 09/05/24 19:56 Dose: 800 mg [place]ed By[place] [facility] [place]: 09/04/24 20:07 Dose: 800 mg [place]ed [place] [facility] [place]: 09/03/24 19:59 Dose: 800 mg Documented By: [facility] Admin: 09/02/24 20:17 Dose: 800 mg Documented By: [facility] Admin: 09/01/24 19:51 Dose: 800 mg Documented By: Admin: 08/31/24 20:27 Dose: 800 mg Documented By: JULIO Methadone HCl (Methadone Oral Soln 2 Mg/Ml) [facility] [place]: 09/14/24 08:59 Last Admin: 09/07/24 08:32 Dose: 100 mg Documented By: Admin: 09/06/24 07:34 Dose: 100 mg Documented By: Admin: 09/05/24 08:02 Dose: 100 mg Documented By: Admin: 09/04/24 08:27 Dose: 100 mg Documented By: Admin: 09/03/24 09:01 Dose: 100 mg Documented By: Admin: 09/02/24 08:53 Dose: 100 mg Documented By: Admin: 09/01/24 08:09 Dose: 100 mg Documented By: Admin: 08/31/24 10:06 Dose: 100 mg Documented By: AM Metoprolol Succinate (Metoprolol Succ 25mg Ext Rel Tab) 12.5 mg PO BID [facility] Stop: 09/30/24 08:59 Last Admin: 09/07/24 08:31 Dose: 12.5 mg Documented By: Admin: 09/06/24 20:46 Dose: 12.5 mg Documented By: Admin: 09/06/24 07:39 Dose: 12.5 mg Documented By: Admin: 09/05/24 19:57 Dose: 12.5 mg Documented By: Admin: 09/05/24 08:14 Dose: 12.5 mg Documented By: Admin: 09/04/24 20:06 Dose: 12.5 mg Documented By: Admin: 09/04/24 08:27 Dose: 12.5 mg Documented By: Admin: 09/03/24 20:01 Dose: 12.5 mg Documented By: Admin: 09/03/24 08:53 Dose: 12.5 mg Documented By: Admin: 09/02/24 20:18 Dose: 12.5 mg Documented By: Admin: 09/02/24 10:21 Dose: 12.5 mg Documented By: Admin: 09/01/24 19:52 Dose: 12.5 mg Documented By: Admin: 09/01/24 08:12 Dose: 12.5 mg Documented By: Admin: 08/31/24 20:27 Dose: 12.5 mg Documented By: Admin: 08/31/24 09:57 Dose: 12.5 mg Documented By: AGUSTINA Miscellaneous (Remove Nicoderm Patch) 1 each N/A DAILY@0859 [facility] Stop: 09/30/24 08:58 Last Admin: 09/07/24 08:32 Dose: 1 each Documented By: Admin: 09/06/24 07:38 Dose: 1 each Documented By: Admin: 09/05/24 08:13 Dose: 1 each Documented By: Admin: 09/04/24 08:28 Dose: 1 each Documented By: Admin: 09/03/24 09:03 Dose: 1 each Documented By: Admin: 09/02/24 08:50 Dose: 1 each Documented By: Admin: 09/01/24 08:09 Dose: 1 each Documented By: Admin: 08/31/24 09:59 Dose: Not Given Documented By: AM Multivitamins (Multivitamin Tab) 1 tab PO QAM DAVID Stop: 09/30/24 08:59 Last Admin: 09/07/24 08:31 Dose: 1 tab Documented By: Admin: 09/06/24 07:37 Dose: 1 tab Documented By: Admin: 09/05/24 08:13 Dose: 1 tab Documented By: Admin: 09/04/24 08:27 Dose: 1 tab Documented By: Admin: 09/03/24 08:53 Dose: 1 tab Documented By: Admin: 09/02/24 08:48 Dose: 1 tab Documented By: Admin: 09/01/24 08:12 Dose: 1 tab Documented By: Admin: 08/31/24 09:57 Dose: 1 tab Documented By: AM Nicotine (Nicotine 14 Mg/24 Hr Patch) 1 patch TD DAILY DAVID Stop: 09/30/24 02:54 Last Admin: 09/07/24 08:31 Dose: 1 patch Documented By: Admin: 09/06/24 07:35 Dose: 1 patch Documented By: Admin: 09/05/24 08:09 Dose: 1 patch Documented By: Admin: 09/04/24 08:26 Dose: 1 patch Documented By: Admin: 09/03/24 08:51 Dose: 1 patch Documented By: Admin: 09/02/24 08:48 Dose: 1 patch Documented By: Admin: 09/01/24 08:10 Dose: 1 patch Documented By: Admin: 08/31/24 09:55 Dose: 1 patch Documented By: AM Methadone Solution - Patient's Own Controlled Med 1 1 each PO QAM DAVID Stop: 09/14/24 08:59 Last Admin: 09/07/24 08:32 Dose: 1 ml Documented By: Admin: 09/06/24 07:40 Dose: 1 ml Documented By: Admin: 09/05/24 08:15 Dose: 1 ml Documented By: Admin: 09/04/24 08:28 Dose: 1 ml Documented By: Admin: 09/03/24 09:03 Dose: 1 ml Documented By: Admin: 09/02/24 08:49 Dose: 1 ml Documented By: Admin: 09/01/24 08:13 Dose: 1 ml Documented By: Admin: 08/31/24 10:06 Dose: 50 ml Documented By: AGUSTINA Oseltamivir Phosphate (Oseltamivir Phosphate 75 Mg Cap) 75 mg PO BID [facility]; Protocol Stop: 09/07/24 20:59 Last Admin: 09/07/24 08:31 Dose: 75 mg Documented By: Admin: 09/06/24 20:46 Dose: 75 mg Documented By: Admin: 09/06/24 07:39 Dose: 75 mg Documented By: Admin: 09/05/24 19:56 Dose: 75 mg Documented By: Admin: 09/05/24 08:12 Dose: 75 mg Documented By: Admin: 09/04/24 20:07 Dose: 75 mg Documented By: Admin: 09/04/24 08:28 Dose: 75 mg Documented By: Admin: 09/03/24 20:01 Dose: 75 mg Documented By: Admin: 09/03/24 08:51 Dose: 75 mg Documented By: Admin: 09/02/24 20:18 Dose: 75 mg Documented By: EFREN Pantoprazole S[facility] (Pantoprazole 40 Mg Tab) [facility] [place]: 09/30/24 08:59 Last Admin: 09/07/24 08:31 Dose: 40 mg Documented By: Admin: 09/06/24 07:40 Dose: 40 mg Documented By: Admin: 09/05/24 08:12 Dose: 40 mg Documented By: Admin: 09/04/24 08:27 Dose: 40 mg Documented By: Admin: 09/03/24 08:53 Dose: 40 mg Documented By: Admin: 09/02/24 08:48 Dose: 40 mg Documented By: Admin: 09/01/24 08:12 Dose: 40 mg Documented By: Admin: 08/31/24 09:58 Dose: 40 mg Documented By: AGUSTINA Phenol (Chloraseptic (Phenol) 1.4% Soln 180 Ml Btl) 1 sprays MT Q6H PRN PRN Reason: Sore Throat Stop: 10/01/24 19:48 Last Admin: 09/01/24 20:12 Dose: 1 sprays Documented By: LMP Polyethylene Glycol (Polyethylene (Miralax) 17 Gm Pack) 17 gm PO DAILY PRN PRN Reason: Constipation Stop: 09/30/24 02:50 Last Admin: 09/03/24 09:02 Dose: 17 gm Documented By: MIGUEL Prednisone (Prednisone 20 Mg Tab) 40 mg PO DAILY [facility] Stop: 10/05/24 08:59 Last Admin: 09/07/24 08:31 Dose: 40 mg Documented By: Admin: 09/06/24 07:34 Dose: 40 mg Documented By: Admin: 09/05/24 09:34 Dose: 40 mg Documented By: EVELIA Sodium Chloride (Sodium Chlor 7% 4 Ml Neb) 4 ml NEB BIDR [facility] Stop: 10/03/24 18:59 Last Admin: 09/07/24 07:36 Dose: Not Given Documented By: Admin: 09/06/24 19:46 Dose: 4 ml Documented By: Admin: 09/06/24 07:08 Dose: 4 ml Documented By: Admin: 09/05/24 20:33 Dose: 4 ml Documented By: Admin: 09/05/24 07:02 Dose: 4 ml Documented By: Admin: 09/04/24 19:19 Dose: 4 ml Documented By: Admin: 09/04/24 07:00 Dose: 4 ml Documented By: Admin: 09/03/24 19:42 Dose: 4 ml Documented By: ALVARO Thiamine HCl (Thiamine Hcl 100 Mg Tab) 100 mg PO QAM [facility] Stop: 09/30/24 08:59 Last Admin: 09/07/24 08:31 Dose: 100 mg Documented By: Admin: 09/06/24 07:40 Dose: 100 mg Documented By: Admin: 09/05/24 08:15 Dose: 100 mg Documented By: Admin: 09/04/24 08:27 Dose: 100 mg Documented By: Admin: 09/03/24 08:53 Dose: 100 mg Documented By: Admin: 09/02/24 08:48 Dose: 100 mg Documented By: Admin: 09/01/24 08:12 Dose: 100 mg Documented By: Admin: 08/31/24 10:05 Dose: Not Given Documented By: [place] [address] [facility] Care Lvl 1 Patient Type New Medical Decision Making Low Complexity Diagnoses Acute on chronic respiratory failure with hypoxemia J96.21 Acute exacerbation of chronic obstructive pulmonary disease J44.1 MDD (major depressive disorder), recurrent episode, moderate F33.1 Alcohol use disorder, moderate, dependence F10.20 Opioid use disorder, severe, in sustained remission F11.21 Cluster B personality disorder F60.89 Time Spent (min) 75
--- NOTE | 2024-09-07 11:11 | Psychiatric Consultation ---
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 MDD (major depressive disorder), recurrent episode, moderate. Alcohol use disorder, moderate, dependence. Opioid use disorder, severe, in sustained remission on opioid agonist therapy. Cluster B personality traits. Psych History Chief Complaint "I'm really feeling anxious". History of Present Illness Psychiatry was consulted for recommendations regarding medication management of anxiety. Pt did not tolerate a trial of gabapentin (discussed with Dr. Vargas 09/06/24). HPI: Pt reports long standing depression, related to her background history of trauma. She was seen by Dr Wise 05/16/24 and escitalopram 5mg recommended. She stopped taking escitalopram shortly after discharge due to side effects (fatigue). A trial of gabapentin 100mg tid per this writers recommendation was not tolerated. While she does not report significant depression at this time, she endorses anxiety with panic attacks 2-3 times a day. These are attributed to multiple stressors including her declining medical status, recurrent bouts of SOB, being socially isolated, stress from keeping her many medical appointments, and recent difficulties with her respiratory equipment (which has combusted 3 times). She admitted to consuming 4-6 mixed drinks per day, partly to control her anxiety. She has cut back her smoking to 2-3 cigarettes per day. She would like to stop smoking but her boyfriend, who is her only support, both smokes and drinks, impeding her efforts to quit. She denied suicidal ideation, intent or plan at this time. She finds hydroxyzine helpful in controlling her anxiety and would like to continue taking it. She was made aware of the potential drug interaction with methadone with QT prolongation. EKG 08/31/24 was within normal limits. While escitalopram was not tolerated, she is also open to a trial of sertraline, with outpatient psychiatric follow up and therapy for her anxiety. Currently without signs of alcohol withdrawal. Psychiatric History: MDD (major depressive disorder), recurrent episode, moderate: Alcohol use disorder, moderate, dependence: Cluster B personality disorder: Opioid use disorder, severe, in sustained remission on opioid agonist therapy. She sees a therapist every other week. In the past, she has taken Fluoxetine (was still using drugs at the time) and did not experience much benefit. She has tried gabapentin in the past and has a whole bottle at home. She has not found this helpful. She does not recall a trial of Lyrica in the past. PARMJIT History: As documented. PMH: Allergies to flonase, umeclidinium, vilanterol, Buspar (rash), Cymbalta (rash). Edema of both lower extremities Difficult intravenous access Pulmonary hypertension Follow with [facility] Hx of pulmonary embolus dx 08/2022 - unknown the cause. treated with anticoagulants. 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 Down to three drinks a week GERD (gastroesophageal reflux disease) History of aspiration pneumonia 08/2022 from vomiting -- reports she "passed out and vomited while she was incoherent" per KRISHNA RN COPD (chronic obstructive pulmonary disease) well controlled currently, uses 4lpm oxygen via n/c continuously Hx of sinus bradycardia episode when vitamin levels were low. no current issue History of endocarditis --- r/t IV drug use. S/P transesophageal echocardiogram (RENATA) Lung nodule monitoring Constipation Anxiety On home oxygen therapy 4lpm via n/c daily Recurrent major depressive disorder Surgical History S/P right cataract extraction Status post total hip replacement, right Psychosocial History: She moved up to [place] to care for her mother who 4 years ago and settled here. She has very few social contacts other than her on-off boyfriend of 18 years. Allergies Allergy/AdvReac Type Severity Reaction Status Date / Time fluticasone furoate AdvReac Intermediate INTENSE Verified 03/09/24 08:50 [From Trelegy Ellipta] HEADACHES umeclidinium AdvReac Intermediate INTENSE Verified 03/09/24 08:50 [From Trelegy Ellipta] HEADACHES vilanterol AdvReac Intermediate INTENSE Verified 03/09/24 08:50 [From Trelegy Ellipta] HEADACHES buspirone [From BuSpar] AdvReac Mild Rash Verified 03/09/24 08:50 olive oil AdvReac Unknown reacts Verified 03/09/24 08:50 with methadone Home Medications Medication Instructions Recorded Confirmed Type amlodipine 10 mg tablet 10 mg PO QAM 05/16/22 08/31/24 History albuterol sulfate 90 mcg/actuation 2 puff inhalation Q6H PRN Cough 09/12/22 08/31/24 History aerosol inhaler furosemide 40 mg tablet 40 mg PO QAM #30 tabs 09/21/22 08/31/24 Rx methadone 10 mg/5 mL oral solution 100 mg PO QAM 06/25/23 08/31/24 History nicotine 7 mg/24 hr daily 1 patch transdermal DAILY 06/25/23 08/31/24 History transdermal patch pantoprazole 40 mg tablet,delayed 40 mg PO QAM 06/25/23 08/31/24 History release potassium chloride 10 mEq 20 meq PO [facility] 11/20/23 08/31/24 History tablet,extended release(part/cryst) folic acid 1 mg tablet 1 mg PO QAM 01/21/24 08/31/24 History magnesium oxide 400 mg (241.3 mg 800 mg PO HS 05/09/24 08/31/24 History magnesium) tablet apixaban 5 mg tablet (Eliquis) 5 mg PO [facility] 08/31/24 08/31/24 History metoprolol succinate 25 mg 12.5 mg PO [facility] 08/31/24 08/31/24 History tablet,extended release 24 hr umeclidinium 62.5 mcg-vilanterol 1 inh inhalation QAM PRN per pt 08/31/24 08/31/24 History 25 mcg/actuation powdr for inhalation (Anoro Ellipta) cefdinir 300 mg capsule 300 mg PO BID #6 caps 09/07/24 Rx hydroxyzine HCl 25 mg tablet 12.5 mg (1/2 x 25 mg) PO Q6H PRN 09/07/24 Rx anxiety #30 tabs prednisone 5 mg tablet See Rx Instructions PO .COMPLEX 09/07/24 Rx #108 tabs sertraline 50 mg tablet 50 mg PO DAILY #30 tabs 09/07/24 Rx Patient History Medical History Edema of both lower extremities Difficult intravenous access Pulmonary hypertension Follow with S Hx of pulmonary embolus dx 08/2022 - unknown the cause. treated with anticoagulants. 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 Down to three drinks a week GERD (gastroesophageal reflux disease) History of aspiration pneumonia 08/2022 from vomiting -- reports she "passed out and vomited while she was incoherent" per KRISHNA RN COPD (chronic obstructive pulmonary disease) well controlled currently, uses 4lpm oxygen via n/c continuously Hx of sinus bradycardia episode when vitamin levels were low. no current issue History of endocarditis --- r/t IV drug use. S/P transesophageal echocardiogram (RENATA) Lung nodule monitoring Constipation Anxiety On home oxygen therapy 4lpm via n/c daily Recurrent major depressive disorder Surgical History S/P right cataract extraction Status post total hip replacement, right Family History Other Family history non-contributory No family history of adverse response to anesthesia Social History Smoking Status: Current every day smoker Tobacco Type: Cigarettes Cigarettes Per Day: 3; Second Hand Exposure: No; Do You Dip or Chew Tobacco: No; Tobacco Cessation Education Requested by Patient: No Hx Alcohol Use: Yes Alcohol type: other Hx Substance Use: No Preferred Language: Divehi Communication Ability: Effective Supervisor Fertilizer Processing Required: No Beliefs That Will Affect Care: None Current Living Situation: Alone Feels Safe at Home: Yes Safety Concerns: Feels Safe At This Time Assistive Devices: Cane and Walker Assistive Devices Comment: portable O2 with patient Physical Exam Psychiatric: A+Ox3, euthymic affect (Anxious dysphoric affect. ) Orientation: alert, oriented to person, oriented to place, oriented to time and cooperative Apperance: appropriately dressed, + disheveled and appeared stated age Eye Contact: good eye contact Motor Behavior: no abnormal motor movements Speech: normal rate/rhythm/volume of speech Affect: + anxious affect and mood congruent with affect Mood: + anxious mood Thought Process: goal directed thought process, linear/logical thought process and clear/coherent thought process Thought Content: + preoccupation Suicidal Thoughts: denies suicidal thoughts, denies suicidal plan and denies suicidal intent Homicidal Thoughts: denies homicidal thoughts, denies homicidal plan and denies homicidal intent Cognition: recent memory grossly intact, attention grossly intact and language grossly intact Estimated Intelligence: average estimated intelligence Insight: good insight Judgment: + limited judgement Vital Signs (Past 24 Hours): Last Vital Signs Temp 36.6 C 09/07/24 07:50 Pulse 62 09/07/24 07:50 Resp 20 09/07/24 07:50 BP 139/73 09/07/24 07:50 Pulse Ox 93 09/07/24 07:50 O2 Del Method Nasal Cannula 09/07/24 08:00 O2 Flow Rate 4 09/07/24 08:00 FiO2 50 09/02/24 15:57 Coding Level of Care Code 36767 Inpt Consult Level 1
--- NOTE | 2024-09-07 11:23 | Discharge Summary ---
Discharge Summary Date of Service September 07, 2024 Principal Dx & Hospital Course #1 = Principal Diagnosis (1) Acute exacerbation of chronic obstructive pulmonary disease: Plan Pt is a 59-year-old female with past medical history significant for COPD, on home oxygen 4 L, history of pulmonary emboli, hypertension, GERD, history of KARLA, lumbar degenerative disease, osteoarthritis, restless leg syndrome, history of anemia, methadone maintenance therapy, substance abuse in remission, ongoing tobacco abuse, depression, ongoing alcoholism who presented with shortness of breath and chest pain. Acute on chronic hypoxic respiratory failure Influenza A infection Acute exacerbation of COPD Current tobacco use Patient with history of COPD Uses 4 L of oxygen at home On admission, flu, COVID and RSV testing was negative On September 02, respiratory bio fire noting patient is positive for influenza A Sputum culture grew H. influenzae No leukocytosis, procalcitonin negative Chest x-ray noting underlying emphysema and concern for a possible superimposed edema or infiltrates on the left CT chest noting early pneumonia, recommending follow-up chest CT in 3 to 6 month s VBG with pH of 7.35, pCO2 of 72 and bicarb of 40 Blood cultures x 2 sets with contaminant growth(see below) Treated with Rocephin and and completed treatment with azithromycin IV Solu-Medrol 40mg scheduled--transitioned to po prednisone Tamiflu nebs [id number] scheduled inhalers oxygen supplementation as needed Requiring BiPAP at one point, patient was a full code in case of need for intubation (no intubation was needed) Very limited use of IV Ativan for alcohol withdrawal (see below), pt requesting doses multiple times for anxiety Encouraged tobacco cessation, nicotine patch was in place pulmonology was consulted, recommended/stated the following: "...Continue Tamiflu 75 mg twice daily. Continue with IV methylprednisone. Decreased IV methylprednisone to twice daily today. Transition to p.o. prednisone starting tomorrow. Continue ceftriaxone/azithromycin. MRSA screen negative. Continue Pulmicort and Perforomist twice daily. Start pulmonary toile ting with flutter valve 4 times a day and hypertonic saline twice daily. Continue weaning oxygen as able. Continue utilizing BiPAP as needed for hypercapnia..." on the day of discharge, patient already completed treatment with Tamiflu, as well as azithromycin. She was discharged home with an additional 3 days of p.o. cefdinir as well as an extended taper of prednisone. She was at her baseline 4 L of oxygen. She was encouraged to continue with her home use of inhalers and keep close follow-up with pulmonology after discharge. Close PCP and pulmonology follow-up after discharge. Patient will need a follow-up chest CT in 3 to 6 months. Alcoholism Currently drinks 3 drinks of mixed drinks daily Patient states she cannot take gabapentin cont. thiamine and folic acid multivitamin Librium protocol and limited IV Ativan as needed in setting of acute on chronic respiratory failure Alcohol cessation was encouraged upon discharge Anxiety prn hydroxyzine as needed- dose increased on 09/06 Patient notes allergy to BuSpar Psych consult placed, they recommended the following on the day of discharge: -Preliminarily recommended gabapentin 100 mg 3 times daily With upward titration as needed to help with both alcohol use and anxiety. However the patient stated that she was not able to tolerate the gabapentin. -Psych recommended discharge with sertraline 50 mg daily and as needed hydroxyzine 12.5 mg every 6 hours as needed with closely monitoring her QTc QTc was 444 on day of discharge Close PCP and psychiatry follow-up after discharge Possible Bacteremia Blood cultures grew bacillus megaterium in 1/ bottles Infectious disease was consulted and recommended or stated the following: - bacillus megaterium likely a contaminant and does not warrant treatment Anemia Hgb in 11 range, appears at baseline Continue to monitor at this time Hyperkalemia Discontinued potassium supplements K 3.9 on discharge Hyperphosphatemia Likely in setting of KARLA (see below) resolved on discharge Acute Kidney Injury Cr of 1.24 on admission IV fluids Hold nephrotoxic meds as able resolved on discharge Hyperglycemia Prediabetes Glucose levels elevated likely in setting of steroid use acutely [id number] 5.9 Close PCP followup especially while on extended steroid taper Chest pain with deep breaths troponin negative EKG unremarkable likely in setting of above Resolved on discharge History of pulmonary emboli On Eliquis Hypertension On metoprolol succinate, amlodipine and Lasix Will monitor History of substance abuse in remission On methadone maintenance therapy GERD Protonix Notes For Next Care Provider Please closely monitor glucose levels while on extended prednisone taper. Levels were elevated while hospitalized requiring SSI Follow-up chest CT in 3 to 6 months Close Pulmonology followup after discharge Medication Changes From Visit per Psychiatry: Sertraline 50 mg daily with hydroxyzine 12.5mg every 6 hours as needed Extended Prednisone taper cefdinir 300mg BID x 3 more days Admission HPI Per Admitting Provider 59-year-old female with past medical history significant for COPD, on home oxygen 4 L, history of pulmonary emboli, hypertension, GERD, history of KARLA, lumbar degenerative disease, osteoarthritis, restless leg syndrome, history of anemia, methadone maintenance therapy, substance abuse in remission, ongoing tobacco abuse, depression, ongoing alcoholism comes in because of shortness of breath and chest pain. Patient says since yesterday evening she is having chest pain in the left lower chest. The pain is more when taking deep breath. She also feeling short of breath. Has cough with greenish phlegm which is chronic. She uses a 4 L oxygen all the time at home. Feeling hot and cold and chills but denies any fevers. Has headache. Vision is okay. No runny nose or sore throat. No nausea. Has some abdominal discomfort. Had couple of episodes of diarrhea today morning. No blood in stools. Micturating okay. Hemodynamics are okay. Past medical history. As mentioned above Past surgical history. Right total hip replacement. Social history. . Used to smoke 2 packs a day for 40 years. Currently smoking half pack a day. Patient says she is drinking 3 shots of mixed drink da isabela used to drink 6 shots in the past. History of heroin abuse currently on methadone. Family history. Mother had adenocarcinoma brain tumor. Sister had heart disease. Brother has hypertension. Admission Exam Per Admitting Provider General- Not in distress Head- atraumatic Eyes- PERRL. ENT- oropharynx clear Neck- supple, no JVD. Lungs- clear to auscultation b/l expiratory wheezing present, no crackles heard. Heart- regular rate and rhythm; no murmur, no gallop. Abdomen- normal bowel sounds, soft, nontender, no distension Extremities- trace pretibial edema present , no erythema seen Neuro- alert, oriented PERRL, no facial palsy; no dysarthria; moves extremities Discharge Exam General: shaky, anxious Psych: Appropriate mood and affect Neuro: AAOx3, shaky, anxious HEENT: NC/AT CV: RRR Resp: Breath sounds with wheezing bilaterally Abdomen: Soft, nontender Extremities: No edema in lower extremities bilaterally. Updated Medication List Medication Instructions Recorded Confirmed Type amlodipine 10 mg tablet 10 mg PO QAM 05/16/22 08/31/24 History albuterol sulfate 90 mcg/actuation 2 puff inhalation Q6H PRN Cough 09/12/22 08/31/24 History aerosol inhaler furosemide 40 mg tablet 40 mg PO QAM #30 tabs 09/21/22 08/31/24 Rx methadone 10 mg/5 mL oral solution 100 mg PO QAM 06/25/23 08/31/24 History nicotine 7 mg/24 hr daily 1 patch transdermal DAILY 06/25/23 08/31/24 History transdermal patch pantoprazole 40 mg tablet,delayed 40 mg PO QAM 06/25/23 08/31/24 History release potassium chloride 10 mEq 20 meq PO [facility] 11/20/23 08/31/24 History tablet,extended release(part/cryst) folic acid 1 mg tablet 1 mg PO QAM 01/21/24 08/31/24 History magnesium oxide 400 mg (241.3 mg 800 mg PO HS 05/09/24 08/31/24 History magnesium) tablet apixaban 5 mg tablet (Eliquis) 5 mg PO [facility] 08/31/24 08/31/24 History metoprolol succinate 25 mg 12.5 mg PO [facility]HS 08/31/24 08/31/24 History tablet,extended release 24 hr umeclidinium 62.5 mcg-vilanterol 1 inh inhalation QAM PRN per pt 08/31/24 08/31/24 History 25 mcg/actuation powdr for inhalation (Anoro Ellipta) cefdinir 300 mg capsule 300 mg PO BID #6 caps 09/07/24 Rx hydroxyzine HCl 25 mg tablet 12.5 mg (1/2 x 25 mg) PO Q6H PRN 09/07/24 Rx anxiety #30 tabs prednisone 5 mg tablet See Rx Instructions PO .COMPLEX 09/07/24 Rx #108 tabs sertraline 50 mg tablet 50 mg PO DAILY #30 tabs 09/07/24 Rx Hospital Stay Data Consultations 08/31/24 00:05 ED Decision to Admit Stat 09/01/24 12:09 Consult Infectious Diseases Routine 09/02/24 09:24 Consult Pulmonology Routine 09/06/24 13:53 Consult Psychiatry Routine Diagnostic Imagining Performed 09/02/24 09:23 CT chest without contrast [CT chest diagnostic wo con] Urgent Chest X-Ray 08/30/24 22:46 Exam(s): XR CXR 1 VIEW EXAM: XR Chest, 1 View CLINICAL HISTORY: Reason for exam: Chest pain, nonspecific. TECHNIQUE: Frontal view of the chest. COMPARISON: May 13, 2024 FINDINGS: Lungs: There are prominent interstitial markings throughout the mid to lower lungs suggesting underlying emphysema. There is a greater than previous suggesting superimposed edema or infiltrates, greatest in the left costophrenic angle. Pleural space: Unremarkable. No pneumothorax. Heart: Upper normal in size. Mediastinum: Unremarkable. Normal mediastinal contour. Bones/joints: Unremarkable. No acute fracture. Vasculature: The aorta is mildly calcified. Upper abdomen: Unremarkable as visualized. No pneumoperitoneum under the diaphragm. IMPRESSION: There are prominent interstitial markings throughout the mid to lower lungs suggesting underlying emphysema. There is a greater than previous suggesting superimposed edema or infiltrates, greatest in the left costophrenic angle. Electronically signed by: Lamberto Guzmán MD 08/31/24 01:[address] 09/02/24 09:23 CT chest diagnostic wo con CT DOSE: 665.17 mGy.cm CLINICAL HISTORY: hypoxia, SOB, COPD exacerbation. TECHNIQUE: Multiaxial CT images of the chest were performed without contrast. A dose lowering technique was utilized adhering to the principles of ALARA. COMPARISON STUDY: 09/13/2022 FINDINGS: There are scattered areas of reticular, groundglass, and bandlike opacity most prominent in the lung bases. There is no lobar consolidation or pleural effusion. No pneumothorax. No enlarged adenopathy. No pericardial effusion. There are mild coronary artery and aortic calcifications. There is fatty liver. No acute osseous findings. IMPRESSION: Mild pneumonitis/early pneumonia. Suggest follow-up chest CT in 3-6 months to make sure that these findings resolve without underlying nodule. ACT 112: Negative or not required by law. Electronically signed by: Pravin Parekh M.D. 09/02/2024 11:02 AM Discharge Instructions Given to Patient (Per Discharging Provider) Bhumika, You were admitted and treated for a severe respiratory infection. You tested positive for the flu in the setting of underlying COPD and other respiratory issues. You completed treatment with Tamiflu and one antibiotic. Please continue with the prescribed antibiotic cefdinir for an additional 3 days. Given that you are still very wheezy though you are back to your baseline oxygen use, we are discharging you home with an extended prednisone taper. Please take it as prescribed. You will need your glucose levels monitored while on the steroids, your primary care provider can help with that. Continue with your oxygen use at home. You were also seen by the psychiatrist for your severe anxiety. They started you on the medication sertraline 50 mg daily with as needed hydroxyzine. Please continue with those medications as prescribed and keep close follow-up with your primary care provider after discharge. Please try to not use alcohol at home. Again after discharge, please keep close follow-up with your primary care provider, pulmonology and psychiatry. Please keep close follow up with your primary care provider after discharge. Please do not hesitate to come back to the emergency room if your symptoms worsen or return. It was a pleasure taking care of you while you were here. Total Time Total Time Spent Total Time Spent (In Minutes): 60
[2024-09-07 13:00] VITALS: BP 131/65
[2024-09-07 14:02] VITALS: PULSE 66
--- NOTE | 2024-09-08 18:56 | Electrocardiogram Report ---
Test Reason : Blood Pressure : */* mmHG Vent. Rate : 68 BPM Atrial Rate : 68 BPM P-R Int : 122 ms QRS Dur : 80 ms QT Int : 418 ms P-R-T Axes : 53 67 72 degrees QTcB Int : 444 ms Normal sinus rhythm Normal ECG When compared with ECG of 31-Aug-2024 06:06, No significant change was found Confirmed by Rocael Dill ([id number]) on 09/08/2024 6:56:09 PM Referred By: REFERRED SELF Confirmed By: Rocael Dill
--- NOTE | 2024-09-09 10:36 | Coding Query ---
PRESENT ON ADMISSION QUERY To promote full compliance with coding requirements relating to pateint care, physician participation is requested in all cases of roof truss detailer uncertainty. Please assist us with the question(s) below: Please place an X within the parenthesis (x). The following diagnosis listed in this patient's medical record require physician assistance to determine if they were present on admission (POA) or not. Please advise for each diagnosis whether it was present on admission, not present on admission, or if it was clinically undetermined. 1. INFLUENZA A INFECTION (documentation begins on the 09/02 Pulmonary Consultation and then through the rest of the record) ( ) Present On Admission ( ) Not Present On Admission (x ) Clinically Undetermined Thank you Kasie Bryan *Definition of the present on admission (POA)-Present on admission is defined as present at the time the order for inpatient admission occurs. Conditions that develop during an outpatient encounter prior to a written order for inpatient admission (including emergency department, observation, or outpatient surgery) are considered present on admission. MTDD
== END 2024-09-07 14:15 | disposition home or self-care (01) | DRG 190 ==
LOC: ED 22:26 → 2E 08-31 01:04 → SUATTDRO 08-31 01:04 → 2E 08-31 02:30

== ENCOUNTER 2024-11-10 18:46 | Inpatient (IN) ==
--- NOTE | 2024-11-10 19:59 | XRay Report ---
Chest radiograph, one view History: Chest pain Comparison: 08/30/2024 Findings: Single AP view of the chest performed. No focal consolidation or pleural effusion. Scattered thin, irregular opacity at the lung bases again noted, which may represent scar and/or sequelae of emphysema. No pneumothorax. The cardiomediastinal silhouette is within normal limits. Normal pulmonary vascularity. No evidence for lymphadenopathy. No visualized bony or soft tissue abnormality. Impression: No acute process. Similar chronic findings, as above. Electronically signed by Fabian Cee 11-10-2024 7:58 PM
[2024-11-10 20:00] LABS: Influenza A virus by PCR Negative (Neg); Influenza B virus by PCR Negative (Neg); RSV by PCR Negative (Neg); SARS CoV2 RNA(COVID-19) Ceph NEGATIVE (Negative)
[2024-11-10 20:57] LABS: Base Excess VBG 11.9 mEq/L; HCO3 VBG 38 mmol/L; Oxygen Saturation VBG 73.5 %; PCO2 VBG 55 mmHg (38-50); PO2 VBG 42 mmHg; pH VBG 7.45 (7.36-7.41)
[2024-11-10 21:02] LABS: Basophils # (auto) 0.04 K/uL (0.00-0.20); Basophils % (auto) 0.3 %; Eosinophils # (auto) 0.16 K/uL (0.00-0.50); Eosinophils % (auto) 1.3 %; Hematocrit (blood only) 36.5 % (37.0-47.0); Hemoglobin 11.7 g/dl (12.0-16.0); Immature Granulocytes # (auto) 0.34 K/uL (0.01-0.20); Immature Granulocytes % (auto) 2.7 %; Lymphocytes # (auto) 1.32 K/uL (1.20-3.40); Lymphocytes % (auto) 10.5 %; Mean Corpuscular Hemoglobin 30.1 pg (25.0-34.0); Mean Corpuscular Hgb Conc 32.1 g/dL (32.0-36.0); Mean Corpuscular Volume 93.8 fL (80.0-100.0); Mean Platelet Volume 9.8 fL (9.4-12.4); Monocytes # (auto) 0.68 K/uL (0.11-0.59); Monocytes % (auto) 5.4 %; Neutrophils # (auto) 9.99 K/uL (1.40-6.50); Neutrophils % (auto) 79.8 %; Platelet Count 187 K/uL (130-400); RDW Coefficient of Variation 13.6 % (11.5-14.5); RDW Standard Deviation 46.3 fL (36.4-46.3); Red Blood Count 3.89 M/uL (4.20-5.40); White Blood Count 12.53 K/ul (4.8-10.8)
[2024-11-10 21:04] LABS: Partial Thromboplastin Time 28 Seconds (21-31); Prothrombin Time 10.4 Seconds (9.0-12.0)
[2024-11-10 21:12] LABS: Albumin Level 3.8 gm/dl (3.4-5.0); Bilirubin,Total 0.2 mg/dl (0.2-1.0); Calcium 9.1 mg/dl (8.6-10.3)
[2024-11-10 21:16] LABS: Troponin I High Sensitivity 4.6 pg/ml (0-14)
[2024-11-10 21:18] LABS: Albumin Globulin Ratio 1.2 (0.9-2); BUN Creatinine Ratio 9.7 (10-20); Creatinine Clr Calc Pharmacy 83.1 ml/min; Globulin 3.2 gm/dl (2.5-4.0)
[2024-11-10] MEDS: LORazepam 1 MG TAB SL STA (21:23)
--- NOTE | 2024-11-10 21:55 | CT Scan Report ---
Exam(s): CT HEAD Without Contrast EXAM: CT Head Without Intravenous Contrast CLINICAL HISTORY: Reason for exam: guerra. TECHNIQUE: Axial computed tomography images of the head/brain without intravenous contrast. CTDI is 38.169 mGy and DLP is 546.359 mGy-cm. Automated exposure control was utilized for the study. A dose lowering technique was utilized adhering to the principles of ALARA. COMPARISON: Head CT 05/16/2022 FINDINGS: Artifacts: Images are slightly degraded by motion artifact. Brain: No intracranial hemorrhage, mass-effect, or cerebral edema. Atrophy and chronic microvascular ischemic changes. Ventricles: Unremarkable. Bones/joints: Unremarkable. No fracture. Soft tissues: Unremarkable. Sinuses: No acute sinusitis. Mastoid air cells: Unremarkable as visualized. IMPRESSION: 1. No acute intracranial abnormality. Electronically signed by: Ryne William MD 11/10/24 21:54 PM
[2024-11-10] MEDS: methylPREDNISolone 125 MG/2 ML VIAL IV STA (22:04)
[2024-11-10] MEDS: ALBUT/IPRATROP 3MG/0.5MG NEB 3 ML VIAL NEB STA ×3 (22:04→23:18)
--- NOTE | 2024-11-10 22:39 | Emergency Department Note ---
History of Present Illness General Chief Complaint: Chest Pain Stated Complaint: LOW 02,CHEST PAIN,COUGH Time Seen by Provider: 11/10/24 19:22 History of Present Illness Provider Complaint: shortness of breath, cough and chest pain Onset (ago): day(s) (1) Severity: similar to previous episodes Consistency/Duration: + progressively worsening Maximum Pain Intensity: 6 Relieved By: + oxygen Exacerbated By: + exertion and + coughing Known history of: COPD Associated symptoms: + chest pain (Left-sided chest), + wheezing, + sputum production, + chest congestion and + other (Headache); no pain with inspiration, no fever, no orthopnea, no hemoptysis, no nausea/vomiting, no abdominal pain or no rash Related Data Home oxygen amount: 4 liters Home Medications Medication Instructions Recorded Confirmed Type amlodipine 10 mg tablet 10 mg PO QA 05/16/22 11/10/24 History albuterol sulfate 90 mcg/actuation 2 puff inhalation Q6H PRN Cough 09/12/22 11/10/24 History aerosol inhaler furosemide 40 mg tablet 40 mg PO QA #30 tabs 09/21/22 11/10/24 Rx methadone 10 mg/5 mL oral solution 100 mg PO QA 06/25/23 11/10/24 History nicotine 7 mg/24 hr daily 1 patch transdermal DAILY 06/25/23 11/10/24 History transdermal patch pantoprazole 40 mg tablet,delayed 40 mg PO QA 06/25/23 11/10/24 History release potassium chloride 10 mEq 20 meq PO [facility] 11/20/23 11/10/24 History tablet,extended release(part/cryst) folic acid 1 mg tablet 1 mg PO QAM 01/21/24 11/10/24 History magnesium oxide 400 mg (241.3 mg 800 mg PO HS 05/09/24 11/10/24 History magnesium) tablet apixaban 5 mg tablet (Eliquis) 5 mg PO [facility] 08/31/24 11/10/24 History metoprolol succinate 25 mg 12.5 mg PO [facility] 08/31/24 11/10/24 History tablet,extended release 24 hr umeclidinium 62.5 mcg-vilanterol 1 inh inhalation QA 08/31/24 11/10/24 History 25 mcg/actuation powdr for inhalation (Anoro Ellipta) hydroxyzine HCl 25 mg tablet 12.5 mg (1/2 x 25 mg) PO Q6H PRN 09/07/24 11/10/24 Rx anxiety #30 tabs prednisone 5 mg tablet See Rx Instructions PO .COMPLEX 09/07/24 11/10/24 Rx #108 tabs Allergies Allergy/AdvReac Type Severity Reaction Status Date / Time fluticasone furoate AdvReac Intermediate INTENSE Verified 11/10/24 21:57 [From Trelegy Ellipta] HEADACHES umeclidinium AdvReac Intermediate INTENSE Verified 11/10/24 21:57 [From Trelegy Ellipta] HEADACHES vilanterol AdvReac Intermediate INTENSE Verified 11/10/24 21:57 [From Trelegy Ellipta] HEADACHES buspirone [From BuSpar] AdvReac Mild Rash Verified 11/10/24 21:57 sertraline AdvReac Mild NAUSEATED Verified 11/10/24 21:57 olive oil AdvReac Unknown reacts Verified 11/10/24 21:57 with methadone Past Med/Surg History Problem List (Updated 11/10/24 @ 22:39 by Piotr Hoffman MD) Viral pneumonia Positive blood culture Pneumonia due to hemophilus influenzae Opioid use disorder, severe, in sustained remission Cluster B personality disorder Alcohol use disorder, moderate, dependence MDD (major depressive disorder), recurrent episode, moderate Alcoholism /alcohol abuse Acute on chronic respiratory failure with hypoxemia Acute exacerbation of chronic obstructive pulmonary disease (Acute) Symptomatic cholelithiasis Edema, peripheral (Acute) 11/20/23 Hypomagnesemia (Acute) 11/20/23 Hypokalemia (Acute) 11/20/23 Frequent PVCs (Acute) Bradycardia (Acute) Acute on chronic respiratory failure with hypoxia and hypercapnia 08/23/23 History of alcohol abuse Tobacco use Sepsis due to pneumonia 08/23/23 Parainfluenza infection (Acute) 08/23/23 Pneumonia (Acute) 08/23/23 Encounter for pre-operative examination (~09/02/24) Pulmonary embolism dx 08/2022 - unknown the cause. treated with anticoagulants. Pulmonary hypertension 09/13/22 Hypercapnic respiratory failure 09/13/22 Muscle cramp (Acute) 09/13/22 PAC (premature atrial contraction) (Acute) Frequent PVCs (Acute) Acute hypoxemic respiratory failure (Acute) 09/13/22 Methadone maintenance therapy patient GERD (gastroesophageal reflux disease) HTN (hypertension) COPD (chronic obstructive pulmonary disease) (Acute) Medical History Edema of both lower extremities Difficult intravenous access Pulmonary hypertension Follow with [facility] Hx of pulmonary embolus dx 08/2022 - unknown the cause. treated with anticoagulants. 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 Down to three drinks a week GERD (gastroesophageal reflux disease) History of aspiration pneumonia 08/2022 from vomiting -- reports she "passed out and vomited while she was incoherent" per PAT RN COPD (chronic obstructive pulmonary disease) well controlled currently, uses 4lpm oxygen via n/c continuously Hx of sinus bradycardia episode when vitamin levels were low. no current issue History of endocarditis --- r/t IV drug use. S/P transesophageal echocardiogram (RENATA) Lung nodule monitoring Constipation Anxiety On home oxygen therapy 4lpm via n/c daily Recurrent major depressive disorder Surgical History S/P right cataract extraction Status post total hip replacement, right Family History Other Family history non-contributory No family history of adverse response to anesthesia Social History Smoking Status: Current every day smoker Tobacco Type: Cigarettes Cigarettes Per Day: 3; Second Hand Exposure: No; Do You Dip or Chew Tobacco: No; Hx Alcohol Use: Yes Alcohol type: other Hx Substance Use: No Preferred Language: Portuguese Communication Ability: Effective Professor Of Fine Art Required: No Beliefs That Will Affect Care: None Current Living Situation: Alone Feels Safe at Home: Yes Assistive Devices: Cane and Walker Physical Exam 2 Vital Signs: Vital Signs - 24 hr 11/10/24 18:53 11/10/24 18:53 11/10/24 19:20 Temperature 36.9 C Temperature Source Skin Pulse Rate 79 73 Pulse Rate [Apical ] Pulse Rhythm [Apic al] Pulse Strength [Ap ical] Respiratory Rate 22 23 Respiratory Effort / Characteristics Short of Breath Respiratory Depth Blood Pressure 154/71 H Blood Pressure [Le ft Arm] Blood Pressure Susy n 98 Blood Pressure Susy n [Left Arm] Blood Pressure Pos ition [Left Arm] Pulse Oximetry 93 94 Oxygen Delivery Me thod Room Air Nasal Cannula Oxygen Flow Rate 4 Sepsis Recent Feve r Within 48 Hours No Sepsis New/Unexpla ined Change in Men cecelia Status N/A Sepsis Action Take n by Nursing No Action Required 11/10/24 21:07 11/10/24 22:05 Temperature Temperature Source Pulse Rate 70 Pulse Rate [Apical ] 74 Pulse Rhythm [Apic al] Regular Pulse Strength [Ap ical] Normal Respiratory Rate 16 Respiratory Effort / Characteristics Respiratory Depth Normal Blood Pressure Blood Pressure [Le ft Arm] 131/78 Blood Pressure Susy n Blood Pressure Susy n [Left Arm] 95 Blood Pressure Pos ition [Left Arm] Lying Pulse Oximetry 93 Oxygen Delivery Me thod Nasal Cannula Oxygen Flow Rate 4 Sepsis Recent Feve r Within 48 Hours Sepsis New/Unexpla ined Change in Men cecelia Status Sepsis Action Take n by Nursing Physical Exam: Physical Exam GENERAL: oriented to person, place, and time. appears well-developed and well- nourished. HENT: Exam performed. - Head: Normocephalic and atraumatic. EYES: Conjunctivae and EOM are normal. Right eye exhibits no discharge. Left eye exhibits no discharge. No scleral icterus. NECK: Normal range of motion. Neck supple. No JVD present. CV: Normal rate, regular rhythm, normal heart sounds and intact distal pulses. There is no peripheral edema. Palpable radial pulses bue. PULM/CHEST: Expiratory wheezes bilaterally. ABD: The abdomen is soft. There is no tenderness. NEURO: Motor and sensation grossly intact. SKIN: Skin is warm and dry. He is not diaphoretic. PSYCH: normal mood and affect. Behavior is normal. Judgment and thought content normal. Course Course 1921: The patient was evaluated in room C9. A complete history and physical exam was performed Cardiac monitoring: An order was placed for continuous cardiac monitoring. The monitor shows a rate of 80 with sinus rhythm interpreted by me 2203: Vital signs stable supplemental oxygen. Nursing reports that the patient feels like she is getting go into withdrawal as she is an alcoholic and did not drink today. Ativan ordered for patient. 2233: Vital signs stable on supplemental oxygen. Patient reports she feels better after Ativan IV steroids and DuoNeb treatments. She is still wheezing. Patient states she does not feel comfortable going home as no one is there to watch her tonight and she is worried about her breathing or going into withdrawal. Patient will be admitted to the [facility] hospitalist team. Administered Medications Discontinued Medications Albuterol (Albut/Ipratrop 3mg/0.5mg Neb 3 Ml Vial) 3 ml NEB NOW STA; Protocol Stop: 11/10/24 21:53 Last Admin: 11/10/24 22:04 Dose: 3 ml Documented By: ANGELA Albuterol (Albut/Ipratrop 3mg/0.5mg Neb 3 Ml Vial) 3 ml NEB NOW STA; Protocol Stop: 11/10/24 21:53 Last Admin: 11/10/24 22:04 Dose: 3 ml Documented By: ANGELA Lorazepam (Lorazepam 1 Mg Tab) 1 mg SL NOW STA Stop: 11/10/24 21:14 Last Admin: 11/10/24 21:23 Dose: 1 mg Documented By: ANGELA Methylprednisolone (Methylprednisolone 125 Mg/2 Ml Vial) 125 mg IV NOW STA Stop: 11/10/24 21:53 Last Admin: 11/10/24 22:04 Dose: 125 mg Documented By: ANGELA Medical Decision Making Laboratory Data Attestation: I reviewed the patient's lab results. 11/10/24 20:32 11/10/24 20:32 Lab Results 11/10/24 11/10/24 Range/Units 19:00 20:32 WBC 12.53 H (4.8-10.8) K/ul RBC 3.89 L (4.20-5.40) M/uL Hgb 11.7 L (12.0-16.0) g/dl Hct 36.5 L (37.0-47.0) % MCV 93.8 (80.0-100.0) fL MCH 30.1 (25.0-34.0) pg MCHC 32.1 (32.0-36.0) g/dL RDW Std Deviation 46.3 (36.4-46.3) fL RDW Coeff of Cee 13.6 (11.5-14.5) % Plt Count 187 (130-400) K/uL MPV 9.8 (9.4-12.4) fL Immature Gran % (Auto) 2.7 % Neut % (Auto) 79.8 % Lymph % (Auto) 10.5 % Bryan % (Auto) 5.4 % Eos % (Auto) 1.3 % Baso % (Auto) 0.3 % Neut # (Auto) 9.99 H (1.40-6.50) K/uL Lymph # (Auto) 1.32 (1.20-3.40) K/uL Bryan # (Auto) 0.68 H (0.11-0.59) K/uL Eos # (Auto) 0.16 (0.00-0.50) K/uL Baso # (Auto) 0.04 (0.00-0.20) K/uL Immature Gran # (Auto) 0.34 H (0.01-0.20) K/uL PT 10.4 (9.0-12.0) Seconds INR 1.0 (0.9-1.1) APTT 28 (21-31) Seconds PTT Ratio 1.0 VBG pH 7.45 H (7.36-7.41) VBG pCO2 55 H (38-50) mmHg VBG pO2 42 mmHg VBG HCO3 38 mmol/L VBG O2 Saturation 73.5 % VBG Base Excess 11.9 mEq/L Sodium 137 (136-145) mmol/L Potassium 4.0 (3.5-5.1) mmol/L Chloride 95 L (98-107) mmol/L Carbon Dioxide 37 H (21-32) mmol/L Anion Gap 5 (3-11) BUN 9 (6-23) mg/dl Creatinine 0.93 (0.6-1.2) mg/dl Est Cr Clr Drug Dosing 83.1 ml/min eGFR 71.69 BUN/Creatinine Ratio 9.7 L (10-20) Glucose 92 (70-99(Fasting)) mg/dl Calcium 9.1 (8.6-10.3) mg/dl Total Bilirubin 0.2 (0.2-1.0) mg/dl AST 42 H (13-39) U/L ALT 50 (7-52) U/L Alkaline Phosphatase 107 H (34-104) U/L Troponin I High Sens 4.6 (0-14) pg/ml Total Protein 7.0 (6.0-8.3) gm/dl Albumin 3.8 (3.4-5.0) gm/dl Globulin 3.2 (2.5-4.0) gm/dl Albumin/Globulin Ratio 1.2 (0.9-2) SARS-CoV-2 (PCR) NEGATIVE (Negative) Influenza Type A (PCR) Negative (Neg) Influenza Type B (PCR) Negative (Neg) RSV (RT-PCR) Negative (Neg) Imaging Data Attestation: I personally reviewed and interpreted this imaging study as follows: My Impression: Chest x-ray negative. Airway clear. No pneumothorax. No consolidation. No cardiomegaly or cephalization.. No free air under the diaphragm. No fractures of the skeletal structures. Radiologist's Impression: Chest X-Ray 11/10/24 18:56 Chest radiograph, one view History: Chest pain Comparison: 08/30/2024 Findings: Single AP view of the chest performed. No focal consolidation or pleural effusion. Scattered thin, irregular opacity at the lung bases again noted, which may represent scar and/or sequelae of emphysema. No pneumothorax. The cardiomediastinal silhouette is within normal limits. Normal pulmonary vascularity. No evidence for lymphadenopathy. No visualized bony or soft tissue abnormality. Impression: No acute process. Similar chronic findings, as above. Electronically signed by Fabian Cee 11-10-2024 7:[address] 11/10/24 19:46 Exam(s): CT HEAD Without Contrast EXAM: CT Head Without Intravenous Contrast CLINICAL HISTORY: Reason for exam: guerra. TECHNIQUE: Axial computed tomography images of the head/brain without intravenous contrast. CTDI is 38.169 mGy and DLP is 546.359 mGy-cm. Automated exposure control was utilized for the study. A dose lowering technique was utilized adhering to the principles of ALARA. COMPARISON: Head CT 05/16/2022 FINDINGS: Artifacts: Images are slightly degraded by motion artifact. Brain: No intracranial hemorrhage, mass-effect, or cerebral edema. Atrophy and chronic microvascular ischemic changes. Ventricles: Unremarkable. Bones/joints: Unremarkable. No fracture. Soft tissues: Unremarkable. Sinuses: No acute sinusitis. Mastoid air cells: Unremarkable as visualized. IMPRESSION: 1. No acute intracranial abnormality. Electronically signed by: Ryne William MD 11/10/24 21:54 PM ECG Data Attestation: I personally reviewed and interpreted this ECG as follows: Interpretation: Sinus rhythm with a rate of 79. ND 114 QRS [address] elevation or ST depression. No delta wave. [facility] Narrative 1921: The patient was evaluated in room C9. A complete history and physical exam was performed Cardiac monitoring: An order was placed for continuous cardiac monitoring. The monitor shows a rate of 80 with sinus rhythm interpreted by me 2203: Vital signs stable supplemental oxygen. Nursing reports that the patient feels like she is getting go into withdrawal as she is an alcoholic and did not drink today. Ativan ordered for patient. 2233: Vital signs stable on supplemental oxygen. Patient reports she feels better after Ativan IV steroids and DuoNeb treatments. She is still wheezing. Patient states she does not feel comfortable going home as no one is there to watch her tonight and she is worried about her breathing or going into withdrawal. Patient will be admitted to the [facility] hospitalist team. Impression & Plan COPD (chronic obstructive pulmonary disease) Discharge Plan Visit Data Chief Complaint: Chest Pain Stated Complaint: LOW 02,CHEST PAIN,COUGH ED Provider: Piotr Hoffman Discharge Problem: COPD (chronic obstructive pulmonary disease) Patient Disposition: Being Evaluated by Hospitalist Forms Stand Alone Forms: My [facility] Prescriptions Prescriptions: No Action amlodipine 10 mg tablet 10 mg PO QAM albuterol sulfate 90 mcg/actuation HFA aerosol inhaler 2 puff INHALATION Q6H PRN (Reason: Cough) furosemide 40 mg Tablet 40 mg PO QAM Qty: 30 0RF methadone 10 mg/5 mL Solution 100 mg PO QAM Rx Instructions: IF NEED TO VERIFY--Marc @ [facility] @ [phone]. nicotine 7 mg/24 hr Patch 24 Hour 1 patch TRANSDERMAL DAILY pantoprazole 40 mg tablet,delayed release (DR/EC) 40 mg PO QAM folic acid 1 mg tablet 1 mg PO QAM metoprolol succinate 25 mg tablet extended release 24 hr 12.5 mg PO AMHS Anoro Ellipta 62.5-25 mcg/actuation blister with device 1 inh INHALATION QAM Eliquis 5 mg tablet 5 mg PO [facility]HS hydroxyzine HCl 25 mg tablet 12.5 mg PO Q6H PRN (Reason: anxiety) Qty: 30 0RF prednisone 5 mg tablet See Rx Instructions .ROUTE .COMPLEX Qty: 108 0RF Rx Instructions: prednisone 5 mg: take 8 tablets (40 mg) For 3 days; 7 tablets (35 mg) for 3 days; then decrease by 1 tablet every three days until finished potassium chloride 10 mEq tablet,ER particles/crystals 20 meq PO AMHS magnesium oxide 400 mg (241.3 mg magnesium) tablet 800 mg PO HS Referrals Referrals: Roseann Plummer MD [Primary Care Provider] - Discharge Problem: COPD (chronic obstructive pulmonary disease) Qualifiers: COPD type: unspecified COPD Qualified Code(s): J44.9 - Chronic obstructive pulmonary disease, unspecified
[2024-11-11] MEDS: LORazepam 1 MG TAB SL STA (02:09)
--- NOTE | 2024-11-11 02:54 | History & Physical Report ---
Date of Service November 11, 2024 Assessment & Plan (1) COPD exacerbation: Plan: 59-year-old female with past medical history significant for hypokalemia, COPD, on home oxygen 4 L, history of pulmonary emboli, hypertension, GERD, history of KARLA, lumbar degenerative disease, osteoarthritis, restless leg syndrome, history of anemia, methadone maintenance therapy, substance abuse in remission, ongoing tobacco abuse, depression, ongoing alcoholism comes in because of shortness of breath and cough. Last couple of days getting more short of breath and cough with phlegm. Denies fevers. Had lower rib cage pain earlier but that resolved now. Attributes the rib cage pain to the cough. No headache. No runny nose or sore throat. No nausea. No abdominal pain. Normal bowel and bladder movements. Hemodynamics are okay. Says she is currently smoking 2 to 3 c igarettes daily. And drinks alcohol 3 mixed drinks daily. Patient was admitted in August 2024 with acute on chronic hypoxic respiratory failure, COPD exacerbation, influenza A infection and at the time CT chest noted early pneumonia recommended follow-up CT chest in 3 to 6 months. Acute COPD exacerbation History of COPD and on home oxygen 4 L Chest x-ray okay COVID, influenza A and B, RSV negative Troponin negative. VBG okay Will check procalcitonin level Received IV steroid and nebs in the ER We will continue with IV Solu-Medrol 40 mg 3 times daily, nebs [id number] and as needed and continue home inhalers Close monitor Alcoholism Drinks 3 mixed drinks daily Thinks she will go through withdrawal IV thiamine 1 dose P.o. thiamine, folic acid and multivitamins Alcohol withdrawal protocol with gabapentin and IV Ativan as needed Close monitor Chest pain Rib cage pain most from cough EKG and troponin negative Will follow a.m. troponin History of pulmonary emboli On Eliquis Hypertension On amlodipine, metoprolol succinate and Lasix We will monitor History of substance abuse in remission On methadone maintenance therapy GERD Protonix DVT prophylaxis On Eliquis Disposition Med/telemetry Full code. History of Present Illness Chief Complaint: Shortness of breath and cough Primary Care Provider: Roseann Plummer MD 59-year-old female with past medical history significant for hypokalemia, COPD, on home oxygen 4 L, history of pulmonary emboli, hypertension, GERD, history of KARLA, lumbar degenerative disease, osteoarthritis, restless leg syndrome, history of anemia, methadone maintenance therapy, substance abuse in remission, ongoing tobacco abuse, depression, ongoing alcoholism comes in because of shortness of breath and cough. Last couple of days getting more short of breath and cough with phlegm. Denies fevers. Had lower rib cage pain earlier but that resolved now. Attributes the rib cage pain to the cough. No headache. No runny nose or sore throat. No nausea. No abdominal pain. Normal bowel and bladder movements. Hemodynamics are okay. Says she is currently smoking 2 to 3 cigarettes daily. And drinks alcohol 3 mixed drinks daily. Patient was admitted in August 2024 with acute on chronic hypoxic respiratory failure, COPD exacerbation, influenza A infection and at the time CT chest noted early pneumonia recommended follow-up CT chest in 3 to 6 months. Past medical history. As mentioned above Past surgical history. Right total hip replacement. Social history. . Used to smoke 2 packs a day for 40 years. Currently smoking half pack a day. Patient says she is drinking 3 shots of mixed drink daily used to drink 6 shots in the past. History of heroin abuse currently on methadone. Family history. Mother had adenocarcinoma brain tumor. Sister had heart disease. Brother has hypertension. Allergies Allergy/AdvReac Type Severity Reaction Status Date / Time fluticasone furoate AdvReac Intermediate INTENSE Verified 11/10/24 21:57 [From Trelegy Ellipta] HEADACHES umeclidinium AdvReac Intermediate INTENSE Verified 11/10/24 21:57 [From Trelegy Ellipta] HEADACHES vilanterol AdvReac Intermediate INTENSE Verified 11/10/24 21:57 [From Trelegy Ellipta] HEADACHES buspirone [From BuSpar] AdvReac Mild Rash Verified 11/10/24 21:57 sertraline AdvReac Mild NAUSEATED Verified 11/10/24 21:57 olive oil AdvReac Unknown reacts Verified 11/10/24 21:57 with methadone Home Medications Medication Instructions Recorded Confirmed Type amlodipine 10 mg tablet 10 mg PO QAM 05/16/22 11/10/24 History albuterol sulfate 90 mcg/actuation 2 puff inhalation Q6H PRN Cough 09/12/22 11/10/24 History aerosol inhaler furosemide 40 mg tablet 40 mg PO QAM #30 tabs 09/21/22 11/10/24 Rx methadone 10 mg/5 mL oral solution 100 mg PO QAM 06/25/23 11/10/24 History nicotine 7 mg/24 hr daily 1 patch transdermal DAILY 06/25/23 11/10/24 History transdermal patch pantoprazole 40 mg tablet,delayed 40 mg PO QAM 06/25/23 11/10/24 History release potassium chloride 10 mEq 20 meq PO AMHS 11/20/23 11/10/24 History tablet,extended release(part/cryst) folic acid 1 mg tablet 1 mg PO QAM 01/21/24 11/10/24 History magnesium oxide 400 mg (241.3 mg 800 mg PO HS 05/09/24 11/10/24 History magnesium) tablet apixaban 5 mg tablet (Eliquis) 5 mg PO AMHS 08/31/24 11/10/24 History metoprolol succinate 25 mg 12.5 mg PO AMHS 08/31/24 11/10/24 History tablet,extended release 24 hr umeclidinium 62.5 mcg-vilanterol 1 inh inhalation QA 08/31/24 11/10/24 History 25 mcg/actuation powdr for inhalation (Anoro Ellipta) hydroxyzine HCl 25 mg tablet 12.5 mg (1/2 x 25 mg) PO Q6H PRN 09/07/24 11/10/24 Rx anxiety #30 tabs prednisone 5 mg tablet See Rx Instructions PO .COMPLEX 09/07/24 11/10/24 Rx #108 tabs Past Med/Surg History Problem List (Updated 11/11/24 @ 02:51 by Alo Jason MD) COPD exacerbation Viral pneumonia Positive blood culture Pneumonia due to hemophilus influenzae Opioid use disorder, severe, in sustained remission Cluster B personality disorder Alcohol use disorder, moderate, dependence MDD (major depressive disorder), recurrent episode, moderate Alcoholism /alcohol abuse Acute on chronic respiratory failure with hypoxemia Acute exacerbation of chronic obstructive pulmonary disease (Acute) Symptomatic cholelithiasis Edema, peripheral (Acute) 11/20/23 Hypomagnesemia (Acute) 11/20/23 Hypokalemia (Acute) 11/20/23 Frequent PVCs (Acute) Bradycardia (Acute) Acute on chronic respiratory failure with hypoxia and hypercapnia 08/23/23 History of alcohol abuse Tobacco use Sepsis due to pneumonia 08/23/23 Parainfluenza infection (Acute) 08/23/23 Pneumonia (Acute) 08/23/23 Encounter for pre-operative examination (~09/02/24) Pulmonary embolism dx 08/2022 - unknown the cause. treated with anticoagulants. Pulmonary hypertension 09/13/22 Hypercapnic respiratory failure 09/13/22 Muscle cramp (Acute) 09/13/22 PAC (premature atrial contraction) (Acute) Frequent PVCs (Acute) Acute hypoxemic respiratory failure (Acute) 09/13/22 Methadone maintenance therapy patient GERD (gastroesophageal reflux disease) HTN (hypertension) COPD (chronic obstructive pulmonary disease) (Acute) Medical History Edema of both lower extremities Difficult intravenous access Pulmonary hypertension Follow with [facility] Hx of pulmonary embolus dx 08/2022 - unknown the cause. treated with anticoagulants. 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 Down to three drinks a week GERD (gastroesophageal reflux disease) History of aspiration pneumonia 08/2022 from vomiting -- reports she "passed out and vomited while she was incoherent" per PAT RN COPD (chronic obstructive pulmonary disease) well controlled currently, uses 4lpm oxygen via n/c continuously Hx of sinus bradycardia episode when vitamin levels were low. no current issue History of endocarditis --- r/t IV drug use. S/P transesophageal echocardiogram (RENATA) Lung nodule monitoring Constipation Anxiety On home oxygen therapy 4lpm via n/c daily Recurrent major depressive disorder Surgical History S/P right cataract extraction Status post total hip replacement, right Family History Other Family history non-contributory No family history of adverse response to anesthesia Social History Smoking Status: Current every day smoker Tobacco Type: Cigarettes Cigarettes Per Day: 3; Second Hand Exposure: No; Do You Dip or Chew Tobacco: No; Hx Alcohol Use: Yes Alcohol type: other Hx Substance Use: Yes Last Used Substance: Days (ago) Last Used Substance Other:: remote hx of cocaine and heroin use (2009); med marijuana ~3-4x/week now Substance Use Type Other:: methadone, history of drug use Preferred Language: [place] Communication Ability: Effective [employer] Product Analyst Required: No Beliefs That Will Affect Care: None Current Living Situation: Alone Feels Safe at Home: Yes Assistive Devices: Oxygen - Continuous Review of Systems Review of Systems: All systems reviewed & are unremarkable except as noted in HPI & below Physical Exam Physical Exam: General- Not in distress Head- atraumatic Eyes- PERRL. ENT- oropharynx clear Neck- supple, no JVD. Lungs- clear to auscultation mild expiratory wheezing present, no crackles Heart- regular rate and rhythm; no murmur, no gallop. Abdomen- normal bowel sounds, soft, nontender, no distension Extremities- no pretibial edema, no erythema seen Neuro- alert, oriented PERRL, no facial palsy; no dysarthria; moves extremities Results & Data Results & Data Vital Signs (Past 12 Hours) Vital Signs Temp Pulse Pulse Resp BP BP Pulse Ox 11/11/24 02:11 85 11/10/24 22:05 70 11/10/24 21:07 74 16 131/78 93 11/10/24 19:20 73 23 94 11/10/24 18:53 36.9 C 79 22 154/71 H 93 O2 Del Method O2 Flow Rate 11/11/24 02:11 11/10/24 22:05 11/10/24 21:07 Nasal Cannula 4 11/10/24 19:20 Nasal Cannula 4 11/10/24 18:53 Room Air Diagnostic Findings Laboratory Results WBC 12.53 K/ul (4.8-10.8) H 11/10/24 20:32 RBC 3.89 M/uL (4.20-5.40) L 11/10/24 20:32 Hgb 11.7 g/dl (12.0-16.0) L 11/10/24 20:32 Hct 36.5 % (37.0-47.0) L 11/10/24 20:32 MCV 93.8 fL (80.0-100.0) 11/10/24 20:32 MCH 30.1 pg (25.0-34.0) 11/10/24 20:32 MCHC 32.1 g/dL (32.0-36.0) 11/10/24: RDW Std Deviation 46.3 fL (36.4-46.3) 11/10/24: RDW Coeff of Cee 13.6 % (11.5-14.5) 11/10/24: Plt Count 187 K/uL (130-400) 11/10/24: MPV 9.8 fL (9.4-12.4) 11/10/24: Immature Gran % (Auto) 2.7 % 11/10/24: Neut % (Auto) 79.8 % 11/10/24: Lymph % (Auto) 10.5 % 11/10/24: [place] % (Auto) 5.4 % 11/10/24: Eos % (Auto) 1.3 % 11/10/24: Baso % (Auto) 0.3 % 11/10/24: Neut # (Auto) 9.99 K/uL (1.40-6.50) H 11/10/24: Lymph # (Auto) 1.32 K/uL (1.20-3.40) 11/10/24: [place] # (Auto) 0.68 K/uL (0.11-0.59) H 11/10/24: Eos # (Auto) 0.16 K/uL (0.00-0.50) 11/10/24: Baso # (Auto) 0.04 K/uL (0.00-0.20) 11/10/24: Immature Gran # (Auto) 0.34 K/uL (0.01-0.20) H 11/10/24: PT 10.4 Seconds (9.0-12.0) 11/10/24: INR 1.0 (0.9-1.1) 11/10/24: APTT 28 Seconds (21-31) 11/10/24: PTT Ratio 1.0 11/10/24: VBG pH 7.45 (7.36-7.41) H 11/10/24: VBG pCO2 55 mmHg (38-50) H 11/10/24: VBG pO2 42 mmHg 11/10/24: VBG HCO3 38 mmol/L 11/10/24 20: VBG O2 Saturation 73.5 % 11/10/24: VBG Base Excess 11.9 mEq/L 11/10/24: Sodium 137 mmol/L (136-145) 11/10/24: Potassium 4.0 mmol/L (3.5-5.1) 11/10/24: Chloride 95 mmol/L (98-107) L 11/10/24: Carbon Dioxide 37 mmol/L (21-32) H 11/10/24: Anion Gap 5 (3-11) 11/10/24: BUN 9 mg/dl (6-23) 11/10/24: Creatinine 0.93 mg/dl (0.6-1.2) 11/10/24: Est Cr Clr Drug Dosing 83.1 ml/min 11/10/24: eGFR 71.69 11/10/24: BUN/Creatinine Ratio 9.7 (10-20) L 11/10/24: Glucose 92 mg/dl (70-99(Fasting)) 11/10/24: Calcium 9.1 mg/dl (8.6-10.3) 11/10/24: Total Bilirubin 0.2 mg/dl (0.2-1.0) 11/10/24: AST 42 U/L (13-39) H 11/10/24 20: ALT 50 U/L (7-52) 11/10/24: Alkaline Phosphatase 107 U/L (34-104) H 11/10/24: Troponin I High Sens 4.6 pg/ml (0-14) 11/10/24: Total Protein 7.0 gm/dl (6.0-8.3) 11/10/24: Albumin 3.8 gm/dl (3.4-5.0) 11/10/24: Globulin 3.2 gm/dl (2.5-4.0) 11/10/24 20: Albumin/Globulin Ratio 1.2 (0.9-2) 11/10/24 20: SARS-CoV-2 (PCR) NEGATIVE (Negative) 11/10/24 19:00 Influenza Type A (PCR) Negative (Neg) 11/10/24 19:00 Influenza Type B (PCR) Negative (Neg) 11/10/24 19:00 RSV (RT-PCR) Negative (Neg) 11/10/24 19:00 Impressions Chest X-Ray 11/10/24 18:56 Chest radiograph, one view History: Chest pain Comparison: 08/30/2024 Findings: Single AP view of the chest performed. No focal consolidation or pleural effusion. Scattered thin, irregular opacity at the lung bases again noted, which may represent scar and/or sequelae of emphysema. No pneumothorax. The cardiomediastinal silhouette is within normal limits. Normal pulmonary vascularity. No evidence for lymphadenopathy. No visualized bony or soft tissue abnormality. Impression: No acute process. Similar chronic findings, as above. Electronically signed by Fabian Cee 11-10-2024 7:[address] 11/10/24 19:46 Exam(s): CT HEAD Without Contrast EXAM: CT Head Without Intravenous Contrast CLINICAL HISTORY: Reason for exam: guerra. TECHNIQUE: Axial computed tomography images of the head/brain without intravenous contrast. CTDI is 38.169 mGy and DLP is 546.359 mGy-cm. Automated exposure control was utilized for the study. A dose lowering technique was utilized adhering to the principles of ALARA. COMPARISON: Head CT 05/16/2022 FINDINGS: Artifacts: Images are slightly degraded by motion artifact. Brain: No intracranial hemorrhage, mass-effect, or cerebral edema. Atrophy and chronic microvascular ischemic changes. Ventricles: Unremarkable. Bones/joints: Unremarkable. No fracture. Soft tissues: Unremarkable. Sinuses: No acute sinusitis. Mastoid air cells: Unremarkable as visualized. IMPRESSION: 1. No acute intracranial abnormality. Electronically signed by: Ryne William MD 11/10/24 21:54 PM ECG Additional Comments: ECG normal sinus rhythm rate of 79. No significant changes found. Code Status & VTE Plan VTE Prophylaxis Plan VTE Prophylaxis will be ordered: Yes
[2024-11-11] MEDS: THIAMINE HCL 100 MG in SYRINGE 9 ML IV STA (03:14)
[2024-11-11] MEDS ORDERED: ALBUTEROL HFA 8 GM INHALER INH PRN (03:18)
[2024-11-11] MEDS ORDERED: LORazepam 2 MG/1 ML VIAL IV PRN (03:18)
[2024-11-11] MEDS ORDERED: POLYETHYLENE (MIRALAX) 17 GM PACK PO PRN (03:18)
[2024-11-11] MEDS ORDERED: Ativan IV Alcohol Withdrawal--Active Protocol IV PRN (03:18)
[2024-11-11] MEDS ORDERED: NITROGLYCERIN SL 0.4 MG/TAB TAB SL PRN (03:18)
[2024-11-11] MEDS: GABAPENTIN 600 MG TAB PO ONE (03:47)
[2024-11-11] MEDS: GABAPENTIN 1200MG ALCOHOL WITHDRAWAL LOAD PO STA (03:51)
[2024-11-11] MEDS ORDERED: ALBUT/IPRATROP 3MG/0.5MG NEB 3 ML VIAL NEB PRN (04:27)
[2024-11-11 06:43] LABS: Folate (Folic Acid),Ser orPlas > 22.30 ng/ml (>5.38)
[2024-11-11 06:44] LABS: Vitamin B12 414 pg/ml (180-914)
[2024-11-11] MEDS: ALBUT/IPRATROP 3MG/0.5MG NEB 3 ML VIAL NEB SCH (06:53)
[2024-11-11] MEDS: LORazepam 2 MG/1 ML VIAL IV PRN (07:52)
--- NOTE | 2024-11-11 08:17 | Electrocardiogram Report ---
Test Reason : Blood Pressure : */* mmHG Vent. Rate : 79 BPM Atrial Rate : 79 BPM P-R Int : 114 ms QRS Dur : 78 ms QT Int : 382 ms P-R-T Axes : 53 68 75 degrees QTcB Int : 438 ms Normal sinus rhythm Normal ECG When compared with ECG of 07-Sep-2024 12:03, No significant change was found Confirmed by Fabian Wayne ([id number]) on 11/11/2024 8:17:07 AM Referred By: REFERRED SELF Confirmed By: Fabian Wayne
--- OUTSIDE RECORDS SUMMARY | 2024-11-11 08:35 | External Medical Summary | Summary of Care ---
Author Name Unknown Organization [facility] Address [address] [place] [address] Phone [phone] Care Team Providers Care Risk Prevention Engineer Name Role Phone Roseann Plummer MD Primary Care Provider Reason for Visit * Reason Onset Date Comments Referral 11/04/2024 EPIC 178 Referra l Encounter Details Date Type Department Care Team (Late st Contact Info) Description 11/04/2024 Telephone Care Coordination and Integration [address], [place] [id number] Lindsay Rey, BS [address], [place] [id number] Referral (EPIC 178 Referral) Allergies Active Allergy Reactions Criticality Noted Date Comments Buspirone Rash 11/01/2022 documented as of this encounter (statuses as of 11/10/2024) Medications methADONE 10 MG Tablet Take 1 Tablet by mouth once. 100mg daily Active Bisacodyl 5 MG Oral Tablet Delayed Release (Dulcolax) Take 1 Tablet by mouth daily as needed for Constipation. 30 Tablet 03/08/20 23 Active oxygen IN GAS Use 3 L/min(Oxygen) [...] daily. 28 Patch 5 12/16/19 24 Active Metoprolol Succinate ER 25 MG [...] morning.. 90 Tablet 1 02/13/20 24 Active Ferrous Gluconate 324 (38 Fe) MG Oral Tablet Take 1 Tablet by mouth daily with breakfast. 90 Tablet 1 05/11/20 24 Active Albuterol Sulfate HFA 108 (90 Base) MCG/ACT Inhalation Aerosol SolutionIndication s:Cough INHALE 2 PUFFS BY MOUTH EVERY 6 HOURS NEEDED FOR COUGH 18 g 5 05/08/20 24 Active Eliquis 5 MG Oral Tablet (Apixaban) TAKE ONE TABLET BY MOUTH EVERY MORNING AND TAKE ONE TABLET BY MOUTH BEFORE BEDTIME 180 Tablet 1 05/18/20 24 Active Potassium Chloride ER 20 MEQ Oral Tablet Extended ReleaseIndications :Hypokalemia Take 1 Tablet by mouth 2 times a day. 180 Tablet 2 06/09/20 24 Active Magnesium Oxide 400 MG Oral TabletIndications: Hypomagnesemia Take 2 Tablets by mouth at bedtime. 180 Tablet 3 06/10/20 24 Active Nicotine 7 MG/24HR Transdermal Patch 24 Hour (Nicoderm CQ)Indications:Tob acco use disorder APPLY 1 PATCH TOPICALLY DAILY 28 Patch 5 07/03/20 24 Active Folic Acid 1 MG Oral Tablet Take 1 Tablet by mouth in the morning. 30 Tablet 5 07/03/20 24 Active hydrOXYzine HCl 25 MG Oral Tablet Take 1 Tablet by mouth 3 times a day as needed. Active Lidocaine 4 % External Patch (Aspercreme)Indica tions:Degeneration of intervertebral disc of lumbar region, unspecified whether pain present,Chest pain, unspecified type Place 1 Patch over 12 hours topically on the skin daily. Apply to anterior chest and low back 60 Patch 5 09/11/19 25 Active Budesonide 0.25 MG/2ML Inhalation Suspension (Pulmicort) Inhale 0.25mg (1 vial) via nebulizer in the morning. 60 mL 12 5 2:38 PM EDT 10/29/19 25 Active Umeclidinium-Vilan terol 62.5-25 MCG/ACT Inhalation Aerosol Powder Breath Activated (ANORO ellipta) Inhale 1 Puff by mouth in the morning. 60 Each 12 5 2:38 PM EDT 10/29/19 25 Active Additional Information Patient not taking.Reported on 11/04/2024 Thiamine HCl 100 MG Oral Tablet (vitamin B-1) Take 1 Tablet by mouth in the morning. 30 Tablet 3 5 2:38 PM EDT 10/29/19 25 Active Sertraline HCl 50 MG Oral Tablet (Zoloft) Take 2 Tablets by mouth in the morning. 60 Tablet 3 5 2:38 PM EDT 10/29/19 25 Active Additional Information Patient not taking.Reported on 11/04/2024 Famotidine 20 MG Oral Tablet (Pepcid)Indication s:Other acute gastritis without hemorrhage Take 1 Tablet by mouth in the morning and 1 Tablet before bedtime. 60 Tablet 5 11/05/19 25 Active Pantoprazole Sodium 40 MG Oral Tablet Delayed Release (Protonix)Indicati ons:Other acute gastritis without hemorrhage Take 1 Tablet by mouth 2 times a day. 180 Tablet 1 11/05/19 25 Active Clotrimazole 10 MG Mouth/Throat Bernardino (Mycelex Bernardino)Indications :Thrush Take 1 Lozenge by mouth 5 times a day for 14 days. Allow tablet to slowly dissolve in your mouth 70 Bernardino 1 11/05/19 25 025 Active diazePAM 5 MG Oral Tablet (Valium)Indication s:Situational anxiety Take 1 tab by mouth 45-[address] scan. Do not mix with alcohol. Do not drive. 2 Tablet 08/18/19 25 025 Discontinu ed(Refill) predniSONE 10 MG Oral Tablet (Deltasone) Take 3 Tablets by mouth daily for 2 days, THEN 2 Tablets daily for 3 days, THEN 1 Tablet daily for 3 days, THEN 0.5 (one-half) tablet daily for 3 days. 17 Tablet 5 2:38 PM EDT 10/29/19 25 025 Hospital, Clinic, or Other Facility Administered Medication Ordered Dose Route Frequency Start Date End Date Status Albuterol Sulfate (Proventil) (2.5 MG/3ML) 0.083% inhalation solution 2.5 mgIndications:COPD, mild (HCC) 2.5 mg NEBULIZER PRN 10/11/2022 Active documented as of this encounter (statuses as of 11/10/2024) Active Problems Problem Noted Date Diagnosed Date Alcohol use disorder 10/23/2024 Chronic anticoagulation 10/23/2024 Pulmonary hypertension due to left heart disease 09/11/2024 Elevated hemoglobin 09/11/2024 Hypokalemia 09/11/2024 Opioid dependence in remission 09/11/2024 Major depressive disorder, recurrent, moderate 0 09/11/2024 Cyst of kidney, acquired 12/16/2023 Restless legs [...] as of this encounter (statuses as of 11/10/2024) Resolved Problems Problem Noted Date Diagnosed Date Resolved Date Acute on chronic respiratory failure with hypoxia and hypercapnia 10/23/2024 10/26/2024 Acute on chronic heart failu re with preserved ejection fraction 10/23/2024 10/26/2024 Chronic kidney disease, stage 3a 10/08/2022 03/01/2023 Overview: Per CKD protocol Substance abuse 05/25/2022 03/01/2023 Thrombocytopenia 05/25/2022 09/06/2023 Food insecurity 05/07/2022 05/14/2024 Overview: Per [facility] Protocol Food insecurity 03/06/2021 01/11/2022 Overview: Per [facility] Protocol documented as of this encounter (statuses as of 11/10/2024) Immunizations Name Administration Dates Next Due Pneumococcal Polysaccharide PPV23 (Pneumovax) Seasonal Influenza Virus Vac cine, Unspecified Formulation 04/28/2020 Seasonal Influenza, PF, 6 M & above, IM , (FluLaval or Fluzone) 04/28/2020 TDAP (age 10 and older)(Boostrix) 04/28/2020 documented as of this encounter Social History Tobacco Use Types Packs/Day Years Used Date Smoking Tobacco: Every Day Cigarettes 2 42.1 Started: 1981; Last attempted to quit: 08/23/2023 Vaporizer Started: 07/17 22 Smokeless Tobacco: Never Comments:Smoking 3 cpd . 2/2 Alcohol Use Standard Drinks/Week Comments Yes 1 (1 standard drink = 0.6 oz pur e alcohol) 1 nightly PHQ-2 Answer Date Recorded PHQ Adult Total [...] No 05/20/2024 Does the household have a rustlar source of income? (Household - for ages [...] 05/20/2024 Transportation Needs Answer Date Record ed Do you have trouble getting a ride to medical visits or work? (Adult - for ages 18 years and over) Not on file 05/20/2024 Does your family have a hard time getting a ride to doctors visits? (Household - for ages 0-17 years) Not on file 05/20/2024 Has lack of transportation k ept you from medical appointments, meetings, work, or from getting things needed for daily living? Check all that apply. No 05/20/2024 Do you (or your family) have trouble finding or paying for a ride (transportation)? (Household - for ages 0-17 years) Not on file 05/20/2024 Housing Stability Answer Date Recorded Do you currently live in a s helter or have no steady place to sleep at night? No 05/20/2024 Do you think you are at risk of becoming homeless? (Adult - for ages 18 years and over) Not on file 05/20/2024 Does your family worry about paying [...] ages 0-17 years) Not on file 05/20/2024 Food Insecurity Answer Date Recorded Within the past 12 months, y ou worried that your food would run out before you got the money to buy more. Never true 05/20/20 24 Within the past 12 months, t he food you bought just didn't last and you didn't have money to get more. Never true 05/20/2024 Do you need food for this week? No 05/20/2024 Comments No Sex and Gender Information [...] doing errands alone such as visiting a doctor’s office or shopping? (15 years old or [...] encounter Miscellaneous Notes * Telephone Encounter - Delilah Carmona BSW - 11/10/2024 10:37 AM EDT Final attempt contacted member at [phone], member requested she call us back tomorrow morning I provided our callback information, she stated she would contact us back. Sent a MyG with provider list and our callback as well. Closing referral, member can be directed to us M- F 8a to 5p at [phone]. * Telephone Encounter - Roseann Plummer MD - 11/06/2024 3:01 PM EDT FYI, patient is really good at responding to portal messages. * Telephone Encounter - Lindsay Rey BS - 11/05/2024 10:44 AM EDT 2nd outreach: Called [phone] and LVM with [facility] contact info and ref number for call back. 3rd and final attempt for outreach set for 11/10/24. * Telephone Encounter - Lindsay Rey BS - 11/04/2024 12:22 PM EDT Priority: Urgent Referring Provider: Matt Quezada --- Roseann Plummer MD Reason for Referral: Member has active alcohol use disorder and depression is worsening. Is interested in starting a program. Was recently admitted to ED for medical reason. Outcome of Referral: Called [phone] and LVM with [facility] contact info and ref number for call back. If member calls back please offer /[facility] services. Can also connect with [facility] for further assistance. As this is marked urgent 2nd outreach set for 11/05/2024. documented in this encounter Plan of Treatment Upcoming Encounters Date Type Department Care Team (Late st Contact Info) Description 11/12/2024 1:30 PM EDT Office Visit Pulmonary Medicine, [facility] [address] [place] [phone] Huan Branham MD [address] [place] [phone] 11/13/2024 12:30 PM EDT Imaging Radiology [facility] [address] [place] [phone] 11/13/2024 1:30 PM EDT Imaging Radiology [facility] 1st [facility] [address] [place] [phone] 12/16/2024 1:00 PM EDT Nutrition Services Nutrition, [facility] [address] [facility] [place] [address] Zari Bonilla RDN [address] [facility] [place] [address] 12/28/2024 12:30 PM EDT Office Visit Pulmonary Medicine, [facility] [address] [facility] [place] [phone] Huan Branham MD [address] [place] [address] 05/12/2025 10:20 AM EDT Office Visit [facility] [place] [address] Roseann Plummer MD [address] [facility] [place] [address] 07/07/2025 9:00 AM EST Office Visit Gynecology/Obstetrics [facility] [address] [facility] [place] [address] Anahi Anthony CRNP [address] [facility] [place] [address] Health Maintenance Due Date Last Done Comments DISCUSS TOBACCO CESSATION (REFER TO SMARTSET #7988) 1967 Alpha-1 Antitrypsin 1985 Pap Smear 1988 Cervical Cancer Screening 1997 HPV/Co-Test 1997 Cologuard 2012 Colonoscopy 2012 Sigmoidoscopy 2012 Mammogram 02/28/2021 02/29/2020 *ADVANCE DIRECTIVE NOT ON FILE 10/14/2021 Influenza Vaccine (FLU shot) (Season Ended) 2025 04/28/2020, 04/28/2020 Albumin/Creatinine Ratio 04/26/2025 04/26/2022 Depression Monitoring 05/20/2025 05/20/2024 Colorectal Cancer Screening 05/26/2025 Fecal Occult Blood Test 05/26/2025 05/26/20 24, 05/26/2024, 04/25/2023, Additional history exists GFR 10/26/2025 10/26/2024, 09/28, 10/24/2024, Additional history exists O2 ASSESSMENT COMPLETED IN PAST YEAR FOR COPD 11/04/2025 11/04/2024 Lipid Panel 11/25/2025 11/25/2020, 02/29/2020 Diabetes Screening 10/27/2027 10/26/2024, 0 10/25/2024, 10/24/2024, Additional history exists DTap/Tdap Vaccines (2 - Td or Tdap) 04/28/2030 04/28/2020 COVID-19 Vaccine Discontinued HPV (Gardasil) Vaccine Aged Out No lo nger eligible based on patient's age to complete this topic MENINGOCOCCAL (MENACTRA/MENVEO) Aged Out No longer eligible based on patient's age to complete this topic Meningitis B Vaccine (Bexsero/Trumemba) Aged Out No longer eligible based on patient's age to complete this topic documented as of this encounter Medical Devices Implanted Type Area Feed Preparation Operator Device Identifier Shelf Expiration Date Model / Serial / Lot Shell Acet Trident Ii 50mm - [id number] Implanted:Qty: 1 on 12/05/2020 by Rodolfo Park DO at OR [facility] Right: Hip KANDICE : ORTHOPAEDICS 09/04/2024 702-04-50D / / [id number] Trident Acetabular X3 0 36 D - [id number] Implanted:Qty: 1 on 12/05/2020 by Rodolfo Park DO at OR [facility] Right: Hip KANDICE : ORTHOPAEDICS 09/14/2025 723-00-36D / / [id number] Hip Hd Perry Hummel 36/ 25 - [id number] Implanted:Qty: 1 on 12/05/2020 by Rodolfo Park DO at OR [facility] Right: Hip KANDICE : ORTHOPAEDICS 10/03/2025 6570-0-436 / / [id number] Accolade Ii 127 Deg Sz 4 - [id number] Implanted:Qty: 1 on 12/05/2020 by Rodolfo Park, DO at OR [facility] Right: Hip KANDICE : ORTHOPAEDICS 11/07/2025 [id number] / / [id number] documented as of this encounter Advance Directives * Full Code (Latest Code Status on File) Date Activated Date Inactivated Comments 10/23/2024 2:04 AM 10/28/2024 6:47 PM This order re flects the patients wishes and were consensually agreed upon. Question Answer Comments Discussion of Advance Directives occurred with: Patient * Full Code Date Activated Date Inactivated Comments 12/05/2020 1:45 PM 12/06/2020 4:22 PM This order r eflects the patients wishes and were consensually agreed upon. Question Answer Comments Discussion of Advance Directives occurred with: Patient Does the patient have a Living Will? Yes, not cu rrently available Does the patient have Health Care Power of Pulling Unit Operator? Yes, not currently available Care Teams Risk Prevention Engineer Relationship Specialty Start Date End Date Roseann Plummer MD [address] [place] [phone] PCP - General Internal Medicine 11/05/22 documented as of this encounter
--- OUTSIDE RECORDS SUMMARY | 2024-11-11 08:36 | External Medical Summary | Summary of Care ---
Author Name Unknown Organization [facility] Address [address] [place] [address] Phone [phone] Care Team Providers Care Oral Surgery Assistant Name Role Phone Moi Plummer MD Primary Care Provider Reason for Visit * Reason Onset Date Comments Medication Refill 11/06/2024 Encounter Details Date Type Department Care Team ([facility] st Contact Info) Description 11/06/2024 Refill Family Practice [facility] [address] [place] [phone] Moi Plummer MD [address] [place] [address] Situational anxiety Allergies Active Allergy Reactions Criticality Noted Date Comments Buspirone Rash 11/01/2022 documented as of this encounter (statuses as of 11/06/2024) Medications methADONE 10 MG Tablet Take 1 [...] 5 2:38 PM EDT 10/29/19 25 Active predniSONE 10 MG Oral Tablet (Deltasone) Take 3 Tablets by mouth daily for 2 days, THEN 2 Tablets daily for 3 days, THEN 1 Tablet daily for 3 days, THEN 0.5 (one-half) tablet daily for 3 days. 17 Tablet 5 2:38 PM EDT 10/29/19 25 025 Active Sertraline HCl 50 MG Oral Tablet [...] with alcohol. Do not drive. 2 Tablet 11/07/19 25 Active diazePAM 5 MG Oral Tablet (Valium)Indication s:Situational anxiety Take 1 tab by mouth 45-[address] scan. Do not mix with alcohol. Do not drive. 2 Tablet 08/18/19 25 025 Discontin ued(Refil l) Hospital, Clinic, or Other Facility Administered Medication Ordered Dose Route Frequency Start Date End Date Status Albuterol Sulfate (Proventil) (2.5 MG/3ML) 0.083% inhalation solution 2.5 mgIndications:COPD, mild (HCC) 2.5 mg NEBULIZER PRN 10/11/2022 Active documented as of this encounter (statuses as of 11/06/2024) Active Problems Problem Noted Date Diagnosed Date [...] as of this encounter (statuses as of 11/06/2024) Resolved Problems Problem Noted Date Diagnosed Date [...] as of this encounter (statuses as of 11/06/2024) Immunizations Name Administration Dates Next Due Pneumococcal [...] Telephone Encounter - Moi Plummer MD - 11/06/2024 3:04 PM EDT Signed Prescriptions: Disp Refills diazePAM 5 MG Oral Tablet (Valium) 2 Tabl*0 Sig: Take 1 tab by mouth 45-[address] scan[address] Do not mix with alcohol. Do not drive.Authorizing Provider: MOI PLUMMER * Telephone Encounter - Moi Plummer MD - 11/06/2024 3:00 PM EDT I have reviewed the patient's controlled substance dispensing history in the Prescription Drug Monitoring Program in compliance with the [facility] regulations before prescribing a controlled substance. * Telephone Encounter - Rowan Baum [facility] - 11/06/2024 2:22 PM EDT Pending Prescriptions: Disp Refills diazePAM 5 MG Oral Tablet (Valium) 2 Tabl*0 Sig: Take 1 tab by mouth 45-[address] scan. Do not mix with alcohol. Do not drive. * Telephone Encounter - Rowan Baum [facility] - 11/06/2024 2:22 PM EDT I have reviewed the patient’s controlled substance dispensing history in the Prescription Drug Monitoring Program in compliance with the [place] regulations before prescribing a controlled substance. PDMP checked on 11/06/2024. Pending Prescriptions: Disp Refills diazePAM 5 MG Oral Tablet (Valium) 2 Tabl*0 Sig: Take 1 tab by mouth 45-[address] scan[address] Do not mix with alcohol. Do not drive. Last Visit: 11/04/2024 (in office), Visit date not found (telemedicine) Next Visit: 05/12/2025 Date medication was last filled: 08/18/24 Date medication is due for refill: 08/20/24 Pharmacy: [facility] [address]- [place] Is this request for a controlled substance? Yes and Urine Drug Screen Not completed Toxicology results: No results found. However, due to the size of the patient record, not all encounters were searched.Please check Results Review for a complete set of results. Please approve if appropriate. Thank you, Nils VitalD, [facility] Clinical Pharmacist [facility] ([facility]) 11/06/24 2:22 PM [phone] documented in this encounter Plan of Treatment Upcoming Encounters Date Type Department Care Team (Late st Contact Info) Description 11/11/2024 12:30 PM EDT Office Visit Pulmonary Medicine, [facility] [address] [place] [phone] Huan Branham MD [address] [place] [address] 11/13/2024 12:30 PM EDT Imaging Radiology [facility] [place] [phone] 11/13/2024 1:30 PM EDT Imaging Radiology [facility] [address] [place] [phone] 12/16/2024 1:00 PM EDT Nutrition Services Nutrition, [facility] [address] [place] [address] Zari Bonilla, RDN [address] [place] [address] 12/28/2024 12:30 PM EDT Office Visit Pulmonary Medicine, [facility] [address] [place] [phone] Huan Branham MD [address] [place] [address] 05/12/2025 10:20 AM EDT Office Visit Family Practice [facility] [address] [place] [address] Moi Plummer MD [address] [place] [address] 07/07/2025 9:00 AM EST Office Visit Gynecology/Obstetrics [facility] [address] [place] [address] Anahi Anthony CRNP [address] [place] [address] Health Maintenance Due Date Last Done Comments DISCUSS TOBACCO CESSATION (REFER TO SMARTSET #6910) 1967 Alpha-1 Antitrypsin 1985 Pap Smear 1988 [...] this encounter Medical Devices Implanted Type Area Dredge Captain Device Identifier Shelf Expiration Date Model / Serial / Lot Shell Acet Trident Ii 50mm - [id number] Implanted:Qty: 1 on 12/05/2020 by Rodolfo Park DO at OR [facility] Right: Hip KANDICE : ORTHOPAEDICS 09/04/2024 702-04-50D / / [id number] Trident Acetabular X3 0 36 D - [id number] Implanted:Qty: 1 on 12/05/2020 by Rodolfo Park DO at OR [facility] Right: Hip KANDICE : ORTHOPAEDICS 09/14/2025 723-00-36D / / [id number] Hip Hd Nk Alumina Md Hummel 36/ 25 - [id number] Implanted:Qty: 1 on 12/05/2020 by Rodolfo Park DO at OR [facility] Right: Hip KANDICE : ORTHOPAEDICS 10/03/2025 6570-0-436 / / [id number] Accolade Ii 127 Deg Sz 4 - [id number] Implanted:Qty: 1 on 12/05/2020 by Rodolfo Park DO at OR [facility] Right: Hip KANDICE : ORTHOPAEDICS 11/07/2025 [id number] / / [id number] documented as of this encounter Visit Diagnoses [...] the patient have Health Care Power of Colorectal Surgeon? Yes, not currently available Care Teams Oral Surgery Assistant Relationship Specialty Start Date End Date Moi Plummer MD [address] [place] [phone] PCP - General Internal Medicine 11/05/22 documented as of this encounter
--- OUTSIDE RECORDS SUMMARY | 2024-11-11 08:36 | External Medical Summary | Summary of Care ---
Author Name Unknown Organization [facility] Address [address] [place] [address] Phone [phone] Care Team Providers Care Wood Science Professor Name Role Phone Roseann Plummer MD Primary Care Provider Reason for Referral * Social Care (Within 3 days (urgent)) - Authorized Specialty Diagnoses / Procedures Referred By Nasir serrano Referred To Contact Clinical Education Assistant Diagnoses Alcohol use disorder Major depressive disorder, recurrent, moderate (HCC) Opioid dependence, uncomplicated (HCC) Methadone maintenance therapy patient (HCC) Roseann Plummer MD [address] [place] [address] Phone: tel: fax: Referral ID Status Reason Start Date Expiration Date Visits Requested Visits Authorized [id number] Authorized Specialty Services Required 11/04/[phone] Question Answer Referral Priority Within 3 days (urgent) Where should this appointment be scheduled? [facility] Role Behavioral Health Clinical Education AssistantSock [facility] Clinical Education Assistant Referral Reason Active Substance Abuse Comments Is patient being transitioned from [facility] to Complex Case Management? No Active alcohol use disorder. On methadone 100mg daily. Depression worsening. Interested in a program. Reason for Visit * Reason Onset Date Comments Hospital Follow-Up Sinus scabs, dryness, but also nose is runny badly, congestion, eyes watering. Hospital Follow-Up 11/04/2024 Encounter Details Date Type Department Care Team (Latest Contact Info) Description 11/04/2024 11:00 AM EDT Office Visit Family [facility] [address] [place] [address] Roseann Plummer MD [address] [place] [phone] Hospital discharge follow-up*; Alcohol use disorder; Major depressive disorder, recurrent, moderate (HCC); Opioid dependence, uncomplicated (HCC); Methadone maintenance therapy patient (HCC); Other acute gastritis without hemorrhage; Thrush; COPD, group C, by GOLD 2017 classification (HCC); Dependence on supplemental oxygen Allergies Active Allergy Reactions Criticality Noted Date Comments Buspirone Rash 11/01/2022 documented as of this encounter (statuses as of 11/04/2024) Medications methADONE 10 MG Tablet Take 1 Tablet by mouth once. 100mg daily Active Bisacodyl 5 MG Oral Tablet Delayed Release (Dulcolax) Take 1 Tablet by mouth daily as needed for Constipation. 30 Tablet 023 Active oxygen IN GAS Use 3 L/min(Oxygen) as directed continuous. Active Albuterol Sulfate 0.63 MG/3ML Inhalation Nebulization Solution (Accuneb) Inhale 1 Vial via nebulizer every 6 hours as needed for Wheezing or Shortness of Breath. 360 mL 024 Active Beet Root 500 MG Oral Capsule Take by mouth. Ac tive Multivitamins Oral Capsule Take 1 Capsule by mouth in the morning. Active Nicotine 14 MG/24HR Transdermal Patch 24 Hour (Nicoderm CQ)Indications:To bacco use disorder Place 1 Patch over 24 hours topically on the skin daily. 28 Patch 5 024 Active Metoprolol Succinate ER 25 MG Oral Tablet Extended Release 24 Hour (toPROL XL)Indications:HT N, goal below 130/80 take 1 tablet by mouth twice a day 180 Tablet 2 024 Active amLODIPine Besylate 10 MG Oral Tablet (Norvasc)Indicati ons:HTN, goal below 130/80 Take 1 Tablet by mouth in the morning. In the morning.. 90 Tablet 3 024 Active Furosemide 40 MG Oral Tablet (Lasix) Take 1 Tablet by mouth in the morning. In the morning.. 90 Tablet 1 024 Active Ferrous Gluconate 324 (38 Fe) MG Oral Tablet Take 1 Tablet by mouth daily with breakfast. 90 Tablet 1 024 Active Albuterol Sulfate HFA 108 (90 Base) MCG/ACT Inhalation Aerosol SolutionIndicatio ns:Cough INHALE 2 PUFFS BY MOUTH EVERY 6 HOURS NEEDED FOR COUGH 18 g 5 024 Active Eliquis 5 MG Oral Tablet (Apixaban) TAKE ONE TABLET BY MOUTH EVERY MORNING AND TAKE ONE TABLET BY MOUTH BEFORE BEDTIME 180 Tablet 1 024 Active Potassium Chloride ER 20 MEQ Oral Tablet Extended ReleaseIndication s:Hypokalemia Take 1 Tablet by mouth 2 times a day. 180 Tablet 2 024 Active Magnesium Oxide 400 MG Oral TabletIndications :Hypomagnesemia Take 2 Tablets by mouth at bedtime. 180 Tablet 3 024 Active Nicotine 7 MG/24HR Transdermal Patch 24 Hour (Nicoderm CQ)Indications:To bacco use disorder APPLY 1 PATCH TOPICALLY DAILY 28 Patch 5 024 Active Folic Acid 1 MG Oral Tablet Take 1 Tablet by mouth in the morning. 30 Tablet 5 024 Active diazePAM 5 MG Oral Tablet (Valium)Indicatio ns:Situational anxiety Take 1 tab by mouth 45-[address] scan. Do not mix with alcohol. Do not drive. 2 Tablet 025 Active Additional Information Patient not taking.Reported on 11/04/2024 hydrOXYzine HCl 25 MG Oral Tablet Take 1 Tablet by mouth 3 times a day as needed. Active Lidocaine 4 % External Patch (Aspercreme)Indic ations:Degenerati on of intervertebral disc of lumbar region, unspecified whether pain present,Chest pain, unspecified type Place 1 Patch over 12 hours topically on the skin daily. Apply to anterior chest and low back 60 Patch 5 025 Active Budesonide 0.25 MG/2ML Inhalation Suspension (Pulmicort) Inhale 0.25mg (1 vial) via nebulizer in the morning. 60 mL 12 5 2:38 PM EDT 025 Active Umeclidinium-Lauren nterol 62.5-25 MCG/ACT Inhalation Aerosol Powder Breath Activated (ANORO ellipta) Inhale 1 Puff by mouth in the morning. 60 Each 12 5 2:38 PM EDT 025 Active Additional Information Patient not taking.Reported on 11/04/2024 Thiamine HCl 100 MG Oral Tablet (vitamin B-1) Take 1 Tablet by mouth in the morning. 30 Tablet 3 5 2:38 PM EDT 025 Active predniSONE 10 MG Oral Tablet (Deltasone) Take 3 Tablets by mouth daily for 2 days, THEN 2 Tablets daily for 3 days, THEN 1 Tablet daily for 3 days, THEN 0.5 (one-half) tablet daily for 3 days. 17 Tablet 5 2:38 PM EDT 025 2024 Active Sertraline HCl 50 MG Oral Tablet (Zoloft) Take 2 Tablets by mouth in the morning. 60 Tablet 3 5 2:38 PM EDT 025 Active Additional Information Patient not taking.Reported on 11/04/2024 Famotidine 20 MG Oral Tablet (Pepcid)Indicatio ns:Other acute gastritis without hemorrhage Take 1 Tablet by mouth in the morning and 1 Tablet before bedtime. 60 Tablet 5 025 Active Pantoprazole Sodium 40 MG Oral Tablet Delayed Release (Protonix)Indicat ions:Other acute gastritis without hemorrhage Take 1 Tablet by mouth 2 times a day. 180 Tablet 1 025 Active Clotrimazole 10 MG Mouth/Throat Bernardino (Mycelex Bernardino)Indication s:Thrush Take 1 Lozenge by mouth 5 times a day for 14 days. Allow tablet to slowly dissolve in your mouth 70 Bernardino 1 025 2024 Active Pantoprazole Sodium 40 MG Oral Tablet Delayed Release (Protonix) Take 1 Tablet by mouth in the morning. 90 Tablet 1 024 2024 Discontinued Hospital, Clinic, or Other Facility Administered Medication Ordered Dose Route Frequency Start Date End Date Status Albuterol Sulfate (Proventil) (2.5 MG/3ML) 0.083% inhalation solution 2.5 mgIndications:COPD, mild (HCC) 2.5 mg NEBULIZER PRN 10/11/2022 Active documented as of this encounter (statuses as of 11/04/2024) Active Problems Problem Noted Date Diagnosed Date [...] as of this encounter (statuses as of 11/04/2024) Resolved Problems Problem Noted Date Diagnosed Date [...] as of this encounter (statuses as of 11/04/2024) Immunizations Name Administration Dates Next Due Pneumococcal [...] Sign Reading Time Taken Comments Blood Pressure 120/68 11/04/2024 11:16 AM EDT Pulse 73 11/04/2024 11:16 AM EDT Temperature - - Respiratory Rate - - Oxygen Saturation 93% 11/04/2024 11:16 AM EDT 4 L Inhaled Oxygen Concentration - - Weight - - Height - - Body Mass Index - - documented in this encounter Functional Status * [...] Marcela Rodriguez RN documented in this encounter Patient Instructions * Patient Instructions* Roseann Plummer MD - 11/04/2024 11:54 AM EDT Suspect abd pain is from Alcohol irritating stomach and prednisone. -- increased pantoprazole 40mg 2x/day -- add famotidine 20mg 2x/day Can try all allergy pill to see if helps eyes/nose. OTC zyrtec, leida, claritin or zyxal are all fine. I'll send a message to Dr Branham to see if have ideas for nasal irritation. Start B12 supplement 1,000mcg/day. These are OTC. WE can start clotrimazole troches. At least do the Anoro ellipta - doesn't have steroids. I put in referral to have egg caser discuss options for alcohol treatment with you. documented in this encounter Progress Notes * Roseann Plummer MD - 11/04/2024 11:26 AM EDT SUBJECTIVE: Bhumika Flores is a 59 year old female. Chief Complaint Patient presents with Hospital Follow-Up Sinus scabs, dryness, but also nose is runny badly, congestion, eyes watering. Hospital Follow-Up Recent Admission: Patient was recently admitted to [facility] 10/22/24. The date of discharge was 10/28/24. Discharge report received and reviewed. HPI: COPD exacerbation. Started anoro ellipta and pulmicort. Pulmonary f/u. Extended steroid taper (11 days) Alcohol use disorder. Interested in cessation, ativan for withdrawal while inpatient. Increased sertraline dose to 100mg to help anxiety. Eliquis discontinued as 1yr post DVT/PE. CXR showed LLL pleural effusion with diffuse ground glass on CT. Abx in ED. One cigarette/day. THC gummies to help sleep. Patient Active Problem List Diagnosis HTN, goal below 130/80 Lumbar degenerative disc disease Primary osteoarthritis of both hips Substance abuse in remission (HCC) Primary osteoarthritis of right hip Obesity, Class I, BMI 30.0-34.9 (see actual BMI) Gastroesophageal reflux disease without esophagitis Tobacco use disorder Status post right hip replacement Methadone maintenance therapy patient (HCC) Recurrent major depressive disorder (HCC) Chronic obstructive pulmonary disease with (acute) exacerbation (HCC) COPD, group C, by GOLD 2017 classification ([facility]) Medical home patient encounter KARLA (acute kidney injury) (HCC) Anemia Nodule of right lung Pulmonary emboli (HCC) Dependence on supplemental oxygen Opioid dependence, uncomplicated (HCC) Alcohol dependence, uncomplicated (HCC) Cyst of kidney, acquired Restless legs syndrome (RLS) Pulmonary hypertension due to left heart disease (HCC) Elevated hemoglobin (HCC) Hypokalemia Opioid dependence in remission (HCC) Major depressive disorder, recurrent, moderate (HCC) Alcohol use disorder Chronic anticoagulation Current Outpatient Medications Medication Sig Dispense Refill methADONE 10 MG Tablet Take 1 Tablet by mouth once. 100mg daily Bisacodyl 5 MG Oral Tablet Delayed Release (Dulcolax) Take 1 Tablet by mouth daily as needed for Constipation. 30 Tablet 0 oxygen IN GAS Use 3 L/min(Oxygen) as directed continuous. Albuterol Sulfate 0.63 MG/3ML Inhalation Nebulization Solution (Accuneb) Inhale 1 Vial via nebulizer every 6 hours as needed for Wheezing or Shortness of Breath. 360 mL 0 Beet Root 500 MG Oral Capsule Take by mouth. Multivitamins Oral Capsule Take 1 Capsule by mouth in the morning. Metoprolol Succinate ER 25 MG Oral Tablet Extended Release 24 Hour (toPROL XL) take 1 tablet by mouth twice a day 180 Tablet 2 amLODIPine Besylate 10 MG Oral Tablet (Norvasc) Take 1 Tablet by mouth in the morning. In the morning.. 90 Tablet 3 Furosemide 40 MG Oral Tablet (Lasix) Take 1 Tablet by mouth in the morning. In the morning.. 90 Tablet 1 Ferrous Gluconate 324 (38 Fe) MG Oral Tablet Take 1 Tablet by mouth daily with breakfast. 90 Tablet1 Albuterol Sulfate HFA 108 (90 Base) MCG/ACT Inhalation Aerosol Solution INHALE 2 PUFFS BY MOUTH EVERY 6 HOURS NEEDED FOR COUGH 18 g 5 Eliquis 5 MG Oral Tablet (Apixaban) TAKE ONE TABLET BY MOUTH EVERY MORNING AND TAKE ONE TABLET BY MOUTH BEFORE BEDTIME 180 Tablet 1 Potassium Chloride ER 20 MEQ Oral Tablet Extended Release Take 1 Tablet by mouth 2 times a day. 180Tablet 2 Magnesium Oxide 400 MG Oral Tablet Take 2 Tablets by mouth at bedtime. 180 Tablet 3 Folic Acid 1 MG Oral Tablet Take 1 Tablet by mouth in the morning. 30 Tablet 5 hydrOXYzine HCl 25 MG Oral Tablet Take 1 Tablet by mouth 3 times a day as needed. Lidocaine 4 % External Patch (Aspercreme) Place 1 Patch over 12 hours topically on the skin daily. Apply to anterior chest and low back 60 Patch 5 Budesonide 0.25 MG/2ML Inhalation Suspension (Pulmicort) Inhale 0.25mg (1 vial) via nebulizer in the morning. 60 mL 12 Thiamine HCl 100 MG Oral Tablet (vitamin B-1) Take 1 Tablet by mouth in the morning. 30 Tablet 3 predniSONE 10 MG Oral Tablet (Deltasone) Take 3 Tablets by mouth daily for 2 days, THEN 2 Tablets daily for 3 days, THEN 1 Tablet daily for 3 days, THEN 0.5 (one-half) tablet daily for 3 days. 17 Tablet 0 Famotidine 20 MG Oral Tablet (Pepcid) Take 1 Tablet by mouth in the morning and 1 Tablet before bedtime. 60 Tablet 5 Pantoprazole Sodium 40 MG Oral Tablet Delayed Release (Protonix) Take 1 Tablet by mouth 2 times a day. 180 Tablet 1 Clotrimazole 10 MG Mouth/Throat Bernardino (Mycelex Bernardino) Take 1 Lozenge by mouth 5 times a day for 14 days. Allow tablet to slowly dissolve in your mouth 70 Bernardino 1 Nicotine 14 MG/24HR Transdermal Patch 24 Hour (Nicoderm CQ) Place 1 Patch over 24 hours topically on the skin daily. 28 Patch 5 Nicotine 7 MG/24HR Transdermal Patch 24 Hour (Nicoderm CQ) APPLY 1 PATCH TOPICALLY DAILY 28 Patch 5 diazePAM 5 MG Oral Tablet (Valium) Take 1 tab by mouth 45-[address] scan[address] Do not mix with alcohol. Do not drive. (Patient not taking: Reported on 11/04/2024) 2 Tablet 0 Umeclidinium-Vilanterol 62.5-25 MCG/ACT Inhalation Aerosol Powder Breath Activated (ANORO ellipta) Inhale 1 Puff by mouth in the morning. (Patient not taking: Reported on 11/04/2024) 60 Each 12 Sertraline HCl 50 MG Oral Tablet (Zoloft) Take 2 Tablets by mouth in the morning. (Patient not taking: Reported on 11/04/2024) 60 Tablet 3 Current Facility-Administered Medications Medication Dose Route Frequency Provider Last Rate Last Admin Albuterol Sulfate (Proventil) (2.5 MG/3ML) 0.083% inhalation solution 2.5 mg 2.5 mg Nebulizer PRN Caitlin Vasques DO 2.5 mg at 10/18/22 1450 Current and discharge medications have been reconciled. Review of patient's allergies indicates: Allergen Reactions Buspar [Buspirone] Rash OBJECTIVE: BP 120/68 (BP Site: Left Arm, BP Position: Sitting, BP Cuff Size: Large) | Pulse 73 | SpO2 93% Comment: 4 L REVIEW OF SYSTEMS: Review of Systems Constitutional: Negative for appetite change and fever. NOT yawning HENT: Nose is sore, scabs. Runny eyes, itchy eyes. Respiratory: Not doing inhalers, gives thrush - redness outside mouth, burning in mouth. Breathing better since leaving hospital. Cardiovascular: Negative for leg swelling. Mild chest pain/palpitations. Gastrointestinal: Positive for abdominal pain (LUQ pain after eating. happens with liquids. lipase normal in ED.) and diarrhea. Negative for blood in stool and vomiting. CCY in July. Genitourinary: Negative for dysuria, hematuria and vaginal bleeding. Musculoskeletal: Muscle cramps Skin: Rash on lumbar area starting to return Neurological: Negative for dizziness, syncope and light-headedness. Psychiatric/Behavioral: More depression, "I'm in the give-up phase." Alcohol 4-5 cans of tall-boy vodka mixer per day. Starting to shake when can't have one. Quit sertraline because taking it while drinking makes sick to stomach. Last drink was 6hrs ago, having mild shakes. Can get gooseflesh, not getting hallucinations. PHYSICAL EXAM: BP 120/68 (BP Site: Left Arm, BP Position: Sitting, BP Cuff Size: Large) | Pulse 73 | SpO2 93% Comment: 4 L Physical Exam Vitals and nursing note reviewed. Constitutional: General: She is not in acute distress. Appearance: She is ill-appearing. Comments: Nasal cannula oxygen. HENT: Nose: Comments: Nasal mucosa erythematous with some signs of recent bleeding bilaterally Mouth/Throat: Comments: Mild skin erythema at both oral folds Tongue is red and raw Eyes: General: No scleral icterus. Pupils: Pupils are equal, round, and reactive to light. Cardiovascular: Rate and Rhythm: Normal rate and regular rhythm. Heart sounds: No murmur heard. Pulmonary: Comments: Moderate air movement, improved from when I saw her in August. No wheezes, rales or rhonchi. No respiratory distress Abdominal: General: There is no distension. Palpations: Abdomen is soft. There is no mass. Tenderness: There is abdominal tenderness (Epigastric, left upper quadrant). There is no guarding or rebound. Neurological: Mental Status: She is alert. Psychiatric: Comments: Affect is flat. Seems more down. ASSESSMENT: Hospital discharge follow-up (Primary) - DISCH MED RECON CUR MED LIS Alcohol use disorder - [facility] Major depressive disorder, recurrent, moderate (HCC) - [facility] REFERRAL OP Opioid dependence, uncomplicated (HCC) - [facility] REFERRAL OP Methadone maintenance therapy patient (HCC) - [facility] REFERRAL OP Other acute gastritis without hemorrhage - Famotidine 20 MG Oral Tablet (Pepcid); Take 1 Tablet by mouth in the morning and 1 Tablet before bedtime. - Pantoprazole Sodium 40 MG Oral Tablet Delayed Release (Protonix); Take 1 Tablet by mouth 2 times a day. Thrush - Clotrimazole 10 MG Mouth/Throat Benrardino (Mycelex Bernardino); Take 1 Lozenge by mouth 5 times a day for 14 days. Allow tablet to slowly dissolve in your mouth COPD, group C, by GOLD 2017 classification (HCC) Dependence on supplemental oxygen Patient Instructions Suspect abd pain is from Alcohol irritating stomach and prednisone. -- increased pantoprazole 40mg 2x/day -- add famotidine 20mg 2x/day Can try all allergy pill to see if helps eyes/nose. OTC zyrtec, leida, claritin or zyxal are all fine. I'll send a message to Dr Branham to see if have ideas for nasal irritation. Start B12 supplement 1,000mcg/day. These are OTC. WE can start clotrimazole troches. At least do the Anoro ellipta - doesn't have steroids. I put in referral to have egg caser discuss options for alcohol treatment with you. Follow Up: Return in about 6 months (around 05/06/2025) for Return with Elian. | For: Return with Elian I spent a total of 40-54 minutes (exact time 42 mins) minutes on the date of service in preparation, delivery, and documentation of the care provided to Bhumika Flores excluding any time spent in performance of separately billed services. Roseann Plummer MD documented in this encounter Plan of Treatment Upcoming Encounters Date Type Department Care Team (Late st Contact Info) Description 11/05/2024 10:15 AM EDT Imaging Radiology [address], [address] [place] [phone] 11/05/2024 11:15 AM EDT Imaging Radiology [facility] [address] [place] [phone] 11/11/2024 12:30 PM EDT Office Visit Pulmonary Medicine, [facility] [address] [place] [phone] Huan Branham MD [address] [place] [address] 12/16/2024 1:00 PM EDT Nutrition Services Nutrition, [facility] [address] [facility] [place] [address] Zari Bonilla, ROBERT [address] [place] [address] 12/28/2024 12:30 PM EDT Office Visit Pulmonary Medicine, [facility] [address] [place] [phone] [facility] [address] [facility] [address] 05/12/2025 10:20 AM EDT Office Visit Family Practice [facility] [place] [address] Roseann Plummer MD [address] [place] [address] 07/07/2025 9:00 AM EST Office Visit Gynecology/Obstetrics [facility] [place] [address] Anahi Anthony CRNP [address] [place] [address] Scheduled Referrals Name Type Priority Associated Diagnoses Orde r Schedule POPULATION HEALTH REFERRAL OP Referral Within 3 days (urgent) Alcohol use disorder Major depressive disorder, recurrent, moderate (HCC) Opioid dependence, uncomplicated (HCC) Methadone maintenance therapy patient (HCC) Ordered: 11/04/2024 Health Maintenance Due Date Last Done Comments DISCUSS TOBACCO CESSATION (REFER TO LUCIA #[id number]) 1965 Alpha-1 Antitrypsin 1985 Pap Smear 1988 [...] this encounter Medical Devices Implanted Type Area [employer] Reader Device Identifier Shelf Expiration Date Model / Serial / Lot Shell Acet Trident Ii 50mm - [id number] Implanted:Qty: 1 on 12/05/2020 by Rodolfo Park DO at OR [facility] Right: Hip KANDICE : ORTH[employer] 09/04/2024 [id number] / / [id number] Trident Acetabular X3 0 36 D - [id number] Implanted:Qty: 1 on 12/05/2020 by Rodolfo Park DO at OR [facility] Right: Hip K[employer]ICE : ORTHOPA[employer] 09/14/2025 [id number] / / [id number] Hip Hd Nk Gavin Hummel 36/ 25 - [id number] Implanted:Qty: 1 on 12/05/2020 by Rodolfo Park DO at OR [facility] Right: Hip K[employer]ICE : ORTHOPAED[employer] 10/03/2025 [id number] / / [id number] Accolade Ii 127 Deg Sz 4 - [id number] Implanted:Qty: 1 on 12/05/2020 by Rodolfo Park DO at OR [facility] Right: Hip KANDICE : ORTHOPAEDICS 11/07/2025 [id number] / / [id number] documented as of this encounter Visit Diagnoses Diagnosis Hospital discharge follow-up- Primary Other follow-up examination Alcohol use disorder Major depressive disorder, recurrent, moderate (HCC) Major depressive disorder, recurrent episode, moderate Opioid dependence, uncomplicated (HCC) Methadone maintenance therapy patient (HCC) Opioid type dependence, unspecified Other acute gastritis without hemorrhage Thrush Candidiasis of mouth COPD, group C, by GOLD 2017 classification (HCC) Dependence on supplemental oxygen Screening mammogram for breast cancer documented in this encounter Advance Directives * [...] the patient have Health Care Power of Health Information Management Director? Yes, not currently available Care Teams Wood Science Professor Relationship Specialty Start Date End Date Roseann Plummer MD [address] [place] [id number] PCP - General Internal Medicine 11/05/22 documented as of this encounter
--- OUTSIDE RECORDS SUMMARY | 2024-11-11 08:36 | External Medical Summary | Summary of Care ---
Author Name Unknown Organization [facility] Address [address] [place] [address] Phone [phone] Care Team Providers Care Mold Cooler Name Role Phone Roseann Plummer MD Primary Care Provider Reason for Visit * Reason Onset Date Comments Referral 11/04/2024 EPIC 178 Referra l Encounter Details Date Type Department Care Team (Late st Contact Info) Description 11/04/2024 Telephone Care Coordination and Integration [address], [place] [phone] Lindsay Rey, BS [address], [place] [phone] Referral (EPIC 178 Referral) Allergies Active Allergy [...] No 05/20/2024 Does the household have a [facility] source [facility] income? (Household - [...] 11/05/2024 10:44 AM EDT 2nd outreach: Called [phone] and LVM with [facility] contact info and ref number for [...] for medical reason. Outcome of Referral: Called [phone] and LVM with [facility] contact info and ref number for call back. If member calls back please offer /[facility] services. Can also connect with [facility] for further assistance. As this is marked urgent 2nd outreach set for 11/05/2024. documented in this encounter Plan of Treatment Upcoming Encounters Date Type Department Care Team (Late st Contact Info) Description 11/11/2024 12:30 PM EDT Office Visit Pulmonary Medicine, [facility] [address] [place] [phone] Huan Branham MD [address] [facility] [place] [address] 11/13/2024 12:30 PM EDT Imaging Radiology [facility] [address] [place] [phone] 11/13/2024 1:30 PM EDT Imaging Radiology [facility] [address] [place] [phone] 12/16/2024 1:00 PM EDT Nutrition Services Nutrition, [facility] [address] [place] [address] Zari Bonilla, ROBERT [address] [place] [address] 12/28/2024 12:30 PM EDT Office Visit Pulmonary Medicine, [facility] [address] [place] [phone] Huan Branham MD [address] [address] 05/12/2025 10:20 AM EDT Office Visit Family Practice [facility] [address] [place] [address] Roseann Plummer MD [address] [place] [address] 07/07/2025 9:00 AM EST Office Visit Gynecology/Obstetrics [facility] [address] [place] [address] Anahi Anthony CRNP [address] [place] [address] Health Maintenance Due Date Last Done Comments DISCUSS TOBACCO CESSATION (REFER TO SMARTSET #8555) 1965 Alpha-1 Antitrypsin 1985 Pap Smear 1988 [...] this encounter Medical Devices Implanted Type Area Mainspring Barrel Assembly Cleaner Device Identifier Shelf Expiration Date Model / Serial / Lot Shell Acet Trident Ii 50mm - [id number] Implanted:Qty: 1 on 12/05/2020 by Rodolfo Park DO at OR [facility] Right: Hip KANDICE : ORTHOPAEDICS 09/04/2024 702-04-50D / / [id number] Trident Acetabular X3 0 36 D - [id number] Implanted:Qty: 1 on 12/05/2020 by Rodolfo Park DO at OR [facility] Right: Hip KANDICE : ORTHOPAEDICS 09/14/2025 723-00-36D / / [id number] Hip Hd Nk Alumina D 36/ 25 - [id number] Implanted:Qty: 1 on 12/05/2020 by Rodolfo Park DO at OR [facility] Right: Hip KANDICE : ORTHOPAEDICS 10/03/2025 6570-0-436 / / [id number] Accolade Ii 127 Deg Sz 4 - [id number] Implanted:Qty: 1 on 12/05/2020 by Rodolfo Park DO at OR [facility] Right: Hip KANDICE : ORTHOPAEDICS 11/07/2025 [id number] / / [id number] documented as of this encounter Advance Directives [...] the patient have Health Care Power of Gas Welder Apprentice? Yes, not currently available Care Teams Mold Cooler Relationship Specialty Start Date End Date Roseann Plummer MD [address] [place] [address] PCP - General Internal Medicine 11/05/22 documented as of this encounter
--- OUTSIDE RECORDS SUMMARY | 2024-11-11 08:36 | External Medical Summary | Summary of Care ---
Author Name Unknown Organization [facility] Address [address] [place] [address] Phone [phone] Care Team Providers Care Telecommunications Support Name Role Phone Roseann Plummer MD Primary Care Provider Reason for Visit * Reason Onset Date Comments Referral 11/04/2024 EPIC 178 Referra l Encounter Details Date Type Department Care Team (Late st Contact Info) Description 11/04/2024 Telephone Care Coordination and Integration [address] [place], [place] [phone] Lindsay Rey, BS [address] [place], [place] [phone] Referral (EPIC 178 Referral) Allergies Active Allergy Reactions Criticality Noted Date Comments Buspirone Rash 11/01/2022 documented as of this encounter (statuses as of 11/05/2024) Medications methADONE 10 MG Tablet Take 1 [...] morning. 30 Tablet 5 07/03/20 24 Active diazePAM 5 MG Oral Tablet (Valium)Indication s:Situational anxiety Take 1 tab by mouth 45-[address] scan. Do not mix with alcohol. Do not drive. 2 Tablet 08/18/19 25 Active Additional Information Patient not taking.Reported [...] nebulizer in the morning. 60 mL 12 10/28/2024 2:38 PM EDT 10/29/19 25 Active Umeclidinium-Vilan terol 62.5-25 MCG/ACT Inhalation Aerosol Powder Breath Activated (ANORO ellipta) Inhale 1 Puff by mouth in the morning. 60 Each 12 10/28/2024 2:38 PM EDT 10/29/19 25 Active Additional Information Patient not taking.Reported on 11/04/2024 Thiamine HCl 100 MG Oral Tablet (vitamin B-1) Take 1 Tablet by mouth in the morning. 30 Tablet 3 10/28/2024 2:38 PM EDT 10/29/19 25 Active predniSONE 10 MG Oral Tablet (Deltasone) Take 3 Tablets by mouth daily for 2 days, THEN 2 Tablets daily for 3 days, THEN 1 Tablet daily for 3 days, THEN 0.5 (one-half) tablet daily for 3 days. 17 Tablet 10/28/2024 2:38 PM EDT 10/29/19 25 025 Active Sertraline HCl 50 MG Oral Tablet (Zoloft) Take 2 Tablets by mouth in the morning. 60 Tablet 3 10/28/2024 2:38 PM EDT 10/29/19 25 Active Additional [...] 70 [place] 1 11/05/19 25 025 Active Hospital, Clinic, or Other Facility Administered Medication Ordered Dose Route Frequency Start Date End Date Status Albuterol Sulfate (Proventil) (2.5 MG/3ML) 0.083% inhalation solution 2.5 mgIndications:COPD, mild (HCC) 2.5 mg NEBULIZER PRN 10/11/2022 Active documented as of this encounter (statuses as of 11/05/2024) Active Problems Problem Noted Date Diagnosed Date [...] as of this encounter (statuses as of 11/05/2024) Resolved Problems Problem Noted Date Diagnosed Date [...] as of this encounter (statuses as of 11/05/2024) Immunizations Name Administration Dates Next Due Pneumococcal [...] No 05/20/2024 Does the household have [facility]? (Household - for [...] encounter Miscellaneous Notes * Telephone Encounter - Lindsay Rey BS - 11/05/2024 10:44 AM EDT 2nd outreach: Called [phone] and LVM with [facility] contact info and ref number for [...] for medical reason. Outcome of Referral: Called [phone] and LVM with [facility] contact info and ref number for call back. If member calls back please offer [facility] services. Can also connect with [facility] for further assistance. As this is marked urgent 2nd outreach set for 11/05/2024. documented in this encounter Plan of Treatment Upcoming Encounters Date Type Department Care Team (Late st Contact Info) Description 11/11/2024 12:30 PM EDT Office Visit Pulmonary Medicine, [facility] [address] [phone] Huan Branham MD [address] [address] 11/13/2024 10:15 AM EDT Imaging Radiology [facility] [address] [place] [phone] 12/16/2024 1:00 PM EDT Nutrition Services Nutrition, [facility] [address] [facility] [place] [address] Zari Bonilla, RDN [address] [place] [address] 12/28/2024 12:30 PM EDT Office Visit Pulmonary Medicine, [facility] [address] [place] [phone] Huan Branham MD [address] [address] 05/12/2025 10:20 AM EDT Office Visit Family Practice [facility] [address] [facility] [place] [address] Roseann Plummer MD [address] [place] [address] 07/07/2025 9:00 AM EST Office Visit Gynecology/Obstetrics [facility] [address] [place] [address] Anahi Anthony CRNP [address] [place] [address] Health Maintenance Due Date Last Done Comments DISCUSS TOBACCO CESSATION (REFER TO SMARTSET #6710) 1965 Alpha-1 Antitrypsin 1985 Pap Smear 1988 [...] this encounter Medical Devices Implanted Type Area Contact Center Professional Device Identifier Shelf Expiration Date Model / Serial / Lot Shell Acet Trident Ii 50mm - [id number] Implanted:Qty: 1 on 12/05/2020 by Rodolfo Park DO at OR [facility] Right: Hip KANDICE : ORTHOPAEDICS 09/04/2024 702-04-50D / / [id number] Trident Acetabular X3 0 36 D - [id number] Implanted:Qty: 1 on 12/05/2020 by Rodolfo Park DO at OR [facility] Right: Hip KANDICE : ORTHOPAEDICS 09/14/2025 723-00-36D / / [id number] Hip Hd Nk Alumina Md D 36/ 25 - [id number] Implanted:Qty: 1 on 12/05/2020 by Rodolfo Park DO at OR [facility] Right: Hip KANDICE : ORTHOPAEDICS 10/03/2025 6570-0-436 / / [id number] Accolade Ii 127 Deg Sz 4 - [id number] Implanted:Qty: 1 on 12/05/2020 by Rodolfo Park DO at OR [facility] Right: Hip KANDICE : ORTHOPAEDICS 11/07/2025 [id number] / / [id number] documented as of this encounter Advance Directives [...] the patient have Health Care Power of Flat Bed Knitter? Yes, not currently available Care Teams Telecommunications Support Relationship Specialty Start Date End Date Roseann Plummer MD [address] [place] [place] [address] PCP - General Internal Medicine 11/05/22 documented as of this encounter
--- OUTSIDE RECORDS SUMMARY | 2024-11-11 08:36 | External Medical Summary | Summary of Care ---
Author Name Unknown Organization [facility] Address [address] [place] [address] Phone [phone] Care Team Providers Care Tool And Die Maker/Designer Name Role Phone Roseann Plummer MD Primary Care Provider Reason for Visit * Reason Onset Date Comments Referral 11/04/2024 EPIC 178 Referra l Encounter Details Date Type Department Care Team (Late st Contact Info) Description 11/04/2024 Telephone Care Coordination and Integration [address] [place], [place] [phone] Lindsay Rey, BS [address] [place], [place] [phone] Referral (EPIC 178 Referral) Allergies Active Allergy [...] No 05/20/2024 Does the household have [facility]? (Household [...] for medical reason. Outcome of Referral: Called [phone] and LVM with [facility] contact info and ref number for call back. If member calls back please offer /[facility] services. Can also connect with [facility] for further assistance. As this is marked urgent 2nd outreach set for 11/05/2024. documented in this encounter Plan of Treatment Upcoming Encounters Date Type Department Care Team (Late st Contact Info) Description 11/05/2024 10:15 AM EDT Imaging [facility] [address] [place] [phone] 11/05/2024 11:15 AM EDT Imaging Radiology [facility] [address] [place] [phone] 11/11/2024 12:30 PM EDT Office Visit Pulmonary Medicine, [facility] [address] [place] [phone] Huan Branham MD [address] [address] 12/16/2024 1:00 PM EDT Nutrition Services Nutrition, [facility] [address] [facility] [place] [address] Zari Bonilla, JOAON [address] [place] [address] 12/28/2024 12:30 PM EDT Office Visit Pulmonary Medicine, [facility] [address] [place] [phone] Huan Branham MD [address] [address] 05/12/2025 10:20 AM EDT Office Visit Family Practice [facility] [address] [place] [address] Roseann Plummer MD [address] [place] [address] 07/07/2025 9:00 AM EST Office Visit Gynecology/Obstetrics [facility] [address] [place] [address] Anahi Anthony CRNP [address] [place] [address] Health Maintenance Due Date Last Done Comments DISCUSS TOBACCO CESSATION (REFER TO SMARTSET #7456) 1965 Alpha-1 Antitrypsin 1985 Pap Smear 1988 [...] this encounter Medical Devices Implanted Type Area Repatcher Device Identifier Shelf Expiration Date Model / Serial / Lot Shell Acet Trident Ii 50mm - [id number] Implanted:Qty: 1 on 12/05/2020 by Rodolfo Park DO at OR [facility] Right: Hip KANDICE : ORTHOPAEDICS 09/04/2024 702-04-50D / / [id number] Trident Acetabular X3 0 36 D - [id number] Implanted:Qty: 1 on 12/05/2020 by Rodolfo Park DO at OR [facility] Right: Hip KANDICE : ORTHOPAEDICS 09/14/2025 723-00-36D / / [id number] Hip Hd Perry Alonso Md D 36/ 25 - [id number] Implanted:Qty: 1 on 12/05/2020 by Rodolfo Park DO at OR [facility] Right: Hip KANDICE : ORTHOPAEDICS 10/03/2025 6570-0-436 / / [id number] Accolade Ii 127 Deg Sz 4 - [id number] Implanted:Qty: 1 on 12/05/2020 by Rodolfo Park DO at OR [facility] Right: Hip KANDICE : ORTHOPAEDICS 11/07/2025 6958-1989 / / [id number] documented as of this encounter Advance Directives [...] the patient have Health Care Power of Pan Dumper? Yes, not currently available Care Teams Tool And Die Maker/Designer Relationship Specialty Start Date End Date Roseann Plummer MD [address] [address] PCP - General Internal Medicine 11/05/22 documented as of this encounter
--- OUTSIDE RECORDS SUMMARY | 2024-11-11 08:36 | External Medical Summary | Summary of Care ---
Author Name Unknown Organization [facility] Address [address] [place] [address] Phone [phone] Care Team Providers Care Pressfitter Name Role Phone Roseann Plummer MD Primary Care Provider Reason for Visit * Reason Onset Date Comments Advice 11/04/2024 Re: nasal irrita tion with oxygen use Encounter Details Date Type Department Care Team (Late st Contact Info) Description 11/04/2024 Telephone Family Practice [facility] [address] [place] [phone] Roseann Plummer MD [address] [place] [address] Advice (Re: nasal irritation with oxygen use) Allergies Active Allergy Reactions Criticality Noted Date [...] Telephone Encounter - Roseann Plummer MD - 11/04/2024 1:43 PM EDT Thank you! * Telephone Encounter - Brandy Ba LPN - 11/04/2024 1:38 PM EDT Lengthy MyG sent to pt with recommendations. * Telephone Encounter - Roseann Plummer MD - 11/04/2024 1:20 PM EDT Patient of Dr Branham. Having trouble with nasal irritation and bleeding. On 4L NC continuous. Not able to use vaseline or mupirocin due to clogging cannula. Using humidification, not helping. I'm not sure what steps to try next. Can you help? Does have f/u with Dr Branham next week. documented in this encounter Plan of Treatment Upcoming Encounters Date Type Department Care Team (Late st Contact Info) Description 11/05/2024 10:15 AM EDT [facility] [address] [place] [phone] 11/05/2024 11:15 AM EDT Imaging Radiology [facility] [address] [place] [phone] 11/11/2024 12:30 PM EDT Office Visit Pulmonary Medicine, [facility] [address] [place] [phone] Huan Branham MD [address] [address] 12/16/2024 1:00 PM EDT Nutrition Services Nutrition, [facility] [address] [place] [address] Zari Bonilla RDN [address] [place] [address] 12/28/2024 12:30 PM EDT Office Visit Pulmonary Medicine, [facility] [address] [place] [phone] Huan Branham MD [address] [address] 05/12/2025 10:20 AM EDT Office Visit Family Practice [facility] [address] [place] [address] Roseann Plummer MD [address] [place] [address] 07/07/2025 9:00 AM EST Office Visit Gynecology/Obstetrics [facility] [address] [place] [address] Anahi Anthony CRNP [address] [place] [address] Health Maintenance Due Date Last Done Comments DISCUSS TOBACCO CESSATION (REFER TO SMARTSET #9444) 1965 Alpha-1 Antitrypsin 1985 Pap Smear 1988 [...] encounter Medical Devices Implanted Type Area Emergency Management Director Device Identifier Shelf Expiration Date Model / Serial / Lot Shell Acet Trident Ii 50mm - [id number] Implanted:Qty: 1 on 12/05/2020 by Rodolfo Park DO at OR [facility] Right: Hip KANDICE : ORTHOPAEDICS 09/04/2024 702-04-50D / / [id number] Trident Acetabular X3 0 36 D - [id number] Implanted:Qty: 1 on 12/05/2020 by Rodolfo Park DO at OR [facility] Right: Hip KANDICE : ORTHOPAEDICS 09/14/2025 723-00-36D / / [id number] Hip Hd Nk Alumina Md D 36/ 25 - [id number] Implanted:Qty: 1 on 12/05/2020 by Rodolfo Park DO at OR [facility] Right: Hip KANDICE : ORTHOPAEDICS 10/03/2025 6570-0-436 / / [id number] Accolade Ii 127 Deg Sz 4 - [id number] Implanted:Qty: 1 on 12/05/2020 by Rodolfo Park DO at OR [facility] Right: Hip KANDICE : ORTHOPAEDICS 11/07/2025 6866-9137 / / [id number] documented as of this encounter Advance Directives [...] the patient have Health Care Power of Camera Tuning Engineer? Yes, not currently available Care Teams Pressfitter Relationship Specialty Start Date End Date Roseann Plummer MD [address] [address] PCP - General Internal Medicine 11/05/22 documented as of this encounter
--- OUTSIDE RECORDS SUMMARY | 2024-11-11 08:37 | External Medical Summary ---
Author Name Unknown Address Unknown Organization K01:LABORATORY [facility] [place] - [address] [facility] [address] Laboratory Report Ordering Provider Test Date Status KEELY GARCIA 10/22/2024 18:47:00 Final Observation Date Value Abnormality Reference (Units ) Status Body temperature 10/22/2024 18:47:00 37.0 (C) Final pH of Venous blood 10/22/2024 18:47:00 7.341 7.320-7.430 (units) Final Carbon dioxide [Partial pressure] in Venous blood 10/22/2024 18:47:00 64.0 Above high normal 40.0-60.0 (mmHg) Final Oxygen [Partial pressure] in Venous blood 10/22/2024 18:47:00 50.0 25.0-50.0 (mmHg) Final Base excess, Capillary 10/22/2024 18:47:00 6.4 Above high normal -2.0-2.0 (mmol/L) Final Hemoglobin [Mass/volume] in Blood by Oximetry 10/22/2024 18:47:00 12.7 12.0-15.3 (g/dL) Final Oxyhemoglobin, Venous (FO2HB) 10/22/2024 18:47:00 78.8 40.0-85.0 (% total Hgb) Final Carboxyhemoglobin 10/22/2024 18:47:00 4.7 Above high normal <=1.5 (% total Hgb) Final Smokers: 0-9.0 % Methemoglobin 10/22/2024 18:47:00 0.5 <= 1.5 (% total Hgb) Final Deoxyhemoglobin/Hemoglo bin.total in Venous blood 10/22/2024 18:47:00 16.0 (% total Hgb) Final Oxygen content in Venous blood 10/22/2024 18:47:00 14.1 7.0-18.0 (%vol) Final Bicarbonate, Venous, POC (i-STAT) 10/22/2024 18:47:00 33.7 Above high normal 23.0-31.0 (mmol/L) Final Performing Location LABORATORY [facility] - [address] [facility] [place] [address]
--- OUTSIDE RECORDS SUMMARY | 2024-11-11 08:37 | External Medical Summary ---
Author Name Unknown Address Unknown Organization K01:LABORATORY [facility] [place] - [facility] [place] [address] Laboratory Report Ordering Provider Test Date Status KEELY GARCIA 10/22/2024 18:47:00 Final Observation Date Value Abnormality Reference (Units ) Status WBC, Total 10/22/2024 18:47:00 11.52 Above high normal 4.00-10.80 (K/uL) Final RBC 10/22/2024 18:47:00 4.02 3.85-5.15 (M/uL) Final Hemoglobin 10/22/2024 18:47:00 12.5 12.0-15.3 (g/dL) Final HCT 10/22/2024 18:47:00 40.0 36.0-45.2 (%) Final MCV 10/22/2024 18:47:00 99.5 81.5-97.5 (fL) Final MCH 10/22/2024 18:47:00 31.1 27.0-34.0 (pg) Final MCHC 10/22/2024 18:47:00 31.3 32.0-36.0 (g/dL) Final RDW 10/22/2024 18:47:00 13.2 11.5-15.5 (%) Final Platelets 10/22/2024 18:47:00 165 140-400 (K/uL) Final MPV 10/22/2024 18:47:00 10.2 6.6-11.1 (fL) Final Nucleated erythrocytes/100 leukocytes [Ratio] in Blood by Automated count 10/22/2024 18:47:00 0 <=0 (/100 WBCs) Final Performing Location LABORATORY [facility] - [address] [place] [address]
--- OUTSIDE RECORDS SUMMARY | 2024-11-11 08:37 | External Medical Summary ---
Author Name Unknown Address Unknown Organization K01:[place] [place] [address] [facility] [address] Laboratory Report Ordering Provider Test Date Status MALIK MORROW 10/23/2024 06:31:20 Final Observation Date Value Abnormality Reference (Units) Status Color of Urine by Auto 10/23/2024 06:31:20 Light Yellow Colorless, Light Yellow, Yellow, Dark Yellow Final Clarity, Urine 10/23/2024 06:31:20 Clear Clear Final Glucose [Mass/volume] in Urine by Automated test strip 10/23/2024 06:31:20 Negative Negative (mg/dL) Final Bilirubin.total [Presence] in Urine by Automated test strip 10/23/2024 06:31:20 Negative Negative Final Ketones [Mass/volume] in Urine by Automated test strip 10/23/2024 06:31:20 Negative Negative (mg/dL) Final Specific gravity, Urine 10/23/2024 06:31:20 >1.050 Above high normal 1.003-1.030 Final Hemoglobin [Presence] in Urine by Automated test strip 10/23/2024 06:31:20 Negative Negative Final pH, Urine 10/23/2024 06:31:20 7.0 5.0-7.5 (Units) Final Protein [Mass/volume] in Urine by Automated test strip 10/23/2024 06:31:20 Trace Abnormal Negative (mg/dL) Final Urobilinogen [Mass/volume] in Urine by Automated test strip 10/23/2024 06:31:20 Normal Normal (mg/dL) Final Nitrite [Presence] in Urine by Automated test strip 10/23/2024 06:31:20 Negative Negative Final Leukocyte esterase [Presence] in Urine by Automated test strip 10/23/2024 06:31:20 Negative Negative Final RBC, Urine 10/23/2024 06:31:20 0-2 0-2 (/HPF) Final WBC, Urine 10/23/2024 06:31:20 0-2 0-2 (/HPF) Final Bacteria [#/area] in Urine sediment by Microscopy high power field 10/23/2024 06:31:20 0-25 0-25 (/HPF) Final CULTURE, URINE - [facility] 10/23/2024 06:31:20 Final Culture not indicated by uri nalysis results\X09\ Performing Location LABORATORY [place] [address] [facility] [address]
--- OUTSIDE RECORDS SUMMARY | 2024-11-11 08:37 | External Medical Summary ---
Author Name Unknown Address Unknown Organization K01:[facility] [place] [address] [place] [address] Laboratory Report Ordering Provider Test Date Status GAIL MANNING 10/27/2024 05:28:00 Final Observation Date Value Abnormality Reference (Units ) Status WBC, Total 10/27/2024 05:28:00 11.27 Above high normal 4.00-10.80 (K/uL) Final RBC 10/27/2024 05:28:00 3.64 3.85-5.15 (M/uL) Final Hemoglobin 10/27/2024 05:28:00 11.3 Below low normal 12.0-15.3 (g/dL) Final HCT 10/27/2024 05:28:00 37.1 36.0-45.2 (%) Final MCV 10/27/2024 05:28:00 101.9 81.5-97.5 (fL) Final MCH 10/27/2024 05:28:00 31.0 27.0-34.0 (pg) Final MCHC 10/27/2024 05:28:00 30.5 32.0-36.0 (g/dL) Final RDW 10/27/2024 05:28:00 13.2 11.5-15.5 (%) Final Platelets 10/27/2024 05:28:00 284 140-400 (K/uL) Final MPV 10/27/2024 05:28:00 11.0 6.6-11.1 (fL) Final Nucleated erythrocytes/100 leukocytes [Ratio] in Blood by Automated count 10/27/2024 05:28:00 0 <=0 (/100 WBCs) Final Performing Location [facility] [place] [address] [place] [address]
--- OUTSIDE RECORDS SUMMARY | 2024-11-11 08:37 | External Medical Summary ---
Author Name Unknown Address Unknown Organization K01:LABORATORY [place] [address] [address] [facility] [address] [facility] [address] Laboratory Report Ordering Provider Test Date Status KEELY GARCIA 10/22/2024 18:47:00 Final Less than 0.5 ng/mL: Low ris k for progression to sepsis. Review patients condition for localized infections.

0.5 to 2.0 ng/mL: Intermediate risk for progresion to sepsis. Review underlying conditions. Recommend repeat PCT after 6 hours has elapsed.

Greater than 2.0 ng/mL: high risk for progression to sepsis unless other causes are known. Observation Date Value Abnormality Reference (Units ) Status Procalcitonin [Mass/volume] in Serum or Plasma by Immunoassay 10/22/2024 18:47:00 0.11 Above high normal <0.10 (ng/mL) Final Performing Location [facility]ORY [facility] [place] [address] [facility] [address]
--- OUTSIDE RECORDS SUMMARY | 2024-11-11 08:37 | External Medical Summary ---
Author Name Unknown Address Unknown Organization K01:[facility] - [address] [place] [address] Laboratory Report Ordering Provider Test Date Status SAMUEL MARRERO 10/24/2024 08:12:00 Final Observation Date Value Abnormality Reference (Units ) Status Magnesium 10/24/2024 08:12:00 2.4 1.5-2.6 (m g/dL) Final Performing Location [facility] - [address] [place] [address]
--- OUTSIDE RECORDS SUMMARY | 2024-11-11 08:37 | External Medical Summary ---
Author Name Unknown Address Unknown Organization K01:LABORATORY [facility] [place] - [address] [facility] [address] Laboratory Report Ordering Provider Test Date Status GALI MANNING 10/23/2024 09:55:00 Final Observation Date Value Abnormality Reference (Units ) Status Body temperature 10/23/2024 09:55:00 37.0 (C) Final pH of Venous blood 10/23/2024 09:55:00 7.322 7.320-7.430 (units) Final Carbon dioxide [Partial pressure] in Venous blood 10/23/2024 09:55:00 70.7 Above high normal 40.0-60.0 (mmHg) Final Oxygen [Partial pressure] in Venous blood 10/23/2024 09:55:00 56.9 Above high normal 25.0-50.0 (mmHg) Final Base excess, Capillary 10/23/2024 09:55:00 7.8 Above high normal -2.0-2.0 (mmol/L) Final Hemoglobin [Mass/volume] in Blood by Oximetry 10/23/2024 09:55:00 11.6 Below low normal 12.0-15.3 (g/dL) Final Oxyhemoglobin, Venous (FO2HB) 10/23/2024 09:55:00 83.5 40.0-85.0 (% total Hgb) Final Carboxyhemoglobin 10/23/2024 09:55:00 1.7 Above high normal <=1.5 (% total Hgb) Final Smokers: 0-9.0 % Methemoglobin 10/23/2024 09:55:00 0.8 <= 1.5 (% total Hgb) Final Deoxyhemoglobin/Hemoglo bin.total in Venous blood 10/23/2024 09:55:00 14.0 (% total Hgb) Final Oxygen content in Venous blood 10/23/2024 09:55:00 13.7 7.0-18.0 (%vol) Final Bicarbonate, Venous, POC (i-STAT) 10/23/2024 09:55:00 35.6 Above high normal 23.0-31.0 (mmol/L) Final Performing Location LABORATORY [facility] [place] - [address] [facility] [address]
--- OUTSIDE RECORDS SUMMARY | 2024-11-11 08:37 | External Medical Summary ---
Author Name Unknown Address Unknown Organization K01:[facility] - [address] [place] [address] Laboratory Report Ordering Provider Test Date Status SAMUEL MARRERO 10/24/2024 08:12:00 Final Observation Date Value Abnormality Reference (Units ) Status Phosphate 10/24/2024 08:12:00 4.3 2.5-4.8 (m g/dL) Final Performing Location [facility] - [address] [place] [address]
--- OUTSIDE RECORDS SUMMARY | 2024-11-11 08:37 | External Medical Summary ---
Author Name Unknown Address Unknown Organization K01:LABORATORY [facility] [place] - [address] [place] [address] Laboratory Report Ordering Provider Test Date Status GALI MANNING 10/26/2024 07:31:00 Final Observation Date Value Abnormality Reference (Units ) Status WBC, Total 10/26/2024 07:31:00 11.50 Above high normal 4.00-10.80 (K/uL) Final RBC 10/26/2024 07:31:00 3.61 3.85-5.15 (M/uL) Final Hemoglobin 10/26/2024 07:31:00 11.1 Below low normal 12.0-15.3 (g/dL) Final HCT 10/26/2024 07:31:00 36.9 36.0-45.2 (%) Final MCV 10/26/2024 07:31:00 102.2 81.5-97.5 (fL) Final MCH 10/26/2024 07:31:00 30.7 27.0-34.0 (pg) Final MCHC 10/26/2024 07:31:00 30.1 32.0-36.0 (g/dL) Final RDW 10/26/2024 07:31:00 13.2 11.5-15.5 (%) Final Platelets 10/26/2024 07:31:00 178 140-400 (K/uL) Final MPV 10/26/2024 07:31:00 10.5 6.6-11.1 (fL) Final Nucleated erythrocytes/100 leukocytes [Ratio] in Blood by Automated count 10/26/2024 07:31:00 0 <=0 (/100 WBCs) Final Performing Location LABORATORY [facility] [place] - [address] [place] [address]
--- OUTSIDE RECORDS SUMMARY | 2024-11-11 08:37 | External Medical Summary ---
Author Name Unknown Address Unknown Organization K01:LABORATORY [facility] - [address] [place] [address] Laboratory Report Ordering Provider Test Date Status GALI MANNING 10/28/2024 06:21:00 Final Observation Date Value Abnormality Reference (Units ) Status WBC, Total 10/28/2024 06:21:00 12.31 Above high normal 4.00-10.80 (K/uL) Final RBC 10/28/2024 06:21:00 3.69 3.85-5.15 (M/uL) Final Hemoglobin 10/28/2024 06:21:00 11.3 Below low normal 12.0-15.3 (g/dL) Final HCT 10/28/2024 06:21:00 37.7 36.0-45.2 (%) Final MCV 10/28/2024 06:21:00 102.2 81.5-97.5 (fL) Final MCH 10/28/2024 06:21:00 30.6 27.0-34.0 (pg) Final MCHC 10/28/2024 06:21:00 30.0 32.0-36.0 (g/dL) Final RDW 10/28/2024 06:21:00 13.0 11.5-15.5 (%) Final Platelets 10/28/2024 06:21:00 266 140-400 (K/uL) Final MPV 10/28/2024 06:21:00 10.1 6.6-11.1 (fL) Final Nucleated erythrocytes/100 leukocytes [Ratio] in Blood by Automated count 10/28/2024 06:21:00 0 <=0 (/100 WBCs) Final Performing Location LABORATORY [facility] - [address] [place] [address]
--- OUTSIDE RECORDS SUMMARY | 2024-11-11 08:37 | External Medical Summary ---
Author Name Unknown Address Unknown Organization K01:[place]ORY [facility] [place] [address] [place] [address] Laboratory Report Ordering Provider Test Date Status MALIK MORROW 10/22/2024 18:47:00 Final Observation Date Value Abnormality Reference (Units ) Status Lipase 10/22/2024 18:47:00 33 13-60 (U/L ) Final Performing Location [facility] - [address] [place] [address]
--- OUTSIDE RECORDS SUMMARY | 2024-11-11 08:37 | External Medical Summary ---
Author Name Unknown Address Unknown Organization K01:LAB[place]ATORY [facility] [place] - [address] [facility] [address] Laboratory Report Ordering Provider Test Date Status MALIK MORROW 10/23/2024 06:49:00 Final Observation Date Value Abnormality Reference (Units ) Status Body temperature 10/23/2024 06:49:00 37.0 (C) Final pH of Venous blood 10/23/2024 06:49:00 7.309 Below low normal 7.320-7.430 (units) Final Carbon dioxide [Partial pressure] in Venous blood 10/23/2024 06:49:00 71.0 Above high normal 40.0-60.0 (mmHg) Final Oxygen [Partial pressure] in Venous blood 10/23/2024 06:49:00 59.9 Above high normal 25.0-50.0 (mmHg) Final Base excess, Capillary 10/23/2024 06:49:00 6.3 Above high normal -2.0-2.0 (mmol/L) Final Hemoglobin [Mass/volume] in Blood by Oximetry 10/23/2024 06:49:00 13.2 12.0-15.3 (g/dL) Final Oxyhemoglobin, Venous (FO2HB) 10/23/2024 06:49:00 85.9 Above high normal 40.0-85.0 (% total Hgb) Final Carboxyhemoglobin 10/23/2024 06:49:00 1.8 Above high normal <=1.5 (% total Hgb) Final Smokers: 0-9.0 % Methemoglobin 10/23/2024 06:49:00 0.4 <= 1.5 (% total Hgb) Final Deoxyhemoglobin/Hemoglo bin.total in Venous blood 10/23/2024 06:49:00 11.9 (% total Hgb) Final Oxygen content in Venous blood 10/23/2024 06:49:00 15.9 7.0-18.0 (%vol) Final Bicarbonate, Venous, POC (i-STAT) 10/23/2024 06:49:00 34.6 Above high normal 23.0-31.0 (mmol/L) Final Performing Location [facility]ORY [facility] [place] [facility] [address] [place] [address]
--- OUTSIDE RECORDS SUMMARY | 2024-11-11 08:37 | External Medical Summary ---
Author Name Unknown Address Unknown Organization K01:LABORATORY [facility] [place] - [address] [place] [address] Laboratory Report Ordering Provider Test Date Status ELIDA,SAMUEL 10/23/2024 06:49:00 Final Observation Date Value Abnormality Reference (Units ) Status Phosphate 10/23/2024 06:49:00 3.7 2.5-4.8 (m g/dL) Final Results may be falsely eleva bennett due to hemolysis. Performing Location LABORATORY [facility] - [address] [place] [address]
--- OUTSIDE RECORDS SUMMARY | 2024-11-11 08:37 | External Medical Summary ---
Author Name Unknown Address Unknown Organization K01:[facility] - [address] [place] [address] Laboratory Report Ordering Provider Test Date Status SAMUEL MARRERO 10/23/2024 06:49:00 Final Observation Date Value Abnormality Reference (Units ) Status Magnesium 10/23/2024 06:49:00 2.2 1.5-2.6 (m g/dL) Final Performing Location LAB[facility] - [address] [place] [address]
--- OUTSIDE RECORDS SUMMARY | 2024-11-11 08:37 | External Medical Summary ---
Author Name Unknown Address Unknown Organization K01:LABORATORY [facility] [place] - [address] [facility] [address] Laboratory Report Ordering Provider Test Date Status BETO BRANDT 10/26/2024 06:36:00 Final Observation Date Value Abnormality Reference (Units ) Status BUN 10/26/2024 06:36:00 20 6-20 (mg/dL) Final Creatinine 10/26/2024 06:36:00 0.9 0.5-1.0 (mg/dL) Final Glomerular filtration rate/1.73 sq M.predicted [Volume Rate/Area] in Serum, Plasma or Blood by Creatinine-based formula (CKD-EPI) 10/26/2024 06:36:00 78 >=60 (mL/min) Final eGFR is calculated based on the CKD-EPI 2020 equation. Sodium 10/26/2024 06:36:00 137 135-146 (m mol/L) Final Potassium 10/26/2024 06:36:00 4.8 3.5-5.1 (m mol/L) Final Cl 10/26/2024 06:36:00 97 Below low normal 98- 107 (mmol/L) Final CO2 10/26/2024 06:36:00 27 22-32 (mmo l/L) Final Anion gap 10/26/2024 06:36:00 13 7-15 (mmol /L) Final Glucose 10/26/2024 06:36:00 74 70-120 (mg /dL) Final Albumin 10/26/2024 06:36:00 2.9 Below low normal 3.8 -5.0 (g/dL) Final AST (Aspartate aminotransferase) 10/26/2024 06:36:00 46 Above high normal 10-35 (U/L) Final Results may be falsely eleva bennett due to hemolysis. Alk Phos 10/26/2024 06:36:00 125 35-130 (U/ L) Final Bilirubin, Total 10/26/2024 06:36:00 <0.2 <=1 .2 (mg/dL) Final Calcium 10/26/2024 06:36:00 8.7 8.4-10.2 ( mg/dL) Final Protein 10/26/2024 06:36:00 6.4 6.0-8.3 (g /dL) Final ALT (Alanine aminotransferase) 10/26/2024 06:36:00 46 Above high normal 10-35 (U/L) Final Performing Location LABORATORY [facility] [place] - [address] [facility] [address]
--- OUTSIDE RECORDS SUMMARY | 2024-11-11 08:37 | External Medical Summary ---
Author Name Unknown Address Unknown Organization K01:LABORATORY [facility] [place] - [facility] [address] [facility] [address] Laboratory Report Ordering Provider Test Date Status SAMUEL MARRERO 10/23/2024 06:49:00 Final Observation Date Value Abnormality Reference (Units ) Status WBC, Total 10/23/2024 06:49:00 9.63 4.00-10.80 (K/uL) Final RBC 10/23/2024 06:49:00 3.79 3.85-5.15 (M/uL) Final Hemoglobin 10/23/2024 06:49:00 11.6 Below low normal 12.0-15.3 (g/dL) Final HCT 10/23/2024 06:49:00 38.0 36.0-45.2 (%) Final MCV 10/23/2024 06:49:00 100.3 81.5-97.5 (fL) Final MCH 10/23/2024 06:49:00 30.6 27.0-34.0 (pg) Final MCHC 10/23/2024 06:49:00 30.5 32.0-36.0 (g/dL) Final RDW 10/23/2024 06:49:00 13.2 11.5-15.5 (%) Final Platelets 10/23/2024 06:49:00 164 140-400 (K/uL) Final MPV 10/23/2024 06:49:00 10.4 6.6-11.1 (fL) Final Nucleated erythrocytes/100 leukocytes [Ratio] in Blood by Automated count 10/23/2024 06:49:00 0 <=0 (/100 WBCs) Final Performing Location LABORATORY [facility] [place] [address] [place] [address]
--- OUTSIDE RECORDS SUMMARY | 2024-11-11 08:37 | External Medical Summary ---
Author Name Unknown Address Unknown Organization K01:LABORATORY [facility] [place] - [address] [facility] [address] Laboratory Report Ordering Provider Test Date Status KEELY GARCIA 10/22/2024 18:47:00 Final Observation Date Value Abnormality Reference (Units ) Status BUN 10/22/2024 18:47:00 5 Below low normal 6-20 (mg/dL) Final Creatinine 10/22/2024 18:47:00 0.9 0.5-1.0 (mg/dL) Final Glomerular filtration rate/1.73 sq M.predicted [Volume Rate/Area] in Serum, Plasma or Blood by Creatinine-based formula (CKD-EPI) 10/22/2024 18:47:00 80 >=60 (mL/min) Final eGFR is calculated based on the CKD-EPI 2020 equation. Sodium 10/22/2024 18:47:00 137 135-146 (m mol/L) Final Potassium 10/22/2024 18:47:00 4.3 3.5-5.1 (m mol/L) Final Cl 10/22/2024 18:47:00 97 Below low normal 98- 107 (mmol/L) Final CO2 10/22/2024 18:47:00 27 22-32 (mmo l/L) Final Anion gap 10/22/2024 18:47:00 13 7-15 (mmol /L) Final Glucose 10/22/2024 18:47:00 126 Above high normal 70 -120 (mg/dL) Final Albumin 10/22/2024 18:47:00 3.6 Below low normal 3.8 -5.0 (g/dL) Final AST (Aspartate aminotransferase) 10/22/2024 18:47:00 49 Above high normal 10-35 (U/L) Final Alk Phos 10/22/2024 18:47:00 161 Above high normal 35 -130 (U/L) Final Bilirubin, Total 10/22/2024 18:47:00 0.2 <=1 .2 (mg/dL) Final Calcium 10/22/2024 18:47:00 9.3 8.4-10.2 ( mg/dL) Final Protein 10/22/2024 18:47:00 7.4 6.0-8.3 (g /dL) Final ALT (Alanine aminotransferase) 10/22/2024 18:47:00 53 Above high normal 10-35 (U/L) Final Performing Location LABORATORY [facility] [place] - [address] [facility] [address]
--- OUTSIDE RECORDS SUMMARY | 2024-11-11 08:37 | External Medical Summary ---
Author Name Unknown Address Unknown Organization K01:LAB[place]ATORY [facility] [place] [address] [place] [address] Laboratory Report Ordering Provider Test Date Status KEELY GARCIA 10/22/2024 18:47:00 Final Observation Date Value Abnormality Reference (Units ) Status Troponin T 10/22/2024 18:47:00 <6 <=14 (ng/ L) Final Performing Location LAB[facility] - [address] [place] [address]
--- OUTSIDE RECORDS SUMMARY | 2024-11-11 08:37 | External Medical Summary ---
Author Name Unknown Address Unknown Organization K01:LABORATORY [facility] [place] - [address] [facility] [address] Laboratory Report Ordering Provider Test Date Status SAMUEL MARRERO 10/24/2024 08:12:00 Final Observation Date Value Abnormality Reference (Units ) Status WBC, Total 10/24/2024 08:12:00 10.94 Above high normal 4.00-10.80 (K/uL) Final RBC 10/24/2024 08:12:00 3.52 3.85-5.15 (M/uL) Final Hemoglobin 10/24/2024 08:12:00 10.8 Below low normal 12.0-15.3 (g/dL) Final HCT 10/24/2024 08:12:00 35.8 Below low normal 36.0-45.2 (%) Final MCV 10/24/2024 08:12:00 101.7 81.5-97.5 (fL) Final MCH 10/24/2024 08:12:00 30.7 27.0-34.0 (pg) Final MCHC 10/24/2024 08:12:00 30.2 32.0-36.0 (g/dL) Final RDW 10/24/2024 08:12:00 13.2 11.5-15.5 (%) Final Platelets 10/24/2024 08:12:00 186 140-400 (K/uL) Final MPV 10/24/2024 08:12:00 10.2 6.6-11.1 (fL) Final Nucleated erythrocytes/100 leukocytes [Ratio] in Blood by Automated count 10/24/2024 08:12:00 0 <=0 (/100 WBCs) Final Performing Location LABORATORY [facility] [place] - [address] [place] [address]
--- OUTSIDE RECORDS SUMMARY | 2024-11-11 08:37 | External Medical Summary ---
Author Name Unknown Address Unknown Organization K01:[facility]ORY [facility] [place] [address] [facility] [address] Laboratory Report Ordering Provider Test Date Status SAMUEL MARRERO 10/23/2024 00:01:08 Final ADMITTED patient Observation Date Value Abnormality Reference (Units ) Status Adenovirus DNA [Presence] in Nasopharynx by TENA with non-probe detection 10/23/2024 00:01:08 Negative Negative Final Human coronavirus 229E RNA [Presence] in Nasopharynx by TENA with non-probe detection 10/23/2024 00:01:08 Negative Negative Final Human coronavirus HKU1 RNA [Presence] in Nasopharynx by TENA with non-probe detection 10/23/2024 00:01:08 Negative Negative Final Human coronavirus NL63 RNA [Presence] in Nasopharynx by TENA with non-probe detection 10/23/2024 00:01:08 Negative Negative Final Human coronavirus OC43 RNA [Presence] in Nasopharynx by TENA with non-probe detection 10/23/2024 00:01:08 Negative Negative Final SARS-CoV-2 (COVID-19) RNA [Presence] in Nasopharynx by TENA with non-probe detection 10/23/2024 00:01:08 Negative Negative Final Human metapneumovirus RNA [Presence] in Nasopharynx by TENA with non-probe detection 10/23/2024 00:01:08 Negative Negative Final Rhinovirus+Enterovirus RNA [Presence] in Nasopharynx by TENA with non-probe detection 10/23/2024 00:01:08 Negative Negative Final Influenza virus A RNA [Presence] in Nasopharynx by TENA with non-probe detection 10/23/2024 00:01:08 Negative Negative Final Influenza virus B RNA [Presence] in Nasopharynx by TENA with non-probe detection 10/23/2024 00:01:08 Negative Negative Final Parainfluenza virus 1 RNA [Presence] in Nasopharynx by TENA with non-probe detection 10/23/2024 00:01:08 Negative Negative Final Parainfluenza virus 2 RNA [Presence] in Nasopharynx by TENA with non-probe detection 10/23/2024 00:01:08 Negative Negative Final Parainfluenza virus 3 RNA [Presence] in Nasopharynx by TENA with non-probe detection 10/23/2024 00:01:08 Negative Negative Final Parainfluenza virus 4 RNA [Presence] in Nasopharynx by TENA with non-probe detection 10/23/2024 00:01:08 Negative Negative Final Respiratory syncytial virus RNA [Presence] in Nasopharynx by TENA with non-probe detection 10/23/2024 00:01:08 Negative Negative Final Bordetella pertussis.pertussis toxin promoter region [Presence] in Nasopharynx by TENA with non-probe detection 10/23/2024 00:01:08 Negative Negative Final Chlamydophila pneumoniae DNA [Presence] in Nasopharynx by TENA with non-probe detection 10/23/2024 00:01:08 Negative Negative Final Mycoplasma pneumoniae DNA [Presence] in Nasopharynx by TENA with non-probe detection 10/23/2024 00:01:08 Negative Negative Final Bordetella parapertussis [id number] DNA [Presence] in Nasopharynx by TENA with non-probe detection 10/23/2024 00:01:08 Negative Negative Final The primers that detect Rhin ovirus may cross react with some Enterorviruses. The validation of bronchial specimens, tracheal aspirates, and throats for this assay was developed and performance characteristics determined by [employer]. �The validation of alternate specimen types has not been cleared or approved by the U.S. Food and Drug Administration (FDA). �It has been determined that such clearance or approval is not necessary. [facility] [place] LABORATORY [facility] [place] [address] [facility] [facility] [address] [address] [facility] [address]
--- OUTSIDE RECORDS SUMMARY | 2024-11-11 08:37 | External Medical Summary ---
Author Name Unknown Address Unknown Organization K01:LABORATORY [facility] [place] - [facility] [address] [facility] [address] Laboratory Report Ordering Provider Test Date Status MALIK MORROW 10/23/2024 06:49:00 Final Observation Date Value Abnormality Reference (Units ) Status Albumin 10/23/2024 06:49:00 3.3 Below low normal 3.8-5.0 (g/dL) Final AST (Aspartate aminotransferase) 10/23/2024 06:49:00 Final Specimen too hemolyzed. Reor pritesh if needed. Alk Phos 10/23/2024 06:49:00 150 Above high normal 35 -130 (U/L) Final Results may be falsely eleva bennett due to hemolysis. ALT (Alanine aminotransferase) 10/23/2024 06:49:00 54 Above high normal 10-35 (U/L) Final Results may be falsely eleva bennett due to hemolysis. Bilirubin, Total 10/23/2024 06:49:00 0.3 <=1 .2 (mg/dL) Final Bilirubin, Direct 10/23/2024 06:49:00 Final Specimen too hemolyzed. Reor pritesh if needed. Protein 10/23/2024 06:49:00 7.6 6.0-8.3 (g /dL) Final Performing Location LABORATORY [facility] [place] - [address] [facility] [address]
--- OUTSIDE RECORDS SUMMARY | 2024-11-11 08:37 | External Medical Summary ---
Author Name Unknown Address Unknown Organization K01:LABORATORY [facility] [place] - [address] [place] [address] Laboratory Report Ordering Provider Test Date Status BETO BRANDT 10/25/2024 07:02:00 Final Observation Date Value Abnormality Reference (Units ) Status BUN 10/25/2024 07:02:00 21 Above high normal 6-20 (mg/dL) Final Creatinine 10/25/2024 07:02:00 1.0 0.5-1.0 (mg/dL) Final Glomerular filtration rate/1.73 sq M.predicted [Volume Rate/Area] in Serum, Plasma or Blood by Creatinine-based formula (CKD-EPI) 10/25/2024 07:02:00 68 >=60 (mL/min) Final eGFR is calculated based on the CKD-EPI 2020 equation. Sodium 10/25/2024 07:02:00 139 135-146 (m mol/L) Final Potassium 10/25/2024 07:02:00 4.7 3.5-5.1 (m mol/L) Final Cl 10/25/2024 07:02:00 98 98-107 (mm ol/L) Final CO2 10/25/2024 07:02:00 31 22-32 (mmo l/L) Final Anion gap 10/25/2024 07:02:00 10 7-15 (mmol /L) Final Glucose 10/25/2024 07:02:00 86 70-120 (mg /dL) Final Albumin 10/25/2024 07:02:00 3.5 Below low normal 3.8 -5.0 (g/dL) Final AST (Aspartate aminotransferase) 10/25/2024 07:02:00 34 10-35 (U/L) Fin al Alk Phos 10/25/2024 07:02:00 124 35-130 (U/ L) Final Bilirubin, Total 10/25/2024 07:02:00 <0.2 <=1 .2 (mg/dL) Final Calcium 10/25/2024 07:02:00 8.8 8.4-10.2 ( mg/dL) Final Protein 10/25/2024 07:02:00 6.7 6.0-8.3 (g /dL) Final ALT (Alanine aminotransferase) 10/25/2024 07:02:00 48 Above high normal 10-35 (U/L) Final Performing Location LABORATORY [facility] [place] - [address] [facility] [address]
--- OUTSIDE RECORDS SUMMARY | 2024-11-11 08:37 | External Medical Summary ---
Author Name Unknown Address Unknown Organization K01:LABORATORY [facility] [place] - [address] [place] [address] Laboratory Report Ordering Provider Test Date Status ANA HOUSTON 10/23/2024 06:49:00 Final Exclude Heart Failure: <300 pg/mL
Diagnose Heart Failure:
Age <50 yr: >450 pg/mL
50-75 yr: >900 pg/mL
>75 yr: >1800 pg/mL
GFR is 30-59 mL/min: >1200 pg/mL or Age- adjusted values
GFR <30 mL/min: do not use, not reliable

Prognostic threshold: 1000 pg/mL Observation Date Value Abnormality Reference (Units ) Status BNP, Pro-hormone 10/23/2024 06:49:00 286 <30 0 (pg/mL) Final Performing Location LABORATORY [facility] [place] - [address] [place] [address]
--- OUTSIDE RECORDS SUMMARY | 2024-11-11 08:37 | External Medical Summary ---
Author Name Unknown Address Unknown Organization K01:LABORATORY [facility] [place] - [address] [facility] [address] Laboratory Report Ordering Provider Test Date Status SAMUEL MARRERO 10/23/2024 06:49:00 Final Observation Date Value Abnormality Reference (Units ) Status BUN 10/23/2024 06:49:00 9 6-20 (mg/dL) Final Creatinine 10/23/2024 06:49:00 1.0 0.5-1.0 (mg/dL) Final Glomerular filtration rate/1.73 sq M.predicted [Volume Rate/Area] in Serum, Plasma or Blood by Creatinine-based formula (CKD-EPI) 10/23/2024 06:49:00 68 >=60 (mL/min) Final eGFR is calculated based on the CKD-EPI 2020 equation. Sodium 10/23/2024 06:49:00 135 135-146 (m mol/L) Final Potassium 10/23/2024 06:49:00 Final Specimen too hemolyzed. Reor pritesh if needed. Cl 10/23/2024 06:49:00 96 Below low normal 98- 107 (mmol/L) Final CO2 10/23/2024 06:49:00 29 22-32 (mmo l/L) Final Anion gap 10/23/2024 06:49:00 10 7-15 (mmol /L) Final Glucose 10/23/2024 06:49:00 171 Above high normal 70 -120 (mg/dL) Final Calcium 10/23/2024 06:49:00 9.2 8.4-10.2 ( mg/dL) Final Performing Location LABORATORY [facility] [place] - [address] [facility] [address]
--- OUTSIDE RECORDS SUMMARY | 2024-11-11 08:37 | External Medical Summary | Summary of Care ---
Author Name Unknown Organization [facility] Address [address] [place] [address] Phone [phone] Care Team Providers Care Structured Cabling Technician Name Role Phone Roseann Plummer MD Primary Care Provider Reason for Referral * Evaluate & Treat - Unlimited Visits (Within 3 days (urgent)) - Authorized Specialty Diagnoses / Procedures Referred By Nasir serrano Referred To Contact Addiction Medicine Diagnoses Alcohol use disorder Rubén Mcrae DO [address] [place] [address] Phone: tel: fax: Referral ID Status Reason Start Date Expiration Date Visits Requested Visits Authorized [id number] Authorized Specialty Services Required 10/28/2024 999 [id number] Question Answer Referral Priority Within 3 days (urgent) Where should this appointment be scheduled? [facility] Was the patient hospitalized for their addiction in the past in the past 6 months? Yes Did this include Endocarditis or Soft Tissue Infection? No Has the patient overdosed on any substance in the past? Unknown Is the Patient ? No Reason for Referral: Alcohol Comments Currently follows with Methadone clinic in [place]. Would like to have both Methadone and AUD care at same location Discharge Order Reason for Visit * Reason Comments Short of Breath * Auth/Cert Specialty Diagnoses / Procedures Referred By Nasir serrano Referred To Contact [facility] [address] [place] [address] Phone: tel:[phone] [facility]) Emergency Department ([facility]) [address] [place] [address] Phone: tel: fax: Referral ID Status Reason Start Date Expiration Date Visits Re quested Visits Authorized [id number] Encounter Details Date Type Department Care Team (Late st Contact Info) Description 10/22/2024 6:53 PM EDT - 10/28/2024 2:47 PM EDT Hospital Encounter [id number] [facility], [address] [place] [address] Fabian Zuleta MD [address] [place] [address] Edinson Han MD [address], [place] [id number] Navarro Jarrell MD [address] [place] [address] Grant Self DO [address] [place], [place] [id number] Various: KRAVS,CDIQDC,EKG Discharge Disposition: Home - Self Care Allergies Active Allergy Reactions Criticality Noted Date Comments Buspirone Rash 11/01/2022 documented as of this encounter (statuses as of 10/29/2024) Medications methADONE 10 MG Tablet Take 1 [...] on the skin daily. 28 Patch 5 Active Metoprolol Succinate ER 25 MG Oral Tablet Extended Release 24 Hour (toPROL XL)Indications:HT N, goal below 130/80 take 1 tablet by mouth twice a day 180 Tablet 2 Active amLODIPine Besylate 10 MG Oral Tablet [...] with breakfast. 90 Tablet 1 024 Active Pantoprazole Sodium 40 MG Oral Tablet Delayed Release (Protonix) Take 1 Tablet by mouth in the morning. 90 Tablet 1 024 Active Additional Information Patient not taking.Reported on 10/23/2024 Albuterol Sulfate HFA 108 (90 Base) MCG/ACT [...] Do not drive. 2 Tablet 025 Active hydrOXYzine HCl 25 MG Oral Tablet [...] 12 5 2:38 PM EDT 025 Active Thiamine HCl 100 MG Oral Tablet (vitamin [...] 3 5 2:38 PM EDT 025 Active Sertraline HCl 50 MG Oral Tablet (Zoloft) Take 1 Tablet by mouth in the morning. 2024 Discontinued predniSONE 5 MG Oral Tablet (Deltasone) TAKE 8 TABLETS BY MOUTH ONCE DAILY FOR 3 DAYS, THEN 7 TABLETS DAILY FOR 3 DAYS, THEN DECREASE BY 1 TABLET EVERY 3 DAYS UNTIL FINISHED 025 2024 Discontinued Hospital, Clinic, or Other Facility Administered Medication Ordered Dose Route Frequency Start Date End Date Status Albuterol Sulfate (Proventil) (2.5 MG/3ML) 0.083% inhalation solution 2.5 mgIndications:COPD, mild (HCC) 2.5 mg NEBULIZER PRN 10/11/2022 Active documented as of this encounter (statuses as of 10/29/2024) Active Problems Problem Noted Date Diagnosed Date [...] as of this encounter (statuses as of 10/29/2024) Resolved Problems Problem Noted Date Diagnosed Date [...] as of this encounter (statuses as of 10/29/2024) Immunizations Name Administration Dates Next Due Pneumococcal [...] No 05/20/2024 Does the household have a [facility] source of income? (Household - for [...] Sign Reading Time Taken Comments Blood Pressure 119/66 10/28/2024 11:51 AM EDT Pulse 66 10/28/2024 11:51 AM EDT Temperature 37.2 °C (98.9 °F) 10/28/2024 1 1:51 AM EDT Respiratory Rate 18 10/28/2024 11:5 1 AM EDT Oxygen Saturation 95% 10/28/2024 11: 51 AM EDT Inhaled Oxygen Concentration - - Weight 103.8 kg (228 lb 14.4 oz) 10/28/2024 3:00 AM EDT Height 172.7 cm (5' 8") 10/23/2024 2:33 AM EDT Body Mass Index 34.8 10/23/2024 2:33 AM EDT documented in this encounter Functional [...] Marcela Rodriguez RN documented in this encounter Discharge Instructions * Discharge Instr - AVS* Rubén Mcrae DO - 10/28/2024 11:45 AM EDT Discharge Date: 10/28/2024 The information below provides you with the instructions and the list of medications you need to betaking following discharge from the hospital. If you have any questions, please ask before leaving. If you have questions after leaving, you can reach us at the numbers below. YOUR HOSPITAL PROVIDERS: Discharging Provider: Grant Self DO Provider Department: Hospital Medicine To reach this Provider Saturday through Saturday (8:00 AM to 4:30 PM) for any questions or test results: Call [phone] For after-hours concerns: Call [phone] and have your provider paged, or the provider surgery consultant for the Department of Hospital Medicine paged. Please note, the discharging provider will not be able to provide you with any medications refills.Please discuss these with your primary care provider. Worsening Symptoms: If you have new symptoms, or your symptoms get worse, please contact your Discharge Provider or Primary Care Provider (PCP). If these providers are not available, you can go to your [facility] or [facility] Clinic during their business hours. In an EMERGENCY situation: Call [phone] or go to the nearest emergency room. A BRIEF SUMMARY OF YOUR HOSPITAL STAY: You came to the hospital with: Ongoing shortness of breath that was concerning for a COPD exacerbation. You were started on steroids and will complete an extended course of steroids. You were also started on new inhalers to help manage your COPD. There was concern that you were actively experiencing alcohol withdrawal. Your symptoms were managed with Ativan. You expressed interest of alcohol cessation and were referred to the mailing machine assistant program at discharge. Your main diagnosis at discharge was: COPD exacerbation, acute alcohol withdrawal Operations & Procedures performed: none Complications: none applicable Inpatient test results that are pending at discharge: none Advance Directive Documented: Advance Directive Does the Patient have an Advance Directive? No YOUR FOLLOW UP APPOINTMENTS: Primary Care Provider Information: PCP: Roseann Plummer MD [address] [place] [address] / Zachary GARCIA [phone] (office) [phone] (fax) An appointment was requested with your PCP (Roseann Plummer MD) within 7 days. (Please take this form to this visit with your primary care physician.) A follow up appointment was requested with your clay plant treater within 10 days. A referral to the mailing machine assistant treatment team was requested. You need the following studies in the future: none INSTRUCTIONS: The following changes were made to your medications: Please START taking the following medications: - Budesonide (Pulmicort) 0.25 mg via nebulizer every 12 hours, this medication may be increased by your Chamfering Machine Operator - Umeclidinium-Vilanterol (ANORO ellipta) 62.5-25 MCG/ACT 1 puff daily, this medication may be increased by your Chamfering Machine Operator - Thiamine 100 mg daily - Your extended prednisone taper will require 2 days of 30 mg once daily, followed by 3 days of 20 mg once daily, followed by 3 days of 10 mg once daily Please CHANGE how you take the following medications: - Your sertraline was increased from 50 mg once daily to 100 mg once daily Please continue taking all of your other previously prescribed medications as directed by your doctors. You should discuss your Eliquis medication with your PCP and Chamfering Machine Operator. Diet: Normal diet Activity: No restrictions COPD DISCHARGE INSTRUCTIONS HOW DO YOU FEEL TODAY? ALL CLEAR You are feeling well * Your breathing feels normal for you * The color of your phlegm is clear or white * You can do your normal activities without unusual tiredness or shortness of breath * Your appetite is normal * You are sleeping like you normally do * You can think clearly What you should do: * Take your daily medicines as prescribed * Eat healthy foods * Be active every day * Include some exercise, like walking, in your daily routine * Balance your activity with rest periods * Do not smoke. Make your home and car smoke free. Stay away from smoky areas. CAUTION You are feeling worse: * You are more short of breath * You are wheezing or coughing more than usual * You notice changes in your phlegm (thicker, color, amount) * You are using your rescue inhaler (the fast acting one) or your nebulizer more often than usual * You are more tired and cannot do your usual activities * You have a fever and chills * You are sleeping abnormally * Your symptoms wake you up What you should do: * Limit your activities * Make sure your oxygen system, if you have one, is working properly * Make sure you have been taking your medicines. Have you forgotten any today? * Eat smaller meals more often during the day rather than 3 big meals * Use your nebulizer or rescue inhaler (fast acting one), as prescribed CALL YOUR FAMILY DOCTOR !! EMERGENCY You feel you are in DANGER! * You have severe shortness of breath (You feel like you cannot breathe or catch your breath while resting) * Hard and fast breathing * Hard to walk and talk in complete sentences * You have chest pain * Your heart rate or pulse is very fast * You feel faint * You are sleepier than normal and have difficulty staying awake * You feel confused or are very drowsy * Your speech is slurred * You have bluish color to your lips or fingernails * Your medicine is not helping What you should do: CALL 911 OR GO TO THE HOSPITAL EMERGENCY ROOM !! documented in this encounter Progress Notes * Rubén Mcrae DO - 10/27/2024 3:06 PM EDT PROGRESS NOTE - Medicine [address] [address] [facility] A536/A Name: Bhumika Flores Location: [facility] B730/A Date: 10/27/2024 Time: 3:08 PM Date of admission: 10/22/2024 Hospital length of stay: 5 days Subjective: Overnight Events: No acute events Patient seen and examined at bedside. Feels her breathing is much improved from when she 1st presented. She does again feel jittery today. Seen later in the day and reports some issues with anxiety being the reason for her drinking. She is still interested in cessation. Discussed with her a referral to the MAT Clinic and she is agreeable as long as the clinic is in [place]. All systems were reviewed, all pertinent findings were documented above, otherwise negative. Objective: Most Recent Vital Signs: BP: 111 mmHg/57 mmHg (10/27/24 1459) Pulse: 62 (04/01/25 1459) Resp: 18 (10/27/241458) Temp: 36.78 C (10/27/241458) Temp Summary: Temp Min: 35.8 °C (96.4 °F) Max: 37 °C (98.6 °F) SpO2: 96 % (10/27/241458) O2 flow rate: 4 L/MIN (10/27/241458) Supplemental O2 Delivery: Nasal Cannula (10/27/241458) Intake & Output Summary (Last 24 hours): Intake/Output Summary (Last 24 hours) at 10/27/2024 1508 Last data filed at 10/26/2024 1820 Gross per 24 hour Intake 240 ml Output -- Net 240 ml Net IO Since Admission: 290 mL [10/23/24720] Physical Exam: General: In no acute distress, sitting upright in bed, lethargic Neuro: no focal deficits appreciated, following commands, answers questions appropriately HEENT: Normocephalic and atraumatic, pupils are equal, round and reactive to light, moist mucous membranes CV: Regular rate and rhythm; no murmurs, no JVD Resp: Normal respiratory effort, diffuse expiratory wheezing more prominent compared to prior day GI: bowel sounds present, abdomen is soft MSK: no peripheral edema Skin: warm, dry and intact, facial redness Psych: Normal mood and affect Lines / Drains / Tubes: LINES ALL Duration Peripheral Line Left;Upper Arm 20 Gauge 4 days Laboratory Values: reviewed -- Brief labs below include the 7 most recent results over the past week. Blood Gas: Lab results within last 7 days (see chart for full results) Units 10/23/24 0955 10/23/24 0649 10/22/24 1847 pH, Venous units 7.322 7.309* 7.341 pCO2, Venous mmHg 70.7* 71.0* 64.0* pO2, Venous mmHg 56.9* 59.9* 50.0 Base Excess, Venous mmol/L 7.8* 6.3* 6.4* Chemistry Panel: Lab results within last 7 days (see chart for full results) Units 10/26/24 0636 10/25/24 0702 10/24/24 0812 10/23/24 0649 10/22/24 1847 SODIUM mmol/L 137 139 139 135 137 POTASSIUM mmol/L 4.8 4.7 4.6 -- 4.3 CHLORIDE mmol/L 97* 98 96* 96* 97* CO2 mmol/L 27 31 34* 29 27 EGFR mL/min 78 68 65 68 80 BUN mg/dL 20 21* 21* 9 5* CREATININE mg/dL 0.9 1.0 1.0 1.0 0.9 GLUCOSE mg/dL 74 86 105 171* 126* CALCIUM mg/dL 8.7 8.8 9.0 9.2 9.3 Magnesium mg/dL -- -- 2.4 2.2 -- Phosphorus mg/dL -- -- 4.3 3.7 -- ANION GAP mmol/L 13 10 9 10 13 Complete Blood Count: Lab results within last 7 days (see chart for full results) Units 10/27/24 0528 10/26/24 0731 10/24/24 0812 10/23/24 0649 10/22/24 1847 WBC K/uL 11.27* 11.50* 10.94* 9.63 11.52* HGB g/dL 11.3* 11.1* 10.8* 11.6* 12.5 HCT % 37.1 36.9 35.8* 38.0 40.0 PLT K/uL 284 178 186 164 165 MCV fL 101.9 102.2 101.7 100.3 99.5 Cardiac Studies: Lab results within last 7 days (see chart for full results) Units 10/23/24 0649 10/22/24 1847 Troponin T, High Sensitivity ng/L -- <6 BNP, NT-Pro pg/mL 286 -- Coagulation Studies: No results in the last 7 days - inpatent use only Liver Function Panel: Lab results within last 7 days (see chart for full results) Units 10/26/24 0636 10/25/24 0702 10/23/24 0649 10/22/24 1847 Albumin g/dL 2.9* 3.5* 3.3* 3.6* Protein g/dL 6.4 6.7 7.6 7.4 Bilirubin, Total mg/dL <0.2 <0.2 0.3 0.2 AST U/L 46* 34 -- 49* ALT U/L 46* 48* 54* 53* Alkaline Phosphatase U/L 125 124 150* 161* Infectious Studies: Lab results within last 7 days (see chart for full results) Units 10/22/24 1847 Procalcitonin ng/mL 0.11* Cultures: reviewed. Lab results within last 7 days (see chart for full results) Units 10/23/24 0001 Coronavirus SARS-CoV-2 Negative Recent Cultures (2 Weeks) No lab values to display. Radiographic Studies (last 72 hours): reviewed. No imaging results in the last 72 hours Assessment/Plan: Active Problems: Tobacco use disorder (POA: Yes) Chronic obstructive pulmonary disease with (acute) exacerbation (HCC) (POA: Yes) Pulmonary emboli (HCC) (POA: Yes) Restless legs syndrome (RLS) (POA: Yes) Pulmonary hypertension due to left heart disease (HCC) (POA: Yes) Opioid dependence in remission (HCC) (POA: Yes) Alcohol use disorder (POA: Yes) Chronic anticoagulation (POA: Yes) POA = Present On Admission Bhumika Flores is a 59 year old female with PMHx of COPD on 4L O2 baseline, HTN, obesity, TUD, methadone use, pulm HTN, DLD, Hx PE, anxiety who is admitted for an acute COPD exacerbation as well as acute alcohol withdrawal. Acute COPD exacerbation Acute on chronic hypercarbic hypoxic respiratory failure COPD, GOLD 2 Uncontrolled CHARLENE Stable on baseline 4 L O2. Remains off antibiotics. Continue prednisone taper with 30 mg daily for 2 days, 20 mg daily for 2 days, 10 mg daily for 2 days. Continue Pulmicort 0.25 mg twice daily Continue Anoro Ellipta 62.5-25mcg 1 puff daily Continue respiratory supportive therapies DuoNebs q.4 hours with Proventil q.4 hours PRN Incentive spirometry Flutter therapy Has outpatient Pulmonology follow up scheduled for 3 months Encouraged CPAP adherence Acute Alcohol withdrawal Discontinue CIWA protocol, out of the window for acute withdrawal Last drink 10/22 One time dose of Ativan this afternoon for anxiety Continue MVI, thiamine, folate Will place referral to the MAT clinic who may manage her alcohol cessation and methadone use Chronic methadone use Confirmed with methadone Clinic Continue 100 mg daily Follows Q 2 weekly He will contact clinic to see if they are able to medically manage alcohol cessation Chronic Problems: Anxiety: Continue CATERING AND EVENTS MANAGER Atarax 25mg TiD prn, Continue CATERING AND EVENTS MANAGER Sertraline 50mg AM daily, consider additional therapies such as BuSpar Vitamins: Hold CATERING AND EVENTS MANAGER magnesium oxide 400mg, potassium ER 20 BID Hx DVT/PE: Continue CATERING AND EVENTS MANAGER Eliquis BID, per outpatient Pulmonology documentation patient may discontinue Eliquis pending the results of her vascular study, will address outpatient GERD: Hold CATERING AND EVENTS MANAGER Protonix, patient reports not taking HTN: Continue CATERING AND EVENTS MANAGER Amlodipine 10mg daily, Continue Torprol 25mg BID HFpEF: Continue CATERING AND EVENTS MANAGER Lasix 40mg QD TUD: Continue Nicotine patch Misc: Diet: Regular Bowel Regimen: PRN Last Bowel Movement: 10/26/24 (pt flush) (10/26/24 1056) Stool Description: Other - Describe (no stool to assess at this time) (10/26/24 2100) Ernandez: None PT/OT: Consult placed, AM-PAC 18 VTE Prophylaxis: CATERING AND EVENTS MANAGER Eliquis Code Status: Full Anticipated Discharge: Tomorrow, home List of services consulted/following: ADULT PHYSICAL THERAPY CONSULT IP ADULT OCCUPATIONAL THERAPY CONSULT IP Patient was discussed with attending physician, MD Rubén Burgos DO Resident Physician This chart was completed in part utilizing [employer] Speech Voice Recognition Software. Grammatical errors, random word insertions, pronoun errors, and incomplete sentences are an occasional consequence of this system due to software limitations, ambient noise, and hardware issues. Any formal questions or concerns about the content, text, or information contained within the body of this dictation should be directly addressed to the provider for clarification. Cosigned by Navarro Jarrell MD at 10/27/2024 3:25 PM EDT Associated attestation - Navarro Jarrell MD - 10/27/2024 3:25 PM EDT I saw and evaluated the patient today. I have reviewed the resident/fellow physician note and agree. No acute events overnight. Continues to require p.r.n. Ativan for withdrawal symptoms. Still has ongoing significant wheezing. Will extend taper of prednisone. Is now on baseline oxygen requirement. Initially discontinued CIWA monitoring this morning given at the tail end of the withdrawal window however patient became anxious this afternoon. It is unclear to me whether this represents poorly controlled anxiety or actual acute alcohol withdrawal. She has no evidence of tachycardia or hypertension. She was not diaphoretic. Will give 1 time dose of Ativan and reassess. If continued concern foractive/acute alcohol withdrawal, can restart CIWA protocol if needed. Remainder of plan per resident note. I spent a total of 37 minutes coordinating, documenting, and providing care for this patient excluding time spent in the performance of separately billed services or time spent by another provider/QHP. * Rubén Mcrae, DO - 10/26/2024 7:08 AM EDT PROGRESS NOTE - Medicine [facility] [address] [facility] [address] [facility] A536/A Name: Bhumika Flores Location: [facility] B730/B Date: 10/26/2024 Time: 1:38 PM Date of admission: 10/22/2024 Hospital length of stay: 4 days Subjective: Overnight Events: No acute events Patient seen and examined at bedside. Feels her breathing is greatly improved. Looking forward to discharge. Discussed having our substance use specialist come and speak with the patient regarding alcohol cessation. She is open to this conversation. Lives in [place] prefer something close to home. All systems were reviewed, all pertinent findings were documented above, otherwise negative. Objective: Most Recent Vital Signs: BP: 126 mmHg/71 mmHg (10/26/24 1014) Pulse: 61 (10/26/24 1014) Resp: 20 (10/26/24 1104) Temp: 36.72 C (10/26/24 1014) Temp Summary: Temp Min: 36.5 °C (97.7 °F) Max: 36.8 °C (98.2 °F) SpO2: 95 % (10/26/24 1104) O2 flow rate: 4 L/MIN (10/26/24 1104) Supplemental O2 Delivery: Nasal Cannula (10/26/24 110) Intake & Output Summary (Last 24 hours): Intake/Output Summary (Last 24 hours) at 10/26/2024 1338 Last data filed at 10/26/2024 0800 Gross per 24 hour Intake 320 ml Output 1000 ml Net -680 ml Net IO Since Admission: 290 mL [10/23/24 0721] Physical Exam: General: In no acute distress, sitting upright in bed Neuro: no focal deficits appreciated, following commands, answers questions appropriately HEENT: Normocephalic and atraumatic, pupils are equal, round and reactive to light, moist mucous membranes CV: Regular rate and rhythm; no murmurs, no JVD Resp: Normal respiratory effort, improved diffuse expiratory wheezing GI: bowel sounds present, abdomen is soft MSK: no peripheral edema Skin: warm, dry and intact Psych: Normal mood and affect Lines / Drains / Tubes: LINES ALL Duration Peripheral Line Left;Upper Arm 20 Gauge 3 days Laboratory Values: reviewed -- Brief labs below include the 7 most recent results over the past week. Blood Gas: Lab results within last 7 days (see chart for full results) Units 10/23/24 0955 10/23/24 0649 10/22/24 1847 pH, Venous units 7.322 7.309* 7.341 pCO2, Venous mmHg 70.7* 71.0* 64.0* pO2, Venous mmHg 56.9* 59.9* 50.0 Base Excess, Venous mmol/L 7.8* 6.3* 6.4* Chemistry Panel: Lab results within last 7 days (see chart for full results) Units 10/26/24 0636 10/25/24 0702 10/24/24 0812 10/23/24 0649 10/22/24 1847 SODIUM mmol/L 137 139 139 135 137 POTASSIUM mmol/L 4.8 4.7 4.6 -- 4.3 CHLORIDE mmol/L 97* 98 96* 96* 97* CO2 mmol/L 27 31 34* 29 27 EGFR mL/min 78 68 65 68 80 BUN mg/dL 20 21* 21* 9 5* CREATININE mg/dL 0.9 1.0 1.0 1.0 0.9 GLUCOSE mg/dL 74 86 105 171* 126* CALCIUM mg/dL 8.7 8.8 9.0 9.2 9.3 Magnesium mg/dL -- -- 2.4 2.2 -- Phosphorus mg/dL -- -- 4.3 3.7 -- ANION GAP mmol/L 13 10 9 10 13 Complete Blood Count: Lab results within last 7 days (see chart for full results) Units 10/26/24 0731 10/24/24 0812 10/23/24 0649 10/22/24 1847 WBC K/uL 11.50* 10.94* 9.63 11.52* HGB g/dL 11.1* 10.8* 11.6* 12.5 HCT % 36.9 35.8* 38.0 40.0 PLT K/uL 178 186 164 165 MCV fL 102.2 101.7 100.3 99.5 Cardiac Studies: Lab results within last 7 days (see chart for full results) Units 10/23/24 0649 10/22/24 1847 Troponin T, High Sensitivity ng/L -- <6 BNP, NT-Pro pg/mL 286 -- Coagulation Studies: No results in the last 7 days - inpatent use only Liver Function Panel: Lab results within last 7 days (see chart for full results) Units 10/26/24 0636 10/25/24 0702 10/23/24 0649 10/22/24 1847 Albumin g/dL 2.9* 3.5* 3.3* 3.6* Protein g/dL 6.4 6.7 7.6 7.4 Bilirubin, Total mg/dL <0.2 <0.2 0.3 0.2 AST U/L 46* 34 -- 49* ALT U/L 46* 48* 54* 53* Alkaline Phosphatase U/L 125 124 150* 161* Infectious Studies: Lab results within last 7 days (see chart for full results) Units 10/22/24 1847 Procalcitonin ng/mL 0.11* Cultures: reviewed. Lab results within last 7 days (see chart for full results) Units 10/23/24 0001 Coronavirus SARS-CoV-2 Negative Recent Cultures (2 Weeks) No lab values to display. Radiographic Studies (last 72 hours): reviewed. No imaging results in the last 72 hours Assessment/Plan: Active Problems: Tobacco use disorder (POA: Yes) Chronic obstructive pulmonary disease with (acute) exacerbation (HCC) (POA: Yes) Pulmonary emboli (HCC) (POA: Yes) Restless legs syndrome (RLS) (POA: Yes) Pulmonary hypertension due to left heart disease (HCC) (POA: Yes) Opioid dependence in remission (HCC) (POA: Yes) Alcohol use disorder (POA: Yes) Chronic anticoagulation (POA: Yes) POA = Present On Admission Bhumika Flores is a 59 year old female with PMHx of COPD on 4L O2 baseline, HTN, obesity, TUD, methadone use, pulm HTN, DLD, Hx PE, anxiety who is admitted for acute COPD exacerbation and acute alcohol withdrawal. Acute COPD exacerbation Acute on chronic hypercarbic hypoxic respiratory failure COPD, GOLD 2 Uncontrolled CHARLENE She has been weaned back to her baseline 4 L O2. No concerns for infection at this time and remainsoff antibiotics. Her respiratory status has remained stable and on physical exam her expiratory wheezing has improved. Continue prednisone 40 mg daily, last dose today we will complete extended steroid taper with 30 mgdaily for 2 days, 20 mg daily for 2 days, 10 mg daily for 2 days. Start Pulmicort 0.25 mg twice daily Start Anoro Ellipta 62.5-25mcg 1 puff daily Continue respiratory supportive therapies DuoNebs q.4 hours with Proventil q.4 hours PRN Respiratory driven protocol Incentive spirometry Flutter therapy Has outpatient Pulmonology follow up scheduled for 3 months Encouraged CPAP adherence Acute Alcohol withdrawal Continue CIWA protocol, out of the window as of tomorrow Last drink 10/22 Has used 10 mg of Ativan over the last 24 hours Continue MVI, thiamine, folate Patient to be seen by substance use team today Chronic methadone use Confirmed with methadone Clinic, patient on 100 mg daily and follows Q 2 weekly, continued Chronic Problems: Anxiety: Continue CATERING AND EVENTS MANAGER Atarax 25mg TiD prn, Continue CATERING AND EVENTS MANAGER Sertraline 50mg AM daily Vitamins: Hold CATERING AND EVENTS MANAGER magnesium oxide 400mg, potassium ER 20 BID Hx DVT/PE: Continue CATERING AND EVENTS MANAGER Eliquis BID, per outpatient Pulmonology documentation patient may discontinue Eliquis pending the results of her vascular study, will address outpatient GERD: Hold CATERING AND EVENTS MANAGER Protonix, patient reports not taking HTN: Continue CATERING AND EVENTS MANAGER Amlodipine 10mg daily, Continue Torprol 25mg BID HFpEF: Continue CATERING AND EVENTS MANAGER Lasix 40mg QD TUD: Continue Nicotine patch Misc: Diet: Regular Bowel Regimen: PRN Last Bowel Movement: 10/26/24 (pt flush) (10/26/24 1056) Ernandez: None PT/OT: Consult placed, AM-PAC 18 VTE Prophylaxis: CATERING AND EVENTS MANAGER Eliquis Code Status: Full Anticipated Discharge: Likely tomorrow, home List of services consulted/following: ADULT PHYSICAL THERAPY CONSULT IP ADULT OCCUPATIONAL THERAPY CONSULT IP Patient was discussed with attending physician, MD Rubén Burgos DO Resident Physician This chart was completed in part utilizing [employer] Speech Voice Recognition Software. Grammatical errors, random word insertions, pronoun errors, and incomplete sentences are an occasional consequence of this system due to software limitations, ambient noise, and hardware issues. Any formal questions or concerns about the content, text, or information contained within the body of this dictation should be directly addressed to the provider for clarification. Cosigned by Navarro Jarrell MD at 10/26/2024 1:54 PM EDT Associated attestation - Navarro Jarrell MD - 10/26/2024 1:54 PM EDT I saw and evaluated the patient today. I have reviewed the resident/fellow physician note and agree. Slowly improving each day. Continues to have wheezing but much improved from prior. Now on baselineoxygen requirement. Continue aggressive pulmonary hygiene and scheduled nebs. Continue steroid. Will benefit from prolonged steroid taper. Still an active acute withdrawal window. Ativan requirements decreasing. Continue to monitor on CIWA with p.r.n. Ativan. Likely medically stable for discharge in next 1-2 days. Remainder of plan per resident note. I spent a total of 51 minutes coordinating, documenting, and providing care for this patient excluding time spent in the performance of separately billed services or time spent by another provider/QHP. * Rubén Mcrae DO - 10/25/2024 7:07 AM EDT PROGRESS NOTE - Medicine [address] [id number] [facility] A536/A Name: Bhumika Flores Location: [facility] [place] B730/B Date: 10/25/2024 Time: 12:02 PM Date of admission: 10/22/2024 Hospital length of stay: 3 days Subjective: Overnight Events: Admitted Patient seen and examined at bedside. Enjoying breakfast at a time of examination. She is still endorses some shortness of breath and wheezing. Still has a jittery sensation since she has not been consuming alcohol. Asking about her methadone dose. All systems were reviewed, all pertinent findings were documented above, otherwise negative. Objective: Most Recent Vital Signs: BP: 126 mmHg/64 mmHg (10/25/24 1033) Pulse: 65 (10/25/24 103) Resp: 20 (10/25/24 103) Temp: 36.78 C (10/25/24 103) Temp Summary: Temp Min: 36.6 °C (97.8 °F) Max: 37.4 °C (99.4 °F) SpO2: 91 % (10/25/24 103) O2 flow rate: 4 L/MIN (10/25/24 0900) Supplemental O2 Delivery: Nasal Cannula (10/25/24 103) Intake & Output Summary (Last 24 hours): Intake/Output Summary (Last 24 hours) at 10/25/2024 1202 Last data filed at 10/24/2024 1707 Gross per 24 hour Intake 352 ml Output -- Net 352 ml Net IO Since Admission: 290 mL [10/23/24 0721] Physical Exam: General: In no acute distress, sitting upright in bed Neuro: no focal deficits appreciated, following commands, answers questions appropriately HEENT: Normocephalic and atraumatic, pupils are equal, round and reactive to light, moist mucous membranes CV: Regular rate and rhythm; no murmurs, no JVD Resp: Normal respiratory effort, diffuse expiratory wheezing heard in all lung phillips, wheezing is audible without the use of stethoscope GI: bowel sounds present, abdomen is soft MSK: no peripheral edema Skin: warm, dry and intact Psych: Tearful Lines / Drains / Tubes: LINES ALL Duration Peripheral Line Left;Upper Arm 20 Gauge 2 days Laboratory Values: reviewed -- Brief labs below include the 7 most recent results over the past week. Blood Gas: Lab results within last 7 days (see chart for full results) Units 10/23/24 0955 10/23/24 0649 10/22/24 1847 pH, Venous units 7.322 7.309* 7.341 pCO2, Venous mmHg 70.7* 71.0* 64.0* pO2, Venous mmHg 56.9* 59.9* 50.0 Base Excess, Venous mmol/L 7.8* 6.3* 6.4* Chemistry Panel: Lab results within last 7 days (see chart for full results) Units 10/25/24 0702 10/24/24 0812 10/23/24 0649 10/22/24 1847 SODIUM mmol/L 139 139 135 137 POTASSIUM mmol/L 4.7 4.6 -- 4.3 CHLORIDE mmol/L 98 96* 96* 97* CO2 mmol/L 31 34* 29 27 EGFR mL/min 68 65 68 80 BUN mg/dL 21* 21* 9 5* CREATININE mg/dL 1.0 1.0 1.0 0.9 GLUCOSE mg/dL 86 105 171* 126* CALCIUM mg/dL 8.8 9.0 9.2 9.3 Magnesium mg/dL -- 2.4 2.2 -- Phosphorus mg/dL -- 4.3 3.7 -- ANION GAP mmol/L 10 9 10 13 Complete Blood Count: Lab results within last 7 days (see chart for full results) Units 10/24/24 0812 10/23/24 0649 10/22/24 1847 WBC K/uL 10.94* 9.63 11.52* HGB g/dL 10.8* 11.6* 12.5 HCT % 35.8* 38.0 40.0 PLT K/uL 186 164 165 MCV fL 101.7 100.3 99.5 Cardiac Studies: Lab results within last 7 days (see chart for full results) Units 10/23/24 0649 10/22/24 1847 Troponin T, High Sensitivity ng/L -- <6 BNP, NT-Pro pg/mL 286 -- Coagulation Studies: No results in the last 7 days - inpatent use only Liver Function Panel: Lab results within last 7 days (see chart for full results) Units 10/25/24 0702 10/23/24 0649 10/22/24 1847 Albumin g/dL 3.5* 3.3* 3.6* Protein g/dL 6.7 7.6 7.4 Bilirubin, Total mg/dL <0.2 0.3 0.2 AST U/L 34 -- 49* ALT U/L 48* 54* 53* Alkaline Phosphatase U/L 124 150* 161* Infectious Studies: Lab results within last 7 days (see chart for full results) Units 10/22/24 1847 Procalcitonin ng/mL 0.11* Cultures: reviewed. Lab results within last 7 days (see chart for full results) Units 10/23/24 0001 Coronavirus SARS-CoV-2 Negative Recent Cultures (2 Weeks) No lab values to display. Radiographic Studies (last 72 hours): reviewed. CT CHEST W CONTRAST Result Date: 10/22/2024 IMPRESSION Faint ground-glass and tree-in-bud opacities throughout both lungs. XR CHEST 2 VIEWS Result Date: 10/22/2024 IMPRESSION Hazy opacity overlying the left lower lobe, trace left pleural effusion, which may represent pneumonia or aspiration. Assessment/Plan: Principal Problem: Acute on chronic respiratory failure with hypoxia and hypercapnia (HCC) (POA: Yes) Active Problems: Tobacco use disorder (POA: Yes) Chronic obstructive pulmonary disease with (acute) exacerbation (HCC) (POA: Yes) Pulmonary emboli (HCC) (POA: Yes) Restless legs syndrome (RLS) (POA: Yes) Pulmonary hypertension due to left heart disease (HCC) (POA: Yes) Opioid dependence in remission (HCC) (POA: Yes) Alcohol use disorder (POA: Yes) Chronic anticoagulation (POA: Yes) Acute on chronic heart failure with preserved ejection fraction (HCC) (POA: Yes) POA = Present On Admission Bhumika Flores is a 59 year old female with PMHx of COPD on 4L O2 baseline, HTN, obesity, TUD, methadone use, pulm HTN, DLD, Hx PE, anxiety who is admitted for COPD exacerbation and acute alcohol withdrawal. Acute COPD exacerbation Acute on chronic hypercarbic hypoxic respiratory failure COPD, GOLD 2 Uncontrolled CHARLENE She has been weaned back to her baseline 4 L O2. No concerns for infection at this time and remainsoff antibiotics. Continue prednisone 40 mg daily for total of 5 days, patient will likely require an extended prednisone taper given this is her 2nd exacerbation within 1 month. Start Pulmicort twice daily Continue respiratory supportive therapies DuoNebs q.4 hours with Proventil q.4 hours PRN Respiratory driven protocol Incentive spirometry Flutter therapy Per outpatient Pulmonology documentation patient was unable to tolerate Trelegy, and was to resume Anoro Ellipta Continue Anoro Ellipta Has outpatient Pulmonology follow up scheduled for 3 months Encouraged CPAP adherence Acute Alcohol withdrawal Continue CIWA protocol Last drink 10/22 Has used 8 mg of Ativan over the last 24 hours Continue MVI, thiamine, folate CRS consult prior to discharge, she is interested in cessation Chronic methadone use Confirmed with methadone Clinic, patient on 100 mg daily and follows Q 2 weekly, continued Chronic Problems: Anxiety: Continue CATERING AND EVENTS MANAGER Atarax 25mg TiD prn, sertraline AM Vitamins: Hold CATERING AND EVENTS MANAGER magnesium oxide 400mg, potassium ER 20 BID Hx DVT/PE: Continue CATERING AND EVENTS MANAGER Eliquis BID, per outpatient Pulmonology documentation patient may discontinue Eliquis pending the results of her vascular study, will address outpatient GERD: Hold CATERING AND EVENTS MANAGER Protonix, pt reports not taking HTN: Hold CATERING AND EVENTS MANAGER amlodipine, continue torprol 25mg BID HFpEF: continue CATERING AND EVENTS MANAGER lasix 40mg QD TUD: Nicotine patch Misc: Diet: Regular Bowel Regimen: PRN Ernandez: None PT/OT: No consult placed, patient from home VTE Prophylaxis: CATERING AND EVENTS MANAGER Eliquis Code Status: Full Anticipated Discharge: TBD List of services consulted/following: ADULT PHYSICAL THERAPY CONSULT IP ADULT OCCUPATIONAL THERAPY CONSULT IP Patient was discussed with attending physician, MD Rubén Burgos DO Resident Physician This chart was completed in part utilizing [employer] Speech Voice Recognition Software. Grammatical errors, random word insertions, pronoun errors, and incomplete sentences are an occasional consequence of this system due to software limitations, ambient noise, and hardware issues. Any formal questions or concerns about the content, text, or information contained within the body of this dictation should be directly addressed to the provider for clarification. Cosigned by Navarro Jarrell MD at 10/25/2024 12:28 PM EDT Associated attestation - Navarro Jarrell MD - 10/25/2024 12:28 PM EDT I saw and evaluated the patient today. I have reviewed the resident/fellow physician note and agree. No acute events overnight. Required 2 mg p.r.n. Ativan for withdrawal symptoms. Continues with significant wheezing but weaned back to baseline oxygen requirement. Overall respiratory status slowly improving. Continue aggressive pulmonary hygiene, scheduled nebs, steroids. Continue CIWA with p.r.n. Ativan. Remains in the acute withdrawal window and is having symptoms. Remainder of plan per resident note. I spent a total of 42 minutes coordinating, documenting, and providing care for this patient excluding time spent in the performance of separately billed services or time spent by another provider/QHP. * Navarro Jarrell MD - 10/24/2024 7:13 AM EDT Images from the original note were not included. [facility] B730/B INTERVAL HISTORY: No acute events overnight. Reports she slept better last night. Reports her breathing is starting to feel better. Had some agitation and significantly elevated CIWA scores overnight requiring total of 6 mg of Ativan overnight. This morning reports she feels tremulous again. She is somewhat anxious. Denies any chest pain or shortness of breath. No nausea or vomiting. She is eating breakfast. Objective Physical Exam Most Recent Vital Signs: BP: 110 mmHg/61 mmHg (10/24/24609) Pulse: 81 (10/24/24609) Resp: 20 (10/24/24609) Temp: 36.28 C (10/24/24609) Temp Summary: Temp Min: 36.3 °C (97.3 °F) Max: 36.9 °C (98.4 °F) SpO2: 95 % (10/24/24609) O2 flow rate: 5 L/MIN (10/24/24609) Supplemental O2 Delivery: Nasal Cannula (10/24/24609) Physical Exam: General: The patient is well developed/well nourished and nontoxic appearing. HEENT: Nonicteric sclerae. Nasal cannula in place. Cardiovascular: Heart regular rate and rhythm. No murmurs, rubs, or gallops. Trace pitting edema ofthe bilateral lower extremities. Pulmonary: Diminished breath sounds throughout. Expiratory wheezes throughout. No rhonchi or rales. Abdomen: Soft, non-tender, non-distended. Skin: Warm. Neuro: Alert and oriented x3. No gross cranial nerve deficits. Moves all extremities spontaneously.Fine tremor of outstretched hands bilaterally. Peripheral Line Left;Upper Arm 20 Gauge (Active) Number of days: 2 STUDIES: Encounter Orders Labs and other studies reviewed with pertinent findings noted below: BMP with unremarkable electrolytes. Bicarb 34. Creatinine 1.0. CBC with mild leukocytosis 10.9, hemoglobin 10.8, remainder unremarkable. No new imaging to review this morning. Assessment and Plan IMPRESSION : Principal Problem: Acute on chronic respiratory failure with hypoxia and hypercapnia (HCC) Active Problems: Tobacco use disorder Chronic obstructive pulmonary disease with (acute) exacerbation (HCC) Pulmonary emboli (HCC) Restless legs syndrome (RLS) Pulmonary hypertension due to left heart disease (HCC) Opioid dependence in remission (HCC) Alcohol use disorder Chronic anticoagulation Acute on chronic heart failure with preserved ejection fraction (HCC) Resolved Problems: * No resolved hospital problems. * DIFFERENTIAL AND PLAN: Bhumika Flores is a 59 year old female with PMHx of COPD, chronic hypoxic respiratory failure on 4L O2 baseline, HTN, obesity, TUD, methadone use, pulm HTN, DLD, Hx PE, anxietywho is admitted for COPD exacerbation and acute alcohol withdrawal. Acute on Chronic Hypoxic Hypercarbic Respiratory Failure COPD Exacerbation: Slowly improving. - Cont prednisone 40mg daily - may need extended taper pending clinical course - Cont scheduled albuterol nebs qid - Cont albuterol nebs q4hr PRN - Aggressive pulmonary hygiene - Restart CATERING AND EVENTS MANAGER anoro daily - Previously unable to tolerate trelegy? If so, can consider breo once off scheduled nebs - No concern for bacterial infection at this time, will hold abx - Monitor resp status closely given chronic lung dz and benzo/opioid use as below CHARLENE: Contributing to chronic hypercarbic resp failure. Non-adherent w/ CPAP. - Encourage adherence w/ nightly NIV if possible Acute Alcohol Withdrawal Alcohol Use Disorder: Reports 3-4 8% "tallboys" daily. Last drink after 10/22. - Cont CIWA w/ PRN ativan - Approaching 48 hrs since last drink - Cont MVI, thiamine, folate - CRS consult and resources prior to DC - she is interested in cessation Chronic Methadone Use: - Cont CATERING AND EVENTS MANAGER methadone 100mg daily - Confirmed CATERING AND EVENTS MANAGER dosing w/ outpatient methadone clinic Chronic Problems: Anxiety: Continue CATERING AND EVENTS MANAGER atarax 25mg TID prn, sertraline AM Hx DVT/PE: Continue CATERING AND EVENTS MANAGER Eliquis BID, per outpatient Pulmonology documentation patient may discontinue Eliquis pending the results of her vascular study - outpatient follow up GERD: Hold CATERING AND EVENTS MANAGER Protonix, pt reports not taking HTN: Resume CATERING AND EVENTS MANAGER amlodipine, cont torprol 25mg BID HFpEF: Continue CATERING AND EVENTS MANAGER lasix 40mg QD TUD: Nicotine patch PHARMACOLOGIC VTE PROPHYLAXIS: Apixaban Eliquis Tabs CODE STATUS: Full Code EXPECTED DISCHARGE DATE: No information available I spent a total of 53 minutes coordinating, documenting, and providing care for this patient excluding time spent in the performance of separately billed services or time spent by another provider/QHP. * Rubén Mcrae DO - 10/23/2024 7:20 AM EDT PROGRESS NOTE - Medicine [address] [address] [facility] A536/A Name: Bhumika Flores Location: [facility] [place] B730/B Date: 10/23/2024 Time: 2:00 PM Date of admission: 10/22/2024 Hospital length of stay: 1 days Subjective: Overnight Events: Admitted Patient seen and examined at bedside. Patient very lethargic, able to arouse to name. Briefly answering questions between periods of sleepiness. No shortness of breath or chest pain. Asking about restarting her methadone. All systems were reviewed, all pertinent findings were documented above, otherwise negative. Objective: Most Recent Vital Signs: BP: 122 mmHg/66 mmHg (10/23/24 1000) Pulse: 94 (10/23/24 1000) Resp: 14 (10/23/24 1000) Temp: 36.89 C (10/23/24 1000) Temp Summary: Temp Min: 36.2 °C (97.2 °F) Max: 36.9 °C (98.4 °F) SpO2: 98 % (10/23/24 1000) O2 flow rate: 5 L/MIN (10/23/24 1000) Supplemental O2 Delivery: Nasal Cannula (10/23/24 1000) Intake & Output Summary (Last 24 hours): Intake/Output Summary (Last 24 hours) at 10/23/2024 1400 Last data filed at 10/23/2024 1225 Gross per 24 hour Intake 680 ml Output 300 ml Net 380 ml Net IO Since Admission: 290 mL [10/23/24 0721] Physical Exam: General: In no acute distress, lethargic Neuro: no focal deficits appreciated, following commands, answers questions appropriately HEENT: Normocephalic and atraumatic, pupils are equal, round and reactive to light, moist mucous membranes CV: Regular rate and rhythm; no murmurs, no JVD Resp: normal respiratory effort, diffuse wheeze in all lung phillips GI: bowel sounds present, abdomen is soft MSK: no peripheral edema Skin: warm, dry and intact Psych: Tearful Lines / Drains / Tubes: LINES ALL Duration Peripheral Line Left;Upper Arm 20 Gauge <1 day Laboratory Values: reviewed -- Brief labs below include the 7 most recent results over the past week. Blood Gas: Lab results within last 7 days (see chart for full results) Units 10/23/24 0955 10/23/24 0649 10/22/24 1847 pH, Venous units 7.322 7.309* 7.341 pCO2, Venous mmHg 70.7* 71.0* 64.0* pO2, Venous mmHg 56.9* 59.9* 50.0 Base Excess, Venous mmol/L 7.8* 6.3* 6.4* Chemistry Panel: Lab results within last 7 days (see chart for full results) Units 10/23/24 0649 10/22/24 1847 SODIUM mmol/L 135 137 POTASSIUM mmol/L -- 4.3 CHLORIDE mmol/L 96* 97* CO2 mmol/L 29 27 EGFR mL/min 68 80 BUN mg/dL 9 5* CREATININE mg/dL 1.0 0.9 GLUCOSE mg/dL 171* 126* CALCIUM mg/dL 9.2 9.3 Magnesium mg/dL 2.2 -- Phosphorus mg/dL 3.7 -- ANION GAP mmol/L 10 13 Complete Blood Count: Lab results within last 7 days (see chart for full results) Units 10/23/24 0649 10/22/24 1847 WBC K/uL 9.63 11.52* HGB g/dL 11.6* 12.5 HCT % 38.0 40.0 PLT K/uL 164 165 MCV fL 100.3 99.5 Cardiac Studies: Lab results within last 7 days (see chart for full results) Units 10/23/24 0649 10/22/24 1847 Troponin T, High Sensitivity ng/L -- <6 BNP, NT-Pro pg/mL 286 -- Coagulation Studies: No results in the last 7 days - inpatent use only Liver Function Panel: Lab results within last 7 days (see chart for full results) Units 10/23/24 0649 10/22/24 1847 Albumin g/dL 3.3* 3.6* Protein g/dL 7.6 7.4 Bilirubin, Total mg/dL 0.3 0.2 AST U/L -- 49* ALT U/L 54* 53* Alkaline Phosphatase U/L 150* 161* Infectious Studies: Lab results within last 7 days (see chart for full results) Units 10/22/24 1847 Procalcitonin ng/mL 0.11* Cultures: reviewed. Lab results within last 7 days (see chart for full results) Units 10/23/24 0001 Coronavirus SARS-CoV-2 Negative Recent Cultures (2 Weeks) No lab values to display. Radiographic Studies (last 72 hours): reviewed. CT CHEST W CONTRAST Result Date: 10/22/2024 IMPRESSION Faint ground-glass and tree-in-bud opacities throughout both lungs. XR CHEST 2 VIEWS Result Date: 10/22/2024 IMPRESSION Hazy opacity overlying the left lower lobe, trace left pleural effusion, which may represent pneumonia or aspiration. Assessment/Plan: Principal Problem: Acute on chronic respiratory failure with hypoxia and hypercapnia (HCC) (POA: Yes) Active Problems: Tobacco use disorder (POA: Yes) Chronic obstructive pulmonary disease with (acute) exacerbation (HCC) (POA: Yes) Pulmonary emboli (HCC) (POA: Yes) Restless legs syndrome (RLS) (POA: Yes) Pulmonary hypertension due to left heart disease (HCC) (POA: Yes) Opioid dependence in remission (HCC) (POA: Yes) Alcohol use disorder (POA: Yes) Chronic anticoagulation (POA: Yes) Acute on chronic heart failure with preserved ejection fraction (HCC) (POA: Yes) POA = Present On Admission Bhumika Flores is a 59 year old female with PMHx of COPD on 4L O2 baseline, HTN, obesity, TUD, methadone use, pulm HTN, DLD, Hx PE, anxiety who is admitted for COPD exacerbation. Acute COPD exacerbation Acute hypercarbic hypoxic respiratory failure COPD, GOLD 2 Uncontrolled CHARLENE Afebrile. Baseline 4 L O2, currently on 6 L. Infectious workup unremarkable. Mild elevation in WBC resolved and insignificant procalcitonin elevation. CT chest without findings suspicious for infectious etiology as the trigger. She also recently completed a course of antibiotics therefore infectious etiology is less likely. However, if patient begins to spike fevers, or develops worsening leukocytosis may reconsider antibiotic decision. Continue prednisone 40 mg daily for total of 5 days Continue respiratory supportive therapies DuoNebs q.4 hours with Proventil q.4 hours PRN Respiratory driven protocol Incentive spirometry Flutter therapy Per outpatient Pulmonology documentation patient was unable to tolerate Trelegy, and was to resume Anoro Ellipta Has outpatient Pulmonology follow up scheduled for 3 months Alcohol withdrawal Chronic methadone use Continue CIWA protocol Has used four PRN Lorazepam totaling 9 mg and resulting in lethargic state Follow up VBG was obtained to assess respiratory status given her mental status on exam and revealed worsening of her hypercarbia Would cautiously assess need for continued Ativan Confirmed with methadone Clinic, patient on 100 mg daily and follows Q 2 weekly Close monitoring of respiratory status given use of benzos and opioids Chronic Problems: Anxiety: Continue CATERING AND EVENTS MANAGER ativan prn, sertraline AM Anemia: Continue CATERING AND EVENTS MANAGER folic acid Vitamins: hold CATERING AND EVENTS MANAGER magnesium oxide 400mg, potassium ER 20 BID Hx DVT/PE: Continue CATERING AND EVENTS MANAGER Eliquis BID, per outpatient Pulmonology documentation patient may discontinue Eliquis pending the results of her vascular study GERD: Hold CATERING AND EVENTS MANAGER Protonix, pt reports not taking HTN: Hold police captain senior amlodipine, cont torprol 25mg HF: continue CATERING AND EVENTS MANAGER lasix 40mg QD TUD: Nicotine patch Misc: Diet: Regular Bowel Regimen: PRN Ernandez: None PT/OT: No consult placed, patient from home VTE Prophylaxis: CATERING AND EVENTS MANAGER Eliquis Code Status: Full Anticipated Discharge: TBD List of services consulted/following: None Patient was discussed with attending physician, MD Rubén Burgos, Resident Physician This chart was completed in part utilizing [employer] Speech Voice Recognition Software. Grammatical errors, random word insertions, pronoun errors, and incomplete sentences are an occasional consequence of this system due to software limitations, ambient noise, and hardware issues. Any formal questions or concerns about the content, text, or information contained within the body of this dictation should be directly addressed to the provider for clarification. Cosigned by Navarro Jarrell MD at 10/23/2024 2:15 PM EDT Associated attestation - Navarro Jarrell MD - 10/23/2024 2:15 PM EDT I saw and evaluated the patient today. I have reviewed the resident/fellow physician note and agree. 59-year-old female with a past medical history of COPD, chronic hypoxic respiratory failure (4 L ATC), alcohol use disorder, chronic methadone use, JOSE, GERD, hypertension, HFpEF, history of DVT/PE who was admitted overnight for acute on chronic hypoxic hypercapnic respiratory failure in the setting of COPD exacerbation. Patient also noted to be in alcohol withdrawal overnight requiring multiple doses of p.r.n. Ativan. Continue scheduled nebs. Continue prednisone daily. Reviewed CT chest. No leukocytosis, fever, procalcitonin unremarkable - no indication for antibiotics at this time. Aggressive pulmonary hygiene. Continue to monitor on CIWA protocol. Judicious use of Ativan given respiratory status and baselinemethadone use. Stat VBG for any change in respiratory status or mental status. Remainder of plan per resident note. I spent a total of 52 minutes coordinating, documenting, and providing care for this patient excluding time spent in the performance of separately billed services or time spent by another provider/QHP. documented in this encounter H&P Notes * Kavitha Loja DO - 10/22/2024 11:40 PM EDT Images from the original note were not included. [facility] PRESENTING PROBLEM: SOB HPI: Patient is a 59 y/o female who presented to [facility] from home with complaints of SOB and chest pain. PMH COPD on 4L O2 baseline, HTN, obesity, TUD, methadone use, COPD, pulm HTN, DLD, Hx PE, anxiety History was obtained through chart review and patient. Patient reports shortness of breath and chest pain for 3 weeks. She originally went to [facility] where she admitted and treated for pneumonia and COPD exacerbation with antibiotics and steroids. patient reports compliance and completion of treatment at home. 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 Patient finished antibiotics and steroids over 1 week ago. She feels she initially had improvement, but the last week symptoms have worsened. Describes chest pain as 8/10 sharp stabbing at the left 7th rib area and radiates to the right breast. Pain does not radiate to shoulder, back, or anywhere else. No numbness or tingling. Pain is worsened with cough. She has noticed increased swelling in her legs. Also complains of abdominal pain, sharp 8/10 pain 2-3 hours after meals, pain resolved with bowel movements which have been loose and watery. 1-2 episodes diarrhea a day for 1 week. Abdominal symptoms remind patient of pain prior to getting gallbladder removed. + productive cough, produces lynne sputum 4 L of oxygen at baseline Alcohol use disorder - Drinks 3 12oz 8% alcohol, daily, last drink today for a few years. Has nevertried to quit before. When she does not have drink she feels shaky. No known history of seizures. Reports she is interested in quitting but can not on her own. No other drugs In ED, VSS. Labs were significant hypercapnia, mild leukocytosis, insignificant procalcitonin, mildtransaminitis. CXR mild LLL pleural effusion and CT diffuse ground glass opacities. Patient was given Rocephin, azithromycin, steroids, DuoNebs. Admitted to Medicine for further management. Upon admission, VSS. Denies lightheadedness, dizziness, OWENS, fevers/chills, palpitations, URI sx, abdominal pain, n/v, constipation. Lives alone, boyfriend stays occasionally O2 or CPAP: 4L O2 baseline. can't wear CPAP b/c clostrophobia Walker or Cane: none Full CODE Breathing tube "for a short period of time". But states she would want CPR and breathing tube if needed. Medical decision maker: Julio Menendez (relationship:boyfriend)- phone number confirmed and correct inchart. Subjective Patient's past history, medications, and allergies were reviewed. Objective Physical Exam Most Recent Vital Signs: BP: 111 mmHg/63 mmHg (10/22/242199) Pulse: 80 (10/22/242199) Resp: 15 (10/22/242199) Temp: 36.61 C (10/22/241837) Temp Summary: Temp Min: 36.6 °C (97.9 °F) Max: 36.6 °C (97.9 °F) SpO2: 92 % (10/22/242199) O2 flow rate: 6 L/MIN (10/22/242199) Supplemental O2 Delivery: Nasal Cannula (10/22/242199) Physical Exam Constitutional: General: She is not in acute distress. Appearance: She is well-developed. She is obese. She is ill-appearing. HENT: Head: Normocephalic and atraumatic. Neck: Vascular: JVD (3-4 cm sternoclavicular) present. Cardiovascular: Rate and Rhythm: Normal rate and regular rhythm. Heart sounds: No murmur heard. Pulmonary: Effort: Pulmonary effort is normal. No tachypnea, accessory muscle usage or respiratory distress. Breath sounds: Examination of the left-lower field reveals rales. Wheezing (diffuse expiratory w prolong expiratory phase) and rales present. Abdominal: General: Bowel sounds are normal. Palpations: Abdomen is soft. Tenderness: There is no abdominal tenderness. There is no guarding or rebound. Musculoskeletal: Cervical back: Neck supple. Right lower leg: Edema present. Left lower leg: Edema present. Comments: +1 b/l ankle pitting edema Lymphadenopathy: Cervical: No cervical adenopathy. Skin: General: Skin is warm and dry. Capillary Refill: Capillary refill takes less than 2 seconds. Neurological: General: No focal deficit present. Mental Status: She is alert and oriented to person, place, and time. Psychiatric: Mood and Affect: Mood normal. Behavior: Behavior normal. Peripheral Line Left;Upper Arm 20 Gauge (Active) Number of days: 0 STUDIES: Encounter Orders Labs and other studies reviewed with pertinent findings noted below: Lab results within last 7 days (see chart for full results) Units 10/22/24 1847 HGB g/dL 12.5 HCT % 40.0 WBC K/uL 11.52* PLT K/uL 165 Lab results within last 7 days (see chart for full results) Units 10/22/24 1847 SODIUM mmol/L 137 POTASSIUM mmol/L 4.3 CHLORIDE mmol/L 97* CO2 mmol/L 27 BUN mg/dL 5* CREATININE mg/dL 0.9 Lab results within last 7 days (see chart for full results) Units 10/22/24 1847 Protein g/dL 7.4 Bilirubin, Total mg/dL 0.2 Alkaline Phosphatase U/L 161* AST U/L 49* ALT U/L 53* Procalcitonin 0.11 Venous Blood Gas 7.34/64/50 Troponin <6 CXR 10/22/24 IMPRESSION Hazy opacity overlying the left lower lobe, trace left pleural effusion, which may represent pneumonia or aspiration. CT chest w contract 10/22/24 IMPRESSION Faint ground-glass and tree-in-bud opacities throughout both lungs. Assessment and Plan IMPRESSION: Principal Problem: Acute on chronic respiratory failure with hypoxia and hypercapnia (HCC) Active Problems: Tobacco use disorder Chronic obstructive pulmonary disease with (acute) exacerbation (HCC) Pulmonary emboli (HCC) Restless legs syndrome (RLS) Pulmonary hypertension due to left heart disease (HCC) Opioid dependence in remission (HCC) Alcohol use disorder Chronic anticoagulation Acute on chronic heart failure with preserved ejection fraction (HCC) Resolved Problems: * No resolved hospital problems. * DIFFERENTIAL AND PLAN: Bhumika Flores is a 59 year old female with PMH COPD on 4L O2 baseline, HTN, obesity, TUD, methadone use, COPD, pulm HTN, DLD, Hx PE, anxiety admitted with acute on chronic hypoxic hypercapnic respiratory failure and COPD exacerbation. Possible infection, not septic. Acute on Chronic Hypoxic Hypercapnic Respiratory Failure COPD Exacerbation Untreated CHARLENE HFpEF Exacerbation Last echo EF 55%. Does not meet sepsis criteria. Given x1 ceftriaxone and azithromycin, CXRread as possible infection, however, not significantly different than previous CXR suspect LLL pleural effusion chronic. COPD exacerbation leading diagnosis based on HPI and physical exam. Recent hosp italization, would need pseudomonas coverage for PNA. Procal largely unremarkable, mild leukocytosis. Possibly GI source with abd pain and diarrhea. Diarrhea not significant enough to warrant stool studies at this time. Some component of HF exacerbation as pt examins hypervolemic, however, not signi ficant and suspect more uncontrolled COPD. EKG review, QTC wnl. Troponin unremarkable, chest pain consistent with pleuritis and EKG unremarkable. Obtain RPP Obtain UA Could consider pulm consult tomorrow as suspect underlying COPD not well controlled O2 goal changed to 88-94 Schedule duoneb q4h resp Albuterol q4h prn Prednisone 40mg daily Azithromycin 250mg Qd for 5 days total Lasix Iv40mg x1, followed by CATERING AND EVENTS MANAGER 40mg PO daily CPAP QHS Respiratory pt driven protocol, IS, flutter, daily weights and intake output monitoring, telemetry monitoring Daily BMP, Mg, Phos, CBC Alcohol withdrawal Abdominal Pain CIWA. Obtain lipase to consider likelihood pancreatitis, however, suspicion low as pt does not havenausea, vomiting, no abd tenderness on exam. Consider discussing rehab as pt expressed interest in quiting.No prior hx seizures. Taking methadone. Not taking valium. Obtain lipase LFTs mildly elevated, recheck in AM CIWA protocol including ativan. Pt reports daily methadone use but could not confirm dose, discuss with pharmacy in AM. Chronic Problems: Anxiety: Continue CATERING AND EVENTS MANAGER ativan prn, sertraline AM Anemia: Continue CATERING AND EVENTS MANAGER folic acid Vitamins: hold CATERING AND EVENTS MANAGER magnesium oxide 400mg, potassium ER 20 BID Hx DVT: Continue CATERING AND EVENTS MANAGER Eliquis BID GERD: Hold CATERING AND EVENTS MANAGER Protonix, pt reports not taking HTN: Hold police captain senior amlodipine, cont torprol 25mg HF: continue CATERING AND EVENTS MANAGER lasix 40mg QD TUD: Nicotine patch Misc: Peripheral Line Left;Upper Arm 20 Gauge (Active) Number of days: 0 Bowel Regimen: None Sleep: None Ernandez: None Rehab: PT/OT not consulted VTE Prophylaxis: Eliquis Code Status: Full Code Disposition: 1+ day Patient will be seen and examined by attending physician, Edinson Han MD PHARMACOLOGIC VTE PROPHYLAXIS:Eliquis Tabs CODE STATUS: Full Code EXPECTED DISCHARGE DATE: No information available Kavitha Loja DO PGY 1 Internal Medicine and Pediatrics [facility] Cosigned by Edinson Han MD at 10/23/2024 3:15 AM EDT Associated attestation - Edinson Han MD - 10/23/2024 3:15 AM EDT I saw and evaluated the patient on 10/22/2024. I have reviewed the resident/fellow physician note and agree. Principal Problem: Acute on chronic respiratory failure with hypoxia and hypercapnia (HCC) (POA: Yes) Active Problems: Tobacco use disorder (POA: Yes) Chronic obstructive pulmonary disease with (acute) exacerbation (HCC) (POA: Yes) Pulmonary emboli (HCC) (POA: Yes) Restless legs syndrome (RLS) (POA: Yes) Pulmonary hypertension due to left heart disease (HCC) (POA: Yes) Opioid dependence in remission (HCC) (POA: Yes) Alcohol use disorder (POA: Yes) Chronic anticoagulation (POA: Yes) Acute on chronic heart failure with preserved ejection fraction (HCC) (POA: Yes) POA = Present On Admission Acute on chronic hypoxic hypercapnic respiratory failure likely due to COPD exacerbation. Faint ground-glass and tree-in-bud opacities throughout both lungs on CT chest possibly due to increased pulmonary venous congestion, no acute definitive infiltrates identified. Possible component of decompensated diastolic heart failure. Mild leukocytosis 11.5 (probably related to recent steroid use as outpatient). No fever and procalcitonin not significantly elevated (0.11), bacterial pneumonia less likely. RVP negative. Tobacco use disorder. Opioid use disorder. Alcohol use disorder. EKG from 10/22/2024 shows normal sinus rhythm, no acute ST-T changes suggestive of myocardial ischemia, QTc 459. -O2 supplementation via nasal cannula to maintain saturation between 89-92%, wean as able. Patient refuses BiPAP. Repeat VBG in a.m., will re-encourage BiPAP if hypercapnia is worsening. DuoNeb q.4 hours rtc, albuterol neb q.4 hours p.r.n., prednisone 40 mg daily, azithromycin for 5 days, respiratory patient driven protocol. Diuresis with IV Lasix 40 mg once followed by continuation of CATERING AND EVENTS MANAGER p.o. Lasix daily. Daily weights and intake output monitoring. Telemetry monitoring. Smoking cessation counseling given. [facility] protocol ordered for impending alcohol withdrawal. Confirm methadone dose in a.m.and continue. Continue CATERING AND EVENTS MANAGER Eliquis. I spent a total of 85 minutes coordinating, documenting, and providing care for this patient excluding time spent in the performance of separately billed services or time spent by another provider/QHP. documented in this encounter Procedure Notes * Isabelle Kaur MD - 10/22/2024 6:51 PM EDTAssociated Order(s): EKG REASON FOR STUDY: cp CONCLUSIONS: Normal sinus rhythm Normal ECG When compared with ECG of 11-Sep-2024 14:58, QT has lengthened Ventricular Rate: 89 Atrial Rate: 89 OR Interval: 118 QRS Duration: 78 QT/QTc: 378/459 ms P-R-T [place]: 51 : 67 : 75 degrees documented in this encounter Consult Notes * Rajat León OT - 10/26/2024 9:46 AM EDTAssociated Order(s): ADULT OCCUPATIONAL THERAPY CONSULT IP GENERAL EVALUATION- Occupational Therapy [address] [id number] Name: Bhumika Flores Location: [facility] B730/B Date: 10/26/2024 Time: 9:46 AM HPI: Per EPIC, "Patient is a 59 year old female with a history of HTN, obesity, methadone use, COPD, pulmonary HTN, presenting to the ED for evaluation of shortness of breath and chest pain. Symptomsongoing for 3 weeks and was seen at [facility]. Patient was treated with steroids and duonebs withminimal relief. Patient was also noted to have left lower lobe pneumonia and treated with antibiotics. Associated nausea, vomiting and diarrhea for the past week. Earlier today patient was noted to have worsening shortness of breath, worse with ambulation, causing limitation in performing activities of daily life. Work of breath even with minimal exertion. On 4 L of O2 at home all the time. Notedto be hypoxic at home even while on oxygen to 70% saturation. Pleuritic chest pain. Previous history of pulmonary embolism, for which patient is on eliquis. Denies fevers, abdominal pain etc. ROS negative otherwise." Patient Status: Inpatient Insurance: Payor: [facility] Plan: [facility] [place] Product Type: *No Product type* Patient Seen: at bedside, nursing cleared patient for therapy Patient Identified By: Name, ID Band and Date Diagnosis: dyspnea (10/26/24939) Status of treatment: Evaluation completed (10/26/24939) Orders: OT evaluation and treatment;OT OOB (10/26/24939) Weight Bearing Status: Weight bearing as tolerated (10/26/24939) Precautions: Alarms;Falls;Safety;Oxygen (10/26/24939) Total Treatment Time: 15 (10/26/24939) Past Medical History: Past Medical History: Diagnosis Date CKD (chronic kidney disease) COPD (chronic obstructive pulmonary disease) ([facility]) COPD, group C, by GOLD 2017 classification ([facility]) 10/09/2021 Per COPD GOLD Classification HTN, goal below 130/80 05/04/2020 Methadone use Nodule of right lung 05/25/2022 Obesity Pneumonia Pulmonary emboli (HCC) Recurrent major depressive disorder (HCC) 09/20/2021 Substance abuse (HCC) Thrombocytopenia (HCC) 05/25/2022 Tobacco use disorder 11/22/2020 Past Surgical History: Past Surgical History: Procedure Laterality Date TOTAL HIP REPLACEMENT & PROSTHESIS Right 12/05/2020 ROBOTIC ARTHROPLASTY TOTAL HIP performed by Rodolfo Park DO at OR [facility] Social History/Disposition Lives with: Friend (Boyfriend) (10/26/24939) Assistance available: Yes (10/26/24939) Dwelling type: Apartment (10/26/24939) Inside steps: 10 - 15 (has stair glide) (10/26/24939) Bedroom location: 1st floor (10/26/24939) Bath location: 1st floor full bath (10/26/24939) Prior Level of Function Reported by: Patient (10/26/24939) Ambulation: Ambulatory without device (10/26/24939) Grooming: Independent (10/26/24939) Bathing: Independent (10/26/24939) Dressing: Independent (10/26/24939) Feeding: Independent (10/26/24939) Toileting: Independent (10/26/24939) Meal Prep: Independent (10/26/24939) Durable Medical Equipment at home: Rollator (10/26/24939) Observations Consciousness: Alert (10/26/24939) Orientation: Oriented times 4 (10/26/24939) Psychosocial: Patient can communicate basic needs;Patient can converse in a social setting (10/26/24939) Sitting posture: Forward head;Rounded shoulders (10/26/24939) Standing posture: Forward head;Rounded shoulders (10/26/24939) Safety awareness: The Patient verbalizes insight of current deficits.;The Patient demonstrates carryover of insight during functional tasks. (10/26/24939) Pain: Patient has complaints of BLE pain with activity Current Functional Status: UE Strength/ROM: BUE are WFL and 4+/5 throughout Bed Mobility Supine-Sit: Supervision (Please comment) (10/26/24939) Sit-Supine: Supervision (Please comment) (10/26/24939) OT Transfers Sit-Stand: Supervision (Please comment) (10/26/24939) Stand-Sit: Supervision (Please comment) (10/26/24939) Functional Ambulation Assistive Device: No device (10/26/24939) Distance in feet:: 120 (10/26/24939) Level of Assistance: Supervision (Please Comment) (10/26/24939) Self Care Able to provide self care: Yes (10/26/24939) Balance Sit (Static): Fair (10/26/24939) Sit (Dynamic): Fair (10/26/24939) Stand (Static): Fair (10/26/24939) Stand (Dynamic): Fair (10/26/24939) Dressing Upper Body: Supervision (Please comment) (to don gown) (10/26/24939) Lower Body: Supervision (Please comment) (to don socks) (10/26/24939) Patient and or Family Goal(s): None Alarm Status Patient positioned in: Bed (10/26/24939) With: Bed alarm intact and functioning and call menendez in reach (10/26/24939) Treatment Provided: Evaluation Low Complexity 15 minutes - 17417: Patient was cooperative during treatment session. Low complexity evaluation performed and ADL deficit and functional mobility deficitdeficits were identified that result in activity limitation. The patient does not have any comorbidities that affect occupational performance. There were no modifications necessary to complete the evaluation. Patient Education Education Topic: Role of OT;Plan of care goals (10/26/24939) Review of Precautions: Safety;Fall (10/26/24939) Method of Education: Verbalized to patient (10/26/24939) Education Provided to: Patient (10/26/24939) Response to Education: Receptive and agreeable to education (10/26/24939) Barriers to learning: Medical status (10/26/24939) Preferred learning method: Combination (10/26/24939) Method of Education: Verbal discussion and explanation provided to patient: verbalized understanding and or agreement of this information Assessment: Patient is a 59 year old female admitted on 10/22/24 being seen for shortness of breath.She was previously living at home and reports being independent for ADLs/mobility. On exam, patientwas able to complete bed mobility unassisted. She was able to simulate UB/LB dressing tasks at supervision level while edge of bed. She was able to ambulate in hallway with close supervision due to minor unsteadiness, with 1 rest break needed due to shortness of breath. Patient would benefit from ongoing acute OT services to improve function. Please consider home with post-acute care services which may include home health or outpatient therapy. The level of care will be determined in collaboration with the patient, family/caregiver and care team members. AM-PAC Help From Another Person Eating Meals: None (10/26/24939) Help From Another Person Taking Care of Personal Grooming: None (10/26/24939) Help From Another Person To Put On/Take Off Upper Body Clothing: A little (10/26/24939) Help From Another Person To Put On/Take Off Lower Body Clothing: A little (10/26/24939) Help From Another Person Toileting: A little (10/26/24939) Help From Another Person Bathing: A little (10/26/24939) OT AM-PAC Score: 20 (10/26/24939) OT AM-PAC t-Scale Score: 42.03 (10/26/24939) HLM (Highest Level of Mobility) Goal: Level 6 walk 10 steps or more (10/26/24 0815) A portion of this AM-PAC assessment not scored based on functional assessment; rather clinical decision making was utilized based on current findings and/or prior level of function. Please refer to future AM-PAC calculations of functional ability as they become available. Goals: Increase Strength of BUE to 5/5 in all areas Demonstrate sitting Balance of Fair+ Demonstrate standing Balance of Fair+ Demonstrate self care at modified independence for all UB and LB tasks Demonstrate toileting with modified independence Demonstrate Bed Mobility with modified independence Demonstrate Transfers with modified independence Demonstrate Functional Ambulation with modified independence Treatment Plan: Accuracy with Precautions, Safety, Bed mobility training, Functional Ambulation, Transfer training, Coordination Tasks, Upper extremity strengthening, Balance activities, ADL training, and Endurance Goal Time Frame:8 visits Anticipated Frequency (on eval): 1 to 3 times per week (10/26/24939) * Sandi Jeffries, PT - 10/26/2024 9:11 AM EDTAssociated Order(s): ADULT PHYSICAL THERAPY CONSULT IP Physical Therapy - General Evaluation [address] [id number] Name: Bhumika Flores Location: [facility] B730/B Date: 10/26/2024 Time: 9:11 AM Bhumika Flores is a/an 59 year old female. Patient Status: Inpatient Insurance: Payor: [facility] Plan: [facility] [place] Product Type: *No Product type* Patient Seen: at bedside, nursing cleared patient for therapy Patient Identified By: Name, ID Band and Date Diagnosis: acute on chronic respiratory failure (10/26/24910) Status of treatment: Evaluation completed (10/26/24910) Orders: PT evaluation and treatment;OOB (10/26/24910) Precautions: Alarms;Falls;Oxygen;Safety (10/26/24910) Total Treatment Time--free text: 15 (10/26/24910) Subjective: Patient agreeable to PT evaluation. Past Medical History: Past Medical History: Diagnosis Date CKD (chronic kidney disease) COPD (chronic obstructive pulmonary disease) ([facility]) COPD, group C, by GOLD 2017 classification ([facility]) 10/09/2021 Per COPD GOLD Classification HTN, goal below 130/80 05/04/2020 Methadone use Nodule of right lung 05/25/2022 Obesity Pneumonia Pulmonary emboli ([facility]) Recurrent major depressive disorder ([facility]) 09/20/2021 Substance abuse ([facility]) Thrombocytopenia ([facility]) 05/25/2022 Tobacco use disorder 11/22/2020 Past Surgical History: Past Surgical History: Procedure Laterality Date TOTAL HIP REPLACEMENT & PROSTHESIS Right 12/05/2020 ROBOTIC ARTHROPLASTY TOTAL HIP performed by Rodolfo Park DO at OR [facility] Social History/Disposition Lives with: Friend (Boyfriend) (10/26/24939) Assistance available: Yes (10/26/24939) Dwelling type: Apartment (10/26/24939) Entry steps: Other - Describe (10-15 with stairglide) (10/26/24910) Inside steps: 10 - 15 (has stair glide) (10/26/24939) Bedroom location: 1st floor (10/26/24939) Bath location: 1st floor full bath (10/26/24939) Prior Level of Function Reported by: Patient (10/26/24910) Ambulation: Ambulatory without device (10/26/24910) Observations Consciousness: Alert (10/26/24910) Orientation: Oriented times 4 (10/26/24910) Psychosocial: Patient can converse in a social setting (10/26/24910) Other Findings: Yes (10/26/24910) Findings: Light touch sensation (10/26/24910) Light Touch Sensation Results: Intact;LLE;RLE (10/26/24910) Sitting Posture: Rounded shoulders (10/26/24910) Standing Posture: Rounded shoulders (10/26/24910) Pain: Patient has complaints of pain. Pain located bilateral LE following ambulation. No level stated. Nurse aware. Range of Motion Range of Motion: WFL (bilateral LE) (10/26/24910) Strength Assessment Strength Assessment: (bilateral LE 4/5) (10/26/24910) P.T. Bed Mobility Supine-Sit: Supervision (10/26/24910) Sit-Supine: Supervision (10/26/24910) Transfers Sit-Stand: Supervision (10/26/24910) Stand-Sit: Supervision (10/26/24910) Ambulation Assist: Supervision (10/26/24910) Distance Ambulated (feet): 100 (10/26/24910) Assistive Device: No device (10/26/24910) Number of Stairs: (patient reports she does not have to climb entry stairs as she has a stairglide)(10/26/24910) Ambulatory safety: Patient verbalizes insight of current deficits;Patient demonstrates carryover ofinsight during functional tasks (10/26/24910) Balance Sit (Static): Fair (10/26/24910) Sit (Dynamic): Fair (10/26/24910) Stand (Static): Fair (10/26/24910) Stand (Dynamic): Fair (10/26/24910) Patient and or Family Goal(s): to get well and to return home Patient Education Review of Precautions: Safety;Fall (role of PT) (10/26/24910) Safety Awareness: Patient verbalizes insight of current deficits (10/26/24910) Preferred learning method: Combination (10/26/24910) Method of Education: Verbalized to patient (10/26/24910) Topic of Education: Safety with mobility, Goals/plan of care, Fall prevention, and role of PT Treatment Provided: Evaluation Low Complexity 15 minutes - [id number]: Patient was alert during treatment session. Low complexity evaluation performed with indication of no personal factors or comorbidities that impact plan of care. Patient presents with limitations in strength, bed mobility, transfers,gait, elevations, balance, and endurance, which will impact plan of care. These limitations will beaddressed by the goals set for this patient. Alarm Status Patient positioned in: Bed (10/26/24910) With: Bed alarm intact and functioning and call menendez in reach (10/26/24910) Treatment Status: Treatment at bedside (10/26/24910) Assessment: Patient is a 59 y/o female with dx acute on chronic respiratory failure. Prior to admission, patient lives with her boyfriend in a one story apartment with 10 steps to enter and was independent with mobility without an assistive device. Patient currently requires supervision with bed mobility, sit to stand transfers, and ambulation without an assistive device. Patient's mobility is limited by decreased LE strength, decreased balance, overall medical status, and decreased activity tolerance. Patient would benefit from continued PT to maximize functional independence. Please consider home with post-acute care services which may include home health or outpatient therapy. The level of care will be determined in collaboration with the patient, family/caregiver and care team members. Goals. Demonstrate Bed Mobility with : Supine to Sit: Modified Independent Sit to supine: Modified Independent Demonstrate Transfers with: Sit to Stand: Modified Independent Stand to Sit: Modified Independent Demonstrate Ambulation: Assistive Device: none Distance in feet: 250' Level of Assistance on level surface: Modified Independent Demonstrate Stairclimbing: Number of steps: 10, : Other rail and Level of Assistance: Modified Independent Increase Strength of: bilateral LE by 1/2 MMT grade above eval Increase Balance: to Fair + throughout Time Frame: 6 visits Treatment Plan: Bed mobility training, Transfer training, Gait training, Elevation training, Strengthening exercises, Balance activities, and Educate on safety with mobility Deficits requiring P.T. treatment needs: Mobility;Balance;Safety;Endurance;Lower extremity strength(10/26/24910) Anticipated Frequency (on eval): 1 to 3 times per week (10/26/24910) AM-PAC Score With Stairs : 18 (10/26/24910) A portion of this AM-PAC assessment not scored based on functional assessment; rather clinical decision making utilized based on current findings and/or prior level of function. Please refer to future AM-PAC calculations of functional ability as they become available. documented in this encounter Nursing Notes * Beatris Fink, RN - 10/28/2024 2:15 PM EDT VIRTUAL RN [facility] [place]-[address] [id number] Name: Bhumika Flores Location: [facility] B730/A Date: 10/28/2024 Time: 2:15 PM I completed the Discharge Navigator and Education. The patient was in the hospital. I was not in a hospital or clinic location. After connecting through [employer], the patient was identified by name and date of and / or wristband checked. Patient (or authorized legal major account representative) was then i nformed that this was a Virtual Nurse visit and was being conducted confidentially over secure lines. I used a headset and other methods to ensure confidentiality for the patient. My office door was closed. No one else was in the room with me. Patient acknowledged consent and understanding of privacy and security of the Virtual Nurse visit. I presented the opportunity for the patient or authorized legal major account representative to ask any questions regarding the visit today. The patient or authorized legal major account representative agreed to participate. * Haley Conner RN - 10/24/2024 1:29 PM EDT Dual Licensed Skin Assessment completed by Haley ALEMAN and Koki ALEMAN. The patient is/has a N/A Skin Breakdown (includes non blanchable erythema): No Skin is clean, dry, and intact * Brandy Worthy RN - 10/23/2024 8:25 AM EDT Provider at bedside. * Brandy Worthy RN - 10/23/2024 8:02 AM EDT Patient stated that there will be hell to pay if she does not receive her methadone soon. Methadoneis not ordered at this time. Dr. Mason Montana made aware of the patient's request for Methadone. * Geoff Venegas RN - 10/23/2024 2:45 AM EDT Dual Licensed Skin Assessment completed by Geoff De La Cruz RN and Ignacia Mike RN. The patient is/has a N/A Skin Breakdown (includes non blanchable erythema): No Left arm rash, patient states baseline * Dionne Merino RN - 10/23/2024 1:27 AM EDT Hand-Off - Nurse Communication Note Name: Bhumika Flores Location: Date: 10/23/2024 Time: 1:30 AM Sending to: 7 Bed 734 Safety Concerns: Activity restrictions Allergies: Buspar [buspirone] Code Status: Prior Isolation: None Isolation flowsheet: Special Needs: Isolation [10] Special Needs comments: Enhance Enterovirus (resp)/Rhinovirus 10/23/24 Attention to: Chu Segovia RN Report from: Dionne Merino RN Phone extension: [phone] Patient arriving via: Stretcher Reason for SBAR handoff: Admission Situation/Background Admission date: 10/22/2024 Patient Service: Medicine Admit 2 [[id number]] Attending Provider: Edinson Han MD Admitting diagnosis: Dyspnea Chief Complaint: Short of Breath Problem list: Principal Problem: Acute on chronic respiratory failure with hypoxia and hypercapnia (HCC) Active Problems: Tobacco use disorder Chronic obstructive pulmonary disease with (acute) exacerbation (HCC) Pulmonary emboli (HCC) Restless legs syndrome (RLS) Pulmonary hypertension due to left heart disease (HCC) 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 * Level of Care: Med Surg [3] Assessment Vital Signs: BP: 108/66 (10/23/24 011) Temp: 36.6 °C (97.9 °F) (10/22/24 1838) Pulse: 74 (10/23/24 011) Resp: 16 (10/23/24 011) SpO2: 88 % (10/23/24 0115) Fall Scale: Fall Score: 70 (10/22/241955) Fall Interventions: Bed at low level;Yellow armband applied/intact and on patient;Floor free of clutter;Non-skid foot covering on;Walk path free of obstacles (10/22/241955) Neurological: [place] Coma Scale - For patients greater than two years old Eyes Open: Spontaneous (10/22/241929) Best Verbal Response: Verbally appropriate for age (10/22/241929) Best Motor Response: Obeys commands appropriate for age (10/22/241929) Coma Score: 15 (10/22/241929) Additional Neurological Information: n/a Respiratory: Respiratory WNL: X - Exceptions to WNL as documented below (10/22/241929) Cough: Occasional;Non-Productive (10/22/241929) Respiratory Depth/Rhythm: Shallow (10/22/241929) Dyspnea Occurence: None (10/22/241929) Respiratory Effort: Labored (10/22/241929) Oxygen therapy/ Mechanical vent Supplemental O2 Delivery: Nasal Cannula (10/23/24) O2 flow rate: 6 L/MIN (10/23/24) O2 flow rate: 6 L/MIN (10/23/24) Additional Respiratory Information: desaturates with any movement Cardiac: Cardiovascular WNL: WNL - within normal limits (10/22/241929) Extremities: +Sensation;Right;Left;Upper;Lower;Haugen;Warm (10/22/241929) Pulses Right: Palpable;Radial + (10/22/241929) Pulses Left: Palpable;Radial + (10/22/241929) Capillary Refill: 1-2 seconds (10/22/241929) Additional Cardiac Information: n/a GI/: Abdomen: Soft;Non-distended;Rounded (10/22/241929) Additional GI/ Information: n/a Integumentary: Integumentary WNL: WNL - within normal limits (10/22/241929) Additional Integumentary Information: n/a C-Diff: Restraints: No orders of the defined types were placed in this encounter. Lines: Peripheral Line Left;Upper Arm 20 Gauge (Active) Status Alcohol disinfectant cap;Capped/Locked;Flushes easily;Positive blood return 10/22/241999 Phlebitis Scale 0 10/22/241999 Infiltration Scale 0 10/22/241999 Site Description (Other) Without redness, swelling or drainage 10/22/241999 Site Intervention Flushed 10/22/241999 Dressing Assessment Dressing clean, dry, and intact;Chlorhexidine Gluconate dressing;Stabilization device;Occlusive 10/22/241999 Dressing Intervention Applied;Liquid adhesive;Skin protectant 10/22/241999 Number of days: 1 Labs: Labs This Encounter BLOOD GAS, VENOUS - Abnormal; Notable for the following components: Result Value Ref Range pCO2, Venous 64.0 40.0 - 60.0 mmHg Base Excess, Venous 6.4 -2.0 - 2.0 mmol/L Carboxyhemoglobin, Whole Blood 4.7 <=1.5 % total Hgb Bicarbonate, Whole Blood 33.7 23.0 - 31.0 mmol/L All other components within normal limits CBC - Abnormal; Notable for the following components: WBC 11.52 4.00 - 10.80 K/uL All other components within normal limits COMPREHENSIVE METABOLIC PANEL - Abnormal; Notable for the following components: BUN 5 6 - 20 mg/dL CHLORIDE 97 98 - 107 mmol/L GLUCOSE 126 70 - 120 mg/dL Albumin 3.6 3.8 - 5.0 g/dL AST 49 10 - 35 U/L Alkaline Phosphatase 161 35 - 130 U/L ALT 53 10 - 35 U/L All other components within normal limits PROCALCITONIN - Abnormal; Notable for the following components: Procalcitonin 0.11 <0.10 ng/mL All other components within normal limits Narrative: Less than 0.5 ng/mL: Low risk for progression to sepsis. Review patients condition for localized infections. 0.5 to 2.0 ng/mL: Intermediate risk for progresion to sepsis. Review underlying conditions. Recommend repeat PCT after 6 hours has elapsed. Greater than 2.0 ng/mL: high risk for progression to sepsis unless other causes are known. TROPONIN T, HIGH SENSITIVITY - Normal RESPIRATORY PATHOGEN PANEL, PCR - Normal LIPASE Diet: No orders of the defined types were placed in this encounter. Additional Diet Information: n/a Intake and Output: Intake/Output Summary (Last 24 hours) at 10/23/2024 0130 Last data filed at 10/22/20242120 Gross per 24 hour Intake 50 ml Output -- Net 50 ml Patient Belongings and Home Medications Recommendations/Follow up Goals/Plan of Care: See note Consults not completed: n/a Anticipated tests/studies/procedures: n/a Medication Reconcilliation completed for this Admission? No documented in this encounter ED Notes * Fabian Zuleta MD - 10/22/2024 7:02 PM EDT HISTORY OF PRESENT ILLNESS Bhumika Flores is a 59 year old female who presents to the ED for evaluation of Short of Breath. The patient was seen at 10/22/24 1840. Review of Systems All other systems reviewed and are negative. Patient is a 59 year old female with a history of HTN, obesity, methadone use, COPD, pulmonary HTN,presenting to the ED for evaluation of shortness of breath and chest pain. Symptoms ongoing for 3 weeks and was seen at [facility]. Patient was treated with steroids and duonebs with minimal relief.Patient was also noted to have left lower lobe pneumonia and treated with antibiotics. Associated nausea, vomiting and diarrhea for the past week. Earlier today patient was noted to have worsening shortness of breath, worse with ambulation, causing limitation in performing activities of daily life.Work of breath even with minimal exertion. On 4 L of O2 at home all the time. Noted to be hypoxic at home even while on oxygen to 70% saturation. Pleuritic chest pain. Previous history of pulmonary embolism, for which patient is on eliquis. Denies fevers, abdominal pain etc. ROS negative otherwise. The patient's allergies, past history, and medications were reviewed. PHYSICAL EXAM Initial Vitals (see all): BP 124/102 | Pulse 104 | Resp 16 | Temp 97.9 | O2 94 %, Nasal Cannula | Weight 103.42 kg | Height 172.7 cm | BMI 34.67 kg/m2 Initial Pain Assessment (see all): 8 (severe pain)/10, location: chest pain ([facility] Adult Scale 0-10 (18 years and older)) Physical Exam Vitals and nursing note reviewed. Constitutional: General: She is in acute distress. Appearance: She is well-developed. She is ill-appearing. She is not diaphoretic. HENT: Head: Normocephalic and atraumatic. Nose: Nose normal. Eyes: General: No scleral icterus. Pupils: Pupils are equal, round, and reactive to light. Neck: Thyroid: No thyromegaly. Vascular: No JVD. Cardiovascular: Rate and Rhythm: Normal rate and regular rhythm. Heart sounds: Normal heart sounds. No murmur heard. No friction rub. No gallop. Pulmonary: Effort: Pulmonary effort is normal. Tachypnea present. No respiratory distress. Breath sounds: Wheezing and rhonchi present. No rales. Chest: Chest wall: No tenderness. Abdominal: General: Bowel sounds are normal. There is no distension. Palpations: Abdomen is soft. There is no mass. Tenderness: There is no abdominal tenderness. There is no rebound. Musculoskeletal: General: Normal range of motion. Cervical back: Normal range of motion and neck supple. Right lower leg: Edema present. Left lower leg: Edema present. Lymphadenopathy: Cervical: No cervical adenopathy. Skin: General: Skin is warm and dry. Neurological: Mental Status: She is alert and oriented to person, place, and time. Deep Tendon Reflexes: Reflexes normal. PROCEDURES AND TREATMENTS ED Orders | ED Results MEDICAL DECISION MAKING Nursing notes and vital signs were reviewed. ED Course as of 10/23/24 0018 Angelina Oct 22, [id number] Echo 11/02/23: LVEF 55-60%. No wall motion abnormality. [GK] 1926 EKG per my interpretation was notable for sinus rhythm with a ventricular rate of 89 bpm, normal axis without ST, T wave, QRS, QT interval abnormalities. [GK] 2010 Procalcitonin(!) Stable [GK] 2010 CBC(!) Mild leukocytosis [GK] 2010 Blood Gas, Venous(!) Unremarkable [GK] 2010 Comprehensive Metabolic Panel(!) Mildly elevated transaminases [GK] 2010 Troponin T, High Sensitivity Unremarkable [GK] 2011 XR Chest 2 Views Per my interpretation, left lower lobe effusion versus opacity concerning for pulmonary edema versus pneumonia. We will obtain CT chest for definitive diagnosis [GK] 2310 CT Chest with IV contrast Faint ground-glass and tree-in-bud opacities throughout both lungs. [GK] ED Course User Index [GK] Roland Medina DO Patient is a 59-year-old female presenting to the ED for evaluation of shortness of breath. Vital signs reviewed and notable for tachypnea. Physical exam as reviewed. Concern for pneumonia versus CHFexacerbation versus COPD exacerbation. Given that patient is on Eliquis and compliant with the medications, low concern for PE. Given that patient was only treated with cefdinir previously, no coverage for atypicals and probably has recrudescence of pneumonia. Imaging and labs obtained and interpreted in the ED course. Chest x-ray was notable for left lower lobe effusion versus opacity concerningfor pneumonia versus pulmonary edema. CT chest was obtained for further clarification. Patient was started on azithromycin and ceftriaxone for coverage. Patient also noted concerns over alcohol withdrawal and was started on CIWA protocol with lorazepam rescue. Rest of the workup interpreted in the ED course. Patient is chronically on 4 L at baseline but is currently requiring 6 L. Patient acutelydesaturated to 87% on the 6 L. Given concerning findings of infectious etiology on the CT, increasing requirement of oxygen, plan for inpatient admission. Case discussed with medicine and patient is admitted as per plan. Amount and/or Complexity of Data Reviewed Labs: Decision-making details documented in ED Course. Radiology: ordered. Decision-making details documented in ED Course. Risk OTC drugs. Prescription drug management. Decision regarding hospitalization. Clinical Impressions Dyspnea Pneumonia of left lower lobe due to infectious organism Acute on chronic congestive heart failure, unspecified heart failure type (HCC) Disposition Admitted. I discussed the management of this patient with the admitting provider and I made a decision to admit the patient. Admission Order Ordered Status . 10/22/24 2333 Admit for Inpatient Services (incl ZPO) ONCE Acknowledged Fabian Zuleta was the attending physician who supervised the care of this patient. Roland Medina DO ATTENDING ATTESTATION I have seen and examined this patient at 10/22/2024 visit. I have discussed the patient's managementwith the provider listed above and agree with the note, findings, and plan of care. I personally made/approved the management plan and take responsibility for patient management. Fabian Zuleta MD * Breanna Ray RN - 10/22/2024 6:40 PM EDT Pt presents to ed due to sob w chest pain. Hx copd- chronic Nasal Cannula 4L, turned to 6L in triage due to wob documented in this encounter Miscellaneous Notes * Care Plan - Bessy Christie RN - 10/28/2024 1:57 PM EDT Problem: Actual & Potential for Falls Goal: Patient will remain free of falls. Outcome: Adequate for Discharge Clinical Goal(s): Patient will verbalize shortness of breath this shift. (10/28/24 0000) Possible barriers to meeting goal(s)/advancing plan of care: Acuity of illness Stability of the patient: Moderately stable - low risk of patient condition declining or worsening Summary regarding today's goal(s): Met: LP Recommendations: Continue with discharge * Pt Handout (on AVS) - Jeanna Cee RN - 10/28/2024 1:40 PM EDT [id number] Umeclidinium and Vilanterol Oral Inhalation Brand Name(s): Anoro Ellipta® (as a combination product containing umeclidinium, vilanterol) WHY is this medicine prescribed? The combination of umeclidinium and vilanterol is used to control wheezing, shortness of breath, coughing, and chest tightness caused by chronic obstructive pulmonary disease (COPD; a group of diseases that affect the lungs and airways, which includes chronic bronchitis and emphysema). Umeclidiniumis in a class of medications called anticholinergics. Vilanterol is in a class of medications called long-acting beta-agonists (LABAs). These medications work by relaxing and opening air passages in the lungs, making it easier to breathe. HOW should this medicine be used? The combination of umeclidinium and vilanterol comes as a powder to inhale by mouth using a specialinhaler. It is usually inhaled once a day. Inhale umeclidinium and vilanterol at around the same time every day. Follow the directions on your prescription label carefully, and ask your doctor or phar macist to explain any part you do not understand. Use umeclidinium and vilanterol exactly as directed. Do not use more or less of it or use it more often than prescribed by your doctor. Do not use umeclidinium and vilanterol inhalation to treat sudden attacks of COPD. Your doctor willprescribe a short-acting beta agonist medication such as albuterol (Accuneb, Proair, Proventil, Ventolin) to use during attacks. If you were using this type of medication on a regular basis before you began treatment with umeclidinium and vilanterol, your doctor will probably tell you to stop usingit regularly but to continue to use it to treat attacks. Umeclidinium and vilanterol inhalation should not be used to treat COPD that is quickly getting worse. Call your doctor or get emergency medical help if your breathing problems worsen, if you have touse your short-acting inhaler to treat attacks of COPD more often, or if your short-acting inhaler does not relieve your symptoms. Umeclidinium and vilanterol inhalation controls COPD but does not cure it. Continue to use umeclidinium and vilanterol even if you feel well. Do not stop using umeclidinium and vilanterol without talking to your doctor. If you stop using umeclidinium and vilanterol inhalation, your symptoms may getworse. Before you use umeclidinium and vilanterol inhalation for the first time, ask your doctor, pharmacist, or respiratory therapist to show you how to use the inhaler. Practice using your inhaler while he or she watches. To use the inhaler, follow these steps: · If you will be using a new inhaler for the first time, remove it from the box and the foil tray.Fill in the "Tray opened" and "Discard" blanks on the inhaler label with the date that you opened the tray and the date 6 weeks later when you must replace the inhaler. · When you are ready to inhale your dose, slide the cover down to expose the mouthpiece until it clicks. If you open and close the inhaler without using your dose, you will waste the medication. · The counter will count down by 1 each time you open the cover. If the counter does not count down, your inhaler will not provide the medicine. If your inhaler does not count down, call your pharmacist or doctor. · Hold the inhaler away from your mouth and breathe out as completely as possible through your mouth. Do not breathe out into the mouthpiece. · Put the mouthpiece between your lips, and close your lips firmly around it. Take a long, steady,deep breath in through your mouth. Do not breathe in through your nose. Be careful not to block theair vent with your fingers. · Remove the inhaler from your mouth, and hold your breath for about 3 to 4 seconds or as long as you comfortably can. Breathe out slowly. · You may or may not taste or feel the medicine released by the inhaler. Even if you do not, do not inhale another dose. If you are not sure you are getting your dose of umeclidinium and vilanterol,call your doctor or pharmacist. · You may clean the mouthpiece with a dry tissue, if needed. Slide the cover up over the mouthpiece as far as it will go to close the inhaler. Ask your pharmacist or doctor for a copy of the production planner's information for the patient. Are there OTHER USES for this medicine? This medication may be prescribed for other uses; ask your doctor or pharmacist for more information. What SPECIAL PRECAUTIONS should I follow? Before using umeclidinium and vilanterol, · tell your doctor and pharmacist if you are allergic to umeclidinium, vilanterol, any other medications, milk protein, or any of the ingredients in umeclidinium and vilanterol inhalation. Ask your pharmacist or check the Medication Guide for a list of the ingredients. · tell your doctor and pharmacist what other prescription and nonprescription medications, vitamins, nutritional supplements, and herbal products you are taking or plan to take. Your doctor may needto change the doses of your medications or monitor you carefully for side effects. · tell your doctor if you have asthma. Your doctor will tell you not to use umeclidinium and vilanterol unless you are using it along with an inhaled steroid medication. · tell your doctor if you have or have ever had high blood pressure, irregular heartbeat, QT prolongation (an irregular heart rhythm that can lead to fainting, loss of consciousness, seizures, or sudden ), seizures, diabetes, glaucoma (an eye disease), urinary retention (difficulty urinating), prostate or bladder problems, or heart, thyroid, or liver disease. · tell your doctor if you are , plan to become , or are . If you become while using umeclidinium and vilanterol, call your doctor. · you should know that umeclidinium and vilanterol inhalation sometimes causes wheezing and difficulty breathing immediately after it is inhaled. If this happens, call your doctor right away. Do notuse umeclidinium and vilanterol inhalation again unless your doctor tells you that you should. What SPECIAL DIETARY instructions should I follow? Unless your doctor tells you otherwise, continue your normal diet. What should I do IF I FORGET to take a dose? Inhale the missed dose as soon as you remember it. However, if it is almost time for the next dose,skip the missed dose and continue your regular dosing schedule. Do not use more than one dose in a day and do not inhale a double dose to make up for a missed one. What SIDE EFFECTS can this medicine cause? Some side effects can be serious. If you experience any of these symptoms, stop using umeclidinium and vilanterol and call your doctor immediately or get emergency medical treatment: · rash; hives; itching; trouble breathing; or swelling of the face, mouth, or tongue · pounding, fast, or irregular heartbeat · chest pain · eye pain, redness, or discomfort; blurred vision; seeing halos or bright colors around lights, sometimes along with nausea and vomiting · difficulty urinating or urinating in a weak stream or drips · frequent or painful urination Umeclidinium and vilanterol may cause other side effects. Call your doctor if you have any unusual problems while using this medication. If you experience a serious side effect, you or your doctor may send a report to the Food and Drug Administration's (FDA) MedWatch Adverse Event Reporting program online (https://www.fda.gov/Safety/MedWatch) or by phone ( ). What should I know about STORAGE and DISPOSAL of this medication? Keep this medication in the foil tray it came in, tightly closed, and out of reach of children. Store it at room temperature and away from sunlight, excess heat and moisture (not in the bathroom). Dispose of the inhaler 6 weeks after you remove it from the foil tray or after every blister has been used (when the dose counter reads 0), whichever comes first. Unneeded medications should be disposed of in special ways to ensure that pets, children, and otherpeople cannot consume them. However, you should not flush this medication down the toilet. Instead,the best way to dispose of your medication is through a medicine take-back program. Talk to your pharmacist or contact your local garbage/recycling department to learn about take-back programs in your community. See the FDA's Safe Disposal of Medicines website (https://goo.gl/c4Rm4p) for more information if you do not have access to a take-back program. It is important to keep all medication out of sight and reach of children as many containers (such as weekly pill minders and those for eye drops, creams, patches, and inhalers) are not child-resistant and young children can open them easily. To protect young children from poisoning, always lock safety caps and immediately place the medication in a safe location - one that is up and away and out of their sight and reach. https://www.upandaway.org What should I do in case of OVERDOSE? In case of overdose, call the poison control helpline at . Information is also available online at https://www.poisonhelp.org/help. If the victim has collapsed, had a seizure, has trouble breathing, or can't be awakened, immediately call emergency services at 429. Symptoms of overdose may include the following: · seizures · chest pain · shortness of breath · dizziness · fast, pounding, or irregular heartbeat · nervousness · headache · shaking of a part of your body that you cannot control · muscle cramps or weakness · dry mouth · dry skin · nausea · dizziness · excessive tiredness · difficulty falling asleep or staying asleep · blurred vision · dilated pupils · seeing things or hearing voices that do not exist (hallucinating) What OTHER INFORMATION should I know? Keep all appointments with your doctor. Before having any laboratory test (especially those that involve methylene blue), tell your doctor and the laboratory personnel that you are using umeclidinium and vilanterol. Do not let anyone else take your medication. Ask your pharmacist any questions you have about refilling your prescription. It is important for you to keep a written list of all of the prescription and nonprescription (xzns-iia-omziias) medicines you are taking, as well as any products such as vitamins, minerals, or otherdietary supplements. You should bring this list with you each time you visit a doctor or if you areadmitted to a hospital. It is also important information to carry with you in case of emergencies. This report on medications is for your information only, and is not considered individual patient advice. Because of the changing nature of drug information, please consult your physician or pharmacist about specific clinical use. The [place] [employer] represents that the information provided hereunder was formulated with a reasonable standard of care, and in conformity with professional standards in the field. The [place] [employer] makes no representations or warranties, express or implied, including, but not limited to, any implied warranty of merchantability and/or fitness for a particular purpose, with respect to such information and specifically disclaims all such warranties. Users are advised that decisions regarding drug therapy are complex medical decisions requiring the independent, informed decision of an appropriate health inspector health care facilities, and the information is provided for informational purposes only. The entire monograph for a drug should be reviewed for a thorough understanding of the drug's actions, uses and side effects. The [place] [employer] does not endorse or recommend the use of any drug.The information is not a substitute for medical care. FS® Patient Medication Information?. © Copyright, 2023. The [place]®, [address], [address], [place], [place]. All Rights Reserved. Duplication for commercial use must be authorized by [facility]. Selected Revisions: July 12, 2022. FS® Patient Medication Information?. © Copyright, 2024 * Pt Handout (on AVS) - Jeanna Cee RN - 10/28/2024 1:40 PM EDT [id number] Budesonide Oral Inhalation Brand Name(s): Pulmicort®, Pulmicort® Flexhaler, Pulmicort® Respules, Symbicort® (as a combination product containing Budesonide, Formoterol); also available generically WHY is this medicine prescribed? Budesonide is used to prevent difficulty breathing, chest tightness, wheezing, and coughing caused by asthma. Budesonide powder for oral inhalation (Pulmicort Flexhaler) is used in adults and children 6 years of age and older. Budesonide suspension (liquid) for oral inhalation (Pulmicort Respules) is used in children 12 months to 8 years of age. Budesonide belongs to a class of medications calledcorticosteroids. It works by decreasing swelling and irritation in the airways to allow for easier breathing. HOW should this medicine be used? Budesonide comes as a powder to inhale by mouth using an inhaler and as a suspension to inhale by mouth using a special jet nebulizer (machine that turns medication into a mist that can be inhaled). Budesonide powder for oral inhalation is usually inhaled twice a day. Budesonide suspension for oral inhalation is usually inhaled once or twice a day. Try to use budesonide at around the same time(s)every day. Follow the directions on your prescription label carefully, and ask your doctor or pharmacist to explain any part you do not understand. Use budesonide exactly as directed. Do not use moreor less of it or use it more often than prescribed by your doctor. Talk to your doctor about how you should use your other oral and inhaled medications for asthma during your treatment with budesonide inhalation. If you were taking an oral steroid such as dexamethasone, methylprednisolone (Medrol), or prednisone (Ricardo), your doctor may want to gradually decrease your steroid dose starting after you begin to use budesonide. Budesonide controls symptoms of asthma but does not cure it. Improvement in your asthma may occur as soon after using the medication, but full effects of may not be seen for 1 to 2 weeks after using the powder and 4 to 6 weeks after using the suspension on a regular basis. Continue to use budesonide even if you feel well. Do not stop using budesonide without talking to your doctor. Call your doctor if your symptoms or your child's symptoms do not improve during the first 2 weeks (powder) or first 6 weeks (suspension) or if they get worse. Budesonide helps to prevent asthma attacks (sudden episodes of shortness of breath, wheezing, and coughing) but will not stop an asthma attack that has already started. Your doctor will prescribe a short-acting inhaler to use during asthma attacks. Tell your doctor if your asthma worsens during your treatment. Each budesonide inhaler is designed to provide 60 or 120 inhalations, depending on its size. After the labeled number of inhalations has been used, later inhalations may not contain the correct amount of medication. You should keep track of the number of inhalations you have used. You can divide the number of inhalations in your inhaler by the number of inhalations you use each day to find out how many days your inhaler will last. Dispose of the inhaler after you have used the labeled number ofinhalations even if it still contains some liquid and continues to release a spray when it is pressed. Do not swallow budesonide nebulizer suspension. Before you use budesonide inhaler or jet nebulizer the first time, read the written instructions that come with it. Look at the diagrams carefully and be sure that you recognize all the parts of the inhaler or nebulizer. Ask your doctor, pharmacist, or respiratory therapist to show you the right way to use the inhaler or nebulizer. Practice using the inhaler or nebulizer in front of him or her, so you are sure you are doing it the right way. To inhale the powder using the inhaler, follow these steps: · Turn the protective cover and lift it off. · The first time you use a new budesonide inhaler you must prime it. To do this, hold the inhaler upright (with mouthpiece up), then twist the brown tanning solution maker fully to the right as far as it will go, then back again fully to the left. You will hear a click. Repeat. The unit is now primed and ready to load the first dose. You do not have to prime the inhaler again after this, even if you do not use itfor a long time. · Holding the inhaler upright, load the first dose by turning the tanning solution maker fully to the right and fully to the left until it clicks. · Turn your head away from the inhaler and breathe out. Do not blow or exhale into the inhaler. Donot shake the inhaler after loading it. · Hold the inhaler in the upright (mouthpiece up) or horizontal position. Place the mouthpiece between your lips well into your mouth. Tilt your head slightly back. Close your lips tightly around the mouthpiece, but do not bite or chew the mouthpiece. Inhale deeply and forcefully. Be sure that themist goes into your throat and is not blocked by your teeth or tongue. · Remove the inhaler from your mouth and hold your breath for about 10 seconds. Do not blow or exhale through the inhaler. · If you are to inhale two puffs, repeat steps 4-6. For the next puff the inhaler must be loaded in the upright position right before its use. Turn the tanning solution maker fully to the right and then fully to the left until it clicks. · Replace the protective cap on the inhaler and twist it shut. · After each treatment, rinse your mouth with water and spit. Do not swallow the water. · Keep the inhaler clean and dry with the cover tightly in place at all times. To inhale the suspension using the jet nebulizer, follow these steps: · Remove one ampule of inhalation suspension from the foil pouch. · Gently shake the ampule in a circular motion. · Hold the ampule upright and twist off the top of the ampule. Pour all of the liquid into the nebulizer reservoir. Do not mix other medications with budesonide in the reservoir. · Connect the nebulizer reservoir to the mouthpiece or face mask. · Connect the nebulizer to the compressor. · Place the mouthpiece in your child's mouth or use the face mask. Have your child sit in an upright, comfortable position and turn on the compressor. · Tell your child to breathe in calmly, deeply, and evenly until mist stops forming in the chamber. · After each treatment, have your child rinse their mouth with water and spit; do not swallow thewater. · Dispose of the empty ampule and its top in a trash can that is out of the reach of children and pets. · Clean your nebulizer regularly. Follow the production planner's directions carefully and ask your doctor or pharmacist if you have any questions about cleaning your nebulizer. Are there OTHER USES for this medicine? This medication is sometimes prescribed for other uses; ask your doctor or pharmacist for more information. What SPECIAL PRECAUTIONS should I follow? Before using budesonide inhalation, · tell your doctor and pharmacist if you are allergic to budesonide, any other medications, or anyof the ingredients in budesonide inhalation powder or nebulizer solution. If you will be using the inhalation powder, also tell your doctor if you are allergic to milk proteins. Ask your pharmacist or check the Medication Guide for a list of the ingredients. · tell your doctor and pharmacist what prescription and nonprescription medications, vitamins, nutritional supplements, and herbal products you are taking or plan to take while using budesonide inhalation. Your doctor may need to change the doses of your medications or monitor you carefully for side effects. · do not use budesonide during an asthma attack. Your doctor will prescribe a short-acting inhalerto use during asthma attacks. Call your doctor if you have an asthma attack that does not stop whenusing the fast-acting asthma medication, or if you need to use more of the fast-acting medication than usual. · tell your doctor if you or anyone in your family has or has ever had osteoporosis (a condition in which the bones become thin and weak and break easily) and if you have or have ever had tuberculosis (TB; a serious lung infection) in your lungs, cataracts (clouding of the lens of the eye), glaucoma (an eye disease) or high pressure in the eye, or liver disease. Also tell your doctor if you haveany type of untreated infection anywhere in your body or a herpes eye infection (a type of infection that causes a sore on the eyelid or eye surface). · tell your doctor if you are , plan to become , or are . If you become while using budesonide, call your doctor. · if you are having surgery, including dental surgery, tell the doctor or dentist that you are using budesonide. · if you have any other medical conditions, such as asthma, arthritis, or eczema (a skin disease),they may worsen when your oral steroid dose is decreased. Tell your doctor if this happens or if you experience any of the following symptoms during this time: extreme tiredness, muscle weakness or pain; sudden pain in stomach, lower body or legs; loss of appetite; weight loss; upset stomach; vomiting; diarrhea; dizziness; fainting; depression; irritability; and darkening of skin. Your body may be less able to cope with stress such as surgery, illness, severe asthma attack, or injury during this time. Call your doctor right away if you get sick and be sure that all healthcare providers who treat you know that you recently replaced your oral steroid with budesonide inhalation. Carry a card or wear a medical identification bracelet to let emergency personnel know that you may need to be treated with steroids in an emergency. · tell your doctor if you have never had chickenpox or measles and you have not been vaccinated against these infections. Stay away from people who are sick, especially people who have chickenpox ormeasles. If you are exposed to one of these infections or if you develop symptoms of one of these infections, call your doctor right away. You may need treatment to protect you from these infections. · you should know that budesonide inhalation sometimes causes wheezing and difficulty breathing immediately after it is inhaled. If this happens, use your fast-acting (rescue) asthma medication right away and call your doctor. Do not use budesonide inhalation again unless your doctor tells you that you should. What SPECIAL DIETARY instructions should I follow? Unless your doctor tells you otherwise, continue your normal diet. What should I do IF I FORGET to take a dose? Skip the missed dose and continue your regular dosing schedule. Do not use a double dose to make upfor a missed one. What SIDE EFFECTS can this medicine cause? Some side effects can be serious. If you experience any of the following symptoms or those in the SPECIAL PRECAUTIONS section, call your doctor immediately or get emergency medical treatment: · white spots or sores in your mouth · rash · hives · itching · swelling of the face, throat, tongue, lips, eyes, hands, feet, ankles, or lower legs · hoarseness · difficulty breathing or swallowing · wheezing · cough · chest pain · anxiety · fever, chills, or other signs of infection · tiredness · nausea · vomiting · weakness · changes in vision Budesonide inhalation may cause children to grow more slowly. There is not enough information to tell whether using budesonide decreases the final height that children will reach when they stop growing. Your child's doctor will watch your child's growth carefully while your child is using budesonide. Talk to your child's doctor about the risks of giving this medication to your child. In rare cases, people who used budesonide for a long time developed glaucoma or cataracts. Talk to your doctor about the risks of using budesonide and how often you should have your eyes examined during your treatment. Budesonide may increase your risk of developing osteoporosis (a condition in which the bones becomethin and weak and break easily). Talk to your doctor about the risks of using this medication. Budesonide inhalation may cause other side effects. Call your doctor if you have any unusual problems while using this medication. If you experience a serious side effect, you or your doctor may send a report to the Food and Drug Administration's (FDA) MedWatch Adverse Event Reporting program online (https://www.fda.gov/Safety/MedWatch) or by phone ( ). What should I know about STORAGE and DISPOSAL of this medication? Keep this medication in the container it came in, tightly closed, and out of reach of children. Keep the nebulizer ampules sealed in their foil pouches until you are ready to use them. Store the inhaler and nebulizer solution at room temperature and away from excess heat and moisture (not in the bathroom). Do not refrigerate or freeze the nebulizer solution. If you are using the inhalation powder, replace your old inhaler each time you refill your prescription. If you are using the nebulizer solution, you must dispose of the ampules if unused 2 weeks after opening the foil pouch. It is important to keep all medication out of sight and reach of children as many containers (such as weekly pill minders and those for eye drops, creams, patches, and inhalers) are not child-resistant and young children can open them easily. To protect young children from poisoning, always lock safety caps and immediately place the medication in a safe location - one that is up and away and out of their sight and reach. https://www.[facility].org Unneeded medications should be disposed of in special ways to ensure that pets, children, and otherpeople cannot consume them. However, you should not flush this medication down the toilet. Instead,the best way to dispose of your medication is through a medicine take-back program. Talk to your pharmacist or contact your local garbage/recycling department to learn about take-back programs in your community. See the FDA's Safe Disposal of Medicines website (https://goo.gl/c4Rm4p) for more information if you do not have access to a take-back program. What OTHER INFORMATION should I know? Keep all appointments with your doctor and the laboratory. Do not let anyone else use your medication. Ask your pharmacist any questions you have about refilling your prescription. It is important for you to keep a written list of all of the prescription and nonprescription (qcvp-[id number]) medicines you are taking, as well as any products such as vitamins, minerals, or otherdietary supplements. You should bring this list with you each time you visit a doctor or if you areadmitted to a hospital. It is also important information to carry with you in case of emergencies. This report on medications is for your information only, and is not considered individual patient advice. Because of the changing nature of drug information, please consult your physician or pharmacist about specific clinical use. The [place] [employer] represents that the information provided hereunder was formulated with a reasonable standard of care, and in conformity with professional standards in the field. The [place] [employer] makes no representations or warranties, express or implied, including, but not limited to, any implied warranty of merchantability and/or fitness for a particular purpose, with respect to such information and specifically disclaims all such warranties. Users are advised that decisions regarding drug therapy are complex medical decisions requiring the independent, informed decision of an appropriate health inspector health care facilities, and the information is provided for informational purposes only. The entire monograph for a drug should be reviewed for a thorough understanding of the drug's actions, uses and side effects. The [place] [employer] does not endorse or recommend the use of any drug.The information is not a substitute for medical care. FS® Patient Medication Information?. © Copyright, 2023. [employer] [place] [employer]®, [facility], [address], [place], [place]. All Rights Reserved. Duplication for commercial use must be authorized by [facility]. Selected Revisions: June 12, 2015. AHFS® Patient Medication Information?. © Copyright, 2024 * Ancillary Progress Note - Tiesha Solis BSW - 10/28/2024 10:55 AM EDT CARE MANAGEMENT - ADULT DISCHARGE NOTE [address] [id number] Name: Bhumika Flores Location: [facility] B730/A Date: 10/28/2024 Time: 10:55 AM The following coordination of care and discharge plan has been coordinated with the care team, patient, family and/or caregiver according to the patients’ needs and preferences. Discharge Discharge Second Notice Important Message from Medicare delivered: Not Applicable (10/28/24 1036) Discharge Transportation: Family/Friends drive (10/28/24 1036) Date of scheduled discharge transportation: 10/28/24 (10/28/24 1036) Patient declined post-hospital transition of care recommendation: [facility] Facility (10/28/24 1036) Final Discharge Plan (Complete only at time of Discharge): Home - Self Care (10/28/24 1037) Narrative: Discharge destination time-out called during BOOST rounds, all parties agreeable with transition plan of care. Per service patient does not have transportation until tomorrow. SW met with patient and offered to assist with transportation, patient declined and stated she will call [facility] to pick her up. Patient confirmed [facility] will bring oxygen tank. Patient declined D&A resources, will return to methadone once discharged. Any changes to discharge plan notify care management. * Pt Handout (on AVS) - Jamar Nelson RN - 10/28/2024 7:57 AM EDT [id number] Discharge Instructions: COPD You have been diagnosed with chronic obstructive pulmonary disease (COPD). This group of diseases that limit the flow of air in and out of your lungs. This makes it harder to breathe. With COPD, you are also more likely to get lung infections. COPD includes chronic bronchitis and emphysema. COPD ismost often caused by heavy, long-term cigarette smoking. Home care Quit smoking · If you smoke, get help to quit. It's the best thing you can do for your COPD and your overall health. · Join a program to stop smoking. There are even telephone, text message, and online programs to help you quit. · Ask your healthcare provider about medicines or other methods to help you quit. · Ask family members to quit smoking as well. · Don't allow people to smoke in your home, in your car, or when they are around you. · Don't use e-cigarettes and vaping products because their long-term risks aren't known. Protect yourself from infection · Wash your hands often. Do your best to keep your hands away from your face. Most germs are spread from your hands to your mouth. · Get a flu shot every year. Also ask your healthcare provider about pneumonia vaccines and the most recent COVID vaccine. · Stay away from crowds. It's especially important to do this in the winter when more people have colds and flu. · Get enough sleep, exercise regularly, and eat a balanced diet to stay healthy. : o Get about 8 hours of sleep every night. o Try to exercise for at least 30 minutes on most days. Ask your healthcare provider what type of exercise is safe for you. o Have healthy foods, including fruits and vegetables, 100% whole grains, lean meats and fish, and low-fat dairy products. Try to stay away from foods high in fats and sugar. Eating a healthy, balanced diet is important to staying as healthy as possible. So is trying to stay at your ideal weight. Being overweight or underweight can affect your health. Take your medicines and use oxygen therapy Take your medicines exactly as directed. Don't skip doses. Talk with your healthcare provider during each appointment about how well you can: · Correctly use your inhaler. This is to make sure you are getting the correct medicine dose. · Scenic with other conditions you have and their treatments and if they affect your COPD Use oxygen correctly if you use it. That means the amount you use and the length of time you use it. · Discuss long-term oxygen therapy with your provider. · Don?t allow smoking in your home, in your car, or around you. This is very important if you use oxygen. Try to stay away from things that may affect your breathing. Stay away from indoor and outdoor pollution. Indoor pollution includes burning wood, smoke from home cooking, and heating fuels. Outdoor pollution includes smoke, dusts, vapors, fumes, gases, and other chemicals. It also includes cold weather, high humidity, and allergens. Drink at least 8 glasses of fluid every day to keep mucus thin unless your provider has told you otherwise. Ask about other things that can help. Ask your provider to show you how to breathe through pursed lips to help decrease shortness of breath. Manage your stress Stress can make COPD worse. Use this stress management method: · Find a quiet place and sit or lie in a comfortable position. · Close your eyes and do breathing exercises for several minutes. Ask your provider about the bestway to breathe. Talk to your healthcare provider about your ability to cope in your normal environment. Pulmonary rehabilitation · Pulmonary rehab can help you feel better. Programs that are based in the community or at home work as well as those based in a hospital as long as they are held as often and are at the same intensity. Standard pulmonary rehab programs based at home help with breathing problems in people with COPD. Traditional supervised pulmonary rehab is still the best choice for people with COPD. These programs include exercise, breathing methods, information about COPD, counseling, and help for smokers. · Ask your provider or your local hospital about programs in your area. Also talk with your healthcare provider about a self-management program to help control your symptoms. When to call your healthcare provider Call your provider right away if you have: · More mucus · Yellow, green, bloody, or smelly mucus · Fever of 100.4ºF (38ºC) or higher, or as directed by your healthcare provider · Chills · Swollen ankles · Increased cough Call 911 Call 911 if you have: · Shortness of breath, wheezing, or trouble breathing that gets worse or doesn't get better with treatment · Tightness in your chest that does not go away with your normal medicines, or as directed by yourhealthcare provider · A new irregular heartbeat or feeling that your heart is racing · Trouble talking · Feeling lightheaded or dizzy · Feeling of doom · Skin turning blue, lima, or purple Last Reviewed Date: 2022 00:00:00 © [employer]. All rights reserved. This information is not intended as a substitute for professional medical care. Always follow your healthcare professional's instructions. * Pt Handout (on AVS) - Jamar Nelson RN - 10/28/2024 7:56 AM EDT [id number] Alcohol Withdrawal Alcohol withdrawal often starts after prolonged heavy drinking, and then you suddenly stop drinking. Or you cut down on your alcohol use. It is not one thing. It is a complex combination of signs andsymptoms that often define a certain problem or condition. · Alcohol withdrawal is potentially life-threatening. It is a medical emergency. · It can start as early as a couple of hours after your last drink. Or it may take 1 to 3 days to develop. · It can last from days to a week or more. · It can worsen very quickly. Signs and symptoms There are several stages of alcohol withdrawal. But they overlap, as do their signs and symptoms. In the earlier stages, it most often includes: · Anxiety · Shakiness · Nausea and vomiting · Sweating · Insomnia · Headaches · Fever · Mood swings, irritability, agitation, restlessness Delirium tremens (DTs) DTs is a severe and life-threatening complication of alcohol withdrawal. In people who chronically use alcohol and abruptly stop, DTs can start as early as 48 hours after the last alcohol intake. Thesymptoms can last up to 5 days and are potentially life-threatening. Medical care should be sought. Symptoms of DTs include: · Sudden and severe mental or nervous system changes · Uncontrollable tremors · Severe disorientation, confusion, hallucinations · Heart racing, or irregular heartbeat · High blood pressure · Seizures · Possible coma and Home care · You'll need plenty of rest and fluids over the next several days. Eat regular meals and drink plenty of fluids to prevent dehydration. Don't drink any more alcohol. · During this time, it is best that you're not alone. Stay with family or friends who can help andsupport you. You can also admit yourself to a residential detox program. · Don't drive until all symptoms are gone and you are feeling better. If you've had a seizure, don't drive until you've been examined by a healthcare provider. · If you were given sedative medicine to reduce your symptoms, don't take it more often than prescribed. Never take it with alcohol. Follow-up care Once you've gone through the withdrawal symptoms, you've fought half of the wang. To avoid the risk of going back to your past drinking pattern, it's vital that you get follow-up support and treatment. · Alcoholics Anonymous (AA) offers support through a self-help fellowship. There are no dues or fees. Search the Internet or go to the AA website at www.aa.org to find a local meeting place. · [employer] offers support to families of alcohol users. Go to the Al-Anon website at www.al-anon.org . · FindTreatment is a confidential and anonymous resource for people seeking treatment for mental and substance use disorders. Go to https://findtreatment.gov/. · Residential alcohol detox programs are available. Search the internet for treatment centers in your area. Call 911 Call 911 if any of these occur: · Seizure · Trouble breathing or slow, irregular breathing · Chest pain · Sudden weakness on a side of the body or sudden trouble speaking · Heavy bleeding or vomiting blood · Very drowsy or trouble awakening · Fainting or loss of consciousness · Rapid heart rate When to get medical advice Call your healthcare provider right away if any of these occur: · Severe shakiness · Hallucinations · Fever over 100.4º F (38.0º C) · Headache, confusion, extreme drowsiness, inability to awaken · Increasing upper abdominal pain · Repeated vomiting Last Reviewed Date: 2024 00:00:00 © [employer]. All rights reserved. This information is not intended as a substitute for professional medical care. Always follow your healthcare professional's instructions. * Care Plan - Nory Foley RN - 10/28/2024 6:12 AM EDT Clinical Goal(s): Patient will verbalize shortness of breath this shift. (10/28/24 0000) Possible barriers to meeting goal(s)/advancing plan of care: pnemonia Stability of the patient: Moderately stable - low risk of patient condition declining or worsening Summary regarding today's goal(s): Met: Patient did not verbalize shortness of breath this shift. Recommendations: Increase patient activity as tolerated. * Ancillary Progress Note - Tiesha Solis BSW - 10/27/2024 1:13 PM EDT CARE MANAGEMENT - ADULT TRANSITION NOTE [address] [address] Name: Bhumika Flores Location: [facility] B730/A Date: 10/27/2024 Time: 1:18 PM Risk Stratification Risk Stratification Psycho Social / Medical Concerns Identified: Adjustment to illness/injury (10/23/241516) Accessed [employer] to connect patients to social care resources: No (10/23/241516) OBRA or OPTIONS needed for placement: No (10/23/241516) Readmission Risk Score: 18.22 (10/27/24 1201) AM-PAC Score With Stairs : 18 (10/27/24 1100) Caregiver Information Emergency Contacts None on File Other Contacts Name Relation Home Work Mobile Julio Menendez Other - (no specific identity) [phone] Transition of Care Checklist Narrative: Patient discussed in IDT-Patient approaching medical stability. SW met with patient to discuss inpatient VS out patient D&A rehab. Patient declined inpatient D&A. Patient declined resources for alcohol dependency. Patient reports she will follow up with the methadone clinic for additional resources if needed. Anticipated Transportation at Discharge: family Patient/Family Expectations: return home Transition Planning Transition Planning Transition Plan/Considerations: Discussed at Interdisciplinary Team / Boost Rounds;Needs identified- Discharge planning services explained to patient family / caregiver - Choices offered (10/27/24 131) Transition services explained and patient/family/caregiver agreeable: Rehabilitation, Drug/Alcohol (10/27/24 131) Transition plan discussed with - Enter name and phone #: patient (10/27/241313) Additional Considerations: - Care Management will continue to monitor and assist with discharge planning needs * Respiratory Progress Note - Rowan Morocho RRT - 10/27/2024 9:57 AM EDT PDP RE-EVALUATION NOTE - Respiratory Care Services [address] [address] Name: Bhumika Flores Location: [facility] [place] B730/A Date: 10/27/2024 Time: 9:57 AM Patient Driven Protocol Summary: Re-evaluation . This Treatment Plan and medications will be reviewed by the Primary Care Team for any contraindications. Respiratory Care Treatment Plan Aerosol Therapy Treatment:: Hand Held Nebulizer Tx QID+ (QID and PRN) with Albuterol Sulfate: Unit dose 0.083%. to reduce work of breathing and improve pulmonary gas exchange. Additional Aerosolized Treatments: Hand Held Nebulizer Tx BID with Budesonide: 0.25mg / 2ml. to suppress bronchial inflammation and edema by the use of systemic steroid sparing therapy. Additional Aerosolized Treatments: Inhaler(s) QDAY with Anoro Ellipta (Umeclidinium 62.5 mcg and Vilanterol 25 mcg inhalation powder) / 1 inhalation. to reduce work of breathing and improve pulmonary gas exchange. . Pulmonary Volume Expansion Therapy: Incentive Spirometry PRN to prevent or treat alveolar consolidation and atelectasis. . Secretion Management Treatment: Flutter TherapyPRN to enhance mobilization of secretions. .. The patient will be re-evaluated: within 48 hours. The Triage Level is: (Assessment Score = 6 -10) Level 4. Triage Level Definitions: Level 1 Severe Respiratory/Airway Compromise Level 2 Moderate Respiratory/Airway Compromise or high risk for pulmonary complications Level 3 Mild Respiratory/Airway Compromise or moderate risk for pulmonary complications Level 4 Episodic Respiratory/Airway Compromise or low risk for pulmonary complications Level 5 No Respiratory/Airway Compromise Triage 1 Triage 2 Triage 3 Triage 4 Triage 5 greater than 20 16 - 20 11 - 15 6 - 10 0 - 5 Medical Record Assessment Clinical Findings Pulmonary Status: 3 - Pulm Impairment (acute or chronic) w/o exacerbation, or 1 - 2 rib fractures Surgical Status: 0 - No Surgical History Chest X-Ray: 0 - Not Performed or performed greater than 3 days ago Assessment Score: 3 Patient Assessment Clinical Findings Respiratory Pattern: 0 - RR 12 - 20; Patient only gets breathless with strenuous exercise. Breath Sounds: 3 - Crackles, mild wheezes, coarse bronchial, upper airway noises Cough Effectiveness: 0 - Strong non-productive Sputum Production 0 - No sputum production Level of Activity: 1 - Ambulatory with assist O2 needed to keep SpO2 greater than or equal to 92%: 2 - Oxygen 4-6 LPM or FiO2 35-50% Assessment Score: 6 Total Assessment Score: 9 Breath Sounds: Expiratory wheezes bilaterally.. Cough and Sputum: An effective cough produced no sputum... Vital Signs: Resp: 20 (10/27/24552) Pulse: 61 (10/27/24552) Temp: 37 °C (98.6 °F) (10/27/24552) BP: 118/56 (10/27/24552) SpO2: 98 % (10/27/24552) Primary Service: Med S. Admitting Diagnosis: Dyspnea [R06.00] Pulmonary Diagnosis: COPD. * Care Plan - Jeanna Victor RN - 10/27/2024 7:44 AM EDT Clinical Goal(s): patient will not fall during this shift (10/26/242043) Possible barriers to meeting goal(s)/advancing plan of care: weakn ess Stability of the patient: Moderately unstable - medium risk of patient condition declining or worsening Summary regarding today's goal(s): Met: patient did not fall Recommendations: supervision to bathroom * Progress Notes - Non-Billable - Rafia Viveros OSA - 10/26/2024 3:51 PM EDT Peer Support Documentation Type of Contact: [email or web address] at Inpatient Recovery Intervention: engaging S:I met with Bhumika, she acknowledged her AUD, but has not decided if she will go to IP rehab for alcohol cessation. SHe said she needs to feel better before making plans. Reason for visit: peer recovery support Patient goals: didn't specify, but wants to do something about her drinking. O: How is the patient presenting? Physically uncomfortable Level of Awareness: drowsy Behavior: eye contact: yes mannerisms: lying in bed A: Peer Assessment of Progress Strengths Based Assessment: A Strengths Based Assessment was not completed for today's visit. P: Plan Is the patient being referred to treatment? no, they were given these resources: I will provide Bhumika with community resources for alcohol cessation and assist with IP placement if she decides to go. . * Care Plan - Cornell Roche RN - 10/26/2024 12:38 AM EDT Problem: Actual & Potential for Falls Goal: Patient will remain free of falls. Outcome: Progressing Problem: Decreased Cardiac Output Goal: Patient will have improved cardiac output. Outcome: Progressing Problem: Alteration in Fluid Balance Goal: Patient will achieve & maintain optimal fluid balance. Outcome: Progressing Problem: Ineffective Breathing Pattern Goal: Patient will achieve & maintain effective breathing pattern. Outcome: Progressing Problem: Activity Intolerance & Impaired Mobility Goal: Patient will maintain optimal mobility & activity level. Outcome: Progressing Problem: Knowledge Deficit Goal: Patient & caregiver will demonstrate understanding. Outcome: Progressing Problem: Pain & Impaired Comfort Goal: Patient's pain & discomfort is manageable. Outcome: Progressing Problem: Safety & Risk for Injury Goal: Patient will remain free from injury. Outcome: Progressing Problem: Daily Care & Potential Self-Care Deficit Goal: Patient's daily care needs are met. Outcome: Progressing Problem: Risk for Impaired Physical Mobility Goal: Patient will maintain optimal mobility level. Outcome: Progressing Problem: Knowledge Deficit Goal: Patient & caregiver will demonstrate understanding. Outcome: Progressing Problem: Discharge Barriers Goal: Patient's discharge needs are met. Outcome: Progressing Clinical Goal(s): pt safety (10/25/24 1344) Possible barriers to meeting goal(s)/advancing plan of care: Acuity of current illness Stability of the patient: Moderately stable - low risk of patient condition declining or worsening Summary regarding today's goal(s): Met: FT Recommendations: Continue current POC * Ancillary Progress Note - Veronica Ashraf RRT - 10/25/2024 12:17 PM EDT PDP RE-EVALUATION NOTE - Respiratory Care Services [facility] [place] [address] Name: Bhumika Flores Location: [facility] [place] B730/B Date: 10/25/2024 Time: 12:18 PM Patient Driven Protocol Summary: Re-evaluation . This Treatment Plan and medications will be reviewed by the Primary Care Team for any contraindications. Respiratory Care Treatment Plan Aerosol Therapy Treatment:: Hand Held Nebulizer Tx QID with Albuterol Sulfate: Unit dose 0.083%. to reduce work of breathing and improve pulmonary gas exchange. Additional Aerosolized Treatments: Hand Held Nebulizer Tx BID with Budesonide: 0.25mg / 2ml. to suppress bronchial inflammation and edema by the use of systemic steroid sparing therapy. Additional Aerosolized Treatments: Inhaler(s) QDAY with Anoro Ellipta (Umeclidinium 62.5 mcg and Vilanterol 25 mcg inhalation powder) / 1 inhalation. to reduce work of breathing and improve pulmonary gas exchange. . Pulmonary Volume Expansion Therapy: Incentive Spirometry PRN to prevent or treat alveolar consolidation and atelectasis. . Secretion Management Treatment: Flutter TherapyPRN to enhance mobilization of secretions. .. The patient will be re-evaluated: within 48 hours. The Triage Level is: (Assessment Score = 11-15) Level 3. Triage Level Definitions: Level 1 Severe Respiratory/Airway Compromise Level 2 Moderate Respiratory/Airway Compromise or high risk for pulmonary complications Level 3 Mild Respiratory/Airway Compromise or moderate risk for pulmonary complications Level 4 Episodic Respiratory/Airway Compromise or low risk for pulmonary complications Level 5 No Respiratory/Airway Compromise Triage 1 Triage 2 Triage 3 Triage 4 Triage 5 greater than 20 16 - 20 11 - 15 6 - 10 0 - 5 Medical Record Assessment Clinical Findings Pulmonary Status: 3 - Pulm Impairment (acute or chronic) w/o exacerbation, or 1 - 2 rib fractures Surgical Status: 0 - No Surgical History Chest X-Ray: 2 - Infiltrates and/or Atelectasis Assessment Score: 5 Patient Assessment Clinical Findings Respiratory Pattern: 0 - RR 12 - 20; Patient only gets breathless with strenuous exercise. Breath Sounds: 3 - Crackles, mild wheezes, coarse bronchial, upper airway noises Cough Effectiveness: 0 - Strong non-productive Sputum Production 0 - No sputum production Level of Activity: 1 - Ambulatory with assist O2 needed to keep SpO2 greater than or equal to 92%: 2 - Oxygen 4-6 LPM or FiO2 35-50% Assessment Score: 6 Total Assessment Score: 11 Breath Sounds: Expiratory wheezes bilaterally.. Cough and Sputum: An effective cough produced no sputum... Vital Signs: Resp: 20 (10/25/24 1033) Pulse: 65 (10/25/24 1033) Temp: 36.8 °C (98.2 °F) (10/25/24 1033) BP: 126/64 (10/25/24 1033) SpO2: 91 % (10/25/24 103) Primary Service: Med S. Admitting Diagnosis: Dyspnea [R06.00] Pulmonary Diagnosis: COPD. * Care Plan - India Schneider RN - 10/25/2024 10:12 AM EDT Clinical Goal(s): pt safety (10/25/24 0700) Possible barriers to meeting goal(s)/advancing plan of care: weakness Stability of the patient: Moderately stable - low risk of patient condition declining or worsening Summary regarding today's goal(s): Met: pt was free from falls and injury Recommendations: continue plan of care and fall precautions * Care Plan - Cornell Roche RN - 10/25/2024 1:01 AM EDT Problem: Actual & Potential for Falls Goal: Patient will remain free of falls. Outcome: Progressing Problem: Decreased Cardiac Output Goal: Patient will have improved cardiac output. Outcome: Progressing Problem: Alteration in Fluid Balance Goal: Patient will achieve & maintain optimal fluid balance. Outcome: Progressing Problem: Ineffective Breathing Pattern Goal: Patient will achieve & maintain effective breathing pattern. Outcome: Progressing Problem: Activity Intolerance & Impaired Mobility Goal: Patient will maintain optimal mobility & activity level. Outcome: Progressing Problem: Knowledge Deficit Goal: Patient & caregiver will demonstrate understanding. Outcome: Progressing Problem: Pain & Impaired Comfort Goal: Patient's pain & discomfort is manageable. Outcome: Progressing Problem: Safety & Risk for Injury Goal: Patient will remain free from injury. Outcome: Progressing Problem: Daily Care & Potential Self-Care Deficit Goal: Patient's daily care needs are met. Outcome: Progressing Problem: Risk for Impaired Physical Mobility Goal: Patient will maintain optimal mobility level. Outcome: Progressing Problem: Knowledge Deficit Goal: Patient & caregiver will demonstrate understanding. Outcome: Progressing Problem: Discharge Barriers Goal: Patient's discharge needs are met. Outcome: Progressing Clinical Goal(s): Patient will remain free from falls and injuries (10/24/24 0700) Possible barriers to meeting goal(s)/advancing plan of care: Acuity of current illness Stability of the patient: Moderately stable - low risk of patient condition declining or worsening Summary regarding today's goal(s): Met: FT Recommendations: Continue current POC * Respiratory Progress Note - Gina Murry RRT-ENDODONTIST - 10/24/2024 12:22 PM EDT PDP RE-EVALUATION NOTE - Respiratory Care Services [facility] [address] Name: Bhumika Flores Location: [facility] B730/B Date: 10/24/2024 Time: 12:23 PM Patient Driven Protocol Summary: Re-evaluation . This Treatment Plan and medications will be reviewed by the Primary Care Team for any contraindications. Respiratory Care Treatment Plan Aerosol Therapy Treatment:: Hand Held Nebulizer Tx QID+ (QID and PRN) with Albuterol Sulfate: Unit dose 0.083%. to reduce work of breathing and improve pulmonary gas exchange. Additional Aerosolized Treatments: Inhaler(s) QDAY with Anoro Ellipta (Umeclidinium 62.5 mcg and Vilanterol 25 mcg inhalation powder) / 1 inhalation. to reduce work of breathing and improve pulmonary gas exchange and suppress bronchial inflammation and edema by the use of systemic steroid sparing therapy. . Pulmonary Volume Expansion Therapy: Incentive Spirometry PRN to prevent or treat alveolar consolidation and atelectasis. . Secretion Management Treatment: Flutter TherapyPRN to enhance mobilization of secretions. .. The patient will be re-evaluated: No re-evaluation needed. Indications for treatment met. The Triage Level is: (Assessment Score = 11-15) Level 3. Triage Level Definitions: Level 1 Severe Respiratory/Airway Compromise Level 2 Moderate Respiratory/Airway Compromise or high risk for pulmonary complications Level 3 Mild Respiratory/Airway Compromise or moderate risk for pulmonary complications Level 4 Episodic Respiratory/Airway Compromise or low risk for pulmonary complications Level 5 No Respiratory/Airway Compromise Triage 1 Triage 2 Triage 3 Triage 4 Triage 5 greater than 20 16 - 20 11 - 15 6 - 10 0 - 5 Medical Record Assessment Clinical Findings Pulmonary Status: 3 - Pulm Impairment (acute or chronic) w/o exacerbation, or 1 - 2 rib fractures Surgical Status: 0 - No Surgical History Chest X-Ray: 2 - Infiltrates and/or Atelectasis Assessment Score: 5 Patient Assessment Clinical Findings Respiratory Pattern: 0 - RR 12 - 20; Patient only gets breathless with strenuous exercise. Breath Sounds: 3 - Crackles, mild wheezes, coarse bronchial, upper airway noises Cough Effectiveness: 0 - Strong non-productive Sputum Production 0 - No sputum production Level of Activity: 2 - Temporarily non-ambulatory O2 needed to keep SpO2 greater than or equal to 92%: 2 - Oxygen 4-6 LPM or FiO2 35-50% Assessment Score: 7 Total Assessment Score: 12 Breath Sounds: Inspiratory and expiratory diminished , wheezes, and crackles bilaterally.. Cough and Sputum: An effective cough produced no sputum... Vital Signs: Resp: 22 (10/24/24 1105) Pulse: 87 (10/24/24 1105) Temp: 36.5 °C (97.7 °F) (10/24/24 1000) BP: 138/64 (10/24/24 1105) SpO2: 95 % (10/24/24 1105) Primary Service: Med S. Admitting Diagnosis: Dyspnea [R06.00] Pulmonary Diagnosis: COPD. * Care Plan - Koki Barclay RN - 10/24/2024 11:17 AM EDT Clinical Goal(s): Patient will remain free from falls and injuries (10/24/24 0700) Possible barriers to meeting goal(s)/advancing plan of care: Patient condition Stability of the patient: Moderately stable - low risk of patient condition declining or worsening Summary regarding today's goal(s): Met: Recommendations: Continue implementing fall precautions * Care Plan - Cornell Roche RN - 10/24/2024 1:14 AM EDT Problem: Actual & Potential for Falls Goal: Patient will remain free of falls. Outcome: Progressing Problem: Decreased Cardiac Output Goal: Patient will have improved cardiac output. Outcome: Progressing Problem: Alteration in Fluid Balance Goal: Patient will achieve & maintain optimal fluid balance. Outcome: Progressing Problem: Ineffective Breathing Pattern Goal: Patient will achieve & maintain effective breathing pattern. Outcome: Progressing Problem: Activity Intolerance & Impaired Mobility Goal: Patient will maintain optimal mobility & activity level. Outcome: Progressing Problem: Knowledge Deficit Goal: Patient & caregiver will demonstrate understanding. Outcome: Progressing Problem: Pain & Impaired Comfort Goal: Patient's pain & discomfort is manageable. Outcome: Progressing Problem: Safety & Risk for Injury Goal: Patient will remain free from injury. Outcome: Progressing Problem: Daily Care & Potential Self-Care Deficit Goal: Patient's daily care needs are met. Outcome: Progressing Problem: Risk for Impaired Physical Mobility Goal: Patient will maintain optimal mobility level. Outcome: Progressing Problem: Knowledge Deficit Goal: Patient & caregiver will demonstrate understanding. Outcome: Progressing Problem: Discharge Barriers Goal: Patient's discharge needs are met. Outcome: Progressing Clinical Goal(s): Patient will remain free of falls and injuries this shift. (10/23/24 1500) Possible barriers to meeting goal(s)/advancing plan of care: Acuity of current Illness Stability of the patient: Moderately stable - low risk of patient condition declining or worsening Summary regarding today's goal(s): Met: FT Recommendations: Continue current POC * Ancillary Progress Note - Tiesha Solis BSW - 10/23/2024 3:22 PM EDT CARE MANAGEMENT - ADULT INITIAL SCREENING [facility] [place]-[address] [address] Name: Bhumika Flores Location: [facility] B730/B Date: 10/23/2024 Time: 3:22 PM Discussed patient with the interdisciplinary care team. This Round Boner performed a chart review and met with patient at bedside to complete admission screen and assessed needs for transition planning. The manager of care role and services were explained and emotional support was provided. Chief Complaint: Short of Breath Prior Living Arrangements What was your living situation prior to admission/observation?: Alone (10/23/241516) Living Quarters: Apartment (10/23/241516) Number of steps to enter living quarters:: chair lift (10/23/241516) History of falling: Yes (10/23/24 0800) Prior Level of Functioning Describe the patient's ability prior to admission/observation to perform ADLs: Performs independently (10/23/241516) Caregiver Information Emergency Contacts None on File Other Contacts Name Relation Home Work Mobile Julio Menendez Other - (no specific identity) [phone] Risk Stratification/Psychosocial/Care Gaps Risk Stratification Psycho Social / Medical Concerns Identified: Adjustment to illness/injury (10/23/241516) Accessed Neighborly to connect patients to social care resources: No (10/23/241516) OBRA or OPTIONS needed for placement: No (10/23/241516) Readmission Risk Score: 19.97 (10/23/24 1201) AM-PAC Score With Stairs : 21 (10/23/24 0241) Prior to Admission Services Services Prior to Admission CATERING AND EVENTS MANAGER Services (Services received within the last 30 days with exception, Psych within last two years): Drug and Alcohol Outpatient;Durable Medical Equipment (10/23/241516) List All Provider/Service Name: [facility] methadone clinic (10/23/241516) CATERING AND EVENTS MANAGER Durable Medical Equipment (DME) in home: Oxygen (name) - Comment;Grab bars/Rails;Seat Lift Chair;Cane;Walker Standard;Shower chair/bench (10/23/241516) DME Name: [employer] (10/23/241516) [place] Dept[employer] of Aging (PDA) Waiver Program: N/A (10/23/241516) CATERING AND EVENTS MANAGER Transportation (Services received within the last 30 days): Family/Friends Personal Vehicle (10/23/241516) Outpatient Round Boner: Patient Care Team: Angela Malone RN as Electrical And Instrument Technician (Registered Nurse) Patient/Family Expectations: Patient reports she lives alone in apartment with chair lift to enter.Patient ambulates without a device but reports she does have a walker/cane at home if needed. Patient reports CATERING AND EVENTS MANAGER being independent with ADL's & IADL's.Patient is on 4L's of oxygen base line supplied through [employer]. Patient reports SO provides transportation to all medical appts. Patient goes to [facility]. Patient reports drinking daily -3 12oz alcohol drinks daily. Patient declined wanting inpatient/outpatient treatment at this time.For further screening information, please refer to the Care Management flow document. * Care Plan - Brandy Worthy RN - 10/23/2024 2:21 PM EDT Clinical Goal(s): Patient will remain free of falls ans injuries this shift. (10/23/24 0744) Possible barriers to meeting goal(s)/advancing plan of care: Barriers not identified at this time Stability of the patient: Moderately stable - low risk of patient condition declining or worsening Summary regarding today's goal(s): Met: Patient remained free of falls and injuries this shift. Recommendations: Continue to monitor the patient to prevent falls and injuries * Diagnostic Clarification - Navarro Jarrell MD - 10/23/2024 12:40 PM EDT The patient has been diagnosed with CHARLENE without obesity hypoventilation syndrome. * Communication - Rubén Mcrae DO - 10/23/2024 10:58 AM EDT Spoke to [facility]. Confirmed our patient receives care at this clinic. Confirmed dose of 100 mg Methadone daily. Patient follows q.2 weeks with the clinic. Last seen 09/21/2024. * Ancillary Progress Note - Gina Hutchison RRT - 10/23/2024 8:29 AM EDT PATIENT DRIVEN PROTOCOL - Respiratory Care Services [address] [address] Name: Bhumika Flores Location: [facility] B730/B Date: 10/23/2024 Time: 8:30 AM Patient Driven Protocol Summary: Initial evaluation performed. This Treatment Plan and medications will be reviewed by the Primary Care Team for any contraindications. Respiratory Care Treatment Plan Aerosol Therapy Treatment:: Hand Held Nebulizer Tx QID with Duoneb: Unit Dose. to reduce work of breathing and improve pulmonary gas exchange. Additional Aerosolized Treatments: Hand Held Nebulizer Tx PRN with Albuterol Sulfate: Unit dose 0.083%. to reduce work of breathing and improve pulmonary gas exchange. . Pulmonary Volume Expansion Therapy: Incentive Spirometry PRN to prevent or treat alveolar consolidation and atelectasis. . Secretion Management Treatment: Flutter TherapyPRN to enhance mobilization of secretions. . The patient will be re-evaluated: within 48 hours. The Triage Level is: (Assessment Score = 6 -10) Level 4. Triage Level Definitions: Level 1 Severe Respiratory/Airway Compromise Level 2 Moderate Respiratory/Airway Compromise or high risk for pulmonary complications Level 3 Mild Respiratory/Airway Compromise or moderate risk for pulmonary complications Level 4 Episodic Respiratory/Airway Compromise or low risk for pulmonary complications Level 5 No Respiratory/Airway Compromise Triage 1 Triage 2 Triage 3 Triage 4 Triage 5 greater than 20 16 - 20 11 - 15 6 - 10 0 - 5 Medical Record Assessment Clinical Findings Pulmonary Status: 3 - Pulm Impairment (acute or chronic) w/o exacerbation, or 1 - 2 rib fractures Surgical Status: 0 - No Surgical History Chest X-Ray: 2 - Infiltrates and/or Atelectasis Assessment Score: 5 Patient Assessment Clinical Findings Respiratory Pattern: 0 - RR 12 - 20; Patient only gets breathless with strenuous exercise. Breath Sounds: 2 - Diminished bilaterally Cough Effectiveness: 0 - Strong non-productive Sputum Production: 0 - No sputum production Level of Activity: 2 - Temporarily non-ambulatory O2 needed to keep SpO2 greater than or equal to 92%: 0 - Room Air Assessment Score: 4 Total Assessment Score: 9 Breath Sounds: Inspiratory and expiratory diminished bilaterally.. Cough and Sputum: An effective cough produced no sputum... CXR: FINDINGS Bones/Hardware/Other: No acute osseous findings. Mediastinum: Normal contour. Lungs/Pleura: Hazy opacity overlying the left lower lobe. Trace left pleural effusion. No pneumothorax. IMPRESSION IMPRESSION Hazy opacity overlying the left lower lobe, trace left pleural effusion, which may represent pneumonia or aspiration.1. Vital Signs: Resp: 14 (10/23/24 0741) Pulse: 90 (10/23/24631) Temp: 36.5 °C (97.7 °F) (10/23/24631) BP: 126/67 (10/23/24631) SpO2: 93 % (10/23/24 0741) Primary Service: Med S. Admitting Diagnosis: Dyspnea [R06.00] Pulmonary Diagnosis: COPD and CHARLENE. Prescriptions/Home Medications/Durable Medical Equipment: Non compliant CHARLENE, Albuterol, Oxygen. * Pt Handout (on AVS) - Anaid Sorensen RN - 10/23/2024 7:26 AM EDT Images from the original note were not included. Chest Pain - Video Do you have an uncomfortable feeling in your chest? Do you feel sharp or dull pain, or crushing or burning sensations? Do you feel vague discomfort? Let's look at the wide range of problems that can cause chest pain. To view the video go to this web address: [email or web address] Or, scan this QR code with your smart phone © 2019 [employer]. * Pt Handout (on AVS) - Anaid Sorensen RN - 10/23/2024 7:26 AM EDT Images from the original note were not included. [id number] Shortness of Breath: Maximizing Your Energy Fear of shortness of breath may stop you from being as active as you once were. You don?t have to live this way. Managing your time and pacing yourself can help you conserve energy and do more. It?s even OK if you?re short of breath sometimes. You can learn to work through this without limiting your activities. Manage your time Shortness of breath can make everyday tasks take longer. This means there?s less time to do the things you enjoy. You can help prevent this by managing your time. Try these tips: · Plan ahead so your tasks are spaced throughout the day. As you plan, keep in mind the times of day you tend to have the most energy. · Do only one thing at a time. Finish one task before starting another. · Gather everything you need before you start a task. This cuts out unneeded steps while you?re working. · Think about what you really need to do. Be realistic about what you can get done in a day. Balance activity and rest When you?re tired, your activities will take longer. Fatigue also makes you more likely to get an infection. Plan your day so that your tasks are spaced throughout the day. To have more energy: · Stop and rest when you need to. Don?t wait until you?re overtired. · Switch back and forth between hard tasks and easy ones. · Give yourself plenty of time for each task, so you don?t have to hurry. · Take 20 to 30minute rest breaks after meals and throughout the day. · If an activity takes a lot of energy, break it into smaller parts. For instance, fold the laundry first. Then take a break before putting it away. · Try not to exert yourself in extreme cold or heat. Find ways to conserve energy Conserving your energy can help you stay active and breathe better. The way you use your body during a task can help you conserve energy. Think of ways to make things easier, and take your time to ease shortness of breath. For some tasks, you can also use special aids designed to reduce the amount of energy needed. Here are some tips: · Sit whenever possible, and keep your arms close to your body. Use slow, smooth motions. · Sit to dress and undress, shave, brush your teeth, and comb your hair. Use a long-handled meal cooker to pull on socks and shoes, and long-handled items like shoe horns. · Sit on a bench to shower. Use warm water, not hot. (Steam can make it harder to breathe.) Dry off by wrapping yourself in a terrycloth robe. · Use energy-saving appliances, such as an electric can baler, a power toothbrush, and a retail marketing executive. · Use a cart with wheels to move groceries, laundry, dishes, and other items around the house. Some carts have seats so you can rest when you need to. · Use lightweight, nonstick pots and pans to cook. Soak dirty dishes instead of scrubbing them. Air-dry dishes, or use a retail marketing executive. · Mix, cook, serve, and store foods in the same dish. · Keep the things you use most at waist level, so you can get them without reaching or bending. · Use steps slowly, pausing at each step. If you have steps outside or in your home, think about adding ramps or stair lifts. · Think about ways that others can help you. You might get help from friends, family members, or home health aides. Remember to breathe Sometimes people with an illness or condition that affects the lungs try to woodward through tasks so they won't get short of breath. This uses more energy and can actually increase shortness of breath. Instead, slow down and pace your breathing. These tips may help: · Move slowly during tasks that take a lot of effort, such as climbing stairs or pushing a shopping cart. · Use pursed-lip and diaphragmatic breathing while you go about a task. · Breathe out (exhale) when you exert effort. For example, breathe out as you lift up a grocery bag. Once you?re holding the bag, breathe in. Ask the ends down checker at the [employer] to pack your grocery bags so they are light and easy to carry. · Focus on taking slow, deep breaths. If your breathing is shallow, you don?t take in as much air. · Remember that it?s OK to be short of breath. Just pace yourself and do pursed-lip breathing. Talk with your healthcare provider · Ask if you should use supplemental oxygen. · Ask for help to stop if you smoke or use vaping devices. · Ask if you need a referral to occupational and physical therapy. Therapists can come to your home. They can help you with exercises and show you how to make daily activities easier. · Ask for a home health referral. If your breathing problems keep you from taking care of yourself, you may be able to get certain home health services. Check with your insurance plan. Pursed-lip breathing This type of breathing helps you exhale better. Breathing this way during activity will help you reduce shortness of breath: · Relax your neck and shoulder muscles. Breathe in (inhale) slowly through your nose for 2 counts or more. · Pucker your lips as if you are going to blow out a candle. Breathe out slowly and gently throughyour lips for at least twice as long as you inhaled. Last Reviewed Date: 2024 00:00:00 © [employer]. All rights reserved. This information is not intended as a substitute for professional medical care. Always follow your healthcare professional's instructions. * Ancillary Progress Note - Adia Christiansen RRT - 10/23/2024 6:43 AM EDT PATIENT DRIVEN PROTOCOL - Respiratory Care Services [address] [address] Name: Bhumika Flores Location: [facility] B730/B Date: 10/23/2024 Time: 6:43 AM Patient Driven Protocol Summary: Initial evaluation performed. This Treatment Plan and medications will be reviewed by the Primary Care Team for any contraindications. Respiratory Care Treatment Plan Aerosol Therapy Treatment:: Hand Held Nebulizer Tx Q4H with Duoneb: Unit Dose. to reduce work of breathing and improve pulmonary gas exchange. . Pulmonary Volume Expansion Therapy: Incentive Spirometry PRN to prevent or treat alveolar consolidation and atelectasis. . Secretion Management Treatment: Flutter TherapyPRN to enhance mobilization of secretions. . The patient will be re-evaluated: within 48 hours. The Triage Level is: (Assessment Score = 11-15) Level 3. Triage Level Definitions: Level 1 Severe Respiratory/Airway Compromise Level 2 Moderate Respiratory/Airway Compromise or high risk for pulmonary complications Level 3 Mild Respiratory/Airway Compromise or moderate risk for pulmonary complications Level 4 Episodic Respiratory/Airway Compromise or low risk for pulmonary complications Level 5 No Respiratory/Airway Compromise Triage 1 Triage 2 Triage 3 Triage 4 Triage 5 greater than 20 16 - 20 11 - 15 6 - 10 0 - 5 Medical Record Assessment Clinical Findings Pulmonary Status: 4 - Severe or chronic with exacerbation, or 3 or more fractured ribs Surgical Status: 0 - No Surgical History Chest X-Ray: 3 - Infiltrates or Atelectasis in more than 1 Lobe Assessment Score: 7 Patient Assessment Clinical Findings Respiratory Pattern: 0 - RR 12 - 20; Patient only gets breathless with strenuous exercise. Breath Sounds: 2 - Diminished bilaterally Cough Effectiveness: 2 - Weak non-productive Sputum Production: 0 - No sputum production Level of Activity: 2 - Temporarily non-ambulatory O2 needed to keep SpO2 greater than or equal to 92%: 2 - Oxygen 4-6 LPM or FiO2 35-50% Assessment Score: 8 Total Assessment Score: 15 Breath Sounds: Inspiratory and expiratory diminished bilaterally.. Cough and Sputum: No cough was present.. CXR: Hazy opacity overlying the left lower lobe, trace left pleural effusion, which may represent pneumonia or aspiration. . Vital Signs: Resp: 22 (10/23/24631) Pulse: 90 (10/23/24631) Temp: 36.5 °C (97.7 °F) (10/23/24631) BP: 126/67 (10/23/24631) SpO2: 92 % (10/23/24631) PFT: Minimal Predicted IC: 0.999 L. . Patient unable to perform Inspiratory Capacity. Reason: Drowsy. Primary Service: Med S. Admitting Diagnosis: Dyspnea [R06.00] Pulmonary Diagnosis: CHARLENE, Pleural Effusions, and Pneumonia. Prescriptions/Home Medications/Durable Medical Equipment: accuneb prn. Recommended New home medications/durable medical equipment/outpatient pulmonary/sleep referral : none. * Medical Necessity - Urvashi Ndiaye RN - 10/23/2024 1:13 AM EDT AdmissionCare Guideline: Pneumonia, Inpatient Based on the indications selected for the patient, the bed status of Inpatient was determined to beMET The following indications were selected as present at the time of evaluation of the patient: - Clinical Indications for Admission to Inpatient Care - Admission is indicated for 1 or more of the following: - Hypoxemia, as indicated by 1 or more of the following: - Patient with baseline need for supplemental oxygen who now requires increased supplemental oxygento maintain oxygenation at baseline or acceptable level Additional Information: chronically on 4 L at baseline but is currently requiring 6 L. Patient acutely desaturated to 87% on the 6 L. Given concerning findings of infectious etiology on the CT, increasing requirement of oxygen, plan for inpatient admission AdmissionCare documentation entered by: Urvashi Ndiaye [facility], 28th edition, Copyright © 2023 [facility] [employer] [facility] All Rights Reserved. [id number]:13:01-04:00 Solely for purpose of utilization review and payment; not a diagnostic tool documented in this encounter Plan of Treatment Upcoming Encounters Date Type Department Care Team (Late st Contact Info) Description 11/04/2024 11:00 AM EDT Office Visit Family Practice [facility] [address] [phone] Roseann Plummer MD [address] [place] [phone] 11/11/2024 12:30 PM EDT Office Visit Pulmonary Medicine, [facility] [address] [phone] Huan Branham MD [address] [phone] 12/16/2024 1:00 PM EDT Nutrition Services Nutrition, [facility] [address] [phone] Zari Bonilla RDN [address] [phone] 12/28/2024 12:30 PM EDT Office Visit Pulmonary Medicine, [facility] [address] [phone] Huan Branham MD [address] [place] [address] 07/07/2025 9:00 AM EST Office Visit Gynecology/Obstetrics Lydia Quezada [address] [place] [phone] Anahi Anthony CRNP [address] [place] [address] Scheduled Orders Name Type Priority Associated Diagnoses Orde r Schedule MYCODE INITIAL ADULT Lab Routine Next Hour Draw for 1 Occurrences starting 10/27/2024 until 10/27/2024 MYCODE INITIAL ADULT-PINK Lab Routine Once for 1 Occur rences starting 10/27/2024 until 10/27/2024 MYCODE SST1 Lab Routine Once for 1 Oc currences starting 10/27/2024 until 10/27/2024 MYCODE SST2 Lab Routine Once for 1 Oc currences starting 10/27/2024 until 10/27/2024 Scheduled Referrals Name Type Priority Associated Diagnoses Orde r Schedule ALCOHOL/CHEMICAL DEPENDENCY REFERRAL OP Referral Within 3 days (urgent) Alcohol use disorder Ordered: 10/28/2024 Health Maintenance Due Date Last Done Comments DISCUSS TOBACCO CESSATION (REFER TO SMARTSET #[id number]) 1965 Alpha-1 Antitrypsin 1985 Pap Smear 1988 [...] 04/25/2023, Additional history exists GFR 10/26/2025 10/26/2024, 03/3 , 10/24/2024, Additional history exists O2 ASSESSMENT COMPLETED IN PAST YEAR FOR COPD 10/28/2025 10/28/2024 Lipid Panel 11/25/2025 11/25/2020, 02/29/2020 Diabetes Screening [...] this encounter Medical Devices Implanted Type Area Plug Grower Device Identifier Shelf Expiration Date Model / Serial / Lot Shell Acet Trident Ii 50mm - [id number] Implanted:Qty: 1 on 12/05/2020 by Rodolfo Park DO at OR [facility] Right: Hip KANDICE : [employer] 09/04/2024 702-04-50D / / [id number] Trident Acetabular X3 0 36 D - [id number] Implanted:Qty: 1 on 12/05/2020 by Rodolfo Park DO at OR [facility] Right: Hip [employer] : [employer] 09/14/2025 [id number] / / [id number] Hip Hd Perry Hummel 36/ 25 - [id number] Implanted:Qty: 1 on 12/05/2020 by Rodolfo Park DO at OR [facility] Right: Hip [employer]ICE : [employer] 10/03/2025 [id number] / / [id number] Accolade Ii 127 Deg Sz 4 - [id number] Implanted:Qty: 1 on 12/05/2020 by Rodolfo Park DO at OR [facility] Right: Hip K[employer]ICE : OR[employer] 11/07/2025 [id number] / / [id number] documented as of this encounter Procedures Procedure Name Priority Date/Time Associated Diagnosis Comments CBC Routine 10/28/2024 6:21 AM EDT CBC Routine 10/27/2024 5:28 AM EDT CBC Routine 10/26/2024 7:31 AM EDT COMPREHENSIVE METABOLIC PANEL Routine 10/26/2024 6:36 AM EDT COMPREHENSIVE METABOLIC PANEL Routine 10/25/2024 7:02 AM EDT BASIC METABOLIC PANEL Routine 10/24/2024 8:12 AM EDT PHOSPHORUS Routine 10/24/2024 8:12 AM EDT CBC Routine 10/24/2024 8:12 AM EDT MAGNESIUM Routine 10/24/2024 8:12 AM EDT BLOOD GAS, VENOUS Routine 10/23/2024 9:5 5 AM EDT BLOOD GAS, VENOUS Routine 10/23/2024 6:4 9 AM EDT BNP (NT-PROBNP) Routine 10/23/2024 6:49 AM EDT HEPATIC FUNCTION PANEL Routine 6:49 AM EDT BASIC METABOLIC PANEL Routine 10/23/2024 6:49 AM EDT PHOSPHORUS Routine 10/23/2024 6:49 AM EDT CBC Routine 10/23/2024 6:49 AM EDT MAGNESIUM Routine 10/23/2024 6:49 AM EDT URINALYSIS, REFLEX TO CULTURE Routine 10/23/2024 6:31 AM EDT URINALYSIS, REFLEX TO CULTURE (CUP ONLY) Routine 10/23/2024 6:31 AM EDT URINALYSIS, REFLEX TO CULTURE (NOT FOR NEUTROPENIC PATIENTS) Routine 10/23/2024 6:31 AM EDT RESPIRATORY PATHOGEN PANEL, PCR STAT 10/23/2024 12:[address] CHEST W CONTRAST STAT 10/22/2024 1 0:26 PM EDT Other nonspecific abnormal finding of lung field Shortness of breath XR CHEST 2 VIEWS STAT 10/22/2024 7:04 PM EDT Chronic obstructive pulmonary disease, unspecified (HCC) Other nonspecific abnormal finding of lung field HC ECG TRACING ONLY STAT 10/22/2024 6 :51 PM EDT Dyspnea TROPONIN T, HIGH SENSITIVITY STAT 10/22/2024 6:47 PM EDT PROCALCITONIN STAT 10/22/2024 6:47 PM EDT BLOOD GAS, VENOUS STAT 10/22/2024 6:4 7 PM EDT COMPREHENSIVE METABOLIC PANEL STAT 10/22/2024 6:47 PM EDT LIPASE Add-on 10/22/2024 6:47 PM EDT CBC STAT 10/22/2024 6:47 PM EDT documented in this encounter Results * (ABNORMAL) CBC (10/28/2024 6:21 AM EDT) WBC 12.31(H) 4.00 - 10.80 K/uL 10/28/2024 6:50 AM EDT LABORATORY [facility] RBC 3.69 3.85 - 5.15 M/uL 10/28/2024 6:50 AM EDT LAB[facility]ATORY [facility] HGB 11.3(L) 12.0 - 15.3 g/dL 10/28/2024 6:50 AM EDT LAB[facility]ATORY [facility] HCT 37.7 36.0 - 45.2 % 10/28/2024 6:50 AM EDT LAB[facility]ATORY [facility] MCV 102.2 81.5 - 97.5 fL 10/28/2024 6:50 AM EDT LAB[facility]ATORY [facility] MCH 30.6 27.0 - 34.0 pg 10/28/2024 6:50 AM EDT LAB[facility]ATORY [facility] MCHC 30.0 32.0 - 36.0 g/dL 10/28/2024 6:50 AM EDT LAB[facility]ATORY [facility] RDW 13.0 11.5 - 15.5 % 10/28/2024 6:50 AM EDT LAB[facility]ATORY [facility] PLT 266 140 - 400 K/uL 10/28/2024 6:50 AM EDT LAB[facility]ORY [facility] MPV 10.1 6.6 - 11.1 fL 10/28/2024 6:50 AM EDT LAB[facility]ORY [facility] nRBCs 0 <=0 /100 WBCs 10/28/2024 6:50 AM EDT LAB[facility]ATORY [facility] Blood Venous blood specimen / Unknown Venipuncture / Unknown 10/28/2024 6:21 AM EDT 10/28/2024 6:36 AM EDT Rubén Mcrae DO LAB BLOOD ORDERABLES Final Result [facility] [address] [place] [address] * (ABNORMAL) CBC (10/27/2024 5:28 AM EDT) WBC 11.27(H) 4.00 - 10.80 K/uL 10/27/2024 6:08 AM EDT LAB[facility]ATORY [facility] RBC 3.64 3.85 - 5.15 M/uL 10/27/2024 6:08 AM EDT LAB[facility]ATORY [facility] HGB 11.3(L) 12.0 - 15.3 g/dL 10/27/2024 6:08 AM EDT LAB[facility]ATORY [facility] HCT 37.1 36.0 - 45.2 % 10/27/2024 6:08 AM EDT LAB[facility]ATORY [facility] MCV 101.9 81.5 - 97.5 fL 10/27/2024 6:08 AM EDT LAB[facility]ORY [facility] MCH 31.0 27.0 - 34.0 pg 10/27/2024 6:08 AM EDT LAB[facility]ORY [facility] MCHC 30.5 32.0 - 36.0 g/dL 10/27/2024 6:08 AM EDT LAB[facility]ORY [facility] RDW 13.2 11.5 - 15.5 % 10/27/2024 6:08 AM EDT LAB[facility]ORY [facility] PLT 284 140 - 400 K/uL 10/27/2024 6:08 AM EDT LAB[facility] MPV 11.0 6.6 - 11.1 fL 10/27/2024 6:08 AM EDT LAB[facility]ORY [facility] nRBCs 0 <=0 /100 WBCs 10/27/2024 6:08 AM EDT LAB[facility]ORY [facility] Blood Venous blood specimen / Unknown Venipuncture / Unknown 10/27/2024 5:28 AM EDT 10/27/2024 5:56 AM EDT Rubén Mcrae DO LAB BLOOD ORDERABLES Final Result [facility] [address] [place] [address] * (ABNORMAL) CBC (10/26/2024 7:31 AM EDT) WBC 11.50(H) 4.00 - 10.80 K/uL 10/26/2024 7:49 AM EDT LAB[facility]ATORY [facility] RBC 3.61 3.85 - 5.15 M/uL 10/26/2024 7:49 AM EDT LAB[facility]ATORY [facility] HGB 11.1(L) 12.0 - 15.3 g/dL 10/26/2024 7:49 AM EDT LAB[facility]ATORY [facility] HCT 36.9 36.0 - 45.2 % 10/26/2024 7:49 AM EDT LAB[facility]ATORY [facility] MCV 102.2 81.5 - 97.5 fL 10/26/2024 7:49 AM EDT LAB[facility]ATORY [facility] MCH 30.7 27.0 - 34.0 pg 10/26/2024 7:49 AM EDT LAB[facility]ORY [facility] MCHC 30.1 32.0 - 36.0 g/dL 10/26/2024 7:49 AM EDT LAB[facility]ATORY [facility] RDW 13.2 11.5 - 15.5 % 10/26/2024 7:49 AM EDT LAB[facility]ATORY [facility] PLT 178 140 - 400 K/uL 10/26/2024 7:49 AM EDT LAB[facility] MPV 10.5 6.6 - 11.1 fL 10/26/2024 7:49 AM EDT LAB[facility]ATORY [facility] nRBCs 0 <=0 /100 WBCs 10/26/2024 7:49 AM EDT LAB[facility] Blood Venous blood specimen / Unknown Venipuncture / Unknown 10/26/2024 7:31 AM EDT 10/26/2024 7:41 AM EDT Rubén Mcrae DO LAB BLOOD ORDERABLES Final Result [facility] [address] [place] [address] * (ABNORMAL) COMPREHENSIVE METABOLIC PANEL (10/26/2024 6:36 AM EDT) BUN 20 6 - 20 mg/dL 10/26/2024 7:36 AM EDT LAB[facility]ATORY [facility] CREATININE 0.9 0.5 - 1.0 mg/dL 10/26/2024 7:36 AM EDT LAB[facility]ATORY [facility] EGFR 78 >=60 mL/min 10/26/2024 7:36 AM EDT LAB[facility]ATORY [facility] Comment:eGFR is calculated b ased on the CKD-EPI 2020 equation. SODIUM 137 135 - 146 mmol/L 10/26/2024 7:36 AM EDT LAB[facility]ORY [facility] POTASSIUM 4.8 3.5 - 5.1 mmol/L 10/26/2024 7:36 AM EDT LAB[facility]ATORY [facility] CHLORIDE 97(L) 98 - 107 mmol/L 10/26/2024 7:36 AM EDT LAB[facility]ORY [facility] CO2 27 22 - 32 mmol/L 10/26/2024 7:36 AM EDT LAB[facility]ATORY [facility] ANION GAP 13 7 - 15 mmol/L 10/26/2024 7:36 AM EDT LAB[facility] GLUCOSE 74 70 - 120 mg/dL 10/26/2024 7:36 AM EDT LAB[facility]ATORY [facility] Albumin 2.9(L) 3.8 - 5.0 g/dL 10/26/2024 7:36 AM EDT LAB[facility]ATORY [facility] AST 46(H) 10 - 35 U/L 10/26/2024 7:36 AM EDT LAB[facility]ATORY [facility] Comment:Results may be false ly elevated due to hemolysis. Alkaline Phosphatase 125 35 - 130 U/L 10/26/2024 7:36 AM EDT LAB[facility]ATORY [facility] Bilirubin, Total <0.2 <=1.2 mg/dL 10/26/2024 7:36 AM EDT LAB[facility]ORY [facility] CALCIUM 8.7 8.4 - 10.2 mg/dL 10/26/2024 7:36 AM EDT LAB[facility]ATORY [facility] Protein 6.4 6.0 - 8.3 g/dL 10/26/2024 7:36 AM EDT LAB[facility]ATORY [facility] ALT 46(H) 10 - 35 U/L 10/26/2024 7:36 AM EDT LAB[facility]ATORY [facility] Blood Venous blood specimen / Unknown Venipuncture / Unknown 10/26/2024 6:36 AM EDT 10/26/2024 6:44 AM EDT Navarro Jarrell MD LAB BLOOD ORDERABLES Final Result LABORATORY [facility] [address] [place] [address] * (ABNORMAL) COMPREHENSIVE METABOLIC PANEL (10/25/2024 7:02 AM EDT) BUN 21(H) 6 - 20 mg/dL 10/25/2024 7:57 AM EDT LAB[facility]ATORY [facility] CREATININE 1.0 0.5 - 1.0 mg/dL 10/25/2024 7:57 AM EDT LABORATORY [facility] EGFR 68 >=60 mL/min 10/25/2024 7:57 AM EDT LABORATORY [facility] Comment:eGFR is calculated b ased on the CKD-EPI 2020 equation. SODIUM 139 135 - 146 mmol/L 10/25/2024 7:57 AM EDT LABORATORY [facility] POTASSIUM 4.7 3.5 - 5.1 mmol/L 10/25/2024 7:57 AM EDT LAB[facility]ATORY [facility] CHLORIDE 98 98 - 107 mmol/L 10/25/2024 7:57 AM EDT LAB[facility]ATORY [facility] CO2 31 22 - 32 mmol/L 10/25/2024 7:57 AM EDT LAB[facility]ATORY [facility] ANION GAP 10 7 - 15 mmol/L 10/25/2024 7:57 AM EDT LAB[facility]ATORY [facility] GLUCOSE 86 70 - 120 mg/dL 10/25/2024 7:57 AM EDT LABORATORY [facility] Albumin 3.5(L) 3.8 - 5.0 g/dL 10/25/2024 7:57 AM EDT LABORATORY [facility] AST 34 10 - 35 U/L 10/25/2024 7:57 AM EDT LABORATORY [facility] Alkaline Phosphatase 124 35 - 130 U/L 10/25/2024 7:57 AM EDT LAB[facility]ATORY [facility] Bilirubin, Total <0.2 <=1.2 mg/dL 10/25/2024 7:57 AM EDT LAB[facility]ATORY [facility] CALCIUM 8.8 8.4 - 10.2 mg/dL 10/25/2024 7:57 AM EDT LAB[facility]ATORY [facility] Protein 6.7 6.0 - 8.3 g/dL 10/25/2024 7:57 AM EDT LABORATORY [facility] ALT 48(H) 10 - 35 U/L 10/25/2024 7:57 AM EDT LAB[facility]ATORY [facility] Blood Capillary blood specimen / Unknown Capillary / Unknown 10/25/2024 7:02 AM EDT 10/25/2024 7:10 AM EDT Navarro Jarrell MD LAB BLOOD ORDERABLES Final Result Performing Organization Address City/State/[facility] Co de Phone Number LABORATORY [facility] [address] [place] [address] * PHOSPHORUS (10/24/2024 8:12 AM EDT) Pathologist [facility] Phosphorus 4.3 2.5 - 4.8 mg/dL 10/24/2024 9:09 AM EDT LABORATORY [facility] Blood Venous blood specimen / Unknown Venipuncture / Unknown 10/24/2024 8:12 AM EDT 10/24/2024 8:36 AM EDT Edinson Han MD LAB BLOOD ORDERABLES Final Result LAB[facility]ORY [facility] [address] [place] [address] * MAGNESIUM (10/24/2024 8:12 AM EDT) [facility] Magnesium 2.4 1.5 - 2.6 mg/dL 10/24/2024 9:09 AM EDT LABORATORY [facility] Blood Venous blood specimen / Unknown Venipuncture / Unknown 10/24/2024 8:12 AM EDT 10/24/2024 8:36 AM EDT Edinson Han MD LAB BLOOD ORDERABLES Final Result Performing Organization Address City/[facility] Co de Phone Number LABORATORY [facility] [address] [place] [address] * (ABNORMAL) CBC (10/24/2024 8:12 AM EDT) [facility] WBC 10.94(H) 4.00 - 10.80 K/uL 10/24/2024 8:47 AM EDT LABORATORY [facility] RBC 3.52 3.85 - 5.15 M/uL 10/24/2024 8:47 AM EDT LAB[facility]ATORY [facility] HGB 10.8(L) 12.0 - 15.3 g/dL 10/24/2024 8:47 AM EDT LAB[facility]ATORY [facility] HCT 35.8(L) 36.0 - 45.2 % 10/24/2024 8:47 AM EDT LAB[facility]ORY [facility] MCV 101.7 81.5 - 97.5 fL 10/24/2024 8:47 AM EDT LAB[facility]ORY [facility] MCH 30.7 27.0 - 34.0 pg 10/24/2024 8:47 AM EDT LAB[facility]ORY [facility] MCHC 30.2 32.0 - 36.0 g/dL 10/24/2024 8:47 AM EDT LAB[facility]ATORY [facility] RDW 13.2 11.5 - 15.5 % 10/24/2024 8:47 AM EDT LAB[facility]ATORY [facility] PLT 186 140 - 400 K/uL 10/24/2024 8:47 AM EDT LAB[facility]ORY [facility] MPV 10.2 6.6 - 11.1 fL 10/24/2024 8:47 AM EDT LABORATORY [facility] nRBCs 0 <=0 /100 WBCs 10/24/2024 8:47 AM EDT LABORATORY [facility] Blood Venous blood specimen / Unknown Venipuncture / Unknown 10/24/2024 8:12 AM EDT 10/24/2024 8:36 AM EDT Edinson Han MD LAB BLOOD ORDERABLES Final Result LABORATORY [facility] [address] [place] [address] * (ABNORMAL) BASIC METABOLIC PANEL (10/24/2024 8:12 AM EDT) BUN 21(H) 6 - 20 mg/dL 10/24/2024 9:09 AM EDT LABORATORY [facility] CREATININE 1.0 0.5 - 1.0 mg/dL 10/24/2024 9:09 AM EDT LABORATORY [facility] EGFR 65 >=60 mL/min 10/24/2024 9:09 AM EDT LABORATORY [facility] Comment:eGFR is calculated b ased on the CKD-EPI 2020 equation. SODIUM 139 135 - 146 mmol/L 10/24/2024 9:09 AM EDT LABORATORY [facility] POTASSIUM 4.6 3.5 - 5.1 mmol/L 10/24/2024 9:09 AM EDT LABORATORY [facility] CHLORIDE 96(L) 98 - 107 mmol/L 10/24/2024 9:09 AM EDT LABORATORY [facility] CO2 34(H) 22 - 32 mmol/L 10/24/2024 9:09 AM EDT LABORATORY [facility] ANION GAP 9 7 - 15 mmol/L 10/24/2024 9:09 AM EDT LABORATORY [facility] GLUCOSE 105 70 - 120 mg/dL 10/24/2024 9:09 AM EDT LABORATORY [facility] CALCIUM 9.0 8.4 - 10.2 mg/dL 10/24/2024 9:09 AM EDT LABORATORY [facility] Blood Venous blood specimen / Unknown Venipuncture / Unknown 10/24/2024 8:12 AM EDT 10/24/2024 8:36 AM EDT Edinson Han MD LAB BLOOD ORDERABLES Final Result [facility] [address] [place] [address] * (ABNORMAL) BLOOD GAS, VENOUS (10/23/2024 9:55 AM EDT) Temperature 37.0 C 10/23/2024 10:14 AM EDT LABORATORY [facility] pH, Venous 7.322 7.320 - 7.430 units 10/23/2024 10:14 AM EDT LAB[facility]ATORY [facility] pCO2, Venous 70.7(H) 40.0 - 60.0 mmHg 10/23/2024 10:14 AM EDT LAB[facility]ATORY [facility] pO2, Venous 56.9(H) 25.0 - 50.0 mmHg 10/23/2024 10:14 AM EDT LABORATORY [facility] Base Excess, Venous 7.8(H) -2.0 - 2.0 mmol/L 10/23/2024 10:14 AM EDT LABORATORY [facility] HGB 11.6(L) 12.0 - 15.3 g/dL 10/23/2024 10:14 AM EDT LAB[facility]ATORY [facility] Oxyhemoglobin, Venous 83.5 40.0 - 85.0 % total Hgb 10/23/2024 10:14 AM EDT LABORATORY [facility] Carboxyhemoglobi n, Whole Blood 1.7(H) <=1.5 % total Hgb 10/23/2024 10:14 AM EDT LABORATORY [facility] Comment:Smokers: 0-9.0 % Methemoglobin, Whole Blood 0.8 <=1.5 % total Hgb 10/23/2024 10:14 AM EDT LAB[facility]ATORY [facility] Reduced Hemoglobin, Venous 14.0 % total Hgb 10/23/2024 10:14 AM EDT LAB[facility]ATORY [facility] O2 Content, Venous 13.7 7.0 - 18.0 %vol 10/23/2024 10:14 AM EDT LAB[facility]ATORY [facility] Bicarbonate, Whole Blood 35.6(H) 23.0 - 31.0 mmol/L 10/23/2024 10:14 AM EDT LABORATORY [facility] Blood Venous blood specimen / Unknown Venipuncture / Unknown 10/23/2024 9:55 AM EDT 10/23/2024 10:07 AM EDT Rubén Cuevas Clementina LAB BLOOD ORDERABLES Final Result Performing Organization Address [facility] Co de Phone Number LABORATORY [address] [address] * BNP, NT-PRO (10/23/2024 6:49 AM EDT) BNP, NT-Pro 286 <300 pg/mL 10/23/2024 7:26 AM EDT LABORATORY [facility] Blood Venous blood specimen / Unknown Venipuncture / Unknown 10/23/2024 6:49 AM EDT 10/23/2024 6:56 AM EDT Narrative LABORATORY [facility] - 10/23/2024 7:26 AM EDT Exclude Heart Failure: <300 pg/mL Diagnose Heart Failure: Age <50 yr: >450 pg/mL 50-75 yr: >900 pg/mL >75 yr: >1800 pg/mL GFR is 30-59 mL/min: >1200 pg/mL or Age-adjusted values GFR <30 mL/min: do not use, not reliable Prognostic threshold: 1000 pg/mL Bladimir MOE LAB BLOOD ORDERABLES Final Result Performing Organization Address [facility] de Phone Number LABORATORY [address] [address] * (ABNORMAL) HEPATIC FUNCTION PANEL (10/23/2024 6:49 AM EDT) Albumin 3.3(L) 3.8 - 5.0 g/dL 10/23/2024 8:12 AM EDT LABORATORY [facility] AST 10/23/2024 8:12 AM EDT LABORATORY [facility] Comment:Specimen too hemolyz ed. Reorder if needed. Alkaline Phosphatase 150(H) 35 - 130 U/L 10/23/2024 8:12 AM EDT LABORATORY [facility] Comment:Results may be false ly elevated due to hemolysis. ALT 54(H) 10 - 35 U/L 10/23/2024 8:12 AM EDT LABORATORY [facility] Comment:Results may be false ly elevated due to hemolysis. Bilirubin, Total 0.3 <=1.2 mg/dL 10/23/2024 8:12 AM EDT LABORATORY [facility] Bilirubin, Direct 10/23/2024 8:12 AM EDT LABORATORY [facility] Comment:Specimen too hemolyz ed. Reorder if needed. Protein 7.6 6.0 - 8.3 g/dL 10/23/2024 8:12 AM EDT LABORATORY [facility] Blood Venous blood specimen / Unknown Venipuncture / Unknown 10/23/2024 6:49 AM EDT 10/23/2024 6:56 AM EDT Kavitha Loja DO LAB BLOOD ORDERABLES Final Res ult Performing Organization Address City/[facility]/ZIP Co de Phone Number LABORATORY [facility] [address] [place] [address] * PHOSPHORUS (10/23/2024 6:49 AM EDT) Phosphorus 3.7 2.5 - 4.8 mg/dL 10/23/2024 8:12 AM EDT LABORATORY [facility] Comment:Results may be false ly elevated due to hemolysis. Blood Venous blood specimen / Unknown Venipuncture / Unknown 10/23/2024 6:49 AM EDT 10/23/2024 6:56 AM EDT Edinson Han MD LAB BLOOD ORDERABLES Final Result LABORATORY [facility] [address] [place] [address] * MAGNESIUM (10/23/2024 6:49 AM EDT) Magnesium 2.2 1.5 - 2.6 mg/dL 10/23/2024 8:12 AM EDT LABORATORY [facility] Blood Venous blood specimen / Unknown Venipuncture / Unknown 10/23/2024 6:49 AM EDT 10/23/2024 6:56 AM EDT us Edinson Han MD LAB BLOOD ORDERABLES Final Result LAB[facility]ATORY [facility] [address] [place] [address] * (ABNORMAL) CBC (10/23/2024 6:49 AM EDT) WBC 9.63 4.00 - 10.80 K/uL 10/23/2024 7:07 AM EDT LABORATORY [facility] RBC 3.79 3.85 - 5.15 M/uL 10/23/2024 7:07 AM EDT LABORATORY [facility] HGB 11.6(L) 12.0 - 15.3 g/dL 10/23/2024 7:07 AM EDT LABORATORY [facility] HCT 38.0 36.0 - 45.2 % 10/23/2024 7:07 AM EDT LABORATORY [facility] MCV 100.3 81.5 - 97.5 fL 10/23/2024 7:07 AM EDT LABORATORY [facility] MCH 30.6 27.0 - 34.0 pg 10/23/2024 7:07 AM EDT LABORATORY [facility] MCHC 30.5 32.0 - 36.0 g/dL 10/23/2024 7:07 AM EDT LABORATORY [facility] RDW 13.2 11.5 - 15.5 % 10/23/2024 7:07 AM EDT LABORATORY [facility] PLT 164 140 - 400 K/uL 10/23/2024 7:07 AM EDT LAB[facility]ATORY [facility] MPV 10.4 6.6 - 11.1 fL 10/23/2024 7:07 AM EDT LAB[facility]ATORY [facility] nRBCs 0 <=0 /100 WBCs 10/23/2024 7:07 AM EDT LAB[facility]ATORY [facility] Blood Venous blood specimen / Unknown Venipuncture / Unknown 10/23/2024 6:49 AM EDT 10/23/2024 6:56 AM EDT us Edinson Han MD LAB BLOOD ORDERABLES Final Result LABORATORY [facility] [address] [place] [address] * (ABNORMAL) BASIC METABOLIC PANEL (10/23/2024 6:49 AM EDT) BUN 9 6 - 20 mg/dL 10/23/2024 8:12 AM EDT LABORATORY [facility] CREATININE 1.0 0.5 - 1.0 mg/dL 10/23/2024 8:12 AM EDT LABORATORY [facility] EGFR 68 >=60 mL/min 10/23/2024 8:12 AM EDT LABORATORY C Comment:eGFR is calculated b ased on the CKD-EPI 2020 equation. SODIUM 135 135 - 146 mmol/L 10/23/2024 8:12 AM EDT LABORATORY C POTASSIUM 10/23/2024 8:12 AM EDT LABORATORY [facility] Comment:Specimen too hemolyz ed. Reorder if needed. CHLORIDE 96(L) 98 - 107 mmol/L 10/23/2024 8:12 AM EDT LABORATORY C CO2 29 22 - 32 mmol/L 10/23/2024 8:12 AM EDT LABORATORY C ANION GAP 10 7 - 15 mmol/L 10/23/2024 8:12 AM EDT LABORATORY [facility] GLUCOSE 171(H) 70 - 120 mg/dL 10/23/2024 8:12 AM EDT LABORATORY [facility] CALCIUM 9.2 8.4 - 10.2 mg/dL 10/23/2024 8:12 AM EDT LABORATORY [facility] Blood Venous blood specimen / Unknown Venipuncture / Unknown 10/23/2024 6:49 AM EDT 10/23/2024 6:56 AM EDT Edinson Han MD LAB BLOOD ORDERABLES Final Result LABORATORY [facility] [address] [place] [address] * (ABNORMAL) BLOOD GAS, VENOUS (10/23/2024 6:49 AM EDT) Temperature 37.0 C 10/23/2024 7:00 AM EDT LABORATORY [facility] pH, Venous 7.309(L) 7.320 - 7.430 units 10/23/2024 7:00 AM EDT LABORATORY [facility] pCO2, Venous 71.0(H) 40.0 - 60.0 mmHg 10/23/2024 7:00 AM EDT LABORATORY [facility] pO2, Venous 59.9(H) 25.0 - 50.0 mmHg 10/23/2024 7:00 AM EDT LABORATORY [facility] Base Excess, Venous 6.3(H) -2.0 - 2.0 mmol/L 10/23/2024 7:00 AM EDT LABORATORY [facility] HGB 13.2 12.0 - 15.3 g/dL 10/23/2024 7:00 AM EDT LABORATORY [facility] Oxyhemoglobin, Venous 85.9(H) 40.0 - 85.0 % total Hgb 10/23/2024 7:00 AM EDT LABORATORY [facility] Carboxyhemoglobi n, Whole Blood 1.8(H) <=1.5 % total Hgb 10/23/2024 7:00 AM EDT LABORATORY [facility] Comment:Smokers: 0-9.0 % Methemoglobin, Whole Blood 0.4 <=1.5 % total Hgb 10/23/2024 7:00 AM EDT LABORATORY [facility] Reduced Hemoglobin, Venous 11.9 % total Hgb 10/23/2024 7:00 AM EDT LAB[facility]ATORY [facility] O2 Content, Venous 15.9 7.0 - 18.0 %vol 10/23/2024 7:00 AM EDT LABORATORY [facility] Bicarbonate, Whole Blood 34.6(H) 23.0 - 31.0 mmol/L 10/23/2024 7:00 AM EDT LABORATORY [facility] Blood Venous blood specimen / Unknown Venipuncture / Unknown 10/23/2024 6:49 AM EDT 10/23/2024 6:56 AM EDT us Kavitha Loja DO LAB BLOOD ORDERABLES Final Res ult LABORATORY [facility] [address] [place] [address] * (ABNORMAL) URINALYSIS, REFLEX TO CULTURE (10/23/2024 6:31 AM EDT) Color, Urine Light Yellow Colorless, Light Yellow, Yellow, Dark Yellow 10/23/2024 6:53 AM EDT LABORATORY [facility] Clarity, Urine Clear Clear 10/23/2024 6:53 AM EDT LABORATORY [facility] Glucose, Urine Negative Negative mg/dL 10/23/2024 6:53 AM EDT LABORATORY [facility] Bilirubin, Urine Negative Negative 10/23/2024 6:53 AM EDT LABORATORY [facility] Ketone, Urine Negative Negative mg/dL 10/23/2024 6:53 AM EDT LABORATORY [facility] Specific [place], Urine >1.050(H) 1.003 - 1.030 10/23/2024 6:53 AM EDT LABORATORY [facility] Blood, Urine Negative Negative 10/23/2024 6:53 AM EDT LABORATORY [facility] pH, Urine 7.0 5.0 - 7.5 Units 10/23/2024 6:53 AM EDT LABORATORY [facility] Protein, Urine Trace(A) Negative mg/dL 10/23/2024 6:53 AM EDT LABORATORY [facility] Urobilinogen, Urine Normal Normal mg/dL 10/23/2024 6:53 AM EDT LABORATORY [facility] Nitrite, Urine Negative Negative 10/23/2024 6:53 AM EDT LABORATORY [facility] Esterase, Urine Negative Negative 10/23/2024 6:53 AM EDT LABORATORY [facility] RBC, Urine 0-2 0 - 2 /HPF 10/23/2024 6:53 AM EDT LABORATORY [facility] WBC, Urine 0-2 0 - 2 /HPF 10/23/2024 6:53 AM EDT LABORATORY [facility] Bacteria, Urine 0-25 0 - 25 /HPF 10/23/2024 6:53 AM EDT LAB[facility]ATORY [facility] Culture, Urine 10/23/2024 6:53 AM EDT LAB[facility]ATORY [facility] Comment:Culture not indicate d by urinalysis results Urine Urine specimen obtained by clean catch procedure / Unknown Non-blood Collection / Unknown 10/23/2024 6:31 AM EDT 10/23/2024 6:46 AM EDT us aKvitha Loja DO LAB URINE ORDERABLES Final Res ult LABORATORY [facility] [address] [place] [address] * URINALYSIS, REFLEX TO CULTURE (CUP ONLY) (10/23/2024 6:31 AM EDT) Urinalysis, Reflex to Culture Specimen Specimen collected and received 10/23/2024 8:01 AM EDT LAB[facility]ATORY [facility] Urine Urine specimen obtained by clean catch procedure / Unknown Non-blood Collection / Unknown 10/23/2024 6:31 AM EDT 10/23/2024 6:46 AM EDT us Kavitha Loja DO LAB URINE ORDERABLES Final Res ult LAB[facility]ATORY [facility] [address] [place] [address] * RESPIRATORY PATHOGEN PANEL, PCR (10/23/2024 12:01 AM EDT) Pathologist [facility] Adenovirus Negative Negative 10/23/2024 1:23 AM EDT LAB[facility]ATORY [facility] Coronavirus 229E Negative Negative 10/24/19 1:23 AM EDT LAB[facility]ATORY [facility] Coronavirus HKU1 Negative Negative 10/24/19 1:23 AM EDT LAB[facility]ATORY [facility] Coronavirus NL63 Negative Negative 10/24/19 1:23 AM EDT LAB[facility]ATORY [facility] Coronavirus OC43 Negative Negative 10/24/19 1:23 AM EDT LAB[facility]ATORY [facility] Coronavirus SARS-CoV-2 Negative Negative 10/23/2024 1:23 AM EDT LAB[facility]ATORY [facility] Human Metapneumovirus Negative Negative 10/23/2024 1:23 AM EDT LAB[facility]ATORY [facility] Rhinovirus/Enterovi tali Negative Negative 10/23/2024 1:23 AM EDT LAB[facility]ATORY [facility] Influenza A Negative Negative 10/23/2024 1:23 AM EDT LAB[facility]ORY [facility] Influenza B Negative Negative 10/23/2024 1:23 AM EDT LAB[facility]ATORY [facility] Parainfluenza Virus 1 Negative Negative 10/23/2024 1:23 AM EDT LAB[facility]ATORY [facility] Parainfluenza Virus 2 Negative Negative 10/23/2024 1:23 AM EDT LAB[facility]ATORY [facility] Parainfluenza Virus 3 Negative Negative 10/23/2024 1:23 AM EDT LAB[facility]ATORY [facility] Parainfluenza Virus 4 Negative Negative 10/23/2024 1:23 AM EDT LAB[facility]ATORY [facility] Respiratory Syncytial Virus Negative Negative 10/23/2024 1:23 AM EDT LAB[facility]ORY [facility] Bordetella pertussis Negative Negative 10/23/2024 1:23 AM EDT LAB[facility]ATORY [facility] Chlamydia pneumoniae Negative Negative 10/23/2024 1:23 AM EDT LAB[facility]ATORY [facility] Mycoplasma pneumoniae Negative Negative 10/23/2024 1:23 AM EDT LAB[facility]ATORY [facility] Bordetella parapertussis Negative Negative 10/23/2024 1:23 AM EDT LAB[facility]ATORY [facility] Comment: The primers that detect Rhinovirus may cross react with some Enterorviruses. The validation of bronchial specimens, tracheal aspirates, and throats for this assay was developed and performance characteristics determined by [email or web address]. The validation of alternate specimen types has not been cleared or approved by the [place]. Food and Drug Administration (FDA). It has been determined that such clearance or approval is not necessary. Upper Respiratory Mid-turbinate nasal swab / Unknown Non-blood Collection / Unknown 10/23/2024 12:01 AM EDT 10/23/2024 12:15 AM EDT Edinson Han MD LAB MICRO - GENERAL O RDERABLES Final Result [facility]ATORY [facility] [address] [place] [address] * CT CHEST W CONTRAST (10/22/2024 10:26 PM EDT) Anatomical Region Laterality Modality Chest, Body, Cardio Computed Anjel ography 10/22/2024 11:1 0 PM EDT Impressions 10/22/2024 11:07 PM EDT IMPRESSION Faint ground-glass and tree-in-bud opacities throughout both lungs. Narrative 10/22/2024 11:[address] CHEST Wo CONTRAST-10/22/2024 10:26 pm HISTORY Shortness of breath COMPARISON 10/22/2024 TECHNIQUE Computed tomography of the chest was performed with intravenous contrast. FINDINGS Lungs: Faint ground-glass and tree-in-bud opacities throughout both lungs. Calcified granuloma in the right lower lobe. Pleura: No pleural effusions. Heart: Normal size. No pericardial effusion. Vessels: Within normal limits. Mediastinum and triny: Within normal limits. Scattered mediastinal lymph nodes, not enlarged by CT criteria. Chest wall and lower neck: Within normal limits. Upper abdomen: Within normal limits. Hepatic steatosis. Cholecystectomy. Bones: No acute osseous abnormality. Old left rib fracture. Procedure Note Stan Farrell MD - 10/22/[address] CHEST Wo CONTRAST-10/22/2024 10:26 pm HISTORY Shortness of breath COMPARISON 10/22/2024 TECHNIQUE Computed tomography of the chest was performed with intravenouscontrast. FINDINGS Lungs: Faint ground-glass and tree-in-bud opacities throughout both lungs.Calcified granuloma in the right lower lobe. Pleura: No pleural effusions. Heart: Normal size. No pericardial effusion. Vessels: Within normal limits. Mediastinum and triny: Within normal limits. Scattered mediastinal lymphnodes, not enlarged by CT criteria. Chest wall and lower neck: Within normal limits. Upper abdomen: Within normal limits. Hepatic steatosis.Cholecystectomy. Bones: No acute osseous abnormality. Old left rib fracture. IMPRESSION IMPRESSION Faint ground-glass and tree-in-bud opacities throughout both lungs. Roland Medina DO RAD CT Final Resu lt * XR CHEST 2 VIEWS (10/22/2024 7:04 PM EDT) Anatomical Region Laterality Modality Chest Digital Radiogra phy 10/22/2024 7:24 PM EDT Impressions 10/22/2024 7:21 PM EDT IMPRESSION Hazy opacity overlying the left lower lobe, trace left pleural effusion, which may represent pneumonia or aspiration. Narrative 10/22/2024 7:21 PM EDT EXAM XR CHEST 2 VIEWS - 10/22/2024 7:04 pm HISTORY COPD TECHNIQUE XR CHEST [address] 01/01/2024. FINDINGS Bones/Hardware/Other: No acute osseous findings. Mediastinum: Normal contour. Lungs/Pleura: Hazy opacity overlying the left lower lobe. Trace left pleural effusion. No pneumothorax. Procedure Note Lamberto Eason MD - 10/22/2024 EXAM XR CHEST 2 VIEWS - 10/22/2024 7:04 pm HISTORY COPD TECHNIQUE XR CHEST [address] 01/01/2024. FINDINGS Bones/Hardware/Other: No acute osseous findings. Mediastinum: Normal contour. Lungs/Pleura: Hazy opacity overlying the left lower lobe. Trace leftpleural effusion. No pneumothorax. IMPRESSION IMPRESSION Hazy opacity overlying the left lower lobe, trace left pleural effusion,which may represent pneumonia or aspiration. us Martinez Orozco DO RADIOLOGY (RAD GENERAL) Alla l Result * EKG (10/22/2024 6:51 PM EDT) 10/22/2024 6:51 PM EDT Narrative Procedure Note Isabelle Kaur MD - 10/22/2024 6:51 PM EDT REASON FOR STUDY: cp CONCLUSIONS: Normal sinus rhythm Normal ECG When compared with ECG of 11-Sep-2024 14:58, QT has lengthened Ventricular Rate: 89 Atrial Rate: 89 OR Interval: 118 QRS Duration: 78 QT/QTc: 378/459 ms P-R-T [place]: 51 : 67 : 75 degrees us Martinez Orozco DO EKG Final Result [facility] * LIPASE (10/22/2024 6:47 PM EDT) Lipase 33 13 - 60 U/L 10/23/2024 1:39 AM EDT LABORATORY [facility] Blood Venous blood specimen / Unknown Venipuncture / Unknown 10/22/2024 6:47 PM EDT 10/22/2024 6:53 PM EDT us Kavitha Loja DO LAB BLOOD ORDERABLES Final Res ult LABORATORY [facility] [address] [place] [address] * TROPONIN T, HIGH SENSITIVITY (10/22/2024 6:47 PM EDT) Pathologist [facility] Troponin T, High Sensitivity <6 <=14 ng/L 10/22/2024 7:23 PM EDT LABORATORY [facility] Blood Venous blood specimen / Unknown Venipuncture / Unknown 10/22/2024 6:47 PM EDT 10/22/2024 6:53 PM EDT [facility] LAB BLOOD ORDERABLES Final R esult Performing Organization Address [facility] Co de Phone Number LABORATORY [facility] [address] [place] [address] * (ABNORMAL) PROCALCITONIN (10/22/2024 6:47 PM EDT) [facility] Procalcitonin 0.11(H) <0.10 ng/mL 10/22/2024 7:23 PM EDT LABORATORY [facility] Blood Venous blood specimen / Unknown Venipuncture / Unknown 10/22/2024 6:47 PM EDT 10/22/2024 6:53 PM EDT Narrative LABORATORY [facility] - 10/22/2024 7:23 PM EDT Less than 0.5 ng/mL: Low risk for progression to sepsis. Review patients condition for localized infections. 0.5 to 2.0 ng/mL: Intermediate risk for progresion to sepsis. Review underlying conditions. Recommend repeat PCT after 6 hours has elapsed. Greater than 2.0 ng/mL: high risk for progression to sepsis unless other causes are known. [facility] LAB BLOOD ORDERABLES Final R esult Performing Organization Address City/[facility]/ZIP Co de Phone Number LABORATORY [facility] [address] [place] [address] * (ABNORMAL) COMPREHENSIVE METABOLIC PANEL (10/22/2024 6:47 PM EDT) [facility] BUN 5(L) 6 - 20 mg/dL 10/22/2024 7:23 PM EDT LABORATORY [facility] CREATININE 0.9 0.5 - 1.0 mg/dL 10/22/2024 7:23 PM EDT LAB[facility] EGFR 80 >=60 mL/min 10/22/2024 7:23 PM EDT [facility] Comment:eGFR is calculated b ased on the CKD-EPI 2020 equation. SODIUM 137 135 - 146 mmol/L 10/22/2024 7:23 PM EDT [facility] POTASSIUM 4.3 3.5 - 5.1 mmol/L 10/22/2024 7:23 PM EDT [facility] CHLORIDE 97(L) 98 - 107 mmol/L 10/22/2024 7:23 PM EDT [facility] CO2 27 22 - 32 mmol/L 10/22/2024 7:23 PM EDT [facility] ANION GAP 13 7 - 15 mmol/L 10/22/2024 7:23 PM EDT [facility] GLUCOSE 126(H) 70 - 120 mg/dL 10/22/2024 7:23 PM EDT [facility] Albumin 3.6(L) 3.8 - 5.0 g/dL 10/22/2024 7:23 PM EDT [facility] AST 49(H) 10 - 35 U/L 10/22/2024 7:23 PM EDT [facility] Alkaline Phosphatase 161(H) 35 - 130 U/L 10/22/2024 7:23 PM EDT [facility] Bilirubin, Total 0.2 <=1.2 mg/dL 10/22/2024 7:23 PM EDT [facility] CALCIUM 9.3 8.4 - 10.2 mg/dL 10/22/2024 7:23 PM EDT [facility] Protein 7.4 6.0 - 8.3 g/dL 10/22/2024 7:23 PM EDT [facility] ALT 53(H) 10 - 35 U/L 10/22/2024 7:23 PM EDT [facility] Blood Venous blood specimen / Unknown Venipuncture / Unknown 10/22/2024 6:47 PM EDT 10/22/2024 6:53 PM EDT us Martinez Orozco DO LAB BLOOD ORDERABLES Final R esult LABORATORY [facility] [address] [place] [address] * (ABNORMAL) CBC (10/22/2024 6:47 PM EDT) WBC 11.52(H) 4.00 - 10.80 K/uL 10/22/2024 7:04 PM EDT LABORATORY [facility] RBC 4.02 3.85 - 5.15 M/uL 10/22/2024 7:04 PM EDT LABORATORY [facility] HGB 12.5 12.0 - 15.3 g/dL 10/22/2024 7:04 PM EDT LABORATORY [facility] HCT 40.0 36.0 - 45.2 % 10/22/2024 7:04 PM EDT LAB[facility]ATORY [facility] MCV 99.5 81.5 - 97.5 fL 10/22/2024 7:04 PM EDT LABORATORY [facility] MCH 31.1 27.0 - 34.0 pg 10/22/2024 7:04 PM EDT LAB[facility]ATORY [facility] MCHC 31.3 32.0 - 36.0 g/dL 10/22/2024 7:04 PM EDT LABORATORY [facility] RDW 13.2 11.5 - 15.5 % 10/22/2024 7:04 PM EDT LABORATORY [facility] PLT 165 140 - 400 K/uL 10/22/2024 7:04 PM EDT LABORATORY [facility] MPV 10.2 6.6 - 11.1 fL 10/22/2024 7:04 PM EDT LAB[facility]ATORY [facility] nRBCs 0 <=0 /100 WBCs 10/22/2024 7:04 PM EDT LABORATORY [facility] Blood Venous blood specimen / Unknown Venipuncture / Unknown 10/22/2024 6:47 PM EDT 10/22/2024 6:53 PM EDT us Martinez Orozco DO LAB BLOOD ORDERABLES Final R esult LABORATORY [facility] [address] [place] [address] * (ABNORMAL) BLOOD GAS, VENOUS (10/22/2024 6:47 PM EDT) Temperature 37.0 C 10/22/2024 6:59 PM EDT [facility] pH, Venous 7.341 7.320 - 7.430 units 10/22/2024 6:59 PM EDT [facility] pCO2, Venous 64.0(H) 40.0 - 60.0 mmHg 10/22/2024 6:59 PM EDT [facility] pO2, Venous 50.0 25.0 - 50.0 mmHg 10/22/2024 6:59 PM EDT [facility] Base Excess, Venous 6.4(H) -2.0 - 2.0 mmol/L 10/22/2024 6:59 PM EDT [facility] HGB 12.7 12.0 - 15.3 g/dL 10/22/2024 6:59 PM EDT [facility] Oxyhemoglobin, Venous 78.8 40.0 - 85.0 % total Hgb 10/22/2024 6:59 PM EDT [facility] Carboxyhemoglobi n, Whole Blood 4.7(H) <=1.5 % total Hgb 10/22/2024 6:59 PM EDT [facility] Comment:Smokers: 0-9.0 % Methemoglobin, Whole Blood 0.5 <=1.5 % total Hgb 10/22/2024 6:59 PM EDT [facility] Reduced Hemoglobin, Venous 16.0 % total Hgb 10/22/2024 6:59 PM EDT [facility] O2 Content, Venous 14.1 7.0 - 18.0 %vol 10/22/2024 6:59 PM EDT [facility] Bicarbonate, Whole Blood 33.7(H) 23.0 - 31.0 mmol/L 10/22/2024 6:59 PM EDT [facility] Blood Venous blood specimen / Unknown Venipuncture / Unknown 10/22/2024 6:47 PM EDT 10/22/2024 6:53 PM EDT us Martinez Orozco DO LAB BLOOD ORDERABLES Final R esult LAB[facility] [address] [place] [address] documented in this encounter Visit Diagnoses Diagnosis Acute on chronic respiratory failure with hypoxia and hypercapnia (HCC)- Primary Dyspnea Other dyspnea and respiratory abnormality Pneumonia of left lower lobe due to infectious organism Acute on chronic congestive heart failure, unspecified heart failure type (HCC) Chest pain Chest pain, unspecified Chronic obstructive pulmonary disease, unspecified (HCC) Other nonspecific abnormal finding of lung field Shortness of breath Alcohol use disorder Opioid dependence in remission (HCC) Opioid type dependence, in remission Pulmonary hypertension due to left heart disease (HCC) Other chronic pulmonary heart diseases Restless legs syndrome (RLS) Pulmonary emboli (HCC) Other pulmonary embolism and infarction Chronic obstructive pulmonary disease with (acute) exacerbation (HCC) Tobacco use disorder Alcohol use disorder Chronic anticoagulation Long-term (current) use of anticoagulants Acute on chronic heart failure with preserved ejection fraction (HCC) documented in this encounter Administered Medications Inactive Administered Medications - up to 3 most recent administrations Medication Order MAR Action Action Date Dose Rate Site Albuterol Sulfate (Proventil) (2.5 MG/3ML) 0.083% inhalation solution 2.5 mg 2.5 mg, Nebulizer, Q4H PRN Dyspnea, Starting on Sat10/23/24 at 0233, Until Sat10/28/24 at 1847 Given 10/23/2024 7:41 AM EDT 2.5 mg Albuterol Sulfate (Proventil) (2.5 MG/3ML) 0.083% inhalation solution 2.5 mg 2.5 mg, Nebulizer, RESPQID, First dose on Sat10/24/24 at 1000, Until Discontinued Given 10/28/2024 10:53 AM EDT 2.5 mg Given 10/28/2024 8:18 AM EDT 2.5 mg Given 10/27/2024 7:50 PM EDT 2.5 mg albuterol-ipratropium (Duoneb) inhalation solution 3 mL 3 mL, Nebulizer, ONCE, On [place] 10/22/24 at 1915, For 1 dose, 3 mL = 0.5 mg ipratropium/ 2.5 mg albuterol Given 10/22/2024 6:43 PM EDT 3 mL albuterol-ipratropium (Duoneb) inhalation solution 3 mL 3 mL, Nebulizer, [id number], First dose on Sat10/23/24 at 0600, Until Discontinued, 3 mL = 0.5 mg ipratropium/ 2.5 mg albuterol Given 10/23/2024 5:14 AM EDT 3 mL albuterol-ipratropium (Duoneb) inhalation solution 3 mL 3 mL, Nebulizer, RESPQID, First dose (after last modification) on Sat10/23/24 at 1000, Until Discontinued, 3 mL = 0.5 mg ipratropium/ 2.5 mg albuterol Given 10/23/2024 11:20 AM EDT 3 mL amLODIPine (Norvasc) tab 10 mg 10 mg, Oral, Daily(AM), First dose on Sat10/24/24 at 1000, Until Discontinued Given 10/28/2024 9:37 AM EDT 10 mg Given 10/27/2024 8:19 AM EDT 10 mg Given 10/26/2024 8:12 AM EDT 10 mg Apixaban (Eliquis) tab 5 mg 5 mg, Oral, BID (.AM/PM), First dose on Sat10/23/24 at 0900, Until Discontinued Given 10/28/2024 9:37 AM EDT 5 mg Given 10/27/2024 7:44 PM EDT 5 mg Given 10/27/2024 8:20 AM EDT 5 mg Azithromycin (Zithromax) tab 500 mg 500 mg, Oral, ONCE, On [facility] 10/22/24 at 1915, For 1 dose Given 10/22/2024 6:43 PM EDT 500 mg Budesonide (Pulmicort) inhalation soln 0.25 mg 0.25 mg, Nebulizer, [id number], First dose (after last modification) on [place] 10/25/24 at 2000, Until Discontinued, SHAKE WELL! Given 10/28/2024 8:18 AM EDT 0.25 m g Given 10/27/2024 7:50 PM EDT 0.25 mg Given 10/27/2024 8:27 AM EDT 0.25 mg cefTRIAXone in dextrose (Rocephin) IVPB 2 g IV Piggyback, 2 g, ONCE, 1 dose, On [place] 10/22/24 at 2000, Administer over 30 Minutes New Bag 10/22/2024 8:25 PM EDT 2 g 100 mL/hr dexamethasone sod phosphate PF (Decadron) 10 MG/ML inj 10 mg 10 mg, IV Push, ONCE, On [facility] 10/22/24 at 1915, For 1 dose, PROTECT FROM LIGHT Given 10/22/2024 8:22 PM EDT 10 mg folic acid tab 1 mg 1 mg, Oral, ONCE, On [place] 10/22/24 at 1945, For 1 dose Given 10/22/2024 7:49 PM EDT 1 mg folic acid tab 1 mg 1 mg, Oral, Daily(AM), First dose on Sat10/24/24 at 1000, Until Discontinued Given 10/28/2024 9:37 AM EDT 1 mg Given 10/27/2024 8:20 AM EDT 1 mg Given 10/26/2024 8:12 AM EDT 1 mg Furosemide (Lasix) inj 40 mg 40 mg, IV Push, ONCE, On Sat10/23/24 at 0315, For 1 dose Given 10/23/2024 3:06 AM EDT 40 mg Furosemide (Lasix) tab 40 mg 40 mg, Oral, Daily(AM), First dose on Sat10/23/24 at 0900, Until Discontinued Given 10/28/2024 9:37 AM EDT 40 mg Given 10/27/2024 8:20 AM EDT 40 mg Given 10/26/2024 8:12 AM EDT 40 mg home medication stored in pharmacy Daily(AM), First dose on Sat10/23/24 at 0900, Until Discontinued, Routine, when the patient is ready for discharge contact pharmacy hydrOXYzine HCl tab 25 mg 25 mg, Oral, TID PRN Anxiety, Starting on Sat10/23/24 at 0204, Until Sat10/28/24 at 1847 Given 10/27/2024 7:44 PM EDT 25 mg Given 10/27/2024 12:23 PM EDT 25 mg Given 10/24/2024 11:13 AM EDT 25 mg Iopamidol (Isovue 370) inj 80 mL 80 mL, Intravenous, ONCE, On [place] 10/22/24 at 2300, For 1 dose, Radiology Medication Routing (Non-IR) Given 10/22/2024 11:00 PM EDT 80 mL LORazepam (Ativan) tab 1 mg 1 mg, Oral, Q1H PRN Other, CIWA-Ar score 8-15, repeat CIWA-Ar in 60 minutes. Assess and record Level of consciousness and Respiratory Rate just prior to each dose of LORazepam and 15 minutes after each dose of LORazepam. Hold LORazepam for Respiratory Rate less than 12, somnolent/inability to arouse. Notify provider if 2 doses are given within 2 hours., Starting on [place] 10/22/24 at 1910, Until Sat10/27/24 at 0906, For 6 days Given 10/24/2024 1:22 PM EDT 1 mg Given 10/24/2024 9:03 AM EDT 1 mg Given 10/22/2024 8:33 PM EDT 1 mg LORAzepam (Ativan) tab 2 mg 2 mg, Oral, Q1H PRN Other, CIWA-Ar score 16-25, repeat CIWA-Ar in 60 minutes. Assess and record Level of consciousness and Respiratory Rate just prior to each dose of LORazepam and 15 minutes after each dose of LORazepam. Hold LORazepam for Respiratory Rate less than 12, somnolent/inability to arouse. Notify provider if 2 doses are given within 2 hours., Starting on [place] 10/22/24 at 1910, Until Sat10/27/24 at 0906, For 6 days Given 10/27/2024 6:38 AM EDT 2 mg Given 10/27/2024 4:24 AM EDT 2 mg Given 10/26/2024 9:35 PM EDT 2 mg LORAzepam (Ativan) tab 2 mg 2 mg, Oral, ONCE, On Sat10/27/24 at 1500, For 1 dose Given 10/27/2024 2:40 PM EDT 2 mg LORAzepam (Ativan) tab 2 mg 2 mg, Oral, ONCE, On Sat10/28/24 at 0015, For 1 dose Given 10/27/2024 11:56 PM EDT 2 mg LORAzepam (Ativan) tab 4 mg 4 mg, Oral, Q1H PRN Other, CIWA-Ar Score greater than 25, repeat CIWA-Ar in 60 minutes. Assess and record Level of consciousness and Respiratory Rate just prior to each dose of LORazepam and 15 minutes after each dose of LORazepam. Hold LORazepam for Respiratory Rate less than 12, somnolent/inability to arouse. Notify provider if 2 doses are given within 2 hours., Starting on [place] 10/22/24 at 1910, Until Sat10/27/24 at 0906, For 6 days Given 10/26/2024 11:30 AM EDT 4 mg Given 10/24/2024 1:04 AM EDT 4 mg Given 10/23/2024 12:29 AM EDT 4 mg methADONE tab 100 mg 100 mg, Oral, Daily(AM), First dose on Sat10/23/24 at 1300, Until Discontinued Given 10/28/2024 9:37 AM EDT 100 mg Given 10/27/2024 8:19 AM EDT 100 mg Given 10/26/2024 8:22 AM EDT 100 mg metoprolol succinate XL (toPROL XL) tab 25 mg 25 mg, Oral, BID (.AM/PM), First dose on Sat10/24/24 at 1000, Until Discontinued, Hold for HR less than 60 or SBP below 100 and notify service if dose is held This med should NOT be Crushed or Chewed. Given 10/28/2024 9:37 AM EDT 25 mg Given 10/27/2024 7:44 PM EDT 25 mg Given 10/27/2024 8:20 AM EDT 25 mg multivitamin (Mvi) 1 Tablet 1 Tablet, Oral, ONCE, On [place] 10/22/24 at 1945, For 1 dose Given 10/22/2024 7:49 PM EDT 1 Tablet multivitamin (Mvi) 1 Tablet 1 Tablet, Oral, DAILY NOON, First dose on Sat10/24/24 at 1200, Until Discontinued Given 10/28/2024 11:54 AM EDT 1 T ablet Given 10/27/2024 12:23 PM EDT 1 Tablet Given 10/26/2024 11:30 AM EDT 1 Tablet Nicotine (Nicoderm CQ) 14 MG/24HR patch 1 Patch 1 Patch, Transdermal, Daily(AM), First dose on Sat10/23/24 at 0900, Until Discontinued, Place on clean, hairless area. Remove for patient showers. Change every 24 hours WASTE INFO: Return packaging and waste medication in zip lock bag to pharmacy - [facility] container. Patch Applied 10/28/2024 9:37 AM EDT 1 Patch Arm Left Upper Patch Applied 10/27/2024 8:21 AM EDT 1 Patch Arm Right Upper Patch Applied 10/26/2024 8:22 AM EDT 1 Patch Arm Left Upper ondansetron (Zofran) inj 4 mg 4 mg, IV Push, ONCE, On [place] 10/22/24 at 2100, For 1 dose Given 10/22/2024 8:26 PM EDT 4 mg oxygen GAS Inhalation, OXYGEN, First dose on [place] 10/22/24 at 1915, Until Discontinued, Device/Managed by: Low Flow Device, Goal SPO2 (%): 91-95, Starting Device: Nasal Cannula, Initial Flow Rate (LPM): 2, Lowest Support: Nasal Cannula: Flow 0-6 LPM. Titrate up/down by 1 LPM., Titration Interval: Q2 minutes and as needed., Notify Provider: For sudden DECREASE in resting SPO2 to less than 85% and when escalating delivery device., Wean patient off Oxygen when the oxygen saturation is greater than or equal to 93% Oxygen On 10/23/2024 12:00 AM EDT 6 L/min(Oxygen) Oxygen On 10/22/2024 7:15 PM EDT oxygen GAS Inhalation, OXYGEN, First dose (after last modification) on Sat10/23/24 at 0800, Until Discontinued, Device/Managed by: Low Flow Device, Goal SPO2 (%): 88-94, Starting Device: Nasal Cannula, Initial Flow Rate (LPM): 2, Lowest Support: Nasal Cannula: Flow 0-6 LPM. Titrate up/down by 1 LPM., Titration Interval: Q2 minutes and as needed., Notify Provider: For sudden DECREASE in resting SPO2 to less than 85% and when escalating delivery device., Wean patient off Oxygen when the oxygen saturation is greater than or equal to 93% Oxygen On 10/28/2024 8:00 AM EDT 4 L/min(Oxygen) Oxygen On 10/28/2024 12:00 AM EDT Oxygen On 10/27/2024 4:00 PM EDT predniSONE (Deltasone) tab 30 mg 30 mg, Oral, ONCE, On Sat10/27/24 at 0745, For 1 dose Given 10/27/2024 8:20 AM EDT 30 mg predniSONE (Deltasone) tab 40 mg 40 mg, Oral, Daily(AM), First dose on Sat10/23/24 at 0900, Until Discontinued Given 10/23/2024 7:50 AM EDT 40 mg predniSONE (Deltasone) tab 40 mg 40 mg, Oral, Daily(AM), First dose (after last modification) on Sat10/24/24 at 0900, Last dose on Sat10/27/24 at 0900, For 4 doses Given 10/26/2024 8:12 AM EDT 40 m g Given 10/25/2024 9:52 AM EDT 40 mg Given 10/24/2024 8:55 AM EDT 40 mg sertraline (Zoloft) tab 100 mg 100 mg, Oral, Daily(AM), First dose (after last modification) on Sat10/29/24 at 0900, Until Discontinued sertraline (Zoloft) tab 50 mg 50 mg, Oral, Daily(AM), First dose on Sat10/23/24 at 0900, Until Discontinued Given 10/28/2024 9:37 AM EDT 50 mg Given 10/27/2024 8:20 AM EDT 50 mg Given 10/26/2024 8:12 AM EDT 50 mg sertraline (Zoloft) tab 50 mg 50 mg, Oral, ONCE, On Sat10/28/24 at 1145, For 1 dose Given 10/28/2024 11:54 AM EDT 50 mg sodium chloride 0.9 % flush peripheral marisela 3 mL 3 mL, IV Push, Q8H, First dose on Sat10/22/24 at 2200, Until Discontinued, Do not flush if lock, PICC, or central line not in place; IV infusing or unable to flush. Given 10/28/2024 6:00 AM EDT 3 mL Given 10/27/2024 10:00 PM EDT 3 mL Given 10/27/2024 2:41 PM EDT 3 mL sodium chloride 0.9 % flush/inj 3 mL 3 mL, IV Push, PRN Other, Line Patency, Starting on Sat10/23/24 at 0202, Until Sat10/28/24 at 1847, Do not flush if lock, PICC, or central line not in place, IV infusing or unable to flush Thiamine (Vitamin B-1) tab 100 mg 100 mg, Oral, ONCE, On Sat10/22/24 at 1945, For 1 dose Given 10/22/2024 7:49 PM EDT 100 mg Thiamine (Vitamin B-1) tab 100 mg 100 mg, Oral, Daily(AM), First dose on 10/24/24 at 1000, Until Discontinued Given 10/28/2024 9:37 AM EDT 100 mg Given 10/27/2024 8:19 AM EDT 100 mg Given 10/26/2024 8:12 AM EDT 100 mg umeclidinium-vilanterol (ANORO ellipta) 62.5-25 MCG/INH inhaler 1 Puff 1 Puff, Inhalation, RESPDAILY, First dose on 10/24/24 at 1000, Until Discontinued, NURSING TO FOLLOW PATIENT WITH MDI/DPI ADMINISTRATION Each inhalation uses 1 strip of each drug Given 10/28/2024 9:46 AM EDT 1 Puff Given 10/27/2024 8:22 AM EDT 1 Puff Given 10/26/2024 8:23 AM EDT 1 Puff documented in this encounter Active and Recently Administered Medications Times are shown in EDT. Scheduled Medication Order 10/26/2024 10/27/2024 10/28/2024 Albuterol Sulfate (Proventil) (2.5 MG/3ML) 0.083% inhalation solution 2.5 mg 2.5 mg, Nebulizer, RESPQID, First dose on 10/24/24 at 1000, Until Discontinued 0715 (Given - Provider: Cecille Nugent, JHONNY)1104 (Given - Provider: Cecille Nugent, JHONNY)1542 (Given - Provider: Rachel Valdez RRT)2044 (Given - Provider: Rachel Valdez RRT) 0827 (Given - Provider: Rowan Morocho RRT)1132 (Given - Provider: Rachel Valdez RRT)1508 (Given - Provider: Rachel Valdez RRT)1950 (Given - Provider: Rachel Valdez RRT) 0818 (Given - Provider: Veronica Ashraf, KRISTIAN)1053 (Given - Provider: Veronica Ashraf RRT) amLODIPine (Norvasc) tab 10 mg 10 mg, Oral, Daily(AM), First dose on 10/24/24 at 1000, Until Discontinued 0812 (Given - Provider: Abby Cam RN) 0819 (Given - Provider: Cody Mckee RN) 0937 (Given - Provider: SN Michelle) Apixaban (Eliquis) tab 5 mg 5 mg, Oral, BID (.AM/PM), First dose on Sat10/23/24 at 0900, Until Discontinued 811 (Given - Provider: Abby Cam RN)2137 (Given - Provider: Jeanna Victor RN) 819 (Given - Provider: Cody Mckee RN)1943 (Given - Provider: Nory Foley RN) 0937 (Given - Provider: SN Michelle) Budesonide (Pulmicort) inhalation soln 0.25 mg 0.25 mg, Nebulizer, [id number], First dose (after last modification) on Sat10/25/24 at 2000, Until Discontinued, SHAKE WELL! 07 (Given - Provider: Cecille Nugent, [employer] SERV[employer] KITCHEN SUPERVISOR)2043 (Given - Provider: Rachel Valdez, NEUROUROLOGIST) 826 (Given - Provider: Rowan Morocho, NEUROUROLOGIST)1949 (Given - Provider: Rachel Valdez, NEUROUROLOGIST) 817 (Given - Provider: Veronica Ashraf, KRISTIAN) folic acid tab 1 mg 1 mg, Oral, Daily(AM), First dose on Sat10/24/24 at 1000, Until Discontinued 811 (Given - Provider: Abby Cam RN) 08 (Given - Provider: Cody Mckee RN) 0937 (Given - Provider: SN Michelle) Furosemide (Lasix) tab 40 mg 40 mg, Oral, Daily(AM), First dose on Sat10/23/24 at 0900, Until Discontinued 811 (Given - Provider: Abby Cam RN) 08 (Given - Provider: Cody Mckee RN) 09 (Given - Provider: SN Michelle) home medication stored in pharmacy Daily(AM), First dose on Sat10/23/24 at 0900, Until Discontinued, Routine, when the patient is ready for discharge contact pharmacy 0900 (Order Check Addressed - Provider: Abby Cam RN) 0900 (Order Check Addressed - Provider: Cody Mckee RN) 09 (Order Check Addressed - Provider: Cody Mckee RN) LORAzepam (Ativan) tab 2 mg (COMPLETED) 2 mg, Oral, ONCE, On Sat10/27/24 at 1500, For 1 dose 1440 (Given - Provider: Cody Mckee RN) LORAzepam (Ativan) tab 2 mg (COMPLETED) 2 mg, Oral, ONCE, On Sat10/28/24 at 0015, For 1 dose 2356 (Given - Provider: Nory Foley RN) methADONE tab 100 mg 100 mg, Oral, Daily(AM), First dose on Sat10/23/24 at 1300, Until Discontinued 0822 (Given - Provider: Abby Cam RN) 0819 (Given - Provider: Cody Mckee RN) 0937 (Given - Provider: SN Michelle) metoprolol succinate XL (toPROL XL) tab 25 mg 25 mg, Oral, BID (.AM/PM), First dose on Sat10/24/24 at 1000, Until Discontinued, Hold for HR less than 60 or SBP below 100 and notify service if dose is held This med should NOT be Crushed or Chewed. 0812 (Given - Provider: Abby Cam RN)2138 (Given - Provider: Jeanna Victor RN) 0820 (Given - Provider: Cody Mckee RN)1944 (Given - Provider: Nory Foley RN) 0937 (Given - Provider: SN Michelle) multivitamin (Mvi) 1 Tablet 1 Tablet, Oral, DAILY NOON, First dose on Sat10/24/24 at 1200, Until Discontinued 1130 (Given - Provider: Abby Cam RN) 1223 (Given - Provider: Cody Mckee RN) 1154 (Given - Provider: SN Michelle) Nicotine (Nicoderm CQ) 14 MG/24HR patch 1 Patch 1 Patch, Transdermal, Daily(AM), First dose on Sat10/23/24 at 0900, Until Discontinued, Place on clean, hairless area. Remove for patient showers. Change every 24 hours WASTE INFO: Return packaging and waste medication in zip lock bag to pharmacy - [facility] container. 0822 (Patch Applied - Provider: Abby Cam RN)0859 (Patch Removed - Provider: Abby Cam RN) 0821 (Patch Applied - Provider: Cody Mckee RN)0822 (Patch Removed - Provider: Cody Mckee RN) 0821 (Patch Removed - Provider: Cody Mckee RN)0937 (Patch Applied - Provider: SN Michelle)1447 (Due: Patch Removed - Provider: Automated, Discontinue Physician - Comment: Time automatically adjusted from order being discontinued) oxygen GAS Inhalation, OXYGEN, First dose (after last modification) on Sat10/23/24 at 0800, Until Discontinued, Device/Managed by: Low Flow Device, Goal SPO2 (%): 88-94, Starting Device: Nasal Cannula, Initial Flow Rate (LPM): 2, Lowest Support: Nasal Cannula: Flow 0-6 LPM. Titrate up/down by 1 LPM., Titration Interval: Q2 minutes and as needed., Notify Provider: For sudden DECREASE in resting SPO2 to less than 85% and when escalating delivery device., Wean patient off Oxygen when the oxygen saturation is greater than or equal to 93% 0000 (Oxygen On - Provider: Cornell Roche RN)0800 (Oxygen On - Provider: Abby Cam RN)1600 (Oxygen On - Provider: Abby Cam RN) 0000 (Oxygen On - Provider: Jeanna Victor RN)0800 (Oxygen On - Provider: Cody Mckee RN)1600 (Oxygen On - Provider: Cody Mckee RN) 0000 (Oxygen On - Provider: Nory Foley RN)0800 (Oxygen On - Provider: SN Michelle) predniSONE (Deltasone) tab 30 mg (COMPLETED) 30 mg, Oral, ONCE, On Sat10/27/24 at 0745, For 1 dose 0820 (Given - Provider: Cody Mckee RN) predniSONE (Deltasone) tab 40 mg (CANCELED) 40 mg, Oral, Daily(AM), First dose (after last modification) on Sat10/24/24 at 0900, Last dose on Sat10/27/24 at 0900, For 4 doses 0812 (Given - Provider: Abby Cam RN) sertraline (Zoloft) tab 100 mg 100 mg, Oral, Daily(AM), First dose (after last modification) on Sat10/29/24 at 0900, Until Discontinued sertraline (Zoloft) tab 50 mg (CANCELED) 50 mg, Oral, Daily(AM), First dose on Sat10/23/24 at 0900, Until Discontinued 0812 (Given - Provider: Abby Cam RN) 0820 (Given - Provider: Cody Mckee RN) 0937 (Given - Provider: SN Michelle) sertraline (Zoloft) tab 50 mg (COMPLETED) 50 mg, Oral, ONCE, On Sat10/28/24 at 1145, For 1 dose 1154 (Given - Provider: SN Michelle) sodium chloride 0.9 % flush peripheral marisela 3 mL 3 mL, IV Push, Q8H, First dose on Sat10/22/24 at 2200, Until Discontinued, Do not flush if lock, PICC, or central line not in place; IV infusing or unable to flush. 0600 (Given - Provider: Cornell Roche RN)1600 (Given - Provider: Abby Cam RN)2200 (Given - Provider: Jeanna Victor RN) 0820 (Given - Provider: Cody Mckee RN)1441 (Given - Provider: Cody Mckee RN)2200 (Given - Provider: Nory Foley RN) 0600 (Given - Provider: Nory Foley RN)1400 (Due) Thiamine (Vitamin B-1) tab 100 mg 100 mg, Oral, Daily(AM), First dose on Sat10/24/24 at 1000, Until Discontinued 08 (Given - Provider: Abby Cam RN) 0819 (Given - Provider: Cody Mckee RN) 0937 (Given - Provider: SN Michelle) umeclidinium-vilanterol (ANORO ellipta) 62.5-25 MCG/INH inhaler 1 Puff 1 Puff, Inhalation, RESPDAILY, First dose on 10/24/24 at 1000, Until Discontinued, NURSING TO FOLLOW PATIENT WITH MDI/DPI ADMINISTRATION Each inhalation uses 1 strip of each drug 0823 (Given - Provider: Abby Cam RN) 0822 (Given - Provider: Cody Mckee RN) 0946 (Given - Provider: SN Michelle) PRN Medication Order 10/26/2024 10/27/2024 10/28/2024 Albuterol Sulfate (Proventil) (2.5 MG/3ML) 0.083% inhalation solution 2.5 mg 2.5 mg, Nebulizer, Q4H PRN Dyspnea, Starting on Sat10/23/24 at 0233, Until Sat10/28/24 at 1847 hydrOXYzine HCl tab 25 mg 25 mg, Oral, TID PRN Anxiety, Starting on Sat10/23/24 at 0204, Until Sat10/28/24 at 1847 1223 (Given - Provider: Cody Mckee RN)1944 (Given - Provider: Nory Foley RN) LORAzepam (Ativan) tab 2 mg (CANCELED) 2 mg, Oral, Q1H PRN Other, CIWA-Ar score 16-25, repeat CIWA-Ar in 60 minutes. Assess and record Level of consciousness and Respiratory Rate just prior to each dose of LORazepam and 15 minutes after each dose of LORazepam. Hold LORazepam for Respiratory Rate less than 12, somnolent/inability to arouse. Notify provider if 2 doses are given within 2 hours., Starting on Angelina 10/22/24 at 1910, Until Sat10/27/24 at 0906, For 6 days 0024 (Given - Provider: Cornell Roche RN)0823 (Given - Provider: Abby Cam RN)1637 (Given - Provider: Abby Cam RN)2135 (Given - Provider: Jeanna Victor RN - Comment: ciwa [email or web address]) 0424 (Given - Provider: Jeanna Victor RN)0638 (Given - Provider: Jeanna Victor RN) LORAzepam (Ativan) tab 4 mg (CANCELED) 4 mg, Oral, Q1H PRN Other, CIWA-Ar Score greater than 25, repeat CIWA-Ar in 60 minutes. Assess and record Level of consciousness and Respiratory Rate just prior to each dose of LORazepam and 15 minutes after each dose of LORazepam. Hold LORazepam for Respiratory Rate less than 12, somnolent/inability to arouse. Notify provider if 2 doses are given within 2 hours., Starting on Angelina 10/22/24 at 1910, Until 10/27/24 at 0906, For 6 days 1130 (Given - Provider: Abby Cam, ASH) sodium chloride 0.9 % flush/inj 3 mL 3 mL, IV Push, PRN Other, Line Patency, Starting on 10/23/24 at 0202, Until 10/28/24 at 1847, Do not flush if lock, PICC, or central line not in place, IV infusing or unable to flush documented in this encounter Additional Health Concerns Infection Onset Date Last Indicated Resolved Time Respiratory Rule-Out 10/22/2024 10/23/2024 025 1:23 AM EDT COVID-19 Rule-Out 10/22/2024 10/23/2024 10/23/2024 1:23 AM EDT documented as of this encounter Advance Directives [...] the patient have Health Care Power of Cylinder Filler? Yes, not currently available Care Teams Structured Cabling Technician Relationship Specialty Start Date End Date Roseann Plummer MD [address] [id number] PCP - General Internal Medicine 11/05/22 documented as of this encounter
--- OUTSIDE RECORDS SUMMARY | 2024-11-11 08:37 | External Medical Summary ---
Author Name Unknown Address Unknown Organization [id number]:[facility] [place] [address] [place] [id number] Laboratory Report Ordering Provider Test Date Status SAMUEL MARRERO 10/24/2024 08:12:00 Final Observation Date Value Abnormality Reference (Units ) Status BUN 10/24/2024 08:12:00 21 Above high normal 6-20 (mg/dL) Final Creatinine 10/24/2024 08:12:00 1.0 0.5-1.0 (mg/dL) Final Glomerular filtration rate/1.73 sq M.predicted [Volume Rate/Area] in Serum, Plasma or Blood by Creatinine-based formula (CKD-EPI) 10/24/2024 08:12:00 65 >=60 (mL/min) Final eGFR is calculated based on the CKD-EPI 2020 equation. Sodium 10/24/2024 08:12:00 139 135-146 (m mol/L) Final Potassium 10/24/2024 08:12:00 4.6 3.5-5.1 (m mol/L) Final Cl 10/24/2024 08:12:00 96 Below low normal 98- 107 (mmol/L) Final CO2 10/24/2024 08:12:00 34 Above high normal 22 -32 (mmol/L) Final Anion gap 10/24/2024 08:12:00 9 7-15 (mmol /L) Final Glucose 10/24/2024 08:12:00 105 70-120 (mg /dL) Final Calcium 10/24/2024 08:12:00 9.0 8.4-10.2 ( mg/dL) Final Performing Location [facility] [place] - [address] [place] [id number]
--- OUTSIDE RECORDS SUMMARY | 2024-11-11 08:38 | External Medical Summary | Summary of Care ---
Author Name Unknown Organization [facility] Address [address] [place] [address] Phone [phone] Care Team Providers Care Beverage Steward Name Role Phone Roseann Plummer MD Primary Care Provider Reason for Visit * Reason Comments Follow Up Return pulm. Nodule R lung. COPD. Pain L side . Went to ER L side abd pain. Pneumonia and + for Inf A. O2 recovered 94% after sitting for 5 minutes. Encounter Details Date Type Department Care Team (Late st Contact Info) Description 09/17/2024 11:30 AM EST Office Visit Pulmonary Medicine, [facility] [address] [facility] [place] [address] Huan Branham MD [address] [facility] [address] Pulmonary embolism, other, unspecified chronicity, unspecified whether acute cor pulmonale present (HCC)* Allergies Active Allergy Reactions Criticality Noted Date Comments Buspirone Rash 11/01/2022 documented as of this encounter (statuses as of 09/17/2024) Medications methADONE 10 MG Tablet Take 1 [...] skin daily. 28 Patch 5 4 Active Metoprolol Succinate ER 25 MG [...] the morning.. 90 Tablet 1 4 Active Ferrous Gluconate 324 (38 Fe) [...] BEFORE BEDTIME 180 Tablet 1 4 Active Potassium Chloride ER 20 MEQ Oral Tablet Extended ReleaseIndications :Hypokalemia Take 1 Tablet by mouth 2 times a day. 180 Tablet 2 4 Active Magnesium Oxide 400 MG Oral TabletIndications: [...] 4 Active diazePAM 5 MG Oral Tablet (Valium)Indication s:Situational anxiety Take 1 tab by mouth 45-[address] scan. Do not mix with alcohol. Do not drive. 2 Tablet 5 Active hydrOXYzine HCl 25 MG Oral Tablet Take 1 Tablet by mouth 3 times a day as needed. Active Sertraline HCl 50 MG Oral Tablet (Zoloft) Take 1 Tablet by mouth in the morning. Active predniSONE 5 MG Oral Tablet (Deltasone) TAKE 8 TABLETS BY MOUTH ONCE DAILY FOR 3 DAYS, THEN 7 TABLETS DAILY FOR 3 DAYS, THEN DECREASE BY 1 TABLET EVERY 3 DAYS UNTIL FINISHED 5 Active Lidocaine 4 % External Patch (Aspercreme)Indica tions:Degeneration of intervertebral disc of lumbar region, unspecified whether pain present,Chest pain, unspecified type Place 1 Patch over 12 hours topically on the skin daily. Apply to anterior chest and low back 60 Patch 5 5 Active Hospital, Clinic, or Other Facility Administered Medication Ordered Dose Route Frequency Start Date End Date Status Albuterol Sulfate (Proventil) (2.5 MG/3ML) 0.083% inhalation solution 2.5 mgIndications:COPD, mild (HCC) 2.5 mg NEBULIZER PRN 10/11/2022 Active documented as of this encounter (statuses as of 09/17/2024) Active Problems Problem Noted Date Diagnosed Date Pulmonary hypertension due to left heart disease [...] as of this encounter (statuses as of 09/17/2024) Resolved Problems Problem Noted Date Diagnosed Date Resolved Date Chronic kidney disease, stage 3a 10/08/2022 03/01/2023 Overview: Per CKD protocol Substance abuse 05/25/2022 03/01/2023 Thrombocytopenia 05/25/2022 09/06/2023 Food insecurity 05/07/2022 05/14/2024 Overview: Per [facility] Protocol Food insecurity 03/06/2021 01/11/2022 Overview: Per [facility] Protocol documented as of this encounter (statuses as of 09/17/2024) Immunizations Name Administration Dates Next Due Pneumococcal [...] Started: 07/17 22 Smokeless Tobacco: Never Tobacco Cessation:Ready to Q uit: Not Asked; Counseling Given: Not Answered Comments:Smoking 3 cpd . 09/17/24 Alcohol Use Standard Drinks/Week Comments Yes 1 [...] Sign Reading Time Taken Comments Blood Pressure 146/82 09/17/2024 11:24 AM EST Pulse 83 09/17/2024 11:24 AM EST Temperature 36.8 °C (98.2 °F) 09/17/2024 11:[address] Respiratory Rate 16 09/17/2024 11:24 AM EST Oxygen Saturation 86% 09/17/2024 11:26 AM EST ra-amb Inhaled Oxygen Concentration - - Weight 103.4 kg (228 lb) 09/17/2024 11:24 AM EST Height 172.7 cm (5' 8") 09/17/2024 11:24 AM EST Body Mass Index 34.67 09/17/2024 11:24 AM EST documented in this encounter Functional Status * [...] Assessment Author No 12/05/2020 2:35 PM EDT Alok Rodriguez RN * Because of a physical, [...] in this encounter Progress Notes * Huan Branham MD - 09/17/2024 11:32 AM EST Images from the original note were not included. 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, Eliquis Theapy Status since 08/2022. Nl D-Dimer 12/2023, CTPE f/u not done due to suboptimal IV access. Eliquis therapy status since 08/2022. Plan to DC Eliquis after LE Duplex (if Negative) Hx of Pulmonary Nodules, stable on CT Chest 12/20[address] PNA [facility] 08/2024, with COPD Exacerbation, Current Rx: + Rescue Albuterol/Neb. Npot on Anoro LDCT protocol Hypertension GERD DJD CTPE f/u not done due to suboptimal IV access. Compliant with Home Oxygen Left Sided Ribcage Discomfort following recent pneumonia/COPD exacerbation Physical examination significant for class 3 throat, scattered expiratory wheezing, minimal rhonchi, no dullness, regular cardiac rhythm and no evidence of volume overload along with nonlateralizing Neuro examination. Plan: COPD with chronic Hypoxic tresp Failure Recent H influenze PNA witH COPD Excacerbation Follow Up: Return in about 2 months (around 03/17/2024) for Clinic Visit. | For: Clinic Visit | Check-out note: Benefit outweighs the risk. Hx of PE 08/2022, [facility], Eliquis Theapy Status since 08/2022. Nl D-Dimer 12/2023, CTPE f/u not done due to suboptimal IV access. Eliquis therapy status since 08/2022. Plan to DC Eliquis after LE Duplex (if Negative) D-Dimer 12/2023: WNL OK to DC Eliquis if LE Duplex Negative. Pt has completed more than 1 yr of AC C/w Albuterol neb Q 4 PRN DC Trelegy Resume Anoro (unable to tolerate steroids) C/w LDCT protocol Pulm clinic f/u 3 months Follow Up: Return in about 3 months (around 12/15/2024) for Clinic Visit. | For: Clinic Visit | Check-out note: COPD with chronic Hypoxic tresp Failure Recent H influenze PNA witH COPD Excacerbation Follow Up: Return in about 2 months (around 03/17/2024) for Clinic Visit. | For: Clinic Visit | Check-out note: Benefit outweighs the risk. Hx of PE 08/2022, [facility], Eliquis Theapy Status since 08/2022. Nl D-Dimer 12/2023, CTPE f/u not done due to suboptimal IV access. Eliquis therapy status since 08/2022. Plan to DC Eliquis after LE Duplex (if Negative) D-Dimer 12/2023: WNL DC Eliquis if LE Duplex Negative C/w Follow Up: Return in about 3 months (around 12/15/2024) for Clinic Visit. | For: Clinic Visit | Check-out note: Albuterol neb Q 4 PRN DC Trelegy Resume Anoro (unable to tolerate steroids) C/w LDCT protocol Pulm clinic f/u 3 months I spent a total of 40-54 minutes (exact time 40 mins) on the date of service in preparation, delivery, and documentation of the care provided to Bhumika Flores excluding any time spent in the performance of separately billed services or time spent by another provider/QHP. Huan Branham MD Data review: Following reports, and data as outlined below was personally reviewed and interpreted by myself. CT Chest [facility] 09/02/2024 CT Chest Without Contrast; Diagnostic Exam date [...] in 6-12 months to establish long-term stability. CT PE 08/2022 [facility]. Subsegmental Filling Defect LLL and Left Lingula PFT 09/2022: Interpretation:Spirometry revealed moderate obstruction by [...] FEV1 and FVC have not changed significantly. Subjective CC: Chief Complaint Patient presents with Follow Up Return pulm. Nodule R lung. COPD. Pain L side . Went to ER L side abd pain. Pneumonia and + for InfA. O2 recovered 94% after sitting for 5 minutes. HPI: Nursing Notes: Denise Torres SWEETIE 09/17/24 1131 Signed Chief Complaint Patient presents with Follow Up Return pulm. Nodule R lung. COPD. Pain L side . Went to ER L side abd pain. Pneumonia and + for InfA. O2 recovered 94% after sitting for 5 minutes. Interm History/Respiratory Symptoms Cough: yes-grayish phlegm Hemoptysis: no Sinus Symptoms: yes-congestion. Has humidifier for home O2 unit. Scabs in nose keep bleeding Hospitalizations: 08/31-09/07-+ inf A and pneumonia L Left ED Trips: 08/31 Triggers: none Nocturnal: sleeps with head elevated CPAP/BiPAP/O2: O2 4L at night DME Supplier: [facility] Flu Vaccine: 2019 Pneumovax: 2019 Prevnar: none COVID 19: none. MMRC Dyspnea Scale = 3 (I stop for breath after walking about 100 yards or after a few minutes on ground level) Objective Filed Vitals: 09/17/24 1124 09/17/24 1126 BP: 146/82 Pulse: 83 Resp: 16 Temp: 36.8 °C (98.2 °F) TempSrc: Tympanic SpO2: 86% 86% Weight: 103.4 kg (228 lb) Height: 1.727 m (5' 8") Exam: [...] is normal. Tests reviewed with the patient: VASC DUPLEX VENOUS LE BILAT Result Date: 06/23/2024 IMPRESSION: No ultrasound evidence of deep venous thrombosis right and left lower extremity as discussed. Available Radiologic data was reviewed by me in PACS. The images were shown to the patient and findings were discussed with the patient. HOME MEDICATIONS: Lidocaine 4 % External Patch (Aspercreme) predniSONE 5 MG Oral Tablet (Deltasone) hydrOXYzine HCl 25 MG Oral Tablet Sertraline HCl 50 MG Oral Tablet (Zoloft) diazePAM 5 MG Oral Tablet (Valium) Folic Acid 1 MG Oral Tablet Nicotine 7 MG/24HR Transdermal Patch 24 Hour (Nicoderm CQ) Magnesium Oxide 400 MG Oral Tablet Potassium Chloride ER 20 MEQ Oral Tablet Extended Release Eliquis 5 MG Oral Tablet (Apixaban) Ferrous Gluconate 324 (38 Fe) MG Oral Tablet Albuterol Sulfate HFA 108 (90 Base) MCG/ACT Inhalation Aerosol Solution Pantoprazole Sodium 40 MG Oral Tablet Delayed Release (Protonix) amLODIPine Besylate 10 MG Oral Tablet (Norvasc) Furosemide 40 MG Oral Tablet (Lasix) Metoprolol Succinate ER 25 MG Oral Tablet Extended Release 24 Hour (toPROL XL) Beet Root 500 MG Oral Capsule Multivitamins Oral Capsule Nicotine 14 MG/24HR Transdermal Patch 24 Hour (Nicoderm CQ) Albuterol Sulfate 0.63 MG/3ML Inhalation Nebulization Solution (Accuneb) oxygen IN GAS Bisacodyl 5 MG Oral Tablet Delayed Release (Dulcolax) methADONE 10 MG Tablet Albuterol Sulfate (Proventil) (2.5 MG/3ML) 0.083% inhalation [...] group C, by GOLD 2017 classification ([facility]) 10/09/2021 Per COPD GOLD Classification HTN, goal below 130/80 05/04/2020 Methadone use Nodule of right lung 05/25/2022 Obesity Pneumonia Pulmonary emboli (HCC) Recurrent major depressive disorder ([facility]) 09/20/2021 Substance abuse (HCC) Thrombocytopenia ([facility]) 05/25/2022 Tobacco use disorder 11/22/2020 Past Surgical History: Procedure Laterality Date TOTAL HIP REPLACEMENT & PROSTHESIS Right 12/05/2020 ROBOTIC ARTHROPLASTY TOTAL HIP performed by Rodolfo Park, at OR [facility] Social History Socioeconomic History Marital status: Tobacco Use Smoking status: Every Day Current packs/day: 0.00 Average packs/day: 2.0 packs/day for 42.1 years (84.1 ttl pk-yrs) Types: Cigarettes, Vaporizer Start date: 1981 Last attempt to quit: 08/23/2023 Years since quittin.0 Smokeless tobacco: Never Tobacco comments: Smoking 3 cpd . 09/17/24 Vaping Use Vaping status: Former Substance and Sexual Activity Alcohol use: Yes Alcohol/week: 1.0 standard drink of alcohol Types: 1 1.5 oz of liquor per week Comment: 1 nightly Drug use: Not Currently Types: Heroin Comment: currently on methadone Social History Narrative 1 dog in her home. No mold. Social Needs Financial Resource Strain: Low Risk (05/20/2024) Financial Resource Strain Do you have any trouble paying for your medications, or do you think you might in the future? (Adult - for ages 18 years and over): No Food Insecurity: No Food Insecurity (05/20/2024) Food Insecurity Worried About Running Out of Food in the Last Year: Never true Ran Out of Food in the Last Year: Never true Do you need food for this week? (Adult - for ages 18 years and over): No Transportation Needs: Unmet Transportation Needs (05/20/2024) Transportation Needs Do you have trouble getting a ride to medical visits or work? (Adult - for ages 18 years and over):Sometimes True Has lack of transportation kept you from medical appointments, meetings, work, or from getting things needed for daily living? Check all that apply. (Adult - for ages 18 years and over): No Social Connections: Socially Integrated (05/20/2024) Social Connections How often do you feel lonely or isolated from those around you? (Adult - for ages 18 years and over): Never Housing Stability: Low Risk (05/20/2024) Housing Stability Do you currently live in a fci or have no steady place to sleep at night? (Adult - for ages 18 years and over): No Are you homeless or worried that you [...] documented in this encounter Nursing Notes * Denise Torres LPN - 09/17/2024 11:27 AM EST Chief Complaint Patient presents with Follow Up Return pulm. Nodule R lung. COPD. Pain L side . Went to ER L side abd pain. Pneumonia and + for Inf A. O2 recovered 94% after sitting for 5 minutes. Interm History/Respiratory Symptoms Cough: yes-grayish phlegm Hemoptysis: no Sinus Symptoms: yes-congestion. Has humidifier for home O2 unit. Scabs in nose keep bleeding Hospitalizations: 08/31-09/07-+ inf A and pneumonia L Left ED Trips: 08/31 Triggers: none Nocturnal: sleeps with head elevated CPAP/BiPAP/O2: O2 4L at night DME Supplier: [facility] Flu Vaccine: 2019 Pneumovax: 2020 Prevnar: none COVID 19: none. MMRC Dyspnea Scale = 3 (I stop for breath after walking about 100 yards or after a few minutes on ground level) documented in this encounter Plan of Treatment Upcoming Encounters Date Type Department Care Team (Late st Contact Info) Description 12/04/2024 8:00 AM EDT Office Visit Family Practice [facility] [address] [place] [id number] Roseann Plummer MD [address] [address] 07/07/2025 9:00 AM EST Office Visit Gynecology/Obstetrics [facility] [address] [place] [address] Anahi Anthony CRNP [address] [place] [address] Scheduled Orders Name Type Priority Associated Diagnoses Orde r Schedule VASC DUPLEX VENOUS LE BILAT Medical Imaging Routine Pulmonary embolism, other, unspecified chronicity, unspecified whether acute cor pulmonale present (HCC) Expected: 09/18/2024, Expires: 10/15/2025 Health Maintenance Due Date Last Done Comments DISCUSS TOBACCO CESSATION (REFER TO SMARTSET #0147) 1965 Alpha-1 Antitrypsin 1985 Pap Smear 1988 Cervical Cancer Screening 1997 HPV/Co-Test 1997 Cologuard 2012 Colonoscopy 2012 Sigmoidoscopy 2012 Mammogram 02/28/2021 02/29/2020 *ADVANCE DIRECTIVE NOT ON FILE 10/14/2021 Influenza Vaccine (FLU shot) (#1) 2024 04/28/2020, 04/28/2020 Albumin/Creatinine Ratio 04/26/2025 04/26/2022 Depression Monitoring 05/20/2025 05/20/2024 Colorectal Cancer Screening 05/26/2025 Fecal Occult Blood Test 05/26/2025 05/26/20 24, 05/26/2024, 04/25/2023, Additional history exists GFR 07/17/2025 07/17/2024, 05/29, 04/10/2024, Additional history exists O2 ASSESSMENT COMPLETED IN PAST YEAR FOR COPD 09/17/2025 09/17/2024 Lipid Panel 11/25/2025 11/25/2020, 02/29/2020 Diabetes Screening [...] this encounter Medical Devices Implanted Type Area Infection Prevention Practitioner Device Identifier Shelf Expiration Date Model / Serial / Lot Shell Acet Trident Ii 50mm - [id number] Implanted:Qty: 1 on 12/05/2020 by Rodolfo Park DO at OR [facility] Right: Hip KANDICE : OR[employer] 09/04/2024 702-04-50D / / [id number] Trident Acetabular X3 0 36 D - [id number] Implanted:Qty: 1 on 12/05/2020 by Rodolfo Park DO at OR [facility] Right: Hip KANDICE : ORTHOPA[employer] 09/14/2025 723-00-36D / / [id number] Hip Hd Nk Gavin Pino D 36/ 25 - [id number] Implanted:Qty: 1 on 12/05/2020 by Rodolfo Park DO at OR [facility] Right: Hip KANDICE : ORTHOPAEDICS 10/03/2025 6570-0-436 / / [id number] Accolade Ii 127 Deg Sz 4 - [id number] Implanted:Qty: 1 on 12/05/2020 by Rodolfo Park DO at OR [facility] Right: Hip KANDICE : ORTHOPAEDICS 11/07/2025 [id number] / / [id number] documented as of this encounter Visit Diagnoses Diagnosis Pulmonary embolism, other, unspecified chronicity, unspecified whether acute cor pulmonale present (HCC)- Primary documented in this encounter Advance [...] the patient have Health Care Power of Shaker Plate Operator? Yes, not currently available Care Teams Beverage Steward Relationship Specialty Start Date End Date Roseann Plummer MD [address] [place] [address] PCP - General Internal Medicine 11/05/22 documented as of this encounter
--- OUTSIDE RECORDS SUMMARY | 2024-11-11 08:38 | External Medical Summary | Summary of Care ---
Author Name Unknown Organization [facility] Address [address] [place] [address] Phone [phone] Care Team Providers Care Finance Vice President Name Role Phone Roseann Plummer MD Primary Care Provider Reason for Visit * Reason Onset Date Comments Advice 09/07/2024 Encounter Details Date Type Department Care Team ([facility] st Contact Info) Description 09/07/2024 Telephone Access Center, [place] [address] [facility] *DO NOT REMOVE THIS DEPARTMENT* [place] [address] Services, Scheduling [address] [place] [address] Advice Allergies Active Allergy Reactions Criticality Noted Date Comments Buspirone Rash 11/01/2022 documented as of this encounter (statuses as of 09/11/2024) Medications methADONE 10 MG Tablet Take 1 [...] on the skin daily. 28 Patch 5 05/20/20 24 Active Metoprolol Succinate ER 25 MG [...] breakfast. 90 Tablet 1 05/11/20 24 Active Pantoprazole Sodium 40 MG Oral Tablet Delayed Release (Protonix) Take 1 Tablet by mouth in the morning. 90 Tablet 1 05/08/20 24 Active Albuterol Sulfate HFA 108 (90 [...] 24 Active Magnesium Oxide 400 MG Oral TabletIndicatio ns:Hypomagnesem [...] 24 Active diazePAM 5 MG Oral Tablet (Valium)Indicat ions:Situationa l anxiety Take 1 tab by mouth 45-[address] scan. Do not mix with alcohol. Do not drive. 2 Tablet 08/18/19 25 Active DULoxetine HCl 30 MG Oral Capsule Delayed Release Particles (Cymbalta)Indic ations:Mood disorder (HCC) Take 1 Capsule by mouth in the morning. Every morning.. 90 Capsule 3 01/01/20 24 025 Discontinued(Me dication List Clean Up) Clobetasol Propionate 0.05 % External Cream (Temovate)Indic ations:Psoriasi s vulgaris Apply to rash on buttocks and thighs twice daily for 2 weeks 60 g 5 02/26/20 24 025 Discontinued(Me dication List Clean Up) oxyCODONE-Aceta minophen 5-325 MG Oral Tablet (Percocet) Take 1 Tablet by mouth every 4 hours as needed for Pain, Moderate. 15 Tablet 03/12/20 24 025 Discontinued(Me dication List Clean Up) oxyCODONE-Aceta minophen 5-325 MG Oral Tablet (Percocet) Take 1 Tablet by mouth every 4 hours as needed for Pain, Moderate. 15 Tablet 4 12:51 PM EDT 03/16/20 24 025 Discontinued(Me dication List Clean Up) Escitalopram Oxalate 10 MG Oral Tablet (Lexapro) Take 1 Tablet by mouth in the morning. 025 Discontinued Hospital, Clinic, or Other Facility Administered Medication Ordered Dose Route Frequency Start Date End Date Status Albuterol Sulfate (Proventil) (2.5 MG/3ML) 0.083% inhalation solution 2.5 mgIndications:COPD, mild (HCC) 2.5 mg NEBULIZER PRN 10/11/2022 Active documented as of this encounter (statuses as of 09/11/2024) Active Problems Problem Noted Date Diagnosed Date [...] as of this encounter (statuses as of 09/11/2024) Resolved Problems Problem Noted Date Diagnosed Date Resolved Date Chronic kidney disease, stage 3a 10/08/2022 03/01/2023 Overview: Per CKD protocol Substance abuse 05/25/2022 03/01/2023 Thrombocytopenia 05/25/2022 09/06/2023 Food insecurity 05/07/2022 05/14/2024 Overview: Per [facility] Protocol Food insecurity 03/06/2021 01/11/2022 Overview: Per [facility] Protocol documented as of this encounter (statuses as of 09/11/2024) Immunizations Name Administration Dates Next Due Pneumococcal [...] Telephone Encounter - Roseann Plummer MD - 09/11/2024 2:46 PM EST Patient needs HD f/u with Pulmonary - was just inpatient for acute respiratory failure, COPD exacerbation. Please help patient schedule. * Telephone Encounter - Urvashi Mendoza OSA - 09/07/2024 9:28 AM EST Davis Martinez called in and tried to schedule a HD for the patient and there is nothing to schedule, please advise. Thank you. documented in this encounter Plan of Treatment Upcoming Encounters Date Type Department Care Team (Late st Contact Info) Description 12/04/2024 8:00 AM EDT Office Visit Family Practice [facility] [address] [place] [address] Roseann Plummer MD [address] [place] [address] 07/07/2025 9:00 AM EST Office Visit Gynecology/Obstetrics [facility] [address] [place] [address] Anahi Anthony CRNP [address] [place] [address] Health Maintenance Due Date Last Done Comments [...] ASSESSMENT COMPLETED IN PAST YEAR FOR COPD 09/11/2025 09/11/2024 Lipid Panel 11/25/2025 11/25/2020, 02/29/2020 Diabetes Screening [...] this encounter Medical Devices Implanted Type Area Oven Equipment Repairer Device Identifier Shelf Expiration Date Model / Serial / Lot Shell Acet Trident Ii 50mm - [id number] Implanted:Qty: 1 on 12/05/2020 by Rodolfo Park DO at [facility] Right: Hip KANDICE : ORTHOPA[employer] 09/04/2024 702-04-50D / / [id number] Trident Acetabular X3 0 36 D - [id number] Implanted:Qty: 1 on 12/05/2020 by Rodolfo Park DO at OR [facility] Right: Hip KANDICE : ORTHOPAEDICS 09/14/2025 723-00-36D / / [id number] Hip Hd Nk Gavin Hummel 36/ 25 - [id number] Implanted:Qty: 1 on 12/05/2020 by Rodolfo Park DO at [facility] Right: Hip KANDICE : ORTHOPAEDICS 10/03/2025 6570-0-436 / / [id number] Accolade Ii 127 Deg Sz 4 - [id number] Implanted:Qty: 1 on 12/05/2020 by Rodolfo Park DO at [facility] Right: Hip KANDICE : ORTHOPAEDICS 11/07/2025 [id number] / / [id number] documented as of this encounter Advance Directives [...] the patient have Health Care Power of Hand Coper? Yes, not currently available Care Teams Finance Vice President Relationship Specialty Start Date End Date Roseann Plummer MD [address] [place] [address] PCP - General Internal Medicine 11/05/22 documented as of this encounter
--- OUTSIDE RECORDS SUMMARY | 2024-11-11 08:38 | External Medical Summary | Summary of Care ---
Author Name Unknown Organization [facility] Address [address] [place] [address] Phone [phone] Care Team Providers Care Sleeve Maker Name Role Phone Roseann Plummer MD Primary Care Provider Encounter Details Date Type Department Care Team ([facility] st Contact Info) Description 09/25/2024 12:30 PM EST Scheduled Telephone Care Coordination and Integration [address] [place] [address] Kristel Mckeon [facility] [address], [place] [id number] Allergies Active Allergy Reactions Criticality Noted Date Comments Buspirone Rash 11/01/2022 documented as of this encounter (statuses as of 09/25/2024) Medications methADONE 10 MG Tablet Take 1 [...] as of this encounter (statuses as of 09/25/2024) Active Problems Problem Noted Date Diagnosed Date [...] as of this encounter (statuses as of 09/25/2024) Resolved Problems Problem Noted Date Diagnosed Date Resolved Date Chronic kidney disease, stage 3a 10/08/2022 03/01/2023 Overview: Per CKD protocol Substance abuse 05/25/2022 03/01/2023 Thrombocytopenia 05/25/2022 09/06/2023 Food insecurity 05/07/2022 05/14/2024 Overview: Per [facility] Protocol Food insecurity 03/06/2021 01/11/2022 Overview: Per [facility] Protocol documented as of this encounter (statuses as of 09/25/2024) Immunizations Name Administration Dates Next Due Pneumococcal [...] documented in this encounter Progress Notes * Kristel Mckeon [facility] - 09/25/2024 12:09 PM EST Telemedicine visit: No Community Health Director [facility] (CORIE) documentation: CHW sowmya call per ASH Cedeño CM No answer; left VM requesting call back to documented in this encounter Plan of Treatment Upcoming Encounters Date Type Department Care Team (Late st Contact Info) Description 09/30/2024 1:00 PM EST Imaging Vascular Lab, [facility] 2nd [facility], [address] [place] [address] 12/04/2024 8:00 AM EDT Office Visit Family Practice [facility] [address] [facility] [place] [address] Roseann Plummer MD 132 [facility] [place] [address] 12/16/2024 1:00 PM EDT Nutrition Services Nutrition, [facility] 132 [facility] [place] [address] Zari Bonilla RDN 132 [facility] [place] [address] 12/28/2024 12:30 PM EDT Office Visit Pulmonary Medicine, [facility] [address] [facility] [place] [address] Huan [facility]ham MD [address] [facility] [address] 07/07/2025 9:00 AM EST Office Visit Gynecology/Obstetrics [facility] 132 [facility] [place] [address] Anahi Anthony CRNP 132 [facility] [place] [address] Health Maintenance Due Date Last Done Comments DISCUSS TOBACCO CESSATION (REFER TO SMARTSET #[id number]) 1965 Alpha-1 Antitrypsin 1985 Pap Smear 1988 [...] this encounter Medical Devices Implanted Type Area Shrimper Device Identifier Shelf Expiration Date Model / Serial / Lot Shell Acet Trident Ii 50mm - [id number] Implanted:Qty: 1 on 12/05/2020 by Rodolfo Park DO at OR [facility] Right: Hip KANDICE : ORTHOPAEDICS 09/04/2024 702-04-50D / / [id number] Trident Acetabular X3 0 36 D - [id number] Implanted:Qty: 1 on 12/05/2020 by Rodolfo Park DO at OR [facility] Right: Hip KANDICE : ORTHOPAEDICS 09/14/2025 723-00-36D / / [id number] Hip Hd Perry Hummel 36/ 25 - [id number] Implanted:Qty: 1 on 12/05/2020 by Rodolfo Park DO at OR [facility] Right: Hip KANDICE : ORTHOPAEDICS 10/03/2025 6570-0-436 / / [id number] Accolade Ii 127 Deg Sz 4 - [id number] Implanted:Qty: 1 on 12/05/2020 by Rodolfo Park DO at OR [facility] Right: Hip KANDIEC : ORTHOPAEDICS 11/07/2025 [id number] / / [id number] documented as of this encounter Advance Directives [...] the patient have Health Care Power of Branch Sales Manager? Yes, not currently available Care Teams Sleeve Maker Relationship Specialty Start Date End Date Roseann Plummer MD [address] [place] [address] PCP - General Internal Medicine 11/05/22 documented as of this encounter
--- OUTSIDE RECORDS SUMMARY | 2024-11-11 08:38 | External Medical Summary | Summary of Care ---
Author Name Unknown Organization [facility] Address [address] [place] [address] Phone [phone] Care Team Providers Care Investment Accountant Name Role Phone Roseann Plummer MD Primary Care Provider Reason for Visit * Reason Onset Date Comments Hospital Follow-Up [facility] 08/31-09/07 for shortness of breath and chest pain. Dx'd with early pneumonia and flu Hospital Follow-Up 09/11/2024 Encounter Details Date Type Department Care Team (Latest Contact Info) Description 09/11/2024 2:00 PM EST Office Visit Family Practice [facility] [place] [address] Roseann Plummer MD [address] [place] [address] Hospital discharge follow-up*; COPD, group C, by GOLD 2017 classification ([facility]); Pulmonary hypertension due to left heart disease ([facility]); Dependence on supplemental oxygen; Chest pain, unspecified type; Degeneration of intervertebral disc of lumbar region, unspecified whether pain present; Major depressive disorder, recurrent, moderate ([facility]); Prolonged QT interval; Elevated hemoglobin ([facility]); Hypokalemia; Cyst of kidney, acquired; Restless legs syndrome (RLS); Gastroesophageal reflux disease without esophagitis; Opioid dependence in remission ([facility]) Allergies Active Allergy Reactions Criticality Noted Date [...] 24 Active Magnesium Oxide 400 MG Oral TabletIndications [...] 24 Active diazePAM 5 MG Oral Tablet (Valium)Indicatio ns:Situational anxiety Take 1 tab by mouth 45-[address] scan. Do not mix with alcohol. Do not drive. 2 Tablet 08/18/19 25 Active hydrOXYzine HCl 25 MG Oral Tablet [...] 1 TABLET EVERY 3 DAYS UNTIL FINISHED 09/07/19 25 Active Lidocaine 4 % External Patch (Aspercreme)Indic ations:Degenerati on of intervertebral disc of lumbar region, unspecified whether pain present,Chest pain, unspecified type Place 1 Patch over 12 hours topically on the skin daily. Apply to anterior chest and low back 60 Patch 5 09/11/19 25 Active DULoxetine HCl 30 MG Oral Capsule Delayed Release Particles (Cymbalta)Indicat ions:Mood disorder (HCC) Take 1 Capsule by mouth in the morning. Every morning.. 90 Capsule 3 01/01/20 24 2024 Discontinued(M edication List Clean Up) Clobetasol Propionate 0.05 % External Cream (Temovate)Indicat ions:Psoriasis vulgaris Apply to rash on buttocks and thighs twice daily for 2 weeks 60 g 5 02/26/20 24 2024 Discontinued(M edication List Clean Up) oxyCODONE-Acetami nophen 5-325 MG Oral Tablet (Percocet) Take 1 Tablet by mouth every 4 hours as needed for Pain, Moderate. 15 Tablet 03/12/20 24 2024 Discontinued(M edication List Clean Up) oxyCODONE-Acetami nophen 5-325 MG Oral Tablet (Percocet) Take 1 Tablet by mouth every 4 hours as needed for Pain, Moderate. 15 Tablet 4 12:51 PM EDT 03/16/20 24 2024 Discontinued(M edication List Clean Up) Escitalopram Oxalate 10 MG Oral Tablet (Lexapro) Take 1 Tablet by mouth in the morning. 2024 Discontinued Cefdinir 300 MG Oral Capsule (Omnicef) Take 1 Capsule by mouth in the morning and 1 Capsule before bedtime. Last dose should be on 09/13. 2024 Discontinued(M edication List Clean Up) predniSONE 5 MG Oral Tablet Delayed Release (Ricardo) Take by mouth. 2024 Discontinued Hospital, Clinic, or Other Facility [...] No 05/20/2024 Does the household have a [facility] source [facility] income? (Household [...] Sign Reading Time Taken Comments Blood Pressure 140/68 09/11/2024 1:51 PM EST Pulse 83 09/11/2024 1:51 PM EST Temperature - - Respiratory Rate - - Oxygen Saturation 88% 09/11/2024 1:51 PM EST Inhaled Oxygen Concentration - - Weight 102.3 kg (225 lb 9.6 oz) 09/11/2024 1:51 PM EST Height - - Body Mass Index 34.3 01/16/2024 11:12 AM EDT documented in this [...] Progress Notes * Roseann Plummer MD - 09/11/2024 2:14 PM EST SUBJECTIVE: Bhumika Flores is a 59 year old female. Chief Complaint Patient presents with Hospital Follow-Up [facility] 08/31-09/07 for shortness of breath and chest pain. Dx'd with early pneumonia and flu Hospital Follow-Up Recent Admission: Patient was recently admitted to [facility] 08/31/24. The date of discharge was 09/07/24. Discharge report received and reviewed. HPI: Acute COPD exacerbation Influenza A Acute on chronic hypoxic respiratory failure Sputum ctx pos for H influenzae Bld ctx grew contaminants Required BiPap at one point. Full code. Around the clock nebs Completed course of azithromycin, rocephin. IV solumedrol, transition to PO prednizone. Tamiflu. Limited use of IV ativan for alcohol withdrawal. (Requested multiple times for anxiety) Discharged home with 3 days of cefdinir, extended prednisone taper. At baseline 4L oxygen. Use home inhalers. F/u with pulm. Psych consulted for anxiety. Recommended started sertraline 50mg and prn hydroxyzine 12.5mg q6h, closely monitor Qtc. Qtc 444 day of discharge. K3.9 at discharge, patient is still taking potassium supplements. KARLA with Cr 1.24 on admission, patient reports returned to normal before discharge. Hyperglycemia likely 2/2 steroids Continued Eliquis for Hx PE Maintained methadone, takes 100mg daily. For next provider: F/u chest CT in 3-6 mo Pulm f/u (saw Dr Monzon inpatient, last [facility] visit 12/2023) Pulm follow-up has been requested but not yet scheduled. Patient Active Problem List Diagnosis HTN, goal [...] COPD, group C, by GOLD 2017 classification ([facility]) Medical home patient encounter KARLA (acute kidney injury) (HCC) Anemia Nodule of right lung Pulmonary emboli (HCC) Dependence on supplemental oxygen Opioid dependence, uncomplicated (HCC) Alcohol dependence, uncomplicated (HCC) Cyst of kidney, acquired Restless legs syndrome (RLS) Pulmonary hypertension due to left heart disease (HCC) Elevated hemoglobin (HCC) Hypokalemia Opioid dependence in remission (HCC) Major depressive disorder, recurrent, moderate (HCC) Current Outpatient Medications Medication Sig Dispense Refill [...] 1 Capsule by mouth in the morning. Nicotine 14 MG/24HR Transdermal Patch 24 Hour (Nicoderm CQ) Place 1 Patch over 24 hours topically on the skin daily. 28 Patch 5 Metoprolol Succinate ER 25 MG Oral [...] by mouth daily with breakfast. 90 Tablet1 Pantoprazole Sodium 40 MG Oral Tablet Delayed Release (Protonix) Take 1 Tablet by mouth in the morning. 90 Tablet 1 Albuterol Sulfate HFA 108 (90 Base) MCG/ACT [...] by mouth at bedtime. 180 Tablet 3 Nicotine 7 MG/24HR Transdermal Patch 24 Hour (Nicoderm CQ) APPLY 1 PATCH TOPICALLY DAILY 28 Patch 5 Folic Acid 1 MG Oral Tablet Take 1 Tablet by mouth in the morning. 30 Tablet 5 hydrOXYzine HCl 25 MG Oral Tablet Take 1 Tablet by mouth 3 times a day as needed. Sertraline HCl 50 MG Oral Tablet (Zoloft) Take 1 Tablet by mouth in the morning. predniSONE 5 MG Oral Tablet (Deltasone) TAKE 8 TABLETS BY MOUTH ONCE DAILY FOR 3 DAYS, THEN 7 TABLETS DAILY FOR 3 DAYS, THEN DECREASE BY 1 TABLET EVERY 3 DAYS UNTIL FINISHED Lidocaine 4 % External Patch (Aspercreme) Place 1 Patch over 12 hours topically on the skin daily. Apply to anterior chest and low back 60 Patch 5 diazePAM 5 MG Oral Tablet (Valium) Take 1 tab by mouth 45-[address] scan. Do not mix with alcohol. Do not drive. 2 Tablet 0 Current Facility-Administered Medications Medication Dose Route Frequency Provider Last Rate Last Admin Albuterol Sulfate (Proventil) (2.5 MG/3ML) 0.083% inhalation solution 2.5 mg 2.5 mg Nebulizer PRN Caitlin Vasques, DO 2.5 mg at 10/18/22 1450 Current and discharge medications have been reconciled. Review of patient's allergies indicates: Allergen Reactions Buspar [Buspirone] Rash OBJECTIVE: BP 140/68 (BP Site: Left Arm, BP Position: Sitting, BP Cuff Size: Regular) | Pulse 83 | Wt 225 lb 9.6 oz (102.3 kg) | SpO2 88% | BMI 34.30 kg/m² | BSA 2.22 m² REVIEW OF SYSTEMS: Review of Systems Constitutional: Positive for unexpected weight change (from steroids). Negative for fever. HENT: Positive for voice change. Negative for trouble swallowing. Eyes: Negative for visual disturbance. Respiratory: Using ISS and flutter valve every hour. Mobilizing lynne sputum. Cardiovascular: Still having chest pain in L lower anterior lung. Has had this ever since inhaled burning plastic tubing from portable concentrator two weeks ago. Gastrointestinal: Diarrhea: lidocaine. A lot better. Moving bowels 1-2/day. Endocrine: Taking potassium and magnesium supplement Genitourinary: Urine has been a darker yellow, no odor. No vaginal sx, has monistat 7 just in case. Musculoskeletal: Low back pain really bothering her. Methadone not helping. Psychiatric/Behavioral: Positive for dysphoric mood. Substance use disorder. Methadone 100mg. Has had 2-3 days of sertraline, started after discharge. Alcohol - none Nicotine - smoking restarted after left hospital. 2-3 cigarettes/day. Takes a couple drags then puts out. Cannabis - gummies, at night for sleep PHYSICAL EXAM: BP 140/68 (BP Site: Left Arm, BP Position: Sitting, BP Cuff Size: Regular) | Pulse 83 | Wt 225 lb 9.6 oz (102.3 kg) | SpO2 88% | BMI 34.30 kg/m² | BSA 2.22 m² Physical Exam Vitals (pulse ox 88-92% during visit) and nursing note reviewed. Constitutional: General: She is not in acute distress. Appearance: Normal appearance. She is not ill-appearing. HENT: Head: Normocephalic and atraumatic. Mouth/Throat: Mouth: Mucous membranes are moist. Pharynx: Oropharynx is clear. Eyes: General: No scleral icterus. Conjunctiva/sclera: Conjunctivae normal. Pupils: Pupils are equal, round, and reactive to light. Neck: Thyroid: No thyroid mass, thyromegaly or thyroid tenderness. Cardiovascular: Rate and Rhythm: Normal rate and regular rhythm. Heart sounds: No murmur heard. Pulmonary: Comments: Very tight, poor air flow. Diffuse wheezing and rhonchi. Not in respiratory distress. Nonfocal Abdominal: General: Abdomen is flat. There is no distension. Palpations: Abdomen is soft. Tenderness: There is no abdominal tenderness. There is no guarding or rebound. Musculoskeletal: Right lower leg: No edema. Left lower leg: No edema. Lymphadenopathy: Cervical: No cervical adenopathy. Skin: General: Skin is warm and dry. Neurological: General: No focal deficit present. Mental Status: She is alert. Psychiatric: Mood and Affect: Mood normal. Behavior: Behavior normal. ASSESSMENT: Hospital discharge follow-up (Primary) - DISCH MED RECON CUR MED LIS COPD, group C, by GOLD 2017 classification (HCC) Pulmonary hypertension due to left heart disease (HCC) Dependence on supplemental oxygen Chest pain, unspecified type - Lidocaine 4 % External Patch (Aspercreme); Place 1 Patch over 12 hours topically on the skin daily. Apply to anterior chest and low back Degeneration of intervertebral disc of lumbar region, unspecified whether pain present - Lidocaine 4 % External Patch (Aspercreme); Place 1 Patch over 12 hours topically on the skin daily. Apply to anterior chest and low back Major depressive disorder, recurrent, moderate (HCC) Prolonged QT interval - EKG; Future; Expected date: 09/11/2024 - EKG Elevated hemoglobin (HCC) Hypokalemia Cyst of kidney, acquired Restless legs syndrome (RLS) Gastroesophageal reflux disease without esophagitis Opioid dependence in remission (HCC) Message sent to Pulmonary to arrange follow-up. Continue with incentive spirometry and flutter valve. Using oxygen, discussed goal of 88-92%. Has apulse ox at home. Complete slow prednisone taper, currently taking 35 mg daily of prednisone. Suspect chest pain is musculoskeletal, she is tender to palpation. Will try lidocaine patches for her chest in her lower back. Encouraged her to discuss with her methadone clinic whether she might be able to wean and switch tobuprenorphine which has better effects for treating pain in addition to substance use disorder. Not sure if her clinical be able to do that or if she would need to transfer to a different clinic. I spent a total of 40-54 minutes [...] 8:00 AM EDT Office Visit Family Practice [facility] [address] [place] [address] Roseann Plummer MD [address] [place] [address] 07/07/2025 9:00 AM EST Office Visit Gynecology/Obstetrics [facility] [address] [place] [address] Anahi Anthony CRNP [address] [place] [address] Scheduled Orders Name Type Priority Associated Diagnoses Orde r Schedule EKG EKG Routine Prolonged QT interval Expected: 09/11/2024 (Approximate), Expires: 10/09/2025 Health Maintenance Due Date Last Done Comments [...] this encounter Medical Devices Implanted Type Area Handicraft Or Hobby Shop Manager Device Identifier Shelf Expiration Date Model / Serial / Lot Shell Acet Trident Ii 50mm - [id number] Implanted:Qty: 1 on 12/05/2020 by Rodolfo Park, DO at OR [facility] Right: Hip KANDICE : ORTHOPAEDICS 09/04/2024 702-04-50D / / [id number] Trident Acetabular X3 0 36 D - [id number] Implanted:Qty: 1 on 12/05/2020 by Rodolfo Park DO at OR [facility] Right: Hip KANDICE : ORTHOPAEDICS 09/14/2025 723-00-36D / / [id number] Hip Hd Nk Gavin Hummel / - [id number] Implanted:Qty: 1 on 12/05/2020 by Rodolfo Park DO at OR [facility] Right: Hip KANDICE : ORTHOPAEDICS 10/03/2025 6570-0-436 / / [id number] Accolade Ii 127 Deg Sz 4 - [id number] Implanted:Qty: 1 on 12/05/2020 by Rodolfo Park DO at OR [facility] Right: Hip KANDICE : ORTHOPAEDICS 11/07/2025 3800-9528 / / [id number] documented as of this encounter Visit Diagnoses Diagnosis Hospital discharge follow-up- Primary Other follow-up examination COPD, group C, by GOLD 2017 classification (HCC) Pulmonary hypertension due to left heart disease (HCC) Other chronic pulmonary heart diseases Dependence on supplemental oxygen Chest pain, unspecified type Degeneration of intervertebral disc of lumbar region, unspecified whether pain present Major depressive disorder, recurrent, moderate (HCC) Major depressive disorder, recurrent episode, moderate Prolonged QT interval Nonspecific abnormal electrocardiogram (ECG) (EKG) Elevated hemoglobin (HCC) Other hemoglobinopathies Hypokalemia Hypopotassemia Cyst of kidney, acquired Acquired cyst of kidney Restless legs syndrome (RLS) Gastroesophageal reflux disease without esophagitis Esophageal reflux Opioid dependence in remission (HCC) Opioid type dependence, in remission documented in this encounter Advance Directives * [...] the patient have Health Care Power of Dry Wall Nailer? Yes, not currently available Care Teams Investment Accountant Relationship Specialty Start Date End Date Roseann Plummer MD [address] [place] [address] PCP - General Internal Medicine 11/05/22 documented as of this encounter"
--- OUTSIDE RECORDS SUMMARY | 2024-11-11 08:38 | External Medical Summary | Summary of Care ---
Author Name Unknown Organization [facility] Address [address] [place] [address] Phone [phone] Care Team Providers Care Mechanical Cad Designer Name Role Phone Roseann Plummer MD Primary Care Provider Reason for Visit * Reason Onset Date Comments Advice 09/07/2024 Encounter Details Date Type Department Care Team ([facility] st Contact Info) Description 09/07/2024 Telephone Access Center, [place] [address] [facility] *DO NOT REMOVE THIS DEPARTMENT* [place] [address] Services, Scheduling [address] [place] [address] Advice Allergies Active Allergy Reactions Criticality Noted Date Comments Buspirone Rash 11/01/2022 documented as of this encounter (statuses as of 09/13/2024) Medications methADONE 10 MG Tablet Take 1 [...] as of this encounter (statuses as of 09/13/2024) Active Problems Problem Noted Date Diagnosed Date [...] as of this encounter (statuses as of 09/13/2024) Resolved Problems Problem Noted Date Diagnosed Date Resolved Date Chronic kidney disease, stage 3a 10/08/2022 03/01/2023 Overview: Per CKD protocol Substance abuse 05/25/2022 03/01/2023 Thrombocytopenia 05/25/2022 09/06/2023 Food insecurity 05/07/2022 05/14/2024 Overview: Per [facility] Protocol Food insecurity 03/06/2021 01/11/2022 Overview: Per [facility] Protocol documented as of this encounter (statuses as of 09/13/2024) Immunizations Name Administration Dates Next Due Pneumococcal [...] Telephone Encounter - Huan Branham MD - 09/13/2024 7:29 PM EST Team, Plcha assist with Post HD Office visit scheduling. THX Dr Branham * Telephone Encounter - Roseann Plummer MD - 09/11/2024 2:46 PM EST Patient needs HD f/u with Pulmonary - was just inpatient for acute respiratory failure, COPD exacerbation. Please help patient schedule. * Telephone Encounter - Urvashi Mendoza OSA - 09/07/2024 9:28 AM EST [place] Michelle called in and tried to schedule a HD for the patient and there is nothing to schedule, please advise. Thank you. documented in this encounter Plan of Treatment Upcoming Encounters Date Type Department Care Team (Late st Contact Info) Description 12/04/2024 8:00 AM EDT Office Visit Family Practice [facility] [address] [place] [address] Roseann Plummer MD [address] [place] [address] 07/07/2025 9:00 AM EST Office Visit Gynecology/Obstetrics [facility] [address] [place] [address] Anahi Anthony CRNP [address] [place] [address] Health Maintenance Due Date Last Done Comments [...] this encounter Medical Devices Implanted Type Area Distillery Miller Device Identifier Shelf Expiration Date Model / Serial / Lot Shell Acet Trident Ii 50mm - [id number] Implanted:Qty: 1 on 12/05/2020 by Rodolfo Park DO at OR [facility] Right: Hip KANDICE : ORTHOPAEDICS 09/04/2024 702-04-50D / / [id number] Trident Acetabular X3 0 36 D - [id number] Implanted:Qty: 1 on 12/05/2020 by Rodolfo Park DO at OR [facility] Right: Hip KANDICE : ORTHOPAEDICS 09/14/2025 723-00-36D / / [id number] Hip Hd Perry Hummel 36/ 25 - [id number] Implanted:Qty: 1 on 12/05/2020 by Rodolfo Park, DO at OR [facility] Right: Hip KANDICE : ORTHOPAEDICS 10/03/2025 6570-0-436 / / [id number] Accolade Ii 127 Deg Sz 4 - [id number] Implanted:Qty: 1 on 12/05/2020 by Rodolfo Park, DO at OR [facility] Right: Hip KANDICE : ORTHOPAEDICS 11/07/2025 3639-3155 / / [id number] documented as of this encounter Advance Directives [...] the patient have Health Care Power of Mail Agent? Yes, not currently available Care Teams Mechanical Cad Designer Relationship Specialty Start Date End Date Roseann Plummer MD 132 [facility] [place] [address] PCP - General Internal Medicine 11/05/22 documented as of this encounter
--- OUTSIDE RECORDS SUMMARY | 2024-11-11 08:38 | External Medical Summary | Summary of Care ---
Author Name Unknown Organization [facility] Address [address] [place] [address] Phone [phone] Care Team Providers Care Machinist Class B Name Role Phone Roseann Plummer MD Primary Care Provider Reason for Visit * Reason Onset Date Comments Advice 09/07/2024 Encounter Details Date Type Department Care Team ([facility] st Contact Info) Description 09/07/2024 Telephone Access Center, [place] [address] [facility] *DO NOT REMOVE THIS DEPARTMENT* [place] [address] Services, Scheduling [address] [place] [address] Advice Allergies Active Allergy Reactions Criticality Noted [...] 8:00 AM EDT Office Visit Family Practice [facility] [address] [place] [address] Roseann Plummer MD [address] [place] [address] 07/07/2025 9:00 AM EST Office Visit Gynecology/Obstetrics [facility] [address] [place] [address] Anahi Anthony CRNP [address] [place] [address] Health Maintenance Due Date Last Done Comments [...] this encounter Medical Devices Implanted Type Area Tipple Operator Device Identifier Shelf Expiration Date Model / Serial / Lot Shell Acet Trident Ii 50mm - [id number] Implanted:Qty: 1 on 12/05/2020 by Rodolfo Park DO at OR [facility] Right: Hip KANDICE : ORTHOPAEDICS 09/04/2024 702-04-50D / / [id number] Trident Acetabular X3 0 36 D - [id number] Implanted:Qty: 1 on 12/05/2020 by Rodolfo Park DO at OR [facility] Right: Hip KANDICE : ORTHOPAEDICS 09/14/2025 723-00-36D / / [id number] Hip Hd Nk Gavin Hummel 36/ 25 - [id number] Implanted:Qty: 1 on 12/05/2020 by Rodolfo Park DO at OR [facility] Right: Hip KANDICE : ORTHOPAEDICS 10/03/2025 6570-0-436 / / [id number] Accolade Ii 127 Deg Sz 4 - [id number] Implanted:Qty: 1 on 12/05/2020 by Rodolfo Park DO at OR [facility] Right: Hip KANDICE : ORTHOPAEDICS 11/07/2025 [id number] / / [id number] documented as of this encounter Advance Directives [...] the patient have Health Care Power of Women Specialist? Yes, not currently available Care Teams Machinist Class B Relationship Specialty Start Date End Date Roseann Plummer MD [address] [place] [phone] PCP - General Internal Medicine 11/05/22 documented as of this encounter
--- OUTSIDE RECORDS SUMMARY | 2024-11-11 08:38 | External Medical Summary | Summary of Care ---
Author Name Unknown Organization [facility] Address [address] [place] [address] Phone [phone] Care Team Providers Care Occupational Therapy Teacher Name Role Phone Roseann Plummer MD Primary Care Provider Reason for Visit * Reason Onset Date Comments Advice 09/07/2024 Encounter Details Date Type Department Care Team ([facility] st Contact Info) Description 09/07/2024 Telephone Access Center, [place] [address] [facility] *DO NOT REMOVE THIS DEPARTMENT* [place] [address] Services, Scheduling [address] [place] [address] Advice Allergies Active Allergy Reactions Criticality Noted Date Comments Buspirone Rash 11/01/2022 documented as of this encounter (statuses as of 09/14/2024) Medications methADONE 10 MG Tablet Take 1 [...] as of this encounter (statuses as of 09/14/2024) Active Problems Problem Noted Date Diagnosed Date [...] as of this encounter (statuses as of 09/14/2024) Resolved Problems Problem Noted Date Diagnosed Date Resolved Date Chronic kidney disease, stage 3a 10/08/2022 03/01/2023 Overview: Per CKD protocol Substance abuse 05/25/2022 03/01/2023 Thrombocytopenia 05/25/2022 09/06/2023 Food insecurity 05/07/2022 05/14/2024 Overview: Per [facility] Protocol Food insecurity 03/06/2021 01/11/2022 Overview: Per [facility] Protocol documented as of this encounter (statuses as of 09/14/2024) Immunizations Name Administration Dates Next Due Pneumococcal [...] 8:00 AM EDT Office Visit Family Practice [facility] [address] [address] Roseann Plummer MD [address] [place] [address] 07/07/2025 9:00 AM EST Office Visit Gynecology/Obstetrics [facility] [address] [place] [place] [address] Anahi Anthony CRNP [address] [place] [address] Health Maintenance Due Date Last Done Comments [...] this encounter Medical Devices Implanted Type Area Harness Brusher Device Identifier Shelf Expiration Date Model / Serial / Lot Shell Acet Trident Ii 50mm - [id number] Implanted:Qty: 1 on 12/05/2020 by Rodolfo [facility] KANDICE : ORTHOPAEDICS 09/04/2024 702-04-50D / / [id number] Trident Acetabular X3 0 36 D - [id number] Implanted:Qty: 1 on 12/05/2020 by Rodolfo Park [facility] Right: Hip KANDICE : ORTHOPAEDICS 09/14/2025 723-00-36D / / [id number] Hip Hd Perry Hummel 36/ 25 - [id number] Implanted:Qty: 1 on 12/05/2020 by Rodolfo Park, [facility] Right: Hip KANDICE : ORTHOPAEDICS 10/03/2025 6570-0-436 / / [id number] Accolade Ii 127 Deg Sz 4 - [id number] Implanted:Qty: 1 on 12/05/2020 by Rodolfo Park, [facility] Right: Hip KANDICE : ORTHOPAEDICS 11/07/2025 [id number] / / [id number] documented as of this encounter Advance Directives [...] the patient have Health Care Power of Freelance Patternmaker? Yes, not currently available Care Teams Occupational Therapy Teacher Relationship Specialty Start Date End Date Roseann Plummer MD [address] [facility] [place] [address] PCP - General Internal Medicine 11/05/22 documented as of this encounter
--- OUTSIDE RECORDS SUMMARY | 2024-11-11 08:38 | External Medical Summary | Summary of Care ---
Author Name Unknown Organization [facility] Address [address] [place] [address] Phone [phone] Care Team Providers Care Director Furniture Name Role Phone Roseann Plummer MD Primary Care Provider Reason for Visit * Reason Onset Date Comments Advice 09/07/2024 Encounter Details Date Type Department Care Team ([facility] st Contact Info) Description 09/07/2024 Telephone Access Center, [place] [address] [facility] *DO NOT REMOVE THIS DEPARTMENT* [place] [address] Services, Scheduling [address] [place] [address] Advice Allergies Active Allergy Reactions Criticality Noted Date Comments Buspirone Rash 11/01/2022 documented as of this encounter (statuses as of 09/15/2024) Medications methADONE 10 MG Tablet Take 1 [...] as of this encounter (statuses as of 09/15/2024) Active Problems Problem Noted Date Diagnosed Date [...] as of this encounter (statuses as of 09/15/2024) Resolved Problems Problem Noted Date Diagnosed Date Resolved Date Chronic kidney disease, stage 3a 10/08/2022 03/01/2023 Overview: Per CKD protocol Substance abuse 05/25/2022 03/01/2023 Thrombocytopenia 05/25/2022 09/06/2023 Food insecurity 05/07/2022 05/14/2024 Overview: Per [facility] Protocol Food insecurity 03/06/2021 01/11/2022 Overview: Per [facility] Protocol documented as of this encounter (statuses as of 09/15/2024) Immunizations Name Administration Dates Next Due Pneumococcal [...] 11:30 AM EST Office Visit Pulmonary Medicine, [facility] [address] [place] [address] Huan Branham MD [address] [facility] [place] [address] 12/04/2024 8:00 AM EDT Office Visit Family Practice [facility] [address] [place] [address] Roseann Plummer MD [address] [place] [address] 07/07/2025 9:00 AM EST Office Visit Gynecology/Obstetrics [facility] [address] [address] Anahi Anthony CRNP [address] [place] [address] Health Maintenance Due Date Last Done Comments [...] this encounter Medical Devices Implanted Type Area Interventional Radiology Technologist Device Identifier Shelf Expiration Date Model / Serial / Lot Shell Acet Trident Ii 50mm - [id number] Implanted:Qty: 1 on 12/05/2020 by Rodolfo Park, DO at OR [facility] Right: Hip KANDICE : ORTHOPAEDICS 09/04/2024 702-04-50D / / [id number] Trident Acetabular X3 0 36 D - [id number] Implanted:Qty: 1 on 12/05/2020 by Rodolfo Park DO at OR [facility] Right: Hip KANDICE : ORTHOPAEDICS 09/14/2025 723-00-36D / / [id number] Hip Hd Perry Hummel 36/ 25 - [id number] Implanted:Qty: 1 on 12/05/2020 by Rodolfo Park DO at OR [facility] Right: Hip KANDICE : ORTHOPAEDICS 10/03/2025 6570-0-436 / / [id number] Accolade Ii 127 Deg Sz 4 - [id number] Implanted:Qty: 1 on 12/05/2020 by Rodolfo Park DO at OR [facility] Right: Hip KANDICE : ORTHOPAEDICS 11/07/2025 [id number] / / [id number] documented as of this encounter Advance Directives [...] the patient have Health Care Power of Central Office Inspector? Yes, not currently available Care Teams Director Furniture Relationship Specialty Start Date End Date Roseann Plummer MD [address] [place] [address] PCP - General Internal Medicine 11/05/22 documented as of this encounter
--- OUTSIDE RECORDS SUMMARY | 2024-11-11 08:39 | External Medical Summary | Summary of Care ---
Author Name Unknown Organization [facility] Address [address] [place] [address] Phone [phone] Care Team Providers Care Ruling Machine Operator Name Role Phone Roseann Plummer MD Primary Care Provider Reason for Visit * Reason Onset Date Comments Advice 09/07/2024 Encounter Details Date Type Department Care Team ([facility] st Contact Info) Description 09/07/2024 Telephone Access Center, [place] [address] [facility] *DO NOT REMOVE THIS DEPARTMENT* [place] [address] Services, Scheduling [address] [place] [address] Advice Allergies Active Allergy Reactions Criticality Noted Date Comments Buspirone Rash 11/01/2022 documented as of this encounter (statuses as of 09/07/2024) Medications methADONE 10 MG Tablet Take 1 [...] as of this encounter (statuses as of 09/07/2024) Active Problems Problem Noted Date Diagnosed Date [...] as of this encounter (statuses as of 09/07/2024) Resolved Problems Problem Noted Date Diagnosed Date Resolved Date Chronic kidney disease, stage 3a 10/08/2022 03/01/2023 Overview: Per CKD protocol Substance abuse 05/25/2022 03/01/2023 Thrombocytopenia 05/25/2022 09/06/2023 Food insecurity 05/07/2022 05/14/2024 Overview: Per [facility] Protocol Food insecurity 03/06/2021 01/11/2022 Overview: Per [facility] Protocol documented as of this encounter (statuses as of 09/07/2024) Immunizations Name Administration Dates Next Due Pneumococcal [...] encounter Miscellaneous Notes * Telephone Encounter - Urvashi Mendoza OSA - 09/07/2024 9:28 AM EST Davis Martinez called in and tried to schedule a HD for the patient and there is nothing to schedule, please advise. Thank you. documented in this encounter Plan of Treatment Upcoming Encounters Date Type Department Care Team (Late st Contact Info) Description 09/11/2024 2:00 PM EST Office Visit [facility] [address] [place] [address] Roseann Plummer MD [address] [place] [address] 12/04/2024 8:00 AM EDT Office Visit Family Practice [facility] [address] [place] [address] Roseann Plummer MD [address] [place] [address] 07/07/2025 9:00 AM EST Office Visit Gynecology/Obstetrics [facility] [address] [place] [address] Anahi Anthony CRNP [address] [place] [address] Health Maintenance Due Date Last Done Comments [...] this encounter Medical Devices Implanted Type Area Crepe Sole Wire Brusher Device Identifier Shelf Expiration Date Model / Serial / Lot Shell Acet Trident Ii 50mm - [id number] Implanted:Qty: 1 on 12/05/2020 by Rodolfo Park DO at OR [facility] Right: Hip KANDICE : ORTHOPAEDICS 09/04/2024 702-04-50D / / [id number] Trident Acetabular X3 0 36 D - [id number] Implanted:Qty: 1 on 12/05/2020 by Rodolfo Park DO at OR [facility] Right: Hip KANDICE : ORTHOPAEDICS 09/14/2025 723-00-36D / / [id number] Hip Hd Perry Hummel 36/ 25 - [id number] Implanted:Qty: 1 on 12/05/2020 by Rodolfo Park DO at OR [facility] Right: Hip KANDICE : ORTHOPAEDICS 10/03/2025 6570-0-436 / / [id number] Accolade Ii 127 Deg Sz 4 - [id number] Implanted:Qty: 1 on 12/05/2020 by Rodolfo Park DO at OR [facility] Right: Hip KANDICE : ORTHOPAEDICS 11/07/2025 9716-6413 / / [id number] documented as of this encounter Advance Directives [...] the patient have Health Care Power of Billiard Table Mechanic? Yes, not currently available Care Teams Ruling Machine Operator Relationship Specialty Start Date End Date Roseann Plummer MD [address] [place] [address] PCP - General Internal Medicine 11/05/22 documented as of this encounter
--- OUTSIDE RECORDS SUMMARY | 2024-11-11 08:39 | External Medical Summary | Summary of Care ---
Author Name Unknown Organization [facility] Address [address] [place] [address] Phone [phone] Care Team Providers Care Evp Head Of [employer] Experience Strategy Name Role Phone Roseann Plummer MD Primary Care Provider Encounter Details Date Type Department Care Team (Late st Contact Info) Description 09/02/2024 Population Health External Data Unspecified Department Allergies Active Allergy Reactions Criticality Noted Date Comments Buspirone Rash 11/01/2022 documented as of this encounter (statuses as of 09/02/2024) Medications methADONE 10 MG Tablet Take 1 [...] as of this encounter (statuses as of 09/02/2024) Active Problems Problem Noted Date Diagnosed Date [...] as of this encounter (statuses as of 09/02/2024) Resolved Problems Problem Noted Date Diagnosed Date Resolved Date Chronic kidney disease, stage 3a 10/08/2022 03/01/2023 Overview: Per CKD protocol Substance abuse 05/25/2022 03/01/2023 Thrombocytopenia 05/25/2022 09/06/2023 Food insecurity 05/07/2022 05/14/2024 Overview: Per [facility] Protocol Food insecurity 03/06/2021 01/11/2022 Overview: Per [facility] Protocol documented as of this encounter (statuses as of 09/02/2024) Immunizations Name Administration Dates Next Due Pneumococcal [...] 8:00 AM EDT Office Visit Family Practice [facility] [address] [place] [address] Roseann Plummer MD [address] [place] [address] 07/07/2025 9:00 AM EST Office Visit Gynecology/Obstetrics [facility] [address] [place] [address] Anahi Anthony CRNP [address] [place] [address] Health Maintenance Due Date Last Done Comments [...] this encounter Medical Devices Implanted Type Area Economic Development Manager Device Identifier Shelf Expiration Date Model / Serial / Lot Shell Acet Trident Ii 50mm - [id number] Implanted:Qty: 1 on 12/05/2020 by Rodolfo Park DO at OR [facility] Right: Hip KANDICE : ORTHOPAEDICS 09/04/2024 702-04-50D / / [id number] Trident Acetabular X3 0 36 D - [id number] Implanted:Qty: 1 on 12/05/2020 by Rodolfo Park DO at OR [facility] Right: Hip KANDICE : ORTHOPAEDICS 09/14/2025 723-00-36D / / [id number] Hip Hd Perry Hummel 36/ 25 - [id number] Implanted:Qty: 1 on 12/05/2020 by Rodolfo Park DO at OR [facility] Right: Hip KANDICE : ORTHOPAEDICS 10/03/2025 6570-0-436 / / [id number] Accolade Ii 127 Deg Sz 4 - [id number] Implanted:Qty: 1 on 12/05/2020 by Rodolfo Park, DO at OR [facility] Right: Hip KANDICE : ORTHOPAEDICS 11/07/2025 5237-5596 / / [id number] documented as of this encounter Advance Directives [...] the patient have Health Care Power of Internal Communications Manager? Yes, not currently available Care Teams Evp Head Of [employer] Experience Strategy Relationship Specialty Start Date End Date Roseann Plummer MD [address] [place] [address] PCP - General Internal Medicine 11/05/22 documented as of this encounter
[2024-11-11] MEDS: NICOTINE 14 MG/24 HR PATCH TD SCH (08:56)
[2024-11-11] MEDS: UMECLIDINIUM/VILANTEROL 62.5/25MCG 7 PUFFS/INHALER INH SCH (08:56)
[2024-11-11] MEDS: METHADONE ORAL SOLN 2 MG/ML PO SCH (08:56)
[2024-11-11] MEDS: PANTOprazole 40 MG TAB PO SCH (08:57)
[2024-11-11] MEDS: FUROSEMIDE 40 MG TAB PO SCH (08:57)
[2024-11-11] MEDS: APIXABAN 5 MG TABLET PO SCH (08:57)
[2024-11-11] MEDS: amLODIPine BESYLATE 5 MG TAB PO SCH (08:57)
[2024-11-11] MEDS: FOLIC ACID 1 MG TAB PO SCH (08:57)
[2024-11-11] MEDS: THIAMINE HCL 100 MG TAB PO SCH (08:57)
[2024-11-11] MEDS: METOPROLOL SUCC 25MG EXT REL TAB PO SCH (08:57)
[2024-11-11] MEDS: CEROVITE ADV FORMULA TAB PO SCH (08:57)
[2024-11-11] MEDS: methylPREDNISolone 40 MG in SYRINGE 0 ML IV SCH (08:57)
[2024-11-11] MEDS ORDERED: methylPREDNISolone 125 MG/2 ML VIAL IV SCH (09:00)
[2024-11-11] MEDS ORDERED: FOLIC ACID 1 MG TAB PO SCH (09:00)
[2024-11-11] MEDS: POTASSIUM CHLORIDE CRTAB 20 MEQ TABCR PO SCH (09:02)
[2024-11-11] MEDS: GABAPENTIN 600 MG TAB PO SCH ×2 (09:11→23:54)
[2024-11-11 09:16] LABS: Hemoglobin 11.8 g/dl (12.0-16.0); Mean Corpuscular Hemoglobin 30.3 pg (25.0-34.0); Mean Corpuscular Hgb Conc 32.8 g/dL (32.0-36.0); Mean Corpuscular Volume 92.5 fL (80.0-100.0); Platelet Count 173 K/uL (130-400); RDW Coefficient of Variation 13.4 % (11.5-14.5); RDW Standard Deviation 44.8 fL (36.4-46.3); Red Blood Count 3.89 M/uL (4.20-5.40); White Blood Count 12.41 K/ul (4.8-10.8)
[2024-11-11 09:46] LABS: Anion Gap 7 (3-11); Blood Urea Nitrogen 15 mg/dl (6-23); Calcium 9.1 mg/dl (8.6-10.3); Carbon Dioxide 34 mmol/L (21-32); Chloride 95 mmol/L (98-107); Creatinine Clr Calc Pharmacy 72.1 ml/min; Glucose 184 mg/dl (70-99(Fasting)); Magnesium 1.9 mg/dl (1.7-2.4); Sodium 136 mmol/L (136-145)
[2024-11-11 09:54] LABS: Basophils # (auto) 0.03 K/uL (0.00-0.20); Basophils % (auto) 0.2 %; Immature Granulocytes # (auto) 0.18 K/uL (0.01-0.20); Immature Granulocytes % (auto) 1.5 %; Lymphocytes # (auto) 0.54 K/uL (1.20-3.40); Lymphocytes % (auto) 4.4 %; Monocytes # (auto) 0.14 K/uL (0.11-0.59); Monocytes % (auto) 1.1 %; Neutrophils # (auto) 11.52 K/uL (1.40-6.50); Neutrophils % (auto) 92.8 %; Polychromasia 1+; Tear Drop Cells 1+
--- NOTE | 2024-11-11 16:53 | Hospitalist Progress Note ---
Date of Service November 11, 2024 Assessment & Plan (1) COPD exacerbation: Plan: 59-year-old female with past medical history significant for hypokalemia, COPD, on home oxygen 4 L, history of pulmonary emboli, hypertension, GERD, history of KARLA, lumbar degenerative disease, osteoarthritis, restless leg syndrome, history of anemia, methadone maintenance therapy, substance abuse in remission, ongoing tobacco abuse, depression, ongoing alcoholism comes in because of shortness of breath and cough. Last couple of days getting more short of breath and cough with phlegm. Denies fevers. Had lower rib cage pain earlier but that resolved now. Attributes the rib cage pain to the cough. No headache. No runny nose or sore throat. No nausea. No abdominal pain. Normal bowel and bladder movements. Hemodynamics are okay. Says she is currently smoking 2 to 3 c igarettes daily. And drinks alcohol 3 mixed drinks daily. Patient was admitted in August 2024 with acute on chronic hypoxic respiratory failure, COPD exacerbation, influenza A infection and at the time CT chest noted early pneumonia recommended follow-up CT chest in 3 to 6 months. Acute COPD exacerbation Chronic oxygen dependency: On 4 L at baseline Ongoing tobacco abuse --Chest x-ray: No acute process --COVID, influenza A and B, RSV negative -- Procalcitonin 0.08 Started on IV Solu-Medrol Continue nebs Continue home inhalers Titrate oxygen to keep saturations 88 to 92% Alcoholism/withdrawal Drinks 3 mixed drinks daily Alcohol withdrawal protocol with gabapentin and IV Ativan as needed Continue thiamine, folic acid monitor Chest pain Rib cage pain most from cough EKG and troponin negative resolved History of pulmonary emboli On Eliquis Hypertension Continue amlodipine, metoprolol succinate and Lasix monitor History of substance abuse in remission On methadone maintenance therapy GERD continue Protonix DVT prophylaxis On Eliquis Code Status Full code Admission and Anticipated Discharge Date Admission Date: November 11, 2024 Subjective Patient is seen and examined at bedside States feeling better today Still has some tremor due to alcohol withdrawal Denies any chest pain Cough, dyspnea improving No other complaints today Review of Systems Review of Systems: All systems reviewed & are unremarkable except as noted in Subjective Physical Exam Physical Exam: Physical Exam: Vitals signs as noted above General Appearance:Obese, no apparent distress Head: normocephalic, Atraumatic Eyes: normal inspection, EOMI Neck: supple, Trachea midline Respiratory/Chest: Decreased breath sounds, CTA, No accessory muscle use Cardiovascular: S1, S2, No murmur Abdomen/GI:Soft, Non tender, Bowel sounds present Extremities/Musculoskeletal:normal inspection, 1+ edema Neurologic/Psych:AAOX3, grossly no focal neurological deficits ,+tremor Skin: normal color, warm Results & Data Results & Data Vital Signs (Past 12 Hours) Vital Signs Temp Pulse Pulse Resp BP Pulse Ox O2 Del Method 11/11/24 15:17 80 11/11/24 14:45 73 22 133/83 92 Nasal Cannula 11/11/24 11:51 74 16 109/64 93 Nasal Cannula 11/11/24 10:31 71 17 96 Nasal Cannula 11/11/24 08:00 Nasal Cannula 11/11/24 08:00 36.6 C 86 16 148/88 H 96 Nasal Cannula 11/11/24 07:05 73 11/11/24 06:53 73 18 95 Nasal Cannula 11/11/24 06:46 72 20 115/56 L 94 Nasal Cannula O2 Flow Rate 11/11/24 15:17 11/11/24 14:45 4 11/11/24 11:51 4 11/11/24 10:31 4 11/11/24 08:00 4 11/11/24 08:00 4 11/11/24 07:05 11/11/24 06:53 4 11/11/24 06:46 4 Laboratory Results Short CBC 11/10/24 11/11/24 Range/Units 20:32 08:58 WBC 12.53 H 12.41 H (4.8-10.8) K/ul Hgb 11.7 L 11.8 L (12.0-16.0) g/dl Hct 36.5 L 36.0 L (37.0-47.0) % Plt Count 187 173 (130-400) K/uL BMP 11/10/24 11/11/24 11/11/24 20:32 08:58 10:02 Sodium 137 136 Potassium 4.0 TNP 4.6 Chloride 95 L 95 L Carbon Dioxide 37 H 34 H BUN 9 15 Creatinine 0.93 1.07 Glucose 92 184 H Calcium 9.1 9.1 Liver Function 11/10/24 Range/Units 20:32 Total Bilirubin 0.2 (0.2-1.0) mg/dl AST 42 H (13-39) U/L ALT 50 (7-52) U/L Alkaline Phosphatase 107 H (34-104) U/L Albumin 3.8 (3.4-5.0) gm/dl
[2024-11-11] MEDS: MAGNESIUM OXIDE 400 MG TAB PO SCH (21:32)
[2024-11-12] MEDS: PROMETHAZINE 12.5 MG/50.5 ML BAG IV PRN (03:12)
[2024-11-12] MEDS: hydrOXYzine HCl 25 MG TAB PO PRN (03:16)
[2024-11-12] MEDS: LORazepam 2 MG/1 ML VIAL IV PRN (06:30)
[2024-11-12] MEDS: PANTOprazole 40 MG TAB PO STA (06:45)
[2024-11-12] MEDS: methylPREDNISolone 40 MG in SYRINGE 0 ML IV SCH (09:04)
[2024-11-12] MEDS: METHADONE PO SCH (09:13)
[2024-11-12] MEDS: ACETAMINOPHEN 325 MG TAB PO PRN (09:14)
[2024-11-12 10:12] LABS: Anion Gap 9 (3-11); Carbon Dioxide 25 mmol/L (21-32); Chloride 98 mmol/L (98-107); Magnesium 2.3 mg/dl (1.7-2.4); Sodium 132 mmol/L (136-145)
[2024-11-12] MEDS ORDERED: POLYETHYLENE (MIRALAX) 17 GM PACK PO PRN (10:20)
[2024-11-12 10:21] LABS: Blood Urea Nitrogen 31 mg/dl (6-23); Creatinine Clr Calc Pharmacy 62.3 ml/min; Glucose 162 mg/dl (70-99(Fasting))
[2024-11-12] MEDS: DOCUSATE SODIUM 100 MG CAP PO SCH (13:02)
[2024-11-12] MEDS ORDERED: chlordiazePOXIDE ALCOHOL WITHDRAWL 50MG PO STA (15:45)
--- NOTE | 2024-11-12 16:15 | Hospitalist Progress Note ---
Date of Service November 12, 2024 Assessment & Plan (1) COPD exacerbation: Plan: 59-year-old female with past medical history significant for hypokalemia, COPD, on home oxygen 4 L, history of pulmonary emboli, hypertension, GERD, history of KARLA, lumbar degenerative disease, osteoarthritis, restless leg syndrome, history of anemia, methadone maintenance therapy, substance abuse in remission, ongoing tobacco abuse, depression, ongoing alcoholism comes in because of shortness of breath and cough. Last couple of days getting more short of breath and cough with phlegm. Denies fevers. Had lower rib cage pain earlier but that resolved now. Attributes the rib cage pain to the cough. No headache. No runny nose or sore throat. No nausea. No abdominal pain. Normal bowel and bladder movements. Hemodynamics are okay. Says she is currently smoking 2 to 3 c igarettes daily. And drinks alcohol 3 mixed drinks daily. Patient was admitted in August 2024 with acute on chronic hypoxic respiratory failure, COPD exacerbation, influenza A infection and at the time CT chest noted early pneumonia recommended follow-up CT chest in 3 to 6 months. Acute COPD exacerbation Chronic oxygen dependency: On 4 L at baseline Ongoing tobacco abuse --Chest x-ray: No acute process --COVID, influenza A and B, RSV negative -- Procalcitonin 0.08 Continue IV Solu-Medrol>>transition to Prednisone tomorrow Continue nebs Continue home inhalers Titrate oxygen to keep saturations 88 to 92% Clinically improved Alcoholism/withdrawal Drinks 3 mixed drinks daily Continue thiamine, folic acid Changed gabapentin to Librium protocol Continue thiamine, folic acid monitor for withdrawal Chest pain Rib cage pain most from cough EKG and troponin negative resolved History of pulmonary emboli On Eliquis Hypertension Continue amlodipine, metoprolol succinate and Lasix monitor History of substance abuse in remission On methadone maintenance therapy GERD continue Protonix DVT prophylaxis On Eliquis Code Status Full code Admission and Anticipated Discharge Date Admission Date: November 11, 2024 Subjective Patient is seen and examined at bedside Reports nausea, tremors, anxious which she attributes to withdrawal Cough, dyspnea improved No other complaints today Review of Systems Review of Systems: All systems reviewed & are unremarkable except as noted in Subjective Physical Exam Physical Exam: Physical Exam: Vitals signs as noted above General Appearance:Obese, no apparent distress Head: normocephalic, Atraumatic Eyes: normal inspection, EOMI Neck: supple, Trachea midline Respiratory/Chest: Decreased breath sounds, CTA, No accessory muscle use Cardiovascular: S1, S2, No murmur Abdomen/GI:Soft, Non tender, Bowel sounds present Extremities/Musculoskeletal:normal inspection, 1+ edema Neurologic/Psych:AAOX3, grossly no focal neurological deficits ,+tremor Skin: normal color, warm Results & Data Results & Data Vital Signs (Past 12 Hours) Vital Signs Temp Pulse Pulse Resp BP Pulse Ox O2 Del Method 11/12/24 15:59 37.0 C 83 22 122/71 94 Nasal Cannula 11/12/24 15:43 89 18 94 Nasal Cannula 11/12/24 12:01 Nasal Cannula 11/12/24 11:29 36.8 C 75 18 117/67 95 Nasal Cannula 11/12/24 11:22 20 95 Nasal Cannula 11/12/24 08:00 67 11/12/24 07:34 36.8 C 72 20 112/69 97 Nasal Cannula 11/12/24 07:21 78 18 97 Nasal Cannula 11/12/24 06:24 36.7 C 76 18 114/67 91 Nasal Cannula O2 Flow Rate 11/12/24 15:59 4 11/12/24 15:43 4 11/12/24 12:01 4 11/12/24 11:29 4 11/12/24 11:22 4 11/12/24 08:00 11/12/24 07:34 4 11/12/24 07:21 4 11/12/24 06:24 4 Laboratory Results BMP 11/12/24 11/12/24 09:16 10:29 Sodium 132 L Potassium TNP 4.9 Chloride 98 Carbon Dioxide 25 BUN 31 H Creatinine 1.24 H Glucose 162 H Calcium 9.0
[2024-11-12] MEDS: chlordiazePOXIDE HCl 25 MG CAP PO SCH (17:46)
[2024-11-13] MEDS ORDERED: GABAPENTIN 600 MG TAB PO SCH (06:00)
[2024-11-13] MEDS: chlordiazePOXIDE HCl 25 MG CAP PO SCH (08:27)
[2024-11-13] MEDS: PANTOprazole 40 MG TAB PO SCH (08:29)
[2024-11-13] MEDS: predniSONE 20 MG TAB PO SCH (08:30)
[2024-11-13 12:42] LABS: Calcium 8.8 mg/dl (8.6-10.3); Creatinine Clr Calc Pharmacy 67.2 ml/min; Potassium 4.5 mmol/L (3.5-5.1)
[2024-11-13 13:11] LABS: Hemoglobin 10.7 g/dl (12.0-16.0); Mean Corpuscular Hemoglobin 30.7 pg (25.0-34.0); Mean Corpuscular Hgb Conc 31.5 g/dL (32.0-36.0); Mean Corpuscular Volume 97.7 fL (80.0-100.0); Platelet Count 198 K/uL (130-400); RDW Coefficient of Variation 14.1 % (11.5-14.5); RDW Standard Deviation 50.8 fL (36.4-46.3); Red Blood Count 3.48 M/uL (4.20-5.40); White Blood Count 12.01 K/ul (4.8-10.8)
[2024-11-13 15:15] VITALS: O2SAT 92
[2024-11-13 15:22] VITALS: TEMP 97.7
--- NOTE | 2024-11-13 17:05 | Hospitalist Progress Note ---
Date of Service November 13, 2024 Assessment & Plan (1) COPD exacerbation: Plan: 59-year-old female with past medical history significant for hypokalemia, COPD, on home oxygen 4 L, history of pulmonary emboli, hypertension, GERD, history of KARLA, lumbar degenerative disease, osteoarthritis, restless leg syndrome, history of anemia, methadone maintenance therapy, substance abuse in remission, ongoing tobacco abuse, depression, ongoing alcoholism comes in because of shortness of breath and cough. Last couple of days getting more short of breath and cough with phlegm. Denies fevers. Had lower rib cage pain earlier but that resolved now. Attributes the rib cage pain to the cough. No headache. No runny nose or sore throat. No nausea. No abdominal pain. Normal bowel and bladder movements. Hemodynamics are okay. Says she is currently smoking 2 to 3 c igarettes daily. And drinks alcohol 3 mixed drinks daily. Patient was admitted in August 2024 with acute on chronic hypoxic respiratory failure, COPD exacerbation, influenza A infection and at the time CT chest noted early pneumonia recommended follow-up CT chest in 3 to 6 months. Acute COPD exacerbation Chronic oxygen dependency: On 4 L at baseline Ongoing tobacco abuse --Chest x-ray: No acute process --COVID, influenza A and B, RSV negative -- Procalcitonin 0.08 Continue IV Solu-Medrol>>transition to Prednisone Continue nebs Continue home inhalers Titrate oxygen to keep saturations 88 to 92% Continue current management Alcoholism/withdrawal Drinks 3 mixed drinks daily Continue thiamine, folic acid Changed gabapentin to Librium protocol Continue thiamine, folic acid monitor for withdrawal Slowly improving Chest pain Rib cage pain most from cough EKG and troponin negative resolved History of pulmonary emboli On Eliquis Hypertension Continue amlodipine, metoprolol succinate and Lasix Blood pressure stable monitor History of substance abuse in remission On methadone maintenance therapy GERD continue Protonix DVT prophylaxis On Eliquis Code Status Full code Admission and Anticipated Discharge Date Admission Date: November 11, 2024 Subjective Patient is seen and examined at bedside No new complaints Withdrawal symptoms slightly better controlled Denies any chest pain, dyspnea, abdominal pain Less anxious today Review of Systems Review of Systems: All systems reviewed & are unremarkable except as noted in Subjective Physical Exam Physical Exam: Physical Exam: Vitals signs as noted above General Appearance:Obese, no apparent distress Head: normocephalic, Atraumatic Eyes: normal inspection, EOMI Neck: supple, Trachea midline Respiratory/Chest: Decreased breath sounds, CTA, No accessory muscle use Cardiovascular: S1, S2, No murmur Abdomen/GI:Soft, Non tender, Bowel sounds present Extremities/Musculoskeletal:normal inspection, 1+ edema Neurologic/Psych:AAOX3, grossly no focal neurological deficits ,+tremor Skin: normal color, warm Results & Data Results & Data Vital Signs (Past 12 Hours) Vital Signs Temp Pulse Pulse Resp BP Pulse Ox O2 Del Method 11/13/24 15:21 36.5 C 66 16 122/65 92 Nasal Cannula 11/13/24 15:11 67 20 92 Nasal Cannula 11/13/24 15:00 63 11/13/24 11:23 36.7 C 68 16 110/58 L 90 Nasal Cannula 11/13/24 11:22 63 20 90 Nasal Cannula 11/13/24 08:05 36.7 C 66 16 110/62 96 Nasal Cannula 11/13/24 08:00 Nasal Cannula 11/13/24 07:27 82 20 95 Nasal Cannula 11/13/24 07:11 66 O2 Flow Rate 11/13/24 15:21 4 11/13/24 15:11 4 11/13/24 15:00 11/13/24 11:23 4 11/13/24 11:22 4 11/13/24 08:05 4 11/13/24 08:00 4 11/13/24 07:27 4 11/13/24 07:11 Laboratory Results Short CBC 11/13/24 Range/Units 11:48 WBC 12.01 H (4.8-10.8) K/ul Hgb 10.7 L (12.0-16.0) g/dl Hct 34.0 L (37.0-47.0) % Plt Count 198 (130-400) K/uL BMP 11/13/24 11:48 Sodium 139 Potassium 4.5 Chloride 101 Carbon Dioxide 34 H BUN 31 H Creatinine 1.15 Glucose 125 H Calcium 8.8
[2024-11-13 19:51] VITALS: PULSE 74; RESP 20
--- NOTE | 2024-11-13 21:30 | Communication Note ---
Date of Service: November 13, 2024 Patient requesting to leave AMA as per RN. Requesting medication for anxiety which she is not due for/not indicated with current AWSS score as per RN. Similar patient behavior from last night as per staff. Patient unwilling to wait for undersigned to discuss concerns. ([employer] Change[employer] Operator currently attending to multiple ER admissions.) Patient signed AMA form provided by staff. Dr. Soria to accomplish discharge summary.
[2024-11-13 22:10] VITALS: BP 135/65
--- NOTE | 2024-11-14 07:19 | Discharge Summary ---
Date of Service November 14, 2024 Admission HPI Per Admitting Provider 59-year-old female with past medical history significant for hypokalemia, COPD, on home oxygen 4 L, history of pulmonary emboli, hypertension, GERD, history of KARLA, lumbar degenerative disease, osteoarthritis, restless leg syndrome, history of anemia, methadone maintenance therapy, substance abuse in remission, ongoing tobacco abuse, depression, ongoing alcoholism comes in because of shortness of breath and cough. Last couple of days getting more short of breath and cough with phlegm. Denies fevers. Had lower rib cage pain earlier but that resolved now. Attributes the rib cage pain to the cough. No headache. No runny nose or sore throat. No nausea. No abdominal pain. Normal bowel and bladder movements. Hemodynamics are okay. Says she is currently smoking 2 to 3 cigarettes daily. And drinks alcohol 3 mixed drinks daily. Patient was admitted in August 2024 with acute on chronic hypoxic respiratory failure, COPD exacerbation, influenza A infection and at the time CT chest noted early pneumonia recommended follow-up CT chest in 3 to 6 months. Past medical history. As mentioned above Past surgical history. Right total hip replacement. Social history. . Used to smoke 2 packs a day for 40 years. Currently smoking half pack a day. Patient says she is drinking 3 shots of mixed drink daily used to drink 6 shots in the past. History of heroin abuse currently on methadone. Family history. Mother had adenocarcinoma brain tumor. Sister had heart disease. Brother has hypertension. Admission Exam Per Admitting Provider General- Not in distress Head- atraumatic Eyes- PERRL. ENT- oropharynx clear Neck- supple, no JVD. Lungs- clear to auscultation mild expiratory wheezing present, no crackles Heart- regular rate and rhythm; no murmur, no gallop. Abdomen- normal bowel sounds, soft, nontender, no distension Extremities- no pretibial edema, no erythema seen Neuro- alert, oriented PERRL, no facial palsy; no dysarthria; moves extremities Principal Diagnosis Alcohol withdrawal COPD exacerbation Discharge Data Allergies Allergy/AdvReac Type Severity Reaction Status Date / Time fluticasone furoate AdvReac Intermediate INTENSE Verified 11/10/24 21:57 [From Trelegy Ellipta] HEADACHES umeclidinium AdvReac Intermediate INTENSE Verified 11/10/24 21:57 [From Trelegy Ellipta] HEADACHES vilanterol AdvReac Intermediate INTENSE Verified 11/10/24 21:57 [From Trelegy Ellipta] HEADACHES buspirone [From BuSpar] AdvReac Mild Rash Verified 11/10/24 21:57 sertraline AdvReac Mild NAUSEATED Verified 11/10/24 21:57 olive oil AdvReac Unknown reacts Verified 11/10/24 21:57 with methadone Consultations 11/10/24 22:31 ED Decision to Admit Stat Procedures Performed Laboratory Results WBC 12.01 K/ul (4.8-10.8) H 11/13/24 11:48 RBC 3.48 M/uL (4.20-5.40) L 11/13/24 11:48 Hgb 10.7 g/dl (12.0-16.0) L 11/13/24 11:48 Hct 34.0 % (37.0-47.0) L 11/13/24 11:48 MCV 97.7 fL (80.0-100.0) D 11/13/24 11:48 MCH 30.7 pg (25.0-34.0) 11/13/24 11:48 MCHC 31.5 g/dL (32.0-36.0) L 11/13/24 11:48 RDW Std Deviation 50.8 fL (36.4-46.3) H 11/13/24 11:48 RDW Coeff of Cee 14.1 % (11.5-14.5) 11/13/24 11:48 Plt Count 198 K/uL (130-400) 11/13/24 11:48 MPV 10.0 fL (9.4-12.4) 11/13/24 11:48 Immature Gran % (Auto) 1.5 % 11/11/24 08:58 Neut % (Auto) 92.8 % 11/11/24 08:58 Lymph % (Auto) 4.4 % 11/11/24 08:58 [place] % (Auto) 1.1 % 11/11/24 08:58 Eos % (Auto) 0.0 % 11/11/24 08:58 Baso % (Auto) 0.2 % 11/11/24 08:58 Neut # (Auto) 11.52 K/uL (1.40-6.50) H 11/11/24 08:58 Lymph # (Auto) 0.54 K/uL (1.20-3.40) L 11/11/24 08:58 [place] # (Auto) 0.14 K/uL (0.11-0.59) 11/11/24 08:58 Eos # (Auto) 0.00 K/uL (0.00-0.50) 11/11/24 08:58 Baso # (Auto) 0.03 K/uL (0.00-0.20) 11/11/24 08:58 Immature Gran # (Auto) 0.18 K/uL (0.01-0.20) 11/11/24 08:58 Polychromasia 1+ 11/11/24 08:58 Tear Drop Cells 1+ 11/11/24 08:58 PT 10.4 Seconds (9.0-12.0) 11/10/24 20:32 INR 1.0 (0.9-1.1) 11/10/24 20:32 APTT 28 Seconds (21-31) 11/10/24 20:32 PTT Ratio 1.0 11/10/24 20:32 VBG pH 7.45 (7.36-7.41) H 11/10/24 20:32 VBG pCO2 55 mmHg (38-50) H 11/10/24 20:32 VBG pO2 42 mmHg 11/10/24 20:32 VBG HCO3 38 mmol/L 11/10/24 20:32 VBG O2 Saturation 73.5 % 11/10/24 20:32 VBG Base Excess 11.9 mEq/L 11/10/24 20:32 Sodium 139 mmol/L (136-145) 11/13/24 11:48 Potassium 4.5 mmol/L (3.5-5.1) 11/13/24 11:48 Chloride 101 mmol/L (98-107) 11/13/24 11:48 Carbon Dioxide 34 mmol/L (21-32) H 11/13/24 11:48 Anion Gap 4 (3-11) 11/13/24 11:48 BUN 31 mg/dl (6-23) H 11/13/24 11:48 Creatinine 1.15 mg/dl (0.6-1.2) 11/13/24 11:48 Est Cr Clr Drug Dosing 67.2 ml/min 11/13/24 11:48 eGFR 55.56 11/13/24 11:48 BUN/Creatinine Ratio 27.0 (10-20) H 11/13/24 11:48 Glucose 125 mg/dl (70-99(Fasting)) H 11/13/24 11:48 Calcium 8.8 mg/dl (8.6-10.3) 11/13/24 11:48 Magnesium 2.3 mg/dl (1.7-2.4) 11/12/24 09:16 Total Bilirubin 0.2 mg/dl (0.2-1.0) 11/10/24 20:32 AST 42 U/L (13-39) H 11/10/24 20:32 ALT 50 U/L (7-52) 11/10/24 20:32 Alkaline Phosphatase 107 U/L (34-104) H 11/10/24 20:32 Troponin I High Sens 4.2 pg/ml (0-14) 11/11/24 04:48 Total Protein 7.0 gm/dl (6.0-8.3) 11/10/24 20:32 Albumin 3.8 gm/dl (3.4-5.0) 11/10/24 20:32 Globulin 3.2 gm/dl (2.5-4.0) 11/10/24 20:32 Albumin/Globulin Ratio 1.2 (0.9-2) 11/10/24 20:32 Vitamin B12 414 pg/ml (180-914) 11/11/24 04:48 Folate > 22.30 ng/ml (>5.38) 11/11/24 04:48 Procalcitonin 0.08 ng/ml (0-0.5) 11/11/24 04:48 SARS-CoV-2 (PCR) NEGATIVE (Negative) 11/10/24 19:00 Influenza Type A (PCR) Negative (Neg) 11/10/24 19:00 Influenza Type B (PCR) Negative (Neg) 11/10/24 19:00 RSV (RT-PCR) Negative (Neg) 11/10/24 19:00 Impressions Chest X-Ray 11/10/24 18:56 Chest radiograph, one view History: Chest pain Comparison: 08/30/2024 Findings: Single AP view of the chest performed. No focal consolidation or pleural effusion. Scattered thin, irregular opacity at the lung bases again noted, which may represent scar and/or sequelae of emphysema. No pneumothorax. The cardiomediastinal silhouette is within normal limits. Normal pulmonary vascularity. No evidence for lymphadenopathy. No visualized bony or soft tissue abnormality. Impression: No acute process. Similar chronic findings, as above. Electronically signed by Fabian Cee 11-10-2024 7:[address] 11/10/24 19:46 Exam(s): CT HEAD Without Contrast EXAM: CT Head Without Intravenous Contrast CLINICAL HISTORY: Reason for exam: guerra. TECHNIQUE: Axial computed tomography images of the head/brain without intravenous contrast. CTDI is 38.169 mGy and DLP is 546.359 mGy-cm. Automated exposure control was utilized for the study. A dose lowering technique was utilized adhering to the principles of ALARA. COMPARISON: Head CT 05/16/2022 FINDINGS: Artifacts: Images are slightly degraded by motion artifact. Brain: No intracranial hemorrhage, mass-effect, or cerebral edema. Atrophy and chronic microvascular ischemic changes. Ventricles: Unremarkable. Bones/joints: Unremarkable. No fracture. Soft tissues: Unremarkable. Sinuses: No acute sinusitis. Mastoid air cells: Unremarkable as visualized. IMPRESSION: 1. No acute intracranial abnormality. Electronically signed by: Ryne William MD 11/10/24 21:54 PM Ordered Studies 11/10/24 19:46 CT head/brain wo con Stat Hospital Course (1) COPD exacerbation: 59-year-old female with past medical history significant for hypokalemia, COPD, on home oxygen 4 L, history of pulmonary emboli, hypertension, GERD, history of KARLA, lumbar degenerative disease, osteoarthritis, restless leg syndrome, history of anemia, methadone maintenance therapy, substance abuse in remission, ongoing tobacco abuse, depression, ongoing alcoholism comes in because of shortness of breath and cough. Last couple of days getting more short of breath and cough with phlegm. Denies fevers. Had lower rib cage pain earlier but that resolved now. Attributes the rib cage pain to the cough. No headache. No runny nose or sore throat. No nausea. No abdominal pain. Normal bowel and bladder movements. Hemodynamics are okay. Says she is currently smoking 2 to 3 cigarettes daily. And drinks alcohol 3 mixed drinks daily. Patient was admitted in August 2024 with acute on chronic hypoxic respiratory failure, COPD exacerbation, influenza A infection and at the time CT chest noted early pneumonia recommended follow-up CT chest in 3 to 6 months. Acute COPD exacerbation Chronic oxygen dependency: On 4 L at baseline Ongoing tobacco abuse --Chest x-ray: No acute process --COVID, influenza A and B, RSV negative -- Procalcitonin 0.08 Continue IV Solu-Medrol>>transition to Prednisone Continue nebs Continue home inhalers Titrate oxygen to keep saturations 88 to 92% Continue current management Alcoholism/withdrawal Drinks 3 mixed drinks daily Continue thiamine, folic acid Changed gabapentin to Librium protocol Continue thiamine, folic acid monitor for withdrawal Slowly improving Chest pain Rib cage pain most from cough EKG and troponin negative resolved History of pulmonary emboli On Eliquis Hypertension Continue amlodipine, metoprolol succinate and Lasix Blood pressure stable monitor History of substance abuse in remission On methadone maintenance therapy GERD continue Protonix DVT prophylaxis On Eliquis Code Status Full code Patient left AGAINST MEDICAL ADVICE overnight Total Time Total Time Spent Total Time Spent (In Minutes): 28 minutes Discharge Plan Discharge Items Patient Disposition: Against Medical Advice Reason For Visit: COPD EXACERBATION, ALCOHOLISM Follow-up/Referrals: Roseann Plummer MD [Primary Care Provider] - Stand-Alone Forms: My [facility] [employer], Smoking Cessation Medications and DC Order Prescriptions: No Action amlodipine 10 mg tablet 10 mg PO QAM albuterol sulfate 90 mcg/actuation HFA aerosol inhaler 2 puff INHALATION Q6H PRN (Reason: Cough) furosemide 40 mg Tablet 40 mg PO QAM Qty: 30 0RF methadone 10 mg/5 mL Solution 100 mg PO QAM Rx Instructions: IF NEED TO VERIFY--Marc @ [facility] @ [phone]. nicotine 7 mg/24 hr Patch 24 Hour 1 patch TRANSDERMAL DAILY pantoprazole 40 mg tablet,delayed release (DR/EC) 40 mg PO QAM folic acid 1 mg tablet 1 mg PO QAM metoprolol succinate 25 mg tablet extended release 24 hr 12.5 mg PO [facility] Anoro Ellipta 62.5-25 mcg/actuation blister with device 1 inh INHALATION QAM Eliquis 5 mg tablet 5 mg PO [facility] hydroxyzine HCl 25 mg tablet 12.5 mg PO Q6H PRN (Reason: anxiety) Qty: 30 0RF prednisone 5 mg tablet See Rx Instructions .ROUTE .COMPLEX Qty: 108 0RF Rx Instructions: prednisone 5 mg: take 8 tablets (40 mg) For 3 days; 7 tablets (35 mg) for 3 days; then decrease by 1 tablet every three days until finished potassium chloride 10 mEq tablet,ER particles/crystals 20 meq PO [facility] magnesium oxide 400 mg (241.3 mg magnesium) tablet 800 mg PO HS Discharge Orders: Left Against Medical Advice (Routine); Ordered 11/13/24 Ordered By: Mason Fontanez/Other Patient Handouts: Asthma and COPD Admission Data Admit Date/Time: 11/11/24 02:43 Attending Provider: Mayo Soria Admit Provider: Alo Jason Primary Care Provider: Roseann Plummer Other Providers: Alo Jason
[2024-11-14] MEDS ORDERED: chlordiazePOXIDE HCl 25 MG CAP PO SCH (17:45)
[2024-11-14] MEDS ORDERED: GABAPENTIN 600 MG TAB PO SCH (18:00)
== END 2024-11-13 23:46 | disposition left against medical advice (07) | DRG 191 ==
LOC: ED 18:46 → EDINP 11-11 02:43 → SUATTDRO 11-11 02:43 → 2N 11-11 03:19
DX: Z79.01 Long term (current) use of anticoagulants; R07.81 Pleurodynia; Z11.52 Encounter for screening for COVID-19; Z86.711 Personal history of pulmonary embolism; Z88.8 Allergy status to other drugs, medicaments and biological substances; Z79.899 Other long term (current) drug therapy; F11.20 Opioid dependence, uncomplicated; J44.1 Chronic obstructive pulmonary disease with (acute) exacerbation; F10.230 Alcohol dependence with withdrawal, uncomplicated; K21.9 Gastro-esophageal reflux disease without esophagitis; F17.210 Nicotine dependence, cigarettes, uncomplicated; Z79.52 Long term (current) use of systemic steroids; Z68.33 Body mass index [BMI] 33.0-33.9, adult; I10 Essential (primary) hypertension; Z99.81 Dependence on supplemental oxygen; Z53.29 Procedure and treatment not carried out because of patient's decision for other reasons; E66.9 Obesity, unspecified; Z82.49 Family history of ischemic heart disease and other diseases of the circulatory system

== ENCOUNTER 2024-11-30 21:13 | Inpatient (IN) ==
[2024-11-30] MEDS: LORazepam 1 MG TAB SL STA (22:04)
[2024-11-30 22:22] LABS: Basophils # (auto) 0.02 K/uL (0.00-0.20); Basophils % (auto) 0.2 %; Eosinophils # (auto) 0.11 K/uL (0.00-0.50); Eosinophils % (auto) 1.2 %; Hemoglobin 10.9 g/dl (12.0-16.0); Immature Granulocytes # (auto) 0.13 K/uL (0.01-0.20); Immature Granulocytes % (auto) 1.4 %; Lymphocytes # (auto) 1.02 K/uL (1.20-3.40); Lymphocytes % (auto) 11.3 %; Mean Corpuscular Hemoglobin 30.6 pg (25.0-34.0); Mean Corpuscular Hgb Conc 32.1 g/dL (32.0-36.0); Mean Corpuscular Volume 95.5 fL (80.0-100.0); Mean Platelet Volume 9.8 fL (9.4-12.4); Monocytes # (auto) 0.64 K/uL (0.11-0.59); Monocytes % (auto) 7.1 %; Neutrophils % (auto) 78.8 %; Platelet Count 159 K/uL (130-400); RDW Coefficient of Variation 14.1 % (11.5-14.5); RDW Standard Deviation 49.1 fL (36.4-46.3); Red Blood Count 3.56 M/uL (4.20-5.40); White Blood Count 9.02 K/ul (4.8-10.8)
[2024-11-30 22:39] LABS: Albumin Globulin Ratio 1.2 (0.9-2); Albumin Level 3.6 gm/dl (3.4-5.0); BUN Creatinine Ratio 6.5 (10-20); Bilirubin,Total 0.3 mg/dl (0.2-1.0); Calcium 8.9 mg/dl (8.6-10.3); Creatinine Clr Calc Pharmacy 84.9 ml/min; Potassium 3.7 mmol/L (3.5-5.1); Total Protein 6.6 gm/dl (6.0-8.3)
[2024-11-30 22:41] LABS: Influenza A virus by PCR Negative (Neg); Influenza B virus by PCR Negative (Neg); RSV by PCR Negative (Neg); SARS CoV2 RNA(COVID-19) Ceph NEGATIVE (Negative)
[2024-11-30 22:45] LABS: Troponin I High Sensitivity 5.1 pg/ml (0-14)
[2024-11-30 22:58] LABS: Partial Thromboplastin Ratio 1.1; Partial Thromboplastin Time 29 Seconds (21-31); Prothrombin Time 11.1 Seconds (9.0-12.0)
--- NOTE | 2024-11-30 23:00 | Emergency Department Note ---
History of Present Illness General Chief Complaint: Shortness of Breath/Dyspnea Stated Complaint: LOW SP02,TACHY Time Seen by Provider: 11/30/24 21:44 History of Present Illness Provider Complaint: shortness of breath and chest pain Onset (ago): day(s) (4) Consistency/Duration: + progressively worsening Maximum Pain Intensity: 9 Relieved By: + upright position Exacerbated By: + lying flat and + coughing Known history of: COPD and congestive heart failure Associated symptoms: + chest pain, + cough, + sputum production, + orthopnea, + chest congestion and + other (Palpitations. Bilateral lower extremity edema); no hemoptysis, no nausea/vomiting, no abdominal pain or no rash HPI Narrative: Patient states she feels like she is going through alcohol withdrawal Home Medications Medication Instructions Recorded Confirmed Type amlodipine 10 mg tablet 10 mg PO QAM 05/16/22 11/30/24 History albuterol sulfate 90 mcg/actuation 2 puff inhalation Q6H PRN Cough 09/12/22 11/30/24 History aerosol inhaler furosemide 40 mg tablet 40 mg PO QA #30 tabs 09/21/22 11/30/24 Rx methadone 10 mg/5 mL oral solution 100 mg PO QAM 06/25/23 11/30/24 History nicotine 7 mg/24 hr daily 1 patch transdermal DAILY 06/25/23 11/30/24 History transdermal patch folic acid 1 mg tablet 1 mg PO QAM 01/21/24 11/30/24 History magnesium oxide 400 mg (241.3 mg 800 mg PO HS 05/09/24 11/30/24 History magnesium) tablet apixaban 5 mg tablet (Eliquis) 5 mg PO AMHS 08/31/24 11/30/24 History metoprolol succinate 25 mg 12.5 mg PO AMHS 08/31/24 11/30/24 History tablet,extended release 24 hr famotidine 20 mg tablet 20 mg PO AMHS 11/30/24 11/30/24 History hydroxyzine HCl 25 mg tablet 25 mg PO TID PRN Anxiety 11/30/24 11/30/24 History pantoprazole 40 mg tablet,delayed 40 mg PO BID 11/30/24 11/30/24 History release potassium chloride 20 mEq 20 meq PO AMHS 11/30/24 11/30/24 History tablet,extended release Allergies Allergy/AdvReac Type Severity Reaction Status Date / Time fluticasone furoate AdvReac Intermediate INTENSE Verified 11/10/24 21:57 [From Trelegy Ellipta] HEADACHES umeclidinium AdvReac Intermediate INTENSE Verified 11/10/24 21:57 [From Trelegy Ellipta] HEADACHES vilanterol AdvReac Intermediate INTENSE Verified 11/10/24 21:57 [From Trelegy Ellipta] HEADACHES buspirone [From BuSpar] AdvReac Mild Rash Verified 11/10/24 21:57 sertraline AdvReac Mild NAUSEATED Verified 11/10/24 21:57 olive oil AdvReac Unknown reacts Verified 11/10/24 21:57 with methadone Past Med/Surg History Problem List (Updated 12/01/24 @ 00:09 by Piotr Hoffman MD) Dyspnea (Acute) COPD exacerbation Viral pneumonia Positive blood culture Pneumonia due to hemophilus influenzae Opioid use disorder, severe, in sustained remission Cluster B personality disorder Alcohol use disorder, moderate, dependence MDD (major depressive disorder), recurrent episode, moderate Alcoholism /alcohol abuse Acute on chronic respiratory failure with hypoxemia Acute exacerbation of chronic obstructive pulmonary disease (Acute) Symptomatic cholelithiasis Edema, peripheral (Acute) 11/20/23 Hypomagnesemia (Acute) 11/20/23 Hypokalemia (Acute) 11/20/23 Frequent PVCs (Acute) Bradycardia (Acute) Acute on chronic respiratory failure with hypoxia and hypercapnia 08/23/23 History of alcohol abuse Tobacco use Sepsis due to pneumonia 08/23/23 Parainfluenza infection (Acute) 08/23/23 Pneumonia (Acute) 08/23/23 Encounter for pre-operative examination (~09/02/24) Pulmonary embolism dx 08/2022 - unknown the cause. treated with anticoagulants. Pulmonary hypertension 09/13/22 Hypercapnic respiratory failure 09/13/22 Muscle cramp (Acute) 09/13/22 PAC (premature atrial contraction) (Acute) Frequent PVCs (Acute) Acute hypoxemic respiratory failure (Acute) 09/13/22 Methadone maintenance therapy patient GERD (gastroesophageal reflux disease) HTN (hypertension) COPD (chronic obstructive pulmonary disease) (Acute) Medical History Edema of both lower extremities Difficult intravenous access Pulmonary hypertension Follow with [facility] Hx of pulmonary embolus dx 08/2022 - unknown the cause. treated with anticoagulants. 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 Down to three drinks a week GERD (gastroesophageal reflux disease) History of aspiration pneumonia 08/2022 from vomiting -- reports she "passed out and vomited while she was incoherent" per PAT RN COPD (chronic obstructive pulmonary disease) well controlled currently, uses 4lpm oxygen via n/c continuously Hx of sinus bradycardia episode when vitamin levels were low. no current issue History of endocarditis --- r/t IV drug use. S/P transesophageal echocardiogram ([facility]ENATA) Lung nodule monitoring Constipation Anxiety On home oxygen therapy 4lpm via n/c daily Recurrent major depressive disorder Surgical History S/P right cataract extraction Status post total hip replacement, right Family History Other Family history non-contributory No family history of adverse response to anesthesia Social History Smoking Status: Former smoker Tobacco Type: Cigarettes Cigarettes Per Day: 3; Second Hand Exposure: No; Do You Dip or Chew Tobacco: No; Hx Alcohol Use: Yes Alcohol type: other Hx Substance Use: Yes Last Used Substance: Days (ago) Last Used Substance Other:: remote hx of cocaine and heroin use (2008); med marijuana ~3-4x/week now Substance Use Type Other:: methadone, history of drug use Preferred Language: Japanese Communication Ability: Effective [employer] Inspector Required: No Beliefs That Will Affect Care: None Current Living Situation: Alone Feels Safe at Home: Yes Assistive Devices: Cane, Oxygen - Continuous and Walker Physical Exam 2 Vital Signs: Vital Signs - 24 hr 11/30/24 21:31 11/30/24 21:50 11/30/24 21:50 Temperature 36.7 C Temperature Source Temporal Artery Sc an Pulse Rate 81 82 Pulse Rate [Apical ] Pulse Rhythm Regular Pulse Strength Normal Respiratory Rate 26 H Respiratory Effort / Characteristics Non-Labored Sponta neous Respiratory Depth Normal Respiratory Patter n Regular Blood Pressure 148/83 H Blood Pressure [Ri ght Arm] Blood Pressure Susy n 104 Blood Pressure Susy n [Right Arm] Blood Pressure Pos ition Sitting Pulse Oximetry 94 94 Oxygen Delivery Me thod Nasal Cannula Nasal Cannula Oxygen Flow Rate 4 4 Sepsis Recent Feve r Within 48 Hours No Sepsis New/Unexpla ined Change in Men cecelia Status N/A Sepsis Action Take n by Nursing No Action Required 11/30/24 21:50 11/30/24 21:50 11/30/24 23:00 Temperature Temperature Source Pulse Rate Pulse Rate [Apical ] 80 81 Pulse Rhythm Pulse Strength Respiratory Rate 19 22 Respiratory Effort / Characteristics Spontaneous Labore d Non-Labored Sponta neous Respiratory Depth Normal Normal Respiratory Patter n Regular Regular Blood Pressure Blood Pressure [Ri ght Arm] 140/75 108/68 Blood Pressure Susy n Blood Pressure Ssuy n [Right Arm] 96 81 Blood Pressure Pos ition Pulse Oximetry 94 94 94 Oxygen Delivery Me thod Room Air Nasal Cannula Nasal Cannula Oxygen Flow Rate 4 4 Sepsis Recent Feve r Within 48 Hours Sepsis New/Unexpla ined Change in Men cecelia Status Sepsis Action Take n by Nursing Physical Exam: Physical Exam HENT: Exam performed. - Head: Normocephalic and atraumatic. EYES: Conjunctivae and EOM are normal. Right eye exhibits no discharge. Left eye exhibits no discharge. No scleral icterus. NECK: Normal range of motion. Neck supple. No JVD present. CV: Normal rate, regular rhythm, normal heart sounds and intact distal pulses. 2+ pitting edema of the bilateral lower extremities. Palpable radial pulses bue. PULM/CHEST: Rhonchi bilaterally. ABD: The abdomen is soft. There is no tenderness. NEURO: Motor and sensation grossly intact. SKIN: Skin is warm and dry. He is not diaphoretic. PSYCH: normal mood and affect. Behavior is normal. Judgment and thought content normal. Course Course 2143: The patient was evaluated in room C7. A complete history and physical exam was performed Cardiac monitoring: An order was placed for continuous cardiac monitoring. The monitor shows a rate of 80 with sinus rhythm interpreted by me 0000: Vital signs stable. Labs show normal troponin and BNP. Chest x-ray viewed by me shows mild cardiomegaly and cephalization. Patient be given IV Lasix. VBG shows venous pH of 7.37 with a venous pCO2 of 67 bicarb 39. COVID RSV influenza negative. Patient will be admitted to the [facility] hospitalist team. Administered Medications Discontinued Medications Furosemide (Furosemide 40 Mg/4 Ml Vial) 40 mg IV ONE ONE Stop: 11/30/24 22:57 Last Admin: 11/30/24 23:09 Dose: 40 mg Documented By: KUMAR Lorazepam (Lorazepam 1 Mg Tab) 1 mg SL NOW STA Stop: 11/30/24 21:57 Last Admin: 11/30/24 22:04 Dose: 1 mg Documented By: KUMAR Medical Decision Making Laboratory Data Attestation: I reviewed the patient's lab results. 11/30/24 22:07 11/30/24 22:07 Lab Results 11/30/24 11/30/24 11/30/24 Range/Units 21:57 22:07 23:08 WBC 9.02 (4.8-10.8) K/ul RBC 3.56 L (4.20-5.40) M/uL Hgb 10.9 L (12.0-16.0) g/dl Hct 34.0 L (37.0-47.0) % MCV 95.5 (80.0-100.0) fL MCH 30.6 (25.0-34.0) pg MCHC 32.1 (32.0-36.0) g/dL RDW Std Deviation 49.1 H (36.4-46.3) fL RDW Coeff of Cee 14.1 (11.5-14.5) % Plt Count 159 (130-400) K/uL MPV 9.8 (9.4-12.4) fL Immature Gran % (Auto) 1.4 % Neut % (Auto) 78.8 % Lymph % (Auto) 11.3 % [place] % (Auto) 7.1 % Eos % (Auto) 1.2 % Baso % (Auto) 0.2 % Neut # (Auto) 7.10 H (1.40-6.50) K/uL Lymph # (Auto) 1.02 L (1.20-3.40) K/uL [place] # (Auto) 0.64 H (0.11-0.59) K/uL Eos # (Auto) 0.11 (0.00-0.50) K/uL Baso # (Auto) 0.02 (0.00-0.20) K/uL Immature Gran # (Auto) 0.13 (0.01-0.20) K/uL PT 11.1 (9.0-12.0) Seconds INR 1.0 (0.9-1.1) APTT 29 (21-31) Seconds PTT Ratio 1.1 VBG pH 7.37 (7.36-7.41) VBG pCO2 67 H (38-50) mmHg VBG pO2 34 mmHg VBG HCO3 39 mmol/L VBG O2 Saturation < 60.0 % VBG Base Excess 10.6 mEq/L Sodium 138 (136-145) mmol/L Potassium 3.7 (3.5-5.1) mmol/L Chloride 96 L (98-107) mmol/L Carbon Dioxide 37 H (21-32) mmol/L Anion Gap 5 (3-11) BUN 6 (6-23) mg/dl Creatinine 0.93 (0.6-1.2) mg/dl Est Cr Clr Drug Dosing 84.9 ml/min eGFR 71.69 BUN/Creatinine Ratio 6.5 L (10-20) Glucose 150 H (70-99(Fasting)) mg/dl Calcium 8.9 (8.6-10.3) mg/dl Magnesium 1.8 (1.7-2.4) mg/dl Total Bilirubin 0.3 (0.2-1.0) mg/dl AST 34 (13-39) U/L ALT 43 (7-52) U/L Alkaline Phosphatase 115 H (34-104) U/L Troponin I High Sens 5.1 (0-14) pg/ml B-Natriuretic Peptide 92 (0-100) pg/ml Total Protein 6.6 (6.0-8.3) gm/dl Albumin 3.6 (3.4-5.0) gm/dl Globulin 3.0 (2.5-4.0) gm/dl Albumin/Globulin Ratio 1.2 (0.9-2) SARS-CoV-2 (PCR) NEGATIVE (Negative) Influenza Type A (PCR) Negative (Neg) Influenza Type B (PCR) Negative (Neg) RSV (RT-PCR) Negative (Neg) Imaging Data Attestation: I personally reviewed and interpreted this imaging study as follows: My Impression: Cardiomegaly with mild cephalization Radiologist's Impression: Chest X-Ray 11/30/24 21:36 Exam(s): XR CXR 1 VIEW EXAM: XR Chest, 1 View CLINICAL HISTORY: Chest pain, nonspecific. TECHNIQUE: Frontal view of the chest. COMPARISON: Portal chest single view 11/10/2024 FINDINGS: Lungs: No definite focal airspace consolidation, accounting for overlying soft tissues. The pulmonary vasculature demonstrates no significant radiographic abnormality. Pleural space: Similar pleural thickening along the left inferolateral hemithorax. No definite pleural effusion. No right pleural effusion or pneumothorax. Heart: Unremarkable. No cardiomegaly. Mediastinum: No significant abnormality identified. The trachea is midline. Bones/joints: Unremarkable. No acute fracture. IMPRESSION: No acute cardiopulmonary process or significant alteration from the prior examination. Electronically signed by: Richie Dos Santos MD 11/30/24 23:45 PM ECG Data Attestation: I personally reviewed and interpreted this ECG as follows: Interpretation: Sinus rhythm with a rate of 81. IN 100 QRS [address] elevation or ST depression. No delta wave. [facility] Narrative 2144: The patient was evaluated in room C7. A complete history and physical exam was performed Cardiac monitoring: An order was placed for continuous cardiac monitoring. The monitor shows a rate of 80 with sinus rhythm interpreted by me 0000: Vital signs stable. Labs show normal troponin and BNP. Chest x-ray viewed by me shows mild cardiomegaly and cephalization. Patient be given IV Lasix. VBG shows venous pH of 7.37 with a venous pCO2 of 67 bicarb 39. COVID RSV influenza negative. Patient will be admitted to the [facility] hospitalist team. Impression & Plan Dyspnea Discharge Plan Visit Data Chief Complaint: Shortness of Breath/Dyspnea Stated Complaint: LOW SP02,TACHY ED Provider: Piotr Hoffman Discharge Problem: Dyspnea Patient Disposition: Being Evaluated by Hospitalist Condition: Fair Forms Stand Alone Forms: My [facility] [employer] Prescriptions Prescriptions: No Action amlodipine 10 mg tablet 10 mg PO QAM albuterol sulfate 90 mcg/actuation HFA aerosol inhaler 2 puff INHALATION Q6H PRN (Reason: Cough) furosemide 40 mg Tablet 40 mg PO QAM Qty: 30 0RF methadone 10 mg/5 mL Solution 100 mg PO QAM Rx Instructions: IF NEED TO VERIFY--Marc @ [facility] @ [phone]. nicotine 7 mg/24 hr Patch 24 Hour 1 patch TRANSDERMAL DAILY folic acid 1 mg tablet 1 mg PO QAM metoprolol succinate 25 mg tablet extended release 24 hr 12.5 mg PO AMHS Eliquis 5 mg tablet 5 mg PO AMHS hydroxyzine HCl 25 mg tablet 25 mg PO TID PRN (Reason: Anxiety) famotidine 20 mg tablet 20 mg PO AMHS pantoprazole 40 mg tablet,delayed release (DR/EC) 40 mg PO BID potassium chloride 20 mEq tablet extended release 20 meq PO AMHS magnesium oxide 400 mg (241.3 mg magnesium) tablet 800 mg PO HS Referrals Referrals: Roseann Plummer MD [Primary Care Provider] -
[2024-11-30] MEDS: FUROSEMIDE 40 MG/4 ML VIAL IV ONE (23:09)
--- NOTE | 2024-11-30 23:40 | History & Physical Report ---
Date of Service November 30, 2024 Assessment & Plan (1) Acute and chronic respiratory failure with hypercapnia: Plan: Respiratory failure Acute on chronic Underlying pulmonary hypertension Possible sleep apnea as per outpatient pulm note from 2022, likely OHS given ch ronic hypercapnia Multifactorial COPD exacerbation/complicated bronchitis, no sepsis for now Decompensated heart failure, history of diastolic dysfunction, right side heart failure symptoms hypertension, stable hx PE on Eliquis chronic anemia, hemoglobin at baseline chronic pain on methadone anxiety/mood disorder, at baseline ongoing alcohol and tobacco abuse Admit to PCU Doxycycline, nebs RTC, steroid course Pulmonology consult if without improvement Monitor response to initial diuretic Rx administered at the ER Strict I/Os, daily weights, CHF education, fluid restriction Update TTE Outpatient sleep study IWONA S at risk protocol, DT precautions DVT prophylaxis. Eliquis Full code Text document was generated using [employer] voice recognition software. It may contain grammatical or spelling errors. Kindly contact undersigned for clarification of any documentation item in question. History of Present Illness Chief Complaint: Worsening cough, SOB. Primary Care Provider: Roseann Plummer MD History obtained from patient and records. Medical history significant for chronic diastolic heart failure (EF 55 to 60%, TTE 2023), hypertension, chronic respiratory failure secondary to COPD on home O2, pulmonary hypertension as per records, possible sleep apnea as per records, history of PE on Eliquis, chronic anemia (baseline hemoglobin 10-11), GERD, chronic pain on methadone, past history of substance abuse, anxiety/mood disorder, ongoing alcohol and tobacco abuse. Recent confinement last month for alcohol withdrawal and COPD exacerbation. Patient signed out AGAINST MEDICAL ADVICE. Patient with worsening shortness of breath symptoms over the last few days. Junky cough symptoms with fluid retention as per patient. Chest pain from coughing. No unusual headache or abdominal pain. Denies aspiration. Lasix administered at the ER. Medical History as above Surgical History : Hip replacement surgery Family History : Brain tumor, heart disease Personal/Social history : 1/4 pack daily, alcohol abuse, disabled Allergies Allergy/AdvReac Type Severity Reaction Status Date / Time fluticasone furoate AdvReac Intermediate INTENSE Verified 11/10/24 21:57 [From Trelegy Ellipta] HEADACHES umeclidinium AdvReac Intermediate INTENSE Verified 11/10/24 21:57 [From Trelegy Ellipta] HEADACHES vilanterol AdvReac Intermediate INTENSE Verified 11/10/24 21:57 [From Trelegy Ellipta] HEADACHES buspirone [From BuSpar] AdvReac Mild Rash Verified 11/10/24 21:57 sertraline AdvReac Mild NAUSEATED Verified 11/10/24 21:57 olive oil AdvReac Unknown reacts Verified 11/10/24 21:57 with methadone Home Medications Medication Instructions Recorded Confirmed Type amlodipine 10 mg tablet 10 mg PO QAM 05/16/22 11/30/24 History albuterol sulfate 90 mcg/actuation 2 puff inhalation Q6H PRN Cough 09/12/22 11/30/24 History aerosol inhaler furosemide 40 mg tablet 40 mg PO QAM #30 tabs 09/21/22 11/30/24 Rx methadone 10 mg/5 mL oral solution 100 mg PO QAM 06/25/23 11/30/24 History nicotine 7 mg/24 hr daily 1 patch transdermal DAILY 06/25/23 11/30/24 History transdermal patch folic acid 1 mg tablet 1 mg PO QAM 01/21/24 11/30/24 History magnesium oxide 400 mg (241.3 mg 800 mg PO HS 05/09/24 11/30/24 History magnesium) tablet apixaban 5 mg tablet (Eliquis) 5 mg PO AMHS 08/31/24 11/30/24 History metoprolol succinate 25 mg 12.5 mg PO AMHS 08/31/24 11/30/24 History tablet,extended release 24 hr famotidine 20 mg tablet 20 mg PO AMHS 11/30/24 11/30/24 History hydroxyzine HCl 25 mg tablet 25 mg PO TID PRN Anxiety 11/30/24 11/30/24 History pantoprazole 40 mg tablet,delayed 40 mg PO BID 11/30/24 11/30/24 History release potassium chloride 20 mEq 20 meq PO AMHS 11/30/24 11/30/24 History tablet,extended release Past Med/Surg History Problem List (Updated 12/01/24 @ 06:27 by Mason Sykse MD) Acute and chronic respiratory failure with hypercapnia Dyspnea (Acute) COPD exacerbation Viral pneumonia Positive blood culture Pneumonia due to hemophilus influenzae Opioid use disorder, severe, in sustained remission Cluster B personality disorder Alcohol use disorder, moderate, dependence MDD (major depressive disorder), recurrent episode, moderate Alcoholism /alcohol abuse Acute on chronic respiratory failure with hypoxemia Acute exacerbation of chronic obstructive pulmonary disease (Acute) Symptomatic cholelithiasis Edema, peripheral (Acute) 11/20/23 Hypomagnesemia (Acute) 11/20/23 Hypokalemia (Acute) 11/20/23 Frequent PVCs (Acute) Bradycardia (Acute) Acute on chronic respiratory failure with hypoxia and hypercapnia 08/23/23 History of alcohol abuse Tobacco use Sepsis due to pneumonia 08/23/23 Parainfluenza infection (Acute) 08/23/23 Pneumonia (Acute) 08/23/23 Encounter for pre-operative examination (~09/02/24) Pulmonary embolism dx 08/2022 - unknown the cause. treated with anticoagulants. Pulmonary hypertension 09/13/22 Hypercapnic respiratory failure 09/13/22 Muscle cramp (Acute) 09/13/22 PAC (premature atrial contraction) (Acute) Frequent PVCs (Acute) Acute hypoxemic respiratory failure (Acute) 09/13/22 Methadone maintenance therapy patient GERD (gastroesophageal reflux disease) HTN (hypertension) COPD (chronic obstructive pulmonary disease) (Acute) Medical History Edema of both lower extremities Difficult intravenous access Pulmonary hypertension Follow with S Hx of pulmonary embolus dx 08/2022 - unknown the cause. treated with anticoagulants. 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 Down to three drinks a week GERD (gastroesophageal reflux disease) History of aspiration pneumonia 08/2022 from vomiting -- reports she "passed out and vomited while she was incoherent" per PAT RN COPD (chronic obstructive pulmonary disease) well controlled currently, uses 4lpm oxygen via n/c continuously Hx of sinus bradycardia episode when vitamin levels were low. no current issue History of endocarditis --- r/t IV drug use. S/P transesophageal echocardiogram (RENATA) Lung nodule monitoring Constipation Anxiety On home oxygen therapy 4lpm via n/c daily Recurrent major depressive disorder Surgical History S/P right cataract extraction Status post total hip replacement, right Family History Other Family history non-contributory No family history of adverse response to anesthesia Social History Smoking Status: Current every day smoker Tobacco Type: Cigarettes Cigarettes Per Day: 3; Second Hand Exposure: No; Do You Dip or Chew Tobacco: No; Hx Alcohol Use: Yes Alcohol type: other Hx Substance Use: Yes Last Used Substance: Days (ago) Last Used Substance Other:: remote hx of cocaine and heroin use (2008); med marijuana ~3-4x/week now Substance Use Type Other:: methadone Preferred Language: Slovenian Communication Ability: Effective Catering Associate Required: No Beliefs That Will Affect Care: None Current Living Situation: Alone Other Information That Helps Us Care for You: No Feels Safe at Home: Yes Safety Concerns: Feels Safe At This Time Assistive Devices: Cane, Oxygen - Continuous and Walker Review of Systems Review of Systems: As per HPI, all other systems reviewed and negative Physical Exam Physical Exam: GENERAL: Comfortable, dysphonic, obese, no respiratory distress SKIN: Normal color, warm HEENT: Cavalero palpebral conjunctivae, no ptosis, moist buccal mucosa NECK : Supple, short neck, no tenderness CHEST : Decreased breath sounds, expiratory wheezes, no tenderness HEART : RRR, no obvious murmurs ABDOMEN: Some distention, nontender EXTREMITIES : Bilateral LE swelling without tenderness, palpable pulses, no other conspicuous deformities noted NEUROLOGIC : Coherent, no facial asymmetry, no other gross focality Results & Data Results & Data Vital Signs (Past 12 Hours) Vital Signs Temp Pulse Pulse Resp BP BP Pulse Ox 11/30/24 23:00 81 22 108/68 94 11/30/24 21:50 94 11/30/24 21:50 80 19 140/75 94 11/30/24 21:50 94 11/30/24 21:50 82 11/30/24 21:31 36.7 C 81 26 H 148/83 H 94 O2 Del Method O2 Flow Rate 11/30/24 23:00 Nasal Cannula 4 11/30/24 21:50 Nasal Cannula 4 11/30/24 21:50 Room Air 11/30/24 21:50 Nasal Cannula 4 11/30/24 21:50 11/30/24 21:31 Nasal Cannula 4 Laboratory Results Laboratory Results WBC 9.02 K/ul (4.8-10.8) 11/30/24 22:07 RBC 3.56 M/uL (4.20-5.40) L 11/30/24 22:07 Hgb 10.9 g/dl (12.0-16.0) L 11/30/24 22:07 Hct 34.0 % (37.0-47.0) L 11/30/24 22:07 MCV 95.5 fL (80.0-100.0) 11/30/24 22:07 MCH 30.6 pg (25.0-34.0) 11/30/24 22:07 MCHC 32.1 g/dL (32.0-36.0) 11/30/24 22:07 RDW Std Deviation 49.1 fL (36.4-46.3) H 11/30/24 22:07 RDW Coeff of Cee 14.1 % (11.5-14.5) 11/30/24 22:07 Plt Count 159 K/uL (130-400) 11/30/24 22:07 MPV 9.8 fL (9.4-12.4) 11/30/24 22:07 Immature Gran % (Auto) 1.4 % 11/30/24 22:07 Neut % (Auto) 78.8 % 11/30/24 22:07 Lymph % (Auto) 11.3 % 11/30/24 22:07 [place] % (Auto) 7.1 % 11/30/24 22:07 Eos % (Auto) 1.2 % 11/30/24 22:07 Baso % (Auto) 0.2 % 11/30/24 22:07 Neut # (Auto) 7.10 K/uL (1.40-6.50) H 11/30/24 22:07 Lymph # (Auto) 1.02 K/uL (1.20-3.40) L 11/30/24 22:07 [place] # (Auto) 0.64 K/uL (0.11-0.59) H 11/30/24 22:07 Eos # (Auto) 0.11 K/uL (0.00-0.50) 11/30/24 22:07 Baso # (Auto) 0.02 K/uL (0.00-0.20) 11/30/24 22:07 Immature Gran # (Auto) 0.13 K/uL (0.01-0.20) 11/30/24 22:07 PT 11.1 Seconds (9.0-12.0) 11/30/24 22:07 INR 1.0 (0.9-1.1) 11/30/24 22:07 APTT 29 Seconds (21-31) 11/30/24 22:07 PTT Ratio 1.1 11/30/24 22:07 Sodium 138 mmol/L (136-145) 11/30/24 22:07 Potassium 3.7 mmol/L (3.5-5.1) 11/30/24 22:07 Chloride 96 mmol/L (98-107) L 11/30/24 22:07 Carbon Dioxide 37 mmol/L (21-32) H 11/30/24 22:07 Anion Gap 5 (3-11) 11/30/24 22:07 BUN 6 mg/dl (6-23) 11/30/24 22:07 Creatinine 0.93 mg/dl (0.6-1.2) 11/30/24 22:07 Est Cr Clr Drug Dosing 84.9 ml/min 11/30/24 22:07 eGFR 71.69 11/30/24 22:07 BUN/Creatinine Ratio 6.5 (10-20) L 11/30/24 22:07 Glucose 150 mg/dl (70-99(Fasting)) H 11/30/24 22:07 Calcium 8.9 mg/dl (8.6-10.3) 11/30/24 22:07 Total Bilirubin 0.3 mg/dl (0.2-1.0) 11/30/24 22:07 AST 34 U/L (13-39) 11/30/24 22:07 ALT 43 U/L (7-52) 11/30/24 22:07 Alkaline Phosphatase 115 U/L (34-104) H 11/30/24 22:07 Troponin I High Sens 5.1 pg/ml (0-14) 11/30/24 22:07 B-Natriuretic Peptide 92 pg/ml (0-100) 11/30/24 22:07 Total Protein 6.6 gm/dl (6.0-8.3) 11/30/24 22:07 Albumin 3.6 gm/dl (3.4-5.0) 11/30/24 22:07 Globulin 3.0 gm/dl (2.5-4.0) 11/30/24 22:07 Albumin/Globulin Ratio 1.2 (0.9-2) 11/30/24 22:07 SARS-CoV-2 (PCR) NEGATIVE (Negative) 11/30/24 21:57 Influenza Type A (PCR) Negative (Neg) 11/30/24 21:57 Influenza Type B (PCR) Negative (Neg) 11/30/24 21:57 RSV (RT-PCR) Negative (Neg) 11/30/24 21:57 Diagnostic Findings Chest x-ray as per my interpretation no congestion/infiltrate EKG as per my interpretation : Rate 80, NSR, normal axis, T wave flattening septal leads
[2024-11-30 23:44] LABS: Magnesium 1.8 mg/dl (1.7-2.4)
[2024-11-30 23:46] LABS: Base Excess VBG 10.6 mEq/L; HCO3 VBG 39 mmol/L; Oxygen Saturation VBG < 60.0 %; PCO2 VBG 67 mmHg (38-50); PO2 VBG 34 mmHg; pH VBG 7.37 (7.36-7.41)
--- NOTE | 2024-11-30 23:46 | XRay Report ---
Exam(s): XR CXR 1 VIEW EXAM: XR Chest, 1 View CLINICAL HISTORY: Chest pain, nonspecific. TECHNIQUE: Frontal view of the chest. COMPARISON: Portal chest single view 11/10/2024 FINDINGS: Lungs: No definite focal airspace consolidation, accounting for overlying soft tissues. The pulmonary vasculature demonstrates no significant radiographic abnormality. Pleural space: Similar pleural thickening along the left inferolateral hemithorax. No definite pleural effusion. No right pleural effusion or pneumothorax. Heart: Unremarkable. No cardiomegaly. Mediastinum: No significant abnormality identified. The trachea is midline. Bones/joints: Unremarkable. No acute fracture. IMPRESSION: No acute cardiopulmonary process or significant alteration from the prior examination. Electronically signed by: Richie Dos Santos MD 11/30/24 23:45 PM
[2024-12-01] MEDS: THIAMINE HCL 100 MG in SYRINGE 9 ML IV STA (00:31)
[2024-12-01] MEDS: methylPREDNISolone 40 MG in SYRINGE 0 ML IV ONE (00:45)
[2024-12-01] MEDS: DOXYCYCLINE HYCLATE 100 MG in DEXTROSE 5% MINI-B 100 ML IV STA (00:46)
[2024-12-01] MEDS: hydrOXYzine HCl 25 MG TAB PO PRN (01:03)
[2024-12-01] MEDS: APIXABAN 5 MG TABLET PO SCH (01:25)
[2024-12-01] MEDS: NICOTINE 14 MG/24 HR PATCH TD SCH (01:25)
[2024-12-01] MEDS: PANTOprazole 40 MG TAB PO SCH (01:25)
[2024-12-01] MEDS: IPRATROPIUM BROMIDE NEB SOLN 0.02% 0.5MG/2.5ML VIAL INH SCH (01:34)
[2024-12-01] MEDS: LEVALBUTEROL 1.25 MG/3 ML NEB NEB SCH (01:34)
[2024-12-01] MEDS: MAGNESIUM SULFATE / D5W 1 GM/100 ML BAG IV ONE (01:40)
--- OUTSIDE RECORDS SUMMARY | 2024-12-01 04:15 | External Medical Summary | Summary of Care ---
Author Name Unknown Organization [facility] Address [address] [place] [address] Phone [phone] Care Team Providers Care Manifest/Order Organizer Print Orders Name Role Phone Roseann Plummer MD Primary Care Provider Encounter Details Date Type Department Care Team ([facility] st Contact Info) Description 11/26/2024 Orders Only PATIENT PORTAL DO NOT DELETE THIS DEPT USED BY PEGGY BRADENTONJOSE [id number] Allergies Active Allergy Reactions Criticality Noted Date Comments Buspirone Rash 11/01/2022 documented as of this encounter (statuses as of 11/26/2024) Medications methADONE 10 MG Tablet Take 1 [...] COUGH 18 g 5 05/08/20 24 Active Potassium Chloride ER 20 MEQ [...] morning. 30 Tablet 5 07/03/20 24 Active Lidocaine 4 % External Patch (Aspercreme)Indica [...] 10/28/2024 2:38 PM EDT 10/29/19 25 Active Sertraline [...] day. 180 Tablet 1 11/05/19 25 Active diazePAM 5 MG Oral Tablet (Valium)Indication s:Situational anxiety Take 1 tab by mouth 45-[address] scan. Do not mix with alcohol. Do not drive. 2 Tablet 11/07/19 25 Active Eliquis 5 MG Oral Tablet (Apixaban) TAKE ONE TABLET BY MOUTH EVERY MORNING AND TAKE ONE TABLET BY MOUTH BEFORE BEDTIME 180 Tablet 1 11/13/19 25 Active hydrOXYzine HCl 25 MG Oral Tablet Take 1 Tablet by mouth 3 times a day as needed for Anxiety. 30 Tablet 5 11/13/19 25 Active Hospital, Clinic, or Other Facility Administered Medication Ordered Dose Route Frequency Start Date End Date Status Albuterol Sulfate (Proventil) (2.5 MG/3ML) 0.083% inhalation solution 2.5 mgIndications:COPD, mild ([facility]) 2.5 mg NEBULIZER PRN 10/11/2022 Active Albuterol Sulfate (Proventil) (2.5 MG/3ML) 0.083% inhalation solution 2.5 mgIndications:COPD, group D, by GOLD 2017 classification ([facility]) 2.5 mg NEBULIZER PRN 11/23/2024 11/23/2025 Acti ve Albuterol Sulfate (Proventil) (5 MG/ML) 0.5% *conc* inhalation solution 2.5 mgIndications:COPD, group D, by GOLD 2017 classification ([facility]) 2.5 mg NEBULIZER PRN 11/23/2024 11/23/2025 Acti ve documented as of this encounter (statuses as of 11/26/2024) Active Problems Problem Noted Date Diagnosed Date COPD, group D, by GOLD 2017 classification 11/09 Overview: Per COPD GOLD Classification Alcohol use disorder 10/23/2024 Chronic anticoagulation 10/23/2024 [...] STAIR program. Medical home patient encounter 05/23/2022 Methadone maintenance therapy patient 09/20/2021 Recurrent major [...] as of this encounter (statuses as of 11/26/2024) Resolved Problems Problem Noted Date Diagnosed Date Resolved Date Acute on chronic respiratory failure with hypoxia and hypercapnia 10/23/2024 10/26/2024 Acute on chronic heart failu re with preserved ejection fraction 10/23/2024 10/26/2024 Chronic kidney disease, stage 3a 10/08/2022 03/01/2023 Overview: Per CKD protocol Substance abuse 05/25/2022 03/01/2023 Thrombocytopenia 05/25/2022 09/06/2023 Food insecurity 05/07/2022 05/14/2024 Overview: Per [facility] Protocol COPD, group C, by GOLD 2017 classification 10/09/2021 11/12/2024 Overview: Per COPD GOLD Classification Food insecurity 03/06/2021 01/11/2022 Overview: Per [facility] Protocol documented as of this encounter (statuses as of 11/26/2024) Immunizations Name Administration Dates Next Due Pneumococcal [...] Tobacco: Never Comments:Smoking 3 cpd . 2/2 0 Alcohol Use Standard Drinks/Week Comments Yes 1 [...] Assessment Author No 12/05/2020 2:35 PM EDT JenniferMarcela kelley RN * Are you blind or do [...] Team (Late st Contact Info) Description 12/04/2024 3:30 PM EDT Office Visit Orthopaedics Spine Surgery [facility] [address] [place] [phone] Ramirez Jorgensen MD [address] [place] [address] 12/08/2024 12:00 PM EDT Imaging Radiology [facility] [address] [place] [phone] 12/16/2024 1:00 PM EDT Nutrition Services Nutrition, [facility] [address] [place] [phone] Zari Bonilla RDN [address] [place] [phone] 12/28/2024 12:30 PM EDT Office Visit Pulmonary Medicine, [facility] [address] [place] [phone] Huan Branham MD [address] [place] [phone] 01/14/2025 10:00 AM EDT PulmDiagnostic Pulmonary Function Lab, [facility] [address] [place] [phone] [place] [address] [place] [phone] 05/12/2025 10:20 AM EDT Office Visit Family Practice [facility] [address] [place] [phone] Roseann Plummer MD [address] [place] [phone] 07/07/2025 9:00 AM EST Office Visit Gynecology/Obstetric s [facility] [address] [place] [phone] Anahi Anthony CRNP [address] [place] [phone] Health Maintenance Due Date Last Done Comments [...] encounter Medical Devices Implanted Type Area Automotive Service Professional Device Identifier Shelf Expiration Date Model / Serial / Lot Shell Acet Trident Ii 50mm - [id number] Implanted:Qty: 1 on 12/05/2020 by Rodolfo Park DO at OR [facility] Right: Hip KANDICE : ORTHOPAEDICS 09/04/2024 702-04-50D / / [id number] Trident Acetabular X3 0 36 D - [id number] Implanted:Qty: 1 on 12/05/2020 by Rodolfo Park DO at OR [facility] Right: Hip [employer] : ORTHOPAEDICS 09/14/2025 723-00-36D / / [id number] Hip Hd Perry Hummel 36/ 25 - [id number] Implanted:Qty: 1 on 12/05/2020 by Rodolfo Park DO at OR [facility] Right: Hip [employer] : ORTHOPAEDICS 10/03/2025 [id number] / / [id number] Accolade Ii 127 Deg Sz 4 - [id number] Implanted:Qty: 1 on 12/05/2020 by Rodolfo Park DO at OR [facility] Right: Hip [employer] : ORTHOPAEDICS 11/07/2025 [id number] / / [id number] documented as of this encounter Advance Directives [...] the patient have Health Care Power of Product Development Carpenter? Yes, not currently available Care Teams Manifest/Order Organizer Print Orders Relationship Specialty Start Date End Date Roseann Plummer MD [address] [place] [phone] PCP - General Internal Medicine 11/05/22 documented as of this encounter
--- OUTSIDE RECORDS SUMMARY | 2024-12-01 04:15 | External Medical Summary | Summary of Care ---
Author Name Unknown Organization [facility] Address [address] [place] [address] Phone [phone] Care Team Providers Care Service Desk Director Name Role Phone Roseann Plummer MD Primary Care Provider Reason for Visit * Reason Onset Date Comments Medication Refill 11/18/2024 Encounter Details Date Type Department Care Team ([facility] st Contact Info) Description 11/12/2024 Refill Family Practice [facility] [address] [place] [address] Roseann Plummer MD [address] [place] [address] Allergies Active Allergy Reactions Criticality Noted Date [...] FOR COUGH 18 g 5 024 Active Potassium Chloride ER 20 MEQ [...] the morning. 30 Tablet 5 024 Active Lidocaine 4 % External Patch (Aspercreme)Indic [...] a day. 180 Tablet 1 025 Active diazePAM 5 MG Oral Tablet (Valium)Indicatio ns:Situational anxiety Take 1 tab by mouth 45-[address] scan. Do not mix with alcohol. Do not drive. 2 Tablet 025 Active Eliquis 5 MG Oral Tablet (Apixaban) TAKE ONE TABLET BY MOUTH EVERY MORNING AND TAKE ONE TABLET BY MOUTH BEFORE BEDTIME 180 Tablet 1 025 Active hydrOXYzine HCl 25 MG Oral Tablet Take 1 Tablet by mouth 3 times a day as needed for Anxiety. 30 Tablet 5 025 Active Eliquis 5 MG Oral Tablet (Apixaban) TAKE ONE TABLET BY MOUTH EVERY MORNING AND TAKE ONE TABLET BY MOUTH BEFORE BEDTIME 180 Tablet 1 024 2024 Discontinued Clotrimazole 10 MG Mouth/Throat Bernardino (Mycelex Bernardino)Indication s:Thrush Take 1 Lozenge by mouth 5 times a day for 14 days. Allow tablet to slowly dissolve in your mouth 70 Bernardino 1 025 2024 Hospital, Clinic, or Other Facility Administered Medication [...] encounter Miscellaneous Notes * Telephone Encounter - Ronald Garcia RP - 11/26/2024 3:37 PM EDT 2nd attempt, VM left for MO. Thank you, Ronald Garcia, PharmD Clinical Pharmacist [facility] ([facility]) [phone] 11/26/2024, 3:37 PM * Telephone Encounter - Ronald Garcia [facility] - 11/18/2024 3:54 PM EDT Left VM to follow up on MO offer. Please transfer her back to myself. If I'm not available, transfer to next available [facility]. Thank you, Ronald Garcia, PharmShaheed Clinical Pharmacist [facility] ([facility]) [phone] 11/18/2024, 3:55 PM * Telephone Encounter - Rajesh Segovia MD - 11/12/2024 1:45 PM EDTSigned Prescriptions: Disp Refills Eliquis 5 MG Oral Tablet (Apixaban) 180 Ta*1 Sig: TAKE ONE TABLET BY MOUTH EVERY MORNING AND TAKE ONE TABLET BY MOUTH BEFORE BEDTIMEAuthorizing Provider: RAJESH SEGOVIA * Telephone Encounter - Ronald Garcia [facility] - 11/12/2024 12:18 PM EDT Pending Prescriptions: Disp Refills Eliquis 5 MG Oral Tablet (Apixaban) 60 Tab*0 Sig: TAKE ONE TABLET BY MOUTH EVERY MORNING AND TAKE ONE TABLET BY MOUTH BEFORE BEDTIME * Telephone Encounter - Ronald Garcia [facility] - 11/12/2024 12:16 PM EDT Per admission notes (11/04/24): patient was to d/c eliquis pending results of vascular study. Uncertain if medication should be refilled at this time. Please review and approve/deny as appropriate. Thank you, Ronald Kiehart, PharmD Clinical Pharmacist [facility] ([facility]) [phone] 11/12/2024, 12:17 PM * Telephone Encounter - Ronald Garcia RPh - 11/12/2024 12:11 PM EDT Pending Prescriptions: Disp Refills Eliquis 5 MG Oral Tablet (Apixaban) [Phar*60 Tab*0 Sig: TAKE ONE TABLET BY MOUTH EVERY MORNING AND TAKE ONE TABLET BY MOUTH BEFORE BEDTIME Last Visit: 11/04/2024 (in office), Visit date not found (telemedicine) Next Visit: 05/12/2025 If no future appointments scheduled, and last appointment is greater than a year ago, please schedule patient for a follow-up appointment Last date the medication was ordered: 05/18/24 Pharmacy: [facility] [address] [place] [address] Is this request for a controlled substance? No Urine Drug Screen:No results found. However, due to the size of the patient record, not all encounters were searched. Please check Results Review for a complete set of results. Patient Phone Numbers Labs: Lab Results Component Value Date/Time CREAT 0.9 10/26/2024 06:36 AM CREAT 0.92 10/09/2022 12:00 AM CREAT 0.8 02/29/2020 12:27 PM POTASSIUM 4.8 10/26/2024 06:36 AM POTASSIUM 3.3 (A) 10/09/2022 12:00 AM POTASSIUM 3.9 02/29/2020 12:27 PM TSH 2.82 05/25/2022 12:46 PM TSH 2.11 02/29/2020 12:27 PM LDL 196 (H) 11/25/2020 12:32 PM LDL 205 (H) 02/29/2020 12:27 PM LDL NOT APPLICABLE 02/29/2020 12:27 PM ALT 46 (H) 10/26/2024 06:36 AM ALT 21 02/29/2020 12:27 PM HGBA1C 5.6 11/25/2020 12:32 PM documented in this encounter Plan of Treatment Upcoming Encounters Date Type Department Care Team (Late st Contact Info) Description 12/04/2024 3:30 PM EDT Office Visit Orthopaedics Spine Surgery [facility] [address] [phone] Ramirez Jorgensen MD [address] [place] [address] 12/08/2024 12:00 PM EDT [facility] [address] [phone] 12/16/2024 1:00 PM EDT Nutrition Services Nutrition, [facility] [address] [place] [address] Zari Bonilla RDN [address] [place] [address] 12/28/2024 12:30 PM EDT Office Visit Pulmonary Medicine, [facility] [address] [phone] Huan Branham MD [address] [place] [address] 01/14/2025 10:00 AM EDT PulmDiagnostic Pulmonary Function Lab, [facility] [address] [place] [phone] [place] [address] [place] [address] 05/12/2025 10:20 AM EDT Office Visit Family Practice [facility] [address] [address] Roseann Plummer MD [address] [place] [address] 07/07/2025 9:00 AM EST Office Visit Gynecology/Obstetric s Lydia Quezada [address] [place] [address] Anahi Anthony CRNP [address] [place] [address] Health Maintenance Due Date Last Done Comments DISCUSS TOBACCO CESSATION (REFER TO SMARTSET #5673) 1965 Alpha-1 Antitrypsin 1985 Pap Smear 1988 [...] this encounter Medical Devices Implanted Type Area Reclamation Engineer Device Identifier Shelf Expiration Date Model / Serial / Lot Shell Acet Trident Ii 50mm - [id number] Implanted:Qty: 1 on 12/05/2020 by Rodolfo Park DO at OR [facility] Right: Hip KANDICE : ORTHOPAEDICS 09/04/2024 702-04-50D / / [id number] Trident Acetabular X3 0 36 D - [id number] Implanted:Qty: 1 on 12/05/2020 by Rodolfo Park DO at OR [facility] Right: Hip KANDICE : ORTHOPAEDICS 09/14/2025 723-00-36D / / [id number] Hip Hd Nk Alumina Md D 36/ 25 - [id number] Implanted:Qty: 1 on 12/05/2020 by Rodolfo Park DO at OR [facility] Right: Hip KANDICE : ORTHOPAEDICS 10/03/2025 6570-0-436 / / [id number] Accolade Ii 127 Deg Sz 4 - [id number] Implanted:Qty: 1 on 12/05/2020 by Rodolfo Park DO at OR [facility] Right: Hip KANDICE : ORTHOPAEDICS 11/07/2025 [id number] / / [id number] documented as of this encounter Advance Directives [...] the patient have Health Care Power of Waste Water Operator? Yes, not currently available Care Teams Service Desk Director Relationship Specialty Start Date End Date Roseann Plummer MD [address] [address] PCP - General Internal Medicine 11/05/22 documented as of this encounter
[2024-12-01] MEDS: METOPROLOL TARTRATE 1 MG/ML VIAL IV STA (04:16)
--- OUTSIDE RECORDS SUMMARY | 2024-12-01 04:16 | External Medical Summary | Summary of Care ---
Author Name Unknown Organization [facility] Address [address] [place] [address] Phone [phone] Care Team Providers Care Roll Capper Name Role Phone Roseann Plummer MD Primary Care Provider Reason for Visit * Reason Onset Date Comments Advice 11/20/2024 Re: oxygen recer t Encounter Details Date Type Department Care Team (Late st Contact Info) Description 11/20/2024 Telephone Access Center, [place] [address] [facility] *DO NOT REMOVE THIS DEPARTMENT* [place] [address] Services, Scheduling [address] [place] [address] Advice (Re: oxygen recert) Allergies Active Allergy Reactions Criticality Noted Date Comments Buspirone Rash 11/01/2022 documented as of this encounter (statuses as of 11/23/2024) Medications methADONE 10 MG Tablet Take 1 [...] as of this encounter (statuses as of 11/23/2024) Active Problems Problem Noted Date Diagnosed Date [...] as of this encounter (statuses as of 11/23/2024) Resolved Problems Problem Noted Date Diagnosed Date [...] as of this encounter (statuses as of 11/23/2024) Immunizations Name Administration Dates Next Due Pneumococcal [...] Smokeless Tobacco: Never Comments:Smoking 3 cpd . 2/ Alcohol Use Standard Drinks/Week Comments Yes 1 [...] 05/20/2024 Does the household have a [facility] source of income? (Household - for [...] Assessment Author No 12/06/2020 9:00 AM EDT Cee, Mo rgan, RN * Do you have difficulty dressing [...] Telephone Encounter - Brandy Ba LPN - 11/23/2024 1:43 PM EDT Per Althea (referral management team) at [facility], pt is now using 4 LPM continuous. Pt needs updated F2F visit and updated orders to reflect current oxygen orders. She also requires current O2 sat testing to reflect. Scheduling, please contact pt to schedule appt with Dr Branham. If Dr Branham also orders testing, please attempt to schedule 6mw the same day (prior) to the visit. Dr Branham, would you place order for 6MW-starting on room air and titrating-to possibly be done the same day as the visit? * Telephone Encounter - Urvashi Mendoza OSA - 11/20/2024 5:01 PM EDT [id number] called the patient and told her that they need to speak with Dr. Branham for re cert. For oxygen and supplies. Phone number for [employer] is needs to [phone]. Thank You. documented in this encounter Plan of Treatment Upcoming Encounters Date Type Department Care Team (Late st Contact Info) Description 11/26/2024 12:30 PM EDT Imaging Radiology [facility] [address] [place] [phone] 11/26/2024 1:30 PM EDT Imaging Radiology [facility] [address] [place] [phone] 12/16/2024 1:00 PM EDT Nutrition Services Nutrition, [facility] [address] [facility] [place] [address] Zari Bonilla, RDN 132 [facility] [place] [address] 12/28/2024 12:30 PM EDT Office Visit Pulmonary Medicine, [facility] [address] [place] [phone] Huan Branham MD [address] [place] [address] 01/01/2025 11:30 AM EDT Office Visit Orthopaedics Spine Surgery [facility] [address] [place] [phone] Ramirez Jorgensen MD [address] [place] [address] 05/12/2025 10:20 AM EDT Office Visit Family Practice [facility] [place] [address] Roseann Plummer MD [address] [place] [address] 07/07/2025 9:00 AM EST Office Visit Gynecology/Obstetric s [facility] [address] [facility] [place] [address] Anahi Anthony CRNP [address] [place] [address] Health Maintenance Due Date Last Done Comments DISCUSS TOBACCO CESSATION (REFER TO SMARTSET #5712) 1965 Alpha-1 Antitrypsin 1985 Pap Smear 1988 [...] this encounter Medical Devices Implanted Type Area Tuck Pointer Device Identifier Shelf Expiration Date Model / Serial / Lot Shell Acet Trident Ii 50mm - [id number] Implanted:Qty: 1 on 12/05/2020 by Rodolfo Park, DO at OR [facility] Right: Hip KANDICE : ORTHOPAEDICS 09/04/2024 702-04-50D / / [id number] Trident Acetabular X3 0 36 D - [id number] Implanted:Qty: 1 on 12/05/2020 by Rodolfo Park DO at OR [facility] Right: Hip KANDICE : ORTHOPAEDICS 09/14/2025 723-00-36D / / [id number] Hip Hd Perry Hummel 36/ 25 - [id number] Implanted:Qty: 1 on 12/05/2020 by Rodolfo Park DO at OR [facility] Right: Hip KANDICE : ORTHOPAEDICS 10/03/2025 6570-0-436 / / [id number] Accolade Ii 127 Deg Sz 4 - [id number] Implanted:Qty: 1 on 12/05/2020 by Rodolfo Park DO at OR [facility] Right: Hip KANDICE : ORTHOPAEDICS 11/07/2025 [id number] / / [id number] documented as of this encounter Advance Directives [...] the patient have Health Care Power of Family Partner? Yes, not currently available Care Teams Roll Capper Relationship Specialty Start Date End Date Roseann Plummer MD [address] [address] PCP - General Internal Medicine 11/05/22 documented as of this encounter
--- OUTSIDE RECORDS SUMMARY | 2024-12-01 04:16 | External Medical Summary | Summary of Care ---
Author Name Unknown Organization [facility] Address [address] [place] [address] Phone [phone] Care Team Providers Care Joint Maker Machine Name Role Phone Roseann Plummer MD Primary Care Provider Reason for Visit * Reason Onset Date Comments Advice 11/20/2024 Re: oxygen recer t Encounter Details Date Type Department Care Team (Late st Contact Info) Description 11/20/2024 Telephone Access Center, [place] [address] [facility] *DO NOT REMOVE THIS DEPARTMENT* [place] [address] Services, Scheduling [address] [place] [address] Advice (Re: oxygen recert) Allergies Active Allergy Reactions Criticality Noted Date Comments Buspirone Rash 11/01/2022 documented as of this encounter (statuses as of 11/24/2024) Medications methADONE 10 MG Tablet Take 1 [...] (HCC) 2.5 mg NEBULIZER PRN 10/11/2022 Active Albuterol Sulfate (Proventil) (2.5 MG/3ML) 0.083% inhalation solution 2.5 mgIndications:COPD, group D, by GOLD 2017 classification (HCC) 2.5 mg NEBULIZER PRN 11/23/2024 11/23/2025 Acti ve Albuterol Sulfate (Proventil) (5 MG/ML) 0.5% *conc* inhalation solution 2.5 mgIndications:COPD, group D, by GOLD 2017 classification (HCC) 2.5 mg NEBULIZER PRN 11/23/2024 11/23/2025 Acti ve documented as of this encounter (statuses as of 11/24/2024) Active Problems Problem Noted Date Diagnosed Date [...] as of this encounter (statuses as of 11/24/2024) Resolved Problems Problem Noted Date Diagnosed Date [...] as of this encounter (statuses as of 11/24/2024) Immunizations Name Administration Dates Next Due Pneumococcal [...] Addendum Note - Huan Sanz MD - 11/23/2024 5:14 PM EDTAddended by: HUAN SANZ on: 11/23/2024 05:14 PM Modules accepted: Orders * Telephone Encounter - Huan Sanz MD - 11/23/2024 5:14 PM EDT Agree with D-dimer, 6 minute walk test and PFTs followed by expedited office follow-up evaluation. Orders placed. * Telephone Encounter - Jesenia, Brandy L, INTERNATIONAL BANKER - 11/23/2024 1:43 PM EDT Per Althea (referral management team) at [facility], pt is now using 4 LPM continuous. Pt needs updated F2F visit and updated orders to reflect current oxygen orders. She also requires current O2 sat testing to reflect. Scheduling, please contact pt to schedule appt with Dr Sanz. If Dr Sanz also orders testing, please attempt to schedule 6mw the same day (prior) to the visit. Dr Sanz, would you place order for 6MW-starting on room air and titrating-to possibly be done the same day as the visit? * Telephone Encounter - Urvashi Mendoza OSA - 11/20/2024 5:01 PM EDT [facility] called the patient and told her that they need to speak with Dr. Sanz for re cert. For oxygen and supplies. Phone number for [facility] [employer] is needs to [phone]. Thank You. documented in this encounter Plan of Treatment Upcoming Encounters Date Type Department Care Team (Late st Contact Info) Description 11/26/2024 12:30 PM EDT Imaging Radiology [facility] [address] [place] [phone] 11/26/2024 1:30 PM EDT Imaging Radiology [facility] 1st [facility] [address] [place] [phone] 12/16/2024 1:00 PM EDT Nutrition Services Nutrition, [facility] [address] [place] [address] Zari Bonilla, RDN [address] [place] [address] 12/28/2024 12:30 PM EDT Office Visit Pulmonary Medicine, [facility] [address] [place] [address] Huan Sanz MD [address] [address] 01/01/2025 11:30 AM EDT Office Visit Orthopaedics Spine Surgery [facility] [address] [place] [address] Ramirez Jorgensen MD [address] [place] [address] 05/12/2025 10:20 AM EDT Office Visit Family Practice [facility] [address] [place] [address] Roseann Plummer MD [address] [place] [address] 07/07/2025 9:00 AM EST Office Visit Gynecology/Obstetric s [facility] [address] [place] [address] Anahi Anthony CRNP [address] [place] [address] Scheduled Orders Name Type Priority Associated Diagnoses Orde r Schedule PULMONARY STRESS TESTING Procedures Routine COPD, group D, by GOLD 2017 classification ([facility]) Expected: 11/24/2024, Expires: 12/23/2025 DIFFUSION CAPACITY (DLCO) Procedures Routine COPD, group D, by GOLD 2017 classification ([facility]) Expected: 11/30/2024, Expires: 12/23/2025 NITRIC OXIDE GAS DETERMINATION Procedures Routine Cough variant asthma Eosinophilic asthma Expected: 11/30/2024, Expires: 12/23/2025 LUNG VOLUMES (PLETHYSMOGRAPHY) Procedures Routine COPD, group D, by GOLD 2017 classification ([facility]) Expected: 11/30/2024, Expires: 12/23/2025 RESPIRATORY MUSCLE PRESSURES (BUGLE PRESSURES) Procedures Routine COPD, group D, by GOLD 2017 classification ([facility]) Ordered: 11/23/2024 SPIROMETRY B/A BRONCHODILATOR Procedures Routine COPD, group D, by GOLD 2017 classification ([facility]) Expected: 11/30/2024, Expires: 12/23/2025 D-DIMER Lab Routine COPD, group D, by GOLD 2017 classification ([facility]) Expected: 11/24/2024, Expires: 11/23/2025 Health Maintenance Due Date Last Done Comments DISCUSS TOBACCO CESSATION (REFER TO SMARTSET #7888) 1965 Alpha-1 Antitrypsin 1985 Pap Smear 1988 [...] this encounter Medical Devices Implanted Type Area Behavioral Health Tech Device Identifier Shelf Expiration Date Model / Serial / Lot Shell Acet Trident Ii 50mm - [id number] Implanted:Qty: 1 on 12/05/2020 by Rodolfo Park, DO at OR [facility] Right: Hip KANDICE : ORTHOPAEDICS 09/04/2024 702-04-50D / / [id number] Trident Acetabular X3 0 36 D - [id number] Implanted:Qty: 1 on 12/05/2020 by Rodolfo Park DO at OR [facility] Right: Hip KANDICE : ORTHOPAEDICS 09/14/2025 723-00-36D / / [id number] Hip Hd Nk Alumina Md Shaheed 36/ 25 - [id number] Implanted:Qty: 1 on 12/05/2020 by Rodolfo Park DO at OR [facility] Right: Hip KANDICE : ORTHOPAEDICS 10/03/2025 6570-0-436 / / [id number] Accolade Ii 127 Deg Sz 4 - [id number] Implanted:Qty: 1 on 12/05/2020 by Rodolfo Park DO at OR [facility] Right: Hip KANDICE : ORTHOPAEDICS 11/07/2025 [id number] / / [id number] documented as of this encounter Visit Diagnoses Diagnosis Cough variant asthma- Primary Eosinophilic asthma Pulmonary eosinophilia COPD, group D, by GOLD 2017 classification ([facility]) Screening mammogram for breast cancer documented in [...] the patient have Health Care Power of Cut Off Machine Helper? Yes, not currently available Care Teams Joint Maker Machine Relationship Specialty Start Date End Date Roseann Plummer MD [address] [address] PCP - General Internal Medicine 11/05/22 documented as of this encounter
--- OUTSIDE RECORDS SUMMARY | 2024-12-01 04:16 | External Medical Summary | Summary of Care ---
Author Name Unknown Organization [facility] Address [address] [place] [address] Phone [phone] Care Team Providers Care Climbing Guide Name Role Phone Roseann Plummer MD Primary Care Provider Reason for Visit * Reason Onset Date Comments Advice 11/20/2024 Encounter Details Date Type Department Care Team ([facility] st Contact Info) Description 11/20/2024 Telephone Access Center, [place] [address] [facility] *DO NOT REMOVE THIS DEPARTMENT* [place] [address] Services, Scheduling [address] [place] [address] Advice Allergies Active Allergy Reactions Criticality Noted Date Comments Buspirone Rash 11/01/2022 documented as of this encounter (statuses as of 11/20/2024) Medications methADONE 10 MG Tablet Take 1 [...] as of this encounter (statuses as of 11/20/2024) Active Problems Problem Noted Date Diagnosed Date [...] as of this encounter (statuses as of 11/20/2024) Resolved Problems Problem Noted Date Diagnosed Date [...] as of this encounter (statuses as of 11/20/2024) Immunizations Name Administration Dates Next Due Pneumococcal [...] Mendoza OSA - 11/20/2024 5:01 PM EDT [employer] called the patient and told her that they need to speak with Dr. Branham for re cert. For oxygen and supplies. Phone number for [employer] is needs to [phone]. Thank You. documented in this encounter Plan of Treatment Upcoming Encounters Date Type Department Care Team (Late st Contact Info) Description 11/21/2024 11:00 AM EDT Office Visit Family Practice [facility] [place] [address] Samra Zhang MD [address] [facility] [place] [address] 11/26/2024 12:30 PM EDT Imaging Radiology [facility] [place] [phone] 11/26/2024 1:30 PM EDT Imaging Radiology [facility] 1st Floor, [place] [address] 12/16/2024 1:00 PM EDT Nutrition Services Nutrition, [address] [place] [address] Zari Bonilla, JOAON [address] [place] [address] 12/28/2024 12:30 PM EDT Office Visit Pulmonary Medicine, [facility] [address] [place] [phone] Huan Branham MD [address] [place] [address] 01/01/2025 11:30 AM EDT Office Visit Orthopaedics Spine Surgery [facility] [address] [place] [phone] Ramirez Jorgensen MD [address] [place] [address] 05/12/2025 10:20 AM EDT Office Visit [facility] [place] [address] Roseann Plummer MD [address] [place] [address] 07/07/2025 9:00 AM EST Office Visit Gynecology/Obstetric s [facility] [place] [address] Anahi Anthony CRNP [address] [place] [address] Health Maintenance Due Date Last Done Comments DISCUSS TOBACCO CESSATION (REFER TO SMARTSET #4548) 1965 Alpha-1 Antitrypsin 1985 Pap Smear 1988 [...] 04/25/2023, Additional history exists GFR 10/26/2025 10/26/2024, 03/, 10/24/2024, Additional history exists O2 ASSESSMENT COMPLETED [...] this encounter Medical Devices Implanted Type Area Hat Sizer Device Identifier Shelf Expiration Date Model / Serial / Lot Shell Acet Trident Ii 50mm - [id number] Implanted:Qty: 1 on 12/05/2020 by Rodolfo Park DO at OR [facility] Right: Hip KANDICE : ORTHOPAEDICS 09/04/2024 702-04-50D / / [id number] Trident Acetabular X3 0 36 D - [id number] Implanted:Qty: 1 on 12/05/2020 by Rodolfo Park DO at OR [facility] Right: Hip KANDICE : ORTHOPAEDICS 09/14/2025 723-00-36D / / [id number] Hip Hd Perry Hummel 36/ 25 - [id number] Implanted:Qty: 1 on 12/05/2020 by Rodolfo Park, DO at OR [facility] Right: Hip KANDICE : ORTHOPAEDICS 10/03/2025 6570-0-436 / / [id number] Accolade Ii 127 Deg Sz 4 - [id number] Implanted:Qty: 1 on 12/05/2020 by Rodolfo Park, DO at OR [facility] Right: Hip KANDICE : ORTHOPAEDICS 11/07/2025 9190-4686 / / [id number] documented as of this encounter Advance Directives [...] the patient have Health Care Power of Collar Pointer? Yes, not currently available Care Teams Climbing Guide Relationship Specialty Start Date End Date Roseann Plummer MD [address] [place] [address] PCP - General Internal Medicine 11/05/22 documented as of this encounter
--- OUTSIDE RECORDS SUMMARY | 2024-12-01 04:16 | External Medical Summary | Summary of Care ---
Author Name Unknown Organization [facility] Address [address] [place] [address] Phone [phone] Care Team Providers Care Fretted Instrument Repairer Name Role Phone Roseann Plummer MD Primary Care Provider Reason for Visit * Reason Onset Date Comments Advice 11/20/2024 Re: oxygen recer t Encounter Details Date Type Department Care Team (Late st Contact Info) Description 11/20/2024 Telephone Access Center, [place] [facility] [address] [facility] *DO NOT REMOVE THIS DEPARTMENT* [place] [address] Services, Scheduling [address] [place] [address] Advice (Re: oxygen recert) Allergies Active Allergy [...] * Telephone Encounter - Jesenia, Brandy L, PRINT COLOR OPERATOR - 11/23/2024 1:43 PM EDT Per Althea (referral management team) at [facility], pt is now using 4 LPM [...] Mendoza OSA - 11/20/2024 5:01 PM EDT [facility] called the patient and told her that they need to speak with Dr. Sanz for re cert. For oxygen and supplies. Phone number for [facility] [employer] is needs to [phone]. Thank You. documented in this encounter Plan of Treatment Upcoming Encounters Date Type Department Care Team (Late st Contact Info) Description 11/26/2024 12:30 PM EDT Imaging Radiology [facility] [address] [place] [phone] 11/26/2024 1:30 PM EDT Imaging Radiology [facility] 1st [facility] [address] [place] [address] 12/16/2024 1:00 PM EDT Nutrition Services Nutrition, [facility] [address] [place] [address] Zari Bonilla, RDN [address] [place] [address] 12/28/2024 12:30 PM EDT Office Visit Pulmonary Medicine, [facility] [address] [place] [address] Huan Sanz MD [address] [place] [address] 01/01/2025 11:30 AM EDT Office Visit Orthopaedics Spine Surgery [facility] [address] [place] [phone] Ramirez Jorgensen MD [address] [place] [address] 05/12/2025 10:20 AM EDT Office Visit Family Practice [facility] [address] [place] [address] Roseann Plummer MD [address] [place] [address] 07/07/2025 9:00 AM EST Office Visit Gynecology/Obstetric s [facility] [address] [place] [address] Anahi Anthony CRNP [address] [place] [address] Scheduled Orders Name Type Priority Associated Diagnoses Orde r Schedule PULMONARY STRESS TESTING Procedures Routine COPD, group D, by GOLD 2017 classification ([facility]) Expected: 11/24/2024, Expires: 12/23/2025 DIFFUSION CAPACITY (DLCO) Procedures Routine COPD, group D, by GOLD 2017 classification ([facility]) Expected: 11/30/2024, Expires: 12/23/2025 NITRIC OXIDE GAS DETERMINATION Procedures Routine Cough variant asthma Eosinophilic asthma Expected: 11/30/2024, Expires: 12/23/2025 LUNG VOLUMES (PLETHYSMOGRAPHY) Procedures Routine COPD, group D, by GOLD 2017 classification ([facility]) Expected: 11/30/2024, Expires: 12/23/2025 RESPIRATORY MUSCLE PRESSURES (BUGLE PRESSURES) Procedures Routine COPD, group D, by GOLD 2017 classification ([facility]) Ordered: 11/23/2024 SPIROMETRY B/A BRONCHODILATOR Procedures Routine COPD, group D, by GOLD 2017 classification ([facility]) Expected: 11/30/2024, Expires: 12/23/2025 D-DIMER Lab Routine COPD, group D, by GOLD 2017 classification ([facility]) Expected: 11/24/2024, Expires: 11/23/2025 Health Maintenance Due Date Last Done Comments DISCUSS TOBACCO CESSATION (REFER TO SMARTSET #6831) 1967 Alpha-1 Antitrypsin 1985 Pap Smear 1988 [...] this encounter Medical Devices Implanted Type Area Keno Terminal Operator Device Identifier Shelf Expiration Date Model / Serial / Lot Shell Acet Trident Ii 50mm - [id number] Implanted:Qty: 1 on 12/05/2020 by Rodolfo Park, DO at OR [facility] Right: Hip KANDICE : ORTHOPAEDICS 09/04/2024 702-04-50D / / [id number] Trident Acetabular X3 0 36 D - [id number] Implanted:Qty: 1 on 12/05/2020 by Rodolfo Park DO at OR [facility] Right: Hip KANDICE : ORTHOPAEDICS 09/14/2025 723-00-36D / / [id number] Hip Hd Nk Alumina Md Shaheed 36/ 25 - [id number] Implanted:Qty: 1 on 12/05/2020 by Rodolfo Park DO at OR [facility] Right: Hip KANDICE : ORTHOPAEDICS 10/03/2025 6570-0-436 / / [id number] Accolade Ii 127 Deg Sz 4 - [id number] Implanted:Qty: 1 on 12/05/2020 by Rodolfo Park DO at OR [facility] Right: Hip KANDICE : ORTHOPAEDICS 11/07/2025 [id number] / / [id number] documented as of this encounter Visit Diagnoses Diagnosis Cough variant asthma- Primary Eosinophilic asthma Pulmonary eosinophilia COPD, group D, by GOLD 2017 classification ([facility]) Screening mammogram for breast cancer documented in [...] the patient have Health Care Power of Boat Garnisher? Yes, not currently available Care Teams Fretted Instrument Repairer Relationship Specialty Start Date End Date Roseann Plummer MD [address] [place] [address] PCP - General Internal Medicine 11/05/22 documented as of this encounter
--- OUTSIDE RECORDS SUMMARY | 2024-12-01 04:16 | External Medical Summary | Summary of Care ---
Author Name Unknown Organization [facility] Address [address] [place] [address] Phone [phone] Care Team Providers Care Plastic Battery Assembler Name Role Phone Roseann Plummer MD Primary Care Provider Reason for Visit * Reason Onset Date Comments Advice 11/20/2024 Re: oxygen recer t Encounter Details Date Type Department Care Team (Late st Contact Info) Description 11/20/2024 Telephone Access Center, [place] [address] [facility] *DO NOT REMOVE THIS DEPARTMENT* [place] [address] Services, Scheduling [address] [place] [address] Advice (Re: oxygen recert) Allergies Active Allergy [...] Notes * Telephone Encounter - Misty Kaplan OSA - 11/24/2024 2:59 PM EDT Spoke with Bhumika she is very upset today as she just received word that her nephew . 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 I told her I would get her on schedule for December and watch for cancellations and reach out to her I a few days * Addendum Note - Huan Sanz MD - 11/23/2024 5:14 PM EDTAddended by: HUAN SANZ on: 11/23/2024 05:14 PM Modules accepted: Orders * Telephone Encounter - Huan Sanz MD - 11/23/2024 5:14 PM EDT Agree with D-dimer, 6 minute walk test and PFTs followed by expedited office follow-up evaluation. Orders placed. * Telephone Encounter - Brandy Ba LPN - 11/23/2024 1:43 PM EDT Per Althea (referral management team) at [facility], pt is now using 4 LPM [...] Mendoza OSA - 11/20/2024 5:01 PM EDT [facility] called the patient and told her that they need to speak with Dr. Sanz for re cert. For oxygen and supplies. [facility] is needs to [phone]. Thank You. documented in this encounter Plan of Treatment Upcoming Encounters Date Type Department Care Team (Late st Contact Info) Description 11/26/2024 12:30 PM EDT Imaging Radiology [facility] [address] [place] [phone] 11/26/2024 1:30 PM EDT Imaging Radiology [facility] 1st Floor, [place] [address] [place] [phone] 12/04/2024 3:30 PM EDT Office Visit Orthopaedics Spine Surgery [facility] [address] [place] [phone] Ramirez Jorgensen MD [address] [place] [address] 12/16/2024 1:00 PM EDT Nutrition Services Nutrition, [facility] [address] [facility] [place] [address] Zari Bonilla RDN [address] [place] [address] 12/28/2024 12:30 PM EDT Office Visit Pulmonary Medicine, [facility] [address] [place] [phone] Huan Sanz MD [address] [address] 01/14/2025 10:00 AM EDT PulmDiagnostic Pulmonary Function Lab, [facility] [address] [place] [phone] [place], [place] [address] [place] [address] 05/12/2025 10:20 AM EDT Office Visit Family Practice [facility] [place] [address] Roseann Plummer MD [address] [place] [address] 07/07/2025 9:00 AM EST Office Visit Gynecology/Obstetric s [facility] [address] [place] [address] Anahi Anthony CRNP [address] [place] [address] Scheduled Orders Name Type Priority Associated Diagnoses Orde r Schedule PULMONARY STRESS TESTING Procedures Routine COPD, group D, by GOLD 2017 classification ([facility]) Expected: 11/24/2024, Expires: 12/23/2025 DIFFUSION CAPACITY (DLCO) Procedures Routine COPD, group D, by GOLD 2017 classification ([facility]) Expected: 11/30/2024, Expires: 12/23/2025 NITRIC OXIDE GAS DETERMINATION Procedures Routine Cough variant asthma Eosinophilic asthma Expected: 11/30/2024, Expires: 12/23/2025 LUNG VOLUMES (PLETHYSMOGRAPHY) Procedures Routine COPD, group D, by GOLD 2017 classification ([facility]) Expected: 11/30/2024, Expires: 12/23/2025 RESPIRATORY MUSCLE PRESSURES (BUGLE PRESSURES) Procedures Routine COPD, group D, by GOLD 2017 classification ([facility]) Ordered: 11/23/2024 SPIROMETRY B/A BRONCHODILATOR Procedures Routine COPD, group D, by GOLD 2017 classification ([facility]) Expected: 11/30/2024, Expires: 12/23/2025 D-DIMER Lab Routine COPD, group D, by GOLD 2017 classification ([facility]) Expected: 11/24/2024, Expires: 11/23/2025 Health Maintenance Due Date Last Done Comments DISCUSS TOBACCO CESSATION (REFER TO SMARTSET #0314) 1965 Alpha-1 Antitrypsin 1985 Pap Smear 1988 [...] this encounter Medical Devices Implanted Type Area Fuel Efficient Aircraft Designer Device Identifier Shelf Expiration Date Model / Serial / Lot Shell Acet Trident Ii 50mm - [id number] Implanted:Qty: 1 on 12/05/2020 by Rodolfo Park DO at OR [facility] Right: Hip KANDICE : ORTHOPAEDICS 09/04/2024 702-04-50D / / [id number] Trident Acetabular X3 0 36 D - [id number] Implanted:Qty: 1 on 12/05/2020 by Rodolfo Park DO at OR [facility] Right: Hip KANDICE : ORTHOPAEDICS 09/14/2025 723-00-36D / / [id number] Hip Hd Nk Alumina D 36/ 25 - [id number] Implanted:Qty: 1 on 12/05/2020 by Rodolfo Park DO at OR [facility] Right: Hip KANDICE : ORTHOPAEDICS 10/03/2025 6570-0-436 / / [id number] Accolade Ii 127 Deg Sz 4 - [id number] Implanted:Qty: 1 on 12/05/2020 by Rodolfo Park DO at OR [facility] Right: Hip KANDICE : ORTHOPAEDICS 11/07/2025 [id number] / / [id number] documented as of this encounter Visit Diagnoses Diagnosis Cough variant asthma- Primary Eosinophilic asthma Pulmonary eosinophilia COPD, group D, by GOLD 2017 classification ([facility]) Screening mammogram for breast cancer documented in [...] the patient have Health Care Power of Drop Wire Operator? Yes, not currently available Care Teams Plastic Battery Assembler Relationship Specialty Start Date End Date Roseann Plummer MD [address] [place] [address] PCP - General Internal Medicine 11/05/22 documented as of this encounter
--- OUTSIDE RECORDS SUMMARY | 2024-12-01 04:16 | External Medical Summary | Summary of Care ---
Author Name Unknown Organization [facility] Address [address] [place] [address] Phone [phone] Care Team Providers Care Engineering Technician Name Role Phone Roseann Plummer MD Primary Care Provider Reason for Visit * Reason Onset Date Comments Medication Refill 11/18/2024 Encounter Details Date Type Department Care Team ([facility] st Contact Info) Description 11/12/2024 Refill Family Practice [facility] [address] [place] [address] Roseann Plummer MD [address] [place] [address] Allergies Active Allergy Reactions Criticality Noted Date [...] Notes * Telephone Encounter - Ronald Garcia RPh - 11/18/2024 3:54 PM EDT Left to follow up on [place] offer. Please transfer her back to myself. If I'm not available, transfer to next available [facility]. Thank you, Ronald Garcia, PharmD Clinical Pharmacist [facility] ([facility]) [phone] 11/18/2024, 3:55 PM * Telephone Encounter - Rajesh Segovia MD - 11/12/2024 1:45 PM EDTSigned Prescriptions: Disp Refills Eliquis 5 MG Oral Tablet (Apixaban) 180 Ta*1 Sig: TAKE ONE TABLET BY MOUTH EVERY MORNING AND TAKE ONE TABLET BY MOUTH BEFORE BEDTIMEAuthorizing Provider: RAJESH SEGOVIA * Telephone Encounter - Ronald Garcia [facility] - 11/12/2024 12:18 PM EDT Pending Prescriptions: Disp Refills Eliquis 5 MG Oral Tablet (Apixaban) 60 Tab*0 Sig: TAKE ONE TABLET BY MOUTH EVERY MORNING AND TAKE ONE TABLET BY MOUTH BEFORE BEDTIME * Telephone Encounter - Ronald Gracia [facility] - 11/12/2024 12:16 PM EDT Per admission notes (11/04/24): patient was to d/c eliqucoleman pending results of vascular study. Uncertain if medication should be refilled at this time. Please review and approve/deny as appropriate. Thank you, Ronald Garcia, PharmD Clinical Pharmacist Centralized Clinical Pharmacy Services ([facility]) [phone] 11/12/2024, 12:17 PM * Telephone Encounter - Ronald Garcia [facility] - 11/12/2024 12:11 PM EDT Pending Prescriptions: [...] date the medication was ordered: 05/18/24 Pharmacy: [facility] Is this request for a controlled [...] Description 11/26/2024 12:30 PM EDT Imaging Radiology [facility] [address] [place] [phone] 11/26/2024 1:30 PM EDT Imaging Radiology [address] [place] [address] 12/16/2024 1:00 PM EDT Nutrition Services Nutrition, [facility] [address] [place] [address] Zari Bonilla, ROBERT [address] [place] [address] 12/28/2024 12:30 PM EDT Office Visit Pulmonary Medicine, [facility] [address] [place] [phone] Huan Branham MD [address] [address] 01/01/2025 11:30 AM EDT Office Visit Orthopaedics Spine Surgery [facility] [address] [place] [phone] Ramirez Jorgensen MD [address] [place] [address] 05/12/2025 10:20 AM EDT Office Visit Family Practice [facility] [address] [place] [address] Roseann Plummer MD [address] [facility] [place] [address] 07/07/2025 9:00 AM EST Office Visit Gynecology/Obstetric s [facility] [address] [place] [address] Anahi Anthony CRNP [address] [place] [address] Health Maintenance Due Date Last Done Comments DISCUSS TOBACCO CESSATION (REFER TO SMARTSET #3431) 1965 Alpha-1 Antitrypsin 1985 Pap Smear 1988 [...] this encounter Medical Devices Implanted Type Area Strategic Partner Development Manager Device Identifier Shelf Expiration Date Model / Serial / Lot Shell Acet Trident Ii 50mm - [id number] Implanted:Qty: 1 on 12/05/2020 by Rodolfo Park DO at OR [facility] Right: Hip KANDICE : ORTHOPAEDICS 09/04/2024 702-04-50D / / [id number] Trident Acetabular X3 0 36 D - [id number] Implanted:Qty: 1 on 12/05/2020 by Rodolfo Park DO at OR [facility] Right: Hip KANDICE : ORTHOPAEDICS 09/14/2025 723-00-36D / / [id number] Hip Hd Perry Hummel - [id number] Implanted:Qty: 1 on 12/05/2020 by Rodolfo Park DO at OR [facility] Right: Hip KANDICE : ORTHOPAEDICS 10/03/2025 6570-0-436 / / [id number] Accolade Ii 127 Deg Sz - [id number] Implanted:Qty: 1 on 12/05/2020 by Rodolfo Park DO at OR [facility] Right: Hip KANDICE : ORTHOPAEDICS 11/07/2025 9221-1985 / / [id number] documented as of this encounter Advance Directives [...] the patient have Health Care Power of Materials Tech? Yes, not currently available Care Teams Engineering Technician Relationship Specialty Start Date End Date Roseann Plummer MD [address] [place] [address] [place] [address] PCP - General Internal Medicine 11/05/22 documented as of this encounter
--- OUTSIDE RECORDS SUMMARY | 2024-12-01 04:17 | External Medical Summary | Summary of Care ---
Author Name Unknown Organization [facility] Address [address] [place] [address] Phone [phone] Care Team Providers Care Rn Medical Inpatient Services Name Role Phone Roseann Plummer MD Primary Care Provider Reason for Visit * Reason Onset Date Comments Medication Refill 11/18/2024 Encounter Details Date Type Department Care Team ([facility] st Contact Info) Description 11/12/2024 Refill Family Practice [facility] [address] [place] [address] Roseann Plummer MD [address] [place] [address] Allergies Active Allergy Reactions Criticality Noted Date Comments Buspirone Rash 11/01/2022 documented as of this encounter (statuses as of 11/18/2024) Medications methADONE 10 MG Tablet Take 1 [...] mouth 70 [place] 1 025 2024 Active diazePAM 5 MG Oral Tablet (Valium)Indicatio [...] BEDTIME 180 Tablet 1 024 2024 Discontinued Hospital, Clinic, or Other Facility Administered Medication Ordered Dose Route Frequency Start Date End Date Status Albuterol Sulfate (Proventil) (2.5 MG/3ML) 0.083% inhalation solution 2.5 mgIndications:COPD, mild (HCC) 2.5 mg NEBULIZER PRN 10/11/2022 Active documented as of this encounter (statuses as of 11/18/2024) Active Problems Problem Noted Date Diagnosed Date [...] as of this encounter (statuses as of 11/18/2024) Resolved Problems Problem Noted Date Diagnosed Date [...] as of this encounter (statuses as of 11/18/2024) Immunizations Name Administration Dates Next Due Pneumococcal [...] I'm not available, transfer to next available [facility]. Thank you, Ronald Garcia, PharmD Clinical Pharmacist Centralized Clinical Pharmacy Services ([facility]) [phone] 11/18/2024, 3:55 PM * Telephone Encounter - Rajesh Segovia MD - 11/12/2024 1:45 PM EDTSigned Prescriptions: Disp Refills Eliquis 5 MG Oral Tablet (Apixaban) 180 Ta*1 Sig: TAKE ONE TABLET BY MOUTH EVERY MORNING AND TAKE ONE TABLET BY MOUTH BEFORE BEDTIMEAuthorizing Provider: RAJESH SEGOVIA * Telephone Encounter - Ronald Garcia [facility] - 11/12/2024 12:18 PM EDT Pending Prescriptions: Disp Refills Eliquis 5 MG Oral Tablet (Apixaban) 60 Tab*0 Sig: TAKE ONE TABLET BY MOUTH EVERY MORNING AND TAKE ONE TABLET BY MOUTH BEFORE BEDTIME * Telephone Encounter - Ronald Garcia [facility] - 11/12/2024 12:16 PM EDT Per admission notes (11/04/24): patient was to d/c eliqucoleman pending results of vascular study. Uncertain if medication should be refilled at this time. Please review and approve/deny as appropriate. Thank you, Ronald Garcia, PharmD Clinical Pharmacist Centralized Clinical Pharmacy Services ([facility]) [phone] 11/12/2024, 12:17 PM * Telephone Encounter - Ronald Garcia [facility] - 11/12/2024 12:11 PM EDT [...] date the medication was ordered: 05/18/24 Pharmacy: [facility] [address] [place] [address] Is this request for a controlled substance? [...] Upcoming Encounters Date Type Department Care Team ([facility] st Contact Info) Description 12/16/2024 1:00 PM EDT Nutrition Services Nutrition, [facility] [address] [place] [address] Zari Bonilla RDN [address] [place] [address] 12/28/2024 12:30 PM EDT Office Visit Pulmonary Medicine, [facility] [address] [place] [phone] Huan Branham MD [address] [address] 05/12/2025 10:20 AM EDT Office Visit Family Practice [facility] [address] [place] [address] Roseann Plummer MD [address] [place] [address] 07/07/2025 9:00 AM EST Office Visit Gynecology/Obstetrics [facility] 132 [facility] [place] [address] Anahi Anthony CRNP [address] [place] [address] Health Maintenance Due Date Last Done Comments DISCUSS TOBACCO CESSATION (REFER TO SMARTSET #3298) 1967 Alpha-1 Antitrypsin 1985 Pap Smear 1988 [...] this encounter Medical Devices Implanted Type Area Bulk Picker Device Identifier Shelf Expiration Date Model / Serial / Lot Shell Acet Trident Ii 50mm - [id number] Implanted:Qty: 1 on 12/05/2020 by Rodolfo Park DO at OR [facility] Right: Hip KANDICE : ORTHOPAEDICS 09/04/2024 702-04-50D / / [id number] Trident Acetabular X3 0 36 D - [id number] Implanted:Qty: 1 on 12/05/2020 by Rodolfo Park DO at OR [facility] Right: Hip KANDICE : ORTHOPAEDICS 09/14/2025 723-00-36D / / [id number] Hip Hd Perry Hummel 36/ 25 - [id number] Implanted:Qty: 1 on 12/05/2020 by Rodolfo Park DO at OR [facility] Right: Hip KANDICE : ORTHOPAEDICS 10/03/2025 6570-0-436 / / [id number] Accolade Ii 127 Deg Sz 4 - [id number] Implanted:Qty: 1 on 12/05/2020 by Rodolfo Park DO at OR [facility] Right: Hip KANDICE : ORTHOPAEDICS 11/07/2025 2259-4919 / / [id number] documented as of this encounter Advance Directives [...] the patient have Health Care Power of Green Inspector? Yes, not currently available Care Teams Rn Medical Inpatient Services Relationship Specialty Start Date End Date Roseann Plummer MD [address] [place] [address] PCP - General Internal Medicine 11/05/22 documented as of this encounter
--- OUTSIDE RECORDS SUMMARY | 2024-12-01 04:17 | External Medical Summary | Summary of Care ---
Author Name Unknown Organization [facility] Address [address] [place] [address] Phone [phone] Care Team Providers Care Shipping/Receiving Clerk Name Role Phone Roseann Plummer MD Primary Care Provider Encounter Details Date Type Department Care Team (Late st Contact Info) Description 11/12/2024 Refill Family Practice [facility] [address] [facility] [place] [address] Roseann Plummer MD [address] [facility] [address] Allergies Active Allergy Reactions Criticality Noted Date Comments Buspirone Rash 11/01/2022 documented as of this encounter (statuses as of 11/12/2024) Medications methADONE 10 MG Tablet Take 1 [...] 60 mL 12 5 2:38 PM EDT Active Umeclidinium-Lauren nterol 62.5-25 MCG/ACT Inhalation Aerosol [...] as of this encounter (statuses as of 11/12/2024) Active Problems Problem Noted Date Diagnosed Date [...] as of this encounter (statuses as of 11/12/2024) Resolved Problems Problem Noted Date Diagnosed Date [...] as of this encounter (statuses as of 11/12/2024) Immunizations Name Administration Dates Next Due Pneumococcal [...] No 05/20/2024 Does the household have a [facility]? (Household [...] SEGOVIA * Telephone Encounter - Ronald Garcia [facility] - 11/12/2024 12:18 PM EDT Pending Prescriptions: Disp Refills Eliquis 5 MG Oral Tablet (Apixaban) 60 Tab*0 Sig: TAKE ONE TABLET BY MOUTH EVERY MORNING AND TAKE ONE TABLET BY MOUTH BEFORE BEDTIME * Telephone Encounter - Ronald Garcia [facility] - 11/12/2024 12:16 PM EDT Per admission notes (11/04/24): patient was to d/c eliquis pending results of vascular study. Uncertain if medication should be refilled at this time. Please review and approve/deny as appropriate. Thank you, Ronald Garcia, PharmD Clinical Pharmacist [facility] ([facility]) [phone] 11/12/2024, 12:17 PM * Telephone Encounter - Ronlad Garcia [facility] - 11/12/2024 12:11 PM EDT Pending Prescriptions: [...] date the medication was ordered: 05/18/24 Pharmacy: [facility] [id number] Is this request for a controlled [...] Care Team (Late st Contact Info) Description 11/13/2024 12:30 PM EDT Imaging Radiology [facility] [address] [place] [phone] 11/13/2024 1:30 PM EDT Imaging Radiology [facility] 1st Floor, [place] [address] [place] [address] 12/16/2024 1:00 PM EDT Nutrition Services Nutrition, [facility] [address] [place] [place] [address] Zari Bonilla RDN [address] [place] [address] 12/28/2024 12:30 PM EDT Office Visit Pulmonary Medicine, [facility] [address] [place] [phone] Huan Branham MD [address] [place] [address] 05/12/2025 10:20 AM EDT Office Visit Family Practice [facility] [address] [place] [address] Roseann Plummer MD [address] [place] [address] 07/07/2025 9:00 AM EST Office Visit Gynecology/Obstetrics [facility] [address] [place] [address] Anahi Anthony CRNP [address] [place] [address] Health Maintenance Due Date Last Done Comments [...] this encounter Medical Devices Implanted Type Area Screening Tech Device Identifier Shelf Expiration Date Model / Serial / Lot Shell Acet Trident Ii 50mm - [id number] Implanted:Qty: 1 on 12/05/2020 by Rodolfo Park DO at OR [facility] Right: Hip KANDICE : ORTHOPAEDICS 09/04/2024 702-04-50D / / [id number] Trident Acetabular X3 0 36 D - [id number] Implanted:Qty: 1 on 12/05/2020 by Rodolfo Park DO at OR [facility] Right: Hip KANDICE : ORTHOPAEDICS 09/14/2025 723-00-36D / / [id number] Hip Hd Nk Alumina Md D 36/ 25 - [id number] Implanted:Qty: 1 on 12/05/2020 by Rodolfo Park DO at OR [facility] Right: Hip KANDICE : ORTHOPAEDICS 10/03/2025 6570-0-436 / / [id number] Accolade Ii 127 Deg Sz 4 - [id number] Implanted:Qty: 1 on 12/05/2020 by Rodolfo Park DO at OR [facility] Right: Hip KANDICE : ORTHOPAEDICS 11/07/2025 [id number] / / [id number] documented as of this encounter Advance Directives [...] the patient have Health Care Power of Directory Carrier? Yes, not currently available Care Teams Shipping/Receiving Clerk Relationship Specialty Start Date End Date Roseann Plummer MD [address] [place] [address] PCP - General Internal Medicine 11/05/22 documented as of this encounter
--- OUTSIDE RECORDS SUMMARY | 2024-12-01 04:17 | External Medical Summary | Summary of Care ---
Author Name Unknown Organization [facility] Address [address] [place] [address] Phone [phone] Care Team Providers Care Manufacturers Agent Name Role Phone Roseann Plummer MD Primary Care Provider Reason for Visit * Reason Onset Date Comments Medication Refill 11/18/2024 Encounter Details Date Type Department Care Team ([facility] st Contact Info) Description 11/12/2024 Refill Family Practice [facility] [address] [place] [address] Roseann Plummer MD [address] [place] [address] Allergies Active Allergy Reactions Criticality Noted Date [...] I'm not available, transfer to next available [facility]. Thank you, Ronald Garcia, PharmD Clinical Pharmacist [facility] ([facility]) [phone] 11/18/2024, 3:55 PM * Telephone Encounter - Rajesh Segovia MD - 11/12/2024 1:45 PM EDTSigned Prescriptions: Disp Refills Eliquis 5 MG Oral Tablet (Apixaban) 180 Ta*1 Sig: TAKE ONE TABLET BY MOUTH EVERY MORNING AND TAKE ONE TABLET BY MOUTH BEFORE BEDTIMEAuthorizing Provider: RAJESH SEGOVIA * Telephone Encounter - Ronald Garcia [facility] - 11/12/2024 12:18 PM EDT Pending Prescriptions: Disp Refills Eliquis 5 MG Oral Tablet (Apixaban) 60 Tab*0 Sig: TAKE ONE TABLET BY MOUTH EVERY MORNING AND TAKE ONE TABLET BY MOUTH BEFORE BEDTIME * Telephone Encounter - Ronald Garcia [facility] - 11/12/2024 12:16 PM EDT Per admission notes (11/04/24): patient was to d/c eliqucoleman pending results of vascular study. Uncertain if medication should be refilled at this time. Please review and approve/deny as appropriate. Thank you, Ronald Garcia, PharmD Clinical Pharmacist [facility] ([facility] [phone] 11/12/2024, 12:17 PM * Telephone Encounter - Ronald Garcia [facility] - 11/12/2024 12:11 PM EDT Pending Prescriptions: [...] date the medication was ordered: 05/18/24 Pharmacy: [facility] [address] [place] [address] Is this request for a controlled substance? [...] Upcoming Encounters Date Type Department Care Team ([facility] st Contact Info) Description 12/16/2024 1:00 PM EDT Nutrition Services Nutrition, [facility] [address] [place] [address] Zari Bonilla RDN [address] [place] [address] 12/28/2024 12:30 PM EDT Office Visit Pulmonary Medicine, [facility] [address] [place] [phone] Huan Branham MD [address] [place] [address] 05/12/2025 10:20 AM EDT Office Visit Family Practice [facility] [address] [place] [address] Roseann Plummer MD [address] [place] [address] 07/07/2025 9:00 AM EST Office Visit Gynecology/Obstetrics [facility] 132 [facility] [place] [address] Anahi Anthony CRNP [address] [place] [address] Health Maintenance Due Date Last Done Comments DISCUSS TOBACCO CESSATION (REFER TO SMARTSET #3299) 1965 Alpha-1 Antitrypsin 1985 Pap Smear 1988 [...] this encounter Medical Devices Implanted Type Area Boat Joiner Device Identifier Shelf Expiration Date Model / Serial / Lot Shell Acet Trident Ii 50mm - [id number] Implanted:Qty: 1 on 12/05/2020 by Rodolfo Park DO at OR [facility] Right: Hip KANDICE : ORTHOPAEDICS 09/04/2024 702-04-50D / / [id number] Trident Acetabular X3 0 36 D - [id number] Implanted:Qty: 1 on 12/05/2020 by Rodolfo Park DO at OR [facility] Right: Hip KANDICE : ORTHOPAEDICS 09/14/2025 723-00-36D / / [id number] Hip Hd Perry Hummel 36/ 25 - [id number] Implanted:Qty: 1 on 12/05/2020 by Rodolfo Park DO at OR [facility] Right: Hip KANDICE : ORTHOPAEDICS 10/03/2025 6570-0-436 / / [id number] Accolade Ii 127 Deg Sz 4 - [id number] Implanted:Qty: 1 on 12/05/2020 by Rodolfo Park DO at OR [facility] Right: Hip KANDICE : ORTHOPAEDICS 11/07/2025 4238-2339 / / [id number] documented as of this encounter Advance Directives [...] the patient have Health Care Power of Head Shipper? Yes, not currently available Care Teams Manufacturers Agent Relationship Specialty Start Date End Date Roseann Plummer MD [address] [place] [address] PCP - General Internal Medicine 11/05/22 documented as of this encounter
--- OUTSIDE RECORDS SUMMARY | 2024-12-01 04:17 | External Medical Summary | Summary of Care ---
Author Name Unknown Organization [facility] Address [address] [place] [address] Phone [phone] Care Team Providers Care Training Professional Name Role Phone Roseann Plummer MD Primary Care Provider Reason for Visit * Reason Onset Date Comments Medication Refill 11/12/2024 Encounter Details Date Type Department Care Team ([facility] st Contact Info) Description 11/12/2024 Refill Family Practice [facility] [address] [employer] [facility] [place] [address] Roseann Plummer MD [address] [place] [address] Allergies Active Allergy Reactions Criticality Noted Date [...] nebulizer in the morning. 60 mL 12 10/29/19 25 2:38 PM EDT 025 Active Umeclidinium-Lauren nterol 62.5-25 MCG/ACT Inhalation Aerosol Powder Breath Activated (ANORO ellipta) Inhale 1 Puff by mouth in the morning. 60 Each 12 10/29/19 25 2:38 PM EDT 025 Active Additional Information Patient not taking.Reported on 11/04/2024 Thiamine HCl 100 MG Oral Tablet (vitamin B-1) Take 1 Tablet by mouth in the morning. 30 Tablet 3 10/29/19 25 2:38 PM EDT 025 Active Sertraline HCl 50 MG Oral Tablet (Zoloft) Take 2 Tablets by mouth in the morning. 60 Tablet 3 10/29/19 25 2:38 PM EDT 025 Active Additional Information [...] BEDTIME 180 Tablet 1 024 2024 Discontinued hydrOXYzine HCl 25 MG Oral Tablet Take 1 Tablet by mouth 3 times a day as needed. 2024 Discontinued(R efill) Hospital, Clinic, or Other Facility Administered Medication [...] EDT Sexual Orientation Choose not to disclose 03/30/ 2023 12:12 AM EDT documented as of this encounter Functional Status * Are you deaf or do you have serious difficulty hearing? Answer Date of Assessment Author No 12/05/2020 2:35 PM EDT Alok Rodriguez RN * Are you blind or [...] Miscellaneous Notes * Telephone Encounter - Rajesh Nicole MD - 11/12/2024 1:45 PM EDTSigned Prescriptions: Disp Refills hydrOXYzine HCl 25 MG Oral Tablet 30 Tab*5 Sig: Take 1 Tablet bymouth 3 times a day as needed for Anxiety.Authorizing Provider: ROJAS ALAN * Telephone Encounter - Jesse Blanco CMA - 11/12/2024 11:29 AM EDTPending Prescriptions: Disp Refills hydrOXYzine HCl 25 MG Oral Tablet 30 Tab* Sig: Take 1 Tablet by mouth 3 times a day as needed. * Telephone Encounter - Latrice Dunlap OSA - 11/12/2024 11:18 AM EDT Did you pend patient's preferred pharmacy and medication before forwarding?yes Pharmacy: [facility] [address] Pending Prescriptions: Disp Refills hydrOXYzine HCl 25 MG Oral Tablet 30 Tab* Sig: Take 1 Tablet by mouth 3 times a day as needed. Last Visit: 11/04/2024 (in office), Visit date not found (telemedicine) Next Visit: 05/12/2025 If no future appointments scheduled, and last appointment is greater than a year ago, please schedule patient for a follow-up appointment Last date the medication was ordered: 09/08/24 Is this request for a controlled substance?No Urine Drug Screen:No results found. However, due [...] Description 11/13/2024 12:30 PM EDT Imaging Radiology [facility] [address] [place] [phone] 11/13/2024 1:30 PM EDT [facility] [address] [place] [phone] 12/16/2024 1:00 PM EDT Nutrition Services Nutrition, [facility] [address] [facility] [place] [address] Zari Bonilla RDN [address] [place] [address] 12/28/2024 12:30 PM EDT Office Visit Pulmonary Medicine, [facility] [address] [place] [phone] Huan Branham MD [address] [facility] [place] [address] 05/12/2025 10:20 AM EDT Office Visit Family Practice [facility] [address] [facility] [place] [address] Roseann Plummer MD [address] [place] [address] 07/07/2025 9:00 AM EST Office Visit Gynecology/[facility]stetrics [facility] [place] [address] Anahi Anthony CRNP [address] [place] [address] Health Maintenance Due Date Last Done Comments DISCUSS TOBACCO CESSATION (REFER TO SMARTSET #3416) 1965 Alpha-1 Antitrypsin 1985 Pap Smear 1988 [...] this encounter Medical Devices Implanted Type Area Vice President Pharmacy Device Identifier Shelf Expiration Date Model / Serial / Lot Shell Acet Trident Ii 50mm - [id number] Implanted:Qty: 1 on 12/05/2020 by Rodolfo Park, DO at OR [facility] Right: Hip KANDICE : ORTHOPAEDICS 09/04/2024 702-04-50D / / [id number] Trident Acetabular X3 0 36 D - [id number] Implanted:Qty: 1 on 12/05/2020 by Rodolfo Park DO at OR [facility] Right: Hip KANDICE : ORTHOPAEDICS 09/14/2025 723-00-36D / / [id number] Hip Hd Nk Gavin Pino D 36/ 25 - [id number] Implanted:Qty: 1 on 12/05/2020 by Rodolfo Park DO at OR [facility] Right: Hip KANDICE : ORTHOPAEDICS 10/03/2025 6570-0-436 / / [id number] Accolade Ii 127 Deg Sz 4 - [id number] Implanted:Qty: 1 on 12/05/2020 by Rodolfo Park DO at OR [facility] Right: Hip KANDICE : ORTHOPAEDICS 11/07/2025 3439-0881 / / [id number] documented as of this encounter Advance Directives [...] the patient have Health Care Power of Postal Service Clerk? Yes, not currently available Care Teams Training Professional Relationship Specialty Start Date End Date Roseann Plummer MD 132 [facility] [place] [address] PCP - General Internal Medicine 11/05/22 documented as of this encounter
[2024-12-01] MEDS: LORazepam 2 MG/1 ML VIAL IV PRN (06:16)
[2024-12-01] MEDS: FOLIC ACID 1 MG TAB PO SCH (08:40)
[2024-12-01] MEDS: THIAMINE HCL 100 MG TAB PO SCH (08:40)
[2024-12-01] MEDS: amLODIPine BESYLATE 5 MG TAB PO SCH (08:40)
[2024-12-01] MEDS: METOPROLOL SUCC 25MG EXT REL TAB PO SCH (08:40)
[2024-12-01] MEDS: DOXYCYCLINE HYCLATE 100 MG CAP PO SCH (08:40)
[2024-12-01] MEDS: MULTIVITAMIN TAB PO SCH (08:41)
[2024-12-01] MEDS: predniSONE 20 MG TAB PO SCH (08:41)
[2024-12-01] MEDS: FAMOTIDINE 20 MG TAB PO SCH (08:42)
[2024-12-01] MEDS: PATIENT'S OWN CONTROLLED MED 1 PO SCH (08:43)
[2024-12-01] MEDS: METHADONE ORAL SOLN 2 MG/ML PO SCH (08:43)
--- NOTE | 2024-12-01 12:09 | Hospitalist Progress Note ---
Date of Service December 01, 2024 Assessment & Plan (1) Acute and chronic respiratory failure with hypercapnia: Plan: Acute on chronic respiratory failure with hypercapnia Acute exacerbation of COPD Likely complicated bronchitis Patient presents with worsening shortness of breath and increasing cough for the last few days Admitting CXR with no acute finding, admitting BNP 92, admitting VBG with hypercapnia. Patient started on doxycycline, prednisone, Nebs. Continue. WBC trending down. Flu screen negative. Patient reports improvement in her cough frequency and reports the sputum getting more clear. Patient reports she utilizes 4 L oxygen at baseline, currently at baseline. Reports feeling better, continue to monitor. History of diastolic dysfunction: Decompensated heart failure ruled out, BNP normal, no pulmonary edema on x-ray, no crackles/BLE edema on exam, echo with normal ejection fraction 60 to 65%, left ventricular systolic function is normal. Mildly elevated pulmonary arterial systolic pressure. Continue with home furosemide. Possible sleep apnea as per outpatient pulm note from 2022, likely OHS given chronic hypercapnia Consider sleep study upon discharge. Other chronic medical conditions: Continue with/resume home meds as and when able. hypertension, stable hx PE on Eliquis chronic anemia, hemoglobin at baseline chronic pain on methadone anxiety/mood disorder, at baseline ongoing alcohol and tobacco abuse, IWONA is protocol. DVT prophylaxis. Factorliquis Full code Text document was generated using [employer] voice recognition software. It may contain grammatical or spelling errors. Kindly contact undersigned for clarification of any documentation item in question. Admission and Anticipated Discharge Date Admission Date: November 30, 2024 Subjective Patient was seen and examined at bedside. Patient was lying in bed, on 4 L oxygen via nasal cannula, NAD, resting comfortably. Patient reports improving cough and getting more clear sputum now. Patient reports feeling better. Patient reports eating okay and moving bowels okay. Physical Exam Physical Exam: GENERAL: Comfortable, obese, no respiratory distress, 4L NC O2 SKIN: Normal color, warm HEENT: [place] palpebral conjunctivae, no ptosis, moist buccal mucosa NECK : Supple, short neck, no tenderness CHEST :b/l Decreased breath sounds, occ b/l wheezes, no tenderness HEART : RRR, no obvious murmurs ABDOMEN: Some distention, nontender EXTREMITIES : -ve ble edema, palpable pulses, no other conspicuous deformities noted NEUROLOGIC : Coherent, no facial asymmetry, no other gross focality Results & Data Results & Data Vital Signs (Past 12 Hours) Vital Signs Temp Pulse Pulse Resp BP BP Pulse Ox 12/01/24 11:17 36.6 C 80 20 107/56 L 93 12/01/24 07:55 12/01/24 07:26 73 18 94 12/01/24 07:20 36.5 C 75 18 111/66 93 12/01/24 07:20 68 12/01/24 06:11 36.6 C 79 18 123/96 91 12/01/24 04:52 36.6 C 66 18 114/63 91 12/01/24 04:16 68 114/63 12/01/24 01:38 71 18 95 12/01/24 01:00 12/01/24 00:37 82 12/01/24 00:28 36.8 C 83 18 163/70 H 93 12/01/24 00:28 93 12/01/24 00:25 36.8 C 83 18 163/70 H 93 O2 Del Method O2 Flow Rate 12/01/24 11:17 Nasal Cannula 4 12/01/24 07:55 Nasal Cannula 4 12/01/24 07:26 Nasal Cannula 4 12/01/24 07:20 Nasal Cannula 4 12/01/24 07:20 12/01/24 06:11 Nasal Cannula 4 12/01/24 04:52 Nasal Cannula 4 12/01/24 04:16 12/01/24 01:38 Nasal Cannula 4 12/01/24 01:00 Nasal Cannula 4 12/01/24 00:37 12/01/24 00:28 Nasal Cannula 4 12/01/24 00:28 Nasal Cannula 4 12/01/24 00:25 Nasal Cannula 4
[2024-12-01] MEDS: POTASSIUM CHLORIDE CRTAB 20 MEQ TABCR PO SCH (20:18)
[2024-12-01] MEDS: MAGNESIUM OXIDE 400 MG TAB PO SCH (20:18)
[2024-12-02] MEDS ORDERED: Ativan IV Alcohol Withdrawal--Active Protocol IV PRN (00:51)
[2024-12-02] MEDS ORDERED: GABAPENTIN 1200MG ALCOHOL WITHDRAWAL LOAD PO STA (00:51)
[2024-12-02] MEDS ORDERED: LORazepam 2 MG/1 ML VIAL IV PRN (00:51)
[2024-12-02] MEDS: LORazepam 2 MG/1 ML VIAL IV PRN ×2 (01:10→18:31)
[2024-12-02] MEDS ORDERED: chlordiazePOXIDE ALCOHOL WITHDRAWL 25MG PO STA (01:19)
[2024-12-02] MEDS: chlordiazePOXIDE HCl 25 MG CAP PO SCH (01:35)
[2024-12-02] MEDS: GABAPENTIN 600 MG TAB PO ONE (03:11)
[2024-12-02 06:14] LABS: Hematocrit (blood only) 34.5 % (37.0-47.0); Hemoglobin 10.8 g/dl (12.0-16.0); Mean Corpuscular Hemoglobin 29.8 pg (25.0-34.0); Mean Corpuscular Hgb Conc 31.3 g/dL (32.0-36.0); Mean Corpuscular Volume 95.3 fL (80.0-100.0); Mean Platelet Volume 10.1 fL (9.4-12.4); Platelet Count 185 K/uL (130-400); RDW Coefficient of Variation 14.2 % (11.5-14.5); RDW Standard Deviation 49.4 fL (36.4-46.3); Red Blood Count 3.62 M/uL (4.20-5.40); White Blood Count 10.04 K/ul (4.8-10.8)
[2024-12-02 06:45] LABS: Calcium 8.9 mg/dl (8.6-10.3); Potassium 4.2 mmol/L (3.5-5.1)
[2024-12-02 06:50] LABS: BUN Creatinine Ratio 16.3 (10-20); Creatinine Clr Calc Pharmacy 61.4 ml/min
[2024-12-02] MEDS ORDERED: GABAPENTIN 600 MG TAB PO SCH ×2 (07:00→21:00)
[2024-12-02] MEDS: FUROSEMIDE 40 MG TAB PO SCH (08:32)
--- NOTE | 2024-12-02 13:21 | Hospitalist Progress Note ---
Date of Service December 02, 2024 Assessment & Plan (1) Acute and chronic respiratory failure with hypercapnia: Plan: Acute on chronic respiratory failure with hypercapnia Acute exacerbation of COPD Likely complicated bronchitis Patient presents with worsening shortness of breath and increasing cough for the last few days Admitting CXR with no acute finding, admitting BNP 92, admitting VBG with hypercapnia. Patient started on doxycycline, prednisone, Nebs. Continue. WBC trending down. Flu screen negative. Clinically much better with minimal or no respiratory symptoms Has been saturating normally on room air at rest Will continue current management Alcohol abuse Ongoing alcohol and tobacco abuse, IWONA is protocol. Has been having withdrawal symptoms and requiring chlordiazepoxide and occasional Ativan Still has significant tremors on outstretched hands History of diastolic dysfunction: Decompensated heart failure ruled out, BNP normal, no pulmonary edema on x-ray, no crackles/BLE edema on exam, echo with normal ejection fraction 60 to 65%, left ventricular systolic function is normal. Mildly elevated pulmonary arterial systolic pressure. Continue with home furosemide. denies any symptoms of volume overload Possible sleep apnea as per outpatient pulm note from 2022, likely OHS given chronic hypercapnia Consider sleep study upon discharge. Other chronic medical conditions: Continue with/resume home meds as and when able. hypertension, stable hx PE on Eliquis chronic anemia, hemoglobin at baseline chronic pain on methadone anxiety/mood disorder, at baseline DVT prophylaxis. Eliquis Full code Text document was generated using [employer] voice recognition software. It may contain grammatical or spelling errors. Kindly contact undersigned for clarification of any documentation item in question. Admission and Anticipated Discharge Date Admission Date: November 30, 2024 Subjective 12/02/2024 The patient was seen and examined telemetry unit She has had acute withdrawal symptoms last night and required additional dose of intravenous lorazepam She has been weak and lethargic and a bit depressed Still has significant tremors of the outstretched hands Denies any other significant symptoms Review of Systems Review of Systems: All systems reviewed and unremarkable except as noted below Physical Exam Physical Exam: Lying in bed without any acute distress Constitutional: well developed, well nourished, + ill appearing and + obese Eyes: PERRL, conjunctivae normal, anicteric sclerae ENMT: external ear and nose normal, oropharynx normal Neck: trachea midline, no thyromegaly Respiratory: no respiratory distress Auscultation: lungs clear to auscultation bilaterally Cardiovascular: Rate/Rhythm: regular rate and regular rhythm; not tachycardic Heart Sounds: normal S1 and normal S2; no murmur Extremities: + edema ( trace edema bilaterally) Gastrointestinal (Abdomen): Inspection/Auscultation: normal bowel sounds; abdomen not distended Percussion/Palpation: abdomen soft; abdomen nontender Musculoskeletal: No acute arthritis involving any of the joint Neurologic: normal touch/pain/proprioception and moves all extremities; no focal motor deficits Lymphatic: no cervical or axillary lymphadenopathy Results & Data Results & Data Vital Signs (Past 12 Hours) Vital Signs Temp Pulse Pulse Resp BP Pulse Ox O2 Del Method 12/02/24 10:47 37 C 74 18 120/70 95 Nasal Cannula 12/02/24 08:00 Nasal Cannula 12/02/24 07:43 36.6 C 84 20 117/54 L 94 Nasal Cannula 12/02/24 07:03 71 19 93 Room Air 12/02/24 03:02 36.5 C 77 20 121/69 97 Nasal Cannula 12/02/24 01:44 77 O2 Flow Rate 12/02/24 10:47 4 12/02/24 08:00 4 12/02/24 07:43 4.0 12/02/24 07:03 12/02/24 03:02 12/02/24 01:44 Laboratory Results Short CBC 12/02/24 Range/Units 05:47 WBC 10.04 (4.8-10.8) K/ul Hgb 10.8 L (12.0-16.0) g/dl Hct 34.5 L (37.0-47.0) % Plt Count 185 (130-400) K/uL BMP 12/02/24 05:47 Sodium 138 Potassium 4.2 Chloride 97 L Carbon Dioxide 37 H BUN 21 Creatinine 1.29 H D Glucose 139 H Calcium 8.9 Medications Administered Current Inpatient Medications Acetaminophen (Acetaminophen 325 Mg Tab) 650 mg PO QID PRN PRN Reason: pain/fever Stop: 12/30/24 23:45 Amlodipine Besylate (Amlodipine Besylate 5 Mg Tab) 10 mg PO QAM [facility] Stop: 12/31/24 08:59 Last Admin: 12/02/24 08:27 Dose: 10 mg Apixaban (Apixaban 5 Mg Tablet) 5 mg PO AMHS [facility] Stop: 12/30/24 23:49 Last Admin: 12/02/24 08:27 Dose: 5 mg Chlordiazepoxide HCl (Chlordiazepoxide Hcl 25 Mg Cap) 25 mg PO Q8H [facility] Stop: 12/03/24 22:01 Chlordiazepoxide HCl (Chlordiazepoxide Hcl 25 Mg Cap) 25 mg PO Q6H [facility] Stop: 12/02/24 19:31 Last Admin: 12/02/24 13:03 Dose: 25 mg Chlordiazepoxide HCl (Chlordiazepoxide Hcl 10 Mg Cap) 10 mg PO Q8H [facility] Stop: 12/04/24 22:01 Chlordiazepoxide HCl (Chlordiazepoxide Hcl 5 Mg Cap) 5 mg PO Q12H [facility] Stop: 12/05/24 22:01 Doxycycline Hyclate (Doxycycline Hyclate 100 Mg Cap) 100 mg PO BID [facility] Stop: 12/06/24 08:59 Last Admin: 12/02/24 08:27 Dose: 100 mg Famotidine (Famotidine 20 Mg Tab) 20 mg PO AMHS [facility] Stop: 12/31/24 08:59 Last Admin: 12/02/24 08:36 Dose: 20 mg Folic Acid (Folic Acid 1 Mg Tab) 1 mg PO QAM [facility] Stop: 12/31/24 08:59 Last Admin: 12/02/24 08:32 Dose: 1 mg Furosemide (Furosemide 40 Mg Tab) 40 mg PO QAM [facility] Stop: 01/01/25 08:59 Last Admin: 12/02/24 08:32 Dose: 40 mg Hydroxyzine HCl (Hydroxyzine Hcl 25 Mg Tab) 25 mg PO TID PRN PRN Reason: Anxiety Stop: 12/30/24 23:46 Last Admin: 12/02/24 13:03 Dose: 25 mg Promethazine HCl (Phenergan) 12.5 mg in 50.5 mls @ 202 mls/hr IV Q6H PRN PRN Reason: Nausea And Vomiting Stop: 12/30/24 23:45 Ipratropium [place] (Ipratropium [place] Neb Soln 0.02% 0.5mg/2.5ml Vial) 0.5 mg INH Q6R [facility] Stop: 12/31/24 00:00 Last Admin: 12/02/24 13:20 Dose: 0.5 mg Levalbuterol HCl (Levalbuterol 1.25 Mg/3 Ml Neb) 1.25 mg NEB Q6R [facility] Stop: 12/31/24 00:00 Last Admin: 12/02/24 13:20 Dose: 1.25 mg Lorazepam (Lorazepam 2 Mg/1 Ml Vial) 1 mg IV UD PRN; Protocol PRN Reason: EtOH Withdrawal AWSS Score 6,7 Stop: 01/01/25 00:50 Lorazepam (Lorazepam 2 Mg/1 Ml Vial) 2 mg IV UD PRN; Protocol PRN Reason: EtOH Withdrawal AWSS Score 8,9 Stop: 01/01/25 00:50 Last Admin: 12/02/24 01:10 Dose: 2 mg Lorazepam (Lorazepam 2 Mg/1 Ml Vial) 3 mg IV ONCE PRN; Protocol PRN Reason: EtOH Withdrawal AWSS Score 10+ Magnesium Oxide (Magnesium Oxide 400 Mg Tab) 800 mg PO [facility] Stop: 12/31/24 20:59 Last Admin: 12/01/24 20:18 Dose: 800 mg Methadone HCl (Methadone Oral Soln 2 Mg/Ml) 100 mg PO QAM [facility] Stop: 12/15/24 08:59 Last Admin: 12/02/24 08:25 Dose: 100 mg Metoprolol Succinate (Metoprolol Succ 25mg Ext Rel Tab) 12.5 mg PO AMHS [facility] Stop: 12/31/24 08:59 Last Admin: 12/02/24 08:30 Dose: 12.5 mg Miscellaneous (Remove Nicoderm Patch) 1 each N/A DAILY@2058 [facility] Stop: 12/31/24 20:58 Last Admin: 12/01/24 20:19 Dose: 1 each Multivitamins (Multivitamin Tab) 1 tab PO QAM [facility] Stop: 12/31/24 08:59 Last Admin: 12/02/24 08:31 Dose: 1 tab Nicotine (Nicotine 14 Mg/24 Hr Patch) 1 patch TD [facility] Stop: 12/30/24 23:49 Last Admin: 12/01/24 20:20 Dose: 1 patch Non-Formulary Medication (Patient's Own Controlled Med 1) 1 each PO DAILY [facility] Stop: 12/15/24 08:59 Last Admin: 12/02/24 08:25 Dose: 1 ea Pantoprazole Sodium (Pantoprazole 40 Mg Tab) 40 mg PO BID [facility] Stop: 12/30/24 23:44 Last Admin: 12/02/24 08:30 Dose: 40 mg Potassium Chloride (Potassium Chloride Crtab 20 Meq Tabcr) 20 meq PO AMHS [facility] Stop: 12/31/24 20:59 Last Admin: 12/02/24 08:25 Dose: 20 meq Prednisone (Prednisone 20 Mg Tab) 40 mg PO DAILY [facility] Stop: 12/05/24 08:59 Last Admin: 12/02/24 08:30 Dose: 40 mg Thiamine HCl (Thiamine Hcl 100 Mg Tab) 100 mg PO QAM [facility] Stop: 12/31/24 08:59 Last Admin: 12/02/24 08:30 Dose: 100 mg
[2024-12-02] MEDS: PROMETHAZINE 12.5 MG/50.5 ML BAG IV PRN (19:48)
--- NOTE | 2024-12-02 21:51 | Electrocardiogram Report ---
Test Reason : Blood Pressure : */* mmHG Vent. Rate : 81 BPM Atrial Rate : 81 BPM P-R Int : 124 ms QRS Dur : 88 ms QT Int : 396 ms P-R-T Axes : 41 65 58 degrees QTcB Int : 460 ms Sinus rhythm When compared with ECG of 10-Nov-2024 18:59, No significant change was found Confirmed by Rocael Dill ([id number]) on 12/02/2024 9:51:19 PM Referred By: REFERRED SELF Confirmed By: Rocael Dill
[2024-12-03] MEDS: chlordiazePOXIDE HCl 25 MG CAP PO SCH (05:21)
[2024-12-03] MEDS: LEVALBUTEROL 1.25 MG/3 ML NEB NEB PRN (05:25)
[2024-12-03 07:47] LABS: BUN Creatinine Ratio 23.8 (10-20); Creatinine Clr Calc Pharmacy 75.8 ml/min; Magnesium 2.1 mg/dl (1.7-2.4); Phosphorus 3.5 mg/dl (2.5-4.9); Potassium 4.6 mmol/L (3.5-5.1)
--- NOTE | 2024-12-03 10:58 | Hospitalist Progress Note ---
Date of Service December 03, 2024 Assessment & Plan (1) Acute and chronic respiratory failure with hypercapnia: Plan: Acute on chronic respiratory failure with hypercapnia Acute exacerbation of COPD Likely complicated bronchitis Patient presents with worsening shortness of breath and increasing cough for the last few days Admitting CXR with no acute finding, admitting BNP 92, admitting VBG with hypercapnia. Patient started on doxycycline, prednisone, Nebs. Continue. WBC trending down. Flu screen negative. Clinically much better with minimal or no respiratory symptoms Has been saturating normally on room air at rest Will continue current management Denies any shortness of breath at rest and has been saturating normally on 4 L which is seems to be her baseline Will get PT and OT evaluation prior to discharge Alcohol abuse Ongoing alcohol and tobacco abuse, IWONA is protocol. Has been having withdrawal symptoms and requiring chlordiazepoxide and occasional Ativan Still has significant tremors on outstretched hands Still has significant tremors of the outstretched hands and requiring occasional doses of IV Ativan History of diastolic dysfunction: Decompensated heart failure ruled out, BNP normal, no pulmonary edema on x-ray, no crackles/BLE edema on exam, echo with normal ejection fraction 60 to 65%, left ventricular systolic function is normal. Mildly elevated pulmonary arterial systolic pressure. Continue with home furosemide. denies any symptoms of volume overload Possible sleep apnea as per outpatient pulm note from 2022, likely OHS given chronic hypercapnia Consider sleep study upon discharge. Other chronic medical conditions: Continue with/resume home meds as and when able. hypertension, stable hx PE on Eliquis chronic anemia, hemoglobin at baseline chronic pain on methadone anxiety/mood disorder, at baseline DVT prophylaxis. Eliquis Full code Text document was generated using [employer] voice recognition software. It may contain grammatical or spelling errors. Kindly contact undersigned for clarification of any documentation item in question. Admission and Anticipated Discharge Date Admission Date: November 30, 2024 Subjective 12/02/2024 The patient was seen and examined telemetry unit She has had acute withdrawal symptoms last night and required additional dose of intravenous lorazepam She has been weak and lethargic and a bit depressed Still has significant tremors of the outstretched hands Denies any other significant symptoms 12/03/2024 Patient was seen and examined in telemetry unit She still has significant tremors and remains generally weak Denies any cardiac symptoms and has been saturating normally on 4 L nasal cannula Review of Systems Review of Systems: All systems reviewed and unremarkable except as noted below Physical Exam Physical Exam: Lying in bed without any acute distress Constitutional: well developed, well nourished, + ill appearing and + obese Eyes: PERRL, conjunctivae normal, anicteric sclerae ENMT: external ear and nose normal, oropharynx normal Neck: trachea midline, no thyromegaly Respiratory: no respiratory distress Auscultation: lungs clear to auscultation bilaterally Cardiovascular: Rate/Rhythm: regular rate and regular rhythm; not tachycardic Heart Sounds: normal S1 and normal S2; no murmur Extremities: + edema ( trace edema bilaterally) Gastrointestinal (Abdomen): Inspection/Auscultation: normal bowel sounds; abdomen not distended Percussion/Palpation: abdomen soft; abdomen nontender Musculoskeletal: no acute arthritis involving any of the joints Neurologic: normal touch/pain/proprioception and moves all extremities; no focal motor deficits Significant tremors with outstretched hands Lymphatic: no cervical or axillary lymphadenopathy Results & Data Results & Data Vital Signs (Past 12 Hours) Vital Signs Temp Pulse Pulse Resp BP Pulse Ox O2 Del Method 12/03/24 07:59 36.8 C 84 24 132/72 91 Nasal Cannula 12/03/24 07:14 68 95 Nasal Cannula 12/03/24 05:26 75 24 94 Nasal Cannula 12/03/24 02:59 36.6 C 72 20 119/73 95 Nasal Cannula 12/02/24 23:51 75 12/02/24 23:16 36.7 C 78 20 137/72 90 Nasal Cannula O2 Flow Rate 12/03/24 07:59 4 12/03/24 07:14 3 12/03/24 05:26 3 12/03/24 02:59 12/02/24 23:51 12/02/24 23:16 Laboratory Results [facility] 12/03/24 06:54 Sodium 139 Potassium 4.6 Chloride 99 Carbon Dioxide 36 H BUN 25 H Creatinine 1.05 Glucose 121 H Calcium 9.0 Medications Administered Current Inpatient Medications Acetaminophen (Acetaminophen 325 Mg Tab) 650 mg PO QID PRN PRN Reason: pain/fever Stop: 12/30/24 23:45 Amlodipine Besylate ([facility] 5 Mg Tab) [facility]: 12/31/24 08:59 Last Admin: 12/03/24 08:13 Dose: 10 mg Apixaban (Apixaban 5 Mg Tablet) 5 mg PO AMHS [facility] Stop: 12/30/24 23:49 Last Admin: 12/03/24 08:15 Dose: 5 mg Chlordiazepoxide HCl (Chlordiazepoxide Hcl 25 Mg Cap) 25 mg PO Q8H [facility] Stop: 12/03/24 22:01 Last Admin: 12/03/24 05:21 Dose: 25 mg Chlordiazepoxide HCl (Chlordiazepoxide Hcl 10 Mg Cap) 10 mg PO Q8H [facility] Stop: 12/04/24 22:01 Chlordiazepoxide HCl (Chlordiazepoxide Hcl 5 Mg Cap) 5 mg PO Q12H [facility] Stop: 12/05/24 22:01 Doxycycline Hyclate (Doxycycline Hyclate 100 Mg Cap) 100 mg PO BID [facility] Stop: 12/06/24 08:59 Last Admin: 12/03/24 08:20 Dose: 100 mg Famotidine (Famotidine 20 Mg Tab) 20 mg PO [facility] Stop: 12/31/24 08:59 Last Admin: 12/03/24 08:19 Dose: 20 mg Folic Acid (Folic Acid 1 Mg Tab) 1 mg PO QAM [facility] Stop: 12/31/24 08:59 Last Admin: 12/03/24 08:20 Dose: 1 mg Furosemide (Furosemide 40 Mg Tab) 40 mg PO QAM [facility] Stop: 01/01/25 08:59 Last Admin: 12/03/24 08:12 Dose: 40 mg Hydroxyzine HCl (Hydroxyzine Hcl 25 Mg Tab) 25 mg PO TID PRN PRN Reason: Anxiety Stop: 12/30/24 23:46 Last Admin: 12/03/24 08:02 Dose: 25 mg Promethazine HCl (Phenergan) 12.5 mg in 50.5 mls @ 202 mls/hr IV Q6H PRN PRN Reason: Nausea And Vomiting Stop: 12/30/24 23:45 Last Infusion: 12/02/24 20:22 Dose: Infused Ipratropium [place] (Ipratropium [place] Neb Soln 0.02% 0.5mg/2.5ml Vial) 0.5 mg INH Q6R [facility] Stop: 12/31/24 00:00 Last Admin: 12/03/24 07:10 Dose: 0.5 mg Levalbuterol HCl (Levalbuterol 1.25 Mg/3 Ml Neb) 1.25 mg NEB Q6R [facility] Stop: 12/31/24 00:00 Last Admin: 12/03/24 07:13 Dose: 1.25 mg Levalbuterol HCl (Levalbuterol 1.25 Mg/3 Ml Neb) 1.25 mg NEB Q4H PRN PRN Reason: Shortness Of Breath Or Wheezing Stop: 01/02/25 05:08 Last Admin: 12/03/24 05:25 Dose: 1.25 mg Lorazepam (Lorazepam 2 Mg/1 Ml Vial) 1 mg IV UD PRN; Protocol PRN Reason: EtOH Withdrawal AWSS Score 6,7 Stop: 01/01/25 00:50 Last Admin: 12/03/24 08:05 Dose: 1 mg Lorazepam (Lorazepam 2 Mg/1 Ml Vial) 2 mg IV UD PRN; Protocol PRN Reason: EtOH Withdrawal AWSS Score 8,9 Stop: 01/01/25 00:50 Last Admin: 12/02/24 01:10 Dose: 2 mg Lorazepam (Lorazepam 2 Mg/1 Ml Vial) 3 mg IV ONCE PRN; Protocol PRN Reason: EtOH Withdrawal AWSS Score 10+ Magnesium Oxide (Magnesium Oxide 400 Mg Tab) 800 mg PO HS [facility] Stop: 12/31/24 20:59 Last Admin: 12/02/24 20:35 Dose: 800 mg Methadone HCl (Methadone Oral Soln 2 Mg/Ml) 100 mg PO QAM [facility] Stop: 12/15/24 08:59 Last Admin: 12/03/24 08:21 Dose: 100 mg Metoprolol Succinate (Metoprolol Succ 25mg Ext Rel Tab) 12.5 mg PO AMHS [facility] Stop: 12/31/24 08:59 Last Admin: 12/03/24 08:20 Dose: 12.5 mg Miscellaneous (Remove Nicoderm Patch) 1 each N/A DAILY@2058 [facility] Stop: 12/31/24 20:58 Last Admin: 12/02/24 20:38 Dose: Not Given Multivitamins (Multivitamin Tab) 1 tab PO QAM [facility] Stop: 12/31/24 08:59 Last Admin: 12/03/24 08:15 Dose: 1 tab Nicotine (Nicotine 14 Mg/24 Hr Patch) 1 patch TD [facility] Stop: 12/30/24 23:49 Last Admin: 12/02/24 20:37 Dose: Not Given Non-Formulary Medication (Patient's Own Controlled Med 1) 1 each PO DAILY [facility] Stop: 12/15/24 08:59 Last Admin: 12/03/24 08:20 Dose: 100 ea Pantoprazole Sodium (Pantoprazole 40 Mg Tab) 40 mg PO BID [facility] Stop: 12/30/24 23:44 Last Admin: 12/03/24 08:20 Dose: 40 mg Potassium Chloride (Potassium Chloride Crtab 20 Meq Tabcr) 20 meq PO AMHS [facility] Stop: 12/31/24 20:59 Last Admin: 12/03/24 08:20 Dose: 20 meq Prednisone (Prednisone 20 Mg Tab) 40 mg PO DAILY [facility] Stop: 12/05/24 08:59 Last Admin: 12/03/24 08:21 Dose: 40 mg Thiamine HCl (Thiamine Hcl 100 Mg Tab) 100 mg PO QAM [facility] Stop: 12/31/24 08:59 Last Admin: 12/03/24 08:21 Dose: 100 mg
[2024-12-03] MEDS: ACETAMINOPHEN 325 MG TAB PO PRN (14:25)
[2024-12-04] MEDS ORDERED: GABAPENTIN 600 MG TAB PO SCH (01:00)
--- NOTE | 2024-12-04 10:53 | Hospitalist Progress Note ---
Date of Service December 04, 2024 Assessment & Plan (1) Acute and chronic respiratory failure with hypercapnia: Plan: Acute on chronic respiratory failure with hypercapnia Acute exacerbation of COPD Likely complicated bronchitis Patient presents with worsening shortness of breath and increasing cough for the last few days Admitting CXR with no acute finding, admitting BNP 92, admitting VBG with hypercapnia. Patient started on doxycycline, prednisone, Nebs. Continue. WBC trending down. Flu screen negative. Clinically much better with minimal or no respiratory symptoms Has been saturating normally on room air at rest Will continue current management Denies any shortness of breath at rest and has been saturating normally on 4 L which is seems to be her baseline Will get PT and OT evaluation prior to discharge Has had PT evaluation as per patient and recommended home She denies any respiratory symptoms and like to be discharged in 2 to 3 days Alcohol abuse Ongoing alcohol and tobacco abuse, IWONA is protocol. Has been having withdrawal symptoms and requiring chlordiazepoxide and occasional Ativan Still has significant tremors on outstretched hands Still has significant tremors of the outstretched hands and requiring occasional doses of IV Ativan Still having significant tremors Will continue current management and continue with PT and OT Chronic pain on methadone Patient cannot be discharged over the weekend as methadone clinic is closed and she does not have any more methadone at home Will continue current management and likely discharge on Saturday History of diastolic dysfunction: Decompensated heart failure ruled out, BNP normal, no pulmonary edema on x-ray, no crackles/BLE edema on exam, echo with normal ejection fraction 60 to 65%, left ventricular systolic function is normal. Mildly elevated pulmonary arterial systolic pressure. Continue with home furosemide. denies any symptoms of volume overload Possible sleep apnea as per outpatient pulm note from 2022, likely OHS given chronic hypercapnia Consider sleep study upon discharge. Other chronic medical conditions: Continue with/resume home meds as and when able. hypertension, stable hx PE on Eliquis chronic anemia, hemoglobin at baseline chronic pain on methadone anxiety/mood disorder, at baseline DVT prophylaxis. Eliquis Full code Text document was generated using [employer] voice recognition software. It may contain grammatical or spelling errors. Kindly contact undersigned for clarification of any documentation item in question. Admission and Anticipated Discharge Date Admission Date: November 30, 2024 Subjective 12/02/2024 The patient was seen and examined telemetry unit She has had acute withdrawal symptoms last night and required additional dose of intravenous lorazepam She has been weak and lethargic and a bit depressed Still has significant tremors of the outstretched hands Denies any other significant symptoms 12/03/2024 Patient was seen and examined in telemetry unit She still has significant tremors and remains generally weak Denies any cardiac symptoms and has been saturating normally on 4 L nasal cannula 12/04/2024 The patient was seen and examined in telemetry unit She has been feeling better but is still not yet ready to be discharged Has significant tremors with outstretched hands Review of Systems Review of Systems: All systems reviewed and unremarkable except as noted below Physical Exam Physical Exam: Lying in bed without any acute distress Constitutional: well developed, well nourished, + ill appearing and + obese Eyes: PERRL, conjunctivae normal, anicteric sclerae ENMT: external ear and nose normal, oropharynx normal Neck: trachea midline, no thyromegaly Respiratory: no respiratory distress Auscultation: lungs clear to auscultation bilaterally Cardiovascular: Rate/Rhythm: regular rate and regular rhythm; not tachycardic Heart Sounds: normal S1 and normal S2; no murmur Extremities: + edema ( trace edema bilaterally) Gastrointestinal (Abdomen): Inspection/Auscultation: normal bowel sounds; abdomen not distended Percussion/Palpation: abdomen soft; abdomen nontender Neurologic: normal touch/pain/proprioception and moves all extremities; no focal motor deficits Lymphatic: no cervical or axillary lymphadenopathy Results & Data Results & Data Vital Signs (Past 12 Hours) Vital Signs Temp Pulse Pulse Resp BP BP Pulse Ox 12/04/24 09:00 67 12/04/24 08:20 36.8 C 77 24 126/68 93 12/04/24 06:19 70 26 H 97 12/04/24 03:53 36.3 C L 67 18 136/60 93 12/03/24 23:12 64 12/03/24 23:12 O2 Del Method O2 Flow Rate 12/04/24 09:00 12/04/24 08:20 Nasal Cannula 4 12/04/24 06:19 Nasal Cannula 4 12/04/24 03:53 Nasal Cannula 4.0 12/03/24 23:12 12/03/24 23:12 Nasal Cannula 4 Medications Administered Current Inpatient Medications Acetaminophen (Acetaminophen 325 Mg Tab) 650 mg PO QID PRN PRN Reason: pain/fever Stop: 12/30/24 23:45 Last Admin: 12/03/24 14:25 Dose: 650 mg Amlodipine Besylate (Amlodipine Besylate 5 Mg Tab) [facility] [place] Stop: 12/31/24 08:59 Last Admin: 12/04/24 08:35 Dose: 10 mg Apixaban (Apixaban 5 Mg Tablet) 5 mg PO [facility] Stop: 12/30/24 23:49 Last Admin: 12/04/24 08:36 Dose: 5 mg Chlordiazepoxide HCl (Chlordiazepoxide Hcl 10 Mg Cap) 10 mg PO Q8H [facility] Stop: 12/04/24 22:01 Last Admin: 12/04/24 05:35 Dose: 10 mg Chlordiazepoxide HCl (Chlordiazepoxide Hcl 5 Mg Cap) 5 mg PO Q12H [facility] Stop: 12/05/24 22:01 Doxycycline Hyclate (Doxycycline Hyclate 100 Mg Cap) 100 mg PO BID [facility] Stop: 12/06/24 08:59 Last Admin: 12/04/24 08:35 Dose: 100 mg Famotidine (Famotidine 20 Mg Tab) 20 mg PO [facility] Stop: 12/31/24 08:59 Last Admin: 12/04/24 08:34 Dose: 20 mg Folic Acid (Folic Acid 1 Mg Tab) [facility] [place] Stop: 12/31/24 08:59 Last Admin: 12/04/24 08:36 Dose: 1 mg Furosemide (Furosemide 40 Mg Tab) [facility] [place] Stop: 01/01/25 08:59 Last Admin: 12/04/24 08:37 Dose: 40 mg Hydroxyzine HCl (Hydroxyzine Hcl 25 Mg Tab) 25 mg PO TID PRN PRN Reason: Anxiety Stop: 12/30/24 23:46 Last Admin: 12/04/24 04:23 Dose: 25 mg Promethazine HCl (Phenergan) 12.5 mg in 50.5 mls @ 202 mls/hr IV Q6H PRN PRN Reason: Nausea And Vomiting Stop: 12/30/24 23:45 Last Infusion: 12/03/24 18:05 Dose: Infused Ipratropium [place] (Ipratropium [place] Neb Soln 0.02% 0.5mg/2.5ml Vial) 0.5 mg INH Q6R [facility] Stop: 12/31/24 00:00 Last Admin: 12/04/24 06:18 Dose: 0.5 mg Levalbuterol HCl (Levalbuterol 1.25 Mg/3 Ml Neb) 1.25 mg NEB Q6R [facility] Stop: 12/31/24 00:00 Last Admin: 12/04/24 06:18 Dose: 1.25 mg Levalbuterol HCl (Levalbuterol 1.25 Mg/3 Ml Neb) 1.25 mg NEB Q4H PRN PRN Reason: Shortness Of Breath Or Wheezing Stop: 01/02/25 05:08 Last Admin: 12/03/24 05:25 Dose: 1.25 mg Lorazepam (Lorazepam 2 Mg/1 Ml Vial) 1 mg IV UD PRN; Protocol PRN Reason: EtOH Withdrawal AWSS Score 6,7 Stop: 01/01/25 00:50 Last Admin: 12/04/24 08:46 Dose: 1 mg Lorazepam (Lorazepam 2 Mg/1 Ml Vial) 2 mg IV UD PRN; Protocol PRN Reason: EtOH Withdrawal AWSS Score 8,9 Stop: 01/01/25 00:50 Last Admin: 12/03/24 11:59 Dose: 2 mg Lorazepam (Lorazepam 2 Mg/1 Ml Vial) 3 mg IV ONCE PRN; Protocol PRN Reason: EtOH Withdrawal AWSS Score 10+ Magnesium Oxide (Magnesium Oxide 400 Mg Tab) 800 mg PO HS [facility] Stop: 12/31/24 20:59 Last Admin: 12/03/24 20:02 Dose: 800 mg Methadone HCl (Methadone Oral Soln 2 Mg/Ml) 100 mg PO QAM [facility] Stop: 12/15/24 08:59 Last Admin: 12/04/24 08:33 Dose: 100 mg Metoprolol Succinate (Metoprolol Succ 25mg Ext Rel Tab) 12.5 mg PO AMHS [facility] Stop: 12/31/24 08:59 Last Admin: 12/04/24 08:37 Dose: 12.5 mg Miscellaneous (Remove Nicoderm Patch) 1 each N/A DAILY@2058 [facility] Stop: 12/31/24 20:58 Last Admin: 12/03/24 20:00 Dose: 1 each Multivitamins (Multivitamin Tab) 1 tab PO QAM [facility] Stop: 12/31/24 08:59 Last Admin: 12/04/24 08:34 Dose: 1 tab Nicotine (Nicotine 14 Mg/24 Hr Patch) 1 patch TD HS [facility] Stop: 12/30/24 23:49 Last Admin: 12/03/24 20:01 Dose: 1 patch Non-Formulary Medication (Patient's Own Controlled Med 1) 1 each PO DAILY [facility] Stop: 12/15/24 08:59 Last Admin: 12/04/24 08:33 Dose: 100 ea Pantoprazole Sodium (Pantoprazole 40 Mg Tab) 40 mg PO BID [facility] Stop: 12/30/24 23:44 Last Admin: 12/04/24 08:35 Dose: 40 mg Potassium Chloride (Potassium Chloride Crtab 20 Meq Tabcr) 20 meq PO AMHS [facility] Stop: 12/31/24 20:59 Last Admin: 12/04/24 08:34 Dose: 20 meq Prednisone (Prednisone 20 Mg Tab) 40 mg PO DAILY [facility] Stop: 12/05/24 08:59 Last Admin: 12/04/24 08:35 Dose: 40 mg Thiamine HCl (Thiamine Hcl 100 Mg Tab) 100 mg PO QAM [facility] Stop: 12/31/24 08:59 Last Admin: 12/04/24 08:37 Dose: 100 mg
[2024-12-05] MEDS: chlordiazePOXIDE HCl 5 MG CAP PO SCH (09:21)
--- NOTE | 2024-12-05 11:14 | Hospitalist Progress Note ---
Date of Service December 05, 2024 Assessment & Plan (1) Acute and chronic respiratory failure with hypercapnia: Plan: Acute on chronic respiratory failure with hypercapnia Acute exacerbation of COPD Likely complicated bronchitis Patient presents with worsening shortness of breath and increasing cough for the last few days Admitting CXR with no acute finding, admitting BNP 92, admitting VBG with hypercapnia. Patient started on doxycycline, prednisone, Nebs. Continue. WBC trending down. Flu screen negative. Clinically much better with minimal or no respiratory symptoms Has been saturating normally on room air at rest Will continue current management Denies any shortness of breath at rest and has been saturating normally on 4 L which is seems to be her baseline Will get PT and OT evaluation prior to discharge Has had PT evaluation as per patient and recommended home She denies any respiratory symptoms and like to be discharged in 2 to 3 days Remains medically stable without any significant symptoms except tremors involving the hands Will be discharged home on Saturday Alcohol abuse Ongoing alcohol and tobacco abuse, IWONA is protocol. Has been having withdrawal symptoms and requiring chlordiazepoxide and occasional Ativan Still has significant tremors on outstretched hands Still has significant tremors of the outstretched hands and requiring occasional doses of IV Ativan Still having significant tremors Will continue current management and continue with PT and OT Has minimal tremors in the outstretched hands and is still remains anxious Likely discharge on Saturday Chronic pain on methadone Patient cannot be discharged over the weekend as methadone clinic is closed and she does not have any more methadone at home Will continue current management and likely discharge on Saturday History of diastolic dysfunction: Decompensated heart failure ruled out, BNP normal, no pulmonary edema on x-ray, no crackles/BLE edema on exam, echo with normal ejection fraction 60 to 65%, left ventricular systolic function is normal. Mildly elevated pulmonary arterial systolic pressure. Continue with home furosemide. denies any symptoms of volume overload Possible sleep apnea as per outpatient pulm note from 2022, likely OHS given chronic hypercapnia Consider sleep study upon discharge. Other chronic medical conditions: Continue with/resume home meds as and when able. hypertension, stable hx PE on Eliquis chronic anemia, hemoglobin at baseline chronic pain on methadone anxiety/mood disorder, at baseline DVT prophylaxis. Eliquis Full code Text document was generated using [employer] voice recognition software. It may contain grammatical or spelling errors. Kindly contact undersigned for clarification of any documentation item in question. Admission and Anticipated Discharge Date Admission Date: November 30, 2024 Subjective 12/02/2024 The patient was seen and examined telemetry unit She has had acute withdrawal symptoms last night and required additional dose of intravenous lorazepam She has been weak and lethargic and a bit depressed Still has significant tremors of the outstretched hands Denies any other significant symptoms 12/03/2024 Patient was seen and examined in telemetry unit She still has significant tremors and remains generally weak Denies any cardiac symptoms and has been saturating normally on 4 L nasal cannula 12/04/2024 The patient was seen and examined in telemetry unit She has been feeling better but is still not yet ready to be discharged Has significant tremors with outstretched hands 12/05/2024 The patient was seen and examined in telemetry unit She has been feeling much better with decreasing tremors Denies any other significant symptoms Likely to be discharged on Saturday Review of Systems Review of Systems: All systems reviewed and unremarkable except as noted below Physical Exam Physical Exam: Lying in bed without any acute distress Constitutional: well developed, well nourished, + ill appearing and + obese Eyes: PERRL, conjunctivae normal, anicteric sclerae ENMT: external ear and nose normal, oropharynx normal Neck: trachea midline, no thyromegaly Respiratory: no respiratory distress Auscultation: lungs clear to auscultation bilaterally Cardiovascular: Rate/Rhythm: regular rate and regular rhythm; not tachycardic Heart Sounds: normal S1 and normal S2; no murmur Extremities: + edema ( trace edema bilaterally) Gastrointestinal (Abdomen): Inspection/Auscultation: normal bowel sounds; abdomen not distended Percussion/Palpation: abdomen soft; abdomen nontender Neurologic: normal touch/pain/proprioception and moves all extremities; no focal motor deficits Minimal tremors involving the outstretched hands Lymphatic: no cervical or axillary lymphadenopathy Results & Data Results & Data Vital Signs (Past 12 Hours) Vital Signs Temp Pulse Pulse Resp BP BP Pulse Ox 12/05/24 08:00 36.4 C L 74 18 119/72 94 12/05/24 07:07 76 22 12/05/24 03:00 36.5 C 68 18 113/82 91 12/05/24 01:45 75 12/05/24 00:35 12/04/24 23:14 36.6 C 75 18 140/76 94 O2 Del Method O2 Flow Rate 12/05/24 08:00 Nasal Cannula 4 12/05/24 07:07 12/05/24 03:00 Nasal Cannula 4 12/05/24 01:45 12/05/24 00:35 Nasal Cannula 4 12/04/24 23:14 Nasal Cannula 2 Medications Administered Current Inpatient Medications Acetaminophen (Acetaminophen 325 Mg Tab) 650 mg PO QID PRN PRN Reason: pain/fever Stop: 12/30/24 23:45 Last Admin: 12/04/24 16:10 Dose: 650 mg Amlodipine Besylate (Amlodipine Besylate 5 Mg Tab) 10 mg PO QAM [facility] Stop: 12/31/24 08:59 Last Admin: 12/05/24 09:24 Dose: 10 mg Apixaban (Apixaban 5 Mg Tablet) 5 mg PO AMHS [facility] Stop: 12/30/24 23:49 Last Admin: 12/05/24 09:23 Dose: 5 mg Chlordiazepoxide HCl (Chlordiazepoxide Hcl 5 Mg Cap) 5 mg PO Q12H [facility] Stop: 12/05/24 22:01 Last Admin: 12/05/24 09:21 Dose: 5 mg Doxycycline Hyclate (Doxycycline Hyclate 100 Mg Cap) 100 mg PO BID [facility] Stop: 12/06/24 08:59 Last Admin: 12/05/24 09:22 Dose: 100 mg Famotidine (Famotidine 20 Mg Tab) 20 mg PO AMHS [facility] Stop: 12/31/24 08:59 Last Admin: 12/05/24 09:27 Dose: 20 mg Folic Acid (Folic Acid 1 Mg Tab) 1 mg PO QAM [facility] Stop: 12/31/24 08:59 Last Admin: 12/05/24 09:24 Dose: 1 mg Furosemide (Furosemide 40 Mg Tab) 40 mg PO QAM [facility] Stop: 01/01/25 08:59 Last Admin: 12/05/24 09:23 Dose: 40 mg Hydroxyzine HCl (Hydroxyzine Hcl 25 Mg Tab) 25 mg PO TID PRN PRN Reason: Anxiety Stop: 12/30/24 23:46 Last Admin: 12/05/24 09:26 Dose: 25 mg Promethazine HCl (Phenergan) 12.5 mg in 50.5 mls @ 202 mls/hr IV Q6H PRN PRN Reason: Nausea And Vomiting Stop: 12/30/24 23:45 Last Infusion: 12/03/24 18:05 Dose: Infused Ipratropium [place] (Ipratropium [place] Neb Soln 0.02% 0.5mg/2.5ml Vial) 0.5 mg INH Q6R [facility] Stop: 12/31/24 00:00 Last Admin: 12/05/24 07:05 Dose: 0.5 mg Levalbuterol HCl (Levalbuterol 1.25 Mg/3 Ml Neb) 1.25 mg NEB Q6R [facility] Stop: 12/31/24 00:00 Last Admin: 12/05/24 07:05 Dose: 1.25 mg Levalbuterol HCl (Levalbuterol 1.25 Mg/3 Ml Neb) 1.25 mg NEB Q4H PRN PRN Reason: Shortness Of Breath Or Wheezing Stop: 01/02/25 05:08 Last Admin: 12/03/24 05:25 Dose: 1.25 mg Lorazepam (Lorazepam 2 Mg/1 Ml Vial) 1 mg IV UD PRN; Protocol PRN Reason: EtOH Withdrawal AWSS Score 6,7 Stop: 01/01/25 00:50 Last Admin: 12/05/24 10:02 Dose: 1 mg Lorazepam (Lorazepam 2 Mg/1 Ml Vial) 2 mg IV UD PRN; Protocol PRN Reason: EtOH Withdrawal AWSS Score 8,9 Stop: 01/01/25 00:50 Last Admin: 12/03/24 11:59 Dose: 2 mg Lorazepam (Lorazepam 2 Mg/1 Ml Vial) 3 mg IV ONCE PRN; Protocol PRN Reason: EtOH Withdrawal AWSS Score 10+ Magnesium Oxide (Magnesium Oxide 400 Mg Tab) 800 mg PO HS [facility] Stop: 12/31/24 20:59 Last Admin: 12/04/24 21:08 Dose: 800 mg Methadone HCl (Methadone Oral Soln 2 Mg/Ml) 100 mg PO QAM [facility] Stop: 12/15/24 08:59 Last Admin: 12/05/24 09:21 Dose: 100 mg Metoprolol Succinate (Metoprolol Succ 25mg Ext Rel Tab) 12.5 mg PO AMHS [facility] Stop: 12/31/24 08:59 Last Admin: 12/05/24 09:23 Dose: 12.5 mg Miscellaneous (Remove Nicoderm Patch) 1 each N/A DAILY@2058 [facility] Stop: 12/31/24 20:58 Last Admin: 12/04/24 20:04 Dose: 1 each Multivitamins (Multivitamin Tab) 1 tab PO QAM [facility] Stop: 12/31/24 08:59 Last Admin: 12/05/24 09:23 Dose: 1 tab Nicotine (Nicotine 14 Mg/24 Hr Patch) 1 patch TD HS [facility] Stop: 12/30/24 23:49 Last Admin: 12/04/24 20:03 Dose: 1 patch Non-Formulary Medication (Patient's Own Controlled Med 1) 1 each PO DAILY [facility] Stop: 12/15/24 08:59 Last Admin: 12/05/24 09:35 Dose: Not Given Pantoprazole Sodium (Pantoprazole 40 Mg Tab) 40 mg PO BID [facility] Stop: 12/30/24 23:44 Last Admin: 12/05/24 09:23 Dose: 40 mg Potassium Chloride (Potassium Chloride Crtab 20 Meq Tabcr) 20 meq PO AMHS [facility] Stop: 12/31/24 20:59 Last Admin: 12/05/24 09:21 Dose: 20 meq Thiamine HCl (Thiamine Hcl 100 Mg Tab) 100 mg PO QAM [facility] Stop: 12/31/24 08:59 Last Admin: 12/05/24 09:59 Dose: 100 mg
[2024-12-05] MEDS ORDERED: GABAPENTIN 600 MG TAB PO SCH (13:00)
[2024-12-06] MEDS: LORazepam 2 MG/1 ML VIAL IV STA (11:44)
--- NOTE | 2024-12-06 13:52 | Hospitalist Progress Note ---
Date of Service December 06, 2024 Assessment & Plan (1) Acute and chronic respiratory failure with hypercapnia: Plan: Acute on chronic respiratory failure with hypercapnia Acute exacerbation of COPD Likely complicated bronchitis Patient presents with worsening shortness of breath and increasing cough for the last few days Admitting CXR with no acute finding, admitting BNP 92, admitting VBG with hypercapnia. Patient started on doxycycline, prednisone, Nebs. Continue. WBC trending down. Flu screen negative. Clinically much better with minimal or no respiratory symptoms Has been saturating normally on room air at rest Will continue current management Denies any shortness of breath at rest and has been saturating normally on 4 L which is seems to be her baseline Will get PT and OT evaluation prior to discharge Has had PT evaluation as per patient and recommended home She denies any respiratory symptoms and like to be discharged in 2 to 3 days Remains medically stable without any significant symptoms except tremors involving the hands Will be discharged home on Saturday Her respiratory status remains stable and requiring 4 L through nasal cannula to maintain saturation which is her baseline Alcohol abuse Ongoing alcohol and tobacco abuse, IWONA is protocol. Has been having withdrawal symptoms and requiring chlordiazepoxide and occasional Ativan Still has significant tremors on outstretched hands Still has significant tremors of the outstretched hands and requiring occasional doses of IV Ativan Still having significant tremors Will continue current management and continue with PT and OT Has minimal tremors in the outstretched hands and is still remains anxious Likely discharge on Saturday She has been going through emotional trauma secondary to loss of her niece recently Chronic pain on methadone Patient cannot be discharged over the weekend as methadone clinic is closed and she does not have any more methadone at home Will continue current management and likely discharge on Saturday History of diastolic dysfunction: Decompensated heart failure ruled out, BNP normal, no pulmonary edema on x-ray, no crackles/BLE edema on exam, echo with normal ejection fraction 60 to 65%, lef t ventricular systolic function is normal. Mildly elevated pulmonary arterial systolic pressure. Continue with home furosemide. denies any symptoms of volume overload Possible sleep apnea as per outpatient pulm note from 2022, likely OHS given chronic hypercapnia Consider sleep study upon discharge. Other chronic medical conditions: Continue with/resume home meds as and when able. hypertension, stable hx PE on Eliquis chronic anemia, hemoglobin at baseline chronic pain on methadone anxiety/mood disorder, at baseline DVT prophylaxis. Eliquis Full code Text document was generated using [employer] voice recognition software. It may contain grammatical or spelling errors. Kindly contact undersigned for clarification of any documentation item in question. Admission and Anticipated Discharge Date Admission Date: November 30, 2024 Subjective 12/02/2024 The patient was seen and examined telemetry unit She has had acute withdrawal symptoms last night and required additional dose of intravenous lorazepam She has been weak and lethargic and a bit depressed Still has significant tremors of the outstretched hands Denies any other significant symptoms 12/03/2024 Patient was seen and examined in telemetry unit She still has significant tremors and remains generally weak Denies any cardiac symptoms and has been saturating normally on 4 L nasal cannula 12/04/2024 The patient was seen and examined in telemetry unit She has been feeling better but is still not yet ready to be discharged Has significant tremors with outstretched hands 12/05/2024 The patient was seen and examined in telemetry unit She has been feeling much better with decreasing tremors Denies any other significant symptoms Likely to be discharged on Saturday12/06/2024 The patient was seen and examined in medical floor She is very depressed and has significant tremor with activities and at rest Going through the emotional trauma for recent loss of her family members Possible discharge tomorrow Review of Systems Review of Systems: All systems reviewed and unremarkable except as noted below Physical Exam Physical Exam: Lying in bed without any acute distress Constitutional: well developed, well nourished, + ill appearing and + obese Eyes: PERRL, conjunctivae normal, anicteric sclerae ENMT: external ear and nose normal, oropharynx normal Neck: trachea midline, no thyromegaly Respiratory: no respiratory distress Auscultation: lungs clear to auscultation bilaterally Cardiovascular: Rate/Rhythm: regular rate and regular rhythm; not tachycardic Heart Sounds: normal S1 and normal S2; no murmur Extremities: + edema ( trace edema bilaterally) Gastrointestinal (Abdomen): Inspection/Auscultation: normal bowel sounds; abdomen not distended Percussion/Palpation: abdomen soft; abdomen nontender Neurologic: normal touch/pain/proprioception and moves all extremities; no focal motor deficits Lymphatic: no cervical or axillary lymphadenopathy Results & Data Results & Data Vital Signs (Past 12 Hours) Vital Signs Temp Pulse Resp BP BP Pulse Ox O2 Del Method 12/06/24 13:09 70 18 92 Nasal Cannula 12/06/24 11:15 37.0 C 96 H 14 130/65 91 Nasal Cannula 12/06/24 07:52 36.8 C 74 18 116/54 L 91 Nasal Cannula 12/06/24 07:01 74 18 94 Nasal Cannula O2 Flow Rate 12/06/24 13:09 4 12/06/24 11:15 4 12/06/24 07:52 4 12/06/24 07:01 4 Medications Administered Current Inpatient Medications Acetaminophen (Acetaminophen 325 Mg Tab) 650 mg PO QID PRN PRN Reason: pain/fever Stop: 12/30/24 23:45 Last Admin: 12/04/24 16:10 Dose: 650 mg Amlodipine Besylate (Amlodipine Besylate 5 Mg Tab) [address] [facility] Stop: 12/31/24 08:59 Last Admin: 12/06/24 08:12 Dose: 10 mg Apixaban (Apixaban 5 Mg Tablet) 5 mg PO [facility] Stop: 12/30/24 23:49 Last Admin: 12/06/24 08:13 Dose: 5 mg Famotidine (Famotidine 20 Mg Tab) 20 mg PO [facility] Stop: 12/31/24 08:59 Last Admin: 12/06/24 08:12 Dose: 20 mg Folic Acid (Folic Acid 1 Mg Tab) [address] [facility] Stop: 12/31/24 08:59 Last Admin: 12/06/24 08:13 Dose: 1 mg Furosemide (Furosemide 40 Mg Tab) [address] [facility] Stop: 01/01/25 08:59 Last Admin: 12/06/24 08:13 Dose: 40 mg Hydroxyzine HCl (Hydroxyzine Hcl 25 Mg Tab) 25 mg PO TID PRN PRN Reason: Anxiety Stop: 12/30/24 23:46 Last Admin: 12/06/24 08:13 Dose: 25 mg Promethazine HCl (Phenergan) 12.5 mg in 50.5 mls @ 202 mls/hr IV Q6H PRN PRN Reason: Nausea And Vomiting Stop: 12/30/24 23:45 Last Infusion: 12/03/24 18:05 Dose: Infused Ipratropium [place] (Ipratropium [place] Neb Soln 0.02% 0.5mg/2.5ml Vial) 0.5 mg INH Q6R [facility] Stop: 12/31/24 00:00 Last Admin: 12/06/24 13:08 Dose: 0.5 mg Levalbuterol HCl (Levalbuterol 1.25 Mg/3 Ml Neb) 1.25 mg NEB Q6R [facility] Stop: 12/31/24 00:00 Last Admin: 12/06/24 13:08 Dose: 1.25 mg Levalbuterol HCl (Levalbuterol 1.25 Mg/3 Ml Neb) 1.25 mg NEB Q4H PRN PRN Reason: Shortness Of Breath Or Wheezing Stop: 01/02/25 05:08 Last Admin: 12/03/24 05:25 Dose: 1.25 mg Lorazepam (Lorazepam 2 Mg/1 Ml Vial) 1 mg IV UD PRN; Protocol PRN Reason: EtOH Withdrawal AWSS Score 6,7 Stop: 01/01/25 00:50 Last Admin: 12/06/24 05:56 Dose: 1 mg Magnesium Oxide (Magnesium Oxide 400 Mg Tab) 800 mg PO [facility] Stop: 12/31/24 20:59 Last Admin: 12/05/24 20:38 Dose: 800 mg Methadone HCl (Methadone Oral Soln 2 Mg/Ml) 100 mg PO QAM [facility] Stop: 12/15/24 08:59 Last Admin: 12/06/24 08:36 Dose: 100 mg Metoprolol Succinate (Metoprolol Succ 25mg Ext Rel Tab) 12.5 mg PO AMHS [facility] Stop: 12/31/24 08:59 Last Admin: 12/06/24 08:12 Dose: 12.5 mg Miscellaneous (Remove Nicoderm Patch) 1 each N/A DAILY@2058 [facility] Stop: 12/31/24 20:58 Last Admin: 12/05/24 20:46 Dose: 1 each Multivitamins (Multivitamin Tab) 1 tab PO QAM [facility] Stop: 12/31/24 08:59 Last Admin: 12/06/24 08:12 Dose: 1 tab Nicotine (Nicotine 14 Mg/24 Hr Patch) 1 patch TD [facility] Stop: 12/30/24 23:49 Last Admin: 12/05/24 20:38 Dose: 1 patch Non-Formulary Medication (Patient's Own Controlled Med 1) 1 each PO DAILY [facility] Stop: 12/15/24 08:59 Last Admin: 12/06/24 08:38 Dose: 50 ml Pantoprazole Sodium (Pantoprazole 40 Mg Tab) 40 mg PO BID [facility] Stop: 12/30/24 23:44 Last Admin: 12/06/24 08:13 Dose: 40 mg Potassium Chloride (Potassium Chloride Crtab 20 Meq Tabcr) 20 meq PO AMHS [facility] Stop: 12/31/24 20:59 Last Admin: 12/06/24 08:12 Dose: 20 meq Thiamine HCl (Thiamine Hcl 100 Mg Tab) 100 mg PO QAM [facility] Stop: 12/31/24 08:59 Last Admin: 12/06/24 08:13 Dose: 100 mg
[2024-12-07] MEDS: CALCIUM CARBONATE 500 MG CHEWABLE TAB PO STA (00:54)
[2024-12-07 08:36] LABS: Basophils # (auto) 0.05 K/uL (0.00-0.20); Basophils % (auto) 0.5 %; Eosinophils # (auto) 0.11 K/uL (0.00-0.50); Hematocrit (blood only) 37.4 % (37.0-47.0); Hemoglobin 11.5 g/dl (12.0-16.0); Immature Granulocytes # (auto) 0.42 K/uL (0.01-0.20); Immature Granulocytes % (auto) 3.9 %; Lymphocytes # (auto) 1.09 K/uL (1.20-3.40); Mean Corpuscular Hemoglobin 30.1 pg (25.0-34.0); Mean Corpuscular Hgb Conc 30.7 g/dL (32.0-36.0); Mean Corpuscular Volume 97.9 fL (80.0-100.0); Mean Platelet Volume 9.7 fL (9.4-12.4); Monocytes # (auto) 0.72 K/uL (0.11-0.59); Monocytes % (auto) 6.6 %; Platelet Count 201 K/uL (130-400); RDW Coefficient of Variation 13.6 % (11.5-14.5); RDW Standard Deviation 49.1 fL (36.4-46.3); Red Blood Count 3.82 M/uL (4.20-5.40); White Blood Count 10.89 K/ul (4.8-10.8)
[2024-12-07 08:55] LABS: Anion Gap -1 (3-11); BUN Creatinine Ratio 20.8 (10-20); Blood Urea Nitrogen 22 mg/dl (6-23); Calcium 9.4 mg/dl (8.6-10.3); Carbon Dioxide 43 mmol/L (21-32); Chloride 96 mmol/L (98-107); Creatinine Clr Calc Pharmacy 74.6 ml/min; Glucose 151 mg/dl (70-99(Fasting)); Magnesium 2.2 mg/dl (1.7-2.4); Phosphorus 3.6 mg/dl (2.5-4.9); Sodium 138 mmol/L (136-145)
--- NOTE | 2024-12-07 10:17 | Hospitalist Progress Note ---
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 Acute on chronic respiratory failure with hypercapnia Acute exacerbation of COPD Likely complicated bronchitis Patient presented to ED on 11/30 with worsening SOB and increasing cough for a few days Admitting CXR with no acute finding, admitting VBG with hypercapnia, admitting flu screen negative Completed 5 days of doxycycline and prednisone Was doing well on baseline 4L NC and scheduled nebs although was refusing nebs due to feeling well Today 12/07 developed pleuritic chest pain and expiratory wheezing Labs obtained and significant for slight leukocytosis of 10.89 (up from 10.04 on 12/02 but down from 12.01 on admission) and CO2 43 Continue scheduled atrovent and xopenex q6hr - encouraged patient to not refuse nebs Add additional 5 days course of prednisone Recheck BMP in morning Consider bipap if CO2 worsens Alcohol abuse Continue AWSS protocol IV ativan per protocol - last dose on 12/06 at 1144 Completed chlordiazepoxide taper Continue folic acid (home med) and thiamine (new med) Continues to have bilateral hand tremors Chronic HFpEF Pulmonary hypertension Decompensated heart failure ruled out with admitting BNP 92, admitting CXR with no acute finding Echo on 12/01 revealed EF 60-65%, normal LV systolic function, mild tricuspid regurgitation, mildly elevated pulmonary artery systolic pressure Continue with furosemide and KCl per home dosing Patient appears euvolemic Hypertension Hypertensive this morning likely due to pain Continue amlodipine, metoprolol per home dosing History of PE on Eliquis Continue Eliquis per home dosing GERD Continue pantoprazole and famotidine per home dosing Anxiety/mood disorder Continue hydroxyzine PRN Chronic anemia Hgb on 12/07 at baseline Chronic pain on methadone Continue methadone Patient does not have any more methadone at home and will need to get more from methadone clinic at discharge Tobacco use Continue nicotine patch Possible sleep apnea As per outpatient pulm note from 2022, likely OHS given chronic hypercapnia Consider sleep study upon discharge DVT Prophylaxis: on Eliquis Code Status: FULL CODE PCP: Roseann Plummer Disposition: possible discharge tomorrow pending improvement in CO2 and pleuritic chest pain Patient seen in collaboration with Dr Andrade. Please see addendum. I spent a total of 60 minutes coordinating, documenting and providing care for this patient excluding time spent in the performance of separately billed services or time spent by another provider/QHP. Admission and Anticipated Discharge Date Admission Date: November 30, 2024 Supervising Physician Co-Signing Physician Notes Attending addendum: The patient was seen and examined in medical floor Complains to wheezing and anxiety with increased tremors On examination Sitting at the edge of the bed with acute anxiety Saturating normally on 4 L nasal cannula Has bilateral wheezing and minimal crackles at the bases on auscultation Her labs and medications reviewed Significant withdrawal symptoms with ongoing tremors in the outstretched hands Likely has acute exacerbation of COPD Will add steroid for a short course Given additional dose of chlordiazepoxide for increasing tremors Likely discharge tomorrow Agree with assessment plan as outlined above by PAYAL Mccarty and the full responsible care in the hospital Total time taken in documentation, examination and reviewing was [address] Jeferson Andrade Subjective Patient was seen sitting up in bed with [facility] running Reports pleuritic chest pain that started this morning Denies fevers, chills, SOB, abdominal pain, N/V/D Eating and drinking well Review of Systems Review of Systems: All systems reviewed & are unremarkable except as noted in Subjective Physical Exam Physical Exam: Gen/Psych: WD/WN, sitting up in bed, NAD, A&Ox3 HEENT: Normocephalic, atraumatic, conjunctivae pink, sclerae anicteric, mucous membranes moist Lung: Expiratory wheezing in posterior lung phillips bilaterally, no accessory muscle use Heart: Regular rate and rhythm, no murmurs/rubs/gallops Extremities: Normal peripheral pulses, no edema Abdomen: Soft, NT, ND, +BS x 4 Skin: Warm and dry, no rash Results & Data Results & Data Vital Signs (Past 12 Hours) Vital Signs Temp Pulse Resp BP Pulse Ox O2 Del Method O2 Flow Rate 12/07/24 09:05 80 18 94 Nasal Cannula 4 12/07/24 08:26 37.0 C 81 24 153/67 H 95 Nasal Cannula 4 12/07/24 07:29 36.8 C 81 16 140/59 L 91 Nasal Cannula 4 Laboratory Results Short CBC 12/07/24 Range/Units 08:21 WBC 10.89 H (4.8-10.8) K/ul Hgb 11.5 L (12.0-16.0) g/dl Hct 37.4 (37.0-47.0) % Plt Count 201 (130-400) K/uL BMP 12/07/24 12/07/24 08:21 09:09 Sodium 138 Potassium TNP TNP Chloride 96 L Carbon Dioxide 43 H* BUN 22 Creatinine 1.06 Glucose 151 H Calcium 9.4 I have independently reviewed and interpreted patient's labs including CBC and BMP.. Medications Administered Current Inpatient Medications Acetaminophen (Acetaminophen 325 Mg Tab) 650 mg PO QID PRN PRN Reason: pain/fever Stop: 12/30/24 23:45 Last Admin: 12/04/24 16:10 Dose: 650 mg Amlodipine Besylate (Amlodipine Besylate 5 Mg Tab) 10 mg PO [facility] Stop: 12/31/24 08:59 Last Admin: 12/07/24 08:41 Dose: 10 mg Apixaban (Apixaban 5 Mg Tablet) 5 mg PO [facility] Stop: 12/30/24 23:49 Last Admin: 12/07/24 08:42 Dose: 5 mg Famotidine (Famotidine 20 Mg Tab) 20 mg PO [facility] Stop: 12/31/24 08:59 Last Admin: 12/07/24 08:47 Dose: 20 mg Folic Acid (Folic Acid 1 Mg Tab) 1 mg PO [facility] Stop: 12/31/24 08:59 Last Admin: 12/07/24 08:42 Dose: 1 mg Furosemide (Furosemide 40 Mg Tab) 40 mg PO [facility] Stop: 01/01/25 08:59 Last Admin: 12/07/24 08:42 Dose: 40 mg Hydroxyzine HCl (Hydroxyzine Hcl 25 Mg Tab) 25 mg PO TID PRN PRN Reason: Anxiety Stop: 12/30/24 23:46 Last Admin: 12/07/24 00:54 Dose: 25 mg Promethazine HCl (Phenergan) 12.5 mg in 50.5 mls @ 202 mls/hr IV Q6H PRN PRN Reason: Nausea And Vomiting Stop: 12/30/24 23:45 Last Infusion: 12/06/24 16:02 Dose: Infused Ipratropium [place] (Ipratropium [place] Neb Soln 0.02% 0.5mg/2.5ml Vial) 0.5 mg INH Q6R [facility] Stop: 12/31/24 00:00 Last Admin: 12/07/24 09:04 Dose: 0.5 mg Levalbuterol HCl (Levalbuterol 1.25 Mg/3 Ml Neb) 1.25 mg NEB Q6R [facility] Stop: 12/31/24 00:00 Last Admin: 12/07/24 09:04 Dose: 1.25 mg Levalbuterol HCl (Levalbuterol 1.25 Mg/3 Ml Neb) 1.25 mg NEB Q4H PRN PRN Reason: Shortness Of Breath Or Wheezing Stop: 01/02/25 05:08 Last Admin: 12/03/24 05:25 Dose: 1.25 mg Lorazepam (Lorazepam 2 Mg/1 Ml Vial) 1 mg IV UD PRN; Protocol PRN Reason: EtOH Withdrawal AWSS Score 6,7 Stop: 01/01/25 00:50 Last Admin: 12/06/24 05:56 Dose: 1 mg Magnesium Oxide (Magnesium Oxide 400 Mg Tab) 800 mg PO HS [facility] Stop: 12/31/24 20:59 Last Admin: 12/06/24 21:20 Dose: 800 mg Methadone HCl (Methadone Oral Soln 2 Mg/Ml) 100 mg PO QAM [facility] Stop: 12/15/24 08:59 Last Admin: 12/07/24 08:39 Dose: 100 mg Metoprolol Succinate (Metoprolol Succ 25mg Ext Rel Tab) 12.5 mg PO AMHS [facility] Stop: 12/31/24 08:59 Last Admin: 12/07/24 08:42 Dose: 12.5 mg Miscellaneous (Remove Nicoderm Patch) 1 each N/A DAILY@2058 [facility] Stop: 12/31/24 20:58 Last Admin: 12/06/24 21:24 Dose: 1 each Multivitamins (Multivitamin Tab) 1 tab PO QAM [facility] Stop: 12/31/24 08:59 Last Admin: 12/07/24 08:42 Dose: 1 tab Nicotine (Nicotine 14 Mg/24 Hr Patch) 1 patch TD HS [facility] Stop: 12/30/24 23:49 Last Admin: 12/06/24 21:21 Dose: 1 patch Non-Formulary Medication (Patient's Own Controlled Med 1) 1 each PO DAILY [facility] Stop: 12/15/24 08:59 Last Admin: 12/07/24 08:39 Dose: 50 ml Pantoprazole Sodium (Pantoprazole 40 Mg Tab) 40 mg PO BID [facility] Stop: 12/30/24 23:44 Last Admin: 12/07/24 08:42 Dose: 40 mg Potassium Chloride (Potassium Chloride Crtab 20 Meq Tabcr) 20 meq PO [facility] Stop: 12/31/24 20:59 Last Admin: 12/07/24 08:39 Dose: 20 meq Thiamine HCl (Thiamine Hcl 100 Mg Tab) 100 mg PO QAM [facility] Stop: 12/31/24 08:59 Last Admin: 12/07/24 08:42 Dose: 100 mg
[2024-12-07] MEDS: predniSONE 20 MG TAB PO SCH (11:19)
[2024-12-07 20:15] VITALS: TEMP 97.5
[2024-12-08] MEDS: LORazepam 0.5 MG TAB PO STA (06:02)
[2024-12-08 07:03] VITALS: BP 104/58
[2024-12-08 07:11] VITALS: PULSE 65; RESP 19; O2SAT 97
[2024-12-08 07:54] LABS: Hematocrit (blood only) 32.6 % (37.0-47.0); Hemoglobin 10.1 g/dl (12.0-16.0); Mean Corpuscular Hemoglobin 29.6 pg (25.0-34.0); Mean Corpuscular Volume 95.6 fL (80.0-100.0); Mean Platelet Volume 10.2 fL (9.4-12.4); Platelet Count 172 K/uL (130-400); RDW Coefficient of Variation 13.4 % (11.5-14.5); RDW Standard Deviation 47.1 fL (36.4-46.3); Red Blood Count 3.41 M/uL (4.20-5.40); White Blood Count 9.22 K/ul (4.8-10.8)
[2024-12-08 08:11] LABS: BUN Creatinine Ratio 23.8 (10-20); Calcium 9.1 mg/dl (8.6-10.3); Creatinine Clr Calc Pharmacy 78.3 ml/min; Potassium 4.2 mmol/L (3.5-5.1)
--- NOTE | 2024-12-08 12:17 | Discharge Summary ---
<Statement entered by Jacoby Barth, - 12/08/24 12:56> I have seen and examined the patient and have discussed the case with the advance practice provider. I have reviewed the advanced practitioner's documentation, and I agree with, and take responsibility for that plan of care. I spent a total of 15 minutes coordinating, documenting, and providing care for this patient excluding time spent by another provider/QHP. Patient feels she is at her baseline. Discussed with her need for daily maintenance inhalers. 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 Acute on chronic respiratory failure with hypercapnia Acute exacerbation of COPD Patient presented to ED on 11/30 with worsening SOB and increasing cough for a few days Admitting CXR with no acute finding, admitting VBG with hypercapnia, admitting flu screen negative Completed 5 days of doxycycline and prednisone Was doing well on baseline 4L NC and scheduled duonebs On 12/07 developed pleuritic chest pain and wheezing Labs obtained and significant for slight leukocytosis of 10.89 (up from 10.04 on 12/02 but down from 12.01 on 11/30) and CO2 43 Added additional 5 days course of prednisone Recheck CO2 on 12/08 downtrended to 39 Consider recheck of BMP outpatient to ensure continued downtrending Discussed with patient about need for daily inhaler to prevent more exacerbations. She has previously been prescribed Trelegy and Anoro Ellipta by Pulmonology but has not tolerated them. Patient was agreeable to trying Symbicort. Explained that this can cause thrush and encouraged her to rinse her mouth out after inhaler use. Alcohol abuse Alcohol withdrawal protocol initiated in hospital Completed chlordiazepoxide taper Continue folic acid (home med) and thiamine (new med) Chronic HFpEF Pulmonary hypertension Decompensated heart failure ruled out with admitting BNP 92, admitting CXR with no acute finding Echo on 12/01 revealed EF 60-65%, normal LV systolic function, mild tricuspid regurgitation, mildly elevated pulmonary artery systolic pressure Continue with furosemide and KCl per home dosing Patient euvolemic throughout admission Hypertension Continue amlodipine, metoprolol per home dosing History of PE on Eliquis Continue Eliquis per home dosing GERD Continue pantoprazole and famotidine per home dosing Anxiety/mood disorder Continue hydroxyzine PRN per home dosing Chronic anemia Hgb on 12/07 at baseline Chronic pain on methadone Continue methadone per home dosing Tobacco use Continue nicotine patch Possible sleep apnea Consider sleep study outpatient Patient seen in collaboration with Dr Barth. Please see addendum. Notes For Next Care Provider 59 year old female with significant PMH who presented to the ED on 11/30 with SOB and cough and was admitted for acute on chronic respiratory failure with hypercapnia. She completed a five day course of doxycycline and prednisone and was doing well. She then developed pleuritic chest pain and wheezing for which another five day course of prednisone was prescribed. Discussed with patient need for a daily inhaler to prevent COPD exacerbations. She was agreeable to trying Symbicort as described above. She has follow up scheduled with Pulmonology in December and was encouraged to discuss this new inhaler with them. Medication Changes From Visit -Prednisone 40mg once daily for three more days -Symbicort inhaler 2 puffs bid -Thiamine 100mg once daily Admission HPI Per Admitting Provider History obtained from patient and records. Medical history significant for chronic diastolic heart failure (EF 55 to 60%, TTE 2023), hypertension, chronic respiratory failure secondary to COPD on home O2, pulmonary hypertension as per records, possible sleep apnea as per records, history of PE on Eliquis, chronic anemia (baseline hemoglobin 10-11), GERD, chronic pain on methadone, past history of substance abuse, anxiety/mood disorder, ongoing alcohol and tobacco abuse. Recent confinement last month for alcohol withdrawal and COPD exacerbation. Patient signed out AGAINST MEDICAL ADVICE. Patient with worsening shortness of breath symptoms over the last few days. Junky cough symptoms with fluid retention as per patient. Chest pain from coughing. No unusual headache or abdominal pain. Denies aspiration. Lasix administered at the ER. Medical History as above Surgical History : Hip replacement surgery Family History : Brain tumor, heart disease Personal/Social history : 1/4 pack daily, alcohol abuse, disabled Admission Exam Per Admitting Provider GENERAL: Comfortable, dysphonic, obese, no respiratory distress SKIN: Normal color, warm HEENT: [place] palpebral conjunctivae, no ptosis, moist buccal mucosa NECK : Supple, short neck, no tenderness CHEST : Decreased breath sounds, expiratory wheezes, no tenderness HEART : RRR, no obvious murmurs ABDOMEN: Some distention, nontender EXTREMITIES : Bilateral LE swelling without tenderness, palpable pulses, no other conspicuous deformities noted NEUROLOGIC : Coherent, no facial asymmetry, no other gross focality Discharge Exam Gen/Psych: WD/WN, sitting up in bed, NAD, A&Ox3 HEENT: Normocephalic, atraumatic, conjunctivae pink, sclerae anicteric, mucous membranes moist Lung: Expiratory wheezing in posterior lung phillips bilaterally, no accessory muscle use Heart: Regular rate and rhythm, no murmurs/rubs/gallops Extremities: Normal peripheral pulses, no edema Abdomen: Soft, NT, ND, +BS x 4 Skin: Warm and dry, no rash Updated Medication List Medication Instructions Recorded Confirmed Type amlodipine 10 mg tablet 10 mg PO QAM 05/16/22 11/30/24 History albuterol sulfate 90 mcg/actuation 2 puff inhalation Q6H PRN Cough 09/12/22 11/30/24 History aerosol inhaler furosemide 40 mg tablet 40 mg PO QAM #30 tabs 09/21/22 11/30/24 Rx methadone 10 mg/5 mL oral solution 100 mg PO QAM 06/25/23 11/30/24 History nicotine 7 mg/24 hr daily 1 patch transdermal DAILY 06/25/23 11/30/24 History transdermal patch folic acid 1 mg tablet 1 mg PO QAM 01/21/24 11/30/24 History magnesium oxide 400 mg (241.3 mg 800 mg PO HS 05/09/24 11/30/24 History magnesium) tablet apixaban 5 mg tablet (Eliquis) 5 mg PO AMHS 08/31/24 11/30/24 History metoprolol succinate 25 mg 12.5 mg PO AMHS 08/31/24 11/30/24 History tablet,extended release 24 hr famotidine 20 mg tablet 20 mg PO AMHS 11/30/24 11/30/24 History hydroxyzine HCl 25 mg tablet 25 mg PO TID PRN Anxiety 11/30/24 11/30/24 History pantoprazole 40 mg tablet,delayed 40 mg PO BID 11/30/24 11/30/24 History release potassium chloride 20 mEq 20 meq PO AMHS 11/30/24 11/30/24 History tablet,extended release budesonide-formoterol HFA 160 2 inh inhalation BID #10.2 grams 12/08/24 Rx mcg-4.5 mcg/actuation aerosol inhaler prednisone 20 mg tablet 40 mg (2 x 20 mg) PO DAILY #6 tabs 12/08/24 Rx thiamine HCl (vitamin B1) 100 mg 100 mg PO DAILY #30 caps 12/08/24 Rx capsule Hospital Stay Data Consultations 11/30/24 22:57 ED Decision to Admit Stat Diagnostic Imagining Performed Chest X-Ray 11/30/24 21:36 Exam(s): XR CXR 1 VIEW EXAM: XR Chest, 1 View CLINICAL HISTORY: Chest pain, nonspecific. TECHNIQUE: Frontal view of the chest. COMPARISON: Portal chest single view 11/10/2024 FINDINGS: Lungs: No definite focal airspace consolidation, accounting for overlying soft tissues. The pulmonary vasculature demonstrates no significant radiographic abnormality. Pleural space: Similar pleural thickening along the left inferolateral hemithorax. No definite pleural effusion. No right pleural effusion or pneumothorax. Heart: Unremarkable. No cardiomegaly. Mediastinum: No significant abnormality identified. The trachea is midline. Bones/joints: Unremarkable. No acute fracture. IMPRESSION: No acute cardiopulmonary process or significant alteration from the prior examination. Electronically signed by: Richie Dos Santos MD 11/30/24 23:45 PM Pending Results Patient Have Any Pending Studies at Discharge: No Discharge Instructions Given to Patient (Per Discharging Provider) You were admitted to the hospital for acute respiratory failure and exacerbation of your COPD. You completed a five day course of antibiotics and oral steroids and were doing better. Then yesterday you developed pain with breathing and were wheezing so we added another five day course of oral steroids. You have been receiving scheduled nebulizer treatments and may continue to do albuterol nebs every 4 hours as needed at home for SOB or wheezing. We discussed your need for a daily inhaler and after discussion, you were agreeable to starting a daily inhaler with steroid in it. You are aware that this inhaler can cause thrush. You should discuss how it is going on your new inhaler with your [employer] in December. You also completed a taper of chlordiazepoxide for alcohol withdrawal symptoms. Please continue taking folic acid and thiamine. MEDICATION CHANGES: -Prednisone 40mg once daily for three more days. Take on 12/09, 12/10, and 12/11. -Symbicort inhaler 2 inhalations twice a day -Thiamine 100mg once daily SUMMARY OF TEST RESULTS: None PENDING TEST RESULTS: None RECOMMENDATIONS FOR FOLLOW-UP: Please follow up with your PCP as scheduled tomorrow 12/09 at 1100. Please follow up with your [employer] as scheduled on 12/28 and discuss your new inhaler with them. OTHER INSTRUCTIONS: Seek medical attention if you have: * temperature above 101 * chest pain or trouble breathing * abdominal pain, nausea, vomiting * diarrhea, dark stools or bloody stools * any unanswered questions or concerns Call 911 if symptoms are severe. It has been a pleasure taking care of you. Please take care of yourself. If you have any questions regarding your recent hospitalization please contact [facility] and request Jazminsheila Jen @ [phone]. Total Time Total Time Spent Total Time Spent (In Minutes): I spent a total of 35 minutes coordinating, documenting and providing care for this patient excluding time spent in the performance of separately billed serv ices or time spent by another provider/QHP.
== END 2024-12-08 12:43 | disposition home or self-care (01) | DRG 190 ==
LOC: ED 21:13 → 2E 23:41 → SUATTDRO 23:41 → 2E 12-01 01:06 → 3N 12-05 16:04

== ENCOUNTER 2025-05-22 03:52 | Inpatient (IN) ==
--- NOTE | 2025-05-22 04:12 | Emergency Department Note ---
History of Present Illness General Chief complaint: Fever Stated complaint: FEVER Time Seen by Provider: 05/22/25 04:00 History of Present Illness Maximum Pain Intensity: 8 The patient is a 59-year-old female with a past medical history of acute on chronic respiratory failure, COPD, alcohol abuse, chronic heart failure with preserved EF, pulmonary hypertension, HTN, PEon Eliquis, GERD, anxiety, methadone maintenance therapy, current tobacco use presents to the ER complaining of fever, chills, productive cough with yellow-green sputum and chronic abdominal pain today. Patient chronically wears 4 L. Patient denies vomiting, diarrhea, sore throat. She also has urinary frequency. Home Medications Medication Instructions Recorded Confirmed Type albuterol sulfate 90 mcg/actuation 2 inh inhalation Q6H PRN Shortness 05/22/25 05/22/25 History aerosol inhaler Of Breath Or Wheezing amlodipine 10 mg tablet 10 mg PO DAILY 05/22/25 05/22/25 History apixaban 5 mg tablet (Eliquis) 5 mg PO BID 05/22/25 05/22/25 History aripiprazole 2 mg tablet 2 mg PO HS 05/22/25 05/22/25 History budesonide-formoterol HFA 160 2 puff inhalation BID 05/22/25 05/22/25 History mcg-4.5 mcg/actuation aerosol inhaler clonidine HCl 0.1 mg tablet 0.1 mg PO HS 05/22/25 05/22/25 History famotidine 20 mg tablet 20 mg PO BID 05/22/25 05/22/25 History folic acid 1 mg tablet 1 mg PO DAILY 05/22/25 05/22/25 History furosemide 40 mg tablet 40 mg PO DAILY 05/22/25 05/22/25 History hydroxyzine HCl 25 mg tablet 25 mg PO TID PRN Anxiety 05/22/25 05/22/25 History magnesium oxide 400 mg (241.3 mg 400 mg PO HS 05/22/25 05/22/25 History magnesium) tablet methadone 10 mg/5 mL oral solution 100 mg PO DAILY 05/22/25 05/22/25 History metoprolol succinate 25 mg 12.5 mg PO BID 05/22/25 05/22/25 History tablet,extended release 24 hr pantoprazole 40 mg tablet,delayed 40 mg PO BID 05/22/25 05/22/25 History release potassium chloride 20 mEq 20 meq PO BID 05/22/25 05/22/25 History tablet,extended release thiamine HCl (vitamin B1) 100 mg 100 mg PO DAILY 05/22/25 05/22/25 History tablet Allergies Allergy/AdvReac Type Severity Reaction Status Date / Time buspirone [From BuSpar] Allergy Mild Rash Verified 05/01/25 15:29 fluticasone furoate AdvReac Intermediate INTENSE Verified 05/01/25 15:29 [From Trelegy Ellipta] HEADACHES gabapentin AdvReac Intermediate crazy Verified 05/01/25 15:29 umeclidinium AdvReac Intermediate INTENSE Verified 05/01/25 15:29 [From Trelegy Ellipta] HEADACHES vilanterol AdvReac Intermediate INTENSE Verified 05/01/25 15:29 [From Trelegy Ellipta] HEADACHES sertraline AdvReac Mild NAUSEATED Verified 05/01/25 15:29 olive oil AdvReac Unknown reacts Verified 05/01/25 15:29 with methadone Past Med/Surg History Problem List (Updated 05/22/25 @ 06:19 by Jeanna Dubon PA-C) CAP (community acquired pneumonia) (Acute) Acute exacerbation of chronic obstructive pulmonary disease (Acute) Distended abdomen CHARLENE (obstructive sleep apnea) Tobacco abuse counseling Acute cough Dyspnea on exertion Abdominal pain (Acute) Chronic anemia Anxiety Hx of pulmonary embolus dx 08/2022 - on Eliquis Chronic heart failure with preserved ejection fraction (HFpEF) Alcohol abuse (Acute) Acute and chronic respiratory failure with hypercapnia (Acute) COPD exacerbation (Acute) Hypomagnesemia (Acute) 11/20/23 Hypokalemia (Acute) 11/20/23 Tobacco use Pulmonary hypertension Methadone maintenance therapy patient GERD (gastroesophageal reflux disease) HTN (hypertension) COPD (chronic obstructive pulmonary disease) (Acute) Medical History (Updated 05/22/25 @ 06:19 by Jeanna Dubon PA-C) Dyspnea Viral pneumonia Positive blood culture Pneumonia due to hemophilus influenzae Opioid use disorder, severe, in sustained remission Cluster B personality disorder Alcohol use disorder, moderate, dependence MDD (major depressive disorder), recurrent episode, moderate Alcoholism /alcohol abuse Acute on chronic respiratory failure with hypoxemia Acute exacerbation of chronic obstructive pulmonary disease Symptomatic cholelithiasis Edema, peripheral 11/20/23 Frequent PVCs Bradycardia Acute on chronic respiratory failure with hypoxia and hypercapnia 08/23/23 History of alcohol abuse Sepsis due to pneumonia 08/23/23 Parainfluenza infection 08/23/23 Pneumonia 08/23/23 Encounter for pre-operative examination (~09/02/24) Pulmonary embolism dx 08/2022 - unknown the cause. treated with anticoagulants. 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 Down to three drinks a week GERD (gastroesophageal reflux disease) History of aspiration pneumonia 08/2022 from vomiting -- reports she "passed out and vomited while she was incoherent" per PAT RN COPD (chronic obstructive pulmonary disease) well controlled currently, uses 4lpm oxygen via n/c continuously Hx of sinus bradycardia episode when vitamin levels were low. no current issue History of endocarditis --- r/t IV drug use. S/P transesophageal echocardiogram (RENATA) Lung nodule monitoring Constipation On home oxygen therapy 4lpm via n/c daily Recurrent major depressive disorder Surgical History S/P right cataract extraction Status post total hip replacement, right Family History Other Family history non-contributory No family history of adverse response to anesthesia Social History Smoking Status: Current every day smoker Tobacco Type: Cigarettes Cigarettes Per Day: 3; Second Hand Exposure: No; Do You Dip or Chew Tobacco: No; Hx Alcohol Use: Yes Alcohol type: hard liquor Hx Substance Use: Yes (not currently using) Last Used Substance: Days (ago) Last Used Substance Other:: remote hx of cocaine and heroin use (2008); med marijuana ~3-4x/week now Substance Use Type Other:: methadone Preferred Language: Maltese Communication Ability: Effective Paint 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 Required: No Beliefs That Will Affect Care: None Current Living Situation: Alone Feels Safe at Home: Yes Assistive Devices: Cane, Oxygen - Continuous and Walker Review of Systems A total of 10 systems reviewed and were otherwise negative Physical Exam Vital Signs Vital Signs - 24 hr 05/22/25 03:56 05/22/25 04:11 05/22/25 04:12 Temperature 36.5 C Temperature Source Oral Pulse Rate 91 H 101 H 94 H Pulse Rate from SpO2 Sensor Pulse Rhythm Regular Pulse Strength Normal Respiratory Rate 18 23 Respiratory Effort / Characteristics Non-Labored Spontaneous Respiratory Depth Normal Respiratory Pattern Regular Blood Pressure 123/65 Blood Pressure Mean 84 Blood Pressure Position Sitting Pulse Oximetry 95 Oxygen Delivery Method Nasal Cannula Oxygen Flow Rate 4 Sepsis Recent Fever Within 48 Hours Yes Sepsis New/Unexplained Change in Mental Status N/A Sepsis Action Taken by Nursing No Action Required 05/22/25 04:14 05/22/25 04:21 05/22/25 04:24 Temperature Temperature Source Pulse Rate 94 H 93 H Pulse Rate from SpO2 Sensor Pulse Rhythm Pulse Strength Respiratory Rate 15 16 Respiratory Effort / Characteristics Respiratory Depth Respiratory Pattern Blood Pressure 124/82 Blood Pressure Mean 96 Blood Pressure Position Pulse Oximetry 96 Oxygen Delivery Method Nasal Cannula Oxygen Flow Rate 4 Sepsis Recent Fever Within 48 Hours Sepsis New/Unexplained Change in Mental Status Sepsis Action Taken by Nursing 05/22/25 04:42 05/22/25 04:52 05/22/25 04:54 Temperature Temperature Source Pulse Rate 92 H 100 H Pulse Rate from SpO2 Sensor 91 H 86 Pulse Rhythm Pulse Strength Respiratory Rate 16 16 Respiratory Effort / Characteristics Respiratory Depth Respiratory Pattern Blood Pressure 143/84 H Blood Pressure Mean 110 Blood Pressure Position Pulse Oximetry 93 93 Oxygen Delivery Method Nasal Cannula Nasal Cannula Oxygen Flow Rate 4 4 Sepsis Recent Fever Within 48 Hours Sepsis New/Unexplained Change in Mental Status Sepsis Action Taken by Nursing 05/22/25 05:00 Temperature Temperature Source Pulse Rate 83 Pulse Rate from SpO2 Sensor 82 Pulse Rhythm Pulse Strength Respiratory Rate 18 Respiratory Effort / Characteristics Respiratory Depth Respiratory Pattern Blood Pressure 119/70 Blood Pressure Mean 86 Blood Pressure Position Pulse Oximetry 93 Oxygen Delivery Method Nasal Cannula Oxygen Flow Rate 4 Sepsis Recent Fever Within 48 Hours Sepsis New/Unexplained Change in Mental Status Sepsis Action Taken by Nursing VITALS: Vitals are noted on the nurse's note and reviewed by myself. Vital signs reviewed from nursing note. GENERAL: Pleasant female wearing her oxygen coughing who appears uncomfortable, in no acute distress, nondiaphoretic, well-developed well-nourished. SKIN: The skin was without rashes, erythema, edema, or bruising. There is no tenting of the skin. Capillary reflex less than 2 seconds. HEAD: Normocephalic atraumatic. EARS: External auditory canals clear EYES: Pupils equal round and reactive to light and accommodation. Conjunctivae without injection, sclerae without icterus. Extraocular movements intact. NOSE: Patent, no discharge. MOUTH: Mucous membranes moist. Pharynx without erythema or exudate. Uvula midline. Airway patent. Tongue does not deviate. NECK: Supple without nuchal rigidity. No lymphadenopathy. No thyromegaly. Cervical spine is nontender. No JVD. HEART: Regular rate and rhythm LUNGS: Diffuse inspiratory and end expiratory wheezes. No retractions or accessory muscle use. ABDOMEN: Positive bowel sounds x 4. Normal tympanic percussion. Soft, minimally diffuse tenderness, without masses or organomegaly. Spring sign negative. No guarding or rebound tenderness. No CVA tenderness MUSCULOSKELETAL: No muscle atrophy, erythema, or edema noted. NEURO: Patient was alert and oriented to person place and time. Normal sensation to light and sharp touch. No focal neurological deficits. Course Administered Medications Discontinued Medications Albuterol (Albut/Ipratrop 3mg/0.5mg Neb 3 Ml Vial) 3 ml NEB NOW STA; Protocol Stop: 05/22/25 04:07 Last Admin: 05/22/25 04:17 Dose: 3 ml Documented By: ТАТЬЯНА Piperacillin Sod/Tazobactam Sod (Zosyn) 4.5 gm in 100 mls @ 200 mls/hr IV NOW ONE; Protocol Stop: 05/22/25 04:49 Last Admin: 05/22/25 06:02 Dose: 200 mls/hr Documented By: ТАТЬЯНА Methylprednisolone (Methylprednisolone 125 Mg/2 Ml Vial) 125 mg IV NOW STA Stop: 05/22/25 04:07 Last Admin: 05/22/25 04:25 Dose: 125 mg Documented By: ТАТЬЯНА Medical Decision Making Medical Records Attestation: I reviewed the patient's medical records. Home Medications Current Medication List: was personally reviewed by me Laboratory Data Attestation: I reviewed the patient's lab results. 05/22/25 04:13 05/22/25 04:13 Lab Results 05/22/25 05/22/25 05/22/25 Range/Units 04:11 04:13 04:24 WBC 15.33 H (4.8-10.8) K/ul RBC 4.21 (4.20-5.40) M/uL Hgb 11.5 L (12.0-16.0) g/dl POC Hgb 13.3 (12.0-16.0) g/dl Hct 37.4 (37.0-47.0) % POC Hct 39 (37-47) % MCV 88.8 (80.0-100.0) fL MCH 27.3 (25.0-34.0) pg MCHC 30.7 L (32.0-36.0) g/dL RDW Std Deviation 44.2 (36.4-46.3) fL RDW Coeff of Cee 13.7 (11.5-14.5) % Plt Count 238 (130-400) K/uL MPV 10.1 (9.4-12.4) fL Immature Gran % (Auto) 0.8 % Neut % (Auto) 83.9 % Lymph % (Auto) 9.5 % [place] % (Auto) 4.9 % Eos % (Auto) 0.7 % Baso % (Auto) 0.2 % Neut # (Auto) 12.87 H (1.40-6.50) K/uL Lymph # (Auto) 1.45 (1.20-3.40) K/uL [place] # (Auto) 0.75 H (0.11-0.59) K/uL Eos # (Auto) 0.11 (0.00-0.50) K/uL Baso # (Auto) 0.03 (0.00-0.20) K/uL Immature Gran # (Auto) 0.12 (0.01-0.20) K/uL VBG pH 7.35 L (7.36-7.41) VBG pCO2 60 H (38-50) mmHg VBG pO2 29 mmHg VBG HCO3 33 mmol/L VBG O2 Saturation < 60.0 % VBG Base Excess 5.6 mEq/L POC Sodium 133 L (135-144) mmol/L Sodium 134 L (136-145) mmol/L POC Potassium 5.1 H (3.3-5.0) mmol/L Potassium 4.3 (3.5-5.1) mmol/L POC Chloride 97 L (101-112) mmol/L Chloride 96 L (98-107) mmol/L Carbon Dioxide 32 (21-32) mmol/L POC Total CO2 32 H (24-31) mmol/L Anion Gap 6 (3-11) POC Anion Gap 10.0 L (16-25) mmol/L POC BUN 13 (7-18) mg/dl BUN 11 (6-23) mg/dl Creatinine 0.89 (0.6-1.2) mg/dl POC Creatinine 1.0 (0.6-1.3) mg/dl Est Cr Clr Drug Dosing 89.5 ml/min eGFR 75.57 BUN/Creatinine Ratio 12.4 (10-20) Glucose 136 H (70-99(Fasting)) mg/dl POC Glucose (other) 138 H (70-99) mg/dl Lactate 1.3 (0.4-2.0) mmol/L Calcium 9.8 (8.6-10.3) mg/dl POC Ioniz Calcium [place] 1.03 L (1.12-1.32) mmol/l Magnesium 1.9 (1.7-2.4) mg/dl Total Bilirubin 0.8 (0.2-1.0) mg/dl Direct Bilirubin TNP AST 24 (13-39) U/L ALT 43 (7-52) U/L Alkaline Phosphatase 145 H (34-104) U/L Troponin I High Sens 7.0 (0-14) pg/ml Total Protein 8.2 (6.0-8.3) gm/dl Albumin 4.1 (3.4-5.0) gm/dl Procalcitonin Cancelled Urine Color Yellow Urine Appearance Clear (Clear) Urine pH 7.5 (4.5-7.5) Ur Specific [place] 1.008 (1.000-1.030) Urine Protein Trace H (Negative) Urine Glucose (UA) Negative (Negative) Urine Ketones Negative (Negative) Urine Blood Negative (Negative) Urine Nitrite Negative (Negative) Urine Bilirubin Negative (Negative) Urine Urobilinogen Negative (Negative) Ur Leukocyte Esterase Negative (Negative) Urine WBC (Auto) 0-5 (0-5) /hpf Urine RBC (Auto) 0-2 (0-2) /hpf U Hyaline Cast (Auto) 0-2 (0-2) /lpf U Epithel Cells (Auto) 3-5 H (0-2) /hpf Urine Bacteria (Auto) None Seen (None Seen) Urine Comment Ethyl Alcohol mg/dL < 10.0 (<10.0) mg/dl Adenovirus (PCR) Not Detected (NotDetected) B. pertussis DNA (PCR) Not Detected (NotDetected) B.parapertussis DNA PCR Not Detected (NotDetected) C. pneumoniae DNA (PCR) Not Detected (NotDetected) Coronavirus OC43 (PCR) Not Detected (NotDetected) Coronavirus HKU1 (PCR) Not Detected (NotDetected) Coronavirus 229E (PCR) Not Detected (NotDetected) SARS-CoV-2 (PCR) Not Detected (NotDetected) Coronavirus NL63 (PCR) Not Detected (NotDetected) Human Metapneumovir PCR Not Detected (NotDetected) Influenza Type A (PCR) Not Detected (NotDetected) Influenza Type B (PCR) Not Detected (NotDetected) M. pneumoniae (PCR) Not Detected (NotDetected) Parainfluenza 1 (PCR) Not Detected (NotDetected) Parainfluenza 2 (PCR) Not Detected (NotDetected) Parainfluenza 3 (PCR) Not Detected (NotDetected) Parainfluenza 4 (PCR) Not Detected (NotDetected) RSV (PCR) Not Detected (NotDetected) Entero/Rhino (PCR) Not Detected (NotDetected) Imaging Data Attestation: I personally reviewed and interpreted this imaging study as follows: Radiologist's Impression: Chest CT 05/22/25 04:42 EXAM: CT chest diagnostic wo con CLINICAL HISTORY: fever/cough. TECHNIQUE: Contiguous axial images were obtained from the base of the neck through the upper abdomen without contrast. In addition, sagittal and coronal reconstructions were performed to potentially increase the sensitivity for the detection of disease. CT scan was performed according to ALARA (as low as reasonably achievable). 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 FINDINGS: Evidence of small, patchy ground-glass opacities is noted in both lungs, predominantly in the upper lobes. Bilbasilar atelectasis. Multiple clusters of centrilobular nodular infiltrates with a branching pattern are noted in the apicoposterior segment of the left upper lobe, lingula, and posterior basal segment of both lower lobes. The lungs are clear, with no focal areas of consolidation. Calcified nodule in right lung. The central airways are patent. There are no pleural effusions. No pneumothorax is seen. Evaluation of the mediastinum and triny is limited due to the lack of intravenous contrast. No axillary or mediastinal adenopathy is identified. The thyroid is unremarkable. The heart, aorta, and pulmonary arteries are of normal size and configuration. There are coronary artery and aortic atherosclerotic calcifications. No pericardial effusion is identified. Imaged portions of the upper abdomen are unremarkable. No aggressive-appearing osseous lesions are identified. IMPRESSION: Evidence of small, patchy ground-glass opacities is noted in both lungs, predominantly in the upper lobes.New finding. Multiple clusters of centrilobular nodular infiltrates with a branching pattern are noted in the apicoposterior segment of the left upper lobe, lingula, and posterior basal segment of both lower lobes, suggesting the possibility of endobronchial spread of disease or bronchiolitis. New finding. Bilbasilar atelectasis. Electronically signed by Issa Ashley 05-22-2025 06:03 AM [facility] Narrative Prior records/ancillary studies reviewed. Triage Nursing notes reviewed. Additional history obtained from family. The patient's history was concerning for fever with cough, dyspnea and abdominal pain. Differential diagnosis: Etiologies such as COPD exacerbation, intra-abdominal, viral syndrome, otitis, pharyngitis, pneumonia, influenza, meningitis, urinary tract infection, sepsis, bacteremia, as well as others were entertained. Physical examination: As above ER treatment provided: An order was placed for continuous cardiac monitoring. The monitor shows a rate of 60-100 with a sinus rhythm per my interpretation. Nebulizer, Solu-Medrol, Zosyn Nicotine patch was ordered On reassessment the patient felt better. Diagnostics interpreted by me: ECG: Ordered for dyspnea EKG: Poor baseline, minimal ST depression in the inferior leads, no ST elevation, rate of 96. Impression normal sinus rhythm poor baseline minimal ST depression in inferior leads independently interpreted by myself The labs Independently Interpreted by myself revealed leukocytosis, negative urine. Stable VBG. Blood cultures are pending Sputum culture pending Imaging studies: Imaging was reviewed and read by radiology Patient had a recent CAT scan of her abdomen and states the pain is unchanged. This is chronic for her. I did opt to not repeat the scan because of this. Consultation: A consultation was placed with hospitalist. The case was discussed and diagnostics were reviewed. The patient was evaluated in the ER for further treatment. This appears to be consistent with COPD exacerbation with CAP. Patient was still feeling quite winded. She had a productive cough so I did place her on some antibiotics. Medicine was consulted and the case discussed. She will be evaluated for admission.. By the evaluation outlined above emergent etiologies such as otitis, pharyngitis, meningitis, urinary tract infection, sepsis, bacteremia, as well as others were deemed relatively unlikely. The pt informed about the findings as listed above. All questions were answered and pleased with the treatment. The chart was completed utilizing [employer] Speech voice recognition software. Grammatical errors, random word insertions, pronoun errors, and incomplete sentences are an occassional consequence of this system due to software limitations, ambient noise, and hardware issues. Any formal questions or concerns about the content, text, or information contained within the body of this dictation should be directly addressed to the physician purchasing administrative assistant for clarification. Impression & Plan Acute exacerbation of chronic obstructive pulmonary disease, CAP (community acquired pneumonia) Discharge Plan Visit Data Chief Complaint: Fever Stated Complaint: FEVER ED Provider: Rodriguez Marinelli ED Midlevel Provider: Jeanna Dubon Discharge Problem: Acute exacerbation of chronic obstructive pulmonary disease, CAP (community acquired pneumonia) Patient Disposition: Admitted As Inpatient Condition: Good Forms Stand Alone Forms: My [facility] Prescriptions Prescriptions: No Action furosemide 40 mg tablet 40 mg PO DAILY clonidine HCl 0.1 mg tablet 0.1 mg PO HS methadone 10 mg/5 mL Solution 100 mg PO DAILY thiamine HCl (vitamin B1) 100 mg tablet 100 mg PO DAILY famotidine 20 mg tablet 20 mg PO BID magnesium oxide 400 mg (241.3 mg magnesium) tablet 400 mg PO HS amlodipine 10 mg tablet 10 mg PO DAILY pantoprazole 40 mg tablet,delayed release (DR/EC) 40 mg PO BID folic acid 1 mg Tablet 1 mg PO DAILY hydroxyzine HCl 25 mg tablet 25 mg PO TID PRN (Reason: Anxiety) metoprolol succinate 25 mg tablet extended release 24 hr 12.5 mg PO BID albuterol sulfate 90 mcg/actuation HFA aerosol inhaler 2 inh INHALATION Q6H PRN (Reason: Shortness Of Breath Or Wheezing) aripiprazole 2 mg tablet 2 mg PO HS Eliquis 5 mg tablet 5 mg PO BID potassium chloride 20 mEq tablet extended release 20 meq PO BID budesonide-formoterol 160-4.5 mcg/actuation Hfa Aerosol Inhaler 2 puff INHALATION BID Referrals Referrals: Bernice Mueller PA-C [Primary Care Provider] -
[2025-05-22] MEDS: ALBUT/IPRATROP 3MG/0.5MG NEB 3 ML VIAL NEB STA (04:17)
[2025-05-22 04:28] LABS: Appearance Urine Clear (Clear); Bacteria Urine Automated None Seen (None Seen); Cast Urine Automated 0-2 /lpf (0-2); Glucose Urine UA Negative (Negative); RBC Urine Automated 0-2 /hpf (0-2); WBC Urine Automated 0-5 /hpf (0-5)
[2025-05-22 04:33] LABS: Base Excess VBG 5.6 mEq/L; HCO3 VBG 33 mmol/L; Oxygen Saturation VBG < 60.0 %; PCO2 VBG 60 mmHg (38-50); PO2 VBG 29 mmHg; pH VBG 7.35 (7.36-7.41)
[2025-05-22 04:50] LABS: Hematocrit (blood only) 37.4 % (37.0-47.0); Hemoglobin 11.5 g/dl (12.0-16.0); Immature Granulocytes # (auto) 0.12 K/uL (0.01-0.20); Immature Granulocytes % (auto) 0.8 %; Mean Corpuscular Hemoglobin 27.3 pg (25.0-34.0); Mean Corpuscular Volume 88.8 fL (80.0-100.0); Platelet Count 238 K/uL (130-400); RDW Standard Deviation 44.2 fL (36.4-46.3); Red Blood Count 4.21 M/uL (4.20-5.40); White Blood Count 15.33 K/ul (4.8-10.8)
[2025-05-22 05:27] LABS: Chlamydia pneumoniae PCR Not Detected (NotDetected); Coronavirus 229E PCR Not Detected (NotDetected); Coronavirus CoV-2 (COVID19)PCR Not Detected (NotDetected); Coronavirus HKU1 PCR Not Detected (NotDetected); Coronavirus NL63 PCR Not Detected (NotDetected); Coronavirus OC43PCR Not Detected (NotDetected); Human Metapneumovirus PCR Not Detected (NotDetected); Parainfluenza Virus 1 PCR Not Detected (NotDetected); Parainfluenza Virus 2 PCR Not Detected (NotDetected); Parainfluenza Virus 3 PCR Not Detected (NotDetected); Parainfluenza Virus 4 PCR Not Detected (NotDetected); Respiratory Syncytial VirusPCR Not Detected (NotDetected); Rhinovirus/Enterovirus PCR Not Detected (NotDetected)
[2025-05-22 05:51] LABS: Alanine Aminotransferase 43 U/L (7-52); Albumin Level 4.1 gm/dl (3.4-5.0); Alkaline Phosphatase 145 U/L (34-104); Anion Gap 6 (3-11); Bilirubin,Total 0.8 mg/dl (0.2-1.0); Blood Urea Nitrogen 11 mg/dl (6-23); Calcium 9.8 mg/dl (8.6-10.3); Carbon Dioxide 32 mmol/L (21-32); Chloride 96 mmol/L (98-107); Creatinine Clr Calc Pharmacy 89.5 ml/min; Glucose 136 mg/dl (70-99(Fasting)); Magnesium 1.9 mg/dl (1.7-2.4); Potassium 4.3 mmol/L (3.5-5.1); Sodium 134 mmol/L (136-145); Total Protein 8.2 gm/dl (6.0-8.3)
[2025-05-22] MEDS: PIPERACILLIN/TAZOBACTAM 4.5 GM/100 ML BAG IV ONE (06:02)
--- NOTE | 2025-05-22 06:04 | CT Scan Report ---
EXAM: CT chest diagnostic wo con CLINICAL HISTORY: fever/cough. TECHNIQUE: Contiguous axial images were obtained from the base of the neck through the upper abdomen without contrast. In addition, sagittal and coronal reconstructions were performed to potentially increase the sensitivity for the detection of disease. CT scan was performed according to ALARA (as low as reasonably achievable). 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 FINDINGS: Evidence of small, patchy ground-glass opacities is noted in both lungs, predominantly in the upper lobes. Bilbasilar atelectasis. Multiple clusters of centrilobular nodular infiltrates with a branching pattern are noted in the apicoposterior segment of the left upper lobe, lingula, and posterior basal segment of both lower lobes. The lungs are clear, with no focal areas of consolidation. Calcified nodule in right lung. The central airways are patent. There are no pleural effusions. No pneumothorax is seen. Evaluation of the mediastinum and triny is limited due to the lack of intravenous contrast. No axillary or mediastinal adenopathy is identified. The thyroid is unremarkable. The heart, aorta, and pulmonary arteries are of normal size and configuration. There are coronary artery and aortic atherosclerotic calcifications. No pericardial effusion is identified. Imaged portions of the upper abdomen are unremarkable. No aggressive-appearing osseous lesions are identified. IMPRESSION: Evidence of small, patchy ground-glass opacities is noted in both lungs, predominantly in the upper lobes.New finding. Multiple clusters of centrilobular nodular infiltrates with a branching pattern are noted in the apicoposterior segment of the left upper lobe, lingula, and posterior basal segment of both lower lobes, suggesting the possibility of endobronchial spread of disease or bronchiolitis. New finding. Bilbasilar atelectasis. Electronically signed by Issa Ashley 05-22-2025 06:03 AM
--- NOTE | 2025-05-22 06:27 | History & Physical Report ---
Date of Service May 22, 2025 Assessment & Plan (1) Acute exacerbation of chronic obstructive pulmonary disease: Plan: 59-year-old female with past medical history significant for hypokalemia, COPD, on home oxygen 4 L, history of pulmonary emboli, hypertension, GERD, history of KARLA, lumbar degenerative disease, osteoarthritis, restless leg syndrome, history of anemia, methadone maintenance therapy, substance abuse in remission, ongoing tobacco abuse, depression, alcoholism comes in because of shortness of breath and cough. Patient was recently in the hospital for acute on chronic respiratory failure with hypercapnia and hypoxia and COPD exacerbation and completed Doxy and Augmentin course and discharged on 05/07/2025. During that admission she was also seen by psychiatry for anxiety and was prescribed clonidine and aripiprazole, patient says she is taking all her medications. For last couple days patient developed cough with fevers and shortness of breath which prompted her come to the ER. She states bringing brownish-yellowish phlegm. She is chronically on 4 L oxygen. Has headaches. No runny nose. Has some sore throat. Vision is okay. Has some dizziness. Denies chest pain. No abdominal pain. Says micturating a lot. Normal bowel movements. Patient says since she was admitted last time she is not drinking alcohol. Still smoking 2 cigarettes daily. Hemodynamics are okay. Acute COPD exacerbation Acute on chronic respiratory failure Pulm hypertension Small patchy ground glass opacities both lungs predominantly upper lobes new finding on CT scan. Possibility endobronchial spread of disease of bronchiolitis on CT scan Empiric Zosyn and doxycycline IV Solu-Medrol 40 mg 3 times daily, DuoNebs ATC and as needed Continue home inhalers Continue home oxygen Close monitor Generalized anxiety disorder Patient was started on clonidine and aripiprazole last admit Continue hydroxyzine as needed History of alcoholism States not drinking since May 01, 2025 Continue thiamine and folic acid Will monitor Tobacco abuse Currently smoking 2 cigarettes daily Counseling History of heart failure with preserved ejection fraction Continue home Lasix and metoprolol succinate Hypertension Metoprolol succinate, amlodipine and Lasix Will monitor History of PE On Eliquis GERD On Protonix and famotidine Chronic pain History of substance abuse in remission On methadone DVT prophylaxis Eliquis Disposition Med/telemetry Full code. History of Present Illness Chief Complaint: Shortness of breath Primary Care Provider: Bernice Mueller PA-C 59-year-old female with past medical history significant for hypokalemia, COPD, on home oxygen 4 L, history of pulmonary emboli, hypertension, GERD, history of KARLA, lumbar degenerative disease, osteoarthritis, restless leg syndrome, history of anemia, methadone maintenance therapy, substance abuse in remission, ongoing tobacco abuse, depression, alcoholism comes in because of shortness of breath and cough. Patient was recently in the hospital for acute on chronic respiratory failure with hypercapnia and hypoxia and COPD exacerbation and completed Doxy and Augmentin course and discharged on 05/07/2025. During that admission she was also seen by psychiatry for anxiety and was prescribed clonidine and aripiprazole, patient says she is taking all her medications. For last couple days patient developed cough with fevers and shortness of breath which prompted her come to the ER. She states bringing brownish-yellowish phlegm. She is chronically on 4 L oxygen. Has headaches. No runny nose. Has some sore throat. Vision is okay. Has some dizziness. Denies chest pain. No abdominal pain. Says micturating a lot. Normal bowel movements. Patient says since she was admitted last time she is not drinking alcohol. Still smoking 2 cigarettes daily. Hemodynamics are okay. Past medical history. As mentioned above Past surgical history. Right total hip replacement. Social history. . Used to smoke 2 packs a day for 40 years. Currently smoking 2 cigarettes daily. Patient says since last admit on patient is not drinking alcohol. History of heroin abuse currently on methadone. Family history. Mother had adenocarcinoma brain tumor. Sister had heart disease. Brother has hypertension. Allergies Allergy/AdvReac Type Severity Reaction Status Date / Time buspirone [From BuSpar] Allergy Mild Rash Verified 05/01/25 15:29 fluticasone furoate AdvReac Intermediate INTENSE Verified 05/01/25 15:29 [From Trelegy Ellipta] HEADACHES gabapentin AdvReac Intermediate crazy Verified 05/01/25 15:29 umeclidinium AdvReac Intermediate INTENSE Verified 05/01/25 15:29 [From Trelegy Ellipta] HEADACHES vilanterol AdvReac Intermediate INTENSE Verified 05/01/25 15:29 [From Trelegy Ellipta] HEADACHES sertraline AdvReac Mild NAUSEATED Verified 05/01/25 15:29 olive oil AdvReac Unknown reacts Verified 05/01/25 15:29 with methadone Home Medications Medication Instructions Recorded Confirmed Type albuterol sulfate 90 mcg/actuation 2 inh inhalation Q6H PRN Shortness 05/22/25 05/22/25 History aerosol inhaler Of Breath Or Wheezing amlodipine 10 mg tablet 10 mg PO DAILY 05/22/25 05/22/25 History apixaban 5 mg tablet (Eliquis) 5 mg PO BID 05/22/25 05/22/25 History aripiprazole 2 mg tablet 2 mg PO HS 05/22/25 05/22/25 History budesonide-formoterol HFA 160 2 puff inhalation BID 05/22/25 05/22/25 History mcg-4.5 mcg/actuation aerosol inhaler clonidine HCl 0.1 mg tablet 0.1 mg PO HS 05/22/25 05/22/25 History famotidine 20 mg tablet 20 mg PO BID 05/22/25 05/22/25 History folic acid 1 mg tablet 1 mg PO DAILY 05/22/25 05/22/25 History furosemide 40 mg tablet 40 mg PO DAILY 05/22/25 05/22/25 History hydroxyzine HCl 25 mg tablet 25 mg PO TID PRN Anxiety 05/22/25 05/22/25 History magnesium oxide 400 mg (241.3 mg 400 mg PO HS 05/22/25 05/22/25 History magnesium) tablet methadone 10 mg/5 mL oral solution 100 mg PO DAILY 05/22/25 05/22/25 History metoprolol succinate 25 mg 12.5 mg PO BID 05/22/25 05/22/25 History tablet,extended release 24 hr pantoprazole 40 mg tablet,delayed 40 mg PO BID 05/22/25 05/22/25 History release potassium chloride 20 mEq 20 meq PO BID 05/22/25 05/22/25 History tablet,extended release thiamine HCl (vitamin B1) 100 mg 100 mg PO DAILY 05/22/25 05/22/25 History tablet Past Med/Surg History Problem List (Updated 05/22/25 @ 06:19 by Jeanna Dubon PA-C) CAP (community acquired pneumonia) (Acute) Acute exacerbation of chronic obstructive pulmonary disease (Acute) Distended abdomen CHARLENE (obstructive sleep apnea) Tobacco abuse counseling Acute cough Dyspnea on exertion Abdominal pain (Acute) Chronic anemia Anxiety Hx of pulmonary embolus dx 08/2022 - on Eliquis Chronic heart failure with preserved ejection fraction (HFpEF) Alcohol abuse (Acute) Acute and chronic respiratory failure with hypercapnia (Acute) COPD exacerbation (Acute) Hypomagnesemia (Acute) 11/20/23 Hypokalemia (Acute) 11/20/23 Tobacco use Pulmonary hypertension Methadone maintenance therapy patient GERD (gastroesophageal reflux disease) HTN (hypertension) COPD (chronic obstructive pulmonary disease) (Acute) Medical History (Updated 05/22/25 @ 06:19 by Jeanna Dubon PA-C) Dyspnea Viral pneumonia Positive blood culture Pneumonia due to hemophilus influenzae Opioid use disorder, severe, in sustained remission Cluster B personality disorder Alcohol use disorder, moderate, dependence MDD (major depressive disorder), recurrent episode, moderate Alcoholism /alcohol abuse Acute on chronic respiratory failure with hypoxemia Acute exacerbation of chronic obstructive pulmonary disease Symptomatic cholelithiasis Edema, peripheral 11/20/23 Frequent PVCs Bradycardia Acute on chronic respiratory failure with hypoxia and hypercapnia 08/23/23 History of alcohol abuse Sepsis due to pneumonia 08/23/23 Parainfluenza infection 08/23/23 Pneumonia 08/23/23 Encounter for pre-operative examination (~09/02/24) Pulmonary embolism dx 08/2022 - unknown the cause. treated with anticoagulants. Hypercapnic respiratory failure 09/13/22 Muscle cramp 09/13/22 PAC (premature atrial contraction) Frequent PVCs Acute hypoxemic respiratory failure 09/13/22 Edema of both lower extremities Difficult intravenous access Pulmonary hypertension Follow with [facility] History of pneumonia last episode 08/2023 when had the flu Methadone maintenance therapy patient been doing this since 2008 HTN (hypertension) History of alcohol abuse 2021, working on this issue. Down to three drinks a week GERD (gastroesophageal reflux disease) History of aspiration pneumonia 08/2022 from vomiting -- reports she "passed out and vomited while she was incoherent" per PAT RN COPD (chronic obstructive pulmonary disease) well controlled currently, uses 4lpm oxygen via n/c continuously Hx of sinus bradycardia episode when vitamin levels were low. no current issue History of endocarditis --- r/t IV drug use. S/P transesophageal echocardiogram (RENATA) Lung nodule monitoring Constipation On home oxygen therapy 4lpm via n/c daily Recurrent major depressive disorder Surgical History S/P right cataract extraction Status post total hip replacement, right Family History Other Family history non-contributory No family history of adverse response to anesthesia Social History Smoking Status: Current every day smoker Tobacco Type: Cigarettes Cigarettes Per Day: 3; Second Hand Exposure: No; Do You Dip or Chew Tobacco: No; Hx Alcohol Use: Yes Alcohol type: hard liquor Hx Substance Use: Yes (not currently using) Last Used Substance: Days (ago) Last Used Substance Other:: remote hx of cocaine and heroin use (2008); med marijuana ~3-4x/week now Substance Use Type Other:: methadone Preferred Language: Argentine Communication Ability: Effective Photo Print Specialist Required: No Beliefs That Will Affect Care: None Current Living Situation: Alone Feels Safe at Home: Yes Assistive Devices: Cane, Oxygen - Continuous and Walker Review of Systems Review of Systems: All systems reviewed & are unremarkable except as noted in HPI & below Physical Exam Physical Exam: General- Not in distress Head- atraumatic Eyes- EOMI ENT- oropharynx clear Neck- supple, no JVD. Lungs- clear to auscultation b/l wheezing present, no crackles Heart- regular rhythm; no murmur, no gallop. Abdomen- normal bowel sounds, soft, nontender, no distension Extremities- no pretibial edema, no erythema seen. Neuro- alert, oriented EOMI; no facial palsy; no dysarthria; moves extremities Results & Data Results & Data Vital Signs (Past 12 Hours) Vital Signs Temp Pulse Resp BP Pulse Ox O2 Del Method O2 Flow Rate 05/22/25 05:00 83 18 119/70 93 Nasal Cannula 4 05/22/25 04:54 100 H 16 93 Nasal Cannula 4 05/22/25 04:52 143/84 H 05/22/25 04:42 92 H 16 93 Nasal Cannula 4 05/22/25 04:24 93 H 16 124/82 05/22/25 04:21 94 H 15 05/22/25 04:14 96 Nasal Cannula 4 05/22/25 04:12 94 H 23 05/22/25 04:11 101 H 05/22/25 03:56 36.5 C 91 H 18 123/65 95 Nasal Cannula 4 Diagnostic Findings Laboratory Results WBC 15.33 K/ul (4.8-10.8) H 05/22/25 04:13 RBC 4.21 M/uL (4.20-5.40) 05/22/25 04:13 Hgb 11.5 g/dl (12.0-16.0) L 05/22/25 04:13 POC Hgb 13.3 g/dl (12.0-16.0) 05/22/25 04:24 Hct 37.4 % (37.0-47.0) 05/22/25 04:13 POC Hct 39 % (37-47) 05/22/25 04:24 MCV 88.8 fL (80.0-100.0) 05/22/25 04:13 MCH 27.3 pg (25.0-34.0) 05/22/25 04:13 MCHC 30.7 g/dL (32.0-36.0) L 05/22/25 04:13 RDW Std Deviation 44.2 fL (36.4-46.3) 05/22/25 04:13 RDW Coeff of Cee 13.7 % (11.5-14.5) 05/22/25 04:13 Plt Count 238 K/uL (130-400) 05/22/25 04:13 MPV 10.1 fL (9.4-12.4) 05/22/25 04:13 Immature Gran % (Auto) 0.8 % 05/22/25 04:13 Neut % (Auto) 83.9 % 05/22/25 04:13 Lymph % (Auto) 9.5 % 05/22/25 04:13 Taylor % (Auto) 4.9 % 05/22/25 04:13 Eos % (Auto) 0.7 % 05/22/25 04:13 Baso % (Auto) 0.2 % 05/22/25 04:13 Neut # (Auto) 12.87 K/uL (1.40-6.50) H 05/22/25 04:13 Lymph # (Auto) 1.45 K/uL (1.20-3.40) 05/22/25 04:13 Taylor # (Auto) 0.75 K/uL (0.11-0.59) H 05/22/25 04:13 Eos # (Auto) 0.11 K/uL (0.00-0.50) 05/22/25 04:13 Baso # (Auto) 0.03 K/uL (0.00-0.20) 05/22/25 04:13 Immature Gran # (Auto) 0.12 K/uL (0.01-0.20) 05/22/25 04:13 VBG pH 7.35 (7.36-7.41) L 05/22/25 04:13 VBG pCO2 60 mmHg (38-50) H 05/22/25 04:13 VBG pO2 29 mmHg 05/22/25 04:13 VBG HCO3 33 mmol/L 05/22/25 04:13 VBG O2 Saturation < 60.0 % 05/22/25 04:13 VBG Base Excess 5.6 mEq/L 05/22/25 04:13 POC Sodium 133 mmol/L (135-144) L 05/22/25 04:24 Sodium 134 mmol/L (136-145) L 05/22/25 04:13 POC Potassium 5.1 mmol/L (3.3-5.0) H 05/22/25 04:24 Potassium 4.3 mmol/L (3.5-5.1) 05/22/25 04:13 POC Chloride 97 mmol/L (101-112) L 05/22/25 04:24 Chloride 96 mmol/L (98-107) L 05/22/25 04:13 Carbon Dioxide 32 mmol/L (21-32) 05/22/25 04:13 POC Total CO2 32 mmol/L (24-31) H 05/22/25 04:24 Anion Gap 6 (3-11) 05/22/25 04:13 POC Anion Gap 10.0 mmol/L (16-25) L 05/22/25 04:24 POC BUN 13 mg/dl (7-18) 05/22/25 04:24 BUN 11 mg/dl (6-23) 05/22/25 04:13 Creatinine 0.89 mg/dl (0.6-1.2) 05/22/25 04:13 POC Creatinine 1.0 mg/dl (0.6-1.3) 05/22/25 04:24 Est Cr Clr Drug Dosing 89.5 ml/min 05/22/25 04:13 eGFR 75.57 05/22/25 04:13 BUN/Creatinine Ratio 12.4 (10-20) 05/22/25 04:13 Glucose 136 mg/dl (70-99(Fasting)) H 05/22/25 04:13 POC Glucose (other) 138 mg/dl (70-99) H 05/22/25 04:24 Lactate 1.3 mmol/L (0.4-2.0) 05/22/25 04:13 Calcium 9.8 mg/dl (8.6-10.3) 05/22/25 04:13 POC Ioniz Calcium [place] 1.03 mmol/l (1.12-1.32) L 05/22/25 04:24 Magnesium 1.9 mg/dl (1.7-2.4) 05/22/25 04:13 Total Bilirubin 0.8 mg/dl (0.2-1.0) 05/22/25 04:13 Direct Bilirubin TNP 05/22/25 04:13 AST 24 U/L (13-39) 05/22/25 04:13 ALT 43 U/L (7-52) 05/22/25 04:13 Alkaline Phosphatase 145 U/L (34-104) H 05/22/25 04:13 Troponin I High Sens 7.0 pg/ml (0-14) 05/22/25 04:13 Total Protein 8.2 gm/dl (6.0-8.3) 05/22/25 04:13 Albumin 4.1 gm/dl (3.4-5.0) 05/22/25 04:13 Procalcitonin Cancelled 05/22/25 04:13 Urine Color Yellow 05/22/25 04:13 Urine Appearance Clear (Clear) 05/22/25 04:13 Urine pH 7.5 (4.5-7.5) 05/22/25 04:13 Ur Specific [place] 1.008 (1.000-1.030) 05/22/25 04:13 Urine Protein Trace (Negative) H 05/22/25 04:13 Urine Glucose (UA) Negative (Negative) 05/22/25 04:13 Urine Ketones Negative (Negative) 05/22/25 04:13 Urine Blood Negative (Negative) 05/22/25 04:13 Urine Nitrite Negative (Negative) 05/22/25 04:13 Urine Bilirubin Negative (Negative) 05/22/25 04:13 Urine Urobilinogen Negative (Negative) 05/22/25 04:13 Ur Leukocyte Esterase Negative (Negative) 05/22/25 04:13 Urine WBC (Auto) 0-5 /hpf (0-5) 05/22/25 04:13 Urine RBC (Auto) 0-2 /hpf (0-2) 05/22/25 04:13 U Hyaline Cast (Auto) 0-2 /lpf (0-2) 05/22/25 04:13 U Epithel Cells (Auto) 3-5 /hpf (0-2) H 05/22/25 04:13 Urine Bacteria (Auto) None Seen (None Seen) 05/22/25 04:13 Urine Comment 05/22/25 04:13 Ethyl Alcohol mg/dL < 10.0 mg/dl (<10.0) 05/22/25 04:13 Adenovirus (PCR) Not Detected (NotDetected) 05/22/25 04:11 B. pertussis DNA (PCR) Not Detected (NotDetected) 05/22/25 04:11 B.parapertussis DNA PCR Not Detected (NotDetected) 05/22/25 04:11 C. pneumoniae DNA (PCR) Not Detected (NotDetected) 05/22/25 04:11 Coronavirus OC43 (PCR) Not Detected (NotDetected) 05/22/25 04:11 Coronavirus HKU1 (PCR) Not Detected (NotDetected) 05/22/25 04:11 Coronavirus 229E (PCR) Not Detected (NotDetected) 05/22/25 04:11 SARS-CoV-2 (PCR) Not Detected (NotDetected) 05/22/25 04:11 Coronavirus NL63 (PCR) Not Detected (NotDetected) 05/22/25 04:11 Human Metapneumovir PCR Not Detected (NotDetected) 05/22/25 04:11 Influenza Type A (PCR) Not Detected (NotDetected) 05/22/25 04:11 Influenza Type B (PCR) Not Detected (NotDetected) 05/22/25 04:11 M. pneumoniae (PCR) Not Detected (NotDetected) 05/22/25 04:11 Parainfluenza 1 (PCR) Not Detected (NotDetected) 05/22/25 04:11 Parainfluenza 2 (PCR) Not Detected (NotDetected) 05/22/25 04:11 Parainfluenza 3 (PCR) Not Detected (NotDetected) 05/22/25 04:11 Parainfluenza 4 (PCR) Not Detected (NotDetected) 05/22/25 04:11 RSV (PCR) Not Detected (NotDetected) 05/22/25 04:11 Entero/Rhino (PCR) Not Detected (NotDetected) 05/22/25 04:[address] 05/22/25 04:42 EXAM: CT chest diagnostic wo con CLINICAL HISTORY: fever/cough. TECHNIQUE: Contiguous axial images were obtained from the base of the neck through the upper abdomen without contrast. In addition, sagittal and coronal reconstructions were performed to potentially increase the sensitivity for the detection of disease. CT scan was performed according to ALARA (as low as reasonably achievable). COMPARISON: 12:16:00 [employer]. FINDINGS: Evidence of small, patchy ground-glass opacities is noted in both lungs, predominantly in the upper lobes. Bilbasilar atelectasis. Multiple clusters of centrilobular nodular infiltrates with a branching pattern are noted in the apicoposterior segment of the left upper lobe, lingula, and posterior basal segment of both lower lobes. The lungs are clear, with no focal areas of consolidation. Calcified nodule in right lung. The central airways are patent. There are no pleural effusions. No pneumothorax is seen. Evaluation of the mediastinum and triny is limited due to the lack of intravenous contrast. No axillary or mediastinal adenopathy is identified. The thyroid is unremarkable. The heart, aorta, and pulmonary arteries are of normal size and configuration. There are coronary artery and aortic atherosclerotic calcifications. No pericardial effusion is identified. Imaged portions of the upper abdomen are unremarkable. No aggressive-appearing osseous lesions are identified. IMPRESSION: Evidence of small, patchy ground-glass opacities is noted in both lungs, predominantly in the upper lobes.New finding. Multiple clusters of centrilobular nodular infiltrates with a branching pattern are noted in the apicoposterior segment of the left upper lobe, lingula, and posterior basal segment of both lower lobes, suggesting the possibility of endobronchial spread of disease or bronchiolitis. New finding. Bilbasilar atelectasis. Electronically signed by Issa Ashley 05-22-2025 06:03 AM ECG Additional Comments: ECG. Normal sinus rhythm rate is 96. Nonspecific ST abnormality. QTc 432 Code Status & VTE Plan VTE Prophylaxis Plan VTE Prophylaxis will be ordered: Yes
[2025-05-22] MEDS: NICOTINE 21 MG/24 HR TDSY TD SCH (08:22)
[2025-05-22] MEDS ORDERED: ALBUTEROL HFA 8 GM INHALER INH PRN (09:04)
[2025-05-22] MEDS ORDERED: NITROGLYCERIN SL 0.4 MG/TAB TAB SL PRN (09:04)
[2025-05-22] MEDS ORDERED: POLYETHYLENE (MIRALAX) 17 GM PACK PO PRN (09:04)
[2025-05-22] MEDS ORDERED: ALBUT/IPRATROP 3MG/0.5MG NEB 3 ML VIAL NEB PRN (09:04)
[2025-05-22] MEDS: FUROSEMIDE 40 MG TAB PO SCH (10:11)
[2025-05-22] MEDS: POTASSIUM CHLORIDE CRTAB 20 MEQ TABCR PO SCH (10:11)
[2025-05-22] MEDS: FAMOTIDINE 20 MG TAB PO SCH (10:11)
[2025-05-22] MEDS: ALBUT/IPRATROP 3MG/0.5MG NEB 3 ML VIAL NEB SCH (10:11)
[2025-05-22] MEDS: METHADONE ORAL SOLN 2 MG/ML PO SCH (10:14)
[2025-05-22] MEDS: APIXABAN 5 MG TABLET PO SCH (10:45)
[2025-05-22] MEDS: THIAMINE HCL 100 MG TAB PO SCH (10:45)
[2025-05-22] MEDS: METOPROLOL SUCC 25MG EXT REL TAB PO SCH (10:45)
[2025-05-22] MEDS: FOLIC ACID 1 MG TAB PO SCH (10:45)
[2025-05-22] MEDS: DOXYCYCLINE HYCLATE 100 MG in DEXTROSE 5% MINI-B 100 ML IV SCH (10:47)
--- NOTE | 2025-05-22 10:57 | Communication Note ---
Date of Service: May 22, 2025 Patient seen and examined Reports cough and SOB since the past few days Feeling better at this time On 4L NC at home CT chest noted small patchy GGO in both lungs Labs notable for leukocytosis Findings suggests Pneumonia Continue antibiotics Other plans as detailed in H/P
[2025-05-22] MEDS: REMOVE NICODERM PATCH SCH (13:34)
[2025-05-22] MEDS: PIPERACILLIN/TAZOBACTAM 4.5 GM/100 ML BAG IV SCH (13:37)
--- NOTE | 2025-05-22 16:50 | Electrocardiogram Report ---
Test Reason : Blood Pressure : */* mmHG Vent. Rate : 96 BPM Atrial Rate : 96 BPM P-R Int : 126 ms QRS Dur : 84 ms QT Int : 342 ms P-R-T Axes : 56 73 71 degrees QTcB Int : 432 ms Normal sinus rhythm Nonspecific ST abnormality Abnormal ECG When compared with ECG of 03-May-2025 06:16, Vent. rate has increased by [address] now depressed in Inferior leads Confirmed by Fabian Wayne ([id number]) on 05/22/2025 4:49:55 PM Referred By: REFERRED SELF Confirmed By: Fabian Wayne
[2025-05-22] MEDS: ACETAMINOPHEN 325 MG TAB PO PRN (18:23)
[2025-05-22] MEDS: LORazepam 0.5 MG TAB PO STA (20:42)
[2025-05-22] MEDS: MAGNESIUM OXIDE 400 MG TAB PO SCH (21:39)
[2025-05-23] MEDS: LORazepam Inj 0.25 MG in SYRINGE 0.125 ML IV STA (02:49)
[2025-05-23 06:28] LABS: Hematocrit (blood only) 29.7 % (37.0-47.0); Hemoglobin 9.6 g/dl (12.0-16.0); Mean Corpuscular Hemoglobin 28.3 pg (25.0-34.0); Mean Corpuscular Volume 87.6 fL (80.0-100.0); Platelet Count 221 K/uL (130-400); RDW Standard Deviation 42.0 fL (36.4-46.3); Red Blood Count 3.39 M/uL (4.20-5.40); White Blood Count 15.55 K/ul (4.8-10.8)
[2025-05-23 06:51] LABS: Immature Granulocytes # (auto) 0.12 K/uL (0.01-0.20); Immature Granulocytes % (auto) 0.8 %
[2025-05-23 06:58] LABS: Blood Urea Nitrogen 18.0 mg/dl (6-23); Chloride 98.0 mmol/L (98-107); Creatinine Clr Calc Pharmacy 74.6 ml/min; Magnesium 2.2 mg/dl (1.7-2.4); Potassium 4.8 mmol/L (3.5-5.1); Sodium 135.0 mmol/L (136-145)
[2025-05-23 06:59] LABS: Anion Gap 7.0 (3-11); Calcium 9.3 mg/dl (8.6-10.3); Carbon Dioxide 30.0 mmol/L (21-32)
[2025-05-23 07:05] LABS: Glucose 265.0 mg/dl (70-99(Fasting))
[2025-05-23] MEDS: PATIENT'S OWN CONTROLLED MED 2 PO SCH (08:12)
--- NOTE | 2025-05-23 09:16 | Electrocardiogram Report ---
Test Reason : Blood Pressure : */* mmHG Vent. Rate : 68 BPM Atrial Rate : 68 BPM P-R Int : 140 ms QRS Dur : 84 ms QT Int : 416 ms P-R-T Axes : 54 69 81 degrees QTcB Int : 442 ms Normal sinus rhythm Normal ECG When compared with ECG of 22-May-2025 04:10, No significant change was found Confirmed by Fabian Wayne ([id number]) on 05/23/2025 9:16:34 AM Referred By: REFERRED SELF Confirmed By: Fabian Wayne
--- NOTE | 2025-05-23 09:29 | Hospitalist Progress Note ---
Date of Service May 23, 2025 Assessment & Plan (1) Acute exacerbation of chronic obstructive pulmonary disease: Plan: 59-year-old female with past medical history significant for hypokalemia, COPD, on home oxygen 4 L, history of pulmonary emboli, hypertension, GERD, history of KARLA, lumbar degenerative disease, osteoarthritis, restless leg syndrome, history of anemia, methadone maintenance therapy, substance abuse in remission, ongoing tobacco abuse, depression, alcoholism comes in because of shortness of breath and cough. Patient was recently in the hospital for acute on chronic respiratory failure with hypercapnia and hypoxia and COPD exacerbation and completed Doxy and Augmentin course and discharged on 05/07/2025. , patient says she is taking all her medications. Acute on chronic respiratory failure Pneumonia COPD exacerbation CT chest noted small patchy ground glass opacities both lungs predominantly upper lobes, Possibility endobronchial spread of disease of bronchiolitis Continue Zosyn and doxycycline Solumedrol changed to prednisone Change scheduled duoneb to prn (reports tremulous with nebs and no longer wheezing) Flutter Currently on her baseline oxygen 4L Generalized anxiety disorder During that admission she was also seen by psychiatry for anxiety and was prescribed clonidine and aripiprazole EKG checked. Hydroxyzine increased to 50mg tid prn. Monitor QTc History of alcoholism States not drinking since May 01, 2025 Continue thiamine and folic acid Tobacco abuse Currently smoking 2-3 cigarettes daily Counseled regarding smoking cessation History of heart failure with preserved ejection fraction Continue home Lasix and metoprolol succinate Hypertension Metoprolol succinate, amlodipine and Lasix Will monitor History of PE On Eliquis GERD On Protonix and famotidine Chronic pain History of substance abuse in remission On methadone DVT prophylaxis Eliquis Full code. I spent a total of 55 minutes coordinating, documenting and providing care for this patient excluding time spent in performance of separately billed services Admission and Anticipated Discharge Date Admission Date: May 22, 2025 Subjective Patient seen and examined Reports feeling a bit better today Still coughing and feels SOB is improving No wheezing or chest pain Feels anxious Physical Exam Constitutional: no acute distress Eyes: PERRL, conjunctivae normal, anicteric sclerae ENMT: external ear and nose normal, oropharynx normal Respiratory: Not in resp distress, on 4L NC, diminished breath sounds, no wheeze Cardiovascular: Rate/Rhythm: regular rate and regular rhythm Gastrointestinal (Abdomen): normal bowel sounds, soft, nontender, no hepatosplenomegaly Musculoskeletal: No pedal edema Neurologic: PERRL, EOMI, accommodation nl, no face palsy, no dysarthria Psychiatric: A+Ox3, euthymic affect Results & Data Results & Data Vital Signs (Past 12 Hours) Vital Signs Temp Pulse Pulse Resp BP Pulse Ox O2 Del Method 05/23/25 08:12 36.4 C L 68 20 109/66 93 Nasal Cannula 05/23/25 07:20 80 16 93 Nasal Cannula 05/23/25 07:16 58 L 05/23/25 03:50 36.5 C 65 20 110/54 L 93 Nasal Cannula 05/23/25 00:21 36.4 C L 75 20 119/65 95 Nasal Cannula 05/22/25 21:45 76 05/22/25 21:45 Nasal Cannula O2 Flow Rate 05/23/25 08:12 4 05/23/25 07:20 4 05/23/25 07:16 05/23/25 03:50 4 05/23/25 00:21 4 05/22/25 21:45 05/22/25 21:45 4 Laboratory Results Abnormal lab results 05/23/25 Range/Units 05:51 WBC 15.55 H (4.8-10.8) K/ul RBC 3.39 L (4.20-5.40) M/uL Hgb 9.6 L (12.0-16.0) g/dl Hct 29.7 L (37.0-47.0) % Neut # (Auto) 14.47 H (1.40-6.50) K/uL Lymph # (Auto) 0.48 L (1.20-3.40) K/uL Sodium 135 L (136-145) mmol/L Glucose 265 H (70-99(Fasting)) mg/dl
[2025-05-23] MEDS: SODIUM CHLOR 7% 4 ML NEB ONE (11:31)
[2025-05-23] MEDS: SODIUM CHLOR 7% 4 ML NEB NEB SCH (11:51)
--- NOTE | 2025-05-23 14:09 | Electrocardiogram Report ---
Test Reason : Blood Pressure : */* mmHG Vent. Rate : 68 BPM Atrial Rate : 68 BPM P-R Int : 130 ms QRS Dur : 84 ms QT Int : 410 ms P-R-T Axes : 54 60 60 degrees QTcB Int : 435 ms Normal sinus rhythm with sinus arrhythmia Normal ECG When compared with ECG of 22-May-2025 16:54, No significant change was found Confirmed by Fabian Wayne ([id number]) on 05/23/2025 2:09:23 PM Referred By: REFERRED SELF Confirmed By: Fabian Wayne
[2025-05-23] MEDS: ALBUT/IPRATROP 3MG/0.5MG NEB 3 ML VIAL NEB SCH (20:01)
[2025-05-23] MEDS: DOXYCYCLINE HYCLATE 100 MG CAP PO SCH (20:25)
[2025-05-23] MEDS: LORazepam 0.5 MG TAB PO STA (20:30)
[2025-05-23] MEDS: ALBUT/IPRATROP 3MG/0.5MG NEB 3 ML VIAL NEB PRN (23:52)
[2025-05-24 07:26] VITALS: RESP 18
[2025-05-24 07:59] VITALS: TEMP 98.2
[2025-05-24] MEDS: predniSONE 20 MG TAB PO SCH (08:02)
[2025-05-24 10:37] LABS: Hematocrit (blood only) 34.1 % (37.0-47.0); Hemoglobin 10.3 g/dl (12.0-16.0); Mean Corpuscular Hemoglobin 27.2 pg (25.0-34.0); Mean Corpuscular Volume 90.2 fL (80.0-100.0); Platelet Count 308 K/uL (130-400); RDW Standard Deviation 45.0 fL (36.4-46.3); Red Blood Count 3.78 M/uL (4.20-5.40); White Blood Count 10.21 K/ul (4.8-10.8)
[2025-05-24 10:50] LABS: Anion Gap 6.0 (3-11); Blood Urea Nitrogen 22.0 mg/dl (6-23); Calcium 9.4 mg/dl (8.6-10.3); Carbon Dioxide 34.0 mmol/L (21-32); Chloride 99.0 mmol/L (98-107); Creatinine Clr Calc Pharmacy 56.3 ml/min; Glucose 158.0 mg/dl (70-99(Fasting)); Potassium 4.7 mmol/L (3.5-5.1); Sodium 139.0 mmol/L (136-145)
--- NOTE | 2025-05-24 11:32 | Discharge Summary ---
Date of Service May 24, 2025 Admission HPI Per Admitting Provider 59-year-old female with past medical history significant for hypokalemia, COPD, on home oxygen 4 L, history of pulmonary emboli, hypertension, GERD, history of KARLA, lumbar degenerative disease, osteoarthritis, restless leg syndrome, history of anemia, methadone maintenance therapy, substance abuse in remission, ongoing tobacco abuse, depression, alcoholism comes in because of shortness of breath and cough. Patient was recently in the hospital for acute on chronic respiratory failure with hypercapnia and hypoxia and COPD exacerbation and completed Doxy and Augmentin course and discharged on 05/07/2025. During that admission she was also seen by psychiatry for anxiety and was prescribed clonidine and aripiprazole, patient says she is taking all her medications. For last couple days patient developed cough with fevers and shortness of breath which prompted her come to the ER. She states bringing brownish-yellowish phlegm. She is chronically on 4 L oxygen. Has headaches. No runny nose. Has some sore throat. Vision is okay. Has some dizziness. Denies chest pain. No abdominal pain. Says micturating a lot. Normal bowel movements. Patient says since she was admitted last time she is not drinking alcohol. Still smoking 2 cigarettes daily. Hemodynamics are okay. Past medical history. As mentioned above Past surgical history. Right total hip replacement. Social history. . Used to smoke 2 packs a day for 40 years. Currently smoking 2 cigarettes daily. Patient says since last admit on 05/01- patient is not drinking alcohol. History of heroin abuse currently on met hadone. Family history. Mother had adenocarcinoma brain tumor. Sister had heart disease. Brother has hypertension. Admission Exam Per Admitting Provider General- Not in distress Head- atraumatic Eyes- EOMI ENT- oropharynx clear Neck- supple, no JVD. Lungs- clear to auscultation b/l wheezing present, no crackles Heart- regular rhythm; no murmur, no gallop. Abdomen- normal bowel sounds, soft, nontender, no distension Extremities- no pretibial edema, no erythema seen. Neuro- alert, oriented EOMI; no facial palsy; no dysarthria; moves extremities Principal Diagnosis Pneumonia COPD exacerbation Discharge Exam Constitutional no acute distress Eyes PERRL, conjunctivae normal, anicteric sclerae ENMT external ear and nose normal, oropharynx normal Respiratory Not in respiratory distress, diminished breath sounds, on nasal cannula Cardiovascular Rate/Rhythm: regular rate and regular rhythm Gastrointestinal (Abdomen) normal bowel sounds, soft, nontender, no hepatosplenomegaly Neurologic PERRL, EOMI, accommodation nl, no face palsy, no dysarthria Psychiatric A+Ox3, euthymic affect Discharge Data Allergies Allergy/AdvReac Type Severity Reaction Status Date / Time buspirone [From BuSpar] Allergy Mild Rash Verified 05/01/25 15:29 fluticasone furoate AdvReac Intermediate INTENSE Verified 05/01/25 15:29 [From Trelegy Ellipta] HEADACHES gabapentin AdvReac Intermediate crazy Verified 05/01/25 15:29 umeclidinium AdvReac Intermediate INTENSE Verified 05/01/25 15:29 [From Trelegy Ellipta] HEADACHES vilanterol AdvReac Intermediate INTENSE Verified 05/01/25 15:29 [From Trelegy Ellipta] HEADACHES sertraline AdvReac Mild NAUSEATED Verified 05/01/25 15:29 olive oil AdvReac Unknown reacts Verified 05/01/25 15:29 with methadone Consultations 05/22/25 05:13 ED Decision to Admit Stat Ordered Studies 05/22/25 04:42 CT chest diagnostic wo con Stat Hospital Course (1) Acute exacerbation of chronic obstructive pulmonary disease: 59-year-old female with past medical history significant for hypokalemia, COPD, on home oxygen 4 L, history of pulmonary emboli, hypertension, GERD, history of KARLA, lumbar degenerative disease, osteoarthritis, restless leg syndrome, history of anemia, methadone maintenance therapy, substance abuse in remission, ongoing tobacco abuse, depression, alcoholism comes in because of shortness of breath and cough. Patient was recently in the hospital for acute on chronic respiratory failure with hypercapnia and hypoxia and COPD exacerbation and completed Doxy and Augmentin course and discharged on 05/07/2025. Acute on chronic respiratory failure Pneumonia COPD exacerbation CT chest noted small patchy ground glass opacities both lungs predominantly upper lobes, Possibility endobronchial spread of disease of bronchiolitis Required increased oxygen in ER Patient was started on Zosyn and doxycycline She was also started on nebs and steroid Patient's symptoms improved today. Reports she feels well enough to go home 2 step does not show any increase in baseline oxygen requirement of 4L Discharged on Augmentin 875mg BID, Doxycycline 100mg BID and prednisone 40mg daily for 2 more days to complete treatment Generalized anxiety disorder During that admission she was also seen by psychiatry for anxiety and was prescribed clonidine and aripiprazole History of alcoholism States not drinking since May 01, 2025 Continue thiamine and folic acid Tobacco abuse Currently smoking 2-3 cigarettes daily Counseled regarding smoking cessation Discharged on nicotine patch per patient's request History of heart failure with preserved ejection fraction Continue home Lasix and metoprolol succinate Hypertension Metoprolol succinate, amlodipine and Lasix History of PE On Eliquis GERD On Protonix and famotidine Chronic pain History of substance abuse in remission On methadone Total Time Total Time Spent Total Time Spent (In Minutes): 40 Total Time Includes: Examination of the Patient, Discharge Planning and Medication Reconciliation Discharge Plan Discharge Items Patient Disposition: Home - Self-Care Reason For Visit: Cough, Shortness of breath Discharge Diagnosis: Pneumonia COPD exacerbation Condition on Discharge: Good Activity: Resume your previous activity Non-emergency contact: Primary Care Provider and Display Fabricator Call non-emergency contact if: you have any medication questions and your symptoms worsen Follow-up/Referrals: Huan Branham MD [Outside Practitioners] - 06/14/25 11:30 am Bernice Mueller PA-C [Primary Care Provider] - (Date & Time 05/28/2025 9:20 AM Provider: Bernice Mueller PA-C [facility]) Diet: Heart Healthy Addtl Attending Provider Instructions: Mrs Flores You were hospitalized and managed for the above listed diagnoses You are being discharged on 2 more days of antibiotics and steroid. Please ensure follow up with your Primary Doctor and Display Fabricator. It was a pleasure taking care of you Pending Studies at Discharge: No Stand-Alone Forms: My [facility] [address], Smoking Cessation Medications and DC Order Prescriptions: New doxycycline hyclate 100 mg Capsule 100 mg PO BID 2 Days Qty: 4 0RF prednisone 20 mg Tablet 40 mg PO DAILY 2 Days Qty: 4 0RF nicotine [Nicoderm CQ] 21 mg/24 hr Patch 24 Hour 1 patch transdermal QAM Qty: 28 0RF amoxicillin-pot clavulanate 875-125 mg tablet 1 tab PO BID 2 Days Qty: 4 0RF Continued furosemide 40 mg tablet 40 mg PO DAILY clonidine HCl 0.1 mg tablet 0.1 mg PO HS methadone 10 mg/5 mL Solution 100 mg PO DAILY thiamine HCl (vitamin B1) 100 mg tablet 100 mg PO DAILY famotidine 20 mg tablet 20 mg PO BID magnesium oxide 400 mg (241.3 mg magnesium) tablet 400 mg PO HS amlodipine 10 mg tablet 10 mg PO DAILY pantoprazole 40 mg tablet,delayed release (DR/EC) 40 mg PO BID folic acid 1 mg Tablet 1 mg PO DAILY hydroxyzine HCl 25 mg tablet 25 mg PO TID PRN (Reason: Anxiety) metoprolol succinate 25 mg tablet extended release 24 hr 12.5 mg PO BID albuterol sulfate 90 mcg/actuation HFA aerosol inhaler 2 inh INHALATION Q6H PRN (Reason: Shortness Of Breath Or Wheezing) aripiprazole 2 mg tablet 2 mg PO HS Eliquis 5 mg tablet 5 mg PO BID potassium chloride 20 mEq tablet extended release 20 meq PO BID budesonide-formoterol 160-4.5 mcg/actuation Hfa Aerosol Inhaler 2 puff INHALATION BID Discharge Orders: Discharge Order (Routine); Ordered 05/24/25 Ordered By: Billie Altamirano Admission Data Admit Date/Time: 05/22/25 05:57 Attending Provider: Billie Altamirano I. Admit Provider: Alo Jason Primary Care Provider: Bernice Mueller Other Providers: Alo Jason Other Interventions: Discharge Summary Assessment (RN) Last Done: 05/24/25 11:35
[2025-05-24 11:36] VITALS: BP 128/71; PULSE 73; O2SAT 96
== END 2025-05-24 12:00 | disposition home or self-care (01) | DRG 189 ==
LOC: ED 03:52 → EDINP 05:57 → 2N 12:37